=== PATIENT | female | born 1955 | race Caucasian/White ===

== ENCOUNTER 2017-06-13 11:06 | Outpatient (RCR) | payer OTHER, MEDICAID, SELFPAY ==
--- NOTE | 2017-06-12 15:16 | PT.OTN ---
On June 12, 2017 our therapy services consisting of Speech, Occupational, and Physical therapy transitioned from [employer] electronic documentation system to a new [employer] electronic system. All documentation prior to June 12 can be found under [employer] saved data. From June 12 forward, all medical record documentation will be in [employer] 6.1.
--- NOTE | 2017-06-13 16:03 | PT.OTN ---
Current Diagnoses Chronic tension-type headache, not intractable (06/13/17) Other cervical disc degeneration, unspecified cervical region (06/13/17) Fibromyalgia (06/13/17) Physical Therapy Treatment Note PT-OP-A Visit Information Start: 06/13/17 14:13 Freq: Status: Active Protocol: Activity Type Activity Date Activity User E-Sign Co-Sign Detail Recorded Client Recorded Date Recorded By Document 06/13/17 14:16 AMB [email or web address] 06/13/17 14:17 AMB 06/13/17 14:16 Out-Patient Physical Therapy Visit Information [Visit Information] -Visit Type Treatment Note -Visit Start Time 11:25 -Visit Stop Time 12:05 -Total Visit Minutes 40 -Visit Number 16 [Evaluation Information] -Evaluation Date 03/29/17 PT-OP-C Subjective Start: 06/13/17 14:13 Freq: Status: Active Protocol: Activity Type Activity Date Activity User E-Sign Co-Sign Detail Recorded Client Recorded Date Recorded By Document 06/13/17 14:20 AMB [email or web address] 06/13/17 14:25 AMB 06/13/17 14:20 OP-PT Subjective [Patient Comments] -Patient Comments The patient states her headaches are better, but her neck pain continues. She has a new caregiver and had to explain a lot to her yesterday which increased her pain. OP-PT Pain Assessment [Location] 1 -Pain Location Details C5-T2 -Intensity 5 -Scale Used Numeric (1 - 10 ) -Description- Other Pain at worst: 6, at best 1-2 PT-OP-F Manual Assessment Start: 06/13/17 14:13 Freq: Status: Active Protocol: Activity Type Activity Date Activity User E-Sign Co-Sign Detail Recorded Client Recorded Date Recorded By Document 06/13/17 15:58 AMB [email or web address] 06/13/17 16:03 AMB 06/13/17 15:58 Manual Assessments [Soft Tissue Assessment] -Soft Tissue Mobility Assessment Tenderness and tightness throughout posterior cervical and scapular muscles. PT-OP-J Posture/Palpation/Skin Start: 06/13/17 14:13 Freq: Status: Active Protocol: Activity Type Activity Date Activity User E-Sign Co-Sign Detail Recorded Client Recorded Date Recorded By Document 06/13/17 15:58 AMB [email or web address] 06/13/17 16:03 AMB 06/13/17 15:58 Posture Evaluation [Position] Sitting -Head/C-Spine Posture Forward Head PT-OP-K Range of Motion Start: 06/13/17 14:13 Freq: Status: Active Protocol: Activity Type Activity Date Activity User E-Sign Co-Sign Detail Recorded Client Recorded Date Recorded By Document 06/13/17 15:31 AMB [email or web address] 06/13/17 15:34 AMB 06/13/17 15:31 Cervical Spine Range of Motion [Cervical Spine] Active Degrees -Testing Position Sitting -Flexion 40 -Extension 30 -Rotation Left 55 -Rotation Right 55 -ROM Limitations Soft Tissue Tightness PT-OP-Q Treatments Start: 06/13/17 14:13 Freq: Status: Active Protocol: Activity Type Activity Date Activity User E-Sign Co-Sign Detail Recorded Client Recorded Date Recorded By Document 06/13/17 15:40 AMB [email or web address] 06/13/17 15:58 AMB 06/13/17 15:40 Therapeutic Exercises [Sitting Exercises] 2 -Sitting Exercise Name levator scapula stretch -Reps/Minutes 30seconds x 2 1 -Sitting Exercise Name cervical isometrics -Side bilateral -Resistance 25% -Reps/Minutes 10 minutes -Comments flexion, extension, sidebending, rotation Manual Therapy Treatment [Soft Tissue Mobilization] 1 -Body Location Cervical spine -Mobilization Type Myofascial Release -Intensity/Depth Moderate -Body Position Sitting [Joint Mobilizations] 1 -Joint C5-T2 -Direction PA -Grade III -Body Position Sitting PT-OP-T Assessment and Plan Start: 06/13/17 14:13 Freq: Status: Active Protocol: Activity Type Activity Date Activity User E-Sign Co-Sign Detail Recorded Client Recorded Date Recorded By Document 06/13/17 14:25 AMB [email or web address] 06/13/17 14:32 AMB 06/13/17 14:25 Physical Therapy Assessment [Goals] 4 -Impairment HEP -Short Term Goal (STG) Partially met 3 -Impairment Posture -Short Term Goal (STG) Met 2 -Impairment Headaches -Short Term Goal (STG) Met 1 -Impairment ROM -Short Term Goal (STG) Not met [Assessment Summary] -Assessment The patient has improved slightly, but lately has plateaued. She finds it difficult to perform some exercises. She is hoping to improve her function with massage therapy . Physical Therapy Plan [Discharge Physical Therapy] -Discharge Comments End of insurance authorization
== END 2017-07-18 16:23 ==
LOC: PHYS 11:06
PROVIDERS: Family Provider Internal Medicine; PCP Internal Medicine; Visit Provider Internal Medicine
DX: M50.30 Other cervical disc degeneration, unspecified cervical region (principal); G44.229 Chronic tension-type headache, not intractable; M79.7 Fibromyalgia
CPT/HCPCS: 97110; 97140

== ENCOUNTER → 2017-08-02 12:00 | Oncology outpatient (ONC) | payer OTHER, SELFPAY ==
[2017-07-30 11:28] VITALS: BP 131/79; PULSE 76; RESP 18; TEMP 36.6
[2017-07-30] MEDS: METOCLOPRAMIDE 10 MG in SODIUM CHLORIDE 0.9% 50 ML 208 ML IV (11:51)
[2017-07-30] MEDS: DIHYDROERGOTAMINE 1 MG/ML AMPUL IV (12:41)
[2017-07-30] MEDS: VALPROIC ACID 1,000 MG in SODIUM CHLORIDE 0.9% 50 ML 60 ML IV (13:06)
[2017-07-30] MEDS: PRAMIPEXOLE 0.25 MG TABLET 0.75 MG PO (14:15)
[2017-07-30] MEDS: MAGNESIUM SULFATE 1 GM in SODIUM CHLORIDE 0.9% 100 ML 102 ML IV (14:43)
[2017-07-31 13:18] VITALS: BP 140/76; PULSE 83; RESP 16; TEMP 36.8; O2SAT 97
[2017-07-31] MEDS: METOCLOPRAMIDE 10 MG in SODIUM CHLORIDE 0.9% 50 ML 208 ML IV (13:23)
[2017-07-31] MEDS: DIHYDROERGOTAMINE 1 MG/ML AMPUL IV (14:09)
[2017-07-31] MEDS: VALPROIC ACID 1,000 MG in SODIUM CHLORIDE 0.9% 50 ML 60 ML IV (14:16)
[2017-07-31] MEDS: PRAMIPEXOLE 0.25 MG TABLET 0.75 MG PO (14:46)
[2017-08-02 12:17] VITALS: BP 139/89; PULSE 85; RESP 16; TEMP 37.3
[2017-08-02] MEDS: METOCLOPRAMIDE 10 MG in SODIUM CHLORIDE 0.9% 50 ML 208 ML IV (12:36)
[2017-08-02] MEDS: DIHYDROERGOTAMINE 1 MG/ML AMPUL IV (13:19)
[2017-08-02] MEDS: VALPROIC ACID 1,000 MG in SODIUM CHLORIDE 0.9% 50 ML 60 ML IV (13:29)
== END ==
PROVIDERS: Family Provider Internal Medicine; PCP Internal Medicine; Visit Provider Specialist
DX: G43.711 Chronic migraine without aura, intractable, with status migrainosus (principal); E86.9 Volume depletion, unspecified; R11.2 Nausea with vomiting, unspecified
CPT/HCPCS: 96365; 96367; 96374; 96375; J1110; J2765; J3475

== ENCOUNTER 2017-08-10 21:19 | Emergency (ER) | payer OTHER, MEDICAID, SELFPAY ==
[2017-08-10 21:32] VITALS: BP 131/70; PULSE 83; RESP 15; TEMP 36.8; O2SAT 98; BMI 26.9
--- NOTE | 2017-08-10 22:06 | ED.HA ---
HPI - Headache General Chief Complaint: Headache Stated Complaint: migraine Time Seen by Provider: 08/10/17 22:06 Source: patient and family Mode of arrival: ambulatory Limitations: no limitations History of Present Illness HPI Narrative: 61-year-old female with extensive history of chronic headaches, under the management of local headache specialists presents with a typical migraine for which is global in nature and gradual in onset in the absence of other neurologic symptoms such as blurred vision, numbness, tingling or weakness. Patient receives IV infusions an outpatient basis and has recently had dihydroergotamine as well as magnesium. She has recently run out of her sumatriptan and. Complaint: headache and migraine Onset (ago): day(s) Onset description: gradual Severity: severe Quality: aching and throbbing Relieving factors: nothing Exacerbating factors: none Treatments prior to arrival: migraine medication Related Data Home Medications Medication Instructions Recorded Confirmed estradiol 0.25 mg PO Q DAY #0 06/22/10 08/06/17 omeprazole 40 mg PO BID #0 11/11/10 08/06/17 pramipexole [Mirapex] 0.75 mg PO HS #0 08/30/16 08/06/17 ibuprofen 800 mg tablet 800 mg PO TID 06/18/17 08/06/17 vitamin B complex tablet 1 tab PO DAILY 08/06/17 08/06/17 Previous Rx's Medication Instructions Recorded diazepam 5 mg OR BIDP PRN #60 tab 04/19/17 trazodone 100 - 150 mg PO HS #45 tab 05/31/17 lamotrigine 100 mg tablet 100 mg PO Q DAY #30 tab 07/17/17 gabapentin 600 mg tablet 600 mg PO QIDP PRN #120 tab 07/24/17 sumatriptan 25 mg tablet 25 mg PO .COMPLEX #12 tab 07/24/17 sertraline 100 mg tablet See Label Instructions PO DAILY 07/27/17 #30 tab sumatriptan succinate 25 mg PO Q2-4H PRN #20 tab 08/10/17 Allergies Allergy/AdvReac Type Severity Reaction Status Date / Time Penicillins [PENICILLINS] Allergy Severe RASH Verified 08/10/17 21:32 Sulfa (Sulfonamide Allergy Severe RASH Verified 08/10/17 21:32 Antibiotics) [SULFA (SULFONAMIDE ANTIBIOTICS)] sulfamethoxazole Allergy Intermediate RASH Verified 08/10/17 21:32 [From SEPTRA] trimethoprim [From SEPTRA] Allergy Intermediate RASH Verified 08/10/17 21:32 azithromycin Allergy Unknown Verified 08/10/17 21:32 [From ZITHROMAX Z-MARILYN] morphine [MORPHINE] Allergy Unknown FAINTED Verified 08/10/17 21:32 ciprofloxacin [From Cipro] Allergy Verified 08/10/17 21:32 Review of Systems Review of Systems All systems reviewed & are unremarkable except as noted in HPI and below Constitutional Denies chills, Denies fever(s), Reports headache(s), Denies lethargy and Denies weakness Eyes Denies change in vision, Denies eye discharge, Denies irritation and Denies loss of vision ENT Ears, Nose, Mouth, and Throat: Denies change in voice, Reports headache(s), Denies neck pain and Denies sore throat Cardiovascular Denies chest pain, Denies irregular heart rhythm, Denies lightheadedness, Denies palpitations, Denies dyspnea, Denies dyspnea on exertion and Denies orthopnea Respiratory Denies cough, Denies dyspnea, Denies dyspnea on exertion and Denies wheezing Gastrointestinal Gastrointestinal: Denies abdominal pain, Denies change in bowel habits, Denies diarrhea, Denies nausea and Denies vomiting Genitourinary Denies hematuria, Denies flank pain, Denies urinary incontinence and Denies urinary urgency Musculoskeletal Denies neck pain Integumentary/Breasts Denies pruritus, Denies erythema, Denies rash and Denies wounds Neurologic Denies confusion, Reports headache(s), Denies loss of vision and Denies weakness Psychiatric Denies anxiety, Denies confusion, Denies depression, Denies homicidal ideation and Denies suicidal ideation Endocrine Denies palpitations Hematologic/Lymphatic Denies easy bruising Allergic/Immunologic Denies wheezing [facility] Social History Smoking Status: Never smoker Exam Initial Vital Signs Initial Vital Signs: Vital Signs Temperature 98.2 F 08/10/17 21:32 Pulse Rate 83 08/10/17 21:32 Respiratory Rate 15 08/10/17 21:32 Blood Pressure 131/70 H 08/10/17 21:32 Pulse Oximetry 98 08/10/17 21:32 Const General: cooperative and well developed Nutritional Appearance: well nourished Orientation: alert, awake, oriented x3 and not confused HENOR Head: normocephalic and atraumatic Ears: external ears normal and TM's normal bilaterally Nose: external nose normal and No nasal discharge Face and sinus: sinuses nontender, face symmetric, no sinus tenderness and No dry mucous membranes Mouth: oral mucosae normal and moist mucous membranes Teeth and gingiva: dentition normal Throat: tonsils normal and uvula midline Eyes General: appearance normal, both eyes and all related structures Eyelids: eyelids normal Conjunctivae: conjunctivae normal Sclera: sclerae normal Pupils: PERRL EOM: EOM intact bilaterally Neck Neck: normal visual inspection, trachea midline, No lymphadenopathy, No midline deformity and No JVD Lymphatic: No lymphedema Chest Chest: normal inspection of the chest Resp Effort & Inspection: normal respiratory effort, able to speak in complete sentences, no respiratory distress and no use of accessory muscles Auscultation: clear to auscultation bilaterally, no rales, no rhonchi and no wheezes Cardio Rate: regular rate Rhythm: regular rhythm Heart Sounds: no click, no gallops, no murmurs and no rubs Pulses: normal peripheral pulses GI Inspection: non-distended Palpation: soft, no hepatosplenomegaly, No guarding, No pulsatile mass and No tender Auscultation: normal bowel sounds Back/Spine/Pelvis Back: No CVA tenderness Cervical Spine: cervical ROM normal and No pain with cervical ROM Thoracic/Lumbar Spine: thoracic and lumbar spine normal to inspection Skin General: no rashes or lesions noted, No jaundice and No petechiae Neuro General: alert, oriented x3, gait normal and no focal motor deficits Speech: speech normal Extrem General: full ROM, no clubbing, cyanosis or edema, no pedal edema and no calf tenderness Psych Appearance: well kempt Mental Status: mental status grossly normal Attitude: cooperative Thought Content: normal and suicidality Judgment: judgment good Course Orders Ordered: Discontinued Medications Dexamethasone (Decadron) 10 mg IV NOW ONE Stop: 08/10/17 22:17 Last Admin: 08/10/17 23:09 Dose: 10 mg Sodium Chloride (Normal Saline 0.9%) 1,000 mls @ 1,000 mls/hr IV BOLUS ONE Stop: 08/10/17 23:15 Last Infusion: 08/11/17 00:28 Dose: 0 mls/hr Admin: 08/10/17 23:09 Dose: 1,000 mls/hr Ketorolac Tromethamine (Toradol) 15 mg IV NOW ONE Stop: 08/10/17 22:17 Last Admin: 08/10/17 23:08 Dose: 15 mg Prochlorperazine (Compazine) 10 mg IV NOW ONE Stop: 08/10/17 22:19 Last Admin: 08/10/17 23:09 Dose: 10 mg Sumatriptan Succinate (Imitrex) 6 mg SUBCUT NOW ONE Stop: 08/10/17 22:50 Last Admin: 08/10/17 23:09 Dose: 6 mg Reevaluation(s) Reevaluation #1: Near complete resolution of symptoms after above-stated therapies Vital Signs - 8 hr 08/10/17 21:32 08/10/17 22:58 08/11/17 00:36 Temperature 98.2 F 98.0 F Pulse Rate 83 80 82 Respiratory Rate 15 16 18 Blood Pressure 131/70 H 130/60 H Blood Pressure [Left Arm] 124/55 H Pulse Oximetry 98 97 97 Discharge Plan Departure Patient Disposition: Home, Self-Care Clinical Impression: Migraine Discharge Date/Time: 08/11/17 00:38 Interventions: ED Discharge Assessment Last Done: 08/11/17 00:36 Instructions: DI for Migraine Activity Restrictions/Additional Instructions: There is no evidence of an emergent or life threatening illness at this time, but follow up with your doctor in 1-2 days is recommended nonetheless to continue to rule out serious underlying causes of your symptoms. Please call the office for an appointment. Please return to the Emergency Department for any worsening or persistent symptoms. Please take medications as directed. prescription for sumatriptan has been electronically transmitted to [facility] Prescriptions: New sumatriptan succinate 25 mg tablet 25 mg PO Q2-4H PRN (Reason: migraine headache) Qty: 20 RF: 0 No Action vitamin B complex [B Complex-Vitamin B12] tablet 1 tab PO DAILY RF: 0 estradiol 0.5 MG tablet 0.25 mg PO Q DAY Qty: 0 RF: 0 omeprazole 40 MG capsule,delayed release(DR/EC) 40 mg PO BID Qty: 0 RF: 0 pramipexole [Mirapex] 0.75 MG tablet 0.75 mg PO HS Qty: 0 RF: 0 diazepam 5 MG tablet 5 mg OR BIDP PRNQty: 60 RF: 1 trazodone 100 MG tablet 100 - 150 mg PO HS Qty: 45 RF: 2 lamotrigine [Lamictal] 100 mg tablet 100 mg PO Q DAY Qty: 30 RF: 1 gabapentin [Neurontin] 600 mg tablet 600 mg PO QIDP PRN (Reason: anxiety/sleep) Qty: 120 RF: 1 sertraline 100 mg tablet See Label Instructions PO DAILY Qty: 30 RF: 0 sumatriptan succinate 25 mg tablet 25 mg PO .COMPLEX Qty: 12 RF: 11 ibuprofen 800 mg tablet 800 mg PO TID RF: 0
[2017-08-10 22:58] VITALS: BP 124/55; PULSE 80; RESP 16; TEMP 36.7; O2SAT 97
[2017-08-10] MEDS: KETOROLAC 60 MG/2 ML VIAL 15 MG IV (23:08)
[2017-08-10] MEDS: DEXAMETHASONE 10 MG/ML VIAL IV (23:09)
[2017-08-10] MEDS: SODIUM CHLORIDE 0.9% 1,000 ML 1000 ML IV (23:09)
[2017-08-10] MEDS: SUMAtriptan 6 MG/0.5 ML VIAL SUBCUT (23:09)
[2017-08-10] MEDS: PROCHLORPERAZINE 10 MG/2 ML VIAL IV (23:09)
[2017-08-11 00:36] VITALS: BP 130/60; PULSE 82; RESP 18; O2SAT 97
== END 2017-08-11 00:38 | disposition home or self-care (01) ==
PROVIDERS: Emergency Provider Emergency Medicine; Family Provider Internal Medicine; PCP Internal Medicine
DX: G43.909 Migraine, unspecified, not intractable, without status migrainosus (principal)
CPT/HCPCS: 96361; 96374; 96375; 99283; 99284; J0780; J1100; J1885; J3030

== ENCOUNTER 2017-09-15 07:19 | Emergency (ER) | payer OTHER, MEDICAID, SELFPAY ==
[2017-09-15 07:43] VITALS: BP 146/97; PULSE 102; RESP 16; TEMP 36.4; O2SAT 100; BMI 26.2
[2017-09-15 07:55] VITALS: BP 146/97; PULSE 102; RESP 16; TEMP 36.4; O2SAT 100; BMI 26.2
[2017-09-15] MEDS: ACETAMINOPHEN 325 MG TABLET 975 MG PO (08:26)
[2017-09-15] MEDS: KETOROLAC 60 MG/2 ML VIAL 15 MG IV (08:27)
[2017-09-15] MEDS: HALOPERIDOL 5 MG/ML VIAL 2 MG IV (08:27)
[2017-09-15] MEDS: SODIUM CHLORIDE 0.9% 1,000 ML 1000 ML IV (08:42)
[2017-09-15] MEDS: MAGNESIUM SULFATE 2 GM in SODIUM CHLORIDE 0.9% 100 ML 52 ML IV (08:42)
[2017-09-15] MEDS: diphenhydrAMINE 50 MG/ML VIAL 25 MG IV (08:43)
[2017-09-15 09:00] VITALS: BP 133/73; PULSE 79; RESP 16; O2SAT 98
--- NOTE | 2017-09-15 09:41 | ED.HA ---
HPI - Headache General Chief Complaint: Headache Stated Complaint: ongoing migraine, cervical spine killing her Time Seen by Provider: 09/15/17 07:21 History of Present Illness HPI Narrative: HPI 61-year-old female with a history of chronic headaches presents with unchanged persistent headache despite home medications. Patient reports of this headache is been present for several months, has had ongoing evaluation by her PCP, with a negative prior MRI, and a pending referral to neurology. Patient states that she has a pending MRI of her cervical spine as she endorses long-standing cervical spine stiffness that is unchanged. Patient notes that she is hoping as part for presentation today she could expedite her MRI. * Denies changes in vision or hearing, fevers, neck stiffness, rashes, neck pain, temporal pain, jaw pain with chewing, dental pain, minor neck trauma, chiropractic manipulation, or head trauma. * Denies anticoagulation or hypercoaguable history. * No family members with similar symptoms. Unable to identify any higher risk exposures to possible carbon monoxide. M/S/F/SocHx notable for: please see HPI; remainder reviewed with patient and in chart. ROS: Negative constitutional, eye, cardiovascular, pulmonary, GI, , MSK, skin, neurologic, psychiatric, endocrine unless noted in the HPI. Exam Gen: Pleasant, non-toxic appearing, resting comfortably, accompanied by a small dog a service dog vest. HEENT: NC, AT. Dentition visually intact. No frontal or maxillary sinus TTP. Temples without TTP bilaterally. No paraspinal posterior neck pain. Neck supple without meningismus Resp: CTAB Card: RRR GI: NT/ND : Deferred MSK: No visible deformities, strength and tone WNL. Skin: Normal color with no visible lesions. Neuro: Gen AO x 3, no facial asymmetry, no gaze preference, no slurring of speech. CN II-III: pupils equal and reactive; III, IV, : EOMI, V1-V3: sensation to touch bilaterally intact; VII: no facial asymmetry (frown / smile); VIII: no nystagmus; X: phonation intact; XI: SCM 5/5 bilaterally, XII: tongue midline. Psych: Mood and affect appropriate. MDM Previous chart, nursing note, and vitals reviewed. A: 61-year-old female with a history of chronic headaches presents with unchanged persistent headache despite home medications. DDx: migraine / tension headache, cluster headache, sentinel bleed/SAH, infection (AUTOMOTIVE GLAZIER vs VILLAREAL secondary to non-AUTOMOTIVE GLAZIER focal infection), tumor/mass effect, hypertensive encephalopathy, glaucoma or iritis, idiopathic intracranial hypertension, cavernous sinus thrombosis, temporal arteritis. Evaluation: * Migraine / tension headache - suspect a migraine given the consistency of symptoms with prior headaches and the relative exclusion of the remainder of the differential. * Cluster - doubt cluster headache given the absence of unilateral symptoms, eye watering, swelling, or nasal congestion. * [place] bleed/SAH - Doubt given gradual onset. Given similarity of this headache with prior headaches will manage conservatively without imaging. * Infection - Given lack of rash, meningismus, or fever; doubt meningitis. Similarly the history and exam are without evidence of acute otitis media, sinusitis, dental abscesses or clinically significant dental caries. * Mass - Consider a tumor or mass to be unlikely given the lack of a gradual onset, positional component, or neurological deficits. * Hypertensive encephalopathy - BP within the brain's autoregulatory zone. * Glaucoma or iritis - As the patient is without reported vision changes, eye pain, and an occular exam without increases in pain on pupillary constriction further evaluation was not pursued. * Idiopathic Intracranial Hypertension - unlikely given the lack of visual symptoms, short duration of symptoms, lack of worsening with valsalva, or more prominent morning symptoms. * Thrombosis - given the lack of identifiable risk factors (preceding facial infection, fever, and hypercoagulability) as well as an absence of deficits on exam doubt both cavernous and venous sinus thrombosis. * Temporal Arteritis - given lack of temporally localized headache, temporal tenderness, absent history of jaw claudication or vision changes; doubt. ED Course: 1L NS, 15 mg Toradol, 25 mg diphenhydramine, 2 mg haloperidol, 2 g magnesium given for symptomatic treatment Disposition: discharge with PCP and/or neurology follow-up. Impression: headache. (please reference below for remainder of encounter information) Related Data Home Medications Medication Instructions Recorded Confirmed estradiol 0.25 mg PO Q DAY #0 06/22/10 08/16/17 omeprazole 40 mg PO BID #0 11/11/10 08/16/17 pramipexole [Mirapex] 0.75 mg PO HS #0 08/30/16 08/16/17 ibuprofen 800 mg tablet 800 mg PO TID 06/18/17 08/16/17 vitamin B complex tablet 1 tab PO DAILY 08/06/17 08/16/17 Previous Rx's Medication Instructions Recorded diazepam 5 mg OR BIDP PRN #60 tab 04/19/17 trazodone 100 - 150 mg PO HS #45 tab 05/31/17 lamotrigine 100 mg tablet 100 mg PO Q DAY #30 tab 07/17/17 gabapentin 600 mg tablet 600 mg PO QIDP PRN #120 tab 07/24/17 sertraline 100 mg tablet See Label Instructions PO DAILY 07/27/17 #30 tab baclofen 20 mg tablet 20 mg PO .COMPLEX #30 tab 08/16/17 erenumab-aooe 70 mg/mL 70 mg SUBCUT QMONTH #1 ml 08/16/17 subcutaneous auto-injector sumatriptan 6 mg/0.5 mL 6 mg SUBCUT .COMPLEX #6 unit 08/16/17 subcutaneous cartridge (refill) erenumab-aooe 70 mg/mL 70 mg SUBCUT QMONTH #1 ml 09/03/17 subcutaneous auto-injector ondansetron 8 mg disintegrating 8 mg PO .COMPLEX PRN #20 tab 09/03/17 tablet trazodone 150 mg tablet 75 mg PO DAILY #15 tab 09/03/17 divalproex 250 mg tablet,delayed 250 mg PO .See Instructions #60 tab 09/05/17 release prednisone 20 mg tablet 20 mg PO .COMPLEX #21 tab 09/06/17 topiramate 50 mg tablet 50 mg PO .COMPLEX #60 tab 09/06/17 mirtazapine 15 mg tablet 7.5 mg PO BEDTIME 30 Days #15 tab 09/13/17 Allergies Allergy/AdvReac Type Severity Reaction Status Date / Time Penicillins [PENICILLINS] Allergy Severe RASH Verified 09/15/17 08:54 Sulfa (Sulfonamide Allergy Severe RASH Verified 09/15/17 08:54 Antibiotics) [SULFA (SULFONAMIDE ANTIBIOTICS)] sulfamethoxazole Allergy Intermediate RASH Verified 09/15/17 08:54 [From SEPTRA] trimethoprim [From SEPTRA] Allergy Intermediate RASH Verified 09/15/17 08:54 azithromycin Allergy Unknown Verified 09/15/17 08:54 [From ZITHROMAX Z-MARILYN] morphine [MORPHINE] Allergy Unknown FAINTED Verified 09/15/17 08:54 ciprofloxacin [From Cipro] Allergy Verified 09/15/17 08:54 verapamil AdvReac Mild Hives Verified 09/15/17 08:54 zonisamide AdvReac Mild Fatigued Verified 09/15/17 08:54 PFS Social History Smoking Status: Never smoker Exam Initial Vital Signs Initial Vital Signs: Vital Signs Temperature 97.5 F L 09/15/17 07:43 Pulse Rate 102 H 09/15/17 07:43 Respiratory Rate 16 09/15/17 07:43 Blood Pressure 146/97 H 09/15/17 07:43 Pulse Oximetry 100 09/15/17 07:43 Course Orders Ordered: Magnesium Sulfate 2 gm/ Sodium (Chloride) 104 mls @ 52 mls/hr IV NOW ONE Stop: 09/15/17 10:29 Last Admin: 09/15/17 08:42 Dose: 52 mls/hr Discontinued Medications Acetaminophen (Tylenol) 975 mg PO NOW ONE Stop: 09/15/17 08:00 Last Admin: 09/15/17 08:26 Dose: 975 mg Diphenhydramine HCl (Benadryl) 25 mg IV NOW ONE Stop: 09/15/17 08:34 Last Admin: 09/15/17 08:43 Dose: 25 mg Haloperidol (Haldol) 2 mg IV NOW ONE Stop: 09/15/17 08:00 Last Admin: 09/15/17 08:27 Dose: 2 mg Magnesium Sulfate (Magnesium Sulfate) 2 gm in 50 mls @ 25 mls/hr IV NOW ONE Stop: 09/15/17 09:58 Sodium Chloride (Normal Saline 0.9%) 1,000 mls @ 1,000 mls/hr IV BOLUS ONE Stop: 09/15/17 08:58 Last Admin: 09/15/17 08:42 Dose: 1,000 mls/hr Ketorolac Tromethamine (Toradol) 15 mg IV NOW ONE Stop: 09/15/17 08:00 Last Admin: 09/15/17 08:27 Dose: 15 mg Vital Signs - 8 hr 09/15/17 07:43 09/15/17 07:55 09/15/17 09:00 Temperature 97.5 F L 97.5 F L Pulse Rate 102 H 102 H 79 Respiratory Rate 16 16 16 Blood Pressure 146/97 H 146/97 H Blood Pressure [Right Arm] 133/73 H Pulse Oximetry 100 100 98 Discharge Plan Departure Prescriptions: No Action vitamin B complex [B Complex-Vitamin B12] tablet 1 tab PO DAILY RF: 0 estradiol 0.5 MG tablet 0.25 mg PO Q DAY Qty: 0 RF: 0 omeprazole 40 MG capsule,delayed release(DR/EC) 40 mg PO BID Qty: 0 RF: 0 pramipexole [Mirapex] 0.75 MG tablet 0.75 mg PO HS Qty: 0 RF: 0 diazepam 5 MG tablet 5 mg OR BIDP PRNQty: 60 RF: 1 trazodone 100 MG tablet 100 - 150 mg PO HS Qty: 45 RF: 2 lamotrigine [Lamictal] 100 mg tablet 100 mg PO Q DAY Qty: 30 RF: 1 gabapentin [Neurontin] 600 mg tablet 600 mg PO QIDP PRN (Reason: anxiety/sleep) Qty: 120 RF: 1 sertraline 100 mg tablet See Label Instructions PO DAILY Qty: 30 RF: 0 divalproex [Depakote] 250 mg tablet,delayed release (DR/EC) 250 mg PO .See Instructions Qty: 60 RF: 5 mirtazapine [Remeron] 15 mg tablet 7.5 mg PO BEDTIME 30 Days Qty: 15 RF: 2 ibuprofen 800 mg tablet 800 mg PO TID RF: 0 sumatriptan succinate 6 mg/0.5 mL cartridge 6 mg SUBCUT .COMPLEX Qty: 6 RF: 11 baclofen 20 mg tablet 20 mg PO .COMPLEX Qty: 30 RF: 5 erenumab-aooe [Aimovig Autoinjector] 70 mg/mL auto-injector 70 mg SUBCUT QMONTH Qty: 1 RF: 12 erenumab-aooe [Aimovig Autoinjector] 70 mg/mL auto-injector 70 mg SUBCUT QMONTH Qty: 1 RF: 0 ondansetron [Zofran ODT] 8 mg tablet,disintegrating 8 mg PO .COMPLEX PRN (Reason: nausea) Qty: 20 RF: 11 trazodone 150 mg tablet 75 mg PO DAILY Qty: 15 RF: 1 prednisone 20 mg tablet 20 mg PO .COMPLEX Qty: 21 RF: 0 topiramate 50 mg tablet 50 mg PO .COMPLEX Qty: 60 RF: 5
[2017-09-15 09:59] VITALS: BP 133/73; PULSE 89; RESP 16; O2SAT 99
== END 2017-09-15 10:03 | disposition home or self-care (01) ==
PROVIDERS: Emergency Provider Emergency Medicine; PCP Internal Medicine
DX: R51 Headache (principal)
CPT/HCPCS: 96365; 96366; 96375; 99283; 99284; J1200; J1630; J1885; J3475

== ENCOUNTER → 2017-12-26 10:38 | Outpatient (CLI) | payer OTHER, MEDICAID, SELFPAY ==
--- NOTE | 2017-12-26 | DI.RAD.S_ITS ---
PROCEDURE: XR CHEST 2V INDICATIONS: PNEUMONIA DUE TO INFECTIOUS ORGANISM TECHNIQUE: 2 views of the chest were acquired. COMPARISON: [facility], , CHEST 1 VIEW, 11/30/2016, 19:23. FINDINGS: Surgical changes and devices: Plate and screw fixation of proximal left humerus Lungs and pleura: No pleural effusions or pneumothorax. Lungs are clear. Mediastinum: Mediastinal contours are normal. Heart size is normal. Bones and chest wall: No suspicious bony abnormalities. Soft tissues appear unremarkable. IMPRESSION: No acute disease. Dictated by: Jace Delarosa M.D. on 12/26/2017 at 12:30 Approved by: Jace Delarosa M.D. on 12/26/2017 at 12:31
== END ==
PROVIDERS: PCP Internal Medicine; Visit Provider Internal Medicine
DX: J18.9 Pneumonia, unspecified organism (principal); R06.2 Wheezing
CPT/HCPCS: 71046

== ENCOUNTER 2018-02-27 10:11 | Outpatient (CLI) | payer OTHER, MEDICAID, SELFPAY ==
[2018-02-27] VITALS (8 sets, daily range): BP systolic 123–142; BP diastolic 70–79; PULSE 69–82; RESP 16–20; TEMP 36.8; O2SAT 94–96
--- NOTE | 2018-02-27 10:11 | DI.RAD.S_ITS ---
PROCEDURE: PAIN C/T INTERLAMINAR INJECT INDICATIONS: SPINAL STENOSIS FINDINGS: Fluoroscopic spot filming was performed to verify placement of spinal needles at the C6-7 level(s), as labeled on the films. Appropriate location(s) of the needle tip(s) was confirmed by injection of iodinated contrast. Dictated by: Jace Delarosa M.D. on 02/27/2018 at 12:52 Approved by: Jace Delarosa M.D. on 02/27/2018 at 12:53
[2018-02-27] MEDS: fentaNYL 100 MCG/2 ML INJ IV (11:02)
[2018-02-27] MEDS: MIDAZOLAM 5 MG/5 ML VIAL IV (11:02)
[2018-02-27] MEDS: IOPAMIDOL 15 ML VIAL 3 ML INJ (11:06)
[2018-02-27] MEDS: DEXAMETHASONE 10 MG/ML VIAL 30 MG INJ (11:06)
[2018-02-27] MEDS: LIDOCAINE 1% 20 ML INJ 5 ML INJ (11:06)
--- NOTE | 2018-02-27 11:09 | PC.NURSE ---
assisting pt off table and transporting to post proc area. pt in stable condition
--- NOTE | 2018-02-27 11:13 | PM.PROC.1 ---
Procedures Date/Time Date of procedure: 02/27/18 Time of procedure: 11:13 General Procedure description: PREOP DIAGNOSIS 1. CERVICAL STENOSIS, 2. CERVICAL HNP WITH UPPER EXTREMITY RADICULAR FEATURES, POST OP DIAGNOSIS 1. CERVICAL STENOSIS, 2. CERVICAL HNP WITH UPPER EXTREMITY RADICULAR FEATURES, PROCEDURES 1. FLUORSCOPICALLY GUIDED CONTRAST CONTROLLED INTERLAMINAR EPIDURAL STEROID INJECTION - C6/7 TL OLIVA PHYSICIAN: Taye Medina, INDICATIONS Sheryl is referred by Dr. Brown for treatment of Cervical HNP with Upper Extremity Paresthesias. FINDINGS Cervical Stenosis due to disc deterioration and nerve root irritation and nerve root irritation DESCRIPTION OF PROCEDURE Fluoroscopically guided, contrast-controlled C6/7 translaminar epidural steroid injection with conscious sedation. Following denial of allergy and review of potential side effects and complications, including, but not necessarily limited to, infection, allergic reaction, local tissue breakdown, temporary as well as permanent nerve injury, stroke, paralysis, and possible , the patient indicated that patient understood and agreed to proceed. An informed consent document was signed by the patient, witnessed by a nurse, and placed in the patient's chart. Additionally, other treatment options including modalities, medications, and physical therapy were reviewed with the patient. After review of previous anaesthesic history and IV conscious sedation the patient was deemed safe to proceed with todays procedure with IV conscious sedation as ASA class II designation. Safety time-out was performed to confirm patient ID, procedure to be performed and site of procedure. IV sedation was accomplished with a combination of 5mg of Versed and 50mcg of Fentanyl administered by the RN after DO order, titrated to patient comfort during the course of the procedure while the patient remained responsive to all verbal commands. In the prone position, following sterile prep and drape of the cervical region, the C6/7 translaminar space was identified fluoroscopically. The skin was anesthetized via a 25-gauge 1.5-inch needle with 1% lidocaine solution. At this point, a 25-gauge, 2.5-inch short bevel spinal needle was atraumatically introduced and advanced under fluoroscopic guidance into epidural space at the C6/7 translaminar space. Depth was confirmed on lateral view. Radiological data, including multiple fluoroscopic views of the cervical spine, reveal a spinal needle at the C6/7 translaminar space. Lateral views then show placement of the needle in the epidural space. Subsequent views show contrast material flowing superiorly and inferiorly in the epidural space. DSA fluoroscopy with live contrast injection, once again, confirmed no vascular or intrathecal uptake. At this point, using loss of resistance technique with saline and air, the epidural space was entered. Following negative aspiration, injection of approximately 1.5 cc of Isovue-200 with live fluoroscopy in the AP view confirmed epidural flow in the epidural space without vascular or intrathecal uptake observed. Subsequently, a test dose of 1 cc of 1% lidocaine solution was injected and patient was observed for two minutes without signs or symptoms of complications, including abdominal pain, shortness of breath, bilateral upper or lower extremity weakness, nausea and vomiting, prior to steroid injection. At this point, 3 cc or 30 mg of dexamethasone was then injected without incident. The patient tolerated the procedure well without signs or symptoms of complications prior to being transferred to the recovery area for further monitoring, The patient was then transferred to the recovery area where they were observed for an appropriate period of time after the injection. The patient reported a VAS score of 6 prior to the procedure and a post-procedure VAS of 0. Total Fluoroscopy Time: 37.0 seconds Total Conscious Time: 24min POST OP INSTRUCTIONS The patient was provided a Pain Log to continue to record their response to the target-specific procedure prior to follow-up visit with the referring provider. Additionally, specific post-injection care instructions and a contact number to our office were provided if concerns arise regarding possible complications associated with the procedure are suspected. Taye Medina DO Complications: none
--- NOTE | 2018-02-27 11:38 | PC.NURSE ---
Pt returned from post procedure awake and able to move from W/C to chair without difficulty. Resumed monitoring from Tonya MORILLO.
--- NOTE | 2018-03-06 14:33 | PC.NURSE ---
pt seen by dr. matson today as a follow up related no clinic options. She is reporting a headache, Vital signs were obtained at T:98.5, Pulse 74, 95% 02 Room Air and 148/70 Blood pressure in her left arm. Pt alert and complaining of a headache. Neuro checks wnl.
== END 2018-02-27 11:48 ==
LOC: RAD 10:11
PROVIDERS: PCP Internal Medicine; Visit Provider Physical Medicine & Rehabilitation
DX: M50.123 Cervical disc disorder at C6-C7 level with radiculopathy (principal); M48.02 Spinal stenosis, cervical region; R20.2 Paresthesia of skin
CPT/HCPCS: 62321; 99152; J1100; J2250; J3010

== ENCOUNTER → 2018-03-29 11:13 | Outpatient (CLI) | payer OTHER, MEDICAID, SELFPAY ==
[2018-03-29 11:46] LABS: BUN Creatinine Ratio 14.3 (6-22); Blood Urea Nitrogen 10 mg/dL (7-17); Calcium 9.3 mg/dL (8.4-10.2); Carbon Dioxide 28 mmol/L (22-32); Chloride 100 mmol/L (98-107); Estimated Glomerular Filt Rate > 60.0 mL/min (>60); Glucose 79 mg/dL (80-110); HEMOLYSIS < 15 (0-50); Potassium 4.3 mmol/L (3.4-5.1); Sodium 136 mmol/L (137-145)
== END ==
PROVIDERS: PCP Internal Medicine; Visit Provider Internal Medicine
DX: R51 Headache (principal)
CPT/HCPCS: 36415; 80048

== ENCOUNTER 2018-04-22 22:53 | Emergency (ER) | payer OTHER, MEDICAID, SELFPAY ==
[2018-04-22 23:01] VITALS: BP 161/95; PULSE 84; RESP 16; TEMP 36.4; O2SAT 98
[2018-04-22 23:05] VITALS: PULSE 84; RESP 16; TEMP 36.4; O2SAT 98
[2018-04-22] MEDS: FAMOTIDINE 20 MG/50 ML PIGGYBACK 200 MG IV (23:22)
[2018-04-22] MEDS: EPINEPHrine 1 MG/ML AMPUL 0.5 MG IM (23:22)
[2018-04-22] MEDS: diphenhydrAMINE 50 MG/ML VIAL 25 MG IV (23:23)
[2018-04-22] MEDS: methylPREDNISolone 125 MG/2 ML VIAL IV (23:23)
[2018-04-22 23:47] VITALS: BP 134/77; PULSE 71; RESP 18; O2SAT 97
--- NOTE | 2018-04-23 00:26 | ED.ALLEREA ---
HPI - Allergic Reaction General Chief complaint: Allergic Reaction Stated complaint: ALLERGIC REACTION Time Seen by Provider: 04/22/18 23:00 Source: patient and family Mode of arrival: ambulatory Limitations: no limitations History of Present Illness HPI narrative: 62-year-old female nonsmoker with symptoms that remind her of prior allergic reactions including a fullness in her throat and wheezing. She denies any itchy rash abdominal pain diarrhea or vomiting. patient denies any new food, lotions, soaps but was recently exposed to an antibiotic which she thinks she is probably allergic to. She recently had a nasal septal surgery and had been placed on Keflex but was on prednisone as well until yesterday. Today she started developing the above-stated symptoms MD complaint: allergic reaction Onset (ago): hour(s) Exposure: medication Symptoms: difficulty swallowing and difficulty breathing Severity: mild Treatment prior to arrival: josesitoadryl Previous Allergic Reaction History: prior ED visit(s) Related Data Home Medications Medication Instructions Recorded Confirmed estradiol 0.25 mg PO Q DAY #0 06/22/10 04/05/18 pramipexole [Mirapex] 0.75 mg PO HS #0 08/30/16 04/05/18 ibuprofen 800 mg tablet 800 mg PO TID 06/18/17 04/05/18 vitamin B complex tablet 1 tab PO DAILY 08/06/17 04/05/18 cholecalciferol (vitamin D3) 4,000 8,000 unit PO DAILY cap 10/04/17 04/05/18 unit capsule levalbuterol HFA 45 mcg/actuation 2 inhalation INHALATION Q6H 12/31/17 04/05/18 aerosol inhaler omeprazole 20 mg capsule,delayed 20 mg PO DAILY 12/31/17 04/05/18 release Previous Rx's Medication Instructions Recorded ondansetron 8 mg disintegrating 8 mg PO .COMPLEX PRN #20 tab 09/03/17 tablet Disabled Parking Permit See Rx Instructions .ROUTE 09/26/17 .COMPLEX #1 each triamcinolone acetonide 0.025 % 1 applictn TOP BID #15 gram 10/16/17 topical cream ranitidine 150 mg tablet 150 mg PO DAILY #60 tab 11/14/17 diazepam 5 mg tablet 5 mg PO BIDP PRN #60 tab 11/20/17 lidocaine 5 % topical cream 1 applictn TOP QID PRN #45 gram 11/21/17 baclofen 20 mg tablet 20 mg PO .COMPLEX #30 tab 01/14/18 sertraline 50 mg tablet 50 mg PO DAILY #30 tab 01/29/18 sumatriptan 100 mg tablet 100 mg PO Q2-4H PRN #18 tab 01/31/18 sumatriptan 6 mg/0.5 mL 6 mg SUBCUT .COMPLEX #4 ml 01/31/18 subcutaneous pen injector lamotrigine 100 mg tablet 100 mg PO DAILY #30 tab 02/20/18 diclofenac potassium 50 mg oral 50 mg PO .COMPLEX #18 each 02/21/18 powder packet erenumab-aooe 70 mg/mL 140 mg SUBCUT QMONTH #2 ml 02/21/18 subcutaneous auto-injector trazodone 150 mg tablet 75 mg PO DAILY #15 tab 03/01/18 gabapentin 600 mg tablet 600 mg PO QIDP PRN #120 tab 03/05/18 tramadol 50 mg tablet 50 mg PO TID PRN #60 tab 03/22/18 methylprednisolone 4 mg tablets in See Rx Instructions PO PER PKG DIR 04/05/18 a dose pack #21 each methocarbamol 500 mg tablet 500 mg PO QID #30 tab 04/10/18 cyclobenzaprine 10 mg tablet 10 mg PO TID PRN #60 tab 04/11/18 methylprednisolone [Medrol (Juliocesar)] See Rx Instructions .ROUTE 04/23/18 .COMPLEX #21 each Allergies Allergy/AdvReac Type Severity Reaction Status Date / Time Penicillins [PENICILLINS] Allergy Severe Anaphylaxis Verified 04/05/18 10:48 Sulfa (Sulfonamide Allergy Severe RASH Verified 04/05/18 10:48 Antibiotics) [SULFA (SULFONAMIDE ANTIBIOTICS)] sulfamethoxazole Allergy Intermediate RASH Verified 04/05/18 10:48 [From SEPTRA] trimethoprim [From SEPTRA] Allergy Intermediate RASH Verified 04/05/18 10:48 azithromycin Allergy Unknown Verified 04/05/18 10:48 [From ZITHROMAX Z-JULIOCESAR] morphine [MORPHINE] Allergy Unknown Anaphylaxis Verified 04/05/18 10:48 ciprofloxacin [From Cipro] Allergy Verified 04/05/18 10:48 zonisamide AdvReac Intermediate rash Verified 04/05/18 10:48 verapamil AdvReac Mild Hives Verified 04/05/18 10:48 Review of Systems Constitutional Denies chills, Denies fever(s), Denies lethargy and Denies weakness Eyes Denies change in vision, Denies eye discharge, Denies irritation and Denies loss of vision ENT Ears, Nose, Mouth, and Throat: Denies change in voice, Denies neck pain, Denies sore throat and Reports throat swelling Cardiovascular Denies chest pain, Denies irregular heart rhythm, Denies lightheadedness, Denies palpitations, Denies dyspnea, Denies dyspnea on exertion and Denies orthopnea Respiratory Denies cough, Denies dyspnea, Denies dyspnea on exertion and Reports wheezing Gastrointestinal Gastrointestinal: Denies abdominal pain, Denies change in bowel habits, Denies diarrhea, Denies nausea and Denies vomiting Genitourinary Denies hematuria, Denies flank pain, Denies urinary incontinence and Denies urinary urgency Musculoskeletal Denies neck pain Integumentary/Breasts Denies pruritus, Denies erythema, Denies rash and Denies wounds Neurologic Denies confusion, Denies loss of vision and Denies weakness Psychiatric Denies anxiety, Denies confusion, Denies depression, Denies homicidal ideation and Denies suicidal ideation Endocrine Denies palpitations Hematologic/Lymphatic Denies easy bruising Allergic/Immunologic Reports throat swelling and Reports wheezing PFSH Medical History Anemia (Chronic) Anxiety (Chronic) Asthma (Chronic) Chronic back pain (Chronic) Chronic cough (Chronic) Depression (Chronic) Fibromyalgia (Chronic) Fractures (Chronic) GERD (gastroesophageal reflux disease) (Chronic) Recurrent sinusitis (Chronic) Femur fracture, left (Resolved) Surgical History Anesthesia (Resolved) History of eye surgery (Resolved ~1973) History of foot surgery (Resolved) History of hysterectomy (Resolved ~1979) History of shoulder surgery (Resolved ~2011) History of tonsillectomy (Resolved ~1975) Family History Mother Heart disease Social History marital status: number of children: 1 household members: none lives independently: Yes caregiver/support person: Yes (3 afternoons per week) pets and animals: Yes occupational status: disabled Smoking Status: Never smoker alcohol intake: never substance use type: does not use Family History Mother Heart disease Social History marital status: number of children: 1 household members: none lives independently: Yes caregiver/support person: Yes (3 afternoons per week) pets and animals: Yes occupational status: disabled Smoking Status: Never smoker alcohol intake: never substance use type: does not use Exam Narrative Exam Narrative: GENERAL: 62-year-old female appears younger than stated age, in mild distress with occasional bronchospastic cough HEAD: Atraumatic. Normocephalic. No temporal or scalp tenderness. EYES: Pupils equal round and reactive. Extraocular motions intact. No scleral icterus. No injection or drainage. ENT: Nose without bleeding, purulent drainage or septal hematoma. Throat without erythema, tonsillar hypertrophy or exudate. Uvula midline. Airway patent. NECK: Trachea midline. No JVD or lymphadenopathy. Supple, nontender, no meningeal signs. CARDIOVASCULAR: Regular rate and rhythm without murmurs, gallops, or rubs. RESPIRATORY: Clear to auscultation. Breath sounds equal bilaterally. No wheezes, rales, or rhonchi. GASTROINTESTINAL: Abdomen soft, non-tender, nondistended. No hepato-splenomegaly, or palpable masses. No guarding. EXTREMITIES: No clubbing, cyanosis, or edema. No joint tenderness, effusion, or edema noted. BACK: Nontender without deformity or crepitance. No flank tenderness. NEURO: AOx3. SKIN: No rash or erythema. Initial Vital Signs Initial Vital Signs: Vital Signs Temperature 97.6 F 04/22/18 23:01 Pulse Rate 84 04/22/18 23:01 Respiratory Rate 16 04/22/18 23:01 Blood Pressure 161/95 H 04/22/18 23:01 Pulse Oximetry 98 04/22/18 23:01 Course Orders Ordered: ED Orders 04/23/18 00:40 FLU A and B [Influenza A and B by PCR Rapid] Stat Discontinued Medications Diphenhydramine HCl (Benadryl) 25 mg IV NOW ONE Stop: 04/22/18 23:11 Last Admin: 04/22/18 23:23 Dose: 25 mg Epinephrine HCl (Adrenalin) 0.5 mg IM NOW ONE Stop: 04/22/18 23:11 Last Admin: 04/22/18 23:22 Dose: 0.5 mg Famotidine (Pepcid) 20 mg in 50 mls @ 200 mls/hr IV NOW ONE Stop: 04/22/18 23:24 Last Infusion: 04/22/18 23:53 Dose: 0 mls/hr Admin: 04/22/18 23:22 Dose: 200 mls/hr Methylprednisolone (Solu-Medrol 125 Mg Vial) 125 mg IV NOW ONE Stop: 04/22/18 23:11 Last Admin: 04/22/18 23:23 Dose: 125 mg Reevaluation(s) Reevaluation #1: patient feeling well. Vital Signs - 8 hr 04/22/18 23:01 04/22/18 23:05 04/22/18 23:47 Temperature 97.6 F 97.6 F Pulse Rate 84 84 71 Respiratory Rate 16 16 18 Blood Pressure Blood Pressure [Right Arm] 161/95 H 134/77 Pulse Oximetry 98 98 97 04/23/18 01:07 04/23/18 01:26 Temperature Pulse Rate 82 83 Respiratory Rate 18 20 Blood Pressure 137/84 Blood Pressure [Right Arm] 137/88 Pulse Oximetry 96 95 MDM - Allergic Reaction Lab Data Lab Results 04/23/18 Range/Units 00:40 Influenza A & B (PCR) Negative (Negative) Discharge Plan Departure Patient Disposition: Home Clinical Impression: Allergic reaction Qualifiers: Encounter type: initial encounter Qualified Code(s): T78.40XA - Allergy, unspecified, initial encounter Discharge Date/Time: 04/23/18 01:27 Interventions: ED Discharge Assessment Last Done: 04/23/18 01:26 Instructions: DI for Adverse Drug Reaction -- Allergic Activity Restrictions/Additional Instructions: *You have been diagnosed with [ allergic reaction ] *What to do: *Take medications as directed, including [id number] medications such as Benadryl and Pepcid as well as the prescription provided. Your prescription for a Medrol Dose Pack (steroid) has been electronically transmitted to [facility] at your request. *Follow up with your primary care provider in 2-3 days, call for an appointment. Let them know you were seen in the Emergency Department and that we ask that you be seen in follow up *Return to ER if you should have any new, worsening or concerning symptoms Prescriptions: New methylprednisolone [Medrol (Juliocesar)] 4 mg tablets,dose pack See Rx Instructions .ROUTE .COMPLEX Qty: 21 RF: 0 No Action cholecalciferol (vitamin D3) 4,000 unit capsule 8,000 unit PO DAILY RF: 0 vitamin B complex [B Complex-Vitamin B12] tablet 1 tab PO DAILY RF: 0 diazepam 5 mg tablet 5 mg PO BIDP PRN (Reason: anxiety/sleep) Qty: 60 RF: 2 estradiol 0.5 MG tablet 0.25 mg PO Q DAY Qty: 0 RF: 0 pramipexole [Mirapex] 0.75 MG tablet 0.75 mg PO HS Qty: 0 RF: 0 Disabled Parking Permit See Rx Instructions .Route .COMPLEX Qty: 1 RF: 0 lidocaine 5 % cream 1 applictn TOP QID PRN (Reason: pain) Qty: 45 RF: 5 baclofen 20 mg tablet 20 mg PO .COMPLEX Qty: 30 RF: 5 sertraline 50 mg tablet 50 mg PO DAILY Qty: 30 RF: 0 sumatriptan succinate 100 mg tablet 100 mg PO Q2-4H PRN (Reason: migraine headache) Qty: 18 RF: 11 sumatriptan succinate 6 mg/0.5 mL pen injector 6 mg SUBCUT .COMPLEX Qty: 4 RF: 11 lamotrigine 100 mg tablet 100 mg PO DAILY Qty: 30 RF: 2 diclofenac potassium [Cambia] 50 mg powder in packet 50 mg PO .COMPLEX Qty: 18 RF: 12 trazodone 150 mg tablet 75 mg PO DAILY Qty: 15 RF: 2 gabapentin [Neurontin] 600 mg tablet 600 mg PO QIDP PRN (Reason: anxiety/sleep) Qty: 120 RF: 1 tramadol 50 mg tablet 50 mg PO TID PRN (Reason: pain) Qty: 60 RF: 1 methocarbamol [Robaxin] 500 mg tablet 500 mg PO QID Qty: 30 RF: 0 cyclobenzaprine 10 mg tablet 10 mg PO TID PRN (Reason: muscle spasm) Qty: 60 RF: 1 triamcinolone acetonide 0.025 % cream 1 applictn TOP BID Qty: 15 RF: 0 ranitidine HCl [Acid Control (ranitidine)] 150 mg tablet 150 mg PO DAILY Qty: 60 RF: 1 ketorolac 15 mg/mL solution 15 mg IM ONCE Qty: 60 RF: 0 dihydroergotamine 1 mg/mL solution 1 mg IM ONCE Qty: 1 RF: 0 erenumab-aooe [Aimovig Autoinjector (2 Pack)] 70 mg/mL auto-injector 140 mg SUBCUT QMONTH Qty: 2 RF: 11 ibuprofen 800 mg tablet 800 mg PO TID RF: 0 ondansetron [Zofran ODT] 8 mg tablet,disintegrating 8 mg PO .COMPLEX PRN (Reason: nausea) Qty: 20 RF: 11 levalbuterol tartrate [Xopenex HFA] 45 mcg/actuation HFA aerosol inhaler 2 inhalation INHALATION Q6H RF: 0 omeprazole 20 mg capsule,delayed release(DR/EC) 20 mg PO DAILY RF: 0 methylprednisolone [Medrol (Juliocesar)] 4 mg tablets,dose pack See Rx Instructions PO PER PKG DIR Qty: 21 RF: 0 ketorolac 15 mg/mL solution 60 mg IM ONCE Qty: 4 RF: 0 dihydroergotamine 1 mg/mL solution 1 mg IM ONCE Qty: 1 RF: 0 Referrals: Donavon Brown MD [Primary Care Provider] -
[2018-04-23 01:07] VITALS: BP 137/88; PULSE 82; RESP 18; O2SAT 96
[2018-04-23 01:14] LABS: Influenza A and B by PCR Rapid Negative (Negative)
[2018-04-23 01:26] VITALS: BP 137/84; PULSE 83; RESP 20; O2SAT 95
== END 2018-04-23 01:27 | disposition home or self-care (01) ==
PROVIDERS: Emergency Provider Emergency Medicine; PCP Internal Medicine
DX: T78.40XA Allergy, unspecified, initial encounter (principal)
CPT/HCPCS: 36591; 87400; 96365; 96372; 96374; 96375; 99283; 99284; J0171; J1200; J2930

== ENCOUNTER → 2018-05-20 11:10 | Outpatient (CLI) | payer OTHER, MEDICAID, SELFPAY ==
[2018-05-20 12:11] LABS: Add Manual Diff / Slide Review NO; Basophils Absolute Auto 100 /uL (0-100); Basophils Percent Auto 1.2 % (0-2); Eosinophils Absolute Auto 100 /uL (0-450); Eosinophils Percent Auto 1.5 % (2-4); Hematocrit 38.2 % (36-46); Hemoglobin 12.9 g/dL (12.0-16.0); Lymphocytes Absolute Auto 1900 /uL (1100-4500); Lymphocytes Percent Auto 34.9 % (25-40); Mean Corpuscular HGB Conc 33.7 % (30-36); Mean Corpuscular Hemoglobin 30.9 PG (26-34); Mean Corpuscular Volume 91.6 fL (80-100); Monocytes Absolute Auto 400 /uL (0-900); Monocytes Percent Auto 7.6 % (3-14); Neutrophils Absolute Auto 3000 /uL (1500-7000); Neutrophils Percent Auto 54.8 % (50-75); Platelet Count 266 X10^3/uL (150-400); Red Blood Cell Count 4.17 X10^6/uL (4.0-5.2); Red Cell Distribution Width 13.4 % (11.6-14.8); White Blood Cell Count 5.4 X10^3/uL (4.5-11.0)
== END ==
PROVIDERS: PCP Internal Medicine; Visit Provider Internal Medicine
DX: D64.9 Anemia, unspecified (principal); J32.4 Chronic pansinusitis
CPT/HCPCS: 36415; 85025

== ENCOUNTER → 2018-05-30 11:40 | Outpatient (CLI) | payer OTHER, MEDICAID, SELFPAY | PROVIDERS: PCP Internal Medicine; Visit Provider Physical Medicine & Rehabilitation | DX: M48.02 Spinal stenosis, cervical region (principal); M47.812 Spondylosis without myelopathy or radiculopathy, cervical region | CPT/HCPCS: 95885; 95886; 95912 ==

== ENCOUNTER 2018-06-08 12:05 | Emergency (ER) | payer OTHER, MEDICAID, SELFPAY ==
[2018-06-08 12:11] VITALS: BP 155/84; PULSE 79; RESP 18; TEMP 36.6; O2SAT 98; BMI 29.9
--- NOTE | 2018-06-08 12:46 | ED_ITS ---
HPI - Headache General Chief Complaint: Headache Stated Complaint: HEADACHE X SEVERAL MONTHS Time Seen by Provider: 06/08/18 12:11 Source: patient Mode of arrival: ambulatory Limitations: no limitations History of Present Illness HPI Narrative: Patient is a 62-year-old female presenting with headache. She has a history of migraine headache she has a headache every single day for the past few months. She seen by the headache clinic and many other specialist. She was put on sumatriptan daily which he said started not working this week. She got DHE this week apparently as well. She is wanting a dip location other than sumatriptan to help with her headaches. She says she has chronic hand tingling, which she says is from her neck. Bilateral. No lower extremity weakness.She was actually seen on 06/04/2018 her she got a Toradol injection. She said it did not help. She is sensitive to light MD Complaint: headache and migraine Related Data Home Medications Medication Instructions Recorded Confirmed estradiol 0.25 mg PO Q DAY #0 06/22/10 05/29/18 pramipexole [Mirapex] 0.75 mg PO HS #0 08/30/16 05/29/18 ibuprofen 800 mg tablet 800 mg PO TID 06/18/17 05/29/18 vitamin B complex tablet 1 tab PO DAILY 08/06/17 05/29/18 cholecalciferol (vitamin D3) 4,000 8,000 unit PO DAILY cap 10/04/17 05/29/18 unit capsule levalbuterol HFA 45 mcg/actuation 2 inhalation INHALATION Q6H 12/31/17 05/29/18 aerosol inhaler omeprazole 20 mg capsule,delayed 20 mg PO DAILY 12/31/17 05/29/18 release methocarbamol 500 mg tablet 500 mg PO TID PRN 05/28/18 05/28/18 oxycodone 5 mg capsule 5 mg PO Q4-6H PRN 05/29/18 05/29/18 Previous Rx's Medication Instructions Recorded ondansetron 8 mg disintegrating 8 mg PO .COMPLEX PRN #20 tab 09/03/17 tablet Disabled Parking Permit See Rx Instructions .ROUTE 09/26/17 .COMPLEX #1 each triamcinolone acetonide 0.025 % 1 applictn TOP BID #15 gram 10/16/17 topical cream ranitidine 150 mg tablet 150 mg PO DAILY #60 tab 11/14/17 diazepam 5 mg tablet 5 mg PO BIDP PRN #60 tab 11/20/17 lidocaine 5 % topical cream 1 applictn TOP QID PRN #45 gram 11/21/17 baclofen 20 mg tablet 20 mg PO .COMPLEX #30 tab 01/14/18 sumatriptan 6 mg/0.5 mL 6 mg SUBCUT .COMPLEX #4 ml 01/31/18 subcutaneous pen injector diclofenac potassium 50 mg oral 50 mg PO .COMPLEX #18 each 02/21/18 powder packet erenumab-aooe 70 mg/mL 140 mg SUBCUT QMONTH #2 ml 02/21/18 subcutaneous auto-injector tramadol 50 mg tablet 50 mg PO TID PRN #60 tab 03/22/18 cyclobenzaprine 10 mg tablet 10 mg PO TID PRN #60 tab 04/11/18 methylprednisolone [Medrol (Juliocesar)] See Rx Instructions .ROUTE 04/23/18 .COMPLEX #21 each mirtazapine 15 mg tablet 15 mg PO DAILY #30 tab 05/27/18 rizatriptan 10 mg tablet 10 mg PO .COMPLEX PRN #12 tab 06/05/18 gabapentin 600 mg tablet 600 mg PO QID PRN #120 tab 06/06/18 Allergies Allergy/AdvReac Type Severity Reaction Status Date / Time Penicillins [PENICILLINS] Allergy Severe Anaphylaxis Verified 06/08/18 12:29 Sulfa (Sulfonamide Allergy Severe RASH Verified 06/08/18 12:29 Antibiotics) [SULFA (SULFONAMIDE ANTIBIOTICS)] sulfamethoxazole Allergy Intermediate RASH Verified 06/08/18 12:29 [From SEPTRA] trimethoprim [From SEPTRA] Allergy Intermediate RASH Verified 06/08/18 12:29 azithromycin Allergy Unknown Verified 06/08/18 12:29 [From ZITHROMAX Z-JULIOCESAR] morphine [MORPHINE] Allergy Unknown Anaphylaxis Verified 06/08/18 12:29 ciprofloxacin [From Cipro] Allergy Verified 06/08/18 12:29 zonisamide AdvReac Intermediate rash Verified 06/08/18 12:29 verapamil AdvReac Mild Hives Verified 06/08/18 12:29 Review of Systems Review of Systems ROS Unobtainable: All systems reviewed & are unremarkable except as noted in HPI and below Constitutional Denies chills, Denies fever(s), Reports headache(s), Denies lethargy and Denies weakness ENT Ears, Nose, Mouth, and Throat: Denies change in voice, Reports headache(s), Reports neck pain (chronic seen by neuro surgery in [place], referred back to Dr. Medina) and Denies sore throat Cardiovascular Denies chest pain, Denies irregular heart rhythm, Denies lightheadedness, Denies palpitations, Denies dyspnea, Denies dyspnea on exertion and Denies orthopnea Respiratory Denies cough, Denies dyspnea, Denies dyspnea on exertion and Denies wheezing Gastrointestinal Gastrointestinal: Denies abdominal pain, Denies change in bowel habits, Denies diarrhea, Denies nausea and Denies vomiting Genitourinary Denies hematuria, Denies flank pain, Denies urinary incontinence and Denies urinary urgency Musculoskeletal Reports neck pain (chronic seen by neuro surgery in [place], referred back to Dr. Medina) and Reports tingling Integumentary/Breasts Denies pruritus, Denies erythema, Denies rash and Denies wounds Neurologic Reports headache(s), Reports tingling, Reports paresthesias and Denies weakness Endocrine Denies palpitations Allergic/Immunologic Denies wheezing [facility] Medical History Anemia (Chronic) Anxiety (Chronic) Asthma (Chronic) Chronic back pain (Chronic) Chronic cough (Chronic) Depression (Chronic) Fibromyalgia (Chronic) Fractures (Chronic) GERD (gastroesophageal reflux disease) (Chronic) Recurrent sinusitis (Chronic) Femur fracture, left (Resolved) Surgical History Anesthesia (Resolved) History of eye surgery (Resolved ~1973) History of foot surgery (Resolved) History of hysterectomy (Resolved ~1979) History of shoulder surgery (Resolved ~2011) History of tonsillectomy (Resolved ~1975) Family History Mother Heart disease Social History marital status: number of children: 1 household members: none lives independently: Yes caregiver/support person: Yes (3 afternoons per week) pets and animals: Yes occupational status: disabled Smoking Status: Never smoker alcohol intake: never substance use type: does not use Family History Mother Heart disease Social History marital status: number of children: 1 household members: none lives independently: Yes caregiver/support person: Yes (3 afternoons per week) pets and animals: Yes occupational status: disabled Smoking Status: Never smoker alcohol intake: never substance use type: does not use Exam Initial Vital Signs Initial Vital Signs: Vital Signs Temperature 97.9 F 06/08/18 12:11 Pulse Rate 79 06/08/18 12:11 Respiratory Rate 18 06/08/18 12:11 Blood Pressure 155/84 H 06/08/18 12:11 Pulse Oximetry 98 06/08/18 12:11 GENERAL: Alert elderly female sitting in a darkened room with her service dog and in no acute distress. HEENT: Head atraumatic,EOMI, pupils reactive, face symmetric CARDIOVASCULAR: Regular rate and rhythm without murmurs, rubs or gallops. RESPIRATORY: Breath sounds equal bilaterally, no wheezes rales or rhonchi. ABDOMEN: Soft, nontender. Normoactive bowel sounds all 4 quadrants. No guarding or rebound. EXTREMITIES: Normal range of motion, no clubbing or edema. Neurovascularly intact NEUROLOGICAL: Alert and oriented x4.Normal gait and speech. Cranial nerves II through XII grossly intact. upper extremities are noted to be equally weak, able to lift lower extremities without difficulty. SKIN: Warm, dry, no laceration, no petechiae, no rashes or lesions. Course Orders Ordered: ED Orders 06/08/18 12:49 CT head/brain wo con Stat Discontinued Medications Diphenhydramine HCl (Benadryl) 25 mg IV NOW ONE Stop: 06/08/18 12:50 Ketorolac Tromethamine (Toradol) 30 mg IV NOW ONE Stop: 06/08/18 12:50 Prochlorperazine (Compazine) 10 mg IV NOW ONE Stop: 06/08/18 12:50 Vital Signs - 8 hr 06/08/18 12:11 Temperature 97.9 F Pulse Rate 79 Respiratory Rate 18 Blood Pressure 155/84 H Pulse Oximetry 98 MDM - Headache Imaging Data CT scan - head: Radiologist's impression: PROCEDURE: CT HEAD/BRAIN WO CON INDICATIONS: worsening chronic headaches TECHNIQUE: Noncontrast 4.5 mm thick angled axial sections acquired from the foramen magnum to the vertex, with coronal and sagittal reformats. For radiation dose reduction, the following was used: automated exposure control, adjustment of mA and/or kV according to patient size. COMPARISON: [facility], MR, BRAIN WITH CONTRAST, 04/25/2017, 15:30. FINDINGS: Image quality: Excellent. CSF spaces: Basal cisterns are patent. No extra-axial fluid collections. Ventricles are normal in size and shape. Brain: No intracranial hemorrhage, mass, or mass effect. Ivey-white matter interface is preserved. Skull and face: Calvarium and visualized facial bones are intact, without suspicious lesions. Sinuses: Visualized sinuses and mastoids are clear. IMPRESSION: 1. No acute intracranial abnormality. Dictated by: Abimael Lyon M.D. on 06/08/2018 at 14:25 Approved by: Abimael Lyon M.D. on 06/08/2018 at 14:26 MDM Narrative Medical decision making narrative: Patient was unsure if she was going to get a ride. She was to get Benadryl Compazine Toradol in the migraine cocktail. A head CT was ordered for worsening chronic migraines. 1:07 p.m. I was in another room and informed after the fact by nurse that there was a problem with patient. She needed someone to watch her dog while she went to CT. Apparently nursing metal fabricating supervisor was called down he was unable to watch it while she went to head CT. At which point she got up and left. Patient returns found someone to watch her dog. Agreeable for head CT. Wanting something to drink asked if sumatriptan 2nd dose was reasonable. I recommended that he get IV and do migraine cocktail 1st. 2:15 p.m. nursing informed me again at that patient left after her head CT read not yet back. This time patient had no concerning symptoms. chronic ongoing headache. CT actually back 10 minutes after she left which is negative. Patient never returned. Head CT is negative. Patient has not returned. Discharge Plan Departure Patient Disposition: Left Against Medical Advice Clinical Impression: Patient left before treatment completed Headache Qualifiers: Headache type: other headache syndrome Qualified Code(s): G44.89 - Other headache syndrome Discharge Date/Time: 06/08/18 14:26 Interventions: ED Discharge Assessment Last Done: 06/08/18 14:25 Prescriptions: No Action cholecalciferol (vitamin D3) 4,000 unit capsule 8,000 unit PO DAILY RF: 0 vitamin B complex [B Complex-Vitamin B12] tablet 1 tab PO DAILY RF: 0 diazepam 5 mg tablet 5 mg PO BIDP PRN (Reason: anxiety/sleep) Qty: 60 RF: 2 methocarbamol [Robaxin] 500 mg tablet 500 mg PO TID PRNRF: 0 estradiol 0.5 MG tablet 0.25 mg PO Q DAY Qty: 0 RF: 0 pramipexole [Mirapex] 0.75 MG tablet 0.75 mg PO HS Qty: 0 RF: 0 Disabled Parking Permit See Rx Instructions .Route .COMPLEX Qty: 1 RF: 0 lidocaine 5 % cream 1 applictn TOP QID PRN (Reason: pain) Qty: 45 RF: 5 baclofen 20 mg tablet 20 mg PO .COMPLEX Qty: 30 RF: 5 sumatriptan succinate 6 mg/0.5 mL pen injector 6 mg SUBCUT .COMPLEX Qty: 4 RF: 11 diclofenac potassium [Cambia] 50 mg powder in packet 50 mg PO .COMPLEX Qty: 18 RF: 12 tramadol 50 mg tablet 50 mg PO TID PRN (Reason: pain) Qty: 60 RF: 1 cyclobenzaprine 10 mg tablet 10 mg PO TID PRN (Reason: muscle spasm) Qty: 60 RF: 1 mirtazapine [Remeron] 15 mg tablet 15 mg PO DAILY Qty: 30 RF: 11 rizatriptan 10 mg tablet 10 mg PO .COMPLEX PRN (Reason: migraine headache) Qty: 12 RF: 11 gabapentin [Neurontin] 600 mg tablet 600 mg PO QID PRN (Reason: anxiety/sleep) Qty: 120 RF: 0 triamcinolone acetonide 0.025 % cream 1 applictn TOP BID Qty: 15 RF: 0 ranitidine HCl [Acid Control (ranitidine)] 150 mg tablet 150 mg PO DAILY Qty: 60 RF: 1 methylprednisolone [Medrol (Juliocesar)] 4 mg tablets,dose pack See Rx Instructions .ROUTE .COMPLEX Qty: 21 RF: 0 ketorolac 15 mg/mL solution 15 mg IM ONCE Qty: 60 RF: 0 dihydroergotamine 1 mg/mL solution 1 mg IM ONCE Qty: 1 RF: 0 erenumab-aooe [Aimovig Autoinjector (2 Pack)] 70 mg/mL auto-injector 140 mg SUBCUT QMONTH Qty: 2 RF: 11 oxycodone 5 mg capsule 5 mg PO Q4-6H PRNRF: 0 ibuprofen 800 mg tablet 800 mg PO TID RF: 0 ondansetron [Zofran ODT] 8 mg tablet,disintegrating 8 mg PO .COMPLEX PRN (Reason: nausea) Qty: 20 RF: 11 levalbuterol tartrate [Xopenex HFA] 45 mcg/actuation HFA aerosol inhaler 2 inhalation INHALATION Q6H RF: 0 omeprazole 20 mg capsule,delayed release(DR/EC) 20 mg PO DAILY RF: 0 ketorolac 15 mg/mL solution 60 mg IM ONCE Qty: 4 RF: 0 dihydroergotamine 1 mg/mL solution 1 mg IM ONCE Qty: 1 RF: 0 ketorolac 15 mg/mL solution 30 mg IM ONCE Qty: 2 RF: 0 dihydroergotamine 1 mg/mL solution 1 mg IM ONCE Qty: 1 RF: 0 Stand Alone Forms: Against Medical Advice
--- NOTE | 2018-06-08 12:49 | DI.CT.S_ITS ---
PROCEDURE: CT HEAD/BRAIN WO CON INDICATIONS: worsening chronic headaches TECHNIQUE: Noncontrast 4.5 mm thick angled axial sections acquired from the foramen magnum to the vertex, with coronal and sagittal reformats. For radiation dose reduction, the following was used: automated exposure control, adjustment of mA and/or kV according to patient size. COMPARISON: [facility], MR, BRAIN WITH CONTRAST, 04/25/2017, 15:30. FINDINGS: Image quality: Excellent. CSF spaces: Basal cisterns are patent. No extra-axial fluid collections. Ventricles are normal in size and shape. Brain: No intracranial hemorrhage, mass, or mass effect. Ivey-white matter interface is preserved. Skull and face: Calvarium and visualized facial bones are intact, without suspicious lesions. Sinuses: Visualized sinuses and mastoids are clear. IMPRESSION: 1. No acute intracranial abnormality. Dictated by: Abimael Lyon M.D. on 06/08/2018 at 14:25 Approved by: Abimael Lyon M.D. on 06/08/2018 at 14:26
--- NOTE | 2018-06-08 13:05 | PC.NURSE ---
Pt leaving for CT. It is explained that no one was available to hold her service dog at this time and the scan would have to wait until someone was available. (Kobi [facility] circus train supervisor states he can return to do this after tending to floor business.) Pt jumps off stretcher and storms out of emergency department. Not saying anything to staff members. is aware.
--- NOTE | 2018-06-08 13:59 | PC.NURSE ---
Pt not in room, left department with dog. Pt is fully dressed. This is my 2nd attempt to start line. Pt is leaving room frequently with dog.
--- NOTE | 2018-06-08 14:08 | PC.NURSE ---
Pt has not returned to the room.
--- NOTE | 2018-06-08 14:12 | PC.NURSE ---
Pt Is not in department, unable to locate patient in parking lot.
== END 2018-06-08 14:26 | disposition left against medical advice (07) ==
PROVIDERS: Emergency Provider Emergency Medicine; PCP Internal Medicine
DX: G44.89 Other headache syndrome (principal); Z53.20 Procedure and treatment not carried out because of patient's decision for unspecified reasons
CPT/HCPCS: 70450; 99283; 99284

== ENCOUNTER → 2018-06-27 11:41 | Outpatient (CLI) | payer OTHER, MEDICAID, SELFPAY ==
[2018-06-27 13:18] LABS: Alanine Aminotransferase 32 IU/L (9-52); Albumin 4.1 g/dL (3.5-5.0); Albumin Globulin Ratio 1.5 (1.0-2.8); Alkaline Phosphatase 87 U/L (38-126); Aspartate Aminotransferase 32 IU/L (14-36); Bilirubin Total 0.3 mg/dL (0.2-1.3); Bilirubin Unconjugated 0.1 mg/dL (0.0-1.1); Globulin 2.7 g/dL (1.7-4.1); HEMOLYSIS < 15 (0-50); Total Protein 6.8 g/dL (6.3-8.2)
== END ==
PROVIDERS: PCP Internal Medicine; Visit Provider Internal Medicine
DX: G89.4 Chronic pain syndrome (principal)
CPT/HCPCS: 36415; 80076

== ENCOUNTER → 2018-06-27 12:00 | Outpatient (CLI) | payer OTHER, MEDICAID, SELFPAY ==
--- NOTE | 2018-06-27 | DI.RAD.S_ITS ---
PROCEDURE: XR CERVICAL SPINE 2V OR 3V INDICATIONS: HEADACHE TECHNIQUE: 3 view(s) of the cervical spine were acquired. COMPARISON: None. FINDINGS: Bones: No fractures or dislocations to the C7-T1 level. Degenerative endplate changes and decreased intervertebral disc space at C3-4 through C6-7 levels are seen more prominent at C5-6 level. The lateral masses of C1 appear intact on the odontoid view. No suspicious bony lesions. Soft tissues: No prevertebral soft tissue swelling. IMPRESSION: Degenerative disc disease throughout cervical spine as above. No acute compression fracture or spondylolisthesis. Dictated by: Rafat Hall M.D. on 06/27/2018 at 13:20 Approved by: Rafat Hall M.D. on 06/27/2018 at 13:21
== END ==
PROVIDERS: PCP Internal Medicine; Visit Provider Internal Medicine
DX: R51 Headache (principal); M50.31 Other cervical disc degeneration, high cervical region; G89.4 Chronic pain syndrome
CPT/HCPCS: 36415; 72040; 80076

== ENCOUNTER → 2018-08-09 11:19 | Outpatient (CLI) | payer OTHER, MEDICAID, SELFPAY ==
--- NOTE | 2018-08-09 11:25 | DI.RAD.S_ITS ---
PROCEDURE: XR CHEST 2V INDICATIONS: COUGH TECHNIQUE: 2 views of the chest were acquired. COMPARISON: [facility], , XR CHEST 2V, 12/26/2017, 10:50. [facility], , CHEST 1 VIEW, 11/30/2016, 19:23. FINDINGS: Surgical changes and devices: None. Lungs and pleura: Lungs are clear. No pleural effusions or pneumothorax. Mediastinum: Mediastinal contours are normal. Heart size is normal. Bones and chest wall: No suspicious bony abnormalities. Soft tissues appear unremarkable. IMPRESSION: Normal for age, source of current cough symptoms is not seen. Dictated by: Gonzalez Dsouza M.D. on 08/09/2018 at 12:47 Approved by: Gonzalez Dsouza M.D. on 08/09/2018 at 12:48
== END ==
PROVIDERS: PCP Internal Medicine; Visit Provider Family Medicine
DX: R05 Cough (principal); G43.701 Chronic migraine without aura, not intractable, with status migrainosus
CPT/HCPCS: 71046

== ENCOUNTER → 2018-08-22 10:51 | Outpatient (CLI) | payer OTHER, MEDICAID, SELFPAY ==
--- NOTE | 2018-08-22 11:41 | DI.CT.S_ITS ---
PROCEDURE: CT ABDOMEN PELVIS WO CON INDICATIONS: retroperitoneal fibrosis TECHNIQUE: Noncontrast 5 mm thick sections acquired from the diaphragms to the symphysis. 5 mm coronal and sagittal reformats were then performed. For radiation dose reduction, the following was used: automated exposure control, adjustment of mA and/or kV according to patient size. COMPARISON: None. FINDINGS: Image quality: Excellent. Note: Evaluation of the solid parenchymal organs is limited without the use of IV contrast. ABDOMEN: Lung bases: Large hiatal hernia. Small ovoid shaped pulmonary nodules along the right major fissure (2/2). No pleural effusion. Solid organs: Liver is normal in size. No obvious focal lesion. Gallbladder nondistended. No calcified gallstones. Pancreas is normal in contours. Spleen is normal in size. No adrenal nodules. Kidneys are normal in size, without hydronephrosis or nephrolithiasis. Peritoneum and bowel: Unenhanced bowel loops demonstrate normal wall thickness and caliber. No dilated loops of bowel. No free fluid or air. Nodes and vessels: Small nonspecific cardiophrenic versus perihepatic node measuring 0.8 CM short axis diameter, (2/). No retroperitoneal or mesenteric adenopathy. No retroperitoneal fibrosis. Aorta and inferior vena cava are normal in caliber. Miscellaneous: No ventral hernias. Small amount of subcutaneous gas in the left ventral abdomen the likely due to subcutaneous injection, (2/). No ascites. PELVIS: Genitourinary: Bladder wall thickness is normal. Miscellaneous: Small fat-containing right inguinal hernia. Bones: No suspicious bony lesions. Left hip screw fixation and intramedullary cindy. No vertebral body compression fractures. Moderate DDD most pronounced at the L5-S1 level. T10 intraosseous hemangioma. IMPRESSION: 1. No retroperitoneal fibrosis or retroperitoneal adenopathy. 2. No acute inflammatory process. Dictated by: Gio Castellanos M.D. on 08/22/2018 at 12:49 Approved by: Gio Castellanos M.D. on 08/22/2018 at 13:03
== END ==
PROVIDERS: PCP Internal Medicine; Visit Provider Family Medicine
DX: N94.89 Other specified conditions associated with female genital organs and menstrual cycle (principal); G43.701 Chronic migraine without aura, not intractable, with status migrainosus; K44.9 Diaphragmatic hernia without obstruction or gangrene; M51.37 Other intervertebral disc degeneration, lumbosacral region; K40.90 Unilateral inguinal hernia, without obstruction or gangrene, not specified as recurrent; D18.09 Hemangioma of other sites
CPT/HCPCS: 74176

== ENCOUNTER 2018-09-20 13:44 | Emergency (ER) | payer OTHER, MEDICAID, SELFPAY ==
[2018-09-20 13:45] VITALS: BP 146/74; PULSE 82; RESP 18; TEMP 36.7; O2SAT 92
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
[2018-09-20] MEDS: KETOROLAC 60 MG/2 ML VIAL IM (15:02)
--- NOTE | 2018-09-20 15:08 | PC.NURSE ---
Patient does not want to wait 15 minutes after medication for DC. has had toradol multiple times with no allergic reaction.
[2018-09-20 15:09] VITALS: BP 144/75; PULSE 78; RESP 16; O2SAT 95
== END 2018-09-20 15:10 | disposition home or self-care (01) ==
PROVIDERS: Emergency Provider Emergency Medicine; PCP Internal Medicine
DX: M62.830 Muscle spasm of back (principal); V49.40XA Driver injured in collision with unspecified motor vehicles in traffic accident, initial encounter
CPT/HCPCS: 72070; 96372; 99282; 99283; J1885

== ENCOUNTER 2018-12-18 11:20 | Emergency (ER) | payer OTHER, MEDICAID, SELFPAY ==
[2018-12-18 11:24] VITALS: BP 137/80; PULSE 81; RESP 16; TEMP 36.6; O2SAT 99; BMI 30.8
[2018-12-18 12:06] VITALS: BP 136/65; PULSE 71; RESP 17; O2SAT 99
--- NOTE | 2018-12-18 12:33 | PC.NURSE ---
throat, imitrex, it doesnt work provider made aware.
--- NOTE | 2018-12-18 12:44 | PC.NURSE ---
and imitrex, if necessary will add muscle relaxant.
[2018-12-18 12:48] VITALS: BP 123/67; PULSE 72
[2018-12-18] MEDS: PROCHLORPERAZINE 10 MG/2 ML VIAL IV (12:48)
[2018-12-18] MEDS: SODIUM CHLORIDE 0.9% 1,000 ML 1000 ML IV (12:48)
[2018-12-18] MEDS: KETOROLAC 60 MG/2 ML VIAL 30 MG IV (12:49)
[2018-12-18] MEDS: SUMAtriptan 6 MG/0.5 ML VIAL SUBCUT (12:50)
[2018-12-18] MEDS: diphenhydrAMINE 50 MG/ML VIAL IV (12:50)
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
== END 2018-12-18 13:54 | disposition home or self-care (01) ==
PROVIDERS: Emergency Provider Nurse Practitioner Family; PCP Internal Medicine
DX: G43.709 Chronic migraine without aura, not intractable, without status migrainosus (principal)
CPT/HCPCS: 96361; 96372; 96374; 96375; 99283; 99284; J0780; J1200; J1885; J3030

== ENCOUNTER → 2019-01-08 08:53 | Outpatient (CLI) | payer OTHER, MEDICAID, SELFPAY ==
--- NOTE | 2019-01-08 | DI.CT.S_ITS ---
PROCEDURE: CT SINUS SCREEN WO CON INDICATIONS: Acute maxillary sinusitis, unspecified TECHNIQUE: Noncontrast 3.0 mm axial images acquired from the frontal sinuses to the mid-sella, with coronal and sagittal reformats. For radiation dose reduction, the following was used: automated exposure control, adjustment of mA and/or kV according to patient size. COMPARISON: [facility], CT, CT HEAD/BRAIN WO CON, 06/08/2018, 12:56[facility], CT, SINUS SCREEN, 05/25/2010, 12:42. FINDINGS: Image quality: Excellent. Maxillary Sinuses: No bony remodeling or destruction. Sinuses are clear. Ethmoid Air Cells: No bony remodeling or destruction. Sinuses are clear. Sphenoid Sinuses: No bony remodeling or destruction. Sinuses are clear. Frontal Sinuses: No bony remodeling or destruction. Sinuses are clear. Ostiomeatal Complexes: Ostiomeatal complexes are patent, yet they are constitutionally narrowed. There are bilateral Nancy cells, which are incomplete on the right side. Miscellaneous: Visualized intra-orbital contents are normal. No aurelio bullosa or paradoxical turbinate curvature. No significant nasal septal deviation. IMPRESSION: No significant active paranasal sinus disease is seen. Constitutionally narrowed ostiomeatal complexes. Dictated by: Iván Caceres M.D. on 01/08/2019 at 8:46 Approved by: Iván Caceres M.D. on 01/08/2019 at 8:49
== END ==
PROVIDERS: PCP Internal Medicine; Visit Provider Physician Assistant
DX: J01.00 Acute maxillary sinusitis, unspecified (principal)
CPT/HCPCS: 70486

== ENCOUNTER 2019-02-20 10:30 | Outpatient (RCR) | payer OTHER, MEDICAID, SELFPAY ==
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
--- NOTE | 2018-12-12 08:48 | PT-OP ANOTE ---
Called pt via phone. Pt no show for last 4 visits due to transportation issues. Pt stated her transportation carrier did not come on time. She will try her best to coordinate her ride earlier next time.
--- NOTE | 2018-12-18 17:57 | PT-IP ANOTE ---
Product Development Consultant Melissa called pt via phone today who forgot to cancel PT appt since she was admitted to ER today due to worsening migraine.
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
--- NOTE | 2019-02-18 18:46 | PT.OPPOC ---
Physical, Occupational & Speech Therapy At [facility] Current Diagnoses Cervicalgia (02/18/19) Visit Care Team Role Provider Type Donavon Brown MD Attending Provider Physician Primary Care Provider Specialty: Internal Medicine Address: [address] [place] [address], [id number] Email: [email or web address] Of Care PT-OP-T Assessment and Plan Start: 11/14/18 09:00 Freq: Status: Active Protocol: Document 02/18/19 16:01 HH (Rec: 02/18/19 18:45 HH [id number]) Physical Therapy Assessment Goals activity tolerance Impairment Pt has very low activity tolerance Jail Goal (LTG) 02/18 goal met: Pt is able to cont 3-3.5 miles walk with her dog everyday without significant increase with her pain. ROM Impairment significant limited cervical ROM Short Term Goal (STG) Pt will have improved cervical AROM for 5 degrees in all directions. STG Duration 6 weeks Canteen Attendant Goal (LTG) Pt will have improved cervical AROM for 10 degrees in all directions so pt can turn her head during driving. LTG Duration 12 weeks neck pain Impairment Pt has neck pain 8/10 at all times Short Term Goal (STG) Pt will has neck pain and LBP no more than <6 at all times, especially bend over position during food preparation STG Duration 6 weeks Canteen Attendant Goal (LTG) Pt will has neck pain and LBP no more than <5 at all times, during food preparation LTG Duration 12 weeks Quickdash Impairment pt scores 68.12 for quick dash Short Term Goal (STG) Pt will score <50 for QuickDash to improve her quality of life STG Duration 6 weeks Canteen Attendant Goal (LTG) Pt will score <40 for QuickDash to improve her quality of life LTG Duration 12 weeks Assessment Summary Assessment Pt has improved active ROM and improved activity tolerance since IE. However, pt has poor attendance to therapy d/t family, pet's medical and transportation issues, which are also part of stressors as she stated. These continously become part of contributors to her centralized pain as well. Spend most time to educate on pt's pain mangement and stress management. Pt agreed to temporarily discontinue PT after next visit to manage her family medical issues. Physical Therapy Plan Frequency and Duration Frequency of Treatment 2 times only Duration of Treatment 1 week Plan of Care Start Date 02/18/19 Plan of Care End Date 02/25/19 Next Visit Focus/Plan Next Note Type Treatment Note Next Visit Plan Cont pain education and stress management cont manual therapy as valentin active participation on ex and conditioning Plan of Care Dates Plan of Care Start Date 02/18/19 Plan of Care End Date 02/25/19 Electronically Signed by: Doyle Aguilar PT 02/18/19 [id number] Please Sign and Return: I have reviewed this Plan of Care and certify that the skilled therapy services above are required to meet the patient?s needs. Physician Signature Date Printed Name and Credentials Clinical Instructor Signature Printed Name and Credentials
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
== END 2019-03-25 13:26 ==
LOC: PHYS 10:30
PROVIDERS: PCP Internal Medicine; Visit Provider Internal Medicine
DX: M54.2 Cervicalgia (principal)
CPT/HCPCS: 97110; 97140; 97163; 97164; 97535

== ENCOUNTER → 2019-06-05 15:01 | Outpatient (CLI) | payer OTHER, MEDICAID, SELFPAY ==
[2019-06-05 16:59] LABS: Add Manual Diff / Slide Review NO; Basophils Absolute Auto 100 /uL (0-100); Basophils Percent Auto 1.2 % (0-2); Eosinophils Absolute Auto 100 /uL (0-450); Eosinophils Percent Auto 2.1 % (2-4); Hematocrit 37.8 % (36-46); Hemoglobin 12.9 g/dL (12.0-16.0); Lymphocytes Absolute Auto 2000 /uL (1100-4500); Lymphocytes Percent Auto 31.6 % (25-40); Mean Corpuscular HGB Conc 34.2 % (30-36); Mean Corpuscular Hemoglobin 30.7 PG (26-34); Mean Corpuscular Volume 89.8 fL (80-100); Monocytes Absolute Auto 500 /uL (0-900); Monocytes Percent Auto 8.1 % (3-14); Neutrophils Absolute Auto 3600 /uL (1500-7000); Platelet Count 252 X10^3/uL (150-400); Red Blood Cell Count 4.21 X10^6/uL (4.0-5.2); Red Cell Distribution Width 13.7 % (11.6-14.8); White Blood Cell Count 6.4 X10^3/uL (4.5-11.0)
[2019-06-07 14:36] LABS: Immunoglobulin E 83 IU/mL (6-495)
== END ==
PROVIDERS: Internal Medicine; PCP Internal Medicine; Referring Provider Internal Medicine; Visit Provider Internal Medicine
DX: J45.30 Mild persistent asthma, uncomplicated (principal); J45.20 Mild intermittent asthma, uncomplicated
CPT/HCPCS: 36415; 82785; 85025

== ENCOUNTER → 2019-07-30 15:28 | Outpatient (CLI) | payer OTHER, MEDICAID, SELFPAY ==
--- NOTE | 2019-07-30 | DI.MRI.S_ITS ---
PROCEDURE: MR CERVICAL SPINE WO CON INDICATIONS: Spinal stenosis, cervical region TECHNIQUE: Noncontrast sagittal T1 spin echo and T2 fast spin echo, sagittal STIR, foraminal oblique sagittal T2 fast spin echo, and axial gradient echo or T2 fast spin echo through the cervical spine. COMPARISON: [facility], CR, CERVICAL SPINE 2 OR 3 VIEWS, 03/20/2017, 10:23. [facility], CR, XR CERVICAL SPINE 2V OR 3V, 06/27/2018, 12:12. FINDINGS: Image quality: Excellent. Alignment and Curvature: There is normal bony alignment. Bone Marrow: Marrow demonstrates normal overall signal. Spinal Cord: Visualized spinal cord has normal size and signal. No cerebellar tonsillar herniation. Paraspinous Soft Tissues: No paravertebral masses. Prevertebral soft tissues are normal in thickness. C2-C3: Normal appearance. C3-C4: The disc height is well-preserved. Loss of disc signal is seen at this level. A mild degree of generalized disc osteophyte complex is seen. Moderate facet joint hypertrophy is seen. Moderate bilateral neural foraminal narrowing is seen. Mild to moderate central canal narrowing is seen. C4-C5: Moderate loss of disc height is seen. Loss of disc signal is seen. Moderate disc osteophyte complex is seen, with a central moderate disc osteophyte protrusion. Mild to moderate facet hypertrophy is seen. There is moderate to severe left-sided and at least moderate right-sided neural foraminal narrowing seen. Moderate to severe central canal narrowing is seen. There is associated mass effect upon the ventral spinal cord. C5-C6: At least moderate loss of disc height and disc signal can be seen. Moderate generalized disc osteophyte complex is seen. There is a central disc osteophyte protrusion seen. [id number] facet hypertrophy is seen. There is moderate to severe bilateral neural foraminal narrowing seen, left worse than right. There is at least moderate central canal narrowing seen. There is associated mass effect upon the ventral spinal cord. C6-C7: Mild loss of disc height is seen. Loss of disc signal is seen. A mild degree of generalized disc osteophyte complex is seen. Mild facet joint hypertrophy is seen. No significant neural foraminal or central canal narrowing can be seen. C7-T1: Normal appearance. IMPRESSION: Cervical spine degenerative changes are seen, which are most prominent at C4-C5 and C5-C6. Dictated by: Iván Caceres M.D. on 07/30/2019 at 16:01 Approved by: Iván Caceres M.D. on 07/30/2019 at 16:07
== END ==
PROVIDERS: PCP Internal Medicine; Referring Provider Anesthesiology; Visit Provider Anesthesiology
DX: M48.02 Spinal stenosis, cervical region (principal); M47.22 Other spondylosis with radiculopathy, cervical region; M50.30 Other cervical disc degeneration, unspecified cervical region
CPT/HCPCS: 72141

== ENCOUNTER 2019-08-24 13:58 | Emergency (ER) | payer OTHER, MEDICAID, SELFPAY ==
[2019-08-24] VITALS (9 sets, daily range): BP systolic 129–149; BP diastolic 61–87; PULSE 92–108; RESP 16–40; TEMP 36.6–36.7; O2SAT 94–99; BMI 31.8
--- NOTE | 2019-08-24 14:17 | DI.RAD.S_ITS ---
PROCEDURE: XR CHEST 1V INDICATIONS: shortness of breath TECHNIQUE: One view of the chest was acquired. COMPARISON: [facility], , XR CHEST 2V, 08/09/2018, 11:30. FINDINGS: Surgical changes and devices: Postoperative changes of the left shoulder are again noted. Lungs and pleura: Lungs are clear. No pleural effusions or pneumothorax. Mediastinum: Mediastinal contours appear normal. Heart size is normal. Bones and chest wall: No suspicious bony lesions. Overlying soft tissues appear unremarkable. IMPRESSION: Stable chest. No acute cardiopulmonary process is evident. Dictated by: Dennys Gonzalez M.D. on 08/24/2019 at 14:55 Approved by: Dennys Gonzalez M.D. on 08/24/2019 at 14:55
[2019-08-24] MEDS: ALBUTEROL/IPRATROPIUM 3 ML AMPUL INH ×2 (14:18)
--- NOTE | 2019-08-24 14:25 | ED_ITS ---
HPI - Asthma General Chief Complaint: Asthma Stated Complaint: Eloisa grewal-1 Time Seen by Provider: 08/24/19 14:21 Source: patient Mode of arrival: Ambulatory Limitations: no limitations History of Present Illness HPI Narrative: Patient is a 63-year-old female with history of asthma presenting with increasing shortness of breath which started suddenly. She says that typically in the springtime her asthma flares up she uses her inhaler quite often. Last night she needed to use her inhaler twice and again she used it twice today without much relief. She denies fever chills or productive cough. She denies any chest pain. She actually has already received DuoNeb treatment prior to my evaluation. She says she is feeling a little bit better MD complaint: asthma attack Onset (ago): hour(s) Severity: moderate Related Data Current Asthma Therapy: inhaled bronchodilator Home Medications Medication Instructions Recorded Confirmed estradiol 0.25 mg PO DAILY #0 06/22/10 07/09/19 pramipexole [Mirapex] 0.75 mg PO BEDTIME #0 08/30/16 07/09/19 methocarbamol 500 mg tablet 500 mg PO QID PRN 05/28/18 07/09/19 gabapentin 600 mg tablet 600 mg PO TID tab 06/19/18 07/09/19 omeprazole 20 mg capsule,delayed 20 mg PO BID cap 06/19/18 07/09/19 release sumatriptan succinate 100 mg tablet 100 mg PO Q2-4H PRN 06/19/18 07/09/19 acetaminophen 500 - 1,000 mg PO Q6H PRN 09/20/18 07/09/19 diclofenac potassium [Cambia] 50 mg PO DIRECTED 09/20/18 07/09/19 garlic oil 1 dose PO DIRECTED 09/20/18 07/09/19 ketorolac 60 mg IM .ONCE PRN 09/20/18 07/09/19 oxycodone 5 mg PO QID PRN 09/20/18 07/09/19 sennosides [senna] 17.2 mg PO BEDTIME PRN 09/20/18 07/09/19 furosemide 20 mg tablet 20 mg PO DAILY PRN 10/29/18 07/09/19 potassium chloride 20 mEq 20 meq PO DAILY 10/29/18 07/09/19 tablet,extended release epinephrine 0.3 mg IM PRN PRN 12/18/18 07/09/19 budesonide 32 mcg/actuation nasal 1 spray INTRANASAL BID ml 12/25/18 07/09/19 spray ibuprofen 800 mg tablet 800 mg PO TID PRN 12/25/18 07/09/19 levalbuterol tartrate 45 2 inhalation INHALATION Q4H PRN 12/25/18 07/09/19 mcg/actuation aerosol inhaler lidocaine 5 % topical ointment 1 applic TOPICAL TID PRN 12/25/18 07/09/19 Previous Rx's Medication Instructions Recorded Disabled Parking Permit See Rx Instructions .ROUTE 09/26/17 .COMPLEX #1 each diazepam 5 mg tablet 5 mg PO BIDP PRN #60 tab 11/20/17 ondansetron HCl 8 mg tablet 8 mg PO Q12H PRN #20 tab 01/07/19 promethazine 25 mg tablet 25 mg PO Q8H PRN #12 tab 02/11/19 sumatriptan succinate 100 mg tablet 100 mg PO ONCE PRN #14 tab 02/18/19 rizatriptan 10 mg tablet 10 mg PO .COMPLEX PRN #12 tab 03/11/19 sumatriptan succinate 6 mg/0.5 mL 6 mg SUBCUT .COMPLEX #4 ml 03/12/19 subcutaneous pen injector quetiapine 25 mg tablet See Rx Instructions PO DAILY #30 03/20/19 tab pilocarpine HCl 4 % eye drops See Rx Instructions .ROUTE 04/30/19 .COMPLEX #15 ml trazodone 100 mg tablet See Rx Instructions PO BEDTIME PRN 05/13/19 #45 tab prednisone 50 mg PO DAILY #5 tab 08/24/19 Allergies Allergy/AdvReac Type Severity Reaction Status Date / Time Penicillins [PENICILLINS] Allergy Severe Anaphylaxis Verified 08/24/19 14:12 Sulfa (Sulfonamide Allergy Severe RASH Verified 08/24/19 14:12 Antibiotics) [SULFA (SULFONAMIDE ANTIBIOTICS)] sulfamethoxazole Allergy Intermediate RASH Verified 08/24/19 14:12 [From SEPTRA] trimethoprim [From SEPTRA] Allergy Intermediate RASH Verified 08/24/19 14:12 azithromycin Allergy Unknown Verified 08/24/19 14:12 [From ZITHROMAX Z-MARILYN] morphine [MORPHINE] Allergy Unknown Anaphylaxis Verified 08/24/19 14:12 cefuroxime [From Ceftin] Allergy Verified 08/24/19 14:12 cephalexin [From Keflex] Allergy Verified 08/24/19 14:12 ciprofloxacin [From Cipro] Allergy Verified 08/24/19 14:12 zonisamide AdvReac Intermediate rash Verified 08/24/19 14:12 verapamil AdvReac Mild Hives Verified 08/24/19 14:12 steroids AdvReac Swelling Uncoded 07/09/19 10:38 of Lip/Tongue/Throat Review of Systems Review of Systems Narrative: GENERAL: Denies chills, fatigue, malaise, fever, sweats, travel HEENT: Denies sinus pain, ear pain, sore throat, difficulty swallowing, neck pain RESPIRATORY: See HPI CARDIOVASCULAR: Denies chest pain, palpitations, orthopnea, edema GASTROINTESTINAL: Denies nausea, vomiting, abdominal pain, diarrhea, constipation, melena. : Denies dysuria, frequency, incontinence, hematuria, urinary retention, flank pain. MUSCULOSKELETAL: Denies weakness, joint pain, or bony pain SKIN: No rash, no erythema, no pruritus NEUROLOGIC: Denies weakness, dizziness, headache, numbness, change in speech, co nfusion PSYCHIATRIC: No concerning psychosocial issues. 12 point review of systems is negative except for those stated above and HPI Patient History Medical History Anemia (Chronic) Anxiety (Chronic) Asthma (Chronic) Chronic back pain (Chronic) Chronic cough (Chronic) Depression (Chronic) Femur fracture, left (Resolved) Fibromyalgia (Chronic) Fractures (Chronic) GERD (gastroesophageal reflux disease) (Chronic) Recurrent sinusitis (Chronic) Surgical History Anesthesia (Resolved) History of eye surgery (Resolved ~1973) History of foot surgery (Resolved) History of hysterectomy (Resolved ~1979) History of shoulder surgery (Resolved ~2011) History of tonsillectomy (Resolved ~1975) Family History Mother Heart disease Social History marital status: number of children: 1 household members: none lives independently: Yes caregiver/support person: Yes (3 afternoons per week) pets and animals: Yes occupational status: disabled Smoking Status: Never smoker alcohol intake: never substance use type: does not use Smoking Status: Never smoker alcohol intake frequency: 0-2 drinks per day Substance Use Type: does not use Exam Initial Vital Signs Initial Vital Signs: Vital Signs Temperature 98 F 08/24/19 14:12 Pulse Rate 100 H 08/24/19 14:12 Respiratory Rate 22 08/24/19 14:12 Blood Pressure 137/87 08/24/19 14:12 Pulse Oximetry 97 08/24/19 14:12 GENERAL: Alert anxious well-appearing female HEENT: Head atraumatic,EOMI, pupils reactive, face symmetric, moist mucous membranes CARDIOVASCULAR: Regular rate and rhythm without murmurs, rubs or gallops. RESPIRATORY: Decreased breath sounds bilaterally but speaking in full sentences no wheezes rales or rhonchi ABDOMEN: Soft, nontender. Normoactive bowel sounds all 4 quadrants. No guarding or rebound. EXTREMITIES: Normal range of motion, no clubbing or edema. Neurovascularly intact NEUROLOGICAL: Alert and oriented x4.Normal gait and speech. Course Orders Ordered: Discontinued Medications Albuterol (Ventolin Hfa) 2 puff INH NOW ONE Stop: 08/24/19 14:34 Last Admin: 08/24/19 14:41 Dose: 2 puff Documented by: BRAYAN Albuterol (Ventolin) 2.5 mg INH NOW ONE Stop: 08/24/19 15:50 Last Admin: 08/24/19 16:04 Dose: 2.5 mg Documented by: DALI Albuterol/Ipratropium (Duoneb) 3 ml INH NOW ONE Stop: 08/24/19 14:07 Last Admin: 08/24/19 14:18 Dose: 3 ml Documented by: BRAYAN Albuterol/Ipratropium (Duoneb) 3 ml INH NOW ONE Stop: 08/24/19 14:18 Last Admin: 08/24/19 14:18 Dose: 3 ml Documented by: BRAYAN Methylprednisolone (Solu-Medrol 125 Mg Vial) 125 mg IV NOW ONE Stop: 08/24/19 14:33 Last Admin: 08/24/19 14:43 Dose: 125 mg Documented by: FLORINDA Prednisone (Deltasone) 60 mg PO NOW ONE Stop: 08/24/19 14:18 Last Admin: 08/24/19 14:44 Dose: Not Given Documented by: FLORINDA Vital Signs Vital signs: Vital Signs - 8 hr 08/24/19 14:12 08/24/19 14:46 08/24/19 16:00 Temperature 98 F Pulse Rate 100 H 92 H 101 H Respiratory Rate 22 40 H 22 Blood Pressure 137/87 Pulse Oximetry 97 99 98 08/24/19 16:16 08/24/19 16:24 08/24/19 16:30 Temperature Pulse Rate 98 H 105 H 108 H Respiratory Rate 20 23 22 Blood Pressure 149/64 H 133/67 Pulse Oximetry 98 95 96 08/24/19 17:00 08/24/19 17:17 08/24/19 17:36 Temperature 98.1 F Pulse Rate 105 H 102 H 108 H Respiratory Rate 19 16 18 Blood Pressure 129/61 129/61 Pulse Oximetry 94 95 95 MDM - Asthma Lab Data Attestation: I reviewed the patient's lab results. Result diagrams: 08/24/19 14:52 08/24/19 14:52 Labs: Lab Results 08/24/19 08/24/19 08/24/19 Range/Units 14:30 14:52 14:52 WBC 6.0 (4.5-11.0) X10^3/uL RBC 4.16 (4.0-5.2) X10^6/uL Hgb 12.3 (12.0-16.0) g/dL Hct 37.2 (36-46) % MCV 89.3 (80-100) fL MCH 29.6 (26-34) PG MCHC 33.2 (30-36) % RDW 14.0 (11.6-14.8) % Plt Count 285 (150-400) X10^3/uL Neut % (Auto) 48.7 L (50-75) % Lymph % (Auto) 40.7 H (25-40) % [place] % (Auto) 8.1 (3-14) % Eos % (Auto) 1.8 L (2-4) % Baso % (Auto) 0.7 (0-2) % Neut # (Auto) 2900 (1797-3845) /uL Lymph # (Auto) 2400 (3553-5177) /uL [place] # (Auto) 500 (0-900) /uL Eos # (Auto) 100 (0-450) /uL Baso # (Auto) 0 (0-100) /uL Sodium 134 L (137-145) mmol/L Potassium 3.8 (3.4-5.1) mmol/L Chloride 102 (98-107) mmol/L Carbon Dioxide 26 (22-32) mmol/L BUN 14 (7-17) mg/dL Creatinine 0.64 (0.52-1.04) mg/dL Estimated GFR > 60.0 (>60) mL/min BUN/Creatinine Ratio 21.9 (6-22) Glucose 100 (80-110) mg/dL Lactate (0.7-2.1) mmol/L Calcium 9.9 (8.4-10.2) mg/dL Total Bilirubin 0.3 (0.2-1.3) mg/dL AST 46 H (14-36) IU/L ALT 32 (<35) IU/L Alkaline Phosphatase 100 (38-126) U/L Total Creatine Kinase (30-135) U/L CK-MB (CK-2) (<2.37) ng/mL CK-MB (CK-2) Rel Index (1.5-5.0) % Troponin I (0.01-0.034) ng/mL NT-Pro-B Natriuret Pep (<125) pg/mL Total Protein 7.3 (6.3-8.2) g/dL Albumin 4.5 (3.5-5.0) g/dL Globulin 2.8 (1.7-4.1) g/dL Albumin/Globulin Ratio 1.6 (1.0-2.8) COVID-19 PCR Negative (Negative) 08/24/19 08/24/19 Range/Units 14:52 14:52 WBC (4.5-11.0) X10^3/uL RBC (4.0-5.2) X10^6/uL Hgb (12.0-16.0) g/dL Hct (36-46) % MCV (80-100) fL MCH (26-34) PG MCHC (30-36) % RDW (11.6-14.8) % Plt Count (150-400) X10^3/uL Neut % (Auto) (50-75) % Lymph % (Auto) (25-40) % [place] % (Auto) (3-14) % Eos % (Auto) (2-4) % Baso % (Auto) (0-2) % Neut # (Auto) (3901-3236) /uL Lymph # (Auto) (7130-8607) /uL [place] # (Auto) (0-900) /uL Eos # (Auto) (0-450) /uL Baso # (Auto) (0-100) /uL Sodium (137-145) mmol/L Potassium (3.4-5.1) mmol/L Chloride (98-107) mmol/L Carbon Dioxide (22-32) mmol/L BUN (7-17) mg/dL Creatinine (0.52-1.04) mg/dL Estimated GFR (>60) mL/min BUN/Creatinine Ratio (6-22) Glucose (80-110) mg/dL Lactate 1.2 (0.7-2.1) mmol/L Calcium (8.4-10.2) mg/dL Total Bilirubin (0.2-1.3) mg/dL AST (14-36) IU/L ALT (<35) IU/L Alkaline Phosphatase (38-126) U/L Total Creatine Kinase 364 H (30-135) U/L CK-MB (CK-2) 5.09 H (<2.37) ng/mL CK-MB (CK-2) Rel Index 1.4 L (1.5-5.0) % Troponin I < 0.012 (0.01-0.034) ng/mL NT-Pro-B Natriuret Pep 51 (<125) pg/mL Total Protein (6.3-8.2) g/dL Albumin (3.5-5.0) g/dL Globulin (1.7-4.1) g/dL Albumin/Globulin Ratio (1.0-2.8) COVID-19 PCR (Negative) Imaging Data Chest x-ray: Radiologist's Impression: PROCEDURE: XR CHEST 1V INDICATIONS: shortness of breath TECHNIQUE: One view of the chest was acquired. COMPARISON: [facility], CR, XR CHEST 2V, 08/09/2018, 11:30. FINDINGS: Surgical changes and devices: Postoperative changes of the left shoulder are again noted. Lungs and pleura: Lungs are clear. No pleural effusions or pneumothorax. Mediastinum: Mediastinal contours appear normal. Heart size is normal. Bones and chest wall: No suspicious bony lesions. Overlying soft tissues appear unremarkable. IMPRESSION: Stable chest. No acute cardiopulmonary process is evident. Dictated by: Dennys Gonzalez M.D. on 08/24/2019 at 14:55 CT scan - chest: Radiologist's Impression: PROCEDURE: CT ANGIO CHEST PE PROTOCOL INDICATIONS: sob persistant TECHNIQUE: After the administration of intravenous contrast, 2 mm thick sections acquired from the pulmonary apices to the posterior costophrenic angles. 3-dimensional maximum intensity projection (MIP) coronal and sagittal reformats were then acquired through the thorax. For radiation dose reduction, the following was used: automated exposure control, adjustment of mA and/or kV according to patient size. COMPARISON: None. FINDINGS: Image quality: Diagnostic Pulmonary arteries: Pulmonary arteries are normal in size, and demonstrate no intraluminal filling defects to suggest central pulmonary embolism. Lungs and pleura: Interstitial thickening and mild ground-glass attenuation is identified involving the bilateral posterior lungs. There is no lobar consolidation or large area of pulmonary consolidation. No effusion or pneumothorax is evident. Pulmonary nodules are seen along the major pulmonary fissure on the right (image 74, series 4), measuring in conglomeration 1.9 x 0.5 centimeters. No lung mass is evident. Mediastinum: Heart size is normal, without pericardial effusion. Coronary artery atherosclerosis No mediastinal or hilar adenopathy. Thoracic aorta is normal in caliber and enhancement. Is noted. Fluid is seen within the lower esophagus. There is a moderate-sized hiatal hernia. Bones and chest wall: No suspicious bony lesions. Ribs and thoracic spine appear intact throughout. Postsurgical changes of the left humerus are present Thyroid gland is not enlarged or adequately characterized. No axillary or supraclavicular adenopathy. Abdomen: Visualized upper abdominal solid organs appear normal in the early arterial phase of enhancement. IMPRESSION: 1. No evidence of pulmonary emboli. 2. Interstitial prominence within the lung bases with ground-glass attenuation probably represents atelectasis and/or scarring. However, a developing superimposed pneumonia cannot be excluded. 3. Pulmonary nodules along the major pulmonary fissure on the right. A follow-up CT of the chest in 6 months is recommended. 4. Coronary artery atherosclerosis. 5. Moderate-sized hiatal hernia. Dictated by: Dennys Gonzalez M.D. on 08/24/2019 at 16:05 Approved by: Dennys Gonzalez M.D. on 08/24/2019 at 16:09 ECG Data Attestation: I personally reviewed and interpreted this ECG as follows: Prior ECG tracings: available for review Interpretation: Normal sinus rhythm rate 98 p.r. interval 150 QRS [address] depression elevation or T-wave inversion similar to prior MDM Narrative Medical decision making narrative: The patient initially got DuoNebs before COVID testing was back. She had good air movement and speaking easily however she did remain tachycardic and shaking. She is not hypoxic. COVID-19 test is negative she is given albuterol because she is complaining of s till not feeling right. Discussion for CT for PE because she still does not feel quite right and is tachycardic, initially hesitant but finally agreed. CT is negative she actually is feeling much better after albuterol nebulizer. She would like to go home and let her dog out. Discharge Plan Departure Patient Disposition: Home Clinical Impression: Asthma with acute exacerbation Qualifiers: Asthma severity: moderate Asthma persistence: persistent Qualified Code(s): J45.41 - Moderate persistent asthma with (acute) exacerbation Discharge Date/Time: 08/24/19 17:25 Instructions: DI for Asthma -- Adult Activity Restrictions/Additional Instructions: *You have been diagnosed with asthma exacerbation *What to do: COVID-19 is negative. *Continue to take medications as directed Albuterol 1-2 puffs every 4 hours if needed for chest tightness or shortness of breath Prednisone 50 mg once a day start tomorrow __> sent to [facility] *Follow up with your primary care provider in 2-3 days *Return to ER if you should have increasing chest pain shortness of breath, or any new, worsening or concerning symptoms Prescriptions: New prednisone 50 mg tablet 50 mg PO DAILY Qty: 5 RF: 0 No Action diazepam 5 mg tablet 5 mg PO BIDP PRN (Reason: anxiety/sleep) Qty: 60 RF: 2 methocarbamol [Robaxin] 500 mg tablet 500 mg PO QID PRN (Reason: Spasms) RF: 0 furosemide [Lasix] 20 mg tablet 20 mg PO DAILY PRN (Reason: edema) RF: 0 potassium chloride 20 mEq tablet extended release 20 meq PO DAILY RF: 0 quetiapine 25 mg tablet See Rx Instructions PO DAILY Qty: 30 RF: 0 estradiol 0.5 MG tablet 0.25 mg PO DAILY Qty: 0 RF: 0 pramipexole [Mirapex] 0.75 MG tablet 0.75 mg PO BEDTIME Qty: 0 RF: 0 Disabled Parking Permit See Rx Instructions .Route .COMPLEX Qty: 1 RF: 0 promethazine 25 mg tablet 25 mg PO Q8H PRN (Reason: nausea and vomiting) Qty: 12 RF: 1 sumatriptan succinate 100 mg tablet 100 mg PO ONCE PRN (Reason: migraine headache) Qty: 14 RF: 3 rizatriptan 10 mg tablet 10 mg PO .COMPLEX PRN (Reason: migraine headache) Qty: 12 RF: 3 sumatriptan succinate 6 mg/0.5 mL pen injector 6 mg SUBCUT .COMPLEX Qty: 4 RF: 6 pilocarpine HCl 4 % drops See Rx Instructions .ROUTE .COMPLEX Qty: 15 RF: 0 trazodone 100 mg tablet See Rx Instructions PO BEDTIME PRN (Reason: insomnia) Qty: 45 RF: 2 oxycodone 5 mg tablet 5 mg PO QID PRN (Reason: pain) RF: 0 sennosides [senna] 8.6 mg Tablet 17.2 mg PO BEDTIME PRN (Reason: Constipation) RF: 0 acetaminophen 500 mg tablet 500 - 1,000 mg PO Q6H PRN (Reason: pain) RF: 0 ketorolac 60 mg/2 mL Syringe 60 mg IM .ONCE PRN (Reason: Migraine Headache) RF: 0 Cambia 50 mg powder in packet 50 mg PO DIRECTED RF: 0 garlic oil 1 dose PO DIRECTED RF: 0 budesonide 32 mcg/actuation spray,non-aerosol 1 spray intranasal BID RF: 0 lidocaine 5 % ointment 1 applic TOPICAL TID PRNRF: 0 epinephrine 0.3 mg/0.3 mL auto-injector 0.3 mg IM PRN PRN (Reason: Allergic Reaction) RF: 0 gabapentin [Neurontin] 600 mg tablet 600 mg PO TID RF: 0 sumatriptan succinate 100 mg tablet 100 mg PO Q2-4H PRN (Reason: Migraine Headache) RF: 0 ondansetron HCl [Zofran] 8 mg tablet 8 mg PO Q12H PRN (Reason: nausea and vomiting) Qty: 20 RF: 3 ibuprofen 800 mg tablet 800 mg PO TID PRNRF: 0 omeprazole 20 mg capsule,delayed release(DR/EC) 20 mg PO BID RF: 0 levalbuterol tartrate [Xopenex HFA] 45 mcg/actuation HFA aerosol inhaler 2 inhalation INHALATION Q4H PRN (Reason: shortness of breath) RF: 0 Referrals: Donavon Brown MD [Primary Care Provider] -
[2019-08-24] MEDS: predniSONE 20 MG TABLET 60 MG PO (14:26)
[2019-08-24] MEDS: ALBUTEROL HFA 60 PUFF/8 GM INH INH (14:41)
[2019-08-24] MEDS: methylPREDNISolone 125 MG/2 ML VIAL IV (14:43)
[2019-08-24 15:02] LABS: Add Manual Diff / Slide Review NO; Basophils Absolute Auto 0 /uL (0-100); Basophils Percent Auto 0.7 % (0-2); Eosinophils Absolute Auto 100 /uL (0-450); Eosinophils Percent Auto 1.8 % (2-4); Hematocrit 37.2 % (36-46); Hemoglobin 12.3 g/dL (12.0-16.0); Lymphocytes Absolute Auto 2400 /uL (1100-4500); Lymphocytes Percent Auto 40.7 % (25-40); Mean Corpuscular HGB Conc 33.2 % (30-36); Mean Corpuscular Hemoglobin 29.6 PG (26-34); Mean Corpuscular Volume 89.3 fL (80-100); Monocytes Absolute Auto 500 /uL (0-900); Monocytes Percent Auto 8.1 % (3-14); Neutrophils Absolute Auto 2900 /uL (1500-7000); Neutrophils Percent Auto 48.7 % (50-75); Platelet Count 285 X10^3/uL (150-400); Red Blood Cell Count 4.16 X10^6/uL (4.0-5.2)
[2019-08-24 15:18] LABS: Alanine Aminotransferase 32 IU/L (<35); Albumin 4.5 g/dL (3.5-5.0); Albumin Globulin Ratio 1.6 (1.0-2.8); Alkaline Phosphatase 100 U/L (38-126); Aspartate Aminotransferase 46 IU/L (14-36); BUN Creatinine Ratio 21.9 (6-22); Bilirubin Total 0.3 mg/dL (0.2-1.3); Blood Urea Nitrogen 14 mg/dL (7-17); Calcium 9.9 mg/dL (8.4-10.2); Carbon Dioxide 26 mmol/L (22-32); Chloride 102 mmol/L (98-107); Creatine Kinase 364 U/L (30-135); Estimated Glomerular Filt Rate > 60.0 mL/min (>60); Globulin 2.8 g/dL (1.7-4.1); Glucose 100 mg/dL (80-110); HEMOLYSIS < 15 (0-50); Lactate (Lactic Acid) 1.2 mmol/L (0.7-2.1); Potassium 3.8 mmol/L (3.4-5.1); Sodium 134 mmol/L (137-145); Total Protein 7.3 g/dL (6.3-8.2)
[2019-08-24 15:30] LABS: NT-proBNP (BNP-Adult 18+) 51 pg/mL (<125); Troponin I < 0.012 ng/mL (0.01-0.034)
[2019-08-24 15:33] LABS: CKMB % Relative Index 1.4 % (1.5-5.0); Creatine Kinase MB 5.09 ng/mL (<2.37)
[2019-08-24 15:49] LABS: COVID19 -Nasal RAPID Negative (Negative)
[2019-08-24] MEDS: ALBUTEROL 2.5 MG/3 ML NEB (ADULT) INH (16:04)
--- NOTE | 2019-08-24 16:19 | DI.CT.S_ITS ---
PROCEDURE: CT ANGIO CHEST PE PROTOCOL INDICATIONS: sob persistant TECHNIQUE: After the administration of intravenous contrast, 2 mm thick sections acquired from the pulmonary apices to the posterior costophrenic angles. 3-dimensional maximum intensity projection (MIP) coronal and sagittal reformats were then acquired through the thorax. For radiation dose reduction, the following was used: automated exposure control, adjustment of mA and/or kV according to patient size. COMPARISON: None. FINDINGS: Image quality: Diagnostic Pulmonary arteries: Pulmonary arteries are normal in size, and demonstrate no intraluminal filling defects to suggest central pulmonary embolism. Lungs and pleura: Interstitial thickening and mild ground-glass attenuation is identified involving the bilateral posterior lungs. There is no lobar consolidation or large area of pulmonary consolidation. No effusion or pneumothorax is evident. Pulmonary nodules are seen along the major pulmonary fissure on the right (image 74, series 4), measuring in conglomeration 1.9 x 0.5 centimeters. No lung mass is evident. Mediastinum: Heart size is normal, without pericardial effusion. Coronary artery atherosclerosis No mediastinal or hilar adenopathy. Thoracic aorta is normal in caliber and enhancement. Is noted. Fluid is seen within the lower esophagus. There is a moderate-sized hiatal hernia. Bones and chest wall: No suspicious bony lesions. Ribs and thoracic spine appear intact throughout. Postsurgical changes of the left humerus are present Thyroid gland is not enlarged or adequately characterized. No axillary or supraclavicular adenopathy. Abdomen: Visualized upper abdominal solid organs appear normal in the early arterial phase of enhancement. IMPRESSION: 1. No evidence of pulmonary emboli. 2. Interstitial prominence within the lung bases with ground-glass attenuation probably represents atelectasis and/or scarring. However, a developing superimposed pneumonia cannot be excluded. 3. Pulmonary nodules along the major pulmonary fissure on the right. A follow-up CT of the chest in 6 months is recommended. 4. Coronary artery atherosclerosis. 5. Moderate-sized hiatal hernia. Dictated by: Dennys Gonzalez M.D. on 08/24/2019 at 16:05 Approved by: Dennys Gonzalez M.D. on 08/24/2019 at 16:09
== END 2019-08-24 17:25 | disposition home or self-care (01) ==
PROVIDERS: Emergency Provider Emergency Medicine; PCP Internal Medicine
DX: J45.41 Moderate persistent asthma with (acute) exacerbation (principal); R00.0 Tachycardia, unspecified
CPT/HCPCS: 36415; 71045; 71275; 80053; 82550; 82553; 83605; 83880; 84484; 85025; 87635; 93005; 93010; 94150; 94640; 96374; 99285; J2930; J7613; Q9967

== ENCOUNTER → 2019-09-07 10:27 | Outpatient (CLI) | payer OTHER, MEDICAID, SELFPAY ==
[2019-09-08 21:18] LABS: COVID19 Sendout Not Detected (Not Detect)
== END ==
PROVIDERS: PCP Student in an Organized Health Care Education/Training Program; Visit Provider Physician Assistant
DX: Z01.818 Encounter for other preprocedural examination (principal)
CPT/HCPCS: 87635

== ENCOUNTER → 2019-09-10 14:38 | Outpatient (CLI) | payer OTHER, MEDICAID, SELFPAY ==
--- NOTE | 2019-09-10 14:39 | DI.RAD.S_ITS ---
PROCEDURE: XR KNEE RT 3V INDICATIONS: Knee pain TECHNIQUE: 3 views of the knee were acquired. COMPARISON: [facility], , KNEE 3V LEFT, 01/17/2013, 16:04. [facility], , KNEE 3V LEFT, 06/03/2010, 16:23. FINDINGS: Bones: No fractures or dislocations. No suspicious bony lesions. Soft tissues: No joint effusion. No suspicious soft tissue calcifications. IMPRESSION: Moderate tricompartmental right knee joint osteoarthritis without effusion or loose body. No acute trauma found. Dictated by: Gonzalez Dsouza M.D. on 09/10/2019 at 15:55 Approved by: Gonzalez Dsouza M.D. on 09/10/2019 at 15:55
== END ==
PROVIDERS: PCP Student in an Organized Health Care Education/Training Program; Referring Provider Student in an Organized Health Care Education/Training Program; Visit Provider Student in an Organized Health Care Education/Training Program
DX: M25.561 Pain in right knee (principal); M17.11 Unilateral primary osteoarthritis, right knee
CPT/HCPCS: 73562

== ENCOUNTER 2019-09-16 10:06 | Emergency (ER) | payer OTHER, MEDICAID, SELFPAY ==
[2019-09-16] VITALS (19 sets, daily range): BP systolic 90–189; BP diastolic 51–103; PULSE 55–77; RESP 16–32; TEMP 36.2–36.9; O2SAT 93–98
[2019-09-16 11:16] LABS: Add Manual Diff / Slide Review NO; Basophils Absolute Auto 100 /uL (0-100); Basophils Percent Auto 0.8 % (0-2); Eosinophils Absolute Auto 100 /uL (0-450); Eosinophils Percent Auto 1.8 % (2-4); Hematocrit 37.4 % (36-46); Hemoglobin 12.8 g/dL (12.0-16.0); Lymphocytes Absolute Auto 2000 /uL (1100-4500); Lymphocytes Percent Auto 26.4 % (25-40); Mean Corpuscular HGB Conc 34.1 % (30-36); Mean Corpuscular Hemoglobin 30.3 PG (26-34); Mean Corpuscular Volume 88.9 fL (80-100); Monocytes Absolute Auto 600 /uL (0-900); Monocytes Percent Auto 7.6 % (3-14); Neutrophils Absolute Auto 4800 /uL (1500-7000); Neutrophils Percent Auto 63.4 % (50-75); Platelet Count 320 X10^3/uL (150-400); Red Blood Cell Count 4.21 X10^6/uL (4.0-5.2); Red Cell Distribution Width 13.8 % (11.6-14.8); White Blood Cell Count 7.6 X10^3/uL (4.5-11.0)
[2019-09-16] MEDS: diphenhydrAMINE 50 MG/ML VIAL 25 MG IV (11:17)
[2019-09-16] MEDS: HALOPERIDOL 5 MG/ML VIAL 2 MG IV (11:17)
[2019-09-16 11:28] LABS: Alanine Aminotransferase 33 IU/L (<35); Albumin 4.4 g/dL (3.5-5.0); Albumin Globulin Ratio 1.4 (1.0-2.8); Alkaline Phosphatase 100 U/L (38-126); Aspartate Aminotransferase 46 IU/L (14-36); Bilirubin Total 0.5 mg/dL (0.2-1.3); Blood Urea Nitrogen 18 mg/dL (7-17); Calcium 9.8 mg/dL (8.4-10.2); Carbon Dioxide 27 mmol/L (22-32); Chloride 95 mmol/L (98-107); Estimated Glomerular Filt Rate > 60.0 mL/min (>60); Ethanol (ETOH) < 10 mg/dL; Globulin 3.1 g/dL (1.7-4.1); Glucose 110 mg/dL (80-110); HEMOLYSIS 41 (0-50); Potassium 4.3 mmol/L (3.4-5.1); Sodium 129 mmol/L (137-145); Total Protein 7.5 g/dL (6.3-8.2)
--- NOTE | 2019-09-16 11:31 | PC.NURSE ---
Pt very tearful/groans on expiration. Hard to understand speech due to this. Reports symptoms started yesterday and got worse today after a phone call. Pt crying too much to say what the phone call was about. States this has never happened before, I'm scared. Friend Yadira is now at bedside.
[2019-09-16 11:58] LABS: Thyroid Stimulating Hormone 1.63 uIU/mL (0.47-4.68)
[2019-09-16] MEDS: PRAMIPEXOLE 1 MG TABLET 0.75 MG PO (13:15)
[2019-09-16 14:30] LABS: Ur Creatinine Normal (Normal); Ur Specific Gravity Normal (Normal); Urine Tetrahydrocannabinol Negative (Negative); Urine pH Normal (Normal)
[2019-09-16 14:31] LABS: UR Morphine/Opiate cutoff 300 Negative (Negative); Urine Amphetamines Negative (Negative); Urine Barbiturates Negative (Negative); Urine Benzodiazepines Negative (Negative); Urine Cocaine Negative (Negative); Urine MDMA Negative (Negative); Urine Methadone Negative (Negative); Urine Methamphetamines Negative (Negative); Urine Oxycodone Negative (Negative); Urine Phencyclidine Negative (Negative); Urine Tricyclic Antidepressant Negative (Negative)
--- NOTE | 2019-09-16 15:44 | CM.SWNOTE ---
LOAD TESTER note LOAD TESTER attempted to meet with patient at 1540. LOAD TESTER unable to wake patient through knocking and stating name. LOAD TESTER will attempt to meet with patient later in shift. RAMAKRISHNA Batista
[2019-09-16] MEDS: ALBUTEROL 2.5 MG/3 ML NEB (ADULT) INH (17:13)
--- NOTE | 2019-09-16 17:42 | PC.NURSE ---
Mack DURBIN with patient
--- NOTE | 2019-09-16 18:25 | CM.SWNOTE ---
CORE MAN assessment CORE MAN - Conductor Freight Assessment CORE MAN - Conductor Freight Assessment Start: 09/16/19 18:15 Freq: Status: Active Protocol: Document 09/16/19 18:15 HALEY (Rec: 09/16/19 18:25 HALEY [id number]) CORE MAN/Conductor Freight Assessment Time Spent with Patient Start date 09/16/19 Visit Start Time 17:20 End date 09/16/19 Visit End Time 18:05 Total time Care Management spent on 45 patient visit-in minutes Mental Health Screening Include Onset, Duration, Intensity Presenting Problem Patient presents to ED today experiencing anxiety and panic . Precipitating Event(s) Patient reports receiving a text from her sister and the family which criticized her about how she interacts with her adult daughter who has cancer. Current Behavioral Health Provider(s) Patient sees a counselor in [facility], Provider, [facility] [employer], and reports that she has a phone visit with this counselor later in week. Patient sees Dr. Megha Nielsen for psychiatry, and states she will call tomorrow to arrange follow up. Psych. 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 Family Hx of Behavioral Abuse none reported Psychiatric Hospitalizations (date(s)/ none reported location) Support System(s) patient has a friend Yadira, who she states will be giving her a ride home from the hospital . Patient has a dog who she says is a big support to her . School/Work none Legal Concerns Legal Matters - Outstanding Issues none reported Mental Status Orientation (Person/Place/Time) Oriented x3 Affect Dysphoric, flat, stable Thought Content - Specify/Describe No obsessions, delusions, or Obsessions, Delusions, Hallucinations hallucinations observed or reported during assessment. Thought Processes (Vhdcwhl-Niruxwss-Zqcx Coherent Udsvbgyd-Vfrclfni-Fntmmoocld- Cyxnyrvnsvrszi-Nnamzks-Wlgkukwjntfc- Thought Blocking) Speech (Quikqx-Kltr-Gowvyal-Rapid-Soft- Slow Loud-Pressured) Motor (Vidlud-Qpwsssfay-Mqtq-Other) Slow Insight (Present-Partially Present- Present Impaired) Judgement (Intact-Impaired) Intact Impulse Control (Adequate-Impaired) Adequate Memory (Bhufclpmo-Lslgrw-Nofhty, Intact x3 Impaired-Intact) Concentration (Intact-Impaired) Intact Attention (Intact-Impaired) Intact Behavior (Appropriate-Inappropriate) Appropriate Risk Assessment Suicidal Ideation (Plan) No Homicidal Ideation (Plan) No Comment Patient denies SI/HI multiple times during assessment. Intervention Intervention CORE MAN consult requested for patient. Patient is a 63 y/o female who presents to ED via EMS for anxiety and feelings of panic. Patient reports she had received a text from her sister that ignited the feeling of panic, and informs CORE MAN that this episode of panic made her realize that she has been carrying too much with regards to her daughter's cancer dx. Patient states this text was also upsetting as patient has been attempting to set boundaries with her sister and friends around not communication sensitive information via text messaging . Patient and CORE MAN discuss supports. Patient is enrolled in counseling and psychiatry and indicates plans to follow up with both during this week. Patient does express a desire to get home and is worried about her dog. Patient denies SI/HI multiple times during assessment, and informs CORE MAN that she will call for help if she feels these feelings again. Plan RA Plan Patient to be d/c'ed to home when medically clear. RAMAKRISHNA Batista
--- NOTE | 2019-09-16 18:34 | ED.ANXIETY ---
HPI - Anxiety General Chief Complaint: Anxiety Stated Complaint: Anxiety Attack Time Seen by Provider: 09/16/19 10:46 Source: patient and EMS Mode of arrival: EMS History of Present Illness HPI narrative: CC: An acute emotional panic attack HPI: The patient is a 63-year-old female with a history of depression and acute anxiety. She is on Valium 5 mg twice a day and multiple antidepressants. The patient came in crying a.m. and very emotionally upset. She stated that it started yesterday evening after a phone call. However she could not tell me exactly what the trigger what the conversation was that triggered it. She later stated that it was information that involved her family. She states that she has had increased depression since January when her daughter found out that she had cancer. The patient states that she slept last night but this morning woke up and was very emotional and panicked. She took 5 mg of Valium which did not help. She denies a history of diabetes mellitus and but admits to history of asthma. She states that she has migraine headaches. She states that she has had surgery on her cervical spine. She admits to being depressed but is not homicidal or suicidal. The patient states that she just does not want to be alone. She denies any fever chills sweats or headache. She has had a dry cough secondary to her eye asthma and is periodically short of breath. She denies any chest pain palpitations or dizziness. She has had no abdominal pain but has been nauseous. She has had no diarrhea change in bowel habits. She denies any urinary symptoms. Related Data Home Medications Medication Instructions Recorded Confirmed pramipexole [Mirapex] 0.75 mg PO BEDTIME #0 08/30/16 09/12/19 methocarbamol 500 mg tablet 500 mg PO QID PRN 05/28/18 09/12/19 gabapentin 600 mg tablet 600 mg PO TID tab 06/19/18 09/12/19 acetaminophen 500 - 1,000 mg PO Q6H PRN 09/20/18 09/12/19 garlic oil 1 dose PO DIRECTED 09/20/18 09/12/19 ketorolac 60 mg IM .ONCE PRN 09/20/18 09/12/19 oxycodone 5 mg PO QID PRN 09/20/18 09/12/19 sennosides [senna] 17.2 mg PO BEDTIME PRN 09/20/18 09/12/19 furosemide 20 mg tablet 20 mg PO DAILY PRN 10/29/18 09/12/19 potassium chloride 20 mEq 20 meq PO DAILY 10/29/18 09/12/19 tablet,extended release epinephrine 0.3 mg IM PRN PRN 12/18/18 09/12/19 budesonide 32 mcg/actuation nasal 1 spray INTRANASAL BID ml 12/25/18 09/12/19 spray ibuprofen 800 mg tablet 800 mg PO TID PRN 12/25/18 09/12/19 lidocaine 5 % topical ointment 1 applic TOPICAL TID PRN 12/25/18 09/12/19 levalbuterol tartrate 45 2 inhalation INHALATION BID gram 08/26/19 09/12/19 mcg/actuation aerosol inhaler mirtazapine 7.5 mg tablet 7.5 mg PO DAILY 08/26/19 09/12/19 montelukast PO 08/26/19 09/12/19 omeprazole 20 mg capsule,delayed 40 mg PO BID cap 08/26/19 09/12/19 release budesonide-formoterol HFA 80 2 puff INHALATION BID 09/10/19 09/12/19 mcg-4.5 mcg/actuation aerosol inhaler rimegepant 75 mg disintegrating 75 mg PO ONCE PRN 09/10/19 09/12/19 tablet rimegepant 75 mg disintegrating 75 mg PO ONCE PRN 09/12/19 09/12/19 tablet vortioxetine 10 mg tablet 10 mg PO DAILY 09/12/19 09/12/19 Previous Rx's Medication Instructions Recorded Disabled Parking Permit See Rx Instructions .ROUTE 09/26/17 .COMPLEX #1 each diazepam 5 mg tablet 5 mg PO BIDP PRN #60 tab 11/20/17 ondansetron HCl 8 mg tablet 8 mg PO Q12H PRN #20 tab 01/07/19 promethazine 25 mg tablet 25 mg PO Q8H PRN #12 tab 02/11/19 sumatriptan succinate 100 mg tablet 100 mg PO ONCE PRN #14 tab 02/18/19 rizatriptan 10 mg tablet 10 mg PO .COMPLEX PRN #12 tab 03/11/19 sumatriptan succinate 6 mg/0.5 mL 6 mg SUBCUT .COMPLEX #4 ml 03/12/19 subcutaneous pen injector levalbuterol HCl 0.63 mg/3 mL 0.63 mg INHALATION Q8H PRN #90 ml 09/11/19 solution for nebulization Allergies Allergy/AdvReac Type Severity Reaction Status Date / Time Penicillins [PENICILLINS] Allergy Severe Anaphylaxis Verified 09/16/19 10:23 Sulfa (Sulfonamide Allergy Severe RASH Verified 09/16/19 10:23 Antibiotics) [SULFA (SULFONAMIDE ANTIBIOTICS)] sulfamethoxazole Allergy Intermediate RASH Verified 09/16/19 10:23 [From SEPTRA] trimethoprim [From SEPTRA] Allergy Intermediate RASH Verified 09/16/19 10:23 azithromycin Allergy Unknown Verified 09/16/19 10:23 [From ZITHROMAX Z-MARILYN] morphine [MORPHINE] Allergy Unknown Anaphylaxis Verified 09/16/19 10:23 cefuroxime [From Ceftin] Allergy Verified 09/16/19 10:23 cephalexin [From Keflex] Allergy Verified 09/16/19 10:23 ciprofloxacin [From Cipro] Allergy Verified 09/16/19 10:23 latex Allergy Verified 09/16/19 16:30 prednisone AdvReac Severe nausea and Verified 09/16/19 10:23 feels very weak, and axious zonisamide AdvReac Intermediate rash Verified 09/16/19 10:23 verapamil AdvReac Mild Hives Verified 09/16/19 10:23 steroids AdvReac Swelling Uncoded 09/10/19 10:54 of Lip/Tongue/Throat Review of Systems Review of Systems Narrative: The patient's review of systems were difficult to obtain because of her emotional state. However her review of systems were all negative except for those mentioned in the history of present illness. Patient History Medical History Anemia (Chronic) Anxiety (Chronic) Asthma (Chronic) Chronic back pain (Chronic) Chronic cough (Chronic) Depression (Chronic) Femur fracture, left (Resolved) Fibromyalgia (Chronic) Fractures (Chronic) GERD (gastroesophageal reflux disease) (Chronic) Recurrent sinusitis (Chronic) Surgical History Anesthesia (Resolved) History of eye surgery (Resolved ~1973) History of foot surgery (Resolved) History of hysterectomy (Resolved ~1979) History of shoulder surgery (Resolved ~2011) History of tonsillectomy (Resolved ~1975) Family History Mother Heart disease Social History marital status: number of children: 1 household members: none lives independently: Yes caregiver/support person: Yes (3 afternoons per week) pets and animals: Yes occupational status: disabled Smoking Status: Never smoker alcohol intake: never substance use type: does not use Smoking Status: Never smoker alcohol intake frequency: 0-2 drinks per day Substance Use Type: does not use Exam Narrative Exam Narrative: PHYSICAL EXAM: CONSTITUTIONAL: Awake, Alert, she is very upset emotionally. She is crying constantly. HEAD: AT/NC EENT: PERRL, FROM of eyes, . NOSE:No epistaxis or nasal drainage MOUTH:Oral mucosa is moist and pink,. NECK: Supple, no obvious JVD, Trachea is midline without stridor, no palpable LN. SPINE: Palpation of the cervical, Thoracic, Lumbar or Sacral spine reveals no gross deformity or reproducible tenderness. No CVA tenderness. THORAX: No deformity, retractions, chest wall tenderness. LUNGS: Clear, symmetrical breath sounds without respiratory distress. HEART: Normal heart tones, regular rhythm and rate without murmur. ABDOMEN: Soft, non-tender, no guarding, rebound, rigidity or palpable mass. EXTREMITIES: No edema, deformity, or calf tenderness. SKIN: No rash, bruising, petechiae or purpura. NEURO: Awake, alert, cranial nerves II-XII are symmetrical , moves all 4 extremities and is ambulatory. MENTAL HEALTH: Acutely anxious. Initial Vital Signs Initial Vital Signs: Vital Signs Temperature 97.1 F L 09/16/19 10:15 Pulse Rate 76 09/16/19 10:15 Respiratory Rate 32 H 09/16/19 10:15 Blood Pressure 160/96 H 09/16/19 10:15 Pulse Oximetry 97 09/16/19 10:15 Course Course Course Narrative: 1833: Patient was seen by Mack the biomedical equipment tech the patient has been very depressed over situations that have been going on and her family and her daughter finding out that she has cancer in January. The patient is taking Valium for her anxiety. She is afraid that the Valium did not help with her acute anxiety attack and panic attack she experienced today. She thinks that she needs to have a medication on hand as a rescue medication in case she has a known other panic attack. The patient will be placed on Haldol which is what we used here in the emergency department for her acute panic attack in conjunction with Benadryl. The patient was advised to call her counselor and the nurse practitioner Emeterio to make follow-up appointments for her depression Orders Ordered: ED Orders 09/16/19 11:10 Complete Blood Count AUTO DIFF Stat Comprehensive Metabolic Panel Stat Ethanol (ETOH) Stat Thyroid Stimulating Hormone Stat 09/16/19 12:11 Consult to [facility] - Lead Former Stat 09/16/19 14:03 Urine Drug Screen, Rapid Stat Discontinued Medications Albuterol (Ventolin) 2.5 mg INH NOW ONE Stop: 09/16/19 16:58 Last Admin: 09/16/19 17:13 Dose: 2.5 mg Documented by: OTONIEL Diphenhydramine HCl (Benadryl) 25 mg IV NOW ONE Stop: 09/16/19 10:59 Last Admin: 09/16/19 11:17 Dose: 25 mg Documented by: LIBRA Haloperidol (Haldol) 2 mg IV NOW ONE Stop: 09/16/19 10:59 Last Admin: 09/16/19 11:17 Dose: 2 mg Documented by: LIBRA Pramipexole Dihydrochloride (Mirapex) 0.75 mg PO DAILY ONE Stop: 09/16/19 13:11 Last Admin: 09/16/19 13:15 Dose: 0.75 mg Documented by: LIBRA Vital Signs Vital signs: Vital Signs - 8 hr 09/16/19 11:37 09/16/19 11:39 09/16/19 12:00 Pulse Rate 72 73 63 Respiratory Rate 16 Blood Pressure 121/59 L 107/59 L Pulse Oximetry 95 93 95 09/16/19 12:30 09/16/19 12:31 09/16/19 14:17 Pulse Rate 75 65 61 Respiratory Rate Blood Pressure 132/59 L Pulse Oximetry 93 93 94 09/16/19 14:20 09/16/19 14:30 09/16/19 15:00 Pulse Rate 60 69 59 L Respiratory Rate Blood Pressure 97/51 L 98/55 L 90/53 L Pulse Oximetry 97 94 95 09/16/19 15:30 09/16/19 16:00 09/16/19 16:30 Pulse Rate 59 L 56 L 55 L Respiratory Rate Blood Pressure 97/55 L 96/54 L 104/52 L Pulse Oximetry 96 96 97 09/16/19 17:02 09/16/19 17:13 09/16/19 18:40 Pulse Rate 65 72 Respiratory Rate 18 18 Blood Pressure 116/64 Pulse Oximetry 96 96 MDM - Anxiety Lab Data Result diagrams: 09/16/19 11:10 09/16/19 11:10 Labs: Lab Results 09/16/19 09/16/19 09/16/19 Range/Units 11:10 11:10 11:10 WBC 7.6 (4.5-11.0) X10^3/uL RBC 4.21 (4.0-5.2) X10^6/uL Hgb 12.8 (12.0-16.0) g/dL Hct 37.4 (36-46) % MCV 88.9 (80-100) fL MCH 30.3 (26-34) PG MCHC 34.1 (30-36) % RDW 13.8 (11.6-14.8) % Plt Count 320 (150-400) X10^3/uL Neut % (Auto) 63.4 (50-75) % Lymph % (Auto) 26.4 (25-40) % Fleming % (Auto) 7.6 (3-14) % Eos % (Auto) 1.8 L (2-4) % Baso % (Auto) 0.8 (0-2) % Neut # (Auto) 4800 (5148-6495) /uL Lymph # (Auto) 2000 (9814-4689) /uL Fleming # (Auto) 600 (0-900) /uL Eos # (Auto) 100 (0-450) /uL Baso # (Auto) 100 (0-100) /uL Sodium 129 L (137-145) mmol/L Potassium 4.3 (3.4-5.1) mmol/L Chloride 95 L (98-107) mmol/L Carbon Dioxide 27 (22-32) mmol/L BUN 18 H (7-17) mg/dL Creatinine 0.62 (0.52-1.04) mg/dL Estimated GFR > 60.0 (>60) mL/min BUN/Creatinine Ratio 29.0 H (6-22) Glucose 110 (80-110) mg/dL Calcium 9.8 (8.4-10.2) mg/dL Total Bilirubin 0.5 (0.2-1.3) mg/dL AST 46 H (14-36) IU/L ALT 33 (<35) IU/L Alkaline Phosphatase 100 (38-126) U/L Total Protein 7.5 (6.3-8.2) g/dL Albumin 4.4 (3.5-5.0) g/dL Globulin 3.1 (1.7-4.1) g/dL Albumin/Globulin Ratio 1.4 (1.0-2.8) TSH 1.63 (0.47-4.68) uIU/mL U Opiates 300ng/mL cut (Negative) Ur Oxycodone Screen (Negative) Urine Methadone Screen (Negative) Ur Barbiturates Screen (Negative) U Tricyclic Antidepress (Negative) Ur Phencyclidine Scrn (Negative) Ur Amphetamines Screen (Negative) U Methamphetamines Scrn (Negative) Ur MDMA Scrn (Ecstasy) (Negative) U Benzodiazepines Scrn (Negative) Urine Cocaine Screen (Negative) U Marijuana (THC) Screen (Negative) Ethyl Alcohol < 10 ( - 10) mg/dL 09/16/19 Range/Units 14:03 WBC (4.5-11.0) X10^3/uL RBC (4.0-5.2) X10^6/uL Hgb (12.0-16.0) g/dL Hct (36-46) % MCV (80-100) fL MCH (26-34) PG MCHC (30-36) % RDW (11.6-14.8) % Plt Count (150-400) X10^3/uL Neut % (Auto) (50-75) % Lymph % (Auto) (25-40) % Fleming % (Auto) (3-14) % Eos % (Auto) (2-4) % Baso % (Auto) (0-2) % Neut # (Auto) (6639-6086) /uL Lymph # (Auto) (2930-2215) /uL Fleming # (Auto) (0-900) /uL Eos # (Auto) (0-450) /uL Baso # (Auto) (0-100) /uL Sodium (137-145) mmol/L Potassium (3.4-5.1) mmol/L Chloride (98-107) mmol/L Carbon Dioxide (22-32) mmol/L BUN (7-17) mg/dL Creatinine (0.52-1.04) mg/dL Estimated GFR (>60) mL/min BUN/Creatinine Ratio (6-22) Glucose (80-110) mg/dL Calcium (8.4-10.2) mg/dL Total Bilirubin (0.2-1.3) mg/dL AST (14-36) IU/L ALT (<35) IU/L Alkaline Phosphatase (38-126) U/L Total Protein (6.3-8.2) g/dL Albumin (3.5-5.0) g/dL Globulin (1.7-4.1) g/dL Albumin/Globulin Ratio (1.0-2.8) TSH (0.47-4.68) uIU/mL U Opiates 300ng/mL cut Negative (Negative) Ur Oxycodone Screen Negative (Negative) Urine Methadone Screen Negative (Negative) Ur Barbiturates Screen Negative (Negative) U Tricyclic Antidepress Negative (Negative) Ur Phencyclidine Scrn Negative (Negative) Ur Amphetamines Screen Negative (Negative) U Methamphetamines Scrn Negative (Negative) Ur MDMA Scrn (Ecstasy) Negative (Negative) U Benzodiazepines Scrn Negative (Negative) Urine Cocaine Screen Negative (Negative) U Marijuana (THC) Screen Negative (Negative) Ethyl Alcohol ( - 10) mg/dL Discharge Plan Departure Patient Disposition: Home Clinical Impression: Panic state as acute reaction to stress, Anxiety Discharge Date/Time: 09/16/19 18:58 Instructions: DI for Depression -- Adult, DI for Anxiety -- Adult, DI for Panic Disorder Activity Restrictions/Additional Instructions: 1. Call and make follow-up appointment with your counselor. Call and try and make an appointment to be seen and evaluated by your nurse practitioner Morales sooner than October. 2. If you develop another acute panic attack take the Haldol and Benadryl as prescribed. If this does not control your panic attack you need to return to the emergency department. 3. take 2 mg haldol orally as needed for acute anxiety attack along with 50 mg of benadryl 4. Continue taking the rest of your medications as prescribed by your various physicians. Prescriptions: No Action diazepam 5 mg tablet 5 mg PO BIDP PRN (Reason: anxiety/sleep) Qty: 60 RF: 2 methocarbamol [Robaxin] 500 mg tablet 500 mg PO QID PRN (Reason: Spasms) RF: 0 furosemide [Lasix] 20 mg tablet 20 mg PO DAILY PRN (Reason: edema) RF: 0 potassium chloride 20 mEq tablet extended release 20 meq PO DAILY RF: 0 Trintellix 10 mg tablet 10 mg PO DAILY RF: 0 Nurtec ODT 75 mg tablet,disintegrating 75 mg PO ONCE PRNRF: 0 pramipexole [Mirapex] 0.75 MG tablet 0.75 mg PO BEDTIME Qty: 0 RF: 0 Disabled Parking Permit See Rx Instructions .Route .COMPLEX Qty: 1 RF: 0 promethazine 25 mg tablet 25 mg PO Q8H PRN (Reason: nausea and vomiting) Qty: 12 RF: 1 sumatriptan succinate 100 mg tablet 100 mg PO ONCE PRN (Reason: migraine headache) Qty: 14 RF: 3 rizatriptan 10 mg tablet 10 mg PO .COMPLEX PRN (Reason: migraine headache) Qty: 12 RF: 3 sumatriptan succinate 6 mg/0.5 mL pen injector 6 mg SUBCUT .COMPLEX Qty: 4 RF: 6 levalbuterol HCl 0.63 mg/3 mL solution for nebulization 0.63 mg INHALATION Q8H PRN (Reason: shortness of breath or wheezing) Qty: 90 RF: 11 budesonide-formoterol [Symbicort] 80-4.5 mcg/actuation HFA aerosol inhaler 2 puff INHALATION BID RF: 0 Nurtec ODT 75 mg tablet,disintegrating 75 mg PO ONCE PRNRF: 0 montelukast PO RF: 0 mirtazapine 7.5 mg tablet 7.5 mg PO DAILY RF: 0 levalbuterol tartrate [Xopenex HFA] 45 mcg/actuation HFA aerosol inhaler 2 inhalation INHALATION BID RF: 0 oxycodone 5 mg tablet 5 mg PO QID PRN (Reason: pain) RF: 0 sennosides [senna] 8.6 mg Tablet 17.2 mg PO BEDTIME PRN (Reason: Constipation) RF: 0 acetaminophen 500 mg tablet 500 - 1,000 mg PO Q6H PRN (Reason: pain) RF: 0 ketorolac 60 mg/2 mL Syringe 60 mg IM .ONCE PRN (Reason: Migraine Headache) RF: 0 garlic oil 1 dose PO DIRECTED RF: 0 budesonide 32 mcg/actuation spray,non-aerosol 1 spray intranasal BID RF: 0 lidocaine 5 % ointment 1 applic TOPICAL TID PRNRF: 0 epinephrine 0.3 mg/0.3 mL auto-injector 0.3 mg IM PRN PRN (Reason: Allergic Reaction) RF: 0 gabapentin [Neurontin] 600 mg tablet 600 mg PO TID RF: 0 ondansetron HCl [Zofran] 8 mg tablet 8 mg PO Q12H PRN (Reason: nausea and vomiting) Qty: 20 RF: 3 ibuprofen 800 mg tablet 800 mg PO TID PRNRF: 0 omeprazole 20 mg capsule,delayed release(DR/EC) 40 mg PO BID RF: 0 Referrals: Rashad Stafford MD [Primary Care Provider] -
== END 2019-09-16 18:58 | disposition home or self-care (01) ==
PROVIDERS: Emergency Provider Emergency Medicine; PCP Student in an Organized Health Care Education/Training Program
DX: F43.0 Acute stress reaction (principal); F41.9 Anxiety disorder, unspecified; F32.9 Major depressive disorder, single episode, unspecified
CPT/HCPCS: 36415; 51798; 80053; 80305; 80320; 84443; 85025; 94640; 96374; 96375; 99284; J1200; J1630; J7613

== ENCOUNTER → 2019-09-27 14:47 | Outpatient (CLI) | payer OTHER, MEDICAID, SELFPAY ==
[2019-09-28 20:52] LABS: COVID19 Sendout Not Detected (Not Detect)
== END ==
PROVIDERS: PCP Student in an Organized Health Care Education/Training Program; Visit Provider Physician Assistant
DX: Z11.59 Encounter for screening for other viral diseases (principal)
CPT/HCPCS: 87635

== ENCOUNTER → 2019-09-29 15:27 | Outpatient (CLI) | payer OTHER, MEDICAID, SELFPAY ==
--- NOTE | 2019-09-29 15:29 | DI.RAD.S_ITS ---
PROCEDURE: XR KNEE RT 3V INDICATIONS: Knee injury TECHNIQUE: 3 views of the knee were acquired. COMPARISON: [facility], , XR KNEE RT 3V, 09/10/2019, 14:29. [facility], , KNEE 3V LEFT, 01/17/2013, 16:04. FINDINGS: Bones: No fractures or dislocations. No suspicious bony lesions. There is moderate knee joint osteoarthritis, with osteophytic spurring at the patellofemoral joint and to a lesser degree at the medial and lateral compartments but no effusion or loose body is found and no fracture is identified. Soft tissues: No joint effusion. No suspicious soft tissue calcifications. IMPRESSION: Moderate osteoarthritis without trauma. No effusion or loose body seen. Dictated by: Gonzalez Dsouza M.D. on 09/29/2019 at 16:43 Approved by: Gonzalez Dsouza M.D. on 09/29/2019 at 16:43
== END ==
PROVIDERS: PCP Student in an Organized Health Care Education/Training Program; Referring Provider Student in an Organized Health Care Education/Training Program; Visit Provider Student in an Organized Health Care Education/Training Program
DX: M25.561 Pain in right knee (principal); M17.11 Unilateral primary osteoarthritis, right knee
CPT/HCPCS: 73562

== ENCOUNTER 2019-09-30 12:38 | Observation (INO) | payer OTHER, MEDICAID, SELFPAY ==
[2019-09-23 13:44] VITALS: BMI 32.5
[2019-09-30] VITALS (16 sets, daily range): BP systolic 117–147; BP diastolic 50–96; PULSE 65–89; RESP 11–21; TEMP 36.1–36.8; O2SAT 92–98; BMI 32.5
--- NOTE | 2019-09-30 | DI.RAD.S_ITS ---
PROCEDURE: XR CERVICAL SPINE 2V OR 3V INDICATIONS: C45 56 CERVICAL DISCECTOMY AND FUSION TECHNIQUE: 2 intraoperative view(s) of the cervical spine were acquired. COMPARISON: [facility], MR, MR CERVICAL SPINE WO CON, 07/30/2019, 15:41. [facility], CR, XR CERVICAL SPINE 2V OR 3V, 06/27/2018, 12:12. FINDINGS: Identification of the C4-C5 and C5-C6 levels. Endotracheal tube. IMPRESSION: Intraoperative guidance provided for cervical spine procedure. Dictated by: Gio Castellanos M.D. on 09/30/2019 at 15:44 Approved by: Gio Castellanos M.D. on 09/30/2019 at 15:45
--- NOTE | 2019-09-30 13:03 | PM.PREOP ---
Pre-operative Note COVID-19 COVID-19 status: Negative Result date/Date tested (Pos, Neg/Pending): 09/27/19 Interval Note History & Physical reviewed/Exam performed by Physician: Yes Changes to H&P: No
[2019-09-30] MEDS: LACTATED RINGERS 1,000 ML 42 ML IV (13:28)
[2019-09-30] MEDS: ALBUTEROL 2.5 MG/3 ML NEB (ADULT) INH (13:43)
--- NOTE | 2019-09-30 13:46 | P.OP_ITS ---
Operative Date/Time/Diagnoses Date of procedure: 09/30/19 Time of procedure: 15:28 Pre-op diagnosis: cervical stenosis with myelopathy Post-op diagnosis: same Procedure & Clinicians Procedure: C4-5 and C5-6 ACDF with cages Iliac crest bone graft aspirate Use of microscope Same procedure as scheduled: Yes Indications: [age] year old female with progressive myelopathy from stenosis. They had failed conservative management and requested operative intervention. Risks and benefits of surgery were discussed and appropriate consents were obtained. Surgeon: Hank Silva Beauty Sales Consultant: Kristy Brandon Anesthesia Type: General Operative Notes Findings: none Closure Type: primary Specimen(s): none sent Prosthetic devices, grafts, tissues, transplants, or devices: Joana JOSE ALBERTO-C Estimated Blood Loss (mL): 5 Blood products transfused: none Procedure in detail: Patient was brought to the operating room and intubated on the table. A time-out was performed. Preoperative antibiotics were given. The neck was prepped and draped in the standard sterile fashion. Using a skin fold, we made a 3 cm oblique incision on the left side. We used Bovie to go through the platysma and then did a standard anterolateral blunt dissection down to the precervical fascia. Fascia was nicked and elevated up. A marker was placed and x-ray was taken for localization. We then subperiosteally elevated up the longus colli muscles. Self-retaining retractors were placed. Washington pins were placed. We then brought in the microscope. A scalpel used to perform an annulotomy. We then used a combination of pituitaries and curettes and Kerrison to perform a complete anterior diskectomy at C4-5. We used the bur to take down the posterior osteophytes. We took down the PLL and used Kerrison to remove any posterior disc material and osteophytes. At the end we could from the nerve hook cephalad caudally and out the foramen and everything was opened. A small stab incision was made over the left anterior iliac crest. A Jamshidi needle was advanced into the pelvis and 2 mL of bone marrow was aspirated. We then used the trials. We then packed a 12 x 14 x 5 mm JOSE ALBERTO-C cage with Primagen bone graft and the iliac crest harvest. The cage was placed under fluoroscopic guidance. We then placed our two locking plates. The self- retaining retractors and Washington pins were moved down to the C5-6 level. We again performed a complete diskectomy and prep of the endplates. We took down the PLL and removed the posterior osteophytes and disc material. In the end we could sweep the nerve hook throughout and everything was open. We placed another 12 x 14 x 5 mm cage with bone graft and placed it in the C5-6 disc space under fluoroscopic guidance. We placed our 2 locking plates. The retractors were removed and final x-rays taken. The wound was irrigated. There was no bleeding. The carotid was beating nicely. The platysma was closed. The superficial was closed. The skin was closed. A sterile dressing was placed. They were then extubated and brought to recovery room with no complications. Complications: none Post-operative Condition: stable Disposition: PACU Plan for aftercare: Inpatient. Up with PT.
--- NOTE | 2019-09-30 13:52 | SUR.PREOP ---
Breathing treatment given as ordered.
[2019-09-30] MEDS: CLINDAMYCIN 900 MG/50 ML PIGGYBACK 50 MG IV (14:10)
--- NOTE | 2019-09-30 14:52 | SUR.OPER ---
Supine on padded OR bed, head on gel donut, towel between shoulder blades, arms padded and tucked at side, legs uncrossed, safety belt at thigh, tape over blanket over lower legs .
[2019-09-30] MEDS: BUPIVACAINE 0.25% W/ EPI 30 ML VIAL 60 ML INJ (15:00)
[2019-09-30] MEDS: THROMBIN (RECOMBINANT) 5,000 UNIT VIAL 5000 UNIT TOP (15:00)
[2019-09-30] MEDS: SODIUM CHLORIDE 0.9% 1,000 ML, GENTAMICIN 80 MG IRR (15:02)
[2019-09-30] MEDS: HYDROMORPHONE 2 MG INJ IV ×2 (15:50→15:59)
[2019-09-30] MEDS: hydrOXYzine 50 MG/ML INJ 25 MG IM (15:54)
[2019-09-30] MEDS: LORazepam 2 MG/ML INJ 0.5 MG IV ×2 (16:03→16:27)
[2019-09-30] MEDS: ONDANSETRON 4 MG/2 ML INJ IV (16:06)
[2019-09-30] MEDS: fentaNYL 100 MCG/2 ML INJ IV ×2 (16:07→16:10)
[2019-09-30] MEDS: OXYCODONE IR 5 MG TABLET PO (16:41)
[2019-09-30] MEDS: ACETAMINOPHEN 325 MG TABLET 975 MG PO (16:42)
--- NOTE | 2019-09-30 16:51 | SUR.PHASEI ---
Lungs CTA on assessment. Patient appears to be resting more comfortably.
[2019-09-30] MEDS: diazePAM 5 MG TABLET PO ×2 (17:52→21:28)
[2019-09-30] MEDS: LACTATED RINGERS 1,000 ML 125 ML IV (17:58)
[2019-09-30] MEDS: diphenhydrAMINE 25 MG TABLET PO (19:30)
[2019-09-30] MEDS: OXYCODONE/ACETAMINOPHEN 5/325 TABLET 2 TAB PO (19:30)
[2019-09-30] MEDS: LEVALBUTEROL HFA 200 PUFF INH INH (20:19)
[2019-09-30] MEDS: Budesonide-Formoterol [Symbicort] 2 EACH INH (20:19)
[2019-09-30] MEDS: HYDROMORPHONE 0.5 MG INJ 0.2 MG IV (21:27)
[2019-09-30] MEDS: DOCUSATE 100 MG CAPSULE PO (21:28)
[2019-09-30] MEDS: GABAPENTIN 600 MG TABLET PO (21:28)
[2019-09-30] MEDS: CLINDAMYCIN 600 MG/50 ML PIGGYBACK 50 MG IV (21:29)
[2019-09-30] MEDS: PRAMIPEXOLE 0.25 MG TABLET 0.75 MG PO (21:29)
[2019-09-30] MEDS: PANTOPRAZOLE 40 MG TABLET PO (21:30)
[2019-09-30] MEDS: SENNOSIDES 8.6 MG TABLET 17.2 MG PO (21:30)
[2019-10-01] MEDS: OXYCODONE/ACETAMINOPHEN 5/325 TABLET 2 TAB PO ×2 (00:40→06:01)
[2019-10-01] MEDS: methocarbamoL 500 MG TABLET 750 MG PO ×2 (00:40→07:29)
[2019-10-01 01:05] VITALS: BP 117/79; PULSE 81; RESP 16; TEMP 36.8; O2SAT 94
[2019-10-01] MEDS: LACTATED RINGERS 1,000 ML 125 ML IV (02:27)
[2019-10-01] MEDS: HYDROMORPHONE 0.5 MG INJ IV (02:41)
[2019-10-01] MEDS: CLINDAMYCIN 600 MG/50 ML PIGGYBACK 50 MG IV (06:03)
[2019-10-01] MEDS: PANTOPRAZOLE 40 MG TABLET PO ×2 (07:29→20:15)
[2019-10-01] MEDS: ACETAMINOPHEN 325 MG TABLET 650 MG PO ×2 (07:30→20:08)
[2019-10-01] MEDS: DOCUSATE 100 MG CAPSULE PO ×2 (07:30→20:09)
[2019-10-01] MEDS: GABAPENTIN 600 MG TABLET PO ×3 (07:30→20:09)
[2019-10-01] MEDS: diazePAM 5 MG TABLET PO ×2 (07:30→20:09)
--- NOTE | 2019-10-01 07:51 | PM.PNPO.1 ---
Subjective Subjective Date Patient Seen: 10/01/19 Time Patient Seen: 07:51 Interval history: She is still having significant pain in the neck and required IV pain medication overnight. Feeling still little unsteady on her feet. However, I am very pleased with her surgery as all of her arm symptoms have resolved. She had not realized how bad they were. Exam Vital Signs (past 8 hours): - 10/01/19 01:05 Temperature 98.2 F Pulse Rate 81 Respiratory Rate 16 Blood Pressure 117/79 Pulse Oximetry 94 Oxygen Delivery Method Room Air Oxygen Flow Rate 0 Const Orientation: alert and oriented x3 Back/Spine/Pelvis Other: CDI. 5/5 motor both upper extremities. Assessment & Plan Post-op Postoperative Procedures: Procedures Operation Date: 09/30/19 14:15 Actual Procedures Side Surgeon p C45 & C56 anterior cervical discectomy & fusion w. cage & bone graft Hank Silva MD she is having issues with pain control but overall normal postoperative course. Mobilize today with physical therapy. If she is steady on her feet and has good pain control and possibly could go home today but more likely tomorrow. She lives upstairs and has a dog that she has to take up and down stairs repeatedly throughout the day. She will need to be very steady with stairs before going. She is doing much better on the delighted that the oxycodone and request to be switched over to the p.o. Dilaudid as well.
[2019-10-01 08:00] VITALS: BP 129/71; PULSE 71; RESP 19; TEMP 36.6; O2SAT 96
--- NOTE | 2019-10-01 08:43 | OT.IP.EVAL ---
Current Diagnoses Other spondylosis with myelopathy, cervical region (09/30/19) Spinal stenosis, cervical region (09/30/19) Other cervical disc degeneration, unspecified cervical region (09/30/19) Surgery Performed Operation Date: 09/30/19 14:15 Actual Procedures p C45 & C56 anterior cervical discectomy & fusion w. cage & bone graft - Hank Silva MD Past Medical History (Last Updated 09/23/19 @ 14:34 by Radha Mckeon RN) Anemia (Chronic) Anxiety (Chronic) Asthma (Chronic) Chronic back pain (Chronic) Chronic cough (Chronic) Depression (Chronic) Femur fracture, left (Resolved) Fibromyalgia (Chronic) Fractures (Chronic) GERD (gastroesophageal reflux disease) (Chronic) Hiatal hernia (Acute) Recurrent sinusitis (Chronic) Surgical History (Last Updated 09/23/19 @ 14:30 by Radha Mckeon RN) Anesthesia (Resolved) History of eye surgery (Resolved ~1973) History of foot surgery (Resolved) History of hysterectomy (Resolved ~1979) History of shoulder surgery (Resolved ~2011) History of tonsillectomy (Resolved ~1975) Hx of bilateral cataract extraction (Acute) Occupational Therapy Inpatient Evaluation/Re-Eval M2 OT-IP Current Condition Start: 10/01/19 13:22 Freq: Status: Active Protocol: Document 10/01/19 08:43 [facility] (Rec: 10/01/19 13:37 [facility] [id number]) Occupational Therapy Current Condition Current Condition Evaluation Date 10/01/19 Treatment Diagnosis Cervical stenosis, s/p C4-5, c5-6 anterior cervical discectomy and fusion Diagnosis Onset Date 09/30/19 Post Operative Precautions Cervical Spine Precautions Soft Collar at all Times,No Heavy Lifting,Log Roll M3 OT- IP Subjective and Pain Start: 10/01/19 13:22 Freq: Status: Active Protocol: Document 10/01/19 08:43 [facility] (Rec: 10/01/19 13:37 [facility] [id number]) OT- Subjective Occupational Therapy Visit Type Type Initial Evaluation Visit Start Time 08:43 Visit Stop Time 09:28 Total Visit Minutes 45 Occupational Therapy Visit Comments Patient Comments Pt agreed to do OT eval. Patient/Caregiver Goals TO go home tomorrow. OT Pain Assessment Pain When Pain Assessed During Mobility Pain Present Pain Present Pain Reported Location neck Intensity 5 Scale Used Numeric (0 - 10) M4 OT- IP ADL's Start: 10/01/19 13:22 Freq: Status: Active Protocol: Document 10/01/19 08:43 [facility] (Rec: 10/01/19 13:37 [facility] [id number]) OT FLM-[id number] General Evaluation Self-Feeding Ability Independent Comments OT Self-Feeding Comments Able to go over information regarding swallowing and eating needs after cervical surgery. Pt able to state good understanding. OT ADL-Grooming Comments OT Grooming Comments Educated to spit into a cup to best follow her cervical precautions. OT ADL-Oral Care General Eval Oral Care Ability Independent OT ADL-Dressing General Eval Lower Body Dressing Ability Standby Assistance Comments OT Dressing Comments Pt able to comfortable cross her legs over to put on her slip on shoes. Pt needing initial education to alex the soft collar as initally pt had it on too loose. OT ADL-Toileting General Evaluation Toileting Ability Standby Assistance Comments OT Toileting Comments Pt able to do her hygiene needs, just needing assist for set-up. OT ADL-Bathing Comments OT Bathing Comments Pt wanting to shower tomorrow. M5 OT- IP IADL's Start: 10/01/19 13:22 Freq: Status: Active Protocol: Document 10/01/19 08:43 [facility] (Rec: 10/01/19 13:37 [facility] [id number]) OT-Instrumental Activities of Daily Living Home Safety Awareness Ability to Problem Solve Emergency Able to Problem Solve Situations Medication Management Medication Management No Deficits Identified Money Management Money Management No Deficits Identified Meal Preparation Meal Preparation Comments Pt states has frozen meals and already prepared meals ahead of time. Pt to have groceried delivered to her. M6 OT- IP Functional Cognition Start: 10/01/19 13:22 Freq: Status: Active Protocol: Document 10/01/19 08:43 [facility] (Rec: 10/01/19 13:37 [facility] [id number]) Cognitive Factors Limiting Selfcare Function Cognitive Ability Level of Alertness Alert Patient Orientation Name,Age,Birthday,Month,Date, Year,Day of Week,Place, Situation Attention Span Ability Capable of Focused Attention, Capable of Sustained Attention Ability to Follow Commands Able to Follow Multi-Step Commands Memory Description No Deficits Noted Safety Awareness No Deficits Noted Problem Solving Ability No deficits Noted Cognitive Comments Cognitive Assessment Comments No cognitive deficits noted on OT eval at this time. OT- Vision and Hearing OT- Hearing Assessment OT- Hearing Assessment WFL OT- Vision Assessment Visual Acuity WFL M7 OT- IP Mobility and Balance Start: 10/01/19 13:22 Freq: Status: Active Protocol: Document 10/01/19 08:43 [facility] (Rec: 10/01/19 13:37 [facility] [id number]) OT- Bed Mobility Assessment Rolling Type of Rolling Roll to Left Level of Assistance Standby Assistance Supine to Sit Supine to Sit Assist Standby Assistance OT-Transfer Assessment Sit to and From Stand Sit to and from Stand Standby Assistance Transfers Transfer Ability Standby Assistance Technique Transfer Destination Bed,Chair,Toilet Transfer Technique Stand Step Pivot Devices Transfer Assistive Devices None,Gait Belt Comments Mobility Comments SBA without a device. Able to educated pt on log rolling to prevent from pt using momentum of her trunk/head while trying to get up. Able to educated pt to place pillow/folded blankets under her elbows while seated to help support the weight of her arms to help provide relief for her neck muscles. OT- Balance Assessment Sitting Balance and Reactions Static Sitting Balance Ability Normal Dynamic Sitting Balance Ability Normal Standing Balance and Reactions Static Standing Balance Ability Good Dynamic Standing Balance Ability Good M8 OT- IP Objective Assessments Start: 10/01/19 13:22 Freq: Status: Active Protocol: Document 10/01/19 08:43 [facility] (Rec: 10/01/19 13:37 [facility] [id number]) OT Sensation Assessment Comments Summary Comments Pt notes tingling sensation in hands, but able to use hands better now. M9 OT- IP Assessment and Plan Start: 10/01/19 13:22 Freq: Status: Active Protocol: Document 10/01/19 08:43 [facility] (Rec: 10/01/19 13:37 [facility] [id number]) OT Summary Assessment and Plan Potential Rehabilitation Potential Good Analytic Complexity at Evaluation Low Summary OT Impairments Functional Mobility,Grooming, Dressing,Toileting,Bathing, Toilet Transfers,Shower Transfers,Activity Tolerance Progress Towards Goals Progressing Toward Goals Assessment Summary Pt low complexity and main barrier is multiple steps and having to take her dog out 4 times a day. Pt states will probably keep her dog at the day care for a few more days as she recovers. Pt states does not have anyone to assist with her needs. Pt wanting to shower tomorrow prior to going home. Goals Grooming Goal Independent Dressing Goal Independent Toileting Goal Independent Bathing Goal Independent Toilet Transfer Goal Independent Shower Transfer Goal Independent Patient/Caregiver Education Goal Demonstrate Post-Op Precautions Days to Meet Goals 2 Frequency of Treatment Frequency Of Treatment Once a Day Treatment Plan OT Treatment Plan ADL Training,Functional Mobility,Patient/Family Education,Discharge Planning Other Treatment Recommendations and Next shower Treatment Focus Discharge Recommendations OT Discharge Recommendations Home with Assistance Other Discharge Recommendations Pt if not able to keep her dog at day care would benefit from someone to assist to take the dog out and for heavy IADl needs. Transportation Needs at Discharge Private Vehicle
[2019-10-01] MEDS: HYDROMORPHONE 2 MG TABLET PO ×2 (08:46→10:12)
[2019-10-01] MEDS: SUMAtriptan 25 MG TABLET 100 MG PO (09:17)
--- NOTE | 2019-10-01 10:00 | PT.IIE ---
Current Diagnoses Other spondylosis with myelopathy, cervical region (09/30/19) Spinal stenosis, cervical region (09/30/19) Other cervical disc degeneration, unspecified cervical region (09/30/19) Surgery Performed Operation Date: 09/30/19 14:15 Actual Procedures p C45 & C56 anterior cervical discectomy & fusion w. cage & bone graft - Hank Silva MD Surgical History (Last Updated 09/23/19 @ 14:30 by Radha Mckeon RN) Anesthesia (Resolved) History of eye surgery (Resolved ~1973) History of foot surgery (Resolved) History of hysterectomy (Resolved ~1979) History of shoulder surgery (Resolved ~2011) History of tonsillectomy (Resolved ~1975) Hx of bilateral cataract extraction (Acute) Medical History (Last Updated 09/23/19 @ 14:34 by Radha Mckeon RN) Anemia (Chronic) Anxiety (Chronic) Asthma (Chronic) Chronic back pain (Chronic) Chronic cough (Chronic) Depression (Chronic) Femur fracture, left (Resolved) Fibromyalgia (Chronic) Fractures (Chronic) GERD (gastroesophageal reflux disease) (Chronic) Hiatal hernia (Acute) Recurrent sinusitis (Chronic) Physical Therapy Inpatient Evaluation/Re-Eval M1 PT/OT-IP Prior Functional Status Start: 10/01/19 12:28 Freq: NEEDED Status: Active Protocol: Document 10/01/19 10:00 [facility] (Rec: 10/01/19 12:42 [facility] [id number]) Medical Review Prior Functional Status Medical History Reviewed Yes Communication able to make needs known Mobility and Gait pt stated that she is independent with all mobilities and ambulation without AD Social History Household Members none Living Arrangements Apartment/Condo Number of Floors (Floors) One Floor Number of Stairs To Enter/Railing? 4 steps L rail +landing+4steps R rail + landing + 12 steps R rail + 2 steps without rail to get to her apartment pt lives in a 2nd floor apartment Home Environment Standard Height Toilet,Walk in Shower Home Equipment Straight Cane,Shower Seat without Backrest,Hand Held Shower,Grab Bars In Shower Additional Social History Comment pt sleeps on her couch M2 PT-IP Current Condition Start: 10/01/19 12:28 Freq: NEEDED Status: Active Protocol: Document 10/01/19 10:00 [facility] (Rec: 10/01/19 12:42 AB [id number]) Physical Therapy Current Condition Current Condition Evaluation Date 10/01/19 Treatment Diagnosis s/p C4-5, C5-6 ACDF; difficulty in walking Onset Date 09/30/19 Precautions Cervical Spine Precautions Soft Collar for Comfort,No Heavy Lifting,Log Roll M3 PT-IP Subjective Start: 10/01/19 12:28 Freq: NEEDED Status: Active Protocol: Document 10/01/19 10:00 [facility] (Rec: 10/01/19 12:42 AB [id number]) Subjective Physical Therapy Visit Type Type Initial Evaluation Visit Start Time 10:00 Visit Stop Time 10:39 Total Visit Minutes 39 Number of DISTRICT COMMERCIAL SUPERINTENDENT Visits 0 Physical Therapy Visit Comments Patient Comments pt is agreeable to do PT Therapy Pain Assessment Pain When Pain Assessed At Rest Pain Present Pain Present Pain Reported Location neck Intensity 8 Scale Used Numeric (0 - 10) Pain Management Techniques Apply Cold,Re-positioning, Timing of Activity with Medications M4 PT-IP Mobility and Gait Start: 10/01/19 12:28 Freq: NEEDED Status: Active Protocol: Document 10/01/19 10:00 [facility] (Rec: 10/01/19 12:42 AB [id number]) PT-Bed Mobility Assessment Rolling Type of Rolling Log Rolling Level of Assist Standby Assistance Supine to Sit Supine to Sit Standby Assistance Sit to Supine Sit to Supine Standby Assistance Scooting Scooting to Edge of Bed Standby Assistance PT-Transfer Assessment Sit to and From Stand Sit to and from Stand Standby Assistance Equipment Transfer Assistive Device None,Gait Belt Orthotic/Prosthetic Devices or Brace: Yes Transfers Transfer Destination Bed,Toilet Transfer Technique Stand Step Pivot Transfer Ability Level of Assist Standby Assistance Comments Mobility Comments pt completed sit to stand from chair SBA. ambulated in room SBA without AD. requested to use the toilet and ambulated without AD SBA. pt ambulated from the toilet to the sink SBA and was able to maintian standing SBA while completing handwashing. agreed to ambulate in hallway and completed ~ 350 ft towards the stairs without AD SBA. completed stair climbing. ambulated back to her room and requested to go back to bed. completed log roll supine <> sit SBA. positioned pt in bed . call light and table placed within reach. Gait Assessment Gait Gait Assistance Required: Standby Assistance Distance (Feet) 350 Able to Maintain Weight Bearing Status Yes During Gait Assistive Devices Assistive Device None,Gait Belt Gait Deviations General Gait Pattern Antalgic,Lateral Trunk Lean Factors Limiting Gait Function Factors Limiting Gait Function Decreased Strength,Limited Range of Motion,Pain Comments Gait Comments ambulated in hallway ~ 350 ft x 2 SBA without AD. presents with antalgic gait but without LOB. Stair Climbing Assessment Evaluation Level of Assist On Stairs Standby Assistance Devices Stair Climbing Assistive Devices None,Left Railing,Right Railing Technique/Endurance Stair Climbing Direction Ascend and Descend Stair Climbing Technique Step Over Step Number of Steps Climbed 3 Query Text: Stair Climbing Set # Repetitions (reps) 7 Comments Stair Climbing Comments completed up/down steps using L rail only and then just R rails and also completed without use of any rails. PT-Balance Assessment Sitting Balance and Reactions Static Sitting Balance Ability Normal Dynamic Sitting Balance Ability Normal Standing Balance and Reactions Static Standing Balance Ability Good Dynamic Standing Balance Ability Good Device Used without AD M5 PT-IP Objective Assessments Start: 10/01/19 12:28 Freq: NEEDED Status: Active Protocol: Document 10/01/19 10:00 [facility] (Rec: 10/01/19 12:42 AB [id number]) Orientation Orientation/Cognition Level of Alertness Alert Orientation Name,Age,Birthday,Month,Date, Year,Day of Week,Place, Situation Language Function Ability No Deficits Noted Safety Awareness Understands Safety Issues Memory Description No Deficits Noted Gross Range of Motion Lower Extremity ROM Assessment Within Functional Limits Strength Lower Extremity Strength Hip 4-/5 Knee 4-/5 Coordination Assessment Gross Coordination Gross Coordination WNL Sensation Assessment Sensation Gross Sensation WNL Muscle Tone Muscle Tone WNL Yes M6 PT-IP Treatment Start: 10/01/19 12:28 Freq: NEEDED Status: Active Protocol: Document 10/01/19 10:00 AB (Rec: 10/01/19 12:42 AB [id number]) Physical Therapy Treatment Education Education Provided Precautions,Post-Op Packet, Safety M7 PT-IP Assessment and Plan Start: 10/01/19 12:28 Freq: NEEDED Status: Active Protocol: Document 10/01/19 10:00 AB (Rec: 10/01/19 12:42 AB [id number]) PT Summary Assessment and Plan Potential Rehabilitation Potential Good Status of Condition at Evaluation Stable Summary Impairments Pain,ROM,Strength,Balance, Coordination,Bed Mobility, Transfers,Gait,Activity Tolerance Assessment Summary pt requiring SBA with all mobilities and ambulation without AD. completed stair climbing SBA without rails. pt may go home when medically stable. Goals Bed Mobility Goal Independent Transfer Goal Independent Gait Goal Independent Gait Distance 350 Other Goals up/down 22 steps 1 rail +2 steps without rails SBA Days to Meet Goals 5 Frequency of Treatment Frequency Of Treatment Twice a Day Treatment Plan Physical Therapy Treatment Plan Bed Mobility Training,Transfer Training,Gait Training, Therapeutic Exercise,Balance Retraining,Post Op Education, Discharge Planning,Hot or Cold Pack,Neuromuscular Re-ed, Coordination Retraining,Manual Therapy Other Recommendations and Next Treatment ambulation, stair climbing Focus Recommendations To Nursing Amount of Assist Needed Standby Assistance Discharge Recommendations PT Discharge Recommendations Home Transportation Needs at Discharge Private Vehicle
[2019-10-01] MEDS: hydrOXYzine pamoate 25 MG CAPSULE PO (10:12)
[2019-10-01] MEDS: MAGNESIUM HYDROXIDE 30 ML UDC PO (10:20)
[2019-10-01 10:43] VITALS: PULSE 73; RESP 16; O2SAT 95
[2019-10-01 12:00] VITALS: BP 137/75; PULSE 70; RESP 16; TEMP 36.8; O2SAT 94
[2019-10-01] MEDS: HYDROMORPHONE 4 MG TABLET PO ×4 (13:11→23:52)
[2019-10-01] MEDS: diphenhydrAMINE 25 MG TABLET PO (13:11)
[2019-10-01] MEDS: POTASSIUM CHLORIDE 20 MEQ TAB PO (13:28)
[2019-10-01] MEDS: FUROSEMIDE 20 MG TABLET PO (13:28)
--- NOTE | 2019-10-01 13:56 | PT.IPTN ---
Current Diagnoses Other spondylosis with myelopathy, cervical region (09/30/19) Spinal stenosis, cervical region (09/30/19) Other cervical disc degeneration, unspecified cervical region (09/30/19) Surgery Performed Operation Date: 09/30/19 14:15 Actual Procedures p C45 & C56 anterior cervical discectomy & fusion w. cage & bone graft - Hank Silva MD Physical Therapy Treatment Note M2 PT-IP Current Condition Start: 10/01/19 12:28 Freq: NEEDED Status: Active Protocol: Document 10/01/19 10:00 AB (Rec: 10/01/19 12:42 AB [id number]) Physical Therapy Current Condition Current Condition Evaluation Date 10/01/19 Treatment Diagnosis s/p C4-5, C5-6 ACDF; difficulty in walking Onset Date 09/30/19 Precautions Cervical Spine Precautions Soft Collar for Comfort,No Heavy Lifting,Log Roll M3 PT-IP Subjective Start: 10/01/19 12:28 Freq: NEEDED Status: Active Protocol: Document 10/01/19 13:56 AB (Rec: 10/01/19 16:03 AB [email or web address]) Subjective Physical Therapy Visit Type Type Treatment Note Visit Start Time 13:56 Visit Stop Time 14:18 Total Visit Minutes 22 Number of NEONATAL CRITICAL CARE NURSE Visits 0 Physical Therapy Visit Comments Patient Comments pt is agreeable to do PT Therapy Pain Assessment Pain When Pain Assessed At Rest Pain Present Pain Present Pain Reported Location neck Intensity 7 Scale Used Numeric (0 - 10) Pain Management Techniques Re-positioning,Timing of Activity with Medications M4 PT-IP Mobility and Gait Start: 10/01/19 12:28 Freq: NEEDED Status: Active Protocol: Document 10/01/19 13:56 AB (Rec: 10/01/19 16:03 AB [id number]) PT-Bed Mobility Assessment Rolling Type of Rolling Log Rolling Level of Assist Standby Assistance Supine to Sit Supine to Sit Standby Assistance Scooting Scooting to Edge of Bed Standby Assistance PT-Transfer Assessment Sit to and From Stand Sit to and from Stand Standby Assistance Equipment Transfer Assistive Device Gait Belt Transfers Transfer Destination Chair Transfer Technique ambulated without AD Transfer Ability Level of Assist Standby Assistance Comments Mobility Comments completed log roll bed mobility supine to sit SBA. ambulated without AD > 350 ft SBA. requested to use the toilet and ambulated towards the toilet SBA. was able to complete toileting without assist. requested to sit up on chair. positioned on chair . call light and table placed within reach. Gait Assessment Gait Gait Assistance Required: Standby Assistance Distance (Feet) 350 Able to Maintain Weight Bearing Status Yes During Gait Assistive Devices Assistive Device Gait Belt Gait Deviations General Gait Pattern Antalgic Factors Limiting Gait Function Factors Limiting Gait Function Decreased Strength,Limited Range of Motion,Pain M5 PT-IP Objective Assessments Start: 10/01/19 12:28 Freq: NEEDED Status: Active Protocol: Document 10/01/19 10:00 AB (Rec: 10/01/19 12:42 AB [id number]) Orientation Orientation/Cognition Level of Alertness Alert Orientation Name,Age,Birthday,Month,Date, Year,Day of Week,Place, Situation Language Function Ability No Deficits Noted Safety Awareness Understands Safety Issues Memory Description No Deficits Noted Gross Range of Motion Lower Extremity ROM Assessment Within Functional Limits Strength Lower Extremity Strength Hip 4-/5 Knee 4-/5 Coordination Assessment Gross Coordination Gross Coordination WNL Sensation Assessment Sensation Gross Sensation WNL Muscle Tone Muscle Tone WNL Yes M6 PT-IP Treatment Start: 10/01/19 12:28 Freq: NEEDED Status: Active Protocol: Document 10/01/19 13:56 AB (Rec: 10/01/19 16:03 AB [email or web address]) Physical Therapy Treatment Education Education Provided Precautions,Safety M7 PT-IP Assessment and Plan Start: 10/01/19 12:28 Freq: NEEDED Status: Active Protocol: Document 10/01/19 13:56 AB (Rec: 10/01/19 16:03 AB [email or web address]) PT Summary Assessment and Plan Potential Rehabilitation Potential Good Summary Impairments Pain,ROM,Strength,Balance,Bed Mobility,Transfers,Gait, Activity Tolerance Progress Towards Goals Progressing Toward Goals Assessment Summary pt progressing well with mobility and requires SBA with ambulation without AD. pt may go home when medically stable. Pt did well with stair climbing this morning and did not want to do it again this afternoon and stated that she feels confident with doing stairs. pt is aware of her precautions . Tx frequency changed to just once a day due to pt's good progress in mobility and does not require BID tx sessions. Goals Bed Mobility Goal Independent Transfer Goal Independent Gait Goal Independent Gait Distance 350 Other Goals up/down 22 steps 1 rail +2 steps without rails SBA Days to Meet Goals 5 Frequency of Treatment Frequency Of Treatment Once a Day Treatment Plan Physical Therapy Treatment Plan Bed Mobility Training,Transfer Training,Gait Training, Therapeutic Exercise,Balance Retraining,Post Op Education, Discharge Planning,Hot or Cold Pack,Neuromuscular Re-ed, Coordination Retraining,Manual Therapy Other Recommendations and Next Treatment ambulation, stair climbing Focus Recommendations To Nursing Amount of Assist Needed Standby Assistance Discharge Recommendations PT Discharge Recommendations Home Transportation Needs at Discharge Private Vehicle
[2019-10-01] MEDS: METOCLOPRAMIDE HCL 5 MG TABLET PO (14:35)
--- NOTE | 2019-10-01 14:48 | CM.IDA ---
Initial DCP Assessment Note Pt is a 63 yo female, resident of [place], now POD#1 from C45 & C56 anterior cervical discectomy & fusion w. cage & bone graft by Dr Silva PCP: Rashad Stafford Payer: [facility] [employer]/[facility] Reviewed chart, pt discussed in multidisciplinary rounds this morning. Met w/patient this afternoon as theraoy was finishing eval- Therapy has cleared pt for return home and pt has planned for home, DC expected or Sunday. No needs expected from DC planning team although will remain available in case this changes . RAMAKRISHNA Fischer
[2019-10-01 17:00] VITALS: BP 121/65; PULSE 73; RESP 17; TEMP 36.8; O2SAT 95
--- NOTE | 2019-10-01 18:57 | PC.NURSE ---
Pt up to bathroom with one assist. States urgency with lasix. Soft collar off and this machine sign writer encouraged machine sign writer to wear for comfort as c/o pain 09/21. Allevyn gentle border dressing visible left anterior neck. Collar replaced. Noted pt has erythema to left lower abdominal quadrant in outline of what may be previous dressing. Pt reports this area is weeping. This is not noted by this machine sign writer. Pt requests a dressing to cover this entire area. Large allevyn gentle border dressing placed to cover erythema with no intact blisters. Encouraged I.S. use and this was made available to pt. Ice packs also available and encouraged. Pt was instructed not to attempt out of bed without assistance now that is receiving dilaudid to manage pain.
[2019-10-01 19:00] VITALS: BP 115/52; PULSE 78; RESP 16; TEMP 36.4; O2SAT 93
[2019-10-01] MEDS: SENNOSIDES 8.6 MG TABLET 17.2 MG PO (20:09)
[2019-10-01] MEDS: Budesonide-Formoterol [Symbicort] 2 EACH INH (20:10)
[2019-10-01] MEDS: SODIUM CHLORIDE 0.9% FLUSH 10 ML IV (20:15)
[2019-10-01] MEDS: PRAMIPEXOLE 0.25 MG TABLET 0.75 MG PO (20:59)
[2019-10-02 00:04] VITALS: BP 132/80; PULSE 77; RESP 20; TEMP 36.5; O2SAT 95
[2019-10-02] MEDS: HYDROMORPHONE 4 MG TABLET PO ×2 (02:59→07:31)
[2019-10-02] MEDS: ACETAMINOPHEN 325 MG TABLET 650 MG PO ×2 (02:59→08:41)
[2019-10-02 05:27] VITALS: BP 123/69; RESP 16; TEMP 35.9
[2019-10-02] MEDS: PANTOPRAZOLE 40 MG TABLET PO (06:19)
--- NOTE | 2019-10-02 06:47 | PM.PNPO.1 ---
Subjective Subjective Date Patient Seen: 10/02/19 Time Patient Seen: 06:47 Interval history: She is doing much better. Pain is about 5/10 and well controlled with Dilaudid. Up and walking around well Exam Vital Signs (past 8 hours): - 10/02/19 00:04 10/02/19 05:27 Temperature 97.7 F 96.7 F L Pulse Rate 77 Respiratory Rate 20 16 Blood Pressure 132/80 123/69 Pulse Oximetry 95 Oxygen Delivery Method Room Air Oxygen Flow Rate 0 Const Orientation: alert and oriented x3 Back/Spine/Pelvis Other: CDI. 5/5 motor both upper extremities. Assessment & Plan Post-op Postoperative Procedures: Procedures Operation Date: 09/30/19 14:15 Actual Procedures Side Surgeon p C45 & C56 anterior cervical discectomy & fusion w. cage & bone graft Hank Silva MD she is doing well. Plan to discharge home this morning.
[2019-10-02 08:15] VITALS: BP 136/68; PULSE 136; RESP 18; TEMP 36.4; O2SAT 95
[2019-10-02] MEDS: GABAPENTIN 600 MG TABLET PO (08:41)
[2019-10-02] MEDS: diazePAM 5 MG TABLET PO (08:41)
[2019-10-02] MEDS: DOCUSATE 100 MG CAPSULE PO (08:41)
[2019-10-02 08:59] VITALS: PULSE 78; RESP 17; O2SAT 96
[2019-10-02] MEDS: LEVALBUTEROL 0.63 MG/3 ML NEB INH (08:59)
--- NOTE | 2019-10-02 09:20 | OT.IP.TRT ---
Current Diagnoses Other spondylosis with myelopathy, cervical region (09/30/19) Spinal stenosis, cervical region (09/30/19) Other cervical disc degeneration, unspecified cervical region (09/30/19) Surgery Performed Operation Date: 09/30/19 14:15 Actual Procedures p C45 & C56 anterior cervical discectomy & fusion w. cage & bone graft - Hank Silva MD Occupational Therapy Treatment Note M2 OT-IP Current Condition Start: 10/01/19 13:22 Freq: Status: Active Protocol: Document 10/01/19 08:43 [facility] (Rec: 10/01/19 13:37 [facility] [id number]) Occupational Therapy Current Condition Current Condition Evaluation Date 10/01/19 Treatment Diagnosis Cervical stenosis, s/p C4-5, c5-6 anterior cervical discectomy and fusion Diagnosis Onset Date 09/30/19 Post Operative Precautions Cervical Spine Precautions Soft Collar at all Times,No Heavy Lifting,Log Roll M3 OT- IP Subjective and Pain Start: 10/01/19 13:22 Freq: Status: Active Protocol: Document 10/02/19 09:53 [facility] (Rec: 10/02/19 10:01 [facility] [id number]) OT- Subjective Occupational Therapy Visit Type Type Treatment Note Visit Start Time 09:20 Visit Stop Time 09:50 Total Visit Minutes 30 Occupational Therapy Visit Comments Patient Comments Pt wanting to shower. Patient/Caregiver Goals TO go home. OT Pain Assessment Pain When Pain Assessed At Rest Pain Present Pain Present Denied Pain M4 OT- IP ADL's Start: 10/01/19 13:22 Freq: Status: Active Protocol: Document 10/02/19 09:53 [facility] (Rec: 10/02/19 10:01 [facility] [id number]) OT [id number] Comments OT Self-Feeding Comments Pt states realizes has to chew her food more thoroughly and eat softer foods initially. OT ADL-Grooming General Evaluation Grooming Ability Independent OT ADL-Dressing General Eval Upper Body Dressing Ability Independent Lower Body Dressing Ability Independent Comments OT Dressing Comments Pt chosing not to wear the soft collar. OT ADL-Toileting General Evaluation Toileting Ability Independent OT ADL-Bathing General Evaluation Bathing Ability Independent M5 OT- IP IADL's Start: 10/01/19 13:22 Freq: Status: Active Protocol: Document 10/01/19 08:43 [facility] (Rec: 10/01/19 13:37 [facility] [id number]) OT-Instrumental Activities of Daily Living Home Safety Awareness Ability to Problem Solve Emergency Able to Problem Solve Situations Medication Management Medication Management No Deficits Identified Money Management Money Management No Deficits Identified Meal Preparation Meal Preparation Comments Pt states has frozen meals and already prepared meals ahead of time. Pt to have groceries delivered to her. M6 OT- IP Functional Cognition Start: 10/01/19 13:22 Freq: Status: Active Protocol: Document 10/02/19 09:53 [facility] (Rec: 10/02/19 10:01 [facility] [id number]) Cognitive Factors Limiting Selfcare Function Cognitive Comments Cognitive Assessment Comments Pt just needing occasional safety awareness to sit to wash her legs and to do LB dressing needs. Pt able to do LB dressing while standing but safer to do LB dressing while seated for now. M7 OT- IP Mobility and Balance Start: 10/01/19 13:22 Freq: Status: Active Protocol: Document 10/02/19 09:53 [facility] (Rec: 10/02/19 10:01 [facility] [id number]) OT-Transfer Assessment Sit to and From Stand Sit to and from Stand Independent Transfers Transfer Ability Independent Technique Transfer Destination Chair,Shower Stall,Toilet Transfer Technique Stand Step Pivot Devices Transfer Assistive Devices None Comments Mobility Comments Independent with no devices in the room. OT- Balance Assessment Sitting Balance and Reactions Static Sitting Balance Ability Normal Dynamic Sitting Balance Ability Normal Standing Balance and Reactions Static Standing Balance Ability Normal Dynamic Standing Balance Ability Good M8 OT- IP Objective Assessments Start: 10/01/19 13:22 Freq: Status: Active Protocol: Document 10/01/19 08:43 [facility] (Rec: 10/01/19 13:37 [facility] [id number]) OT Sensation Assessment Comments Summary Comments Pt notes tingling sensation in hands, but able to use hands better now. M9 OT- IP Assessment and Plan Start: 10/01/19 13:22 Freq: Status: Active Protocol: Document 10/02/19 09:53 [facility] (Rec: 10/02/19 10:01 [facility] [id number]) OT Summary Assessment and Plan Potential Rehabilitation Potential Good Analytic Complexity at Evaluation Low Summary Progress Towards Goals Safe For Discharge Assessment Summary Pt looking to go home today. Pt realizes at this time would be best to have her dog longer in day care so that she can recover longer and have more energy to be able to do the multiple steps 4 times a day to take her dog out. Pt doing well and needing occasional vc to sit fro dressing needs. Frequency of Treatment Frequency Of Treatment Discharge Discharge Recommendations OT Discharge Recommendations Home Transportation Needs at Discharge Private Vehicle
[2019-10-02] MEDS: hydrOXYzine pamoate 25 MG CAPSULE PO (09:32)
--- NOTE | 2019-10-02 09:57 | PT-IP ANOTE ---
Pt refused further therapy services today, stating she is capable to perform ADLs on her own. Reviewed precautions and encouraged pt to mobilize frequently.
--- NOTE | 2019-10-02 10:47 | PC.NURSE ---
Pt discharge instructions/precautions reviewed with pt and pt was given hard copy Rx's, reviewed stroke education per protocol, pt reminded to drink plenty of fluids to prevent constipation and no driving while on narcotics, pt belongings and home meds with pt, pt in wheel chair and aid walked pt to door with friend.
== END 2019-10-02 10:57 | disposition home or self-care (01) ==
LOC: OR 12:40 → AC 12:41
PROVIDERS: Admitting Provider Orthopaedic Surgery; PCP Student in an Organized Health Care Education/Training Program; Referring Provider Student in an Organized Health Care Education/Training Program; Visit Provider Orthopaedic Surgery
PROC: (CPT 22853; principal; 2019-09-30 14:15)
DX: M47.12 Other spondylosis with myelopathy, cervical region (principal); M48.02 Spinal stenosis, cervical region; M50.021 Cervical disc disorder at C4-C5 level with myelopathy; F41.9 Anxiety disorder, unspecified; F32.9 Major depressive disorder, single episode, unspecified; K21.9 Gastro-esophageal reflux disease without esophagitis; K44.9 Diaphragmatic hernia without obstruction or gangrene; M79.7 Fibromyalgia
CPT/HCPCS: 22853 ×2; 22551; 22552; 20939; 72040; 76000; 94640; 97116; 97161; 97165; 97530; 97535; C1776; G0378; J0330; J1170; J2060; J2250; J2405; J2704; J3010; J3410; J7613; J7614

== ENCOUNTER → 2019-10-13 16:43 | Outpatient (CLI) | payer OTHER, MEDICAID, SELFPAY ==
[2019-09-30 17:30] VITALS: BMI 32.5
--- NOTE | 2019-10-13 | DI.RAD.S_ITS ---
PROCEDURE: XR CHEST 2V INDICATIONS: WEAKNESS TECHNIQUE: 2 views of the chest were acquired. COMPARISON: [facility], CR, XR CHEST 1V, 08/24/2019, 15:42. [facility], CR, XR CHEST 2V, 08/09/2018, 11:30. FINDINGS: Surgical changes and devices: None. Lungs and pleura: Lungs are clear. No pleural effusions or pneumothorax. Mediastinum: Mediastinal contours are normal. Heart size is within normal limits. Bones and chest wall: No suspicious bony abnormalities. Left humerus ORIF. Soft tissues appear unremarkable. IMPRESSION: No acute cardiopulmonary abnormality. Dictated by: Gio Castellanos M.D. on 10/13/2019 at 17:03 Approved by: Gio Castellanos M.D. on 10/13/2019 at 17:04
[2019-10-13 17:28] LABS: Add Manual Diff / Slide Review NO; Basophils Absolute Auto 100 /uL (0-100); Basophils Percent Auto 0.9 % (0-2); Eosinophils Absolute Auto 100 /uL (0-450); Eosinophils Percent Auto 1.7 % (2-4); Hematocrit 37.3 % (36-46); Hemoglobin 12.3 g/dL (12.0-16.0); Lymphocytes Absolute Auto 2800 /uL (1100-4500); Lymphocytes Percent Auto 32.1 % (25-40); Mean Corpuscular Hemoglobin 29.3 PG (26-34); Mean Corpuscular Volume 88.7 fL (80-100); Monocytes Absolute Auto 600 /uL (0-900); Monocytes Percent Auto 6.4 % (3-14); Neutrophils Absolute Auto 5100 /uL (1500-7000); Neutrophils Percent Auto 58.9 % (50-75); Platelet Count 390 X10^3/uL (150-400); Red Cell Distribution Width 14.1 % (11.6-14.8); White Blood Cell Count 8.6 X10^3/uL (4.5-11.0)
[2019-10-13 17:48] LABS: Alanine Aminotransferase 31 IU/L (<35); Albumin 4.3 g/dL (3.5-5.0); Albumin Globulin Ratio 1.3 (1.0-2.8); Alkaline Phosphatase 108 U/L (38-126); Aspartate Aminotransferase 36 IU/L (14-36); BUN Creatinine Ratio 16.7 (6-22); Bilirubin Total 0.5 mg/dL (0.2-1.3); Blood Urea Nitrogen 12 mg/dL (7-17); Calcium 9.8 mg/dL (8.4-10.2); Carbon Dioxide 28 mmol/L (22-32); Chloride 101 mmol/L (98-107); Estimated Glomerular Filt Rate > 60.0 mL/min (>60); Globulin 3.3 g/dL (1.7-4.1); Glucose 102 mg/dL (80-110); HEMOLYSIS < 15 (0-50); Potassium 4.2 mmol/L (3.4-5.1); Sodium 135 mmol/L (137-145); Total Protein 7.6 g/dL (6.3-8.2)
[2019-10-13 19:06] LABS: TSH w/ Reflex to FT4 1.61 uIU/mL (0.47-4.68)
== END ==
PROVIDERS: PCP Internal Medicine; Referring Provider Physician Assistant; Visit Provider Physician Assistant
DX: R53.1 Weakness (principal); Z98.890 Other specified postprocedural states; Z98.1 Arthrodesis status
CPT/HCPCS: 36415; 71046; 80053; 84443; 85025

== ENCOUNTER 2019-10-26 08:32 | Observation (INO) | payer MEDICARE, MEDICAID, SELFPAY ==
[2019-09-30 17:30] VITALS: BMI 32.5
[2019-10-26] VITALS (21 sets, daily range): BP systolic 125–162; BP diastolic 74–103; PULSE 16–106; RESP 11–28; TEMP 36.6–37.1; O2SAT 94–99; BMI 32.8
--- NOTE | 2019-10-26 08:39 | DI.RAD.S_ITS ---
PROCEDURE: XR CHEST 1V INDICATIONS: severe SOB TECHNIQUE: One view of the chest was acquired. COMPARISON: [facility], CR, XR CHEST 2V, 10/13/2019, 16:21. FINDINGS: Surgical changes and devices: Proximal left humeral surgical hardware. Lungs and pleura: Question mild interstitial pulmonary edema. No pleural effusions or pneumothorax. Mediastinum: Mediastinal contours appear normal. Top normal heart size. Mild to moderate hiatal hernia. Bones and chest wall: No suspicious bony lesions. Overlying soft tissues appear unremarkable. IMPRESSION: 1. Question mild interstitial pulmonary edema. 2. Hiatal hernia. Dictated by: Michael Serrato M.D. on 10/26/2019 at 8:56 Approved by: Michael Serrato M.D. on 10/26/2019 at 8:57
[2019-10-26] MEDS: IPRATROPIUM/ALBUTEROL PREPACK 1 BOX MISC (08:45)
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
[2019-10-26 09:23] LABS: Add Manual Diff / Slide Review NO; Basophils Absolute Auto 100 /uL (0-100); Basophils Percent Auto 0.8 % (0-2); Eosinophils Absolute Auto 100 /uL (0-450); Eosinophils Percent Auto 0.9 % (2-4); Hematocrit 31.4 % (36-46); Hemoglobin 10.7 g/dL (12.0-16.0); Lymphocytes Absolute Auto 1800 /uL (1100-4500); Lymphocytes Percent Auto 21.2 % (25-40); Mean Corpuscular HGB Conc 33.9 % (30-36); Mean Corpuscular Hemoglobin 29.8 PG (26-34); Mean Corpuscular Volume 87.8 fL (80-100); Monocytes Absolute Auto 800 /uL (0-900); Monocytes Percent Auto 9.5 % (3-14); Neutrophils Absolute Auto 5700 /uL (1500-7000); Neutrophils Percent Auto 67.6 % (50-75); Platelet Count 257 X10^3/uL (150-400); Red Blood Cell Count 3.57 X10^6/uL (4.0-5.2); Red Cell Distribution Width 14.2 % (11.6-14.8); White Blood Cell Count 8.4 X10^3/uL (4.5-11.0)
[2019-10-26 09:34] LABS: D Dimer 292 ng/mL (<230)
[2019-10-26 09:38] LABS: Creatine Kinase 249 U/L (30-135)
[2019-10-26 09:42] LABS: C-Reactive Protein Quant < 0.5 mg/dL (<1.0)
[2019-10-26 09:47] LABS: COVID19 -Nasal RAPID Negative (Negative)
[2019-10-26 09:47] LABS: NT-proBNP (BNP-Adult 18+) 84 pg/mL (<125); Troponin I < 0.012 ng/mL (0.01-0.034)
[2019-10-26 09:50] LABS: CKMB % Relative Index 1.8 % (1.5-5.0); Creatine Kinase MB 4.36 ng/mL (<2.37)
[2019-10-26 09:52] LABS: Procalcitonin < 0.05 ng/mL (<0.5)
[2019-10-26] MEDS: ALBUTEROL/IPRATROPIUM 3 ML AMPUL 6 ML INH (10:04)
[2019-10-26] MEDS: ALBUTEROL/IPRATROPIUM 3 ML AMPUL INH (10:22)
[2019-10-26] MEDS: methylPREDNISolone 125 MG/2 ML VIAL IV (10:41)
[2019-10-26] MEDS: MAGNESIUM SULFATE 2 GM/50 ML PIGGYBACK IV (10:41)
--- NOTE | 2019-10-26 11:14 | PC.NURSE ---
mag ran at 200ml/hr per curj for respiratory treatment.
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
[2019-10-26] MEDS: GABAPENTIN 600 MG TABLET PO ×2 (14:17→22:18)
[2019-10-26] MEDS: IBUPROFEN 600 MG TABLET PO (14:18)
[2019-10-26] MEDS: ENOXAPARIN 40 MG/0.4 ML SYRINGE SUBCUT (14:18)
[2019-10-26] MEDS: methocarbamoL 500 MG TABLET 750 MG PO (14:18)
[2019-10-26] MEDS: ALBUTEROL 2.5 MG/3 ML NEB (ADULT) INH ×3 (15:21→22:12)
[2019-10-26 16:04] LABS: NT-proBNP (BNP-Adult 18+) 121 pg/mL (<125)
[2019-10-26] MEDS: BUDESONIDE 0.5 MG/2 ML NEB INH (19:00)
[2019-10-26] MEDS: OXYCODONE/ACETAMINOPHEN 5/325 TABLET 1 TAB PO (19:44)
[2019-10-26] MEDS: diazePAM 5 MG TABLET PO (22:19)
[2019-10-26] MEDS: PRAMIPEXOLE 0.25 MG TABLET 0.5 MG PO (22:20)
--- NOTE | 2019-10-26 22:48 | PC.NURSE ---
home meds 2245 Per verbal order from ILAN Chen. Pt took home meds Casc[place] 350mg x2 and Trintellix 10mg x1. Remaining pills/bottles labeled and placed in night pharmacy.
[2019-10-27] VITALS (12 sets, daily range): BP systolic 117–160; BP diastolic 59–97; PULSE 72–101; RESP 16–20; TEMP 36.2–36.8; O2SAT 94–100
[2019-10-27] MEDS: MIRTAZAPINE 7.5 MG TABLET PO (00:16)
[2019-10-27] MEDS: ALBUTEROL 2.5 MG/3 ML NEB (ADULT) INH ×6 (04:37→22:24)
[2019-10-27] MEDS: OXYCODONE/ACETAMINOPHEN 5/325 TABLET 1 TAB PO ×4 (04:41→20:38)
[2019-10-27] MEDS: PANTOPRAZOLE 40 MG TABLET PO ×2 (05:42→17:25)
[2019-10-27] MEDS: ENOXAPARIN 40 MG/0.4 ML SYRINGE SUBCUT (08:00)
[2019-10-27] MEDS: GABAPENTIN 600 MG TABLET PO ×3 (08:00→20:29)
[2019-10-27] MEDS: diazePAM 5 MG TABLET PO ×3 (08:13→20:29)
--- NOTE | 2019-10-27 08:21 | PM.PN.1 ---
Subjective Subjective Date Patient Seen: 10/27/19 Interval history: The patient is a 63-year-old female who was admitted to the hospital yesterday for an acute asthma exacerbation. Patient reports she had difficulty sleeping last night. She did not get her scheduled nebulizer while sleeping. She feels more short of breath today. In addition the patient complains of some neck pain. She has had recent cervical surgery. Patient is peak flow in the emergency department was 80 and then increase to 130. Her peak flow today is 275. Patient is adamant that she does not feel safe or ready to return home. Exam Vital Signs (past 8 hours): - 10/27/19 04:41 10/27/19 04:51 10/27/19 07:48 Temperature 97.4 F L Pulse Rate 101 H 72 81 Respiratory Rate 18 18 16 Blood Pressure 146/97 H Pulse Oximetry 94 99 95 10/27/19 07:53 Temperature Pulse Rate Respiratory Rate Blood Pressure Pulse Oximetry 100 Oxygen Delivery Method Room Air Oxygen Flow Rate 0 Narrative Exam Narrative: 63-year-old female lying in bed in no acute respiratory distress Lungs: Decreased breath sounds but clear to auscultation Cardiac exam: Regular rate and rhythm normal S1-S2 with a 2/6 systolic ejection murmur Abdomen: Soft nontender nondistended Extremities: No edema Objective Labs Result Diagrams: 10/26/19 09:11 Labs: Laboratory Results - last 24 hr 10/26/19 10/26/19 10/26/19 09:11 09:11 09:11 WBC 8.4 RBC 3.57 L Hgb 10.7 L Hct 31.4 L MCV 87.8 MCH 29.8 MCHC 33.9 RDW 14.2 Plt Count 257 Neut % (Auto) 67.6 Lymph % (Auto) 21.2 L [place] % (Auto) 9.5 Eos % (Auto) 0.9 L Baso % (Auto) 0.8 Neut # (Auto) 5700 Lymph # (Auto) 1800 [place] # (Auto) 800 Eos # (Auto) 100 Baso # (Auto) 100 D-Dimer 292 H Total Creatine Kinase CK-MB (CK-2) CK-MB (CK-2) Rel Index Troponin I C-Reactive Protein NT-Pro-B Natriuret Pep Procalcitonin < 0.05 COVID-19 PCR 09/13/20 09/13/20 09/13/20 09:11 09:25 15:31 WBC RBC Hgb Hct MCV MCH MCHC RDW Plt Count Neut % (Auto) Lymph % (Auto) [place] % (Auto) Eos % (Auto) Baso % (Auto) Neut # (Auto) Lymph # (Auto) [place] # (Auto) Eos # (Auto) Baso # (Auto) D-Dimer Total Creatine Kinase 249 H CK-MB (CK-2) 4.36 H CK-MB (CK-2) Rel Index 1.8 Troponin I < 0.012 C-Reactive Protein < 0.5 NT-Pro-B Natriuret Pep 84 121 Procalcitonin COVID-19 PCR Negative Assessment & Plan Assessment & Plan narrative: 1. Acute asthma exacerbation -will continue IV Solu-Medrol, albuterol nebulizers around the clock, and peak flow measurements daily -hopefully with 24 hours her treatment the patient will be ready for discharge home tomorrow -no evidence of pneumonia, will not start antibiotic therapy at this time -patient reports allergy to prednisone, will need to anticipate discharging on oral Solu-Medrol high is steroids continue to be needed 2. Migraine headache -continue Imitrex as needed 3. Neck pain -STATUS POST CERVICAL SPINE SURGERY -will continue intermittent pain medication 4. Fibromyalgia -continue ibuprofen as needed 5. Hypokalemia -will check electrolytes to determine whether potassium continues to be needed. Patient is admitted under observation. Anticipate discharge home within the next 24 hours. Quality VTE Deep Vein Thrombosis/Pulmonary Embolism Present on Admission: No
[2019-10-27] MEDS: IBUPROFEN 600 MG TABLET PO (08:26)
[2019-10-27] MEDS: SODIUM CHLORIDE 0.9% FLUSH 10 ML IV ×2 (09:16→20:31)
--- NOTE | 2019-10-27 11:20 | CM.DANOTE ---
DCP/Assessment: Reviewed chart. Patient is a 63yr old female admitted to I.. with SOB. PCP is Dr. Brown. Primary payor is 1)Medicare 2)Self pay. Met with patient explained CM/SW role. Patient up I in room at time of visit. Patient reports that she has very bad asthma which has made it very hard for her to breathe with the smoke in the outside air. Patient uses inhalers at home and does not need home 02. Patient reports that she resides with her dog whom is currently at [facility]. Patient concerned about discharging from I.. too early? QUALITY CONTROL ENGINEER and Dr. Johnson met together with patient to let her know that d/c is anticipated for tomorrow. Patient appeared anxious. Notified patient that if she felt like she needed to stay some place and get care QUALITY CONTROL ENGINEER could provide her with respite and/or SNF list and rates. Patient reports no that's okay. During visit patient reports weakness but has been ambulating in room I. Dr. Johnson ordered PT evaluation. Encouraged patient to work on breathing techniques and eliminating time outside while there is smoke in the air. Patient agreeable but still unsure if she will be ready to d/c tomorrow? Patient notified by Dr. Johnson unless anything changes medically patient will be stable enough to go home. Patient reports that she will attempt to reach her friend/family for transport. QUALITY CONTROL ENGINEER spoke with PT/Nabor about the above. He will see her later today. P: Home tomorrow 10-28-19 unless there is a change in patient's medical status. Patient aware of plan. RAMAKRISHNA Villalba Discharge Planning/Care Management CM Discharge Assessment Start: 10/27/19 11:00 Freq: Status: Active Protocol: Document 10/27/19 11:00 KJS (Rec: 10/27/19 11:20 [facility] [id number]) Discharge Planning Assessment Assigned Enrollment Management Coordinator RAMAKRISHNA Vlilalba Contact Information Lisa Zazueta (daughter) [phone] Advance Directives? No History Provided By Patient,Medical Record Prior Living Arrangements House Household Members none Type of transporation used prior to Drives own vehicle admit Independent with ADL's Yes Is patient alert and oriented? Yes Caregiver for Another No Comment Bone stimulator that she uses daily for approximately 4hrs after spinal surgery. Barriers to Discharge No Discharge Plan Home Transportation Arrangement Family/friend to provide transport. Referrals Initiated None needed Whiteboard Updated in Patient Room with Yes name and ext. # of Enrollment Management Coordinator Review Status In Process Next Review Type Continued Stay Review
--- NOTE | 2019-10-27 11:28 | DI.ECHO.S_ITS ---
Echocardiogram Report + + :Name: YADIRA HAN Study Date: 10/27/2019 Height: 63 in : :[facility] Weight: 185 lb : : Gender: Female BSA: 1.9 m2 : :: 1955 Age: 63 yrs BP: 152/83 mmHg: :Reason For Study: SHORTNESS OF BREATH : :Ordering Physician: : :[facility] Performed By: Honey Topete : :Referring: LINWOOD LOVETT : + + Interpretation Summary The ejection fraction is estimated to be 65-70%. The ascending aorta is mildly enlarged. There is no pericardial effusion. There is no significant valvular heart disease. Procedure: A two-dimensional transthoracic echocardiogram with color flow and Doppler was performed. The study quality was technically adequate. There is no prior echocardiogram noted for this patient. The heart rate ranged between 84-98 bpm during the study. Left Ventricle: The left ventricle is normal in size and wall thickness. The ejection fraction is estimated to be 65-70%. Left ventricular wall motion is normal. Diastolic function could not be accurately assessed due to contradictory data. Right Ventricle: The right ventricle is normal in size and function. Atria: The left atrium is mildly dilated. The right atrium is mildly dilated. There is no Doppler evidence for an interatrial shunt. Mitral Valve: The mitral valve is normal in structure and function. There is trace mitral regurgitation. Aortic Valve: The aortic valve is trileaflet. The aortic valve opens well. There is no aortic valve stenosis. No aortic regurgitation is present. Tricuspid Valve: The tricuspid valve is normal in structure and function. There is mild tricuspid regurgitation. Pulmonic Valve: The pulmonic valve leaflets are thin and pliable; valve motion is normal. There is no pulmonic valvular regurgitation. Great Vessels: The aortic root is normal size. The ascending aorta is mildly enlarged. The IVC is of normal diameter and collapses greater than 50% with a sniff. This suggests a low right atrial pressure of 3 mm Hg. Pericardium/ Pleura There is no pericardial effusion. There is no pleural effusion. MMode/2D Measurements & Calculations LVIDd: 5.0 cm LVOT diam: 2.0 cm LVIDs: 3.0 cm Ao root diam: 3.1 cm FS: 40.3 % asc Aorta Diam: 3.6 cm EPSS: 0.62 cm Ao Arch Diam (Prox Trans): 3.2 cm IVSd: 1.1 cm LVPWd: 0.79 cm LV daniels. diameter/BSA (cm/m^2): 2.7 LV sys. diameter/BSA (cm/m^2): 1.6 LA A2 area: 18.0 cm2 RA long axis: 5.8 cm LA A4 area: 26.7 cm2 RA area: 21.5 cm2 LA length (vol): 6.1 cm RA vol: 68.4 ml LA vol: 67.1 ml RA : 36.6 ml/m2 LA vol index: 35.9 ml/m2 IVC diam: 1.8 cm RVD1 (basal): 3.9 cm TAPSE: 2.9 cm Doppler Measurements & Calculations Ao V2 max: 176.4 cm/sec LVOT Max Vic: 149.0 cm/sec Ao V2 mean: 107.3 cm/sec LV V1 max P.9 mmHg Ao max P.4 mmHg LV V1 VTI: 30.3 cm Ao mean P.8 mmHg JEREMIE(I,D): 3.1 cm2 Ao V2 VTI: 29.7 cm JEREMIE(V,D): 2.5 cm2 sev ratio: 1.0 JEREMIE indexed to BSA (cm^2/m^2): 1.6 MV E max vic: 83.1 cm/sec TR max vic: 280.6 cm/sec MV A max vic: 110.4 cm/sec TR max P.5 mmHg MV E/A: 0.75 PA pr(Accel): 7.1 mmHg Med Peak E' Vic: 9.1 cm/sec E/E' med: 9.1 Lat Peak E' Vic: 11.3 cm/sec E/E' lat: 7.4 E/e' average: 8.2 MV dec time: 0.19 sec SV(LVOT): 91.1 ml Reading Physician:02:21 PM
--- NOTE | 2019-10-27 12:40 | PT.IIE ---
Surgical History (Last Reviewed 10/26/19 @ 14:17 by Edda Johnson MD) Anesthesia (Resolved) History of eye surgery (Resolved ~1973) History of foot surgery (Resolved) History of hysterectomy (Resolved ~1979) History of shoulder surgery (Resolved ~2011) History of tonsillectomy (Resolved ~1975) Hx of bilateral cataract extraction (Acute) Medical History (Last Reviewed 10/26/19 @ 14:17 by Edda Johnson MD) Anemia (Chronic) Anxiety (Chronic) Asthma (Chronic) Chronic back pain (Chronic) Chronic cough (Chronic) Depression (Chronic) Femur fracture, left (Resolved) Fibromyalgia (Chronic) Fractures (Chronic) GERD (gastroesophageal reflux disease) (Chronic) Hiatal hernia (Acute) Recurrent sinusitis (Chronic) Physical Therapy Inpatient Evaluation/Re-Eval M1 PT/OT-IP Prior Functional Status Start: 10/27/19 11:37 Freq: NEEDED Status: Active Protocol: Document 10/27/19 12:24 HH (Rec: 10/27/19 12:40 [id number]) Medical Review Prior Functional Status Medical History Reviewed Yes Diet/Fluid Consistency Regular Communication no deficits noted. able to make needs known Mobility and Gait independent for all mobility without AD. Able to climb stairs daily with step over pattern without rail most of the time. Activities of Daily Living and IADL's independent for all ADLs. Pt did have a CG assisted her grocery shopping and errands during COVID Social History Household Members none Living Arrangements House Number of Floors (Floors) One Floor Number of Stairs To Enter/Railing? a total of 10-12 steps to entrance with R rail (landings in between) Home Environment Standard Height Toilet Home Equipment Grab Bars In Shower Employment Status Unemployed Additional Social History Comment Patient reports that she resides with her dog whom is currently at [facility]. Pt had a recent cervical surgery about [address] Silva. Pt uses a cervical support for 4 hrs a day. M2 PT-IP Current Condition Start: 10/27/19 11:37 Freq: NEEDED Status: Active Protocol: Document 10/27/19 12:24 HH (Rec: 10/27/19 12:40 [id number]) Physical Therapy Current Condition Current Condition Evaluation Date 10/27/19 Treatment Diagnosis Acute asthma exacerbation, weakness Onset Date 10/26/19 Precautions Cervical Spine Precautions Soft Collar for Comfort,Rigid Collar,No Heavy Lifting,Log Roll Weight Bearing Status Weight Bearing Status Full Weight Bearing M3 PT-IP Subjective Start: 10/27/19 11:37 Freq: NEEDED Status: Active Protocol: Document 10/27/19 12:24 HH (Rec: 10/27/19 12:40 [id number]) Subjective Physical Therapy Visit Type Type Initial Evaluation Visit Start Time 11:50 Visit Stop Time 12:14 Total Visit Minutes 24 Number of GAS PLANT REPAIRER Visits 0 Physical Therapy Visit Comments Patient Comments pt denies discomfort. Agreed to mobilize with PT Patient Goals to return home witohut SOB. Therapy Pain Assessment Pain When Pain Assessed After Treatment Pain Present Pain Present Pain Reported Location Neck Intensity 5 Scale Used Numeric (0 - 10) Description Aching Pain Management Techniques Apply Cold,Timing of Activity with Medications M4 PT-IP Mobility and Gait Start: 10/27/19 11:37 Freq: NEEDED Status: Active Protocol: Document 10/27/19 12:24 HH (Rec: 10/27/19 12:40 [id number]) PT-Bed Mobility Assessment Rolling Type of Rolling Roll to Left Level of Assist Independent Supine to Sit Supine to Sit Independent PT-Transfer Assessment Sit to and From Stand Sit to and from Stand Independent Equipment Transfer Assistive Device None Orthotic/Prosthetic Devices or Brace: No Transfers Transfer Destination Bed,Chair Transfer Technique Stand Step Pivot Transfer Ability Level of Assist Independent Comments Mobility Comments Pt was in bed upon PT arrival. Pt recognized this PT who was her primary PT last year for her cervical treatment. Pt is AxO x 4 and agreed to mobilize with PT. Pt completed log roll to L and sat up at EOB indpeendently. She then stood up without UE push off and stand unsupportedly. She amb with this PT half of the AC unit indpeendently and completed stairs climbing 12 steps x 2 set with / without rail and step over pattern safely. She then returned to room and sat in chair safely without LOB. Pt did report of slight SOB after amb but able to recover within 10 seconds. Call light placed within reach and hand off to RN for pain medication of her C/S., Gait Assessment Gait Gait Assistance Required: Independent Distance (Feet) 320 Able to Maintain Weight Bearing Status Yes During Gait Assistive Devices Assistive Device None Orthotic/Prosthetic Devices or Brace: No Gait Deviations General Gait Pattern Within Normal Limits Factors Limiting Gait Function Factors Limiting Gait Function Respiratory Distress Comments Gait Comments see mobility comments Stair Climbing Assessment Evaluation Level of Assist On Stairs Independent Devices Stair Climbing Assistive Devices Right Railing Technique/Endurance Stair Climbing Direction Ascend and Descend Stair Climbing Technique Step to Step Number of Steps Climbed 12 Query Text: Stair Climbing Set # Repetitions (reps) 2 Comments Stair Climbing Comments see mobility comments PT-Balance Assessment Sitting Balance and Reactions Static Sitting Balance Ability Normal Dynamic Sitting Balance Ability Normal Standing Balance and Reactions Static Standing Balance Ability Normal Dynamic Standing Balance Ability Normal Device Used none M5 PT-IP Objective Assessments Start: 10/27/19 11:37 Freq: NEEDED Status: Active Protocol: Document 10/27/19 12:24 (Rec: 10/27/19 12:40 [id number]) Orientation Orientation/Cognition Level of Alertness Alert Orientation Name,Age,Birthday,Month,Date, Year,Day of Week,Place, Situation Language Function Ability No Deficits Noted Safety Awareness Understands Safety Issues Memory Description No Deficits Noted Gross Range of Motion Upper Extremity ROM Assessment Within Functional Limits Lower Extremity ROM Assessment Within Functional Limits Strength Upper Extremity Strength Assessment Within Functional Limits Lower Extremity Strength Assessment Within Functional Limits Coordination Assessment Gross Coordination Gross Coordination WNL M6 PT-IP Treatment Start: 10/27/19 11:37 Freq: NEEDED Status: Active Protocol: Document 10/27/19 12:24 (Rec: 10/27/19 12:40 [id number]) Physical Therapy Treatment Education Education Provided Safety M7 PT-IP Assessment and Plan Start: 10/27/19 11:37 Freq: NEEDED Status: Active Protocol: Document 10/27/19 12:24 (Rec: 10/27/19 12:40 [id number]) PT Summary Assessment and Plan Potential Rehabilitation Potential Excellent Status of Condition at Evaluation Stable Summary Impairments Activity Tolerance Progress Towards Goals Safe For Discharge Assessment Summary This is a low complexity evaluation only for this 63 yo female admitted to for acute asthma exacerbation. Pt does get anxious regarding her health very easily who did immediately c/o increased SOB when I told pt that her mobility is unremarkable. This PT indeed treated her at outpatient clinic last year and pt appears to be at baseline at this point and there's no concern as a mobility standpoint. Expect pt to be d/c home independently. D/C from PT Frequency of Treatment Frequency Of Treatment Discharge Recommendations To Nursing Amount of Assist Needed Independent Discharge Recommendations PT Discharge Recommendations Home Transportation Needs at Discharge Private Vehicle
[2019-10-27] MEDS: guaiFENesin ER 600 MG TAB PO (13:26)
[2019-10-27 13:38] LABS: BUN Creatinine Ratio 21.4 (6-22); Blood Urea Nitrogen 22 mg/dL (7-17); Calcium 9.1 mg/dL (8.4-10.2); Carbon Dioxide 24 mmol/L (22-32); Chloride 102 mmol/L (98-107); Estimated Glomerular Filt Rate 53.9 mL/min (>60); Glucose 135 mg/dL (80-110); HEMOLYSIS < 15 (0-50); Potassium 3.6 mmol/L (3.4-5.1); Sodium 133 mmol/L (137-145)
--- NOTE | 2019-10-27 14:17 | PC.NURSE ---
Day shift: Pt was told by care managemnt that she is an observation Pt this afternoon. Pt is now very emotional and tearful. Dr Johnson informed. Call light in reach.
[2019-10-27] MEDS: BUDESONIDE 0.5 MG/2 ML NEB INH (19:05)
[2019-10-27] MEDS: PRAMIPEXOLE 0.25 MG TABLET 0.5 MG PO (20:30)
[2019-10-27] MEDS: methocarbamoL 500 MG TABLET 750 MG PO (20:38)
[2019-10-27] MEDS: Vortioxetine [Trintellix] 10 MG 10 EACH PO (21:47)
[2019-10-28 00:10] VITALS: BP 117/56; PULSE 86; RESP 18; TEMP 36.4; O2SAT 93
[2019-10-28 02:30] VITALS: PULSE 83; O2SAT 95
[2019-10-28] MEDS: ALBUTEROL 2.5 MG/3 ML NEB (ADULT) INH ×2 (02:30→04:30)
[2019-10-28] MEDS: guaiFENesin ER 600 MG TAB PO (02:55)
[2019-10-28] MEDS: ACETAMINOPHEN 325 MG TABLET 650 MG PO (02:57)
[2019-10-28 03:29] VITALS: BP 141/83; PULSE 82; RESP 18; TEMP 36.7; O2SAT 96
[2019-10-28] MEDS: SUMAtriptan 25 MG TABLET 100 MG PO ×2 (04:19→06:48)
[2019-10-28 04:30] VITALS: PULSE 84; RESP 16; O2SAT 95
[2019-10-28] MEDS: OXYCODONE/ACETAMINOPHEN 5/325 TABLET 1 TAB PO ×2 (04:48→09:26)
[2019-10-28 07:30] VITALS: BP 150/91; PULSE 72; RESP 19; TEMP 36.3; O2SAT 96
--- NOTE | 2019-10-28 07:40 | PC.NURSE ---
Patient resting, c/o headache, prescribed PRN medication administered. IV right side, site . IV placed in left AC, patient tolerated well.
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
[2019-10-28] MEDS: diazePAM 5 MG TABLET PO (09:25)
[2019-10-28] MEDS: ENOXAPARIN 40 MG/0.4 ML SYRINGE SUBCUT (09:25)
[2019-10-28] MEDS: GABAPENTIN 600 MG TABLET PO (09:28)
[2019-10-28] MEDS: MONTELUKAST 10 MG TABLET PO (09:29)
[2019-10-28] MEDS: SODIUM CHLORIDE 0.9% FLUSH 10 ML IV (09:30)
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
--- NOTE | 2019-10-28 12:31 | PC.NURSE ---
Day shift: Paperwork signed and all questions answered. Pt did not have the intermittent cough she had yesterday. On RA with SpO2 of 97%. Lungs clear. scripts sent electronic to [employer] for Pt to pick up operator. Pt very unhappy about not qualifying for home O2 use today. Dr Johnson aware. Pt has all personal belongings. Pt was pleasant w/ this advertising copywriter when going over discharge paperwork. Pt getting a ride home from a friend. Friend here and taken to car in by LISSA Jimenez.
== END 2019-10-28 12:36 | disposition home or self-care (01) ==
LOC: ED 08:42 → AC 10:38
PROVIDERS: Admitting Provider Internal Medicine; Emergency Provider Emergency Medicine; PCP Internal Medicine; Referring Provider Emergency Medicine; Visit Provider Internal Medicine
DX: J45.51 Severe persistent asthma with (acute) exacerbation (principal); M79.7 Fibromyalgia; G43.909 Migraine, unspecified, not intractable, without status migrainosus; K21.9 Gastro-esophageal reflux disease without esophagitis; F41.9 Anxiety disorder, unspecified; F32.9 Major depressive disorder, single episode, unspecified; Z11.59 Encounter for screening for other viral diseases
CPT/HCPCS: 36415; 71045; 80048; 82550; 82553; 83880; 84145; 84484; 85025; 85379; 86140; 87635; 93005; 93010; 93306; 94150; 94640; 94760; 94762; 96361; 96372; 96374; 96376; 97161; 99284; G0378; J1650; J2920; J2930; J7613

== ENCOUNTER 2019-10-29 11:28 | Emergency (ER) | payer MEDICARE, MEDICAID, SELFPAY ==
[2019-10-26 12:26] VITALS: BMI 32.8
[2019-10-29 11:35] VITALS: BP 164/87; PULSE 71; RESP 16; O2SAT 99
--- NOTE | 2019-10-29 11:42 | PC.NURSE ---
pt spoke with her ins company because she wasn't feeling better, pt states ins person said she needs oxygen and needs an order.
== END 2019-10-29 13:34 | disposition left against medical advice (07) ==
PROVIDERS: Emergency Provider Emergency Medicine; PCP Internal Medicine
CPT/HCPCS: 99281

== ENCOUNTER 2019-11-10 14:18 | Emergency (ER) | payer MEDICARE, OTHER, MEDICAID, SELFPAY ==
[2019-10-26 12:26] VITALS: BMI 32.8
[2019-11-10 14:28] VITALS: BP 183/96; PULSE 90; RESP 18; TEMP 36.8; O2SAT 99; BMI 31.8
--- NOTE | 2019-11-10 14:38 | ED.URI ---
HPI - URI/Sore Throat General Chief Complaint: Weakness Stated Complaint: 'UPPER RESPIRATORY STUFF' Time Seen by Provider: 11/10/19 14:38 Source: patient Mode of arrival: Ambulatory Limitations: no limitations History of Present Illness HPI Narrative: Patient is a 64-year-old female presenting with upper respiratory symptoms. 3rd visit to the emergency department at this month she was actually admitted with asthma exacerbation on October 25 and discharged on October 27. She was then seen at the walk-in clinic 4 days later on October 31 is were she was prescribed for antibiotics doxycycline for 7 days. She states that those antibiotics were not long enough and that she needed a 14 day course. She says she continues to be short of breath and have cough. She denies any chest pain or tightness. She says that she has had a temperature but does not sound like her temperature has gone up above 99. She denies any sweats or rigors. She denies any worsening productive cough. She says she still just is having difficulty breathing despite her inhalers. She does not have a spacer at home. She does have some shortness of breath with exertion. Related Data Home Medications Medication Instructions Recorded Confirmed gabapentin 600 mg tablet 600 mg PO QID tab 06/19/18 11/04/19 garlic oil 2 dose PO DIRECTED 09/20/18 11/04/19 sennosides [senna] 17.2 mg PO BEDTIME PRN 09/20/18 11/04/19 furosemide 20 mg tablet 20 mg PO DAILY 10/29/18 11/04/19 potassium chloride 20 mEq 20 meq PO DAILY PRN 10/29/18 11/04/19 tablet,extended release epinephrine 0.3 mg IM PRN PRN 12/18/18 11/04/19 budesonide 32 mcg/actuation nasal 1 spray INTRANASAL DAILY ml 12/25/18 11/04/19 spray lidocaine 5 % topical ointment 1 applic TOPICAL TID PRN 12/25/18 11/04/19 levalbuterol tartrate 45 2 inhalation INHALATION BID gram 08/26/19 11/04/19 mcg/actuation aerosol inhaler mirtazapine 7.5 mg tablet 7.5 mg PO BEDTIME PRN 08/26/19 11/04/19 rimegepant 75 mg disintegrating 75 mg PO ONCE PRN 09/12/19 11/04/19 tablet vortioxetine 10 mg tablet 10 mg PO DAILY 09/12/19 11/04/19 metoclopramide HCl 5 mg PO DAILY PRN 09/23/19 11/04/19 diphenhydramine HCl [Benadryl] 75 mg PO DAILY PRN 10/26/19 11/04/19 ibuprofen 800 mg PO DAILY PRN 10/26/19 11/04/19 ketorolac [Sprix] 15.75 mg INTRANASAL Q6-8H PRN 10/26/19 11/04/19 ketotifen fumarate [Zaditor] 1 drp OPHTHALMIC (EYE) BID 10/26/19 11/04/19 montelukast 10 mg PO BEDTIME PRN 10/26/19 11/04/19 oxycodone 5 mg PO Q4H PRN 10/26/19 11/04/19 sumatriptan succinate 6 mg SUBCUT .COMPLEX PRN 10/26/19 11/04/19 Previous Rx's Medication Instructions Recorded ondansetron HCl 8 mg tablet 8 mg PO Q12H PRN #20 tab 01/07/19 promethazine 25 mg tablet 25 mg PO Q8H PRN #12 tab 02/11/19 sumatriptan succinate 100 mg tablet 100 mg PO ONCE PRN #14 tab 02/18/19 rizatriptan 10 mg tablet 10 mg PO .COMPLEX PRN #12 tab 03/11/19 levalbuterol HCl 0.63 mg/3 mL 0.63 mg INHALATION Q8H PRN #90 ml 09/11/19 solution for nebulization methocarbamol 750 mg tablet 750 mg PO TID PRN #90 tab 09/29/19 pramipexole 0.75 mg tablet 0.75 mg PO BEDTIME #90 tab 09/29/19 budesonide-formoterol HFA 80 2 puff INHALATION BID #10.2 gram 09/30/19 mcg-4.5 mcg/actuation aerosol inhaler omeprazole 20 mg capsule,delayed 40 mg PO BID #360 cap 09/30/19 release diazepam 5 mg tablet 5 mg PO BIDP PRN #60 tab 10/08/19 guaifenesin [Mucus Relief ER] 600 mg PO Q12HR PRN #7 tab 10/28/19 ipratropium bromide [Atrovent HFA] 1 puff INHALATION QID #12.9 gram 10/28/19 methylprednisolone 32 mg PO DAILY #5 tab 10/28/19 methylprednisolone See Rx Instructions .ROUTE 11/10/19 .COMPLEX #21 each Allergies Allergy/AdvReac Type Severity Reaction Status Date / Time latex Allergy Severe Rash Verified 11/04/19 17:04 morphine [MORPHINE] Allergy Severe Anaphylaxis Verified 11/04/19 17:04 Penicillins [PENICILLINS] Allergy Severe Anaphylaxis Verified 11/04/19 17:04 Sulfa (Sulfonamide Allergy Severe RASH Verified 11/04/19 17:04 Antibiotics) [SULFA (SULFONAMIDE ANTIBIOTICS)] azithromycin Allergy Intermediate Rash Verified 11/04/19 17:04 [From ZITHROMAX Z-MARILYN] cefuroxime [From Ceftin] Allergy Intermediate Rash Verified 11/04/19 17:04 sulfamethoxazole Allergy Intermediate RASH Verified 11/04/19 17:04 [From SEPTRA] trimethoprim [From SEPTRA] Allergy Intermediate RASH Verified 11/04/19 17:04 ciprofloxacin [From Cipro] Allergy Pt does Verified 11/04/19 17:04 not remember reaction cephalexin [From Keflex] AdvReac Severe Fever, Verified 11/04/19 17:04 Asthma, Tachycardia prednisone AdvReac Severe nausea and Verified 11/04/19 17:04 feels very weak, and axious verapamil AdvReac Intermediate Asthma Verified 11/04/19 17:04 symptoms zonisamide AdvReac Intermediate Asthma Verified 11/04/19 17:04 symptoms steroids AdvReac Swelling Uncoded 11/04/19 17:04 of Lip/Tongue/Throat Review of Systems Review of Systems Narrative: GENERAL: Denies chills, fatigue, malaise, fever, sweats, travel HEENT: Denies sinus pain, ear pain, sore throat, difficulty swallowing, neck pain RESPIRATORY: D see HPI CARDIOVASCULAR: Denies chest pain, palpitations, orthopnea, edema GASTROINTESTINAL: Denies nausea, vomiting, abdominal pain, diarrhea, constipation, melena. : Denies dysuria, frequency, incontinence, hematuria, urinary retention, flank pain. MUSCULOSKELETAL: Denies weakness, joint pain, or bony pain SKIN: No rash, no erythema, no pruritus NEUROLOGIC: Denies weakness, dizziness, headache, numbness, change in speech, confusion PSYCHIATRIC: No concerning psychosocial issues. 12 point review of systems is negative except for those stated above and HPI Patient History Medical History (Updated 11/10/19 @ 16:59 by Allyssa Limon DO) Anemia (Chronic) Anxiety (Chronic) Asthma (Chronic) Chronic back pain (Chronic) Chronic cough (Chronic) Cough (Acute) Depression (Chronic) Femur fracture, left (Resolved) Fibromyalgia (Chronic) Fractures (Chronic) GERD (gastroesophageal reflux disease) (Chronic) Hiatal hernia (Acute) Recurrent sinusitis (Chronic) Surgical History Anesthesia (Resolved) History of eye surgery (Resolved ~1973) History of foot surgery (Resolved) History of hysterectomy (Resolved ~1979) History of shoulder surgery (Resolved ~2011) History of tonsillectomy (Resolved ~1975) Hx of bilateral cataract extraction (Acute) Family History Mother Heart disease Social History marital status: number of children: 1 household members: none lives independently: Yes caregiver/support person: Yes (3 afternoons per week) pets and animals: Yes occupational status: disabled Smoking Status: Never smoker alcohol intake: never substance use type: does not use Smoking Status: Never smoker alcohol intake frequency: 0-2 drinks per day Substance Use Type: does not use and unknown Exam Initial Vital Signs Initial Vital Signs: Vital Signs Temperature 98.3 F 11/10/19 14:28 Pulse Rate 90 11/10/19 14:28 Respiratory Rate 18 11/10/19 14:28 Blood Pressure 183/96 H 11/10/19 14:28 Pulse Oximetry 99 11/10/19 14:28 GENERAL: Well-appearing, well-nourished and in no acute distress. HEENT: Head atraumatic,EOMI, pupils reactive, face symmetric, moist mucous membranes CARDIOVASCULAR: Regular rate and rhythm without murmurs, rubs or gallops. RESPIRATORY: Breath sounds equal bilaterally, no wheezes rales or rhonchi. Speaks in full sentences without difficulty ABDOMEN: Soft, nontender. Normoactive bowel sounds all 4 quadrants. No guarding or rebound. EXTREMITIES: Normal range of motion, no clubbing or edema. Neurovascularly intact NEUROLOGICAL: Alert and oriented x4.Normal gait and speech. SKIN: Warm, dry, no laceration, no petechiae, no rashes or lesions. Course Orders Ordered: ED Orders 11/10/19 14:55 XR chest 2V Stat 11/10/19 15:44 EKG-12 Lead Stat 11/10/19 16:05 Complete Blood Count AUTO DIFF Stat Comprehensive Metabolic Panel Stat D Dimer Stat NT-proBNP (BNP-Adult 18+) Stat Procalcitonin Stat Troponin & CK Cardiac Panel Stat Vital Signs Vital signs: Vital Signs - 8 hr 11/10/19 14:28 11/10/19 17:07 Temperature 98.3 F Pulse Rate 90 70 Respiratory Rate 18 17 Blood Pressure 183/96 H 167/78 H Pulse Oximetry 99 98 MDM - URI/Sore Throat Lab Data Attestation: I reviewed the patient's lab results. Result diagrams: 11/10/19 16:05 11/10/19 16:05 Labs: Lab Results 11/10/19 11/10/19 11/10/19 Range/Units 16:05 16:05 16:05 WBC 8.4 (4.5-11.0) X10^3/uL RBC 3.61 L (4.0-5.2) X10^6/uL Hgb 10.7 L (12.0-16.0) g/dL Hct 31.5 L (36-46) % MCV 87.3 (80-100) fL MCH 29.7 (26-34) PG MCHC 34.1 (30-36) % RDW 14.4 (11.6-14.8) % Plt Count 274 (150-400) X10^3/uL Neut % (Auto) 67.1 (50-75) % Lymph % (Auto) 21.8 L (25-40) % [place] % (Auto) 7.5 (3-14) % Eos % (Auto) 2.6 (2-4) % Baso % (Auto) 1.0 (0-2) % Neut # (Auto) 5600 (2152-3598) /uL Lymph # (Auto) 1800 (1429-4495) /uL [place] # (Auto) 600 (0-900) /uL Eos # (Auto) 200 (0-450) /uL Baso # (Auto) 100 (0-100) /uL D-Dimer 263 H (<230) ng/mL Sodium (137-145) mmol/L Potassium (3.4-5.1) mmol/L Chloride (98-107) mmol/L Carbon Dioxide (22-32) mmol/L BUN (7-17) mg/dL Creatinine (0.52-1.04) mg/dL Estimated GFR (>60) mL/min BUN/Creatinine Ratio (6-22) Glucose (80-110) mg/dL Calcium (8.4-10.2) mg/dL Total Bilirubin (0.2-1.3) mg/dL AST (14-36) IU/L ALT (<35) IU/L Alkaline Phosphatase (38-126) U/L Total Creatine Kinase 262 H (30-135) U/L CK-MB (CK-2) 4.69 H (<2.37) ng/mL CK-MB (CK-2) Rel Index 1.8 (1.5-5.0) % Troponin I < 0.012 (0.01-0.034) ng/mL NT-Pro-B Natriuret Pep 77 (<125) pg/mL Total Protein (6.3-8.2) g/dL Albumin (3.5-5.0) g/dL Globulin (1.7-4.1) g/dL Albumin/Globulin Ratio (1.0-2.8) Procalcitonin (<0.5) ng/mL 11/10/19 11/10/19 Range/Units 16:05 16:05 WBC (4.5-11.0) X10^3/uL RBC (4.0-5.2) X10^6/uL Hgb (12.0-16.0) g/dL Hct (36-46) % MCV (80-100) fL MCH (26-34) PG MCHC (30-36) % RDW (11.6-14.8) % Plt Count (150-400) X10^3/uL Neut % (Auto) (50-75) % Lymph % (Auto) (25-40) % [place] % (Auto) (3-14) % Eos % (Auto) (2-4) % Baso % (Auto) (0-2) % Neut # (Auto) (1279-6548) /uL Lymph # (Auto) (9666-3641) /uL [place] # (Auto) (0-900) /uL Eos # (Auto) (0-450) /uL Baso # (Auto) (0-100) /uL D-Dimer (<230) ng/mL Sodium 136 L (137-145) mmol/L Potassium 4.0 (3.4-5.1) mmol/L Chloride 103 (98-107) mmol/L Carbon Dioxide 31 (22-32) mmol/L BUN 18 H (7-17) mg/dL Creatinine 0.75 (0.52-1.04) mg/dL Estimated GFR > 60.0 (>60) mL/min BUN/Creatinine Ratio 24.0 H (6-22) Glucose 114 H (80-110) mg/dL Calcium 9.0 (8.4-10.2) mg/dL Total Bilirubin 0.3 (0.2-1.3) mg/dL AST 54 H (14-36) IU/L ALT 34 (<35) IU/L Alkaline Phosphatase 81 (38-126) U/L Total Creatine Kinase (30-135) U/L CK-MB (CK-2) (<2.37) ng/mL CK-MB (CK-2) Rel Index (1.5-5.0) % Troponin I (0.01-0.034) ng/mL NT-Pro-B Natriuret Pep (<125) pg/mL Total Protein 6.4 (6.3-8.2) g/dL Albumin 3.6 (3.5-5.0) g/dL Globulin 2.8 (1.7-4.1) g/dL Albumin/Globulin Ratio 1.3 (1.0-2.8) Procalcitonin < 0.05 (<0.5) ng/mL Imaging Data Chest x-ray: Radiologist's Impression: PROCEDURE: XR CHEST 2V INDICATIONS: cough TECHNIQUE: 2 views of the chest were acquired. COMPARISON: [facility], , XR CHEST 1V, 10/26/2019, 9:10. FINDINGS: Surgical changes and devices: ORIF of the left humerus. Lungs and pleura: Mild patchy bilateral perihilar opacity. No pleural effusions or pneumothorax. Mediastinum: Mediastinal contours are normal. Heart size is normal. Bones and chest wall: No suspicious bony abnormalities. Soft tissues appear unremarkable. IMPRESSION: Mild atypical pneumonia. Dictated by: Monica Alvarenga M.D. on 11/10/2019 at 15:14 ECG Data Attestation: I personally reviewed and interpreted this ECG as follows: Prior ECG tracings: available for review Interpretation: Normal sinus rhythm rate 80 p.r. interval [address] changes similar to previous EKG MDM Narrative Medical decision making narrative: The patient has really no wheezing no obvious shortness of breath she is not hypoxic or tachycardic. She is ambulatory in the ED without symptoms. Her D-dimer is actually lower than what it was previously I do not suspect a PE. Her procalcitonin is negative she has no leukocytosis or fever at this time I do not believe a longer course of antibiotics is indicated. X-ray does show mild atypical pneumonia however I believe this is a delayed response, she clinically does not have persistent pneumonia. I have discussed all of this with patient she is adamant that she needs a longer course of antibiotics. I recommend she follow-up with her PCP. Discharge Plan Departure Patient Disposition: Home Clinical Impression: Asthma exacerbation Qualifiers: Asthma severity: mild Asthma persistence: persistent Qualified Code(s): J45.31 - Mild persistent asthma with (acute) exacerbation Discharge Date/Time: 11/10/19 17:12 Instructions: Asthma -- Adult Activity Restrictions/Additional Instructions: *You have been diagnosed with asthma exacerbation *What to do: At this time is not indicated that you have any further antibiotics. You will need a repeat x-ray to be sure that her pneumonia has cleared in about 1 month. *Continue to take medications as directed Methylprednisolone take as directed Use albuterol with spacer *Follow up with your primary care provider in 2-3 days *Return to ER if you should have increasing shortness of breath chest pain fever more than 100.4, or any new, worsening or concerning symptoms Prescriptions: New methylprednisolone 4 mg tablets,dose pack See Rx Instructions .ROUTE .COMPLEX Qty: 21 RF: 0 No Action furosemide [Lasix] 20 mg tablet 20 mg PO DAILY RF: 0 potassium chloride 20 mEq tablet extended release 20 meq PO DAILY PRN (Reason: Take w/lasix) RF: 0 Trintellix 10 mg tablet 10 mg PO DAILY RF: 0 Nurtec ODT 75 mg tablet,disintegrating 75 mg PO ONCE PRN (Reason: Migraine Headache) RF: 0 promethazine 25 mg tablet 25 mg PO Q8H PRN (Reason: nausea and vomiting) Qty: 12 RF: 1 sumatriptan succinate 100 mg tablet 100 mg PO ONCE PRN (Reason: migraine headache) Qty: 14 RF: 3 rizatriptan 10 mg tablet 10 mg PO .COMPLEX PRN (Reason: migraine headache) Qty: 12 RF: 3 levalbuterol HCl 0.63 mg/3 mL solution for nebulization 0.63 mg INHALATION Q8H PRN (Reason: shortness of breath or wheezing) Qty: 90 RF: 11 methocarbamol 750 mg tablet 750 mg PO TID PRN (Reason: Spasms) Qty: 90 RF: 3 pramipexole [Mirapex] 0.75 mg tablet 0.75 mg PO BEDTIME Qty: 90 RF: 3 budesonide-formoterol [Symbicort] 80-4.5 mcg/actuation HFA aerosol inhaler 2 puff INHALATION BID Qty: 10.2 RF: 11 omeprazole 20 mg capsule,delayed release(DR/EC) 40 mg PO BID Qty: 360 RF: 1 diazepam 5 mg tablet 5 mg PO BIDP PRN (Reason: anxiety/sleep) Qty: 60 RF: 0 mirtazapine 7.5 mg tablet 7.5 mg PO BEDTIME PRN (Reason: Anxiety, sleep) RF: 0 levalbuterol tartrate [Xopenex HFA] 45 mcg/actuation HFA aerosol inhaler 2 inhalation INHALATION BID RF: 0 metoclopramide HCl 5 mg Tablet 5 mg PO DAILY PRN (Reason: Migraine onset) RF: 0 sennosides [senna] 8.6 mg Tablet 17.2 mg PO BEDTIME PRN (Reason: Constipation) RF: 0 garlic oil 2 dose PO DIRECTED RF: 0 budesonide 32 mcg/actuation spray,non-aerosol 1 spray intranasal DAILY RF: 0 lidocaine 5 % ointment 1 applic TOPICAL TID PRN (Reason: Pain) RF: 0 epinephrine 0.3 mg/0.3 mL auto-injector 0.3 mg IM PRN PRN (Reason: Allergic Reaction) RF: 0 montelukast 10 mg tablet 10 mg PO BEDTIME PRN (Reason: Allergy Symptoms) RF: 0 sumatriptan succinate 6 mg/0.5 mL pen injector 6 mg SUBCUT .COMPLEX PRN (Reason: Migraine Headache) RF: 0 ibuprofen 800 mg Tablet 800 mg PO DAILY PRN (Reason: pain) RF: 0 ketotifen fumarate [Zaditor] 0.025 % (0.035 %) Drops 1 drp OPHTHALMIC (EYE) BID RF: 0 diphenhydramine HCl [Benadryl] 25 mg Capsule 75 mg PO DAILY PRN (Reason: Allergy Symptoms) RF: 0 oxycodone 5 mg Capsule 5 mg PO Q4H PRN (Reason: Pain (Scale Score 7-10)) RF: 0 ketorolac [Sprix] 15.75 mg/spray [place],Non-Aerosol 15.75 mg INTRANASAL Q6-8H PRN (Reason: Migraine Headache) RF: 0 guaifenesin [Mucus Relief ER] 600 mg Tablet Extended Release 12hr 600 mg PO Q12HR PRN (Reason: Cough) Qty: 7 RF: 0 methylprednisolone 32 mg tablet 32 mg PO DAILY Qty: 5 RF: 0 Atrovent HFA 17 mcg/actuation HFA aerosol inhaler 1 puff INHALATION QID Qty: 12.9 RF: 0 gabapentin [Neurontin] 600 mg tablet 600 mg PO QID RF: 0 ondansetron HCl [Zofran] 8 mg tablet 8 mg PO Q12H PRN (Reason: nausea and vomiting) Qty: 20 RF: 3 Referrals: Donavon Brown MD [Primary Care Provider] -
--- NOTE | 2019-11-10 14:55 | DI.RAD.S_ITS ---
PROCEDURE: XR CHEST 2V INDICATIONS: cough TECHNIQUE: 2 views of the chest were acquired. COMPARISON: [facility], CR, XR CHEST 1V, 10/26/2019, 9:10. FINDINGS: Surgical changes and devices: ORIF of the left humerus. Lungs and pleura: Mild patchy bilateral perihilar opacity. No pleural effusions or pneumothorax. Mediastinum: Mediastinal contours are normal. Heart size is normal. Bones and chest wall: No suspicious bony abnormalities. Soft tissues appear unremarkable. IMPRESSION: Mild atypical pneumonia. Dictated by: Monica Alvarenga M.D. on 11/10/2019 at 15:14 Approved by: Monica Alvarenga M.D. on 11/10/2019 at 15:15
[2019-11-10 16:12] LABS: Add Manual Diff / Slide Review NO; Basophils Absolute Auto 100 /uL (0-100); Eosinophils Absolute Auto 200 /uL (0-450); Eosinophils Percent Auto 2.6 % (2-4); Hematocrit 31.5 % (36-46); Hemoglobin 10.7 g/dL (12.0-16.0); Lymphocytes Absolute Auto 1800 /uL (1100-4500); Lymphocytes Percent Auto 21.8 % (25-40); Mean Corpuscular HGB Conc 34.1 % (30-36); Mean Corpuscular Hemoglobin 29.7 PG (26-34); Mean Corpuscular Volume 87.3 fL (80-100); Monocytes Absolute Auto 600 /uL (0-900); Monocytes Percent Auto 7.5 % (3-14); Neutrophils Absolute Auto 5600 /uL (1500-7000); Neutrophils Percent Auto 67.1 % (50-75); Platelet Count 274 X10^3/uL (150-400); Red Blood Cell Count 3.61 X10^6/uL (4.0-5.2); Red Cell Distribution Width 14.4 % (11.6-14.8); White Blood Cell Count 8.4 X10^3/uL (4.5-11.0)
[2019-11-10 16:24] LABS: D Dimer 263 ng/mL (<230)
[2019-11-10 16:31] LABS: Alanine Aminotransferase 34 IU/L (<35); Albumin 3.6 g/dL (3.5-5.0); Albumin Globulin Ratio 1.3 (1.0-2.8); Alkaline Phosphatase 81 U/L (38-126); Aspartate Aminotransferase 54 IU/L (14-36); Bilirubin Total 0.3 mg/dL (0.2-1.3); Blood Urea Nitrogen 18 mg/dL (7-17); Carbon Dioxide 31 mmol/L (22-32); Chloride 103 mmol/L (98-107); Creatine Kinase 262 U/L (30-135); Estimated Glomerular Filt Rate > 60.0 mL/min (>60); Globulin 2.8 g/dL (1.7-4.1); Glucose 114 mg/dL (80-110); HEMOLYSIS < 15 (0-50); Sodium 136 mmol/L (137-145); Total Protein 6.4 g/dL (6.3-8.2)
[2019-11-10 16:43] LABS: NT-proBNP (BNP-Adult 18+) 77 pg/mL (<125); Troponin I < 0.012 ng/mL (0.01-0.034)
[2019-11-10 16:45] LABS: Procalcitonin < 0.05 ng/mL (<0.5)
[2019-11-10 16:47] LABS: CKMB % Relative Index 1.8 % (1.5-5.0); Creatine Kinase MB 4.69 ng/mL (<2.37)
[2019-11-10 17:07] VITALS: BP 167/78; PULSE 70; RESP 17; O2SAT 98
--- NOTE | 2019-11-10 17:07 | PC.NURSE ---
Pt prescribed methylprednisolone. Noted adverce reaction in file. Pt states she has taken and tolerates well.
== END 2019-11-10 17:12 | disposition home or self-care (01) ==
PROVIDERS: Emergency Provider Emergency Medicine; PCP Internal Medicine
DX: J45.31 Mild persistent asthma with (acute) exacerbation (principal)
CPT/HCPCS: 36415; 71046; 80053; 82550; 82553; 83880; 84145; 84484; 85025; 85379; 93005; 99284

== ENCOUNTER 2019-11-16 12:33 | Emergency (ER) | payer MEDICARE, MEDICAID, SELFPAY ==
[2019-10-26 12:26] VITALS: BMI 32.8
[2019-11-16 12:45] VITALS: BP 158/87; PULSE 87; RESP 24; TEMP 36.7; O2SAT 98; BMI 31.8
--- NOTE | 2019-11-16 12:50 | PC.NURSE ---
pt states she was told she had PNA but cant remember when is having increased SOB since being seen over telehealth with Dr Brown a few days ago, has been COVID tested 4 times with negative result. Has completed a course of Doxycycline. Lungs are clear throughout bilaterally. speaking in full sentences, 99% RA. ambulatory.
--- NOTE | 2019-11-16 12:52 | DI.RAD.S_ITS ---
PROCEDURE: XR CHEST 2V INDICATIONS: SOB TECHNIQUE: 2 views of the chest were acquired. COMPARISON: [facility], EC, EC ECHO DOPPLER COMPLETE, 10/27/2019, 11:28. [facility], CT, CT ANGIO CHEST PE PROTOCOL, 08/24/2019, 16:26. [facility], CR, XR CHEST 2V, 11/10/2019, 14:47. FINDINGS: Surgical changes and devices: None. Lungs and pleura: Lungs are clear. No pleural effusions or pneumothorax. Suggestion of pulmonary vascular congestion. Mediastinum: Mediastinal contours are normal. Heart size is normal. Small hiatal hernia. Bones and chest wall: No suspicious bony abnormalities. Postsurgical changes of the left humerus. Soft tissues appear unremarkable. IMPRESSION: Suggestion of pulmonary vascular congestion. Small hiatal hernia. Dictated by: Kieran Bryant M.D. on 11/16/2019 at 12:32 Approved by: Kieran Bryant M.D. on 11/16/2019 at 12:39
[2019-11-16 14:16] VITALS: BP 158/87; PULSE 76; RESP 22; O2SAT 97
--- NOTE | 2019-11-16 14:44 | ED_ITS ---
HPI - SOB/Dyspnea <Romana GuzmanILAN - Last Filed: 11/16/19 20:24> General Chief Complaint: Shortness of Breath/Dyspnea Stated Complaint: resp problems Time Seen by Provider: 11/16/19 12:57 Source: patient Mode of arrival: Ambulatory Limitations: no limitations History of Present Illness HPI Narrative: 64yo female with a history of asthma, recent pneumonia on 10/25, presents emergency department for continuing shortness breath. Patient the hospital on 10/28/2019 on antibiotics, she was seen at the respiratory clinic on 11/01/2019 and doxycycline was extended. Patient was then again evaluated on 11/10/2019, workup was negative for concerns for PE given improving D-dimer, pneumonia was resolving, no signs of worsening infection, but patient complained of continued shortness of breath. She states at some point she was put on methylprednisone which she has 2 days left. She reports continued shortness of breath. She has not used her albuterol inhaler lately. Patient is concerned that the shortness of breath has not been resolving. She denies any fevers, cough, rhinorrhea, dizziness, chest pain, swelling in her legs, nausea, vomiting, diarrhea, or any other concerns. She states she takes Symbicort for asthma as well as Combivent and lev-albuterol. Patient denies any wheezing. She states she has not followed up with her primary care provider. Related Data Home Medications Medication Instructions Recorded Confirmed gabapentin 600 mg tablet 600 mg PO QID tab 06/19/18 11/04/19 garlic oil 2 dose PO DIRECTED 09/20/18 11/04/19 sennosides [senna] 17.2 mg PO BEDTIME PRN 09/20/18 11/04/19 furosemide 20 mg tablet 20 mg PO DAILY 10/29/18 11/04/19 potassium chloride 20 mEq 20 meq PO DAILY PRN 10/29/18 11/04/19 tablet,extended release epinephrine 0.3 mg IM PRN PRN 12/18/18 11/04/19 budesonide 32 mcg/actuation nasal 1 spray INTRANASAL DAILY ml 12/25/18 11/04/19 spray lidocaine 5 % topical ointment 1 applic TOPICAL TID PRN 12/25/18 11/04/19 levalbuterol tartrate 45 2 inhalation INHALATION BID gram 08/26/19 11/04/19 mcg/actuation aerosol inhaler mirtazapine 7.5 mg tablet 7.5 mg PO BEDTIME PRN 08/26/19 11/04/19 rimegepant 75 mg disintegrating 75 mg PO ONCE PRN 09/12/19 11/04/19 tablet vortioxetine 10 mg tablet 10 mg PO DAILY 09/12/19 11/04/19 metoclopramide HCl 5 mg PO DAILY PRN 09/23/19 11/04/19 diphenhydramine HCl [Benadryl] 75 mg PO DAILY PRN 10/26/19 11/04/19 ibuprofen 800 mg PO DAILY PRN 10/26/19 11/04/19 ketorolac [Sprix] 15.75 mg INTRANASAL Q6-8H PRN 10/26/19 11/04/19 ketotifen fumarate [Zaditor] 1 drp OPHTHALMIC (EYE) BID 10/26/19 11/04/19 montelukast 10 mg PO BEDTIME PRN 10/26/19 11/04/19 oxycodone 5 mg PO Q4H PRN 10/26/19 11/04/19 sumatriptan succinate 6 mg SUBCUT .COMPLEX PRN 10/26/19 11/04/19 Previous Rx's Medication Instructions Recorded ondansetron HCl 8 mg tablet 8 mg PO Q12H PRN #20 tab 01/07/19 promethazine 25 mg tablet 25 mg PO Q8H PRN #12 tab 02/11/19 sumatriptan succinate 100 mg tablet 100 mg PO ONCE PRN #14 tab 02/18/19 rizatriptan 10 mg tablet 10 mg PO .COMPLEX PRN #12 tab 03/11/19 levalbuterol HCl 0.63 mg/3 mL 0.63 mg INHALATION Q8H PRN #90 ml 09/11/19 solution for nebulization methocarbamol 750 mg tablet 750 mg PO TID PRN #90 tab 09/29/19 pramipexole 0.75 mg tablet 0.75 mg PO BEDTIME #90 tab 09/29/19 budesonide-formoterol HFA 80 2 puff INHALATION BID #10.2 gram 09/30/19 mcg-4.5 mcg/actuation aerosol inhaler omeprazole 20 mg capsule,delayed 40 mg PO BID #360 cap 09/30/19 release diazepam 5 mg tablet 5 mg PO BIDP PRN #60 tab 10/08/19 guaifenesin [Mucus Relief ER] 600 mg PO Q12HR PRN #7 tab 10/28/19 ipratropium bromide [Atrovent HFA] 1 puff INHALATION QID #12.9 gram 10/28/19 methylprednisolone 32 mg PO DAILY #5 tab 10/28/19 methylprednisolone See Rx Instructions .ROUTE 11/10/19 .COMPLEX #21 each budesonide-formoterol [Symbicort] 2 puff INHALATION BID 30 Days 11/16/19 #10.2 gram Allergies Allergy/AdvReac Type Severity Reaction Status Date / Time latex Allergy Severe Rash Verified 11/04/19 17:04 morphine [MORPHINE] Allergy Severe Anaphylaxis Verified 11/04/19 17:04 Penicillins [PENICILLINS] Allergy Severe Anaphylaxis Verified 11/04/19 17:04 Sulfa (Sulfonamide Allergy Severe RASH Verified 11/04/19 17:04 Antibiotics) [SULFA (SULFONAMIDE ANTIBIOTICS)] azithromycin Allergy Intermediate Rash Verified 11/04/19 17:04 [From ZITHROMAX Z-MARILYN] cefuroxime [From Ceftin] Allergy Intermediate Rash Verified 11/04/19 17:04 sulfamethoxazole Allergy Intermediate RASH Verified 11/04/19 17:04 [From SEPTRA] trimethoprim [From SEPTRA] Allergy Intermediate RASH Verified 11/04/19 17:04 ciprofloxacin [From Cipro] Allergy Pt does Verified 11/04/19 17:04 not remember reaction cephalexin [From Keflex] AdvReac Severe Fever, Verified 11/04/19 17:04 Asthma, Tachycardia prednisone AdvReac Severe nausea and Verified 11/04/19 17:04 feels very weak, and axious verapamil AdvReac Intermediate Asthma Verified 11/04/19 17:04 symptoms zonisamide AdvReac Intermediate Asthma Verified 11/04/19 17:04 symptoms steroids AdvReac Swelling Uncoded 11/04/19 17:04 of Lip/Tongue/Throat Review of Systems <ILAN Dent - Last Filed: 11/16/19 20:24> Review of Systems Narrative: REVIEW OF SYSTEMS: GENERAL: Denies fevers. HENT: No head trauma or hearing loss. CARDIOVASCULAR: No chest pain. RESPIRATORY: Reports shortness of breath, no cough, see HPI. GASTROINTESTINAL: No nausea, vomiting, diarrhea, or constipation. MUSCULOSKELETAL: No weakness or injury. INTEGUMENTARY: No rash. NEURO: No memory loss, or confusion. Patient History <ILAN Dent - Last Filed: 11/16/19 20:24> Medical History Anemia (Chronic) Anxiety (Chronic) Asthma (Chronic) Chronic back pain (Chronic) Chronic cough (Chronic) Cough (Acute) Depression (Chronic) Femur fracture, left (Resolved) Fibromyalgia (Chronic) Fractures (Chronic) GERD (gastroesophageal reflux disease) (Chronic) Hiatal hernia (Acute) Recurrent sinusitis (Chronic) Surgical History Anesthesia (Resolved) History of eye surgery (Resolved ~1973) History of foot surgery (Resolved) History of hysterectomy (Resolved ~1979) History of shoulder surgery (Resolved ~2011) History of tonsillectomy (Resolved ~1975) Hx of bilateral cataract extraction (Acute) Family History Mother Heart disease Social History marital status: number of children: 1 household members: none lives independently: Yes caregiver/support person: Yes (3 afternoons per week) pets and animals: Yes occupational status: disabled Smoking Status: Never smoker alcohol intake: never substance use type: does not use Smoking Status: Never smoker alcohol intake frequency: 0-2 drinks per day Substance Use Type: does not use and unknown Exam <ILAN Dent - Last Filed: 11/16/19 20:24> Initial Vital Signs Initial Vital Signs: Vital Signs Temperature 98.1 F 11/16/19 12:45 Pulse Rate 87 11/16/19 12:45 Respiratory Rate 24 11/16/19 12:45 Blood Pressure 158/87 H 11/16/19 12:45 Pulse Oximetry 98 11/16/19 12:45 PHYSICAL EXAMINATION: GENERAL: Well groomed, alert, and cooperative. Answers questions promptly and appropriately. Vital signs noted. HENT: Normocephalic, atraumatic. Ear canals patent. EYES: Conjunctiva pink, sclera white, no periorbital swelling. No discharge. CHEST: Normal to inspection and without deformities. CARDIOVASCULAR: S1 and S2 sounds normal. Regular rate and rhythm, no murmurs, clicks, or bruits. RESPIRATORY: Normal respiratory rate, trachea midline, airway patent. No stridor, nasal flaring or accessory muscle use. Able to speak in full sentences. Lungs are clear in all aqu[place] without wheeze, rhonchi, or crackles. Able to ambulate without distress. MUSCULOSKELETAL: Normal gait and coordination. Equal tone and mass bilaterally. EXTREMITIES: Moves all extremities. SKIN: Warm, dry, soft, appropriate color for ethnicity. No lesions, rashes, or wounds to visualized areas. NEURO: Alert and Oriented X 3. Good coordination. No ataxia or cognitive issues. PSYCH: Appropriate affect and mood. <Allyssa Limon DO - Last Filed: 11/17/19 08:27> Initial Vital Signs Initial Vital Signs: Vital Signs Temperature 98.1 F 11/16/19 12:45 Pulse Rate 87 11/16/19 12:45 Respiratory Rate 24 11/16/19 12:45 Blood Pressure 158/87 H 11/16/19 12:45 Pulse Oximetry 98 11/16/19 12:45 Course <ILAN Dent - Last Filed: 11/16/19 20:24> Course Course Narrative: Discussed extensively patient prior workups, discussed possible increase in inhaler, patient agreed to try this. Discussed importance of follow-up. Orders Ordered: ED Orders 11/16/19 12:52 Chest [XR chest 2V] Stat Consultations Consultation #1: Discuss history, test, test results, plan of care with Dr. Kang gonsalez. Vital Signs Vital signs: Vital Signs - 8 hr 11/16/19 12:45 11/16/19 14:16 Temperature 98.1 F Pulse Rate 87 76 Respiratory Rate 24 22 Blood Pressure 158/87 H 158/87 H Pulse Oximetry 98 97 <Allyssa Limon DO - Last Filed: 11/17/19 08:27> Orders Ordered: ED Orders 11/16/19 12:52 Chest [XR chest 2V] Stat Vital Signs Vital signs: Vital Signs - 8 hr 11/16/19 12:45 11/16/19 14:16 Temperature 98.1 F Pulse Rate 87 76 Respiratory Rate 24 22 Blood Pressure 158/87 H 158/87 H Pulse Oximetry 98 97 MDM - SOB/Dyspnea <LYNDA DentP - Last Filed: 11/16/19 20:24> Medical Records Attestation: I reviewed the patient's medical records. Lab Data Attestation: I reviewed the patient's lab results. Imaging Data Chest x-ray: Radiologist's Impression: [address] [address] XRay Report Signed Patient: Sheryl Lennon#: [id number] : 5Acct:[id number] Age/Sex: 64 / FDate of Service: 11/16/19 Loc: ED Accession Number: [id number] Procedure: XR chest 2V Ordering Provider: Allyssa Limon D.O. PROCEDURE: XR CHEST 2V INDICATIONS: SOB TECHNIQUE: 2 views of the chest were acquired. COMPARISON: [facility], EC, EC ECHO DOPPLER COMPLETE, 10/27/2019, 11:28. [facility], CT, CT ANGIO CHEST PE PROTOCOL, 08/24/2019, 16:26. [facility], CR, XR CHEST 2V, 11/10/2019, 14:47. FINDINGS: Surgical changes and devices: None. Lungs and pleura: Lungs are clear. No pleural effusions or pneumothorax. Suggestion of pulmonary vascular congestion. Mediastinum: Mediastinal contours are normal. Heart size is normal. Small hiatal hernia. Bones and chest wall: No suspicious bony abnormalities. Postsurgical changes of the left humerus. Soft tissues appear unremarkable. IMPRESSION: Suggestion of pulmonary vascular congestion. Small hiatal hernia. Dictated by: Kieran Bryant M.D. on 11/16/2019 at 12:32 Approved by: Kieran Bryant M.D. on 11/16/2019 at 12:39 MDM Narrative Medical decision making narrative: 64yo female with a history of asthma, presents emergency department for continued shortness of breath post diagnosis of pneumonia a few weeks ago. Extensive evaluations was completed approximately 4 days ago. Patient has been on multiple course of antibiotics, chest x-ray does show some pulmonary congestion which is most likely due to resolving pneumonia that has been improving as noted on the past 3 x-rays. No concerns for acute infection given lack of fever, tachycardia in clear lung sounds. We discussed that shortness of breath can last sometime after resolving pneumonia, patient's maintenance inhaler which is Symbicort with increased in dosage to help with symptoms. He has 2 days left of methylprednisone, I did not extend this given extensive steroid use in the past few weeks. Less likely PE given recent workup a few days ago for PE, not tachycardic, not hypoxic. Patient has fairly recent COVID negative swab. Patient and recent extensive cardiac workup including an echocardiogram decreases concerns for cardiac involvement, additionally, patient denies any cardiac symptoms such as chest pain. Return precautions given for new or worsening symptoms. Patient agrees to plan of care verbalized understanding. Discharge Plan Departure Patient Disposition: Home Clinical Impression: Asthma exacerbation Qualifiers: Asthma severity: moderate Asthma persistence: persistent Qualified Code(s): J45.41 - Moderate persistent asthma with (acute) exacerbation Discharge Date/Time: 11/16/19 14:17 Instructions: DI for Asthma -- Adult Activity Restrictions/Additional Instructions: Thank you for entrusting me with your care today. As discussed, your chest x-ray does not show pneumonia today, it appears that her past pneumonia is resolving, the shortness of breath related to her past pneumonia can take a few weeks to resolve. Your extensive cardiac and pulmonary workup the past few weeks has been reassuring. There is no signs of infection today. I have prescribed you a higher dose of Symbicort, use this inhaler for the next week until you follow-up with your primary care provider. It is very important that you make an appointment in the next week to follow up with your primary care provider to further discuss management of your asthma. Return emergency department for any new or worsening symptoms such as fevers, chest pain, syncope, or any other concerns. Prescriptions: New budesonide-formoterol [Symbicort] 160-4.5 mcg/actuation HFA aerosol inhaler 2 puff INHALATION BID 30 Days Qty: 10.2 RF: 0 No Action furosemide [Lasix] 20 mg tablet 20 mg PO DAILY RF: 0 potassium chloride 20 mEq tablet extended release 20 meq PO DAILY PRN (Reason: Take w/lasix) RF: 0 Trintellix 10 mg tablet 10 mg PO DAILY RF: 0 Nurtec ODT 75 mg tablet,disintegrating 75 mg PO ONCE PRN (Reason: Migraine Headache) RF: 0 promethazine 25 mg tablet 25 mg PO Q8H PRN (Reason: nausea and vomiting) Qty: 12 RF: 1 sumatriptan succinate 100 mg tablet 100 mg PO ONCE PRN (Reason: migraine headache) Qty: 14 RF: 3 rizatriptan 10 mg tablet 10 mg PO .COMPLEX PRN (Reason: migraine headache) Qty: 12 RF: 3 levalbuterol HCl 0.63 mg/3 mL solution for nebulization 0.63 mg INHALATION Q8H PRN (Reason: shortness of breath or wheezing) Qty: 90 RF: 11 methocarbamol 750 mg tablet 750 mg PO TID PRN (Reason: Spasms) Qty: 90 RF: 3 pramipexole [Mirapex] 0.75 mg tablet 0.75 mg PO BEDTIME Qty: 90 RF: 3 budesonide-formoterol [Symbicort] 80-4.5 mcg/actuation HFA aerosol inhaler 2 puff INHALATION BID Qty: 10.2 RF: 11 omeprazole 20 mg capsule,delayed release(DR/EC) 40 mg PO BID Qty: 360 RF: 1 diazepam 5 mg tablet 5 mg PO BIDP PRN (Reason: anxiety/sleep) Qty: 60 RF: 0 mirtazapine 7.5 mg tablet 7.5 mg PO BEDTIME PRN (Reason: Anxiety, sleep) RF: 0 levalbuterol tartrate [Xopenex HFA] 45 mcg/actuation HFA aerosol inhaler 2 inhalation INHALATION BID RF: 0 metoclopramide HCl 5 mg Tablet 5 mg PO DAILY PRN (Reason: Migraine onset) RF: 0 sennosides [senna] 8.6 mg Tablet 17.2 mg PO BEDTIME PRN (Reason: Constipation) RF: 0 garlic oil 2 dose PO DIRECTED RF: 0 budesonide 32 mcg/actuation spray,non-aerosol 1 spray intranasal DAILY RF: 0 lidocaine 5 % ointment 1 applic TOPICAL TID PRN (Reason: Pain) RF: 0 epinephrine 0.3 mg/0.3 mL auto-injector 0.3 mg IM PRN PRN (Reason: Allergic Reaction) RF: 0 montelukast 10 mg tablet 10 mg PO BEDTIME PRN (Reason: Allergy Symptoms) RF: 0 sumatriptan succinate 6 mg/0.5 mL pen injector 6 mg SUBCUT .COMPLEX PRN (Reason: Migraine Headache) RF: 0 ibuprofen 800 mg Tablet 800 mg PO DAILY PRN (Reason: pain) RF: 0 ketotifen fumarate [Zaditor] 0.025 % (0.035 %) Drops 1 drp OPHTHALMIC (EYE) BID RF: 0 diphenhydramine HCl [Benadryl] 25 mg Capsule 75 mg PO DAILY PRN (Reason: Allergy Symptoms) RF: 0 oxycodone 5 mg Capsule 5 mg PO Q4H PRN (Reason: Pain (Scale Score 7-10)) RF: 0 ketorolac [Sprix] 15.75 mg/spray [place],Non-Aerosol 15.75 mg INTRANASAL Q6-8H PRN (Reason: Migraine Headache) RF: 0 guaifenesin [Mucus Relief ER] 600 mg Tablet Extended Release 12hr 600 mg PO Q12HR PRN (Reason: Cough) Qty: 7 RF: 0 methylprednisolone 32 mg tablet 32 mg PO DAILY Qty: 5 RF: 0 Atrovent HFA 17 mcg/actuation HFA aerosol inhaler 1 puff INHALATION QID Qty: 12.9 RF: 0 methylprednisolone 4 mg tablets,dose pack See Rx Instructions .ROUTE .COMPLEX Qty: 21 RF: 0 gabapentin [Neurontin] 600 mg tablet 600 mg PO QID RF: 0 ondansetron HCl [Zofran] 8 mg tablet 8 mg PO Q12H PRN (Reason: nausea and vomiting) Qty: 20 RF: 3 Referrals: Donavon Brown MD [Primary Care Provider] - <Allyssa Limon DO - Last Filed: 11/17/19 08:27> Cosign ED Attending Juarez Attestation: I was immediately available in the department for consultation. Documentation has been reviewed. I agree with assessment and plan.
== END 2019-11-16 14:17 | disposition home or self-care (01) ==
PROVIDERS: Emergency Provider Nurse Practitioner; PCP Internal Medicine
DX: J45.41 Moderate persistent asthma with (acute) exacerbation (principal)
CPT/HCPCS: 71046; 99281; 99283

== ENCOUNTER → 2019-11-21 11:41 | Outpatient (CLI) | payer MEDICARE, MEDICAID, SELFPAY ==
[2019-10-26 12:26] VITALS: BMI 32.8
--- NOTE | 2019-11-21 | DI.CT.S_ITS ---
PROCEDURE: CT CHEST HIGH RESOLUTION INDICATIONS: interstitial pulmonary disease unspecified TECHNIQUE: Noncontrast 1.0 and 5.0 mm thick contiguous axial sections from the pulmonary apex to the posterior costophrenic angles, with 7 mm thick coronal and sagittal MIP reformats. 1 mm thick dynamic expiratory images acquired through the upper, mid, and lower lungs. 1.0 mm thick axial sections acquired from the mon[place] to the posterior costophrenic angles in the prone end-inspiration position. For radiation dose reduction, the following was used: automated exposure control, adjustment of mA and/or kV according to patient size. COMPARISON: [facility], CT, CT ANGIO CHEST PE PROTOCOL, 08/24/2019, 16:26. [facility], CR, XR CHEST 1V, 10/26/2019, 9:10. [facility], CR, XR CHEST 2V, 11/16/2019, 13:03. FINDINGS: Image quality: Excellent. Lungs: No sign of pulmonary fibrosis or active alveolitis. There is minimal alveolar prominence at the posterior left lower lobe, and a small degree of linear scarring at the right lung base. Currently no pulmonary nodules are found. Pleura: No pleural effusions or pneumothorax. Mediastinum: Heart size is normal. No pericardial effusion. Thoracic aorta and central pulmonary arteries are normal in size. Esophagus is normal in caliber but there is a hiatal hernia behind the heart that is moderate in size. This was previously present. Bones and chest wall: No suspicious bony lesions. No vertebral body compression fractures. Abdomen: Visualized upper abdominal solid organs and bowel loops appear normal. IMPRESSION: By this examination there is no suspicion for active airspace disease. A small degree of linear scarring can be seen at the right lung base, and a slight degree of alveolar prominence is seen at the posterolateral left lower lobe. The interstitial prominence pattern noted 08/24/19 has almost completely resolved. No pulmonary fibrosis or active alveolitis is found. Through the lung parenchyma no pulmonary nodule is seen that would suggest presence of early manifestation of lung carcinoma. No effusion is found, no adenopathy is present. Moderate-sized hiatal hernia is noted behind the heart, previously present. Dictated by: Gonzalez Dsouza M.D. on 11/21/2019 at 14:06 Approved by: Gonzalez Dsouza M.D. on 11/21/2019 at 14:28
== END ==
PROVIDERS: PCP Internal Medicine; Referring Provider Internal Medicine; Visit Provider Internal Medicine
DX: J84.9 Interstitial pulmonary disease, unspecified (principal); K44.9 Diaphragmatic hernia without obstruction or gangrene
CPT/HCPCS: 71250

== ENCOUNTER → 2019-11-21 18:50 | Outpatient (ROUT) | payer MEDICARE, OTHER, MEDICAID, SELFPAY ==
[2019-10-26 12:26] VITALS: BMI 32.8
[2019-11-21 19:17] LABS: Add Manual Diff / Slide Review NO; Basophils Absolute Auto 0 /uL (0-100); Basophils Percent Auto 0.5 % (0-2); Eosinophils Absolute Auto 0 /uL (0-450); Eosinophils Percent Auto 0.2 % (2-4); Hematocrit 34.3 % (36-46); Hemoglobin 11.7 g/dL (12.0-16.0); Lymphocytes Absolute Auto 1300 /uL (1100-4500); Lymphocytes Percent Auto 14.1 % (25-40); Mean Corpuscular HGB Conc 34.2 % (30-36); Mean Corpuscular Hemoglobin 29.6 PG (26-34); Mean Corpuscular Volume 86.7 fL (80-100); Monocytes Absolute Auto 400 /uL (0-900); Monocytes Percent Auto 4.1 % (3-14); Neutrophils Absolute Auto 7300 /uL (1500-7000); Neutrophils Percent Auto 81.1 % (50-75); Platelet Count 378 X10^3/uL (150-400); Red Blood Cell Count 3.96 X10^6/uL (4.0-5.2); Red Cell Distribution Width 14.6 % (11.6-14.8)
[2019-11-21 19:34] LABS: Alanine Aminotransferase 40 IU/L (<35); Albumin 4.1 g/dL (3.5-5.0); Albumin Globulin Ratio 1.4 (1.0-2.8); Alkaline Phosphatase 107 U/L (38-126); Aspartate Aminotransferase 43 IU/L (14-36); BUN Creatinine Ratio 22.6 (6-22); Bilirubin Total 0.3 mg/dL (0.2-1.3); Blood Urea Nitrogen 19 mg/dL (7-17); Carbon Dioxide 27 mmol/L (22-32); Chloride 101 mmol/L (98-107); Cholesterol 250 mg/dL (140-199); Estimated Glomerular Filt Rate > 60.0 mL/min (>60); Globulin 2.9 g/dL (1.7-4.1); Glucose 103 mg/dL (80-110); HEMOLYSIS < 15 (0-50); Potassium 5.1 mmol/L (3.4-5.1); Sodium 134 mmol/L (137-145); Triglycerides 80 mg/dL (35-150)
[2019-11-21 20:02] LABS: HDL Cholesterol 124 mg/dL (40-60); LDL Cholesterol Calculated 110 mg/dL (<100)
[2019-11-21 20:03] LABS: TSH w/ Reflex to FT4 1.07 uIU/mL (0.47-4.68)
== END ==
PROVIDERS: PCP Internal Medicine; Visit Provider Internal Medicine
DX: R60.9 Edema, unspecified (principal); E78.2 Mixed hyperlipidemia
CPT/HCPCS: 80053; 80061; 84443; 85025

== ENCOUNTER → 2019-11-25 13:25 | Outpatient (CLI) | payer MEDICARE, OTHER, MEDICAID, SELFPAY ==
[2019-10-26 12:26] VITALS: BMI 32.8
[2019-11-26 06:41] LABS: COVID19 Sendout Not Detected (Not Detect)
== END ==
PROVIDERS: PCP Internal Medicine; Visit Provider Physician Assistant
DX: Z01.812 Encounter for preprocedural laboratory examination (principal)
CPT/HCPCS: 87635

== ENCOUNTER → 2019-11-28 11:43 | Outpatient (CLI) | payer MEDICARE, OTHER, MEDICAID, SELFPAY ==
[2019-10-26 12:26] VITALS: BMI 32.8
--- NOTE | 2019-12-03 08:40 | PM.PFT.1 ---
Pulmonary Function Test Referral & Results Date Patient Seen: 11/28/19 Requesting provider: Jorge Healy Results: The spirometry demonstrates an FVC of 2.27 L which is 74% of predicted. The FEV1 was measured at 1.62 L which is 69% of predicted. The FEV1/FVC ratio was 72 which is 92% of predicted. No bronchodilator was administered no lung volumes were performed The diffusing capacity was measured at 22.35 which is 97% of predicted. Interpretation: This study does show decline in FEV1 and shape a flow volume loop does suggest possible obstructive lung disease. However without lung volumes difficult to know whether the decline in FEV1 is balance by decline in SVC or lung volumes. FEV1/FVC ratio remains normal. Clinical correlation suggested
== END ==
PROVIDERS: PCP Internal Medicine; Referring Provider Internal Medicine; Visit Provider Internal Medicine
DX: J84.9 Interstitial pulmonary disease, unspecified (principal); R06.02 Shortness of breath
CPT/HCPCS: 94010; 94729

== ENCOUNTER → 2019-12-24 10:17 | Outpatient (CLI) | payer MEDICARE, OTHER, MEDICAID, SELFPAY ==
[2019-10-26 12:26] VITALS: BMI 32.8
== END ==
PROVIDERS: PCP Internal Medicine
DX: J40 Bronchitis, not specified as acute or chronic (principal)
CPT/HCPCS: 87116; 87206

== ENCOUNTER → 2019-12-24 13:03 | Outpatient (CLI) | payer MEDICARE, MEDICAID, SELFPAY ==
[2019-10-26 12:26] VITALS: BMI 32.8
--- NOTE | 2019-12-24 13:05 | DI.RAD.S_ITS ---
PROCEDURE: XR CHEST 2V INDICATIONS: cough, sob, r/o pneumonia TECHNIQUE: 2 views of the chest were acquired. COMPARISON: [facility], CR, XR CHEST 2V, 11/16/2019, 13:03. [facility], CR, XR CHEST 2V, 11/10/2019, 14:47. FINDINGS: Surgical changes and devices: None. Lungs and pleura: Lungs are clear. No pleural effusions or pneumothorax. Mediastinum: Mediastinal contours are normal except for a possible hiatal hernia causing overlapping radiodensity behind the heart. Heart size is normal. Bones and chest wall: No suspicious bony abnormalities. Soft tissues appear unremarkable. IMPRESSION: No pneumonia found. Possible hiatal hernia behind the heart. Dictated by: Gonzalez Dsouza M.D. on 12/24/2019 at 15:28 Approved by: Gonzalez Dsouza M.D. on 12/24/2019 at 15:28
== END ==
PROVIDERS: PCP Internal Medicine; Referring Provider Physician Assistant; Visit Provider Physician Assistant
DX: R05 Cough (principal); R06.02 Shortness of breath; J40 Bronchitis, not specified as acute or chronic
CPT/HCPCS: 71046; 87116; 87206

== ENCOUNTER 2020-01-15 10:11 | Emergency (ER) | payer MEDICARE, MEDICAID, SELFPAY ==
[2019-10-26 12:26] VITALS: BMI 32.8
[2020-01-15] VITALS (11 sets, daily range): BP systolic 117–128; BP diastolic 55–64; PULSE 82–131; RESP 18–22; TEMP 37.2; O2SAT 91–97
--- NOTE | 2020-01-15 10:57 | ED.SOB ---
HPI - SOB/Dyspnea General Chief Complaint: Shortness of Breath/Dyspnea Stated Complaint: breathing issues since Oct./was told to be admit Time Seen by Provider: 01/15/20 10:56 Source: patient Mode of arrival: Wheelchair Limitations: no limitations History of Present Illness HPI Narrative: The patient has asthma, she is here due to dyspnea. The patient developed pneumonia about 3 months ago was treated. She says since then she has had recurring issues with dyspnea. She feels she has increase in symptoms in the last 4 days. She did use a inhaler dose this morning is feeling better. She has fever, she has no productive cough. She has no chest pain, orthopnea or peripheral edema. She complains of left anterior chest wall discomfort when coughing she has no pain there now. She has no associated abdominal pain. 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 Her medical center director referred her to the [facility] ER last night, she was evaluated in discharge. She contacted the office of her PCM, Dr. Stafford. She was again referred to the ER. She was anticipated admission last night. She readily admits she is not doing too bad right now. She has anxiety. She tells me to drive from [place] last night she had to talk to the Crisis Line most of the way home. She has had 5 or 6-COVID-19 test over the past 3 months. She apparently had a negative COVID test last night in [facility] also. Related Data Home Medications Medication Instructions Recorded Confirmed garlic oil 2 dose PO DIRECTED 09/20/18 12/30/19 sennosides [senna] 17.2 mg PO BEDTIME PRN 09/20/18 12/30/19 furosemide 20 mg tablet 20 mg PO DAILY 10/29/18 12/30/19 potassium chloride 20 mEq 20 meq PO DAILY PRN 10/29/18 12/30/19 tablet,extended release budesonide 32 mcg/actuation nasal 1 spray INTRANASAL DAILY ml 12/25/18 12/30/19 spray lidocaine 5 % topical ointment 1 applic TOPICAL TID PRN 12/25/18 12/30/19 levalbuterol tartrate 45 2 inhalation INHALATION BID gram 08/26/19 12/30/19 mcg/actuation aerosol inhaler metoclopramide HCl 5 mg PO DAILY PRN 09/23/19 12/30/19 diphenhydramine HCl [Benadryl] 75 mg PO DAILY PRN 10/26/19 12/30/19 ibuprofen 800 mg PO DAILY PRN 10/26/19 12/30/19 ketorolac [Sprix] 15.75 mg INTRANASAL Q6-8H PRN 10/26/19 12/30/19 ketotifen fumarate [Zaditor] 1 drp OPHTHALMIC (EYE) BID 10/26/19 12/30/19 montelukast 10 mg PO BEDTIME PRN 10/26/19 12/30/19 sumatriptan succinate 6 mg SUBCUT .COMPLEX PRN 10/26/19 12/30/19 diazepam 5 mg tablet 5 mg PO TID PRN tab 12/12/19 12/30/19 gabapentin 600 mg tablet 600 mg PO TID tab 12/12/19 12/30/19 omeprazole 20 mg capsule,delayed 20 mg PO BID cap 12/30/19 12/30/19 release Previous Rx's Medication Instructions Recorded ondansetron HCl 8 mg tablet 8 mg PO Q12H PRN #20 tab 01/07/19 promethazine 25 mg tablet 25 mg PO Q8H PRN #12 tab 02/11/19 sumatriptan succinate 100 mg tablet 100 mg PO ONCE PRN #14 tab 02/18/19 rizatriptan 10 mg tablet 10 mg PO .COMPLEX PRN #12 tab 03/11/19 levalbuterol HCl 0.63 mg/3 mL 0.63 mg INHALATION Q8H PRN #90 ml 09/11/19 solution for nebulization methocarbamol 750 mg tablet 750 mg PO TID PRN #90 tab 09/29/19 pramipexole 0.75 mg tablet 0.75 mg PO BEDTIME #90 tab 09/29/19 budesonide-formoterol HFA 80 2 puff INHALATION BID #10.2 gram 09/30/19 mcg-4.5 mcg/actuation aerosol inhaler mirtazapine 7.5 mg tablet 7.5 mg PO BEDTIME PRN #90 tab 12/05/19 lamotrigine 25 mg tablet See Rx Instructions PO ONCE #78 tab 12/09/19 vortioxetine 10 mg tablet 10 mg PO DAILY #90 tab 12/15/19 oxycodone 5 mg tablet 5 mg PO DAILY PRN #20 tab 12/30/19 epinephrine 0.3 mg/0.3 mL 0.3 mg IM ONCE PRN #1 ea 01/01/20 injection, auto-injector lithium carbonate 300 mg capsule 300 mg PO BEDTIME #30 cap 01/07/20 Allergies Allergy/AdvReac Type Severity Reaction Status Date / Time latex Allergy Severe Rash Verified 12/30/19 11:05 morphine [MORPHINE] Allergy Severe Anaphylaxis Verified 12/30/19 11:05 Penicillins [PENICILLINS] Allergy Severe Anaphylaxis Verified 12/30/19 11:05 Sulfa (Sulfonamide Allergy Severe RASH Verified 12/30/19 11:05 Antibiotics) [SULFA (SULFONAMIDE ANTIBIOTICS)] azithromycin Allergy Intermediate Rash Verified 12/30/19 11:05 [From ZITHROMAX Z-MARILYN] cefuroxime [From Ceftin] Allergy Intermediate Rash Verified 12/30/19 11:05 sulfamethoxazole Allergy Intermediate RASH Verified 12/30/19 11:05 [From SEPTRA] trimethoprim [From SEPTRA] Allergy Intermediate RASH Verified 12/30/19 11:05 ciprofloxacin [From Cipro] Allergy Pt does Verified 12/30/19 11:05 not remember reaction cephalexin [From Keflex] AdvReac Severe Fever, Verified 12/30/19 11:05 Asthma, Tachycardia prednisone AdvReac Severe nausea and Verified 12/30/19 11:05 feels very weak, and axious verapamil AdvReac Intermediate Asthma Verified 12/30/19 11:05 symptoms zonisamide AdvReac Intermediate Asthma Verified 12/30/19 11:05 symptoms steroids AdvReac Swelling Uncoded 12/30/19 11:05 of Lip/Tongue/Throat Review of Systems Constitutional Constitutional: Reports system reviewed and no additional complaints, except as documented, Denies chills, Denies fatigue, Denies fever(s), Denies headache(s), Denies malaise and Denies weakness Eyes Eyes: Denies blurry vision and Denies change in vision ENT Ears, Nose, Mouth, and Throat: Denies headache(s) Cardiovascular Cardiovascular: Denies chest pain, Denies irregular heart rhythm, Denies lightheadedness and Reports dyspnea Respiratory Respiratory: Reports as per HPI, Denies cough and Reports dyspnea Gastrointestinal Gastrointestinal: Denies abdominal pain, Denies diarrhea, Denies nausea and Denies vomiting Musculoskeletal Musculoskeletal: Denies back pain and Denies arthralgias Comments: No lower extremity edema. Integumentary/Breasts Skin/Breast: Denies erythema, Denies rash and Denies wounds Neurologic Neurologic: Denies headache(s) and Denies weakness Psychiatric Psychiatric: Reports anxiety Endocrine Endocrine: Denies fatigue and Denies flushing Hematologic/Lymphatic Hematologic/Lymphatic: Denies easy bruising Patient History Medical History Anemia Anxiety Asthma Chronic back pain Chronic cough Depression Femur fracture, left Fibromyalgia Fractures GERD (gastroesophageal reflux disease) Hiatal hernia Recurrent sinusitis Surgical History Anesthesia History of eye surgery (~1973) History of foot surgery History of hysterectomy (~1979) History of shoulder surgery (~2011) History of tonsillectomy (~1975) Hx of bilateral cataract extraction Family History Mother Heart disease Social History marital status: number of children: 1 household members: none lives independently: Yes caregiver/support person: Yes (3 afternoons per week) pets and animals: Yes occupational status: disabled Smoking Status: Never smoker alcohol intake: never substance use type: does not use Smoking Status: Never smoker alcohol intake frequency: 0-2 drinks per day Substance Use Type: does not use and unknown Exam Initial Vital Signs Initial Vital Signs: Vital Signs Respiratory Rate 18 01/15/20 10:32 Blood Pressure 128/64 01/15/20 10:32 Const General: cooperative, well developed and anxious Nutritional Appearance: well nourished [facility] Head: normocephalic and atraumatic Mouth: oral mucosae normal Eyes General: appearance normal, both eyes and all related structures Eyelids: eyelids normal Conjunctivae: conjunctivae normal Sclera: sclerae normal Pupils: PERRL EOM: EOM intact bilaterally Neck Neck: No JVD Chest Chest: normal palpation of entire chest wall Resp Auscultation: clear to auscultation bilaterally Cardio Rate: regular rate Rhythm: regular rhythm Heart Sounds: S1 normal, S2 normal, no click, no gallops, no murmurs and no rubs Pulses: normal peripheral pulses GI Inspection: non-distended Palpation: soft, no hepatosplenomegaly, No guarding and No tender Auscultation: normal bowel sounds Back/Spine/Pelvis Back: No CVA tenderness Skin General: no rashes or lesions noted Neuro General: patient alert, patient oriented x3, gait normal and no focal motor deficits Speech: speech normal Extrem General: full ROM, no pedal edema and no calf tenderness Psych Other: Pleasant, clear historian. Anxious. Course Orders Ordered: ED Orders 01/15/20 10:58 Consult to Respiratory Therapy Evaluate & Treat EKG-12 Lead Stat 01/15/20 11:40 Basic Metabolic Panel Stat Complete Blood Count AUTO DIFF Stat D Dimer Stat Lactate (Lactic Acid) Stat Magnesium Stat NT-proBNP (BNP-Adult 18+) Stat Procalcitonin Stat Troponin & CK Cardiac Panel Stat 01/15/20 12:56 XR chest 1V Stat 01/15/20 13:37 [place] Stat 01/15/20 14:09 Blood Culture Stat Discontinued Medications Methylprednisolone (Methylprednisolone 125 Mg/2 Ml Vial) 125 mg IV NOW ONE Stop: 01/15/20 10:59 Last Admin: 01/15/20 12:11 Dose: 125 mg Documented by: HOLLY Vital Signs Vital signs: Vital Signs - 8 hr 01/15/20 10:32 01/15/20 10:33 01/15/20 10:35 Temperature 99.0 F Pulse Rate 98 H 100 H Respiratory Rate 18 22 Blood Pressure 128/64 128/64 Pulse Oximetry 96 97 01/15/20 11:00 01/15/20 11:30 01/15/20 12:00 Temperature Pulse Rate 131 H 84 83 Respiratory Rate Blood Pressure Pulse Oximetry 93 94 95 01/15/20 12:30 01/15/20 13:00 01/15/20 13:30 Temperature Pulse Rate 88 92 H 82 Respiratory Rate 18 Blood Pressure 117/55 L Pulse Oximetry 95 95 94 MDM - SOB/Dyspnea Lab Data Result diagrams: 01/15/20 11:40 01/15/20 11:40 Labs: Lab Results 01/15/20 01/15/20 01/15/20 Range/Units 11:40 11:40 11:40 WBC 9.4 (4.5-11.0) X10^3/uL RBC 3.68 L (4.0-5.2) X10^6/uL Hgb 9.9 L (12.0-16.0) g/dL Hct 30.1 L (36-46) % MCV 81.6 (80-100) fL MCH 26.9 (26-34) PG MCHC 33.0 (30-36) % RDW 15.9 H (11.6-14.8) % Plt Count 301 (150-400) X10^3/uL Neut % (Auto) 86.5 H (50-75) % Lymph % (Auto) 9.6 L (25-40) % [place] % (Auto) 2.9 L (3-14) % Eos % (Auto) 0.4 L (2-4) % Baso % (Auto) 0.6 (0-2) % Neut # (Auto) 8200 H (8381-4262) /uL Lymph # (Auto) 900 L (9622-1887) /uL [place] # (Auto) 300 (0-900) /uL Eos # (Auto) 0 (0-450) /uL Baso # (Auto) 100 (0-100) /uL D-Dimer 737 H (<230) ng/mL Sodium 137 (137-145) mmol/L Potassium 4.3 (3.4-5.1) mmol/L Chloride 105 (98-107) mmol/L Carbon Dioxide 29 (22-32) mmol/L BUN 23 H (7-17) mg/dL Creatinine 0.73 (0.52-1.04) mg/dL Estimated GFR > 60.0 (>60) mL/min BUN/Creatinine Ratio 31.5 H (6-22) Glucose 134 H (80-110) mg/dL Lactate (0.7-2.1) mmol/L Calcium 9.4 (8.4-10.2) mg/dL Magnesium 1.8 (1.6-2.3) mg/dL Total Creatine Kinase 238 H (30-135) U/L CK-MB (CK-2) 4.19 H (<2.37) ng/mL CK-MB (CK-2) Rel Index 1.8 (1.5-5.0) % Troponin I < 0.012 (0.01-0.034) ng/mL NT-Pro-B Natriuret Pep 36 (<125) pg/mL Procalcitonin (<0.5) ng/mL [place] (0.6-1.2) mmol/L 01/15/20 01/15/20 01/15/20 Range/Units 11:40 11:40 13:37 WBC (4.5-11.0) X10^3/uL RBC (4.0-5.2) X10^6/uL Hgb (12.0-16.0) g/dL Hct (36-46) % MCV (80-100) fL MCH (26-34) PG MCHC (30-36) % RDW (11.6-14.8) % Plt Count (150-400) X10^3/uL Neut % (Auto) (50-75) % Lymph % (Auto) (25-40) % [place] % (Auto) (3-14) % Eos % (Auto) (2-4) % Baso % (Auto) (0-2) % Neut # (Auto) (5973-9414) /uL Lymph # (Auto) (0322-9377) /uL [place] # (Auto) (0-900) /uL Eos # (Auto) (0-450) /uL Baso # (Auto) (0-100) /uL D-Dimer (<230) ng/mL Sodium (137-145) mmol/L Potassium (3.4-5.1) mmol/L Chloride (98-107) mmol/L Carbon Dioxide (22-32) mmol/L BUN (7-17) mg/dL Creatinine (0.52-1.04) mg/dL Estimated GFR (>60) mL/min BUN/Creatinine Ratio (6-22) Glucose (80-110) mg/dL Lactate 1.6 (0.7-2.1) mmol/L Calcium (8.4-10.2) mg/dL Magnesium (1.6-2.3) mg/dL Total Creatine Kinase (30-135) U/L CK-MB (CK-2) (<2.37) ng/mL CK-MB (CK-2) Rel Index (1.5-5.0) % Troponin I (0.01-0.034) ng/mL NT-Pro-B Natriuret Pep (<125) pg/mL Procalcitonin < 0.05 (<0.5) ng/mL [place] < 0.2 L (0.6-1.2) mmol/L ECG Data Attestation: I personally reviewed and interpreted this ECG as follows: (Normal sinus rhythm rate 77 beats per minute. Normal intervals. No ectopy. No acute ST T wave changes.) Discharge Plan Departure Patient Disposition: Home Clinical Impression: Anxiety, Hernia, hiatal Asthma exacerbation Qualifiers: Asthma severity: mild Asthma persistence: intermittent Qualified Code(s): J45.21 - Mild intermittent asthma with (acute) exacerbation Instructions: Hiatal Hernia, Asthma -- Adult Activity Restrictions/Additional Instructions: Continue your current treated measuring for asthma. Your currently breathing quite well. You have a diagnosis of GERD. On the x-ray you have a hiatal hernia, a hiatal hernia generally has similar symptoms. However, a severe hiatal hernia may agitate asthma symptoms. I contacted Dr. Stafford' s office, I talked to his partner, Dr. Fleming. Dr. Piper is not available. They will call you about a follow-up appointment tomorrow, to continue your asthma care. Treatment for hiatal hernia and acid reflux are usually the same. Your current needs can be further discussed in the clinic needed tomorrow. Return to the ER as needed. Prescriptions: No Action furosemide [Lasix] 20 mg tablet 20 mg PO DAILY RF: 0 potassium chloride 20 mEq tablet extended release 20 meq PO DAILY PRN (Reason: Take w/lasix) RF: 0 mirtazapine 7.5 mg tablet 7.5 mg PO BEDTIME PRN (Reason: Anxiety, sleep) Qty: 90 RF: 0 lamotrigine 25 mg tablet See Rx Instructions PO ONCE Qty: 78 RF: 0 diazepam 5 mg tablet 5 mg PO TID PRN (Reason: anxiety/sleep) RF: 0 promethazine 25 mg tablet 25 mg PO Q8H PRN (Reason: nausea and vomiting) Qty: 12 RF: 1 sumatriptan succinate 100 mg tablet 100 mg PO ONCE PRN (Reason: migraine headache) Qty: 14 RF: 3 rizatriptan 10 mg tablet 10 mg PO .COMPLEX PRN (Reason: migraine headache) Qty: 12 RF: 3 levalbuterol HCl 0.63 mg/3 mL solution for nebulization 0.63 mg INHALATION Q8H PRN (Reason: shortness of breath or wheezing) Qty: 90 RF: 11 methocarbamol 750 mg tablet 750 mg PO TID PRN (Reason: Spasms) Qty: 90 RF: 3 pramipexole [Mirapex] 0.75 mg tablet 0.75 mg PO BEDTIME Qty: 90 RF: 3 budesonide-formoterol [Symbicort] 80-4.5 mcg/actuation HFA aerosol inhaler 2 puff INHALATION BID Qty: 10.2 RF: 11 Trintellix 10 mg tablet 10 mg PO DAILY Qty: 90 RF: 0 epinephrine 0.3 mg/0.3 mL auto-injector 0.3 mg IM ONCE PRN (Reason: Allergic Reaction) Qty: 1 RF: 11 lithium carbonate 300 mg capsule 300 mg PO BEDTIME Qty: 30 RF: 0 levalbuterol tartrate [Xopenex HFA] 45 mcg/actuation HFA aerosol inhaler 2 inhalation INHALATION BID RF: 0 omeprazole 20 mg capsule,delayed release(DR/EC) 20 mg PO BID RF: 0 oxycodone 5 mg tablet 5 mg PO DAILY PRN (Reason: pain) Qty: 20 RF: 0 metoclopramide HCl 5 mg Tablet 5 mg PO DAILY PRN (Reason: Migraine onset) RF: 0 sennosides [senna] 8.6 mg Tablet 17.2 mg PO BEDTIME PRN (Reason: Constipation) RF: 0 garlic oil 2 dose PO DIRECTED RF: 0 budesonide 32 mcg/actuation spray,non-aerosol 1 spray intranasal DAILY RF: 0 lidocaine 5 % ointment 1 applic TOPICAL TID PRN (Reason: Pain) RF: 0 montelukast 10 mg tablet 10 mg PO BEDTIME PRN (Reason: Allergy Symptoms) RF: 0 sumatriptan succinate 6 mg/0.5 mL pen injector 6 mg SUBCUT .COMPLEX PRN (Reason: Migraine Headache) RF: 0 ibuprofen 800 mg Tablet 800 mg PO DAILY PRN (Reason: pain) RF: 0 ketotifen fumarate [Zaditor] 0.025 % (0.035 %) Drops 1 drp OPHTHALMIC (EYE) BID RF: 0 diphenhydramine HCl [Benadryl] 25 mg Capsule 75 mg PO DAILY PRN (Reason: Allergy Symptoms) RF: 0 ketorolac [Sprix] 15.75 mg/spray [place],Non-Aerosol 15.75 mg INTRANASAL Q6-8H PRN (Reason: Migraine Headache) RF: 0 gabapentin [Neurontin] 600 mg tablet 600 mg PO TID RF: 0 ondansetron HCl [Zofran] 8 mg tablet 8 mg PO Q12H PRN (Reason: nausea and vomiting) Qty: 20 RF: 3 Referrals: Rashad Stafford MD [Primary Care Provider] -
[2020-01-15 11:54] LABS: Add Manual Diff / Slide Review NO; Basophils Absolute Auto 100 /uL (0-100); Basophils Percent Auto 0.6 % (0-2); Eosinophils Absolute Auto 0 /uL (0-450); Eosinophils Percent Auto 0.4 % (2-4); Hematocrit 30.1 % (36-46); Hemoglobin 9.9 g/dL (12.0-16.0); Lymphocytes Absolute Auto 900 /uL (1100-4500); Lymphocytes Percent Auto 9.6 % (25-40); Mean Corpuscular Hemoglobin 26.9 PG (26-34); Mean Corpuscular Volume 81.6 fL (80-100); Monocytes Absolute Auto 300 /uL (0-900); Monocytes Percent Auto 2.9 % (3-14); Neutrophils Absolute Auto 8200 /uL (1500-7000); Neutrophils Percent Auto 86.5 % (50-75); Platelet Count 301 X10^3/uL (150-400); Red Blood Cell Count 3.68 X10^6/uL (4.0-5.2); Red Cell Distribution Width 15.9 % (11.6-14.8); White Blood Cell Count 9.4 X10^3/uL (4.5-11.0)
[2020-01-15 11:59] LABS: D Dimer 737 ng/mL (<230)
[2020-01-15 12:02] LABS: Lactate (Lactic Acid) 1.6 mmol/L (0.7-2.1)
[2020-01-15 12:03] LABS: BUN Creatinine Ratio 31.5 (6-22); Blood Urea Nitrogen 23 mg/dL (7-17); Calcium 9.4 mg/dL (8.4-10.2); Carbon Dioxide 29 mmol/L (22-32); Chloride 105 mmol/L (98-107); Creatine Kinase 238 U/L (30-135); Estimated Glomerular Filt Rate > 60.0 mL/min (>60); Glucose 134 mg/dL (80-110); HEMOLYSIS < 15 (0-50); Magnesium 1.8 mg/dL (1.6-2.3); Potassium 4.3 mmol/L (3.4-5.1); Sodium 137 mmol/L (137-145)
[2020-01-15] MEDS: methylPREDNISolone 125 MG/2 ML VIAL IV (12:11)
[2020-01-15 12:13] LABS: NT-proBNP (BNP-Adult 18+) 36 pg/mL (<125); Troponin I < 0.012 ng/mL (0.01-0.034)
[2020-01-15 12:19] LABS: CKMB % Relative Index 1.8 % (1.5-5.0); Creatine Kinase MB 4.19 ng/mL (<2.37)
[2020-01-15 12:21] LABS: Procalcitonin < 0.05 ng/mL (<0.5)
--- NOTE | 2020-01-15 12:56 | DI.RAD.S_ITS ---
PROCEDURE: XR CHEST 1V INDICATIONS: Dyspnea. Asthma. TECHNIQUE: One view of the chest was acquired. COMPARISON: [facility], CR, XR CHEST 2V, 12/24/2019, 13:14. [facility], CR, XR CHEST 2V, 11/16/2019, 13:03. FINDINGS: Surgical changes and devices: None. Lungs and pleura: Lungs are clear. No pleural effusions or pneumothorax. Mediastinum: Mediastinal contours appear normal except for a moderate-sized hiatal hernia behind the heart. Heart size is normal. Bones and chest wall: No suspicious bony lesions. Overlying soft tissues appear unremarkable. Prior proximal humeral fracture fixation. IMPRESSION: Hiatal hernia behind the heart, no pneumothorax or pneumonia found. Dictated by: Gonzalez Dsouza M.D. on 01/15/2020 at 13:23 Approved by: Gonzalez Dsouza M.D. on 01/15/2020 at 13:24
[2020-01-15 13:42] LABS: Lithium < 0.2 mmol/L (0.6-1.2)
== END 2020-01-15 14:42 | disposition home or self-care (01) ==
PROVIDERS: Emergency Provider Emergency Medicine; PCP Student in an Organized Health Care Education/Training Program
DX: J45.21 Mild intermittent asthma with (acute) exacerbation (principal); R50.9 Fever, unspecified; R07.89 Other chest pain; F41.9 Anxiety disorder, unspecified; K44.9 Diaphragmatic hernia without obstruction or gangrene
CPT/HCPCS: 36415; 71045; 80048; 80178; 82550; 82553; 83605; 83735; 83880; 84145; 84484; 85025; 85379; 87040; 93005; 96374; 99284; J2930

== ENCOUNTER 2020-01-21 10:24 | Emergency (ER) | payer MEDICARE, MEDICAID, SELFPAY ==
[2019-10-26 12:26] VITALS: BMI 32.8
[2020-01-21] VITALS (7 sets, daily range): BP systolic 113–130; BP diastolic 56–74; PULSE 92–100; RESP 20–41; TEMP 36.7; O2SAT 95–100
--- NOTE | 2020-01-21 10:27 | DI.RAD.S_ITS ---
PROCEDURE: XR CHEST 1V INDICATIONS: shortness of breath TECHNIQUE: One view of the chest was acquired. COMPARISON: [facility], CT, CT CHEST HIGH RESOLUTION, 11/21/2019, 12:25. [facility], CR, XR CHEST 1V, 01/15/2020, 12:58. FINDINGS: Surgical changes and devices: Remote proximal left humeral orthopedic fixation.. Lungs and pleura: Lungs are clear. No pleural effusions or pneumothorax. Mediastinum: Mediastinal contours appear normal. Heart size is normal. Moderate hiatal hernia. Bones and chest wall: No suspicious bony lesions. Overlying soft tissues appear unremarkable. IMPRESSION: Moderate hiatal hernia. No evidence acute pulmonary process. Dictated by: Michael Serrato M.D. on 01/21/2020 at 11:01 Approved by: Michael Serrato M.D. on 01/21/2020 at 11:02
[2020-01-21 11:23] LABS: Add Manual Diff / Slide Review NO; Basophils Absolute Auto 100 /uL (0-100); Basophils Percent Auto 0.4 % (0-2); Eosinophils Absolute Auto 100 /uL (0-450); Eosinophils Percent Auto 0.8 % (2-4); Hematocrit 31.4 % (36-46); Lymphocytes Absolute Auto 1300 /uL (1100-4500); Lymphocytes Percent Auto 10.2 % (25-40); Mean Corpuscular HGB Conc 31.9 % (30-36); Mean Corpuscular Hemoglobin 26.2 PG (26-34); Monocytes Absolute Auto 600 /uL (0-900); Monocytes Percent Auto 4.6 % (3-14); Neutrophils Absolute Auto 10500 /uL (1500-7000); Platelet Count 313 X10^3/uL (150-400); Red Blood Cell Count 3.83 X10^6/uL (4.0-5.2); Red Cell Distribution Width 15.9 % (11.6-14.8); White Blood Cell Count 12.5 X10^3/uL (4.5-11.0)
[2020-01-21 11:32] LABS: Alanine Aminotransferase 27 IU/L (<35); Albumin 4.2 g/dL (3.5-5.0); Albumin Globulin Ratio 1.4 (1.0-2.8); Alkaline Phosphatase 72 U/L (38-126); Aspartate Aminotransferase 30 IU/L (14-36); Bilirubin Total 0.3 mg/dL (0.2-1.3); Blood Urea Nitrogen 25 mg/dL (7-17); Calcium 9.4 mg/dL (8.4-10.2); Carbon Dioxide 29 mmol/L (22-32); Chloride 103 mmol/L (98-107); Creatine Kinase 143 U/L (30-135); Estimated Glomerular Filt Rate 55.6 mL/min (>60); Glucose 121 mg/dL (80-110); HEMOLYSIS < 15 (0-50); PTT Partial Thromboplastin Tim 31 SECONDS (26.4-36.2); Potassium 4.4 mmol/L (3.4-5.1); Sodium 136 mmol/L (137-145); Total Protein 7.2 g/dL (6.3-8.2)
--- NOTE | 2020-01-21 11:36 | PC.NURSE ---
Pt states h/o hiatal hernia which she believes is worsening. has a consult with surgeon. states she is increasingly more SOB. Clear throughout on auscultation. Pt took extra Lasix at home which she states has minimally helped. Edema in LE 1+ and reports that is not normal for her. RR even and unlabored. Ambulated to and from BR with steady gait. SPO2 98%
[2020-01-21 11:44] LABS: NT-proBNP (BNP-Adult 18+) 42 pg/mL (<125); Troponin I < 0.012 ng/mL (0.01-0.034)
[2020-01-21 11:47] LABS: CKMB % Relative Index 2.1 % (1.5-5.0); Creatine Kinase MB 3.01 ng/mL (<2.37)
[2020-01-21 12:14] LABS: COVID19 -Nasal RAPID Negative (Negative)
[2020-01-21 12:45] LABS: Procalcitonin < 0.05 ng/mL (<0.5)
--- NOTE | 2020-01-21 12:48 | ED_ITS ---
HPI - General Adult General Chief complaint: Shortness of Breath/Dyspnea Stated complaint: dyspnea x1 day Time Seen by Provider: 01/21/20 10:26 Source: patient Mode of arrival: Ambulatory Limitations: no limitations History of Present Illness HPI narrative: 64-year-old female with known chronic lung issues. She is seen by pulmonology at [place]. She is also being followed by Allergy and immunology. She has multiple inhalers at home. She is currently on steroids. She is currently on antibiotics. She also has a known hernia. She is scheduled to see General surgery on Sunday of next week to discuss treatment of the hiatal hernia. She is here because she states that she feels like she cannot wait until Sunday. Related Data Home Medications Medication Instructions Recorded Confirmed garlic oil 2 dose PO DIRECTED 09/20/18 12/30/19 sennosides [senna] 17.2 mg PO BEDTIME PRN 09/20/18 12/30/19 furosemide 20 mg tablet 20 mg PO DAILY 10/29/18 12/30/19 potassium chloride 20 mEq 20 meq PO DAILY PRN 10/29/18 12/30/19 tablet,extended release budesonide 32 mcg/actuation nasal 1 spray INTRANASAL DAILY ml 12/25/18 12/30/19 spray lidocaine 5 % topical ointment 1 applic TOPICAL TID PRN 12/25/18 12/30/19 levalbuterol tartrate 45 2 inhalation INHALATION BID gram 08/26/19 12/30/19 mcg/actuation aerosol inhaler metoclopramide HCl 5 mg PO DAILY PRN 09/23/19 12/30/19 diphenhydramine HCl [Benadryl] 75 mg PO DAILY PRN 10/26/19 12/30/19 ibuprofen 800 mg PO DAILY PRN 10/26/19 12/30/19 ketorolac [Sprix] 15.75 mg INTRANASAL Q6-8H PRN 10/26/19 12/30/19 ketotifen fumarate [Zaditor] 1 drp OPHTHALMIC (EYE) BID 10/26/19 12/30/19 montelukast 10 mg PO BEDTIME PRN 10/26/19 12/30/19 sumatriptan succinate 6 mg SUBCUT .COMPLEX PRN 10/26/19 12/30/19 diazepam 5 mg tablet 5 mg PO TID PRN tab 12/12/19 12/30/19 gabapentin 600 mg tablet 600 mg PO TID tab 12/12/19 12/30/19 Previous Rx's Medication Instructions Recorded ondansetron HCl 8 mg tablet 8 mg PO Q12H PRN #20 tab 01/07/19 promethazine 25 mg tablet 25 mg PO Q8H PRN #12 tab 02/11/19 sumatriptan succinate 100 mg tablet 100 mg PO ONCE PRN #14 tab 02/18/19 rizatriptan 10 mg tablet 10 mg PO .COMPLEX PRN #12 tab 03/11/19 levalbuterol HCl 0.63 mg/3 mL 0.63 mg INHALATION Q8H PRN #90 ml 09/11/19 solution for nebulization methocarbamol 750 mg tablet 750 mg PO TID PRN #90 tab 09/29/19 pramipexole 0.75 mg tablet 0.75 mg PO BEDTIME #90 tab 09/29/19 budesonide-formoterol HFA 80 2 puff INHALATION BID #10.2 gram 09/30/19 mcg-4.5 mcg/actuation aerosol inhaler mirtazapine 7.5 mg tablet 7.5 mg PO BEDTIME PRN #90 tab 12/05/19 lamotrigine 25 mg tablet See Rx Instructions PO ONCE #78 tab 12/09/19 vortioxetine 10 mg tablet 10 mg PO DAILY #90 tab 12/15/19 oxycodone 5 mg tablet 5 mg PO DAILY PRN #20 tab 12/30/19 epinephrine 0.3 mg/0.3 mL 0.3 mg IM ONCE PRN #1 ea 01/01/20 injection, auto-injector lithium carbonate 300 mg capsule 300 mg PO BEDTIME #30 cap 01/07/20 pantoprazole 40 mg tablet,delayed 40 mg PO BID #180 tab 01/16/20 release levofloxacin 750 mg tablet 750 mg PO DAILY #7 tab 01/17/20 Allergies Allergy/AdvReac Type Severity Reaction Status Date / Time latex Allergy Severe Rash Verified 01/16/20 09:50 morphine [MORPHINE] Allergy Severe Anaphylaxis Verified 01/16/20 09:50 Penicillins [PENICILLINS] Allergy Severe Anaphylaxis Verified 01/16/20 09:50 Sulfa (Sulfonamide Allergy Severe RASH Verified 01/16/20 09:50 Antibiotics) [SULFA (SULFONAMIDE ANTIBIOTICS)] azithromycin Allergy Intermediate Rash Verified 01/16/20 09:50 [From ZITHROMAX Z-MARILYN] cefuroxime [From Ceftin] Allergy Intermediate Rash Verified 01/16/20 09:50 sulfamethoxazole Allergy Intermediate RASH Verified 01/16/20 09:50 [From SEPTRA] trimethoprim [From SEPTRA] Allergy Intermediate RASH Verified 01/16/20 09:50 ciprofloxacin [From Cipro] Allergy Pt does Verified 01/16/20 09:50 not remember reaction cephalexin [From Keflex] AdvReac Severe Fever, Verified 01/16/20 09:50 Asthma, Tachycardia prednisone AdvReac Severe nausea and Verified 01/16/20 09:50 feels very weak, and axious verapamil AdvReac Intermediate Asthma Verified 01/16/20 09:50 symptoms zonisamide AdvReac Intermediate Asthma Verified 01/16/20 09:50 symptoms steroids AdvReac Swelling Uncoded 01/16/20 09:50 of Lip/Tongue/Throat Review of Systems Constitutional Constitutional: Denies fever(s) and Denies headache(s) ENT Ears, Nose, Mouth, and Throat: Denies vertigo, Denies dizziness and Denies headache(s) Cardiovascular Cardiovascular: Denies chest pain and Reports dyspnea Respiratory Respiratory: Reports cough and Reports dyspnea Gastrointestinal Gastrointestinal: Denies abdominal pain, Denies nausea and Denies vomiting Integumentary/Breasts Skin/Breast: Denies lesions and Denies rash Neurologic Neurologic: Denies vertigo, Denies dizziness and Denies headache(s) Hematologic/Lymphatic Hematologic/Lymphatic: Denies easy bleeding and Denies easy bruising Allergic/Immunologic Allergic/Immunologic: Denies urticaria Patient History Medical History Anemia Anxiety Asthma Chronic back pain Chronic cough Depression Femur fracture, left Fibromyalgia Fractures GERD (gastroesophageal reflux disease) Hiatal hernia Recurrent sinusitis Surgical History Anesthesia History of eye surgery (~1973) History of foot surgery History of hysterectomy (~1979) History of shoulder surgery (~2011) History of tonsillectomy (~1975) Hx of bilateral cataract extraction Family History Mother Heart disease Social History marital status: number of children: 1 household members: none lives independently: Yes caregiver/support person: Yes (3 afternoons per week) pets and animals: Yes occupational status: disabled Smoking Status: Never smoker alcohol intake: never substance use type: does not use Smoking Status: Never smoker alcohol intake frequency: 0-2 drinks per day Substance Use Type: does not use and unknown Exam Initial Vital Signs Initial Vital Signs: Vital Signs Temperature 98.1 F 01/21/20 10:37 Pulse Rate 100 H 01/21/20 10:37 Respiratory Rate 24 01/21/20 10:37 Blood Pressure 113/56 L 01/21/20 10:37 Pulse Oximetry 100 01/21/20 10:37 Const General: cooperative, comfortable, well developed and well groomed Limitations: mental status not altered HENMT Head: normal to inspection and normocephalic Resp Effort & Inspection: not labored and tachypneic Auscultation: clear to auscultation bilaterally Cardio Rate: regular rate Rhythm: regular rhythm Skin Lesions: no lesions Rashes: no rashes Extrem General: capillary refill normal Psych Appearance: grossly normal and well kempt Scores GCS [place] coma scale eye opening: Spontaneous [place] coma scale verbal response: Orientated [place] coma scale motor response: Obey commands [place] coma scale total score: 15 Course Orders Ordered: ED Orders 01/21/20 10:27 XR chest 1V Stat 01/21/20 11:16 Complete Blood Count AUTO DIFF Stat Comprehensive Metabolic Panel Stat NT-proBNP (BNP-Adult 18+) Stat Partial Thromboplastin Time Stat Procalcitonin Stat Prothrombin Time INR Stat Troponin & CK Cardiac Panel Stat 01/21/20 11:30 COVID19 Stat Vital Signs Vital signs: Vital Signs - 8 hr 01/21/20 11:28 01/21/20 11:30 01/21/20 12:00 Pulse Rate 97 H 94 H 92 H Respiratory Rate 41 H 33 H 26 H Blood Pressure 129/74 Pulse Oximetry 96 95 95 01/21/20 12:01 01/21/20 12:30 01/21/20 12:53 Pulse Rate 95 H 98 H 97 H Respiratory Rate 26 H 31 H 20 Blood Pressure 121/70 130/74 Pulse Oximetry 95 95 97 Medical Decision Making Lab Data Lab results reviewed: Yes I reviewed the patient's lab results. Result diagrams: 01/21/20 11:16 01/21/20 11:16 Labs: Lab Results 01/21/20 01/21/20 01/21/20 Range/Units 11:16 11:16 11:16 WBC 12.5 H (4.5-11.0) X10^3/uL RBC 3.83 L (4.0-5.2) X10^6/uL Hgb 10.0 L (12.0-16.0) g/dL Hct 31.4 L (36-46) % MCV 82.0 (80-100) fL MCH 26.2 (26-34) PG MCHC 31.9 (30-36) % RDW 15.9 H (11.6-14.8) % Plt Count 313 (150-400) X10^3/uL Neut % (Auto) 84.0 H (50-75) % Lymph % (Auto) 10.2 L (25-40) % [place] % (Auto) 4.6 (3-14) % Eos % (Auto) 0.8 L (2-4) % Baso % (Auto) 0.4 (0-2) % Neut # (Auto) 35119 H (8596-7539) /uL Lymph # (Auto) 1300 (6092-1912) /uL [place] # (Auto) 600 (0-900) /uL Eos # (Auto) 100 (0-450) /uL Baso # (Auto) 100 (0-100) /uL PT 11.0 (10.1-12.7) SECONDS INR 1.0 (0.9-1.3) APTT 31 (26.4-36.2) SECONDS Sodium 136 L (137-145) mmol/L Potassium 4.4 (3.4-5.1) mmol/L Chloride 103 (98-107) mmol/L Carbon Dioxide 29 (22-32) mmol/L BUN 25 H (7-17) mg/dL Creatinine 1.00 (0.52-1.04) mg/dL Estimated GFR 55.6 L (>60) mL/min BUN/Creatinine Ratio 25.0 H (6-22) Glucose 121 H (80-110) mg/dL Calcium 9.4 (8.4-10.2) mg/dL Total Bilirubin 0.3 (0.2-1.3) mg/dL AST 30 (14-36) IU/L ALT 27 (<35) IU/L Alkaline Phosphatase 72 (38-126) U/L Total Creatine Kinase 143 H (30-135) U/L CK-MB (CK-2) 3.01 H (<2.37) ng/mL CK-MB (CK-2) Rel Index 2.1 (1.5-5.0) % Troponin I < 0.012 (0.01-0.034) ng/mL NT-Pro-B Natriuret Pep 42 (<125) pg/mL Total Protein 7.2 (6.3-8.2) g/dL Albumin 4.2 (3.5-5.0) g/dL Globulin 3.0 (1.7-4.1) g/dL Albumin/Globulin Ratio 1.4 (1.0-2.8) Procalcitonin (<0.5) ng/mL COVID-19 PCR (Negative) 01/21/20 01/21/20 Range/Units 11:16 11:30 WBC (4.5-11.0) X10^3/uL RBC (4.0-5.2) X10^6/uL Hgb (12.0-16.0) g/dL Hct (36-46) % MCV (80-100) fL MCH (26-34) PG MCHC (30-36) % RDW (11.6-14.8) % Plt Count (150-400) X10^3/uL Neut % (Auto) (50-75) % Lymph % (Auto) (25-40) % [place] % (Auto) (3-14) % Eos % (Auto) (2-4) % Baso % (Auto) (0-2) % Neut # (Auto) (8364-0524) /uL Lymph # (Auto) (0093-2917) /uL [place] # (Auto) (0-900) /uL Eos # (Auto) (0-450) /uL Baso # (Auto) (0-100) /uL PT (10.1-12.7) SECONDS INR (0.9-1.3) APTT (26.4-36.2) SECONDS Sodium (137-145) mmol/L Potassium (3.4-5.1) mmol/L Chloride (98-107) mmol/L Carbon Dioxide (22-32) mmol/L BUN (7-17) mg/dL Creatinine (0.52-1.04) mg/dL Estimated GFR (>60) mL/min BUN/Creatinine Ratio (6-22) Glucose (80-110) mg/dL Calcium (8.4-10.2) mg/dL Total Bilirubin (0.2-1.3) mg/dL AST (14-36) IU/L ALT (<35) IU/L Alkaline Phosphatase (38-126) U/L Total Creatine Kinase (30-135) U/L CK-MB (CK-2) (<2.37) ng/mL CK-MB (CK-2) Rel Index (1.5-5.0) % Troponin I (0.01-0.034) ng/mL NT-Pro-B Natriuret Pep (<125) pg/mL Total Protein (6.3-8.2) g/dL Albumin (3.5-5.0) g/dL Globulin (1.7-4.1) g/dL Albumin/Globulin Ratio (1.0-2.8) Procalcitonin < 0.05 (<0.5) ng/mL COVID-19 PCR Negative (Negative) Imaging Data Chest x-ray: Radiologist's Impression: [address] [id number] ReportSigned Patient: Sheryl Lennon#: [id number]: 5Acct:[id number]/Sex: 64 / FDate of Service: 01/21/20Loc: EDAccession Number: [id number] Procedure: XR chest 1V Ordering Provider: Kin Carrion D.O. PROCEDURE: XR CHEST 1V INDICATIONS: shortness of breath TECHNIQUE: One view of the chest was acquired. COMPARISON: [facility], CT, CT CHEST HIGH RESOLUTION, 11/21/2019, 12:25. [facility], CR, XR CHEST 1V, 01/15/2020, 12:58. FINDINGS: Surgical changes and devices: Remote proximal left humeral orthopedic fixation.. Lungs and pleura: Lungs are clear. No pleural effusions or pneumothorax. Mediastinum: Mediastinal contours appear normal. Heart size is normal. Moderate hiatal hernia. Bones and chest wall: No suspicious bony lesions. Overlying soft tissues appear unremarkable. IMPRESSION: Moderate hiatal hernia. No evidence acute pulmonary process. Dictated by: Michael Serrato M.D. on 01/21/2020 at 11:01 Approved by: Michael Serrato M.D. on 01/21/2020 at 11:02 [facility] Narrative Medical decision making narrative: Patient is on steroids. She is also on antibiotics. She is not hypoxic. Informed patient that unfortunately we would not be able to move up any appointment for General surgery in the emergency department. I do not feel that referral to see General surgery is an emergent issue. Patient became very upset about this. She stated that if someone over the past 7 years would have just stepped up to help her she would be in the situation that she is having now. I tried to reassure the patient that she needs to continue the antibiotic and the steroids as directed and she needed to contact the surgery clinic to see if they can move her appointment up. Patient was upset upon discharge. Discharge Plan Departure Patient Disposition: Home Clinical Impression: Esophageal hiatal hernia, Shortness of breath Instructions: How to Manage Shortness of Breath Activity Restrictions/Additional Instructions: I recommend that you continue all of your medications as directed. I also recommend that you contact the general surgery office to see if they can move up your appointment. Unfortunately we were unable to do that out of the emergency department. Return to the emergency department for any new or worsening symptoms Prescriptions: No Action furosemide [Lasix] 20 mg tablet 20 mg PO DAILY RF: 0 potassium chloride 20 mEq tablet extended release 20 meq PO DAILY PRN (Reason: Take w/lasix) RF: 0 mirtazapine 7.5 mg tablet 7.5 mg PO BEDTIME PRN (Reason: Anxiety, sleep) Qty: 90 RF: 0 lamotrigine 25 mg tablet See Rx Instructions PO ONCE Qty: 78 RF: 0 diazepam 5 mg tablet 5 mg PO TID PRN (Reason: anxiety/sleep) RF: 0 promethazine 25 mg tablet 25 mg PO Q8H PRN (Reason: nausea and vomiting) Qty: 12 RF: 1 sumatriptan succinate 100 mg tablet 100 mg PO ONCE PRN (Reason: migraine headache) Qty: 14 RF: 3 rizatriptan 10 mg tablet 10 mg PO .COMPLEX PRN (Reason: migraine headache) Qty: 12 RF: 3 levalbuterol HCl 0.63 mg/3 mL solution for nebulization 0.63 mg INHALATION Q8H PRN (Reason: shortness of breath or wheezing) Qty: 90 RF: 11 methocarbamol 750 mg tablet 750 mg PO TID PRN (Reason: Spasms) Qty: 90 RF: 3 pramipexole [Mirapex] 0.75 mg tablet 0.75 mg PO BEDTIME Qty: 90 RF: 3 budesonide-formoterol [Symbicort] 80-4.5 mcg/actuation HFA aerosol inhaler 2 puff INHALATION BID Qty: 10.2 RF: 11 Trintellix 10 mg tablet 10 mg PO DAILY Qty: 90 RF: 0 epinephrine 0.3 mg/0.3 mL auto-injector 0.3 mg IM ONCE PRN (Reason: Allergic Reaction) Qty: 1 RF: 11 lithium carbonate 300 mg capsule 300 mg PO BEDTIME Qty: 30 RF: 0 levofloxacin 750 mg tablet 750 mg PO DAILY Qty: 7 RF: 0 pantoprazole 40 mg tablet,delayed release (DR/EC) 40 mg PO BID Qty: 180 RF: 0 levalbuterol tartrate [Xopenex HFA] 45 mcg/actuation HFA aerosol inhaler 2 inhalation INHALATION BID RF: 0 oxycodone 5 mg tablet 5 mg PO DAILY PRN (Reason: pain) Qty: 20 RF: 0 metoclopramide HCl 5 mg Tablet 5 mg PO DAILY PRN (Reason: Migraine onset) RF: 0 sennosides [senna] 8.6 mg Tablet 17.2 mg PO BEDTIME PRN (Reason: Constipation) RF: 0 garlic oil 2 dose PO DIRECTED RF: 0 budesonide 32 mcg/actuation spray,non-aerosol 1 spray intranasal DAILY RF: 0 lidocaine 5 % ointment 1 applic TOPICAL TID PRN (Reason: Pain) RF: 0 montelukast 10 mg tablet 10 mg PO BEDTIME PRN (Reason: Allergy Symptoms) RF: 0 sumatriptan succinate 6 mg/0.5 mL pen injector 6 mg SUBCUT .COMPLEX PRN (Reason: Migraine Headache) RF: 0 ibuprofen 800 mg Tablet 800 mg PO DAILY PRN (Reason: pain) RF: 0 ketotifen fumarate [Zaditor] 0.025 % (0.035 %) Drops 1 drp OPHTHALMIC (EYE) BID RF: 0 diphenhydramine HCl [Benadryl] 25 mg Capsule 75 mg PO DAILY PRN (Reason: Allergy Symptoms) RF: 0 ketorolac [Sprix] 15.75 mg/spray [place],Non-Aerosol 15.75 mg INTRANASAL Q6-8H PRN (Reason: Migraine Headache) RF: 0 gabapentin [Neurontin] 600 mg tablet 600 mg PO TID RF: 0 ondansetron HCl [Zofran] 8 mg tablet 8 mg PO Q12H PRN (Reason: nausea and vomiting) Qty: 20 RF: 3 Referrals: Rashad Stafford MD [Primary Care Provider] -
== END 2020-01-21 12:58 | disposition home or self-care (01) ==
PROVIDERS: Emergency Provider Emergency Medicine; PCP Student in an Organized Health Care Education/Training Program
DX: K44.9 Diaphragmatic hernia without obstruction or gangrene (principal); R06.02 Shortness of breath; R05 Cough
CPT/HCPCS: 36415; 71045; 80053; 82550; 82553; 83880; 84145; 84484; 85025; 85610; 85730; 87635; 99283; 99284

== ENCOUNTER 2020-01-23 15:59 | Emergency (ER) | payer MEDICARE, MEDICAID, SELFPAY ==
[2019-10-26 12:26] VITALS: BMI 32.8
[2020-01-23 16:11] VITALS: BP 116/60; PULSE 85; RESP 18; TEMP 35.8; O2SAT 97; BMI 38.9
--- NOTE | 2020-01-23 16:19 | ED_ITS ---
HPI - General Adult General Chief complaint: Shortness of Breath/Dyspnea Stated complaint: I HAVE PNEUMONIA Time Seen by Provider: 01/23/20 16:01 Source: patient Mode of arrival: Family Vehicle Limitations: no limitations History of Present Illness HPI narrative: Patient is a 64-year-old female who I evaluated in emergency department a couple days ago for respiratory issues. At that point she left the department very angry if is she was here to get her appointment with General surgery moved up. Unfortunately informed her that I was unable to change any appointment with General surgery and that she needed to keep her appointment later next week. She left upset. I received a call today from the walk-in i prisca stating that the patient arrived to the walk-in clinic for concerns of pneumonia. The walk-in clinic APC informed me that she talked with the patient's pulmonology clinic stating that they recommended repeat chest x-ray and labs and a sputum culture. The APC stated that she told the patient that this is what they recommended and that they could do that in the walk-in clinic however the patient refused and left the clinic to come to the emergency department. Here in the emergency department patient states she was here for an antibiotic because of pneumonia. Patient was very coarse with answering questions I informed her that I was told by the walk-in clinic that her supervisor garage had a recommended course of treatment and that we would repeat the labs in the chest x-ray. Related Data Home Medications Medication Instructions Recorded Confirmed garlic oil 2 dose PO DIRECTED 09/20/18 01/23/20 sennosides [senna] 17.2 mg PO BEDTIME PRN 09/20/18 01/23/20 furosemide 20 mg tablet 20 mg PO DAILY 10/29/18 01/23/20 potassium chloride 20 mEq 20 meq PO DAILY PRN 10/29/18 01/23/20 tablet,extended release budesonide 32 mcg/actuation nasal 1 spray INTRANASAL DAILY ml 12/25/18 01/23/20 spray lidocaine 5 % topical ointment 1 applic TOPICAL TID PRN 12/25/18 01/23/20 levalbuterol tartrate 45 2 inhalation INHALATION BID gram 08/26/19 01/23/20 mcg/actuation aerosol inhaler metoclopramide HCl 5 mg PO DAILY PRN 09/23/19 01/23/20 diphenhydramine HCl [Benadryl] 75 mg PO DAILY PRN 10/26/19 01/23/20 ibuprofen 800 mg PO DAILY PRN 10/26/19 01/23/20 ketorolac [Sprix] 15.75 mg INTRANASAL Q6-8H PRN 10/26/19 01/23/20 ketotifen fumarate [Zaditor] 1 drp OPHTHALMIC (EYE) BID 10/26/19 01/23/20 montelukast 10 mg PO BEDTIME PRN 10/26/19 01/23/20 sumatriptan succinate 6 mg SUBCUT .COMPLEX PRN 10/26/19 01/23/20 diazepam 5 mg tablet 5 mg PO TID PRN tab 12/12/19 01/23/20 gabapentin 600 mg tablet 600 mg PO TID tab 12/12/19 01/23/20 Previous Rx's Medication Instructions Recorded ondansetron HCl 8 mg tablet 8 mg PO Q12H PRN #20 tab 01/07/19 promethazine 25 mg tablet 25 mg PO Q8H PRN #12 tab 02/11/19 sumatriptan succinate 100 mg tablet 100 mg PO ONCE PRN #14 tab 02/18/19 rizatriptan 10 mg tablet 10 mg PO .COMPLEX PRN #12 tab 03/11/19 levalbuterol HCl 0.63 mg/3 mL 0.63 mg INHALATION Q8H PRN #90 ml 09/11/19 solution for nebulization methocarbamol 750 mg tablet 750 mg PO TID PRN #90 tab 09/29/19 pramipexole 0.75 mg tablet 0.75 mg PO BEDTIME #90 tab 09/29/19 budesonide-formoterol HFA 80 2 puff INHALATION BID #10.2 gram 09/30/19 mcg-4.5 mcg/actuation aerosol inhaler mirtazapine 7.5 mg tablet 7.5 mg PO BEDTIME PRN #90 tab 12/05/19 lamotrigine 25 mg tablet See Rx Instructions PO ONCE #78 tab 12/09/19 vortioxetine 10 mg tablet 10 mg PO DAILY #90 tab 12/15/19 oxycodone 5 mg tablet 5 mg PO DAILY PRN #20 tab 12/30/19 epinephrine 0.3 mg/0.3 mL 0.3 mg IM ONCE PRN #1 ea 01/01/20 injection, auto-injector lithium carbonate 300 mg capsule 300 mg PO BEDTIME #30 cap 01/07/20 pantoprazole 40 mg tablet,delayed 40 mg PO BID #180 tab 01/16/20 release levofloxacin 750 mg tablet 750 mg PO DAILY #7 tab 01/17/20 Allergies Allergy/AdvReac Type Severity Reaction Status Date / Time latex Allergy Severe Rash Verified 01/23/20 16:21 morphine [MORPHINE] Allergy Severe Anaphylaxis Verified 01/23/20 16:21 Penicillins [PENICILLINS] Allergy Severe Anaphylaxis Verified 01/23/20 16:21 Sulfa (Sulfonamide Allergy Severe RASH Verified 01/23/20 16:21 Antibiotics) [SULFA (SULFONAMIDE ANTIBIOTICS)] azithromycin Allergy Intermediate Rash Verified 01/23/20 16:21 [From ZITHROMAX Z-MARILYN] cefuroxime [From Ceftin] Allergy Intermediate Rash Verified 01/23/20 16:21 sulfamethoxazole Allergy Intermediate RASH Verified 01/23/20 16:21 [From SEPTRA] trimethoprim [From SEPTRA] Allergy Intermediate RASH Verified 01/23/20 16:21 ciprofloxacin [From Cipro] Allergy Pt does Verified 01/23/20 16:21 not remember reaction cephalexin [From Keflex] AdvReac Severe Fever, Verified 01/23/20 16:21 Asthma, Tachycardia prednisone AdvReac Severe nausea and Verified 01/23/20 16:21 feels very weak, and axious verapamil AdvReac Intermediate Asthma Verified 01/23/20 16:21 symptoms zonisamide AdvReac Intermediate Asthma Verified 01/23/20 16:21 symptoms steroids AdvReac Swelling Uncoded 01/23/20 16:21 of Lip/Tongue/Throat Review of Systems Review of Systems Narrative: Patient angry during the HPI and not willing to answer many questions Cardiovascular Cardiovascular: Reports chest pain and Reports dyspnea Respiratory Respiratory: Reports cough and Reports dyspnea Comments: She reports that she has a productive cough in the morning and right now only has spit Hematologic/Lymphatic Comments: Not on anticoagulation Patient History Medical History Anemia Anxiety Asthma Chronic back pain Chronic cough Depression Femur fracture, left Fibromyalgia Fractures GERD (gastroesophageal reflux disease) Hiatal hernia Recurrent sinusitis Surgical History Anesthesia History of eye surgery (~1973) History of foot surgery History of hysterectomy (~1979) History of shoulder surgery (~2011) History of tonsillectomy (~1975) Hx of bilateral cataract extraction Family History Mother Heart disease Social History marital status: number of children: 1 household members: none lives independently: Yes caregiver/support person: Yes (3 afternoons per week) pets and animals: Yes occupational status: disabled Smoking Status: Never smoker alcohol intake: never substance use type: does not use Smoking Status: Never smoker alcohol intake frequency: 0-2 drinks per day Substance Use Type: does not use and unknown Exam Initial Vital Signs Initial Vital Signs: Vital Signs Temperature 96.4 F L 01/23/20 16:11 Pulse Rate 85 01/23/20 16:11 Respiratory Rate 18 01/23/20 16:11 Blood Pressure 116/60 01/23/20 16:11 Pulse Oximetry 97 01/23/20 16:11 Const Limitations: mental status not altered HENMT Head: normal to inspection and normocephalic Resp Effort & Inspection: normal respiratory effort Auscultation: clear to auscultation bilaterally Cardio Rate: tachycardic Rhythm: regular rhythm Skin Lesions: no lesions Rashes: no rashes Neuro General: patient alert and patient awake Speech: speech normal Gait: normal gait Extrem General: normal to inspection Psych Mood: angry Course Orders Ordered: ED Orders 01/23/20 16:20 XR chest 1V Stat EKG-12 Lead Stat 01/23/20 16:30 Basic Metabolic Panel Stat Complete Blood Count AUTO DIFF Stat NT-proBNP (BNP-Adult 18+) Stat Procalcitonin Stat Troponin & CK Cardiac Panel Stat Vital Signs Vital signs: Vital Signs - 8 hr 01/23/20 16:11 01/23/20 16:33 01/23/20 16:34 Temperature 96.4 F L Pulse Rate 85 85 85 Respiratory Rate 18 Blood Pressure 116/60 120/77 Pulse Oximetry 97 98 98 01/23/20 17:00 01/23/20 17:30 Temperature Pulse Rate 88 106 H Respiratory Rate 20 Blood Pressure 127/67 Pulse Oximetry 98 95 Medical Decision Making Medical Records Medical records reviewed: Yes I reviewed the patient's medical records. Lab Data Lab results reviewed: Yes I reviewed the patient's lab results. Result diagrams: 01/23/20 16:30 01/23/20 16:30 Labs: Lab Results 01/23/20 01/23/20 01/23/20 Range/Units 16:30 16:30 16:30 WBC 11.7 H (4.5-11.0) X10^3/uL RBC 3.71 L (4.0-5.2) X10^6/uL Hgb 9.7 L (12.0-16.0) g/dL Hct 30.1 L (36-46) % MCV 81.2 (80-100) fL MCH 26.2 (26-34) PG MCHC 32.2 (30-36) % RDW 16.4 H (11.6-14.8) % Plt Count 319 (150-400) X10^3/uL Neut % (Auto) 81.3 H (50-75) % Lymph % (Auto) 11.0 L (25-40) % [place] % (Auto) 6.8 (3-14) % Eos % (Auto) 0.2 L (2-4) % Baso % (Auto) 0.7 (0-2) % Neut # (Auto) 9500 H (7203-0801) /uL Lymph # (Auto) 1300 (0800-5917) /uL [place] # (Auto) 800 (0-900) /uL Eos # (Auto) 0 (0-450) /uL Baso # (Auto) 100 (0-100) /uL Sodium 137 (137-145) mmol/L Potassium 4.4 (3.4-5.1) mmol/L Chloride 106 (98-107) mmol/L Carbon Dioxide 29 (22-32) mmol/L BUN 21 H (7-17) mg/dL Creatinine 0.86 (0.52-1.04) mg/dL Estimated GFR > 60.0 (>60) mL/min BUN/Creatinine Ratio 24.4 H (6-22) Glucose 95 (80-110) mg/dL Calcium 9.3 (8.4-10.2) mg/dL Total Creatine Kinase 149 H (30-135) U/L CK-MB (CK-2) 4.33 H (<2.37) ng/mL CK-MB (CK-2) Rel Index 2.9 (1.5-5.0) % Troponin I < 0.012 (0.01-0.034) ng/mL NT-Pro-B Natriuret Pep (<125) pg/mL Procalcitonin < 0.05 (<0.5) ng/mL 01/23/20 Range/Units 16:30 WBC (4.5-11.0) X10^3/uL RBC (4.0-5.2) X10^6/uL Hgb (12.0-16.0) g/dL Hct (36-46) % MCV (80-100) fL MCH (26-34) PG MCHC (30-36) % RDW (11.6-14.8) % Plt Count (150-400) X10^3/uL Neut % (Auto) (50-75) % Lymph % (Auto) (25-40) % [place] % (Auto) (3-14) % Eos % (Auto) (2-4) % Baso % (Auto) (0-2) % Neut # (Auto) (5451-2963) /uL Lymph # (Auto) (5625-5816) /uL [place] # (Auto) (0-900) /uL Eos # (Auto) (0-450) /uL Baso # (Auto) (0-100) /uL Sodium (137-145) mmol/L Potassium (3.4-5.1) mmol/L Chloride (98-107) mmol/L Carbon Dioxide (22-32) mmol/L BUN (7-17) mg/dL Creatinine (0.52-1.04) mg/dL Estimated GFR (>60) mL/min BUN/Creatinine Ratio (6-22) Glucose (80-110) mg/dL Calcium (8.4-10.2) mg/dL Total Creatine Kinase (30-135) U/L CK-MB (CK-2) (<2.37) ng/mL CK-MB (CK-2) Rel Index (1.5-5.0) % Troponin I (0.01-0.034) ng/mL NT-Pro-B Natriuret Pep 43 (<125) pg/mL Procalcitonin (<0.5) ng/mL Imaging Data Chest x-ray: Radiologist's Impression: [facility] [place] [id number] ReportSigned Patient: Sheryl LennonMR#: [id number]: 5Acct:[id number]/Sex: 64 / FDate of Service: 01/23/20Loc: EDAccession Number: [id number] Procedure: XR chest 1V Ordering Provider: Kin Carrion D.O. PROCEDURE: XR CHEST 1V INDICATIONS: Shortness of breath TECHNIQUE: One view of the chest was acquired. COMPARISON: [facility], CT, CT CHEST HIGH RESOLUTION, 11/21/2019, 12:25. [facility], CR, XR CHEST 1V, 01/15/2020, 12:58. [facility], CR, XR CHEST 1V, 01/21/2020, 10:47. FINDINGS: Surgical changes and devices: None. Lungs and pleura: Mild bilateral lower lobe subpleural septal thickening. No focal consolidation or pleural effusion. No pleural effusions or pneumothorax. Mediastinum: Mediastinal contours appear normal. Heart size is mildly increa sed. There is a moderate size hiatal hernia. Bones and chest wall: No suspicious bony lesions. Overlying soft tissues appear unremarkable. Old proximal left humeral fracture with internal fixation. IMPRESSION: Mild cardiomegaly and bilateral subpleural septal thickening suspicious for mild pulmonary edema secondary to congestive heart failure. Dictated by: Rosanne Alex M.D. on 01/23/2020 at 16:39 Approved by: Rosanne Alex M.D. on 01/23/2020 at 16:43 ECG Data Attestation: I personally reviewed and interpreted this ECG as follows: Prior ECG tracings: not available for review Interpretation: Sinus rhythm Normal axis Normal QRS Normal QTC No ST T wave changes MDM Narrative Medical decision making narrative: My interaction with the patient today started off with her saying ?You were the one who thought there was nothing wrong with me? when I introduced myself as the provider who saw her a couple days ago. Patient has a leukocytosis of 11.7 today however this is lower than what it was couple days ago when I saw her. She has also been on steroids. Her procalcitonin is negative her BNP is negative Her EKG is reassuring her troponin is negative. Her chest x-ray does have reports of potential edema secondary to heart failure however she has a clear lung exam is not in overt heart failure and also has a negative BNP. While waiting for the labs to result, patient called out and told the [facility] that she was going to leave by 6:00 if she does not get any help. When I went into the room to discuss her lab results, the patient was on the phone. I stood in the room for a period of time and the patient did not hang up the phone so I walk out to see another patient and then came back. Upon returning to the room I informed the patient of her lab results today. Informed her that her labs does not support the diagnosis of a pneumonia. Informed her that her chest x-ray does not show any defined pneumonia. I informed her that since she just completed a course of antibiotics, obtaining a sputum culture prior to starting any further antibiotics is warranted so that we are sure that we are treating her appropriately. Patient stated ?I can spit in the cup? when asked if she can produce a sputum. The conversation between myself and the patient then became escalated. I asked the patient why she was upset with us in the emergency department. She stated that she was upset because her supervisor garage sent her to the walk-in clinic and then the walk-in clinic sent her to the emergency department. This is in the setting where a phone call that I received from the walk-in clinic Stated that the patient refused any treatment there and came to the emergency department on her own. I tried to explain to her the reasoning of not just prescribing her antibiotics given her chronic lung issues is that we need to have a sputum culture to properly treat her. She then started taking off her blood pressure cuff. I told her that it was inappropriate that she was being rude to the emergency department staff. I told her that it was rude that she called out and told the [facility] that she was going to leave that she did receive help. I informed her that we were helping her. We are evaluating her. I was doing what was right with regard to obtaining labs and a chest x-ray. She then became more upset. I did inform her that I I did not appreciate the hostile attitude towards myself and the emergency department. I informed her that we were doing her jobs properly and that we were here to help her. I informed the patient that she Will be discharged from the emergency department and that she needed to follow-up With her supervisor garage and also her primary doctor and that they can order a sputum culture and properly treat her with antibiotics. She left the department without signing any paperwork. Discharge Plan Departure Patient Disposition: Home Clinical Impression: Cough Instructions: Cough Activity Restrictions/Additional Instructions: You need to collect a sputum culture at home and then contact either your primary doctor or your supervisor garage to ordered this for you. Keep all of your scheduled medical appointments. Contact your primary doctor for follow-up Prescriptions: No Action furosemide [Lasix] 20 mg tablet 20 mg PO DAILY RF: 0 potassium chloride 20 mEq tablet extended release 20 meq PO DAILY PRN (Reason: Take w/lasix) RF: 0 mirtazapine 7.5 mg tablet 7.5 mg PO BEDTIME PRN (Reason: Anxiety, sleep) Qty: 90 RF: 0 lamotrigine 25 mg tablet See Rx Instructions PO ONCE Qty: 78 RF: 0 diazepam 5 mg tablet 5 mg PO TID PRN (Reason: anxiety/sleep) RF: 0 promethazine 25 mg tablet 25 mg PO Q8H PRN (Reason: nausea and vomiting) Qty: 12 RF: 1 sumatriptan succinate 100 mg tablet 100 mg PO ONCE PRN (Reason: migraine headache) Qty: 14 RF: 3 rizatriptan 10 mg tablet 10 mg PO .COMPLEX PRN (Reason: migraine headache) Qty: 12 RF: 3 levalbuterol HCl 0.63 mg/3 mL solution for nebulization 0.63 mg INHALATION Q8H PRN (Reason: shortness of breath or wheezing) Qty: 90 RF: 11 methocarbamol 750 mg tablet 750 mg PO TID PRN (Reason: Spasms) Qty: 90 RF: 3 pramipexole [Mirapex] 0.75 mg tablet 0.75 mg PO BEDTIME Qty: 90 RF: 3 budesonide-formoterol [Symbicort] 80-4.5 mcg/actuation HFA aerosol inhaler 2 puff INHALATION BID Qty: 10.2 RF: 11 Trintellix 10 mg tablet 10 mg PO DAILY Qty: 90 RF: 0 epinephrine 0.3 mg/0.3 mL auto-injector 0.3 mg IM ONCE PRN (Reason: Allergic Reaction) Qty: 1 RF: 11 lithium carbonate 300 mg capsule 300 mg PO BEDTIME Qty: 30 RF: 0 levofloxacin 750 mg tablet 750 mg PO DAILY Qty: 7 RF: 0 pantoprazole 40 mg tablet,delayed release (DR/EC) 40 mg PO BID Qty: 180 RF: 0 levalbuterol tartrate [Xopenex HFA] 45 mcg/actuation HFA aerosol inhaler 2 inhalation INHALATION BID RF: 0 oxycodone 5 mg tablet 5 mg PO DAILY PRN (Reason: pain) Qty: 20 RF: 0 metoclopramide HCl 5 mg Tablet 5 mg PO DAILY PRN (Reason: Migraine onset) RF: 0 sennosides [senna] 8.6 mg Tablet 17.2 mg PO BEDTIME PRN (Reason: Constipation) RF: 0 garlic oil 2 dose PO DIRECTED RF: 0 budesonide 32 mcg/actuation spray,non-aerosol 1 spray intranasal DAILY RF: 0 lidocaine 5 % ointment 1 applic TOPICAL TID PRN (Reason: Pain) RF: 0 montelukast 10 mg tablet 10 mg PO BEDTIME PRN (Reason: Allergy Symptoms) RF: 0 sumatriptan succinate 6 mg/0.5 mL pen injector 6 mg SUBCUT .COMPLEX PRN (Reason: Migraine Headache) RF: 0 ibuprofen 800 mg Tablet 800 mg PO DAILY PRN (Reason: pain) RF: 0 ketotifen fumarate [Zaditor] 0.025 % (0.035 %) Drops 1 drp OPHTHALMIC (EYE) BID RF: 0 diphenhydramine HCl [Benadryl] 25 mg Capsule 75 mg PO DAILY PRN (Reason: Allergy Symptoms) RF: 0 ketorolac [Sprix] 15.75 mg/spray [place],Non-Aerosol 15.75 mg INTRANASAL Q6-8H PRN (Reason: Migraine Headache) RF: 0 gabapentin [Neurontin] 600 mg tablet 600 mg PO TID RF: 0 ondansetron HCl [Zofran] 8 mg tablet 8 mg PO Q12H PRN (Reason: nausea and vomiting) Qty: 20 RF: 3 Referrals: Rashad Stafford MD [Primary Care Provider] -
[2020-01-23 16:33] VITALS: PULSE 85; O2SAT 98
[2020-01-23 16:34] VITALS: BP 120/77; PULSE 85; O2SAT 98
[2020-01-23 16:44] LABS: Add Manual Diff / Slide Review NO; Basophils Absolute Auto 100 /uL (0-100); Basophils Percent Auto 0.7 % (0-2); Eosinophils Absolute Auto 0 /uL (0-450); Eosinophils Percent Auto 0.2 % (2-4); Hematocrit 30.1 % (36-46); Hemoglobin 9.7 g/dL (12.0-16.0); Lymphocytes Absolute Auto 1300 /uL (1100-4500); Mean Corpuscular HGB Conc 32.2 % (30-36); Mean Corpuscular Hemoglobin 26.2 PG (26-34); Mean Corpuscular Volume 81.2 fL (80-100); Monocytes Absolute Auto 800 /uL (0-900); Monocytes Percent Auto 6.8 % (3-14); Neutrophils Absolute Auto 9500 /uL (1500-7000); Neutrophils Percent Auto 81.3 % (50-75); Platelet Count 319 X10^3/uL (150-400); Red Blood Cell Count 3.71 X10^6/uL (4.0-5.2); Red Cell Distribution Width 16.4 % (11.6-14.8); White Blood Cell Count 11.7 X10^3/uL (4.5-11.0)
[2020-01-23 16:54] LABS: BUN Creatinine Ratio 24.4 (6-22); Blood Urea Nitrogen 21 mg/dL (7-17); Calcium 9.3 mg/dL (8.4-10.2); Carbon Dioxide 29 mmol/L (22-32); Chloride 106 mmol/L (98-107); Creatine Kinase 149 U/L (30-135); Estimated Glomerular Filt Rate > 60.0 mL/min (>60); Glucose 95 mg/dL (80-110); HEMOLYSIS < 15 (0-50); Potassium 4.4 mmol/L (3.4-5.1); Sodium 137 mmol/L (137-145)
[2020-01-23 17:00] VITALS: BP 127/67; PULSE 88; O2SAT 98
[2020-01-23 17:06] LABS: Troponin I < 0.012 ng/mL (0.01-0.034)
[2020-01-23 17:08] LABS: Procalcitonin < 0.05 ng/mL (<0.5)
[2020-01-23 17:09] LABS: CKMB % Relative Index 2.9 % (1.5-5.0); Creatine Kinase MB 4.33 ng/mL (<2.37)
[2020-01-23 17:18] LABS: NT-proBNP (BNP-Adult 18+) 43 pg/mL (<125)
[2020-01-23 17:30] VITALS: PULSE 106; RESP 20; O2SAT 95
== END 2020-01-23 18:00 | disposition home or self-care (01) ==
PROVIDERS: Emergency Provider Emergency Medicine; PCP Student in an Organized Health Care Education/Training Program
DX: R05 Cough (principal); R07.9 Chest pain, unspecified; R06.00 Dyspnea, unspecified; R06.02 Shortness of breath
CPT/HCPCS: 71045; 80048; 82550; 82553; 83880; 84145; 84484; 85025; 93005; 93010; 99283; 99284

== ENCOUNTER → 2020-01-28 10:38 | Outpatient (CLI) | payer MEDICARE, MEDICAID, SELFPAY ==
[2019-10-26 12:26] VITALS: BMI 32.8
[2020-01-28 11:57] LABS: COVID19 -Nasal RAPID Negative (Negative)
== END ==
PROVIDERS: PCP Student in an Organized Health Care Education/Training Program; Visit Provider Specialist
DX: Z20.828 Contact with and (suspected) exposure to other viral communicable diseases (principal); Z01.812 Encounter for preprocedural laboratory examination
CPT/HCPCS: 87635; C9803

== ENCOUNTER 2020-01-29 07:28 | Day surgery (SDC) | payer MEDICARE, MEDICAID, SELFPAY ==
[2019-10-26 12:26] VITALS: BMI 32.8
[2020-01-29 07:59] VITALS: BP 147/80; PULSE 90; RESP 17; TEMP 36.2; O2SAT 96
[2020-01-29] MEDS: LACTATED RINGERS 1,000 ML 200 ML IV (08:13)
--- NOTE | 2020-01-29 08:28 | PM.PREOP ---
Pre-operative Note COVID-19 COVID-19 status: Negative Result date/Date tested (Pos, Neg/Pending): 01/28/20 Interval Note History & Physical reviewed/Exam performed by Physician: Yes Changes to H&P: No ASA Class (for procedural sedation): III
[2020-01-29] MEDS: LIDOCAINE 4% SOLN 50 ML 20 ML TOP (08:32)
[2020-01-29] MEDS: MIDAZOLAM 5 MG/5 ML VIAL IV ×2 (08:36→08:48)
[2020-01-29] MEDS: fentaNYL 250 MCG/5 ML INJ IV (08:37)
--- NOTE | 2020-01-29 08:47 | PM.OP.ENDO ---
Operative Date/Time/Diagnoses Date of procedure: 01/29/20 Time of procedure: 08:47 Pre-op diagnosis: Large hiatal hernia symptomatic. Dysphasia. Post-op diagnosis: same Procedure & Clinicians Study performed: EGD Same procedure as scheduled: Yes Indications: Evaluate for possible need for operation Surgeon: Rojelio Clifford Procedure Notes SCOAP/Timeout: Time-out performed Procedure in detail: The patient had topical anesthetic applied to oropharynx. She was placed in left lateral decubitus position and underwent IV sedation directed by the surgeon consisting of fentanyl and Versed. A bite block was inserted and the scope was advanced through it into the esophagus. The esophagus was unremarkable. GE junction was noted at 30 cm from the incisors. A large hiatal hernia was noted. The stomach insufflated well. There were no lesions seen in the body, antrum or at the incisura. The pyloric channel was widely patent. The duodenum was unremarkable to the 3rd part. The scope was brought back into the stomach and retroflexed. The proximal stomach was remarkable for of large hiatal hernia seen from below this well.. The scope was straightened and brought out through the esophagus again. The distance between the constriction of the diaphragm in the GE junction was approximately 6 cm. No lesions were seen. The scope was removed and the patient tolerated the procedure well. Scope withdrawal time: Not applicable Sedation minutes: 12 Findings: hiatal hernia Specimen(s): none sent Complications: none Post-procedure Plan for aftercare: Await manometry and barium swallow with speech pathology. Follow up: as needed (After the above-mentioned tests completed) Disposition: PACU
[2020-01-29 08:52] VITALS: BP 125/61; PULSE 83; RESP 18; TEMP 36.4; O2SAT 94
[2020-01-29 09:00] VITALS: BP 116/56; PULSE 83; RESP 15; O2SAT 94
[2020-01-29 09:03] VITALS: BP 117/63; PULSE 83; RESP 14; O2SAT 93
[2020-01-29 09:07] VITALS: BP 120/64; PULSE 82; RESP 22; O2SAT 93
[2020-01-29 09:12] VITALS: BP 118/64; PULSE 83; RESP 20; TEMP 36.6; O2SAT 94
== END 2020-01-29 09:32 | disposition home or self-care (01) ==
PROVIDERS: PCP Student in an Organized Health Care Education/Training Program; Referring Provider Student in an Organized Health Care Education/Training Program; Visit Provider Specialist
PROC: 0DJ08ZZ Inspection of Upper Intestinal Tract, Via Natural or Artificial Opening Endoscopic (ICD-10-PCS; CPT 43235; principal; 2020-01-29 08:30)
DX: K44.9 Diaphragmatic hernia without obstruction or gangrene (principal); R47.02 Dysphasia; J45.909 Unspecified asthma, uncomplicated; M79.7 Fibromyalgia; K21.9 Gastro-esophageal reflux disease without esophagitis; F32.9 Major depressive disorder, single episode, unspecified; F41.9 Anxiety disorder, unspecified; D64.9 Anemia, unspecified
CPT/HCPCS: 43235; 99152; J2250; J3010

== ENCOUNTER → 2020-02-09 10:24 | Outpatient (CLI) | payer MEDICARE, MEDICAID, SELFPAY ==
[2020-01-29 14:30] VITALS: BMI 32.8
[2020-02-09 12:15] LABS: COVID19 -Nasal RAPID Negative (Negative)
== END ==
PROVIDERS: PCP Student in an Organized Health Care Education/Training Program; Visit Provider Specialist
DX: Z20.828 Contact with and (suspected) exposure to other viral communicable diseases (principal)
CPT/HCPCS: 87635; C9803

== ENCOUNTER 2020-02-10 12:46 | Emergency (ER) | payer MEDICARE, MEDICAID, SELFPAY ==
[2020-01-29 14:30] VITALS: BMI 32.8
[2020-02-10] VITALS (11 sets, daily range): BP systolic 139–179; BP diastolic 68–94; PULSE 74–124; RESP 20–32; TEMP 36.9; O2SAT 94–99; BMI 35.4
[2020-02-10 15:57] LABS: COVID19 -Nasal RAPID Negative (Negative)
--- NOTE | 2020-02-10 16:22 | ED.SOB ---
HPI - SOB/Dyspnea General Chief Complaint: Shortness of Breath/Dyspnea Stated Complaint: Having A Hard Time Breathing Time Seen by Provider: 02/10/20 16:16 Source: patient Mode of arrival: Ambulatory Limitations: no limitations History of Present Illness HPI Narrative: Patient is a 64-year-old female who is here for increasing shortness of breath and chest pain. She has been seen in the emergency department multiple times for this. She has had multiple COVID test all which have been negative including today. She says the last 2 days she is having increasing chest tightness she has used her albuterol nebulizer at home which does seem to help she feels like she is using it too frequently. She denies any fever or cough. She feels chest heaviness. Related Data Home Medications Medication Instructions Recorded Confirmed garlic oil 2 dose PO DIRECTED 09/20/18 02/10/20 sennosides [senna] 17.2 mg PO BEDTIME PRN 09/20/18 02/10/20 furosemide 20 mg tablet 20 mg PO DAILY PRN 10/29/18 02/10/20 potassium chloride 20 mEq 10 meq PO DAILY PRN 10/29/18 02/10/20 tablet,extended release budesonide 32 mcg/actuation nasal 1 spray INTRANASAL DAILY ml 12/25/18 02/10/20 spray levalbuterol tartrate 45 2 inhalation INHALATION BID gram 08/26/19 02/10/20 mcg/actuation aerosol inhaler metoclopramide HCl 5 mg PO DAILY PRN 09/23/19 02/10/20 diphenhydramine HCl [Benadryl] 75 mg PO DAILY PRN 10/26/19 02/10/20 ibuprofen 800 mg PO DAILY PRN 10/26/19 02/10/20 ketorolac [Sprix] 15.75 mg INTRANASAL Q6-8H PRN 10/26/19 02/10/20 ketotifen fumarate [Zaditor] 1 drp OPHTHALMIC (EYE) BID 10/26/19 02/10/20 montelukast 10 mg PO BEDTIME PRN 10/26/19 02/10/20 sumatriptan succinate 6 mg SUBCUT .COMPLEX PRN 10/26/19 02/10/20 diazepam 5 mg tablet 5 mg PO BID PRN tab 12/12/19 02/10/20 gabapentin 600 mg tablet 600 mg PO TID tab 12/12/19 02/10/20 acetaminophen 500 mg PO Q6H PRN 02/10/20 02/10/20 mirtazapine 7.5 mg PO BEDTIME PRN 02/10/20 02/10/20 omeprazole 40 mg PO BID 02/10/20 02/10/20 oxycodone 5 mg PO QID PRN 02/10/20 02/10/20 Previous Rx's Medication Instructions Recorded ondansetron HCl 8 mg tablet 8 mg PO Q12H PRN #20 tab 01/07/19 promethazine 25 mg tablet 25 mg PO Q8H PRN #12 tab 02/11/19 sumatriptan succinate 100 mg tablet 100 mg PO ONCE PRN #14 tab 02/18/19 rizatriptan 10 mg tablet 10 mg PO .COMPLEX PRN #12 tab 03/11/19 levalbuterol HCl 0.63 mg/3 mL 0.63 mg INHALATION Q8H PRN #90 ml 09/11/19 solution for nebulization methocarbamol 750 mg tablet 750 mg PO TID PRN #90 tab 09/29/19 pramipexole 0.75 mg tablet 0.75 mg PO BEDTIME #90 tab 09/29/19 vortioxetine 10 mg tablet 10 mg PO DAILY #90 tab 12/15/19 epinephrine 0.3 mg/0.3 mL 0.3 mg IM ONCE PRN #1 ea 01/01/20 injection, auto-injector lithium carbonate 300 mg capsule 300 mg PO BEDTIME #30 cap 01/07/20 budesonide-formoterol HFA 80 2 puff INHALATION BID #10.2 gram 01/28/20 mcg-4.5 mcg/actuation aerosol inhaler Allergies Allergy/AdvReac Type Severity Reaction Status Date / Time latex Allergy Severe Rash Verified 02/10/20 12:54 morphine [MORPHINE] Allergy Severe Anaphylaxis Verified 02/10/20 12:54 Penicillins [PENICILLINS] Allergy Severe Anaphylaxis Verified 02/10/20 12:54 Sulfa (Sulfonamide Allergy Severe RASH Verified 02/10/20 12:54 Antibiotics) [SULFA (SULFONAMIDE ANTIBIOTICS)] azithromycin Allergy Intermediate Rash Verified 02/10/20 12:54 [From ZITHROMAX Z-MARILYN] cefuroxime [From Ceftin] Allergy Intermediate Rash Verified 02/10/20 12:54 sulfamethoxazole Allergy Intermediate RASH Verified 02/10/20 12:54 [From SEPTRA] trimethoprim [From SEPTRA] Allergy Intermediate RASH Verified 02/10/20 12:54 ciprofloxacin [From Cipro] Allergy Pt does Verified 02/10/20 12:54 not remember reaction cephalexin [From Keflex] AdvReac Severe Fever, Verified 02/10/20 12:54 Asthma, Tachycardia prednisone AdvReac Severe nausea and Verified 02/10/20 12:54 feels very weak, and axious verapamil AdvReac Intermediate Asthma Verified 02/10/20 12:54 symptoms zonisamide AdvReac Intermediate Asthma Verified 02/10/20 12:54 symptoms steroids AdvReac Swelling Uncoded 01/27/20 14:35 of Lip/Tongue/Throat Review of Systems Review of Systems Narrative: GENERAL: Denies chills, fatigue, malaise, fever, sweats, travel HEENT: Denies sinus pain, ear pain, sore throat, difficulty swallowing, neck pain RESPIRATORY: See HPI CARDIOVASCULAR: See HPI GASTROINTESTINAL: Denies nausea, vomiting, abdominal pain, diarrhea, constipation, melena. : Denies dysuria, frequency, incontinence, hematuria, urinary retention, flank pain. MUSCULOSKELETAL: Denies weakness, joint pain, or bony pain SKIN: No rash, no erythema, no pruritus NEUROLOGIC: Denies weakness, dizziness, headache, numbness, change in speech, confusion PSYCHIATRIC: No concerning psychosocial issues. 12 point review of systems is negative except for those stated above and HPI Patient History Medical History Anemia Anxiety Asthma Chronic back pain Chronic cough Depression Femur fracture, left Fibromyalgia Fractures GERD (gastroesophageal reflux disease) Hiatal hernia Recurrent sinusitis Surgical History Anesthesia History of eye surgery (~1973) History of foot surgery History of hysterectomy (~1979) History of shoulder surgery (~2011) History of tonsillectomy (~1975) Hx of bilateral cataract extraction Family History Mother Heart disease Social History marital status: number of children: 1 household members: none lives independently: Yes caregiver/support person: Yes (3 afternoons per week) pets and animals: Yes occupational status: disabled Smoking Status: Never smoker alcohol intake: never substance use type: does not use Smoking Status: Never smoker alcohol intake frequency: holidays/special occasions only Substance Use Type: does not use Exam Initial Vital Signs Initial Vital Signs: Vital Signs Temperature 98.5 F 02/10/20 12:53 Pulse Rate 106 H 02/10/20 12:53 Respiratory Rate 20 02/10/20 12:53 Blood Pressure 145/68 H 02/10/20 12:53 Pulse Oximetry 97 02/10/20 12:53 GENERAL: Well-appearing, well-nourished and in no acute distress. HEENT: Head atraumatic,EOMI, pupils reactive, face symmetric, moist mucous membranes CARDIOVASCULAR: Regular rate and rhythm without murmurs, rubs or gallops. RESPIRATORY: Breath sounds equal bilaterally, no wheezes rales or rhonchi. Speaks in full sentences without difficulty ABDOMEN: Soft, nontender. Normoactive bowel sounds all 4 quadrants. No guarding or rebound. EXTREMITIES: Normal range of motion, no clubbing or edema. Neurovascularly intact NEUROLOGICAL: Alert and oriented x4.Normal gait and speech. Cranial nerves II through XII grossly intact. SKIN: Warm, dry, no laceration, no petechiae, no rashes or lesions. 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[employer]er Stat 02/10/20 16:26 XR chest 2V Stat 02/10/20 16:28 CT angio chest PE protocol Stat 02/10/20 16:29 Consult to Respiratory Therapy Evaluate & Treat Discontinued Medications Albuterol/Ipratropium (Albuterol/Ipratropium 3 Ml Ampul) 3 ml INH NOW ONE Stop: 02/10/20 16:27 Last Admin: 02/10/20 16:34 Dose: 3 ml Documented by: DALI Methylprednisolone (Methylprednisolone 125 Mg/2 Ml Vial) 125 mg IV NOW ONE Stop: 02/10/20 16:33 Last Admin: 02/10/20 16:37 Dose: 125 mg Documented by: LIBRA Vital Signs Vital signs: Vital Signs - 8 hr 02/10/20 12:53 02/10/20 14:39 02/10/20 15:32 Temperature 98.5 F Pulse Rate 106 H 80 124 H Respiratory Rate 20 27 H Blood Pressure 145/68 H Pulse Oximetry 97 99 02/10/20 15:36 02/10/20 16:00 02/10/20 16:30 Temperature Pulse Rate 74 78 80 Respiratory Rate 27 H 32 H 24 Blood Pressure 179/75 H 150/77 H 148/94 H Pulse Oximetry 99 97 96 02/10/20 16:44 02/10/20 17:00 02/10/20 17:30 Temperature Pulse Rate 77 94 H 82 Respiratory Rate 24 24 Blood Pressure Pulse Oximetry 98 98 98 02/10/20 18:00 02/10/20 18:07 Temperature Pulse Rate 85 82 Respiratory Rate 24 Blood Pressure 139/81 Pulse Oximetry 96 94 MDM - SOB/Dyspnea Lab Data Attestation: I reviewed the patient's lab results. Result diagrams: 02/10/20 15:50 02/10/20 15:50 Labs: Lab Results 02/10/20 02/10/20 02/10/20 Range/Units 15:33 15:50 15:50 WBC 11.7 H (4.5-11.0) X10^3/uL RBC 3.57 L (4.0-5.2) X10^6/uL Hgb 9.2 L (12.0-16.0) g/dL Hct 28.6 L (36-46) % MCV 80.2 (80-100) fL MCH 25.7 L (26-34) PG MCHC 32.0 (30-36) % RDW 16.5 H (11.6-14.8) % Plt Count 310 (150-400) X10^3/uL Neut % (Auto) 68.2 (50-75) % Lymph % (Auto) 22.8 L (25-40) % [place] % (Auto) 7.9 (3-14) % Eos % (Auto) 0.7 L (2-4) % Baso % (Auto) 0.4 (0-2) % Neut # (Auto) 8000 H (9362-9165) /uL Lymph # (Auto) 2700 (5851-4623) /uL [place] # (Auto) 900 (0-900) /uL Eos # (Auto) 100 (0-450) /uL Baso # (Auto) 0 (0-100) /uL Sodium (137-145) mmol/L Potassium (3.4-5.1) mmol/L Chloride (98-107) mmol/L Carbon Dioxide (22-32) mmol/L BUN (7-17) mg/dL Creatinine (0.52-1.04) mg/dL Estimated GFR (>60) mL/min BUN/Creatinine Ratio (6-22) Glucose (80-110) mg/dL Calcium (8.4-10.2) mg/dL Total Bilirubin (0.2-1.3) mg/dL AST (14-36) IU/L ALT (<35) IU/L Alkaline Phosphatase (38-126) U/L Total Creatine Kinase (30-135) U/L CK-MB (CK-2) (<2.37) ng/mL CK-MB (CK-2) Rel Index (1.5-5.0) % Troponin I (0.01-0.034) ng/mL NT-Pro-B Natriuret Pep 121 (<125) pg/mL Total Protein (6.3-8.2) g/dL Albumin (3.5-5.0) g/dL Globulin (1.7-4.1) g/dL Albumin/Globulin Ratio (1.0-2.8) Procalcitonin (<0.5) ng/mL COVID-19 PCR Negative (Negative) 02/10/20 02/10/20 Range/Units 15:50 15:50 WBC (4.5-11.0) X10^3/uL RBC (4.0-5.2) X10^6/uL Hgb (12.0-16.0) g/dL Hct (36-46) % MCV (80-100) fL MCH (26-34) PG MCHC (30-36) % RDW (11.6-14.8) % Plt Count (150-400) X10^3/uL Neut % (Auto) (50-75) % Lymph % (Auto) (25-40) % [place] % (Auto) (3-14) % Eos % (Auto) (2-4) % Baso % (Auto) (0-2) % Neut # (Auto) (7681-4095) /uL Lymph # (Auto) (3655-4180) /uL [place] # (Auto) (0-900) /uL Eos # (Auto) (0-450) /uL Baso # (Auto) (0-100) /uL Sodium 137 (137-145) mmol/L Potassium 3.7 (3.4-5.1) mmol/L Chloride 106 (98-107) mmol/L Carbon Dioxide 31 (22-32) mmol/L BUN 14 (7-17) mg/dL Creatinine 0.72 (0.52-1.04) mg/dL Estimated GFR > 60.0 (>60) mL/min BUN/Creatinine Ratio 19.4 (6-22) Glucose 104 (80-110) mg/dL Calcium 9.3 (8.4-10.2) mg/dL Total Bilirubin 0.2 (0.2-1.3) mg/dL AST 41 H (14-36) IU/L ALT 37 H (<35) IU/L Alkaline Phosphatase 76 (38-126) U/L Total Creatine Kinase 291 H (30-135) U/L CK-MB (CK-2) 6.25 H (<2.37) ng/mL CK-MB (CK-2) Rel Index 2.1 (1.5-5.0) % Troponin I < 0.012 (0.01-0.034) ng/mL NT-Pro-B Natriuret Pep (<125) pg/mL Total Protein 6.7 (6.3-8.2) g/dL Albumin 3.8 (3.5-5.0) g/dL Globulin 2.9 (1.7-4.1) g/dL Albumin/Globulin Ratio 1.3 (1.0-2.8) Procalcitonin < 0.05 (<0.5) ng/mL COVID-19 PCR (Negative) Imaging Data CT scan - chest: Radiologist's Impression: PROCEDURE: CT ANGIO CHEST PE PROTOCOL INDICATIONS: sob TECHNIQUE: After the administration of intravenous contrast, 2 mm thick sections acquired from the pulmonary apices to the posterior costophrenic angles. 3-dimensional maximum intensity projection (MIP) coronal and sagittal reformats were then acquired through the thorax. For radiation dose reduction, the following was used: automated exposure control, adjustment of mA and/or kV according to patient size. COMPARISON: [facility], CT, CT ANGIO CHEST PE PROTOCOL, 08/24/2019, 16:26. FINDINGS: Image quality: Excellent. Pulmonary arteries: Pulmonary arteries are normal in size, and demonstrate no intraluminal filling defects to suggest central pulmonary embolism. Scattered subsegmental atelectasis and/or scarring. No focal consolidation. No pleural effusions or pneumothorax. Central and peripheral airways are patent. Mediastinum: Heart size is enlarged, without pericardial effusion. No mediastinal or hilar adenopathy. Thoracic aorta is normal in caliber and enhancement. Coronary artery calcifications are present. No suspicious bony lesions. Large hiatal hernia. Ribs and thoracic spine appear intact throughout. Thyroid is grossly unremarkable No axillary or supraclavicular adenopathy. Abdomen: Visualized upper abdominal solid organs appear normal in the early arterial phase of enhancement. IMPRESSION: No evidence of pulmonary embolism. No aortic dissection identified. Large hiatal hernia Scattered subsegmental atelectasis and/or scarring. No focal consolidation. Dictated by: Jace Delarosa M.D. on 02/10/2020 at 17:17 Approved by: Jace Delarosa M.D. on 02/10/2020 at 17:22 ECG Data Attestation: I personally reviewed and interpreted this ECG as follows: Prior ECG tracings: available for review Interpretation: Normal sinus rhythm rate 1 p.r. interval 155 QRS [address] changes T-wave inversion noted in AVR, similar to previous EKGs low voltage noted in lead 3 also similar to previous EKGs MDM Narrative Medical decision making narrative: The patient has had frequent ED visits for similar complaints. She has not had a pulmonary embolism study she is not hypoxic but this is the only test that has not yet been done. She actually was feeling better after Solu-Medrol and albuterol. Social work has been in to see her she is get been given resources. There is definitely a component of anxiety related to this. I have discussed with her that she needs to follow up with her primary care provider in regards to her anxiety medication. Discharge Plan Departure Patient Disposition: Home Clinical Impression: Asthma Instructions: DI for Asthma -- Adult Activity Restrictions/Additional Instructions: *You have been diagnosed with asthma *What to do: At this time no antibiotics are indicated, you have had a significant amount of testing done today and throughout the month. Please follow-up with her primary care provider in regards to your on going shortness of breath and chest discomfort Please use the phone numbers below to help avoid an emergency department visit. Warm line open 5:00 p.m. 10 9:00 p.m. Sunday through Sunday Non crisis support line [phone] Emergency department social Work [phone] *Continue to take medications as directed *Follow up with your primary care provider in 2-3 days *Return to ER if you should have chest pain shortness of breath or any new, worsening or concerning symptoms Prescriptions: No Action furosemide [Lasix] 20 mg tablet 20 mg PO DAILY PRN (Reason: Edema) RF: 0 potassium chloride 20 mEq tablet extended release 10 meq PO DAILY PRN (Reason: Take w/lasix) RF: 0 diazepam 5 mg tablet 5 mg PO BID PRN (Reason: Anxiety) RF: 0 promethazine 25 mg tablet 25 mg PO Q8H PRN (Reason: nausea and vomiting) Qty: 12 RF: 1 sumatriptan succinate 100 mg tablet 100 mg PO ONCE PRN (Reason: migraine headache) Qty: 14 RF: 3 rizatriptan 10 mg tablet 10 mg PO .COMPLEX PRN (Reason: migraine headache) Qty: 12 RF: 3 levalbuterol HCl 0.63 mg/3 mL solution for nebulization 0.63 mg INHALATION Q8H PRN (Reason: shortness of breath or wheezing) Qty: 90 RF: 11 methocarbamol 750 mg tablet 750 mg PO TID PRN (Reason: Spasms) Qty: 90 RF: 3 pramipexole [Mirapex] 0.75 mg tablet 0.75 mg PO BEDTIME Qty: 90 RF: 3 Trintellix 10 mg tablet 10 mg PO DAILY Qty: 90 RF: 0 epinephrine 0.3 mg/0.3 mL auto-injector 0.3 mg IM ONCE PRN (Reason: Allergic Reaction) Qty: 1 RF: 11 lithium carbonate 300 mg capsule 300 mg PO BEDTIME Qty: 30 RF: 0 budesonide-formoterol [Symbicort] 80-4.5 mcg/actuation HFA aerosol inhaler 2 puff INHALATION BID Qty: 10.2 RF: 0 levalbuterol tartrate [Xopenex HFA] 45 mcg/actuation HFA aerosol inhaler 2 inhalation INHALATION BID RF: 0 metoclopramide HCl 5 mg Tablet 5 mg PO DAILY PRN (Reason: Migraine onset) RF: 0 sennosides [senna] 8.6 mg Tablet 17.2 mg PO BEDTIME PRN (Reason: Constipation) RF: 0 garlic oil 2 dose PO DIRECTED RF: 0 budesonide 32 mcg/actuation spray,non-aerosol 1 spray intranasal DAILY RF: 0 montelukast 10 mg tablet 10 mg PO BEDTIME PRN (Reason: Allergy Symptoms) RF: 0 sumatriptan succinate 6 mg/0.5 mL pen injector 6 mg SUBCUT .COMPLEX PRN (Reason: Migraine Headache) RF: 0 ibuprofen 800 mg Tablet 800 mg PO DAILY PRN (Reason: pain) RF: 0 ketotifen fumarate [Zaditor] 0.025 % (0.035 %) Drops 1 drp OPHTHALMIC (EYE) BID RF: 0 diphenhydramine HCl [Benadryl] 25 mg Capsule 75 mg PO DAILY PRN (Reason: Allergy Symptoms) RF: 0 ketorolac [Sprix] 15.75 mg/spray [place],Non-Aerosol 15.75 mg INTRANASAL Q6-8H PRN (Reason: Migraine Headache) RF: 0 omeprazole 40 mg Capsule,Delayed Release(Dr/Ec) 40 mg PO BID RF: 0 acetaminophen 500 mg Tablet 500 mg PO Q6H PRN (Reason: Pain (Scale Score 1-3)) RF: 0 mirtazapine 7.5 mg Tablet 7.5 mg PO BEDTIME PRN (Reason: Sleep) RF: 0 oxycodone 5 mg tablet 5 mg PO QID PRN (Reason: Pain (Scale Score 4-6)) RF: 0 gabapentin [Neurontin] 600 mg tablet 600 mg PO TID RF: 0 ondansetron HCl [Zofran] 8 mg tablet 8 mg PO Q12H PRN (Reason: nausea and vomiting) Qty: 20 RF: 3 Referrals: Rashad Stafford MD [Primary Care Provider] -
--- NOTE | 2020-02-10 16:28 | DI.CT.S_ITS ---
PROCEDURE: CT ANGIO CHEST PE PROTOCOL INDICATIONS: sob TECHNIQUE: After the administration of intravenous contrast, 2 mm thick sections acquired from the pulmonary apices to the posterior costophrenic angles. 3-dimensional maximum intensity projection (MIP) coronal and sagittal reformats were then acquired through the thorax. For radiation dose reduction, the following was used: automated exposure control, adjustment of mA and/or kV according to patient size. COMPARISON: [facility], CT, CT ANGIO CHEST PE PROTOCOL, 08/24/2019, 16:26. FINDINGS: Image quality: Excellent. Pulmonary arteries: Pulmonary arteries are normal in size, and demonstrate no intraluminal filling defects to suggest central pulmonary embolism. Scattered subsegmental atelectasis and/or scarring. No focal consolidation. No pleural effusions or pneumothorax. Central and peripheral airways are patent. Mediastinum: Heart size is enlarged, without pericardial effusion. No mediastinal or hilar adenopathy. Thoracic aorta is normal in caliber and enhancement. Coronary artery calcifications are present. No suspicious bony lesions. Large hiatal hernia. Ribs and thoracic spine appear intact throughout. Thyroid is grossly unremarkable No axillary or supraclavicular adenopathy. Abdomen: Visualized upper abdominal solid organs appear normal in the early arterial phase of enhancement. IMPRESSION: No evidence of pulmonary embolism. No aortic dissection identified. Large hiatal hernia Scattered subsegmental atelectasis and/or scarring. No focal consolidation. Dictated by: Jace Delaorsa M.D. on 02/10/2020 at 17:17 Approved by: Jace Delarosa M.D. on 02/10/2020 at 17:22
--- NOTE | 2020-02-10 16:30 | PC.NURSE ---
Pt requests solu-medrol. States it has helped me before and I have been on it for a couple weeks. notified.
[2020-02-10] MEDS: ALBUTEROL/IPRATROPIUM 3 ML AMPUL INH (16:34)
[2020-02-10 16:37] LABS: Add Manual Diff / Slide Review NO; Basophils Absolute Auto 0 /uL (0-100); Basophils Percent Auto 0.4 % (0-2); Eosinophils Absolute Auto 100 /uL (0-450); Eosinophils Percent Auto 0.7 % (2-4); Hematocrit 28.6 % (36-46); Hemoglobin 9.2 g/dL (12.0-16.0); Lymphocytes Absolute Auto 2700 /uL (1100-4500); Lymphocytes Percent Auto 22.8 % (25-40); Mean Corpuscular Hemoglobin 25.7 PG (26-34); Mean Corpuscular Volume 80.2 fL (80-100); Monocytes Absolute Auto 900 /uL (0-900); Monocytes Percent Auto 7.9 % (3-14); Neutrophils Absolute Auto 8000 /uL (1500-7000); Neutrophils Percent Auto 68.2 % (50-75); Platelet Count 310 X10^3/uL (150-400); Red Blood Cell Count 3.57 X10^6/uL (4.0-5.2); Red Cell Distribution Width 16.5 % (11.6-14.8); White Blood Cell Count 11.7 X10^3/uL (4.5-11.0)
[2020-02-10] MEDS: methylPREDNISolone 125 MG/2 ML VIAL IV (16:37)
[2020-02-10 16:46] LABS: Alanine Aminotransferase 37 IU/L (<35); Albumin 3.8 g/dL (3.5-5.0); Albumin Globulin Ratio 1.3 (1.0-2.8); Alkaline Phosphatase 76 U/L (38-126); Aspartate Aminotransferase 41 IU/L (14-36); BUN Creatinine Ratio 19.4 (6-22); Bilirubin Total 0.2 mg/dL (0.2-1.3); Blood Urea Nitrogen 14 mg/dL (7-17); Calcium 9.3 mg/dL (8.4-10.2); Carbon Dioxide 31 mmol/L (22-32); Chloride 106 mmol/L (98-107); Creatine Kinase 291 U/L (30-135); Estimated Glomerular Filt Rate > 60.0 mL/min (>60); Globulin 2.9 g/dL (1.7-4.1); Glucose 104 mg/dL (80-110); HEMOLYSIS < 15 (0-50); Potassium 3.7 mmol/L (3.4-5.1); Sodium 137 mmol/L (137-145); Total Protein 6.7 g/dL (6.3-8.2)
[2020-02-10 16:56] LABS: Troponin I < 0.012 ng/mL (0.01-0.034)
[2020-02-10 17:01] LABS: CKMB % Relative Index 2.1 % (1.5-5.0); Creatine Kinase MB 6.25 ng/mL (<2.37)
[2020-02-10 17:07] LABS: NT-proBNP (BNP-Adult 18+) 121 pg/mL (<125)
[2020-02-10 17:42] LABS: Procalcitonin < 0.05 ng/mL (<0.5)
--- NOTE | 2020-02-10 18:19 | CM.SWNOTE ---
CARBON PASTE MIXER OPERATOR Assessment CARBON PASTE MIXER OPERATOR - Hoisting Machine Operator Assessment CARBON PASTE MIXER OPERATOR - Hoisting Machine Operator Assessment Start: 02/10/20 17:59 Freq: Status: Active Protocol: Document 02/10/20 17:59 HALEY (Rec: 02/10/20 18:18 HALEY [id number]) CARBON PASTE MIXER OPERATOR/Hoisting Machine Operator Assessment Time Spent with Patient Start date 02/10/20 Visit Start Time 17:00 End date 02/10/20 Visit End Time 17:55 Total time Care Management spent on 55 patient visit-in minutes Mental Health Screening Include Onset, Duration, Intensity Presenting Problem Patient presents to ED for difficulty breathing and increasing asthma over prior 3 days. Precipitating Event(s) Patient reports volatility in relationship with her daughter , with whom she was very close prior to previous 3 weeks. Patient reports last attempt to speak with her daughter resulted in her daughter calling the police on patient. Patient reports daughter has had cancer for roughly one year and it just caught up with me. Patient reports feeling isolated Patient reports several medication changes in previous weeks. Patient reports she started Sharon at the end of December, discontinued this medication after 3 days, and has not discussed this with her psychiatrist. Patient also reports she started a new medication for asthma previous day. Patient Strengths Patient is knowledgeable about the resources she has and the resources available to her to help her during times of mental health crisis. Current Behavioral Health Provider(s) Mary, counselor, meets Include Facility, Provider, Ph. # with weekly Megha Nielsen psychiatrist Dr. Saldaña, PCP, first appt later this week. Psych. Hx Mental Health and Chemical Patient reports hx of Dependency depression, anxiety, and SI. Patient denies any current substance or ETOH use or abuse. Family Hx of Behavioral Abuse None reported. Psychiatric Hospitalizations (date(s)/ None reported. location) Psychosocial information & Support Patient is a 64 y/o female who Systems lives alone with her dog, who she states is a strong pillar of support for her. Patient was previously very close with her daughter and reports that she spoke with her daughter every night until 3 weeks ago . Patient reports that her daughter is no longer speaking to her, but that some of her grandchildren do communicate with her and that she does have several friends that she feels comfortable talking to. School/Work None reported. Legal Concerns Legal Matters - Outstanding Issues None. Mental Status Orientation (Person/Place/Time) Oriented x3 Stated Mood ok Affect (Congruent with Mood?) slightly dysphoric, stable, congruent with mood. Thought Content - Specify/Describe No obsessions, delusions, or Obsessions, Delusions, Hallucinations hallucinations observed or reported. Thought Processes (Urgcyiv-Evmkfmns-Nppn Circumstantial Pittteqe-Kmglfmdk-Snzfzcygla- Axxeckvkpstasw-Pbvmfgi-Vjtndpravhzo- Thought Blocking) Speech (Uevaij-Ufhi-Rgjzdhf-Rapid-Soft- Normal Loud-Pressured) Motor (Fucmbi-Kkpybmifn-Dzex-Other) Normal Insight (Lqai-Soec-Mujl/Limited) Good Judgement (Undp-Qnza-Wrzi/Limited) Poor Impulse Control (Adequate-Impaired) Adequate during assessment Memory (Ghpzqgohv-Hwqnex-Wxinak, Intact for interview, not Impaired-Intact) formally assessed Concentration (Intact-Impaired) Intact Attention (Intact-Impaired) Intact Behavior (Appropriate-Inappropriate) Appropriate Risk Assessment Suicidal Ideation (Plan) No Homicidal Ideation (Plan) No Comment Patient denies SI/HI. Patient states she does have periods where she does experience SI, but states I couldn't see myself doing that and discussed her coping mechanisms during that time. Intervention Intervention CARBON PASTE MIXER OPERATOR enters room and speaks with patient. Patient discusses volatility in relationship with her daughter and explains that she believes that the stress she experiences from this has contributed to her multiple ED visits during the past month. Patient and CARBON PASTE MIXER OPERATOR discuss this and patient informs CARBON PASTE MIXER OPERATOR she plans to continue discussion with her counselor, with whom she meets weekly. Patient states she came to ED today after speaking on the phone with her health insurance provider and informs CARBON PASTE MIXER OPERATOR that they sent EMS to her home to further investigate her current symptoms. Patient reports that EMS encouraged her to come to ED. Patient explains she is feeling better , is meeting with a new PCP later in week, and states she believes that the new medication she is taking for asthma will be helpful for her . Patient explains that she is familiar with crisis line when she experiences anxiety, and has used this resource previously. Patient reports having several tools that she uses to help her de-escalate during times of acute anxiety. Patient and CARBON PASTE MIXER OPERATOR discuss additional resource needs and patient states she wishes there was a resource that could call and check in on her. CARBON PASTE MIXER OPERATOR explains warm line to patient and offers one-time follow up call for later in week. Patient accepts offer and asks for phone number for warm line to be placed in D/C notes. CARBON PASTE MIXER OPERATOR exits room and informs Dr. Limon of the above and gives Dr. Limon phone number for [facility] and ED CARBON PASTE MIXER OPERATOR in d/ c notes. Plan RA Plan Patient to continue course of care in ED and CARBON PASTE MIXER OPERATOR will complete post d/c f/u call later in week.
== END 2020-02-10 18:41 | disposition home or self-care (01) ==
PROVIDERS: Emergency Provider Emergency Medicine; PCP Student in an Organized Health Care Education/Training Program
DX: J45.909 Unspecified asthma, uncomplicated (principal); R06.02 Shortness of breath; R07.9 Chest pain, unspecified; Z20.828 Contact with and (suspected) exposure to other viral communicable diseases
CPT/HCPCS: 36415; 71275; 80053; 82550; 82553; 83880; 84145; 84484; 85025; 87635; 93005; 94640; 96374; 99284; J2930; Q9967

== ENCOUNTER → 2020-02-23 15:37 | Outpatient (CLI) | payer OTHER, MEDICAID, SELFPAY ==
[2020-01-29 14:30] VITALS: BMI 32.8
--- NOTE | 2020-02-23 15:42 | DI.RAD.S_ITS ---
PROCEDURE: XR CHEST 2V INDICATIONS: lower extremity edema TECHNIQUE: 2 views of the chest were acquired. COMPARISON: [facility], CR, XR CHEST 1V, 01/23/2020, 16:30. FINDINGS: Surgical changes and devices: Left humeral fixation plate is noted. Lungs and pleura: Scattered linear opacities likely atelectasis. No pleural effusions or pneumothorax. Mediastinum: Mediastinal contours are normal. Heart size is normal. Bones and chest wall: No suspicious bony abnormalities. Soft tissues appear unremarkable. IMPRESSION: Scattered atelectasis. Dictated by: Gretchen Painter M.D. on 02/23/2020 at 16:53 Approved by: Gretchen Painter M.D. on 02/23/2020 at 16:53
[2020-02-23 16:33] LABS: Alanine Aminotransferase 33 IU/L (<35); Albumin 3.7 g/dL (3.5-5.0); Albumin Globulin Ratio 1.6 (1.0-2.8); Alkaline Phosphatase 81 U/L (38-126); Aspartate Aminotransferase 38 IU/L (14-36); Blood Urea Nitrogen 18 mg/dL (7-17); Calcium 8.9 mg/dL (8.4-10.2); Carbon Dioxide 31 mmol/L (22-32); Chloride 102 mmol/L (98-107); Estimated Glomerular Filt Rate > 60.0 mL/min (>60); Globulin 2.3 g/dL (1.7-4.1); Glucose 99 mg/dL (80-110); HEMOLYSIS < 15 (0-50); Sodium 134 mmol/L (137-145)
[2020-02-23 16:42] LABS: NT-proBNP (BNP-Adult 18+) 55 pg/mL (<125)
[2020-02-23 16:43] LABS: Bilirubin Total < 0.1 mg/dL (0.2-1.3)
== END ==
PROVIDERS: PCP Family Medicine; Referring Provider Family Medicine; Visit Provider Family Medicine
DX: R60.9 Edema, unspecified (principal); J45.909 Unspecified asthma, uncomplicated
CPT/HCPCS: 36415; 71046; 80053; 83880

== ENCOUNTER 2020-02-24 07:47 | Observation (INO) | payer OTHER, MEDICAID, SELFPAY ==
[2020-02-23 15:55] VITALS: BMI 32.8
[2020-02-24] VITALS (15 sets, daily range): BP systolic 100–142; BP diastolic 53–79; PULSE 82–120; RESP 18–26; TEMP 36.3–36.8; O2SAT 92–97; BMI 39.3
--- NOTE | 2020-02-24 07:57 | DI.RAD.S_ITS ---
PROCEDURE: XR CHEST 1V INDICATIONS: short of breath TECHNIQUE: One view of the chest was acquired. COMPARISON: [facility], CR, XR CHEST 2V, 02/23/2020, 16:55. FINDINGS: Surgical changes and devices: Fusion hardware in lower cervical spine is seen.. Fixation hardware in left proximal humeral shaft is also seen. Lungs and pleura: Lungs are clear. No pleural effusions or pneumothorax. Mediastinum: Mediastinal contours appear normal. Heart size is enlarged. Bones and chest wall: No suspicious bony lesions. Overlying soft tissues appear unremarkable. IMPRESSION: No acute cardiopulmonary pathology Dictated by: Rafat Hall M.D. on 02/24/2020 at 8:16 Approved by: Rafat Hall M.D. on 02/24/2020 at 8:21
--- NOTE | 2020-02-24 08:02 | ED_ITS ---
HPI - SOB/Dyspnea General Chief Complaint: Shortness of Breath/Dyspnea Stated Complaint: difficulty breathing Time Seen by Provider: 02/24/20 07:48 Source: patient and old records reviewed Mode of arrival: Ambulatory Limitations: no limitations History of Present Illness HPI Narrative: Patient is a 64-year-old female with history of asthma and frequent emergency department visits for shortness breath., she was followed up by her primary care provider yesterday presents today with increasing shortness of breath. I have seen her multiple times in the past but she does clearly appear to be in respiratory distress. She has significant lower extremity edema she complains of orthopnea. Her primary care provider instructed her to increase her Lasix of 40 mg to 3 times a day yesterday. She says that she took 2. She complains of her skin being tight and increased weight gain of possibly up to 40 lb over the last 1 month. She used her nebulizer prior to arrival without any relief. She has previously been on methylprednisolone but she says she stopped that a few days ago She denies any fever or cough no chest pain. She has been tested for COVID multiple times and has always been negative. She complains of pain all over her body from the swelling. MD Complaint: shortness of breath Onset (ago): day(s) Relieving factors: rest Exacerbating factors: lying flat, exertion, movement and talking Related Data Home oxygen amount: none Home Medications Medication Instructions Recorded Confirmed garlic oil 2 dose PO DIRECTED 09/20/18 02/24/20 sennosides [senna] 17.2 mg PO BEDTIME PRN 09/20/18 02/24/20 potassium chloride 20 mEq 10 meq PO DAILY PRN 10/29/18 02/24/20 tablet,extended release levalbuterol tartrate 45 2 inhalation INHALATION BID gram 08/26/19 02/24/20 mcg/actuation aerosol inhaler metoclopramide HCl 5 mg PO DAILY PRN 09/23/19 02/24/20 diphenhydramine HCl [Benadryl] 75 mg PO DAILY PRN 10/26/19 02/24/20 ketorolac [Sprix] 15.75 mg INTRANASAL Q6-8H PRN 10/26/19 02/24/20 ketotifen fumarate [Zaditor] 1 drp OPHTHALMIC (EYE) BID 10/26/19 02/24/20 diazepam 5 mg tablet 5 mg PO BID PRN tab 12/12/19 02/24/20 gabapentin 600 mg tablet 600 mg PO TID tab 12/12/19 02/24/20 acetaminophen 500 mg PO Q6H PRN 02/10/20 02/24/20 mirtazapine 7.5 mg PO BEDTIME PRN 02/10/20 02/24/20 omeprazole 40 mg PO BID 02/10/20 02/24/20 oxycodone 5 mg PO QID PRN 02/10/20 02/24/20 furosemide [Lasix] 20 mg PO DAILY PRN 02/24/20 02/24/20 lidocaine 1 applic TOPICAL TID PRN 02/24/20 02/24/20 vortioxetine [Trintellix] 10 mg PO BEDTIME 02/24/20 02/24/20 Previous Rx's Medication Instructions Recorded ondansetron HCl 8 mg tablet 8 mg PO Q12H PRN #20 tab 01/07/19 promethazine 25 mg tablet 25 mg PO Q8H PRN #12 tab 02/11/19 levalbuterol HCl 0.63 mg/3 mL 0.63 mg INHALATION Q8H PRN #90 ml 09/11/19 solution for nebulization methocarbamol 750 mg tablet 750 mg PO TID PRN #90 tab 09/29/19 pramipexole 0.75 mg tablet 0.75 mg PO BEDTIME #90 tab 09/29/19 epinephrine 0.3 mg/0.3 mL 0.3 mg IM ONCE PRN #1 ea 01/01/20 injection, auto-injector budesonide-formoterol HFA 80 2 puff INHALATION BID #10.2 gram 01/28/20 mcg-4.5 mcg/actuation aerosol inhaler budesonide 32 mcg/actuation nasal 1 spray INTRANASAL DAILY #8.43 ml 02/23/20 spray ibuprofen 600 mg tablet 600 mg PO Q8H PRN #90 tab 02/23/20 montelukast 10 mg tablet 10 mg PO BEDTIME PRN #90 tab 02/23/20 rizatriptan 10 mg tablet 10 mg PO .COMPLEX PRN #12 tab 02/23/20 sumatriptan succinate 100 mg tablet 100 mg PO ONCE PRN #14 tab 02/23/20 Allergies Allergy/AdvReac Type Severity Reaction Status Date / Time latex Allergy Severe Rash Verified 02/23/20 14:46 morphine [MORPHINE] Allergy Severe Anaphylaxis Verified 02/23/20 14:46 Penicillins [PENICILLINS] Allergy Severe Anaphylaxis Verified 02/23/20 14:46 Sulfa (Sulfonamide Allergy Severe RASH Verified 02/23/20 14:46 Antibiotics) [SULFA (SULFONAMIDE ANTIBIOTICS)] azithromycin Allergy Intermediate Rash Verified 02/23/20 14:46 [From ZITHROMAX Z-MARILYN] cefuroxime [From Ceftin] Allergy Intermediate Rash Verified 02/23/20 14:46 sulfamethoxazole Allergy Intermediate RASH Verified 02/23/20 14:46 [From SEPTRA] trimethoprim [From SEPTRA] Allergy Intermediate RASH Verified 02/23/20 14:46 ciprofloxacin [From Cipro] Allergy Pt does Verified 02/23/20 14:46 not remember reaction Corticosteroids Allergy Swelling Verified 02/24/20 08:05 (Glucocorticoids) of Lip/Tongue/Throat cephalexin [From Keflex] AdvReac Severe Fever, Verified 02/23/20 14:46 Asthma, Tachycardia prednisone AdvReac Severe nausea and Verified 02/23/20 14:46 feels very weak, and axious verapamil AdvReac Intermediate Asthma Verified 02/23/20 14:46 symptoms zonisamide AdvReac Intermediate Asthma Verified 02/23/20 14:46 symptoms Review of Systems Review of Systems ROS Unobtainable: All systems reviewed & are unremarkable except as noted in HPI and below Constitutional Constitutional: Denies chills, Denies fever(s), Reports lethargy, Denies weakness and Reports weight gain ENT Ears, Nose, Mouth, and Throat: Denies change in voice, Denies neck pain and Denies sore throat Cardiovascular Cardiovascular: Denies chest pain, Denies irregular heart rhythm, Denies lightheadedness, Denies palpitations, Reports dyspnea, Reports dyspnea on exertion and Reports orthopnea Respiratory Respiratory: Denies excessive phlegm production, Denies pain on inspiration, Reports dyspnea, Reports dyspnea on exertion and Denies stridor Gastrointestinal Gastrointestinal: Denies abdominal pain, Denies change in bowel habits, Denies diarrhea, Denies nausea and Denies vomiting Musculoskeletal Musculoskeletal: Denies muscle cramps, Denies muscle weakness and Denies neck pain Integumentary/Breasts Skin/Breast: Denies pruritus, Denies erythema, Denies rash and Denies wounds Neurologic Neurologic: Denies weakness Endocrine Endocrine: Denies palpitations Patient History Medical History Anemia Anxiety Asthma Chronic back pain Chronic cough Depression Femur fracture, left Fibromyalgia Fractures GERD (gastroesophageal reflux disease) Hiatal hernia Recurrent sinusitis Surgical History Anesthesia History of eye surgery (~1973) History of foot surgery History of hysterectomy (~1979) History of shoulder surgery (~2011) History of tonsillectomy (~1975) Hx of bilateral cataract extraction Family History Mother Heart disease Social History marital status: number of children: 1 household members: none lives independently: Yes caregiver/support person: Yes (3 afternoons per week) pets and animals: Yes occupational status: disabled Smoking Status: Never smoker alcohol intake: never substance use type: does not use Smoking Status: Never smoker alcohol intake frequency: holidays/special occasions only Substance Use Type: does not use Exam Initial Vital Signs Initial Vital Signs: Vital Signs Temperature 97.9 F 02/24/20 07:50 Pulse Rate 120 H 02/24/20 07:50 Respiratory Rate 26 H 02/24/20 07:50 Blood Pressure 142/79 H 02/24/20 07:50 Pulse Oximetry 96 02/24/20 07:50 GENERAL: Patient appears in moderate respiratory distress and in [no acute] distress. HEENT: Head atraumatic,EOMI, pupils reactive, face symmetric, [moist] mucous membranes CARDIOVASCULAR: Regular rate and rhythm without murmurs, rubs or gallops. RESPIRATORY: Speaks in 3-5 word sentences obvious conversational dyspnea no wheezes no crackles your bilaterally ABDOMEN: Soft, nontender. Normoactive bowel sounds all 4 quadrants. No guarding or rebound. EXTREMITIES: Normal range of motion, no clubbing. +2 pitting edema bilaterally Neurovascularly intact NEUROLOGICAL: Alert and oriented x4.Normal gait and speech. SKIN: Warm, dry, no laceration, no petechiae, no rashes or lesions. Course Orders Ordered: ED Orders 02/24/20 07:55 EKG-12 Lead Stat 02/24/20 07:56 Consult to Respiratory Therapy Evaluate & Treat 02/24/20 07:57 XR chest 1V Stat 02/24/20 08:05 Complete Blood Count AUTO DIFF Stat Comprehensive Metabolic Panel Stat Lactate (Lactic Acid) Stat NT-proBNP (BNP-Adult 18+) Stat Partial Thromboplastin Time Stat Procalcitonin Stat Prothrombin Time INR Stat Troponin & CK Cardiac Panel Stat 02/24/20 08:10 COVID19 Stat 02/24/20 09:15 Blood Culture Stat Acetaminophen (Acetaminophen 325 Mg Tablet) 650 mg PO Q6HR PRN PRN Reason: Fever/Mild Pain (1-3) Magnesium Hydroxide (Magnesium Hydroxide 30 Ml Udc) 30 ml PO DAILY PRN PRN Reason: Constipation Stored In Pharmacy 0 each PO . ZHANG Ondansetron HCl (Ondansetron 4 Mg/2 Ml Inj) 4 mg IV Q8HR PRN PRN Reason: Nausea And Vomiting Sumatriptan Succinate (Sumatriptan 25 Mg Tablet) 100 mg PO NOW PRN PRN Reason: MIGRAINE HEADACHE Discontinued Medications Furosemide (Furosemide 40 Mg/4 Ml Vial) 40 mg IV NOW ONE Stop: 02/24/20 07:57 Last Admin: 02/24/20 08:08 Dose: 40 mg Documented by: KIARRA Vital Signs Vital signs: Vital Signs - 8 hr 02/24/20 07:50 02/24/20 08:00 02/24/20 08:01 Temperature 97.9 F Pulse Rate 120 H 105 H 101 H Respiratory Rate 26 H Blood Pressure 142/79 H 131/58 L Pulse Oximetry 96 97 97 MDM - SOB/Dyspnea Lab Data Attestation: I reviewed the patient's lab results. Result diagrams: 02/24/20 08:05 02/24/20 08:05 Labs: Lab Results 02/24/20 02/24/20 02/24/20 Range/Units 08:05 08:05 08:05 WBC 9.2 (4.5-11.0) X10^3/uL RBC 3.23 L (4.0-5.2) X10^6/uL Hgb 8.1 L (12.0-16.0) g/dL Hct 25.1 L (36-46) % MCV 77.7 L (80-100) fL MCH 25.0 L (26-34) PG MCHC 32.2 (30-36) % RDW 16.6 H (11.6-14.8) % Plt Count 347 (150-400) X10^3/uL Neut % (Auto) 62.2 (50-75) % Lymph % (Auto) 25.7 (25-40) % [place] % (Auto) 8.2 (3-14) % Eos % (Auto) 2.7 (2-4) % Baso % (Auto) 1.2 (0-2) % Neut # (Auto) 5700 (3245-6445) /uL Lymph # (Auto) 2400 (9546-0238) /uL [place] # (Auto) 800 (0-900) /uL Eos # (Auto) 200 (0-450) /uL Baso # (Auto) 100 (0-100) /uL PT 10.9 (10.1-12.7) SECONDS INR 1.0 (0.9-1.3) APTT 28 (26.4-36.2) SECONDS Sodium 134 L (137-145) mmol/L Potassium 3.5 (3.4-5.1) mmol/L Chloride 103 (98-107) mmol/L Carbon Dioxide 27 (22-32) mmol/L BUN 21 H (7-17) mg/dL Creatinine 0.83 (0.52-1.04) mg/dL Estimated GFR > 60.0 (>60) mL/min BUN/Creatinine Ratio 25.3 H (6-22) Glucose 168 H (80-110) mg/dL Lactate (0.7-2.1) mmol/L Calcium 8.8 (8.4-10.2) mg/dL Total Bilirubin 0.1 L (0.2-1.3) mg/dL AST 36 (14-36) IU/L ALT 29 (<35) IU/L Alkaline Phosphatase 78 (38-126) U/L Total Creatine Kinase 237 H (30-135) U/L CK-MB (CK-2) 2.85 H (<2.37) ng/mL CK-MB (CK-2) Rel Index 1.2 L (1.5-5.0) % Troponin I < 0.012 (0.01-0.034) ng/mL NT-Pro-B Natriuret Pep 74 (<125) pg/mL Total Protein 6.0 L (6.3-8.2) g/dL Albumin 3.5 (3.5-5.0) g/dL Globulin 2.5 (1.7-4.1) g/dL Albumin/Globulin Ratio 1.4 (1.0-2.8) Procalcitonin (<0.5) ng/mL SARS-CoV-2 (PCR) (Negative) 02/24/20 02/24/20 02/24/20 Range/Units 08:05 08:05 08:10 WBC (4.5-11.0) X10^3/uL RBC (4.0-5.2) X10^6/uL Hgb (12.0-16.0) g/dL Hct (36-46) % MCV (80-100) fL MCH (26-34) PG MCHC (30-36) % RDW (11.6-14.8) % Plt Count (150-400) X10^3/uL Neut % (Auto) (50-75) % Lymph % (Auto) (25-40) % [place] % (Auto) (3-14) % Eos % (Auto) (2-4) % Baso % (Auto) (0-2) % Neut # (Auto) (9570-0980) /uL Lymph # (Auto) (6283-1767) /uL [place] # (Auto) (0-900) /uL Eos # (Auto) (0-450) /uL Baso # (Auto) (0-100) /uL PT (10.1-12.7) SECONDS INR (0.9-1.3) APTT (26.4-36.2) SECONDS Sodium (137-145) mmol/L Potassium (3.4-5.1) mmol/L Chloride (98-107) mmol/L Carbon Dioxide (22-32) mmol/L BUN (7-17) mg/dL Creatinine (0.52-1.04) mg/dL Estimated GFR (>60) mL/min BUN/Creatinine Ratio (6-22) Glucose (80-110) mg/dL Lactate 2.2 H (0.7-2.1) mmol/L Calcium (8.4-10.2) mg/dL Total Bilirubin (0.2-1.3) mg/dL AST (14-36) IU/L ALT (<35) IU/L Alkaline Phosphatase (38-126) U/L Total Creatine Kinase (30-135) U/L CK-MB (CK-2) (<2.37) ng/mL CK-MB (CK-2) Rel Index (1.5-5.0) % Troponin I (0.01-0.034) ng/mL NT-Pro-B Natriuret Pep (<125) pg/mL Total Protein (6.3-8.2) g/dL Albumin (3.5-5.0) g/dL Globulin (1.7-4.1) g/dL Albumin/Globulin Ratio (1.0-2.8) Procalcitonin < 0.05 (<0.5) ng/mL SARS-CoV-2 (PCR) Negative (Negative) Urine Dip Bedside Urine Glucose Negative Bedside Urine Bilirubin - Negative Bedside Urine Ketone - Negative Urine Specific [place] 1.015 Bedside Urine Occult Blood - Negative Bedside Urine pH 6.0 Bedside Urine Protein - Negative Bedside Urine Urobilinogen - Negative Bedside Urine Nitrite - Negative Bedside Urine Leukocytes - Negative Esterase Imaging Data Chest x-ray: Radiologist's Impression: PROCEDURE: XR CHEST 1V INDICATIONS: short of breath TECHNIQUE: One view of the chest was acquired. COMPARISON: [facility], , XR CHEST 2V, 02/23/2020, 16:55. FINDINGS: Surgical changes and devices: Fusion hardware in lower cervical spine is seen.. Fixation hardware in left proximal humeral shaft is also seen. Lungs and pleura: Lungs are clear. No pleural effusions or pneumothorax. Mediastinum: Mediastinal contours appear normal. Heart size is enlarged. Bones and chest wall: No suspicious bony lesions. Overlying soft tissues appear unremarkable. IMPRESSION: No acute cardiopulmonary pathology Dictated by: Rafat Hall M.D. on 02/24/2020 at 8:16 ECG Data Attestation: I personally reviewed and interpreted this ECG as follows: Prior ECG tracings: available for review Interpretation: Normal sinus rhythm rate 101 p.r. interval 142 QRS 1 wound [address] changes similar to previous EKG MDM Narrative Medical decision making narrative: Patient is better and has urinated after 40 of Lasix. However she has had frequent ER visits for shortness of breath. BNP is not elevated, her x-ray is clear and she is not requiring oxygen but she has obvious fluid overload with pitting edema. At this time she likely needs to come in for diuresis and echocardiogram I spoke with , who accepts for observation Discharge Plan Departure Patient Disposition: Admitted as Observation Clinical Impression: Congestive heart failure Admit Date/Time: 02/24/20 10:02 Admit Provider: Jadiel Encarnacion
[2020-02-24] MEDS: FUROSEMIDE 40 MG/4 ML VIAL IV ×2 (08:08→22:52)
[2020-02-24 08:32] LABS: Add Manual Diff / Slide Review NO; Basophils Absolute Auto 100 /uL (0-100); Basophils Percent Auto 1.2 % (0-2); Eosinophils Absolute Auto 200 /uL (0-450); Eosinophils Percent Auto 2.7 % (2-4); Hematocrit 25.1 % (36-46); Hemoglobin 8.1 g/dL (12.0-16.0); Lymphocytes Absolute Auto 2400 /uL (1100-4500); Lymphocytes Percent Auto 25.7 % (25-40); Mean Corpuscular HGB Conc 32.2 % (30-36); Mean Corpuscular Volume 77.7 fL (80-100); Monocytes Absolute Auto 800 /uL (0-900); Monocytes Percent Auto 8.2 % (3-14); Neutrophils Absolute Auto 5700 /uL (1500-7000); Neutrophils Percent Auto 62.2 % (50-75); Platelet Count 347 X10^3/uL (150-400); Red Blood Cell Count 3.23 X10^6/uL (4.0-5.2); Red Cell Distribution Width 16.6 % (11.6-14.8); White Blood Cell Count 9.2 X10^3/uL (4.5-11.0)
[2020-02-24 08:34] LABS: Prothrombin Time 10.9 SECONDS (10.1-12.7)
[2020-02-24 08:36] LABS: PTT Partial Thromboplastin Tim 28 SECONDS (26.4-36.2)
[2020-02-24 08:40] LABS: Alanine Aminotransferase 29 IU/L (<35); Albumin 3.5 g/dL (3.5-5.0); Albumin Globulin Ratio 1.4 (1.0-2.8); Alkaline Phosphatase 78 U/L (38-126); Aspartate Aminotransferase 36 IU/L (14-36); BUN Creatinine Ratio 25.3 (6-22); Bilirubin Total 0.1 mg/dL (0.2-1.3); Blood Urea Nitrogen 21 mg/dL (7-17); Calcium 8.8 mg/dL (8.4-10.2); Carbon Dioxide 27 mmol/L (22-32); Chloride 103 mmol/L (98-107); Creatine Kinase 237 U/L (30-135); Estimated Glomerular Filt Rate > 60.0 mL/min (>60); Globulin 2.5 g/dL (1.7-4.1); Glucose 168 mg/dL (80-110); HEMOLYSIS < 15 (0-50); Lactate (Lactic Acid) 2.2 mmol/L (0.7-2.1); Potassium 3.5 mmol/L (3.4-5.1); Sodium 134 mmol/L (137-145)
[2020-02-24 08:47] LABS: COVID19 -Nasal RAPID Negative (Negative)
--- NOTE | 2020-02-24 08:49 | PC.NURSE ---
pt states she has been short of breath since sunday, last night she had pizza and woke up feeling more short of breath.
[2020-02-24 08:51] LABS: NT-proBNP (BNP-Adult 18+) 74 pg/mL (<125); Troponin I < 0.012 ng/mL (0.01-0.034)
[2020-02-24 08:53] LABS: Procalcitonin < 0.05 ng/mL (<0.5)
[2020-02-24 08:55] LABS: CKMB % Relative Index 1.2 % (1.5-5.0); Creatine Kinase MB 2.85 ng/mL (<2.37)
[2020-02-24 10:24] LABS: Reflexed Lactate in 2 Hours Y
--- NOTE | 2020-02-24 10:59 | DI.ECHO.S_ITS ---
[place] +---------+ [facility] +---------+ : : [address] : : : : [id number] : : : : Phone: [phone]+ Echocardiogram Report + + :Name: YADIRA HAN Study Date: 02/24/2020 Height: 63 in : :[facility] Weight: 222 lb : : Gender: Female BSA: 2.0 m2 : :: 1955 Age: 64 yrs BP: 103/54 mmHg: :Reason For Study: EDEMA : :Ordering Physician: TARYN, : :ILSA Performed By: Honey Topete : :Referring: ILSA CENTENO : + + Interpretation Summary The left ventricle is normal in size. The ejection fraction is estimated to be 65-70%. The right ventricle is normal in size and function. There is mild to moderate tricuspid regurgitation. Compared to the prior echo exam, there has been an increase in TR severity. The right ventricular systolic pressure is estimated to be at least 49 mmHg based on an estimated right atrial pressure of 3 mm Hg. Compared to the prior echo exam, there has been an increase in the severity of pulmonary hypertension. Procedure: A two-dimensional transthoracic echocardiogram with color flow and Doppler was performed. The study quality was technically adequate. Comparison is made with the echocardiogram of . The heart rate ranged between 81-97 bpm during the study. The patient was in normal sinus rhythm during the exam. Left Ventricle: The left ventricle is normal in size. Proximal septal thickening is noted. There is no echo evidence for significant left ventricular outflow tract obstruction. There is no thrombus. A false chord is noted (normal variant). The ejection fraction is estimated to be 65-70%. There are no focal wall motion abnormalities. MV E/A: 0.89 Med Peak E' Vic: 6.9 cm/sec E/E' med: 14.7. Right Ventricle: The right ventricle is normal in size and function. Atria: The left atrium is mildly dilated. There has been no significant change since the previous study. The right atrium is mildly dilated. There is no Doppler evidence for an interatrial shunt. Mitral Valve: The mitral valve is normal in structure and function. There is mild mitral regurgitation. Aortic Valve: The aortic valve is trileaflet. The aortic valve opens well. There is no aortic valve stenosis. No aortic regurgitation is present. Tricuspid Valve: The tricuspid valve is normal. There is mild to moderate tricuspid regurgitation. The right ventricular systolic pressure is estimated to be at least 49 mmHg based on an estimated right atrial pressure of 3 mm Hg. Compared to the prior echo exam, there has been an increase in TR severity. Compared to the prior echo exam, there has been an increase in the severity of pulmonary hypertension. Pulmonic Valve: The pulmonic valve leaflets are thin and pliable; valve motion is normal. There is trace pulmonic regurgitation. Great Vessels: The aortic root is normal size. The dimensions of the ascending aorta are normal. The IVC is of normal diameter and collapses greater than 50% with a sniff. This suggests a low right atrial pressure of 3 mm Hg. Pericardium/ Pleura There is no pericardial effusion. There is an anterior echo-free space consistent with a fat pad. There is no pleural effusion. MMode/2D Measurements & Calculations LVIDd: 4.8 cm LVOT diam: 2.0 cm LVIDs: 3.1 cm Ao root diam: 3.1 cm FS: 34.8 % asc Aorta Diam: 3.3 cm EPSS: 0.54 cm Ao Arch Diam (Prox Trans): 3.1 cm IVSd: 1.3 cm LVPWd: 0.93 cm LV daniels. diameter/BSA (cm/m^2): 2.4 LV sys. diameter/BSA (cm/m^2): 1.5 LA A2 area: 18.9 cm2 RA long axis: 5.7 cm LA A4 area: 27.1 cm2 RA area: 22.8 cm2 LA length (vol): 5.8 cm RA vol: 77.3 ml LA vol: 75.5 ml RA : 38.2 ml/m2 LA vol index: 37.4 ml/m2 IVC diam: 1.5 cm RVD1 (basal): 4.0 cm TAPSE: 2.2 cm Doppler Measurements & Calculations Ao V2 max: 178.3 cm/sec LVOT Max Vic: 126.2 cm/sec Ao V2 mean: 114.9 cm/sec LV V1 max P.4 mmHg Ao max P.7 mmHg LV V1 VTI: 24.1 cm Ao mean P.3 mmHg JEREMIE(I,D): 2.3 cm2 Ao V2 VTI: 31.2 cm JEREMIE(V,D): 2.1 cm2 sev ratio: 0.77 JEREMIE indexed to BSA (cm^2/m^2): 1.2 MV E max vic: 100.6 cm/sec TR max vic: 337.8 cm/sec MV A max vic: 113.3 cm/sec TR max P.6 mmHg MV E/A: 0.89 PA V2 max: 85.9 cm/sec Med Peak E' Vic: 6.9 cm/sec PA V2 mean: 54.0 cm/sec E/E' med: 14.7 PA mean P.4 mmHg Lat Peak E' Vic: 9.7 cm/sec PA pr(Accel): 34.5 mmHg E/E' lat: 10.3 E/e' average: 12.5 MV dec time: 0.17 sec SV(LVOT): 72.9 ml Reading Physician:01:23 PM
[2020-02-24 11:13] LABS: Lactate 2HR (Lactic Acid Rflx) 0.7 mmol/L (0.7-2.1)
[2020-02-24] MEDS: SUMAtriptan 25 MG TABLET 100 MG PO (12:41)
[2020-02-24] MEDS: OXYCODONE IR 5 MG TABLET PO ×3 (13:56→23:44)
[2020-02-24] MEDS: ALBUTEROL/IPRATROPIUM 3 ML AMPUL INH ×3 (14:40→21:34)
[2020-02-24] MEDS: diazePAM 5 MG TABLET PO ×2 (14:45→20:17)
[2020-02-24] MEDS: GABAPENTIN 600 MG TABLET PO ×2 (14:45→20:05)
[2020-02-24] MEDS: POTASSIUM CHLORIDE 20 MEQ TAB PO ×2 (16:28→18:24)
[2020-02-24] MEDS: FUROSEMIDE 20 MG/2 ML VIAL IV (16:37)
[2020-02-24] MEDS: ACETAMINOPHEN 325 MG TABLET 650 MG PO (16:45)
--- NOTE | 2020-02-24 17:10 | P.HP_ITS ---
History of Present Illness History of Present Illness Date Patient Seen: 02/24/20 Time Patient Seen: 16:00 Chief complaint: difficulty breathing Narrative: Patient is a 64-year-old female with history of chronic asthma, migraine disorder, fibromyalgia, anxiety and depression presented to emergency department with complaints worsening shortness of breath and edema. This appears to be her 5th ER visit since beginning of January. She feels her asthma is not adequately controlled. She sees Dr. Healy at [facility] for pulmonology. She has been compliant with her inhalers and nebulizer treatments but feels she is not getting enough relief. She has chronic cough and wheezing. She states she was on methylprednisolone for a month and stopped it about 10 d ays ago without tapering. She has recently noticed severe edema in her extremities which is not been a problem before. She states she was treated recently for pneumonia as an outpatient. Her chest x-ray from today's ER visit does not show pneumonia or other lung abnormalities. She also had a chest CTA on February 09 which did not show evidence of pulmonary embolism. She states she has not been able to walk her dog recently because she gets out of breath. She is also out of breath at rest. No chest pains. She had an echo in October last year which was unremarkable. Cardiac enzymes have been normal. ER physician recommended admission to observation due to patient's ongoing symptoms requiring frequent ER visits. On ER evaluation, her vitals were normal with pulse ox ranging from 93-96% on room air. Labs show normal CBC, procalcitonin, troponin. Labs are notable for significant anemia with hemoglobin of 8.1. On further review she has evidence of anemia developing since last fall. On October 13, 2019 her hemoglobin was normal at 12.3, in October it was 10.7, and it has subsequently gradually drifted down. Patient has not noted melena or rectal bleed. She does take ib uprofen. She had EGD done by Dr. Clifford on 01/29/2020 for evaluation large hiatal hernia. There were no other findings. Patient does feel the hiatal hernia pushes up into her chest and Effexor breathing. Patient History Medical History Anemia Anxiety Asthma Chronic back pain Chronic cough Depression Femur fracture, left Fibromyalgia Fractures GERD (gastroesophageal reflux disease) Hiatal hernia Recurrent sinusitis Surgical History Anesthesia History of eye surgery (~1973) History of foot surgery History of hysterectomy (~1979) History of shoulder surgery (~2011) History of tonsillectomy (~1975) Hx of bilateral cataract extraction Family & Social History Family History Mother Heart disease Social History: household members none Prior Living Arrangements Apartment/Condo lives independently Yes caregiver/support person Yes: 3 afternoons per week Safety & Behavioral: Feels Safe in Current Yes Environment Been Physically Hurt or No Threatened By a Person Suicidal Ideation Description None Suicide Plan Description No Plan Tobacco & Substance use: Smoking Status Never smoker alcohol intake never alcohol intake frequency holiday/special occasion Substance Use Type does not use,other Meds Home Medications and Allergies Home Medications Medication Instructions Recorded Confirmed Type garlic oil 2 dose PO DIRECTED 09/20/18 02/24/20 History sennosides [senna] 17.2 mg PO BEDTIME PRN 09/20/18 02/24/20 History potassium chloride 20 mEq 10 meq PO DAILY PRN 10/29/18 02/24/20 History tablet,extended release ondansetron HCl 8 mg tablet 8 mg PO Q12H PRN #20 tab 01/07/19 02/24/20 Rx promethazine 25 mg tablet 25 mg PO Q8H PRN #12 tab 02/11/19 02/24/20 Rx levalbuterol tartrate 45 2 inhalation INHALATION BID gram 08/26/19 02/24/20 History mcg/actuation aerosol inhaler levalbuterol HCl 0.63 mg/3 mL 0.63 mg INHALATION Q8H PRN #90 ml 09/11/19 02/24/20 Rx solution for nebulization metoclopramide HCl 5 mg PO DAILY PRN 09/23/19 02/24/20 History methocarbamol 750 mg tablet 750 mg PO TID PRN #90 tab 09/29/19 02/24/20 Rx pramipexole 0.75 mg tablet 0.75 mg PO BEDTIME #90 tab 09/29/19 02/24/20 Rx diphenhydramine HCl [Benadryl] 75 mg PO DAILY PRN 10/26/19 02/24/20 History ketorolac [Sprix] 15.75 mg INTRANASAL Q6-8H PRN 10/26/19 02/24/20 History ketotifen fumarate [Zaditor] 1 drp OPHTHALMIC (EYE) BID 10/26/19 02/24/20 History diazepam 5 mg tablet 5 mg PO BID PRN tab 12/12/19 02/24/20 History gabapentin 600 mg tablet 600 mg PO TID tab 12/12/19 02/24/20 History epinephrine 0.3 mg/0.3 mL 0.3 mg IM ONCE PRN #1 ea 01/01/20 02/24/20 Rx injection, auto-injector budesonide-formoterol HFA 80 2 puff INHALATION BID #10.2 gram 01/28/20 02/24/20 Rx mcg-4.5 mcg/actuation aerosol inhaler acetaminophen 500 mg PO Q6H PRN 02/10/20 02/24/20 History mirtazapine 7.5 mg PO BEDTIME PRN 02/10/20 02/24/20 History omeprazole 40 mg PO BID 02/10/20 02/24/20 History oxycodone 5 mg PO QID PRN 02/10/20 02/24/20 History budesonide 32 mcg/actuation nasal 1 spray INTRANASAL DAILY #8.43 ml 02/23/20 02/24/20 Rx spray ibuprofen 600 mg tablet 600 mg PO Q8H PRN #90 tab 02/23/20 02/24/20 Rx montelukast 10 mg tablet 10 mg PO BEDTIME PRN #90 tab 02/23/20 02/24/20 Rx rizatriptan 10 mg tablet 10 mg PO .COMPLEX PRN #12 tab 02/23/20 02/24/20 Rx sumatriptan succinate 100 mg tablet 100 mg PO ONCE PRN #14 tab 02/23/20 02/24/20 Rx furosemide [Lasix] 20 mg PO DAILY PRN 02/24/20 02/24/20 History lidocaine 1 applic TOPICAL TID PRN 02/24/20 02/24/20 History vortioxetine [Trintellix] 10 mg PO BEDTIME 02/24/20 02/24/20 History Allergies Allergy/AdvReac Type Severity Reaction Status Date / Time latex Allergy Severe Rash Verified 02/23/20 14:46 morphine [MORPHINE] Allergy Severe Anaphylaxis Verified 02/23/20 14:46 Penicillins [PENICILLINS] Allergy Severe Anaphylaxis Verified 02/23/20 14:46 Sulfa (Sulfonamide Allergy Severe RASH Verified 02/23/20 14:46 Antibiotics) [SULFA (SULFONAMIDE ANTIBIOTICS)] azithromycin Allergy Intermediate Rash Verified 02/23/20 14:46 [From ZITHROMAX Z-MARILYN] cefuroxime [From Ceftin] Allergy Intermediate Rash Verified 02/23/20 14:46 sulfamethoxazole Allergy Intermediate RASH Verified 02/23/20 14:46 [From SEPTRA] trimethoprim [From SEPTRA] Allergy Intermediate RASH Verified 02/23/20 14:46 ciprofloxacin [From Cipro] Allergy Pt does Verified 02/23/20 14:46 not remember reaction Corticosteroids Allergy Swelling Verified 02/24/20 08:05 (Glucocorticoids) of Lip/Tongue/Throat cephalexin [From Keflex] AdvReac Severe Fever, Verified 02/23/20 14:46 Asthma, Tachycardia prednisone AdvReac Severe nausea and Verified 02/23/20 14:46 feels very weak, and axious verapamil AdvReac Intermediate Asthma Verified 02/23/20 14:46 symptoms zonisamide AdvReac Intermediate Asthma Verified 02/23/20 14:46 symptoms Review of Systems Review of Systems Narrative: headaches, joint pains ROS: Yes All systems reviewed with the patient and are negative except as otherwise documented Exam Vital Signs (past 8 hours): - 02/24/20 10:05 02/24/20 10:44 02/24/20 11:04 Temperature 98 F Pulse Rate 86 86 Respiratory Rate 24 19 Blood Pressure 103/54 L 112/75 Pulse Oximetry 95 93 94 02/24/20 11:05 02/24/20 14:35 02/24/20 15:30 Temperature 98 F Pulse Rate 86 95 H Respiratory Rate 19 24 Blood Pressure 112/75 Pulse Oximetry 94 96 92 02/24/20 15:35 Temperature 98.3 F Pulse Rate 90 Respiratory Rate 18 Blood Pressure 125/72 Pulse Oximetry 93 Oxygen Delivery Method Room Air Oxygen Flow Rate 0 Narrative Exam Narrative: General: She is an alert female who is fully cooperative HEENT: Pupils equal, anicteric, oropharynx unremarkable Neck: Supple without lymphadenopathy Lungs: Breathing nonlabored, able to talk full sentences without stopping, equal bilateral lung excursion, clear to auscultation without crackles or wheeze Heart: Normal S1 and S2, regular rate and rhythm, no murmur Abdomen: Soft, nontender, no HSM Extremities: Mainly puffy ankles and moderate edema are noted in the lower legs Skin: Warm and dry, no acute rash Objective Labs Result Diagrams: 02/24/20 08:05 02/24/20 08:05 Labs: Laboratory Results - last 24 hr 02/24/20 02/24/20 02/24/20 08:05 08:05 08:05 WBC 9.2 RBC 3.23 L Hgb 8.1 L Hct 25.1 L MCV 77.7 L MCH 25.0 L MCHC 32.2 RDW 16.6 H Plt Count 347 Neut % (Auto) 62.2 Lymph % (Auto) 25.7 [place] % (Auto) 8.2 Eos % (Auto) 2.7 Baso % (Auto) 1.2 Neut # (Auto) 5700 Lymph # (Auto) 2400 [place] # (Auto) 800 Eos # (Auto) 200 Baso # (Auto) 100 PT 10.9 INR 1.0 APTT 28 Sodium 134 L Potassium 3.5 Chloride 103 Carbon Dioxide 27 BUN 21 H Creatinine 0.83 Estimated GFR > 60.0 BUN/Creatinine Ratio 25.3 H Glucose 168 H Lactate Calcium 8.8 Total Bilirubin 0.1 L AST 36 ALT 29 Alkaline Phosphatase 78 Total Creatine Kinase 237 H CK-MB (CK-2) 2.85 H CK-MB (CK-2) Rel Index 1.2 L Troponin I < 0.012 NT-Pro-B Natriuret Pep 74 Total Protein 6.0 L Albumin 3.5 Globulin 2.5 Albumin/Globulin Ratio 1.4 Procalcitonin SARS-CoV-2 (PCR) 02/24/20 02/24/20 02/24/20 08:05 08:05 08:10 WBC RBC Hgb Hct MCV MCH MCHC RDW Plt Count Neut % (Auto) Lymph % (Auto) [place] % (Auto) Eos % (Auto) Baso % (Auto) Neut # (Auto) Lymph # (Auto) [place] # (Auto) Eos # (Auto) Baso # (Auto) PT INR APTT Sodium Potassium Chloride Carbon Dioxide BUN Creatinine Estimated GFR BUN/Creatinine Ratio Glucose Lactate 2.2 H Calcium Total Bilirubin AST ALT Alkaline Phosphatase Total Creatine Kinase CK-MB (CK-2) CK-MB (CK-2) Rel Index Troponin I NT-Pro-B Natriuret Pep Total Protein Albumin Globulin Albumin/Globulin Ratio Procalcitonin < 0.05 SARS-CoV-2 (PCR) Negative 02/24/20 10:55 WBC RBC Hgb Hct MCV MCH MCHC RDW Plt Count Neut % (Auto) Lymph % (Auto) [place] % (Auto) Eos % (Auto) Baso % (Auto) Neut # (Auto) Lymph # (Auto) [place] # (Auto) Eos # (Auto) Baso # (Auto) PT INR APTT Sodium Potassium Chloride Carbon Dioxide BUN Creatinine Estimated GFR BUN/Creatinine Ratio Glucose Lactate 0.7 Calcium Total Bilirubin AST ALT Alkaline Phosphatase Total Creatine Kinase CK-MB (CK-2) CK-MB (CK-2) Rel Index Troponin I NT-Pro-B Natriuret Pep Total Protein Albumin Globulin Albumin/Globulin Ratio Procalcitonin SARS-CoV-2 (PCR) Assessment & Plan Assessment & Plan narrative: This is a 64-year-old female with chronic asthma, recent steroid use, migraines, fibromyalgia, anxiety and depression presents because of continued shortness of breath and recent swelling of extremities. 1. Dyspnea, subacute -etiology somewhat hard to sort out but may be combination of factors. I do not hear wheezing on exam but certainly she can have it problems intermittently with her asthma. She has large hiatal hernia which may be contributing to breathing difficulties. She has recent fluid retention from taking oral steroids for a month. She had recent CTA ruling out pulmonary embolism. -repeat echo shows normal LVEF, low right atrial pressures, mild or moderate TR, mild to moderate pulmonary hypertension -admit for diuresis, RT consult and continue patient's inhaler and nebulizer treatments -I do not think putting her back on steroids is at this time indicated based on side effects of edema and not clear her asthma was steroid responsive 2. Edema, acute -she has generalized edema most noticeable in lower extremities from recent oral steroids, patient has Rx for as needed Lasix at home and has not taken it regularly -Lasix 40 mg IV x3 doses between today and tomorrow, provide oral potassium replacement, recheck lytes in a.m. 3. Chronic blood-loss anemia -patient has developed significant microcytic anemia since September of last year, she had EGD on January [address] Clifford which showed a large hiatal hernia but did not show any obvious cause of bleed, she is unsure of her last colonoscopy but believes she had it within the past 5 years, it is conceivable she has chronic bleeding from constriction due to hiatal hernia -check iron profile and ferritin -outpatient follow-up with Dr. Clifford to consider colonoscopy and discuss m anagement of the hiatal hernia 4. Migraines -continue routine meds per home dosing 5. Insomnia -ordered zolpidem 5 mg HS as needed and lorazepam 1 mg HS as needed per patient request DVT prophylaxis: SCDs Patient admitted to a hospital observation for diuresis and evaluation of asthma anticipating she will be able to return home tomorrow with outpatient follow-up. Quality VTE Deep Vein Thrombosis/Pulmonary Embolism Present on Admission: No
[2020-02-24 18:21] LABS: HEMOLYSIS < 15 (0-50); Iron 13 ug/dL (37-170)
[2020-02-24] MEDS: ONDANSETRON 4 MG/2 ML INJ IV (18:30)
[2020-02-24 18:33] LABS: Percent Iron Saturation 4 % (15-50); Total Iron Binding Capacity 337 ug/dL (265-497); Transferrin 272 mg/dL (206-381)
[2020-02-24 19:03] LABS: Ferritin 13 ng/mL (11-264)
[2020-02-24] MEDS: LEVALBUTEROL HFA 200 PUFF INH INH (19:37)
[2020-02-24] MEDS: PANTOPRAZOLE 40 MG TABLET PO (20:06)
[2020-02-24] MEDS: METOCLOPRAMIDE HCL 10 MG TABLET 5 MG PO (20:06)
[2020-02-24] MEDS: PRAMIPEXOLE 0.25 MG TABLET 0.75 MG PO (20:06)
[2020-02-24] MEDS: LORazepam 1 MG TABLET PO (22:14)
--- NOTE | 2020-02-24 23:44 | PC.NURSE ---
220, pt called me and asked for lasix. notified provider. pt has also been drinking plenty of water. per provider, she is now on 1200cc/24 fluid restriction. pt is independent in the room. pt was medicated earlier for some generalize pain and head ache.
[2020-02-25] VITALS (7 sets, daily range): BP systolic 108–125; BP diastolic 64–80; PULSE 76–94; RESP 17–18; TEMP 36.3–36.6; O2SAT 94–98
--- NOTE | 2020-02-25 00:52 | PC.NURSE ---
Addendum entered by Lilo Mcdonough R.N. 02/25/20 06:06: Medicated earlier with Robaxin as headache not resolved with Imitrex and was able to sleep past 1 1/2 hours. Now, again, states headache is 6/10 so medicated with Oxycodone. Addendum entered by Lilo Mcdonough R.N. 02/25/20 03:47: Patient calling repeatedly and requesting additional water even though she has already taken in her entire allotment of 200cc fluid this shift. States if she doesn't get more water she is going to get dehydrated since she is taking Lasix. ILAN Delarosa, notified and came to speak to patient. Verbal order received that patient may have an additional 200cc fluid on this shift tonight. Addendum entered by Lilo Mcdonough R.N. 02/25/20 03:26: Complains of migraine headache so medicated with Imitrex and ice pack applied. Original Note: 2354 patient seen and assessed. Is alert and oriented. Breath sounds CTA; on oxygen at 0.5L/min with sat of 93%. Denies SOB. HRR but tachy w/telemetry reading of ST rate of 103. Denies nausea. BT present but denies flatus. Having urinary urgency/frequency related to having received IV Lasix at shift change; urine is pale yellow. Is able to move self in bed. Up to BSC with SBA but appears steady on feet and patient denies dizziness or lightheadedneess. Bilateral LE edema noted; feet elevated on multiple pillows. Complained of 5/10 head/back pain with hx of fibromyalgia; medicated with Oxycodone and is currently asleep. Fall risk score is moderate; patient reminded to call for assistance and patient verbalizes agreement to do so. Is on fluid restriction.
[2020-02-25] MEDS: SUMAtriptan 25 MG TABLET 100 MG PO (03:11)
[2020-02-25] MEDS: LEVALBUTEROL HFA 200 PUFF INH INH (03:24)
[2020-02-25] MEDS: methocarbamoL 500 MG TABLET 750 MG PO (04:07)
[2020-02-25] MEDS: OXYCODONE IR 5 MG TABLET PO ×2 (06:04→08:35)
[2020-02-25 06:34] LABS: Blood Urea Nitrogen 22 mg/dL (7-17); Calcium 8.9 mg/dL (8.4-10.2); Carbon Dioxide 35 mmol/L (22-32); Chloride 99 mmol/L (98-107); Estimated Glomerular Filt Rate > 60.0 mL/min (>60); Glucose 130 mg/dL (80-110); HEMOLYSIS < 15 (0-50); Potassium 3.5 mmol/L (3.4-5.1); Sodium 136 mmol/L (137-145)
[2020-02-25] MEDS: PANTOPRAZOLE 40 MG TABLET PO (06:40)
[2020-02-25] MEDS: ALBUTEROL/IPRATROPIUM 3 ML AMPUL INH ×2 (07:53→10:50)
--- NOTE | 2020-02-25 08:00 | RT ---
The patients home symbicort has not been brought in for home.
[2020-02-25] MEDS: FUROSEMIDE 20 MG/2 ML VIAL IV (08:35)
[2020-02-25] MEDS: POTASSIUM CHLORIDE 20 MEQ TAB PO (08:35)
[2020-02-25] MEDS: GABAPENTIN 600 MG TABLET PO (08:35)
[2020-02-25] MEDS: SODIUM CHLORIDE 0.9% FLUSH 10 ML IV (08:37)
--- NOTE | 2020-02-25 11:48 | PM.DS.1 ---
History of Present Illness History of Present Illness Chief complaint: difficulty breathing Narrative: Patient is a 64-year-old female with history of chronic asthma, migraine disorder, fibromyalgia, anxiety and depression presented to emergency department with complaints worsening shortness of breath and edema. This appears to be her 5th ER visit since beginning of January. She feels her asthma is not adequately controlled. She sees Dr. Healy at [facility] for pulmonology. She has been compliant with her inhalers and nebulizer treatments but feels she is not getting enough relief. She has chronic cough and wheezing. She states she was on methylprednisolone for a month and stopped it about 10 days ago without tapering. She has recently noticed severe edema in her extremities which is not been a problem before. She states she was treated recently for pneumonia as an outpatient. Her chest x-ray from today's ER visit does not show pneumonia or other lung abnormalities. She also had a chest CTA on February 09 which did not show evidence of pulmonary embolism. She states she has not been able to walk her dog recently because she gets out of breath. She is also out of breath at rest. No chest pains. She had an echo in October last year which was unremarkable. Cardiac enzymes have been normal. ER physician recommended admission to observation due to patient's ongoing symptoms requiring frequent ER visits. On ER evaluation, her vitals were normal with pulse ox ranging from 93-96% on room air. Labs show normal CBC, procalcitonin, troponin. Labs are notable for significant anemia with hemoglobin of 8.1. On further review she has evidence of anemia developing since last fall. On October 13, 2019 her hemoglobin was normal at 12.3, in October it was 10.7, and it has subsequently gradually drifted down. Patient has not noted melena or rectal bleed. She does take ibuprofen. She had EGD done by Dr. Clifford on 01/29/2020 for evaluation large hiatal hernia. There were no other findings. Patient does feel the hiatal hernia pushes up into her chest and Effexor breathing. Discharge Providers Provider Date of admission: 02/24/20 10:02 Discharge Date: 02/25/20 Primary care physician: Oliver Saldaña MD Consults: 02/24/20 07:56 Consult to Respiratory Therapy Evaluate & Treat Comment: Physician Instructions: Evaluate and treat 02/24/20 13:40 Consult to Respiratory Therapy Evaluate & Treat Comment: Physician Instructions: Evaluate and treat Discharge provider: Jadiel Encarnacion MD Summary Hospital Course Discharge Diagnosis: 1. Anasarca 2. Fluid retention secondary to prolonged oral steroid use 3. Dyspnea 4. Chronic blood loss anemia 5. Chronic asthma 6. Migraines Patient was admitted due to complaints of progressive dyspnea and fluid retention. Dyspnea did not seem asthma related as she had no wheezing on exam. Chest x-ray was normal. She had been on methylprednisolone for about a month and stopped it 1-1/2 weeks prior to admission and this causes 3rd to get significant fluid retention in her extremities. She received several doses of IV Lasix with quite a lot of diuresis. She feels better with removal of this extra fluid. She has Rx for furosemide at home which she can take as needed. Her echo did show normal LVEF, low right atrial pressures, mild to moderate TR, and mild to moderate pulmonary hypertension She is also noted to have chronic blood-loss anemia. She has developed significant microcytic anemia since September of last year, she had EGD on January 29, [address] Clifford which showed a large hiatal hernia but did not show any obvious cause of bleed, she is unsure of her last colonoscopy but believes she had it within the past 5 years. Iron profile and ferritin are supportive of chronic blood loss anemia. She is advised to get follow up with PCP to discuss repeat colonoscopy in other workup for finding cause of the anemia. Status at Discharge Cognitive/behavioral status at discharge: oriented Functional status at discharge: independent ambulation Overall status at discharge: patient is progressing back to baseline Exam Vital Signs (past 8 hours): - 02/25/20 07:00 02/25/20 07:58 02/25/20 08:00 Temperature 97.8 F Pulse Rate 86 76 Respiratory Rate 18 17 Blood Pressure 112/80 Pulse Oximetry 98 96 98 Oxygen Delivery Method Room Air Oxygen Flow Rate 0 Objective Labs Result Diagrams: 02/24/20 08:05 02/25/20 05:57 Labs: Laboratory Results - last 24 hr 02/24/20 02/24/20 02/25/20 08:05 08:05 05:57 Sodium 136 L Potassium 3.5 Chloride 99 Carbon Dioxide 35 H BUN 22 H Creatinine 0.88 Estimated GFR > 60.0 BUN/Creatinine Ratio 25.0 H Glucose 130 H Calcium 8.9 Iron 13 L TIBC 337 % Saturation 4 L Transferrin 272 Ferritin 13 PFSH Medical History Anemia Anxiety Asthma Chronic back pain Chronic cough Depression Femur fracture, left Fibromyalgia Fractures GERD (gastroesophageal reflux disease) Hiatal hernia Recurrent sinusitis Surgical History Anesthesia History of eye surgery (~1973) History of foot surgery History of hysterectomy (~1979) History of shoulder surgery (~2011) History of tonsillectomy (~1975) Hx of bilateral cataract extraction Family History Mother Heart disease Social History marital status: number of children: 1 household members: none lives independently: Yes caregiver/support person: Yes (3 afternoons per week) pets and animals: Yes occupational status: disabled Smoking Status: Never smoker alcohol intake: never substance use type: does not use Discharge Plan Discharge Plan Patient Disposition: Home Provider Discharge Comment: Take furosemide tablet and potassium daily until your legs are back to normal. Also you have a significant iron deficiency anemia which is likely due to chronic intestinal blood loss. Please follow up with your PCP on this. You should probably have another colonoscopy. It is also possible you could be losing blood from your hiatal hernia or elsewhere in the GI tract. Discharge orders & Medications Prescriptions: Continued potassium chloride 20 mEq tablet extended release 10 meq PO DAILY PRN (Reason: Take w/lasix) RF: 0 diazepam 5 mg tablet 5 mg PO BID PRN (Reason: Anxiety) RF: 0 promethazine 25 mg tablet 25 mg PO Q8H PRN (Reason: nausea and vomiting) Qty: 12 RF: 1 levalbuterol HCl 0.63 mg/3 mL solution for nebulization 0.63 mg INHALATION Q8H PRN (Reason: shortness of breath or wheezing) Qty: 90 RF: 11 methocarbamol 750 mg tablet 750 mg PO TID PRN (Reason: Spasms) Qty: 90 RF: 3 pramipexole [Mirapex] 0.75 mg tablet 0.75 mg PO BEDTIME Qty: 90 RF: 3 epinephrine 0.3 mg/0.3 mL auto-injector 0.3 mg IM ONCE PRN (Reason: Allergic Reaction) Qty: 1 RF: 11 budesonide-formoterol [Symbicort] 80-4.5 mcg/actuation HFA aerosol inhaler 2 puff INHALATION BID Qty: 10.2 RF: 0 sumatriptan succinate 100 mg tablet 100 mg PO ONCE PRN (Reason: migraine headache) Qty: 14 RF: 3 montelukast 10 mg tablet 10 mg PO BEDTIME PRN (Reason: Allergy Symptoms) Qty: 90 RF: 3 ibuprofen 600 mg tablet 600 mg PO Q8H PRN (Reason: fever or pain) Qty: 90 RF: 0 rizatriptan 10 mg tablet 10 mg PO .COMPLEX PRN (Reason: migraine headache) Qty: 12 RF: 3 budesonide 32 mcg/actuation spray,non-aerosol 1 spray intranasal DAILY Qty: 8.43 RF: 0 levalbuterol tartrate [Xopenex HFA] 45 mcg/actuation HFA aerosol inhaler 2 inhalation INHALATION BID RF: 0 metoclopramide HCl 5 mg Tablet 5 mg PO DAILY PRN (Reason: Migraine onset) RF: 0 furosemide [Lasix] 20 mg tablet 20 mg PO DAILY PRN (Reason: Edema) RF: 0 Trintellix 10 mg Tablet 10 mg PO BEDTIME RF: 0 lidocaine 5 % Ointment 1 applic TOPICAL TID PRN (Reason: pain) RF: 0 sennosides [senna] 8.6 mg Tablet 17.2 mg PO BEDTIME PRN (Reason: Constipation) RF: 0 garlic oil 2 dose PO DIRECTED RF: 0 ketotifen fumarate [Zaditor] 0.025 % (0.035 %) Drops 1 drp OPHTHALMIC (EYE) BID RF: 0 diphenhydramine HCl [Benadryl] 25 mg Capsule 75 mg PO DAILY PRN (Reason: Allergy Symptoms) RF: 0 ketorolac [Sprix] 15.75 mg/spray [place],Non-Aerosol 15.75 mg INTRANASAL Q6-8H PRN (Reason: Migraine Headache) RF: 0 omeprazole 40 mg Capsule,Delayed Release(Dr/Ec) 40 mg PO BID RF: 0 acetaminophen 500 mg Tablet 500 mg PO Q6H PRN (Reason: Pain (Scale Score 1-3)) RF: 0 mirtazapine 7.5 mg Tablet 7.5 mg PO BEDTIME PRN (Reason: Sleep) RF: 0 oxycodone 5 mg tablet 5 mg PO QID PRN (Reason: Pain (Scale Score 4-6)) RF: 0 gabapentin [Neurontin] 600 mg tablet 600 mg PO TID RF: 0 ondansetron HCl [Zofran] 8 mg tablet 8 mg PO Q12H PRN (Reason: nausea and vomiting) Qty: 20 RF: 3 Follow up/Referrals: Oliver Saldaña MD [Primary Care Provider] - Diet/Activity/Treatments Diet: Diet as Tolerated Visit Report/Discharge Packet Instructions: Diuretics, DI for Prescription Opioid Use Discharge Data Primary Care Provider: Oliver Saldaña Attending Provider: Jadiel Encarnacion VTE Deep Vein Thrombosis/Pulmonary Embolism Present on Admission: No
--- NOTE | 2020-02-25 13:20 | PC.NURSE ---
Patient given 5 mg of oxycodone for pain 07/22 at 8:35. Patient stated she wanted to drive herself home and that she only lived a few blocks. This adjusto writer operator encouraged the patient to find someone to drive her home and als gave the option of her staying until 12:30, 4 hours after the oxycodone administration if she wished to drive herself home. The patient was able to find a ride and was escorted via wheelchair to her ride's car at 12:15. Discharge instructions given, questioned answered.
--- NOTE | 2020-02-25 14:07 | CM.DANOTE ---
Patient is a 64 year old female who was admitted on 02/24/20 for SOB. Pt has [employer] and [facility] for insurance and her PCP is Dr. Oliver Saldaña. EMR was reviewed. Per MD, pt with acute dyspnea and anemia and adema and pt does not seem to be very med compliant but medically stable now to d/c home later today. SW met bedside with pt and explained role and pt confirms information from MANAGER OFFICE Consult on pt in the ED on 02/10/20 that she lives at home alone in [place] and has had at least 5 ED visits in the past month or so for similar medical needs and confirms that her stress/concern with her declining relationship with her adult Dtr who has cancer has increased her anxiety and breathing issues. Pt confirms she is still not speaking to her Dtr but states that she has established with a counselor for weekly support and feels that this has been beneficial. Pt also states she had previously had [facility] CG 3x a week leading up to COVID but it had been postponed due to pt's weak immune system but pt states she has recently been in contact with her [facility] CM and her CG assist will be resuming again soon. Preference is to d/c home later today and states she has her vehicle in the parking lot and is comfortable driving herself. Plan: Patient to d/c home later today via her own vehicle and pt established with outpt support system of counseling and [facility]. RAMAKRISHNA Borges Discharge Planning/Care Management CM Discharge Assessment Start: 02/25/20 14:06 Freq: Status: Active Protocol: Document 02/25/20 14:06 (Rec: 02/25/20 14:07 [id number]) Discharge Planning Assessment Assigned [employer] Operator RAMAKRISHNA Benavidez DPOA/Assigned Designee Name none Advance Directives? No Advance Directives on File No History Provided By Patient,Medical Record Has Patient been admitted in last 30 No days? Comment Multiple ED visits in the past month Prior Living Arrangements Apartment/Condo Household Members none Type of transporation used prior to Relies on Others admit Independent with ADL's Yes Is patient alert and oriented? Yes Needs Assistance With Managing Medications,Home Chores / Shopping Caregiver for Another No Comment Bone stimulator that she uses daily for approximately 4hrs after spinal surgery. Barriers to Discharge No Discharge Plan Home Transportation Arrangement Patient's vehicle is in the parking lot Referrals Initiated None needed Whiteboard Updated in Patient Room with Yes name and ext. # of [employer] Operator Review Status In Process Please Provide Date Initial DC 02/25/20 Assessment Was Performed Next Review Type Continued Stay Review
== END 2020-02-25 12:15 | disposition home or self-care (01) ==
LOC: ED 09:11 → AC 10:02
PROVIDERS: Admitting Provider Internal Medicine; Emergency Provider Emergency Medicine; PCP Family Medicine; Referring Provider Emergency Medicine; Visit Provider Internal Medicine
DX: R60.1 Generalized edema (principal); R06.02 Shortness of breath; J45.909 Unspecified asthma, uncomplicated; D50.0 Iron deficiency anemia secondary to blood loss (chronic); K44.9 Diaphragmatic hernia without obstruction or gangrene; G43.909 Migraine, unspecified, not intractable, without status migrainosus; G47.00 Insomnia, unspecified; M79.7 Fibromyalgia; F41.9 Anxiety disorder, unspecified; F32.9 Major depressive disorder, single episode, unspecified; Z20.822 Contact with and (suspected) exposure to COVID-19
CPT/HCPCS: 36415; 71045; 80048; 80053; 81003; 82550; 82553; 82728; 83540; 83550; 83605; 83880; 84145; 84484; 85025; 85610; 85730; 87040; 87635; 93005; 93010; 93306; 94640; 94762; 96374; 96375; 96376; 99284; C9803; G0378; J1940; J2405

== ENCOUNTER → 2020-02-29 09:20 | Outpatient (CLI) | payer OTHER, MEDICAID, SELFPAY ==
[2020-02-27 16:34] VITALS: BMI 39.3
[2020-02-29 10:11] LABS: COVID19 -Nasal RAPID Negative (Negative)
== END ==
PROVIDERS: PCP Family Medicine; Visit Provider Physician Assistant
DX: Z20.822 Contact with and (suspected) exposure to COVID-19 (principal)
CPT/HCPCS: 87635

== ENCOUNTER 2020-03-01 01:51 | Emergency (ER) | payer OTHER, MEDICAID, SELFPAY ==
[2020-02-27 16:34] VITALS: BMI 39.3
[2020-03-01] VITALS (16 sets, daily range): BP systolic 105–147; BP diastolic 59–76; PULSE 77–92; RESP 20–26; TEMP 36.7; O2SAT 89–98; BMI 35.4
--- NOTE | 2020-03-01 01:58 | ED_ITS ---
HPI - Extremity Problem General Chief complaint: Extremity Injury, Lower Stated complaint: edema lower extremities Time Seen by Provider: 03/01/20 01:52 Source: patient Mode of arrival: Ambulatory Limitations: no limitations History of Present Illness HPI Narrative: Patient is a 64-year-old female with history of chronic asthma, migraine disorder, fibromyalgia, anxiety and depression who presents with a chief complaint of ongoing lower extremity swelling and pain. She was recently admitted into the hospital and upon discharge was encouraged to take Lasix as directed and follow-up. She states she has been taking her medications but has been on her feet more than normal as well as in a chair with her feet hanging down. She denies any runny nose or sore throat. She denies any cough and is chronically short of breath. She denies any dizziness or lightheadedness. MD Complaint: extremity pain and extremity swelling Onset (ago): day(s) Pain Consistency: constant Location: left and right Quality: burning Radiation: none Relieving factors: nothing Exacerbating factors: weight bearing and walking Associated symptoms: shortness of breath Related Data Home Medications Medication Instructions Recorded Confirmed garlic oil 2 dose PO DIRECTED 09/20/18 02/24/20 sennosides [senna] 17.2 mg PO BEDTIME PRN 09/20/18 02/24/20 potassium chloride 20 mEq 10 meq PO DAILY PRN 10/29/18 02/24/20 tablet,extended release levalbuterol tartrate 45 2 inhalation INHALATION BID gram 08/26/19 02/24/20 mcg/actuation aerosol inhaler metoclopramide HCl 5 mg PO DAILY PRN 09/23/19 02/24/20 diphenhydramine HCl [Benadryl] 75 mg PO DAILY PRN 10/26/19 02/24/20 ketorolac [Sprix] 15.75 mg INTRANASAL Q6-8H PRN 10/26/19 02/24/20 ketotifen fumarate [Zaditor] 1 drp OPHTHALMIC (EYE) BID 10/26/19 02/24/20 diazepam 5 mg tablet 5 mg PO BID PRN tab 12/12/19 02/24/20 gabapentin 600 mg tablet 600 mg PO TID tab 12/12/19 02/24/20 acetaminophen 500 mg PO Q6H PRN 02/10/20 02/24/20 mirtazapine 7.5 mg PO BEDTIME PRN 02/10/20 02/24/20 omeprazole 40 mg PO BID 02/10/20 02/24/20 oxycodone 5 mg PO QID PRN 02/10/20 02/24/20 Trintellix 10 mg PO BEDTIME 02/24/20 02/24/20 furosemide [Lasix] 20 mg PO DAILY PRN 02/24/20 02/24/20 lidocaine 1 applic TOPICAL TID PRN 02/24/20 02/24/20 Previous Rx's Medication Instructions Recorded ondansetron HCl 8 mg tablet 8 mg PO Q12H PRN #20 tab 01/07/19 promethazine 25 mg tablet 25 mg PO Q8H PRN #12 tab 02/11/19 levalbuterol HCl 0.63 mg/3 mL 0.63 mg INHALATION Q8H PRN #90 ml 09/11/19 solution for nebulization methocarbamol 750 mg tablet 750 mg PO TID PRN #90 tab 09/29/19 pramipexole 0.75 mg tablet 0.75 mg PO BEDTIME #90 tab 09/29/19 epinephrine 0.3 mg/0.3 mL 0.3 mg IM ONCE PRN #1 ea 01/01/20 injection, auto-injector budesonide-formoterol HFA 80 2 puff INHALATION BID #10.2 gram 01/28/20 mcg-4.5 mcg/actuation aerosol inhaler budesonide 32 mcg/actuation nasal 1 spray INTRANASAL DAILY #8.43 ml 02/23/20 spray ibuprofen 600 mg tablet 600 mg PO Q8H PRN #90 tab 02/23/20 montelukast 10 mg tablet 10 mg PO BEDTIME PRN #90 tab 02/23/20 rizatriptan 10 mg tablet 10 mg PO .COMPLEX PRN #12 tab 02/23/20 sumatriptan succinate 100 mg tablet 100 mg PO ONCE PRN #14 tab 02/23/20 Allergies Allergy/AdvReac Type Severity Reaction Status Date / Time latex Allergy Severe Rash Verified 03/01/20 02:15 morphine [MORPHINE] Allergy Severe Anaphylaxis Verified 03/01/20 02:15 Penicillins [PENICILLINS] Allergy Severe Anaphylaxis Verified 03/01/20 02:15 Sulfa (Sulfonamide Allergy Severe RASH Verified 03/01/20 02:15 Antibiotics) [SULFA (SULFONAMIDE ANTIBIOTICS)] azithromycin Allergy Intermediate Rash Verified 03/01/20 02:15 [From ZITHROMAX Z-MARLIYN] cefuroxime [From Ceftin] Allergy Intermediate Rash Verified 03/01/20 02:15 sulfamethoxazole Allergy Intermediate RASH Verified 03/01/20 02:15 [From SEPTRA] trimethoprim [From SEPTRA] Allergy Intermediate RASH Verified 03/01/20 02:15 ciprofloxacin [From Cipro] Allergy Pt does Verified 03/01/20 02:15 not remember reaction Corticosteroids Allergy Swelling Verified 03/01/20 02:15 (Glucocorticoids) of Lip/Tongue/Throat cephalexin [From Keflex] AdvReac Severe Fever, Verified 03/01/20 02:15 Asthma, Tachycardia prednisone AdvReac Severe nausea and Verified 03/01/20 02:15 feels very weak, and axious verapamil AdvReac Intermediate Asthma Verified 03/01/20 02:15 symptoms zonisamide AdvReac Intermediate Asthma Verified 03/01/20 02:15 symptoms Review of Systems Constitutional Constitutional: Denies chills, Denies fatigue, Denies fever(s), Denies frequent falls, Denies lethargy and Denies weakness Eyes Eyes: Denies change in vision, Denies eye discharge, Denies irritation and Denies loss of vision ENT Ears, Nose, Mouth, and Throat: Denies change in voice, Denies dizziness, Denies neck pain, Denies sore throat and Denies throat swelling Cardiovascular Cardiovascular: Denies chest pain, Denies irregular heart rhythm, Reports leg edema, Denies lightheadedness, Denies palpitations, Reports dyspnea, Denies dyspnea on exertion and Denies orthopnea Respiratory Respiratory: Denies cough, Reports dyspnea, Denies dyspnea on exertion and Denies wheezing Gastrointestinal Gastrointestinal: Denies abdominal pain, Denies change in bowel habits, Denies diarrhea, Denies nausea and Denies vomiting Musculoskeletal Musculoskeletal: Denies neck pain and Denies numbness Integumentary/Breasts Skin/Breast: Denies pruritus, Denies erythema, Denies rash and Denies wounds Neurologic Neurologic: Denies behavioral changes, Denies confusion, Denies dizziness, Denies frequent falls, Denies loss of vision, Denies numbness and Denies weakness Psychiatric Psychiatric: Denies anxiety, Denies behavioral changes, Denies confusion, Denies depression, Denies homicidal ideation and Denies suicidal ideation Endocrine Endocrine: Denies fatigue, Denies flushing and Denies palpitations Hematologic/Lymphatic Hematologic/Lymphatic: Denies easy bruising Allergic/Immunologic Allergic/Immunologic: Denies urticaria, Denies throat swelling and Denies wheezing Patient History Medical History Anemia Anxiety Asthma Chronic back pain Chronic cough Depression Femur fracture, left Fibromyalgia Fractures GERD (gastroesophageal reflux disease) Hiatal hernia Recurrent sinusitis Surgical History Anesthesia History of eye surgery (~1973) History of foot surgery History of hysterectomy (~1979) History of shoulder surgery (~2011) History of tonsillectomy (~1975) Hx of bilateral cataract extraction Family History Mother Heart disease Social History marital status: number of children: 1 household members: none lives independently: Yes caregiver/support person: Yes (3 afternoons per week) pets and animals: Yes occupational status: disabled Smoking Status: Never smoker alcohol intake: never substance use type: does not use Smoking Status: Never smoker alcohol intake frequency: holidays/special occasions only Substance Use Type: does not use and other Exam Narrative Exam Narrative: GENERAL: [64] year old patient appears stated age. Well- nourished, well-developed patient, in mild distress. Anxious, no obvious sign of respiratory distress HEAD: Atraumatic. Normocephalic. EYES: Pupils equal round and reactive. Extraocular motions intact. No scleral icterus. No injection or drainage. ENT: Nose without bleeding, purulent drainage. Throat without erythema, tonsillar hypertrophy or exudate. Airway patent. NECK: Trachea midline. Non tender CARDIOVASCULAR: Regular rate and rhythm without murmurs, gallops, or rubs. RESPIRATORY: Lungs are clear throughout with no evidence of wheezing, rales or rhonchi. No use of accessory muscles. Speaking complete sentences GASTROINTESTINAL: Abdomen soft, non-tender, nondistended. EXTREMITIES: Notable bilateral lower extremity edema BACK: Nontender without deformity or crepitance. No flank tenderness. NEURO: AOx3. SKIN: No rash or erythema of visible areas Initial Vital Signs Initial Vital Signs: Vital Signs Temperature 98.1 F 03/01/20 01:55 Pulse Rate 88 03/01/20 01:55 Respiratory Rate 20 03/01/20 01:55 Blood Pressure 131/61 03/01/20 01:55 Pulse Oximetry 96 03/01/20 01:55 Course Orders Ordered: ED Orders 03/01/20 01:58 XR hand RT min 3V Stat 03/01/20 01:59 XR chest 2V Stat 03/01/20 02:07 Complete Blood Count AUTO DIFF Stat Comprehensive Metabolic Panel Stat D Dimer Stat Magnesium Stat NT-proBNP (BNP-Adult 18+) Stat Partial Thromboplastin Time Stat Procalcitonin Stat Prothrombin Time INR Stat Troponin & CK Cardiac Panel Stat 03/01/20 02:13 COVID19 Stat 03/01/20 02:54 CT angio chest PE protocol Stat EKG-12 Lead Stat 03/01/20 04:35 US periph venous low extrem bi Stat 03/01/20 04:57 RT Consult Eval and Treat NOW Discontinued Medications Hydromorphone HCl (Hydromorphone 0.5 Mg Inj) 0.5 mg IV NOW ONE Stop: 03/01/20 05:57 Last Admin: 03/01/20 06:14 Dose: 0.5 mg Documented by: GURWINDER Vital Signs Vital signs: Vital Signs - 8 hr 03/01/20 01:55 03/01/20 02:02 03/01/20 02:53 Temperature 98.1 F Pulse Rate 88 84 92 H Respiratory Rate 20 23 Blood Pressure 131/61 Pulse Oximetry 96 96 98 03/01/20 02:54 03/01/20 03:00 03/01/20 03:30 Temperature Pulse Rate 84 81 90 Respiratory Rate 20 26 H Blood Pressure 147/61 H 146/63 H Pulse Oximetry 98 95 95 03/01/20 04:00 03/01/20 04:02 03/01/20 04:29 Temperature Pulse Rate 79 78 Respiratory Rate Blood Pressure 130/65 Pulse Oximetry 96 96 89 L 03/01/20 04:30 03/01/20 05:00 03/01/20 05:30 Temperature Pulse Rate 77 84 88 Respiratory Rate 25 H 24 Blood Pressure 132/62 121/59 L Pulse Oximetry 95 97 03/01/20 05:31 03/01/20 06:00 03/01/20 06:01 Temperature Pulse Rate 85 88 89 Respiratory Rate Blood Pressure 105/76 Pulse Oximetry 98 98 98 03/01/20 06:22 Temperature Pulse Rate Respiratory Rate 24 Blood Pressure Pulse Oximetry 95 MDM - Extremity (Nontraumatic) Lab Data Result diagrams: 03/01/20 02:07 03/01/20 02:07 Labs: Lab Results 03/01/20 03/01/20 03/01/20 Range/Units 02:07 02:07 02:07 WBC 8.8 (4.5-11.0) X10^3/uL RBC 3.25 L (4.0-5.2) X10^6/uL Hgb 7.9 L (12.0-16.0) g/dL Hct 24.9 L (36-46) % MCV 76.5 L (80-100) fL MCH 24.4 L (26-34) PG MCHC 31.9 (30-36) % RDW 17.1 H (11.6-14.8) % Plt Count 378 (150-400) X10^3/uL Neut % (Auto) 56.1 (50-75) % Lymph % (Auto) 31.5 (25-40) % [place] % (Auto) 8.5 (3-14) % Eos % (Auto) 3.0 (2-4) % Baso % (Auto) 0.9 (0-2) % Neut # (Auto) 4900 (7846-9332) /uL Lymph # (Auto) 2800 (4072-0473) /uL [place] # (Auto) 800 (0-900) /uL Eos # (Auto) 300 (0-450) /uL Baso # (Auto) 100 (0-100) /uL PT 11.5 (10.1-12.7) SECONDS INR 1.0 (0.9-1.3) APTT 29 (26.4-36.2) SECONDS D-Dimer 1985 H (<230) ng/mL Sodium 132 L (137-145) mmol/L Potassium 3.3 L (3.4-5.1) mmol/L Chloride 103 (98-107) mmol/L Carbon Dioxide 29 (22-32) mmol/L BUN 22 H (7-17) mg/dL Creatinine 0.99 (0.52-1.04) mg/dL Estimated GFR 56.3 L (>60) mL/min BUN/Creatinine Ratio 22.2 H (6-22) Glucose 97 (80-110) mg/dL Calcium 8.7 (8.4-10.2) mg/dL Magnesium 1.9 (1.6-2.3) mg/dL Total Bilirubin 0.2 (0.2-1.3) mg/dL AST 44 H (14-36) IU/L ALT 30 (<35) IU/L Alkaline Phosphatase 91 (38-126) U/L Total Creatine Kinase 253 H (30-135) U/L CK-MB (CK-2) 4.41 H (<2.37) ng/mL CK-MB (CK-2) Rel Index 1.7 (1.5-5.0) % Troponin I < 0.012 (0.01-0.034) ng/mL NT-Pro-B Natriuret Pep 203 H (<125) pg/mL Total Protein 6.1 L (6.3-8.2) g/dL Albumin 3.6 (3.5-5.0) g/dL Globulin 2.5 (1.7-4.1) g/dL Albumin/Globulin Ratio 1.4 (1.0-2.8) Procalcitonin (<0.5) ng/mL SARS-CoV-2 (PCR) (Negative) 03/01/20 03/01/20 Range/Units 02:07 02:13 WBC (4.5-11.0) X10^3/uL RBC (4.0-5.2) X10^6/uL Hgb (12.0-16.0) g/dL Hct (36-46) % MCV (80-100) fL MCH (26-34) PG MCHC (30-36) % RDW (11.6-14.8) % Plt Count (150-400) X10^3/uL Neut % (Auto) (50-75) % Lymph % (Auto) (25-40) % [place] % (Auto) (3-14) % Eos % (Auto) (2-4) % Baso % (Auto) (0-2) % Neut # (Auto) (0210-3841) /uL Lymph # (Auto) (7990-1095) /uL [place]ney # (Auto) (0-900) /uL Eos # (Auto) (0-450) /uL Baso # (Auto) (0-100) /uL PT (10.1-12.7) SECONDS INR (0.9-1.3) APTT (26.4-36.2) SECONDS D-Dimer (<230) ng/mL Sodium (137-145) mmol/L Potassium (3.4-5.1) mmol/L Chloride (98-107) mmol/L Carbon Dioxide (22-32) mmol/L BUN (7-17) mg/dL Creatinine (0.52-1.04) mg/dL Estimated GFR (>60) mL/min BUN/Creatinine Ratio (6-22) Glucose (80-110) mg/dL Calcium (8.4-10.2) mg/dL Magnesium (1.6-2.3) mg/dL Total Bilirubin (0.2-1.3) mg/dL AST (14-36) IU/L ALT (<35) IU/L Alkaline Phosphatase (38-126) U/L Total Creatine Kinase (30-135) U/L CK-MB (CK-2) (<2.37) ng/mL CK-MB (CK-2) Rel Index (1.5-5.0) % Troponin I (0.01-0.034) ng/mL NT-Pro-B Natriuret Pep (<125) pg/mL Total Protein (6.3-8.2) g/dL Albumin (3.5-5.0) g/dL Globulin (1.7-4.1) g/dL Albumin/Globulin Ratio (1.0-2.8) Procalcitonin < 0.05 (<0.5) ng/mL SARS-CoV-2 (PCR) Negative (Negative) Urine Dip Bedside Urine Glucose Negative Bedside Urine Bilirubin - Negative Bedside Urine Ketone - Negative Urine Specific [place] 1.015 Bedside Urine Occult Blood - Negative Bedside Urine pH 6.0 Bedside Urine Protein - Negative Bedside Urine Urobilinogen - Negative Bedside Urine Nitrite - Negative Bedside Urine Leukocytes - Negative Esterase Imaging Data CT scan - chest: Radiologist's Impression: No PE US - DVT: Radiologist's Impression: No DVT Discharge Plan Departure Patient Disposition: Home Clinical Impression: Bilateral edema of lower extremity Instructions: DI for Peripheral Edema -- Bilateral Activity Restrictions/Additional Instructions: *You have been diagnosed with [bilateral lower extremity edema] *What to do: * continue to take medications as directed *Follow up with your primary care provider in 2-3 days, call for an appointment. Let them know you were seen in the Emergency Department and that we ask that you be seen in follow up *Return to ER if you should have any new, worsening or concerning symptoms, Prescriptions: No Action potassium chloride 20 mEq tablet extended release 10 meq PO DAILY PRN (Reason: Take w/lasix) RF: 0 diazepam 5 mg tablet 5 mg PO BID PRN (Reason: Anxiety) RF: 0 promethazine 25 mg tablet 25 mg PO Q8H PRN (Reason: nausea and vomiting) Qty: 12 RF: 1 levalbuterol HCl 0.63 mg/3 mL solution for nebulization 0.63 mg INHALATION Q8H PRN (Reason: shortness of breath or wheezing) Qty: 90 RF: 11 methocarbamol 750 mg tablet 750 mg PO TID PRN (Reason: Spasms) Qty: 90 RF: 3 pramipexole [Mirapex] 0.75 mg tablet 0.75 mg PO BEDTIME Qty: 90 RF: 3 epinephrine 0.3 mg/0.3 mL auto-injector 0.3 mg IM ONCE PRN (Reason: Allergic Reaction) Qty: 1 RF: 11 budesonide-formoterol [Symbicort] 80-4.5 mcg/actuation HFA aerosol inhaler 2 puff INHALATION BID Qty: 10.2 RF: 0 sumatriptan succinate 100 mg tablet 100 mg PO ONCE PRN (Reason: migraine headache) Qty: 14 RF: 3 montelukast 10 mg tablet 10 mg PO BEDTIME PRN (Reason: Allergy Symptoms) Qty: 90 RF: 3 ibuprofen 600 mg tablet 600 mg PO Q8H PRN (Reason: fever or pain) Qty: 90 RF: 0 rizatriptan 10 mg tablet 10 mg PO .COMPLEX PRN (Reason: migraine headache) Qty: 12 RF: 3 budesonide 32 mcg/actuation spray,non-aerosol 1 spray intranasal DAILY Qty: 8.43 RF: 0 levalbuterol tartrate [Xopenex HFA] 45 mcg/actuation HFA aerosol inhaler 2 inhalation INHALATION BID RF: 0 metoclopramide HCl 5 mg Tablet 5 mg PO DAILY PRN (Reason: Migraine onset) RF: 0 furosemide [Lasix] 20 mg tablet 20 mg PO DAILY PRN (Reason: Edema) RF: 0 Trintellix 10 mg Tablet 10 mg PO BEDTIME RF: 0 lidocaine 5 % Ointment 1 applic TOPICAL TID PRN (Reason: pain) RF: 0 sennosides [senna] 8.6 mg Tablet 17.2 mg PO BEDTIME PRN (Reason: Constipation) RF: 0 garlic oil 2 dose PO DIRECTED RF: 0 ketotifen fumarate [Zaditor] 0.025 % (0.035 %) Drops 1 drp OPHTHALMIC (EYE) BID RF: 0 diphenhydramine HCl [Benadryl] 25 mg Capsule 75 mg PO DAILY PRN (Reason: Allergy Symptoms) RF: 0 ketorolac [Sprix] 15.75 mg/spray [place],Non-Aerosol 15.75 mg INTRANASAL Q6-8H PRN (Reason: Migraine Headache) RF: 0 omeprazole 40 mg Capsule,Delayed Release(Dr/Ec) 40 mg PO BID RF: 0 acetaminophen 500 mg Tablet 500 mg PO Q6H PRN (Reason: Pain (Scale Score 1-3)) RF: 0 mirtazapine 7.5 mg Tablet 7.5 mg PO BEDTIME PRN (Reason: Sleep) RF: 0 oxycodone 5 mg tablet 5 mg PO QID PRN (Reason: Pain (Scale Score 4-6)) RF: 0 gabapentin [Neurontin] 600 mg tablet 600 mg PO TID RF: 0 ondansetron HCl [Zofran] 8 mg tablet 8 mg PO Q12H PRN (Reason: nausea and vomiting) Qty: 20 RF: 3 Referrals: Oliver Saldaña MD [Primary Care Provider] -
--- NOTE | 2020-03-01 01:58 | DI.RAD.S_ITS ---
PROCEDURE: XR HAND RT MIN 3V INDICATIONS: hand pain, feels like hardware moved TECHNIQUE: 3 views of the hand(s) acquired. COMPARISON: [facility], , HAND 3V RIGHT, 12/25/2007, 17:05. FINDINGS: Bones: No fractures or dislocations. Carpal bones are normally aligned. No suspicious bony lesions. Remote ORIF of the 5th metacarpal shaft. Soft tissues: No suspicious soft tissue calcifications. IMPRESSION: No evidence acute bony abnormality of the right hand Comment: Final report is concordant with preliminary interpretation provided by [facility]. Dictated by: Michael Serrato M.D. on 03/01/2020 at 8:59 Approved by: Michael Serrato M.D. on 03/01/2020 at 9:03
--- NOTE | 2020-03-01 01:59 | DI.RAD.S_ITS ---
PROCEDURE: XR CHEST 2V INDICATIONS: SOB TECHNIQUE: 2 views of the chest were acquired. COMPARISON: [facility], , XR CHEST 1V, 02/24/2020, 8:00. FINDINGS: Surgical changes and devices: None. Lungs and pleura: Mild diffuse interstitial prominence. No pleural effusions or pneumothorax. Mediastinum: Mediastinal contours are normal. Mild cardiomegaly. Moderately large hiatal hernia. Bones and chest wall: No suspicious bony abnormalities. Soft tissues appear unremarkable. IMPRESSION: 1. Mild cardiomegaly. 2. Moderately large hiatal hernia. Comment: Final report is concordant with preliminary interpretation provided by [facility]. Dictated by: Michael Serrato M.D. on 03/01/2020 at 8:54 Approved by: Michael Serrato M.D. on 03/01/2020 at 8:57
[2020-03-01 02:21] LABS: Add Manual Diff / Slide Review NO; Basophils Absolute Auto 100 /uL (0-100); Basophils Percent Auto 0.9 % (0-2); Eosinophils Absolute Auto 300 /uL (0-450); Hematocrit 24.9 % (36-46); Hemoglobin 7.9 g/dL (12.0-16.0); Lymphocytes Absolute Auto 2800 /uL (1100-4500); Lymphocytes Percent Auto 31.5 % (25-40); Mean Corpuscular HGB Conc 31.9 % (30-36); Mean Corpuscular Hemoglobin 24.4 PG (26-34); Mean Corpuscular Volume 76.5 fL (80-100); Monocytes Absolute Auto 800 /uL (0-900); Monocytes Percent Auto 8.5 % (3-14); Neutrophils Absolute Auto 4900 /uL (1500-7000); Neutrophils Percent Auto 56.1 % (50-75); Platelet Count 378 X10^3/uL (150-400); Red Blood Cell Count 3.25 X10^6/uL (4.0-5.2); Red Cell Distribution Width 17.1 % (11.6-14.8); White Blood Cell Count 8.8 X10^3/uL (4.5-11.0)
[2020-03-01 02:23] LABS: Prothrombin Time 11.5 SECONDS (10.1-12.7)
[2020-03-01 02:26] LABS: PTT Partial Thromboplastin Tim 29 SECONDS (26.4-36.2)
[2020-03-01 02:29] LABS: Alanine Aminotransferase 30 IU/L (<35); Albumin 3.6 g/dL (3.5-5.0); Albumin Globulin Ratio 1.4 (1.0-2.8); Alkaline Phosphatase 91 U/L (38-126); Aspartate Aminotransferase 44 IU/L (14-36); BUN Creatinine Ratio 22.2 (6-22); Bilirubin Total 0.2 mg/dL (0.2-1.3); Blood Urea Nitrogen 22 mg/dL (7-17); Calcium 8.7 mg/dL (8.4-10.2); Carbon Dioxide 29 mmol/L (22-32); Chloride 103 mmol/L (98-107); Creatine Kinase 253 U/L (30-135); Estimated Glomerular Filt Rate 56.3 mL/min (>60); Globulin 2.5 g/dL (1.7-4.1); Glucose 97 mg/dL (80-110); HEMOLYSIS < 15 (0-50); Magnesium 1.9 mg/dL (1.6-2.3); Potassium 3.3 mmol/L (3.4-5.1); Sodium 132 mmol/L (137-145); Total Protein 6.1 g/dL (6.3-8.2)
[2020-03-01 02:33] LABS: D Dimer 1985 ng/mL (<230)
[2020-03-01 02:41] LABS: NT-proBNP (BNP-Adult 18+) 203 pg/mL (<125); Troponin I < 0.012 ng/mL (0.01-0.034)
[2020-03-01 02:44] LABS: CKMB % Relative Index 1.7 % (1.5-5.0); Creatine Kinase MB 4.41 ng/mL (<2.37)
[2020-03-01 02:47] LABS: Procalcitonin < 0.05 ng/mL (<0.5)
--- NOTE | 2020-03-01 02:54 | DI.CT.S_ITS ---
PROCEDURE: CT ANGIO CHEST PE PROTOCOL INDICATIONS: short of breath, critical dimer, recent hospitalization TECHNIQUE: After the administration of intravenous contrast, 2 mm thick sections acquired from the pulmonary apices to the posterior costophrenic angles. 3-dimensional maximum intensity projection (MIP) coronal and sagittal reformats were then acquired through the thorax. For radiation dose reduction, the following was used: automated exposure control, adjustment of mA and/or kV according to patient size. COMPARISON: [facility], CT, CT ANGIO CHEST PE PROTOCOL, 02/10/2020, 17:00. FINDINGS: Image quality: Excellent. Pulmonary arteries: Pulmonary arteries are normal in size, and demonstrate no intraluminal filling defects to suggest central pulmonary embolism. Lungs and pleura: Minimal left pleural effusion and patchy right basilar atelectasis. Very subtle patchy bilateral ground-glass opacities. No pleural effusions or pneumothorax. Central and peripheral airways are patent. Mediastinum: Mild cardiomegaly with right ventricular and left ventricular enlargement. Mild coronary artery calcifications. No pericardial effusion. No mediastinal or hilar adenopathy. Thoracic aorta is normal in caliber and enhancement. Esophagus is normal in caliber. Moderately large hiatal hernia. There is a small air containing cystic structure posterior to the distal trachea and to the right of the esophagus, possibly representing a esophageal diverticulum or a esophageal duplication cyst. This is an incidental finding. Bones and chest wall: No suspicious bony lesions. Ribs and thoracic spine appear intact throughout. Thyroid gland is unremarkable. No axillary or supraclavicular adenopathy. Abdomen: Visualized upper abdominal solid organs appear normal in the early arterial phase of enhancement. IMPRESSION: 1. No evidence acute pulmonary emboli. 2. Moderately large hiatal hernia. 3. Subtle patchy bilateral ground-glass opacities are of uncertain significance. It may potentially represent mild inflammation or submaximal inspiration. 4. Cardiomegaly with biventricular enlargement. 5. Mild coronary artery calcifications. 6. Minimal left pleural effusion and patchy right basilar atelectasis. Comment: Final report is concordant with preliminary interpretation provided by [facility]. Dictated by: Michael Serrato M.D. on 03/01/2020 at 8:31 Approved by: Michael Serrato M.D. on 03/01/2020 at 8:38
[2020-03-01 03:06] LABS: COVID19 -Nasal RAPID Negative (Negative)
--- NOTE | 2020-03-01 04:35 | DI.US.S_ITS ---
PROCEDURE: US PERIPH VENOUS LOW EXTREM BI INDICATIONS: PAIN, EDEMA; CRITICAL D-DIMER TECHNIQUE: Real-time imaging, as well as color and pulse Doppler interrogation, were performed of the deep veins of both legs from the inguinal ligament to the popliteal fossa. COMPARISON: None. FINDINGS: Right: The common femoral, femoral and popliteal veins are normally compressible, and free of intraluminal thrombus. Color and pulse Doppler demonstrate normal phasic intravascular flow. There is normal augmentation response to distal compression maneuver. Left: The common femoral, femoral and popliteal veins are normally compressible, and free of intraluminal thrombus. Color and pulse Doppler demonstrate normal phasic intravascular flow. There is normal augmentation response to distal compression maneuver. IMPRESSION: No DVT in the lower extremities bilaterally. Dictated by: Phillip Wilhelm M.D. on 03/01/2020 at 8:10 Approved by: Phillip Wilhelm M.D. on 03/01/2020 at 8:11
[2020-03-01] MEDS: HYDROMORPHONE 0.5 MG INJ IV (06:14)
== END 2020-03-01 07:43 | disposition home or self-care (01) ==
PROVIDERS: Emergency Provider Emergency Medicine; PCP Family Medicine
DX: R60.0 Localized edema (principal); R06.02 Shortness of breath; Z20.822 Contact with and (suspected) exposure to COVID-19
CPT/HCPCS: 36415; 71046; 71275; 73130; 80053; 81003; 82550; 82553; 83735; 83880; 84145; 84484; 85025; 85379; 85610; 85730; 87635; 93005; 93010; 93970; 96374; 99284; C9803; J1170; Q9967

== ENCOUNTER 2020-03-02 04:10 | Observation (INO) | payer OTHER, MEDICAID, SELFPAY ==
[2020-02-27 16:34] VITALS: BMI 39.3
[2020-03-02] VITALS (16 sets, daily range): BP systolic 104–148; BP diastolic 52–84; PULSE 80–95; RESP 16–42; TEMP 36.2–37.1; O2SAT 93–98; BMI 35.4; BMI 40.0
--- NOTE | 2020-03-02 04:52 | ED.SOB ---
HPI - SOB/Dyspnea General Chief Complaint: Shortness of Breath/Dyspnea Stated Complaint: Edema/ SOB Time Seen by Provider: 03/02/20 04:42 Source: patient and EMS Mode of arrival: EMS Limitations: no limitations History of Present Illness HPI Narrative: The patient arrives by EMS complaining of dyspnea, with orthopnea. She has a history of asthma, fibromyalgia, and a history of anxiety. She has multiple years recent ER visits. She was admitted last week, treated for CHF. She is significant, chronic peripheral edema. She underwent echocardiogram, ventricles are normal. EF is 65-70%. She was seen again last night in this ER. D-dimer was 1985. CTA chest showed no evidence of PE. Bilateral lower extremity Doppler studies were negative for DVT. She takes omeprazole for hiatal hernia. She has no abdominal pain. She has no history of PUD. She has diarrhea for about the last 1.5 weeks. She denies a history of GI bleed. She has not experienced melena with the diarrhea. The diarrhea is dark in color. She denies not taking NSAIDs, she is not anticoagulated. She has undergone frequent COVID-19 testing, including last night. She has been COVID-19 negative thus far. She has chronic anemia. Her H/H last night was 7.9/24.9. Multiple lab evaluations are available in recent months. Her baseline in early January 2020 was approximately H/H 10/30. The H/H has been drifting down since early January. She came in [facility] with a complaint of dyspnea. She has no a proxy, O2 sats were 97% upon arrival. She has orthopnea and edema. She has no cough and no wheezing. Related Data Home Medications Medication Instructions Recorded Confirmed garlic oil 2 dose PO DIRECTED 09/20/18 02/24/20 sennosides [senna] 17.2 mg PO BEDTIME PRN 09/20/18 02/24/20 potassium chloride 20 mEq 10 meq PO DAILY PRN 10/29/18 02/24/20 tablet,extended release levalbuterol tartrate 45 2 inhalation INHALATION BID gram 08/26/19 02/24/20 mcg/actuation aerosol inhaler metoclopramide HCl 5 mg PO DAILY PRN 09/23/19 02/24/20 diphenhydramine HCl [Benadryl] 75 mg PO DAILY PRN 10/26/19 02/24/20 ketorolac [Sprix] 15.75 mg INTRANASAL Q6-8H PRN 10/26/19 02/24/20 ketotifen fumarate [Zaditor] 1 drp OPHTHALMIC (EYE) BID 10/26/19 02/24/20 diazepam 5 mg tablet 5 mg PO BID PRN tab 12/12/19 02/24/20 gabapentin 600 mg tablet 600 mg PO TID tab 12/12/19 02/24/20 acetaminophen 500 mg PO Q6H PRN 02/10/20 02/24/20 mirtazapine 7.5 mg PO BEDTIME PRN 02/10/20 02/24/20 omeprazole 40 mg PO BID 02/10/20 02/24/20 oxycodone 5 mg PO QID PRN 02/10/20 02/24/20 Trintellix 10 mg PO BEDTIME 02/24/20 02/24/20 furosemide [Lasix] 20 mg PO DAILY PRN 02/24/20 02/24/20 lidocaine 1 applic TOPICAL TID PRN 02/24/20 02/24/20 Previous Rx's Medication Instructions Recorded ondansetron HCl 8 mg tablet 8 mg PO Q12H PRN #20 tab 01/07/19 promethazine 25 mg tablet 25 mg PO Q8H PRN #12 tab 02/11/19 levalbuterol HCl 0.63 mg/3 mL 0.63 mg INHALATION Q8H PRN #90 ml 09/11/19 solution for nebulization methocarbamol 750 mg tablet 750 mg PO TID PRN #90 tab 09/29/19 pramipexole 0.75 mg tablet 0.75 mg PO BEDTIME #90 tab 09/29/19 epinephrine 0.3 mg/0.3 mL 0.3 mg IM ONCE PRN #1 ea 01/01/20 injection, auto-injector budesonide-formoterol HFA 80 2 puff INHALATION BID #10.2 gram 01/28/20 mcg-4.5 mcg/actuation aerosol inhaler budesonide 32 mcg/actuation nasal 1 spray INTRANASAL DAILY #8.43 ml 02/23/20 spray ibuprofen 600 mg tablet 600 mg PO Q8H PRN #90 tab 02/23/20 montelukast 10 mg tablet 10 mg PO BEDTIME PRN #90 tab 02/23/20 rizatriptan 10 mg tablet 10 mg PO .COMPLEX PRN #12 tab 02/23/20 sumatriptan succinate 100 mg tablet 100 mg PO ONCE PRN #14 tab 02/23/20 Allergies Allergy/AdvReac Type Severity Reaction Status Date / Time latex Allergy Severe Rash Verified 03/01/20 02:15 morphine [MORPHINE] Allergy Severe Anaphylaxis Verified 03/01/20 02:15 Penicillins [PENICILLINS] Allergy Severe Anaphylaxis Verified 03/01/20 02:15 Sulfa (Sulfonamide Allergy Severe RASH Verified 03/01/20 02:15 Antibiotics) [SULFA (SULFONAMIDE ANTIBIOTICS)] azithromycin Allergy Intermediate Rash Verified 03/01/20 02:15 [From ZITHROMAX Z-MARILYN] cefuroxime [From Ceftin] Allergy Intermediate Rash Verified 03/01/20 02:15 sulfamethoxazole Allergy Intermediate RASH Verified 03/01/20 02:15 [From SEPTRA] trimethoprim [From SEPTRA] Allergy Intermediate RASH Verified 03/01/20 02:15 ciprofloxacin [From Cipro] Allergy Pt does Verified 03/01/20 02:15 not remember reaction Corticosteroids Allergy Swelling Verified 03/01/20 02:15 (Glucocorticoids) of Lip/Tongue/Throat cephalexin [From Keflex] AdvReac Severe Fever, Verified 03/01/20 02:15 Asthma, Tachycardia prednisone AdvReac Severe nausea and Verified 03/01/20 02:15 feels very weak, and axious verapamil AdvReac Intermediate Asthma Verified 03/01/20 02:15 symptoms zonisamide AdvReac Intermediate Asthma Verified 03/01/20 02:15 symptoms Review of Systems Constitutional Constitutional: Denies chills, Denies fatigue, Denies fever(s), Denies lethargy and Denies weakness Eyes Eyes: Denies change in vision ENT Ears, Nose, Mouth, and Throat: Denies change in voice, Denies neck pain and Denies sore throat Cardiovascular Cardiovascular: Denies chest pain, Denies irregular heart rhythm, Denies lightheadedness and Denies dyspnea Respiratory Respiratory: Denies cough, Denies dyspnea and Denies wheezing Gastrointestinal Gastrointestinal: Reports as per HPI, Denies abdominal pain, Denies change in bowel habits, Reports diarrhea, Denies nausea and Denies vomiting Genitourinary Genitourinary: Denies dysuria and Denies urinary urgency Genitourinary: Denies dysuria and Denies urinary urgency Musculoskeletal Musculoskeletal: Denies back pain, Denies neck pain and Denies numbness Integumentary/Breasts Skin/Breast: Denies erythema, Denies rash and Denies wounds Neurologic Neurologic: Denies confusion, Denies numbness and Denies weakness Psychiatric Psychiatric: Reports anxiety and Denies confusion Endocrine Endocrine: Denies fatigue and Denies flushing Hematologic/Lymphatic Hematologic/Lymphatic: Denies easy bleeding and Denies easy bruising Allergic/Immunologic Allergic/Immunologic: Denies wheezing Patient History Medical History Anemia Anxiety Asthma Chronic back pain Chronic cough Depression Femur fracture, left Fibromyalgia Fractures GERD (gastroesophageal reflux disease) Hiatal hernia Recurrent sinusitis Surgical History Anesthesia History of eye surgery (~1973) History of foot surgery History of hysterectomy (~1979) History of shoulder surgery (~2011) History of tonsillectomy (~1975) Hx of bilateral cataract extraction Family History Mother Heart disease Social History marital status: number of children: 1 household members: none lives independently: Yes caregiver/support person: Yes (3 afternoons per week) pets and animals: Yes occupational status: disabled Smoking Status: Never smoker alcohol intake: never substance use type: does not use Smoking Status: Never smoker alcohol intake frequency: holidays/special occasions only Substance Use Type: does not use and other Exam Initial Vital Signs Initial Vital Signs: Vital Signs Respiratory Rate 18 03/02/20 04:15 Pulse Oximetry 98 03/02/20 04:15 Const General: cooperative, well developed and anxious Nutritional Appearance: well nourished HENIA Head: normocephalic and atraumatic Mouth: oral mucosae normal Eyes Conjunctivae: other (Pale conjunctiva) Neck Neck: No JVD Resp Effort & Inspection: normal respiratory effort and able to speak in complete sentences Auscultation: clear to auscultation bilaterally, no rales, no rhonchi and no wheezes Cardio Rate: regular rate Rhythm: regular rhythm Heart Sounds: S1 normal, S2 normal, no click, no gallops, no murmurs and no rubs Pulses: normal peripheral pulses GI Palpation: soft, No mass and No tender Auscultation: normal bowel sounds Rectal Exam: visual inspection normal, normal sphincter tone, heme positive stool and mass (Small palpable nodules in the rectum.) Back/Spine/Pelvis Back: No CVA tenderness Skin General: No erythema and pallor Lesions: no lesions Neuro General: patient alert, patient oriented x3, gait normal and no focal motor deficits Speech: speech normal Extrem General: no pedal edema (3+ bilateral extremity edema.) and no calf tenderness Psych Appearance: grossly normal Speech and Movement: speech clear Mood: anxious mood Course Course Course Narrative: The patient is anxious, she complains of dyspnea. She has no hypoxia. GI bleeding has been identified. There is also a potential rectal mass. Her H/H has decreased again sensory your visit yesterday. She is normotensive, she is tachycardic with exertion. Protonix has been given. She is receiving normal saline. Type and screen has been done, transfusion is not been initiated. The GI bleed and the anemia is the etiology for her dyspnea, likely contributing to her peripheral edema. The case has been discussed with the hospitalist, ILAN Roth. He has accepted the patient admission. General surgery, Dr. Castro, has been consulted. He will evaluate the patient. Orders Ordered: ED Orders 03/02/20 05:04 EKG-12 Lead Stat 03/02/20 05:18 Complete Blood Count AUTO DIFF Stat Comprehensive Metabolic Panel Stat D Dimer Stat Lactate (Lactic Acid) Stat Magnesium Stat Partial Thromboplastin Time Stat Procalcitonin Stat Prothrombin Time INR Stat Troponin & CK Cardiac Panel Stat Type and Screen Stat Sodium Chloride (Normal Saline 0.9%) 1,000 mls @ 150 mls/hr IV CONT ZHANG Last Admin: 03/02/20 06:46 Dose: 150 mls/hr Documented by: Discontinued Medications Acetaminophen (Acetaminophen 325 Mg Tablet) 975 mg PO NOW ONE Stop: 03/02/20 06:39 Last Admin: 03/02/20 06:45 Dose: 975 mg Documented by: Lorazepam (Lorazepam 2 Mg/Ml Inj) 1 mg IV NOW ONE Stop: 03/02/20 06:17 Last Admin: 01/19/21 06:31 Dose: 1 mg Documented by: Pantoprazole Sodium (Pantoprazole 40 Mg Vial) 40 mg IV NOW ONE Stop: 03/02/20 05:15 Last Admin: 03/02/20 05:28 Dose: 40 mg Documented by: Vital Signs Vital signs: Vital Signs - 8 hr 03/02/20 04:15 03/02/20 04:17 03/02/20 04:30 Temperature 97.1 F L Pulse Rate 95 H 94 H Respiratory Rate 18 28 H 28 H Blood Pressure 122/60 106/52 L Pulse Oximetry 98 98 96 03/02/20 05:00 03/02/20 05:30 03/02/20 05:31 Temperature Pulse Rate 90 89 87 Respiratory Rate 35 H 42 H 27 H Blood Pressure 104/55 L 105/84 Pulse Oximetry 98 95 95 MDM - SOB/Dyspnea Lab Data Result diagrams: 03/02/20 05:18 03/02/20 05:18 Labs: Lab Results 03/02/20 03/02/20 03/02/20 Range/Units 05:18 05:18 05:18 WBC 8.0 (4.5-11.0) X10^3/uL RBC 3.05 L (4.0-5.2) X10^6/uL Hgb 7.6 L (12.0-16.0) g/dL Hct 23.6 L (36-46) % MCV 77.2 L (80-100) fL MCH 25.0 L (26-34) PG MCHC 32.4 (30-36) % RDW 17.0 H (11.6-14.8) % Plt Count 356 (150-400) X10^3/uL Neut % (Auto) 64.3 (50-75) % Lymph % (Auto) 23.6 L (25-40) % [place] % (Auto) 8.3 (3-14) % Eos % (Auto) 2.8 (2-4) % Baso % (Auto) 1.0 (0-2) % Neut # (Auto) 5100 (2820-3790) /uL Lymph # (Auto) 1900 (5437-9902) /uL [place] # (Auto) 700 (0-900) /uL Eos # (Auto) 200 (0-450) /uL Baso # (Auto) 100 (0-100) /uL PT 10.5 (10.1-12.7) SECONDS INR 0.9 (0.9-1.3) APTT 26 L (26.4-36.2) SECONDS D-Dimer 1540 H (<230) ng/mL Sodium (137-145) mmol/L Potassium (3.4-5.1) mmol/L Chloride (98-107) mmol/L Carbon Dioxide (22-32) mmol/L BUN (7-17) mg/dL Creatinine (0.52-1.04) mg/dL Estimated GFR (>60) mL/min BUN/Creatinine Ratio (6-22) Glucose (80-110) mg/dL Lactate (0.7-2.1) mmol/L Calcium (8.4-10.2) mg/dL Magnesium 2.1 (1.6-2.3) mg/dL Total Bilirubin (0.2-1.3) mg/dL AST (14-36) IU/L ALT (<35) IU/L Alkaline Phosphatase (38-126) U/L Total Creatine Kinase 321 H (30-135) U/L CK-MB (CK-2) 4.36 H (<2.37) ng/mL CK-MB (CK-2) Rel Index 1.4 L (1.5-5.0) % Troponin I < 0.012 (0.01-0.034) ng/mL Total Protein (6.3-8.2) g/dL Albumin (3.5-5.0) g/dL Globulin (1.7-4.1) g/dL Albumin/Globulin Ratio (1.0-2.8) Procalcitonin (<0.5) ng/mL Blood Type Antibody Screen 03/02/20 03/02/20 03/02/20 Range/Units 05:18 05:18 05:18 WBC (4.5-11.0) X10^3/uL RBC (4.0-5.2) X10^6/uL Hgb (12.0-16.0) g/dL Hct (36-46) % MCV (80-100) fL MCH (26-34) PG MCHC (30-36) % RDW (11.6-14.8) % Plt Count (150-400) X10^3/uL Neut % (Auto) (50-75) % Lymph % (Auto) (25-40) % [place] % (Auto) (3-14) % Eos % (Auto) (2-4) % Baso % (Auto) (0-2) % Neut # (Auto) (3419-0998) /uL Lymph # (Auto) (5173-9601) /uL [place] # (Auto) (0-900) /uL Eos # (Auto) (0-450) /uL Baso # (Auto) (0-100) /uL PT (10.1-12.7) SECONDS INR (0.9-1.3) APTT (26.4-36.2) SECONDS D-Dimer (<230) ng/mL Sodium 136 L (137-145) mmol/L Potassium 3.8 (3.4-5.1) mmol/L Chloride 107 (98-107) mmol/L Carbon Dioxide 25 (22-32) mmol/L BUN 19 H (7-17) mg/dL Creatinine 0.78 (0.52-1.04) mg/dL Estimated GFR > 60.0 (>60) mL/min BUN/Creatinine Ratio 24.4 H (6-22) Glucose 135 H (80-110) mg/dL Lactate 1.1 (0.7-2.1) mmol/L Calcium 8.9 (8.4-10.2) mg/dL Magnesium (1.6-2.3) mg/dL Total Bilirubin 0.1 L (0.2-1.3) mg/dL AST 44 H (14-36) IU/L ALT 29 (<35) IU/L Alkaline Phosphatase 88 (38-126) U/L Total Creatine Kinase (30-135) U/L CK-MB (CK-2) (<2.37) ng/mL CK-MB (CK-2) Rel Index (1.5-5.0) % Troponin I (0.01-0.034) ng/mL Total Protein 5.9 L (6.3-8.2) g/dL Albumin 3.4 L (3.5-5.0) g/dL Globulin 2.5 (1.7-4.1) g/dL Albumin/Globulin Ratio 1.4 (1.0-2.8) Procalcitonin < 0.05 (<0.5) ng/mL Blood Type Antibody Screen 03/02/20 Range/Units 05:18 WBC (4.5-11.0) X10^3/uL RBC (4.0-5.2) X10^6/uL Hgb (12.0-16.0) g/dL Hct (36-46) % MCV (80-100) fL MCH (26-34) PG MCHC (30-36) % RDW (11.6-14.8) % Plt Count (150-400) X10^3/uL Neut % (Auto) (50-75) % Lymph % (Auto) (25-40) % [place] % (Auto) (3-14) % Eos % (Auto) (2-4) % Baso % (Auto) (0-2) % Neut # (Auto) (8116-4797) /uL Lymph # (Auto) (9005-6443) /uL [place] # (Auto) (0-900) /uL Eos # (Auto) (0-450) /uL Baso # (Auto) (0-100) /uL PT (10.1-12.7) SECONDS INR (0.9-1.3) APTT (26.4-36.2) SECONDS D-Dimer (<230) ng/mL Sodium (137-145) mmol/L Potassium (3.4-5.1) mmol/L Chloride (98-107) mmol/L Carbon Dioxide (22-32) mmol/L BUN (7-17) mg/dL Creatinine (0.52-1.04) mg/dL Estimated GFR (>60) mL/min BUN/Creatinine Ratio (6-22) Glucose (80-110) mg/dL Lactate (0.7-2.1) mmol/L Calcium (8.4-10.2) mg/dL Magnesium (1.6-2.3) mg/dL Total Bilirubin (0.2-1.3) mg/dL AST (14-36) IU/L ALT (<35) IU/L Alkaline Phosphatase (38-126) U/L Total Creatine Kinase (30-135) U/L CK-MB (CK-2) (<2.37) ng/mL CK-MB (CK-2) Rel Index (1.5-5.0) % Troponin I (0.01-0.034) ng/mL Total Protein (6.3-8.2) g/dL Albumin (3.5-5.0) g/dL Globulin (1.7-4.1) g/dL Albumin/Globulin Ratio (1.0-2.8) Procalcitonin (<0.5) ng/mL Blood Type A Positive Antibody Screen Negative ECG Data Attestation: I personally reviewed and interpreted this ECG as follows: (Normal sinus rhythm rate 84 beats per minute. Normal intervals. No ectopy. Normal ST-T segments.) Critical Care Time Critical Care Time Critical Care Time: Yes Total Critical Care Time: 40 Attestation: Critical care time includes initial patient assessment, review of multiple medical records, review of EKG and lab data. Time included multiple clinical decisions. Time included informing the patient of the clinical findings, as well as consultation with the admitting hospitalist and the consulting surgeon. Discharge Plan Departure Patient Disposition: Admitted as Observation Clinical Impression: Acute GI bleeding, Rectal mass Admit Date/Time: 03/02/20 06:13 Admit Provider: Rom Roth
[2020-03-02] MEDS: PANTOPRAZOLE 40 MG VIAL IV (05:28)
[2020-03-02 05:37] LABS: Add Manual Diff / Slide Review NO; Basophils Absolute Auto 100 /uL (0-100); Eosinophils Absolute Auto 200 /uL (0-450); Eosinophils Percent Auto 2.8 % (2-4); Hematocrit 23.6 % (36-46); Hemoglobin 7.6 g/dL (12.0-16.0); Lymphocytes Absolute Auto 1900 /uL (1100-4500); Lymphocytes Percent Auto 23.6 % (25-40); Mean Corpuscular HGB Conc 32.4 % (30-36); Mean Corpuscular Volume 77.2 fL (80-100); Monocytes Absolute Auto 700 /uL (0-900); Monocytes Percent Auto 8.3 % (3-14); Neutrophils Absolute Auto 5100 /uL (1500-7000); Neutrophils Percent Auto 64.3 % (50-75); Platelet Count 356 X10^3/uL (150-400); Red Blood Cell Count 3.05 X10^6/uL (4.0-5.2)
[2020-03-02 05:49] LABS: INR 0.9 (0.9-1.3); Prothrombin Time 10.5 SECONDS (10.1-12.7)
[2020-03-02 05:52] LABS: Lactate (Lactic Acid) 1.1 mmol/L (0.7-2.1); PTT Partial Thromboplastin Tim 26 SECONDS (26.4-36.2)
[2020-03-02 05:55] LABS: Creatine Kinase 321 U/L (30-135); Magnesium 2.1 mg/dL (1.6-2.3)
[2020-03-02 05:56] LABS: Alanine Aminotransferase 29 IU/L (<35); Albumin 3.4 g/dL (3.5-5.0); Albumin Globulin Ratio 1.4 (1.0-2.8); Alkaline Phosphatase 88 U/L (38-126); Aspartate Aminotransferase 44 IU/L (14-36); BUN Creatinine Ratio 24.4 (6-22); Bilirubin Total 0.1 mg/dL (0.2-1.3); Blood Urea Nitrogen 19 mg/dL (7-17); Calcium 8.9 mg/dL (8.4-10.2); Carbon Dioxide 25 mmol/L (22-32); Chloride 107 mmol/L (98-107); Estimated Glomerular Filt Rate > 60.0 mL/min (>60); Globulin 2.5 g/dL (1.7-4.1); Glucose 135 mg/dL (80-110); HEMOLYSIS < 15 (0-50); Potassium 3.8 mmol/L (3.4-5.1); Sodium 136 mmol/L (137-145); Total Protein 5.9 g/dL (6.3-8.2)
[2020-03-02 05:59] LABS: D Dimer 1540 ng/mL (<230)
[2020-03-02 06:07] LABS: Troponin I < 0.012 ng/mL (0.01-0.034)
[2020-03-02 06:10] LABS: CKMB % Relative Index 1.4 % (1.5-5.0); Creatine Kinase MB 4.36 ng/mL (<2.37)
[2020-03-02] MEDS: LORazepam 2 MG/ML INJ 1 MG IV (06:31)
[2020-03-02 06:41] LABS: Procalcitonin < 0.05 ng/mL (<0.5)
[2020-03-02] MEDS: ACETAMINOPHEN 325 MG TABLET 975 MG PO (06:45)
[2020-03-02] MEDS: SODIUM CHLORIDE 0.9% 1,000 ML 150 ML IV (06:46)
[2020-03-02] MEDS: diazePAM 5 MG TABLET PO ×2 (09:29→20:25)
[2020-03-02] MEDS: OXYCODONE IR 5 MG TABLET PO ×3 (09:29→20:24)
[2020-03-02] MEDS: GABAPENTIN 600 MG TABLET PO ×3 (09:29→20:25)
[2020-03-02] MEDS: PANTOPRAZOLE 40 MG TABLET PO ×2 (09:30→20:25)
[2020-03-02] MEDS: LEVALBUTEROL HFA 200 PUFF INH INH (09:53)
--- NOTE | 2020-03-02 11:17 | PM.HP.1 ---
History of Present Illness History of Present Illness Date Patient Seen: 03/02/20 Time Patient Seen: 11:00 Chief complaint: Edema/ SOB Narrative: Patient is a 64-year-old female with history of chronic asthma, migraine, fibromyalgia, anxiety and depression who came into the emergency department this time with complaints increased swelling in her legs and shortness of breath. Patient has had numerous ER visits over the last couple months related to respiratory complaints. She was admitted to hospital observation from February 23 to February 24 for dyspnea and recent onset edema in legs. Her echocardiogram indicated normal LVEF with low right atrial pressure, mild to moderate TR, and mild to moderate pulmonary hypertension. Her asthma seems stable. We determine she had fluid retention secondary to recent 1 month course of oral methylprednisolone. She was diuresed overnight with improvement in dyspnea and peripheral edema and able to discharge home. Patient has furosemide ordered as needed and states she has been taking it but feels that her leg swelling has gotten worse. Current ER workup was also notable for worsening anemia with hemoglobin of 7.6 and hematocrit of 23.6 and guaiac-positive stool. At time of last admission we had noted she has a chronic iron deficiency anemia which had developed since September of 2019 when her hematocrit was 37.3. The anemia has been gradually worsening. She had EGD on 01/29/[address] Clifford which showed a large hiatal hernia but no source of obvious bleed. She has apparently discussed hiatal hernia repair with Dr. Clifford. Her last colonoscopy was 5 years ago with reportedly benign polyp. She has not had any coffee-ground emesis, melena or bright red blood per rectum. Patient History Medical History Anemia Anxiety Asthma Chronic back pain Chronic cough Depression Femur fracture, left Fibromyalgia Fractures GERD (gastroesophageal reflux disease) Hiatal hernia Recurrent sinusitis Surgical History Anesthesia History of eye surgery (~1973) History of foot surgery History of hysterectomy (~1979) History of shoulder surgery (~2011) History of tonsillectomy (~1975) Hx of bilateral cataract extraction Family & Social History Family History Mother Heart disease Social History: household members none lives independently Yes caregiver/support person Yes: 3 afternoons per week Safety & Behavioral: Feels Safe in Current Yes Environment Tobacco & Substance use: Smoking Status Never smoker alcohol intake never alcohol intake frequency holiday/special occasion Substance Use Type does not use Meds Home Medications and Allergies Home Medications Medication Instructions Recorded Confirmed Type garlic oil 2 dose PO DIRECTED 09/20/18 03/02/20 History sennosides [senna] 17.2 mg PO BEDTIME PRN 09/20/18 03/02/20 History potassium chloride 20 mEq 10 meq PO DAILY PRN 10/29/18 03/02/20 History tablet,extended release ondansetron HCl 8 mg tablet 8 mg PO Q12H PRN #20 tab 01/07/19 03/02/20 Rx promethazine 25 mg tablet 25 mg PO Q8H PRN #12 tab 02/11/19 03/02/20 Rx levalbuterol tartrate 45 2 inhalation INHALATION BID gram 08/26/19 03/02/20 History mcg/actuation aerosol inhaler levalbuterol HCl 0.63 mg/3 mL 0.63 mg INHALATION Q8H PRN #90 ml 09/11/19 03/02/20 Rx solution for nebulization metoclopramide HCl 10 mg PO QID PRN 09/23/19 03/02/20 History methocarbamol 750 mg tablet 750 mg PO TID PRN #90 tab 09/29/19 03/02/20 Rx pramipexole 0.75 mg tablet 0.75 mg PO BEDTIME #90 tab 09/29/19 03/02/20 Rx diphenhydramine HCl [Benadryl] 75 mg PO DAILY PRN 10/26/19 03/02/20 History ketorolac [Sprix] 15.75 mg INTRANASAL Q6-8H PRN 10/26/19 03/02/20 History diazepam 5 mg tablet 5 mg PO BID PRN tab 12/12/19 03/02/20 History gabapentin 600 mg tablet 600 mg PO QID tab 12/12/19 03/02/20 History epinephrine 0.3 mg/0.3 mL 0.3 mg IM ONCE PRN #1 ea 01/01/20 03/02/20 Rx injection, auto-injector budesonide-formoterol HFA 80 2 puff INHALATION BID #10.2 gram 01/28/20 03/02/20 Rx mcg-4.5 mcg/actuation aerosol inhaler acetaminophen 1,000 mg PO Q6H PRN 02/10/20 03/02/20 History mirtazapine 7.5 mg PO BEDTIME 02/10/20 03/02/20 History omeprazole 40 mg PO BID 02/10/20 03/02/20 History oxycodone 5 mg PO QID PRN 02/10/20 03/02/20 History budesonide 32 mcg/actuation nasal 1 spray INTRANASAL DAILY #8.43 ml 02/23/20 03/02/20 Rx spray montelukast 10 mg tablet 10 mg PO BEDTIME PRN #90 tab 02/23/20 03/02/20 Rx rizatriptan 10 mg tablet 10 mg PO .COMPLEX PRN #12 tab 02/23/20 03/02/20 Rx sumatriptan succinate 100 mg tablet 100 mg PO ONCE PRN #14 tab 02/23/20 03/02/20 Rx Trintellix 10 mg PO BEDTIME 02/24/20 03/02/20 History furosemide [Lasix] 20 mg PO DAILY PRN 02/24/20 03/02/20 History lidocaine 1 applic TOPICAL TID PRN 02/24/20 03/02/20 History ibuprofen 800 mg PO Q8H PRN 03/02/20 03/02/20 History ketotifen fumarate [Zaditor] 1 drp OPHTHALMIC (EYE) BID 03/02/20 03/02/20 History sumatriptan succinate 6 mg SUBCUT PRN PRN 03/02/20 03/02/20 History Allergies Allergy/AdvReac Type Severity Reaction Status Date / Time latex Allergy Severe Rash Verified 03/01/20 02:15 morphine [MORPHINE] Allergy Severe Anaphylaxis Verified 03/01/20 02:15 Penicillins [PENICILLINS] Allergy Severe Anaphylaxis Verified 03/01/20 02:15 Sulfa (Sulfonamide Allergy Severe RASH Verified 03/01/20 02:15 Antibiotics) [SULFA (SULFONAMIDE ANTIBIOTICS)] azithromycin Allergy Intermediate Rash Verified 03/01/20 02:15 [From ZITHROMAX Z-MARILYN] cefuroxime [From Ceftin] Allergy Intermediate Rash Verified 03/01/20 02:15 sulfamethoxazole Allergy Intermediate RASH Verified 03/01/20 02:15 [From SEPTRA] trimethoprim [From SEPTRA] Allergy Intermediate RASH Verified 03/01/20 02:15 ciprofloxacin [From Cipro] Allergy Pt does Verified 03/01/20 02:15 not remember reaction Corticosteroids Allergy Swelling Verified 03/01/20 02:15 (Glucocorticoids) of Lip/Tongue/Throat cephalexin [From Keflex] AdvReac Severe Fever, Verified 03/01/20 02:15 Asthma, Tachycardia prednisone AdvReac Severe nausea and Verified 03/01/20 02:15 feels very weak, and axious verapamil AdvReac Intermediate Asthma Verified 03/01/20 02:15 symptoms zonisamide AdvReac Intermediate Asthma Verified 03/01/20 02:15 symptoms Review of Systems Review of Systems ROS: Yes All systems reviewed with the patient and are negative except as otherwise documented Exam Vital Signs (past 8 hours): - 03/02/20 04:15 03/02/20 04:17 03/02/20 04:30 Temperature 97.1 F L Pulse Rate 95 H 94 H Respiratory Rate 18 28 H 28 H Blood Pressure 122/60 106/52 L Pulse Oximetry 98 98 96 03/02/20 05:00 03/02/20 05:30 03/02/20 05:31 Temperature Pulse Rate 90 89 87 Respiratory Rate 35 H 42 H 27 H Blood Pressure 104/55 L 105/84 Pulse Oximetry 98 95 95 03/02/20 06:00 03/02/20 08:03 03/02/20 09:58 Temperature 98.0 F Pulse Rate 87 86 92 H Respiratory Rate 26 H 22 16 Blood Pressure 106/56 L 148/70 H Pulse Oximetry 95 98 98 Oxygen Delivery Method Room Air Oxygen Flow Rate 0 Narrative Exam Narrative: General: Alert well-developed and well-nourished female in no acute distress HEENT: Anicteric, pupils equal, oropharynx unremarkable Neck: Supple without lymphadenopathy Lungs: Breathing nonlabored, clear to auscultation Heart: Regular rhythm without murmur Abdomen: Soft, nontender, no HSM Extremities: Bilateral 3+ pitting edema with chronic venous stasis changes in lower extremities Neurological: Alert, well oriented, speech normal, affect normal, nonfocal Objective Labs Result Diagrams: 03/02/20 05:18 03/02/20 05:18 Labs: Laboratory Results - last 24 hr 03/02/20 03/02/20 03/02/20 05:18 05:18 05:18 WBC 8.0 RBC 3.05 L Hgb 7.6 L Hct 23.6 L MCV 77.2 L MCH 25.0 L MCHC 32.4 RDW 17.0 H Plt Count 356 Neut % (Auto) 64.3 Lymph % (Auto) 23.6 L [place] % (Auto) 8.3 Eos % (Auto) 2.8 Baso % (Auto) 1.0 Neut # (Auto) 5100 Lymph # (Auto) 1900 [place] # (Auto) 700 Eos # (Auto) 200 Baso # (Auto) 100 PT 10.5 INR 0.9 APTT 26 L D-Dimer 1540 H Sodium Potassium Chloride Carbon Dioxide BUN Creatinine Estimated GFR BUN/Creatinine Ratio Glucose Lactate Calcium Magnesium 2.1 Total Bilirubin AST ALT Alkaline Phosphatase Total Creatine Kinase 321 H CK-MB (CK-2) 4.36 H CK-MB (CK-2) Rel Index 1.4 L Troponin I < 0.012 Total Protein Albumin Globulin Albumin/Globulin Ratio Procalcitonin Nasal Screen MRSA (PCR) Blood Type Antibody Screen 03/02/20 03/02/20 03/02/20 05:18 05:18 05:18 WBC RBC Hgb Hct MCV MCH MCHC RDW Plt Count Neut % (Auto) Lymph % (Auto) [place] % (Auto) Eos % (Auto) Baso % (Auto) Neut # (Auto) Lymph # (Auto) [place] # (Auto) Eos # (Auto) Baso # (Auto) PT INR APTT D-Dimer Sodium 136 L Potassium 3.8 Chloride 107 Carbon Dioxide 25 BUN 19 H Creatinine 0.78 Estimated GFR > 60.0 BUN/Creatinine Ratio 24.4 H Glucose 135 H Lactate 1.1 Calcium 8.9 Magnesium Total Bilirubin 0.1 L AST 44 H ALT 29 Alkaline Phosphatase 88 Total Creatine Kinase CK-MB (CK-2) CK-MB (CK-2) Rel Index Troponin I Total Protein 5.9 L Albumin 3.4 L Globulin 2.5 Albumin/Globulin Ratio 1.4 Procalcitonin < 0.05 Nasal Screen MRSA (PCR) Blood Type Antibody Screen 03/02/20 03/02/20 05:18 08:00 WBC RBC Hgb Hct MCV MCH MCHC RDW Plt Count Neut % (Auto) Lymph % (Auto) [place] % (Auto) Eos % (Auto) Baso % (Auto) Neut # (Auto) Lymph # (Auto) [place] # (Auto) Eos # (Auto) Baso # (Auto) PT INR APTT D-Dimer Sodium Potassium Chloride Carbon Dioxide BUN Creatinine Estimated GFR BUN/Creatinine Ratio Glucose Lactate Calcium Magnesium Total Bilirubin AST ALT Alkaline Phosphatase Total Creatine Kinase CK-MB (CK-2) CK-MB (CK-2) Rel Index Troponin I Total Protein Albumin Globulin Albumin/Globulin Ratio Procalcitonin Nasal Screen MRSA (PCR) Negative for mrsa Blood Type A Positive Antibody Screen Negative Assessment & Plan Assessment & Plan narrative: Patient is a 64-year-old female with history of chronic asthma, migraine, fibromyalgia, anxiety and depression who came into the emergency department this time with complaints increased swelling in her legs and shortness of breath and found to have worsening anemia. 1. Chronic blood loss anemia -patient with gradually worsening anemia since September 2019, takes ibuprofen, already on omeprazole -consult Dr. Castro for endoscopy 2. Venous stasis edema, chronic -patient with significant pitting edema in legs likely venous stasis, CHF ruled out with recent echo, no kidney or liver issues -Lasix 40 mg IV q.day -monitor BUN, creatinine, lytes -order compression stockings once edema sufficiently improved with diuresis 3. Chronic asthma, stable -use inhalers per home routine 4. Chronic migraines -meds per home routine DVT prophylaxis: SCDs
[2020-03-02] MEDS: IRON SUCROSE 200 MG in SODIUM CHLORIDE 0.9% 100 ML 220 ML IV (12:12)
[2020-03-02] MEDS: ACETAMINOPHEN 325 MG TABLET 650 MG PO (12:12)
[2020-03-02] MEDS: methocarbamoL 500 MG TABLET 750 MG PO ×2 (12:13→20:25)
[2020-03-02] MEDS: POTASSIUM CHLORIDE 20 MEQ TAB 40 MEQ PO (12:13)
[2020-03-02] MEDS: FUROSEMIDE 40 MG/4 ML VIAL IV (12:13)
[2020-03-02] MEDS: LEVALBUTEROL 0.63 MG/3 ML NEB INH ×2 (12:59→20:54)
--- NOTE | 2020-03-02 13:24 | PC.ADMIT ---
[email or web address] Admission Note: The patient,Sheryl Lennon,64 y/o, was given written information regarding hospital policies, unit procedures and contact persons. Patient's smoking status: Never smoker. Vital Signs - 8 hr 03/02/20 05:30 03/02/20 05:31 03/02/20 06:00 Temperature Pulse Rate 89 87 87 Respiratory Rate 42 H 27 H 26 H Blood Pressure 105/84 106/56 L Pulse Oximetry 95 95 95 03/02/20 08:03 03/02/20 09:58 03/02/20 12:03 Temperature 98.0 F 98.8 F Pulse Rate 86 92 H 95 H Respiratory Rate 22 16 24 Blood Pressure 148/70 H 132/63 Pulse Oximetry 98 98 96 03/02/20 13:13 Temperature Pulse Rate 87 Respiratory Rate 16 Blood Pressure Pulse Oximetry 97 Pt admitted to 229 floor care/obs. AO x4 and making needs known with clear speech. Reports shortness of breath on exertion. SPO2 96% and greater on RA. Lungs CTAB. SR on tele. Chronic LE edema noted. Pt is very concerned about this. Reports LBM this AM and describes it as normal, soft/brown. Tolerating clear liquid diet, no n/v. No further stooling thus far. Up independently in room. Using call light appropriately. Oriented to room/routine, environment, fall risk, use of call light. She verbalizes understanding.
--- NOTE | 2020-03-02 13:34 | PC.NURSE ---
Spoke with Dr. Encarnacion. Clarified if pt was supposed to be on telemetry (initially ordered and then stopped). Dr. Encarnacion states telemetry not necessary. Will remove.
--- NOTE | 2020-03-02 14:21 | P.CONS_ITS ---
History of Present Illness Consult details Date Patient Seen: 03/02/20 Time Patient Seen: 14:22 Chief complaint: Edema/ SOB Narrative: 64F admitted to the hospital for lower extremity edema and dyspnea. Consulted for GI bleed. At admission found to have heme positive stool, Hct 24 from baseline 36. hemodynamically stable. Last colonoscopy 5 yrs ago reportedly benign polyp last exam. Had an EGD 1 month ago demonstrated hiatal hernia no ulcers. No personal or family history of malignancy. Meds Home Medications and Allergies Home Medications Medication Instructions Recorded Confirmed Type garlic oil 2 dose PO DIRECTED 09/20/18 03/02/20 History sennosides [senna] 17.2 mg PO BEDTIME PRN 09/20/18 03/02/20 History potassium chloride 20 mEq 10 meq PO DAILY PRN 10/29/18 03/02/20 History tablet,extended release ondansetron HCl 8 mg tablet 8 mg PO Q12H PRN #20 tab 01/07/19 03/02/20 Rx promethazine 25 mg tablet 25 mg PO Q8H PRN #12 tab 02/11/19 03/02/20 Rx levalbuterol tartrate 45 2 inhalation INHALATION BID gram 08/26/19 03/02/20 History mcg/actuation aerosol inhaler levalbuterol HCl 0.63 mg/3 mL 0.63 mg INHALATION Q8H PRN #90 ml 09/11/19 03/02/20 Rx solution for nebulization metoclopramide HCl 10 mg PO QID PRN 09/23/19 03/02/20 History methocarbamol 750 mg tablet 750 mg PO TID PRN #90 tab 09/29/19 03/02/20 Rx pramipexole 0.75 mg tablet 0.75 mg PO BEDTIME #90 tab 09/29/19 03/02/20 Rx diphenhydramine HCl [Benadryl] 75 mg PO DAILY PRN 10/26/19 03/02/20 History ketorolac [Sprix] 15.75 mg INTRANASAL Q6-8H PRN 10/26/19 03/02/20 History diazepam 5 mg tablet 5 mg PO BID PRN tab 12/12/19 03/02/20 History gabapentin 600 mg tablet 600 mg PO QID tab 12/12/19 03/02/20 History epinephrine 0.3 mg/0.3 mL 0.3 mg IM ONCE PRN #1 ea 01/01/20 03/02/20 Rx injection, auto-injector budesonide-formoterol HFA 80 2 puff INHALATION BID #10.2 gram 01/28/20 03/02/20 Rx mcg-4.5 mcg/actuation aerosol inhaler acetaminophen 1,000 mg PO Q6H PRN 02/10/20 03/02/20 History mirtazapine 7.5 mg PO BEDTIME 02/10/20 03/02/20 History omeprazole 40 mg PO BID 02/10/20 03/02/20 History oxycodone 5 mg PO QID PRN 02/10/20 03/02/20 History budesonide 32 mcg/actuation nasal 1 spray INTRANASAL DAILY #8.43 ml 02/23/20 03/02/20 Rx spray montelukast 10 mg tablet 10 mg PO BEDTIME PRN #90 tab 02/23/20 03/02/20 Rx rizatriptan 10 mg tablet 10 mg PO .COMPLEX PRN #12 tab 02/23/20 03/02/20 Rx sumatriptan succinate 100 mg tablet 100 mg PO ONCE PRN #14 tab 02/23/20 03/02/20 Rx Trintellix 10 mg PO BEDTIME 02/24/20 03/02/20 History furosemide [Lasix] 20 mg PO DAILY PRN 02/24/20 03/02/20 History lidocaine 1 applic TOPICAL TID PRN 02/24/20 03/02/20 History ibuprofen 800 mg PO Q8H PRN 03/02/20 03/02/20 History ketotifen fumarate [Zaditor] 1 drp OPHTHALMIC (EYE) BID 03/02/20 03/02/20 History sumatriptan succinate 6 mg SUBCUT PRN PRN 03/02/20 03/02/20 History Allergies Allergy/AdvReac Type Severity Reaction Status Date / Time latex Allergy Severe Rash Verified 03/01/20 02:15 morphine [MORPHINE] Allergy Severe Anaphylaxis Verified 03/01/20 02:15 Penicillins [PENICILLINS] Allergy Severe Anaphylaxis Verified 03/01/20 02:15 Sulfa (Sulfonamide Allergy Severe RASH Verified 03/01/20 02:15 Antibiotics) [SULFA (SULFONAMIDE ANTIBIOTICS)] azithromycin Allergy Intermediate Rash Verified 03/01/20 02:15 [From ZITHROMAX Z-MARILYN] cefuroxime [From Ceftin] Allergy Intermediate Rash Verified 03/01/20 02:15 sulfamethoxazole Allergy Intermediate RASH Verified 03/01/20 02:15 [From SEPTRA] trimethoprim [From SEPTRA] Allergy Intermediate RASH Verified 03/01/20 02:15 ciprofloxacin [From Cipro] Allergy Pt does Verified 03/01/20 02:15 not remember reaction Corticosteroids Allergy Swelling Verified 03/01/20 02:15 (Glucocorticoids) of Lip/Tongue/Throat cephalexin [From Keflex] AdvReac Severe Fever, Verified 03/01/20 02:15 Asthma, Tachycardia prednisone AdvReac Severe nausea and Verified 03/01/20 02:15 feels very weak, and axious verapamil AdvReac Intermediate Asthma Verified 03/01/20 02:15 symptoms zonisamide AdvReac Intermediate Asthma Verified 03/01/20 02:15 symptoms Review of Systems Review of Systems ROS: Yes All systems reviewed with the patient and are negative except as otherwise documented Exam Vital Signs (past 8 hours): - 03/02/20 08:03 03/02/20 09:58 03/02/20 12:03 Temperature 98.0 F 98.8 F Pulse Rate 86 92 H 95 H Respiratory Rate 22 16 24 Blood Pressure 148/70 H 132/63 Pulse Oximetry 98 98 96 03/02/20 13:13 Temperature Pulse Rate 87 Respiratory Rate 16 Blood Pressure Pulse Oximetry 97 Oxygen Delivery Method Room Air Oxygen Flow Rate 0 Narrative Exam Narrative: General-no acute distress, obese female HEENT-moist mucous membranes, no scleral icterus Neck-supple, no lymphadenopathy Chest- non labored respirations Cardiac-regular rate bilateral lower extremity edema Abdomen-soft, nontender, non distended Extremities-warm, well perfused Neurological-alert and oriented, no focal deficits Objective Labs Result Diagrams: 03/02/20 05:18 03/02/20 05:18 Labs: Laboratory Results - last 24 hr 03/02/20 03/02/20 03/02/20 05:18 05:18 05:18 WBC 8.0 RBC 3.05 L Hgb 7.6 L Hct 23.6 L MCV 77.2 L MCH 25.0 L MCHC 32.4 RDW 17.0 H Plt Count 356 Neut % (Auto) 64.3 Lymph % (Auto) 23.6 L [place] % (Auto) 8.3 Eos % (Auto) 2.8 Baso % (Auto) 1.0 Neut # (Auto) 5100 Lymph # (Auto) 1900 [place] # (Auto) 700 Eos # (Auto) 200 Baso # (Auto) 100 PT 10.5 INR 0.9 APTT 26 L D-Dimer 1540 H Sodium Potassium Chloride Carbon Dioxide BUN Creatinine Estimated GFR BUN/Creatinine Ratio Glucose Lactate Calcium Magnesium 2.1 Total Bilirubin AST ALT Alkaline Phosphatase Total Creatine Kinase 321 H CK-MB (CK-2) 4.36 H CK-MB (CK-2) Rel Index 1.4 L Troponin I < 0.012 Total Protein Albumin Globulin Albumin/Globulin Ratio Procalcitonin Nasal Screen MRSA (PCR) Blood Type Antibody Screen 03/02/20 03/02/20 03/02/20 05:18 05:18 05:18 WBC RBC Hgb Hct MCV MCH MCHC RDW Plt Count Neut % (Auto) Lymph % (Auto) [place] % (Auto) Eos % (Auto) Baso % (Auto) Neut # (Auto) Lymph # (Auto) [place] # (Auto) Eos # (Auto) Baso # (Auto) PT INR APTT D-Dimer Sodium 136 L Potassium 3.8 Chloride 107 Carbon Dioxide 25 BUN 19 H Creatinine 0.78 Estimated GFR > 60.0 BUN/Creatinine Ratio 24.4 H Glucose 135 H Lactate 1.1 Calcium 8.9 Magnesium Total Bilirubin 0.1 L AST 44 H ALT 29 Alkaline Phosphatase 88 Total Creatine Kinase CK-MB (CK-2) CK-MB (CK-2) Rel Index Troponin I Total Protein 5.9 L Albumin 3.4 L Globulin 2.5 Albumin/Globulin Ratio 1.4 Procalcitonin < 0.05 Nasal Screen MRSA (PCR) Blood Type Antibody Screen 03/02/20 03/02/20 05:18 08:00 WBC RBC Hgb Hct MCV MCH MCHC RDW Plt Count Neut % (Auto) Lymph % (Auto) [place] % (Auto) Eos % (Auto) Baso % (Auto) Neut # (Auto) Lymph # (Auto) [place] # (Auto) Eos # (Auto) Baso # (Auto) PT INR APTT D-Dimer Sodium Potassium Chloride Carbon Dioxide BUN Creatinine Estimated GFR BUN/Creatinine Ratio Glucose Lactate Calcium Magnesium Total Bilirubin AST ALT Alkaline Phosphatase Total Creatine Kinase CK-MB (CK-2) CK-MB (CK-2) Rel Index Troponin I Total Protein Albumin Globulin Albumin/Globulin Ratio Procalcitonin Nasal Screen MRSA (PCR) Negative for mrsa Blood Type A Positive Antibody Screen Negative Assessment & Plan Assessment & Plan narrative: 64F admitted for dyspnea and edema has chronic anemia and guiac positive stool. Colonoscopy is indicated EGD was normal 1 month ago. Technical details were discussed. Procedural risks including bleeding, infection, missed diagnosis intestinal perforation were discussed. Will schedule for 03/04 -Clear liquid diet today and tomorrow -Bowel prep tomorrow
[2020-03-02] MEDS: PRAMIPEXOLE 0.25 MG TABLET 0.75 MG PO (20:25)
[2020-03-02] MEDS: MIRTAZAPINE 7.5 MG TABLET PO (20:25)
[2020-03-02] MEDS: SODIUM CHLORIDE 0.9% FLUSH 10 ML IV (20:26)
[2020-03-02] MEDS: LIDOCAINE 5% OINT 35 GM 1 APPLIC TOP (20:32)
[2020-03-03] VITALS (7 sets, daily range): BP systolic 119–152; BP diastolic 58–74; PULSE 74–95; RESP 16–20; TEMP 36.2–37.1; O2SAT 94–97
[2020-03-03 04:54] LABS: Add Manual Diff / Slide Review NO; Basophils Absolute Auto 100 /uL (0-100); Basophils Percent Auto 1.4 % (0-2); Eosinophils Absolute Auto 300 /uL (0-450); Eosinophils Percent Auto 3.7 % (2-4); Hematocrit 23.4 % (36-46); Hemoglobin 7.6 g/dL (12.0-16.0); Lymphocytes Absolute Auto 2200 /uL (1100-4500); Lymphocytes Percent Auto 29.4 % (25-40); Mean Corpuscular HGB Conc 32.3 % (30-36); Mean Corpuscular Hemoglobin 24.6 PG (26-34); Monocytes Absolute Auto 600 /uL (0-900); Monocytes Percent Auto 8.3 % (3-14); Neutrophils Absolute Auto 4200 /uL (1500-7000); Neutrophils Percent Auto 57.2 % (50-75); Platelet Count 350 X10^3/uL (150-400); Red Blood Cell Count 3.08 X10^6/uL (4.0-5.2); Red Cell Distribution Width 17.2 % (11.6-14.8); White Blood Cell Count 7.3 X10^3/uL (4.5-11.0)
[2020-03-03] MEDS: LEVALBUTEROL 0.63 MG/3 ML NEB INH (05:00)
[2020-03-03] MEDS: SUMAtriptan 25 MG TABLET 100 MG PO (05:07)
[2020-03-03] MEDS: OXYCODONE IR 5 MG TABLET PO ×3 (05:07→20:56)
--- NOTE | 2020-03-03 06:45 | PC.NURSE ---
Mechanic Chief Note-Patient slept throughout the night, woke for am lab draw, H/H 7.6/23.4, no s/s bleeding, no stools. oxycodone given for pain all over Imitrex given for c/o migraine, ice pack placed to LAC for hardness and itching IV site replaced, neb tx given per request, SpO2 96% on RA, LS CTA, does have occasional soft audible wheezes during activity.
[2020-03-03] MEDS: LEVALBUTEROL HFA 200 PUFF INH INH ×2 (09:17→20:05)
[2020-03-03] MEDS: ACETAMINOPHEN 325 MG TABLET 650 MG PO (09:54)
[2020-03-03] MEDS: GABAPENTIN 600 MG TABLET PO ×3 (09:54→20:56)
[2020-03-03] MEDS: diazePAM 5 MG TABLET PO ×2 (09:54→20:56)
[2020-03-03] MEDS: PANTOPRAZOLE 40 MG TABLET PO ×2 (09:54→20:56)
[2020-03-03] MEDS: methocarbamoL 500 MG TABLET 750 MG PO (09:54)
[2020-03-03] MEDS: FUROSEMIDE 40 MG/4 ML VIAL IV (10:53)
[2020-03-03] MEDS: POTASSIUM CHLORIDE 20 MEQ TAB 40 MEQ PO (10:53)
[2020-03-03] MEDS: PEG3350/SOD SULF,BICARB,CL/KCL 4,000 ML SOLUTION 4000 ML PO (10:53)
[2020-03-03] MEDS: SODIUM CHLORIDE 0.9% FLUSH 10 ML IV ×2 (10:54→20:57)
--- NOTE | 2020-03-03 11:47 | P.PN_ITS ---
Subjective Subjective Date Patient Seen: 03/03/20 Interval history: Patient is a 64-year-old female with history of chronic asthma, migraine, fibromyalgia, anxiety and depression who came into the emergency department this time with complaints increased swelling in her legs and shortness of breath and found to have worsening anemia. 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 She requests a sedative for the anxiety. Her hemoglobin is stable. She drank over 4 L of fluid yesterday which has become apparent as the main contributor to her peripheral edema. When I asked her about her fluid intake she denied drinking more than few glasses a day but it was confirmed with recorded intake as well as nurse taking care of her. Exam Vital Signs (past 8 hours): - 03/03/20 04:47 03/03/20 05:30 03/03/20 08:00 Temperature 97.4 F L 97.1 F L Pulse Rate 84 77 Respiratory Rate 20 18 Blood Pressure 119/63 125/58 L Pulse Oximetry 96 96 97 03/03/20 09:17 Temperature Pulse Rate 74 Respiratory Rate 16 Blood Pressure Pulse Oximetry 94 Oxygen Delivery Method Room Air Oxygen Flow Rate 0 Narrative Exam Narrative: General: Alert, anxious but otherwise NAD Lungs: Clear to auscultation Extremities: 3 to 4+ pitting lower extremities Objective Labs Result Diagrams: 03/03/20 04:40 03/02/20 05:18 Labs: Laboratory Results - last 24 hr 03/03/20 04:40 WBC 7.3 RBC 3.08 L Hgb 7.6 L Hct 23.4 L MCV 76.0 L MCH 24.6 L MCHC 32.3 RDW 17.2 H Plt Count 350 Neut % (Auto) 57.2 Lymph % (Auto) 29.4 [place] % (Auto) 8.3 Eos % (Auto) 3.7 Baso % (Auto) 1.4 Neut # (Auto) 4200 Lymph # (Auto) 2200 [place] # (Auto) 600 Eos # (Auto) 300 Baso # (Auto) 100 PFSH Medical History Anemia Anxiety Asthma Chronic back pain Chronic cough Depression Femur fracture, left Fibromyalgia Fractures GERD (gastroesophageal reflux disease) Hiatal hernia Recurrent sinusitis Surgical History Anesthesia History of eye surgery (~1973) History of foot surgery History of hysterectomy (~1979) History of shoulder surgery (~2011) History of tonsillectomy (~1975) Hx of bilateral cataract extraction Family History Mother Heart disease Social History marital status: number of children: 1 household members: none lives independently: Yes caregiver/support person: Yes (3 afternoons per week) pets and animals: Yes occupational status: disabled Smoking Status: Never smoker alcohol intake: never substance use type: does not use Assessment & Plan Assessment & Plan narrative: Patient is a 64-year-old female with history of chronic asthma, migraine, fibromyalgia, anxiety and depression who came into the emergency department this time with complaints increased swelling in her legs a nd shortness of breath and found to have worsening anemia. 1. Chronic blood loss anemia -patient with gradually worsening anemia since September 2019, takes ibuprofen, already on omeprazole -had EGD in January 2020 -colonoscopy with Dr. aCstro scheduled for 2. Venous stasis edema, chronic -patient with significant pitting edema in legs due to venous stasis and excessive fluid intake; CHF ruled out with recent echo, negative venous duplex ultrasound, no kidney or liver issues -Lasix 40 mg IV q.day -patient encouraged to cut down on daily fluid intake -monitor BUN, creatinine, lytes -order compression stockings once edema sufficiently improved with diuresis 3. Chronic asthma, stable -use inhalers per home routine 4. Chronic migraines -meds per home routine 5. Acute on chronic anxiety -patient has outpatient therapy -lorazepam 1 mg p.o. x1 to facilitate care, Vistaril 25 mg p.o. q.6 hours as needed 6. Acute dermatitis secondary to peripheral IV -she has mild rash on the left antecubital -ordered topical hydrocortisone 1% t.i.d. as needed DVT prophylaxis: SCDs Patient remains under hospital observation and likely will be able to discharge home after her colonoscopy tomorrow.
--- NOTE | 2020-03-03 11:47 | CM.DANOTE ---
DCP: Case received, EMR reviewed and met with patient. Introduced self and role. Was able to obtain information from patient regarding her baseline activity status as well as current living situation prior to hospitalization. DCP assessment completed with information currently available. Patient is a 64 year old female who admitted yesterday to the care of the hospitalist team. PCP: Dr. Saldaña. Payer: confirmed: [employer]. Patient came to the hospital via private vehicle secondary to weakness and dyspnea. Patient has history of asthma, as well as Fibromyalgia and anxiety. She holds current diagnosis of GI bleed/potential rectal mass. Patient had surgery consult today, and is expected to have colonoscopy here tomorrow. She is on a clear liquid diet with bowel prep. Met with patient in her room. She was sitting up in bed, anxious. She is concerned about finding someone to watch her dog. She was going to contact her grand children to see if they can assist. Confirmed that patient resides here in [place], alone. Stated that she has a daughter that has cancer, and grand children that work. Patient stated that she is independent at baseline, uses no DME supplies, and drives. Stated, even though I have fibramyalgia, I try not it stop me from being active. P: DCP to continue to follow for any needs. Plan is for patient to have her colonoscopy here tomorrow at the hospital before discharge. Lily Cárdenas RN/Mobile Manager
[2020-03-03 12:07] LABS: Blood Urea Nitrogen 14 mg/dL (7-17); Calcium 8.8 mg/dL (8.4-10.2); Carbon Dioxide 28 mmol/L (22-32); Chloride 102 mmol/L (98-107); Estimated Glomerular Filt Rate > 60.0 mL/min (>60); Glucose 92 mg/dL (80-110); HEMOLYSIS < 15 (0-50); Potassium 4.4 mmol/L (3.4-5.1); Sodium 131 mmol/L (137-145)
[2020-03-03] MEDS: LORazepam 1 MG TABLET PO (12:08)
[2020-03-03] MEDS: hydrOXYzine pamoate 25 MG CAPSULE PO ×2 (12:08→20:56)
[2020-03-03] MEDS: HYDROCORTISONE 1% CREAM 28 GM 1 APPLIC TOP ×2 (12:11→20:57)
--- NOTE | 2020-03-03 13:27 | PC.NURSE ---
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 Attempted to help pt explore options (ie, calling family member/neighbor for assistance). Pt declined stating she did not want to involve her family. She requested to wait on starting bowel prep and taking IV lasix until she figured out what she would do with her dog, since she may need to leave the hospital. She c/o significant anxiety. I'm falling apart. Adminstered PRN valium and reassessment revealed no change in anxiety level. Spoke with Dr. Encarnacion who then rounded on pt. Orders received and implemented with good affect. After rounds, pt was agreeable to beginning bowel prep and taking lasix. Provided education to pt regarding limiting her mealtime/free water PO fluid intake due to her BLE edema. She verbalizes understanding.
--- NOTE | 2020-03-03 13:41 | PM.CHAP ---
Staff referral. Delightful conversation. Pt very relieved that a friend is watching her dog. Pt. shared that care for her dog and living alone complicate her medical care but that her dog is a very important part of her support. Suggested that Pt arrange for a friend to drive her home after her procedure on . Shared encouragement and prayer. Kuldip Diamond [phone]
[2020-03-03] MEDS: PRAMIPEXOLE 0.25 MG TABLET 0.75 MG PO (20:55)
[2020-03-03] MEDS: MIRTAZAPINE 7.5 MG TABLET PO (20:56)
--- NOTE | 2020-03-03 21:21 | PC.NURSE ---
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 This nurse explained to her that the main focus of our care at this time is to locate the reason for the blood in her stool and the low hemoglobin/hematocrit lab results. Pt states that she understands but is unclear why no one has talked to her about her edema, when her PCP indicated to her that this would be addressed by the hospital. This nurse explained what the plan for her care was several times and pt stated that she understood, then would call this nurse back into her room stating she is just so upset and angry that we are not addressing her problems. This nurse explained to her what the plan was for her care, and she stated that she understood, but she was not happy that we are not addressing what she see's as the problem. I explained that the edema problem could be addressed as an outpatient in her PCP office. Pt stated that she understands that, but she feels that the edema is the problem, this nurse stated the more Acute problem is the fact that she has a bleed somewhere that needs to be addressed first. Pt stated that she understood, after exiting the room patient called this nurse back to her room stating that she wants to talk to the person in charge of the hospital, this nurse called the charge nurse Muna White RN to come and talk to the patient. Bed low and locked, pt able to use call light appropriately will continue monitor.
[2020-03-04] VITALS (12 sets, daily range): BP systolic 107–142; BP diastolic 61–84; PULSE 82–100; RESP 14–24; TEMP 35.9–37.2; O2SAT 93–97; BMI 39.9
[2020-03-04] MEDS: SUMAtriptan 25 MG TABLET 100 MG PO ×3 (00:49→13:05)
[2020-03-04] MEDS: methocarbamoL 500 MG TABLET 750 MG PO ×2 (00:49→09:16)
[2020-03-04] MEDS: OXYCODONE IR 5 MG TABLET PO ×2 (01:21→09:15)
[2020-03-04] MEDS: HYDROCORTISONE 1% CREAM 28 GM 1 APPLIC TOP (01:25)
[2020-03-04] MEDS: LEVALBUTEROL 0.63 MG/3 ML NEB INH ×3 (01:44→13:31)
--- NOTE | 2020-03-04 02:10 | PC.NURSE ---
Addendum entered by Diana Hawkins R.N. 03/04/20 04:35: At 0310 patient put her call light on, she was fully dressed, angry, and states I am leaving Michel TALAVERA and myself attempt to have her stay. She was agitated and becoming tearful, continued to c/o of throat swelling I know I need some Benadryl. No edema, strider, or respiratory distress noted. PO Vistaril offered per prn order, then she was agreeable to stay. Spent time in the room, allowing her to talk and express her worries and concerns. She commented frequently about family just doesn't care about me She says she does video chat occasionally with a therapist. She was in bed with 1/2 cup ice on night stand, turned out lights at 0430. Addendum entered by Diana Hawkins R.N. 03/04/20 02:47: Patient used call light to report swelling in throat and dry mouth requesting ice chips and Benadryl No swelling noted by this RN, no strider or respiratory distress, voice is clear. Discussed rational for nothing by mouth after midnight status as ordered, swabs have been given. She states I demand to speak with someone about getting some Benadryl I informed Michel TALAVERA of her request, he went in room to see her, he allowed to to have 1/2 cup of ice to sooth her throat. I went in room to give her the ice, she was reclined in the bed as previous, all three ice bags that were given had been thrown against the far wall where the TV is mounted, this RN told her what I had for her, she did not answer back. Original Note: Night Notes-Patient had been sleeping until 0100 when she woke to use BR, voided clear yellow urine, no stool, gait steady. C/O ''migraine rubbing her head, Imitrex and Robaxin given per request. Oxycodone given for fibromyalgia pain per prn orders. Rt neb tx given per her request for c/o shortness of breath SpO2 96% on RA, RR 16, lung sounds CTA throughout. C/o IV site throbbing and swollen, SL in Lt hand inspected, patent, no erythema or edema noted, redressed and ice packs applied. Hydrocortizone cream applied to mild erythema to LAC and LFA for c/o itching. Ice packs applied to posterior neck for discomfort, BLEs elevated on pillows, patient able to reposition on own, VSS.
--- NOTE | 2020-03-04 03:28 | PM.DS.1 ---
History of Present Illness History of Present Illness Date Patient Seen: 03/04/20 Time Patient Seen: 02:50 Chief complaint: Edema/ SOB Narrative: Admission H&P by Dr. Ricky Encarnacion: Patient is a 64-year-old female with history of chronic asthma, migraine disorder, fibromyalgia, anxiety and depression presented to emergency department with complaints worsening shortness of breath and edema. This appears to be her 5th ER visit since beginning of January. She feels her asthma is not adequately controlled. She sees Dr. Healy at [facility] for pulmonology. She has been compliant with her inhalers and nebulizer treatments but feels she is not getting enough relief. She has chronic cough and wheezing. She states she was on methylprednisolone for a month and stopped it about 10 days ago without tapering. She has recently noticed severe edema in her extremities which is not been a problem before. She states she was treated recently for pneumonia as an outpatient. Her chest x-ray from today's ER visit does not show pneumonia or other lung abnormalities. She also had a chest CTA on February 09 which did not show evidence of pulmonary embolism. She states she has not been able to walk her dog recently because she gets out of breath. She is also out of breath at rest. No chest pains. She had an echo in October last year which was unremarkable. Cardiac enzymes have been normal. ER physician recommended admission to observation due to patient's ongoing symptoms requiring frequent ER visits. On ER evaluation, her vitals were normal with pulse ox ranging from 93-96% on room air. Labs show normal CBC, procalcitonin, troponin. Labs are notable for significant anemia with hemoglobin of 8.1. On further review she has evidence of anemia developing since last fall. On October 13, 2019 her hemoglobin was normal at 12.3, in October it was 10.7, and it has subsequently gradually drifted down. Patient has not noted melena or rectal bleed. She does take ibuprofen. She had EGD done by Dr. Clifford on 01/29/2020 for evaluation large hiatal hernia. There were no other findings. Patient does feel the hiatal hernia pushes up into her chest and Effexor breathing. Discharge Providers Provider Date of admission: 03/02/20 06:13 Discharge Date: 03/04/20 Primary care physician: Oliver Saldaña MD Consults: 03/02/20 08:05 Consult to Physician Routine Comment: Consulting Provider: Wilson Castro Reason for consultation: GI BLEED Has provider been notified: Yes 03/03/20 23:21 Consult to BISTRO ATTENDANT - Security Systems Specialist Routine Comment: Anxiety, medical noncompliance BISTRO ATTENDANT Consult: Behavioral Health Assess Discharge provider: ILAN Mason Summary Hospital Course Discharge Diagnosis: 1. Chronic blood loss anemia. 2. Venous stasis edema, chronic. 3. Chronic asthma, stable. 4. Chronic migraines, stable 5. Chronic anxiety, stable. 6. Acute dermatitis secondary to peripheral IV. Hospital Course: Interval history: Patient is a 64-year-old female with history of chronic asthma, migraine, fibromyalgia, anxiety and depression who came into the emergency department this time with complaints increased swelling in her legs and shortness of breath and found to have worsening anemia since September of 2019. The patient has focal complaints on admission related to feeling that her asthma is and adequately managed and continues to have difficulty breathing. She feels her respiratory compromise impairs her ability to perform activities including walker dog which is integral to her life. Since admission the patient's hemoglobin has been stable at 7.6 g. The patient has been evaluated by surgery with expectation to go for a repeat endoscopy for which patient is now NPO further complicating the patient's frustration in not be able to take oral fluids. The patient states frustration that her leg edema is no better however on review intake and output for the previous day she consumed large volume of oral fluids producing an net intake and output balance of positive 4215 mL. There has been extensive patient education regarding the correlation with oral fluid consumption and peripheral edema that has not improved despite treatment with Lasix. At this time the patient is intolerant of NPO status. In regard to the patient's respiratory status she reports now that she has 3 blood bites on her left wrist and is now feels that her throat is tightening. The patient presents no stridor, no conversational dyspnea and is speaking freely in full sentences using no accessory muscles and does not present dyspnea with activity. The patient has been evaluated by respiratory therapy receiving respiratory treatments as needed. More recently patient complains skin eruptions at a website and reports of blood bites left wrist treated with hydrocortisone cream. The patient tonight states she believes she is having allergic reaction that her throat is closing without supporting clinical evidence. The patient has been extremely anxious at times expresses frustration at times, she has repeatedly requesting addition of multiple as needed medications. The patient states that she feels that she has been inadequately treated for the aforementioned problems. The patient has been assessed and reassessed multiple times with and treated as indicated no acute findings or indications that warrant addition of further treatments. The patient Has stated her desire to go home prior to endoscopy, plan per Dr. Castro was to be discharged home post endoscopy. Reviewed the plan of care with the patient with the rationale and the benefits of remaining for treatment and potential risks discharge however the patient is reticent on leaving. Patient will be discharged at her wish against medical advice. The patient is directed to use her routine medications as per her home routine and to follow-up with Dr. Saldaña her primary care provider within 7 days or she may return to the ER as needed for Any concerning problems or be evaluation. Exam Vital Signs (past 8 hours): - 03/03/20 21:30 03/04/20 00:49 03/04/20 01:00 Temperature 97.8 F 96.6 F L Pulse Rate 95 H 100 H Respiratory Rate 18 18 Blood Pressure 152/65 H 133/64 Pulse Oximetry 95 94 96 03/04/20 01:45 Temperature Pulse Rate 100 H Respiratory Rate 18 Blood Pressure Pulse Oximetry 94 Oxygen Delivery Method Room Air Oxygen Flow Rate 0 Narrative Exam Narrative: GENERAL APPEARANCE: well developed, well nourished, in no acute distress. HEENT: Normocephalic, PERRLA, conjunctiva clear, EOMs intact with case tracking bilaterally, no sinus tenderness to percussion, no rhinorrhea, mucous membranes are moist and pink without lesions or exudate, no tongue swelling, uvula midline, no posterior pharynx erythema. NECK/THYROID: neck supple and nontender to palpation, no swelling, no stridor no JVD, trachea midline. LYMPH NODES: no cervical or supraclavicular lymphadenopathy. SKIN: [place], warm and dry HEART: regular rate and rhythm, S1-S2, no murmur, no rubs or gallops, brisk capillary refill, 3+ pedal edema. LUNGS: clear to auscultation bilaterally, no coarseness crackles or wheezing, dry nonproductive cough present. CHEST: Symmetrical movement, no accessory muscle use, no retractions, good tidal volume no conversational dyspnea. ABDOMEN: Soft, protuberant EXTREMITIES: moves all extremities, strength is 5/5 and symmetrical, no peripheral cyanosis or clubbing NEUROLOGIC: AAO x 3, cranial nerves II-XII grossly intact. PSYCH: Agitated, irritable, confrontational. Objective Labs Result Diagrams: 03/03/20 04:40 03/03/20 04:40 Labs: Laboratory Results - last 24 hr 03/03/20 03/03/20 04:40 04:40 WBC 7.3 RBC 3.08 L Hgb 7.6 L Hct 23.4 L MCV 76.0 L MCH 24.6 L MCHC 32.3 RDW 17.2 H Plt Count 350 Neut % (Auto) 57.2 Lymph % (Auto) 29.4 [place] % (Auto) 8.3 Eos % (Auto) 3.7 Baso % (Auto) 1.4 Neut # (Auto) 4200 Lymph # (Auto) 2200 [place] # (Auto) 600 Eos # (Auto) 300 Baso # (Auto) 100 Sodium 131 L Potassium 4.4 Chloride 102 Carbon Dioxide 28 BUN 14 Creatinine 0.70 Estimated GFR > 60.0 BUN/Creatinine Ratio 20.0 Glucose 92 Calcium 8.8 [facility] Medical History Anemia Anxiety Asthma Chronic back pain Chronic cough Depression Femur fracture, left Fibromyalgia Fractures GERD (gastroesophageal reflux disease) Hiatal hernia Recurrent sinusitis Surgical History Anesthesia History of eye surgery (~1973) History of foot surgery History of hysterectomy (~1979) History of shoulder surgery (~2011) History of tonsillectomy (~1975) Hx of bilateral cataract extraction Family History Mother Heart disease Social History marital status: number of children: 1 household members: none lives independently: Yes caregiver/support person: Yes (3 afternoons per week) pets and animals: Yes occupational status: disabled Smoking Status: Never smoker alcohol intake: never substance use type: does not use Discharge Assessment & Plan Assessment and Plan Assessment: 1. Chronic worsening anemia 2. Bilateral lower extremity edema, not improving related to copious oral fluid intake. 3. Chronic asthma, stable 4. Chronic anxiety, labile behavior, non adnerence with medical plan of care. Plan of Treatment: The patient has chosen to leave prior to endoscopy to further evaluate source of persistent and progressive anemia. Review the risks of leaving this time including the risk of worsening anemia, worsening shortness of breath progressive weakness, heart attack, fall, injury or . The patient response acknowledges that information and is insistent on leaving. -follow-up up with your primary care provider for further monitoring and evaluation of her anemia and referral for outpatient endoscopy. -continue routine medications for asthma management. -follow-up with your associate software developer as needed. -continue Lasix 40 mg daily and limit oral fluids to reduce leg swelling, prescription sent to [facility]. -return for any concerning symptoms pain or problems. Discharge Plan Discharge Plan Patient Disposition: Home Provider Discharge Comment: The patient is discharged at her request prior to endoscopy planned for later today. Discharge orders & Medications Prescriptions: New furosemide [Lasix] 40 mg tablet 40 mg PO DAILY MDD 40 mg Qty: 30 RF: 0 Continued potassium chloride 20 mEq tablet extended release 10 meq PO DAILY PRN (Reason: Take w/lasix) RF: 0 diazepam 5 mg tablet 5 mg PO BID PRN (Reason: Anxiety) RF: 0 promethazine 25 mg tablet 25 mg PO Q8H PRN (Reason: nausea and vomiting) Qty: 12 RF: 1 levalbuterol HCl 0.63 mg/3 mL solution for nebulization 0.63 mg INHALATION Q8H PRN (Reason: shortness of breath or wheezing) Qty: 90 RF: 11 methocarbamol 750 mg tablet 750 mg PO TID PRN (Reason: Spasms) Qty: 90 RF: 3 pramipexole [Mirapex] 0.75 mg tablet 0.75 mg PO BEDTIME Qty: 90 RF: 3 epinephrine 0.3 mg/0.3 mL auto-injector 0.3 mg IM ONCE PRN (Reason: Allergic Reaction) Qty: 1 RF: 11 budesonide-formoterol [Symbicort] 80-4.5 mcg/actuation HFA aerosol inhaler 2 puff INHALATION BID Qty: 10.2 RF: 0 sumatriptan succinate 100 mg tablet 100 mg PO ONCE PRN (Reason: migraine headache) Qty: 14 RF: 3 montelukast 10 mg tablet 10 mg PO BEDTIME PRN (Reason: Allergy Symptoms) Qty: 90 RF: 3 rizatriptan 10 mg tablet 10 mg PO .COMPLEX PRN (Reason: migraine headache) Qty: 12 RF: 3 budesonide 32 mcg/actuation spray,non-aerosol 1 spray intranasal DAILY Qty: 8.43 RF: 0 levalbuterol tartrate [Xopenex HFA] 45 mcg/actuation HFA aerosol inhaler 2 inhalation INHALATION BID RF: 0 metoclopramide HCl 5 mg Tablet 10 mg PO QID PRN (Reason: nausea) RF: 0 furosemide [Lasix] 20 mg tablet 20 mg PO DAILY PRN (Reason: Edema) RF: 0 Trintellix 10 mg Tablet 10 mg PO BEDTIME RF: 0 lidocaine 5 % Ointment 1 applic TOPICAL TID PRN (Reason: pain) RF: 0 ibuprofen 800 mg Tablet 800 mg PO Q8H PRN (Reason: Pain (Scale Score 4-6)) RF: 0 ketotifen fumarate [Zaditor] 0.025 % (0.035 %) Drops 1 drp OPHTHALMIC (EYE) BID RF: 0 sumatriptan succinate 6 mg/0.5 mL Needle-Free Injector 6 mg SUBCUT PRN PRN (Reason: Migraine Headache) RF: 0 sennosides [senna] 8.6 mg Tablet 17.2 mg PO BEDTIME PRN (Reason: Constipation) RF: 0 garlic oil 2 dose PO DIRECTED RF: 0 diphenhydramine HCl [Benadryl] 25 mg Capsule 75 mg PO DAILY PRN (Reason: Allergy Symptoms) RF: 0 ketorolac [Sprix] 15.75 mg/spray [place],Non-Aerosol 15.75 mg INTRANASAL Q6-8H PRN (Reason: Migraine Headache) RF: 0 omeprazole 40 mg Capsule,Delayed Release(Dr/Ec) 40 mg PO BID RF: 0 acetaminophen 500 mg Tablet 1,000 mg PO Q6H PRN (Reason: Pain (Scale Score 1-3)) RF: 0 mirtazapine 7.5 mg Tablet 7.5 mg PO BEDTIME RF: 0 oxycodone 5 mg tablet 5 mg PO QID PRN (Reason: Pain (Scale Score 4-6)) RF: 0 gabapentin [Neurontin] 600 mg tablet 600 mg PO QID RF: 0 Discontinued ondansetron HCl [Zofran] 8 mg tablet 8 mg PO Q12H PRN (Reason: nausea and vomiting) Qty: 20 RF: 3 Follow up/Referrals: Oliver Saldaña MD [Primary Care Provider] - Diet/Activity/Treatments Diet: Diet as Tolerated Diet comment: Limit fluids to 2 L per day Activity: As tolerated Discharge Data Primary Care Provider: Oliver Saldaña Attending Provider: Rom Roth
[2020-03-04] MEDS: hydrOXYzine pamoate 25 MG CAPSULE PO (03:40)
[2020-03-04] MEDS: FUROSEMIDE 40 MG/4 ML VIAL IV (09:14)
[2020-03-04] MEDS: POTASSIUM CHLORIDE 20 MEQ TAB 40 MEQ PO (09:14)
[2020-03-04] MEDS: SODIUM CHLORIDE 0.9% FLUSH 10 ML IV (09:15)
[2020-03-04] MEDS: PANTOPRAZOLE 40 MG TABLET PO (09:15)
[2020-03-04] MEDS: GABAPENTIN 600 MG TABLET PO (09:15)
[2020-03-04] MEDS: diazePAM 5 MG TABLET PO (09:16)
[2020-03-04] MEDS: BENZOCAINE/MENTHOL 1 LOZ PKT 1 EACH PO (09:17)
--- NOTE | 2020-03-04 12:46 | CM.DPC ---
Addendum entered by Lily Cárdenas R.N. 03/04/20 14:50: Patient will come back up to the floor to be monitored after procedure. When discharge occurs, can provide yellow cab if needed, as they are covered by Medicaid, so patient will not drive home. Original Note: DCP Cont: Patient had attempted to leave this morning, for she stated, she didn't want to stay in the hospital, she wanted to go home. Patient did stay, decided to have her procedure. She is supposed to be having her colonoscopy today at 1530. Asked Dr. Encarnacion if patient can be discharged from PACU after procedure, for she is medically stable up here on the floor. He mentioned that it should be fine, but would need to contact surgery. Left surgical department a message to call this top case assembler back on her extension. P: Plan is for home after procedure. Will update surgical department. Lily Cárdenas RN/Ergonomics Consultant
--- NOTE | 2020-03-04 14:31 | SUR.HOLD ---
Pt brought to opd, c/o migraine, lights lowered pt medicated upstairs in acute care.
--- NOTE | 2020-03-04 14:33 | SUR.HOLD ---
Dr. Castro aware pt w/o some one when at home today. Daughter to call pt periodically when discharged home to check on pt.
--- NOTE | 2020-03-04 14:38 | PM.PREOP ---
Pre-operative Note COVID-19 COVID-19 status: Negative Interval Note History & Physical reviewed/Exam performed by Physician: Yes Changes to H&P: No
[2020-03-04] MEDS: LACTATED RINGERS 1,000 ML 84 ML IV (14:39)
--- NOTE | 2020-03-04 15:28 | PM.OP.ENDO ---
Operative Date/Time/Diagnoses Date of procedure: 03/04/20 Time of procedure: 15:28 Pre-op diagnosis: anemia Post-op diagnosis: same Procedure & Clinicians Study performed: colonoscopy Same procedure as scheduled: Yes Indications: 64F with anemia here for colonoscopy Surgeon: Wilson Castro Procedure Notes Procedure in detail: Medications: Conscious sedation using 8mg IV midazolam and 200mcg IV of fentanyl The history and physical was performed/updated and the patient is ASA class is 2. The procedure was discussed in detail with the patient. Potential risks complications including infection, bleeding, missed diagnosis, perforation, need for surgery, and were explained. Their questions were answered and informed consent was obtained. Patient was brought to the procedure room and placed standard monitoring equipment. The patient's vital signs were monitored continuously throughout the entire procedure. Prior to starting time-out was performed. The patient was placed in the left lateral recumbent position. Procedural sedation was administered. Examination began with a thorough inspection of the perianal area there was no evidence of fissures, fistulae, external hemorrhoids or cutaneous malignancy. The colonoscopy scope was then placed into the anal canal and was advanced to the cecum, which was identified by the ileocecal valve, the appendiceal orifice and the confluence of the taenia. The scope was then slowly withdrawn examining colon thoroughly in all directions, irrigating it of any residual stool. No masses or polyps Grade 1 internal hemorrhoids The patient tolerated the procedure well. They will be discharged once criteria are met. The prep was poor quality. The withdrawl time was 6 minutes. The sedation time was 34 minutes. Findings: internal hemorrhoids Specimen(s): none sent Complications: none Impression: normal colonoscopy Post-procedure Recommendations: Colonscopy in 10 years Disposition: Acute Care
[2020-03-04] MEDS: MIDAZOLAM 5 MG/5 ML VIAL IV (15:33)
[2020-03-04] MEDS: fentaNYL 250 MCG/5 ML INJ IV (15:34)
--- NOTE | 2020-03-04 16:14 | PC.NURSE ---
Evening shift note: Pt to be discharged from PACU post colonoscopy.. Pt belongings gathered from room 229 by Constance Carl RN and Carol Garcia RN. Belongings of note in belongings bag; cellphone, hot car charger, mask, purse, green outfit, slippers, jacket, and pillow. All paperwork in blue patient folder. All belongings went with Charge nurse ILIA Medina to PACU for patient's discharge. No further patient contact at this time.
--- NOTE | 2020-03-04 16:49 | PM.DS.1 ---
History of Present Illness History of Present Illness Chief complaint: Edema/ SOB Narrative: Patient is a 64-year-old female with history of chronic asthma, migraine, fibromyalgia, anxiety and depression who came into the emergency department this time with complaints increased swelling in her legs and shortness of breath. Patient has had numerous ER visits over the last couple months related to respiratory complaints. She was admitted to hospital observation from February 23 to February 24 for dyspnea and recent onset edema in legs. Her echocardiogram indicated normal LVEF with low right atrial pressure, mild to moderate TR, and mild to moderate pulmonary hypertension. Her asthma seems stable. We determine she had fluid retention secondary to recent 1 month course of oral methylprednisolone. She was diuresed overnight with improvement in dyspnea and peripheral edema and able to discharge home. Patient has furosemide ordered as needed and states she has been taking it but feels that her leg swelling has gotten worse. Current ER workup was also notable for worsening anemia with hemoglobin of 7.6 and hematocrit of 23.6 and guaiac-positive stool. At time of last admission we had noted she has a chronic iron deficiency anemia which had developed since September of 2019 when her hematocrit was 37.3. The anemia has been gradually worsening. She had EGD on 01/29/[address] Clifford which showed a large hiatal hernia but no source of obvious bleed. She has apparently discussed hiatal hernia repair with Dr. Clifford. Her last colonoscopy was 5 years ago with reportedly benign polyp. She has not had any coffee-ground emesis, melena or bright red blood per rectum. Discharge Providers Provider Date of admission: 03/02/20 06:13 Discharge Date: 03/04/20 Primary care physician: Oliver Saldaña MD Consults: 03/02/20 08:05 Consult to Physician Routine Comment: Consulting Provider: Wilson Castro Reason for consultation: GI BLEED Has provider been notified: Yes 03/03/20 23:21 Consult to AGRONOMY MANAGER - Manager Heart Failure Routine Comment: Anxiety, medical noncompliance AGRONOMY MANAGER Consult: Behavioral Health Assess Discharge provider: Jadiel Encarnacion MD Summary Hospital Course Discharge Diagnosis: 1. Chronic blood loss anemia 2. Edema secondary to venous insufficiency 3. Chronic asthma 4. Chronic migraines 5. Anxiety and depression Patient was admitted to the hospital due to findings of iron deficiency anemia anemia which is very chronic but gradually worsening. Dr. Castro performed colonoscopy which was normal and he recommends repeat colonoscopy in 10 years. She had EGD in January for hiatal hernia but there was no finding of source of bleeding. She may need additional evaluation to investigate the small bowel as potential source of chronic blood loss. She is supposed to follow-up with Dr. Clifford for the hiatal hernia. She did get infusion of iron sucrose. I do not think she is symptomatic from the anemia. Patient has had multiple ER visits over the past 2 months related to respiratory complaints and more recently lower extremity edema. She had echo earlier this month and she does not have CHF. Venous duplex negative for DVT. Edema is due to venous insufficiency with swelling compound the by quite excessive fluid intake. Patient advised to cut back on fluid intake and wear thigh-high medium compression stockings. She did get a couple doses of IV Lasix and being discharged on oral Lasix to take as needed. I believe patient has been over utilizing ER services and would best be managed in outpatient clinic setting. She has significant anxiety issues and established with Miguel Ángel Garcia for psychiatry. Status at Discharge Cognitive/behavioral status at discharge: oriented Functional status at discharge: independent ambulation Overall status at discharge: patient is back to baseline Exam Vital Signs (past 8 hours): - 03/04/20 09:31 03/04/20 13:37 03/04/20 14:21 Temperature 98.3 F 98.9 F Pulse Rate 85 85 92 H Respiratory Rate 20 20 18 Blood Pressure 130/61 130/75 Pulse Oximetry 97 97 95 03/04/20 15:34 03/04/20 15:39 03/04/20 15:44 Temperature 98.2 F Pulse Rate 87 82 86 Respiratory Rate 18 14 16 Blood Pressure 142/84 H 126/80 107/78 Pulse Oximetry 96 96 97 03/04/20 15:49 Temperature 97.6 F Pulse Rate 84 Respiratory Rate 18 Blood Pressure 125/67 Pulse Oximetry 97 Oxygen Delivery Method Room Air Oxygen Flow Rate 0 Objective Labs Result Diagrams: 03/03/20 04:40 03/03/20 04:40 [facility] Medical History (Updated 03/04/20 @ 13:09 by Jadiel Encarnacion MD) Anemia Anxiety Asthma Chronic back pain Chronic cough Depression Femur fracture, left Fibromyalgia Fractures GERD (gastroesophageal reflux disease) Hiatal hernia Recurrent sinusitis Venous insufficiency (chronic) (peripheral) Surgical History Anesthesia History of eye surgery (~1973) History of foot surgery History of hysterectomy (~1979) History of shoulder surgery (~2011) History of tonsillectomy (~1975) Hx of bilateral cataract extraction Family History Mother Heart disease Social History marital status: number of children: 1 household members: none lives independently: Yes caregiver/support person: Yes (3 afternoons per week) pets and animals: Yes occupational status: disabled Smoking Status: Never smoker alcohol intake: never substance use type: does not use Discharge Assessment & Plan Assessment and Plan Assessment: 1. Chronic worsening anemia 2. Bilateral lower extremity edema, not improving related to copious oral fluid intake. 3. Chronic asthma, stable 4. Chronic anxiety, labile behavior, non adnerence with medical plan of care. Plan of Treatment: The patient has chosen to leave prior to endoscopy to further evaluate source of persistent and progressive anemia. Review the risks of leaving this time including the risk of worsening anemia, worsening shortness of breath progressive weakness, heart attack, fall, injury or . The patient response acknowledges that information and is insistent on leaving. -follow-up up with your primary care provider for further monitoring and evaluation of her anemia and referral for outpatient endoscopy. -continue routine medications for asthma management. -follow-up with your senior ui ux developer as needed. -continue Lasix 40 mg daily and limit oral fluids to reduce leg swelling, prescription sent to [facility]. -return for any concerning symptoms pain or problems. Discharge Plan Discharge Plan Patient Disposition: Home Provider Discharge Comment: You have edema in the legs due to venous insufficiency. The preferred treatment for this is use of thigh high medium compression stockings. Put stocking on in AM and take off at night when go to bed. The pharmacist can help you pick one that fits your size. You may take furosemide as needed if the swelling is worse. Please follow up with PCP for this condition. Nursing Discharge Comment: Patient may be discharged from post-op recovery after her colonoscopy. Pt belongings gathered from room 229 by Constance Carl RN and Carol Garcia RN. Belongings of note in belongings bag; cellphone, outside sales account executive, mask, purse, green outfit, slippers, jacket, and pillow. All belongings went with Charge nurse ILIA Medina to PACU for patient's discharge. Discharge orders & Medications Prescriptions: New furosemide 40 mg tablet 40 mg PO DAILY PRN (Reason: edema) Qty: 30 RF: 0 Continued potassium chloride 20 mEq tablet extended release 10 meq PO DAILY PRN (Reason: Take w/lasix) RF: 0 diazepam 5 mg tablet 5 mg PO BID PRN (Reason: Anxiety) RF: 0 promethazine 25 mg tablet 25 mg PO Q8H PRN (Reason: nausea and vomiting) Qty: 12 RF: 1 levalbuterol HCl 0.63 mg/3 mL solution for nebulization 0.63 mg INHALATION Q8H PRN (Reason: shortness of breath or wheezing) Qty: 90 RF: 11 methocarbamol 750 mg tablet 750 mg PO TID PRN (Reason: Spasms) Qty: 90 RF: 3 pramipexole [Mirapex] 0.75 mg tablet 0.75 mg PO BEDTIME Qty: 90 RF: 3 epinephrine 0.3 mg/0.3 mL auto-injector 0.3 mg IM ONCE PRN (Reason: Allergic Reaction) Qty: 1 RF: 11 budesonide-formoterol [Symbicort] 80-4.5 mcg/actuation HFA aerosol inhaler 2 puff INHALATION BID Qty: 10.2 RF: 0 sumatriptan succinate 100 mg tablet 100 mg PO ONCE PRN (Reason: migraine headache) Qty: 14 RF: 3 montelukast 10 mg tablet 10 mg PO BEDTIME PRN (Reason: Allergy Symptoms) Qty: 90 RF: 3 rizatriptan 10 mg tablet 10 mg PO .COMPLEX PRN (Reason: migraine headache) Qty: 12 RF: 3 budesonide 32 mcg/actuation spray,non-aerosol 1 spray intranasal DAILY Qty: 8.43 RF: 0 levalbuterol tartrate [Xopenex HFA] 45 mcg/actuation HFA aerosol inhaler 2 inhalation INHALATION BID RF: 0 metoclopramide HCl 5 mg Tablet 10 mg PO QID PRN (Reason: nausea) RF: 0 Trintellix 10 mg Tablet 10 mg PO BEDTIME RF: 0 lidocaine 5 % Ointment 1 applic TOPICAL TID PRN (Reason: pain) RF: 0 ibuprofen 800 mg Tablet 800 mg PO Q8H PRN (Reason: Pain (Scale Score 4-6)) RF: 0 ketotifen fumarate [Zaditor] 0.025 % (0.035 %) Drops 1 drp OPHTHALMIC (EYE) BID RF: 0 sumatriptan succinate 6 mg/0.5 mL Needle-Free Injector 6 mg SUBCUT PRN PRN (Reason: Migraine Headache) RF: 0 sennosides [senna] 8.6 mg Tablet 17.2 mg PO BEDTIME PRN (Reason: Constipation) RF: 0 garlic oil 2 dose PO DIRECTED RF: 0 diphenhydramine HCl [Benadryl] 25 mg Capsule 75 mg PO DAILY PRN (Reason: Allergy Symptoms) RF: 0 ketorolac [Sprix] 15.75 mg/spray [place],Non-Aerosol 15.75 mg INTRANASAL Q6-8H PRN (Reason: Migraine Headache) RF: 0 omeprazole 40 mg Capsule,Delayed Release(Dr/Ec) 40 mg PO BID RF: 0 acetaminophen 500 mg Tablet 1,000 mg PO Q6H PRN (Reason: Pain (Scale Score 1-3)) RF: 0 mirtazapine 7.5 mg Tablet 7.5 mg PO BEDTIME RF: 0 oxycodone 5 mg tablet 5 mg PO QID PRN (Reason: Pain (Scale Score 4-6)) RF: 0 gabapentin [Neurontin] 600 mg tablet 600 mg PO QID RF: 0 Discontinued furosemide [Lasix] 20 mg tablet 20 mg PO DAILY PRN (Reason: Edema) RF: 0 ondansetron HCl [Zofran] 8 mg tablet 8 mg PO Q12H PRN (Reason: nausea and vomiting) Qty: 20 RF: 3 Follow up/Referrals: Oliver Saldaña MD [Primary Care Provider] - Diet/Activity/Treatments Diet: Diet as Tolerated Diet comment: Limit fluids to 2 L per day Activity: As tolerated Visit Report/Discharge Packet Stand Alone Forms: Colonoscopy Result: [facility] Surg Discharge Data Primary Care Provider: Oliver Saldaña Attending Provider: Rom Roth
== END 2020-03-04 16:38 | disposition home or self-care (01) ==
LOC: ED 05:50 → AC 06:14 → ICU 07:47
PROVIDERS: Internal Medicine; Surgery; Admitting Provider Nurse Practitioner Adult Health; Emergency Provider Emergency Medicine; PCP Family Medicine; Visit Provider Nurse Practitioner Adult Health
PROC: 0DJD8ZZ Inspection of Lower Intestinal Tract, Via Natural or Artificial Opening Endoscopic (ICD-10-PCS; CPT 45378; principal; 2020-03-04 15:15)
DX: D50.0 Iron deficiency anemia secondary to blood loss (chronic) (principal); R06.02 Shortness of breath; R60.9 Edema, unspecified; R19.7 Diarrhea, unspecified; M79.7 Fibromyalgia; F41.9 Anxiety disorder, unspecified; I87.8 Other specified disorders of veins; J44.9 Chronic obstructive pulmonary disease, unspecified; G43.909 Migraine, unspecified, not intractable, without status migrainosus; K64.0 First degree hemorrhoids
CPT/HCPCS: 45378; 36415; 80048; 80053; 82550; 82553; 83605; 83735; 84145; 84484; 85025; 85379; 85610; 85730; 86850; 86900; 86901; 87797; 93005; 93010; 94640; 94760; 96361; 96374; 96375; 96376; 99152; 99153; 99218; 99283; 99291; G0378; C9113; J1756; J1940; J2060; J2250; J3010; J7614

== ENCOUNTER → 2020-03-31 10:04 | Outpatient (CLI) | payer OTHER, MEDICAID, SELFPAY ==
[2020-03-02 08:00] VITALS: BMI 40.0
--- NOTE | 2020-03-31 10:05 | DI.RAD.S_ITS ---
PROCEDURE: FL BARIUM SWALLOW W SPEECH INDICATIONS: dysphagia. s/p tongue surgery. swollowing issues related? COMPARISON: None. TECHNIQUE: Examination was conducted in conjunction with speech pathology per standard protocol. In the lateral projection, filming was performed of the patient swallowing. AP projection filming may also be performed with patient swallowing. COMPARISON: FINDINGS: Function: The oral preparatory phase appears normal, with proper containment. The subsequent oral propulsive phase, pharyngeal phase, and esophageal phase of swallowing also appear normal with all proffered substances. No laryngotracheal penetration or aspiration. No pathologic vallecular pooling. Morphology: No cricopharyngeal bar is identified. No cervical esophageal webs. No Zenker's diverticulum. No strictures. IMPRESSION: Normal examination. Dictated by: Amaya Fletcher MD, PhD on 03/31/2020 at 11:55 Approved by: Amaya Fletcher MD, PhD on 03/31/2020 at 11:55
--- NOTE | 2020-03-31 16:05 | ST.SWALLOW ---
Visit Care Team Role Provider Type Oliver Saldaña MD Primary Care Provider Physician Specialty: Family Practice Address: [address] [place] [address], [id number] Email: [email or web address] Rojelio Clifford MD Attending Provider Physician Referring Provider Specialty: General Surgery Address: [address] [place] [address], [address], [place], [address] Email: [email or web address] Modified Barium Swallow Study RETREAD SUPERVISOR Modified Barium Swallow Study Start: 03/31/20 14:56 Freq: Status: Active Protocol: Document 03/31/20 14:56 LL (Rec: 03/31/20 15:06 LL [id number]) Modified Barium Swallow Study Total Time Visit Start Time 10:30 Visit Stop Time 11:15 Total Visit Minutes 45 Referral Referring Physician Rojelio Clifford MD Reason for Referral Dysphagia, unspecified Setting Setting Outpatient Care Patient Information Identification Type Name,Date of ,ID Card Patient History Sheryl Lennon is a 64- year-old female who was seen for an outpatient Modified Barium Swallow Study (MBSS) today per Dr. Clifford?s order due to concern for dysphagia. Per chart review and H&P, patient with PMHx of chronic asthma, migraine, fibromyalgia , recurrent sinusitis, chronic cough, anemia, GERD, hiatal hernia, cervical spondylosis with myelopathy, degeneration of cervical intervertebral disc, and C45 & C56 anterior cervical discectomy and fusion (09/2019). Per chart review, patient received an EGD on with Dr. Clifford which showed a large hiatal hernia with no source of bleeding. Patient unable to recall onset of swallowing difficulty but reported worsening symptoms following ACDF procedure in 2019. Patient reported increased coughing with cold liquids, expectoration of mucous (e.g., patient described mucous as white in color almost like a ? marshmallow consistency?) following oral intake, and overall increased coughing with and without oral intake. Subjective Observations Patient arrived on time, unaccompanied for today's study. Patient alert, oriented x 4, and agreeable to participate in study. Patient Positioning Position View Lat-A/P Imaging Lateral View Textures Administered Trials Presented Thin Liquid via Cup,Thin Liquid via Straw,[place] Liquid via Cup,Honey Liquid via Cup, Pudding Thick Liquid via Spoon ,Dysphagia Mechanical Textures ,Regular Textures Oral Phase Source: MBSIMP (TM) (C) Bolus Specific Scoring Grid Lip Closure WFL Tongue Control During Bolus Hold WFL Bolus Prep/Mastication WFL Bolus Transport/Lingual Motion WFL A/P Lingual Propulsion Delay No Oral Residue WFL Residue Clearing WFL Nasal Regurgitation No Additional Oral Phase Observations Unable to view MBSS footage in [id number] analysis due to radiology technical error. Adequate labial seal with no anterior loss or difficulty with labial acceptance with all consistencies. Adequate oral bolus containment/control and AP transfer with all consistencies. Adequate mastication of solid consistencies. Pharyngeal Phase Source: MBSIMP (TM) (C) Bolus Specific Scoring Grid Delayed Initiation of Pharyngeal Swallow No Soft Palate Elevation WFL Tongue Base Strength/Range of Motion WFL Clearance of Residue Along Tongue Base WFL Laryngeal Elevation WFL Anterior Hyoid Movement WFL Epiglottic Range of Motion WFL Clearance of Vallecular Residue WFL Laryngeal Vestibular Closure WFL Pharyngeal Stripping Wave WFL Pharyngeal Contraction WFL Clearance of Posterior Pharyngeal Wall WFL Residue Upper Esophageal Sphincter Opening WFL Clearance of Residue in the Pyriform WFL Sinuses Esophageal Clearance Upright Position WFL Pharyngoesophageal Backflow Observed No Additional Pharyngeal Phase Observations Unable to view MBSS footage in [id number] analysis due to radiology technical error. Pharyngeal trigger occurred at the level of the valleculae across all consistencies. Adequate laryngeal elevation and excursion resulting in complete epiglottic inversion with trace-minimal pharyngeal residue post-swallow, which patient independently cleared with use of second swallow. No penetration or aspiration visualized during study or reported by radiologist. A/P View Textures Administered Trials Presented Thin Liquid via Cup,Barium Tablet A/P View Observations Esophageal Function Slowed Clearing Additional Observations Unable to view MBSS footage in [id number] analysis due to radiology technical error. Please see radiologist's report for more detailed information. Patient required multiple sips of thin water to clear barium tablet into stomach. Clinical Impressions Dysphagia Type Functional oropharyngeal swallow (WFL) Findings The patient currently presents with a functional oropharyngeal swallow (WFL). However, the patient is a mild aspiration risk due to history of dysphagia and preexisting medical / health conditions (e.g., asthma, ACDF surgery, chronic cough, hiatal hernia, GERD) negatively impacting coordination of respiration and swallowing, pharyngeal swallow anatomy and physiology , and esophageal function. Risk mitigated given adherence to diet and PO precautions. Rehabilitation Potential Good Patient Appropriate for Therapy No Recommendations Diet Liquids Order Thin Diet Order Regular Medication Recommendation As Tolerated,Whole,One at a Time Aspiration Precautions Recommended Precautions Upright at 90 Degrees,Small Bites/Sips Treatment Plan Recommended Referrals Primary Care Physician,GI Consult,ENT Consult Additional Recommended Referrals Follow up with Dr. Clifford. Compensatory Strategies Recommendations Sitting Upright (90 deg),Small Bites and Sips Additional Compensatory Strategies Slow intake rate. Remain Recommended upright at least 30 minutes after meals. Additional Recommendations/Comments RETREAD SUPERVISOR extensively reviewed MBSS results, diet recommendations, PO precautions, and recommended referrals with patient after swallow study to ensure adequate understanding of information and carryover of information / strategies. RETREAD SUPERVISOR provided patient with written handout listing diet recommendations and PO precautions as well. Patient verbalized understanding and agreement with recommendations .
== END ==
PROVIDERS: PCP Family Medicine; Referring Provider Specialist; Visit Provider Specialist
DX: R13.10 Dysphagia, unspecified (principal)
CPT/HCPCS: 74230; 92526; 92611

== ENCOUNTER → 2020-04-13 19:48 | Outpatient (ROUT) | payer OTHER, MEDICAID, SELFPAY ==
[2020-04-02 11:41] VITALS: BMI 40.0
[2020-04-13 20:00] LABS: Add Manual Diff / Slide Review NO; Basophils Absolute Auto 100 /uL (0-100); Basophils Percent Auto 1.8 % (0-2); Eosinophils Absolute Auto 300 /uL (0-450); Eosinophils Percent Auto 3.7 % (2-4); Hematocrit 32.3 % (36-46); Hemoglobin 10.1 g/dL (12.0-16.0); Lymphocytes Absolute Auto 3000 /uL (1100-4500); Lymphocytes Percent Auto 35.8 % (25-40); Mean Corpuscular HGB Conc 31.3 % (30-36); Mean Corpuscular Hemoglobin 24.2 PG (26-34); Mean Corpuscular Volume 77.2 fL (80-100); Monocytes Absolute Auto 700 /uL (0-900); Monocytes Percent Auto 8.5 % (3-14); Neutrophils Absolute Auto 4200 /uL (1500-7000); Neutrophils Percent Auto 50.2 % (50-75); Platelet Count 358 X10^3/uL (150-400); Red Blood Cell Count 4.19 X10^6/uL (4.0-5.2); Red Cell Distribution Width 19.4 % (11.6-14.8); White Blood Cell Count 8.5 X10^3/uL (4.5-11.0)
[2020-04-13 20:04] LABS: HEMOLYSIS < 15 (0-50); Iron 26 ug/dL (37-170)
[2020-04-13 20:08] LABS: Alanine Aminotransferase 22 IU/L (<35); Albumin 4.3 g/dL (3.5-5.0); Albumin Globulin Ratio 1.7 (1.0-2.8); Alkaline Phosphatase 104 U/L (38-126); Aspartate Aminotransferase 34 IU/L (14-36); Bilirubin Total 0.1 mg/dL (0.2-1.3); Blood Urea Nitrogen 18 mg/dL (7-17); Calcium 9.9 mg/dL (8.4-10.2); Carbon Dioxide 26 mmol/L (22-32); Chloride 100 mmol/L (98-107); Estimated Glomerular Filt Rate > 60.0 mL/min (>60); Globulin 2.5 g/dL (1.7-4.1); Glucose 103 mg/dL (80-110); HEMOLYSIS < 15 (0-50); Potassium 4.7 mmol/L (3.4-5.1); Sodium 132 mmol/L (137-145); Total Protein 6.8 g/dL (6.3-8.2)
[2020-04-13 20:10] LABS: Rheumatoid Factor < 8.6 IU/mL (<12.0)
[2020-04-13 20:15] LABS: Percent Iron Saturation 7 % (15-50); Total Iron Binding Capacity 361 ug/dL (265-497); Transferrin 280 mg/dL (206-381)
[2020-04-13 20:23] LABS: Erythrocyte Sedimentation Rate 19 MM/HR (0-20)
[2020-04-13 20:41] LABS: Ferritin 25 ng/mL (11-264)
[2020-04-16 14:39] LABS: ANA Screen, IFA Negative (.)
== END ==
PROVIDERS: PCP Family Medicine; Visit Provider Physician Assistant
DX: G89.4 Chronic pain syndrome (principal); F11.90 Opioid use, unspecified, uncomplicated; M79.7 Fibromyalgia
CPT/HCPCS: 80053; 82728; 83540; 83550; 85025; 85651; 86038; 86140; 86430

== ENCOUNTER → 2020-04-28 06:27 | Outpatient (CLI) | payer OTHER, MEDICAID, SELFPAY ==
[2020-04-02 11:41] VITALS: BMI 40.0
--- NOTE | 2020-04-28 | DI.MRI.S_ITS ---
PROCEDURE: MR KNEE RT WO CON INDICATIONS: Unilateral primary osteoarthritis, right knee TECHNIQUE: Noncontrast sagittal PD fast spin echo and T2 fast spin echo with fat saturation, sagittal 3-D FLASH with fat saturation; coronal T1 spin echo and PD fast spin echo with fat saturation, and axial PD fast spin echo with fat saturation through the knee. COMPARISON: [facility], CR, XR KNEE 4+ VIEWS RIGHT, 03/24/2020, 9:50. [facility], MR, KNEE WITHOUT CONTRAST, 03/17/2013, 13:06. FINDINGS: Image quality: Excellent. Menisci: There is peripheral displacement of medial meniscus bowing medial collateral ligament. Subtle oblique tear involving posterior horn of medial meniscus extending to inferior articulating surface is seen. There is complex oblique tear involving anterior horn of lateral meniscus extending to superior and inferior articulating surfaces. The meniscal root ligaments appear intact. Cruciate ligaments: Attenuated appearance of anterior cruciate ligament with intrasubstance T2 hyperintense signal is seen consistent with sprain/low to moderate grade intrasubstance partial-thickness tear. No full-thickness ACL rupture. PCL is intact. Medial structures: The medial collateral ligament appears intact. The posterior oblique ligament, semimembranosus tendon insertions, oblique popliteal ligament, and meniscocapsular junction appear intact. Visualized portions of the pes anserinus tendons appear normal. No abnormal bursal fluid. Lateral structures: The lateral collateral ligament, long and short heads of the biceps femoris tendon appear intact. The popliteus tendon appears normal; the popliteofibular ligament appears intact. The posterosuperior and anteroinferior popliteomeniscal fascicles appear intact. The arcuate and fabellofibular ligaments appear intact, on either side of the lateral inferior geniculate artery. Iliotibial band appears normal. Anterior structures: The quadriceps and patellar tendons appear intact. Patellar alignment is normal. No femoral trochlear dysplasia or ventral trochlear prominence. No edema in the infrapatellar fat pad. Bones and cartilage: Moderate to severe tricompartmental osteoarthritis and chondromalacia is seen most prominent in medial femoral tibial compartment. No fracture or dislocation. Joint space: There is moderate amount of joint fluid, no gross intra-articular loose body. A small popliteal cyst is seen. Normal appearing synovial plicae are incidentally noted. IMPRESSION: 1. Moderate to severe tricompartmental osteoarthritis most prominent in medial femoral tibial compartment. Moderate amount of joint fluid and small popliteal cyst. No gross loose body. 2. Oblique tear involving posterior horn of medial meniscus extending to inferior articulating surface. Complex tear involving anterior horn of lateral meniscus extending to both superior and inferior articulating surfaces. 3. Sprain/low to moderate grade partial-thickness tear involving anterior cruciate ligament. No full-thickness ACL rupture. PCL is intact. Dictated by: Raaft Hall M.D. on 04/28/2020 at 9:46 Approved by: Rafat Hall M.D. on 04/28/2020 at 10:03
== END ==
PROVIDERS: PCP Physician Assistant; Referring Provider Orthopaedic Surgery; Visit Provider Orthopaedic Surgery
DX: S83.511A Sprain of anterior cruciate ligament of right knee, initial encounter (principal); M17.11 Unilateral primary osteoarthritis, right knee
CPT/HCPCS: 73721

== ENCOUNTER → 2020-04-29 11:12 | Outpatient (CLI) | payer MEDICARE, MEDICAID, SELFPAY ==
[2020-04-02 11:41] VITALS: BMI 40.0
[2020-04-29] MEDS: COVID-19 VACC #1, MRNA(MOD) 100 MCG/0.5 ML VIAL IM (11:22)
== END ==
PROVIDERS: PCP Physician Assistant; Visit Provider Internal Medicine
DX: Z23 Encounter for immunization (principal)
CPT/HCPCS: 0011A; 91301

== ENCOUNTER → 2020-05-01 12:44 | Outpatient (CLI) | payer OTHER, MEDICAID, SELFPAY ==
[2020-04-02 11:41] VITALS: BMI 40.0
[2020-05-01 12:59] LABS: Bacteria Urine None Seen; RBC Urine None Seen (0-5/HPF); WBC Urine None Seen (0-5/HPF)
[2020-05-01 13:14] LABS: Appearance Urine UA CLEAR; Bilirubin Urine UA NEGATIVE (NEGATIVE); Color Urine UA OTHER; Glucose Urine UA NEGATIVE (Negative); Ketones Urine UA NEGATIVE (NEGATIVE); Leukocyte Esterase Urine UA NEGATIVE (NEGATIVE); Nitrite Urine UA NEGATIVE (Negative); Occult Blood Urine UA NEGATIVE (Negative); Protein Urine UA NEGATIVE (Negative); Specific Gravity Urine UA <=1.005 (1.000-1.035); Urobilinogen Urine UA 0.2 E.U./dL (0.2)
[2020-05-01 13:15] LABS: Add Manual Diff / Slide Review NO; Basophils Absolute Auto 100 /uL (0-100); Eosinophils Absolute Auto 100 /uL (0-450); Eosinophils Percent Auto 1.7 % (2-4); Hematocrit 30.4 % (36-46); Hemoglobin 9.8 g/dL (12.0-16.0); Lymphocytes Absolute Auto 1300 /uL (1100-4500); Lymphocytes Percent Auto 24.5 % (25-40); Mean Corpuscular HGB Conc 32.2 % (30-36); Mean Corpuscular Hemoglobin 24.8 PG (26-34); Monocytes Absolute Auto 500 /uL (0-900); Monocytes Percent Auto 9.1 % (3-14); Neutrophils Absolute Auto 3300 /uL (1500-7000); Neutrophils Percent Auto 63.7 % (50-75); Platelet Count 307 X10^3/uL (150-400); Red Blood Cell Count 3.95 X10^6/uL (4.0-5.2); Red Cell Distribution Width 20.1 % (11.6-14.8); White Blood Cell Count 5.2 X10^3/uL (4.5-11.0)
[2020-05-01 13:19] LABS: Hemoglobin A1C% w Est Avg Glu 5.4 % (4.0-6.0)
[2020-05-01 13:22] LABS: Culture Indicated Urine Cult Not Indicated
[2020-05-01 13:31] LABS: BUN Creatinine Ratio 23.6 (6-22); Blood Urea Nitrogen 17 mg/dL (7-17); Calcium 9.2 mg/dL (8.4-10.2); Carbon Dioxide 26 mmol/L (22-32); Chloride 107 mmol/L (98-107); Estimated Glomerular Filt Rate > 60.0 mL/min (>60); Glucose 119 mg/dL (80-110); HEMOLYSIS < 15 (0-50); Sodium 138 mmol/L (137-145)
[2020-05-01 15:29] LABS: Anisocytosis 3+; Hypochromasia 2+; Microcytosis 2+; Poikilocytosis 1+
== END ==
PROVIDERS: PCP Physician Assistant; Referring Provider Orthopaedic Surgery; Visit Provider Orthopaedic Surgery
DX: Z01.818 Encounter for other preprocedural examination (principal); Z01.812 Encounter for preprocedural laboratory examination; R73.9 Hyperglycemia, unspecified; N39.0 Urinary tract infection, site not specified
CPT/HCPCS: 36415; 80048; 81001; 83036; 85025; 93005; 93010

== ENCOUNTER → 2020-05-05 12:24 | Outpatient (CLI) | payer OTHER, MEDICAID, SELFPAY ==
[2020-05-04 08:02] VITALS: BMI 40.0
[2020-05-05 12:55] LABS: COVID19 -Nasal RAPID Negative (Negative)
== END ==
PROVIDERS: PCP Physician Assistant; Visit Provider Student in an Organized Health Care Education/Training Program
DX: Z20.822 Contact with and (suspected) exposure to COVID-19 (principal)
CPT/HCPCS: 87635; C9803

== ENCOUNTER 2020-05-07 13:17 | Observation (INO) | payer OTHER, MEDICAID, SELFPAY ==
[2020-05-04 08:02] VITALS: BMI 40.0
[2020-05-06] VITALS (21 sets, daily range): BP systolic 90–141; BP diastolic 42–93; PULSE 70–104; RESP 16–26; TEMP 35.9–36.9; O2SAT 95–100; BMI 35.4
--- NOTE | 2020-05-06 | DI.RAD.S_ITS ---
PROCEDURE: XR KNEE RT 1TO2V INDICATIONS: POST OP RIGHT KNEE TECHNIQUE: 2 view(s) of the knee acquired. COMPARISON: [facility], CR, XR KNEE RT 3V, 09/29/2019, 15:29. FINDINGS: Bones: Patient is status post knee joint arthroplasty. Hardware components are in expected positions. Visualized bony structures are intact. Soft tissues: Overlying postoperative changes are noted. IMPRESSION: Expected postoperative alignment Dictated by: Jace Delarosa M.D. on 05/06/2020 at 12:33 Approved by: Jace Delarosa M.D. on 05/06/2020 at 12:34
[2020-05-06] MEDS: VANCOMYCIN 1,000 MG/200 ML PIGGYBACK 200 MG IV ×2 (07:12→19:12)
[2020-05-06] MEDS: LACTATED RINGERS 1,000 ML 42 ML IV ×2 (07:12→09:42)
--- NOTE | 2020-05-06 07:40 | P.OP_ITS ---
Operative Date/Time/Diagnoses Date of procedure: 05/06/20 Time of procedure: 07:57 Pre-op diagnosis: Right knee OA Post-op diagnosis: same Procedure & Clinicians Procedure: Right total knee arthroplasty Same procedure as scheduled: Yes Indications: The patient has had progressively worsening right knee pain with radiographic changes consistent with arthritis. Non-operative management has failed and the patient has requested total knee replacement. The risks, benefits and alternatives to surgery were discussed with the patient prior to proceeding. Risks discussed included, but were not limited to, failure to relieve pain, stiffness, infection, nerve damage, deep venous thrombosis, pulmonary embolism, stroke, coma, heart attack, permanent paralysis and , as well as the potential need for eventual revision of the prosthetic. Surgeon: Hanna Beck Meeting Specialist: Gonzalez Aguilar Anesthesia Type: General and Spinal Operative Notes Findings: severe right knee osteoarthritis, good stability adequate bone Closure Type: primary Specimen(s): none sent Prosthetic devices, grafts, tissues, transplants, or devices: Journey BCS 2 size 35 by 7-1/2 patella, size 4 right femur, size 3 tibia, +9 poly Applied: drain(s) Estimated Blood Loss (mL): 250 Blood products transfused: none Tourniquet time (min): 86 Procedure in detail: The patient was seen in the pre-operative area, where the patient identified the right knee as the operative site and this was marked with my initials. The patient received pre-operative antibiotics, and was taken to [facility] operating room and placed on the operative table in the supine position. After satisfactory anesthesia, a [employer] school hvac r instructor out was performed. The right leg was encircled with a tourniquet about the proximal thigh, and the leg was prepared from the toes to the tourniquet with ChloroPrep in the usual fashion and draped through sterile drapes. The leg was elevated and exsanguinated with Eschmark bandage and the tourniquet inflated to [250] mmHg pressure. The knee was approached through an approximately 18 cm incision centered over the patella and carried into the knee through a medial parapatellar arthrotomy. A portion of the medial and lateral meniscus was resected. Soft tissue was carefully mobilized around the patella the patella was measured with a caliper. Bone was resected from the patella and the patellar height was reconstituted with up an appropriate sized patellar component. A cover was then placed on the patella. A small amount of additional medial and lateral meniscus was resected. the distal femur was cut at 5? with the +2 slot. It looked like an adequate distal femoral resection. Additional medial and lateral meniscus were resected and retractors were placed around the tibia. 10 mm was resected off of the less worn lateral side with careful attention directed at alignment of the tibia and slope. I checked the extension gap it looked like an adequate extension black gap for a +9 poly. Gap coding and reimbursement specialist was placed. Was well balanced. Residual medial and lateral meniscus were resected and hemostasis was achieved with the Bovie cautery. Exparel and Marcaine were injected carefully. The rotation of the femoral component was checked both with the gap coding and reimbursement specialist and with the measured resection at about 3? of external rotation. Size 4 block was placed and finishing cuts were made. The rotation was assessed and the appropriate size femoral guide was placed on the distal femur and finishing cuts were made. There was no evidence of notching. The anterior, posterior and chamfer cuts were then made. The posterior osteophytes and soft tissues were then removed. The posterior capsule was injected with part of a mixture of 60 ml 0.25% Marcaine mixed with 20 ml Exparel for post operative pain control. The remainder of this mixture was injected into the capsule and subcutaneous tissues during cement curing. The femoral component was trial was placed and the notch was finished. Trial tibial and femoral components were then placed and the knee placed through a range of motion. Range of motion was [0-130], with good stability throughout the range. The trials were then removed, and the tibia was finished. The bone was prepared with pulsatile lavage, and dried with a sponge. Cement was applied and the final prosthetics placed. Excess cement was removed during and after cement curing. A brief Betadine soak was performed. After confirming there was no extruded cement posteriorly, the final tibial insert was placed. The knee was copiously irrigated and the tourniquet deflated. Hemostasis was obtained with the Bovie. A drain was placed and brought out superolaterally. The capsule was closed with interrupted Vicryl suture. The subcutaneous layer was closed with barbed sutures, and the skin with a running 3-0 V-Lock suture and Surgical glue. An Aquacel Ag dressing was applied and the patient was taken to recovery having tolerated the procedure well. Complications: none Post-operative Condition: stable Disposition: Acute Care Plan for aftercare: The patient will be maintained on a standard total knee replacement protocol with weight bearing as tolerated. The patient will receive aspirin and sequential compression devices for DVT prophylaxis. The patient will be discharged home when safe for the home environment.
--- NOTE | 2020-05-06 07:40 | PM.PREOP ---
Pre-operative Note COVID-19 COVID-19 status: Negative Interval Note History & Physical reviewed/Exam performed by Physician: Yes Changes to H&P: No
[2020-05-06] MEDS: CLINDAMYCIN 900 MG/50 ML PIGGYBACK 50 MG IV (08:01)
[2020-05-06] MEDS: TRANEXAMIC ACID 1,000 MG VIAL 2000 MG INJ ×2 (08:15→10:01)
--- NOTE | 2020-05-06 08:38 | SUR.OPER ---
Supine on padded OR bed. Pillow under head, arms secured on padded armboards <90 degree abduction. Safety belt across torso. Non-operative leg secured with tape over blanket over lower leg. Operative leg secured in [place]/Leon positioner. Foam padded brace at thigh of operative leg.
[2020-05-06] MEDS: BUPIVACAINE LIPOSOME 266 MG/20 ML VIAL INJ (08:47)
[2020-05-06] MEDS: SODIUM CHLORIDE IRRIG SOLUTION 250 ML, POVIDONE-IODINE SPONGE STICKS 1 APPLIC IRR (08:48)
[2020-05-06] MEDS: BUPIVACAINE 0.25% W/ EPI (PF) 10 ML VIAL 20 ML INJ (08:49)
--- NOTE | 2020-05-06 10:22 | SUR.OPER ---
clamp on drain at 1020.
[2020-05-06] MEDS: ACETAMINOPHEN IV 1,000 MG/100 ML VIAL 400 MG IV (11:25)
[2020-05-06] MEDS: KETOROLAC 30 MG/ML VIAL 15 MG IV (11:25)
[2020-05-06] MEDS: LORazepam 2 MG/ML INJ (11:25)
--- NOTE | 2020-05-06 11:33 | SUR.PHASEI ---
1100 pt. demanded her own inhaler, which is levalbuterol. it was found in her purse and she took several puffs which seemed to aleviate her symptoms of anxiety. sat are at 100%
--- NOTE | 2020-05-06 12:14 | SUR.PHASEI ---
1115 pt. c/o right sided neck/lower skull px. 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 UE, spinal effective to bilat. LE at this time. ongoing monitoring.
--- NOTE | 2020-05-06 13:58 | PC.NURSE ---
Assess- Patient to floor around 1215. She had a total r.knee done, hemovac unclamped at 1235. She is on LR at 100cc/hr. Tolerating a regular diet. Dressing is aquacel with acewrap. Patient has not had any urge to void as of yet. She is getting oxycodone for pain, but is requesting to have change it to Dilaudid. She has some personal belongings locked up in the safe. CMS wnl and ppx2. Patient had an epidural and the site is to lower back and open to air.
[2020-05-06] MEDS: GABAPENTIN 600 MG TABLET PO ×3 (14:10→20:51)
[2020-05-06] MEDS: IBUPROFEN 400 MG TABLET PO ×3 (14:10→20:50)
[2020-05-06] MEDS: ACETAMINOPHEN 325 MG TABLET 650 MG PO ×2 (14:11→20:51)
[2020-05-06] MEDS: OXYCODONE IR 10 MG TABLET PO ×3 (14:11→20:50)
[2020-05-06] MEDS: LACTATED RINGERS 1,000 ML 100 ML IV ×2 (14:12→22:26)
--- NOTE | 2020-05-06 14:49 | PT.IIE ---
Current Diagnoses Unilateral primary osteoarthritis, right knee (05/06/20) Surgery Performed Operation Date: 05/06/20 07:45 Actual Procedures p Total Knee Arthroplasty(Right) - Hanna Beck MD Surgical History (Last Reviewed 04/16/20 @ 15:18 by Rojelio Clifford MD) Anesthesia History of eye surgery (~1973) History of foot surgery History of hysterectomy (~1979) History of shoulder surgery (~2011) History of tonsillectomy (~1975) Hx of bilateral cataract extraction Medical History (Last Reviewed 04/16/20 @ 15:18 by Rojelio Clifford MD) Anemia Anxiety Asthma Chronic back pain Chronic cough Depression Femur fracture, left Fibromyalgia Fractures GERD (gastroesophageal reflux disease) Hiatal hernia Recurrent sinusitis Venous insufficiency (chronic) (peripheral) Physical Therapy Inpatient Evaluation/Re-Eval M1 PT/OT-IP Prior Functional Status Start: 05/06/20 16:05 Freq: NEEDED Status: Active Protocol: Document 05/06/20 14:49 AB (Rec: 05/06/20 16:38 AB [id number]) Medical Review Prior Functional Status Medical History Reviewed Yes Communication able to make needs known Mobility and Gait pt stated that she was independent with all mobilities and ambulation without AD Social History Household Members none Living Arrangements Apartment/Condo Number of Floors (Floors) One Floor Number of Stairs To Enter/Railing? 4 steps L rail +landing+4 steps R rail+landing +12 steps R rail + 2 steps without rails to get into her 2nd floor apartment Home Environment Standard Height Toilet,Walk in Shower Home Equipment Raised Toilet Seat w/Armrests, Shower Seat without Backrest, Hand Held Shower,Grab Bars In Shower Additional Social History Comment does not have and AD to use at home; stated that she used crutches before but [facility]; has not set up outpt PT and stated that she was supposed to call but has not yet called M2 PT-IP Current Condition Start: 05/06/20 16:05 Freq: NEEDED Status: Active Protocol: Document 05/06/20 14:49 AB (Rec: 05/06/20 16:38 AB [id number]) Physical Therapy Current Condition Current Condition Evaluation Date 05/06/20 Treatment Diagnosis s/p R TKA; difficulty in walking Onset Date 05/06/20 Weight Bearing Status Weight Bearing Status Weight Bear as Tolerated Allowed Weight Bearing Amount (enter % WBAT RLE or #) (%) M3 PT-IP Subjective Start: 05/06/20 16:05 Freq: NEEDED Status: Active Protocol: Document 05/06/20 14:49 AB (Rec: 05/06/20 16:38 AB [id number]) Subjective Physical Therapy Visit Type Type Initial Evaluation Visit Start Time 14:49 Visit Stop Time 15:18 Total Visit Minutes 29 Number of CAR RIDER Visits 0 Physical Therapy Visit Comments Patient Comments pt has a lot of concers: stated that somebody has to talk to Dr. Beck about giving her dilaudid and that if she does not get that, then she will just go home; PT trying to obtain PLOF and home set up but pt gets irritated and stated that everything was the same as when she was her last time Therapy Pain Assessment Pain When Pain Assessed At Rest Pain Present Pain Present Pain Reported Location overall Scale Used pain scale not stated Pain Behaviors Guarding Pain Management Techniques Apply Cold,Distraction, Elevation,Modification of Treatment,Re-positioning, Timing of Activity with Medications M4 PT-IP Mobility and Gait Start: 05/06/20 16:05 Freq: NEEDED Status: Active Protocol: Document 05/06/20 14:49 AB (Rec: 05/06/20 16:38 AB [id number]) PT-Bed Mobility Assessment Supine to Sit Supine to Sit Standby Assistance,Head of Bed Elevated,Bedrails Sit to Supine Sit to Supine Maximum Assistance PT-Transfer Assessment Sit to and From Stand Sit to and from Stand Contact Guard Assistance,1 Person Assistance,Use of Upper Extremities Equipment Transfer Assistive Device Gait Belt,Front Wheeled Walker Orthotic/Prosthetic Devices or Brace: No Transfers Transfer Destination Bed,Bedside Commode Transfer Ability Level of Assist Contact Guard Assistance,1 Person Assistance,Use of Upper Extremities Comments Mobility Comments Talked to nurse Benitez and stated that pt might need assistance with toileting and NAC is in room with pt assisting with use of bed lan. Checked on pt if pt might want to just get up and use bedside commode but when PT checked, knocked and peek through pt's room, before PT can say anything, pt is irritated and stated that she is using a bed lan and wants to do that first. NAC came out of the room after a few minutes and informed PT that pt was not able to use the bedpan. checked back on pt and asked if she wants to use the toilet/bedside commode . pt agreed but directs her own care. c/o not getting dilaudid and that she is not getting the care she needs. pt is impulsive and completed supine to sit with HOB elevated and use of bedrail SBA but while PT was setting up bedside commode. pt kept R knee straight and refused to bend knee and c/o pain. completed sit to stand CGA and was able to take steps using FWW to bedside commode. continues to refuse bending R knee and wants support under her knee. pt gets agitated/ irritated easily and if corrected will aggravate situation. pt was able to do hygiene without assistance. continues not to bend knee and wants to just go back to bed. completed sit to stand CGA . completed sit to supine max A with BLE to elevate up into the bed. 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 Pt is very particular about setting things up and not very amenable to corrections or suggestions. Left pt with NAC . call light and table within reach. pt stated that she does not have any AD at home. she prefers to use crutches if needed due to her not having any assistance at home and she cannot move FWW up stairs by herself. Gait Assessment Comments Gait Comments able to take steps during transfers; did not do ambulation PT-Balance Assessment Sitting Balance and Reactions Static Sitting Balance Ability Good Dynamic Sitting Balance Ability Good Standing Balance and Reactions Static Standing Balance Ability Fair Dynamic Standing Balance Ability Fair Device Used FWW M5 PT-IP Objective Assessments Start: 05/06/20 16:05 Freq: NEEDED Status: Active Protocol: Document 05/06/20 14:49 AB (Rec: 05/06/20 16:38 AB [id number]) Orientation Orientation/Cognition Level of Alertness Alert Orientation Name,Age,Birthday,Month,Date, Year,Day of Week,Place, Situation Language Function Ability No Deficits Noted Safety Awareness Decreased Safety Awareness Gross Range of Motion Lower Extremity ROM Impairments unable to check R knee range due to pt's refusal to bend R knee Strength Comments Strength Comments MMT not tested due to pt's refusal to bend R knee Sensation Assessment Sensation Gross Sensation WNL M6 PT-IP Treatment Start: 05/06/20 16:05 Freq: NEEDED Status: Active Protocol: Document 05/06/20 14:49 AB (Rec: 05/06/20 16:38 AB [id number]) Physical Therapy Treatment Education Education Provided Precautions,Weight Bearing Status,Post-Op Packet,Safety M7 PT-IP Assessment and Plan Start: 05/06/20 16:05 Freq: NEEDED Status: Active Protocol: Document 05/06/20 14:49 AB (Rec: 05/06/20 16:38 AB [id number]) PT Summary Assessment and Plan Potential Rehabilitation Potential Fair Status of Condition at Evaluation Evolving Summary Impairments Pain,ROM,Strength,Balance, Coordination,Sensation,Tone, Cognition,Bed Mobility, Transfers,Gait,Activity Tolerance Assessment Summary pt requiring CGA with transfers but refused ambulation. c/o increase pain and is not agreeable to corrections/suggestions. pt directs her own care. pt does not have any assistance at home and does not have any AD that she can use. pt has ~ 2 flight of steps to get into her 2nd floor apartment and prefers to use crutches. will assess appropriateness for crutches next tx session or determined safest AD needed. will continue to assess progress. Goals Bed Mobility Goal Independent Transfer Goal Independent,Crutches Gait Goal Independent,Crutches Gait Distance 100 Other Goals improve ambulation using SPC 150 ft mod I up/down 12 steps R rail; 4 steps L rail, 2 steps without rails using crutches/AD mod I Days to Meet Goals 5 Frequency of Treatment Frequency Of Treatment Twice a Day Treatment Plan Physical Therapy Treatment Plan Bed Mobility Training,Transfer Training,Gait Training, Therapeutic Exercise,Balance Retraining,Post Op Education, Discharge Planning,Hot or Cold Pack,Neuromuscular Re-ed, Coordination Retraining,Manual Therapy Other Recommendations and Next Treatment assess ambulation using Focus crutches/SPC to determine safest least restrictive AD , stair climbing Recommendations To Nursing Amount of Assist Needed 1 Person Assist Discharge Recommendations PT Discharge Recommendations Home with Assistance,Home Health Equipment Needed for Home Before crutches/FWW/SPC depending on Discharge safety Transportation Needs at Discharge Private Vehicle
[2020-05-06] MEDS: diphenhydrAMINE 25 MG TABLET 75 MG PO (15:37)
[2020-05-06] MEDS: hydrOXYzine pamoate 25 MG CAPSULE PO (15:37)
[2020-05-06] MEDS: methocarbamoL 500 MG TABLET 750 MG PO (15:38)
[2020-05-06] MEDS: LEVALBUTEROL 1.25 MG/0.5 ML NEB INH (19:48)
[2020-05-06] MEDS: IPRATROPIUM 0.5 MG/2.5 ML NEB INH (19:48)
[2020-05-06] MEDS: BUDESONIDE FORMOTEROL 2 EACH INH (19:49)
[2020-05-06] MEDS: MIRTAZAPINE 7.5 MG TABLET PO (20:51)
[2020-05-06] MEDS: ASPIRIN EC 81 MG TABLET PO (20:51)
[2020-05-06] MEDS: DOCUSATE 100 MG CAPSULE PO (20:55)
[2020-05-06] MEDS: FLUTICASONE 120 SPRAY/16 GM SPRAY.SUSP NASAL (20:56)
[2020-05-06] MEDS: PANTOPRAZOLE 40 MG TABLET PO (21:00)
[2020-05-06] MEDS: polyethylene glycoL 3350 17 GM POWD.PACK PO (21:00)
[2020-05-06] MEDS: KETOTIFEN FUMARATE 1 EACH EYE-BOTH (22:28)
[2020-05-07] VITALS (7 sets, daily range): BP systolic 98–121; BP diastolic 56–84; PULSE 64–93; RESP 15–20; TEMP 36.2–37.3; O2SAT 92–97
[2020-05-07] MEDS: IBUPROFEN 400 MG TABLET PO ×6 (00:57→20:28)
[2020-05-07] MEDS: OXYCODONE IR 10 MG TABLET PO (00:59)
[2020-05-07] MEDS: hydrOXYzine pamoate 25 MG CAPSULE PO (01:03)
--- NOTE | 2020-05-07 01:38 | PC.NURSE ---
0130 Patient found out of bed independently. Pt reports pressing call light more than twice, though nursing did not receive the call. TATTOOER checked call light to confirm its functioning appropriately. Patient able to void 850mL pale urine. Assisted patient back to bed, reminded of use of call light, bed alarm on. Patient expresses dissatisfaction with pain management.
[2020-05-07] MEDS: diazePAM 5 MG TABLET PO ×3 (02:15→23:11)
[2020-05-07] MEDS: HYDROMORPHONE 0.5 MG INJ IV ×5 (03:22→11:27)
[2020-05-07 05:42] LABS: Hematocrit 27.1 % (36-46); Hemoglobin 8.8 g/dL (12.0-16.0)
[2020-05-07] MEDS: PANTOPRAZOLE 40 MG TABLET PO (07:07)
--- NOTE | 2020-05-07 07:32 | PC.NURSE ---
Called provider for unmanaged pain at 0323. received pain med order. Patient received meds and was very pleased with pain management for the rest of my shift.
--- NOTE | 2020-05-07 09:27 | P.PN_ITS ---
Subjective Subjective Date Patient Seen: 05/07/20 Time Patient Seen: 09:28 Interval history: Patient states that she is doing well after her right TKA. Pain is controlled with Dilaudid 0.5mg IV that was last administered at 0800 this morning. She states that she has mild discomfort in the posterior right leg but has good sensation throughout the extremity. Currently, she notes that her pain is a 5/10 in intensity. She notes that she is voiding well. She is able to ambulate with the assistance of a walker, but she notes that she has yet to work with PT today. She is tolerating her medications well and denies nausea. She also denies shortness of breath or chest tightness. Exam Vital Signs (past 8 hours): - 05/07/20 03:42 05/07/20 07:38 Temperature 98.0 F 97.2 F L Pulse Rate 77 64 Respiratory Rate 15 16 Blood Pressure 109/59 L 119/62 Pulse Oximetry 92 97 Oxygen Delivery Method Room Air Oxygen Flow Rate 0 Narrative Exam Narrative: Pt is sitting upright in her exam room having breakfast. Incision site is clean without signs of erythema or strike through of bandages. Sensation is intact throughout the bilateral lower extremities. Negative Homans sign on the right LE. Plantar flexion, dorsiflexion, ankle inversion, and ankle eversion performed bilaterally without discomfort or difficulty. Hip flexion is performed bilaterally without difficulty. Const General: cooperative and comfortable Orientation: alert, awake and oriented x3 HENMT Head: normal to inspection Resp Effort & Inspection: normal respiratory effort and able to speak in complete sentences Extrem Right lower extremity: normal to inspection and normal capillary refill Objective Labs Result Diagrams: 05/07/20 05:11 Labs: Laboratory Results - last 24 hr 05/07/20 05:11 Hgb 8.8 L Hct 27.1 L PFSH Medical History Anemia Anxiety Asthma Chronic back pain Chronic cough Depression Femur fracture, left Fibromyalgia Fractures GERD (gastroesophageal reflux disease) Hiatal hernia Recurrent sinusitis Venous insufficiency (chronic) (peripheral) Surgical History Anesthesia History of eye surgery (~1973) History of foot surgery History of hysterectomy (~1979) History of shoulder surgery (~2011) History of tonsillectomy (~1975) Hx of bilateral cataract extraction Family History Mother Heart disease Social History marital status: number of children: 1 household members: none lives independently: Yes caregiver/support person: Yes (3 afternoons per week) pets and animals: Yes occupational status: disabled Smoking Status: Never smoker alcohol intake: never substance use type: does not use Assessment & Plan Post-op Postoperative Procedures: Procedures Operation Date: 05/06/20 07:45 Actual Procedures Side Surgeon p Total Knee Arthroplasty Right Hanna Beck MD Postoperative day: 1 Postoperative status: doing well Postoperative plan: ambulate Postoperative plan narrative: Patient is stable but has yet to meet with PT. She notes that she has stairs at home. Prior to discharge the patient will need to ambulate with PT and work on ascending stairs. Patient is to continue weight bearing as tolerated with assistance of a walker. Patient will continue BID Aspirin 81mg at home, and pain management with Tylenol, Ibuprofen, and PO Dilaudid as needed. Patient will participate in PT after discharge at [facility] and will have her first post-op visit at [facility] in two weeks. Patient needs to work with PT before discharge. Quality VTE Deep Vein Thrombosis/Pulmonary Embolism Present on Admission: No
[2020-05-07] MEDS: BUDESONIDE FORMOTEROL 2 EACH INH ×2 (09:33→20:30)
[2020-05-07] MEDS: DOCUSATE 100 MG CAPSULE PO ×2 (09:36→20:28)
[2020-05-07] MEDS: GABAPENTIN 600 MG TABLET PO ×4 (09:37→20:28)
[2020-05-07] MEDS: ACETAMINOPHEN 325 MG TABLET 650 MG PO ×3 (09:37→20:27)
[2020-05-07] MEDS: FLUTICASONE 120 SPRAY/16 GM SPRAY.SUSP NASAL ×2 (09:37→20:33)
[2020-05-07] MEDS: ASPIRIN EC 81 MG TABLET PO ×2 (09:37→20:28)
[2020-05-07] MEDS: IPRATROPIUM 0.5 MG/2.5 ML NEB INH ×2 (09:39→21:02)
[2020-05-07] MEDS: LEVALBUTEROL 1.25 MG/0.5 ML NEB INH ×2 (09:39→21:04)
[2020-05-07] MEDS: KETOTIFEN FUMARATE 1 EACH EYE-BOTH ×2 (09:44→20:36)
--- NOTE | 2020-05-07 11:13 | PT.IPTN ---
Current Diagnoses Unilateral primary osteoarthritis, right knee (05/06/20) Surgery Performed Operation Date: 05/06/20 07:45 Actual Procedures p Total Knee Arthroplasty(Right) - Hanna Beck MD Physical Therapy Treatment Note M2 PT-IP Current Condition Start: 05/06/20 16:05 Freq: NEEDED Status: Active Protocol: Document 05/06/20 14:49 AB (Rec: 05/06/20 16:38 AB [id number]) Physical Therapy Current Condition Current Condition Evaluation Date 05/06/20 Treatment Diagnosis s/p R TKA; difficulty in walking Onset Date 05/06/20 Weight Bearing Status Weight Bearing Status Weight Bear as Tolerated Allowed Weight Bearing Amount (enter % WBAT RLE or #) (%) M3 PT-IP Subjective Start: 05/06/20 16:05 Freq: NEEDED Status: Active Protocol: Document 05/07/20 10:22 CLB (Rec: 05/07/20 12:06 CLB [id number]) Subjective Physical Therapy Visit Type Type Treatment Note Visit Start Time 10:22 Visit Stop Time 11:13 Total Visit Minutes 51 Number of AUTOMOBILE LEASING SUPERVISOR Visits 1 Physical Therapy Visit Comments Patient Comments Pt willing to work with therapy. Therapy Pain Assessment Pain When Pain Assessed At Rest Pain Present Pain Present Pain Reported M4 PT-IP Mobility and Gait Start: 05/06/20 16:05 Freq: NEEDED Status: Active Protocol: Document 05/07/20 10:22 CLB (Rec: 05/07/20 12:06 CLB [id number]) PT-Bed Mobility Assessment Supine to Sit Supine to Sit Standby Assistance,Head of Bed Elevated Sit to Supine Sit to Supine Standby Assistance,Head of Bed Elevated Scooting Scooting Up and Down in Bed Standby Assistance PT-Transfer Assessment Sit to and From Stand Sit to and from Stand Contact Guard Assistance,1 Person Assistance,Use of Upper Extremities Equipment Transfer Assistive Device Gait Belt,Front Wheeled Walker ,Axillary Crutches Orthotic/Prosthetic Devices or Brace: No Transfers Transfer Destination Bed Transfer Ability Level of Assist Contact Guard Assistance,1 Person Assistance,Use of Upper Extremities Comments Mobility Comments Pt agreeable to get OOB and try to use crutches. Pt able to get to EOB SBA and required CGA to stand. Pt unable to use crutches safely with increase in pain of right knee . Pt sat on bed CGA and FWW placed in position. Pt stood requring CGA . Pt ambulated in room ~10ft w/FWW/CGA. Pt requires increased time and standing rest breaks due to right shoulder pain. Pt sat on EOB CGA and used cane to get RLE onto bed. Pt then scooted up in bed SBA. Pt performed ther ex in bed requiring AAROM for all ther ex. Bed alarm, ice and all needs within reach and SCD's on. Gait Assessment Gait Gait Assistance Required: Contact Guard Assist,1 Person Assist Distance (Feet) 10 Able to Maintain Weight Bearing Status Yes During Gait Assistive Devices Assistive Device Front Wheeled Walker Orthotic/Prosthetic Devices or Brace: No Gait Deviations General Gait Pattern Ataxic,Flexed Trunk,Step-to Gait Factors Limiting Gait Function Factors Limiting Gait Function Decreased Activity Tolerance, Decreased Strength,Difficulty Following Directions,Pain,Poor Balance,Poor Safety Awareness Comments Gait Comments Pt requires increased time with gait. Pt uses step to gait pattern and standing rest breaks. Stair Climbing Assessment Comments Stair Climbing Comments will require stair training before d/c. M5 PT-IP Objective Assessments Start: 05/06/20 16:05 Freq: NEEDED Status: Active Protocol: Document 05/06/20 14:49 AB (Rec: 05/06/20 16:38 AB [id number]) Orientation Orientation/Cognition Level of Alertness Alert Orientation Name,Age,Birthday,Month,Date, Year,Day of Week,Place, Situation Language Function Ability No Deficits Noted Safety Awareness Decreased Safety Awareness Gross Range of Motion Lower Extremity ROM Impairments unable to check R knee range due to pt's refusal to bend R knee Strength Comments Strength Comments MMT not tested due to pt's refusal to bend R knee Sensation Assessment Sensation Gross Sensation WNL M6 PT-IP Treatment Start: 05/06/20 16:05 Freq: NEEDED Status: Active Protocol: Document 05/07/20 10:22 CLB (Rec: 05/07/20 12:06 CLB [id number]) Physical Therapy Treatment Exercises Exercises Heel Slides,Straight Leg Raises,Short Arc Quads Education Education Provided Precautions,Weight Bearing Status,Safety M7 PT-IP Assessment and Plan Start: 05/06/20 16:05 Freq: NEEDED Status: Active Protocol: Document 05/07/20 10:22 CLB (Rec: 05/07/20 12:06 CLB [id number]) PT Summary Assessment and Plan Potential Rehabilitation Potential Fair Status of Condition at Evaluation Evolving Summary Impairments Pain,ROM,Strength,Balance, Coordination,Sensation,Tone, Cognition,Bed Mobility, Transfers,Gait,Activity Tolerance Assessment Summary Pt continues to direct her own care but was willing to ambulate and perform ther ex. Pt requires increased time to perform all mobility due to need for rest breaks due to pain. Pt will need FWW at d/c, pt states she will have someone to help her get into her home but will need to climb two flights of stairs. Pt agreeable to HH. Goals Bed Mobility Goal Independent Transfer Goal Independent,Crutches Gait Goal Independent,Crutches Gait Distance 100 Other Goals improve ambulation using SPC 150 ft mod I up/down 12 steps R rail; 4 steps L rail, 2 steps without rails using crutches/AD mod I Days to Meet Goals 5 Frequency of Treatment Frequency Of Treatment Twice a Day Treatment Plan Physical Therapy Treatment Plan Bed Mobility Training,Transfer Training,Gait Training, Therapeutic Exercise,Balance Retraining,Post Op Education, Discharge Planning,Hot or Cold Pack,Neuromuscular Re-ed, Coordination Retraining,Manual Therapy Other Recommendations and Next Treatment stair climbing, gait, ther ex. Focus Recommendations To Nursing Amount of Assist Needed 1 Person Assist Discharge Recommendations PT Discharge Recommendations Home with Assistance,Home Health Equipment Needed for Home Before FWW Discharge Transportation Needs at Discharge Private Vehicle
[2020-05-07] MEDS: ONDANSETRON 4 MG ODT PO (11:27)
--- NOTE | 2020-05-07 13:42 | PM.PNPO.1 ---
Subjective Subjective Date Patient Seen: 05/07/20 Time Patient Seen: 13:44 Interval history: Patient states that she has met with PT and felt great discomfort in her right lower extremity during therapy. Despite attempts to manage pain the patient notes that she does not feel that she is ready to be discharged. Exam Vital Signs (past 8 hours): - 05/07/20 07:38 05/07/20 09:39 05/07/20 11:49 Temperature 97.2 F L 97.2 F L Pulse Rate 64 72 86 Respiratory Rate 16 20 16 Blood Pressure 119/62 107/56 L Pulse Oximetry 97 95 93 Oxygen Delivery Method Room Air Oxygen Flow Rate 0 Narrative Exam Narrative: Patient guarding RLE and apprehensive to move the right leg. Patient able to lift the RLE off of the bed and sensation is intact throughout the limb. Capillary refill < 2 seconds, NVI. Patient is agitated. Objective Labs Result Diagrams: 05/07/20 05:11 Labs: Laboratory Results - last 24 hr 05/07/20 05:11 Hgb 8.8 L Hct 27.1 L PFSH Medical History Anemia Anxiety Asthma Chronic back pain Chronic cough Depression Femur fracture, left Fibromyalgia Fractures GERD (gastroesophageal reflux disease) Hiatal hernia Recurrent sinusitis Venous insufficiency (chronic) (peripheral) Surgical History Anesthesia History of eye surgery (~1973) History of foot surgery History of hysterectomy (~1979) History of shoulder surgery (~2011) History of tonsillectomy (~1975) Hx of bilateral cataract extraction Family History Mother Heart disease Social History marital status: number of children: 1 household members: none lives independently: Yes caregiver/support person: Yes (3 afternoons per week) pets and animals: Yes occupational status: disabled Smoking Status: Never smoker alcohol intake: never substance use type: does not use Assessment & Plan Post-op Postoperative Procedures: Procedures Operation Date: 05/06/20 07:45 Actual Procedures Side Surgeon p Total Knee Arthroplasty Right Hanna Beck MD Postoperative day: 1 Postoperative status narrative: Patient is in no acute distress. Postoperative plan: ambulate Postoperative plan narrative: Patient needs to work with PT again today ambulating and ascending stairs. Patient not comfortable being discharged until further work with PT is completed. Quality VTE Deep Vein Thrombosis/Pulmonary Embolism Present on Admission: No
[2020-05-07] MEDS: HYDROMORPHONE 4 MG TABLET PO ×3 (13:52→22:47)
--- NOTE | 2020-05-07 14:08 | CM.IDA ---
Initial DCP Assessment Note Pt is a 64 yo female, resident of [place], now POD#1 from Rt knee surgery w/ Dr Beck PCP: Becky Rod Payer: Annabel Nino According to Lynsey, PT, patient has been cleared to return home, HH recommended. Patient does have two flights of stairs to get into her apt, patient states she will use crutches to get up these...patient has not arranged assistance, has not obtained DME and has not arranged for outpatient PT. Met w/patient to introduce role. Patient in good spirits, states she has had multiple surgeries in the past. Discussed HH and patient agreeable to HH PT only. Patient explains she has talked a lot with [facility] re: available resources. Patient states she use to have a cg but that did not work out. This VALVE SEATER OPERATOR asks if this was a cg through [facility] (?) and patient was not sure. Patient has no HH agency preference. ROXY Santiago now seeing patient for afternoon session and attempting stair training (w/crustches or?) Will plan to follow closely, will ask DERICK Gutiérrez for assist w/the HH referral. RAMAKRISHNA Fischer
--- NOTE | 2020-05-07 14:23 | PC.NURSE ---
Assess- Per report from Noc shift patient was given order for iv dilaudid every two hours and has been asking for it. This RN gave patient iv dilaudid x1, and float nurse also administered 0.5mg. Patient is manipulative with staff, stated yesterday. I am 64 years old and I have earned it, I am happy as long as I get what I want. Nothing seems to please patient, she is bossy to staff, has gotten out of bed once by herself on this shift, physical therapy in room now assisting patient. She asks for ice packs about every hour, and is very precise with what she wants. She is appropriate with care, but complains frequently about everything, nothing seems to make her happy. MILDRED Maddox ordered patient to have po dilaudid 4mg as needed q 3 hours for discomfort, this seems to have been helpful to her. IV dilaudid has been d/cd. Patient may go home tomorrow.
--- NOTE | 2020-05-07 14:50 | CM.DPNOTE ---
Faxed order and face to face per Yudelka Tran . Received fax confirmation. Marla Pizarro CM Asst.
--- NOTE | 2020-05-07 15:27 | PT.IPTN ---
Current Diagnoses Unilateral primary osteoarthritis, right knee (05/07/20) Surgery Performed Operation Date: 05/06/20 07:45 Actual Procedures p Total Knee Arthroplasty(Right) - Hanna Beck MD Physical Therapy Treatment Note M2 PT-IP Current Condition Start: 05/06/20 16:05 Freq: NEEDED Status: Active Protocol: Document 05/06/20 14:49 AB (Rec: 05/06/20 16:38 AB [id number]) Physical Therapy Current Condition Current Condition Evaluation Date 05/06/20 Treatment Diagnosis s/p R TKA; difficulty in walking Onset Date 05/06/20 Weight Bearing Status Weight Bearing Status Weight Bear as Tolerated Allowed Weight Bearing Amount (enter % WBAT RLE or #) (%) M3 PT-IP Subjective Start: 05/06/20 16:05 Freq: NEEDED Status: Active Protocol: Document 05/07/20 14:27 SP (Rec: 05/07/20 16:00 SP [id number]) Subjective Physical Therapy Visit Type Type Treatment Note Visit Start Time 14:27 Visit Stop Time 15:27 Total Visit Minutes 60 Number of WAREHOUSE DIRECTOR Visits 2 Physical Therapy Visit Comments Patient Comments Pt was walking around room near door using FWW when arrived for therapy, stated I need to sit and brief rest with a cold pack before we go do the stairs, while you get the w/c. Therapy Pain Assessment Pain When Pain Assessed At Rest Pain Present Pain Present Pain Reported Location overall Intensity 8 Scale Used 8/10 at rest, 9/10 w/ mobility Pain Behaviors Facial Grimacing,Moaning, Restlessness Pain Management Techniques Apply Cold,Re-positioning, Timing of Activity with Medications M4 PT-IP Mobility and Gait Start: 05/06/20 16:05 Freq: NEEDED Status: Active Protocol: Document 05/07/20 14:27 SP (Rec: 05/07/20 16:00 SP [id number]) PT-Bed Mobility Assessment Supine to Sit Supine to Sit Standby Assistance Sit to Supine Sit to Supine Standby Assistance Scooting Scooting to Edge of Bed Independent Scooting Up and Down in Bed Independent PT-Transfer Assessment Sit to and From Stand Sit to and from Stand Standby Assistance,Use of Upper Extremities Equipment Transfer Assistive Device Gait Belt,Front Wheeled Walker Orthotic/Prosthetic Devices or Brace: No Transfers Transfer Destination Bed,Toilet,Wheelchair Transfer Technique pt ambulated using fWW Transfer Ability Level of Assist Standby Assistance,Use of Upper Extremities Comments Mobility Comments Pt agreeable to working with therapy with 09/21 pain walking around room using FWW when arrived SBA. Stand<>sit<> supine SBA w/self UE support with RLE in/out bed, and scoot up in bed. Rested in bed w/ CP on R knee approx 5 min while WAREHOUSE DIRECTOR got w/c and SPC for assist as needed for stair mgt . Pt ambulated to w/c in hallway SBA using FWW, transferred into w/c proper hand placement, wheeled to stairs. Ascend/descend 3 stairs 2 sets then seated rest then 2 sets total of 12 stairs R HR and SPC in LUE ascending before R shld couldn 't perform anymore. Pt wheeled back to room and ambulated to bathroom approx 30ft using fWW SBA, stand>sit SBA with cue for using grab bar for sturdy self support. Pt completed self hygiene sit> stand S from toilet using grab bar, ambulated to bed using FWW sBA- S, good pivot>sit> supine using BUe for self support. Pt had call light and all needs in reach. EXTENSION FORESTER was in room when left providing further needs of ice and discussed wanted p ossiblle meds for breakthrough due to pain increased 09/21>10/22 end of tx. Gait Assessment Gait Gait Assistance Required: Standby Assistance Distance (Feet) 30 Able to Maintain Weight Bearing Status Yes During Gait Assistive Devices Assistive Device Front Wheeled Walker Orthotic/Prosthetic Devices or Brace: No Gait Deviations General Gait Pattern Antalgic,Decreased Stride Length,Decreased Feet Clearance,Flexed Trunk,Step-to Gait Factors Limiting Gait Function Factors Limiting Gait Function Decreased Activity Tolerance, Decreased Strength,Difficulty Following Directions,Limited Range of Motion,Pain Comments Gait Comments WAREHOUSE DIRECTOR adjusted FWW down 2 notches with improved R shld pain during UE WB on FWW during gait. Cued R knee flexion and heel toe phasing. Pt limited in distance due to pain. Stair Climbing Assessment Evaluation Level of Assist On Stairs Contact Guard Assistance Devices Stair Climbing Assistive Devices Straight Cane,Right Railing Technique/Endurance Stair Climbing Direction Ascend and Descend Stair Climbing Technique Step to Step Number of Steps Climbed 3 Stair Climbing Set # Repetitions (reps) 4 Comments Stair Climbing Comments Pt complete 2 sets 3 stairs with seated rest between for rest recovery. Used SPC in LUE , when done stated the cane was helpful but uses B UE on one HR. Will assess this strategy tomorow am. PT-Balance Assessment Sitting Balance and Reactions Static Sitting Balance Ability Normal Dynamic Sitting Balance Ability Normal Standing Balance and Reactions Static Standing Balance Ability Good Dynamic Standing Balance Ability Fair Device Used FWW M5 PT-IP Objective Assessments Start: 05/06/20 16:05 Freq: NEEDED Status: Active Protocol: Document 05/06/20 14:49 AB (Rec: 05/06/20 16:38 AB [id number]) Orientation Orientation/Cognition Level of Alertness Alert Orientation Name,Age,Birthday,Month,Date, Year,Day of Week,Place, Situation Language Function Ability No Deficits Noted Safety Awareness Decreased Safety Awareness Gross Range of Motion Lower Extremity ROM Impairments unable to check R knee range due to pt's refusal to bend R knee Strength Comments Strength Comments MMT not tested due to pt's refusal to bend R knee Sensation Assessment Sensation Gross Sensation WNL M6 PT-IP Treatment Start: 05/06/20 16:05 Freq: NEEDED Status: Active Protocol: Document 05/07/20 14:27 SP (Rec: 05/07/20 16:00 SP [id number]) Physical Therapy Treatment Education Education Provided Precautions,Weight Bearing Status,Safety M7 PT-IP Assessment and Plan Start: 05/06/20 16:05 Freq: NEEDED Status: Active Protocol: Document 05/07/20 14:27 SP (Rec: 05/07/20 16:00 SP [id number]) PT Summary Assessment and Plan Potential Rehabilitation Potential Fair Status of Condition at Evaluation Evolving Summary Impairments Pain,ROM,Strength,Balance, Coordination,Sensation,Tone, Cognition,Bed Mobility, Transfers,Gait,Activity Tolerance Progress Towards Goals Progressing Toward Goals,Slow Progress due to Pain,Slow Progress due to Activity Tolerance Assessment Summary Pt was self motivating during tx even though in 8/10 pain. Pt requires increased time to perform all mobility due to need for rest breaks due to pain. Pt will need FWW at d/c, pt states she will have someone to help her get into her home but will need to climb two flights of stairs. Pt agreeable to PT. Goals Bed Mobility Goal Independent Transfer Goal Independent,Crutches Gait Goal Independent,Crutches Gait Distance 100 Other Goals improve ambulation using SPC 150 ft mod I up/down 12 steps R rail; 4 steps L rail, 2 steps without rails using crutches/AD mod I Days to Meet Goals 5 Frequency of Treatment Frequency Of Treatment Twice a Day Treatment Plan Physical Therapy Treatment Plan Bed Mobility Training,Transfer Training,Gait Training, Therapeutic Exercise,Balance Retraining,Post Op Education, Discharge Planning,Hot or Cold Pack,Neuromuscular Re-ed, Coordination Retraining,Manual Therapy Other Recommendations and Next Treatment stair climbing BUE on 1 HR, Focus gait using FWW, ther ex. Recommendations To Nursing Amount of Assist Needed Standby Assistance Discharge Recommendations PT Discharge Recommendations Home with Assistance,Home Health Equipment Needed for Home Before FWW (pt does not have crutches Discharge , [facility] [place] [facility] Transportation Needs at Discharge Private Vehicle
[2020-05-07] MEDS: OXYCODONE IR 5 MG TABLET PO (16:20)
[2020-05-07] MEDS: PRAMIPEXOLE 0.25 MG TABLET 0.75 MG PO (20:31)
--- NOTE | 2020-05-07 21:04 | PC.NURSE ---
Addendum entered by Jordan Beauchamp R.N. 05/07/20 23:36: Daughter asks to speak with nurse. Daughter is very upset about medication issues. Daughter goes on to say, You knew she was coming in and you need to take responsibility for messing up. Informed daughter that multiple times this nurse asked her mother if there was a friend or family member that was able to bring in medication. This was asked earlier in the evening at 1999 when issue had arise. Patient refused to call any friends or family stating It is no my responsibility to call someone, this is a small hospital and small community someone will need to go to my pharmacy and retrieve it themselves. Several occasions this was discussed and patient was explained that because the hospital does not stock said medication it is unknown if they will be able to stock it tomorrow and in a timely manner. Asked multiple times if again she knew someone that could bring in home stock. Patient refused to call anyone an states its not my responsibility to take care of this. Addendum entered by Jordan Beauchamp R.N. 05/07/20 22:59: Patient cont. to be upset given the medication situation. Patient is yelling at this nurse stating someone is going to pay for this. Patient yelled you this nurse needs to take responsibility for this mess up. Addendum entered by Jordan Beauchamp R.N. 05/07/20 22:57: Patient is impulsive this evening getting up to the bathroom, refused to use her call light. States I am a 64 year old woman and if I need to use the bathroom I am not going to wait for you to help me. Patient was impulsive getting out of the bed to close the door. Bed alarm active, call light w/in reach. Addendum entered by Jordan Beauchamp R.N. 05/07/20 21:07: Home med: Trintellix. Patient states she received medication last night but nothing was scanned and this nurse spoke with pharmacy and pharmacy states they DO NOT have this medication. Patient was informed by this and was very unhappy to hear that she didn't received medication. Patient states it is not my reasonability to get my home medication brought to the hospital. Patient states she verified all meds with someone before surgery and this should have been handled and the hospital is responsible for getting all her meds she needs for her stay. Informed patient that there is a possibility that said medication may not be available for hospital to retrieve. Asked if there was anyone that would be able to bring said medication to hospital from her home. Patient became very angry and yelling at this nurse. Patient is refusing care at times and didn't want this nurse to administer neb treatment in the absence of RT states are you a respiratory therapist? This nurse stated, No, I am your nurse and I too am qualified to give you those medications if needed. Patient continued to yell and scream to this nurse. Patient had a friend on speaker phone the whole time during the conversation. Friend yelled Oh my god while nurse was still in the room and patient was yelling. Original Note: Patient extreamily upset regarding situation about home medication. Pharm does not have home medication. Pt is upset that pharmacy does not carry medication in ou
--- NOTE | 2020-05-07 21:33 | RT ---
Called by ILIA Ortega to give patient a treatment. Told ILIA Ortega that I was in ED doing an EKG for another patient with chest pain AND would be there [place]. Went immediately to room when able to find RN and patient having a confrontation. Attempted to diffuse situation by clarifying respiratory meds with patient which she stated were entered all wrong. Patient agitated and giving me conflicting doses and times. Attempted to clarify several times. Listened to patient's frustrations and shared my personal experience with my own asthma diagnosis to build trust. Patient finally agreeable to conversation about what respiratory meds she takes at home and was able to have a calm discussion with this RT. Will be changing meds to home regimen. Patient stated she has not had her anti-depressant in a few nights and she feels that this is why she is crabby. This RT asked for the name of her anti-depressant and checked with ILIA Ortega about its availability. ILIA Ortega informed me of the situation regarding this and that pharmacy does not have it on formulary. Patient was supposed to bring this medication in with her but says she was not told to do this. Says she was abruptly told on Sunday that she was having surgery today and that the whole thing has been a mess. Did active listening. Will return to see patient at 0300 for the nebulizer treatment she is requesting with the meds she is requesting: xopenex and atrovent. Gabrielle Rodríguez, KNUCKLER
[2020-05-07] MEDS: MIRTAZAPINE 7.5 MG TABLET PO (22:48)
[2020-05-08] VITALS (13 sets, daily range): BP systolic 104–129; BP diastolic 54–80; PULSE 74–94; RESP 14–20; TEMP 36.5–37.2; O2SAT 93–97
[2020-05-08] MEDS: VORTIOXETINE 20 MG 20 EACH PO ×2 (00:20→20:17)
[2020-05-08] MEDS: OXYCODONE IR 5 MG TABLET PO (01:23)
[2020-05-08] MEDS: IBUPROFEN 400 MG TABLET PO ×6 (01:23→20:16)
--- NOTE | 2020-05-08 01:58 | PC.NURSE ---
At approx 0015, pt's daughter arrived with pt's missing medication- Trintillex, omeprazole, and diazepam. Pt reports to this RN that the medication Trintillex had not been taken x3 days and is usually taken at night. Trintillex 20 mg administered from pt's own supply at 0020. Coordinator Rubina placed all three medications in night pharmacy.
[2020-05-08] MEDS: LEVALBUTEROL 1.25 MG/0.5 ML NEB INH ×6 (03:00→23:27)
[2020-05-08] MEDS: IPRATROPIUM 0.5 MG/2.5 ML NEB INH ×5 (03:03→23:27)
[2020-05-08] MEDS: HYDROMORPHONE 4 MG TABLET PO ×4 (05:13→20:16)
[2020-05-08] MEDS: polyethylene glycoL 3350 17 GM POWD.PACK PO ×2 (05:32→13:08)
[2020-05-08] MEDS: PANTOPRAZOLE 40 MG TABLET PO ×2 (06:33→20:21)
[2020-05-08] MEDS: BUDESONIDE FORMOTEROL 2 EACH INH (08:07)
[2020-05-08] MEDS: DOCUSATE 100 MG CAPSULE PO ×2 (09:04→20:16)
[2020-05-08] MEDS: ACETAMINOPHEN 325 MG TABLET 650 MG PO ×3 (09:04→20:16)
[2020-05-08] MEDS: GABAPENTIN 600 MG TABLET PO ×4 (09:04→20:16)
[2020-05-08] MEDS: ASPIRIN EC 81 MG TABLET PO ×2 (09:04→20:15)
[2020-05-08] MEDS: POTASSIUM CHLORIDE 20 MEQ TAB 10 MEQ PO (09:05)
[2020-05-08] MEDS: FUROSEMIDE 40 MG TABLET PO (09:05)
[2020-05-08] MEDS: hydrOXYzine pamoate 25 MG CAPSULE PO (09:06)
[2020-05-08] MEDS: FLUTICASONE 120 SPRAY/16 GM SPRAY.SUSP NASAL ×2 (09:07→20:16)
--- NOTE | 2020-05-08 10:28 | PM.PNPO.1 ---
Subjective Subjective Date Patient Seen: 05/08/20 Time Patient Seen: 10:28 Interval history: Patient still having significant pain. Patient states she has had difficulty working physical therapy 2nd to her fibromyalgia and right knee pain. Patient states she lives alone. Exam Vital Signs (past 8 hours): - 05/08/20 03:15 05/08/20 03:40 05/08/20 08:07 Temperature 98.9 F Pulse Rate 74 77 77 Respiratory Rate 14 18 16 Blood Pressure 129/80 Pulse Oximetry 97 95 95 Oxygen Delivery Method Room Air Oxygen Flow Rate 0 Narrative Exam Narrative: 64-year-old female resting comfortably in bed in no apparent distress. Right knee dressing is Clean, dry, intact.. Motor functions intact bilateral lower extremities. Sensation grossly intact to light touch bilateral lower extremities. Both legs are warm and dry. Objective Labs Result Diagrams: 05/07/20 05:11 [facility] Medical History Anemia Anxiety Asthma Chronic back pain Chronic cough Depression Femur fracture, left Fibromyalgia Fractures GERD (gastroesophageal reflux disease) Hiatal hernia Recurrent sinusitis Venous insufficiency (chronic) (peripheral) Surgical History Anesthesia History of eye surgery (~1973) History of foot surgery History of hysterectomy (~1979) History of shoulder surgery (~2011) History of tonsillectomy (~1975) Hx of bilateral cataract extraction Family History Mother Heart disease Social History marital status: number of children: 1 household members: none lives independently: Yes caregiver/support person: Yes (3 afternoons per week) pets and animals: Yes occupational status: disabled Smoking Status: Never smoker alcohol intake: never substance use type: does not use Assessment & Plan Post-op Postoperative Procedures: Procedures Operation Date: 05/06/20 07:45 Actual Procedures Side Surgeon p Total Knee Arthroplasty Right Hanna Beck MD Postop day 2 status post right total knee arthroplasty. Patient progressing slower than expected due to pain and fibromyalgia. Strongly encouraged her to work with physical therapy. Discharge home with home health and or prison facility tomorrow. Quality VTE Deep Vein Thrombosis/Pulmonary Embolism Present on Admission: No
--- NOTE | 2020-05-08 11:23 | PT.IPTN ---
Current Diagnoses Unilateral primary osteoarthritis, right knee (05/07/20) Surgery Performed Operation Date: 05/06/20 07:45 Actual Procedures p Total Knee Arthroplasty(Right) - Hanna Beck MD Physical Therapy Treatment Note M2 PT-IP Current Condition Start: 05/06/20 16:05 Freq: NEEDED Status: Active Protocol: Document 05/06/20 14:49 AB (Rec: 05/06/20 16:38 AB [id number]) Physical Therapy Current Condition Current Condition Evaluation Date 05/06/20 Treatment Diagnosis s/p R TKA; difficulty in walking Onset Date 05/06/20 Weight Bearing Status Weight Bearing Status Weight Bear as Tolerated Allowed Weight Bearing Amount (enter % WBAT RLE or #) (%) M3 PT-IP Subjective Start: 05/06/20 16:05 Freq: NEEDED Status: Active Protocol: Document 05/08/20 10:30 CLB (Rec: 05/08/20 11:59 CLB [id number]) Subjective Physical Therapy Visit Type Type Treatment Note Visit Start Time 10:30 Visit Stop Time 11:23 Total Visit Minutes 53 Number of SECURITY CONTROL ASSESSOR Visits 3 Physical Therapy Visit Comments Patient Comments Pt states she is running a fever and needs her temp checked. Pt states that even though her temp seems to be in normal range it is high for her as she has normal low temp . Therapy Pain Assessment Pain When Pain Assessed At Rest Pain Present Pain Present Pain Reported M4 PT-IP Mobility and Gait Start: 05/06/20 16:05 Freq: NEEDED Status: Active Protocol: Document 05/08/20 10:30 CLB (Rec: 05/08/20 11:59 CLB [id number]) PT-Bed Mobility Assessment Supine to Sit Supine to Sit Standby Assistance Sit to Supine Sit to Supine Standby Assistance Scooting Scooting to Edge of Bed Independent Scooting Up and Down in Bed Independent PT-Transfer Assessment Sit to and From Stand Sit to and from Stand Standby Assistance,Use of Upper Extremities Equipment Transfer Assistive Device Gait Belt,Front Wheeled Walker Orthotic/Prosthetic Devices or Brace: No Transfers Transfer Destination Bed,Wheelchair Transfer Ability Level of Assist Standby Assistance,Use of Upper Extremities Comments Mobility Comments Pt states she doesn't feel well but will do therapy anyway. Pt is IND-SBA for all bed mobility. Pt ambulated ~ 20ft to WC w/FWW/SBA, pt SBA with good safety awareness with sitting in WC. Pt then transport to therapy stairs in WC. Pt stood SBA and was able to climb three steps using both hands on right rail. Pt able to climb three steps x3. Pt then ambulated back to room ~100ft w/FWW/SBA. Pt using step thru gait pattern with slow pacing. Pt has good safety awareness during all mobility. Once back in room pt is SBA to sit on EOB and then able to get RLE onto bed and able to position herself in bed for comfort. SECURITY CONTROL ASSESSOR went over exercises with pt using exercise sheet from total knee replacement packet. Pt able to perform all ther ex with AAROM for HS and SLR, pt refused sitting in chair so knee flexion while sitting was demonstrated. SECURITY CONTROL ASSESSOR left room to get ice packs, upon return to room pt was up and out of bed independently and had walked around bed with use of bed rails and foot board to berry picker pillow that had fallen off bed. Pt ambulated back around bed holding onto bed and was able to sit and get herself back into bed independently. RN entered room to remove drain. SECURITY CONTROL ASSESSOR explained to pt that she was doing well with her mobility and would be safe to d/c home with friend assisting her into home and HH. Requested CM for FWW order. Pt left in room with RN present. Gait Assessment Gait Gait Assistance Required: Standby Assistance Distance (Feet) 100 Assistive Devices Assistive Device Gait Belt,Front Wheeled Walker Gait Deviations General Gait Pattern Antalgic,Decreased Stride Length,Decreased Feet Clearance Factors Limiting Gait Function Factors Limiting Gait Function Decreased Activity Tolerance, Decreased Strength,Difficulty Following Directions,Limited Range of Motion,Pain Comments Gait Comments Pt able to ambulated ~100ft w/ FWW/SBA and climb stairs SBA. Stair Climbing Assessment Evaluation Level of Assist On Stairs Standby Assistance Devices Stair Climbing Assistive Devices Right Railing Technique/Endurance Stair Climbing Direction Ascend and Descend Stair Climbing Technique Step to Step Number of Steps Climbed 3 Stair Climbing Set # Repetitions (reps) 3 Comments Stair Climbing Comments Pt completed three sets of three stairs using right rail SBA. M5 PT-IP Objective Assessments Start: 05/06/20 16:05 Freq: NEEDED Status: Active Protocol: Document 05/06/20 14:49 AB (Rec: 05/06/20 16:38 AB [id number]) Orientation Orientation/Cognition Level of Alertness Alert Orientation Name,Age,Birthday,Month,Date, Year,Day of Week,Place, Situation Language Function Ability No Deficits Noted Safety Awareness Decreased Safety Awareness Gross Range of Motion Lower Extremity ROM Impairments unable to check R knee range due to pt's refusal to bend R knee Strength Comments Strength Comments MMT not tested due to pt's refusal to bend R knee Sensation Assessment Sensation Gross Sensation WNL M6 PT-IP Treatment Start: 05/06/20 16:05 Freq: NEEDED Status: Active Protocol: Document 05/08/20 10:30 CLB (Rec: 05/08/20 11:59 CLB [id number]) Physical Therapy Treatment Exercises Exercises Ankle Pumps,Quad Sets,Heel Slides,Straight Leg Raises Education Education Provided Precautions,Weight Bearing Status,Safety M7 PT-IP Assessment and Plan Start: 05/06/20 16:05 Freq: NEEDED Status: Active Protocol: Document 05/08/20 10:30 CLB (Rec: 05/08/20 11:59 CLB [id number]) PT Summary Assessment and Plan Potential Rehabilitation Potential Fair Status of Condition at Evaluation Evolving Summary Impairments Pain,ROM,Strength,Balance, Coordination,Sensation,Tone, Cognition,Bed Mobility, Transfers,Gait,Activity Tolerance Progress Towards Goals Progressing Toward Goals Assessment Summary Pt able to increase gait distance to ~100ft. Pt able to climb three stairs x3 SBA. Pt is SBA for all bed mobility. Pt seems able to d/c home when medically stable with friend to assist her up stairs and HH . Goals Bed Mobility Goal Independent Transfer Goal Independent,Crutches Gait Goal Independent,Crutches Gait Distance 100 Other Goals improve ambulation using SPC 150 ft mod I up/down 12 steps R rail; 4 steps L rail, 2 steps without rails using crutches/AD mod I Days to Meet Goals 5 Frequency of Treatment Frequency Of Treatment Twice a Day Treatment Plan Physical Therapy Treatment Plan Bed Mobility Training,Transfer Training,Gait Training, Therapeutic Exercise,Balance Retraining,Post Op Education, Discharge Planning,Hot or Cold Pack,Neuromuscular Re-ed, Coordination Retraining,Manual Therapy Other Recommendations and Next Treatment gait, ther ex. Focus Recommendations To Nursing Amount of Assist Needed Standby Assistance Discharge Recommendations PT Discharge Recommendations Home with Assistance,Home Health Equipment Needed for Home Before FWW Discharge Transportation Needs at Discharge Private Vehicle
[2020-05-08] MEDS: OXYCODONE IR 10 MG TABLET PO (13:06)
--- NOTE | 2020-05-08 13:26 | PT.IPTN ---
Current Diagnoses Unilateral primary osteoarthritis, right knee (05/07/20) Surgery Performed Operation Date: 05/06/20 07:45 Actual Procedures p Total Knee Arthroplasty(Right) - Hanna Beck MD Physical Therapy Treatment Note M2 PT-IP Current Condition Start: 05/06/20 16:05 Freq: NEEDED Status: Active Protocol: Document 05/06/20 14:49 AB (Rec: 05/06/20 16:38 AB [id number]) Physical Therapy Current Condition Current Condition Evaluation Date 05/06/20 Treatment Diagnosis s/p R TKA; difficulty in walking Onset Date 05/06/20 Weight Bearing Status Weight Bearing Status Weight Bear as Tolerated Allowed Weight Bearing Amount (enter % WBAT RLE or #) (%) M3 PT-IP Subjective Start: 05/06/20 16:05 Freq: NEEDED Status: Active Protocol: Document 05/08/20 13:00 CLB (Rec: 05/08/20 13:51 CLB [id number]) Subjective Physical Therapy Visit Type Type Treatment Note Visit Start Time 13:00 Visit Stop Time 13:26 Total Visit Minutes 26 Number of FEATHER DRYING MACHINE OPERATOR Visits 4 Physical Therapy Visit Comments Patient Comments Pt up in room independently stating she is looking for shampoo so she can take a shower. Therapy Pain Assessment Pain When Pain Assessed During Mobility Pain Present Pain Present Pain Reported Location Right Knee Intensity 6 Scale Used Numeric (0 - 10) Description Tightness Pain Management Techniques Modification of Treatment, Timing of Activity with Medications M4 PT-IP Mobility and Gait Start: 05/06/20 16:05 Freq: NEEDED Status: Active Protocol: Document 05/08/20 13:00 CLB (Rec: 05/08/20 13:51 CLB [id number]) PT-Transfer Assessment Comments Mobility Comments Pt up ambulating in room w/o AD independently. Pt agreed to ambulate in [place]. Pt ambulated with antalgic gait but with improved feet clearance, step length and increased yovani. Pt ambulated around [facility] ~250ft w/FWW/SBA. Pt returned to room with BEAD PREPARER present for shower set up. Pt states her shoulders won't tolerate using crutches and she does not like the cane she has, pt would like FWW at d/c . Gait Assessment Gait Gait Assistance Required: Standby Assistance Distance (Feet) 250 Assistive Devices Assistive Device Gait Belt,Front Wheeled Walker Gait Deviations General Gait Pattern Antalgic Factors Limiting Gait Function Factors Limiting Gait Function Decreased Activity Tolerance, Decreased Strength,Difficulty Following Directions,Limited Range of Motion,Pain Comments Gait Comments see mobility comments M5 PT-IP Objective Assessments Start: 05/06/20 16:05 Freq: NEEDED Status: Active Protocol: Document 05/06/20 14:49 AB (Rec: 05/06/20 16:38 AB [id number]) Orientation Orientation/Cognition Level of Alertness Alert Orientation Name,Age,Birthday,Month,Date, Year,Day of Week,Place, Situation Language Function Ability No Deficits Noted Safety Awareness Decreased Safety Awareness Gross Range of Motion Lower Extremity ROM Impairments unable to check R knee range due to pt's refusal to bend R knee Strength Comments Strength Comments MMT not tested due to pt's refusal to bend R knee Sensation Assessment Sensation Gross Sensation WNL M6 PT-IP Treatment Start: 05/06/20 16:05 Freq: NEEDED Status: Active Protocol: Document 05/08/20 10:30 CLB (Rec: 05/08/20 11:59 CLB [id number]) Physical Therapy Treatment Exercises Exercises Ankle Pumps,Quad Sets,Heel Slides,Straight Leg Raises Education Education Provided Precautions,Weight Bearing Status,Safety M7 PT-IP Assessment and Plan Start: 05/06/20 16:05 Freq: NEEDED Status: Active Protocol: Document 05/08/20 13:00 CLB (Rec: 05/08/20 13:51 CLB [id number]) PT Summary Assessment and Plan Potential Rehabilitation Potential Fair Status of Condition at Evaluation Evolving Summary Impairments Pain,ROM,Strength,Balance, Coordination,Sensation,Tone, Cognition,Bed Mobility, Transfers,Gait,Activity Tolerance Assessment Summary Pt found up in room independently ambulating w/o AD. Pt increased ambulation distance to ~250ft with improved feet clearance, step length and increased yovani. Pt wanting to have shower after ambulation refusing ther ex. Pt seems able to d/c home when medically stable with friend to assist her up stairs and HH. Goals Bed Mobility Goal Independent Transfer Goal Independent,Crutches Gait Goal Independent,Crutches Gait Distance 100 Other Goals improve ambulation using SPC 150 ft mod I up/down 12 steps R rail; 4 steps L rail, 2 steps without rails using crutches/AD mod I Days to Meet Goals 5 Frequency of Treatment Frequency Of Treatment Twice a Day Treatment Plan Physical Therapy Treatment Plan Bed Mobility Training,Transfer Training,Gait Training, Therapeutic Exercise,Balance Retraining,Post Op Education, Discharge Planning,Hot or Cold Pack,Neuromuscular Re-ed, Coordination Retraining,Manual Therapy Other Recommendations and Next Treatment trial gait with cane/crutches Focus to determine LRAD. Recommendations To Nursing Amount of Assist Needed Standby Assistance Discharge Recommendations PT Discharge Recommendations Home with Assistance,Home Health Equipment Needed for Home Before FWW, cane or crutches Discharge depending on cane crutch trial next tx. Transportation Needs at Discharge Private Vehicle
--- NOTE | 2020-05-08 15:12 | CM.DPNOTE ---
JESSICA Lei Spoke w/ Ortho MILDRED García this morning; encouraged Ricky to discharge patient today. Patient cleared by physical therapy, FWW prescribed, patient ambulating room and completing her shower w/o AD indp. Patient's complaints of pain seem to fluctuate and are erratic. Ricky plans to keep patient this evening to get additional physical therapy, states patient is at high risk for readmission. Updated RN Coordinator Lynnette and PT team. [facility] Plan: TAYLOR expected Sunday, home via friend's [place] and [facility] PT JW
[2020-05-08] MEDS: MIRTAZAPINE 7.5 MG TABLET PO (20:16)
[2020-05-08] MEDS: PRAMIPEXOLE 0.25 MG TABLET 0.75 MG PO (20:17)
[2020-05-08] MEDS: KETOTIFEN FUMARATE 1 EACH EYE-BOTH (20:19)
[2020-05-08] MEDS: SODIUM CHLORIDE 0.9% FLUSH 10 ML IV (20:20)
[2020-05-09] MEDS: IBUPROFEN 400 MG TABLET PO ×3 (01:42→08:49)
[2020-05-09] MEDS: HYDROMORPHONE 4 MG TABLET PO ×3 (01:43→08:49)
[2020-05-09 05:15] VITALS: BP 119/67; PULSE 83; RESP 18; TEMP 37; O2SAT 93
[2020-05-09] MEDS: IPRATROPIUM 0.5 MG/2.5 ML NEB INH ×2 (05:41→08:36)
[2020-05-09] MEDS: LEVALBUTEROL 1.25 MG/0.5 ML NEB INH ×2 (05:42→08:36)
[2020-05-09 05:46] VITALS: PULSE 82; RESP 16; O2SAT 97
[2020-05-09 08:00] VITALS: BP 127/64; PULSE 93; RESP 18; TEMP 36.6; O2SAT 93
[2020-05-09 08:40] VITALS: PULSE 82; RESP 20; O2SAT 97
[2020-05-09] MEDS: DOCUSATE 100 MG CAPSULE PO (08:47)
[2020-05-09] MEDS: POTASSIUM CHLORIDE 20 MEQ TAB 10 MEQ PO (08:48)
[2020-05-09] MEDS: GABAPENTIN 600 MG TABLET PO (08:48)
[2020-05-09] MEDS: FUROSEMIDE 40 MG TABLET PO (08:48)
[2020-05-09] MEDS: ASPIRIN EC 81 MG TABLET PO (08:48)
[2020-05-09] MEDS: ACETAMINOPHEN 325 MG TABLET 650 MG PO (08:48)
[2020-05-09] MEDS: polyethylene glycoL 3350 17 GM POWD.PACK PO (08:50)
[2020-05-09] MEDS: FLUTICASONE 120 SPRAY/16 GM SPRAY.SUSP NASAL (08:53)
--- NOTE | 2020-05-09 09:39 | P.DS_ITS ---
History of Present Illness History of Present Illness Chief complaint: RIGHT TKA *OPB* Discharge Providers Provider Date of admission: 05/07/20 13:17 Discharge Date: 05/09/20 Primary care physician: Becky Rod PA-C Consults: 05/06/20 07:41 Consult to Anesthesiology Routine Comment: Consulting Provider: Anesthesiologist Reason for consultation: Regional block for post operative pain control 05/06/20 12:09 Consult to Discharge Planning Routine Comment: Consult to Physical Therapy Evaluate & Treat Comment: Physician Instructions: postop TKA protocol Consult to Respiratory Therapy Evaluate & Treat Comment: Physician Instructions: Evaluate and treat 05/07/20 14:37 Consult to Home Health Routine Comment: Reason For Exam: Home Health Upon DC 05/08/20 11:59 Consult to Physical Therapy Evaluate & Treat Comment: Physician Instructions: FWW for home use Discharge provider: Nathan Eisenberg MD Summary Hospital Course Discharge Diagnosis: right knee OA Hospital Course: Patient is status post right total knee arthroplasty. She was slow to mobilize with physical therapy due to pain. She is now cleared physical therapy safe for discharge to home. Status at Discharge Cognitive/behavioral status at discharge: oriented Overall status at discharge: patient is progressing back to baseline Time Spent with Patient Time spent: Greater than 30 minutes Exam Vital Signs (past 8 hours): - 05/09/20 05:15 05/09/20 05:46 05/09/20 08:00 Temperature 98.6 F 98 F Pulse Rate 83 82 93 H Respiratory Rate 18 16 18 Blood Pressure 119/67 127/64 Pulse Oximetry 93 97 93 05/09/20 08:40 Temperature Pulse Rate 82 Respiratory Rate 20 Blood Pressure Pulse Oximetry 97 Oxygen Delivery Method Room Air Oxygen Flow Rate 0 Narrative Exam Narrative: Neurovascular intact right lower extremity. Dressings clean dry and intact. Patient believes that she is having allergic reaction to the dressing. She is adamant that this dressing is changed out. I did warn her that the dressing this will be replaced with would not be a waterproof dressing and she states that she will keep the dressing dry. No signs of skin irritation or rashes Objective Labs Result Diagrams: 05/07/20 05:11 [facility] Medical History Anemia Anxiety Asthma Chronic back pain Chronic cough Depression Femur fracture, left Fibromyalgia Fractures GERD (gastroesophageal reflux disease) Hiatal hernia Recurrent sinusitis Venous insufficiency (chronic) (peripheral) Surgical History Anesthesia History of eye surgery (~1973) History of foot surgery History of hysterectomy (~1979) History of shoulder surgery (~2011) History of tonsillectomy (~1975) Hx of bilateral cataract extraction Family History Mother Heart disease Social History marital status: number of children: 1 household members: none lives independently: Yes caregiver/support person: Yes (3 afternoons per week) pets and animals: Yes occupational status: disabled Smoking Status: Never smoker alcohol intake: never substance use type: does not use Discharge Assessment & Plan Assessment and Plan Assessment: Patient is a 64-year-old female who is now status post right total knee arthroplasty. Her postoperative course was slowed by pain. Pain is under better control at this time point. Plan for discharge to home. Discharge Plan Discharge Plan Patient Disposition: Home Discharge orders & Medications Prescriptions: New aspirin 81 mg Tablet,Delayed Release (Dr/Ec) 81 mg PO BID 42 Days Qty: 84 RF: 0 ibuprofen 400 mg Tablet 400 mg PO Q4HR 28 Days RF: 0 docusate sodium [DOK] 100 mg Capsule 100 mg PO BID 14 Days Qty: 28 RF: 0 hydromorphone 4 mg Tablet 4 mg PO Q4-6H PRN (Reason: Pain, Severe (7-10)) Qty: 60 RF: 0 Continued potassium chloride 20 mEq tablet extended release 10 meq PO DAILY PRN (Reason: Take w/lasix) RF: 0 diazepam 5 mg tablet 5 mg PO BID PRN (Reason: Anxiety) RF: 0 fluticasone propionate 50 mcg/actuation spray,suspension 1 spray intranasal BID RF: 0 gabapentin [Neurontin] 600 mg tablet 600 mg PO QID RF: 0 mirtazapine 7.5 mg tablet 7.5 mg PO BEDTIME Qty: 30 RF: 2 Hold Instructions: not currently taking Trintellix 20 mg tablet 20 mg PO DAILY Qty: 30 RF: 2 hydroxyzine HCl 25 mg tablet 25 mg PO BID PRN (Reason: Pain (Scale Score 1-3)) RF: 0 promethazine 25 mg tablet 25 mg PO Q8H PRN (Reason: nausea and vomiting) Qty: 12 RF: 1 levalbuterol HCl 0.63 mg/3 mL solution for nebulization 0.63 mg INHALATION Q8H PRN (Reason: shortness of breath or wheezing) Qty: 90 RF: 11 methocarbamol 750 mg tablet 750 mg PO TID PRN (Reason: Spasms) Qty: 90 RF: 3 pramipexole [Mirapex] 0.75 mg tablet 0.75 mg PO BEDTIME Qty: 90 RF: 3 epinephrine 0.3 mg/0.3 mL auto-injector 0.3 mg IM ONCE PRN (Reason: Allergic Reaction) Qty: 1 RF: 11 budesonide-formoterol [Symbicort] 80-4.5 mcg/actuation HFA aerosol inhaler 2 puff INHALATION BID Qty: 10.2 RF: 0 sumatriptan succinate 100 mg tablet 100 mg PO ONCE PRN (Reason: migraine headache) Qty: 14 RF: 3 montelukast 10 mg tablet 10 mg PO BEDTIME PRN (Reason: Allergy Symptoms) Qty: 90 RF: 3 rizatriptan 10 mg tablet 10 mg PO .COMPLEX PRN (Reason: migraine headache) Qty: 12 RF: 3 levalbuterol tartrate [Xopenex HFA] 45 mcg/actuation HFA aerosol inhaler 2 inhalation INHALATION BID RF: 0 lidocaine 5 % Ointment 1 applic TOPICAL TID PRN (Reason: pain) RF: 0 ketotifen fumarate [Zaditor] 0.025 % (0.035 %) Drops 1 drp OPHTHALMIC (EYE) BID RF: 0 furosemide 40 mg tablet 40 mg PO DAILY PRN (Reason: edema) Qty: 30 RF: 0 sennosides [senna] 8.6 mg Tablet 17.2 mg PO BEDTIME PRN (Reason: Constipation) RF: 0 diphenhydramine HCl [Benadryl] 25 mg Capsule 75 mg PO DAILY PRN (Reason: Allergy Symptoms) RF: 0 omeprazole 40 mg Capsule,Delayed Release(Dr/Ec) 40 mg PO BID RF: 0 Discontinued ibuprofen 800 mg Tablet 800 mg PO Q8H PRN (Reason: Pain (Scale Score 4-6)) RF: 0 acetaminophen 500 mg Tablet 1,000 mg PO Q6H PRN (Reason: Pain (Scale Score 1-3)) RF: 0 oxycodone 5 mg tablet 5 mg PO QID PRN (Reason: Pain (Scale Score 4-6)) RF: 0 Follow up/Referrals: Becky Rod PA-C [Primary Care Provider] - Hanna Beck MD [Physician] - 2 Weeks Diet/Activity/Treatments Diet: Regular Activity: ambulate as tolerated, work on gentle ROM Cold/Heat Therapy: Elevate and ice as needed for pain control Skin/Wound/Dressing Care Dressing: Leave dressing in place, do not get dressing wet. Visit Report/Discharge Packet Instructions: DI for Knee Replacement, DI for Prescription Opioid Use Discharge Data Primary Care Provider: Becky Rod Attending Provider: Hanna Beck Quality VTE Deep Vein Thrombosis/Pulmonary Embolism Present on Admission: No
--- NOTE | 2020-05-09 10:12 | PT.IPTN ---
Current Diagnoses Unilateral primary osteoarthritis, right knee (05/07/20) Surgery Performed Operation Date: 05/06/20 07:45 Actual Procedures p Total Knee Arthroplasty(Right) - Hanna Beck MD Physical Therapy Treatment Note M2 PT-IP Current Condition Start: 05/06/20 16:05 Freq: NEEDED Status: Active Protocol: Document 05/06/20 14:49 AB (Rec: 05/06/20 16:38 AB [id number]) Physical Therapy Current Condition Current Condition Evaluation Date 05/06/20 Treatment Diagnosis s/p R TKA; difficulty in walking Onset Date 05/06/20 Weight Bearing Status Weight Bearing Status Weight Bear as Tolerated Allowed Weight Bearing Amount (enter % WBAT RLE or #) (%) M3 PT-IP Subjective Start: 05/06/20 16:05 Freq: NEEDED Status: Active Protocol: Document 05/09/20 09:35 ASMITA (Rec: 05/09/20 10:12 LJ [id number]) Subjective Physical Therapy Visit Type Type Treatment Note Visit Start Time 09:35 Visit Stop Time 10:02 Total Visit Minutes 27 Number of ACQUISITIONS LOGISTICS ANALYST Visits 5 Physical Therapy Visit Comments Patient Comments Pt up in room independently packing to go home. Willing to trial stairs Therapy Pain Assessment Pain When Pain Assessed During Mobility Pain Present Pain Present Pain Reported M4 PT-IP Mobility and Gait Start: 05/06/20 16:05 Freq: NEEDED Status: Active Protocol: Document 05/09/20 09:35 ASMITA (Rec: 05/09/20 10:12 LJ [id number]) PT-Transfer Assessment Comments Mobility Comments Pt up in room standing next to bed packing bags for DC this am. Pt ambulated to foot of bed to don gait belt and retrieve FWW. Pt ambulated in hallway to stairs nd back then independently sat on edge of bed using UEs. Gait Assessment Gait Gait Assistance Required: Standby Assistance Distance (Feet) 250 Assistive Devices Assistive Device Gait Belt,Straight Cane,Front Wheeled Walker Gait Deviations General Gait Pattern Antalgic Factors Limiting Gait Function Factors Limiting Gait Function Decreased Activity Tolerance, Decreased Strength,Difficulty Following Directions,Limited Range of Motion,Pain Comments Gait Comments Pt ambuulate to stairs from room using FWW. Performed x2 trials of stairs then used SPC to return to room. Due to previous shoulder injury pt switched sides using cane with either side being adequate for stabilization. Pt slow but able to increase ROM and lessen antalgic gait when cued . Stair Climbing Assessment Evaluation Level of Assist On Stairs Standby Assistance Devices Stair Climbing Assistive Devices Right Railing Technique/Endurance Stair Climbing Direction Ascend and Descend Stair Climbing Technique Step to Step Number of Steps Climbed 3 Stair Climbing Set # Repetitions (reps) 2 Comments Stair Climbing Comments Pt able to use stairs slowly and safely using right rail SBA M5 PT-IP Objective Assessments Start: 05/06/20 16:05 Freq: NEEDED Status: Active Protocol: Document 05/06/20 14:49 AB (Rec: 05/06/20 16:38 AB [id number]) Orientation Orientation/Cognition Level of Alertness Alert Orientation Name,Age,Birthday,Month,Date, Year,Day of Week,Place, Situation Language Function Ability No Deficits Noted Safety Awareness Decreased Safety Awareness Gross Range of Motion Lower Extremity ROM Impairments unable to check R knee range due to pt's refusal to bend R knee Strength Comments Strength Comments MMT not tested due to pt's refusal to bend R knee Sensation Assessment Sensation Gross Sensation WNL M6 PT-IP Treatment Start: 05/06/20 16:05 Freq: NEEDED Status: Active Protocol: Document 05/09/20 09:35 LJ (Rec: 05/09/20 10:12 LJ [id number]) Physical Therapy Treatment Education Education Provided Safety M7 PT-IP Assessment and Plan Start: 05/06/20 16:05 Freq: NEEDED Status: Active Protocol: Document 05/09/20 09:35 LJ (Rec: 05/09/20 10:12 LJ [id number]) PT Summary Assessment and Plan Potential Rehabilitation Potential Fair Status of Condition at Evaluation Evolving Summary Impairments Pain,ROM,Strength,Balance, Coordination,Sensation,Tone, Cognition,Bed Mobility, Transfers,Gait,Activity Tolerance Assessment Summary Pt standing by bed packing bags to DC home. She has shown improvement in flexion of involved knee during ambulation and is able to ambulate safely using SPC in either hand which she states is necessary due to shoulder pain. She has met all goals and is safe to DC home Goals Bed Mobility Goal Independent Transfer Goal Independent,Crutches Gait Goal Independent,Crutches Gait Distance 100 Other Goals improve ambulation using SPC 150 ft mod I up/down 12 steps R rail; 4 steps L rail, 2 steps without rails using crutches/AD mod I Days to Meet Goals 5 Frequency of Treatment Frequency Of Treatment Twice a Day Treatment Plan Physical Therapy Treatment Plan Bed Mobility Training,Transfer Training,Gait Training, Therapeutic Exercise,Balance Retraining,Post Op Education, Discharge Planning,Hot or Cold Pack,Neuromuscular Re-ed, Coordination Retraining,Manual Therapy Other Recommendations and Next Treatment trial gait with cane/crutches Focus to determine LRAD. Recommendations To Nursing Amount of Assist Needed Standby Assistance Discharge Recommendations PT Discharge Recommendations Home with Assistance,Home Health Equipment Needed for Home Before SPC Discharge
--- NOTE | 2020-05-09 11:04 | CM.DPC ---
Addendum entered by Margie Beck 05/09/20 14:08: Received call from RN/Rashel, she reports patient called her after d/c and reported that her insurance will not cover the cost of prescription for dilaudid Instructed RN to have patient call orthopedic [employer] commerce consultant number for instruction. RAMAKRISHNA Villalba Original Note: DCP/continued: Received notification from RN that provider has d/c'd patient today. Faxed d/c summary to [facility]. In addition, placed call to [place] and spoke with Taqueria beltran confirms referral. Provided brochure to RN to provide to patient with d/c instructions. Per RN, no additional needs identified. All d/c planning previously done by CM team. P: Home today with [facility]. RAMAKRISHNA Villalba
--- NOTE | 2020-05-09 12:00 | PC.NURSE ---
Patient left with aquacel dressing clean dry and intact, without redness or drainage. Ambulating with cane per PT. Denies complaints at this time. Discharge instructions, home care handouts, and medications reviewed with patient, and she states understanding and has no further questions or concerns. Her friend is picking her up, and going to help her discharge to home. Patient escorted out via wheelchair by ELECTRIC MOTOR REPAIRMAN with all her belongings. Instructed to call Dr. Beck's office tomorrow to confirm/schedule follow up appointment within 2 weeks.
--- NOTE | 2020-05-10 14:16 | CM.DPNOTE ---
Late entry: Received a call from Jose A at [facility] approx. [phone] on 05/10/20 stating they are not contracted with [facility] and will have to decline services for this pt. Margie and Gisselle asked that I call Jose A back and have someone from [facility] the [facility] contact another [facility] facility for services. I did call [facility] and spoke to Jose A about 1415 who said that they would call and take care of this request. Marla Pizarro CM Asst.
--- NOTE | 2020-05-11 10:36 | CM.DPNOTE ---
Late entry: Faxed DC summary to [facility] per Mitchell's request on 05/11/20. Fax confirmation received. Marla Pizarro CM Asst.
== END 2020-05-09 11:45 | disposition home or self-care (01) ==
LOC: OR 15:14 → AC 15:14
PROVIDERS: Admitting Provider Orthopaedic Surgery; PCP Physician Assistant; Referring Provider Physician Assistant; Visit Provider Orthopaedic Surgery
PROC: 0SRC0JZ Replacement of Right Knee Joint with Synthetic Substitute, Open Approach (ICD-10-PCS; CPT 27447; principal; 2020-05-06 07:45)
DX: M17.11 Unilateral primary osteoarthritis, right knee (principal); E66.9 Obesity, unspecified; J45.909 Unspecified asthma, uncomplicated; K21.9 Gastro-esophageal reflux disease without esophagitis; M79.7 Fibromyalgia; F41.9 Anxiety disorder, unspecified
CPT/HCPCS: 27447; 36415; 73560; 85014; 85018; 94150; 94640; 94760; 97110; 97116; 97162; 97530; C1776; G0378; C9290; J0131; J1170; J1885; J2060; J2250; J2704; J3010; J7614

== ENCOUNTER 2020-05-13 17:20 | Emergency (ER) | payer OTHER, MEDICAID, SELFPAY ==
[2020-05-06 13:07] VITALS: BMI 35.4
[2020-05-13 17:25] VITALS: BP 167/80; PULSE 82; RESP 30; TEMP 37.2; O2SAT 96; BMI 33.6
--- NOTE | 2020-05-13 17:37 | DI.US.S_ITS ---
PROCEDURE: US PERIPH VENOUS LOW EXTREM RT INDICATIONS: eval for DVT TECHNIQUE: Real-time imaging, as well as color and pulse Doppler interrogation, were performed of the lower extremity deep veins from the inguinal ligament to the popliteal fossa. COMPARISON: None. FINDINGS: The common femoral, femoral and popliteal veins are normally compressible, and free of intraluminal thrombus. Color and pulse Doppler demonstrate normal phasic intraluminal flow. There is normal augmentation response to distal compression maneuver. IMPRESSION: No evidence of deep vein thrombosis involving the right lower extremity. Dictated by: Amaya Fletcher MD, PhD on 05/13/2020 at 18:46 Approved by: Amaya Fletcher MD, PhD on 05/13/2020 at 18:46
--- NOTE | 2020-05-13 18:18 | ED.EXTPRO ---
HPI - Extremity Problem General Chief complaint: Extremity Problem,Nontraumatic Stated complaint: right knee swelling s/p surgery Time Seen by Provider: 05/13/20 18:13 Source: patient Mode of arrival: Wheelchair Limitations: no limitations History of Present Illness HPI Narrative: This is a 64-year-old female who comes to the emergency department with complaint of right knee pain, swelling and low-grade temperatures. Patient had a knee replacement [address] Hanna Beck. Patient denies any temperatures greater than 100.4 F, she states she has had swelling. She saw Dr. Beck yesterday and had her bandage removed. There was obvious reaction to the bandage adhesive and decision was made to leave there area open. There is some mild redness along the incision in certain portions which she states some is better some is worse. There is no diffuse erythema surrounding that patient appreciates. Patient states she has been taking ibuprofen for pain at home. She denies any chest pain or pressure. She has had some shortness of breath which she attributes to her asthma and states that that was occurring prior to her surgery. She did use her inhaler yesterday with improvement. Patient denies any new numbness, tingling or weakness. She has had some nausea. She has not any vomiting. She denies any other new GI or urinary symptoms. Patient states she did drive herself today. Related Data Home Medications Medication Instructions Recorded Confirmed sennosides [senna] 17.2 mg PO BEDTIME PRN 09/20/18 05/06/20 potassium chloride 20 mEq 10 meq PO DAILY PRN 10/29/18 05/08/20 tablet,extended release levalbuterol tartrate 45 2 inhalation INHALATION BID gram 08/26/19 05/06/20 mcg/actuation aerosol inhaler diphenhydramine HCl [Benadryl] 75 mg PO DAILY PRN 10/26/19 05/06/20 diazepam 5 mg tablet 5 mg PO BID PRN tab 12/12/19 05/06/20 omeprazole 40 mg PO BID 02/10/20 05/06/20 lidocaine 1 applic TOPICAL TID PRN 02/24/20 05/06/20 ketotifen fumarate [Zaditor] 1 drp OPHTHALMIC (EYE) BID 03/02/20 05/08/20 fluticasone propionate 50 1 spray INTRANASAL BID 04/02/20 05/06/20 mcg/actuation nasal spray,suspension gabapentin 600 mg tablet 600 mg PO QID tab 04/02/20 05/06/20 hydroxyzine HCl 25 mg tablet 25 mg PO BID PRN 05/05/20 05/06/20 Previous Rx's Medication Instructions Recorded promethazine 25 mg tablet 25 mg PO Q8H PRN #12 tab 02/11/19 levalbuterol HCl 0.63 mg/3 mL 0.63 mg INHALATION Q8H PRN #90 ml 09/11/19 solution for nebulization methocarbamol 750 mg tablet 750 mg PO TID PRN #90 tab 09/29/19 pramipexole 0.75 mg tablet 0.75 mg PO BEDTIME #90 tab 09/29/19 epinephrine 0.3 mg/0.3 mL 0.3 mg IM ONCE PRN #1 ea 01/01/20 injection, auto-injector budesonide-formoterol HFA 80 2 puff INHALATION BID #10.2 gram 01/28/20 mcg-4.5 mcg/actuation aerosol inhaler montelukast 10 mg tablet 10 mg PO BEDTIME PRN #90 tab 02/23/20 rizatriptan 10 mg tablet 10 mg PO .COMPLEX PRN #12 tab 02/23/20 sumatriptan succinate 100 mg tablet 100 mg PO ONCE PRN #14 tab 02/23/20 furosemide 40 mg PO DAILY PRN #30 tab 03/04/20 Trintellix 20 mg tablet 20 mg PO DAILY #30 tab NS 04/02/20 mirtazapine 7.5 mg tablet 7.5 mg PO BEDTIME #30 tab 04/02/20 aspirin 81 mg PO BID 42 Days #84 tab 05/09/20 docusate sodium [DOK] 100 mg PO BID 14 Days #28 cap 05/09/20 hydromorphone 4 mg PO Q4-6H PRN #60 tab 05/09/20 ibuprofen 400 mg PO Q4HR 28 Days tab 05/09/20 promethazine 25 mg PO TID PRN #10 tab 05/13/20 Allergies Allergy/AdvReac Type Severity Reaction Status Date / Time latex Allergy Severe Rash Verified 05/13/20 17:30 morphine [MORPHINE] Allergy Severe Anaphylaxis Verified 05/13/20 17:30 Penicillins [PENICILLINS] Allergy Severe Anaphylaxis Verified 05/13/20 17:30 Sulfa (Sulfonamide Allergy Severe RASH Verified 05/13/20 17:30 Antibiotics) [SULFA (SULFONAMIDE ANTIBIOTICS)] azithromycin Allergy Intermediate Rash Verified 05/13/20 17:30 [From ZITHROMAX Z-MARILYN] cefuroxime [From Ceftin] Allergy Intermediate Rash Verified 05/13/20 17:30 sulfamethoxazole Allergy Intermediate RASH Verified 05/13/20 17:30 [From SEPTRA] trimethoprim [From SEPTRA] Allergy Intermediate RASH Verified 05/13/20 17:30 ciprofloxacin [From Cipro] Allergy Pt does Verified 05/13/20 17:30 not remember reaction Corticosteroids Allergy Swelling Verified 05/13/20 17:30 (Glucocorticoids) of Lip/Tongue/Throat cephalexin [From Keflex] AdvReac Severe Fever, Verified 05/13/20 17:30 Asthma, Tachycardia prednisone AdvReac Severe nausea and Verified 05/13/20 17:30 feels very weak, and axious verapamil AdvReac Intermediate Asthma Verified 05/13/20 17:30 symptoms zonisamide AdvReac Intermediate Asthma Verified 05/13/20 17:30 symptoms Review of Systems Review of Systems ROS Unobtainable: All systems reviewed & are unremarkable except as noted in HPI and below Patient History Medical History Anemia Anxiety Asthma Chronic back pain Chronic cough Depression Femur fracture, left Fibromyalgia Fractures GERD (gastroesophageal reflux disease) Hiatal hernia Recurrent sinusitis Venous insufficiency (chronic) (peripheral) Surgical History Anesthesia History of eye surgery (~1973) History of foot surgery History of hysterectomy (~1979) History of shoulder surgery (~2011) History of tonsillectomy (~1975) Hx of bilateral cataract extraction Family History Mother Heart disease Social History marital status: number of children: 1 household members: none lives independently: Yes caregiver/support person: Yes (3 afternoons per week) pets and animals: Yes occupational status: disabled Smoking Status: Never smoker alcohol intake: never substance use type: does not use Smoking Status: Never smoker alcohol intake frequency: holidays/special occasions only Substance Use Type: does not use and marijuana Exam Narrative Exam Narrative: GENERAL: Alert and oriented x three, female in mild distress. HEENT: Head normocephalic, atraumatic, EOMI, pupils reactive, face symmetric, moist mucous membranes NECK: Supple, full range of motion CARDIOVASCULAR: Regular rate and rhythm without murmurs, rubs or gallops. RESPIRATORY: Breath sounds equal bilaterally, no wheezes rales or rhonchi. ABDOMEN: Soft, nontender. Normoactive bowel sounds all 4 quadrants. No guarding or rebound, rigidity, no mass : No CVA tenderness EXTREMITIES: Decreased range of motion of the right knee. Patient is able to stand and weight bare for several steps to transfer to a wheelchair to go to the bathroom. Her incision is clean, dry and intact except for some very small gaps. There is some erythema at intermittent portions along the incision but not consistently along the entire length There is no erythema extending beyond the incision itself. Patient does have an erythematous small rash with raised bumps in a pattern consistent with allergic reaction the adhesive of patient's post-op bandage which was removed at the orthopedic office and patient was told to not replace. There is no purulent drainage or foul odor. There is no warmth to the knee. Patient does have edema throughout the knee and lower extremity. No clubbing noted. Neurovascularly intact in her right foot. NEUROLOGICAL: Cranial nerves II through XII grossly intact. Moving all extremities SKIN: Warm, dry, no petechiae, no rashes or lesions otherwise noted than above. Initial Vital Signs Initial Vital Signs: Vital Signs Temperature 98.9 F 05/13/20 17:25 Pulse Rate 82 05/13/20 17:25 Respiratory Rate 30 H 05/13/20 17:25 Blood Pressure 167/80 H 05/13/20 17:25 Pulse Oximetry 96 05/13/20 17:25 Course Orders Ordered: ED Orders 05/13/20 17:37 US periph venous low extrem rt Stat 05/13/20 17:58 Basic Metabolic Panel Stat C-Reactive Protein Quant Stat Complete Blood Count AUTO DIFF Stat Erythrocyte Sedimentation Rate Stat Discontinued Medications Ketorolac Tromethamine (Ketorolac 60 Mg/2 Ml Vial) 15 mg IV NOW ONE Stop: 05/13/20 18:28 Last Admin: 05/13/20 18:34 Dose: 15 mg Documented by: IFEANYI Ondansetron HCl (Ondansetron 4 Mg/2 Ml Inj) 4 mg IV NOW ONE Stop: 05/13/20 18:28 Last Admin: 05/13/20 18:34 Dose: 4 mg Documented by: IFEANYI Consultations Consultation #1: Dr. Eisenberg, plan for follow up with office for recheck. He will also update patient's surgeon Dr. Beck. Reviewed patients labs-CRP and ESR are both elevated which he states is expected postoperatively, imaging including DVT study which is negative, for physical evaluation and HPI. Time: 19:23 Consultation #2: Spoke with Dr. Eisenberg. Patient had contacted him directly after our conversation. We did discuss she is quite concerned about infection and uncomfortable with not being discharged home on antibiotics. We did discuss that she had been offered an office visit 05/14/20 in [facility] but patient felt uncomfortable traveling this far driving herself. Time: 20:05 Vital Signs Vital signs: Vital Signs - 8 hr 05/13/20 17:25 Temperature 98.9 F Pulse Rate 82 Respiratory Rate 30 H Blood Pressure 167/80 H Pulse Oximetry 96 MDM - Extremity (Nontraumatic) Lab Data Attestation: I reviewed the patient's lab results. Result diagrams: 05/13/20 17:58 05/13/20 17:58 Labs: Lab Results 05/13/20 05/13/20 Range/Units 17:58 17:58 WBC 7.5 (4.5-11.0) X10^3/uL RBC 3.29 L (4.0-5.2) X10^6/uL Hgb 7.9 L (12.0-16.0) g/dL Hct 24.8 L (36-46) % MCV 75.4 L (80-100) fL MCH 24.0 L (26-34) PG MCHC 31.9 (30-36) % RDW 20.1 H (11.6-14.8) % Plt Count 365 (150-400) X10^3/uL Neut % (Auto) 67.9 (50-75) % Lymph % (Auto) 20.2 L (25-40) % [place] % (Auto) 8.3 (3-14) % Eos % (Auto) 2.8 (2-4) % Baso % (Auto) 0.8 (0-2) % Neut # (Auto) 5100 (4405-3122) /uL Lymph # (Auto) 1500 (2989-7919) /uL [place] # (Auto) 600 (0-900) /uL Eos # (Auto) 200 (0-450) /uL Baso # (Auto) 100 (0-100) /uL RBC Morphology See below Poikilocytosis 2+ H Anisocytosis 1+ H Microcytosis 1+ H Ovalocytes 2+ H ESR 76 H (0-20) MM/HR Sodium 136 L (137-145) mmol/L Potassium 3.9 (3.4-5.1) mmol/L Chloride 105 (98-107) mmol/L Carbon Dioxide 27 (22-32) mmol/L BUN 14 (7-17) mg/dL Creatinine 0.83 (0.52-1.04) mg/dL Estimated GFR > 60.0 (>60) mL/min BUN/Creatinine Ratio 16.9 (6-22) Glucose 109 (80-110) mg/dL Calcium 9.4 (8.4-10.2) mg/dL C-Reactive Protein 6.6 H (<1.0) mg/dL Urine Dip Bedside Urine Glucose Negative Bedside Urine Bilirubin - Negative Bedside Urine Ketone - Negative Urine Specific [place] 1.015 Bedside Urine Occult Blood - Negative Bedside Urine pH 7.0 Bedside Urine Protein - Negative Bedside Urine Urobilinogen - Negative Bedside Urine Nitrite - Negative Bedside Urine Leukocytes - Negative Esterase Imaging Data US - DVT: Radiologist's Impression: [address] [id number] ReportSigned Patient: Sheryl LennonMR#: [id number]: 5Acct:[id number]/Sex: 64 / FDate of Service: 05/13/20Loc: EDAccession Number: [id number] Procedure: US periph venous low extrem rt Ordering Provider: Kin Carrion D.O. PROCEDURE: US PERIPH VENOUS LOW EXTREM RT INDICATIONS: eval for DVT TECHNIQUE: Real-time imaging, as well as color and pulse Doppler interrogation, were performed of the lower extremity deep veins from the inguinal ligament to the popliteal fossa. COMPARISON: None. FINDINGS: The common femoral, femoral and popliteal veins are normally compressible, and free of intraluminal thrombus. Color and pulse Doppler demonstrate normal phasic intraluminal flow. There is normal augmentation response to distal compression maneuver. IMPRESSION: No evidence of deep vein thrombosis involving the right lower extremity. Dictated by: Amaya Fletcher MD, PhD on 05/13/2020 at 18:46 Approved by: Amaya Fletcher MD, PhD on 05/13/2020 at 18:46 [facility] Narrative Medical decision making narrative: This is a 64 year old female who arrives 9 days postoperative knee replacement by Dr. Beck. Patient was seen yesterday. She is concerned today about possible infection, she states she has had increasing swelling. She states that there is some increase in redness in the incision but not in all portions. She states that pain has not been increasing but has not been improving significantly. She has not felt well, she has felt nauseated. Patient postoperative wound does not appear acutely infected on evaluation. Labs were obtained, she does have an elevated CRP and ESR but no leukocytosis and no leftward shift of her neutrophils. She is anemic she does appear to be fairly consistent with her prior from 05/07/20. BMP does not show acute changes. These were all relayed directly to the patient. With her recent knee surgery DVT ultrasound was ordered and is negative for clot. Patient's case was reviewed with on-call Orthopedic surgery. They would like for patient to follow-up. Per patient she had been offered a follow-up appointment in [facility] the next day (05/14) but was concerned about traveling this far. Patient was encouraged to follow up. She has been in contact with [facility] about obtaining some home health assistance which she had stopped using during the initial stages of the covid pandemic. Patient has continued to feel nauseated, she was given a prescription for promethazine and she states she has a few tablets of promethazine and Zofran at home. Patient is frustrated that she is not currently being prescribed antibiotics. We did discuss that there is potential for infection but at this time they are deferred for watchful waiting and it was recommended to contact ortho office, they may move her appointment here to [place]. Patient was encouraged to return if she is feeling worse or having new concerning signs. Patient did ambulate independently from department while we are awaiting her urine dip results. Discharge instructions were relayed to her by nursing when patient and family called back. Dr. Eisenberg is aware of her frustration. Discharge Plan Departure Patient Disposition: Home Clinical Impression: Post-op pain Activity Restrictions/Additional Instructions: Follow up with your orthopedic surgeon, call tomorrow. I do recommend following up at the appointment offered in [place]. I know you are concerned about infection and if you notice new changes you should be re-evaluated shortly. Continue your pain medications as prescribed. You may take anti-nausea medicine as prescribed. [facility] [place]. Please return for fevers greater than 100.4F, worsening redness, swelling, purulent discharge, new numbness, weakness, loss of sensation, chest pain, shortness of breath, lightheadedness or passing out or other new or concerning symptoms. Prescriptions: New promethazine 25 mg tablet 25 mg PO TID PRN (Reason: nausea and vomiting) Qty: 10 RF: 0 No Action potassium chloride 20 mEq tablet extended release 10 meq PO DAILY PRN (Reason: Take w/lasix) RF: 0 diazepam 5 mg tablet 5 mg PO BID PRN (Reason: Anxiety) RF: 0 fluticasone propionate 50 mcg/actuation spray,suspension 1 spray intranasal BID RF: 0 gabapentin [Neurontin] 600 mg tablet 600 mg PO QID RF: 0 mirtazapine 7.5 mg tablet 7.5 mg PO BEDTIME Qty: 30 RF: 2 Hold Instructions: not currently taking Trintellix 20 mg tablet 20 mg PO DAILY Qty: 30 RF: 2 hydroxyzine HCl 25 mg tablet 25 mg PO BID PRN (Reason: Pain (Scale Score 1-3)) RF: 0 promethazine 25 mg tablet 25 mg PO Q8H PRN (Reason: nausea and vomiting) Qty: 12 RF: 1 levalbuterol HCl 0.63 mg/3 mL solution for nebulization 0.63 mg INHALATION Q8H PRN (Reason: shortness of breath or wheezing) Qty: 90 RF: 11 methocarbamol 750 mg tablet 750 mg PO TID PRN (Reason: Spasms) Qty: 90 RF: 3 pramipexole [Mirapex] 0.75 mg tablet 0.75 mg PO BEDTIME Qty: 90 RF: 3 epinephrine 0.3 mg/0.3 mL auto-injector 0.3 mg IM ONCE PRN (Reason: Allergic Reaction) Qty: 1 RF: 11 budesonide-formoterol [Symbicort] 80-4.5 mcg/actuation HFA aerosol inhaler 2 puff INHALATION BID Qty: 10.2 RF: 0 sumatriptan succinate 100 mg tablet 100 mg PO ONCE PRN (Reason: migraine headache) Qty: 14 RF: 3 montelukast 10 mg tablet 10 mg PO BEDTIME PRN (Reason: Allergy Symptoms) Qty: 90 RF: 3 rizatriptan 10 mg tablet 10 mg PO .COMPLEX PRN (Reason: migraine headache) Qty: 12 RF: 3 levalbuterol tartrate [Xopenex HFA] 45 mcg/actuation HFA aerosol inhaler 2 inhalation INHALATION BID RF: 0 lidocaine 5 % Ointment 1 applic TOPICAL TID PRN (Reason: pain) RF: 0 ketotifen fumarate [Zaditor] 0.025 % (0.035 %) Drops 1 drp OPHTHALMIC (EYE) BID RF: 0 furosemide 40 mg tablet 40 mg PO DAILY PRN (Reason: edema) Qty: 30 RF: 0 sennosides [senna] 8.6 mg Tablet 17.2 mg PO BEDTIME PRN (Reason: Constipation) RF: 0 diphenhydramine HCl [Benadryl] 25 mg Capsule 75 mg PO DAILY PRN (Reason: Allergy Symptoms) RF: 0 omeprazole 40 mg Capsule,Delayed Release(Dr/Ec) 40 mg PO BID RF: 0 aspirin 81 mg Tablet,Delayed Release (Dr/Ec) 81 mg PO BID 42 Days Qty: 84 RF: 0 ibuprofen 400 mg Tablet 400 mg PO Q4HR 28 Days RF: 0 docusate sodium [DOK] 100 mg Capsule 100 mg PO BID 14 Days Qty: 28 RF: 0 hydromorphone 4 mg Tablet 4 mg PO Q4-6H PRN (Reason: Pain, Severe (7-10)) Qty: 60 RF: 0 Referrals: Becky Rod PA-C [Primary Care Provider] - Hanna Beck MD [Physician] -
[2020-05-13 18:19] LABS: Add Manual Diff / Slide Review NO; Basophils Absolute Auto 100 /uL (0-100); Basophils Percent Auto 0.8 % (0-2); Eosinophils Absolute Auto 200 /uL (0-450); Eosinophils Percent Auto 2.8 % (2-4); Hematocrit 24.8 % (36-46); Hemoglobin 7.9 g/dL (12.0-16.0); Lymphocytes Absolute Auto 1500 /uL (1100-4500); Lymphocytes Percent Auto 20.2 % (25-40); Mean Corpuscular HGB Conc 31.9 % (30-36); Mean Corpuscular Volume 75.4 fL (80-100); Monocytes Absolute Auto 600 /uL (0-900); Monocytes Percent Auto 8.3 % (3-14); Neutrophils Absolute Auto 5100 /uL (1500-7000); Neutrophils Percent Auto 67.9 % (50-75); Platelet Count 365 X10^3/uL (150-400); Red Blood Cell Count 3.29 X10^6/uL (4.0-5.2); Red Cell Distribution Width 20.1 % (11.6-14.8); White Blood Cell Count 7.5 X10^3/uL (4.5-11.0)
[2020-05-13 18:24] LABS: Anisocytosis 1+; Microcytosis 1+; Ovalocytes 2+; Poikilocytosis 2+
[2020-05-13 18:27] LABS: BUN Creatinine Ratio 16.9 (6-22); Blood Urea Nitrogen 14 mg/dL (7-17); C-Reactive Protein Quant 6.6 mg/dL (<1.0); Calcium 9.4 mg/dL (8.4-10.2); Carbon Dioxide 27 mmol/L (22-32); Chloride 105 mmol/L (98-107); Erythrocyte Sedimentation Rate 76 MM/HR (0-20); Estimated Glomerular Filt Rate > 60.0 mL/min (>60); Glucose 109 mg/dL (80-110); HEMOLYSIS < 15 (0-50); Potassium 3.9 mmol/L (3.4-5.1); Sodium 136 mmol/L (137-145)
[2020-05-13] MEDS: ONDANSETRON 4 MG/2 ML INJ IV (18:34)
[2020-05-13] MEDS: KETOROLAC 60 MG/2 ML VIAL 15 MG IV (18:34)
--- NOTE | 2020-05-13 18:42 | PC.NURSE ---
The nurse went in to start an IV and the patient stated that she did not want an IV in her left AC since the last time it infiltrated and left a bruise. The product development technician was in the room and working on her right leg. I said that I could put an IV in her right arm but it would need to wait. She said it was ok to put in her left arm but to make sure I didn't put it in her left AC. She stated that her hands have good veins. She also stated that she was left handed and was not going to be able to use her left hand. She stuck out her left arm and was prepped for an IV. I rachel blood from her and put in an IV. She then said that her arm was cold because she had to take out her arm from her sweatshirt for her IV. I offered her blankets. I went in to medicate her for pain and she stated that she told me not to put the IV in her hand because she's left handed and now the needle was sticking up and hurting her. I reminded her that she did not object when I was placing the IV, getting blood, and putting tape on her hand. She stated that she told me not to do it and I didn't listen I aksed her what she would like for me to do. I could take it out and put in another one or she could receive pain medication through it. She asked me not to speak to her that way and i restated That I was asking her what she wanted me to do. She stated that If I was going to speak to her that way she wanted somebody else. I told her that I would get the charge nurse to speak to her and I left the room with her call light in reach and bed down low. She was not in acute distress at the time that I left her room.
--- NOTE | 2020-05-13 19:12 | PC.NURSE ---
pt states it is pulling up on the back of her hand. i asked patient if she was ok to receive the meds first, she said yes. the line was patent and without discomfort during flush. I removed the iv access. reported to dr. maddox.
--- NOTE | 2020-05-13 20:15 | PC.NURSE ---
Received phone call from someone stating to be pt's granddaughter asking why we the patient with a recent knee surgery was given medication then discharged and was told to drive home after being medicated. Transferred the call to a nurse who had participated in the care of the patient.
--- NOTE | 2020-05-13 20:19 | PC.NURSE ---
Keeley to called regarding the patient. She said that her grandmother called her and told her that the ER gave her pain medications and told her to go emergency vehicle driver herself home. The caller asked why we discharged her. I informed her that she was not discharged from the ED,she left against medical advice/prior to being discharged. I told the caller that she was not discharged and that the patient is not telling her the truth. I attempted to look for the patient but was unable to find her. The patient ambulated from the ED with a slow but steady gait.
--- NOTE | 2020-05-13 20:37 | PC.NURSE ---
Pt called back to the ED and requested that we tell her grandaughter what we found. Sheryl Staples then stated If I have to come back down there it won't be good. I informed her that we are not asking her to return to the ED and not to threaten me.
--- NOTE | 2020-05-13 20:57 | PC.NURSE ---
patient needed help out of her wheelchair when she arrived to the ED and not able to ambulate on her own. She also requested a pillow for her knee and when asked to lift her leg in bed she could not lift it and stated that her knee hurt too bad to lift. She left against medical advice and ambulated without help out of the department.
== END 2020-05-13 19:53 | disposition home or self-care (01) ==
PROVIDERS: Emergency Medicine; Emergency Provider Emergency Medicine; PCP Physician Assistant
DX: G89.18 Other acute postprocedural pain (principal); M25.561 Pain in right knee
CPT/HCPCS: 36415; 80048; 81003; 85025; 85651; 86140; 93971; 96374; 96375; 99284; J1885; J2405

== ENCOUNTER → 2020-05-27 15:31 | Outpatient (ROUT) | payer OTHER, SELFPAY ==
[2020-05-27 16:13] LABS: Add Manual Diff / Slide Review NO; Basophils Absolute Auto 100 /uL (0-100); Eosinophils Absolute Auto 200 /uL (0-450); Eosinophils Percent Auto 3.3 % (2-4); Hematocrit 29.7 % (36-46); Hemoglobin 9.7 g/dL (12.0-16.0); Lymphocytes Absolute Auto 1800 /uL (1100-4500); Lymphocytes Percent Auto 24.1 % (25-40); Mean Corpuscular HGB Conc 32.5 % (30-36); Mean Corpuscular Hemoglobin 24.4 PG (26-34); Mean Corpuscular Volume 75.1 fL (80-100); Monocytes Absolute Auto 700 /uL (0-900); Monocytes Percent Auto 9.3 % (3-14); Neutrophils Absolute Auto 4600 /uL (1500-7000); Neutrophils Percent Auto 62.3 % (50-75); Platelet Count 542 X10^3/uL (150-400); Red Blood Cell Count 3.96 X10^6/uL (4.0-5.2); Red Cell Distribution Width 19.7 % (11.6-14.8); White Blood Cell Count 7.4 X10^3/uL (4.5-11.0)
[2020-05-27 16:15] LABS: HEMOLYSIS < 15 (0-50); Iron 19 ug/dL (37-170)
[2020-05-27 16:27] LABS: Alanine Aminotransferase 17 IU/L (<35); Albumin 3.9 g/dL (3.5-5.0); Albumin Globulin Ratio 1.3 (1.0-2.8); Alkaline Phosphatase 124 U/L (38-126); Aspartate Aminotransferase 27 IU/L (14-36); BUN Creatinine Ratio 30.1 (6-22); Bilirubin Total 0.1 mg/dL (0.2-1.3); Blood Urea Nitrogen 25 mg/dL (7-17); Calcium 10.1 mg/dL (8.4-10.2); Carbon Dioxide 25 mmol/L (22-32); Chloride 99 mmol/L (98-107); Estimated Glomerular Filt Rate > 60.0 mL/min (>60); Globulin 2.9 g/dL (1.7-4.1); Glucose 108 mg/dL (80-110); HEMOLYSIS < 15 (0-50); Potassium 4.5 mmol/L (3.4-5.1); Sodium 134 mmol/L (137-145); Total Protein 6.8 g/dL (6.3-8.2)
[2020-05-27 16:30] LABS: Percent Iron Saturation 6 % (15-50); Total Iron Binding Capacity 342 ug/dL (265-497); Transferrin 283 mg/dL (206-381)
[2020-05-27 16:52] LABS: Ferritin 39 ng/mL (11-264)
== END ==
PROVIDERS: Visit Provider Physician Assistant
DX: D50.9 Iron deficiency anemia, unspecified (principal); R53.1 Weakness; G89.4 Chronic pain syndrome; Z96.651 Presence of right artificial knee joint
CPT/HCPCS: 80053; 82728; 83540; 83550; 85025

== ENCOUNTER → 2020-07-01 12:43 | Outpatient (CLI) | payer OTHER, MEDICAID, SELFPAY ==
[2020-05-06 13:07] VITALS: BMI 35.4
[2020-07-05 11:12] LABS: Fecal Immunochemical Test Negative (Negative)
== END ==
PROVIDERS: PCP Physician Assistant; Referring Provider Internal Medicine; Visit Provider Internal Medicine
DX: D64.9 Anemia, unspecified (principal)
CPT/HCPCS: 82274

== ENCOUNTER → 2020-07-06 11:18 | Outpatient (CLI) | payer OTHER, MEDICAID, SELFPAY ==
[2020-05-06 13:07] VITALS: BMI 35.4
== END ==
PROVIDERS: PCP Physician Assistant; Referring Provider Internal Medicine; Visit Provider Internal Medicine
DX: D64.9 Anemia, unspecified (principal); Z53.20 Procedure and treatment not carried out because of patient's decision for unspecified reasons
CPT/HCPCS: 74177; Q9967

== ENCOUNTER 2020-07-06 12:32 | Emergency (ER) | payer OTHER, MEDICAID, SELFPAY ==
[2020-05-06 13:07] VITALS: BMI 35.4
[2020-07-06 12:32] VITALS: BP 194/92; PULSE 87; RESP 24; O2SAT 95; BMI 33.6
[2020-07-06] MEDS: ALBUTEROL/IPRATROPIUM 3 ML AMPUL INH (12:41)
--- NOTE | 2020-07-06 12:42 | ED_ITS ---
HPI - General Adult General Chief complaint: Shortness of Breath/Dyspnea Stated complaint: SOB Time Seen by Provider: 07/06/20 12:35 Source: patient Mode of arrival: Wheelchair Limitations: no limitations History of Present Illness HPI narrative: Patient is a 64-year-old female who is brought over to the emergency department from the diagnostic Imaging Department after she started to have problems breathing. She was in the Diagnostic Imaging Department obtaining a CT scan of her abdomen and pelvis for was initially thought to be a GI bleed. This was ordered by an outpatient provider. She was receiving oral contrast. At some point after starting the oral contrast the patient started to have fairly significant shortness of breath. She was brought to the emergency department for evaluation. Initially somewhat difficult to obtain HPI/review of systems because the patient was in a fair amount of respiratory distress and also receiving a nebulizer treatment. Related Data Home Medications Medication Instructions Recorded Confirmed sennosides [senna] 17.2 mg PO BEDTIME PRN 09/20/18 06/18/20 potassium chloride 20 mEq 10 meq PO DAILY PRN 10/29/18 06/18/20 tablet,extended release levalbuterol tartrate 45 2 inhalation INHALATION BID gram 08/26/19 06/18/20 mcg/actuation aerosol inhaler diphenhydramine HCl [Benadryl] 75 mg PO DAILY PRN 10/26/19 06/18/20 diazepam 5 mg tablet 5 mg PO BID PRN tab 12/12/19 06/18/20 omeprazole 40 mg PO BID 02/10/20 06/18/20 lidocaine 1 applic TOPICAL TID PRN 02/24/20 06/18/20 ketotifen fumarate [Zaditor] 1 drp OPHTHALMIC (EYE) BID 03/02/20 06/18/20 fluticasone propionate 50 1 spray INTRANASAL BID 04/02/20 06/18/20 mcg/actuation nasal spray,suspension gabapentin 600 mg tablet 600 mg PO QID tab 04/02/20 06/18/20 garlic 1,200 mg PO DAILY 06/29/20 06/29/20 ondansetron 8 mg PO Q8H PRN 06/29/20 06/29/20 oxycodone 5 mg PO QID PRN 06/29/20 06/29/20 Previous Rx's Medication Instructions Recorded levalbuterol HCl 0.63 mg/3 mL 0.63 mg INHALATION Q8H PRN #90 ml 09/11/19 solution for nebulization methocarbamol 750 mg tablet 750 mg PO TID PRN #90 tab 09/29/19 pramipexole 0.75 mg tablet 0.75 mg PO BEDTIME #90 tab 09/29/19 epinephrine 0.3 mg/0.3 mL 0.3 mg IM ONCE PRN #1 ea 01/01/20 injection, auto-injector budesonide-formoterol HFA 80 2 puff INHALATION BID #10.2 gram 01/28/20 mcg-4.5 mcg/actuation aerosol inhaler montelukast 10 mg tablet 10 mg PO BEDTIME PRN #90 tab 02/23/20 rizatriptan 10 mg tablet 10 mg PO .COMPLEX PRN #12 tab 02/23/20 sumatriptan succinate 100 mg tablet 100 mg PO ONCE PRN #14 tab 02/23/20 furosemide 40 mg PO DAILY PRN #30 tab 03/04/20 mirtazapine 7.5 mg tablet 7.5 mg PO BEDTIME #30 tab 04/02/20 promethazine 25 mg PO TID PRN #10 tab 05/13/20 Trintellix 20 mg tablet 20 mg PO DAILY #30 tab NS 06/18/20 Allergies Allergy/AdvReac Type Severity Reaction Status Date / Time latex Allergy Severe Rash Verified 07/06/20 13:04 morphine [MORPHINE] Allergy Severe Anaphylaxis Verified 07/06/20 13:04 Penicillins [PENICILLINS] Allergy Severe Anaphylaxis Verified 07/06/20 13:04 Sulfa (Sulfonamide Allergy Severe RASH Verified 07/06/20 13:04 Antibiotics) [SULFA (SULFONAMIDE ANTIBIOTICS)] azithromycin Allergy Intermediate Rash Verified 07/06/20 13:04 [From ZITHROMAX Z-MARILYN] cefuroxime [From Ceftin] Allergy Intermediate Rash Verified 07/06/20 13:04 sulfamethoxazole Allergy Intermediate RASH Verified 07/06/20 13:04 [From SEPTRA] trimethoprim [From SEPTRA] Allergy Intermediate RASH Verified 07/06/20 13:04 ciprofloxacin [From Cipro] Allergy Pt does Verified 07/06/20 13:04 not remember reaction Corticosteroids Allergy Swelling Verified 07/06/20 13:04 (Glucocorticoids) of Lip/Tongue/Throat cephalexin [From Keflex] AdvReac Severe Fever, Verified 07/06/20 13:04 Asthma, Tachycardia prednisone AdvReac Severe nausea and Verified 07/06/20 13:04 feels very weak, and axious verapamil AdvReac Intermediate Asthma Verified 07/06/20 13:04 symptoms zonisamide AdvReac Intermediate Asthma Verified 07/06/20 13:04 symptoms Review of Systems Review of Systems Narrative: Unable to obtain a full review of systems secondary to patient's respiratory distress and the fact that she was receiving a nebulizer treatment. The results listed below are through reports given by the diagnostic imaging department. ENT Ears, Nose, Mouth, and Throat: Reports throat swelling Cardiovascular Cardiovascular: Reports dyspnea Respiratory Respiratory: Reports dyspnea and Reports wheezing Integumentary/Breasts Skin/Breast: Denies rash Hematologic/Lymphatic On Anticoagulants: No Allergic/Immunologic Allergic/Immunologic: Denies urticaria, Reports throat swelling and Reports wheezing Patient History Medical History Anemia Anxiety Asthma Chronic back pain Chronic cough Depression Femur fracture, left Fibromyalgia Fractures GERD (gastroesophageal reflux disease) Hiatal hernia Recurrent sinusitis Venous insufficiency (chronic) (peripheral) Surgical History Anesthesia History of eye surgery (~1973) History of foot surgery History of hysterectomy (~1979) History of shoulder surgery (~2011) History of tonsillectomy (~1975) Hx of bilateral cataract extraction Family History (System 07/06/20 @ 13:04 by Veronika Caldwell) Mother Heart disease Social History marital status: number of children: 1 household members: none lives independently: Yes caregiver/support person: Yes (3 afternoons per week) pets and animals: Yes occupational status: disabled Smoking Status: Never smoker alcohol intake: never substance use type: does not use Exam Initial Vital Signs Initial Vital Signs: Vital Signs Pulse Rate 87 07/06/20 12:32 Respiratory Rate 24 07/06/20 12:32 Blood Pressure 194/92 H 07/06/20 12:32 Pulse Oximetry 95 07/06/20 12:32 Const General: in distress Limitations: mental status not altered HENRI Head: normal to inspection and normocephalic Eyes General: appearance normal, both eyes and all related structures Resp Effort & Inspection: tachypneic Auscultation: diminished lung sounds and wheezes Cardio Rate: tachycardic Rhythm: regular rhythm GI Inspection: normal to inspection Back/Spine/Pelvis Back: normal to inspection Skin Lesions: no lesions Rashes: no rashes Neuro General: patient alert and patient awake Extrem General: capillary refill normal Psych Appearance: grossly normal and well kempt Course Orders Ordered: Discontinued Medications Albuterol/Ipratropium (Albuterol/Ipratropium 3 Ml Ampul) 3 ml INH NOW ONE Stop: 07/06/20 12:35 Last Admin: 07/06/20 12:41 Dose: 3 ml Documented by: BRAYAN Diphenhydramine HCl (Diphenhydramine 50 Mg/Ml Vial) 25 mg IV NOW ONE Stop: 07/06/20 12:48 Last Admin: 07/06/20 12:49 Dose: 25 mg Documented by: JUANA Epinephrine HCl (Epinephrine 1 Mg/Ml) 0.5 mg IM NOW ONE Stop: 07/06/20 12:48 Last Admin: 07/06/20 12:50 Dose: 0.5 mg Documented by: JUANA Methylprednisolone (Methylprednisolone 125 Mg/2 Ml Vial) 125 mg IV NOW ONE Stop: 07/06/20 12:44 Last Admin: 07/06/20 12:49 Dose: 125 mg Documented by: JUANA Vital Signs Vital signs: Vital Signs - 8 hr 07/06/20 12:32 07/06/20 13:04 07/06/20 13:30 Pulse Rate 87 97 H 96 H Respiratory Rate 24 28 H 24 Blood Pressure 194/92 H 152/70 H Pulse Oximetry 95 95 94 07/06/20 14:00 07/06/20 14:30 Pulse Rate 97 H 108 H Respiratory Rate 21 24 Blood Pressure 147/70 H 147/93 H Pulse Oximetry 93 94 Medical Decision Making MDM Narrative Medical decision making narrative: Upon arrival the patient was in a fair amount of respiratory distress. She does have a history of asthma. She did have diminished breath sounds and wheezing bilaterally. She received a nebulizer treatment. There was also a concern for an anaphylactic reaction. She was given Solu-Medrol and Benadryl. Shortly after the 1st nebulizer treatment she did become somewhat worse. Epinephrine was then ordered. After this she did seem to improve. She was being observed here in the emergency department when she became agitated. She pulled out her own IV and took off all of her cardiac monitoring and stormed out of the emergency department. Unsure exactly why this happened. She was not in respiratory distress at the time. The patient did elope and left without discharge instructions or return precautions or a chance for me to discuss risks and benefits of her leaving. Critical Care Time Critical Care Time Critical Care Time: Yes Total Critical Care Time: 35 Attestation: The high probability of a clinically significant, sudden or life threatening deterioration of the respiratory system(s) required my full and direct atte ntion, intervention and personal management. The aggregate critical care time was 35 minutes. This time is in addition to time spent performing reported procedures but includes the following: [X] Data Review and interpretation [X] Patient assessment and monitoring of vital signs [X] Documentation [X] Medication orders and management Discharge Plan Departure Patient Disposition: Left Against Medical Advice Clinical Impression: Shortness of breath Prescriptions: No Action potassium chloride 20 mEq tablet extended release 10 meq PO DAILY PRN (Reason: Take w/lasix) RF: 0 diazepam 5 mg tablet 5 mg PO BID PRN (Reason: Anxiety) RF: 0 fluticasone propionate 50 mcg/actuation spray,suspension 1 spray intranasal BID RF: 0 gabapentin [Neurontin] 600 mg tablet 600 mg PO QID RF: 0 mirtazapine 7.5 mg tablet 7.5 mg PO BEDTIME Qty: 30 RF: 2 Hold Instructions: not currently taking Trintellix 20 mg tablet 20 mg PO DAILY Qty: 30 RF: 3 levalbuterol HCl 0.63 mg/3 mL solution for nebulization 0.63 mg INHALATION Q8H PRN (Reason: shortness of breath or wheezing) Qty: 90 RF: 11 methocarbamol 750 mg tablet 750 mg PO TID PRN (Reason: Spasms) Qty: 90 RF: 3 pramipexole [Mirapex] 0.75 mg tablet 0.75 mg PO BEDTIME Qty: 90 RF: 3 epinephrine 0.3 mg/0.3 mL auto-injector 0.3 mg IM ONCE PRN (Reason: Allergic Reaction) Qty: 1 RF: 11 budesonide-formoterol [Symbicort] 80-4.5 mcg/actuation HFA aerosol inhaler 2 puff INHALATION BID Qty: 10.2 RF: 0 sumatriptan succinate 100 mg tablet 100 mg PO ONCE PRN (Reason: migraine headache) Qty: 14 RF: 3 montelukast 10 mg tablet 10 mg PO BEDTIME PRN (Reason: Allergy Symptoms) Qty: 90 RF: 3 rizatriptan 10 mg tablet 10 mg PO .COMPLEX PRN (Reason: migraine headache) Qty: 12 RF: 3 levalbuterol tartrate [Xopenex HFA] 45 mcg/actuation HFA aerosol inhaler 2 inhalation INHALATION BID RF: 0 lidocaine 5 % Ointment 1 applic TOPICAL TID PRN (Reason: pain) RF: 0 ketotifen fumarate [Zaditor] 0.025 % (0.035 %) Drops 1 drp OPHTHALMIC (EYE) BID RF: 0 furosemide 40 mg tablet 40 mg PO DAILY PRN (Reason: edema) Qty: 30 RF: 0 sennosides [senna] 8.6 mg Tablet 17.2 mg PO BEDTIME PRN (Reason: Constipation) RF: 0 diphenhydramine HCl [Benadryl] 25 mg Capsule 75 mg PO DAILY PRN (Reason: Allergy Symptoms) RF: 0 omeprazole 40 mg Capsule,Delayed Release(Dr/Ec) 40 mg PO BID RF: 0 ondansetron 8 mg Tablet,Disintegrating 8 mg PO Q8H PRN (Reason: Nausea) RF: 0 garlic 600 mg Capsule 1,200 mg PO DAILY RF: 0 oxycodone 5 mg Tablet 5 mg PO QID PRN (Reason: Pain (Scale Score 1-3)) RF: 0 promethazine 25 mg tablet 25 mg PO TID PRN (Reason: nausea and vomiting) Qty: 10 RF: 0 Stand Alone Forms: Against Medical Advice
[2020-07-06] MEDS: diphenhydrAMINE 50 MG/ML VIAL 25 MG IV (12:49)
[2020-07-06] MEDS: methylPREDNISolone 125 MG/2 ML VIAL IV (12:49)
[2020-07-06] MEDS: EPINEPHrine 1 MG/ML 0.5 MG IM (12:50)
[2020-07-06 13:04] VITALS: PULSE 97; RESP 28; O2SAT 95
[2020-07-06 13:30] VITALS: BP 152/70; PULSE 96; RESP 24; O2SAT 94
[2020-07-06 14:00] VITALS: BP 147/70; PULSE 97; RESP 21; O2SAT 93
[2020-07-06 14:30] VITALS: BP 147/93; PULSE 108; RESP 24; O2SAT 94
--- NOTE | 2020-07-08 14:13 | PC.NURSE ---
patient called to check on her lab work from saturdays ED visit. lab vials were drawn but not ordered or used. patient states that will not happen again but that's my body i went to speak and she hung up on me.
== END 2020-07-06 14:37 | disposition left against medical advice (07) ==
PROVIDERS: Emergency Provider Emergency Medicine
DX: R06.02 Shortness of breath (principal)
CPT/HCPCS: 36415; 96372; 96374; 96375; 99284; 99291; J0171; J1200; J2930

== ENCOUNTER → 2020-07-14 10:11 | Outpatient (CLI) | payer OTHER, MEDICAID, SELFPAY ==
[2020-05-06 13:07] VITALS: BMI 35.4
--- NOTE | 2020-07-14 10:12 | DI.CT.S_ITS ---
PROCEDURE: CT ABDOMEN PELVIS WO CON INDICATIONS: iron deficiency, looking for source of GI blood loss TECHNIQUE: Noncontrast 5 mm thick sections acquired from the diaphragms to the symphysis. 5 mm coronal and sagittal reformats were then performed. For radiation dose reduction, the following was used: automated exposure control, adjustment of mA and/or kV according to patient size. COMPARISON: [facility], CT, CT ANGIO CHEST PE PROTOCOL, 03/01/2020, 2:58. [facility], CT, CT ABDOMEN PELVIS WO CON, 08/22/2018, 10:53. FINDINGS: Image quality: Excellent. ABDOMEN: Lung bases: Lung bases are clear. Trace thickening along the right major fissure, unchanged since 2019. Heart size is normal. Large hiatal hernia. Trace free fluid in the hernia sac, (04/02), unchanged. Solid organs: Liver is normal in size. Gallbladder is unremarkable . Pancreas is normal in contours. Spleen is normal in size. No adrenal nodules. Kidneys are normal in size, without hydronephrosis or nephrolithiasis. Peritoneum and bowel: High-density material layering in the stomach. There appears to be pill fragments. No small bowel obstruction. No significant diverticulosis. No diverticulitis. Appendix is within normal limits. No free fluid or air. Nodes and vessels: Small right anterior peritoneal nodule measuring 0.8 cm, (2), unchanged since at least 2018. There is trace calcification. No retroperitoneal or mesenteric adenopathy by size criteria. Aorta and inferior vena cava are normal in caliber. Miscellaneous: Tiny fat containing periumbilical hernia. PELVIS: Genitourinary: Bladder wall thickness is normal. Uterus is absent. Miscellaneous: Small fat containing right inguinal hernia. Possible left inguinal hernia. No adenopathy. Bones: No suspicious bony lesions. L5-S1 DDD. No vertebral body compression fractures. Left femur intramedullary cindy and screw fixation. IMPRESSION: 1. High-density material layering in the stomach. Also suspect pill fragments. Food residue is possible. It is difficult to exclude a gastric bleeding. Recommend clinical correlation. Endoscopy could be considered. 2. Similar large hiatal hernia. 3. No small bowel obstruction. No significant diverticulosis. No diverticulitis. Dictated by: Gio Castellanos M.D. on 07/14/2020 at 13:05 Approved by: Gio Castellanos M.D. on 07/14/2020 at 13:22
== END ==
PROVIDERS: PCP Physician Assistant; Referring Provider Internal Medicine; Visit Provider Internal Medicine
DX: D64.9 Anemia, unspecified (principal)
CPT/HCPCS: 74176

== ENCOUNTER → 2020-08-30 10:14 | Outpatient (CLI) | payer OTHER, MEDICAID, SELFPAY ==
[2020-08-27 13:41] VITALS: BMI 35.4
[2020-08-30 11:34] LABS: COVID19 -Nasal RAPID Negative (Negative)
== END ==
PROVIDERS: PCP Physician Assistant; Visit Provider Specialist
DX: Z20.822 Contact with and (suspected) exposure to COVID-19 (principal)
CPT/HCPCS: 87635; C9803

== ENCOUNTER 2020-09-03 05:52 | Emergency (ER) | payer OTHER, MEDICAID, SELFPAY ==
[2020-08-27 13:41] VITALS: BMI 35.4
[2020-09-03 06:00] VITALS: BP 146/72; PULSE 90; RESP 24; TEMP 36.6; O2SAT 97; BMI 33.6
--- NOTE | 2020-09-03 06:05 | DI.RAD.S_ITS ---
PROCEDURE: XR CHEST 1V INDICATIONS: Shortness of breath TECHNIQUE: One view of the chest was acquired. COMPARISON: [facility], CT, CT ABDOMEN PELVIS WO CON, 07/14/2020, 10:51. [facility], CR, XR CHEST 2V, 03/01/2020, 2:02. [facility], CR, XR CHEST 1V, 02/24/2020, 8:00. FINDINGS: Surgical changes and devices: Circular device overlies the mid heart, possible Milana external to the patient. Lungs and pleura: Lungs are abnormal with a mild interstitial prominence pattern previously present. No pleural effusions or pneumothorax. Mediastinum: Mediastinal contours appear normal. Heart size is just above the upper limits of normal in size.. Bones and chest wall: No suspicious bony lesions. Overlying soft tissues appear unremarkable. IMPRESSION: Chronic mild cardiomegaly without definite acute CHF. Chronic mild interstitial prominence but this may simply represent prior smoking history. Faintly visualized circular device overlying the middle portion of the heart, Dictated by: Gonzalez Dsouza M.D. on 09/03/2020 at 8:12 Approved by: Gonzalez Dsouza M.D. on 09/03/2020 at 8:14
[2020-09-03 06:43] LABS: Add Manual Diff / Slide Review NO; Basophils Absolute Auto 100 /uL (0-100); Eosinophils Absolute Auto 300 /uL (0-450); Eosinophils Percent Auto 4.3 % (2-4); Hematocrit 34.8 % (36-46); Hemoglobin 11.4 g/dL (12.0-16.0); Lymphocytes Absolute Auto 1400 /uL (1100-4500); Lymphocytes Percent Auto 20.9 % (25-40); Mean Corpuscular HGB Conc 32.8 % (30-36); Mean Corpuscular Hemoglobin 26.3 PG (26-34); Mean Corpuscular Volume 80.1 fL (80-100); Monocytes Absolute Auto 400 /uL (0-900); Monocytes Percent Auto 6.7 % (3-14); Neutrophils Absolute Auto 4500 /uL (1500-7000); Neutrophils Percent Auto 67.1 % (50-75); Platelet Count 283 X10^3/uL (150-400); Red Blood Cell Count 4.34 X10^6/uL (4.0-5.2); Red Cell Distribution Width 21.8 % (11.6-14.8); White Blood Cell Count 6.7 X10^3/uL (4.5-11.0)
--- NOTE | 2020-09-03 06:44 | ED_ITS ---
HPI - General Adult <Kin Carrion DO - Last Filed: 09/03/20 17:57> General Chief complaint: Shortness of Breath/Dyspnea Stated complaint: hard to breathe has hiatal hernia Time Seen by Provider: 09/03/20 06:03 Source: patient Mode of arrival: Ambulatory History of Present Illness HPI narrative: Patient is a 64-year-old female with a known history of a hiatal hernia. She states that for the past several months she has had difficulty with breathing which she attributes to the hiatal hernia. She has been seen by a General surgery. Earlier this week she had a procedure done at an outside facility to further evaluate the hernia but she does not know the results of this. Over the past couple months her symptoms have worsened which she states that is worsened over the past couple weeks and then has worsened over the past couple days. No chest pain. She feels like that she cannot catch her breath. No chest pain. Related Data Home Medications Medication Instructions Recorded Confirmed sennosides 8.6 mg tablet (senna) 17.2 mg PO BEDTIME PRN 09/20/18 06/18/20 potassium chloride 20 mEq 10 meq PO DAILY PRN 10/29/18 06/18/20 tablet,extended release levalbuterol tartrate 45 2 inhalation INHALATION BID gram 08/26/19 06/18/20 mcg/actuation aerosol inhaler (Xopenex HFA) diphenhydramine HCl 25 mg capsule 75 mg PO DAILY PRN 10/26/19 06/18/20 (Benadryl) diazepam 5 mg tablet 5 mg PO BID PRN tab 12/12/19 06/18/20 omeprazole 40 mg capsule,delayed 40 mg PO BID 02/10/20 06/18/20 release lidocaine 5 % topical ointment 1 applic TOPICAL TID PRN 02/24/20 06/18/20 ketotifen fumarate 0.025 % (0.035 1 drp OPHTHALMIC (EYE) BID 03/02/20 06/18/20 %) eye drops (Zaditor) fluticasone propionate 50 1 spray INTRANASAL BID 04/02/20 06/18/20 mcg/actuation nasal spray,suspension gabapentin 600 mg tablet 600 mg PO QID tab 04/02/20 06/18/20 (Neurontin) garlic 600 mg capsule 1,200 mg PO DAILY 06/29/20 06/29/20 ondansetron 8 mg disintegrating 8 mg PO Q8H PRN 06/29/20 06/29/20 tablet oxycodone 5 mg tablet 5 mg PO QID PRN 06/29/20 06/29/20 Previous Rx's Medication Instructions Recorded levalbuterol HCl 0.63 mg/3 mL 0.63 mg INHALATION Q8H PRN #90 ml 09/11/19 solution for nebulization methocarbamol 750 mg tablet 750 mg PO TID PRN #90 tab 09/29/19 pramipexole 0.75 mg tablet 0.75 mg PO BEDTIME #90 tab 09/29/19 (Mirapex) epinephrine 0.3 mg/0.3 mL 0.3 mg IM ONCE PRN #1 ea 01/01/20 injection, auto-injector budesonide-formoterol HFA 80 2 puff INHALATION BID #10.2 gram 01/28/20 mcg-4.5 mcg/actuation aerosol inhaler (Symbicort) montelukast 10 mg tablet 10 mg PO BEDTIME PRN #90 tab 02/23/20 rizatriptan 10 mg tablet 10 mg PO .COMPLEX PRN #12 tab 02/23/20 sumatriptan succinate 100 mg tablet 100 mg PO ONCE PRN #14 tab 02/23/20 furosemide 40 mg tablet 40 mg PO DAILY PRN #30 tab 03/04/20 mirtazapine 7.5 mg tablet 7.5 mg PO BEDTIME #30 tab 04/02/20 promethazine 25 mg tablet 25 mg PO TID PRN #10 tab 05/13/20 Trintellix 20 mg tablet 20 mg PO DAILY #30 tab NS 06/18/20 (vortioxetine) Allergies Allergy/AdvReac Type Severity Reaction Status Date / Time Iodinated Contrast Media Allergy Severe Difficulty Verified 07/23/20 12:51 Breathing latex Allergy Severe Rash Verified 07/06/20 13:04 morphine [MORPHINE] Allergy Severe Anaphylaxis Verified 07/06/20 13:04 Penicillins [PENICILLINS] Allergy Severe Anaphylaxis Verified 07/06/20 13:04 Sulfa (Sulfonamide Allergy Severe RASH Verified 07/06/20 13:04 Antibiotics) [SULFA (SULFONAMIDE ANTIBIOTICS)] azithromycin Allergy Intermediate Rash Verified 07/06/20 13:04 [From ZITHROMAX Z-MARILYN] cefuroxime [From Ceftin] Allergy Intermediate Rash Verified 07/06/20 13:04 sulfamethoxazole Allergy Intermediate RASH Verified 07/06/20 13:04 [From SEPTRA] trimethoprim [From SEPTRA] Allergy Intermediate RASH Verified 07/06/20 13:04 ciprofloxacin [From Cipro] Allergy Pt does Verified 07/06/20 13:04 not remember reaction Corticosteroids Allergy Swelling Verified 07/06/20 13:04 (Glucocorticoids) of Lip/Tongue/Throat cephalexin [From Keflex] AdvReac Severe Fever, Verified 07/06/20 13:04 Asthma, Tachycardia prednisone AdvReac Severe nausea and Verified 07/06/20 13:04 feels very weak, and axious verapamil AdvReac Intermediate Asthma Verified 07/06/20 13:04 symptoms zonisamide AdvReac Intermediate Asthma Verified 07/06/20 13:04 symptoms Review of Systems <Kin Carrion DO - Last Filed: 09/03/20 17:57> Constitutional Constitutional: Denies fever(s) Eyes Eyes: Reports system reviewed and no additional complaints, except as documented ENT Ears, Nose, Mouth, and Throat: Reports system reviewed and no additional complaints, except as documented Cardiovascular Cardiovascular: Denies chest pain, Reports dyspnea and Reports dyspnea on exertion Respiratory Respiratory: Reports dyspnea and Reports dyspnea on exertion Gastrointestinal Gastrointestinal: Reports system reviewed and no additional complaints, except as documented Musculoskeletal Comments: No lower extremity edema Integumentary/Breasts Skin/Breast: Reports system reviewed and no additional complaints, except as documented Neurologic Neurologic: Reports system reviewed and no additional complaints, except as documented Psychiatric Psychiatric: Reports system reviewed and no additional complaints, except as documented Hematologic/Lymphatic On Anticoagulants: No Allergic/Immunologic Allergic/Immunologic: Reports system reviewed and no additional complaints, except as documented Patient History <Kin Carrion DO - Last Filed: 09/03/20 17:57> Medical History Anemia Anxiety Asthma Chronic back pain Chronic cough Depression Femur fracture, left Fibromyalgia Fractures GERD (gastroesophageal reflux disease) Hiatal hernia Recurrent sinusitis Venous insufficiency (chronic) (peripheral) Surgical History Anesthesia History of eye surgery (~1973) History of foot surgery History of hysterectomy (~1979) History of shoulder surgery (~2011) History of tonsillectomy (~1975) Hx of bilateral cataract extraction Family History (System 07/06/20 @ 13:04 by Veronika Caldwell) Mother Heart disease Social History marital status: number of children: 1 household members: none lives independently: Yes caregiver/support person: Yes (3 afternoons per week) pets and animals: Yes occupational status: disabled Smoking Status: Never smoker alcohol intake: never substance use type: does not use Smoking Status: Never smoker alcohol intake frequency: holidays/special occasions only Substance Use Type: does not use and marijuana Exam <DO Shakeel June Last Filed: 09/03/20 17:57> Initial Vital Signs Initial Vital Signs: Vital Signs Temperature 97.8 F 09/03/20 06:00 Pulse Rate 90 09/03/20 06:00 Respiratory Rate 24 09/03/20 06:00 Blood Pressure 146/72 H 09/03/20 06:00 Pulse Oximetry 97 09/03/20 06:00 Const General: cooperative and comfortable HENMT Head: normal to inspection and normocephalic Eyes General: appearance normal, both eyes and all related structures Chest Chest: normal inspection of the chest Resp Effort & Inspection: labored and tachypneic Auscultation: clear to auscultation bilaterally Cardio Rate: regular rate Rhythm: regular rhythm GI Inspection: normal to inspection Skin General: no rashes or lesions noted Neuro General: patient alert, patient awake, patient oriented x3 and moves all extremities Extrem General: normal to inspection, capillary refill normal and edema (Left greater than right lower extremity) Psych Appearance: grossly normal and well kempt <Allyssa Limon DO - Last Filed: 09/03/20 18:34> Initial Vital Signs Initial Vital Signs: Vital Signs Temperature 97.8 F 09/03/20 06:00 Pulse Rate 90 09/03/20 06:00 Respiratory Rate 24 09/03/20 06:00 Blood Pressure 146/72 H 09/03/20 06:00 Pulse Oximetry 97 09/03/20 06:00 Course <DO Shakeel June Last Filed: 09/03/20 17:57> Orders Ordered: Discontinued Medications Diphenhydramine HCl (Diphenhydramine 50 Mg/Ml Vial) 25 mg IV NOW ONE Stop: 09/03/20 08:34 Last Admin: 09/03/20 09:20 Dose: Not Given Documented by: JULIAN Methylprednisolone (Methylprednisolone 125 Mg/2 Ml Vial) 125 mg IV NOW ONE Stop: 09/03/20 08:34 Last Admin: 09/03/20 09:20 Dose: Not Given Documented by: JULIAN Vital Signs Vital signs: Vital Signs - 8 hr 09/03/20 07:35 09/03/20 08:00 09/03/20 08:48 Pulse Rate 96 H 90 Respiratory Rate 18 22 Blood Pressure 155/77 H Pulse Oximetry 96 97 85 L 09/03/20 09:21 Pulse Rate 74 Respiratory Rate 18 Blood Pressure 175/60 H Pulse Oximetry 96 <DO Shakeel Sen Last Filed: 09/03/20 18:34> Orders Ordered: Discontinued Medications Diphenhydramine HCl (Diphenhydramine 50 Mg/Ml Vial) 25 mg IV NOW ONE Stop: 09/03/20 08:34 Last Admin: 09/03/20 09:20 Dose: Not Given Documented by: JULIAN Methylprednisolone (Methylprednisolone 125 Mg/2 Ml Vial) 125 mg IV NOW ONE Stop: 09/03/20 08:34 Last Admin: 09/03/20 09:20 Dose: Not Given Documented by: JULIAN Vital Signs Vital signs: Vital Signs - 8 hr 09/03/20 07:35 09/03/20 08:00 09/03/20 08:48 Pulse Rate 96 H 90 Respiratory Rate 18 22 Blood Pressure 155/77 H Pulse Oximetry 96 97 85 L 09/03/20 09:21 Pulse Rate 74 Respiratory Rate 18 Blood Pressure 175/60 H Pulse Oximetry 96 Medical Decision Making <Kin Carrion DO - Last Filed: 09/03/20 17:57> Lab Data Result diagrams: 09/03/20 06:30 09/03/20 06:30 Labs: Lab Results 09/03/20 09/03/20 09/03/20 Range/Units 06:30 06:30 06:45 WBC 6.7 (4.5-11.0) X10^3/uL RBC 4.34 (4.0-5.2) X10^6/uL Hgb 11.4 L (12.0-16.0) g/dL Hct 34.8 L (36-46) % MCV 80.1 (80-100) fL MCH 26.3 (26-34) PG MCHC 32.8 (30-36) % RDW 21.8 H (11.6-14.8) % Plt Count 283 (150-400) X10^3/uL Neut % (Auto) 67.1 (50-75) % Lymph % (Auto) 20.9 L (25-40) % Coryell % (Auto) 6.7 (3-14) % Eos % (Auto) 4.3 H (2-4) % Baso % (Auto) 1.0 (0-2) % Neut # (Auto) 4500 (3491-6041) /uL Lymph # (Auto) 1400 (0326-1021) /uL Coryell # (Auto) 400 (0-900) /uL Eos # (Auto) 300 (0-450) /uL Baso # (Auto) 100 (0-100) /uL RBC Morphology See below Anisocytosis 1+ H D-Dimer (<230) ng/mL Sodium 136 L (137-145) mmol/L Potassium 3.8 (3.4-5.1) mmol/L Chloride 105 (98-107) mmol/L Carbon Dioxide 24 (22-32) mmol/L BUN 19 H (7-17) mg/dL Creatinine 0.65 (0.52-1.04) mg/dL Estimated GFR > 60.0 (>60) mL/min BUN/Creatinine Ratio 29.2 H (6-22) Glucose 119 H (80-110) mg/dL Calcium 9.8 (8.4-10.2) mg/dL Magnesium 2.0 (1.6-2.3) mg/dL Total Bilirubin 0.2 (0.2-1.3) mg/dL AST 36 (14-36) IU/L ALT 23 (<35) IU/L Alkaline Phosphatase 97 (38-126) U/L Total Creatine Kinase 196 H (30-135) U/L CK-MB (CK-2) 2.82 H (<2.37) ng/mL CK-MB (CK-2) Rel Index 1.4 L (1.5-5.0) % Troponin I < 0.012 (0.01-0.034) ng/mL NT-Pro-B Natriuret Pep 61 (<125) pg/mL Total Protein 7.3 (6.3-8.2) g/dL Albumin 4.2 (3.5-5.0) g/dL Globulin 3.1 (1.7-4.1) g/dL Albumin/Globulin Ratio 1.4 (1.0-2.8) Lipase 102 (23-300) U/L SARS-CoV-2 (PCR) Negative (Negative) 09/03/20 Range/Units 07:44 WBC (4.5-11.0) X10^3/uL RBC (4.0-5.2) X10^6/uL Hgb (12.0-16.0) g/dL Hct (36-46) % MCV (80-100) fL MCH (26-34) PG MCHC (30-36) % RDW (11.6-14.8) % Plt Count (150-400) X10^3/uL Neut % (Auto) (50-75) % Lymph % (Auto) (25-40) % Coryell % (Auto) (3-14) % Eos % (Auto) (2-4) % Baso % (Auto) (0-2) % Neut # (Auto) (1254-4513) /uL Lymph # (Auto) (7140-1925) /uL Coryell # (Auto) (0-900) /uL Eos # (Auto) (0-450) /uL Baso # (Auto) (0-100) /uL RBC Morphology Anisocytosis D-Dimer 738 H (<230) ng/mL Sodium (137-145) mmol/L Potassium (3.4-5.1) mmol/L Chloride (98-107) mmol/L Carbon Dioxide (22-32) mmol/L BUN (7-17) mg/dL Creatinine (0.52-1.04) mg/dL Estimated GFR (>60) mL/min BUN/Creatinine Ratio (6-22) Glucose (80-110) mg/dL Calcium (8.4-10.2) mg/dL Magnesium (1.6-2.3) mg/dL Total Bilirubin (0.2-1.3) mg/dL AST (14-36) IU/L ALT (<35) IU/L Alkaline Phosphatase (38-126) U/L Total Creatine Kinase (30-135) U/L CK-MB (CK-2) (<2.37) ng/mL CK-MB (CK-2) Rel Index (1.5-5.0) % Troponin I (0.01-0.034) ng/mL NT-Pro-B Natriuret Pep (<125) pg/mL Total Protein (6.3-8.2) g/dL Albumin (3.5-5.0) g/dL Globulin (1.7-4.1) g/dL Albumin/Globulin Ratio (1.0-2.8) Lipase (23-300) U/L SARS-CoV-2 (PCR) (Negative) ECG Data Attestation: I personally reviewed and interpreted this ECG as follows: Interpretation: Sinus rhythm Ventricular rate 85 Normal axis Normal QRS Normal QTC No ST T wave changes MDM Narrative Medical decision making narrative: Patient is tachypneic but does have a clear lung exam. We were able to contact the outside facility and earlier this week she had what appeared to be a manometry study of her esophagus. There is no definitive report available yet for evaluation. Given her presentation I do feels important to make sure we are not missing other issues such as blood clot/ACS/pneumonia. Labs and x-rays ordered. Care turned over to day provider to follow up and disposition. <Allyssa Limon DO - Last Filed: 09/03/20 18:34> Lab Data Labs: Lab Results 09/03/20 09/03/20 09/03/20 Range/Units 06:30 06:30 06:45 WBC 6.7 (4.5-11.0) X10^3/uL RBC 4.34 (4.0-5.2) X10^6/uL Hgb 11.4 L (12.0-16.0) g/dL Hct 34.8 L (36-46) % MCV 80.1 (80-100) fL MCH 26.3 (26-34) PG MCHC 32.8 (30-36) % RDW 21.8 H (11.6-14.8) % Plt Count 283 (150-400) X10^3/uL Neut % (Auto) 67.1 (50-75) % Lymph % (Auto) 20.9 L (25-40) % Coryell % (Auto) 6.7 (3-14) % Eos % (Auto) 4.3 H (2-4) % Baso % (Auto) 1.0 (0-2) % Neut # (Auto) 4500 (1067-9437) /uL Lymph # (Auto) 1400 (8164-0228) /uL Coryell # (Auto) 400 (0-900) /uL Eos # (Auto) 300 (0-450) /uL Baso # (Auto) 100 (0-100) /uL RBC Morphology See below Anisocytosis 1+ H D-Dimer (<230) ng/mL Sodium 136 L (137-145) mmol/L Potassium 3.8 (3.4-5.1) mmol/L Chloride 105 (98-107) mmol/L Carbon Dioxide 24 (22-32) mmol/L BUN 19 H (7-17) mg/dL Creatinine 0.65 (0.52-1.04) mg/dL Estimated GFR > 60.0 (>60) mL/min BUN/Creatinine Ratio 29.2 H (6-22) Glucose 119 H (80-110) mg/dL Calcium 9.8 (8.4-10.2) mg/dL Magnesium 2.0 (1.6-2.3) mg/dL Total Bilirubin 0.2 (0.2-1.3) mg/dL AST 36 (14-36) IU/L ALT 23 (<35) IU/L Alkaline Phosphatase 97 (38-126) U/L Total Creatine Kinase 196 H (30-135) U/L CK-MB (CK-2) 2.82 H (<2.37) ng/mL CK-MB (CK-2) Rel Index 1.4 L (1.5-5.0) % Troponin I < 0.012 (0.01-0.034) ng/mL NT-Pro-B Natriuret Pep 61 (<125) pg/mL Total Protein 7.3 (6.3-8.2) g/dL Albumin 4.2 (3.5-5.0) g/dL Globulin 3.1 (1.7-4.1) g/dL Albumin/Globulin Ratio 1.4 (1.0-2.8) Lipase 102 (23-300) U/L SARS-CoV-2 (PCR) Negative (Negative) 09/03/20 Range/Units 07:44 WBC (4.5-11.0) X10^3/uL RBC (4.0-5.2) X10^6/uL Hgb (12.0-16.0) g/dL Hct (36-46) % MCV (80-100) fL MCH (26-34) PG MCHC (30-36) % RDW (11.6-14.8) % Plt Count (150-400) X10^3/uL Neut % (Auto) (50-75) % Lymph % (Auto) (25-40) % Cory[place] % (Auto) (3-14) % Eos % (Auto) (2-4) % Baso % (Auto) (0-2) % Neut # (Auto) (8787-7273) /uL Lymph # (Auto) (0973-9276) /uL Coryell # (Auto) (0-900) /uL Eos # (Auto) (0-450) /uL Baso # (Auto) (0-100) /uL RBC Morphology Anisocytosis D-Dimer 738 H (<230) ng/mL Sodium (137-145) mmol/L Potassium (3.4-5.1) mmol/L Chloride (98-107) mmol/L Carbon Dioxide (22-32) mmol/L BUN (7-17) mg/dL Creatinine (0.52-1.04) mg/dL Estimated GFR (>60) mL/min BUN/Creatinine Ratio (6-22) Glucose (80-110) mg/dL Calcium (8.4-10.2) mg/dL Magnesium (1.6-2.3) mg/dL Total Bilirubin (0.2-1.3) mg/dL AST (14-36) IU/L ALT (<35) IU/L Alkaline Phosphatase (38-126) U/L Total Creatine Kinase (30-135) U/L CK-MB (CK-2) (<2.37) ng/mL CK-MB (CK-2) Rel Index (1.5-5.0) % Troponin I (0.01-0.034) ng/mL NT-Pro-B Natriuret Pep (<125) pg/mL Total Protein (6.3-8.2) g/dL Albumin (3.5-5.0) g/dL Globulin (1.7-4.1) g/dL Albumin/Globulin Ratio (1.0-2.8) Lipase (23-300) U/L SARS-CoV-2 (PCR) (Negative) MDM Narrative Medical decision making narrative: Patient is tachypneic but does have a clear lung exam. We were able to contact the outside facility and earlier this week she had what appeared to be a manometry study of her esophagus. There is no definitive report available yet for evaluation. Given her presentation I do feels important to make sure we are not missing other issues such as blood clot/ACS/pneumonia. Labs and x-rays ordered. Care turned over to day provider to follow up and disposition. Mansooram-CHELO I have seen and evaluated patient. She is comfortably sitting in her bed. She has no difficulty breathing O2 is 96% is. She is quite convinced that is time that she of her hiatal hernia repair. He says that getting up and down her stai rs is quite difficult. She says she has a difficult time doing her daily living activities including cooking going to the bathroom. She supposedly had a test done at [facility] stating that she was at 50% capacity I am not sure exactly what this means. I have discussed case with Dr. Clifford, at this time there is no need to have immediate hiatal hernia repair. She is having no significant chest pain. Patient ambulates and O2 does drop to 85 86% and comes up and under minute at [facility]. D-dimer is elevated although lower than what it was. CT angio has been ordered. Patient proceeds to get into an argument about allergic reaction. 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 She has previously received pre treatment with Solu-Medrol Benadryl and done okay. Last CTA was done in February of this year no reported problems. In March she had a barium swallow which she apparently had a reaction to I do not have documentation of that. However I have confirmed with internet sales director stating that she did have a reaction to an oral. They stated that she should not have any IV with out pre treatment. Patient is not willing to be pretreated for her CT angio to rule out pulmonary embolism for her low O2. I am not willing to give her iodine contrast without being pre treated. I have since offered her admission to the hospital to help with her hypoxia got. She certainly is having exertional dyspnea that is unexplained at this time. I do not think it is related to her hiatal hernia. Tried to explain this to her multiple times. I tried to receive records from [facility] in regard to her manometry (the test she actually had) that was done earlier this week however records are not available. Patient got extremely frustrated she she opted to go home all aware that she may have a pulmonary embolism and may lead to . She did not have anyone to watch her dogs. I think patient has some reactive airway disease she has previously been on steroids which have helped. However she has an allergy to some of them as well. She left prior to her paperwork. The patient is clinically sober, free from distracting injury, appears to have intact insight, judgment and reason. Does not meet criteria for involuntary hospitalization. Patient has the capacity to make decisions. Discharge Plan Departure Patient Disposition: Home Clinical Impression: Esophageal hiatal hernia Instructions: Hiatal Hernia Activity Restrictions/Additional Instructions: You are diagnosed with a hiatal hernia At this time there is no emergency to have your hiatal hernia repaired. You had a test called manometry at [facility]. This measures the esophagus and does not measure anything with respiratory. Unfortunately these complete results are not ready for me to review, I have called over to [facility] to get them. I discussed case with Dr. Clifford your surgeon who does not think he needed emergent surgery. You may follow-up with him in the clinic. Your offered a CT of the chest to evaluate your hiatal hernia and check for blood clot but You opted not to. Your oxygen level was checked in the emergency department and it decreased to below 90% which is concerning Please call your primary care provider to schedule an appointment in the next 2- 3 days Return to the emergency department if you are having increased chest pain palpitations dizziness lightheadedness or any new or worsening symptoms Prescriptions: No Action potassium chloride 20 mEq tablet extended release 10 meq PO DAILY PRN (Reason: Take w/lasix) RF: 0 diazepam 5 mg tablet 5 mg PO BID PRN (Reason: Anxiety) RF: 0 fluticasone propionate 50 mcg/actuation spray,suspension 1 spray intranasal BID RF: 0 gabapentin [Neurontin] 600 mg tablet 600 mg PO QID RF: 0 mirtazapine 7.5 mg tablet 7.5 mg PO BEDTIME Qty: 30 RF: 2 Hold Instructions: not currently taking Trintellix 20 mg tablet 20 mg PO DAILY Qty: 30 RF: 3 levalbuterol HCl 0.63 mg/3 mL solution for nebulization 0.63 mg INHALATION Q8H PRN (Reason: shortness of breath or wheezing) Qty: 90 RF: 11 methocarbamol 750 mg tablet 750 mg PO TID PRN (Reason: Spasms) Qty: 90 RF: 3 pramipexole [Mirapex] 0.75 mg tablet 0.75 mg PO BEDTIME Qty: 90 RF: 3 epinephrine 0.3 mg/0.3 mL auto-injector 0.3 mg IM ONCE PRN (Reason: Allergic Reaction) Qty: 1 RF: 11 budesonide-formoterol [Symbicort] 80-4.5 mcg/actuation HFA aerosol inhaler 2 puff INHALATION BID Qty: 10.2 RF: 0 sumatriptan succinate 100 mg tablet 100 mg PO ONCE PRN (Reason: migraine headache) Qty: 14 RF: 3 montelukast 10 mg tablet 10 mg PO BEDTIME PRN (Reason: Allergy Symptoms) Qty: 90 RF: 3 rizatriptan 10 mg tablet 10 mg PO .COMPLEX PRN (Reason: migraine headache) Qty: 12 RF: 3 levalbuterol tartrate [Xopenex HFA] 45 mcg/actuation HFA aerosol inhaler 2 inhalation INHALATION BID RF: 0 lidocaine 5 % Ointment 1 applic TOPICAL TID PRN (Reason: pain) RF: 0 ketotifen fumarate [Zaditor] 0.025 % (0.035 %) Drops 1 drp OPHTHALMIC (EYE) BID RF: 0 furosemide 40 mg tablet 40 mg PO DAILY PRN (Reason: edema) Qty: 30 RF: 0 sennosides [senna] 8.6 mg Tablet 17.2 mg PO BEDTIME PRN (Reason: Constipation) RF: 0 diphenhydramine HCl [Benadryl] 25 mg Capsule 75 mg PO DAILY PRN (Reason: Allergy Symptoms) RF: 0 omeprazole 40 mg Capsule,Delayed Release(Dr/Ec) 40 mg PO BID RF: 0 ondansetron 8 mg Tablet,Disintegrating 8 mg PO Q8H PRN (Reason: Nausea) RF: 0 garlic 600 mg Capsule 1,200 mg PO DAILY RF: 0 oxycodone 5 mg Tablet 5 mg PO QID PRN (Reason: Pain (Scale Score 1-3)) RF: 0 promethazine 25 mg tablet 25 mg PO TID PRN (Reason: nausea and vomiting) Qty: 10 RF: 0 Referrals: Becky Rod PA-C [Primary Care Provider] -
[2020-09-03 06:54] LABS: Alanine Aminotransferase 23 IU/L (<35); Albumin 4.2 g/dL (3.5-5.0); Albumin Globulin Ratio 1.4 (1.0-2.8); Alkaline Phosphatase 97 U/L (38-126); Aspartate Aminotransferase 36 IU/L (14-36); BUN Creatinine Ratio 29.2 (6-22); Bilirubin Total 0.2 mg/dL (0.2-1.3); Blood Urea Nitrogen 19 mg/dL (7-17); Calcium 9.8 mg/dL (8.4-10.2); Carbon Dioxide 24 mmol/L (22-32); Chloride 105 mmol/L (98-107); Creatine Kinase 196 U/L (30-135); Estimated Glomerular Filt Rate > 60.0 mL/min (>60); Globulin 3.1 g/dL (1.7-4.1); Glucose 119 mg/dL (80-110); HEMOLYSIS < 15 (0-50); Lipase 102 U/L (23-300); Potassium 3.8 mmol/L (3.4-5.1); Sodium 136 mmol/L (137-145); Total Protein 7.3 g/dL (6.3-8.2)
[2020-09-03 07:01] LABS: Anisocytosis 1+
[2020-09-03 07:05] LABS: NT-proBNP (BNP-Adult 18+) 61 pg/mL (<125); Troponin I < 0.012 ng/mL (0.01-0.034)
[2020-09-03 07:09] LABS: CKMB % Relative Index 1.4 % (1.5-5.0); Creatine Kinase MB 2.82 ng/mL (<2.37)
[2020-09-03 07:28] LABS: COVID19 -Nasal RAPID Negative (Negative)
[2020-09-03 07:35] VITALS: BP 155/77; PULSE 96; RESP 18; O2SAT 96
[2020-09-03 08:00] VITALS: PULSE 90; O2SAT 97
[2020-09-03 08:05] LABS: D Dimer 738 ng/mL (<230)
[2020-09-03 08:48] VITALS: RESP 22; O2SAT 85
[2020-09-03 09:21] VITALS: BP 175/60; PULSE 74; RESP 18; O2SAT 96
== END 2020-09-03 09:22 | disposition home or self-care (01) ==
PROVIDERS: Emergency Medicine; Emergency Provider Emergency Medicine; PCP Physician Assistant
DX: K44.9 Diaphragmatic hernia without obstruction or gangrene (principal); Z20.822 Contact with and (suspected) exposure to COVID-19
CPT/HCPCS: 36415; 71045; 80053; 82550; 82553; 83690; 83735; 83880; 84484; 85025; 85379; 87635; 93005; 93010; 99284; C9803

== ENCOUNTER 2020-09-07 11:32 | Emergency (ER) | payer OTHER, MEDICAID, SELFPAY ==
[2020-08-27 13:41] VITALS: BMI 35.4
[2020-09-07] VITALS (10 sets, daily range): BP systolic 126–146; BP diastolic 58–80; PULSE 63–75; RESP 17–24; TEMP 36.8; O2SAT 94–99; BMI 37.5
--- NOTE | 2020-09-07 12:01 | ED.SOB ---
HPI - SOB/Dyspnea General Chief Complaint: Shortness of Breath/Dyspnea Stated Complaint: hard time breathing Time Seen by Provider: 09/07/20 11:39 Source: patient Mode of arrival: Wheelchair Limitations: no limitations History of Present Illness HPI Narrative: Patient is a 64-year-old female with history of chronic asthma, migraine disorder, fibromyalgia, anxiety and depression presents with many weeks if not months of difficulty breathing, she has shortness of breath with exertion, she has shortness of breath when lying flat. She has had multiple evaluations and much attention is being paid to a large esophageal hernia which has recently been evaluated by manometry at [facility], records are still not available. She denies any waking, she has had no significant cough and denies any fever or chills. She had been seen and evaluated in our department few days ago and was actually hypoxic at the time and had been scheduled for a CT angiogram to rule out PE given an elevated D-dimer. Patient had a procedure earlier this calendar year and had a significant allergic reaction to an oral contrast. She has previously had CT angiogram of the chest for PE with pretreatment and did just fine. Pretreatment medications were ordered at the visit a few days ago but patient refused and left Against Medical Advice. She was apparently seen by her primary care provider today and was sent here with request for PE study Related Data Home Medications Medication Instructions Recorded Confirmed sennosides 8.6 mg tablet (senna) 17.2 mg PO BEDTIME PRN 09/20/18 06/18/20 potassium chloride 20 mEq 10 meq PO DAILY PRN 10/29/18 06/18/20 tablet,extended release levalbuterol tartrate 45 2 inhalation INHALATION BID gram 08/26/19 06/18/20 mcg/actuation aerosol inhaler (Xopenex HFA) diphenhydramine HCl 25 mg capsule 75 mg PO DAILY PRN 10/26/19 06/18/20 (Benadryl) diazepam 5 mg tablet 5 mg PO BID PRN tab 12/12/19 06/18/20 omeprazole 40 mg capsule,delayed 40 mg PO BID 02/10/20 06/18/20 release lidocaine 5 % topical ointment 1 applic TOPICAL TID PRN 02/24/20 06/18/20 ketotifen fumarate 0.025 % (0.035 1 drp OPHTHALMIC (EYE) BID 03/02/20 06/18/20 %) eye drops (Zaditor) fluticasone propionate 50 1 spray INTRANASAL BID 04/02/20 06/18/20 mcg/actuation nasal spray,suspension gabapentin 600 mg tablet 600 mg PO QID tab 04/02/20 06/18/20 (Neurontin) garlic 600 mg capsule 1,200 mg PO DAILY 06/29/20 06/29/20 ondansetron 8 mg disintegrating 8 mg PO Q8H PRN 06/29/20 06/29/20 tablet oxycodone 5 mg tablet 5 mg PO QID PRN 06/29/20 06/29/20 Previous Rx's Medication Instructions Recorded levalbuterol HCl 0.63 mg/3 mL 0.63 mg INHALATION Q8H PRN #90 ml 09/11/19 solution for nebulization methocarbamol 750 mg tablet 750 mg PO TID PRN #90 tab 09/29/19 pramipexole 0.75 mg tablet 0.75 mg PO BEDTIME #90 tab 09/29/19 (Mirapex) epinephrine 0.3 mg/0.3 mL 0.3 mg IM ONCE PRN #1 ea 01/01/20 injection, auto-injector budesonide-formoterol HFA 80 2 puff INHALATION BID #10.2 gram 01/28/20 mcg-4.5 mcg/actuation aerosol inhaler (Symbicort) montelukast 10 mg tablet 10 mg PO BEDTIME PRN #90 tab 02/23/20 rizatriptan 10 mg tablet 10 mg PO .COMPLEX PRN #12 tab 02/23/20 sumatriptan succinate 100 mg tablet 100 mg PO ONCE PRN #14 tab 02/23/20 furosemide 40 mg tablet 40 mg PO DAILY PRN #30 tab 03/04/20 mirtazapine 7.5 mg tablet 7.5 mg PO BEDTIME #30 tab 04/02/20 promethazine 25 mg tablet 25 mg PO TID PRN #10 tab 05/13/20 Trintellix 20 mg tablet 20 mg PO DAILY #30 tab NS 06/18/20 (vortioxetine) Allergies Allergy/AdvReac Type Severity Reaction Status Date / Time Iodinated Contrast Media Allergy Severe Difficulty Verified 07/23/20 12:51 Breathing latex Allergy Severe Rash Verified 07/06/20 13:04 morphine [MORPHINE] Allergy Severe Anaphylaxis Verified 07/06/20 13:04 Penicillins [PENICILLINS] Allergy Severe Anaphylaxis Verified 07/06/20 13:04 Sulfa (Sulfonamide Allergy Severe RASH Verified 07/06/20 13:04 Antibiotics) [SULFA (SULFONAMIDE ANTIBIOTICS)] azithromycin Allergy Intermediate Rash Verified 07/06/20 13:04 [From ZITHROMAX Z-MARILYN] cefuroxime [From Ceftin] Allergy Intermediate Rash Verified 07/06/20 13:04 sulfamethoxazole Allergy Intermediate RASH Verified 07/06/20 13:04 [From SEPTRA] trimethoprim [From SEPTRA] Allergy Intermediate RASH Verified 07/06/20 13:04 ciprofloxacin [From Cipro] Allergy Pt does Verified 07/06/20 13:04 not remember reaction Corticosteroids Allergy Swelling Verified 07/06/20 13:04 (Glucocorticoids) of Lip/Tongue/Throat cephalexin [From Keflex] AdvReac Severe Fever, Verified 07/06/20 13:04 Asthma, Tachycardia prednisone AdvReac Severe nausea and Verified 07/06/20 13:04 feels very weak, and axious verapamil AdvReac Intermediate Asthma Verified 07/06/20 13:04 symptoms zonisamide AdvReac Intermediate Asthma Verified 07/06/20 13:04 symptoms Review of Systems Review of Systems Narrative: GENERAL: Denies chills, fatigue, malaise, fever, sweats. HEENT: Denies sinus pain, ear pain, sore throat, difficulty swallowing, dizziness. RESPIRATORY: See HPI CARDIOVASCULAR: Denies chest pain, palpitations, orthopnea, edema, GASTROINTESTINAL: Denies nausea, vomiting, abdominal pain, diarrhea, constipation, melena. : Denies dysuria, frequency, incontinence, hematuria, urinary retention. MUSCULOSKELETAL: denies weakness, joint pain, or bony pain SKIN: Denies rash, skin lesions, or other NEUROLOGIC: Denies weakness, headache, numbness, change in speech, confusion, seizures, incoordination. PSYCHIATRIC: No concerning psychosocial issues. 12 point review of systems is negative except for those stated above Patient History Medical History Anemia Anxiety Asthma Chronic back pain Chronic cough Depression Femur fracture, left Fibromyalgia Fractures GERD (gastroesophageal reflux disease) Hiatal hernia Recurrent sinusitis Venous insufficiency (chronic) (peripheral) Surgical History Anesthesia History of eye surgery (~1973) History of foot surgery History of hysterectomy (~1979) History of shoulder surgery (~2011) History of tonsillectomy (~1975) Hx of bilateral cataract extraction Family History (System 07/06/20 @ 13:04 by Veronika Caldwell) Mother Heart disease Social History marital status: number of children: 1 household members: none lives independently: Yes caregiver/support person: Yes (3 afternoons per week) pets and animals: Yes occupational status: disabled Smoking Status: Never smoker alcohol intake: never substance use type: does not use Smoking Status: Never smoker alcohol intake frequency: holidays/special occasions only Substance Use Type: does not use Exam Narrative Exam Narrative: GENERAL: 64 year old patient appears stated age. Well-developed patient, in mild distress. Anxious HEAD: Atraumatic. Normocephalic. EYES: Pupils equal round and reactive. Extraocular motions intact. No scleral icterus. No injection or drainage. ENT: Nose without bleeding, purulent drainage. Throat without erythema, tonsillar hypertrophy or exudate. Airway patent. NECK: Trachea midline. Non tender CARDIOVASCULAR: Regular rate and rhythm without murmurs, gallops, or rubs. RESPIRATORY: Clear to auscultation. Breath sounds equal bilaterally. No wheezes, rales, or rhonchi. No signs of respiratory distress GASTROINTESTINAL: Abdomen soft, non-tender, nondistended. EXTREMITIES: No edema or joint tenderness. BACK: Nontender without deformity or crepitance. No flank tenderness. NEURO: AOx3. SKIN: No rash or erythema of visible areas Initial Vital Signs Initial Vital Signs: Vital Signs Pulse Rate 65 09/07/20 11:44 Respiratory Rate 17 09/07/20 11:44 Pulse Oximetry 98 09/07/20 11:44 Course Orders Ordered: Discontinued Medications Diphenhydramine HCl (Diphenhydramine 50 Mg/Ml Vial) 25 mg IV NOW ONE Stop: 09/07/20 11:45 Last Admin: 09/07/20 12:14 Dose: 25 mg Documented by: GURWINDER Famotidine (Famotidine 20 Mg/2 Ml Vial) 20 mg IV NOW ZHANG Last Admin: 09/07/20 12:14 Dose: 20 mg Documented by: GURWINDER Lorazepam (Lorazepam 2 Mg/Ml Inj) 1 mg IV NOW ONE Stop: 09/07/20 12:17 Last Admin: 09/07/20 12:32 Dose: 1 mg Documented by: GURWINDER Methylprednisolone (Methylprednisolone 125 Mg/2 Ml Vial) 125 mg IV NOW ONE Stop: 09/07/20 11:45 Last Admin: 09/07/20 12:14 Dose: 125 mg Documented by: GURWINDER Reevaluation(s) Reevaluation #1: Patient largely asymptomatic for the duration of her visit. She does have some mild shortness of breath but states this is what she has been dealing with for many months. At no point did she become hypoxic Vital Signs Vital signs: Vital Signs - 8 hr 09/07/20 11:44 09/07/20 11:55 09/07/20 12:00 Temperature 98.3 F Pulse Rate 65 69 72 Respiratory Rate 17 20 22 Blood Pressure 146/80 H Pulse Oximetry 98 99 94 09/07/20 12:01 09/07/20 12:30 09/07/20 13:11 Temperature Pulse Rate 73 68 72 Respiratory Rate 24 19 Blood Pressure 134/69 126/58 L Pulse Oximetry 96 97 09/07/20 13:30 09/07/20 14:00 09/07/20 14:19 Temperature Pulse Rate 63 66 75 Respiratory Rate 18 Blood Pressure 145/68 H Pulse Oximetry 96 95 MDM - SOB/Dyspnea Lab Data Result diagrams: 09/07/20 12:05 09/07/20 12:05 Labs: Lab Results 09/07/20 09/07/20 09/07/20 Range/Units 12:05 12:05 12:05 WBC 4.7 (4.5-11.0) X10^3/uL RBC 4.67 (4.0-5.2) X10^6/uL Hgb 12.1 (12.0-16.0) g/dL Hct 37.5 (36-46) % MCV 80.3 (80-100) fL MCH 25.9 L (26-34) PG MCHC 32.3 (30-36) % RDW 21.3 H (11.6-14.8) % Plt Count 332 (150-400) X10^3/uL Neut % (Auto) 64.0 (50-75) % Lymph % (Auto) 25.9 (25-40) % [place] % (Auto) 7.6 (3-14) % Eos % (Auto) 1.8 L (2-4) % Baso % (Auto) 0.7 (0-2) % Neut # (Auto) 3000 (8075-8699) /uL Lymph # (Auto) 1200 (1418-8983) /uL [place] # (Auto) 400 (0-900) /uL Eos # (Auto) 100 (0-450) /uL Baso # (Auto) 0 (0-100) /uL RBC Morphology See below Anisocytosis 2+ H Sodium 140 (137-145) mmol/L Potassium 3.9 (3.4-5.1) mmol/L Chloride 105 (98-107) mmol/L Carbon Dioxide 29 (22-32) mmol/L BUN 15 (7-17) mg/dL Creatinine 0.68 (0.52-1.04) mg/dL Estimated GFR > 60.0 (>60) mL/min BUN/Creatinine Ratio 22.1 H (6-22) Glucose 114 H (80-110) mg/dL Calcium 9.9 (8.4-10.2) mg/dL Magnesium 2.0 (1.6-2.3) mg/dL Total Bilirubin 0.2 (0.2-1.3) mg/dL AST 43 H (14-36) IU/L ALT 29 (<35) IU/L Alkaline Phosphatase 112 (38-126) U/L Total Creatine Kinase 219 H (30-135) U/L CK-MB (CK-2) 3.53 H (<2.37) ng/mL CK-MB (CK-2) Rel Index 1.6 (1.5-5.0) % Troponin I < 0.012 (0.01-0.034) ng/mL NT-Pro-B Natriuret Pep 66 (<125) pg/mL Total Protein 7.7 (6.3-8.2) g/dL Albumin 4.4 (3.5-5.0) g/dL Globulin 3.3 (1.7-4.1) g/dL Albumin/Globulin Ratio 1.3 (1.0-2.8) Urine Dip Bedside Urine Glucose Negative Bedside Urine Bilirubin - Negative Bedside Urine Ketone - Negative Urine Specific [place] 1.010 Bedside Urine Occult Blood - Negative Bedside Urine pH 6 Bedside Urine Protein - Negative Bedside Urine Urobilinogen - Negative Bedside Urine Nitrite - Negative Bedside Urine Leukocytes - Negative Esterase Imaging Data CT scan - chest: Radiologist's Impression: [facility] [place] [id number] Scan ReportSigned Patient: Sheryl LennonMR#: [id number]: 5Acct:[id number]/Sex: 64 / FDate of Service: 09/07/20Loc: EDAccession Number: [id number] Procedure: CT angio chest PE protocol Ordering Provider: Gerson De Jesus D.O. PROCEDURE: CT ANGIO CHEST PE PROTOCOL INDICATIONS: concern for PE, hypoxemia, SOB, high risk, elevated dimer TECHNIQUE: After the administration of intravenous contrast, 2 mm thick sections acquired from the pulmonary apices to the posterior costophrenic angles. 3-dimensional maximum intensity projection (MIP) coronal and sagittal reformats were then acquired through the thorax. For radiation dose reduction, the following was used: automated exposure control, adjustment of mA and/or kV according to patient size. COMPARISON: [facility], CT, CT ABDOMEN PELVIS WO CON, 07/14/2020, 10:51. [facility], CR, XR CHEST 1V, 09/03/2020, 6:31. [facility], CT, CT ANGIO CHEST PE PROTOCOL, 03/01/2020, 2:58. FINDINGS: Image quality: Excellent. Pulmonary arteries: Pulmonary arteries are normal in size, and demonstrate no intraluminal filling defects to suggest central pulmonary embolism. Lungs and pleura: There is a 3 mm nodule in the right upper lobe (series 5, image 105), not seen on the last exam. A 0.8 cm nodule is seen in the right middle lobe adjacent to the right cardiac border (series 5, image 137), stable since the last exam on 03/01/2020. There are scars and atelectasis in lingula and right lower lobe. No pleural effusions or pneumothorax. Central and peripheral airways are patent. Mediastinum: Heart size is moderately increased, without pericardial effusion. Mild coronary artery calcification. No mediastinal or hilar adenopathy. Thoracic aorta is normal in caliber and enhancement. Esophagus is normal in caliber. There is a large hiatal hernia. Bones and chest wall: No suspicious bony lesions. Ribs and thoracic spine appear intact throughout. Thyroid gland is normal. No axillary or supraclavicular adenopathy. Abdomen: Visualized upper abdominal solid organs appear normal in the early arterial phase of enhancement. IMPRESSION: 1. No evidence for pulmonary embolism. 2. A couple of right lung nodules are present. The 3 mm nodule was not definitively seen on the last exam. The 0.8 cm nodule was present on the last exam and appears unchanged. Please see enclosed follow-up recommendation. 3. Moderate cardiomegaly. Mild coronary artery calcification. 4. Lingula and right lower lobe scars and atelectasis. 5. Large hiatal hernia. Fleischner Society criteria for SOLID lung nodule followup. Nodule size (mm)Low-risk patientHigh-risk patient?4No follow-up neededFollow-up at 12 mo; if no change, no further follow-up>[id number] CT at 12 mo; if no change, no further follow-up needed.Initial follow-up CT at 6-12 mo, then 18-24 mo if no change. >6-8Initial follow-up CT at 6-12 mo, then 18-24 mo if no change. Initial follow-up CT at 3-6 mo, then 9-12 mo and 24 mo if no change. >8Follow-up CT at 3, 9, 24 mo. Or PET and/or biopsy.Same as for low-risk pts. Dictated by: Rosanne Alex M.D. on 09/07/2020 at 12:40 Approved by: Rosanne Alex M.D. on 09/07/2020 at 13:11 [facility] Narrative Medical decision making narrative: Multiple etiologies for patient's symptoms considered including: [Pulmonary embolism versus could just to heart failure versus pneumonia versus pneumothorax versus electrolyte abnormality versus anemia versus other] Patient's symptoms remain stable over the duration of the visit. No indication of any allergic reaction to IV contrast Findings and discharge diagnosis discussed with patient/family followed by verbalization of understanding Return precautions discussed with patient/family whom verbalize understanding. Discharge Plan Departure Patient Disposition: Home Clinical Impression: Acute dyspnea, Hernia, hiatal Instructions: Hiatal Hernia Activity Restrictions/Additional Instructions: *You have been diagnosed with [ dyspnea and hiatal hernia] *What to do: *Please continue to take your regular medications as directed. [ ] New medication prescriptions sent to your pharmacy: [ ] [ ] New medication written as a paper prescription [x ] No new medications given *Please follow up with your primary care provider in 2-3 days, call for an appointment. Let them know you were seen in the Emergency Department and that we ask that you be seen in follow up. We will electronically transmit a record of today's note if your PCP is in our system *If you do not have a primary care provider please contact the [facility] Resource line at [phone]. They will ask some questions about your medical history and help get you set up with a doctor in the community. *Return to Emergency Department if you should have any new, worsening or concerning symptoms, such as [fever greater than 101 F, shaking chills, worsening pain, persistent vomiting or other bothersome symptoms] Prescriptions: No Action potassium chloride 20 mEq tablet extended release 10 meq PO DAILY PRN (Reason: Take w/lasix) RF: 0 diazepam 5 mg tablet 5 mg PO BID PRN (Reason: Anxiety) RF: 0 fluticasone propionate 50 mcg/actuation spray,suspension 1 spray intranasal BID RF: 0 gabapentin [Neurontin] 600 mg tablet 600 mg PO QID RF: 0 mirtazapine 7.5 mg tablet 7.5 mg PO BEDTIME Qty: 30 RF: 2 Hold Instructions: not currently taking Trintellix 20 mg tablet 20 mg PO DAILY Qty: 30 RF: 3 levalbuterol HCl 0.63 mg/3 mL solution for nebulization 0.63 mg INHALATION Q8H PRN (Reason: shortness of breath or wheezing) Qty: 90 RF: 11 methocarbamol 750 mg tablet 750 mg PO TID PRN (Reason: Spasms) Qty: 90 RF: 3 pramipexole [Mirapex] 0.75 mg tablet 0.75 mg PO BEDTIME Qty: 90 RF: 3 epinephrine 0.3 mg/0.3 mL auto-injector 0.3 mg IM ONCE PRN (Reason: Allergic Reaction) Qty: 1 RF: 11 budesonide-formoterol [Symbicort] 80-4.5 mcg/actuation HFA aerosol inhaler 2 puff INHALATION BID Qty: 10.2 RF: 0 sumatriptan succinate 100 mg tablet 100 mg PO ONCE PRN (Reason: migraine headache) Qty: 14 RF: 3 montelukast 10 mg tablet 10 mg PO BEDTIME PRN (Reason: Allergy Symptoms) Qty: 90 RF: 3 rizatriptan 10 mg tablet 10 mg PO .COMPLEX PRN (Reason: migraine headache) Qty: 12 RF: 3 levalbuterol tartrate [Xopenex HFA] 45 mcg/actuation HFA aerosol inhaler 2 inhalation INHALATION BID RF: 0 lidocaine 5 % Ointment 1 applic TOPICAL TID PRN (Reason: pain) RF: 0 ketotifen fumarate [Zaditor] 0.025 % (0.035 %) Drops 1 drp OPHTHALMIC (EYE) BID RF: 0 furosemide 40 mg tablet 40 mg PO DAILY PRN (Reason: edema) Qty: 30 RF: 0 sennosides [senna] 8.6 mg Tablet 17.2 mg PO BEDTIME PRN (Reason: Constipation) RF: 0 diphenhydramine HCl [Benadryl] 25 mg Capsule 75 mg PO DAILY PRN (Reason: Allergy Symptoms) RF: 0 omeprazole 40 mg Capsule,Delayed Release(Dr/Ec) 40 mg PO BID RF: 0 ondansetron 8 mg Tablet,Disintegrating 8 mg PO Q8H PRN (Reason: Nausea) RF: 0 garlic 600 mg Capsule 1,200 mg PO DAILY RF: 0 oxycodone 5 mg Tablet 5 mg PO QID PRN (Reason: Pain (Scale Score 1-3)) RF: 0 promethazine 25 mg tablet 25 mg PO TID PRN (Reason: nausea and vomiting) Qty: 10 RF: 0 Referrals: Becky Rod PA-C [Primary Care Provider] -
[2020-09-07] MEDS: diphenhydrAMINE 50 MG/ML VIAL 25 MG IV (12:14)
[2020-09-07] MEDS: FAMOTIDINE 20 MG/2 ML VIAL IV (12:14)
[2020-09-07] MEDS: methylPREDNISolone 125 MG/2 ML VIAL IV (12:14)
--- NOTE | 2020-09-07 12:16 | DI.CT.S_ITS ---
PROCEDURE: CT ANGIO CHEST PE PROTOCOL INDICATIONS: concern for PE, hypoxemia, SOB, high risk, elevated dimer TECHNIQUE: After the administration of intravenous contrast, 2 mm thick sections acquired from the pulmonary apices to the posterior costophrenic angles. 3-dimensional maximum intensity projection (MIP) coronal and sagittal reformats were then acquired through the thorax. For radiation dose reduction, the following was used: automated exposure control, adjustment of mA and/or kV according to patient size. COMPARISON: [facility], CT, CT ABDOMEN PELVIS WO CON, 07/14/2020, 10:51. [facility], CR, XR CHEST 1V, 09/03/2020, 6:31. [facility], CT, CT ANGIO CHEST PE PROTOCOL, 03/01/2020, 2:58. FINDINGS: Image quality: Excellent. Pulmonary arteries: Pulmonary arteries are normal in size, and demonstrate no intraluminal filling defects to suggest central pulmonary embolism. Lungs and pleura: There is a 3 mm nodule in the right upper lobe (series 5, image 105), not seen on the last exam. A 0.8 cm nodule is seen in the right middle lobe adjacent to the right cardiac border (series 5, image 137), stable since the last exam on 03/01/2020. There are scars and atelectasis in lingula and right lower lobe. No pleural effusions or pneumothorax. Central and peripheral airways are patent. Mediastinum: Heart size is moderately increased, without pericardial effusion. Mild coronary artery calcification. No mediastinal or hilar adenopathy. Thoracic aorta is normal in caliber and enhancement. Esophagus is normal in caliber. There is a large hiatal hernia. Bones and chest wall: No suspicious bony lesions. Ribs and thoracic spine appear intact throughout. Thyroid gland is normal. No axillary or supraclavicular adenopathy. Abdomen: Visualized upper abdominal solid organs appear normal in the early arterial phase of enhancement. IMPRESSION: 1. No evidence for pulmonary embolism. 2. A couple of right lung nodules are present. The 3 mm nodule was not definitively seen on the last exam. The 0.8 cm nodule was present on the last exam and appears unchanged. Please see enclosed follow-up recommendation. 3. Moderate cardiomegaly. Mild coronary artery calcification. 4. Lingula and right lower lobe scars and atelectasis. 5. Large hiatal hernia. Fleischner Society criteria for SOLID lung nodule followup. Nodule size (mm)Low-risk patientHigh-risk patient?4No follow-up neededFollow-up at 12 mo; if no change, no further follow-up>[id number] CT at 12 mo; if no change, no further follow-up needed.Initial follow-up CT at 6-12 mo, then 18-24 mo if no change. >6-8Initial follow-up CT at 6-12 mo, then 18-24 mo if no change. Initial follow-up CT at 3-6 mo, then 9-12 mo and 24 mo if no change. >8Follow-up CT at 3, 9, 24 mo. Or PET and/or biopsy.Same as for low-risk pts. Dictated by: Rosanne Alex M.D. on 09/07/2020 at 12:40 Approved by: Rosanne Alex M.D. on 09/07/2020 at 13:11
[2020-09-07 12:19] LABS: Add Manual Diff / Slide Review NO; Basophils Absolute Auto 0 /uL (0-100); Basophils Percent Auto 0.7 % (0-2); Eosinophils Absolute Auto 100 /uL (0-450); Eosinophils Percent Auto 1.8 % (2-4); Hematocrit 37.5 % (36-46); Hemoglobin 12.1 g/dL (12.0-16.0); Lymphocytes Absolute Auto 1200 /uL (1100-4500); Lymphocytes Percent Auto 25.9 % (25-40); Mean Corpuscular HGB Conc 32.3 % (30-36); Mean Corpuscular Hemoglobin 25.9 PG (26-34); Mean Corpuscular Volume 80.3 fL (80-100); Monocytes Absolute Auto 400 /uL (0-900); Monocytes Percent Auto 7.6 % (3-14); Neutrophils Absolute Auto 3000 /uL (1500-7000); Platelet Count 332 X10^3/uL (150-400); Red Blood Cell Count 4.67 X10^6/uL (4.0-5.2); Red Cell Distribution Width 21.3 % (11.6-14.8); White Blood Cell Count 4.7 X10^3/uL (4.5-11.0)
[2020-09-07 12:30] LABS: Alanine Aminotransferase 29 IU/L (<35); Albumin 4.4 g/dL (3.5-5.0); Albumin Globulin Ratio 1.3 (1.0-2.8); Alkaline Phosphatase 112 U/L (38-126); Aspartate Aminotransferase 43 IU/L (14-36); BUN Creatinine Ratio 22.1 (6-22); Bilirubin Total 0.2 mg/dL (0.2-1.3); Blood Urea Nitrogen 15 mg/dL (7-17); Calcium 9.9 mg/dL (8.4-10.2); Carbon Dioxide 29 mmol/L (22-32); Chloride 105 mmol/L (98-107); Estimated Glomerular Filt Rate > 60.0 mL/min (>60); Globulin 3.3 g/dL (1.7-4.1); Glucose 114 mg/dL (80-110); HEMOLYSIS < 15 (0-50); Potassium 3.9 mmol/L (3.4-5.1); Sodium 140 mmol/L (137-145); Total Protein 7.7 g/dL (6.3-8.2)
[2020-09-07 12:31] LABS: Creatine Kinase 219 U/L (30-135)
[2020-09-07] MEDS: LORazepam 2 MG/ML INJ 1 MG IV (12:32)
[2020-09-07 12:42] LABS: NT-proBNP (BNP-Adult 18+) 66 pg/mL (<125); Troponin I < 0.012 ng/mL (0.01-0.034)
[2020-09-07 12:45] LABS: CKMB % Relative Index 1.6 % (1.5-5.0); Creatine Kinase MB 3.53 ng/mL (<2.37)
[2020-09-07 13:00] LABS: Anisocytosis 2+
== END 2020-09-07 15:08 | disposition home or self-care (01) ==
PROVIDERS: Emergency Provider Emergency Medicine; PCP Physician Assistant
DX: R06.00 Dyspnea, unspecified (principal); K44.9 Diaphragmatic hernia without obstruction or gangrene
CPT/HCPCS: 36415; 71275; 80053; 81003; 82550; 82553; 83735; 83880; 84484; 85025; 93005; 96374; 96375; 99284; J1200; J2060; J2930

== ENCOUNTER 2020-09-09 13:04 | Emergency (ER) | payer OTHER, MEDICAID, SELFPAY ==
[2020-08-27 13:41] VITALS: BMI 35.4
[2020-09-09 13:14] VITALS: BP 128/60; PULSE 82; RESP 15; TEMP 35.9; O2SAT 97; BMI 34.5
== END 2020-09-09 14:00 | disposition left against medical advice (07) ==
PROVIDERS: Emergency Provider Emergency Medicine; PCP Physician Assistant
CPT/HCPCS: 99281

== ENCOUNTER 2020-09-12 19:25 | Emergency (ER) | payer OTHER, MEDICAID, SELFPAY ==
[2020-08-27 13:41] VITALS: BMI 35.4
[2020-09-12] VITALS (8 sets, daily range): BP systolic 109–146; BP diastolic 64–86; PULSE 79–114; RESP 15–35; TEMP 36.4; O2SAT 93–97
--- NOTE | 2020-09-12 19:46 | DI.RAD.S_ITS ---
PROCEDURE: XR CHEST 2V INDICATIONS: shortness of breath TECHNIQUE: 2 views of the chest were acquired. COMPARISON: [facility], CT, CT ANGIO CHEST PE PROTOCOL, 09/07/2020, 13:02. [facility], CR, XR CHEST 1V, 09/03/2020, 6:31. FINDINGS: Surgical changes and devices: Orthopedic artery is partially visualized in the left proximal humerus. Lungs and pleura: Diffuse interstitial prominence is again seen. No acute consolidation. No pleural effusion or pneumothorax. Retrocardiac density is compatible with a known moderate hiatal hernia. Mediastinum: Mediastinal contours are normal. Heart size is normal. Bones and chest wall: No suspicious bony abnormalities. Soft tissues appear unremarkable. IMPRESSION: Diffuse interstitial prominence is suspicious for mild pulmonary edema or atypical pneumonia. Dictated by: Cole Wells M.D. on 09/12/2020 at 20:31 Approved by: Cole Wells M.D. on 09/12/2020 at 20:34
[2020-09-12 20:20] LABS: Lactate (Lactic Acid) 2.1 mmol/L (0.7-2.1)
[2020-09-12 20:21] LABS: Add Manual Diff / Slide Review NO; Alanine Aminotransferase 22 IU/L (<35); Albumin Globulin Ratio 1.3 (1.0-2.8); Alkaline Phosphatase 96 U/L (38-126); Aspartate Aminotransferase 31 IU/L (14-36); BUN Creatinine Ratio 19.2 (6-22); Basophils Absolute Auto 100 /uL (0-100); Basophils Percent Auto 1.3 % (0-2); Bilirubin Total 0.2 mg/dL (0.2-1.3); Blood Urea Nitrogen 20 mg/dL (7-17); Calcium 9.6 mg/dL (8.4-10.2); Carbon Dioxide 24 mmol/L (22-32); Chloride 107 mmol/L (98-107); Eosinophils Absolute Auto 0 /uL (0-450); Eosinophils Percent Auto 0.5 % (2-4); Estimated Glomerular Filt Rate 53.2 mL/min (>60); Glucose 142 mg/dL (80-110); HEMOLYSIS < 15 (0-50); Hematocrit 36.4 % (36-46); Hemoglobin 11.8 g/dL (12.0-16.0); Lymphocytes Absolute Auto 2300 /uL (1100-4500); Lymphocytes Percent Auto 24.8 % (25-40); Mean Corpuscular HGB Conc 32.4 % (30-36); Mean Corpuscular Hemoglobin 26.1 PG (26-34); Mean Corpuscular Volume 80.4 fL (80-100); Monocytes Absolute Auto 500 /uL (0-900); Neutrophils Absolute Auto 6500 /uL (1500-7000); Neutrophils Percent Auto 68.4 % (50-75); Platelet Count 367 X10^3/uL (150-400); Potassium 4.1 mmol/L (3.4-5.1); Red Blood Cell Count 4.52 X10^6/uL (4.0-5.2); Red Cell Distribution Width 21.1 % (11.6-14.8); Sodium 138 mmol/L (137-145); White Blood Cell Count 9.4 X10^3/uL (4.5-11.0)
[2020-09-12 20:29] LABS: NT-proBNP (BNP-Adult 18+) 23 pg/mL (<125)
--- NOTE | 2020-09-12 20:42 | PC.NURSE ---
pt ambulated to restroom with steady gait
[2020-09-12 20:44] LABS: Anisocytosis 1+
--- NOTE | 2020-09-12 21:38 | PC.NURSE ---
Pt is requesting something for anxiety and her RLS medication she left at home. Dr. De Jesus has given a verbal order for both
--- NOTE | 2020-09-12 21:39 | ED_ITS ---
HPI - SOB/Dyspnea General Chief Complaint: Shortness of Breath/Dyspnea Stated Complaint: sob similar to previous visits for hiatal hernia Time Seen by Provider: 09/12/20 19:26 Source: patient and EMS Mode of arrival: EMS History of Present Illness HPI Narrative: Patient is a 64-year-old female with a known history of a hiatal hernia presents with chief complaint of shortness of breath. She denies any pain is not dizzy nor weak or lightheaded. She denies any fever or chills. She has had no nausea, vomiting or diarrhea. She has been seen under multiple occasions and has a known, large hiatal hernia which likely will require surgica l repair. She has been seen recently including CAT scan of her chest for pulmonary embolism which was unremarkable. She states she has been taking all of her medications as directed Related Data Home Medications Medication Instructions Recorded Confirmed sennosides 8.6 mg tablet (senna) 17.2 mg PO BEDTIME PRN 09/20/18 06/18/20 potassium chloride 20 mEq 10 meq PO DAILY PRN 10/29/18 06/18/20 tablet,extended release levalbuterol tartrate 45 2 inhalation INHALATION BID gram 08/26/19 06/18/20 mcg/actuation aerosol inhaler (Xopenex HFA) diphenhydramine HCl 25 mg capsule 75 mg PO DAILY PRN 10/26/19 06/18/20 (Benadryl) omeprazole 40 mg capsule,delayed 40 mg PO BID 02/10/20 06/18/20 release lidocaine 5 % topical ointment 1 applic TOPICAL TID PRN 02/24/20 06/18/20 ketotifen fumarate 0.025 % (0.035 1 drp OPHTHALMIC (EYE) BID 03/02/20 06/18/20 %) eye drops (Zaditor) fluticasone propionate 50 1 spray INTRANASAL BID 04/02/20 06/18/20 mcg/actuation nasal spray,suspension gabapentin 600 mg tablet 600 mg PO QID tab 04/02/20 06/18/20 (Neurontin) garlic 600 mg capsule 1,200 mg PO DAILY 06/29/20 06/29/20 ondansetron 8 mg disintegrating 8 mg PO Q8H PRN 06/29/20 06/29/20 tablet oxycodone 5 mg tablet 5 mg PO QID PRN 06/29/20 06/29/20 Previous Rx's Medication Instructions Recorded levalbuterol HCl 0.63 mg/3 mL 0.63 mg INHALATION Q8H PRN #90 ml 09/11/19 solution for nebulization methocarbamol 750 mg tablet 750 mg PO TID PRN #90 tab 09/29/19 pramipexole 0.75 mg tablet 0.75 mg PO BEDTIME #90 tab 09/29/19 (Mirapex) epinephrine 0.3 mg/0.3 mL 0.3 mg IM ONCE PRN #1 ea 01/01/20 injection, auto-injector budesonide-formoterol HFA 80 2 puff INHALATION BID #10.2 gram 01/28/20 mcg-4.5 mcg/actuation aerosol inhaler (Symbicort) montelukast 10 mg tablet 10 mg PO BEDTIME PRN #90 tab 02/23/20 rizatriptan 10 mg tablet 10 mg PO .COMPLEX PRN #12 tab 02/23/20 sumatriptan succinate 100 mg tablet 100 mg PO ONCE PRN #14 tab 02/23/20 furosemide 40 mg tablet 40 mg PO DAILY PRN #30 tab 03/04/20 mirtazapine 7.5 mg tablet 7.5 mg PO BEDTIME #30 tab 04/02/20 promethazine 25 mg tablet 25 mg PO TID PRN #10 tab 05/13/20 Trintellix 20 mg tablet 20 mg PO DAILY #30 tab NS 06/18/20 (vortioxetine) diazepam 5 mg tablet 5 mg PO TID PRN #90 tab 09/10/20 Allergies Allergy/AdvReac Type Severity Reaction Status Date / Time Iodinated Contrast Media Allergy Severe Difficulty Verified 09/09/20 13:14 Breathing latex Allergy Severe Rash Verified 09/09/20 13:14 morphine [MORPHINE] Allergy Severe Anaphylaxis Verified 09/09/20 13:14 Penicillins [PENICILLINS] Allergy Severe Anaphylaxis Verified 09/09/20 13:14 Sulfa (Sulfonamide Allergy Severe RASH Verified 09/09/20 13:14 Antibiotics) [SULFA (SULFONAMIDE ANTIBIOTICS)] azithromycin Allergy Intermediate Rash Verified 09/09/20 13:14 [From ZITHROMAX Z-MARILYN] cefuroxime [From Ceftin] Allergy Intermediate Rash Verified 09/09/20 13:14 sulfamethoxazole Allergy Intermediate RASH Verified 09/09/20 13:14 [From SEPTRA] trimethoprim [From SEPTRA] Allergy Intermediate RASH Verified 09/09/20 13:14 ciprofloxacin [From Cipro] Allergy Pt does Verified 09/09/20 13:14 not remember reaction Corticosteroids Allergy Swelling Verified 09/09/20 13:14 (Glucocorticoids) of Lip/Tongue/Throat cephalexin [From Keflex] AdvReac Severe Fever, Verified 09/09/20 13:14 Asthma, Tachycardia prednisone AdvReac Severe nausea and Verified 09/09/20 13:14 feels very weak, and axious verapamil AdvReac Intermediate Asthma Verified 09/09/20 13:14 symptoms zonisamide AdvReac Intermediate Asthma Verified 09/09/20 13:14 symptoms Review of Systems Review of Systems Narrative: GENERAL: Denies chills, fatigue, malaise, fever, sweats. HEENT: Denies sinus pain, ear pain, sore throat, difficulty swallowing, dizziness. RESPIRATORY: See HPI CARDIOVASCULAR: Denies chest pain, palpitations, orthopnea, edema, GASTROINTESTINAL: Denies nausea, vomiting, abdominal pain, diarrhea, constipation, melena. : Denies dysuria, frequency, incontinence, hematuria, urinary retention. MUSCULOSKELETAL: denies weakness, joint pain, or bony pain SKIN: Denies rash, skin lesions, or other NEUROLOGIC: Denies weakness, headache, numbness, change in speech, confusion, seizures, incoordination. PSYCHIATRIC: No concerning psychosocial issues. 12 point review of systems is negative except for those stated above Patient History Medical History Anemia Anxiety Asthma Chronic back pain Chronic cough Depression Femur fracture, left Fibromyalgia Fractures GERD (gastroesophageal reflux disease) Hiatal hernia Recurrent sinusitis Venous insufficiency (chronic) (peripheral) Surgical History Anesthesia History of eye surgery (~1973) History of foot surgery History of hysterectomy (~1979) History of shoulder surgery (~2011) History of tonsillectomy (~1975) Hx of bilateral cataract extraction Family History Mother Heart disease Social History marital status: number of children: 1 household members: none lives independently: Yes caregiver/support person: Yes (3 afternoons per week) pets and animals: Yes occupational status: disabled Smoking Status: Never smoker alcohol intake: never substance use type: does not use Smoking Status: Never smoker alcohol intake frequency: holidays/special occasions only Substance Use Type: does not use Exam Narrative Exam Narrative: GENERAL: [64] year old patient appears stated age. Well- developed patient, in mild distress. Anxious HEAD: Atraumatic. Normocephalic. EYES: Pupils equal round and reactive. Extraocular motions intact. No scleral icterus. No injection or drainage. ENT: Nose without bleeding, purulent drainage. Throat without erythema, tonsi llar hypertrophy or exudate. Airway patent. NECK: Trachea midline. Non tender CARDIOVASCULAR: Regular rate and rhythm without murmurs, gallops, or rubs. RESPIRATORY: Clear to auscultation. Breath sounds equal bilaterally. No wheezes, rales, or rhonchi. GASTROINTESTINAL: Abdomen soft, non-tender, nondistended. EXTREMITIES: No edema or joint tenderness. BACK: Nontender without deformity or crepitance. No flank tenderness. NEURO: AOx3. SKIN: No rash or erythema of visible areas Initial Vital Signs Initial Vital Signs: Vital Signs Temperature 97.6 F 09/12/20 19:25 Pulse Rate 114 H 09/12/20 19:25 Respiratory Rate 33 H 09/12/20 19:25 Blood Pressure 118/86 09/12/20 19:25 Pulse Oximetry 97 09/12/20 19:25 Course Orders Ordered: Discontinued Medications Lorazepam (Lorazepam 2 Mg/Ml Inj) 0.5 mg IV NOW ONE Stop: 09/12/20 21:41 Last Admin: 09/12/20 21:59 Dose: 0.5 mg Documented by: GURWINDER Lorazepam (Lorazepam 2 Mg/Ml Inj) 0.5 mg IV NOW ONE Stop: 09/12/20 21:47 Last Admin: 09/12/20 21:59 Dose: Not Given Documented by: GURWINDER Pramipexole Dihydrochloride (Pramipexole 0.25 Mg Tablet) 0.75 mg PO NOW ONE Stop: 09/12/20 21:42 Last Admin: 09/12/20 21:59 Dose: 0.75 mg Documented by: GURWINDER Vital Signs Vital signs: Vital Signs - 8 hr 09/12/20 21:36 Pulse Rate 90 Respiratory Rate 20 Blood Pressure 146/65 H Pulse Oximetry 96 MDM - SOB/Dyspnea Lab Data Result diagrams: 09/12/20 19:30 09/12/20 19:30 Labs: Lab Results 09/12/20 09/12/20 09/12/20 Range/Units 19:30 19:30 19:30 WBC 9.4 (4.5-11.0) X10^3/uL RBC 4.52 (4.0-5.2) X10^6/uL Hgb 11.8 L (12.0-16.0) g/dL Hct 36.4 (36-46) % MCV 80.4 (80-100) fL MCH 26.1 (26-34) PG MCHC 32.4 (30-36) % RDW 21.1 H (11.6-14.8) % Plt Count 367 (150-400) X10^3/uL Neut % (Auto) 68.4 (50-75) % Lymph % (Auto) 24.8 L (25-40) % [place] % (Auto) 5.0 (3-14) % Eos % (Auto) 0.5 L (2-4) % Baso % (Auto) 1.3 (0-2) % Neut # (Auto) 6500 (4166-0076) /uL Lymph # (Auto) 2300 (5697-7168) /uL [place] # (Auto) 500 (0-900) /uL Eos # (Auto) 0 (0-450) /uL Baso # (Auto) 100 (0-100) /uL RBC Morphology See below Anisocytosis 1+ H Sodium 138 (137-145) mmol/L Potassium 4.1 (3.4-5.1) mmol/L Chloride 107 (98-107) mmol/L Carbon Dioxide 24 (22-32) mmol/L BUN 20 H (7-17) mg/dL Creatinine 1.04 (0.52-1.04) mg/dL Estimated GFR 53.2 L (>60) mL/min BUN/Creatinine Ratio 19.2 (6-22) Glucose 142 H (80-110) mg/dL Lactate 2.1 (0.7-2.1) mmol/L Calcium 9.6 (8.4-10.2) mg/dL Total Bilirubin 0.2 (0.2-1.3) mg/dL AST 31 (14-36) IU/L ALT 22 (<35) IU/L Alkaline Phosphatase 96 (38-126) U/L NT-Pro-B Natriuret Pep 23 (<125) pg/mL Total Protein 7.0 (6.3-8.2) g/dL Albumin 4.0 (3.5-5.0) g/dL Globulin 3.0 (1.7-4.1) g/dL Albumin/Globulin Ratio 1.3 (1.0-2.8) Imaging Data Chest x-ray: Radiologist's Impression: [address] [id number] ReportSigned Patient: Sheryl Lennon EMR#: [id number]: 5Acct:[id number]/Sex: 64 / FDate of Service: 09/12/20Loc: EDAccession Number: [id number] Procedure: XR chest 2V Ordering Provider: Gerson De Jesus D.O. PROCEDURE: XR CHEST 2V INDICATIONS: shortness of breath TECHNIQUE: 2 views of the chest were acquired. COMPARISON: [facility], CT, CT ANGIO CHEST PE PROTOCOL, 09/07/2020, 13:02. [facility], CR, XR CHEST 1V, 09/03/2020, 6:31. FINDINGS: Surgical changes and devices: Orthopedic artery is partially visualized in the left proximal humerus. Lungs and pleura: Diffuse interstitial prominence is again seen. No acute consolidation. No pleural effusion or pneumothorax. Retrocardiac density is compatible with a known moderate hiatal hernia. Mediastinum: Mediastinal contours are normal. Heart size is normal. Bones and chest wall: No suspicious bony abnormalities. Soft tissues appear unremarkable. IMPRESSION: Diffuse interstitial prominence is suspicious for mild pulmonary edema or atypical pneumonia. Dictated by: Cole Wells M.D. on 09/12/2020 at 20:31 Approved by: Cole Wells M.D. on 09/12/2020 at 20:34 [facility] Narrative Medical decision making narrative: Patient has recurrent visit for shortness of breath. She has a very reassuring history and physical exam. Vitals have been stable with no evidence of respiratory distress. Lungs are clear patient has had no fever. She is given reassurance, return precautions given and questions answered to her apparent satisfaction Discharge Plan Departure Patient Disposition: Home Clinical Impression: Chronic dyspnea, Esophageal hiatal hernia Instructions: Hiatal Hernia, DI for Shortness of Breath Activity Restrictions/Additional Instructions: *You have been diagnosed with [shortness of breath likely related to your hernia ] *What to do: *Please continue to take your regular medications as directed. [ ] New medication prescriptions sent to your pharmacy: [ ] [ ] New medication written as a paper prescription [x ] No new medications given *Please follow up with your primary care provider in 2-3 days, call for an appointment. Let them know you were seen in the Emergency Department and that we ask that you be seen in follow up. We will electronically transmit a record of today's note if your PCP is in our system *If you do not have a primary care provider please contact the [facility] Resource line at [phone]. They will ask some questions about your medical history and help get you set up with a doctor in the community. *Return to Emergency Department if you should have any new, worsening or concerning symptoms, such as [fever greater than 101 F, shaking chills, worsening pain, persistent vomiting or other bothersome symptoms] Prescriptions: No Action potassium chloride 20 mEq tablet extended release 10 meq PO DAILY PRN (Reason: Take w/lasix) RF: 0 fluticasone propionate 50 mcg/actuation spray,suspension 1 spray intranasal BID RF: 0 gabapentin [Neurontin] 600 mg tablet 600 mg PO QID RF: 0 mirtazapine 7.5 mg tablet 7.5 mg PO BEDTIME Qty: 30 RF: 2 Hold Instructions: not currently taking Trintellix 20 mg tablet 20 mg PO DAILY Qty: 30 RF: 3 diazepam 5 mg tablet 5 mg PO TID PRN (Reason: Anxiety) Qty: 90 RF: 0 levalbuterol HCl 0.63 mg/3 mL solution for nebulization 0.63 mg INHALATION Q8H PRN (Reason: shortness of breath or wheezing) Qty: 90 RF: 11 methocarbamol 750 mg tablet 750 mg PO TID PRN (Reason: Spasms) Qty: 90 RF: 3 pramipexole [Mirapex] 0.75 mg tablet 0.75 mg PO BEDTIME Qty: 90 RF: 3 epinephrine 0.3 mg/0.3 mL auto-injector 0.3 mg IM ONCE PRN (Reason: Allergic Reaction) Qty: 1 RF: 11 budesonide-formoterol [Symbicort] 80-4.5 mcg/actuation HFA aerosol inhaler 2 puff INHALATION BID Qty: 10.2 RF: 0 sumatriptan succinate 100 mg tablet 100 mg PO ONCE PRN (Reason: migraine headache) Qty: 14 RF: 3 montelukast 10 mg tablet 10 mg PO BEDTIME PRN (Reason: Allergy Symptoms) Qty: 90 RF: 3 rizatriptan 10 mg tablet 10 mg PO .COMPLEX PRN (Reason: migraine headache) Qty: 12 RF: 3 levalbuterol tartrate [Xopenex HFA] 45 mcg/actuation HFA aerosol inhaler 2 inhalation INHALATION BID RF: 0 lidocaine 5 % Ointment 1 applic TOPICAL TID PRN (Reason: pain) RF: 0 ketotifen fumarate [Zaditor] 0.025 % (0.035 %) Drops 1 drp OPHTHALMIC (EYE) BID RF: 0 furosemide 40 mg tablet 40 mg PO DAILY PRN (Reason: edema) Qty: 30 RF: 0 sennosides [senna] 8.6 mg Tablet 17.2 mg PO BEDTIME PRN (Reason: Constipation) RF: 0 diphenhydramine HCl [Benadryl] 25 mg Capsule 75 mg PO DAILY PRN (Reason: Allergy Symptoms) RF: 0 omeprazole 40 mg Capsule,Delayed Release(Dr/Ec) 40 mg PO BID RF: 0 ondansetron 8 mg Tablet,Disintegrating 8 mg PO Q8H PRN (Reason: Nausea) RF: 0 garlic 600 mg Capsule 1,200 mg PO DAILY RF: 0 oxycodone 5 mg Tablet 5 mg PO QID PRN (Reason: Pain (Scale Score 1-3)) RF: 0 promethazine 25 mg tablet 25 mg PO TID PRN (Reason: nausea and vomiting) Qty: 10 RF: 0 Referrals: Becky Rod PA-C [Primary Care Provider] -
[2020-09-12] MEDS: PRAMIPEXOLE 0.25 MG TABLET 0.75 MG PO (21:59)
[2020-09-12] MEDS: LORazepam 2 MG/ML INJ 0.5 MG IV (21:59)
[2020-09-12 22:10] LABS: Reflexed Lactate in 2 Hours Y
--- NOTE | 2020-09-13 13:49 | CM.SWNOTE ---
SENIOR SEARCH MARKETING ANALYST Follow up Note SENIOR SEARCH MARKETING ANALYST receives consult and calls patient after presentation to the ED on 09/12/20. SENIOR SEARCH MARKETING ANALYST contacts patient, she reports she is in pain. SENIOR SEARCH MARKETING ANALYST discusses assisting patient in setting up referral appt for hernia surgery. Patient endorses she has a consult appt with surgeon Dr. Louis at [facility] [place] at 2 pm (Ph. # [phone]). Patient endorses it will be difficult for her to get the appt because her daughter has cancer and her granddaughter is focusing on spending time with her. Patient endorses she would need to get herself to appt by herself. SENIOR SEARCH MARKETING ANALYST confirms that patient has Medicaid insurance. SENIOR SEARCH MARKETING ANALYST suggests calling [employer] transportation to get patient to appt. Patient indicates agreement and understanding and endorses that she is in pain and tired. SENIOR SEARCH MARKETING ANALYST offers to call to set up transportation for patient. SENIOR SEARCH MARKETING ANALYST calls [employer] to set up ride for patient. It is reported they will contact medical office of Dr. Louis and follow up with patient to set up ride. Plan:SENIOR SEARCH MARKETING ANALYST to follow up with patient later today to confirm that patient has been set up with transportation. RAMAKRISHNA Napier
== END 2020-09-12 22:19 | disposition home or self-care (01) ==
PROVIDERS: Emergency Provider Emergency Medicine; PCP Physician Assistant
DX: R06.00 Dyspnea, unspecified (principal); K44.9 Diaphragmatic hernia without obstruction or gangrene
CPT/HCPCS: 36415; 71046; 80053; 83605; 83880; 85025; 93005; 96374; 99284; J2060

== ENCOUNTER → 2020-10-06 08:19 | Outpatient (CLI) | payer OTHER, MEDICAID, SELFPAY ==
[2020-08-27 13:41] VITALS: BMI 35.4
--- NOTE | 2020-10-06 | DI.RAD.S_ITS ---
PROCEDURE: XR CHEST 2V INDICATIONS: COUGH TECHNIQUE: 2 views of the chest were acquired. COMPARISON: [facility], CR, XR CHEST 2V, 09/12/2020, 20:11. [facility], CR, XR CHEST 1V, 09/03/2020, 6:31. FINDINGS: Surgical changes and devices: None. Lungs and pleura: Lungs are clear except for a mild interstitial prominence bilaterally and what appears to be mild or early pneumonia at the medial right lower lobe. No pleural effusions or pneumothorax. Mediastinum: Mediastinal contours are normal. Heart size is normal. Bones and chest wall: No suspicious bony abnormalities. Soft tissues appear unremarkable. IMPRESSION: Medial right lower lobe pneumonia pattern, superimposed on a mild chronic interstitial prominence elsewhere. Dictated by: Gonzalez Dsouza M.D. on 10/06/2020 at 10:17 Approved by: Gonzalez Dsouza M.D. on 10/06/2020 at 10:18
== END ==
PROVIDERS: PCP Physician Assistant; Referring Provider Physician Assistant; Visit Provider Physician Assistant
DX: R05 Cough (principal)
CPT/HCPCS: 71046

== ENCOUNTER 2020-10-10 08:37 | Emergency (ER) | payer OTHER, MEDICAID, SELFPAY ==
[2020-08-27 13:41] VITALS: BMI 35.4
[2020-10-10 08:57] VITALS: BP 171/81; PULSE 92; RESP 24; TEMP 36.4; O2SAT 95; BMI 35.6
--- NOTE | 2020-10-10 08:57 | ED_ITS ---
HPI - SOB/Dyspnea General Chief Complaint: Shortness of Breath/Dyspnea Stated Complaint: Pneumonia Time Seen by Provider: 10/10/20 08:57 History of Present Illness HPI Narrative: Patient is a 64-year-old female is with history of hiatal hernia asthma frequent complaints and visits to the emergency department for shortness of breath presenting today for the same. She was started on Levaquin by her primary care provider 3 days ago after positive chest x-ray which showed right sided pneumonia. She Is having increasing shortness of breath and cough. She finished methylprednisolone about a week and half ago she said that she was feeling better on it. Related Data Home Medications Medication Instructions Recorded Confirmed sennosides 8.6 mg tablet (senna) 17.2 mg PO BEDTIME PRN 09/20/18 10/06/20 potassium chloride 20 mEq 10 meq PO DAILY PRN 10/29/18 10/06/20 tablet,extended release levalbuterol tartrate 45 2 inhalation INHALATION BID gram 08/26/19 10/06/20 mcg/actuation aerosol inhaler (Xopenex HFA) diphenhydramine HCl 25 mg capsule 75 mg PO DAILY PRN 10/26/19 10/06/20 (Benadryl) omeprazole 40 mg capsule,delayed 40 mg PO BID 02/10/20 10/06/20 release lidocaine 5 % topical ointment 1 applic TOPICAL TID PRN 02/24/20 10/06/20 ketotifen fumarate 0.025 % (0.035 1 drp OPHTHALMIC (EYE) BID 03/02/20 10/06/20 %) eye drops (Zaditor) fluticasone propionate 50 1 spray INTRANASAL BID 04/02/20 10/06/20 mcg/actuation nasal spray,suspension gabapentin 600 mg tablet 600 mg PO QID tab 04/02/20 10/06/20 (Neurontin) ondansetron 8 mg disintegrating 8 mg PO Q8H PRN 06/29/20 10/06/20 tablet oxycodone 5 mg tablet 5 mg PO QID PRN 06/29/20 10/06/20 Previous Rx's Medication Instructions Recorded levalbuterol HCl 0.63 mg/3 mL 0.63 mg INHALATION Q8H PRN #90 ml 09/11/19 solution for nebulization methocarbamol 750 mg tablet 750 mg PO TID PRN #90 tab 09/29/19 pramipexole 0.75 mg tablet 0.75 mg PO BEDTIME #90 tab 09/29/19 (Mirapex) epinephrine 0.3 mg/0.3 mL 0.3 mg IM ONCE PRN #1 ea 01/01/20 injection, auto-injector budesonide-formoterol HFA 80 2 puff INHALATION BID #10.2 gram 01/28/20 mcg-4.5 mcg/actuation aerosol inhaler (Symbicort) montelukast 10 mg tablet 10 mg PO BEDTIME PRN #90 tab 02/23/20 sumatriptan succinate 100 mg tablet 100 mg PO ONCE PRN #14 tab 02/23/20 furosemide 40 mg tablet 40 mg PO DAILY PRN #30 tab 03/04/20 diazepam 5 mg tablet 5 mg PO TID PRN #90 tab 09/10/20 mirtazapine 7.5 mg tablet 7.5 mg PO BEDTIME PRN #30 tab 09/20/20 Trintellix 20 mg tablet 20 mg PO DAILY #30 tab NS 09/28/20 (vortioxetine) quetiapine 25 mg tablet See Rx Instructions PO BID #30 tab 09/28/20 methylprednisolone 4 mg tablets in See Rx Instructions .ROUTE 10/10/20 a dose pack .COMPLEX #21 ea Allergies Allergy/AdvReac Type Severity Reaction Status Date / Time Iodinated Contrast Media Allergy Severe Difficulty Verified 09/28/20 14:05 Breathing latex Allergy Severe Rash Verified 09/28/20 14:05 morphine [MORPHINE] Allergy Severe Anaphylaxis Verified 09/28/20 14:05 Penicillins [PENICILLINS] Allergy Severe Anaphylaxis Verified 09/28/20 14:05 Sulfa (Sulfonamide Allergy Severe RASH Verified 09/28/20 14:05 Antibiotics) [SULFA (SULFONAMIDE ANTIBIOTICS)] azithromycin Allergy Intermediate Rash Verified 09/28/20 14:05 [From ZITHROMAX Z-MARILYN] cefuroxime [From Ceftin] Allergy Intermediate Rash Verified 09/28/20 14:05 sulfamethoxazole Allergy Intermediate RASH Verified 09/28/20 14:05 [From SEPTRA] trimethoprim [From SEPTRA] Allergy Intermediate RASH Verified 09/28/20 14:05 ciprofloxacin [From Cipro] Allergy Pt does Verified 09/28/20 14:05 not remember reaction Corticosteroids Allergy Swelling Verified 09/28/20 14:05 (Glucocorticoids) of Lip/Tongue/Throat cephalexin [From Keflex] AdvReac Severe Fever, Verified 09/28/20 14:05 Asthma, Tachycardia prednisone AdvReac Severe nausea and Verified 09/28/20 14:05 feels very weak, and axious verapamil AdvReac Intermediate Asthma Verified 09/28/20 14:05 symptoms zonisamide AdvReac Intermediate Asthma Verified 09/28/20 14:05 symptoms Review of Systems Review of Systems Narrative: GENERAL: Denies chills, fatigue, malaise, fever, sweats, travel HEENT: Denies sinus pain, ear pain, sore throat, difficulty swallowing, neck pain RESPIRATORY: See HPI CARDIOVASCULAR: Denies chest pain, palpitations, orthopnea, edema GASTROINTESTINAL: Denies nausea, vomiting, abdominal pain, diarrhea, constipation, melena. : Denies dysuria, frequency, incontinence, hematuria, urinary retention, flank pain. MUSCULOSKELETAL: Denies weakness, joint pain, or bony pain SKIN: No rash, no erythema, no pruritus NEUROLOGIC: Denies weakness, dizziness, headache, numbness, change in speech, confusion PSYCHIATRIC: No concerning psychosocial issues. 12 point review of systems is negative except for those stated above and HPI Patient History Medical History Anemia Anxiety Asthma Chronic back pain Chronic cough Depression Femur fracture, left Fibromyalgia Fractures GERD (gastroesophageal reflux disease) Hiatal hernia Recurrent sinusitis Venous insufficiency (chronic) (peripheral) Surgical History Anesthesia History of eye surgery (~1973) History of foot surgery History of hysterectomy (~1979) History of shoulder surgery (~2011) History of tonsillectomy (~1975) Hx of bilateral cataract extraction Family History Mother Heart disease Social History marital status: number of children: 1 household members: none lives independently: Yes caregiver/support person: Yes (3 afternoons per week) pets and animals: Yes occupational status: disabled Smoking Status: Never smoker alcohol intake: never substance use type: does not use Smoking Status: Never smoker alcohol intake frequency: holidays/special occasions only Substance Use Type: does not use Exam Initial Vital Signs Initial Vital Signs: Vital Signs Temperature 97.5 F L 10/10/20 08:57 Pulse Rate 92 H 10/10/20 08:57 Respiratory Rate 24 10/10/20 08:57 Blood Pressure 171/81 H 10/10/20 08:57 Pulse Oximetry 95 10/10/20 08:57 GENERAL: Alert 64-year-old female moving easily around the room and in no acute distress. HEENT: Head atraumatic,EOMI, pupils reactive, face symmetric, moist mucous membranes CARDIOVASCULAR: Regular rate and rhythm without murmurs, rubs or gallops. RESPIRATORY: Decreased breath sounds bilaterally slight wheezing ABDOMEN: Soft, nontender. Normoactive bowel sounds all 4 quadrants. No guardin g or rebound. EXTREMITIES: Normal range of motion, no clubbing or edema. Neurovascularly intact NEUROLOGICAL: Alert and oriented x4.Normal gait and speech. SKIN: Warm, dry, no laceration, no petechiae, no rashes or lesions. Course Orders Ordered: ED Orders 10/10/20 09:10 Complete Blood Count AUTO DIFF Stat Comprehensive Metabolic Panel Stat Lactate (Lactic Acid) Stat NT-proBNP (BNP-Adult 18+) Stat Troponin & CK Cardiac Panel Stat 10/10/20 09:18 XR chest 2V Stat Measure peak expiratory flow ONCE RT Consult Eval and Treat Now 10/10/20 09:35 EKG-12 Lead Stat 10/10/20 09:40 Blood Culture Stat 10/10/20 10:00 COVID19 -Nasal swab/Pre-Proc Stat Discontinued Medications Albuterol (Albuterol 2.5 Mg/3 Ml Neb (Adult)) 2.5 mg INH NOW ONE Stop: 10/10/20 09:48 Last Admin: 10/10/20 10:48 Dose: 2.5 mg Documented by: DALI Methylprednisolone (Methylprednisolone 125 Mg/2 Ml Vial) 125 mg IV NOW ONE Stop: 10/10/20 09:48 Last Admin: 10/10/20 09:51 Dose: 125 mg Documented by: ARCELIA Vital Signs Vital signs: Vital Signs - 8 hr 10/10/20 08:57 10/10/20 10:31 10/10/20 10:50 Temperature 97.5 F L Pulse Rate 92 H 78 72 Respiratory Rate 24 20 20 Blood Pressure 171/81 H 141/65 H Pulse Oximetry 95 98 95 MDM - SOB/Dyspnea Lab Data Result diagrams: 10/10/20 09:10 10/10/20 09:10 Labs: Lab Results 10/10/20 10/10/20 10/10/20 Range/Units 09:10 09:10 09:10 WBC 5.1 (4.5-11.0) X10^3/uL RBC 4.45 (4.0-5.2) X10^6/uL Hgb 11.9 L (12.0-16.0) g/dL Hct 37.0 (36-46) % MCV 83.0 (80-100) fL MCH 26.7 (26-34) PG MCHC 32.2 (30-36) % RDW 18.4 H (11.6-14.8) % Plt Count 274 (150-400) X10^3/uL Neut % (Auto) 54.6 (50-75) % Lymph % (Auto) 30.5 (25-40) % [place] % (Auto) 11.0 (3-14) % Eos % (Auto) 3.0 (2-4) % Baso % (Auto) 0.9 (0-2) % Neut # (Auto) 2800 (1405-9072) /uL Lymph # (Auto) 1600 (1737-1331) /uL [place] # (Auto) 600 (0-900) /uL Eos # (Auto) 200 (0-450) /uL Baso # (Auto) 0 (0-100) /uL Sodium 134 L (137-145) mmol/L Potassium 4.1 (3.4-5.1) mmol/L Chloride 102 (98-107) mmol/L Carbon Dioxide 28 (22-32) mmol/L BUN 14 (7-17) mg/dL Creatinine 0.76 (0.52-1.04) mg/dL Estimated GFR > 60.0 (>60) mL/min BUN/Creatinine Ratio 18.4 (6-22) Glucose 94 (80-110) mg/dL Lactate 1.1 (0.7-2.1) mmol/L Calcium 9.7 (8.4-10.2) mg/dL Total Bilirubin 0.3 (0.2-1.3) mg/dL AST 34 (14-36) IU/L ALT 22 (<35) IU/L Alkaline Phosphatase 90 (38-126) U/L Total Creatine Kinase (30-135) U/L CK-MB (CK-2) (<2.37) ng/mL CK-MB (CK-2) Rel Index (1.5-5.0) % Troponin I (0.01-0.034) ng/mL NT-Pro-B Natriuret Pep 67 (<125) pg/mL Total Protein 7.2 (6.3-8.2) g/dL Albumin 4.4 (3.5-5.0) g/dL Globulin 2.8 (1.7-4.1) g/dL Albumin/Globulin Ratio 1.6 (1.0-2.8) SARS-CoV-2 (PCR) (Negative) 10/10/20 10/10/20 Range/Units 09:10 10:00 WBC (4.5-11.0) X10^3/uL RBC (4.0-5.2) X10^6/uL Hgb (12.0-16.0) g/dL Hct (36-46) % MCV (80-100) fL MCH (26-34) PG MCHC (30-36) % RDW (11.6-14.8) % Plt Count (150-400) X10^3/uL Neut % (Auto) (50-75) % Lymph % (Auto) (25-40) % [place] % (Auto) (3-14) % Eos % (Auto) (2-4) % Baso % (Auto) (0-2) % Neut # (Auto) (5511-5669) /uL Lymph # (Auto) (8722-8980) /uL [place] # (Auto) (0-900) /uL Eos # (Auto) (0-450) /uL Baso # (Auto) (0-100) /uL Sodium (137-145) mmol/L Potassium (3.4-5.1) mmol/L Chloride (98-107) mmol/L Carbon Dioxide (22-32) mmol/L BUN (7-17) mg/dL Creatinine (0.52-1.04) mg/dL Estimated GFR (>60) mL/min BUN/Creatinine Ratio (6-22) Glucose (80-110) mg/dL Lactate (0.7-2.1) mmol/L Calcium (8.4-10.2) mg/dL Total Bilirubin (0.2-1.3) mg/dL AST (14-36) IU/L ALT (<35) IU/L Alkaline Phosphatase (38-126) U/L Total Creatine Kinase 211 H (30-135) U/L CK-MB (CK-2) 3.26 H (<2.37) ng/mL CK-MB (CK-2) Rel Index 1.5 (1.5-5.0) % Troponin I < 0.012 (0.01-0.034) ng/mL NT-Pro-B Natriuret Pep (<125) pg/mL Total Protein (6.3-8.2) g/dL Albumin (3.5-5.0) g/dL Globulin (1.7-4.1) g/dL Albumin/Globulin Ratio (1.0-2.8) SARS-CoV-2 (PCR) Negative (Negative) Imaging Data Chest x-ray: Radiologist's Impression: PROCEDURE: XR CHEST 2V INDICATIONS: shortness of breath TECHNIQUE: 2 views of the chest were acquired. COMPARISON: [facility], , XR CHEST 2V, 10/06/2020, 8:23. FINDINGS: Surgical changes and devices: None. Lungs and pleura: No focal consolidation. Pulmonary vascular congestion. No pleural effusion or pneumothorax. Mediastinum: Mild cardiomegaly. Bones and chest wall: No acute bony abnormality. Internal fixation hardware of the proximal left humerus is partially visualized. IMPRESSION: Pulmonary vascular congestion and mild cardiomegaly. Dictated by: Kieran Bryant M.D. on 10/10/2020 at 9:21 Approved by: Kieran Bryant M.D. on 10/10/2020 at 9:23 ECG Data Interpretation: Normal sinus rhythm rate 63 MS interval 152 QRS [address] changes MDM Narrative Medical decision making narrative: Patient has history of asthma frequent episodes of shortness of breath. She has been on 3 days of Levaquin started by her primary care provider. Blood work is overall reassuring no leukocytosis or signs of sepsis. X-ray does showed mild vascular congestion but BNP is within normal limits no prior history of congestive heart failure. Her symptoms improved significantly with albuterol. Most consistent with an asthma exacerbation. At this time recommend that she finish her Levaquin and start methylprednisolone again. Patient is not wanting to start methylprednisolone again she has an allergy to prednisone. So at this time I recommend she finish her antibiotics as previously prescribed. The is no signs or symptoms of severe sepsis. Along with close outpatient follow-up. She previously had a CT angio 09/07/2020 which did not show pulmonary embolism. I do not suspect PE at this time she improved actually before she got her albuterol her breathing improved. No sign of congestive heart failure BNP is within normal limits. She had echocardiograms in February of 2020 which showed an EF of 65-70%. Discharge Plan Departure Patient Disposition: Home Clinical Impression: Asthma exacerbation Qualifiers: Asthma severity: moderate Asthma persistence: unspecified Qualified Code(s): J45.901 - Unspecified asthma with (acute) exacerbation Instructions: DI for Asthma -- Adult Activity Restrictions/Additional Instructions: *You have been diagnosed with asthma exacerbation, pneumonia *What to do: At this time I recommend he finish her antibiotics as previously prescribed. Her x-ray from few days ago did show pneumonia but today are x-ray looks better. Blood work is overall reassuring. *Continue to take medications as directed Methylprednisolone Dosepak--> SENT TO [facility] *Follow up with your primary care provider in 2-3 days *Return to ER if you should have increasing shortness of breath, fever, chest pain or any new, worsening or concerning symptoms Prescriptions: New methylprednisolone 4 mg tablets,dose pack See Rx Instructions .ROUTE .COMPLEX Qty: 21 RF: 0 No Action Trintellix 20 mg tablet 20 mg PO DAILY Qty: 30 RF: 5 potassium chloride 20 mEq tablet extended release 10 meq PO DAILY PRN (Reason: Take w/lasix) RF: 0 fluticasone propionate 50 mcg/actuation spray,suspension 1 spray intranasal BID RF: 0 gabapentin [Neurontin] 600 mg tablet 600 mg PO QID RF: 0 diazepam 5 mg tablet 5 mg PO TID PRN (Reason: Anxiety) Qty: 90 RF: 0 levalbuterol HCl 0.63 mg/3 mL solution for nebulization 0.63 mg INHALATION Q8H PRN (Reason: shortness of breath or wheezing) Qty: 90 RF: 11 methocarbamol 750 mg tablet 750 mg PO TID PRN (Reason: Spasms) Qty: 90 RF: 3 pramipexole [Mirapex] 0.75 mg tablet 0.75 mg PO BEDTIME Qty: 90 RF: 3 epinephrine 0.3 mg/0.3 mL auto-injector 0.3 mg IM ONCE PRN (Reason: Allergic Reaction) Qty: 1 RF: 11 budesonide-formoterol [Symbicort] 80-4.5 mcg/actuation HFA aerosol inhaler 2 puff INHALATION BID Qty: 10.2 RF: 0 mirtazapine 7.5 mg tablet 7.5 mg PO BEDTIME PRN (Reason: sleep) Qty: 30 RF: 2 Hold Instructions: not currently taking quetiapine 25 mg tablet See Rx Instructions PO BID Qty: 30 RF: 0 sumatriptan succinate 100 mg tablet 100 mg PO ONCE PRN (Reason: migraine headache) Qty: 14 RF: 3 montelukast 10 mg tablet 10 mg PO BEDTIME PRN (Reason: Allergy Symptoms) Qty: 90 RF: 3 levalbuterol tartrate [Xopenex HFA] 45 mcg/actuation HFA aerosol inhaler 2 inhalation INHALATION BID RF: 0 lidocaine 5 % Ointment 1 applic TOPICAL TID PRN (Reason: pain) RF: 0 ketotifen fumarate [Zaditor] 0.025 % (0.035 %) Drops 1 drp OPHTHALMIC (EYE) BID RF: 0 furosemide 40 mg tablet 40 mg PO DAILY PRN (Reason: edema) Qty: 30 RF: 0 sennosides [senna] 8.6 mg Tablet 17.2 mg PO BEDTIME PRN (Reason: Constipation) RF: 0 diphenhydramine HCl [Benadryl] 25 mg Capsule 75 mg PO DAILY PRN (Reason: Allergy Symptoms) RF: 0 omeprazole 40 mg Capsule,Delayed Release(Dr/Ec) 40 mg PO BID RF: 0 ondansetron 8 mg Tablet,Disintegrating 8 mg PO Q8H PRN (Reason: Nausea) RF: 0 oxycodone 5 mg Tablet 5 mg PO QID PRN (Reason: Pain (Scale Score 1-3)) RF: 0 Referrals: Becky Rod PA-C [Primary Care Provider] -
--- NOTE | 2020-10-10 09:18 | DI.RAD.S_ITS ---
PROCEDURE: XR CHEST 2V INDICATIONS: shortness of breath TECHNIQUE: 2 views of the chest were acquired. COMPARISON: [facility], CR, XR CHEST 2V, 10/06/2020, 8:23. FINDINGS: Surgical changes and devices: None. Lungs and pleura: No focal consolidation. Pulmonary vascular congestion. No pleural effusion or pneumothorax. Mediastinum: Mild cardiomegaly. Bones and chest wall: No acute bony abnormality. Internal fixation hardware of the proximal left humerus is partially visualized. IMPRESSION: Pulmonary vascular congestion and mild cardiomegaly. Dictated by: Kieran Bryant M.D. on 10/10/2020 at 9:21 Approved by: Kieran Bryant M.D. on 10/10/2020 at 9:23
[2020-10-10 09:38] LABS: Add Manual Diff / Slide Review NO; Basophils Absolute Auto 0 /uL (0-100); Basophils Percent Auto 0.9 % (0-2); Eosinophils Absolute Auto 200 /uL (0-450); Hemoglobin 11.9 g/dL (12.0-16.0); Lymphocytes Absolute Auto 1600 /uL (1100-4500); Lymphocytes Percent Auto 30.5 % (25-40); Mean Corpuscular HGB Conc 32.2 % (30-36); Mean Corpuscular Hemoglobin 26.7 PG (26-34); Monocytes Absolute Auto 600 /uL (0-900); Neutrophils Absolute Auto 2800 /uL (1500-7000); Neutrophils Percent Auto 54.6 % (50-75); Platelet Count 274 X10^3/uL (150-400); Red Blood Cell Count 4.45 X10^6/uL (4.0-5.2); Red Cell Distribution Width 18.4 % (11.6-14.8); White Blood Cell Count 5.1 X10^3/uL (4.5-11.0)
[2020-10-10] MEDS: methylPREDNISolone 125 MG/2 ML VIAL IV (09:51)
[2020-10-10 09:53] LABS: Creatine Kinase 211 U/L (30-135)
[2020-10-10 09:54] LABS: Lactate (Lactic Acid) 1.1 mmol/L (0.7-2.1)
[2020-10-10 09:55] LABS: Alanine Aminotransferase 22 IU/L (<35); Albumin 4.4 g/dL (3.5-5.0); Albumin Globulin Ratio 1.6 (1.0-2.8); Alkaline Phosphatase 90 U/L (38-126); Aspartate Aminotransferase 34 IU/L (14-36); BUN Creatinine Ratio 18.4 (6-22); Bilirubin Total 0.3 mg/dL (0.2-1.3); Blood Urea Nitrogen 14 mg/dL (7-17); Calcium 9.7 mg/dL (8.4-10.2); Carbon Dioxide 28 mmol/L (22-32); Chloride 102 mmol/L (98-107); Estimated Glomerular Filt Rate > 60.0 mL/min (>60); Globulin 2.8 g/dL (1.7-4.1); Glucose 94 mg/dL (80-110); HEMOLYSIS < 15 (0-50); Potassium 4.1 mmol/L (3.4-5.1); Sodium 134 mmol/L (137-145); Total Protein 7.2 g/dL (6.3-8.2)
[2020-10-10 10:03] LABS: NT-proBNP (BNP-Adult 18+) 67 pg/mL (<125)
[2020-10-10 10:05] LABS: Troponin I < 0.012 ng/mL (0.01-0.034)
[2020-10-10 10:08] LABS: CKMB % Relative Index 1.5 % (1.5-5.0); Creatine Kinase MB 3.26 ng/mL (<2.37)
[2020-10-10 10:19] LABS: COVID19 -Nasal RAPID Negative (Negative)
[2020-10-10 10:31] VITALS: BP 141/65; PULSE 78; RESP 20; O2SAT 98
[2020-10-10] MEDS: ALBUTEROL 2.5 MG/3 ML NEB (ADULT) INH (10:48)
[2020-10-10 10:50] VITALS: PULSE 72; RESP 20; O2SAT 95
--- NOTE | 2020-10-10 11:00 | PC.NURSE ---
Pt independent and ambulatory, appearing with improved work of breathing and more energy compared to on arrival.
--- NOTE | 2020-10-19 16:03 | CM.SWNOTE ---
LICENSED HOME INSPECTOR F/U Note LICENSED HOME INSPECTOR receives phone call from previous patient ED LICENSED HOME INSPECTOR consult. Patient is 64 y/o female who presented to the ED on 10/10/20 with concern for pneumonia. Patient endorses that she followed up with PCP Becky Rod PA-C with the [facility] in [place], [place] on Sunday10/15/20. Patient endorses that she is having a difficult time scheduling her carpel tunnel surgery with [facility] and has been calling her PCP and the surgeon to schedule surgery. Patient endorses she was informed that her PCP needs to approve the surgery. LICENSED HOME INSPECTOR recommends that patient contact both the surgeon's office and PCP office again tomorrow if she does not hear back by the end of today's business day. Patient endorses she may seek out new PCP as well. Patient endorses she has upcoming hernia surgery. Patient endorses she recieves medicaid and SSDI and lives alone with a service dog. RAMAKRISNHA Napier
== END 2020-10-10 11:21 | disposition home or self-care (01) ==
PROVIDERS: Emergency Provider Emergency Medicine; PCP Physician Assistant
DX: J45.901 Unspecified asthma with (acute) exacerbation (principal); Z20.822 Contact with and (suspected) exposure to COVID-19
CPT/HCPCS: 36415; 71046; 80053; 82550; 82553; 83605; 83880; 84484; 85025; 87040; 87635; 93005; 94150; 94640; 96374; 99284; C9803; J2930; J7613

== ENCOUNTER → 2020-11-22 08:18 | Outpatient (CLI) | payer OTHER, MEDICAID, SELFPAY ==
[2020-08-27 13:41] VITALS: BMI 35.4
[2020-11-22 10:05] LABS: COVID19 -Nasal RAPID Negative (Negative)
== END ==
PROVIDERS: PCP Physician Assistant; Visit Provider Nurse Practitioner Family
DX: Z01.812 Encounter for preprocedural laboratory examination (principal); Z20.822 Contact with and (suspected) exposure to COVID-19
CPT/HCPCS: 87635

== ENCOUNTER 2020-11-22 14:53 | Day surgery (SDC) | payer OTHER, MEDICAID, SELFPAY ==
[2020-08-27 13:41] VITALS: BMI 35.4
[2020-11-16 08:37] VITALS: BMI 37.0
[2020-11-22] VITALS (7 sets, daily range): BP systolic 102–127; BP diastolic 59–88; PULSE 73–82; RESP 13–17; TEMP 36.1–36.8; O2SAT 96–99; BMI 37.0
--- NOTE | 2020-11-22 15:24 | PM.PREOP ---
Pre-operative Note COVID-19 COVID-19 status: Negative Result date/Date tested (Pos, Neg/Pending): 11/22/20 Interval Note History & Physical reviewed/Exam performed by Physician: Yes Changes to H&P: No
--- NOTE | 2020-11-22 15:25 | PM.OP.1 ---
Operative Date/Time/Diagnoses Date of procedure: 11/22/20 Pre-op diagnosis: Left carpal tunnel syndrome Post-op diagnosis: same Procedure & Clinicians Procedure: Left carpal tunnel release Same procedure as scheduled: Yes Indications: The patient has had progressively worsening left hand numbness and dysfunction. She has requested carpal tunnel release after discussion of the risks benefits and alternatives. Risks discussed included but were not limited to: Failure to improve pain or function, nerve damage, infection, wound dehiscence, stiffness, deep venous thrombosis, pulmonary embolism, stroke, myocardial infarction, aspiration pneumonia and . Surgeon: Saad Corbin Click Yes if Unassisted: Yes Operative Notes Findings: Compressed but not iatrogenically damaged median nerve. Closure Type: primary Specimen(s): none sent Estimated Blood Loss (mL): 0 Blood products transfused: none Tourniquet time (min): 20 Procedure in detail: The patient was seen in the preoperative area where she identified arm as the operative site and this was marked with my initials.. She was taken to the operating room and placed on the operating room table in supine position where she underwent the induction of an IV regional anesthetic after the administration of intravenous antibiotics. The left arm was prepared from the fingertips to the tourniquet and draped through sterile drapes. The area of the proposed incision was pinched with a forceps to confirm that she was not aware of the discomfort. An approximately 1 inch incision was then created between Queen's line and the wrist crease in line with the ring finger metacarpal. Subcutaneous tissues were carefully scissor dissected to the palmar fascia. This was split at the distal end of the carpal tunnel. The distal in the carpal tunnel was identified and a closed Rodriguez scissors was slid into the carpal tunnel and used as a nerve protector as a 15 scalpel blade was used to divide the palmar fascia and the transverse carpal ligament. The defect in the transverse carpal ligament was then carried into the distal forearm using a Metzenbaum scissors as a fascia tome with care being taken to direct the tips of the scissors to the ulnar side of the palmaris longus during this maneuver. The median nerve was inspected by placing a retractor in the proximal and the wound. There was no evidence of iatrogenic damage to the nerve. The wound was then closed with horizontal mattress sutures of 4-0 nylon. The wound was injected with plain Marcaine for postoperative pain control. A dressing of Xeroform, sterile 4x4s, sterile cast padding and an Francis wrap was applied and the patient was transferred to the recovery room in good condition having tolerated the procedure well. The tourniquet was deflated during dressing placement. Complications: none Post-operative Condition: stable Disposition: PACU Plan for aftercare: The patient will be discharged today. She will return to my office in 2 weeks for suture removal. She will be allowed to remove her dressing in 3 days and shower normally.
[2020-11-22] MEDS: LACTATED RINGERS 1,000 ML 42 ML IV (15:28)
[2020-11-22] MEDS: CLINDAMYCIN 600 MG/50 ML PIGGYBACK 50 MG IV (15:44)
--- NOTE | 2020-11-22 15:54 | SUR.OPER ---
Supine on padded OR bed, head on pillow, right arm secured on padded arm board at <90 degrees abduction, left arm on arm table under control of surgeon, legs uncrossed, safety belt at thigh, tape over blanket over lower legs.
[2020-11-22] MEDS: BUPIVACAINE 0.5% (PF) VIAL 30 ML INJ (15:59)
[2020-11-22] MEDS: HYDROMORPHONE 2 MG TABLET PO (16:23)
[2020-11-22] MEDS: diphenhydrAMINE 25 MG TABLET 50 MG PO (16:27)
== END 2020-11-22 17:05 | disposition home or self-care (01) ==
PROVIDERS: PCP Internal Medicine; Referring Provider Orthopaedic Surgery; Visit Provider Orthopaedic Surgery
PROC: (CPT 64721; principal; 2020-11-22 16:00)
DX: G56.02 Carpal tunnel syndrome, left upper limb (principal); E66.9 Obesity, unspecified; J45.909 Unspecified asthma, uncomplicated; M79.7 Fibromyalgia; Z68.37 Body mass index [BMI] 37.0-37.9, adult; Z20.822 Contact with and (suspected) exposure to COVID-19; Z01.812 Encounter for preprocedural laboratory examination
CPT/HCPCS: 64721; 87635; C9803; J2250; J2704; J3010

== ENCOUNTER → 2020-12-06 11:37 | Outpatient (CLI) | payer OTHER, MEDICAID, SELFPAY ==
[2020-08-27 13:41] VITALS: BMI 35.4
--- NOTE | 2020-12-06 | DI.RAD.S_ITS ---
PROCEDURE: XR CHEST 2V INDICATIONS: CAP TECHNIQUE: 2 views of the chest were acquired. COMPARISON: [facility], , XR CHEST 2V, 10/10/2020, 9:17. FINDINGS: Surgical changes and devices: Redemonstrated fixation hardware of the left humerus. Lungs and pleura: Lungs are clear. No pleural effusions or pneumothorax. Mediastinum: Mediastinal contours are normal. Heart size is normal. Bones and chest wall: No suspicious bony abnormalities. Soft tissues appear unremarkable. IMPRESSION: No acute cardiopulmonary abnormality. Dictated by: Chepe Chahal M.D. on 12/06/2020 at 12:19 Approved by: Chepe Chahal M.D. on 12/06/2020 at 12:20
== END ==
PROVIDERS: PCP Internal Medicine; Referring Provider Internal Medicine; Visit Provider Internal Medicine
DX: J18.9 Pneumonia, unspecified organism (principal)
CPT/HCPCS: 71046

== ENCOUNTER 2020-12-09 16:48 | Emergency (ER) | payer OTHER, MEDICAID, SELFPAY ==
[2020-08-27 13:41] VITALS: BMI 35.4
[2020-12-09] VITALS (12 sets, daily range): BP systolic 140–167; BP diastolic 64–109; PULSE 62–106; RESP 15–50; TEMP 36.1; O2SAT 86–98; BMI 37.2
--- NOTE | 2020-12-09 17:05 | DI.RAD.S_ITS ---
PROCEDURE: XR CHEST 2V INDICATIONS: shortness of breath TECHNIQUE: 2 views of the chest were acquired. COMPARISON: [facility], , XR CHEST 2V, 12/06/2020, 11:56. FINDINGS: Surgical changes and devices: Lower cervical spine low-profile instrumentation noted. Lungs and pleura: Lungs are clear. No pleural effusions or pneumothorax. Mediastinum: Mediastinal contours are normal. Heart size is enlarged. Mild vascular congestion noted.. Moderate hiatal hernia Bones and chest wall: No suspicious bony abnormalities. Soft tissues appear unremarkable. IMPRESSION: Cardiomegaly and mild vascular congestion Moderate hiatal hernia Approved by: Carlton Ashley M.D. on 12/09/2020 at 16:47
--- NOTE | 2020-12-09 19:06 | PC.NURSE ---
Patient did not want to answer most of assessment questions and told this RN to look it up. Notified provider.
[2020-12-09 19:12] LABS: Add Manual Diff / Slide Review NO; Basophils Absolute Auto 100 /uL (0-100); Basophils Percent Auto 1.1 % (0-2); Eosinophils Absolute Auto 100 /uL (0-450); Eosinophils Percent Auto 0.8 % (2-4); Hematocrit 35.3 % (36-46); Hemoglobin 11.7 g/dL (12.0-16.0); Lymphocytes Absolute Auto 1700 /uL (1100-4500); Lymphocytes Percent Auto 25.5 % (25-40); Mean Corpuscular HGB Conc 33.1 % (30-36); Mean Corpuscular Hemoglobin 28.4 PG (26-34); Mean Corpuscular Volume 85.9 fL (80-100); Monocytes Absolute Auto 600 /uL (0-900); Monocytes Percent Auto 8.3 % (3-14); Neutrophils Absolute Auto 4400 /uL (1500-7000); Neutrophils Percent Auto 64.3 % (50-75); Platelet Count 290 X10^3/uL (150-400); Red Blood Cell Count 4.12 X10^6/uL (4.0-5.2); Red Cell Distribution Width 16.2 % (11.6-14.8); White Blood Cell Count 6.8 X10^3/uL (4.5-11.0)
--- NOTE | 2020-12-09 19:23 | ED.SOB ---
HPI - SOB/Dyspnea <Darwin Guaman PA-C - Last Filed: 12/09/20 20:18> General Chief Complaint: Shortness of Breath/Dyspnea Stated Complaint: pneumonia,[facility] sent, Time Seen by Provider: 12/09/20 19:03 Source: patient Mode of arrival: Family Vehicle Limitations: no limitations History of Present Illness HPI Narrative: Patient is a 65-year-old female presenting to the emergency department today for evaluation of shortness of breath. Patient states that she was diagnosed with pneumonia approximately 1 month ago and was provided a prescription for a 5 day course of Levaquin but she states that the antibiotics did not work. She is currently taking doxycycline and she notes that she is currently on her 4th or 5th day of treatment. Patient states that her shortness of breath has worsened over the last 2 days with associated weakness, headache, and diarrhea. Patient denies abdominal pain, nausea, vomiting, dysuria, chest pain, sore throat, nasal congestion. No other complaints reported at this time. Related Data Home Medications Medication Instructions Recorded Confirmed sennosides 8.6 mg tablet (senna) 17.2 mg PO BEDTIME PRN 09/20/18 11/24/20 potassium chloride 20 mEq 10 meq PO DAILY PRN 10/29/18 11/16/20 tablet,extended release levalbuterol tartrate 45 2 inhalation INHALATION BID gram 08/26/19 11/24/20 mcg/actuation aerosol inhaler (Xopenex HFA) diphenhydramine HCl 25 mg capsule 75 mg PO DAILY PRN 10/26/19 11/24/20 (Benadryl) omeprazole 40 mg capsule,delayed 40 mg PO BID 02/10/20 11/24/20 release lidocaine 5 % topical ointment 1 applic TOPICAL TID PRN 02/24/20 11/24/20 ketotifen fumarate 0.025 % (0.035 1 drp OPHTHALMIC (EYE) BID 03/02/20 11/24/20 %) eye drops (Zaditor) fluticasone propionate 50 1 spray INTRANASAL BID 04/02/20 11/24/20 mcg/actuation nasal spray,suspension gabapentin 600 mg tablet 600 mg PO QID tab 04/02/20 11/24/20 (Neurontin) ondansetron 8 mg disintegrating 8 mg PO Q8H PRN 06/29/20 11/24/20 tablet oxycodone 5 mg tablet 5 mg PO QID PRN 06/29/20 11/16/20 Previous Rx's Medication Instructions Recorded levalbuterol HCl 0.63 mg/3 mL 0.63 mg INHALATION Q8H PRN #90 ml 09/11/19 solution for nebulization methocarbamol 750 mg tablet 750 mg PO TID PRN #90 tab 09/29/19 epinephrine 0.3 mg/0.3 mL 0.3 mg IM ONCE PRN #1 ea 01/01/20 injection, auto-injector budesonide-formoterol HFA 80 2 puff INHALATION BID #10.2 gram 01/28/20 mcg-4.5 mcg/actuation aerosol inhaler (Symbicort) montelukast 10 mg tablet 10 mg PO BEDTIME PRN #90 tab 02/23/20 sumatriptan succinate 100 mg tablet 100 mg PO ONCE PRN #14 tab 02/23/20 furosemide 40 mg tablet 40 mg PO DAILY PRN #30 tab 03/04/20 diazepam 5 mg tablet 5 mg PO TID PRN #90 tab 09/10/20 Trintellix 20 mg tablet 20 mg PO DAILY #30 tab NS 09/28/20 (vortioxetine) methylprednisolone 4 mg tablets in See Rx Instructions .ROUTE 10/10/20 a dose pack .COMPLEX #21 ea quetiapine 25 mg tablet See Rx Instructions PO BID #30 tab 10/27/20 hydromorphone 2 mg tablet 2 mg PO Q4HR PRN #10 tab 11/22/20 mirtazapine 7.5 mg tablet 7.5 mg PO BEDTIME PRN #30 tab 11/24/20 Allergies Allergy/AdvReac Type Severity Reaction Status Date / Time Iodinated Contrast Media Allergy Severe Difficulty Verified 09/28/20 14:05 Breathing latex Allergy Severe Rash Verified 09/28/20 14:05 morphine [MORPHINE] Allergy Severe Anaphylaxis Verified 09/28/20 14:05 Penicillins [PENICILLINS] Allergy Severe Anaphylaxis Verified 09/28/20 14:05 Sulfa (Sulfonamide Allergy Severe RASH Verified 09/28/20 14:05 Antibiotics) [SULFA (SULFONAMIDE ANTIBIOTICS)] azithromycin Allergy Intermediate Rash Verified 09/28/20 14:05 [From ZITHROMAX Z-MARILYN] cefuroxime [From Ceftin] Allergy Intermediate Rash Verified 09/28/20 14:05 sulfamethoxazole Allergy Intermediate RASH Verified 09/28/20 14:05 [From SEPTRA] trimethoprim [From SEPTRA] Allergy Intermediate RASH Verified 09/28/20 14:05 ciprofloxacin [From Cipro] Allergy Pt does Verified 09/28/20 14:05 not remember reaction Corticosteroids Allergy Swelling Verified 09/28/20 14:05 (Glucocorticoids) of Lip/Tongue/Throat cephalexin [From Keflex] AdvReac Severe Fever, Verified 09/28/20 14:05 Asthma, Tachycardia prednisone AdvReac Severe nausea and Verified 09/28/20 14:05 feels very weak, and axious verapamil AdvReac Intermediate Asthma Verified 09/28/20 14:05 symptoms zonisamide AdvReac Intermediate Asthma Verified 09/28/20 14:05 symptoms Review of Systems <Darwin Guaman PA-C - Last Filed: 12/09/20 20:18> Constitutional Constitutional: Denies chills, Reports fever(s) (Low-grade), Denies lethargy and Reports weakness ENT Ears, Nose, Mouth, and Throat: Denies change in voice, Denies neck pain, Denies sore throat and Denies throat swelling Cardiovascular Cardiovascular: Denies chest pain, Denies irregular heart rhythm, Denies lightheadedness, Denies palpitations and Reports dyspnea Respiratory Respiratory: Denies cough, Reports dyspnea and Denies wheezing Gastrointestinal Gastrointestinal: Denies abdominal pain, Denies change in bowel habits, Reports diarrhea, Denies nausea and Denies vomiting Musculoskeletal Musculoskeletal: Denies neck pain Neurologic Neurologic: Reports weakness Endocrine Endocrine: Denies palpitations Allergic/Immunologic Allergic/Immunologic: Denies urticaria, Denies throat swelling and Denies wheezing Patient History <Darwin Guaman PA-C - Last Filed: 12/09/20 20:18> Medical History Anemia Anxiety Asthma Chronic back pain Chronic cough Depression Femur fracture, left Fibromyalgia Fractures GERD (gastroesophageal reflux disease) Hiatal hernia Recurrent sinusitis Venous insufficiency (chronic) (peripheral) Surgical History Anesthesia History of eye surgery (~1973) History of foot surgery History of hysterectomy (~1979) History of shoulder surgery (~2011) History of tonsillectomy (~1975) Hx of bilateral cataract extraction Family History Mother Heart disease Social History marital status: number of children: 1 household members: none lives independently: Yes caregiver/support person: Yes (3 afternoons per week) pets and animals: Yes occupational status: disabled Smoking Status: Never smoker alcohol intake: never substance use type: does not use Smoking Status: Never smoker alcohol intake frequency: holidays/special occasions only Substance Use Type: does not use Exam <Darwin Guaman PA-C - Last Filed: 12/09/20 20:18> Narrative Exam Narrative: GENERAL: 65 year old patient appears stated age. Well-developed patient, in mild distress. HEAD: Atraumatic. Normocephalic. EYES: Pupils equal round and reactive. Extraocular motions intact. No scleral icterus. No injection or drainage. ENT: Nose without bleeding, purulent drainage. Throat without erythema, tonsillar hypertrophy or exudate. Airway patent. NECK: Trachea midline. Non tender CARDIOVASCULAR: Regular rate and rhythm without murmurs, gallops, or rubs. RESPIRATORY: Wheezing and scattered crackles auscultated. Breath sounds equal bilaterally. GASTROINTESTINAL: Abdomen soft, non-tender, nondistended. EXTREMITIES: No edema or joint tenderness. BACK: Nontender without deformity or crepitance. No flank tenderness. NEURO: AOx3. SKIN: No rash or erythema of visible areas Initial Vital Signs Initial Vital Signs: Vital Signs Temperature 97.0 F L 12/09/20 17:05 Pulse Rate 92 H 12/09/20 17:05 Respiratory Rate 36 H 12/09/20 17:05 Blood Pressure 148/73 H 12/09/20 17:05 Pulse Oximetry 96 12/09/20 17:05 <Allyssa Limon DO - Last Filed: 12/18/20 07:27> Initial Vital Signs Initial Vital Signs: Vital Signs Temperature 97.0 F L 12/09/20 17:05 Pulse Rate 92 H 12/09/20 17:05 Respiratory Rate 36 H 12/09/20 17:05 Blood Pressure 148/73 H 12/09/20 17:05 Pulse Oximetry 96 12/09/20 17:05 Course <Darwin Guaman PA-C - Last Filed: 12/09/20 20:18> Course Course Narrative: Patient is a 65-year-old female presenting to the emergency department today for evaluation of shortness of breath. Chest x-ray ordered. Orders Ordered: Discontinued Medications Albuterol/Ipratropium (Albuterol/Ipratropium 3 Ml Ampul) 3 ml INH Q1H PRN PRN Reason: Shortness Of Breath Last Admin: 12/09/20 20:15 Dose: 3 ml Documented by: BFOX Vital Signs Vital signs: Vital Signs - 8 hr 12/09/20 17:05 Temperature 97.0 F L Pulse Rate 92 H Respiratory Rate 36 H Blood Pressure 148/73 H Pulse Oximetry 96 <Allyssa Limon DO - Last Filed: 12/18/20 07:27> Orders Ordered: Discontinued Medications Albuterol/Ipratropium (Albuterol/Ipratropium 3 Ml Ampul) 3 ml INH Q1H PRN PRN Reason: Shortness Of Breath Last Admin: 12/09/20 20:15 Dose: 3 ml Documented by: BFOX Vital Signs Vital signs: Vital Signs - 8 hr 12/09/20 17:05 Temperature 97.0 F L Pulse Rate 92 H Respiratory Rate 36 H Blood Pressure 148/73 H Pulse Oximetry 96 MDM - SOB/Dyspnea <Darwin Guaman PA-C - Last Filed: 12/09/20 20:18> Lab Data Result diagrams: 12/09/20 18:58 12/09/20 18:58 Labs: Lab Results 12/09/20 12/09/20 12/09/20 Range/Units 18:58 18:58 18:58 WBC 6.8 (4.5-11.0) X10^3/uL RBC 4.12 (4.0-5.2) X10^6/uL Hgb 11.7 L (12.0-16.0) g/dL Hct 35.3 L (36-46) % MCV 85.9 (80-100) fL MCH 28.4 (26-34) PG MCHC 33.1 (30-36) % RDW 16.2 H (11.6-14.8) % Plt Count 290 (150-400) X10^3/uL Neut % (Auto) 64.3 (50-75) % Lymph % (Auto) 25.5 (25-40) % Giles % (Auto) 8.3 (3-14) % Eos % (Auto) 0.8 L (2-4) % Baso % (Auto) 1.1 (0-2) % Neut # (Auto) 4400 (7121-4689) /uL Lymph # (Auto) 1700 (5664-6159) /uL Giles # (Auto) 600 (0-900) /uL Eos # (Auto) 100 (0-450) /uL Baso # (Auto) 100 (0-100) /uL Sodium 139 (137-145) mmol/L Potassium 3.8 (3.4-5.1) mmol/L Chloride 102 (98-107) mmol/L Carbon Dioxide 33 H (22-32) mmol/L BUN 23 H (7-17) mg/dL Creatinine 0.98 (0.52-1.04) mg/dL Estimated GFR 56.8 L (>60) mL/min BUN/Creatinine Ratio 23.5 H (6-22) Glucose 90 (80-110) mg/dL Lactate 0.8 (0.7-2.1) mmol/L Calcium 10.1 (8.4-10.2) mg/dL Total Bilirubin 0.3 (0.2-1.3) mg/dL AST 30 (14-36) IU/L ALT 24 (<35) IU/L Alkaline Phosphatase 86 (38-126) U/L Total Creatine Kinase (30-135) U/L CK-MB (CK-2) (<2.37) ng/mL CK-MB (CK-2) Rel Index (1.5-5.0) % Troponin I (0.01-0.034) ng/mL NT-Pro-B Natriuret Pep (<125) pg/mL Total Protein 7.1 (6.3-8.2) g/dL Albumin 4.3 (3.5-5.0) g/dL Globulin 2.8 (1.7-4.1) g/dL Albumin/Globulin Ratio 1.5 (1.0-2.8) SARS-CoV-2 (PCR) (Negative) 12/09/20 12/09/20 Range/Units 18:58 18:58 WBC (4.5-11.0) X10^3/uL RBC (4.0-5.2) X10^6/uL Hgb (12.0-16.0) g/dL Hct (36-46) % MCV (80-100) fL MCH (26-34) PG MCHC (30-36) % RDW (11.6-14.8) % Plt Count (150-400) X10^3/uL Neut % (Auto) (50-75) % Lymph % (Auto) (25-40) % Giles % (Auto) (3-14) % Eos % (Auto) (2-4) % Baso % (Auto) (0-2) % Neut # (Auto) (0323-0720) /uL Lymph # (Auto) (2568-4024) /uL Giles # (Auto) (0-900) /uL Eos # (Auto) (0-450) /uL Baso # (Auto) (0-100) /uL Sodium (137-145) mmol/L Potassium (3.4-5.1) mmol/L Chloride (98-107) mmol/L Carbon Dioxide (22-32) mmol/L BUN (7-17) mg/dL Creatinine (0.52-1.04) mg/dL Estimated GFR (>60) mL/min BUN/Creatinine Ratio (6-22) Glucose (80-110) mg/dL Lactate (0.7-2.1) mmol/L Calcium (8.4-10.2) mg/dL Total Bilirubin (0.2-1.3) mg/dL AST (14-36) IU/L ALT (<35) IU/L Alkaline Phosphatase (38-126) U/L Total Creatine Kinase 167 H (30-135) U/L CK-MB (CK-2) 3.46 H (<2.37) ng/mL CK-MB (CK-2) Rel Index 2.1 (1.5-5.0) % Troponin I < 0.012 (0.01-0.034) ng/mL NT-Pro-B Natriuret Pep 66 (<125) pg/mL Total Protein (6.3-8.2) g/dL Albumin (3.5-5.0) g/dL Globulin (1.7-4.1) g/dL Albumin/Globulin Ratio (1.0-2.8) SARS-CoV-2 (PCR) Negative (Negative) Imaging Data Chest x-ray: Radiologist's Impression: PROCEDURE:? XR CHEST 2V ? INDICATIONS:? shortness of breath ? TECHNIQUE:? 2 views of the chest were acquired.? ? COMPARISON:? [facility], CR, XR CHEST 2V, 12/06/2020, 11:56. ? FINDINGS:? ? Surgical changes and devices:? Lower cervical spine low-profile instrumentation noted. ? Lungs and pleura:? Lungs are clear.? No pleural effusions or pneumothorax.? ? Mediastinum:? Mediastinal contours are normal.? Heart size is enlarged.? Mild vascular congestion noted..? Moderate hiatal hernia ? Bones and chest wall:? No suspicious bony abnormalities.? Soft tissues appear unremarkable.? ? IMPRESSION:? ? Cardiomegaly and mild vascular congestion Moderate hiatal hernia ? ? ? Approved by: Carlton Ashley M.D. on 12/09/2020 at 16:47? [facility] Narrative Medical decision making narrative: Patient is a 65-year-old female presenting to the emergency department today for evaluation of shortness of breath. To consider pneumonia versus congestive heart failure versus versus COVID-19 versus upper respiratory infection. Chest x-ray ordered showed cardiomegaly and mild vascular congestion, no infiltrates reported in the lung aquino. COVID test resulted negative, patient administered nebulizer treatment. Physical examination overall reassuring. Discussed strict return precautions with the patient prior to discharge. Patient has been instructed to follow-up with her primary care doctor within the next 24-48 hours. <Allyssa Limon, DO - Last Filed: 12/18/20 07:27> Lab Data Labs: Lab Results 12/09/20 12/09/20 12/09/20 Range/Units 18:58 18:58 18:58 WBC 6.8 (4.5-11.0) X10^3/uL RBC 4.12 (4.0-5.2) X10^6/uL Hgb 11.7 L (12.0-16.0) g/dL Hct 35.3 L (36-46) % MCV 85.9 (80-100) fL MCH 28.4 (26-34) PG MCHC 33.1 (30-36) % RDW 16.2 H (11.6-14.8) % Plt Count 290 (150-400) X10^3/uL Neut % (Auto) 64.3 (50-75) % Lymph % (Auto) 25.5 (25-40) % Giles % (Auto) 8.3 (3-14) % Eos % (Auto) 0.8 L (2-4) % Baso % (Auto) 1.1 (0-2) % Neut # (Auto) 4400 (7910-5021) /uL Lymph # (Auto) 1700 (2837-0714) /uL Giles # (Auto) 600 (0-900) /uL Eos # (Auto) 100 (0-450) /uL Baso # (Auto) 100 (0-100) /uL Sodium 139 (137-145) mmol/L Potassium 3.8 (3.4-5.1) mmol/L Chloride 102 (98-107) mmol/L Carbon Dioxide 33 H (22-32) mmol/L BUN 23 H (7-17) mg/dL Creatinine 0.98 (0.52-1.04) mg/dL Estimated GFR 56.8 L (>60) mL/min BUN/Creatinine Ratio 23.5 H (6-22) Glucose 90 (80-110) mg/dL Lactate 0.8 (0.7-2.1) mmol/L Calcium 10.1 (8.4-10.2) mg/dL Total Bilirubin 0.3 (0.2-1.3) mg/dL AST 30 (14-36) IU/L ALT 24 (<35) IU/L Alkaline Phosphatase 86 (38-126) U/L Total Creatine Kinase (30-135) U/L CK-MB (CK-2) (<2.37) ng/mL CK-MB (CK-2) Rel Index (1.5-5.0) % Troponin I (0.01-0.034) ng/mL NT-Pro-B Natriuret Pep (<125) pg/mL Total Protein 7.1 (6.3-8.2) g/dL Albumin 4.3 (3.5-5.0) g/dL Globulin 2.8 (1.7-4.1) g/dL Albumin/Globulin Ratio 1.5 (1.0-2.8) SARS-CoV-2 (PCR) (Negative) 12/09/20 12/09/20 Range/Units 18:58 18:58 WBC (4.5-11.0) X10^3/uL RBC (4.0-5.2) X10^6/uL Hgb (12.0-16.0) g/dL Hct (36-46) % MCV (80-100) fL MCH (26-34) PG MCHC (30-36) % RDW (11.6-14.8) % Plt Count (150-400) X10^3/uL Neut % (Auto) (50-75) % Lymph % (Auto) (25-40) % Giles % (Auto) (3-14) % Eos % (Auto) (2-4) % Baso % (Auto) (0-2) % Neut # (Auto) (0339-2177) /uL Lymph # (Auto) (0680-1340) /uL Giles # (Auto) (0-900) /uL Eos # (Auto) (0-450) /uL Baso # (Auto) (0-100) /uL Sodium (137-145) mmol/L Potassium (3.4-5.1) mmol/L Chloride (98-107) mmol/L Carbon Dioxide (22-32) mmol/L BUN (7-17) mg/dL Creatinine (0.52-1.04) mg/dL Estimated GFR (>60) mL/min BUN/Creatinine Ratio (6-22) Glucose (80-110) mg/dL Lactate (0.7-2.1) mmol/L Calcium (8.4-10.2) mg/dL Total Bilirubin (0.2-1.3) mg/dL AST (14-36) IU/L ALT (<35) IU/L Alkaline Phosphatase (38-126) U/L Total Creatine Kinase 167 H (30-135) U/L CK-MB (CK-2) 3.46 H (<2.37) ng/mL CK-MB (CK-2) Rel Index 2.1 (1.5-5.0) % Troponin I < 0.012 (0.01-0.034) ng/mL NT-Pro-B Natriuret Pep 66 (<125) pg/mL Total Protein (6.3-8.2) g/dL Albumin (3.5-5.0) g/dL Globulin (1.7-4.1) g/dL Albumin/Globulin Ratio (1.0-2.8) SARS-CoV-2 (PCR) Negative (Negative) ECG Data Interpretation: CHELO sinus rhythm rate 60 p.r. interval 170 QRS 84 QTC 433 mild artifact noted no ST changes similar to previous EKG Discharge Plan Departure Patient Disposition: Home Clinical Impression: Acute dyspnea Instructions: DI for Cough -- Adult Activity Restrictions/Additional Instructions: *You have been diagnosed with acute dyspnea *What to do: *Please continue to take your regular medications as directed. [ ] New medication prescriptions sent to your pharmacy: [ ] [ ] New medication written as a paper prescription [X] No new medications given *Please follow up with your primary care provider in 2-3 days, call for an appointment. Let them know you were seen in the Emergency Department and that we ask that you be seen in follow up. We will electronically transmit a record of today's note if your PCP is in our system *If you do not have a primary care provider please contact the [facility] Resource line at [phone]. They will ask some questions about your medical history and help get you set up with a doctor in the community. *Return to Emergency Department if you should have any new, worsening or concerning symptoms, such as fever greater than 101 F, shaking chills, worsening cough, worsening shortness of breath, persistent vomiting or other bothersome symptoms. Prescriptions: No Action Trintellix 20 mg tablet 20 mg PO DAILY Qty: 30 RF: 5 mirtazapine 7.5 mg tablet 7.5 mg PO BEDTIME PRN (Reason: sleep) Qty: 30 RF: 2 Hold Instructions: not currently taking potassium chloride 20 mEq tablet extended release 10 meq PO DAILY PRN (Reason: Take w/lasix) RF: 0 fluticasone propionate 50 mcg/actuation spray,suspension 1 spray intranasal BID RF: 0 gabapentin [Neurontin] 600 mg tablet 600 mg PO QID RF: 0 diazepam 5 mg tablet 5 mg PO TID PRN (Reason: Anxiety) Qty: 90 RF: 0 levalbuterol HCl 0.63 mg/3 mL solution for nebulization 0.63 mg INHALATION Q8H PRN (Reason: shortness of breath or wheezing) Qty: 90 RF: 11 methocarbamol 750 mg tablet 750 mg PO TID PRN (Reason: Spasms) Qty: 90 RF: 3 epinephrine 0.3 mg/0.3 mL auto-injector 0.3 mg IM ONCE PRN (Reason: Allergic Reaction) Qty: 1 RF: 11 budesonide-formoterol [Symbicort] 80-4.5 mcg/actuation HFA aerosol inhaler 2 puff INHALATION BID Qty: 10.2 RF: 0 quetiapine 25 mg tablet See Rx Instructions PO BID Qty: 30 RF: 0 sumatriptan succinate 100 mg tablet 100 mg PO ONCE PRN (Reason: migraine headache) Qty: 14 RF: 3 montelukast 10 mg tablet 10 mg PO BEDTIME PRN (Reason: Allergy Symptoms) Qty: 90 RF: 3 levalbuterol tartrate [Xopenex HFA] 45 mcg/actuation HFA aerosol inhaler 2 inhalation INHALATION BID RF: 0 lidocaine 5 % Ointment 1 applic TOPICAL TID PRN (Reason: pain) RF: 0 ketotifen fumarate [Zaditor] 0.025 % (0.035 %) Drops 1 drp OPHTHALMIC (EYE) BID RF: 0 furosemide 40 mg tablet 40 mg PO DAILY PRN (Reason: edema) Qty: 30 RF: 0 sennosides [senna] 8.6 mg Tablet 17.2 mg PO BEDTIME PRN (Reason: Constipation) RF: 0 diphenhydramine HCl [Benadryl] 25 mg Capsule 75 mg PO DAILY PRN (Reason: Allergy Symptoms) RF: 0 omeprazole 40 mg Capsule,Delayed Release(Dr/Ec) 40 mg PO BID RF: 0 ondansetron 8 mg Tablet,Disintegrating 8 mg PO Q8H PRN (Reason: Nausea) RF: 0 oxycodone 5 mg Tablet 5 mg PO QID PRN (Reason: Pain (Scale Score 1-3)) RF: 0 methylprednisolone 4 mg tablets,dose pack See Rx Instructions .ROUTE .COMPLEX Qty: 21 RF: 0 hydromorphone 2 mg Tablet 2 mg PO Q4HR PRN (Reason: Pain, Severe (7-10)) Qty: 10 RF: 0 Referrals: Taye Mckeon MD [Primary Care Provider] - <Allyssa Limon DO - Last Filed: 12/18/20 07:27> Cosign ED Attending Yudelkaature Attestation: I was immediately available in the department for consultation. Documentation has been reviewed. I agree with assessment and plan.
[2020-12-09 19:25] LABS: Alanine Aminotransferase 24 IU/L (<35); Albumin 4.3 g/dL (3.5-5.0); Albumin Globulin Ratio 1.5 (1.0-2.8); Alkaline Phosphatase 86 U/L (38-126); Aspartate Aminotransferase 30 IU/L (14-36); BUN Creatinine Ratio 23.5 (6-22); Bilirubin Total 0.3 mg/dL (0.2-1.3); Blood Urea Nitrogen 23 mg/dL (7-17); Calcium 10.1 mg/dL (8.4-10.2); Carbon Dioxide 33 mmol/L (22-32); Chloride 102 mmol/L (98-107); Creatine Kinase 167 U/L (30-135); Estimated Glomerular Filt Rate 56.8 mL/min (>60); Globulin 2.8 g/dL (1.7-4.1); Glucose 90 mg/dL (80-110); HEMOLYSIS < 15 (0-50); Lactate (Lactic Acid) 0.8 mmol/L (0.7-2.1); Potassium 3.8 mmol/L (3.4-5.1); Sodium 139 mmol/L (137-145); Total Protein 7.1 g/dL (6.3-8.2)
[2020-12-09 19:37] LABS: NT-proBNP (BNP-Adult 18+) 66 pg/mL (<125); Troponin I < 0.012 ng/mL (0.01-0.034)
[2020-12-09 19:40] LABS: CKMB % Relative Index 2.1 % (1.5-5.0); Creatine Kinase MB 3.46 ng/mL (<2.37)
[2020-12-09 20:09] LABS: COVID19 - ADMIT (NP swab/PCR) Negative (Negative)
[2020-12-09] MEDS: ALBUTEROL/IPRATROPIUM 3 ML AMPUL INH (20:15)
== END 2020-12-09 21:24 | disposition home or self-care (01) ==
PROVIDERS: Emergency Medicine; Emergency Provider Physician Assistant; PCP Internal Medicine
DX: R06.00 Dyspnea, unspecified (principal); R50.9 Fever, unspecified; Z20.822 Contact with and (suspected) exposure to COVID-19
CPT/HCPCS: 36415; 71046; 80053; 82550; 82553; 83605; 83880; 84484; 85025; 87635; 93005; 94640; 99284; C9803

== ENCOUNTER 2020-12-21 16:40 | Emergency (ER) | payer OTHER, MEDICAID, SELFPAY ==
[2020-08-27 13:41] VITALS: BMI 35.4
[2020-12-21] VITALS (14 sets, daily range): BP systolic 130–159; BP diastolic 60–88; PULSE 91–111; RESP 20–43; TEMP 36.9; O2SAT 88–98
--- NOTE | 2020-12-21 17:01 | DI.RAD.S_ITS ---
PROCEDURE: XR CHEST 2V INDICATIONS: shortness of breath TECHNIQUE: 2 views of the chest were acquired. COMPARISON: [facility], CR, XR CHEST 2V, 12/09/2020, 16:59. FINDINGS: Surgical changes and devices: Postsurgical changes are partially visualized in the left humeral head. Lungs and pleura: There is pulmonary vascular prominence consistent with pulmonary edema. No pleural effusions or pneumothorax. Mediastinum: A large hiatal hernia is redemonstrated. Heart size is enlarged. Bones and chest wall: No suspicious bony abnormalities. Soft tissues appear unremarkable. IMPRESSION: 1. Pulmonary edema with cardiomegaly suggestive of congestive heart failure. 2. Large hiatal hernia redemonstrated. Dictated by: Abimael Lyon M.D. on 12/21/2020 at 17:41 Approved by: Abimael Lyon M.D. on 12/21/2020 at 17:42
[2020-12-21 17:16] LABS: Add Manual Diff / Slide Review NO; Basophils Absolute Auto 100 /uL (0-100); Basophils Percent Auto 0.7 % (0-2); Eosinophils Absolute Auto 0 /uL (0-450); Eosinophils Percent Auto 0.3 % (2-4); Hematocrit 36.3 % (36-46); Hemoglobin 12.1 g/dL (12.0-16.0); Lymphocytes Absolute Auto 1400 /uL (1100-4500); Lymphocytes Percent Auto 15.8 % (25-40); Mean Corpuscular HGB Conc 33.4 % (30-36); Mean Corpuscular Hemoglobin 28.6 PG (26-34); Mean Corpuscular Volume 85.9 fL (80-100); Monocytes Absolute Auto 500 /uL (0-900); Monocytes Percent Auto 5.4 % (3-14); Neutrophils Absolute Auto 7100 /uL (1500-7000); Neutrophils Percent Auto 77.8 % (50-75); Platelet Count 326 X10^3/uL (150-400); Red Blood Cell Count 4.23 X10^6/uL (4.0-5.2); Red Cell Distribution Width 16.2 % (11.6-14.8); White Blood Cell Count 9.1 X10^3/uL (4.5-11.0)
[2020-12-21 17:18] LABS: Alanine Aminotransferase 24 IU/L (<35); Albumin 4.5 g/dL (3.5-5.0); Albumin Globulin Ratio 1.5 (1.0-2.8); Alkaline Phosphatase 91 U/L (38-126); Aspartate Aminotransferase 31 IU/L (14-36); BUN Creatinine Ratio 25.8 (6-22); Bilirubin Total 0.3 mg/dL (0.2-1.3); Blood Urea Nitrogen 25 mg/dL (7-17); Calcium 9.6 mg/dL (8.4-10.2); Carbon Dioxide 30 mmol/L (22-32); Chloride 99 mmol/L (98-107); Estimated Glomerular Filt Rate 57.5 mL/min (>60); Globulin 3.1 g/dL (1.7-4.1); Glucose 113 mg/dL (80-110); HEMOLYSIS < 15 (0-50); Lactate (Lactic Acid) 1.2 mmol/L (0.7-2.1); Potassium 3.6 mmol/L (3.4-5.1); Sodium 137 mmol/L (137-145); Total Protein 7.6 g/dL (6.3-8.2)
[2020-12-21 17:22] LABS: COVID19 -Nasal RAPID Negative (Negative)
[2020-12-21 17:26] LABS: NT-proBNP (BNP-Adult 18+) 33 pg/mL (<125)
[2020-12-21] MEDS: ALBUTEROL/IPRATROPIUM 3 ML AMPUL INH (17:51)
--- NOTE | 2020-12-21 18:12 | ED_ITS ---
HPI - SOB/Dyspnea <Savannah Clemons PA-C - Last Filed: 12/21/20 20:36> General Chief Complaint: Shortness of Breath/Dyspnea Stated Complaint: difficulty breathing Time Seen by Provider: 12/21/20 17:21 Source: patient Mode of arrival: Ambulatory History of Present Illness HPI Narrative: 65-year-old female with past medical history asthma, anxiety, migraines, fibromyalgia, hypertrophic cardiomyopathy presents to the ED with 1 day of acute dyspnea. Patient endorses shortness of breath, tried a nebulizer treatment at home without much relief. Patient also endorses a headache. Patient endorses anxiety. Patient denies fever, chills, chest pain, cough, nausea, vomiting, abdominal pain, lightheadedness, dizziness, syncope. Related Data Home Medications Medication Instructions Recorded Confirmed sennosides 8.6 mg tablet (senna) 17.2 mg PO BEDTIME PRN 09/20/18 11/24/20 potassium chloride 20 mEq 10 meq PO DAILY PRN 10/29/18 11/16/20 tablet,extended release levalbuterol tartrate 45 2 inhalation INHALATION BID gram 08/26/19 11/24/20 mcg/actuation aerosol inhaler (Xopenex HFA) diphenhydramine HCl 25 mg capsule 75 mg PO DAILY PRN 10/26/19 11/24/20 (Benadryl) omeprazole 40 mg capsule,delayed 40 mg PO BID 02/10/20 11/24/20 release lidocaine 5 % topical ointment 1 applic TOPICAL TID PRN 02/24/20 11/24/20 ketotifen fumarate 0.025 % (0.035 1 drp OPHTHALMIC (EYE) BID 03/02/20 11/24/20 %) eye drops (Zaditor) fluticasone propionate 50 1 spray INTRANASAL BID 04/02/20 11/24/20 mcg/actuation nasal spray,suspension gabapentin 600 mg tablet 600 mg PO QID tab 04/02/20 11/24/20 (Neurontin) ondansetron 8 mg disintegrating 8 mg PO Q8H PRN 06/29/20 11/24/20 tablet oxycodone 5 mg tablet 5 mg PO QID PRN 06/29/20 11/16/20 Previous Rx's Medication Instructions Recorded levalbuterol HCl 0.63 mg/3 mL 0.63 mg INHALATION Q8H PRN #90 ml 09/11/19 solution for nebulization methocarbamol 750 mg tablet 750 mg PO TID PRN #90 tab 09/29/19 epinephrine 0.3 mg/0.3 mL 0.3 mg IM ONCE PRN #1 ea 01/01/20 injection, auto-injector budesonide-formoterol HFA 80 2 puff INHALATION BID #10.2 gram 01/28/20 mcg-4.5 mcg/actuation aerosol inhaler (Symbicort) montelukast 10 mg tablet 10 mg PO BEDTIME PRN #90 tab 02/23/20 sumatriptan succinate 100 mg tablet 100 mg PO ONCE PRN #14 tab 02/23/20 furosemide 40 mg tablet 40 mg PO DAILY PRN #30 tab 03/04/20 diazepam 5 mg tablet 5 mg PO TID PRN #90 tab 09/10/20 Trintellix 20 mg tablet 20 mg PO DAILY #30 tab NS 09/28/20 (vortioxetine) methylprednisolone 4 mg tablets in See Rx Instructions .ROUTE 10/10/20 a dose pack .COMPLEX #21 ea quetiapine 25 mg tablet See Rx Instructions PO BID #30 tab 10/27/20 hydromorphone 2 mg tablet 2 mg PO Q4HR PRN #10 tab 11/22/20 mirtazapine 7.5 mg tablet 7.5 mg PO BEDTIME PRN #30 tab 11/24/20 Allergies Allergy/AdvReac Type Severity Reaction Status Date / Time Iodinated Contrast Media Allergy Severe Difficulty Verified 12/21/20 17:03 Breathing latex Allergy Severe Rash Verified 12/21/20 17:03 morphine [MORPHINE] Allergy Severe Anaphylaxis Verified 12/21/20 17:03 Penicillins [PENICILLINS] Allergy Severe Anaphylaxis Verified 12/21/20 17:03 Sulfa (Sulfonamide Allergy Severe RASH Verified 12/21/20 17:03 Antibiotics) [SULFA (SULFONAMIDE ANTIBIOTICS)] azithromycin Allergy Intermediate Rash Verified 12/21/20 17:03 [From ZITHROMAX Z-MARILYN] cefuroxime [From Ceftin] Allergy Intermediate Rash Verified 12/21/20 17:03 sulfamethoxazole Allergy Intermediate RASH Verified 12/21/20 17:03 [From SEPTRA] trimethoprim [From SEPTRA] Allergy Intermediate RASH Verified 12/21/20 17:03 ciprofloxacin [From Cipro] Allergy Pt does Verified 12/21/20 17:03 not remember reaction Corticosteroids Allergy Swelling Verified 12/21/20 17:03 (Glucocorticoids) of Lip/Tongue/Throat cephalexin [From Keflex] AdvReac Severe Fever, Verified 12/21/20 17:03 Asthma, Tachycardia prednisone AdvReac Severe nausea and Verified 12/21/20 17:03 feels very weak, and axious verapamil AdvReac Intermediate Asthma Verified 12/21/20 17:03 symptoms zonisamide AdvReac Intermediate Asthma Verified 12/21/20 17:03 symptoms Review of Systems <Savannah Clemons PA-C - Last Filed: 12/21/20 20:36> Constitutional Constitutional: Denies chills, Denies fatigue, Denies fever(s), Denies frequent falls, Reports headache(s), Denies lethargy and Denies weakness Eyes Eyes: Denies change in vision, Denies eye discharge, Denies irritation and Denies loss of vision ENT Ears, Nose, Mouth, and Throat: Denies change in voice, Denies dizziness, Reports headache(s), Denies neck pain, Denies sore throat and Denies throat swelling Cardiovascular Cardiovascular: Denies chest pain, Denies irregular heart rhythm, Denies lightheadedness, Denies palpitations, Reports dyspnea, Denies dyspnea on e xertion and Denies orthopnea Respiratory Respiratory: Denies cough, Reports dyspnea, Denies dyspnea on exertion and Reports wheezing Gastrointestinal Gastrointestinal: Denies abdominal pain, Denies change in bowel habits, Denies diarrhea, Denies nausea and Denies vomiting Musculoskeletal Musculoskeletal: Denies neck pain and Denies numbness Integumentary/Breasts Skin/Breast: Denies pruritus, Denies erythema, Denies rash and Denies wounds Neurologic Neurologic: Denies behavioral changes, Denies confusion, Denies dizziness, Denies frequent falls, Reports headache(s), Denies loss of vision, Denies numbness and Denies weakness Psychiatric Psychiatric: Denies anxiety, Denies behavioral changes, Denies confusion, Denies depression, Denies homicidal ideation and Denies suicidal ideation Endocrine Endocrine: Denies fatigue, Denies flushing and Denies palpitations Hematologic/Lymphatic Hematologic/Lymphatic: Denies easy bruising Allergic/Immunologic Allergic/Immunologic: Denies urticaria, Denies throat swelling and Reports wheezing Patient History <Savannah Clemons PA-C - Last Filed: 12/21/20 20:36> Medical History Anemia Anxiety Asthma Chronic back pain Chronic cough Depression Femur fracture, left Fibromyalgia Fractures GERD (gastroesophageal reflux disease) Hiatal hernia Recurrent sinusitis Venous insufficiency (chronic) (peripheral) Surgical History Anesthesia History of eye surgery (~1973) History of foot surgery History of hysterectomy (~1979) History of shoulder surgery (~2011) History of tonsillectomy (~1975) Hx of bilateral cataract extraction Family History Mother Heart disease Social History marital status: number of children: 1 household members: none lives independently: Yes caregiver/support person: Yes (3 afternoons per week) pets and animals: Yes occupational status: disabled Smoking Status: Never smoker alcohol intake: never substance use type: does not use Smoking Status: Never smoker alcohol intake frequency: holidays/special occasions only Substance Use Type: does not use Exam <Savannah Clemons PA-C - Last Filed: 12/21/20 20:36> Initial Vital Signs Initial Vital Signs: Vital Signs Temperature 98.4 F 12/21/20 16:43 Pulse Rate 111 H 12/21/20 16:43 Respiratory Rate 24 12/21/20 16:43 Blood Pressure 140/71 12/21/20 16:43 Pulse Oximetry 94 12/21/20 16:43 Const General: cooperative and anxious [facility] Head: normocephalic and atraumatic Ears: external ears normal and TM's normal bilaterally Nose: external nose normal and No nasal discharge Face and sinus: sinuses nontender, face symmetric, no sinus tenderness and No dry mucous membranes Mouth: oral mucosae normal and moist mucous membranes Teeth and gingiva: dentition normal Throat: tonsils normal and uvula midline Eyes General: appearance normal, both eyes and all related structures Eyelids: eyelids normal Conjunctivae: conjunctivae normal Sclera: sclerae normal Pupils: PERRL EOM: EOM intact bilaterally Neck Neck: normal visual inspection, trachea midline, No lymphadenopathy, No midline deformity and No JVD Lymphatic: No lymphedema Chest Chest: normal inspection of the chest Resp Effort & Inspection: normal respiratory effort, able to speak in complete sentences, no respiratory distress and no use of accessory muscles Auscultation: no rales, no rhonchi and wheezes Other: Diffuse wheezes bilaterally. Cardio Rate: regular rate Rhythm: regular rhythm Heart Sounds: no click, no gallops, no murmurs and no rubs Pulses: normal peripheral pulses GI Inspection: non-distended Palpation: soft, no hepatosplenomegaly, No guarding, No pulsatile mass and No tender Auscultation: normal bowel sounds Back/Spine/Pelvis Back: No CVA tenderness Cervical Spine: cervical ROM normal and No pain with cervical ROM Thoracic/Lumbar Spine: thoracic and lumbar spine normal to inspection Skin General: no rashes or lesions noted, No jaundice and No petechiae Neuro General: patient alert, patient oriented x3, gait normal and no focal motor deficits Speech: speech normal Extrem General: full ROM, no clubbing, cyanosis or edema, no pedal edema and no calf tenderness Psych Appearance: well kempt Mental Status: mental status grossly normal Attitude: cooperative Thought Content: normal and suicidality Judgment: judgment good <Taye Watts MD - Last Filed: 12/24/20 07:00> Initial Vital Signs Initial Vital Signs: Vital Signs Temperature 98.4 F 12/21/20 16:43 Pulse Rate 111 H 12/21/20 16:43 Respiratory Rate 24 12/21/20 16:43 Blood Pressure 140/71 12/21/20 16:43 Pulse Oximetry 94 12/21/20 16:43 Course <Savannah Clemons PA-C - Last Filed: 12/21/20 20:36> Course Course Narrative: D-dimer elevated over the age adjusted cut off. Ordered CT PE. Patient was premedicated with methylprednisolone and Benadryl prior to the CT PE. BNP within normal limits, CHF exacerbation unlikely. COVID-19 test negative. Patient's wheezing and dyspnea improved with a DuoNeb treatment. CT PE negative for pulmonary embolism. Patient's symptoms greatly improved with the DuoNeb treatment. Patient's symptoms likely due to an acute asthma exacerbation. Will discharge home with ED return precautions and PCP follow-up. Orders Ordered: Discontinued Medications Acetaminophen (Acetaminophen 325 Mg Tablet) 975 mg PO NOW ONE Stop: 12/21/20 18:16 Last Admin: 12/21/20 18:40 Dose: 975 mg Documented by: JUANA Albuterol/Ipratropium (Albuterol/Ipratropium 3 Ml Ampul) 3 ml INH NOW ONE Stop: 12/21/20 17:31 Last Admin: 12/21/20 17:51 Dose: 3 ml Documented by: BRAYAN Diphenhydramine HCl (Diphenhydramine 50 Mg/Ml Vial) 50 mg IV NOW ONE Stop: 12/21/20 18:53 Last Admin: 12/21/20 19:03 Dose: 50 mg Documented by: RONALDO Sodium Chloride (Normal Saline 0.9%) 1,000 mls @ 1,000 mls/hr IV BOLUS ONE Stop: 12/21/20 18:27 Last Admin: 12/21/20 17:33 Dose: Not Given Documented by: RONALDO Methylprednisolone (Methylprednisolone 125 Mg/2 Ml Vial) 125 mg IV NOW ONE Stop: 12/21/20 18:57 Last Admin: 12/21/20 19:03 Dose: 125 mg Documented by: RONALDO Vital Signs Vital signs: Vital Signs - 8 hr 12/21/20 16:43 12/21/20 17:05 12/21/20 17:07 Temperature 98.4 F Pulse Rate 111 H 103 H 100 H Respiratory Rate 24 32 H 34 H Blood Pressure 140/71 140/65 Pulse Oximetry 94 91 91 12/21/20 17:21 12/21/20 17:30 12/21/20 18:00 Temperature Pulse Rate 105 H 100 H 103 H Respiratory Rate 43 H 32 H 30 H Blood Pressure 159/88 H Pulse Oximetry 88 L 97 97 12/21/20 18:18 12/21/20 18:30 12/21/20 18:42 Temperature Pulse Rate 95 H 102 H 106 H Respiratory Rate 20 30 H 35 H Blood Pressure 130/73 Pulse Oximetry 98 96 96 12/21/20 19:00 12/21/20 19:01 12/21/20 19:31 Temperature Pulse Rate 101 H 101 H 98 H Respiratory Rate 24 24 Blood Pressure 143/65 H Pulse Oximetry 94 95 94 <Taye Watts MD - Last Filed: 12/24/20 07:00> Orders Ordered: Discontinued Medications Acetaminophen (Acetaminophen 325 Mg Tablet) 975 mg PO NOW ONE Stop: 12/21/20 18:16 Last Admin: 12/21/20 18:40 Dose: 975 mg Documented by: JUANA Albuterol/Ipratropium (Albuterol/Ipratropium 3 Ml Ampul) 3 ml INH NOW ONE Stop: 12/21/20 17:31 Last Admin: 12/21/20 17:51 Dose: 3 ml Documented by: BRAYAN Diphenhydramine HCl (Diphenhydramine 50 Mg/Ml Vial) 50 mg IV NOW ONE Stop: 12/21/20 18:53 Last Admin: 12/21/20 19:03 Dose: 50 mg Documented by: RONALDO Sodium Chloride (Normal Saline 0.9%) 1,000 mls @ 1,000 mls/hr IV BOLUS ONE Stop: 12/21/20 18:27 Last Admin: 12/21/20 17:33 Dose: Not Given Documented by: RONALDO Methylprednisolone (Methylprednisolone 125 Mg/2 Ml Vial) 125 mg IV NOW ONE Stop: 12/21/20 18:57 Last Admin: 12/21/20 19:03 Dose: 125 mg Documented by: RONALDO Vital Signs Vital signs: Vital Signs - 8 hr 12/21/20 16:43 12/21/20 17:05 12/21/20 17:07 Temperature 98.4 F Pulse Rate 111 H 103 H 100 H Respiratory Rate 24 32 H 34 H Blood Pressure 140/71 140/65 Pulse Oximetry 94 91 91 12/21/20 17:21 12/21/20 17:30 12/21/20 18:00 Temperature Pulse Rate 105 H 100 H 103 H Respiratory Rate 43 H 32 H 30 H Blood Pressure 159/88 H Pulse Oximetry 88 L 97 97 12/21/20 18:18 12/21/20 18:30 12/21/20 18:42 Temperature Pulse Rate 95 H 102 H 106 H Respiratory Rate 20 30 H 35 H Blood Pressure 130/73 Pulse Oximetry 98 96 96 12/21/20 19:00 12/21/20 19:01 12/21/20 19:31 Temperature Pulse Rate 101 H 101 H 98 H Respiratory Rate 24 24 Blood Pressure 143/65 H Pulse Oximetry 94 95 94 MDM - SOB/Dyspnea <Savannah Clemons PA-C - Last Filed: 12/21/20 20:36> Medical Records Attestation: I reviewed the patient's medical records. Lab Data Attestation: I reviewed the patient's lab results. Lab results narrative: D-dimer elevated Result diagrams: 12/21/20 16:59 12/21/20 16:59 Labs: Lab Results 12/21/20 12/21/20 12/21/20 Range/Units 16:59 16:59 16:59 WBC 9.1 (4.5-11.0) X10^3/uL RBC 4.23 (4.0-5.2) X10^6/uL Hgb 12.1 (12.0-16.0) g/dL Hct 36.3 (36-46) % MCV 85.9 (80-100) fL MCH 28.6 (26-34) PG MCHC 33.4 (30-36) % RDW 16.2 H (11.6-14.8) % Plt Count 326 (150-400) X10^3/uL Neut % (Auto) 77.8 H (50-75) % Lymph % (Auto) 15.8 L (25-40) % [place] % (Auto) 5.4 (3-14) % Eos % (Auto) 0.3 L (2-4) % Baso % (Auto) 0.7 (0-2) % Neut # (Auto) 7100 H (3075-7574) /uL Lymph # (Auto) 1400 (6823-3269) /uL [place] # (Auto) 500 (0-900) /uL Eos # (Auto) 0 (0-450) /uL Baso # (Auto) 100 (0-100) /uL PT (10.1-12.7) SECONDS INR (0.9-1.3) D-Dimer (<230) ng/mL Sodium 137 (137-145) mmol/L Potassium 3.6 (3.4-5.1) mmol/L Chloride 99 (98-107) mmol/L Carbon Dioxide 30 (22-32) mmol/L BUN 25 H (7-17) mg/dL Creatinine 0.97 (0.52-1.04) mg/dL Estimated GFR 57.5 L (>60) mL/min BUN/Creatinine Ratio 25.8 H (6-22) Glucose 113 H (80-110) mg/dL Lactate 1.2 (0.7-2.1) mmol/L Calcium 9.6 (8.4-10.2) mg/dL Total Bilirubin 0.3 (0.2-1.3) mg/dL AST 31 (14-36) IU/L ALT 24 (<35) IU/L Alkaline Phosphatase 91 (38-126) U/L Total Creatine Kinase (30-135) U/L CK-MB (CK-2) (<2.37) ng/mL CK-MB (CK-2) Rel Index (1.5-5.0) % Troponin I (0.01-0.034) ng/mL NT-Pro-B Natriuret Pep 33 (<125) pg/mL Total Protein 7.6 (6.3-8.2) g/dL Albumin 4.5 (3.5-5.0) g/dL Globulin 3.1 (1.7-4.1) g/dL Albumin/Globulin Ratio 1.5 (1.0-2.8) SARS-CoV-2 (PCR) (Negative) 12/21/20 12/21/20 12/21/20 Range/Units 16:59 16:59 16:59 WBC (4.5-11.0) X10^3/uL RBC (4.0-5.2) X10^6/uL Hgb (12.0-16.0) g/dL Hct (36-46) % MCV (80-100) fL MCH (26-34) PG MCHC (30-36) % RDW (11.6-14.8) % Plt Count (150-400) X10^3/uL Neut % (Auto) (50-75) % Lymph % (Auto) (25-40) % [place] % (Auto) (3-14) % Eos % (Auto) (2-4) % Baso % (Auto) (0-2) % Neut # (Auto) (2535-9718) /uL Lymph # (Auto) (4999-2709) /uL [place] # (Auto) (0-900) /uL Eos # (Auto) (0-450) /uL Baso # (Auto) (0-100) /uL PT 11.0 (10.1-12.7) SECONDS INR 1.0 (0.9-1.3) D-Dimer (<230) ng/mL Sodium (137-145) mmol/L Potassium (3.4-5.1) mmol/L Chloride (98-107) mmol/L Carbon Dioxide (22-32) mmol/L BUN (7-17) mg/dL Creatinine (0.52-1.04) mg/dL Estimated GFR (>60) mL/min BUN/Creatinine Ratio (6-22) Glucose (80-110) mg/dL Lactate (0.7-2.1) mmol/L Calcium (8.4-10.2) mg/dL Total Bilirubin (0.2-1.3) mg/dL AST (14-36) IU/L ALT (<35) IU/L Alkaline Phosphatase (38-126) U/L Total Creatine Kinase 124 (30-135) U/L CK-MB (CK-2) 1.94 (<2.37) ng/mL CK-MB (CK-2) Rel Index 1.6 (1.5-5.0) % Troponin I < 0.012 (0.01-0.034) ng/mL NT-Pro-B Natriuret Pep (<125) pg/mL Total Protein (6.3-8.2) g/dL Albumin (3.5-5.0) g/dL Globulin (1.7-4.1) g/dL Albumin/Globulin Ratio (1.0-2.8) SARS-CoV-2 (PCR) Negative (Negative) 12/21/20 Range/Units 16:59 WBC (4.5-11.0) X10^3/uL RBC (4.0-5.2) X10^6/uL Hgb (12.0-16.0) g/dL Hct (36-46) % MCV (80-100) fL MCH (26-34) PG MCHC (30-36) % RDW (11.6-14.8) % Plt Count (150-400) X10^3/uL Neut % (Auto) (50-75) % Lymph % (Auto) (25-40) % [place] % (Auto) (3-14) % Eos % (Auto) (2-4) % Baso % (Auto) (0-2) % Neut # (Auto) (1552-4993) /uL Lymph # (Auto) (6275-9214) /uL [place] # (Auto) (0-900) /uL Eos # (Auto) (0-450) /uL Baso # (Auto) (0-100) /uL PT (10.1-12.7) SECONDS INR (0.9-1.3) D-Dimer 473 H (<230) ng/mL Sodium (137-145) mmol/L Potassium (3.4-5.1) mmol/L Chloride (98-107) mmol/L Carbon Dioxide (22-32) mmol/L BUN (7-17) mg/dL Creatinine (0.52-1.04) mg/dL Estimated GFR (>60) mL/min BUN/Creatinine Ratio (6-22) Glucose (80-110) mg/dL Lactate (0.7-2.1) mmol/L Calcium (8.4-10.2) mg/dL Total Bilirubin (0.2-1.3) mg/dL AST (14-36) IU/L ALT (<35) IU/L Alkaline Phosphatase (38-126) U/L Total Creatine Kinase (30-135) U/L CK-MB (CK-2) (<2.37) ng/mL CK-MB (CK-2) Rel Index (1.5-5.0) % Troponin I (0.01-0.034) ng/mL NT-Pro-B Natriuret Pep (<125) pg/mL Total Protein (6.3-8.2) g/dL Albumin (3.5-5.0) g/dL Globulin (1.7-4.1) g/dL Albumin/Globulin Ratio (1.0-2.8) SARS-CoV-2 (PCR) (Negative) Imaging Data Chest x-ray: Radiologist's Impression: PROCEDURE:? XR CHEST 2V ? INDICATIONS:? shortness of breath ? TECHNIQUE:? 2 views of the chest were acquired.? ? COMPARISON:? [facility], CR, XR CHEST 2V, 12/09/2020, 16:59. ? FINDINGS:? ? Surgical changes and devices:? Postsurgical changes are partially visualized in the left humeral head.? ? Lungs and pleura:? There is pulmonary vascular prominence consistent with pulmonary edema.? No pleural effusions or pneumothorax.? ? Mediastinum:? A large hiatal hernia is redemonstrated.? Heart size is enlarged.? ? Bones and chest wall:? No suspicious bony abnormalities.? Soft tissues appear unremarkable.? ? IMPRESSION:? ? 1. Pulmonary edema with cardiomegaly suggestive of congestive heart failure. ? 2. Large hiatal hernia redemonstrated.? ? ? Dictated by: Abimael Lyon M.D. on 12/21/2020 at 17:41 ? ? Approved by: Abimael Lyon M.D. on 12/21/2020 at 17:42 ? CT scan - chest: Radiologist's Impression: PROCEDURE:? CT ANGIO CHEST PE PROTOCOL ? INDICATIONS:? Acute dyspnea ? TECHNIQUE:? After the administration of intravenous contrast, 2 mm thick sections acquired from the pulmonary apices to the posterior costophrenic angles.? 3-dimensional maximum intensity projection (MIP) coronal and sagittal reformats were then acquired through the thorax.? For radiation dose reduction, the following was used:? automated exposure control, adjustment of mA and/or kV according to patient size.? ? COMPARISON:? [facility], CT, CT ANGIO CHEST PE PROTOCOL, 09/07/2020, 13:02. ? FINDINGS:? Image quality:? Excellent.? ? Pulmonary arteries:? Pulmonary arteries are normal in size, and demonstrate no intraluminal filling defects to suggest central pulmonary embolism.? ? Lungs and pleura:? There is atelectasis bilaterally along the hiatal hernia in the medial lung bases.? Dependent atelectasis is also demonstrated.? No acute consolidation.? No pleural effusions or pneumothorax.? Central and peripheral airways are patent.? ? Mediastinum:? Heart size is enlarged, without pericardial effusion.? No mediastinal or hilar adenopathy.? Thoracic aorta is normal in caliber and enhancement.? Esophagus is normal in caliber, with a large hiatal hernia. ? Bones and chest wall:? No suspicious bony lesions.? No definite acute fractures.? There are old healed fractures of the left posterior 6th and 7th ribs.? Thyroid gland demonstrates no discrete nodules.? No axillary or supraclavicular adenopathy.? ? Abdomen:? Visualized upper abdominal solid organs appear normal in the early arterial phase of enhancement.? ? IMPRESSION:? ? 1. No evidence of pulmonary embolism. ? 2. Large hiatal hernia with associated bibasilar atelectasis.? ? ? Dictated by: Abimael Lyon M.D. on 12/21/2020 at 20:20 ? ? Approved by: Abimael Lyon M.D. on 12/21/2020 at 20:24 ? ECG Data Interpretation: Sinus tachycardia, no acute ST-T changes, no axis deviation. MDM Narrative Medical decision making narrative: 65-year-old female with past medical history asthma, anxiety, migraines, fibromyalgia, hypertrophic cardiomyopathy presents to the ED with 1 day of acute dyspnea. Concern for COVID-19 infection versus pneumonia versus asthma exacerbation versus CHF exacerbation versus PE versus ACS. Will order labs, troponin, D-dimer, chest x-ray, EKG, COVID test. Will give DuoNeb. Will reassess. <Taye Watts MD - Last Filed: 12/24/20 07:00> Lab Data Labs: Lab Results 12/21/20 12/21/20 12/21/20 Range/Units 16:59 16:59 16:59 WBC 9.1 (4.5-11.0) X10^3/uL RBC 4.23 (4.0-5.2) X10^6/uL Hgb 12.1 (12.0-16.0) g/dL Hct 36.3 (36-46) % MCV 85.9 (80-100) fL MCH 28.6 (26-34) PG MCHC 33.4 (30-36) % RDW 16.2 H (11.6-14.8) % Plt Count 326 (150-400) X10^3/uL Neut % (Auto) 77.8 H (50-75) % Lymph % (Auto) 15.8 L (25-40) % [place] % (Auto) 5.4 (3-14) % Eos % (Auto) 0.3 L (2-4) % Baso % (Auto) 0.7 (0-2) % Neut # (Auto) 7100 H (0618-5179) /uL Lymph # (Auto) 1400 (4439-1146) /uL [place] # (Auto) 500 (0-900) /uL Eos # (Auto) 0 (0-450) /uL Baso # (Auto) 100 (0-100) /uL PT (10.1-12.7) SECONDS INR (0.9-1.3) D-Dimer (<230) ng/mL Sodium 137 (137-145) mmol/L Potassium 3.6 (3.4-5.1) mmol/L Chloride 99 (98-107) mmol/L Carbon Dioxide 30 (22-32) mmol/L BUN 25 H (7-17) mg/dL Creatinine 0.97 (0.52-1.04) mg/dL Estimated GFR 57.5 L (>60) mL/min BUN/Creatinine Ratio 25.8 H (6-22) Glucose 113 H (80-110) mg/dL Lactate 1.2 (0.7-2.1) mmol/L Calcium 9.6 (8.4-10.2) mg/dL Total Bilirubin 0.3 (0.2-1.3) mg/dL AST 31 (14-36) IU/L ALT 24 (<35) IU/L Alkaline Phosphatase 91 (38-126) U/L Total Creatine Kinase (30-135) U/L CK-MB (CK-2) (<2.37) ng/mL CK-MB (CK-2) Rel Index (1.5-5.0) % Troponin I (0.01-0.034) ng/mL NT-Pro-B Natriuret Pep 33 (<125) pg/mL Total Protein 7.6 (6.3-8.2) g/dL Albumin 4.5 (3.5-5.0) g/dL Globulin 3.1 (1.7-4.1) g/dL Albumin/Globulin Ratio 1.5 (1.0-2.8) SARS-CoV-2 (PCR) (Negative) 12/21/20 12/21/20 12/21/20 Range/Units 16:59 16:59 16:59 WBC (4.5-11.0) X10^3/uL RBC (4.0-5.2) X10^6/uL Hgb (12.0-16.0) g/dL Hct (36-46) % MCV (80-100) fL MCH (26-34) PG MCHC (30-36) % RDW (11.6-14.8) % Plt Count (150-400) X10^3/uL Neut % (Auto) (50-75) % Lymph % (Auto) (25-40) % [place] % (Auto) (3-14) % Eos % (Auto) (2-4) % Baso % (Auto) (0-2) % Neut # (Auto) (6754-7890) /uL Lymph # (Auto) (5682-5591) /uL [place] # (Auto) (0-900) /uL Eos # (Auto) (0-450) /uL Baso # (Auto) (0-100) /uL PT 11.0 (10.1-12.7) SECONDS INR 1.0 (0.9-1.3) D-Dimer (<230) ng/mL Sodium (137-145) mmol/L Potassium (3.4-5.1) mmol/L Chloride (98-107) mmol/L Carbon Dioxide (22-32) mmol/L BUN (7-17) mg/dL Creatinine (0.52-1.04) mg/dL Estimated GFR (>60) mL/min BUN/Creatinine Ratio (6-22) Glucose (80-110) mg/dL Lactate (0.7-2.1) mmol/L Calcium (8.4-10.2) mg/dL Total Bilirubin (0.2-1.3) mg/dL AST (14-36) IU/L ALT (<35) IU/L Alkaline Phosphatase (38-126) U/L Total Creatine Kinase 124 (30-135) U/L CK-MB (CK-2) 1.94 (<2.37) ng/mL CK-MB (CK-2) Rel Index 1.6 (1.5-5.0) % Troponin I < 0.012 (0.01-0.034) ng/mL NT-Pro-B Natriuret Pep (<125) pg/mL Total Protein (6.3-8.2) g/dL Albumin (3.5-5.0) g/dL Globulin (1.7-4.1) g/dL Albumin/Globulin Ratio (1.0-2.8) SARS-CoV-2 (PCR) Negative (Negative) 11/09/21 Range/Units 16:59 WBC (4.5-11.0) X10^3/uL RBC (4.0-5.2) X10^6/uL Hgb (12.0-16.0) g/dL Hct (36-46) % MCV (80-100) fL MCH (26-34) PG MCHC (30-36) % RDW (11.6-14.8) % Plt Count (150-400) X10^3/uL Neut % (Auto) (50-75) % Lymph % (Auto) (25-40) % [place] % (Auto) (3-14) % Eos % (Auto) (2-4) % Baso % (Auto) (0-2) % Neut # (Auto) (9669-8932) /uL Lymph # (Auto) (5557-7184) /uL [place] # (Auto) (0-900) /uL Eos # (Auto) (0-450) /uL Baso # (Auto) (0-100) /uL PT (10.1-12.7) SECONDS INR (0.9-1.3) D-Dimer 473 H (<230) ng/mL Sodium (137-145) mmol/L Potassium (3.4-5.1) mmol/L Chloride (98-107) mmol/L Carbon Dioxide (22-32) mmol/L BUN (7-17) mg/dL Creatinine (0.52-1.04) mg/dL Estimated GFR (>60) mL/min BUN/Creatinine Ratio (6-22) Glucose (80-110) mg/dL Lactate (0.7-2.1) mmol/L Calcium (8.4-10.2) mg/dL Total Bilirubin (0.2-1.3) mg/dL AST (14-36) IU/L ALT (<35) IU/L Alkaline Phosphatase (38-126) U/L Total Creatine Kinase (30-135) U/L CK-MB (CK-2) (<2.37) ng/mL CK-MB (CK-2) Rel Index (1.5-5.0) % Troponin I (0.01-0.034) ng/mL NT-Pro-B Natriuret Pep (<125) pg/mL Total Protein (6.3-8.2) g/dL Albumin (3.5-5.0) g/dL Globulin (1.7-4.1) g/dL Albumin/Globulin Ratio (1.0-2.8) SARS-CoV-2 (PCR) (Negative) Discharge Plan Departure Patient Disposition: Home Clinical Impression: Shortness of breath Instructions: DI for Asthma -- Adult Activity Restrictions/Additional Instructions: You were evaluated in the ED for shortness of breath today. Your labs were normal. Your CT did not show a pulmonary embolism. Your symptoms improved with the nebulizer treatment. Your shortness of breath is likely due to an acute asthma exacerbation. You may continue to use your nebulizer every 4-6 hours as needed. Return to the ED if you shortness of breath worsens, you experience chest pain, fever, chills. Please follow-up with your primary care provider. Prescriptions: No Action Trintellix 20 mg tablet 20 mg PO DAILY Qty: 30 RF: 5 mirtazapine 7.5 mg tablet 7.5 mg PO BEDTIME PRN (Reason: sleep) Qty: 30 RF: 2 Hold Instructions: not currently taking potassium chloride 20 mEq tablet extended release 10 meq PO DAILY PRN (Reason: Take w/lasix) RF: 0 fluticasone propionate 50 mcg/actuation spray,suspension 1 spray intranasal BID RF: 0 gabapentin [Neurontin] 600 mg tablet 600 mg PO QID RF: 0 diazepam 5 mg tablet 5 mg PO TID PRN (Reason: Anxiety) Qty: 90 RF: 0 levalbuterol HCl 0.63 mg/3 mL solution for nebulization 0.63 mg INHALATION Q8H PRN (Reason: shortness of breath or wheezing) Qty: 90 RF: 11 methocarbamol 750 mg tablet 750 mg PO TID PRN (Reason: Spasms) Qty: 90 RF: 3 epinephrine 0.3 mg/0.3 mL auto-injector 0.3 mg IM ONCE PRN (Reason: Allergic Reaction) Qty: 1 RF: 11 budesonide-formoterol [Symbicort] 80-4.5 mcg/actuation HFA aerosol inhaler 2 puff INHALATION BID Qty: 10.2 RF: 0 quetiapine 25 mg tablet See Rx Instructions PO BID Qty: 30 RF: 0 sumatriptan succinate 100 mg tablet 100 mg PO ONCE PRN (Reason: migraine headache) Qty: 14 RF: 3 montelukast 10 mg tablet 10 mg PO BEDTIME PRN (Reason: Allergy Symptoms) Qty: 90 RF: 3 levalbuterol tartrate [Xopenex HFA] 45 mcg/actuation HFA aerosol inhaler 2 inhalation INHALATION BID RF: 0 lidocaine 5 % Ointment 1 applic TOPICAL TID PRN (Reason: pain) RF: 0 ketotifen fumarate [Zaditor] 0.025 % (0.035 %) Drops 1 drp OPHTHALMIC (EYE) BID RF: 0 furosemide 40 mg tablet 40 mg PO DAILY PRN (Reason: edema) Qty: 30 RF: 0 sennosides [senna] 8.6 mg Tablet 17.2 mg PO BEDTIME PRN (Reason: Constipation) RF: 0 diphenhydramine HCl [Benadryl] 25 mg Capsule 75 mg PO DAILY PRN (Reason: Allergy Symptoms) RF: 0 omeprazole 40 mg Capsule,Delayed Release(Dr/Ec) 40 mg PO BID RF: 0 ondansetron 8 mg Tablet,Disintegrating 8 mg PO Q8H PRN (Reason: Nausea) RF: 0 oxycodone 5 mg Tablet 5 mg PO QID PRN (Reason: Pain (Scale Score 1-3)) RF: 0 methylprednisolone 4 mg tablets,dose pack See Rx Instructions .ROUTE .COMPLEX Qty: 21 RF: 0 hydromorphone 2 mg Tablet 2 mg PO Q4HR PRN (Reason: Pain, Severe (7-10)) Qty: 10 RF: 0 Referrals: Taye Mckeon MD [Primary Care Provider] -
[2020-12-21] MEDS: ACETAMINOPHEN 325 MG TABLET 975 MG PO (18:40)
[2020-12-21 18:43] LABS: D Dimer 473 ng/mL (<230)
[2020-12-21 18:46] LABS: Creatine Kinase 124 U/L (30-135)
--- NOTE | 2020-12-21 18:49 | DI.CT.S_ITS ---
PROCEDURE: CT ANGIO CHEST PE PROTOCOL INDICATIONS: Acute dyspnea TECHNIQUE: After the administration of intravenous contrast, 2 mm thick sections acquired from the pulmonary apices to the posterior costophrenic angles. 3-dimensional maximum intensity projection (MIP) coronal and sagittal reformats were then acquired through the thorax. For radiation dose reduction, the following was used: automated exposure control, adjustment of mA and/or kV according to patient size. COMPARISON: [facility], CT, CT ANGIO CHEST PE PROTOCOL, 09/07/2020, 13:02. FINDINGS: Image quality: Excellent. Pulmonary arteries: Pulmonary arteries are normal in size, and demonstrate no intraluminal filling defects to suggest central pulmonary embolism. Lungs and pleura: There is atelectasis bilaterally along the hiatal hernia in the medial lung bases. Dependent atelectasis is also demonstrated. No acute consolidation. No pleural effusions or pneumothorax. Central and peripheral airways are patent. Mediastinum: Heart size is enlarged, without pericardial effusion. No mediastinal or hilar adenopathy. Thoracic aorta is normal in caliber and enhancement. Esophagus is normal in caliber, with a large hiatal hernia. Bones and chest wall: No suspicious bony lesions. No definite acute fractures. There are old healed fractures of the left posterior 6th and 7th ribs. Thyroid gland demonstrates no discrete nodules. No axillary or supraclavicular adenopathy. Abdomen: Visualized upper abdominal solid organs appear normal in the early arterial phase of enhancement. IMPRESSION: 1. No evidence of pulmonary embolism. 2. Large hiatal hernia with associated bibasilar atelectasis. Dictated by: Abimael Lyon M.D. on 12/21/2020 at 20:20 Approved by: Abimael Lyon M.D. on 12/21/2020 at 20:24
[2020-12-21 18:56] LABS: Troponin I < 0.012 ng/mL (0.01-0.034)
[2020-12-21 19:02] LABS: CKMB % Relative Index 1.6 % (1.5-5.0); Creatine Kinase MB 1.94 ng/mL (<2.37)
[2020-12-21] MEDS: diphenhydrAMINE 50 MG/ML VIAL IV (19:03)
[2020-12-21] MEDS: methylPREDNISolone 125 MG/2 ML VIAL IV (19:03)
== END 2020-12-21 20:47 | disposition home or self-care (01) ==
PROVIDERS: Emergency Medicine; Emergency Provider Student in an Organized Health Care Education/Training Program; PCP Internal Medicine
DX: R06.02 Shortness of breath (principal); R00.0 Tachycardia, unspecified; R51.9 Headache, unspecified; Z20.822 Contact with and (suspected) exposure to COVID-19
CPT/HCPCS: 36415; 71046; 71275; 80053; 82550; 82553; 83605; 83880; 84484; 85025; 85379; 85610; 87635; 93005; 93010; 94640; 96374; 96375; 99284; 99285; C9803; J1200; J2930; Q9967

== ENCOUNTER → 2020-12-23 13:41 | Outpatient (CLI) | payer OTHER, MEDICAID, SELFPAY ==
[2020-08-27 13:41] VITALS: BMI 35.4
--- NOTE | 2020-12-23 | DI.RAD.S_ITS ---
PROCEDURE: XR CHEST 2V INDICATIONS: Pneumonia, unspecified organism TECHNIQUE: 2 views of the chest were acquired. COMPARISON: [facility], CR, XR CHEST 2V, 12/21/2020, 17:01. FINDINGS: Surgical changes and devices: Partially imaged left humeral fixation hardware. Lungs and pleura: Improved aeration with persistent bibasilar streaky densities, which may reflect atelectasis or resolving pneumonic infiltrates. No pleural effusions or pneumothorax. Mediastinum: Retrocardiac density, compatible with hiatal her. Heart size is normal. Bones and chest wall: No suspicious bony abnormalities. Soft tissues appear unremarkable. IMPRESSION: Improved aeration with persistent bibasilar streaky densities, which may reflect atelectasis or resolving pneumonic infiltrates. Dictated by: Cheep Chahal M.D. on 12/23/2020 at 16:04 Approved by: Chepe Chahal M.D. on 12/23/2020 at 16:06
[2020-12-23 16:28] LABS: BUN Creatinine Ratio 27.5 (6-22); Blood Urea Nitrogen 25 mg/dL (7-17); Calcium 9.9 mg/dL (8.4-10.2); Carbon Dioxide 34 mmol/L (22-32); Chloride 96 mmol/L (98-107); Estimated Glomerular Filt Rate > 60.0 mL/min (>60); Glucose 101 mg/dL (80-110); HEMOLYSIS < 15 (0-50); Potassium 3.9 mmol/L (3.4-5.1); Sodium 138 mmol/L (137-145)
== END ==
PROVIDERS: PCP Internal Medicine; Referring Provider Internal Medicine; Visit Provider Internal Medicine
DX: J18.9 Pneumonia, unspecified organism (principal); I51.89 Other ill-defined heart diseases
CPT/HCPCS: 36415; 71046; 80048

== ENCOUNTER 2020-12-29 12:29 | Emergency (ER) | payer OTHER, MEDICAID, SELFPAY ==
[2020-08-27 13:41] VITALS: BMI 35.4
[2020-12-29] VITALS (7 sets, daily range): BP systolic 113–152; BP diastolic 57–85; PULSE 72–95; RESP 21–24; TEMP 37.2; O2SAT 93–98; BMI 34.5
--- NOTE | 2020-12-29 12:57 | DI.RAD.S_ITS ---
PROCEDURE: XR CHEST 2V INDICATIONS: Shortness of breath TECHNIQUE: 2 views of the chest were acquired. COMPARISON: [facility], CR, XR CHEST 2V, 12/23/2020, 13:52. FINDINGS: Surgical changes and devices: None. Lungs and pleura: Mild interstitial pulmonary edema. No pleural effusions or pneumothorax. Mediastinum: Mediastinal contours are normal. Borderline cardiomegaly. Bones and chest wall: No suspicious bony abnormalities. Soft tissues appear unremarkable. IMPRESSION: Mild congestive heart failure. Dictated by: Michael Serrato M.D. on 12/29/2020 at 13:51 Approved by: Michael Serrato M.D. on 12/29/2020 at 13:52
[2020-12-29 13:06] LABS: Add Manual Diff / Slide Review NO; Basophils Absolute Auto 0 /uL (0-100); Basophils Percent Auto 0.5 % (0-2); Eosinophils Absolute Auto 100 /uL (0-450); Hematocrit 35.6 % (36-46); Hemoglobin 11.8 g/dL (12.0-16.0); Lymphocytes Absolute Auto 1200 /uL (1100-4500); Lymphocytes Percent Auto 12.4 % (25-40); Mean Corpuscular HGB Conc 33.2 % (30-36); Mean Corpuscular Hemoglobin 28.3 PG (26-34); Mean Corpuscular Volume 85.1 fL (80-100); Monocytes Absolute Auto 600 /uL (0-900); Monocytes Percent Auto 6.1 % (3-14); Neutrophils Absolute Auto 7500 /uL (1500-7000); Platelet Count 295 X10^3/uL (150-400); Red Blood Cell Count 4.18 X10^6/uL (4.0-5.2); Red Cell Distribution Width 15.2 % (11.6-14.8); White Blood Cell Count 9.3 X10^3/uL (4.5-11.0)
[2020-12-29 13:17] LABS: BUN Creatinine Ratio 26.6 (6-22); Blood Urea Nitrogen 25 mg/dL (7-17); Calcium 9.8 mg/dL (8.4-10.2); Carbon Dioxide 30 mmol/L (22-32); Chloride 94 mmol/L (98-107); Creatine Kinase 132 U/L (30-135); Estimated Glomerular Filt Rate 59.6 mL/min (>60); Glucose 116 mg/dL (80-110); HEMOLYSIS < 15 (0-50); Potassium 3.7 mmol/L (3.4-5.1); Sodium 133 mmol/L (137-145)
--- NOTE | 2020-12-29 13:18 | ED_ITS ---
HPI - General Adult General Chief complaint: Shortness of Breath/Dyspnea Stated complaint: SOB/Right arm pain x2 days Time Seen by Provider: 12/29/20 12:54 Source: patient Mode of arrival: Ambulatory Limitations: no limitations History of Present Illness HPI narrative: Patient is a 65-year-old female. She is here for evaluation of shortness of breath and right arm discomfort. It is been going on for the past couple days but seemed to worsen last evening. She has no chest pain. No cough. No fevers. No abdominal pain. Has had episodes of pneumonia in the past. Related Data Home Medications Medication Instructions Recorded Confirmed sennosides 8.6 mg tablet (senna) 17.2 mg PO BEDTIME PRN 09/20/18 11/24/20 potassium chloride 20 mEq 10 meq PO DAILY PRN 10/29/18 11/16/20 tablet,extended release levalbuterol tartrate 45 2 inhalation INHALATION BID gram 08/26/19 11/24/20 mcg/actuation aerosol inhaler (Xopenex HFA) diphenhydramine HCl 25 mg capsule 75 mg PO DAILY PRN 10/26/19 11/24/20 (Benadryl) omeprazole 40 mg capsule,delayed 40 mg PO BID 02/10/20 11/24/20 release lidocaine 5 % topical ointment 1 applic TOPICAL TID PRN 02/24/20 11/24/20 ketotifen fumarate 0.025 % (0.035 1 drp OPHTHALMIC (EYE) BID 03/02/20 11/24/20 %) eye drops (Zaditor) fluticasone propionate 50 1 spray INTRANASAL BID 04/02/20 11/24/20 mcg/actuation nasal spray,suspension gabapentin 600 mg tablet 600 mg PO QID tab 04/02/20 11/24/20 (Neurontin) ondansetron 8 mg disintegrating 8 mg PO Q8H PRN 06/29/20 11/24/20 tablet oxycodone 5 mg tablet 5 mg PO QID PRN 06/29/20 11/16/20 Previous Rx's Medication Instructions Recorded levalbuterol HCl 0.63 mg/3 mL 0.63 mg (3 mL) INHALATION Q8H PRN 09/11/19 solution for nebulization #90 ml methocarbamol 750 mg tablet 750 mg PO TID PRN #90 tab 09/29/19 epinephrine 0.3 mg/0.3 mL 0.3 mg (0.3 mL) IM ONCE PRN #1 ea 01/01/20 injection, auto-injector budesonide-formoterol HFA 80 2 puff INHALATION BID #10.2 gram 01/28/20 mcg-4.5 mcg/actuation aerosol inhaler (Symbicort) montelukast 10 mg tablet 10 mg PO BEDTIME PRN #90 tab 02/23/20 sumatriptan succinate 100 mg tablet 100 mg PO ONCE PRN #14 tab 02/23/20 furosemide 40 mg tablet 40 mg PO DAILY PRN #30 tab 03/04/20 diazepam 5 mg tablet 5 mg PO TID PRN #90 tab 09/10/20 Trintellix 20 mg tablet 20 mg PO DAILY #30 tab NS 09/28/20 (vortioxetine) methylprednisolone 4 mg tablets in See Rx Instructions .ROUTE 10/10/20 a dose pack .COMPLEX #21 ea quetiapine 25 mg tablet See Rx Instructions PO BID #30 tab 10/27/20 hydromorphone 2 mg tablet 2 mg PO Q4HR PRN #10 tab 11/22/20 mirtazapine 7.5 mg tablet 7.5 mg PO BEDTIME PRN #30 tab 11/24/20 Allergies Allergy/AdvReac Type Severity Reaction Status Date / Time Iodinated Contrast Media Allergy Severe Difficulty Verified 12/29/20 12:51 Breathing latex Allergy Severe Rash Verified 12/29/20 12:51 morphine [MORPHINE] Allergy Severe Anaphylaxis Verified 12/29/20 12:51 Penicillins [PENICILLINS] Allergy Severe Anaphylaxis Verified 12/29/20 12:51 Sulfa (Sulfonamide Allergy Severe RASH Verified 12/29/20 12:51 Antibiotics) [SULFA (SULFONAMIDE ANTIBIOTICS)] azithromycin Allergy Intermediate Rash Verified 12/29/20 12:51 [From ZITHROMAX Z-MARILYN] cefuroxime [From Ceftin] Allergy Intermediate Rash Verified 12/29/20 12:51 sulfamethoxazole Allergy Intermediate RASH Verified 12/29/20 12:51 [From SEPTRA] trimethoprim [From SEPTRA] Allergy Intermediate RASH Verified 12/29/20 12:51 ciprofloxacin [From Cipro] Allergy Pt does Verified 12/29/20 12:51 not remember reaction Corticosteroids Allergy Swelling Verified 12/29/20 12:51 (Glucocorticoids) of Lip/Tongue/Throat cephalexin [From Keflex] AdvReac Severe Fever, Verified 12/29/20 12:51 Asthma, Tachycardia prednisone AdvReac Severe nausea and Verified 12/29/20 12:51 feels very weak, and axious verapamil AdvReac Intermediate Asthma Verified 12/29/20 12:51 symptoms zonisamide AdvReac Intermediate Asthma Verified 12/29/20 12:51 symptoms Review of Systems Constitutional Constitutional: Reports system reviewed and no additional complaints, except as documented Cardiovascular Cardiovascular: Reports as per HPI and Reports system reviewed and no additional complaints, except as documented Respiratory Respiratory: Reports as per HPI and Reports system reviewed and no additional complaints, except as documented Gastrointestinal Gastrointestinal: Reports system reviewed and no additional complaints, except as documented Hematologic/Lymphatic On Anticoagulants: No Patient History Medical History Anemia Anxiety Asthma Chronic back pain Chronic cough Depression Femur fracture, left Fibromyalgia Fractures GERD (gastroesophageal reflux disease) Hiatal hernia Recurrent sinusitis Venous insufficiency (chronic) (peripheral) Surgical History Anesthesia History of eye surgery (~1973) History of foot surgery History of hysterectomy (~1979) History of shoulder surgery (~2011) History of tonsillectomy (~1975) Hx of bilateral cataract extraction Family History Mother Heart disease Social History marital status: number of children: 1 household members: none lives independently: Yes caregiver/support person: Yes (3 afternoons per week) pets and animals: Yes occupational status: disabled Smoking Status: Never smoker alcohol intake: never substance use type: does not use Smoking Status: Never smoker alcohol intake frequency: holidays/special occasions only Substance Use Type: does not use Exam Initial Vital Signs Initial Vital Signs: Vital Signs Temperature 98.9 F 12/29/20 12:41 Pulse Rate 84 12/29/20 12:41 Respiratory Rate 21 12/29/20 12:41 Blood Pressure 132/85 12/29/20 12:41 Pulse Oximetry 93 12/29/20 12:41 Const General: cooperative, anxious and No ill appearing HENMT Head: normal to inspection and normocephalic Resp Effort & Inspection: normal respiratory effort Auscultation: clear to auscultation bilaterally, no rales, no rhonchi and no wheezes Cardio Rate: regular rate Rhythm: regular rhythm Skin General: no rashes or lesions noted Neuro General: patient alert, patient awake and moves all extremities Extrem General: capillary refill normal Psych Other: Anxious appearing Course Orders Ordered: ED Orders 12/29/20 12:50 Basic Metabolic Panel Stat COVID19 -Nasal swab/Pre-Proc Stat Complete Blood Count AUTO DIFF Stat NT-proBNP (BNP-Adult 18+) Stat Procalcitonin Stat Troponin & CK Cardiac Panel Stat 12/29/20 12:57 XR chest 2V Stat EKG-12 Lead Stat 12/29/20 13:39 Respiratory Panel (Film Array) Stat 12/29/20 14:43 Consult to [employer] - 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 Stat Discontinued Medications Lorazepam (Lorazepam 2 Mg/Ml Inj) 1 mg IV NOW ONE Stop: 12/29/20 13:20 Last Admin: 12/29/20 13:38 Dose: 1 mg Documented by: LIBRA Vital Signs Vital signs: Vital Signs - 8 hr 12/29/20 12:41 12/29/20 12:49 12/29/20 13:00 Temperature 98.9 F Pulse Rate 84 85 93 H Respiratory Rate 21 22 Blood Pressure 132/85 152/67 H Pulse Oximetry 93 93 98 12/29/20 13:37 12/29/20 14:00 12/29/20 14:30 Temperature Pulse Rate 95 H 87 86 Respiratory Rate 24 22 Blood Pressure 135/78 Pulse Oximetry 96 95 96 Medical Decision Making Medical Records Medical records reviewed: Yes I reviewed the patient's medical records. Lab Data Lab results reviewed: Yes I reviewed the patient's lab results. Result diagrams: 12/29/20 12:50 12/29/20 12:50 Labs: Lab Results 12/29/20 12/29/20 12/29/20 Range/Units 12:50 12:50 12:50 WBC 9.3 (4.5-11.0) X10^3/uL RBC 4.18 (4.0-5.2) X10^6/uL Hgb 11.8 L (12.0-16.0) g/dL Hct 35.6 L (36-46) % MCV 85.1 (80-100) fL MCH 28.3 (26-34) PG MCHC 33.2 (30-36) % RDW 15.2 H (11.6-14.8) % Plt Count 295 (150-400) X10^3/uL Neut % (Auto) 80.0 H (50-75) % Lymph % (Auto) 12.4 L (25-40) % [place] % (Auto) 6.1 (3-14) % Eos % (Auto) 1.0 L (2-4) % Baso % (Auto) 0.5 (0-2) % Neut # (Auto) 7500 H (0422-4841) /uL Lymph # (Auto) 1200 (0120-4228) /uL [place] # (Auto) 600 (0-900) /uL Eos # (Auto) 100 (0-450) /uL Baso # (Auto) 0 (0-100) /uL Sodium 133 L (137-145) mmol/L Potassium 3.7 (3.4-5.1) mmol/L Chloride 94 L (98-107) mmol/L Carbon Dioxide 30 (22-32) mmol/L BUN 25 H (7-17) mg/dL Creatinine 0.94 (0.52-1.04) mg/dL Estimated GFR 59.6 L (>60) mL/min BUN/Creatinine Ratio 26.6 H (6-22) Glucose 116 H (80-110) mg/dL Calcium 9.8 (8.4-10.2) mg/dL Total Creatine Kinase 132 (30-135) U/L CK-MB (CK-2) 2.97 H (<2.37) ng/mL CK-MB (CK-2) Rel Index 2.3 (1.5-5.0) % Troponin I < 0.012 (0.01-0.034) ng/mL NT-Pro-B Natriuret Pep (<125) pg/mL Procalcitonin 0.05 (<0.5) ng/mL Chlamy pneumoniae PCR (Not Detect) Adenovirus (PCR) (Not Detect) B. pertussis DNA (PCR) (Not Detecte) B.parapertussis DNA PCR (Not Detecte) Coronavirus OC43 (PCR) (Not Detect) Coronavirus HKU1 (PCR) (Not Detect) Coronavirus 229E (PCR) (Not Detect) SARS-CoV-2 (PCR) Negative (Negative) Coronavirus NL63 (PCR) (Not Detect) Human Metapneumovir PCR (Not Detect) Influenza Type A (PCR) (Not Detect) Influenza Type B (PCR) (Not Detect) M. pneumoniae (PCR) (Not Detect) Parainfluenza 1 (PCR) (Not Detect) Parainfluenza 2 (PCR) (Not Detect) Parainfluenza 3 (PCR) (Not Detect) Parainfluenza 4 (PCR) (Not Detect) RSV (PCR) (Not Detect) Entero/Rhino (PCR) (Not Detect) 12/29/20 12/29/20 Range/Units 12:50 13:39 WBC (4.5-11.0) X10^3/uL RBC (4.0-5.2) X10^6/uL Hgb (12.0-16.0) g/dL Hct (36-46) % MCV (80-100) fL MCH (26-34) PG MCHC (30-36) % RDW (11.6-14.8) % Plt Count (150-400) X10^3/uL Neut % (Auto) (50-75) % Lymph % (Auto) (25-40) % [place] % (Auto) (3-14) % Eos % (Auto) (2-4) % Baso % (Auto) (0-2) % Neut # (Auto) (4464-9222) /uL Lymph # (Auto) (2347-0543) /uL [place] # (Auto) (0-900) /uL Eos # (Auto) (0-450) /uL Baso # (Auto) (0-100) /uL Sodium (137-145) mmol/L Potassium (3.4-5.1) mmol/L Chloride (98-107) mmol/L Carbon Dioxide (22-32) mmol/L BUN (7-17) mg/dL Creatinine (0.52-1.04) mg/dL Estimated GFR (>60) mL/min BUN/Creatinine Ratio (6-22) Glucose (80-110) mg/dL Calcium (8.4-10.2) mg/dL Total Creatine Kinase (30-135) U/L CK-MB (CK-2) (<2.37) ng/mL CK-MB (CK-2) Rel Index (1.5-5.0) % Troponin I (0.01-0.034) ng/mL NT-Pro-B Natriuret Pep 33 (<125) pg/mL Procalcitonin (<0.5) ng/mL Chlamy pneumoniae PCR Not detected (Not Detect) Adenovirus (PCR) Not detected (Not Detect) B. pertussis DNA (PCR) Not detected (Not Detecte) B.parapertussis DNA PCR Not detected (Not Detecte) Coronavirus OC43 (PCR) Not detected (Not Detect) Coronavirus HKU1 (PCR) Not detected (Not Detect) Coronavirus 229E (PCR) Not detected (Not Detect) SARS-CoV-2 (PCR) Not detected (Negative) Coronavirus NL63 (PCR) Not detected (Not Detect) Human Metapneumovir PCR Not detected (Not Detect) Influenza Type A (PCR) Not detected (Not Detect) Influenza Type B (PCR) Not detected (Not Detect) M. pneumoniae (PCR) Not detected (Not Detect) Parainfluenza 1 (PCR) Not detected (Not Detect) Parainfluenza 2 (PCR) Not detected (Not Detect) Parainfluenza 3 (PCR) Not detected (Not Detect) Parainfluenza 4 (PCR) Not detected (Not Detect) RSV (PCR) Not detected (Not Detect) Entero/Rhino (PCR) Not detected (Not Detect) Urine Dip Bedside Urine Glucose Negative Bedside Urine Bilirubin - Negative Bedside Urine Ketone - Negative Urine Specific [place] 1.010 Bedside Urine Occult Blood - Negative Bedside Urine pH 6.5 Bedside Urine Protein - Negative Bedside Urine Urobilinogen - Negative Bedside Urine Nitrite - Negative Bedside Urine Leukocytes - Negative Esterase Point of care testing: Urine Dip Bedside Urine Glucose Negative Bedside Urine Bilirubin - Negative Bedside Urine Ketone - Negative Urine Specific [place] 1.010 Bedside Urine Occult Blood - Negative Bedside Urine pH 6.5 Bedside Urine Protein - Negative Bedside Urine Urobilinogen - Negative Bedside Urine Nitrite - Negative Bedside Urine Leukocytes - Negative Esterase Imaging Data Chest x-ray: Radiologist's Impression: [address] [address] XRay Report Signed Patient: Sheryl Lennon MR#: [id number] : 1955 Acct:[id number] Age/Sex: 65 / F Date of Service: 12/29/20 Loc: ED Accession Number: [id number] ?? Procedure: XR chest 2V Ordering Provider: Kin Carrion D.O. PROCEDURE:? XR CHEST 2V ? INDICATIONS:? Shortness of breath ? TECHNIQUE:? 2 views of the chest were acquired.? ? COMPARISON:? [facility], , XR CHEST 2V, 12/23/2020, 13:52. ? FINDINGS:? ? Surgical changes and devices:? None.? ? Lungs and pleura:? Mild interstitial pulmonary edema.? No pleural effusions or pneumothorax.? ? Mediastinum:? Mediastinal contours are normal.? Borderline cardiomegaly. ? Bones and chest wall:? No suspicious bony abnormalities.? Soft tissues appear unremarkable.? ? IMPRESSION:? Mild congestive heart failure. ? ? Dictated by: Michael Serrato M.D. on 12/29/2020 at 13:51 ? ? Approved by: Michael Serrato M.D. on 12/29/2020 at 13:52? ECG Data Attestation: I personally reviewed and interpreted this ECG as follows: Interpretation: Sinus rhythm Ventricular rate 91 Normal axis Normal QRS Sinus arrhythmia No ST T wave changes MDM Narrative Medical decision making narrative: Patient is not hypoxic. Clear lung exam. BNP is unremarkable. Chest x-ray does show some fluid overload. She is on diuretics currently. She does have some lower extremity edema. No indication for admission to the hospital. No indication for antibiotics. Patient would like to start a beta-estefani and also have home oxygen. Inform her that she needed to talk with either her primary doctor or her educational advisor for this. We will increase her diuretic to 2 tablets in the morning and 1 tablet in the early afternoon. She was given return precautions. She expressed understanding and agreement plan. Discharge Plan Departure Patient Disposition: Home Clinical Impression: Shortness of breath Instructions: How to Manage Shortness of Breath Activity Restrictions/Additional Instructions: I recommend that you increase your diuretic from 1 tablet in the morning and 1 tablet in the afternoon to 2 tablets in the morning and 1 tablet in the afternoon. Continue the rest of your medications as directed. Contact your primary doctor and also your educational advisor for follow-up. Return to the emergency department for any new or worsening symptoms. Prescriptions: No Action Trintellix 20 mg tablet 20 mg PO DAILY Qty: 30 5RF mirtazapine 7.5 mg tablet 7.5 mg PO BEDTIME PRN (Reason: sleep) Qty: 30 2RF Hold Instructions: not currently taking potassium chloride 20 mEq tablet extended release 10 meq PO DAILY PRN (Reason: Take w/lasix) 0RF Rx Instructions: Take w/lasix prn fluticasone propionate 50 mcg/actuation spray,suspension 1 spray intranasal BID 0RF Rx Instructions: administer into each nostril gabapentin [Neurontin] 600 mg tablet 600 mg PO QID 0RF Label Comments: taking TID diazepam 5 mg tablet 5 mg PO TID PRN (Reason: Anxiety) Qty: 90 0RF levalbuterol HCl 0.63 mg/3 mL solution for nebulization 0.63 mg INHALATION Q8H PRN (Reason: shortness of breath or wheezing) Qty: 90 11RF methocarbamol 750 mg tablet 750 mg PO TID PRN (Reason: Spasms) Qty: 90 3RF Rx Instructions: PRN epinephrine 0.3 mg/0.3 mL auto-injector 0.3 mg IM ONCE PRN (Reason: Allergic Reaction) Qty: 1 11RF budesonide-formoterol [Symbicort] 80-4.5 mcg/actuation HFA aerosol inhaler 2 puff INHALATION BID Qty: 10.2 0RF quetiapine 25 mg tablet See Rx Instructions PO BID Qty: 30 0RF Rx Instructions: 1/2 tab p.o. b.i.d. as needed anxiety sumatriptan succinate 100 mg tablet 100 mg PO ONCE PRN (Reason: migraine headache) Qty: 14 3RF Rx Instructions: take at onset, may repeat in 2 hours if no relief, max daily dose 2 tabs montelukast 10 mg tablet 10 mg PO BEDTIME PRN (Reason: Allergy Symptoms) Qty: 90 3RF levalbuterol tartrate [Xopenex HFA] 45 mcg/actuation HFA aerosol inhaler 2 inhalation INHALATION BID 0RF Rx Instructions: may take every 6hrs prn at home lidocaine 5 % Ointment 1 applic TOPICAL TID PRN (Reason: pain) 0RF ketotifen fumarate [Zaditor] 0.025 % (0.035 %) Drops 1 drp OPHTHALMIC (EYE) BID 0RF furosemide 40 mg tablet 40 mg PO DAILY PRN (Reason: edema) Qty: 30 0RF Rx Instructions: Take 1 tablet daily as needed for edema sennosides [senna] 8.6 mg Tablet 17.2 mg PO BEDTIME PRN (Reason: Constipation) 0RF diphenhydramine HCl [Benadryl] 25 mg Capsule 75 mg PO DAILY PRN (Reason: Allergy Symptoms) 0RF omeprazole 40 mg Capsule,Delayed Release(Dr/Ec) 40 mg PO BID 0RF ondansetron 8 mg Tablet,Disintegrating 8 mg PO Q8H PRN (Reason: Nausea) 0RF oxycodone 5 mg Tablet 5 mg PO QID PRN (Reason: Pain (Scale Score 1-3)) 0RF methylprednisolone 4 mg tablets,dose pack See Rx Instructions .ROUTE .COMPLEX Qty: 21 0RF Rx Instructions: orally per package directions hydromorphone 2 mg Tablet 2 mg PO Q4HR PRN (Reason: Pain, Severe (7-10)) Qty: 10 0RF Referrals: Taye Mckeon MD [Primary Care Provider] -
[2020-12-29 13:22] LABS: COVID19 -Nasal RAPID Negative (Negative)
[2020-12-29 13:26] LABS: NT-proBNP (BNP-Adult 18+) 33 pg/mL (<125)
[2020-12-29 13:28] LABS: Troponin I < 0.012 ng/mL (0.01-0.034)
[2020-12-29 13:32] LABS: CKMB % Relative Index 2.3 % (1.5-5.0); Creatine Kinase MB 2.97 ng/mL (<2.37)
[2020-12-29 13:33] LABS: Procalcitonin 0.05 ng/mL (<0.5)
[2020-12-29] MEDS: LORazepam 2 MG/ML INJ 1 MG IV (13:38)
[2020-12-29 14:39] LABS: Adenovirus Not Detected (Not Detect); B. parapertussis Not Detected (Not Detecte); Bordetella pertussis Not Detected (Not Detecte); Chlamydophila pneumoniae Not Detected (Not Detect); Coronavirus 229E Not Detected (Not Detect); Coronavirus HKU1 Not Detected (Not Detect); Coronavirus NL 63 Not Detected (Not Detect); Coronavirus OC43 Not Detected (Not Detect); Human Metapneumovirus Not Detected (Not Detect); Human Rhinovirus/Enterovirus Not Detected (Not Detect); Influenza A Not Detected (Not Detect); Influenza B Not Detected (Not Detect); Mycoplasma pneumoniae Not Detected (Not Detect); Parainfluenza Virus 1 Not Detected (Not Detect); Parainfluenza Virus 2 Not Detected (Not Detect); Parainfluenza Virus 3 Not Detected (Not Detect); Parainfluenza Virus 4 Not Detected (Not Detect); Respiratory Syncytial Virus Not Detected (Not Detect); SARS- CoV-2 Not Detected (Not Detecte)
== END 2020-12-29 15:28 | disposition home or self-care (01) ==
PROVIDERS: Emergency Provider Emergency Medicine; PCP Internal Medicine
DX: R06.02 Shortness of breath (principal); R60.0 Localized edema; M79.601 Pain in right arm; I49.8 Other specified cardiac arrhythmias; Z20.822 Contact with and (suspected) exposure to COVID-19
CPT/HCPCS: 36415; 71046; 80048; 81003; 82550; 82553; 83880; 84145; 84484; 85025; 87633; 87635; 93005; 96374; 99281; 99284; C9803; J2060

== ENCOUNTER 2020-12-29 19:01 | Emergency (ER) | payer OTHER, MEDICAID, SELFPAY ==
[2020-08-27 13:41] VITALS: BMI 35.4
[2020-12-29 19:01] VITALS: BP 134/75; PULSE 87; RESP 22; TEMP 36.6; O2SAT 95; BMI 34.5
--- NOTE | 2020-12-29 19:09 | PC.NURSE ---
No rooms available at this time in the ER. Pt informed that she would have to wait and she was applaud that she would have to sit in the lobby. I reassured her that we pull pts back d/t acuity and she would be getting a bed as soon as we could and if anything changes in her symptoms to let a staff member know. She states that she needs to be at the [facility] ER and demanded that we call an ambulance to send her there. I informed her that the MD would evaluate her and order the necessary tests then we would take the next steps accordingly. She was still not accepting of this answer. I again apologized and she got up on her own accord and walked without assistance to the .
--- NOTE | 2020-12-29 19:38 | ED.SOB ---
HPI - SOB/Dyspnea General Chief Complaint: Shortness of Breath/Dyspnea Stated Complaint: chest tightness/sob Time Seen by Provider: 12/29/20 19:38 Source: patient and EMS Mode of arrival: EMS Limitations: no limitations History of Present Illness HPI Narrative: 65-year-old female nonsmoker with history of asthma, shortness of breath, large hiatal hernia returns for the 2nd time today. She was here earlier and had a significant evaluation of her report of a few days of worsening shortness of breath including labs, imaging and EKG. Patient was found to have some slight fluid overload and had recommendation to increase her diuretic. Patient reports that when she was discharged she had been in contact with her manufacturing test engineer, whom is at [facility] and was encouraged to come back to see us. The patient denies any change in her symptoms since the time of discharge. She has no fever or chills and denies any pain. I was present during her triage and performed a brief physical exam and entered a large order set. She was taken back to the waiting room and signed out Against Medical Advice soon thereafter. Related Data Home Medications Medication Instructions Recorded Confirmed sennosides 8.6 mg tablet (senna) 17.2 mg PO BEDTIME PRN 09/20/18 11/24/20 potassium chloride 20 mEq 10 meq PO DAILY PRN 10/29/18 11/16/20 tablet,extended release levalbuterol tartrate 45 2 inhalation INHALATION BID gram 08/26/19 11/24/20 mcg/actuation aerosol inhaler (Xopenex HFA) diphenhydramine HCl 25 mg capsule 75 mg PO DAILY PRN 10/26/19 11/24/20 (Benadryl) omeprazole 40 mg capsule,delayed 40 mg PO BID 02/10/20 11/24/20 release lidocaine 5 % topical ointment 1 applic TOPICAL TID PRN 02/24/20 11/24/20 ketotifen fumarate 0.025 % (0.035 1 drp OPHTHALMIC (EYE) BID 03/02/20 11/24/20 %) eye drops (Zaditor) fluticasone propionate 50 1 spray INTRANASAL BID 04/02/20 11/24/20 mcg/actuation nasal spray,suspension gabapentin 600 mg tablet 600 mg PO QID tab 04/02/20 11/24/20 (Neurontin) ondansetron 8 mg disintegrating 8 mg PO Q8H PRN 06/29/20 11/24/20 tablet oxycodone 5 mg tablet 5 mg PO QID PRN 06/29/20 11/16/20 Previous Rx's Medication Instructions Recorded levalbuterol HCl 0.63 mg/3 mL 0.63 mg (3 mL) INHALATION Q8H PRN 09/11/19 solution for nebulization #90 ml methocarbamol 750 mg tablet 750 mg PO TID PRN #90 tab 09/29/19 epinephrine 0.3 mg/0.3 mL 0.3 mg (0.3 mL) IM ONCE PRN #1 ea 01/01/20 injection, auto-injector budesonide-formoterol HFA 80 2 puff INHALATION BID #10.2 gram 01/28/20 mcg-4.5 mcg/actuation aerosol inhaler (Symbicort) montelukast 10 mg tablet 10 mg PO BEDTIME PRN #90 tab 02/23/20 sumatriptan succinate 100 mg tablet 100 mg PO ONCE PRN #14 tab 02/23/20 furosemide 40 mg tablet 40 mg PO DAILY PRN #30 tab 03/04/20 diazepam 5 mg tablet 5 mg PO TID PRN #90 tab 09/10/20 Trintellix 20 mg tablet 20 mg PO DAILY #30 tab NS 09/28/20 (vortioxetine) methylprednisolone 4 mg tablets in See Rx Instructions .ROUTE 10/10/20 a dose pack .COMPLEX #21 ea quetiapine 25 mg tablet See Rx Instructions PO BID #30 tab 10/27/20 hydromorphone 2 mg tablet 2 mg PO Q4HR PRN #10 tab 11/22/20 mirtazapine 7.5 mg tablet 7.5 mg PO BEDTIME PRN #30 tab 11/24/20 Allergies Allergy/AdvReac Type Severity Reaction Status Date / Time Iodinated Contrast Media Allergy Severe Difficulty Verified 12/29/20 12:51 Breathing latex Allergy Severe Rash Verified 12/29/20 12:51 morphine [MORPHINE] Allergy Severe Anaphylaxis Verified 12/29/20 12:51 Penicillins [PENICILLINS] Allergy Severe Anaphylaxis Verified 12/29/20 12:51 Sulfa (Sulfonamide Allergy Severe RASH Verified 12/29/20 12:51 Antibiotics) [SULFA (SULFONAMIDE ANTIBIOTICS)] azithromycin Allergy Intermediate Rash Verified 12/29/20 12:51 [From ZITHROMAX Z-MARILYN] cefuroxime [From Ceftin] Allergy Intermediate Rash Verified 12/29/20 12:51 sulfamethoxazole Allergy Intermediate RASH Verified 12/29/20 12:51 [From SEPTRA] trimethoprim [From SEPTRA] Allergy Intermediate RASH Verified 12/29/20 12:51 ciprofloxacin [From Cipro] Allergy Pt does Verified 12/29/20 12:51 not remember reaction Corticosteroids Allergy Swelling Verified 12/29/20 12:51 (Glucocorticoids) of Lip/Tongue/Throat cephalexin [From Keflex] AdvReac Severe Fever, Verified 12/29/20 12:51 Asthma, Tachycardia prednisone AdvReac Severe nausea and Verified 12/29/20 12:51 feels very weak, and axious verapamil AdvReac Intermediate Asthma Verified 12/29/20 12:51 symptoms zonisamide AdvReac Intermediate Asthma Verified 12/29/20 12:51 symptoms Review of Systems Review of Systems Narrative: GENERAL: Denies chills, fatigue, malaise, fever, sweats. HEENT: Denies sinus pain, ear pain, sore throat, difficulty swallowing, dizziness. RESPIRATORY: See HPI CARDIOVASCULAR: Denies chest pain, palpitations, orthopnea, edema, GASTROINTESTINAL: Denies nausea, vomiting, abdominal pain, diarrhea, constipation, melena. : Denies dysuria, frequency, incontinence, hematuria, urinary retention. MUSCULOSKELETAL: denies weakness, joint pain, or bony pain SKIN: Denies rash, skin lesions, or other NEUROLOGIC: Denies weakness, headache, numbness, change in speech, confusion, seizures, incoordination. PSYCHIATRIC: No concerning psychosocial issues. 12 point review of systems is negative except for those stated above Patient History Medical History Anemia Anxiety Asthma Chronic back pain Chronic cough Depression Femur fracture, left Fibromyalgia Fractures GERD (gastroesophageal reflux disease) Hiatal hernia Recurrent sinusitis Venous insufficiency (chronic) (peripheral) Surgical History Anesthesia History of eye surgery (~1973) History of foot surgery History of hysterectomy (~1979) History of shoulder surgery (~2011) History of tonsillectomy (~1975) Hx of bilateral cataract extraction Family History Mother Heart disease Social History marital status: number of children: 1 household members: none lives independently: Yes caregiver/support person: Yes (3 afternoons per week) pets and animals: Yes occupational status: disabled Smoking Status: Never smoker alcohol intake: never substance use type: does not use Smoking Status: Never smoker alcohol intake frequency: holidays/special occasions only Substance Use Type: does not use Exam Narrative Exam Narrative: GEN: AOx3 and in in no obvious respiratory distress, hypoxia, tachypnea, use of accessory muscles EYES: Pupils are equal, round, and reactive to light and accommodation. Extraoccular muscles are intact bilaterally. There is no subconjunctival hemorrhage or exudate. CHEST: Lungs are clear to auscultation bilaterally and free of wheezes, rales, or rhonchi. Heart rate is regular rhythm, there are no murmurs, clicks, rubs, or gallops. There is no chest wall tenderness. ABD: Abdomen is soft and nontender. There is no guarding or rebound. Bowel sounds are normal in all 4 quadrants. There is no mass or organomegaly. EXT: Full painless ROM of all extremities with no loss of sensation or strength. SKIN: Warm, pink, and dry. No erythema or rash Initial Vital Signs Initial Vital Signs: Vital Signs Temperature 97.9 F 12/29/20 19:01 Pulse Rate 87 12/29/20 19:01 Respiratory Rate 22 12/29/20 19:01 Blood Pressure 134/75 12/29/20 19:01 Pulse Oximetry 95 12/29/20 19:01 Course Vital Signs Vital signs: Vital Signs - 8 hr 12/29/20 19:01 Temperature 97.9 F Pulse Rate 87 Respiratory Rate 22 Blood Pressure 134/75 Pulse Oximetry 95 Discharge Plan Departure Patient Disposition: Left Against Medical Advice Clinical Impression: Left against medical advice Prescriptions: No Action Trintellix 20 mg tablet 20 mg PO DAILY Qty: 30 5RF mirtazapine 7.5 mg tablet 7.5 mg PO BEDTIME PRN (Reason: sleep) Qty: 30 2RF Hold Instructions: not currently taking potassium chloride 20 mEq tablet extended release 10 meq PO DAILY PRN (Reason: Take w/lasix) 0RF Rx Instructions: Take w/lasix prn fluticasone propionate 50 mcg/actuation spray,suspension 1 spray intranasal BID 0RF Rx Instructions: administer into each nostril gabapentin [Neurontin] 600 mg tablet 600 mg PO QID 0RF Label Comments: taking TID diazepam 5 mg tablet 5 mg PO TID PRN (Reason: Anxiety) Qty: 90 0RF levalbuterol HCl 0.63 mg/3 mL solution for nebulization 0.63 mg INHALATION Q8H PRN (Reason: shortness of breath or wheezing) Qty: 90 11RF methocarbamol 750 mg tablet 750 mg PO TID PRN (Reason: Spasms) Qty: 90 3RF Rx Instructions: PRN epinephrine 0.3 mg/0.3 mL auto-injector 0.3 mg IM ONCE PRN (Reason: Allergic Reaction) Qty: 1 11RF budesonide-formoterol [Symbicort] 80-4.5 mcg/actuation HFA aerosol inhaler 2 puff INHALATION BID Qty: 10.2 0RF quetiapine 25 mg tablet See Rx Instructions PO BID Qty: 30 0RF Rx Instructions: 1/2 tab p.o. b.i.d. as needed anxiety sumatriptan succinate 100 mg tablet 100 mg PO ONCE PRN (Reason: migraine headache) Qty: 14 3RF Rx Instructions: take at onset, may repeat in 2 hours if no relief, max daily dose 2 tabs montelukast 10 mg tablet 10 mg PO BEDTIME PRN (Reason: Allergy Symptoms) Qty: 90 3RF levalbuterol tartrate [Xopenex HFA] 45 mcg/actuation HFA aerosol inhaler 2 inhalation INHALATION BID 0RF Rx Instructions: may take every 6hrs prn at home lidocaine 5 % Ointment 1 applic TOPICAL TID PRN (Reason: pain) 0RF ketotifen fumarate [Zaditor] 0.025 % (0.035 %) Drops 1 drp OPHTHALMIC (EYE) BID 0RF furosemide 40 mg tablet 40 mg PO DAILY PRN (Reason: edema) Qty: 30 0RF Rx Instructions: Take 1 tablet daily as needed for edema sennosides [senna] 8.6 mg Tablet 17.2 mg PO BEDTIME PRN (Reason: Constipation) 0RF diphenhydramine HCl [Benadryl] 25 mg Capsule 75 mg PO DAILY PRN (Reason: Allergy Symptoms) 0RF omeprazole 40 mg Capsule,Delayed Release(Dr/Ec) 40 mg PO BID 0RF ondansetron 8 mg Tablet,Disintegrating 8 mg PO Q8H PRN (Reason: Nausea) 0RF oxycodone 5 mg Tablet 5 mg PO QID PRN (Reason: Pain (Scale Score 1-3)) 0RF methylprednisolone 4 mg tablets,dose pack See Rx Instructions .ROUTE .COMPLEX Qty: 21 0RF Rx Instructions: orally per package directions hydromorphone 2 mg Tablet 2 mg PO Q4HR PRN (Reason: Pain, Severe (7-10)) Qty: 10 0RF Referrals: Taye Mckeon MD [Primary Care Provider] - Stand Alone Forms: Against Medical Advice
== END 2020-12-29 19:45 | disposition left against medical advice (07) ==
PROVIDERS: Emergency Provider Emergency Medicine; PCP Internal Medicine
DX: R06.02 Shortness of breath (principal); R07.9 Chest pain, unspecified

== ENCOUNTER 2021-01-12 11:15 | Emergency (ER) | payer OTHER, MEDICAID, SELFPAY ==
[2020-08-27 13:41] VITALS: BMI 35.4
[2021-01-12 11:43] VITALS: BP 118/53; PULSE 80; RESP 18; TEMP 36.5; O2SAT 96; BMI 35.4
--- NOTE | 2021-01-12 14:49 | ED_ITS ---
HPI - Allergic Reaction General Chief complaint: Allergic Reaction Stated complaint: Reaction to contrast from Sunday Time Seen by Provider: 01/12/21 14:49 Source: patient Mode of arrival: Ambulatory Limitations: no limitations History of Present Illness HPI narrative: This is a 65-year-old female who comes emergency department with concern for reaction to IV contrast. Patient had a cardiac catheterization she was catheterized to her right groin as well as her right upper arm. Patient states she developed redness, swelling and itching in her right groin, her right arm, her left arm and her left groin and has been spreading towards the trunk. She states it is quite pruritic. She has not had any fevers. She just has not felt quite right. This procedure was on Sunday. Today is Sunday. Patient did feel tight and wheezy in her chest and her throat but states that has mildly improved. She has had some nausea but no vomiting. She denies diarrhea. She does states she has had some headache. She just feels itchy in general. Patient states she has had a reaction to oral contrast but has tolerated IV contrast in the past. Patient was in contact with her cardiology team asked her to come for evaluation but she came here locally secondary to transportation issues. Dr. 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 Patient has been taking Benadryl 75 mg. She took a total of 9 tablets over 17 hours. She does typically take methylprednisolone 6 mg daily longstanding. Related Data Home Medications Medication Instructions Recorded Confirmed sennosides 8.6 mg tablet (senna) 17.2 mg PO BEDTIME PRN 09/20/18 01/04/21 potassium chloride 20 mEq 10 meq PO DAILY PRN 10/29/18 01/04/21 tablet,extended release levalbuterol tartrate 45 2 inhalation INHALATION BID gram 08/26/19 01/04/21 mcg/actuation aerosol inhaler (Xopenex HFA) diphenhydramine HCl 25 mg capsule 75 mg PO DAILY PRN 10/26/19 01/04/21 (Benadryl) omeprazole 40 mg capsule,delayed 40 mg PO BID 02/10/20 01/04/21 release lidocaine 5 % topical ointment 1 applic TOPICAL TID PRN 02/24/20 01/04/21 ketotifen fumarate 0.025 % (0.035 1 drp OPHTHALMIC (EYE) BID 03/02/20 01/04/21 %) eye drops (Zaditor) fluticasone propionate 50 1 spray INTRANASAL BID 04/02/20 01/04/21 mcg/actuation nasal spray,suspension ondansetron 8 mg disintegrating 8 mg PO Q8H PRN 06/29/20 01/04/21 tablet oxycodone 5 mg tablet 5 mg PO QID PRN 06/29/20 01/04/21 Previous Rx's Medication Instructions Recorded levalbuterol HCl 0.63 mg/3 mL 0.63 mg (3 mL) INHALATION Q8H PRN 09/11/19 solution for nebulization #90 ml methocarbamol 750 mg tablet 750 mg PO TID PRN #90 tab 09/29/19 epinephrine 0.3 mg/0.3 mL 0.3 mg (0.3 mL) IM ONCE PRN #1 ea 01/01/20 injection, auto-injector budesonide-formoterol HFA 80 2 puff INHALATION BID #10.2 gram 01/28/20 mcg-4.5 mcg/actuation aerosol inhaler (Symbicort) montelukast 10 mg tablet 10 mg PO BEDTIME PRN #90 tab 02/23/20 sumatriptan succinate 100 mg tablet 100 mg PO ONCE PRN #14 tab 02/23/20 furosemide 40 mg tablet 40 mg PO DAILY PRN #30 tab 03/04/20 diazepam 5 mg tablet 5 mg PO TID PRN #90 tab 09/10/20 Trintellix 20 mg tablet 20 mg PO DAILY #30 tab NS 09/28/20 (vortioxetine) quetiapine 25 mg tablet See Rx Instructions PO BID #30 tab 10/27/20 hydromorphone 2 mg tablet 2 mg PO Q4HR PRN #10 tab 11/22/20 mirtazapine 7.5 mg tablet 7.5 mg PO BEDTIME PRN #30 tab 11/24/20 famotidine 20 mg tablet (Pepcid) 20 mg PO BID #10 tab 01/12/21 methylprednisolone 4 mg tablet 4 mg PO DAILY #5 tab 01/12/21 Allergies Allergy/AdvReac Type Severity Reaction Status Date / Time Iodinated Contrast Media Allergy Severe Difficulty Verified 01/12/21 11:43 Breathing latex Allergy Severe Rash Verified 01/12/21 11:43 morphine [MORPHINE] Allergy Severe Anaphylaxis Verified 01/12/21 11:43 Penicillins [PENICILLINS] Allergy Severe Anaphylaxis Verified 01/12/21 11:43 Sulfa (Sulfonamide Allergy Severe RASH Verified 01/12/21 11:43 Antibiotics) [SULFA (SULFONAMIDE ANTIBIOTICS)] azithromycin Allergy Intermediate Rash Verified 01/12/21 11:43 [From ZITHROMAX Z-MARILYN] cefuroxime [From Ceftin] Allergy Intermediate Rash Verified 01/12/21 11:43 sulfamethoxazole Allergy Intermediate RASH Verified 01/12/21 11:43 [From SEPTRA] trimethoprim [From SEPTRA] Allergy Intermediate RASH Verified 01/12/21 11:43 ciprofloxacin [From Cipro] Allergy Pt does Verified 01/12/21 11:43 not remember reaction Corticosteroids Allergy Swelling Verified 01/12/21 11:43 (Glucocorticoids) of Lip/Tongue/Throat cephalexin [From Keflex] AdvReac Severe Fever, Verified 01/12/21 11:43 Asthma, Tachycardia prednisone AdvReac Severe nausea and Verified 01/12/21 11:43 feels very weak, and axious verapamil AdvReac Intermediate Asthma Verified 01/12/21 11:43 symptoms zonisamide AdvReac Intermediate Asthma Verified 01/12/21 11:43 symptoms Review of Systems Review of Systems ROS Unobtainable: All systems reviewed & are unremarkable except as noted in HPI and below Patient History Medical History Anemia Anxiety Asthma Chronic back pain Chronic cough Depression Femur fracture, left Fibromyalgia Fractures GERD (gastroesophageal reflux disease) Hiatal hernia Recurrent sinusitis Venous insufficiency (chronic) (peripheral) Surgical History Anesthesia History of eye surgery (~1973) History of foot surgery History of hysterectomy (~1979) History of shoulder surgery (~2011) History of tonsillectomy (~1975) Hx of bilateral cataract extraction Family History Mother Heart disease Social History marital status: number of children: 1 household members: none lives independently: Yes caregiver/support person: Yes (3 afternoons per week) pets and animals: Yes occupational status: disabled Smoking Status: Never smoker alcohol intake: never substance use type: does not use Smoking Status: Never smoker alcohol intake frequency: holidays/special occasions only Substance Use Type: does not use Exam Narrative Exam Narrative: GEN: well nourished, well appearing female, alert and oriented x 3, patient appears to be in mild distress. HEENT: Atraumatic, pupils are equal round reactive to light, extraocular movements are intact, nares are clear, throat is clear without any exudates, erythema, tonsillar enlargement or uvular deviation. Normal speech. No difficulty swallowing secretions. HEART: Regular rate and rhythm without murmur, clicks, rubs. LUNGS:Lungs clear to auscultation, no wheezes, rales, crackles, chest moves symmetrically. No tachypnea or accessory muscle use. ABD:bowel sounds normal, soft, non-tender, no guarding, rebound, rigidity, no masses noted, no hepatosplenomegaly :No CVA tenderness MSCL: Non-tender, no muscle atrophy, muscles strength 5/5 upper and lower extre mities, full range of motion NEURO:CN 2-12 intact, sensation normal, normal gait. SKIN: Patient has erythematous raised wheals on her right groin surrounding her access site and tracking towards the lower abdomen. She also has similar changes on her left upper thigh and tracking towards the groin. Also noted are about 3 cm of erythematous raised wheals at the left inner elbow and and about 4-5 cm of similar changes in her left upper inner arm. Initial Vital Signs Initial Vital Signs: Vital Signs Temperature 97.7 F 01/12/21 11:43 Pulse Rate 80 01/12/21 11:43 Respiratory Rate 18 01/12/21 11:43 Blood Pressure 118/53 L 01/12/21 11:43 Pulse Oximetry 96 01/12/21 11:43 Course Orders Ordered: Discontinued Medications Diphenhydramine HCl (Diphenhydramine 50 Mg/Ml Vial) 50 mg IV NOW ONE Stop: 01/12/21 15:09 Last Admin: 01/12/21 15:52 Dose: 50 mg Documented by: ERIK Famotidine (Famotidine 20 Mg/2 Ml Vial) 20 mg IV NOW ONE Stop: 01/12/21 15:09 Last Admin: 01/12/21 15:52 Dose: 20 mg Documented by: ERIK Methylprednisolone (Methylprednisolone 125 Mg/2 Ml Vial) 125 mg IV NOW ONE Stop: 01/12/21 15:09 Last Admin: 01/12/21 15:52 Dose: 125 mg Documented by: ERIK Vital Signs Vital signs: Vital Signs - 8 hr 01/12/21 11:43 01/12/21 15:15 01/12/21 16:15 Temperature 97.7 F Pulse Rate 80 63 60 Respiratory Rate 18 18 Blood Pressure 118/53 L 106/58 L 109/56 L Pulse Oximetry 96 95 96 MDM - Allergic Reaction MDM Narrative Medical decision making narrative: This is a 65-year-old female with known oral contrast allergy who had IV contrast on Sunday and the following day began having a rash like changes initially in her left groin close to her access site but also on all 4 extremities and now on her lower abdomen. They do appear to be more similar to wheals the pattern is somewhat atypical for an allergic reaction but does appear to be an allergic type rash. She does not appear to be having anaphylaxis but more of a delayed reaction. She has tried Benadryl which has somewhat helpful for symptoms but is not resolving them. She is on methylprednisolone daily so her dose was increased for the short term. Prednisone and Pepcid were included. Discharge Plan Departure Patient Disposition: Home Clinical Impression: Allergic reaction Instructions: DI for Hives Activity Restrictions/Additional Instructions: Follow-up with your physician for recheck. Discussed with them you should likely be premedicated for any future IV contrast. This typically include Solu-Medrol and Benadryl. Take steroids daily until gone. Take in the methylprednisolone in addition to your normal methylprednisolone dose. You may take 2 tablets of Benadryl every 6 hours as needed for symptoms. Take Pepcid twice daily until gone. Prescription sent to [facility] in [place]. Piece return for new or worsening swelling of her throat, tongue, airway, chest or wheezing, passing out, persistent vomiting, rapidly worsening rash other new or concerning symptoms. Prescriptions: New methylprednisolone 4 mg tablet 4 mg PO DAILY Qty: 5 0RF famotidine [Pepcid] 20 mg tablet 20 mg PO BID Qty: 10 0RF No Action Trintellix 20 mg tablet 20 mg PO DAILY Qty: 30 5RF mirtazapine 7.5 mg tablet 7.5 mg PO BEDTIME PRN (Reason: sleep) Qty: 30 2RF Hold Instructions: not currently taking potassium chloride 20 mEq tablet extended release 10 meq PO DAILY PRN (Reason: Take w/lasix) 0RF Rx Instructions: Take w/lasix prn fluticasone propionate 50 mcg/actuation spray,suspension 1 spray intranasal BID 0RF Rx Instructions: administer into each nostril diazepam 5 mg tablet 5 mg PO TID PRN (Reason: Anxiety) Qty: 90 0RF levalbuterol HCl 0.63 mg/3 mL solution for nebulization 0.63 mg INHALATION Q8H PRN (Reason: shortness of breath or wheezing) Qty: 90 11RF methocarbamol 750 mg tablet 750 mg PO TID PRN (Reason: Spasms) Qty: 90 3RF Rx Instructions: PRN epinephrine 0.3 mg/0.3 mL auto-injector 0.3 mg IM ONCE PRN (Reason: Allergic Reaction) Qty: 1 11RF budesonide-formoterol [Symbicort] 80-4.5 mcg/actuation HFA aerosol inhaler 2 puff INHALATION BID Qty: 10.2 0RF quetiapine 25 mg tablet See Rx Instructions PO BID Qty: 30 0RF Rx Instructions: 1/2 tab p.o. b.i.d. as needed anxiety sumatriptan succinate 100 mg tablet 100 mg PO ONCE PRN (Reason: migraine headache) Qty: 14 3RF Rx Instructions: take at onset, may repeat in 2 hours if no relief, max daily dose 2 tabs montelukast 10 mg tablet 10 mg PO BEDTIME PRN (Reason: Allergy Symptoms) Qty: 90 3RF levalbuterol tartrate [Xopenex HFA] 45 mcg/actuation HFA aerosol inhaler 2 inhalation INHALATION BID 0RF Rx Instructions: may take every 6hrs prn at home lidocaine 5 % Ointment 1 applic TOPICAL TID PRN (Reason: pain) 0RF ketotifen fumarate [Zaditor] 0.025 % (0.035 %) Drops 1 drp OPHTHALMIC (EYE) BID 0RF furosemide 40 mg tablet 40 mg PO DAILY PRN (Reason: edema) Qty: 30 0RF Rx Instructions: Take 1 tablet daily as needed for edema sennosides [senna] 8.6 mg Tablet 17.2 mg PO BEDTIME PRN (Reason: Constipation) 0RF diphenhydramine HCl [Benadryl] 25 mg Capsule 75 mg PO DAILY PRN (Reason: Allergy Symptoms) 0RF omeprazole 40 mg Capsule,Delayed Release(Dr/Ec) 40 mg PO BID 0RF ondansetron 8 mg Tablet,Disintegrating 8 mg PO Q8H PRN (Reason: Nausea) 0RF oxycodone 5 mg Tablet 5 mg PO QID PRN (Reason: Pain (Scale Score 1-3)) 0RF hydromorphone 2 mg Tablet 2 mg PO Q4HR PRN (Reason: Pain, Severe (7-10)) Qty: 10 0RF Referrals: Taye Mckeon MD [Primary Care Provider] -
[2021-01-12 15:15] VITALS: BP 106/58; PULSE 63; O2SAT 95
[2021-01-12] MEDS: diphenhydrAMINE 50 MG/ML VIAL IV (15:52)
[2021-01-12] MEDS: FAMOTIDINE 20 MG/2 ML VIAL IV (15:52)
[2021-01-12] MEDS: methylPREDNISolone 125 MG/2 ML VIAL IV (15:52)
[2021-01-12 16:15] VITALS: BP 109/56; PULSE 60; RESP 18; O2SAT 96
== END 2021-01-12 16:16 | disposition home or self-care (01) ==
PROVIDERS: Emergency Provider Emergency Medicine; PCP Internal Medicine
DX: L27.0 Generalized skin eruption due to drugs and medicaments taken internally (principal); T50.8X5A Adverse effect of diagnostic agents, initial encounter
CPT/HCPCS: 96374; 96375; 99283; 99284; J1200; J2930

== ENCOUNTER 2021-01-13 11:55 | Emergency (ER) | payer OTHER, MEDICAID, SELFPAY ==
[2020-08-27 13:41] VITALS: BMI 35.4
[2021-01-13] VITALS (7 sets, daily range): BP systolic 109–129; BP diastolic 60–66; PULSE 71–84; RESP 18–22; TEMP 36.8; O2SAT 93–98; BMI 35.4
--- NOTE | 2021-01-13 12:35 | DI.RAD.S_ITS ---
PROCEDURE: XR CHEST 1V INDICATIONS: sob TECHNIQUE: One view of the chest was acquired. COMPARISON: [facility], CT, CT ANGIO CHEST PE PROTOCOL, 12/21/2020, 19:09. [facility], CR, XR CHEST 2V, 12/23/2020, 13:52. [facility], CR, XR CHEST 2V, 12/29/2020, 12:54. FINDINGS: Surgical changes and devices: None. Lungs and pleura: Mild kyphotic positioning is noted. Retrocardiac opacity is consistent with a known hiatal hernia. Lungs are clear. No pleural effusions or pneumothorax. Mediastinum: Mediastinal contours appear normal. Heart size is stable. Bones and chest wall: No suspicious bony lesions. Overlying soft tissues appear unremarkable. IMPRESSION: No acute cardiopulmonary abnormality. Dictated by: Cole Wells M.D. on 01/13/2021 at 13:24 Approved by: Cole Wells M.D. on 01/13/2021 at 13:27
--- NOTE | 2021-01-13 12:54 | CM.SWNOTE ---
EXECUTIVE MARKETING ASSISTANT Assessment Note EXECUTIVE MARKETING ASSISTANT receives consult and enters room to meet with patient. Patient is 65 y/o female who presents to the ED today with concern for SOB. Patient presented to the ED yesterday with similar concerns. Patient is a familiar face to this ED and has at least 20 ED encounters in the last 12 months. Patient presents as A/Ox4, anxious, full range congruent with mood. Patient endorses that she took her service dog for a walk today and states she had to stop several times due to her SOB and she came to the ED. Patient states that her PCP is Dr. Mckeon at the [facility], patient endorses that she had an appt scheduled but she cancelled it. Patient endorses that she is hoping to get oxygen. While EXECUTIVE MARKETING ASSISTANT in room with patient, patient's oxygen was 94-96%. EXECUTIVE MARKETING ASSISTANT re-assured patient of this and offered to contact PCP to get appt scheduled. Patient endorses that she has [facility] case management. Patient endorses that her business case analyst is Gina Navarrete (Ph. # [phone]) Patient endorses that she fired her caregiver about a year ago due to concern for COVID and [facility] is currently searching for new caregiver for patient. Patient endorses independence with all ADLs but reports struggling with cleaning upkeep in her home. Patient endorses that she drives as well. Patient endorses that she lives alone but lives upstairs and at times struggles with the stairs due to her SOB and Asthma. Patient endorses that she has a daughter and grandchildren that live near by but they are busy with their lives, health, work and or school. Patient endorses severe anxiety and states that she was going to [facility] but they no longer accept her [employer]vantage and Medicaid insurance. Patient states that she was also seeing [facility] but reports that [facility] may be ending services soon. EXECUTIVE MARKETING ASSISTANT states that with patient's consent, EXECUTIVE MARKETING ASSISTANT can reach out to PCP office, [facility], find [employer] providers and find out about oxygen tanks. Patient provides consent. EXECUTIVE MARKETING ASSISTANT calls [facility] Rehab Department Manager Gina who reports that there are no current caregivers due to a caregiver shortage. It is reported taht patient has VERA and has hours for caregivers and her business case analyst is seeking for a caregiver for patient when there are openings. Gina reports that patient will have a new business case analyst Diana Gill. Gina endorses that EXECUTIVE MARKETING ASSISTANT can provide this information to patient. EXECUTIVE MARKETING ASSISTANT calls [facility] after [facility] providers list for [facility] and seeing them listed. It was reported that the facility is not contracted with Medicaid and cannot accept patients with Medicaid as primary or secondary insurances. It is recommended that patient try [facility], [facility], [facility], [facility] or [facility]. EXECUTIVE MARKETING ASSISTANT calls [facility] in [place] and schedules ED f/u appt for patient for 01/18/21 at [address] office of patient's presentations to ED and that she is seeking oxygen and a change in her anxiety medication. EXECUTIVE MARKETING ASSISTANT provides patient with PCP f/u appt information, providers that accept her insurance, and [facility] business case analyststable manager information. Plan: Patient to d/c to home when medically clear with PCP f/u next week. RAMAKRISHNA Napier
[2021-01-13 13:10] LABS: Add Manual Diff / Slide Review NO; Basophils Absolute Auto 0 /uL (0-100); Eosinophils Absolute Auto 0 /uL (0-450); Eosinophils Percent Auto 0.1 % (2-4); Hematocrit 31.5 % (36-46); Hemoglobin 10.6 g/dL (12.0-16.0); Lymphocytes Absolute Auto 1000 /uL (1100-4500); Lymphocytes Percent Auto 8.2 % (25-40); Mean Corpuscular HGB Conc 33.7 % (30-36); Monocytes Absolute Auto 500 /uL (0-900); Monocytes Percent Auto 3.7 % (3-14); Neutrophils Absolute Auto 11100 /uL (1500-7000); Platelet Count 279 X10^3/uL (150-400); Red Blood Cell Count 3.66 X10^6/uL (4.0-5.2); Red Cell Distribution Width 15.3 % (11.6-14.8); White Blood Cell Count 12.6 X10^3/uL (4.5-11.0)
[2021-01-13 13:18] LABS: Prothrombin Time 11.1 SECONDS (10.1-12.7)
[2021-01-13 13:21] LABS: PTT Partial Thromboplastin Tim 24 SECONDS (26.4-36.2)
[2021-01-13 13:23] LABS: BUN Creatinine Ratio 39.8 (6-22); Blood Urea Nitrogen 35 mg/dL (7-17); Calcium 9.1 mg/dL (8.4-10.2); Carbon Dioxide 29 mmol/L (22-32); Chloride 100 mmol/L (98-107); Creatine Kinase 110 U/L (30-135); Estimated Glomerular Filt Rate > 60.0 mL/min (>60); Glucose 117 mg/dL (80-110); HEMOLYSIS 39 (0-50); Magnesium 2.2 mg/dL (1.6-2.3); Potassium 3.4 mmol/L (3.4-5.1); Sodium 139 mmol/L (137-145)
[2021-01-13 13:34] LABS: NT-proBNP (BNP-Adult 18+) 146 pg/mL (<125); Troponin I < 0.012 ng/mL (0.01-0.034)
[2021-01-13 13:38] LABS: CKMB % Relative Index 2.3 % (1.5-5.0); Creatine Kinase MB 2.56 ng/mL (<2.37)
--- NOTE | 2021-01-13 13:43 | ED_ITS ---
HPI - SOB/Dyspnea General Chief Complaint: Shortness of Breath/Dyspnea Stated Complaint: Breathing issues Time Seen by Provider: 01/13/21 12:35 Source: patient Mode of arrival: Ambulatory Limitations: no limitations History of Present Illness HPI Narrative: This is a 65-year-old female comes emergency department complaint of a breathing issues. Patient states she has had breathing issues for the past 5 days she was seen by myself yesterday for rash that developed starting Sunday after having a cardiac catheterization receiving contrast. She states her rash is still present but not worsening. She states she has had a low-grade fever, she has felt short of breath particularly with ambulation and thinks that she needs oxygen. She has noted she has some bilateral lower extremity swelling and edema. She denies any cough. No cold cough or congestion. No orthopnea. She had some nausea this morning but nothing persistent. No vomiting. No diarrhea constipation. No urinary systems no chest pain or pressure. She has not had any syncope. She has not started the oral steroids she was discharged home with. She has also stopped her steroid inhaler as well as her regular inhalers about 3 days ago. Patient also notes she has a hiatal hernia and thinks this is pushing on her lungs and worsening her symptoms as well. Related Data Home Medications Medication Instructions Recorded Confirmed sennosides 8.6 mg tablet (senna) 17.2 mg PO BEDTIME PRN 09/20/18 01/04/21 potassium chloride 20 mEq 10 meq PO DAILY PRN 10/29/18 01/04/21 tablet,extended release levalbuterol tartrate 45 2 inhalation INHALATION BID gram 08/26/19 01/04/21 mcg/actuation aerosol inhaler (Xopenex HFA) diphenhydramine HCl 25 mg capsule 75 mg PO DAILY PRN 10/26/19 01/04/21 (Benadryl) omeprazole 40 mg capsule,delayed 40 mg PO BID 02/10/20 01/04/21 release lidocaine 5 % topical ointment 1 applic TOPICAL TID PRN 02/24/20 01/04/21 ketotifen fumarate 0.025 % (0.035 1 drp OPHTHALMIC (EYE) BID 03/02/20 01/04/21 %) eye drops (Zaditor) fluticasone propionate 50 1 spray INTRANASAL BID 04/02/20 01/04/21 mcg/actuation nasal spray,suspension ondansetron 8 mg disintegrating 8 mg PO Q8H PRN 06/29/20 01/04/21 tablet oxycodone 5 mg tablet 5 mg PO QID PRN 06/29/20 01/04/21 Previous Rx's Medication Instructions Recorded levalbuterol HCl 0.63 mg/3 mL 0.63 mg (3 mL) INHALATION Q8H PRN 09/11/19 solution for nebulization #90 ml methocarbamol 750 mg tablet 750 mg PO TID PRN #90 tab 09/29/19 epinephrine 0.3 mg/0.3 mL 0.3 mg (0.3 mL) IM ONCE PRN #1 ea 01/01/20 injection, auto-injector budesonide-formoterol HFA 80 2 puff INHALATION BID #10.2 gram 01/28/20 mcg-4.5 mcg/actuation aerosol inhaler (Symbicort) montelukast 10 mg tablet 10 mg PO BEDTIME PRN #90 tab 02/23/20 sumatriptan succinate 100 mg tablet 100 mg PO ONCE PRN #14 tab 02/23/20 furosemide 40 mg tablet 40 mg PO DAILY PRN #30 tab 03/04/20 diazepam 5 mg tablet 5 mg PO TID PRN #90 tab 09/10/20 Trintellix 20 mg tablet 20 mg PO DAILY #30 tab NS 09/28/20 (vortioxetine) quetiapine 25 mg tablet See Rx Instructions PO BID #30 tab 10/27/20 hydromorphone 2 mg tablet 2 mg PO Q4HR PRN #10 tab 11/22/20 mirtazapine 7.5 mg tablet 7.5 mg PO BEDTIME PRN #30 tab 11/24/20 famotidine 20 mg tablet (Pepcid) 20 mg PO BID #10 tab 01/12/21 methylprednisolone 4 mg tablet 4 mg PO DAILY #5 tab 01/12/21 furosemide 20 mg tablet (Lasix) 20 mg PO DAILY #3 tab 01/13/21 Allergies Allergy/AdvReac Type Severity Reaction Status Date / Time Iodinated Contrast Media Allergy Severe Difficulty Verified 01/13/21 15:35 Breathing latex Allergy Severe Rash Verified 01/13/21 15:35 morphine [MORPHINE] Allergy Severe Anaphylaxis Verified 01/13/21 15:35 Penicillins [PENICILLINS] Allergy Severe Anaphylaxis Verified 01/13/21 15:35 Sulfa (Sulfonamide Allergy Severe RASH Verified 01/13/21 15:35 Antibiotics) [SULFA (SULFONAMIDE ANTIBIOTICS)] azithromycin Allergy Intermediate Rash Verified 01/13/21 15:35 [From ZITHROMAX Z-MARILYN] cefuroxime [From Ceftin] Allergy Intermediate Rash Verified 01/13/21 15:35 sulfamethoxazole Allergy Intermediate RASH Verified 01/13/21 15:35 [From SEPTRA] trimethoprim [From SEPTRA] Allergy Intermediate RASH Verified 01/13/21 15:35 ciprofloxacin [From Cipro] Allergy Pt does Verified 01/13/21 15:35 not remember reaction Corticosteroids Allergy Swelling Verified 01/13/21 15:35 (Glucocorticoids) of Lip/Tongue/Throat cephalexin [From Keflex] AdvReac Severe Fever, Verified 01/13/21 15:35 Asthma, Tachycardia prednisone AdvReac Severe nausea and Verified 01/13/21 15:35 feels very weak, and axious verapamil AdvReac Intermediate Asthma Verified 01/13/21 15:35 symptoms zonisamide AdvReac Intermediate Asthma Verified 01/13/21 15:35 symptoms Review of Systems Review of Systems ROS Unobtainable: All systems reviewed & are unremarkable except as noted in HPI and below Patient History Medical History Anemia Anxiety Asthma Chronic back pain Chronic cough Depression Femur fracture, left Fibromyalgia Fractures GERD (gastroesophageal reflux disease) Hiatal hernia Recurrent sinusitis Venous insufficiency (chronic) (peripheral) Surgical History Anesthesia History of eye surgery (~1973) History of foot surgery History of hysterectomy (~1979) History of shoulder surgery (~2011) History of tonsillectomy (~1975) Hx of bilateral cataract extraction Family History Mother Heart disease Social History marital status: number of children: 1 household members: none lives independently: Yes caregiver/support person: Yes (3 afternoons per week) pets and animals: Yes occupational status: disabled Smoking Status: Never smoker alcohol intake: never substance use type: does not use Smoking Status: Never smoker alcohol intake frequency: holidays/special occasions only Substance Use Type: does not use Exam Narrative Exam Narrative: GENERAL: Alert and oriented x three, female in mild distress. HEENT: Head normocephalic, atraumatic, EOMI, pupils reactive, face symmetric, moist mucous membranes NECK: Supple, full range of motion CARDIOVASCULAR: Regular rate and rhythm without murmurs, rubs or gallops. RESPIRATORY: Breath sounds equal bilaterally, no wheezes rales or rhonchi. ABDOMEN: Soft, nontender. Normoactive bowel sounds all 4 quadrants. No guarding or rebound, rigidity, no mass : No CVA tenderness EXTREMITIES: Normal range of motion, bilateral lower extremity edema. Neurov ascularly intact NEUROLOGICAL: Cranial nerves II through XII grossly intact. Moving all extremities SKIN: Warm, dry, no petechiae, no rashes or lesions. Initial Vital Signs Initial Vital Signs: Vital Signs Temperature 98.2 F 01/13/21 12:09 Pulse Rate 84 01/13/21 12:09 Respiratory Rate 22 01/13/21 12:09 Blood Pressure 128/65 01/13/21 12:09 Pulse Oximetry 94 01/13/21 12:09 Course Orders Ordered: ED Orders 01/13/21 12:02 Consult to HEALTHCARE MARKET CONSULTANT - Telephone Lines Repairer Stat 01/13/21 12:35 Consult to Respiratory Therapy Evaluate & Treat XR chest 1V Stat 01/13/21 12:55 Basic Metabolic Panel Stat Complete Blood Count AUTO DIFF Stat Magnesium Stat NT-proBNP (BNP-Adult 18+) Stat Partial Thromboplastin Time Stat Prothrombin Time INR Stat Troponin & CK Cardiac Panel Stat 01/13/21 13:05 EKG-12 Lead Stat 01/13/21 15:00 Troponin I Stat 01/13/21 15:02 EKG-12 Lead Routine Discontinued Medications Lorazepam (Lorazepam 0.5 Mg Tablet) 1 mg PO NOW ONE Stop: 01/13/21 14:30 Last Admin: 01/13/21 14:44 Dose: 1 mg Documented by: YOHANNES Vital Signs Vital signs: Vital Signs - 8 hr 01/13/21 12:09 01/13/21 13:05 01/13/21 13:30 Temperature 98.2 F Pulse Rate 84 81 77 Respiratory Rate 22 Blood Pressure 128/65 Pulse Oximetry 94 93 93 01/13/21 14:00 01/13/21 14:30 01/13/21 14:46 Temperature Pulse Rate 78 71 71 Respiratory Rate 18 Blood Pressure 109/66 Pulse Oximetry 93 97 96 01/13/21 16:33 Temperature Pulse Rate 71 Respiratory Rate 18 Blood Pressure 129/60 Pulse Oximetry 98 MDM - SOB/Dyspnea Lab Data Result diagrams: 01/13/21 12:55 01/13/21 12:55 Labs: Lab Results 01/13/21 01/13/21 01/13/21 Range/Units 12:55 12:55 12:55 WBC 12.6 H (4.5-11.0) X10^3/uL RBC 3.66 L (4.0-5.2) X10^6/uL Hgb 10.6 L (12.0-16.0) g/dL Hct 31.5 L (36-46) % MCV 86.0 (80-100) fL MCH 29.0 (26-34) PG MCHC 33.7 (30-36) % RDW 15.3 H (11.6-14.8) % Plt Count 279 (150-400) X10^3/uL Neut % (Auto) 88.0 H (50-75) % Lymph % (Auto) 8.2 L (25-40) % [place] % (Auto) 3.7 (3-14) % Eos % (Auto) 0.1 L (2-4) % Baso % (Auto) 0.0 (0-2) % Neut # (Auto) 73226 H (2377-1530) /uL Lymph # (Auto) 1000 L (4256-7071) /uL [place] # (Auto) 500 (0-900) /uL Eos # (Auto) 0 (0-450) /uL Baso # (Auto) 0 (0-100) /uL PT 11.1 (10.1-12.7) SECONDS INR 1.0 (0.9-1.3) APTT 24 L (26.4-36.2) SECONDS Sodium 139 (137-145) mmol/L Potassium 3.4 (3.4-5.1) mmol/L Chloride 100 (98-107) mmol/L Carbon Dioxide 29 (22-32) mmol/L BUN 35 H (7-17) mg/dL Creatinine 0.88 (0.52-1.04) mg/dL Estimated GFR > 60.0 (>60) mL/min BUN/Creatinine Ratio 39.8 H (6-22) Glucose 117 H (80-110) mg/dL Calcium 9.1 (8.4-10.2) mg/dL Magnesium 2.2 (1.6-2.3) mg/dL Total Creatine Kinase 110 (30-135) U/L CK-MB (CK-2) 2.56 H (<2.37) ng/mL CK-MB (CK-2) Rel Index 2.3 (1.5-5.0) % Troponin I < 0.012 (0.01-0.034) ng/mL NT-Pro-B Natriuret Pep 146 H (<125) pg/mL 01/13/21 Range/Units 15:00 WBC (4.5-11.0) X10^3/uL RBC (4.0-5.2) X10^6/uL Hgb (12.0-16.0) g/dL Hct (36-46) % MCV (80-100) fL MCH (26-34) PG MCHC (30-36) % RDW (11.6-14.8) % Plt Count (150-400) X10^3/uL Neut % (Auto) (50-75) % Lymph % (Auto) (25-40) % [place] % (Auto) (3-14) % Eos % (Auto) (2-4) % Baso % (Auto) (0-2) % Neut # (Auto) (1849-0463) /uL Lymph # (Auto) (1414-4865) /uL [place] # (Auto) (0-900) /uL Eos # (Auto) (0-450) /uL Baso # (Auto) (0-100) /uL PT (10.1-12.7) SECONDS INR (0.9-1.3) APTT (26.4-36.2) SECONDS Sodium (137-145) mmol/L Potassium (3.4-5.1) mmol/L Chloride (98-107) mmol/L Carbon Dioxide (22-32) mmol/L BUN (7-17) mg/dL Creatinine (0.52-1.04) mg/dL Estimated GFR (>60) mL/min BUN/Creatinine Ratio (6-22) Glucose (80-110) mg/dL Calcium (8.4-10.2) mg/dL Magnesium (1.6-2.3) mg/dL Total Creatine Kinase (30-135) U/L CK-MB (CK-2) (<2.37) ng/mL CK-MB (CK-2) Rel Index (1.5-5.0) % Troponin I < 0.012 (0.01-0.034) ng/mL NT-Pro-B Natriuret Pep (<125) pg/mL Imaging Data Chest x-ray: Radiologist's Impression: Launch?Image [address] [address] XRay Report Signed Patient: Sheryl Lennon MR#: [id number] : 1955 Acct:[id number] Age/Sex: 65 / F Date of Service: 01/13/21 Loc: ED Accession Number: [id number] ?? Procedure: XR chest 1V Ordering Provider: Tara Galvez D.O. PROCEDURE:? XR CHEST 1V ? INDICATIONS:? sob ? TECHNIQUE:? One view of the chest was acquired.? ? COMPARISON:? [facility], CT, CT ANGIO CHEST PE PROTOCOL, 12/21/2020, 19:09.? [facility], CR, XR CHEST 2V, 12/23/2020, 13:52.? [facility], CR, XR CHEST 2V, 12/29/2020, 12:54. ? FINDINGS:? ? Surgical changes and devices:? None.? ? Lungs and pleura:? Mild kyphotic positioning is noted.? Retrocardiac opacity is consistent with a known hiatal hernia.? Lungs are clear.? No pleural effusions or pneumothorax.? ? Mediastinum:? Mediastinal contours appear normal.? Heart size is stable.? ? Bones and chest wall:? No suspicious bony lesions.? Overlying soft tissues appear unremarkable.? ? IMPRESSION:? No acute cardiopulmonary abnormality. ? ? Dictated by: Cole Wells M.D. on 01/13/2021 at 13:24 ? ? Approved by: Cole Wells M.D. on 01/13/2021 at 13:27?? ECG Data Attestation: I personally reviewed and interpreted this ECG as follows: Prior ECG tracings: available for review Interpretation: Sinus rhythm rate of 68 [place] 160 QRS of 100 and QTC of 418. No acute ST changes noted. EKG 2 sinus rhythm rate of 64 [place] 162, QRS of 96 and QTC 445. No acute ST changes comparison to prior. Nonspecific change. Appears similar to prior. MDM Narrative Medical decision making narrative: Patient does not wish to have covid testing today. It was offered and that it would be appropriate. Patient was seen yesterday for rash has not worsened. She has not started any of the steroids orally she has also stopped her steroid as well as regular inhaler. We discussed that no clear cardiac cause, or other pulmonary causes found today she has some increased swelling in her lower extremities and her BNP is only very mildly elevated but can try a small course of Lasix to see if this is helpful. Patient's labs, EKG and findings today are otherwise reassuring and she was asked to return. She was requesting oxygen initially upon arrival but we did discuss that her O2 saturation has been appropriate throughout her entire stay. Discharge Plan Departure Patient Disposition: Home Clinical Impression: Dyspnea Activity Restrictions/Additional Instructions: Follow-up with your physician. Start the methylprednisolone that you have been prescribed in addition to your regular steroid. Please restart your Symbicort inhaler twice daily. I would recommend continuing with your albuterol as needed. Take Lasix daily. Prescription sent to [facility] in [place] for 3 days lasix which may be helpful for the swelling in your legs. Please return for worsening symptoms, passing, new chest pain, worsening breathing issues, new swelling in your extremities or other new or concerning symptoms. Prescriptions: New furosemide [Lasix] 20 mg tablet 20 mg PO DAILY Qty: 3 0RF No Action Trintellix 20 mg tablet 20 mg PO DAILY Qty: 30 5RF mirtazapine 7.5 mg tablet 7.5 mg PO BEDTIME PRN (Reason: sleep) Qty: 30 2RF Hold Instructions: not currently taking potassium chloride 20 mEq tablet extended release 10 meq PO DAILY PRN (Reason: Take w/lasix) 0RF Rx Instructions: Take w/lasix prn fluticasone propionate 50 mcg/actuation spray,suspension 1 spray intranasal BID 0RF Rx Instructions: administer into each nostril diazepam 5 mg tablet 5 mg PO TID PRN (Reason: Anxiety) Qty: 90 0RF levalbuterol HCl 0.63 mg/3 mL solution for nebulization 0.63 mg INHALATION Q8H PRN (Reason: shortness of breath or wheezing) Qty: 90 11RF methocarbamol 750 mg tablet 750 mg PO TID PRN (Reason: Spasms) Qty: 90 3RF Rx Instructions: PRN epinephrine 0.3 mg/0.3 mL auto-injector 0.3 mg IM ONCE PRN (Reason: Allergic Reaction) Qty: 1 11RF budesonide-formoterol [Symbicort] 80-4.5 mcg/actuation HFA aerosol inhaler 2 puff INHALATION BID Qty: 10.2 0RF quetiapine 25 mg tablet See Rx Instructions PO BID Qty: 30 0RF Rx Instructions: 1/2 tab p.o. b.i.d. as needed anxiety sumatriptan succinate 100 mg tablet 100 mg PO ONCE PRN (Reason: migraine headache) Qty: 14 3RF Rx Instructions: take at onset, may repeat in 2 hours if no relief, max daily dose 2 tabs montelukast 10 mg tablet 10 mg PO BEDTIME PRN (Reason: Allergy Symptoms) Qty: 90 3RF levalbuterol tartrate [Xopenex HFA] 45 mcg/actuation HFA aerosol inhaler 2 inhalation INHALATION BID 0RF Rx Instructions: may take every 6hrs prn at home lidocaine 5 % Ointment 1 applic TOPICAL TID PRN (Reason: pain) 0RF ketotifen fumarate [Zaditor] 0.025 % (0.035 %) Drops 1 drp OPHTHALMIC (EYE) BID 0RF furosemide 40 mg tablet 40 mg PO DAILY PRN (Reason: edema) Qty: 30 0RF Rx Instructions: Take 1 tablet daily as needed for edema methylprednisolone 4 mg tablet 4 mg PO DAILY Qty: 5 0RF famotidine [Pepcid] 20 mg tablet 20 mg PO BID Qty: 10 0RF sennosides [senna] 8.6 mg Tablet 17.2 mg PO BEDTIME PRN (Reason: Constipation) 0RF diphenhydramine HCl [Benadryl] 25 mg Capsule 75 mg PO DAILY PRN (Reason: Allergy Symptoms) 0RF omeprazole 40 mg Capsule,Delayed Release(Dr/Ec) 40 mg PO BID 0RF ondansetron 8 mg Tablet,Disintegrating 8 mg PO Q8H PRN (Reason: Nausea) 0RF oxycodone 5 mg Tablet 5 mg PO QID PRN (Reason: Pain (Scale Score 1-3)) 0RF hydromorphone 2 mg Tablet 2 mg PO Q4HR PRN (Reason: Pain, Severe (7-10)) Qty: 10 0RF Referrals: Taye Mckeon MD [Primary Care Provider] -
--- NOTE | 2021-01-13 14:40 | PC.NURSE ---
Pt reports anxiety and life stress. Informed pt of wait, pt requests david travis on ice, okayed by Dr. Galvez.
[2021-01-13] MEDS: LORazepam 0.5 MG TABLET 1 MG PO (14:44)
[2021-01-13 15:46] LABS: Troponin I < 0.012 ng/mL (0.01-0.034)
== END 2021-01-13 16:33 | disposition home or self-care (01) ==
PROVIDERS: Emergency Provider Emergency Medicine; PCP Internal Medicine
DX: R06.00 Dyspnea, unspecified (principal); M79.89 Other specified soft tissue disorders
CPT/HCPCS: 36415; 71045; 80048; 82550; 82553; 83735; 83880; 84484; 85025; 85610; 85730; 93005; 99284

== ENCOUNTER 2021-01-20 12:13 | Emergency (ER) | payer OTHER, MEDICAID, SELFPAY ==
[2020-08-27 13:41] VITALS: BMI 35.4
[2021-01-20] VITALS (15 sets, daily range): BP systolic 110–123; BP diastolic 56–83; PULSE 58–72; RESP 15–26; TEMP 36.7; O2SAT 88–97; BMI 37.2
--- NOTE | 2021-01-20 12:18 | DI.RAD.S_ITS ---
PROCEDURE: XR CHEST 1V INDICATIONS: shortness of breath TECHNIQUE: One view of the chest was acquired. COMPARISON: [facility], CR, XR CHEST 2V, 12/29/2020, 12:54. [facility], CR, XR CHEST 1V, 01/13/2021, 12:39. FINDINGS: Surgical changes and devices: None. Lungs and pleura: Lungs are clear. No pleural effusions or pneumothorax. Mediastinum: Mediastinal contours appear normal. Heart size is mildly increased. Moderate size hiatal hernia. Bones and chest wall: No suspicious bony lesions. Overlying soft tissues appear unremarkable. Left humeral fracture with internal fixation. IMPRESSION: 1. Mild cardiomegaly. No confluent pulmonary edema. 2. Moderate sized hiatal hernia. Dictated by: Rosanne Alex M.D. on 01/20/2021 at 12:44 Approved by: Rosanne Alex M.D. on 01/20/2021 at 12:45
[2021-01-20 12:54] LABS: Add Manual Diff / Slide Review NO; Basophils Absolute Auto 100 /uL (0-100); Basophils Percent Auto 0.5 % (0-2); Eosinophils Absolute Auto 0 /uL (0-450); Eosinophils Percent Auto 0.3 % (2-4); Hematocrit 33.7 % (36-46); Hemoglobin 11.3 g/dL (12.0-16.0); Lymphocytes Absolute Auto 1200 /uL (1100-4500); Lymphocytes Percent Auto 11.7 % (25-40); Mean Corpuscular HGB Conc 33.4 % (30-36); Mean Corpuscular Hemoglobin 28.7 PG (26-34); Mean Corpuscular Volume 85.9 fL (80-100); Monocytes Absolute Auto 400 /uL (0-900); Monocytes Percent Auto 3.7 % (3-14); Neutrophils Absolute Auto 8400 /uL (1500-7000); Neutrophils Percent Auto 83.8 % (50-75); Platelet Count 335 X10^3/uL (150-400); Red Blood Cell Count 3.92 X10^6/uL (4.0-5.2); Red Cell Distribution Width 15.3 % (11.6-14.8); White Blood Cell Count 10.1 X10^3/uL (4.5-11.0)
[2021-01-20 13:08] LABS: Creatine Kinase 170 U/L (30-135)
[2021-01-20 13:11] LABS: Alanine Aminotransferase 23 IU/L (<35); Albumin 4.2 g/dL (3.5-5.0); Albumin Globulin Ratio 1.6 (1.0-2.8); Alkaline Phosphatase 98 U/L (38-126); Aspartate Aminotransferase 31 IU/L (14-36); BUN Creatinine Ratio 19.6 (6-22); Bilirubin Total 0.3 mg/dL (0.2-1.3); Blood Urea Nitrogen 28 mg/dL (7-17); Calcium 9.4 mg/dL (8.4-10.2); Carbon Dioxide 28 mmol/L (22-32); Chloride 97 mmol/L (98-107); Estimated Glomerular Filt Rate 36.7 mL/min (>60); Globulin 2.7 g/dL (1.7-4.1); Glucose 124 mg/dL (80-110); HEMOLYSIS < 15 (0-50); Potassium 3.6 mmol/L (3.4-5.1); Sodium 133 mmol/L (137-145); Total Protein 6.9 g/dL (6.3-8.2)
[2021-01-20 13:22] LABS: NT-proBNP (BNP-Adult 18+) 97 pg/mL (<125); Troponin I < 0.012 ng/mL (0.01-0.034)
[2021-01-20 13:24] LABS: CKMB % Relative Index 1.6 % (1.5-5.0); Creatine Kinase MB 2.68 ng/mL (<2.37)
[2021-01-20 13:37] LABS: Adenovirus Not Detected (Not Detect); B. parapertussis Not Detected (Not Detecte); Bordetella pertussis Not Detected (Not Detecte); Chlamydophila pneumoniae Not Detected (Not Detect); Coronavirus 229E Not Detected (Not Detect); Coronavirus HKU1 Not Detected (Not Detect); Coronavirus NL 63 Not Detected (Not Detect); Coronavirus OC43 Not Detected (Not Detect); Human Metapneumovirus Not Detected (Not Detect); Human Rhinovirus/Enterovirus Not Detected (Not Detect); Influenza A Not Detected (Not Detect); Influenza B Not Detected (Not Detect); Mycoplasma pneumoniae Not Detected (Not Detect); Parainfluenza Virus 1 Not Detected (Not Detect); Parainfluenza Virus 2 Not Detected (Not Detect); Parainfluenza Virus 3 Not Detected (Not Detect); Parainfluenza Virus 4 Not Detected (Not Detect); Respiratory Syncytial Virus Not Detected (Not Detect); SARS- CoV-2 Not Detected (Not Detecte)
--- NOTE | 2021-01-20 15:27 | ED.SOB ---
HPI - SOB/Dyspnea General Chief Complaint: Shortness of Breath/Dyspnea Stated Complaint: SOB, Weakness Time Seen by Provider: 01/20/21 13:44 Source: patient Mode of arrival: Family Vehicle Limitations: no limitations History of Present Illness HPI Narrative: This is a 65-year-old female comes in with complaint of dizziness which she states has been going on for a long time but felt different today. Sort of felt like the room was spinning it happened when she 1st woke up and is continued on today. She was able to walk to the kitchen and continue her normal activities. She denies new vision changes. No new numbness, tingling or weakness. She has shortness of breath which she has had for some time. She denies any chest pain or pressure. No diaphoresis. No nausea or vomiting. No abdominal pain. No back or flank pain. Other GI or urinary symptoms with no dysuria, urgency or. states that she has been diagnosed with hypertrophic cardiomyopathy she states her renewals specialist has told her there is nothing to be done but she has researched it and seen at there are surgeries as well as medications that can be she would like to follow up with a different renewals specialist. She she does note she has had 3 new medications started including metoprolol, valsartan and torsemide by her renewals specialist in the last few weeks. We did clarify that she has been started on torsemide and not furosemide. This was started after cardiac catheterization she was told that her coronary arteries did not have any atherosclerosis or require any intervention but they did tell her about her hypertrophic cardiomyopathy. Patient states she has been taking her steroid at 8mg daily. She has not had any new cough, cold or congestion. She has not had any fevers or chills. Related Data Home Medications Medication Instructions Recorded Confirmed sennosides 8.6 mg tablet (senna) 17.2 mg PO BEDTIME PRN 09/20/18 01/04/21 potassium chloride 20 mEq 10 meq PO DAILY PRN 10/29/18 01/04/21 tablet,extended release levalbuterol tartrate 45 2 inhalation INHALATION BID gram 08/26/19 01/04/21 mcg/actuation aerosol inhaler (Xopenex HFA) diphenhydramine HCl 25 mg capsule 75 mg PO DAILY PRN 10/26/19 01/04/21 (Benadryl) omeprazole 40 mg capsule,delayed 40 mg PO BID 02/10/20 01/04/21 release lidocaine 5 % topical ointment 1 applic TOPICAL TID PRN 02/24/20 01/04/21 ketotifen fumarate 0.025 % (0.035 1 drp OPHTHALMIC (EYE) BID 03/02/20 01/04/21 %) eye drops (Zaditor) fluticasone propionate 50 1 spray INTRANASAL BID 04/02/20 01/04/21 mcg/actuation nasal spray,suspension ondansetron 8 mg disintegrating 8 mg PO Q8H PRN 06/29/20 01/04/21 tablet oxycodone 5 mg tablet 5 mg PO QID PRN 06/29/20 01/04/21 Previous Rx's Medication Instructions Recorded levalbuterol HCl 0.63 mg/3 mL 0.63 mg (3 mL) INHALATION Q8H PRN 09/11/19 solution for nebulization #90 ml methocarbamol 750 mg tablet 750 mg PO TID PRN #90 tab 09/29/19 epinephrine 0.3 mg/0.3 mL 0.3 mg (0.3 mL) IM ONCE PRN #1 ea 01/01/20 injection, auto-injector budesonide-formoterol HFA 80 2 puff INHALATION BID #10.2 gram 01/28/20 mcg-4.5 mcg/actuation aerosol inhaler (Symbicort) montelukast 10 mg tablet 10 mg PO BEDTIME PRN #90 tab 02/23/20 sumatriptan succinate 100 mg tablet 100 mg PO ONCE PRN #14 tab 02/23/20 furosemide 40 mg tablet 40 mg PO DAILY PRN #30 tab 03/04/20 diazepam 5 mg tablet 5 mg PO TID PRN #90 tab 09/10/20 Trintellix 20 mg tablet 20 mg PO DAILY #30 tab NS 09/28/20 (vortioxetine) hydromorphone 2 mg tablet 2 mg PO Q4HR PRN #10 tab 11/22/20 mirtazapine 7.5 mg tablet 7.5 mg PO BEDTIME PRN #30 tab 11/24/20 famotidine 20 mg tablet (Pepcid) 20 mg PO BID #10 tab 01/12/21 methylprednisolone 4 mg tablet 4 mg PO DAILY #5 tab 01/12/21 furosemide 20 mg tablet (Lasix) 20 mg PO DAILY #3 tab 01/13/21 quetiapine 25 mg tablet See Rx Instructions PO BID #30 tab 01/18/21 Allergies Allergy/AdvReac Type Severity Reaction Status Date / Time Iodinated Contrast Media Allergy Severe Difficulty Verified 01/20/21 12:59 Breathing latex Allergy Severe Rash Verified 01/20/21 12:59 morphine [MORPHINE] Allergy Severe Anaphylaxis Verified 01/20/21 12:59 Penicillins [PENICILLINS] Allergy Severe Anaphylaxis Verified 01/20/21 12:59 Sulfa (Sulfonamide Allergy Severe RASH Verified 01/20/21 12:59 Antibiotics) [SULFA (SULFONAMIDE ANTIBIOTICS)] azithromycin Allergy Intermediate Rash Verified 01/20/21 12:59 [From ZITHROMAX Z-MARILYN] cefuroxime [From Ceftin] Allergy Intermediate Rash Verified 01/20/21 12:59 sulfamethoxazole Allergy Intermediate RASH Verified 01/20/21 12:59 [From SEPTRA] trimethoprim [From SEPTRA] Allergy Intermediate RASH Verified 01/20/21 12:59 ciprofloxacin [From Cipro] Allergy Pt does Verified 01/20/21 12:59 not remember reaction Corticosteroids Allergy Swelling Verified 01/20/21 12:59 (Glucocorticoids) of Lip/Tongue/Throat cephalexin [From Keflex] AdvReac Severe Fever, Verified 01/20/21 12:59 Asthma, Tachycardia prednisone AdvReac Severe nausea and Verified 01/20/21 12:59 feels very weak, and axious verapamil AdvReac Intermediate Asthma Verified 01/20/21 12:59 symptoms zonisamide AdvReac Intermediate Asthma Verified 01/20/21 12:59 symptoms Review of Systems Review of Systems ROS Unobtainable: All systems reviewed & are unremarkable except as noted in HPI and below Patient History Medical History Anemia Anxiety Asthma Chronic back pain Chronic cough Depression Femur fracture, left Fibromyalgia Fractures GERD (gastroesophageal reflux disease) Hiatal hernia Recurrent sinusitis Venous insufficiency (chronic) (peripheral) Surgical History Anesthesia History of eye surgery (~1973) History of foot surgery History of hysterectomy (~1979) History of shoulder surgery (~2011) History of tonsillectomy (~1975) Hx of bilateral cataract extraction Family History Mother Heart disease Social History marital status: number of children: 1 household members: none lives independently: Yes caregiver/support person: Yes (3 afternoons per week) pets and animals: Yes occupational status: disabled Smoking Status: Never smoker alcohol intake: never substance use type: does not use Smoking Status: Never smoker alcohol intake frequency: holidays/special occasions only Substance Use Type: does not use Exam Narrative Exam Narrative: GEN: well nourished, well appearing female, alert and oriented, patient appears to be in mild distress. HEENT: Atraumatic, pupils are equal round reactive to light, extraocular movements are intact, nares are clear. No facial droop. HEART: Regular rate and rhythm without murmur, clicks, rubs. LUNGS:Lungs clear to auscultation, no wheezes, rales, crackles, chest moves symmetrically, no tachypnea or accessory muscle use. ABD:bowel sounds normal, soft, non-tender, no guarding, rebound, rigidity, no masses noted, no hepatosplenomegaly :No CVA tenderness MSCL: Non-tender, no muscle atrophy, muscles strength 5/5 upper and lower extremities, full range of motion, normal gait. NEURO:CN 2-12 intact, sensation normal SKIN: No rash, erythema or other skin changes. Initial Vital Signs Initial Vital Signs: Vital Signs Pulse Rate 70 01/20/21 12:22 Respiratory Rate 16 01/20/21 12:22 Blood Pressure 111/60 01/20/21 12:22 Pulse Oximetry 97 01/20/21 12:22 Course Orders Ordered: ED Orders 01/20/21 12:18 XR chest 1V Stat EKG-12 Lead Stat Measure peak expiratory flow ONCE RT Consult Eval and Treat Now 01/20/21 12:29 Respiratory Panel (Film Array) Stat 01/20/21 12:41 BNP [NT-proBNP (BNP-Adult 18+)] Stat Complete Blood Count AUTO DIFF Stat Comprehensive Metabolic Panel Stat Lactate (Lactic Acid) Stat Troponin & CK Cardiac Panel Stat 01/20/21 15:46 US renal complete Stat 01/20/21 16:20 UA Complete [Urinalysis and Microscopic] Stat Discontinued Medications Lorazepam (Lorazepam 0.5 Mg Tablet) 0.5 mg PO NOW ONE Stop: 01/20/21 16:31 Last Admin: 01/20/21 16:43 Dose: 0.5 mg Documented by: DEIDREONER Vital Signs Vital signs: Vital Signs - 8 hr 01/20/21 12:22 01/20/21 12:28 01/20/21 12:30 Temperature 98.1 F Pulse Rate 70 65 69 Respiratory Rate 16 24 20 Blood Pressure 111/60 111/60 Pulse Oximetry 97 97 95 01/20/21 12:33 01/20/21 13:00 01/20/21 13:30 Temperature Pulse Rate 69 58 L 68 Respiratory Rate 22 20 19 Blood Pressure 118/56 L 121/63 Pulse Oximetry 96 95 97 01/20/21 14:00 01/20/21 14:30 01/20/21 15:00 Temperature Pulse Rate 58 L 58 L 64 Respiratory Rate 19 19 21 Blood Pressure Pulse Oximetry 96 95 96 01/20/21 15:20 01/20/21 15:30 01/20/21 16:00 Temperature Pulse Rate 67 64 Respiratory Rate 20 15 Blood Pressure 118/83 110/65 Pulse Oximetry 97 95 88 L 01/20/21 16:30 01/20/21 17:00 01/20/21 17:24 Temperature Pulse Rate 69 64 72 Respiratory Rate 26 H 21 Blood Pressure 123/58 L Pulse Oximetry 95 97 94 MDM - SOB/Dyspnea Lab Data Result diagrams: 01/20/21 12:41 01/20/21 12:41 Labs: Lab Results 01/20/21 01/20/21 01/20/21 Range/Units 12:29 12:41 12:41 WBC 10.1 (4.5-11.0) X10^3/uL RBC 3.92 L (4.0-5.2) X10^6/uL Hgb 11.3 L (12.0-16.0) g/dL Hct 33.7 L (36-46) % MCV 85.9 (80-100) fL MCH 28.7 (26-34) PG MCHC 33.4 (30-36) % RDW 15.3 H (11.6-14.8) % Plt Count 335 (150-400) X10^3/uL Neut % (Auto) 83.8 H (50-75) % Lymph % (Auto) 11.7 L (25-40) % Lawrence % (Auto) 3.7 (3-14) % Eos % (Auto) 0.3 L (2-4) % Baso % (Auto) 0.5 (0-2) % Neut # (Auto) 8400 H (6255-0058) /uL Lymph # (Auto) 1200 (4605-9084) /uL Lawrence # (Auto) 400 (0-900) /uL Eos # (Auto) 0 (0-450) /uL Baso # (Auto) 100 (0-100) /uL Sodium 133 L (137-145) mmol/L Potassium 3.6 (3.4-5.1) mmol/L Chloride 97 L (98-107) mmol/L Carbon Dioxide 28 (22-32) mmol/L BUN 28 H (7-17) mg/dL Creatinine 1.43 H (0.52-1.04) mg/dL Estimated GFR 36.7 L (>60) mL/min BUN/Creatinine Ratio 19.6 (6-22) Glucose 124 H (80-110) mg/dL Lactate (0.7-2.1) mmol/L Calcium 9.4 (8.4-10.2) mg/dL Total Bilirubin 0.3 (0.2-1.3) mg/dL AST 31 (14-36) IU/L ALT 23 (<35) IU/L Alkaline Phosphatase 98 (38-126) U/L Total Creatine Kinase (30-135) U/L CK-MB (CK-2) (<2.37) ng/mL CK-MB (CK-2) Rel Index (1.5-5.0) % Troponin I (0.01-0.034) ng/mL NT-Pro-B Natriuret Pep (<125) pg/mL Total Protein 6.9 (6.3-8.2) g/dL Albumin 4.2 (3.5-5.0) g/dL Globulin 2.7 (1.7-4.1) g/dL Albumin/Globulin Ratio 1.6 (1.0-2.8) Urine Color Urine Appearance Urine pH (4.5-8.0) Ur Specific [place] (1.000-1.035) Urine Protein (Negative) Urine Glucose (UA) (Negative) g/dL Urine Ketones (NEGATIVE) Urine Occult Blood (Negative) Urine Nitrate (Negative) Urine Bilirubin (NEGATIVE) Urine Urobilinogen (0.2) E.U./dL Ur Leukocyte Esterase (NEGATIVE) Urine RBC (0-5/HPF) Urine WBC (0-5/HPF) Urine Bacteria (None) Ur Culture Indicated? Chlamy pneumoniae PCR Not detected (Not Detect) Adenovirus (PCR) Not detected (Not Detect) B. pertussis DNA (PCR) Not detected (Not Detecte) B.parapertussis DNA PCR Not detected (Not Detecte) Coronavirus OC43 (PCR) Not detected (Not Detect) Coronavirus HKU1 (PCR) Not detected (Not Detect) Coronavirus 229E (PCR) Not detected (Not Detect) SARS-CoV-2 (PCR) Not detected (Not Detecte) Coronavirus NL63 (PCR) Not detected (Not Detect) Human Metapneumovir PCR Not detected (Not Detect) Influenza Type A (PCR) Not detected (Not Detect) Influenza Type B (PCR) Not detected (Not Detect) M. pneumoniae (PCR) Not detected (Not Detect) Parainfluenza 1 (PCR) Not detected (Not Detect) Parainfluenza 2 (PCR) Not detected (Not Detect) Parainfluenza 3 (PCR) Not detected (Not Detect) Parainfluenza 4 (PCR) Not detected (Not Detect) RSV (PCR) Not detected (Not Detect) Entero/Rhino (PCR) Not detected (Not Detect) 01/20/21 01/20/21 01/20/21 Range/Units 12:41 12:41 16:02 WBC (4.5-11.0) X10^3/uL RBC (4.0-5.2) X10^6/uL Hgb (12.0-16.0) g/dL Hct (36-46) % MCV (80-100) fL MCH (26-34) PG MCHC (30-36) % RDW (11.6-14.8) % Plt Count (150-400) X10^3/uL Neut % (Auto) (50-75) % Lymph % (Auto) (25-40) % Lawrence % (Auto) (3-14) % Eos % (Auto) (2-4) % Baso % (Auto) (0-2) % Neut # (Auto) (0239-4993) /uL Lymph # (Auto) (1477-8599) /uL Lawrence # (Auto) (0-900) /uL Eos # (Auto) (0-450) /uL Baso # (Auto) (0-100) /uL Sodium (137-145) mmol/L Potassium (3.4-5.1) mmol/L Chloride (98-107) mmol/L Carbon Dioxide (22-32) mmol/L BUN (7-17) mg/dL Creatinine (0.52-1.04) mg/dL Estimated GFR (>60) mL/min BUN/Creatinine Ratio (6-22) Glucose (80-110) mg/dL Lactate 2.0 (0.7-2.1) mmol/L Calcium (8.4-10.2) mg/dL Total Bilirubin (0.2-1.3) mg/dL AST (14-36) IU/L ALT (<35) IU/L Alkaline Phosphatase (38-126) U/L Total Creatine Kinase 170 H (30-135) U/L CK-MB (CK-2) 2.68 H (<2.37) ng/mL CK-MB (CK-2) Rel Index 1.6 (1.5-5.0) % Troponin I < 0.012 (0.01-0.034) ng/mL NT-Pro-B Natriuret Pep 97 (<125) pg/mL Total Protein (6.3-8.2) g/dL Albumin (3.5-5.0) g/dL Globulin (1.7-4.1) g/dL Albumin/Globulin Ratio (1.0-2.8) Urine Color Yellow Urine Appearance Clear Urine pH 6.0 (4.5-8.0) Ur Specific [place] <=1.005 (1.000-1.035) Urine Protein Negative (Negative) Urine Glucose (UA) Negative (Negative) g/dL Urine Ketones Negative (NEGATIVE) Urine Occult Blood Negative (Negative) Urine Nitrate Negative (Negative) Urine Bilirubin Negative (NEGATIVE) Urine Urobilinogen 0.2 (0.2) E.U./dL Ur Leukocyte Esterase Negative (NEGATIVE) Urine RBC None seen (0-5/HPF) Urine WBC None seen (0-5/HPF) Urine Bacteria None seen (None) Ur Culture Indicated? Cult not indicated Chlamy pneumoniae PCR (Not Detect) Adenovirus (PCR) (Not Detect) B. pertussis DNA (PCR) (Not Detecte) B.parapertussis DNA PCR (Not Detecte) Coronavirus OC43 (PCR) (Not Detect) Coronavirus HKU1 (PCR) (Not Detect) Coronavirus 229E (PCR) (Not Detect) SARS-CoV-2 (PCR) (Not Detecte) Coronavirus NL63 (PCR) (Not Detect) Human Metapneumovir PCR (Not Detect) Influenza Type A (PCR) (Not Detect) Influenza Type B (PCR) (Not Detect) M. pneumoniae (PCR) (Not Detect) Parainfluenza 1 (PCR) (Not Detect) Parainfluenza 2 (PCR) (Not Detect) Parainfluenza 3 (PCR) (Not Detect) Parainfluenza 4 (PCR) (Not Detect) RSV (PCR) (Not Detect) Entero/Rhino (PCR) (Not Detect) Imaging Data Chest x-ray: Radiologist's Impression: [address] [id number] ReportSigned Patient: Sheryl LennonMR#: [id number]: 5Acct:[id number]/Sex: 65 / FDate of Service: 01/20/21Loc: EDAccession Number: [id number]? ? Procedure: XR chest 1V Ordering Provider: Tara Galvez D.O. PROCEDURE:? XR CHEST 1V ? INDICATIONS:? shortness of breath ? TECHNIQUE:? One view of the chest was acquired.? ? COMPARISON:? [facility], CR, XR CHEST 2V, 12/29/2020, 12:54.? [facility], CR, XR CHEST 1V, 01/13/2021, 12:39. ? FINDINGS:? ? Surgical changes and devices:? None.? ? Lungs and pleura:? Lungs are clear.? No pleural effusions or pneumothorax.? ? Mediastinum:? Mediastinal contours appear normal.? Heart size is mildly increased.? Moderate size hiatal hernia. ? Bones and chest wall:? No suspicious bony lesions.? Overlying soft tissues appear unremarkable.? Left humeral fracture with internal fixation. ? IMPRESSION:? ? 1. Mild cardiomegaly.? No confluent pulmonary edema. 2. Moderate sized hiatal hernia.? Dictated by: Rosanne Alex M.D. on 01/20/2021 at 12:44? ?? Approved by: Rosanne Alex M.D. on 01/20/2021 at 12:45?? renal US: Radiologist's Impression: [place] [address] Ultrasound Report Signed Patient: Sheryl Lennon MR#: [id number] : 1955 Acct:[id number] Age/Sex: 65 / F Date of Service: 01/20/21 Loc: ED Accession Number: [id number] ?? Procedure: US renal complete Ordering Provider: Tara Galvez D.O. PROCEDURE:? US RENAL COMPLETE ? INDICATIONS:? ACUTE KIDNEY INJURY ? TECHNIQUE:? Real-time scanning was performed of the kidneys and bladder, with image documentation.? ? COMPARISON:? None. ? FINDINGS:? ? Kidneys:? Kidneys are normal in size.? Right kidney measures 7.7 cm long; left kidney measures 9.1 cm long.? Right renal cortical thickness is 1.2 cm; left renal cortical thickness is 1.9 cm.? Renal cortical echotexture is normal.? No hydronephrosis or nephrolithiasis.? No suspicious solid mass lesions.? ? Bladder:? Pre-void bladder volume is 32 mL.? Post-void residual was not determine due to inability of patient to void.? Patient voided immediately prior to image acquisition..? Pre-void images demonstrate no intraluminal masses or stones.? On pre-void images, neither the right nor the left ureteral jets are noted with color Doppler interrogation.? (Of note, ureteral jets may not be detectable in up to 25% of cases due to insufficient differences in specific gravity between ureteral and bladder urine).? ? Miscellaneous:? No free pelvic fluid.? ? ? IMPRESSION:? ? 1. Mild right renal atrophy.? ? 2. No hydronephrosis.? Dictated by: Amaya Fletcher MD, PhD on 01/20/2021 at 16:41 ? ? Approved by: Amaya Fletcher MD, PhD on 01/20/2021 at 16:43?? ECG Data Attestation: I personally reviewed and interpreted this ECG as follows: Interpretation: Sinus rhythm rate of 65 AK 148 QRS 88 QTC 432[address] No acute ST elevation depression appreciated. No acute changes noted. MDM Narrative Medical decision making narrative: This is a 65-year-old female comes in with complaint of dizziness, shortness of breath. Patient's dizziness has been longstanding but felt worse earlier today. She has also been complaining of shortness of breath for some time. She has requested oxygen multiple times but has not been hypoxic. Patient's EKG and labs, chest x-ray do not show any clear causes for hypoxia. She has not been tachycardic but her renal function was noted to be decreased in comparison to priors. Renal ultrasound was ordered and she has atrophic right kidney. Patient has recently started on valsartan and torsemide by her renewals specialist and this combination has likely caused a change in her renal function. We discussed she needs to stop these for the short term, recontact her renewals specialist, have her renal function rechecked and they can readjust her medications as needed. Urine did not show any signs of infection, hematuria or other concerns. She has not had any flank or abdominal pain that would make me suspicious for kidney stones or other obstructions. Patient has been able to ambulate back and forth to the bathroom without any distress or difficulty. Patient expressed her understanding plan for discharge home. She did express she would like to have a 2nd opinion with a different renewals specialist so referral was included. Discharge Plan Departure Patient Disposition: Home Clinical Impression: Acute kidney injury, Right renal atrophy Instructions: Acute Kidney Injury Activity Restrictions/Additional Instructions: Your labs today show that your kidney function has decreased. You need to have your kidney function rechecked in the next 48 hours. Your imaging shows your right kidney is mildy atrophic or small. This in combination with the valsartan and your diuretics has likely cause some kidney injury. I would recommend stopping your valsartan and torsemide for the short term. Call to discuss alternative options with your renewals specialist. They may be able to restart your medication if your renal function improves. If you would like to a 2nd opinion with a different renewals specialist referral is included below. Please return for worsening shortness of breath, passing out, chest pain, swelling of your extremities, decrease in urine output or no urine output or other new or concerning symptoms. Prescriptions: No Action Trintellix 20 mg tablet 20 mg PO DAILY Qty: 30 5RF mirtazapine 7.5 mg tablet 7.5 mg PO BEDTIME PRN (Reason: sleep) Qty: 30 2RF Hold Instructions: not currently taking potassium chloride 20 mEq tablet extended release 10 meq PO DAILY PRN (Reason: Take w/lasix) 0RF Rx Instructions: Take w/lasix prn fluticasone propionate 50 mcg/actuation spray,suspension 1 spray intranasal BID 0RF Rx Instructions: administer into each nostril diazepam 5 mg tablet 5 mg PO TID PRN (Reason: Anxiety) Qty: 90 0RF levalbuterol HCl 0.63 mg/3 mL solution for nebulization 0.63 mg INHALATION Q8H PRN (Reason: shortness of breath or wheezing) Qty: 90 11RF methocarbamol 750 mg tablet 750 mg PO TID PRN (Reason: Spasms) Qty: 90 3RF Rx Instructions: PRN epinephrine 0.3 mg/0.3 mL auto-injector 0.3 mg IM ONCE PRN (Reason: Allergic Reaction) Qty: 1 11RF budesonide-formoterol [Symbicort] 80-4.5 mcg/actuation HFA aerosol inhaler 2 puff INHALATION BID Qty: 10.2 0RF quetiapine 25 mg tablet See Rx Instructions PO BID Qty: 30 1RF Rx Instructions: 1/2 tab p.o. b.i.d. as needed anxiety sumatriptan succinate 100 mg tablet 100 mg PO ONCE PRN (Reason: migraine headache) Qty: 14 3RF Rx Instructions: take at onset, may repeat in 2 hours if no relief, max daily dose 2 tabs montelukast 10 mg tablet 10 mg PO BEDTIME PRN (Reason: Allergy Symptoms) Qty: 90 3RF levalbuterol tartrate [Xopenex HFA] 45 mcg/actuation HFA aerosol inhaler 2 inhalation INHALATION BID 0RF Rx Instructions: may take every 6hrs prn at home lidocaine 5 % Ointment 1 applic TOPICAL TID PRN (Reason: pain) 0RF ketotifen fumarate [Zaditor] 0.025 % (0.035 %) Drops 1 drp OPHTHALMIC (EYE) BID 0RF furosemide 40 mg tablet 40 mg PO DAILY PRN (Reason: edema) Qty: 30 0RF Rx Instructions: Take 1 tablet daily as needed for edema methylprednisolone 4 mg tablet 4 mg PO DAILY Qty: 5 0RF famotidine [Pepcid] 20 mg tablet 20 mg PO BID Qty: 10 0RF sennosides [senna] 8.6 mg Tablet 17.2 mg PO BEDTIME PRN (Reason: Constipation) 0RF diphenhydramine HCl [Benadryl] 25 mg Capsule 75 mg PO DAILY PRN (Reason: Allergy Symptoms) 0RF omeprazole 40 mg Capsule,Delayed Release(Dr/Ec) 40 mg PO BID 0RF ondansetron 8 mg Tablet,Disintegrating 8 mg PO Q8H PRN (Reason: Nausea) 0RF oxycodone 5 mg Tablet 5 mg PO QID PRN (Reason: Pain (Scale Score 1-3)) 0RF hydromorphone 2 mg Tablet 2 mg PO Q4HR PRN (Reason: Pain, Severe (7-10)) Qty: 10 0RF furosemide [Lasix] 20 mg tablet 20 mg PO DAILY Qty: 3 0RF Referrals: Taye Mckeon MD [Primary Care Provider] - Tera Mena MD [Physician] -
--- NOTE | 2021-01-20 15:46 | DI.US.S_ITS ---
PROCEDURE: US RENAL COMPLETE INDICATIONS: ACUTE KIDNEY INJURY TECHNIQUE: Real-time scanning was performed of the kidneys and bladder, with image documentation. COMPARISON: None. FINDINGS: Kidneys: Kidneys are normal in size. Right kidney measures 7.7 cm long; left kidney measures 9.1 cm long. Right renal cortical thickness is 1.2 cm; left renal cortical thickness is 1.9 cm. Renal cortical echotexture is normal. No hydronephrosis or nephrolithiasis. No suspicious solid mass lesions. Bladder: Pre-void bladder volume is 32 mL. Post-void residual was not determine due to inability of patient to void. Patient voided immediately prior to image acquisition.. Pre-void images demonstrate no intraluminal masses or stones. On pre-void images, neither the right nor the left ureteral jets are noted with color Doppler interrogation. (Of note, ureteral jets may not be detectable in up to 25% of cases due to insufficient differences in specific gravity between ureteral and bladder urine). Miscellaneous: No free pelvic fluid. IMPRESSION: 1. Mild right renal atrophy. 2. No hydronephrosis. Dictated by: Amaya Fletcher MD, PhD on 01/20/2021 at 16:41 Approved by: Amaya Fletcher MD, PhD on 01/20/2021 at 16:43
[2021-01-20 16:04] LABS: Appearance Urine UA CLEAR; Bilirubin Urine UA NEGATIVE (NEGATIVE); Color Urine UA YELLOW; Glucose Urine UA NEGATIVE (Negative); Ketones Urine UA NEGATIVE (NEGATIVE); Leukocyte Esterase Urine UA NEGATIVE (NEGATIVE); Nitrite Urine UA NEGATIVE (Negative); Occult Blood Urine UA NEGATIVE (Negative); Protein Urine UA NEGATIVE (Negative); Specific Gravity Urine UA <=1.005 (1.000-1.035); Urobilinogen Urine UA 0.2 E.U./dL (0.2)
[2021-01-20 16:12] LABS: Bacteria Urine None Seen; Culture Indicated Urine Cult Not Indicated; RBC Urine None Seen (0-5/HPF); WBC Urine None Seen (0-5/HPF)
[2021-01-20] MEDS: LORazepam 0.5 MG TABLET PO (16:43)
== END 2021-01-20 17:45 | disposition home or self-care (01) ==
PROVIDERS: Emergency Provider Emergency Medicine; PCP Internal Medicine
DX: N17.9 Acute kidney failure, unspecified (principal); N26.1 Atrophy of kidney (terminal); R42 Dizziness and giddiness
CPT/HCPCS: 36415; 71045; 76770; 80053; 81001; 82550; 82553; 83605; 83880; 84484; 85025; 87633; 93005; 93010; 99284

== ENCOUNTER 2021-02-22 14:24 | Emergency (ER) | payer MEDICARE, MEDICAID, SELFPAY ==
[2020-08-27 13:41] VITALS: BMI 35.4
[2021-02-22 14:30] VITALS: BP 126/57; PULSE 79; RESP 17; TEMP 36.9; O2SAT 97
--- NOTE | 2021-02-22 14:37 | DI.RAD.S_ITS ---
PROCEDURE: XR KNEE RT 1TO2V INDICATIONS: pain sp fall, hx replacement TECHNIQUE: 2 view(s) of the knee acquired. COMPARISON: [facility], CR, XR KNEE RT 1TO2V, 05/06/2020, 11:05. FINDINGS: Bones: Patient is status post knee joint arthroplasty. Hardware components are in expected positions. No gross hardware loosening or failure. Visualized bony structures are intact. Soft tissues: No significant joint effusion or abnormal soft tissue calcifications. IMPRESSION: Stable right knee alignment. No fracture or dislocation. No gross hardware complication. Dictated by: Rafat Hall M.D. on 02/22/2021 at 15:26 Approved by: Rafat Hall M.D. on 02/22/2021 at 15:27
--- NOTE | 2021-02-22 14:37 | DI.RAD.S_ITS ---
PROCEDURE: XR SHOULDER RT MIN 2V INDICATIONS: shoulder pain sp fall TECHNIQUE: 2 views of the shoulder were acquired. COMPARISON: None. FINDINGS: Bones: No fractures or dislocations. No suspicious bony lesions. Moderate acromioclavicular joint osteoarthritic changes are seen. [id number] glenohumeral joint osteoarthritis is also noted. Visualized ribs appear intact. Soft tissues: No suspicious soft tissue calcifications. IMPRESSION: No acute right shoulder fracture or dislocation. 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 Dictated by: Rafat Hall M.D. on 02/22/2021 at 15:27 Approved by: Rafat Hall M.D. on 02/22/2021 at 15:27
--- NOTE | 2021-02-22 14:37 | DI.CT.S_ITS ---
PROCEDURE: CT HEAD/BRAIN WO CON INDICATIONS: 4' fall, ? loc TECHNIQUE: Noncontrast 4.5 mm thick angled axial sections acquired from the foramen magnum to the vertex, with coronal and sagittal reformats. For radiation dose reduction, the following was used: automated exposure control, adjustment of mA and/or kV according to patient size. COMPARISON: [facility], CT, CT FACIAL BONES WO CON, 02/22/2021, 15:04. FINDINGS: Image quality: Excellent. CSF spaces: Basal cisterns are patent. No extra-axial fluid collections. Ventricles are normal in size and shape. Brain: No midline shift. No intracranial masses or hemorrhage. Ivey-white matter interface is normal. Skull and face: There appear to be probable minimally displaced bilateral nasal bone fractures. Calvarium and visualized facial bones are intact, without suspicious lesions. Sinuses: Visualized sinuses and mastoids are clear. IMPRESSION: No acute intracranial abnormality. Probable minimally displaced bilateral nasal bone fractures. Dictated by: Memo Olivo M.D. on 02/22/2021 at 14:10 Approved by: Memo Olivo M.D. on 02/22/2021 at 14:11
--- NOTE | 2021-02-22 14:37 | DI.CT.S_ITS ---
PROCEDURE: CT CERVICAL SPINE WO CON INDICATIONS: 4' fall, neck pain TECHNIQUE: Noncontrast 3 mm thick sections acquired from the skull base to the T4 level. Sagittal and coronal reformats were then constructed. For radiation dose reduction, the following was used: automated exposure control, adjustment of mA and/or kV according to patient size. COMPARISON: None. FINDINGS: Image quality: Excellent. Bones: No fracture, subluxation, or dislocation. Intervertebral disc spaces are congruent. Facet joints are congruent without asymmetric widening. Interspinous distances are normal. Soft tissues: Prevertebral soft tissues are normal in thickness. No paravertebral hematomas. No apical pneumothoraces. IMPRESSION: No CT evidence of acute traumatic cervical spine injury. Dictated by: Memo Olivo M.D. on 02/22/2021 at 14:14 Approved by: Memo Olivo M.D. on 02/22/2021 at 14:16
--- NOTE | 2021-02-22 14:37 | DI.CT.S_ITS ---
PROCEDURE: CT FACIAL BONES WO CON INDICATIONS: 4' fall, hit face TECHNIQUE: Noncontrast 2.5 mm thick axial images acquired from the mandible through the frontal sinuses, with coronal and sagittal reformatting. For radiation dose reduction, the following was used: automated exposure control, adjustment of mA and/or kV according to patient size. COMPARISON: None. FINDINGS: Image quality: Excellent. Bones and teeth: Possible minimally plate displaced bilateral nasal bone fractures. Orbital granda are intact. Sinus granda show no fracture or deformity. Nasal bones and septum are intact. Visualized portions of the mandible demonstrate no fractures or subluxation. Zygomatic arches are intact. Pterygoid plates are intact. Visualized portions of the skull base and auditory canals are intact. Sinuses: Paranasal sinuses are aerated, without fluid levels, mucosal thickening, or mucoceles. Mastoid air cells are aerated. Soft tissues: No edema, masses, or fluid collections. No enlarged lymph nodes. No soft tissue lacerations or debris. Vascular: Visualized vascular structures appear normal in the absence of contrast. Bony vascular foramina and canals are intact. IMPRESSION: Possible minimally displaced bilateral nasal bone fractures, age indeterminate. Otherwise no acute finding. Dictated by: Memo Olivo M.D. on 02/22/2021 at 14:12 Approved by: Memo Olivo M.D. on 02/22/2021 at 14:13
--- NOTE | 2021-02-22 14:53 | DI.RAD.S_ITS ---
PROCEDURE: XR ELBOW RT 2V INDICATIONS: pain sp fall TECHNIQUE: 2 views of the elbow were acquired. COMPARISON: None. FINDINGS: Bones: No fractures or dislocations. No suspicious bony lesions. Soft tissues: No elbow joint effusion. No suspicious soft tissue calcifications. IMPRESSION: No acute elbow fracture or dislocation. No joint effusion. Dictated by: Rafat Hall M.D. on 02/22/2021 at 15:21 Approved by: Rafat Hall M.D. on 02/22/2021 at 15:26
--- NOTE | 2021-02-22 15:09 | DI.RAD.S_ITS ---
PROCEDURE: XR PELVIS 1-2V INDICATIONS: fall TECHNIQUE: 1 view(s) of the pelvis acquired. COMPARISON: [facility], CR, PELVIS W UNILATERAL HIP LEFT, 06/03/2010, 16:23. FINDINGS: Bones: There is prior fixation of left proximal femoral shaft with intramedullary cindy and [address] Left hip alignment is anatomic. No gross hardware loosening or failure. No acute pelvic fracture or dislocation is seen. Bilateral hip joint osteoarthritic changes are noted. No evidence of avascular necrosis of femoral head. No suspicious bony lesions. Soft tissues: Visualized bowel gas pattern is normal. No suspicious soft tissue calcifications. IMPRESSION: No acute pelvic or hip fracture. Bilateral hip joint osteoarthritis. No evidence of avascular necrosis. Dictated by: Rafat Hall M.D. on 02/22/2021 at 15:37 Approved by: Rafat Hall M.D. on 02/22/2021 at 15:38
[2021-02-22] MEDS: TET,DIPH,PERTUSS(ACELL),VAC/PF 0.5 ML SYRINGE IM (15:30)
[2021-02-22] MEDS: LORazepam 2 MG/ML INJ 0.5 MG IV (15:31)
[2021-02-22 15:34] LABS: Add Manual Diff / Slide Review NO; Basophils Absolute Auto 100 /uL (0-100); Basophils Percent Auto 0.8 % (0-2); Eosinophils Absolute Auto 200 /uL (0-450); Eosinophils Percent Auto 3.3 % (2-4); Hematocrit 31.6 % (36-46); Hemoglobin 10.6 g/dL (12.0-16.0); Lymphocytes Absolute Auto 1900 /uL (1100-4500); Lymphocytes Percent Auto 27.5 % (25-40); Mean Corpuscular HGB Conc 33.6 % (30-36); Mean Corpuscular Hemoglobin 28.9 PG (26-34); Mean Corpuscular Volume 85.9 fL (80-100); Monocytes Absolute Auto 600 /uL (0-900); Monocytes Percent Auto 8.1 % (3-14); Neutrophils Absolute Auto 4200 /uL (1500-7000); Neutrophils Percent Auto 60.3 % (50-75); Platelet Count 253 X10^3/uL (150-400); Red Blood Cell Count 3.68 X10^6/uL (4.0-5.2); Red Cell Distribution Width 15.2 % (11.6-14.8); White Blood Cell Count 6.9 X10^3/uL (4.5-11.0)
[2021-02-22 15:51] LABS: Alanine Aminotransferase 21 IU/L (<35); Albumin 3.8 g/dL (3.5-5.0); Albumin Globulin Ratio 1.4 (1.0-2.8); Alkaline Phosphatase 86 U/L (38-126); Aspartate Aminotransferase 38 IU/L (14-36); BUN Creatinine Ratio 27.6 (6-22); Bilirubin Total 0.3 mg/dL (0.2-1.3); Blood Urea Nitrogen 32 mg/dL (7-17); Calcium 9.3 mg/dL (8.4-10.2); Carbon Dioxide 28 mmol/L (22-32); Chloride 105 mmol/L (98-107); Estimated Glomerular Filt Rate 46.7 mL/min (>60); Globulin 2.8 g/dL (1.7-4.1); Glucose 104 mg/dL (80-110); HEMOLYSIS 25 (0-50); Potassium 3.7 mmol/L (3.4-5.1); Sodium 137 mmol/L (137-145); Total Protein 6.6 g/dL (6.3-8.2)
[2021-02-22 16:02] VITALS: PULSE 58; RESP 18; O2SAT 96
[2021-02-22] MEDS: KETOROLAC 30 MG/ML VIAL 15 MG IV (16:27)
[2021-02-22 16:30] VITALS: PULSE 62; RESP 19; O2SAT 100
[2021-02-22] MEDS: OXYCODONE/ACETAMINOPHEN 5/325 TABLET 1 TAB PO (16:37)
[2021-02-22 17:00] VITALS: PULSE 61; RESP 20; O2SAT 97
--- NOTE | 2021-02-22 17:20 | CM.SWNOTE ---
SISAL PICKER Note SISAL PICKER receives consult and enters room to meet with patient. Patient is familiar face to ED with at least 18 ED encounters within the last 12 months. Patient presents to ED today via EMS after GLF. Patient is 65 y/o female who resides alone in apartment. Patient endorses frustration and loneliness that no family members are able to tend to her needs and pick her up from ED. SISAL PICKER calls [facility] after hours Yellow cab dispatch and provides patient's provider one number to arrange transportation to patient's home upon d/c. Patient does not qualify for BLS and denies that anyone can pick her up. Patient reports concern for her pain and that she is not provided rx upon d/c to home. Plan: Patient to d/c to home via yellow cab medicaid coverage, SISAL PICKER to contact PCP to schedule f/u appt and SISAL PICKER to f/u with patient via phone tomorrow. RAMAKRISHNA Napier
[2021-02-22 17:31] VITALS: BP 137/71; PULSE 63; RESP 18; O2SAT 97
--- NOTE | 2021-02-22 17:41 | PC.NURSE ---
Pt states that she has a black spot in her left eye. Provider aware.
--- NOTE | 2021-02-22 18:44 | ED.FALL ---
HPI - Fall <Tara Cuba PR[employer] SUPERVISOR-BC - Last Filed: 02/22/21 18:56> General Chief Complaint: Fall Stated Complaint: Fall Time Seen by Provider: 02/22/21 14:36 Source: patient Mode of arrival: EMS History of Present Illness HPI Narrative: The patient is a 65-year-old female nonsmoker with history of a complicated medical history including major depressive disorder, arthritis, anxiety, difficulty breathing and asthma exacerbation who presents with a chief complaint of a fall. She fell down a 4 ft high grassy no chasing after her dog him landing on her front. She is not sure whether not she lost consciousness, but states she ?saw stars.' she complains primarily of neck pain right shoulder pain nose pain, hip and right knee pain. She has history of a right knee replacement. Afterwards she was able to walk up 2 flights of stairs to her apartment to bring her daughter back, and then walked down 2 flights of stairs to the ambulance. She does not take any blood thinners. She denies any difficulty breathing she states her abdomen feels ?slightly sore and notes that she has an old bruise the upper left side of her abdomen. She states her pain is severe. Related Data Home Medications Medication Instructions Recorded Confirmed sennosides 8.6 mg tablet (senna) 17.2 mg PO BEDTIME PRN 09/20/18 01/27/21 potassium chloride 20 mEq 10 meq PO DAILY PRN 10/29/18 01/27/21 tablet,extended release levalbuterol tartrate 45 2 inhalation INHALATION BID gram 08/26/19 01/27/21 mcg/actuation aerosol inhaler (Xopenex HFA) diphenhydramine HCl 25 mg capsule 75 mg PO DAILY PRN 10/26/19 01/27/21 (Benadryl) omeprazole 40 mg capsule,delayed 40 mg PO BID 02/10/20 01/27/21 release lidocaine 5 % topical ointment 1 applic TOPICAL TID PRN 02/24/20 01/27/21 ketotifen fumarate 0.025 % (0.035 1 drp OPHTHALMIC (EYE) BID 03/02/20 01/27/21 %) eye drops (Zaditor) fluticasone propionate 50 1 spray INTRANASAL BID 04/02/20 01/27/21 mcg/actuation nasal spray,suspension ondansetron 8 mg disintegrating 8 mg PO Q8H PRN 06/29/20 01/27/21 tablet metoprolol succinate 25 mg 25 mg PO BID 01/27/21 01/27/21 tablet,extended release 24 hr valsartan 40 mg tablet 20 mg PO BID 01/27/21 01/27/21 Previous Rx's Medication Instructions Recorded levalbuterol HCl 0.63 mg/3 mL 0.63 mg (3 mL) INHALATION Q8H PRN 09/11/19 solution for nebulization #90 ml methocarbamol 750 mg tablet 750 mg PO TID PRN #90 tab 09/29/19 epinephrine 0.3 mg/0.3 mL 0.3 mg (0.3 mL) IM ONCE PRN #1 ea 01/01/20 injection, auto-injector budesonide-formoterol HFA 80 2 puff INHALATION BID #10.2 gram 01/28/20 mcg-4.5 mcg/actuation aerosol inhaler (Symbicort) montelukast 10 mg tablet 10 mg PO BEDTIME PRN #90 tab 02/23/20 sumatriptan succinate 100 mg tablet 100 mg PO ONCE PRN #14 tab 02/23/20 furosemide 40 mg tablet 40 mg PO DAILY PRN #30 tab 03/04/20 diazepam 5 mg tablet 5 mg PO TID PRN #90 tab 09/10/20 Trintellix 20 mg tablet 20 mg PO DAILY #30 tab NS 09/28/20 (vortioxetine) hydromorphone 2 mg tablet 2 mg PO Q4HR PRN #10 tab 11/22/20 mirtazapine 7.5 mg tablet 7.5 mg PO BEDTIME PRN #30 tab 11/24/20 famotidine 20 mg tablet (Pepcid) 20 mg PO BID #10 tab 01/12/21 methylprednisolone 4 mg tablet 4 mg PO DAILY #5 tab 01/12/21 furosemide 20 mg tablet (Lasix) 20 mg PO DAILY #3 tab 01/13/21 quetiapine 25 mg tablet See Rx Instructions PO BID #30 tab 01/18/21 Allergies Allergy/AdvReac Type Severity Reaction Status Date / Time Iodinated Contrast Media Allergy Severe Difficulty Verified 02/26/21 13:24 Breathing iodine Allergy Severe Difficulty Verified 02/26/21 13:24 Breathing latex Allergy Severe Rash Verified 02/26/21 13:24 morphine [MORPHINE] Allergy Severe Anaphylaxis Verified 02/26/21 13:24 Penicillins [PENICILLINS] Allergy Severe Anaphylaxis Verified 02/26/21 13:24 Sulfa (Sulfonamide Allergy Severe RASH Verified 02/26/21 13:24 Antibiotics) [SULFA (SULFONAMIDE ANTIBIOTICS)] azithromycin Allergy Intermediate Rash Verified 02/26/21 13:24 [From ZITHROMAX Z-MARILYN] cefuroxime [From Ceftin] Allergy Intermediate Rash Verified 02/26/21 13:24 sulfamethoxazole Allergy Intermediate RASH Verified 02/26/21 13:24 [From SEPTRA] trimethoprim [From SEPTRA] Allergy Intermediate RASH Verified 02/26/21 13:24 ciprofloxacin [From Cipro] Allergy Pt does Verified 02/26/21 13:24 not remember reaction Corticosteroids Allergy Swelling Verified 02/26/21 13:24 (Glucocorticoids) of Lip/Tongue/Throat cephalexin [From Keflex] AdvReac Severe Fever, Verified 02/26/21 13:24 Asthma, Tachycardia prednisone AdvReac Severe nausea and Verified 02/26/21 13:24 feels very weak, and axious verapamil AdvReac Intermediate Asthma Verified 02/26/21 13:24 symptoms zonisamide AdvReac Intermediate Asthma Verified 02/26/21 13:24 symptoms Review of Systems <BURAK Pardo - Last Filed: 02/22/21 18:56> Review of Systems Narrative: GENERAL: Denies chills, fatigue, malaise, fever, sweats. HEENT: See HPI RESPIRATORY: Denies dyspnea, cough, wheezing, hemoptysis, sputum. CARDIOVASCULAR: Denies chest pain, palpitations, orthopnea, edema, GASTROINTESTINAL: Denies nausea, vomiting, abdominal pain, diarrhea, constipation, melena. : Denies dysuria, frequency, incontinence, hematuria, urinary retention. MUSCULOSKELETAL: See HPI SKIN: Denies rash, skin lesions, or other NEUROLOGIC: See HPI PSYCHIATRIC: No concerning psychosocial issues. 12 point review of systems is negative except for those stated above Patient History <BURAK Pardo - Last Filed: 02/22/21 18:56> Medical History Anemia Anxiety Asthma Chronic back pain Chronic cough Depression Femur fracture, left Fibromyalgia Fractures GERD (gastroesophageal reflux disease) Hiatal hernia Recurrent sinusitis Venous insufficiency (chronic) (peripheral) Surgical History Anesthesia History of eye surgery (~1973) History of foot surgery History of hysterectomy (~1979) History of shoulder surgery (~2011) History of tonsillectomy (~1975) Hx of bilateral cataract extraction Family History Mother Heart disease Social History marital status: number of children: 1 household members: none lives independently: Yes caregiver/support person: Yes (3 afternoons per week) pets and animals: Yes occupational status: disabled Smoking Status: Never smoker alcohol intake: never substance use type: does not use Smoking Status: Never smoker alcohol intake frequency: holidays/special occasions only Substance Use Type: does not use Exam <RONNIE Pardo-BC - Last Filed: 02/22/21 18:56> Narrative Exam Narrative: GENERAL: This is a well-nourished, well-developed patient, appears anxious HEAD: Atraumatic. Normocephalic. No temporal or scalp tenderness. EYES: Pupils equal round and reactive. Extraocular motions intact. No scleral icterus. No injection or drainage. ENT: Nose without purulent drainage or septal hematoma. Superficial 1 cm linear laceration noted to bridge of nose by glasses line Throat without erythema, tonsillar hypertrophy or exudate. Uvula midline. Airway patent. NECK: Trachea midline. No JVD or lymphadenopathy. Supple, nontender, no meningeal signs. CARDIOVASCULAR: Regular rate and rhythm RESPIRATORY: Clear to auscultation. Breath sounds equal bilaterally. No wheezes, rales, or rhonchi. No cough. No increased respiratory effort. No accessory muscle use. No pain to anterior posterior chest wall palpation or lateral chest wall palpation. GASTROINTESTINAL: Abdomen soft, non-tender, nondistended. No hepato-splenomegaly, or palpable masses. No guarding. Active bowel sounds all quadrants. EXTREMITIES: Significant pain to palpation noted right shoulder, decreased range of motion all aquino. Able to flex and extend right elbow with pain. Positive pulse motor sensory all extremities bilaterally. Bruising and reduced range of motion noted bilateral knees. BACK: T and L-spine are nontender without deformity or crepitance. No flank tenderness. Pain to C-spine palpation. NEURO: AOx3. SKIN: See ENT exam. 1 cm abrasion noted on left lower leg. Ecchymosis scattered throughout bilateral knees. 2 cm burrows that is yellow and old noted on left upper abdomen. Initial Vital Signs Initial Vital Signs: Vital Signs Temperature 98.4 F 02/22/21 14:30 Pulse Rate 79 02/22/21 14:30 Respiratory Rate 17 02/22/21 14:30 Blood Pressure 126/57 L 02/22/21 14:30 Pulse Oximetry 97 02/22/21 14:30 <Hank Delgado MD - Last Filed: 02/28/21 12:19> Initial Vital Signs Initial Vital Signs: Vital Signs Temperature 98.4 F 02/22/21 14:30 Pulse Rate 79 02/22/21 14:30 Respiratory Rate 17 02/22/21 14:30 Blood Pressure 126/57 L 02/22/21 14:30 Pulse Oximetry 97 02/22/21 14:30 Scores <KIMBERLY Pardo - Last Filed: 02/22/21 18:56> [facility] CT Head Rule Age <16 years old: No Patient on blood thinners: No Seizure after injury: No Exclusion: Patient NOT Excluded, Proceed to next steps GCS < 15 at 2 hr post trauma: No Suspected open or depressed skull fracture: No Any sign of basilar skull fracture (hemotympanum, raccoon eyes, Negrete's sign, CSF montez-/rhinorrhea): No Two or more episodes of vomiting: No Age greater or equal to 65 years: Yes Retrograde amnesia to the event greater or equal to 30 min: No Dangerous Mechanism (pedestrian vs. mv, occupant ejected from mv, fall from >3 ft or > 5 stairs): No Recommendation: Consider CT. The [facility] Head CT Rule cannot rule out need for Imaging. GCS Darin coma scale eye opening: Spontaneous [place] coma scale verbal response: Orientated [place] coma scale motor response: Obey commands [place] coma scale total score: 15 Nexus Score for C-Spine Focal Neurologic deficit present: No Midline spinal tenderness present: Yes Altered level of conciousness present: No Intoxication present: No Distracting Injury Present: No Nexus Criteria for C-spine: 1 <Hank Delgado MD - Last Filed: 02/28/21 12:19> [facility] CT Head Rule Exclusion: Patient NOT Excluded, Proceed to next steps Recommendation: Consider CT. The [facility] Head CT Rule cannot rule out need for Imaging. GCS Darin coma scale total score: 15 Nexus Score for C-Spine Nexus Criteria for C-spine: 1 Course <KIMBERLY Pardo - Last Filed: 02/22/21 18:56> Orders Ordered: Discontinued Medications Diphtheria/Tetanus/Acell Pertussis (Tet,Diph,Pertuss(Acell),Vac/Pf 0.5 Ml Syringe) 0.5 ml IM .ONCE ONE Stop: 02/22/21 14:43 Last Admin: 02/22/21 15:30 Dose: 0.5 ml Documented by: JUANA Ketorolac Tromethamine (Ketorolac 30 Mg/Ml Vial) 15 mg IV NOW ONE Stop: 02/22/21 16:19 Last Admin: 02/22/21 16:27 Dose: 15 mg Documented by: ERIK Lorazepam (Lorazepam 2 Mg/Ml Inj) 0.5 mg IV NOW ONE Stop: 02/22/21 14:58 Last Admin: 02/22/21 15:31 Dose: 0.5 mg Documented by: JUANA Oxycodone/Acetaminophen (Oxycodone/Acetaminophen 5/325 Tablet) 1 tab PO NOW ONE Stop: 02/22/21 16:30 Last Admin: 02/22/21 16:37 Dose: 1 tab Documented by: ERIK Vital Signs Vital signs: Vital Signs - 8 hr 02/22/21 14:30 02/22/21 16:02 02/22/21 16:30 Temperature 98.4 F Pulse Rate 79 58 L 62 Respiratory Rate 17 18 19 Blood Pressure 126/57 L Pulse Oximetry 97 96 100 02/22/21 17:00 02/22/21 17:31 Temperature Pulse Rate 61 63 Respiratory Rate 20 18 Blood Pressure 137/71 Pulse Oximetry 97 97 <Hank Delgado MD - Last Filed: 02/28/21 12:19> Orders Ordered: Discontinued Medications Diphtheria/Tetanus/Acell Pertussis (Tet,Diph,Pertuss(Acell),Vac/Pf 0.5 Ml Syringe) 0.5 ml IM .ONCE ONE Stop: 02/22/21 14:43 Last Admin: 02/22/21 15:30 Dose: 0.5 ml Documented by: JUANA Ketorolac Tromethamine (Ketorolac 30 Mg/Ml Vial) 15 mg IV NOW ONE Stop: 02/22/21 16:19 Last Admin: 02/22/21 16:27 Dose: 15 mg Documented by: ERIK Lorazepam (Lorazepam 2 Mg/Ml Inj) 0.5 mg IV NOW ONE Stop: 02/22/21 14:58 Last Admin: 02/22/21 15:31 Dose: 0.5 mg Documented by: JUANA Oxycodone/Acetaminophen (Oxycodone/Acetaminophen 5/325 Tablet) 1 tab PO NOW ONE Stop: 02/22/21 16:30 Last Admin: 02/22/21 16:37 Dose: 1 tab Documented by: ERIK Vital Signs Vital signs: Vital Signs - 8 hr 02/22/21 14:30 02/22/21 16:02 02/22/21 16:30 Temperature 98.4 F Pulse Rate 79 58 L 62 Respiratory Rate 17 18 19 Blood Pressure 126/57 L Pulse Oximetry 97 96 100 02/22/21 17:00 02/22/21 17:31 Temperature Pulse Rate 61 63 Respiratory Rate 20 18 Blood Pressure 137/71 Pulse Oximetry 97 97 MDM - Fall <KIMBERLY Pardo - Last Filed: 02/22/21 18:56> Lab Data Attestation: I reviewed the patient's lab results. Result diagrams: 02/22/21 15:25 02/22/21 15:25 Labs: Lab Results 02/22/21 02/22/21 Range/Units 15:25 15:25 WBC 6.9 (4.5-11.0) X10^3/uL RBC 3.68 L (4.0-5.2) X10^6/uL Hgb 10.6 L (12.0-16.0) g/dL Hct 31.6 L (36-46) % MCV 85.9 (80-100) fL MCH 28.9 (26-34) PG MCHC 33.6 (30-36) % RDW 15.2 H (11.6-14.8) % Plt Count 253 (150-400) X10^3/uL Neut % (Auto) 60.3 (50-75) % Lymph % (Auto) 27.5 (25-40) % [place] % (Auto) 8.1 (3-14) % Eos % (Auto) 3.3 (2-4) % Baso % (Auto) 0.8 (0-2) % Neut # (Auto) 4200 (8847-1727) /uL Lymph # (Auto) 1900 (1220-5658) /uL [place] # (Auto) 600 (0-900) /uL Eos # (Auto) 200 (0-450) /uL Baso # (Auto) 100 (0-100) /uL Sodium 137 (137-145) mmol/L Potassium 3.7 (3.4-5.1) mmol/L Chloride 105 (98-107) mmol/L Carbon Dioxide 28 (22-32) mmol/L BUN 32 H (7-17) mg/dL Creatinine 1.16 H (0.52-1.04) mg/dL Estimated GFR 46.7 L (>60) mL/min BUN/Creatinine Ratio 27.6 H (6-22) Glucose 104 (80-110) mg/dL Calcium 9.3 (8.4-10.2) mg/dL Total Bilirubin 0.3 (0.2-1.3) mg/dL AST 38 H (14-36) IU/L ALT 21 (<35) IU/L Alkaline Phosphatase 86 (38-126) U/L Total Protein 6.6 (6.3-8.2) g/dL Albumin 3.8 (3.5-5.0) g/dL Globulin 2.8 (1.7-4.1) g/dL Albumin/Globulin Ratio 1.4 (1.0-2.8) Urine Dip Bedside Urine Glucose Negative Bedside Urine Bilirubin - Negative Bedside Urine Ketone - Negative Urine Specific [place] 1.010 Bedside Urine Occult Blood - Negative Bedside Urine pH 6.0 Bedside Urine Protein - Negative Bedside Urine Urobilinogen +/- 1mg Bedside Urine Nitrite - Negative Bedside Urine Leukocytes - Negative Esterase Imaging Data Pelvis x-ray: Radiologist's Impression: [address] [address] XRay Report Signed Patient: Sheryl Lennon MR#: [id number] : 1955 Acct:[id number] Age/Sex: 65 / F Date of Service: 02/22/21 Loc: ED Accession Number: [id number] ?? Procedure: XR pelvis 1-2V Ordering Provider: Tara Cuba PROCEDURE:? XR PELVIS 1-2V ? INDICATIONS:? fall ? TECHNIQUE:? 1 view(s) of the pelvis acquired.? ? COMPARISON:? [facility], CR, PELVIS W UNILATERAL HIP LEFT, 06/03/2010, 16:23. ? FINDINGS:? ? Bones:? There is prior fixation of left proximal femoral shaft with intramedullary cindy and [address].? Left hip alignment is anatomic.? No gross hardware loosening or failure.? No acute pelvic fracture or dislocation is seen.? Bilateral hip joint osteoarthritic changes are noted.? No evidence of avascular necrosis of femoral head.? No suspicious bony lesions.? ? Soft tissues:? Visualized bowel gas pattern is normal.? No suspicious soft tissue calcifications.? ? IMPRESSION:? No acute pelvic or hip fracture.? Bilateral hip joint osteoarthritis.? No evidence of avascular necrosis. ? ? Dictated by: Rafat Hall M.D. on 02/22/2021 at 15:37 ? ? Approved by: Rafat Hall M.D. on 02/22/2021 at 15:38?? Extremity x-ray #1: Radiologist's Impression: Sheryl Lennon?([place]maris)??65??F??1955 ? Allergy/Adv: Iodinated Contrast Media, iodine, latex, morphine, Penicillins, Sulfa (Sulfonamide Antibiotics), azithromycin, cefuroxime, sulfamethoxazole, trimethoprim, ciprofloxacin, Corticosteroids (Glucocorticoids), cephalexin, prednisone, verapamil, zonisamide (More??) Close Pelvis X-Ray (Signed) Rafat Hall - 02/22/21 Elbow X-Ray (Signed) Rafat Hall - 02/22/21 Shoulder X-Ray (Signed) Rafat Hall - 02/22/21 Knee X-Ray (Signed) Rafat Hall - 02/22/21 Knee X-Ray (Cancelled) 02/22/[address] (Signed) Memo Olivo - 02/22/[address] (Signed) Memo Olivo - 02/22/[address] (Signed) OlivoMemo - 02/22/21 Renal Ultrasound (Signed) Amaya Fletcher - 01/20/21 Chest X-Ray (Signed) Nisha Alex - 01/20/21 Chest X-Ray (Signed) Cole Wells - 01/13/21 Chest X-Ray (Signed) Michael Serrato - 12/29/20 Chest X-Ray (Signed) Chepe Chahal - 12/23/20 Chest CTA (Signed) Abimael Lyon - 12/21/20 Chest X-Ray (Signed) Abimael Lyon - 12/21/20 Chest X-Ray (Signed) Carlton Ashley - 12/09/20 Chest X-Ray (Signed) Chepe Chahal - 12/06/20 Chest X-Ray (Signed) Kieran Bryant - 10/10/20 Chest X-Ray (Signed) Gonzalez Dsouza - 10/06/20 Chest X-Ray (Signed) Cole Wells - 09/12/20 Chest CTA (Signed) Nisha Alex - 09/07/20 Chest X-Ray (Signed) Gonzalez Dsouza - 09/03/20 Outside DI 08/31/20 Abdomen/Pelvis CT (Signed) Gio Castellanos - 07/14/20 Vascular Ultrasound (Signed) Amaya Fletcher - 05/13/20 Knee X-Ray (Signed) Jace Delarosa - 05/06/20 Knee MRI (Signed) Rafat Hall - 04/28/20 Modified Barium Swallow (Signed) Amaya Fletcher - 03/31/20 Telemetry Strips 03/02/20 Telemetry Strips 03/02/20 Launch?[address] [address] XRay Report Signed Patient: Sheryl Lennon MR#: [id number] : 1955 Acct:[id number] Age/Sex: 65 / F Date of Service: 02/22/21 Loc: ED Accession Number: [id number] ?? Procedure: XR elbow RT 2V Ordering Provider: Tara Cuba- PROCEDURE:? XR ELBOW RT 2V ? INDICATIONS:? pain sp fall ? TECHNIQUE:? 2 views of the elbow were acquired.? ? COMPARISON:? None. ? FINDINGS:? ? Bones:? No fractures or dislocations.? No suspicious bony lesions.? ? Soft tissues:? No elbow joint effusion.? No suspicious soft tissue calcifications.? ? ? IMPRESSION:? No acute elbow fracture or dislocation.? No joint effusion. ? ? Dictated by: Rafat Hall M.D. on 02/22/2021 at 15:21 ? ? Extremity x-ray #2: Radiologist's Impression: [address] [place] [address] XRay Report Signed Patient: Sheryl Lennon MR#: [id number] : 1955 Acct:[id number] Age/Sex: 65 / F Date of Service: 02/22/21 Loc: ED Accession Number: [id number] ?? Procedure: XR shoulder RT min 2V Ordering Provider: Tara Cuba PROCEDURE:? XR SHOULDER RT MIN 2V ? INDICATIONS:? shoulder pain sp fall ? TECHNIQUE:? 2 views of the shoulder were acquired.? ? COMPARISON:? None. ? FINDINGS:? ? Bones:? No fractures or dislocations.? No suspicious bony lesions.? Moderate acromioclavicular joint osteoarthritic changes are seen.? [id number] glenohumeral joint osteoarthritis is also noted.? Visualized ribs appear intact.? ? Soft tissues:? No suspicious soft tissue calcifications.? ? IMPRESSION:? No acute right shoulder fracture or dislocation.? 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 ? ? Dictated by: Rafat Hall M.D. on 02/22/2021 at 15:27 ? ? Approved by: Rafat Hall M.D. on 02/22/2021 at 15:27 ? Extremity x-ray #3: Radiologist's Impression: [address] [place] [address] XRay Report Signed Patient: Sheryl Lennon MR#: [id number] : 1955 Acct:[id number] Age/Sex: 65 / F Date of Service: 02/22/21 Loc: ED Accession Number: [id number] ?? Procedure: XR knee RT 1to2V Ordering Provider: Tara Cuba PROCEDURE:? XR KNEE RT 1TO2V ? INDICATIONS:? pain sp fall, hx replacement ? TECHNIQUE:? 2 view(s) of the knee acquired.? ? COMPARISON:? [facility], CR, XR KNEE RT 1TO2V, 05/06/2020, 11:05. ? FINDINGS:? ? Bones:? Patient is status post knee joint arthroplasty.? Hardware components are in expected positions.? No gross hardware loosening or failure.? Visualized bony structures are intact.? ? Soft tissues:? No significant joint effusion or abnormal soft tissue calcifications. ? IMPRESSION:? Stable right knee alignment.? No fracture or dislocation.? No gross hardware complication. ? ? Dictated by: Rafat Hall M.D. on 02/22/2021 at 15:26 ? ? Approved by: Rafat Hall M.D. on 02/22/2021 at 15:27 ? CT scan - head: Radiologist's Impression: [address] [place] [address] CT Scan Report Signed Patient: Sheryl Lennon MR#: [id number] : 1955 Acct:[id number] Age/Sex: 65 / F Date of Service: 02/22/21 Loc: ED Accession Number: [id number] ?? Procedure: CT head/brain wo con Ordering Provider: Tara Cuba PROCEDURE:? CT HEAD/BRAIN WO CON ? INDICATIONS:? 4' fall, ? loc ? TECHNIQUE:? Noncontrast 4.5 mm thick angled axial sections acquired from the foramen magnum to the vertex, with coronal and sagittal reformats.? For radiation dose reduction, the following was used:? automated exposure control, adjustment of mA and/or kV according to patient size.? ? COMPARISON:? [facility], CT, CT FACIAL BONES WO CON, 02/22/2021, 15:04. ? FINDINGS:? Image quality:? Excellent.? ? CSF spaces:? Basal cisterns are patent.? No extra-axial fluid collections.? Ventricles are normal in size and shape.? ? Brain:? No midline shift.? No intracranial masses or hemorrhage.? Ivey-white matter interface is normal.? ? Skull and face:? There appear to be probable minimally displaced bilateral nasal bone fractures.? Calvarium and visualized facial bones are intact, without suspicious lesions. ? ? Sinuses:? Visualized sinuses and mastoids are clear.? ? IMPRESSION:? ? No acute intracranial abnormality. ? Probable minimally displaced bilateral nasal bone fractures.? ? Dictated by: Memo Olivo M.D. on 02/22/2021 at 14:10 ? ? Approved by: Memo Olivo M.D. on 02/22/2021 at 14:11 ? Face CT: Radiologist's Impression: [address] [place] [id number] [address] Scan Report Signed Patient: Sheryl Lennon MR#: [id number] : 1955 Acct:[id number] Age/Sex: 65 / F Date of Service: 02/22/21 Loc: ED Accession Number: [id number] ?? Procedure: CT facial bones wo con Ordering Provider: Tara Cuba PROCEDURE:? CT FACIAL BONES WO CON ? INDICATIONS:? 4' fall, hit face ? TECHNIQUE:? Noncontrast 2.5 mm thick axial images acquired from the mandible through the frontal sinuses, with coronal and sagittal reformatting.? For radiation dose reduction, the following was used:? automated exposure control, adjustment of mA and/or kV according to patient size.? ? COMPARISON:? None. ? FINDINGS:? Image quality:? Excellent.? ? Bones and teeth:? Possible minimally plate displaced bilateral nasal bone fractures.? Orbital granda are intact.? Sinus granda show no fracture or deformity.? Nasal bones and septum are intact.? Visualized portions of the mandible demonstrate no fractures or subluxation.? Zygomatic arches are intact.? Pterygoid plates are intact.? Visualized portions of the skull base and auditory canals are intact.? ? Sinuses:? Paranasal sinuses are aerated, without fluid levels, mucosal thickening, or mucoceles.? Mastoid air cells are aerated.? ? Soft tissues:? No edema, masses, or fluid collections.? No enlarged lymph nodes.? No soft tissue lacerations or debris.? ? Vascular:? Visualized vascular structures appear normal in the absence of contrast.? Bony vascular foramina and canals are intact.? ? IMPRESSION:? Possible minimally displaced bilateral nasal bone fractures, age indeterminate.? Otherwise no acute finding. ? ? Dictated by: Memo Olivo M.D. on 02/22/2021 at 14:12 ? ? Approved by: Memo Olivo M.D. on 02/22/2021 at 14:13 ? CT - cervical spine: Radiologist's Impression: [address] [place] [address] [address] [address] Scan Report Signed Patient: Sheryl Lennon MR#: [id number] : 1955 Acct:[id number] Age/Sex: 65 / F Date of Service: 02/22/21 Loc: ED Accession Number: [id number] ?? Procedure: CT cervical spine wo con Ordering Provider: Tara Cuba- PROCEDURE:? CT CERVICAL SPINE WO CON ? INDICATIONS:? 4' fall, neck pain ? TECHNIQUE:? Noncontrast 3 mm thick sections acquired from the skull base to the T4 level.? Sagittal and coronal reformats were then constructed.? For radiation dose reduction, the following was used:? automated exposure control, adjustment of mA and/or kV according to patient size.? ? COMPARISON:? None. ? FINDINGS:? Image quality:? Excellent.? ? Bones:? No fracture, subluxation, or dislocation.? Intervertebral disc spaces are congruent.? Facet joints are congruent without asymmetric widening.? Interspinous distances are normal. ? Soft tissues:? Prevertebral soft tissues are normal in thickness.? No paravertebral hematomas.? No apical pneumothoraces.? ? ? IMPRESSION:? No CT evidence of acute traumatic cervical spine injury. ? Dictated by: Memo Olivo M.D. on 02/22/2021 at 14:14 ? ? Approved by: Memo Olivo M.D. on 02/22/2021 at 14:16 ? [facility] Narrative Medical decision making narrative: The patient is a 65-year-old female who presents after a fall earlier today. Given that she hit her head, age over 65, and mechanism head CT was obtained this resulted negative. Given her facial trauma facial CT was obtained which shows probable nasal bone fractures. Fortunately her CT of her neck results no acute findings. Given the laceration over the bridge of her nose I will treat her for an open fracture. However she just started Levaquin yesterday from her public transportation inspector. Thus I spoke with Dr Delgado, and elected to rely on that antibiotic for coverage for her fracture. Fortunately all of her extremity x-rays show no acute findings. We did treat her for pain as documented in she felt improved. She states she does have pain medicine at home swallow rely on her use of that for pain control. I discussed at length follow up with primary care provider. She was seen by our social media content manager in the emergency department who will call her PCP tomorrow. I discussed that she should follow up with primary care provider in the next few days, the x-ray does not rule out soft tissue injury etcetera. We did update her tetanus today. Discussed coming back to the ER for any acute concerns. The patient does note that she had a ?black spot in her left eye vision that appeared during her stay in the emergency department. However she declines further workup regarding this, stating that she would rather follow-up. I did offer her further evaluation, but she declines states she wants to leave. This conversation occurred in front of [place]. <Hank Delgado MD - Last Filed: 02/28/21 12:19> Lab Data Labs: Lab Results 02/22/21 02/22/21 Range/Units 15:25 15:25 WBC 6.9 (4.5-11.0) X10^3/uL RBC 3.68 L (4.0-5.2) X10^6/uL Hgb 10.6 L (12.0-16.0) g/dL Hct 31.6 L (36-46) % MCV 85.9 (80-100) fL MCH 28.9 (26-34) PG MCHC 33.6 (30-36) % RDW 15.2 H (11.6-14.8) % Plt Count 253 (150-400) X10^3/uL Neut % (Auto) 60.3 (50-75) % Lymph % (Auto) 27.5 (25-40) % [place] % (Auto) 8.1 (3-14) % Eos % (Auto) 3.3 (2-4) % Baso % (Auto) 0.8 (0-2) % Neut # (Auto) 4200 (9967-6057) /uL Lymph # (Auto) 1900 (1809-0723) /uL [place] # (Auto) 600 (0-900) /uL Eos # (Auto) 200 (0-450) /uL Baso # (Auto) 100 (0-100) /uL Sodium 137 (137-145) mmol/L Potassium 3.7 (3.4-5.1) mmol/L Chloride 105 (98-107) mmol/L Carbon Dioxide 28 (22-32) mmol/L BUN 32 H (7-17) mg/dL Creatinine 1.16 H (0.52-1.04) mg/dL Estimated GFR 46.7 L (>60) mL/min BUN/Creatinine Ratio 27.6 H (6-22) Glucose 104 (80-110) mg/dL Calcium 9.3 (8.4-10.2) mg/dL Total Bilirubin 0.3 (0.2-1.3) mg/dL AST 38 H (14-36) IU/L ALT 21 (<35) IU/L Alkaline Phosphatase 86 (38-126) U/L Total Protein 6.6 (6.3-8.2) g/dL Albumin 3.8 (3.5-5.0) g/dL Globulin 2.8 (1.7-4.1) g/dL Albumin/Globulin Ratio 1.4 (1.0-2.8) Urine Dip Bedside Urine Glucose Negative Bedside Urine Bilirubin - Negative Bedside Urine Ketone - Negative Urine Specific [place] 1.010 Bedside Urine Occult Blood - Negative Bedside Urine pH 6.0 Bedside Urine Protein - Negative Bedside Urine Urobilinogen +/- 1mg Bedside Urine Nitrite - Negative Bedside Urine Leukocytes - Negative Esterase Discharge Plan Departure Patient Disposition: Home Clinical Impression: Fall, Laceration, Abrasion, Fracture of nasal bone, Acute shoulder pain Instructions: DI for Nose Fracture, How to Prevent Falls, DI for Shoulder Pain, DI for Minor Laceration, DI for Open Fracture Activity Restrictions/Additional Instructions: Thank you for trusting us with your care today. As I discussed, your shoulder, hip, elbow x-ray shows no acute fracture. This does not rule out a soft tissue injury such as a ligament or tendon injury. It is important that you follow up with primary care provider, especially if worsening or no improvement. There can be fractures that did not show up on initial x-ray. Unfortunately there is evidence of a broken nose. This combined with the fact that there is a cut over your broken nose is concerning for the possibility of infection. However the antibiotic that your public transportation inspector test point you on should help prevent this. Fortunately the pictures of your brain and neck also looked good. Please follow-up with primary care provider in the next few days. Please come back to the emergency department for any acute concerns. Prescriptions: No Action Trintellix 20 mg tablet 20 mg PO DAILY Qty: 30 5RF mirtazapine 7.5 mg tablet 7.5 mg PO BEDTIME PRN (Reason: sleep) Qty: 30 2RF Hold Instructions: not currently taking valsartan 40 mg tablet 20 mg PO BID 0RF metoprolol succinate 25 mg tablet extended release 24 hr 25 mg PO BID 0RF potassium chloride 20 mEq tablet extended release 10 meq PO DAILY PRN (Reason: Take w/lasix) 0RF Rx Instructions: Take w/lasix prn fluticasone propionate 50 mcg/actuation spray,suspension 1 spray intranasal BID 0RF Rx Instructions: administer into each nostril diazepam 5 mg tablet 5 mg PO TID PRN (Reason: Anxiety) Qty: 90 0RF levalbuterol HCl 0.63 mg/3 mL solution for nebulization 0.63 mg INHALATION Q8H PRN (Reason: shortness of breath or wheezing) Qty: 90 11RF methocarbamol 750 mg tablet 750 mg PO TID PRN (Reason: Spasms) Qty: 90 3RF Rx Instructions: PRN epinephrine 0.3 mg/0.3 mL auto-injector 0.3 mg IM ONCE PRN (Reason: Allergic Reaction) Qty: 1 11RF budesonide-formoterol [Symbicort] 80-4.5 mcg/actuation HFA aerosol inhaler 2 puff INHALATION BID Qty: 10.2 0RF quetiapine 25 mg tablet See Rx Instructions PO BID Qty: 30 1RF Rx Instructions: 1/2 tab p.o. b.i.d. as needed anxiety sumatriptan succinate 100 mg tablet 100 mg PO ONCE PRN (Reason: migraine headache) Qty: 14 3RF Rx Instructions: take at onset, may repeat in 2 hours if no relief, max daily dose 2 tabs montelukast 10 mg tablet 10 mg PO BEDTIME PRN (Reason: Allergy Symptoms) Qty: 90 3RF levalbuterol tartrate [Xopenex HFA] 45 mcg/actuation HFA aerosol inhaler 2 inhalation INHALATION BID 0RF Rx Instructions: may take every 6hrs prn at home lidocaine 5 % Ointment 1 applic TOPICAL TID PRN (Reason: pain) 0RF ketotifen fumarate [Zaditor] 0.025 % (0.035 %) Drops 1 drp OPHTHALMIC (EYE) BID 0RF furosemide 40 mg tablet 40 mg PO DAILY PRN (Reason: edema) Qty: 30 0RF Rx Instructions: Take 1 tablet daily as needed for edema methylprednisolone 4 mg tablet 4 mg PO DAILY Qty: 5 0RF famotidine [Pepcid] 20 mg tablet 20 mg PO BID Qty: 10 0RF sennosides [senna] 8.6 mg Tablet 17.2 mg PO BEDTIME PRN (Reason: Constipation) 0RF diphenhydramine HCl [Benadryl] 25 mg Capsule 75 mg PO DAILY PRN (Reason: Allergy Symptoms) 0RF omeprazole 40 mg Capsule,Delayed Release(Dr/Ec) 40 mg PO BID 0RF ondansetron 8 mg Tablet,Disintegrating 8 mg PO Q8H PRN (Reason: Nausea) 0RF hydromorphone 2 mg Tablet 2 mg PO Q4HR PRN (Reason: Pain, Severe (7-10)) Qty: 10 0RF furosemide [Lasix] 20 mg tablet 20 mg PO DAILY Qty: 3 0RF Referrals: Taye Mckeon MD [Primary Care Provider] - Becky Rod PA-C [Non-Staff] - <Hank Delgado MD - Last Filed: 02/28/21 12:19> [facility]: I was immediately available in the department for consultation. This documentation has been reviewed and I agree with assessment and plan. Supervised by Hank Delgado MD
--- NOTE | 2021-02-23 15:35 | CM.SWNOTE ---
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 It is reported that patient has already called and PCP office is scheduling appt for patient. It is reported by PCP office that patient's granddaughter is good support to patient. RAMAKRISHNA Napier
== END 2021-02-22 17:52 | disposition home or self-care (01) ==
PROVIDERS: Emergency Provider Nurse Practitioner Family; PCP Internal Medicine
DX: S02.2XXB Fracture of nasal bones, initial encounter for open fracture (principal); M54.2 Cervicalgia; S80.02XA Contusion of left knee, initial encounter; S80.01XA Contusion of right knee, initial encounter; M25.511 Pain in right shoulder; M25.521 Pain in right elbow; M25.559 Pain in unspecified hip; H53.8 Other visual disturbances; W18.30XA Fall on same level, unspecified, initial encounter; Y92.828 Other wilderness area as the place of occurrence of the external cause; Z23 Encounter for immunization
CPT/HCPCS: 36415; 70450; 70486; 72125; 72170; 73030; 73070; 73560; 80053; 81003; 85025; 90471; 96374; 96375; 99284; 90715; J1885; J2060

== ENCOUNTER 2021-02-25 12:40 | Emergency (ER) | payer MEDICARE, MEDICAID, SELFPAY ==
[2020-08-27 13:41] VITALS: BMI 35.4
[2021-02-25 12:43] VITALS: BP 122/68; PULSE 68; RESP 16; TEMP 36.2; O2SAT 96; BMI 33.6
--- NOTE | 2021-02-25 13:13 | ED_ITS ---
HPI - Extremity Injury (Upper) <Penny Christie, [facility] - Last Filed: 02/25/21 14:18> General Chief Complaint: Extremity Injury, Upper Stated Complaint: Fall 02/22, Rt Shoulder Pain Time Seen by Provider: 02/25/21 12:42 Source: patient Mode of arrival: Ambulatory History of Present Illness HPI narrative: 65-year-old female presents to the emergency department by POV complaining of worsening right shoulder pain since her fall injury on 02/22/2021. Patient reports that she occasionally has numbness and tingling from her shoulder to her elbow and into her fingertips but not currently. She denies any sensation of cold, she states that she lives alone and has been using her shoulder without a sling to complete her normal activities. She states that she went to her primary care office this morning to see her provider for her worsening pain but states her provider would not see her and she left for another appointment.Patient also endorses that she went to the see orthopedics who would not give her pain medication, she was instructed to follow-up with her primary care provider if that is what she wanted. Patient states she waited at her primary care office today for an hour and then left. Patient endorses that the pain is on the and anterior aspect of her shoulder, it is sharp, it is always hurting. She pushes herself up in bed and is using her arm to get her cellphone and make phone calls while we talk about this. Patient appears anxious and tearful and is trying to get pain control and nobody will help me she states. Patient's tetanus was updated at her last visit. She denies any ch est pain, shortness of breath, nausea vomiting, inability to use her right arm, or persistent sensation changes. Related Data Home Medications Medication Instructions Recorded Confirmed sennosides 8.6 mg tablet (senna) 17.2 mg PO BEDTIME PRN 09/20/18 01/27/21 potassium chloride 20 mEq 10 meq PO DAILY PRN 10/29/18 01/27/21 tablet,extended release levalbuterol tartrate 45 2 inhalation INHALATION BID gram 08/26/19 01/27/21 mcg/actuation aerosol inhaler (Xopenex HFA) diphenhydramine HCl 25 mg capsule 75 mg PO DAILY PRN 10/26/19 01/27/21 (Benadryl) omeprazole 40 mg capsule,delayed 40 mg PO BID 02/10/20 01/27/21 release lidocaine 5 % topical ointment 1 applic TOPICAL TID PRN 02/24/20 01/27/21 ketotifen fumarate 0.025 % (0.035 1 drp OPHTHALMIC (EYE) BID 03/02/20 01/27/21 %) eye drops (Zaditor) fluticasone propionate 50 1 spray INTRANASAL BID 04/02/20 01/27/21 mcg/actuation nasal spray,suspension ondansetron 8 mg disintegrating 8 mg PO Q8H PRN 06/29/20 01/27/21 tablet metoprolol succinate 25 mg 25 mg PO BID 01/27/21 01/27/21 tablet,extended release 24 hr valsartan 40 mg tablet 20 mg PO BID 01/27/21 01/27/21 Previous Rx's Medication Instructions Recorded levalbuterol HCl 0.63 mg/3 mL 0.63 mg (3 mL) INHALATION Q8H PRN 09/11/19 solution for nebulization #90 ml methocarbamol 750 mg tablet 750 mg PO TID PRN #90 tab 09/29/19 epinephrine 0.3 mg/0.3 mL 0.3 mg (0.3 mL) IM ONCE PRN #1 ea 01/01/20 injection, auto-injector budesonide-formoterol HFA 80 2 puff INHALATION BID #10.2 gram 01/28/20 mcg-4.5 mcg/actuation aerosol inhaler (Symbicort) montelukast 10 mg tablet 10 mg PO BEDTIME PRN #90 tab 02/23/20 sumatriptan succinate 100 mg tablet 100 mg PO ONCE PRN #14 tab 02/23/20 furosemide 40 mg tablet 40 mg PO DAILY PRN #30 tab 03/04/20 diazepam 5 mg tablet 5 mg PO TID PRN #90 tab 09/10/20 Trintellix 20 mg tablet 20 mg PO DAILY #30 tab NS 09/28/20 (vortioxetine) hydromorphone 2 mg tablet 2 mg PO Q4HR PRN #10 tab 11/22/20 mirtazapine 7.5 mg tablet 7.5 mg PO BEDTIME PRN #30 tab 11/24/20 famotidine 20 mg tablet (Pepcid) 20 mg PO BID #10 tab 01/12/21 methylprednisolone 4 mg tablet 4 mg PO DAILY #5 tab 01/12/21 furosemide 20 mg tablet (Lasix) 20 mg PO DAILY #3 tab 01/13/21 quetiapine 25 mg tablet See Rx Instructions PO BID #30 tab 01/18/21 Allergies Allergy/AdvReac Type Severity Reaction Status Date / Time Iodinated Contrast Media Allergy Severe Difficulty Verified 02/25/21 12:47 Breathing iodine Allergy Severe Difficulty Verified 02/25/21 12:47 Breathing latex Allergy Severe Rash Verified 02/25/21 12:47 morphine [MORPHINE] Allergy Severe Anaphylaxis Verified 02/25/21 12:47 Penicillins [PENICILLINS] Allergy Severe Anaphylaxis Verified 02/25/21 12:47 Sulfa (Sulfonamide Allergy Severe RASH Verified 02/25/21 12:47 Antibiotics) [SULFA (SULFONAMIDE ANTIBIOTICS)] azithromycin Allergy Intermediate Rash Verified 02/25/21 12:47 [From ZITHROMAX Z-MARILYN] cefuroxime [From Ceftin] Allergy Intermediate Rash Verified 02/25/21 12:47 sulfamethoxazole Allergy Intermediate RASH Verified 02/25/21 12:47 [From SEPTRA] trimethoprim [From SEPTRA] Allergy Intermediate RASH Verified 02/25/21 12:47 ciprofloxacin [From Cipro] Allergy Pt does Verified 02/25/21 12:47 not remember reaction Corticosteroids Allergy Swelling Verified 02/25/21 12:47 (Glucocorticoids) of Lip/Tongue/Throat cephalexin [From Keflex] AdvReac Severe Fever, Verified 02/25/21 12:47 Asthma, Tachycardia prednisone AdvReac Severe nausea and Verified 02/25/21 12:47 feels very weak, and axious verapamil AdvReac Intermediate Asthma Verified 02/25/21 12:47 symptoms zonisamide AdvReac Intermediate Asthma Verified 02/25/21 12:47 symptoms Review of Systems <Penny Christie [facility] - Last Filed: 02/25/21 14:18> Review of Systems Narrative: General: denies fever, chills, malaise, sweats, fatigue Head/Neck: denies headache, neck pain, dizziness Eyes: denies visual changes, eye pain Cardio: denies chest pain, palpitations, edema Respiratory: denies dyspnea, cough, orthopnea GI: denies abdominal pain, nausea, vomiting, or diarrhea : denies dysuria, hematuria, urinary retention, frequency or incontinence MSK: Endorses right shoulder pain, facial pain from her nose fracture, denies any muscle weakness Skin: denies rash, itching, skin lesions or other Neuro: Endorses occasional numbness and tingling in her right arm but not currently. No sensation of cold Patient History <ILAN Castañeda - Last Filed: 02/25/21 14:18> Medical History Anemia Anxiety Asthma Chronic back pain Chronic cough Depression Femur fracture, left Fibromyalgia Fractures GERD (gastroesophageal reflux disease) Hiatal hernia Recurrent sinusitis Venous insufficiency (chronic) (peripheral) Surgical History Anesthesia History of eye surgery (~1973) History of foot surgery History of hysterectomy (~1979) History of shoulder surgery (~2011) History of tonsillectomy (~1975) Hx of bilateral cataract extraction Family History Mother Heart disease Social History marital status: number of children: 1 household members: none lives independently: Yes caregiver/support person: Yes (3 afternoons per week) pets and animals: Yes occupational status: disabled Smoking Status: Never smoker alcohol intake: never substance use type: does not use Smoking Status: Never smoker alcohol intake frequency: holidays/special occasions only Substance Use Type: does not use Exam <ILAN Castañeda - Last Filed: 02/25/21 14:18> Narrative Exam Narrative: Independently reviewed vitals signs and nursing notes. General: Awake, alert, anxious well-nourished and developed, nontoxic, no cardiorespiratory distress Head/Neck: Face with bruising around her nose and above her eyebrows neck full range of motion, trachea midline, no JVD or lymphadenopathy. Supple, nontender, no meningeal signs. Eyes: Pupils equal round and reactive, EOMI, conjunctiva normal, no scleral icterus or injections Nose: nares patent, no rhinorrhea, without purulent drainage or septal hematoma. Mouth/Throat: uvula midline, moist mucus membranes, posterior pharynx normal, no oral lesions, airway patent Cardio: Regular rate and rhythm, no peripheral edema, warm extremities Respiratory: respirations unlabored without wheezing, stridor, or rales. No retractions. GI: Abdomen soft, nontender, nondistended, no hepato-spenomegaly MSK: Moves all extremities, neurovascularly intact, no flank tenderness Skin: Normal capillary refill, no rash Neuro: Normal speech and cognition, normal gait, A&O x3 Initial Vital Signs Initial Vital Signs: Vital Signs Temperature 97.2 F L 02/25/21 12:43 Pulse Rate 68 02/25/21 12:43 Respiratory Rate 16 02/25/21 12:43 Blood Pressure 122/68 02/25/21 12:43 Pulse Oximetry 96 02/25/21 12:43 <Traa Galvez DO - Last Filed: 02/25/21 18:53> Initial Vital Signs Initial Vital Signs: Vital Signs Temperature 97.2 F L 02/25/21 12:43 Pulse Rate 68 02/25/21 12:43 Respiratory Rate 16 02/25/21 12:43 Blood Pressure 122/68 02/25/21 12:43 Pulse Oximetry 96 02/25/21 12:43 Course <ILAN Castañeda - Last Filed: 02/25/21 14:18> Vital Signs Vital signs: Vital Signs - 8 hr 02/25/21 12:43 Temperature 97.2 F L Pulse Rate 68 Respiratory Rate 16 Blood Pressure 122/68 Pulse Oximetry 96 <Tara Galvez DO - Last Filed: 02/25/21 18:53> Vital Signs Vital signs: Vital Signs - 8 hr 02/25/21 12:43 Temperature 97.2 F L Pulse Rate 68 Respiratory Rate 16 Blood Pressure 122/68 Pulse Oximetry 96 MDM - Extremity Injury (Upper) <ILAN Castañeda - Last Filed: 02/25/21 14:18> MDM Narrative Medical decision making narrative: 65-year-old female presents to the emergency department complaining of right shoulder pain which is worsening since her injury on 02/22/2021. Patient endorses that she was going to see her primary care provider this morning for pain medicines since the orthopedic physicians she saw yesterday denied ordering her pain medication for this injury. She was at the office for an hour, she states that her provider could not see her so she decided to leave and go to another appointment and came to the emergency department requesting pain medication. When x-ray came by to take her for imaging, she refused and said that she needed pain medication 1st. Her and I discussed since she drove her own vehicle that she would need a ride to have any sedating like medications. She also told me that she took a 1000 mg of Tylenol, 800 of ibuprofen before she came here and is looking for something stronger for pain. Patient became angry, refused x-ray, she was using her right arm without any deficit, she even pushed her body off the bed with her arm and did not complain of pain. Patient stormed out of the emergency department against medical advice saying that she needs pain medication and we are for refusing to treat her. Patient later called to discuss her frustration and is requesting an MRI order. Patient was instructed that she does need to follow-up with her primary care provider to have this scheduled as an outpatient. Patient was very angry, she was not given any medication, she did not wait to be discharge. Discharge Plan Departure Patient Disposition: Left Against Medical Advice Clinical Impression: Left against medical advice Prescriptions: No Action Trintellix 20 mg tablet 20 mg PO DAILY Qty: 30 5RF mirtazapine 7.5 mg tablet 7.5 mg PO BEDTIME PRN (Reason: sleep) Qty: 30 2RF Hold Instructions: not currently taking valsartan 40 mg tablet 20 mg PO BID 0RF metoprolol succinate 25 mg tablet extended release 24 hr 25 mg PO BID 0RF potassium chloride 20 mEq tablet extended release 10 meq PO DAILY PRN (Reason: Take w/lasix) 0RF Rx Instructions: Take w/lasix prn fluticasone propionate 50 mcg/actuation spray,suspension 1 spray intranasal BID 0RF Rx Instructions: administer into each nostril diazepam 5 mg tablet 5 mg PO TID PRN (Reason: Anxiety) Qty: 90 0RF levalbuterol HCl 0.63 mg/3 mL solution for nebulization 0.63 mg INHALATION Q8H PRN (Reason: shortness of breath or wheezing) Qty: 90 11RF methocarbamol 750 mg tablet 750 mg PO TID PRN (Reason: Spasms) Qty: 90 3RF Rx Instructions: PRN epinephrine 0.3 mg/0.3 mL auto-injector 0.3 mg IM ONCE PRN (Reason: Allergic Reaction) Qty: 1 11RF budesonide-formoterol [Symbicort] 80-4.5 mcg/actuation HFA aerosol inhaler 2 puff INHALATION BID Qty: 10.2 0RF quetiapine 25 mg tablet See Rx Instructions PO BID Qty: 30 1RF Rx Instructions: 1/2 tab p.o. b.i.d. as needed anxiety sumatriptan succinate 100 mg tablet 100 mg PO ONCE PRN (Reason: migraine headache) Qty: 14 3RF Rx Instructions: take at onset, may repeat in 2 hours if no relief, max daily dose 2 tabs montelukast 10 mg tablet 10 mg PO BEDTIME PRN (Reason: Allergy Symptoms) Qty: 90 3RF levalbuterol tartrate [Xopenex HFA] 45 mcg/actuation HFA aerosol inhaler 2 inhalation INHALATION BID 0RF Rx Instructions: may take every 6hrs prn at home lidocaine 5 % Ointment 1 applic TOPICAL TID PRN (Reason: pain) 0RF ketotifen fumarate [Zaditor] 0.025 % (0.035 %) Drops 1 drp OPHTHALMIC (EYE) BID 0RF furosemide 40 mg tablet 40 mg PO DAILY PRN (Reason: edema) Qty: 30 0RF Rx Instructions: Take 1 tablet daily as needed for edema methylprednisolone 4 mg tablet 4 mg PO DAILY Qty: 5 0RF famotidine [Pepcid] 20 mg tablet 20 mg PO BID Qty: 10 0RF sennosides [senna] 8.6 mg Tablet 17.2 mg PO BEDTIME PRN (Reason: Constipation) 0RF diphenhydramine HCl [Benadryl] 25 mg Capsule 75 mg PO DAILY PRN (Reason: Allergy Symptoms) 0RF omeprazole 40 mg Capsule,Delayed Release(Dr/Ec) 40 mg PO BID 0RF ondansetron 8 mg Tablet,Disintegrating 8 mg PO Q8H PRN (Reason: Nausea) 0RF hydromorphone 2 mg Tablet 2 mg PO Q4HR PRN (Reason: Pain, Severe (7-10)) Qty: 10 0RF furosemide [Lasix] 20 mg tablet 20 mg PO DAILY Qty: 3 0RF Referrals: Becky Rod PA-C [Primary Care Provider] - Stand Alone Forms: Against Medical Advice <Tara Galvez DO - Last Filed: 02/25/21 18:53> Cosign ED Attending [place] Attestation: I was immediately available in the department for consultation. Documentation has been reviewed. Patient was visualized in the department by myself. She was able to ambulate without issue.
--- NOTE | 2021-02-25 13:29 | PC.NURSE ---
Pt declined x ray, refused tylenol / ibuprofen, verbally abusive to staff and walked out w/o difficulty. Carried her purse in right arm, opened door w/o difficulty.
--- NOTE | 2021-02-25 14:05 | PC.NURSE ---
Pt called ED x 2. 1st call with myself: She was upset she was not prescribed pain medication. I discussed with patient that she was offered tylenol / ibuprofen and refused, then left department. Informed pt that I could not tell her what provider would order and it was up to providers discretion what was prescribed. She hung up on me. 2nd call first taken by COLLEEN Rosario, then myself. Pt again verbalized dissatisfaction with care, I stated that she was welcome to return at any time but it was up to the provider what was ordered. She stated she wanted an MRI. I informed her that MRIs out of the ED was rare for extremity issues and it would be (again) up to the provider. Pt continued to verbalize dissatisfaction. I asked if she would like a phone number to call to file a complaint. She hung up on me.
== END 2021-02-25 13:31 | disposition left against medical advice (07) ==
PROVIDERS: Emergency Provider Nurse Practitioner Critical Care Medicine; PCP Physician Assistant
DX: M25.511 Pain in right shoulder (principal); Z88.5 Allergy status to narcotic agent; Z53.29 Procedure and treatment not carried out because of patient's decision for other reasons
CPT/HCPCS: 99281

== ENCOUNTER 2021-02-26 13:07 | Emergency (ER) | payer MEDICARE, MEDICAID, SELFPAY ==
[2020-08-27 13:41] VITALS: BMI 35.4
[2021-02-26 13:24] VITALS: BP 132/61; PULSE 79; RESP 20; TEMP 36.6; O2SAT 96; BMI 34.5
--- NOTE | 2021-02-26 13:28 | DI.RAD.S_ITS ---
PROCEDURE: XR CHEST 2V INDICATIONS: SP fall, pain with inspiration. TECHNIQUE: 2 views of the chest were acquired. COMPARISON: [facility], CR, XR CHEST 1V, 01/20/2021, 12:23. FINDINGS: Surgical changes and devices: Partially visualized cervical fixation hardware as well as left humeral fixation. Lungs and pleura: Increased interstitial pulmonary opacities are present. Mediastinum: Lucency is present the retrocardiac region suggestive of hiatal hernia. It is unchanged Heart size is enlarged. Bones and chest wall: No suspicious bony abnormalities. Soft tissues appear unremarkable. IMPRESSION: Increased pulmonary opacities suggestive of edema. However superimposed areas of airspace disease such as pneumonia cannot be definitively excluded. Dictated by: Gretchen Painter M.D. on 02/26/2021 at 14:28 Approved by: Gretchen Painter M.D. on 02/26/2021 at 14:29
--- NOTE | 2021-02-26 15:56 | ED.FALL ---
HPI - Fall General Chief Complaint: Fall Stated Complaint: hard time breathing, pain in ribs, fall Time Seen by Provider: 02/26/21 13:11 Source: patient Mode of arrival: Ambulatory History of Present Illness HPI Narrative: Patient is a 65-year-old female who was seen here in the emergency department yesterday for shoulder pain after a fall. Eventually left against medical advice secondary to issues over her pain management. Patient returns to the emergency department today stating that she is having hard times breathing. She does have rib discomfort. Bruising on her face. She also has lower extremity swelling that has been worsening recently as well. She has a wound on her left lakhani from the fall yesterday. States that is weeping. She has been placing bandage over the area and having to change her frequently because it is becoming saturated. She is on diuretics by her manager marketing sales. She does have a history of a cardiomyopathy. No recent change in his diuretics and she has been taking them as directed. Related Data Home Medications Medication Instructions Recorded Confirmed sennosides 8.6 mg tablet (senna) 17.2 mg PO BEDTIME PRN 09/20/18 01/27/21 potassium chloride 20 mEq 10 meq PO DAILY PRN 10/29/18 01/27/21 tablet,extended release levalbuterol tartrate 45 2 inhalation INHALATION BID gram 08/26/19 01/27/21 mcg/actuation aerosol inhaler (Xopenex HFA) diphenhydramine HCl 25 mg capsule 75 mg PO DAILY PRN 10/26/19 01/27/21 (Benadryl) omeprazole 40 mg capsule,delayed 40 mg PO BID 02/10/20 01/27/21 release lidocaine 5 % topical ointment 1 applic TOPICAL TID PRN 02/24/20 01/27/21 ketotifen fumarate 0.025 % (0.035 1 drp OPHTHALMIC (EYE) BID 03/02/20 01/27/21 %) eye drops (Zaditor) fluticasone propionate 50 1 spray INTRANASAL BID 04/02/20 01/27/21 mcg/actuation nasal spray,suspension ondansetron 8 mg disintegrating 8 mg PO Q8H PRN 06/29/20 01/27/21 tablet metoprolol succinate 25 mg 25 mg PO BID 01/27/21 01/27/21 tablet,extended release 24 hr valsartan 40 mg tablet 20 mg PO BID 01/27/21 01/27/21 Previous Rx's Medication Instructions Recorded levalbuterol HCl 0.63 mg/3 mL 0.63 mg (3 mL) INHALATION Q8H PRN 09/11/19 solution for nebulization #90 ml methocarbamol 750 mg tablet 750 mg PO TID PRN #90 tab 09/29/19 epinephrine 0.3 mg/0.3 mL 0.3 mg (0.3 mL) IM ONCE PRN #1 ea 01/01/20 injection, auto-injector budesonide-formoterol HFA 80 2 puff INHALATION BID #10.2 gram 01/28/20 mcg-4.5 mcg/actuation aerosol inhaler (Symbicort) montelukast 10 mg tablet 10 mg PO BEDTIME PRN #90 tab 02/23/20 sumatriptan succinate 100 mg tablet 100 mg PO ONCE PRN #14 tab 02/23/20 furosemide 40 mg tablet 40 mg PO DAILY PRN #30 tab 03/04/20 diazepam 5 mg tablet 5 mg PO TID PRN #90 tab 09/10/20 Trintellix 20 mg tablet 20 mg PO DAILY #30 tab NS 09/28/20 (vortioxetine) hydromorphone 2 mg tablet 2 mg PO Q4HR PRN #10 tab 11/22/20 mirtazapine 7.5 mg tablet 7.5 mg PO BEDTIME PRN #30 tab 11/24/20 famotidine 20 mg tablet (Pepcid) 20 mg PO BID #10 tab 01/12/21 methylprednisolone 4 mg tablet 4 mg PO DAILY #5 tab 01/12/21 furosemide 20 mg tablet (Lasix) 20 mg PO DAILY #3 tab 01/13/21 quetiapine 25 mg tablet See Rx Instructions PO BID #30 tab 01/18/21 Allergies Allergy/AdvReac Type Severity Reaction Status Date / Time Iodinated Contrast Media Allergy Severe Difficulty Verified 02/26/21 13:24 Breathing iodine Allergy Severe Difficulty Verified 02/26/21 13:24 Breathing latex Allergy Severe Rash Verified 02/26/21 13:24 morphine [MORPHINE] Allergy Severe Anaphylaxis Verified 02/26/21 13:24 Penicillins [PENICILLINS] Allergy Severe Anaphylaxis Verified 02/26/21 13:24 Sulfa (Sulfonamide Allergy Severe RASH Verified 02/26/21 13:24 Antibiotics) [SULFA (SULFONAMIDE ANTIBIOTICS)] azithromycin Allergy Intermediate Rash Verified 02/26/21 13:24 [From ZITHROMAX Z-MARILYN] cefuroxime [From Ceftin] Allergy Intermediate Rash Verified 02/26/21 13:24 sulfamethoxazole Allergy Intermediate RASH Verified 02/26/21 13:24 [From SEPTRA] trimethoprim [From SEPTRA] Allergy Intermediate RASH Verified 02/26/21 13:24 ciprofloxacin [From Cipro] Allergy Pt does Verified 02/26/21 13:24 not remember reaction Corticosteroids Allergy Swelling Verified 02/26/21 13:24 (Glucocorticoids) of Lip/Tongue/Throat cephalexin [From Keflex] AdvReac Severe Fever, Verified 02/26/21 13:24 Asthma, Tachycardia prednisone AdvReac Severe nausea and Verified 02/26/21 13:24 feels very weak, and axious verapamil AdvReac Intermediate Asthma Verified 02/26/21 13:24 symptoms zonisamide AdvReac Intermediate Asthma Verified 02/26/21 13:24 symptoms Review of Systems Constitutional Constitutional: Denies fever(s) and Denies headache(s) ENT Ears, Nose, Mouth, and Throat: Denies headache(s) Cardiovascular Cardiovascular: Reports dyspnea and Reports dyspnea on exertion Respiratory Respiratory: Reports dyspnea and Reports dyspnea on exertion Gastrointestinal Gastrointestinal: Reports system reviewed and no additional complaints, except as documented Musculoskeletal Comments: Lower extremity edema Integumentary/Breasts Skin/Breast: Reports system reviewed and no additional complaints, except as documented and Reports as per HPI Neurologic Neurologic: Denies headache(s) Hematologic/Lymphatic On Anticoagulants: No Allergic/Immunologic Allergic/Immunologic: Reports system reviewed and no additional complaints, except as documented Patient History Medical History Anemia Anxiety Asthma Chronic back pain Chronic cough Depression Femur fracture, left Fibromyalgia Fractures GERD (gastroesophageal reflux disease) Hiatal hernia Recurrent sinusitis Venous insufficiency (chronic) (peripheral) Surgical History Anesthesia History of eye surgery (~1973) History of foot surgery History of hysterectomy (~1979) History of shoulder surgery (~2011) History of tonsillectomy (~1975) Hx of bilateral cataract extraction Family History Mother Heart disease Social History marital status: number of children: 1 household members: none lives independently: Yes caregiver/support person: Yes (3 afternoons per week) pets and animals: Yes occupational status: disabled Smoking Status: Never smoker alcohol intake: never substance use type: does not use Smoking Status: Never smoker alcohol intake frequency: holidays/special occasions only Substance Use Type: does not use Exam Initial Vital Signs Initial Vital Signs: Vital Signs Temperature 97.8 F 02/26/21 13:24 Pulse Rate 79 02/26/21 13:24 Respiratory Rate 20 02/26/21 13:24 Blood Pressure 132/61 02/26/21 13:24 Pulse Oximetry 96 02/26/21 13:24 HENMT Head: normal to inspection and normocephalic Resp Effort & Inspection: normal respiratory effort Auscultation: crackles Cardio Rate: regular rate GI Inspection: normal to inspection Skin Other: Patient with a superficial wound left anterior lakhani. Is draining serosanguineous fluid but no signs of erythema. Neuro General: patient alert, patient awake, patient oriented x3 and moves all extremities Extrem General: edema Psych Appearance: grossly normal Course Orders Ordered: ED Orders 02/26/21 13:28 XR chest 2V Stat 02/26/21 15:57 EKG-12 Lead Stat 02/26/21 16:08 Basic Metabolic Panel Stat Complete Blood Count AUTO DIFF Stat NT-proBNP (BNP-Adult 18+) Stat Troponin & CK Cardiac Panel Stat Discontinued Medications Hydrocodone Bitart/Acetaminophen (Hydrocodone/Acet 5/325 Tablet) 1 tab PO NOW ONE Stop: 02/26/21 15:57 Last Admin: 02/26/21 16:12 Dose: 1 tab Documented by: VENKATA Hydrocodone Bitart/Acetaminophen (Hydrocodone/Acet 5/325 Prepack) 1 bottle MISC SEEINSTR ONE Stop: 02/26/21 17:54 Last Admin: 02/26/21 17:58 Dose: 1 bottle Documented by: VENKATA Furosemide (Furosemide 40 Mg/4 Ml Vial) 40 mg IV NOW ONE Stop: 02/26/21 15:57 Last Admin: 02/26/21 16:12 Dose: 40 mg Documented by: RLAZANI Vital Signs Vital signs: Vital Signs - 8 hr 02/26/21 13:24 02/26/21 17:42 Temperature 97.8 F Pulse Rate 79 67 Respiratory Rate 20 18 Blood Pressure 132/61 125/72 Pulse Oximetry 96 98 MDM - Fall Lab Data Attestation: I reviewed the patient's lab results. Result diagrams: 02/26/21 16:08 02/26/21 16:08 Labs: Lab Results 02/26/21 02/26/21 Range/Units 16:08 16:08 WBC 7.1 (4.5-11.0) X10^3/uL RBC 3.37 L (4.0-5.2) X10^6/uL Hgb 9.6 L (12.0-16.0) g/dL Hct 29.1 L (36-46) % MCV 86.3 (80-100) fL MCH 28.6 (26-34) PG MCHC 33.1 (30-36) % RDW 14.9 H (11.6-14.8) % Plt Count 259 (150-400) X10^3/uL Neut % (Auto) 69.9 (50-75) % Lymph % (Auto) 21.3 L (25-40) % Irwin % (Auto) 5.6 (3-14) % Eos % (Auto) 2.1 (2-4) % Baso % (Auto) 1.1 (0-2) % Neut # (Auto) 5000 (8316-5700) /uL Lymph # (Auto) 1500 (8544-7715) /uL Irwin # (Auto) 400 (0-900) /uL Eos # (Auto) 100 (0-450) /uL Baso # (Auto) 100 (0-100) /uL Sodium 142 (137-145) mmol/L Potassium 3.9 (3.4-5.1) mmol/L Chloride 110 H (98-107) mmol/L Carbon Dioxide 28 (22-32) mmol/L BUN 22 H (7-17) mg/dL Creatinine 0.81 (0.52-1.04) mg/dL Estimated GFR > 60.0 (>60) mL/min BUN/Creatinine Ratio 27.2 H (6-22) Glucose 105 (80-110) mg/dL Calcium 9.5 (8.4-10.2) mg/dL Total Creatine Kinase 394 H (30-135) U/L CK-MB (CK-2) 4.26 H (<2.37) ng/mL CK-MB (CK-2) Rel Index 1.1 L (1.5-5.0) % Troponin I < 0.012 (0.01-0.034) ng/mL NT-Pro-B Natriuret Pep 771 H (<125) pg/mL Imaging Data Chest x-ray: Radiologist's Impression: [address] [address] XRay Report Signed Patient: Sheryl Lennon MR#: [id number] : 1955 Acct:[id number] Age/Sex: 65 / F Date of Service: 02/26/21 Loc: ED Accession Number: [id number] ?? Procedure: XR chest 2V Ordering Provider: Kin Carrion D.O. PROCEDURE:? XR CHEST 2V ? INDICATIONS:? SP fall, pain with inspiration. ? TECHNIQUE:? 2 views of the chest were acquired.? ? COMPARISON:? [facility], CR, XR CHEST 1V, 01/20/2021, 12:23. ? FINDINGS:? ? Surgical changes and devices:? Partially visualized cervical fixation hardware as well as left humeral fixation. ? Lungs and pleura:? Increased interstitial pulmonary opacities are present. ? Mediastinum:? Lucency is present the retrocardiac region suggestive of hiatal hernia.? It is unchanged? Heart size is enlarged. ? Bones and chest wall:? No suspicious bony abnormalities.? Soft tissues appear unremarkable.? ? IMPRESSION:? Increased pulmonary opacities suggestive of edema.? However superimposed areas of airspace disease such as pneumonia cannot be definitively excluded. ? ? Dictated by: Gretchen Painter M.D. on 02/26/2021 at 14:28 ? ? Approved by: Gretchen Painter M.D. on 02/26/2021 at 14:29?? ECG Data Attestation: I personally reviewed and interpreted this ECG as follows: Interpretation: Sinus rhythm Ventricular rate is 69 Normal QRS Normal QTC No ST T wave changes MDM Narrative Medical decision making narrative: Patient was given Lasix and diuresed. She stated that she felt somewhat better after this. Chest x-ray shows pulmonary edema. She is not clinically in heart failure. The abrasion on her left she needs no intervention. Of suspicion for ACS. We did discuss increasing her diuretics at home to try to help improve her edema. She will contact her manager marketing sales for follow-up. She was given return precautions. She expressed understanding and agreement. Discharge Plan Departure Patient Disposition: Home Clinical Impression: Left shoulder pain, Edema Instructions: Edema (Alternative Therapy), Edema Activity Restrictions/Additional Instructions: I recommend that you continue to take all of your medications as directed. You can either increase your diuretic your currently taking like we discussed or at the Lasix like we discussed. Use the pain medicine as needed. Contact her primary doctor and also your manager marketing sales for follow-up. Return to the emergency department for any new or worsening symptoms. Prescriptions: No Action Trintellix 20 mg tablet 20 mg PO DAILY Qty: 30 5RF mirtazapine 7.5 mg tablet 7.5 mg PO BEDTIME PRN (Reason: sleep) Qty: 30 2RF Hold Instructions: not currently taking valsartan 40 mg tablet 20 mg PO BID 0RF metoprolol succinate 25 mg tablet extended release 24 hr 25 mg PO BID 0RF potassium chloride 20 mEq tablet extended release 10 meq PO DAILY PRN (Reason: Take w/lasix) 0RF Rx Instructions: Take w/lasix prn fluticasone propionate 50 mcg/actuation spray,suspension 1 spray intranasal BID 0RF Rx Instructions: administer into each nostril diazepam 5 mg tablet 5 mg PO TID PRN (Reason: Anxiety) Qty: 90 0RF levalbuterol HCl 0.63 mg/3 mL solution for nebulization 0.63 mg INHALATION Q8H PRN (Reason: shortness of breath or wheezing) Qty: 90 11RF methocarbamol 750 mg tablet 750 mg PO TID PRN (Reason: Spasms) Qty: 90 3RF Rx Instructions: PRN epinephrine 0.3 mg/0.3 mL auto-injector 0.3 mg IM ONCE PRN (Reason: Allergic Reaction) Qty: 1 11RF budesonide-formoterol [Symbicort] 80-4.5 mcg/actuation HFA aerosol inhaler 2 puff INHALATION BID Qty: 10.2 0RF quetiapine 25 mg tablet See Rx Instructions PO BID Qty: 30 1RF Rx Instructions: 1/2 tab p.o. b.i.d. as needed anxiety sumatriptan succinate 100 mg tablet 100 mg PO ONCE PRN (Reason: migraine headache) Qty: 14 3RF Rx Instructions: take at onset, may repeat in 2 hours if no relief, max daily dose 2 tabs montelukast 10 mg tablet 10 mg PO BEDTIME PRN (Reason: Allergy Symptoms) Qty: 90 3RF levalbuterol tartrate [Xopenex HFA] 45 mcg/actuation HFA aerosol inhaler 2 inhalation INHALATION BID 0RF Rx Instructions: may take every 6hrs prn at home lidocaine 5 % Ointment 1 applic TOPICAL TID PRN (Reason: pain) 0RF ketotifen fumarate [Zaditor] 0.025 % (0.035 %) Drops 1 drp OPHTHALMIC (EYE) BID 0RF furosemide 40 mg tablet 40 mg PO DAILY PRN (Reason: edema) Qty: 30 0RF Rx Instructions: Take 1 tablet daily as needed for edema methylprednisolone 4 mg tablet 4 mg PO DAILY Qty: 5 0RF famotidine [Pepcid] 20 mg tablet 20 mg PO BID Qty: 10 0RF sennosides [senna] 8.6 mg Tablet 17.2 mg PO BEDTIME PRN (Reason: Constipation) 0RF diphenhydramine HCl [Benadryl] 25 mg Capsule 75 mg PO DAILY PRN (Reason: Allergy Symptoms) 0RF omeprazole 40 mg Capsule,Delayed Release(Dr/Ec) 40 mg PO BID 0RF ondansetron 8 mg Tablet,Disintegrating 8 mg PO Q8H PRN (Reason: Nausea) 0RF hydromorphone 2 mg Tablet 2 mg PO Q4HR PRN (Reason: Pain, Severe (7-10)) Qty: 10 0RF furosemide [Lasix] 20 mg tablet 20 mg PO DAILY Qty: 3 0RF Referrals: Becky Rod PA-C [Primary Care Provider] -
[2021-02-26] MEDS: HYDROCODONE/ACET 5/325 TABLET 1 TAB PO (16:12)
[2021-02-26] MEDS: FUROSEMIDE 40 MG/4 ML VIAL IV (16:12)
[2021-02-26 16:20] LABS: Add Manual Diff / Slide Review NO; Basophils Absolute Auto 100 /uL (0-100); Basophils Percent Auto 1.1 % (0-2); Eosinophils Absolute Auto 100 /uL (0-450); Eosinophils Percent Auto 2.1 % (2-4); Hematocrit 29.1 % (36-46); Hemoglobin 9.6 g/dL (12.0-16.0); Lymphocytes Absolute Auto 1500 /uL (1100-4500); Lymphocytes Percent Auto 21.3 % (25-40); Mean Corpuscular HGB Conc 33.1 % (30-36); Mean Corpuscular Hemoglobin 28.6 PG (26-34); Mean Corpuscular Volume 86.3 fL (80-100); Monocytes Absolute Auto 400 /uL (0-900); Monocytes Percent Auto 5.6 % (3-14); Neutrophils Absolute Auto 5000 /uL (1500-7000); Neutrophils Percent Auto 69.9 % (50-75); Platelet Count 259 X10^3/uL (150-400); Red Blood Cell Count 3.37 X10^6/uL (4.0-5.2); Red Cell Distribution Width 14.9 % (11.6-14.8); White Blood Cell Count 7.1 X10^3/uL (4.5-11.0)
[2021-02-26 16:27] LABS: BUN Creatinine Ratio 27.2 (6-22); Blood Urea Nitrogen 22 mg/dL (7-17); Calcium 9.5 mg/dL (8.4-10.2); Carbon Dioxide 28 mmol/L (22-32); Chloride 110 mmol/L (98-107); Creatine Kinase 394 U/L (30-135); Estimated Glomerular Filt Rate > 60.0 mL/min (>60); Glucose 105 mg/dL (80-110); HEMOLYSIS < 15 (0-50); Potassium 3.9 mmol/L (3.4-5.1); Sodium 142 mmol/L (137-145)
[2021-02-26 16:39] LABS: NT-proBNP (BNP-Adult 18+) 771 pg/mL (<125); Troponin I < 0.012 ng/mL (0.01-0.034)
[2021-02-26 16:42] LABS: CKMB % Relative Index 1.1 % (1.5-5.0); Creatine Kinase MB 4.26 ng/mL (<2.37)
[2021-02-26 17:42] VITALS: BP 125/72; PULSE 67; RESP 18; O2SAT 98
[2021-02-26] MEDS: HYDROCODONE/ACET 5/325 PREPACK 1 BOTTLE MISC (17:58)
--- NOTE | 2021-02-28 18:44 | PC.NURSE ---
Received phone call from ED at [facility]. Pt is in their ED and they have been unable to reach medical records. Faxed recent visit reports from February to their ED @ [phone].
== END 2021-02-26 18:15 | disposition home or self-care (01) ==
PROVIDERS: Emergency Provider Emergency Medicine; PCP Physician Assistant
DX: M25.512 Pain in left shoulder (principal); R60.9 Edema, unspecified; R06.00 Dyspnea, unspecified; R07.9 Chest pain, unspecified
CPT/HCPCS: 36415; 71046; 80048; 82550; 82553; 83880; 84484; 85025; 93005; 93010; 96374; 99284; J1940

== ENCOUNTER 2021-03-01 02:01 | Emergency (ER) | payer MEDICARE, MEDICAID, SELFPAY ==
[2020-08-27 13:41] VITALS: BMI 35.4
[2021-03-01 02:25] VITALS: BP 144/81; PULSE 70; RESP 22; TEMP 36.6; O2SAT 97; BMI 34.5
--- NOTE | 2021-03-01 02:34 | DI.RAD.S_ITS ---
PROCEDURE: XR CHEST 1V INDICATIONS: chest pain TECHNIQUE: One view of the chest was acquired. COMPARISON: [facility], CR, XR CHEST 2V, 02/26/2021, 13:27. FINDINGS: Surgical changes and devices: None. Lungs and pleura: Lungs are clear. No pleural effusions or pneumothorax. Mediastinum: Mediastinal contours appear normal. Unchanged cardiomegaly. Moderately large hiatal hernia. Bones and chest wall: No suspicious bony lesions. Overlying soft tissues appear unremarkable. IMPRESSION: Stable findings. Cardiomegaly, hiatal hernia. Comment: Final report is concordant with preliminary interpretation provided by [facility]. Dictated by: Michael Serrato M.D. on 03/01/2021 at 8:04 Approved by: Michael Serrato M.D. on 03/01/2021 at 8:05
--- NOTE | 2021-03-01 02:39 | ED.EXTPRO ---
HPI - Extremity Problem General Chief complaint: Extremity Problem,Nontraumatic Stated complaint: adema both legs Time Seen by Provider: 03/01/21 02:26 Source: patient Mode of arrival: Ambulatory History of Present Illness HPI Narrative: 65-year-old female with well known to this facility and myself with history of asthma is and cardiomyopathy presenting today with lower extremity edema. This is actually her 4th visit to the emergency department this week. She fell off all [place] wall on the . She had 0 full workup multiple images were done. She returned a few times for increasing pain any and then her last visit she was having a hard time breathing. She was put on Lasix 20 mg BNP at that time was 700 and chest x-ray did show some cardiomegaly. She was trying to establish care with a new provider today Dr.PArdeep Mtz. Provider was worried due to shortness of breath and increased swelling in her legs. She was sent to emergency department. She says she waited at [place] for 5 hours and was not seen. She then came here to be evaluated. She states that her legs are swollen she isn't having significant shortness of breath. She is noted to have some mild periorbital contusions bilaterally. She is having some left posterior rib pain she was evaluated for this few days ago. She denies any other chest pain palpitations or shortness of breath Related Data Home Medications Medication Instructions Recorded Confirmed sennosides 8.6 mg tablet (senna) 17.2 mg PO BEDTIME PRN 09/20/18 01/27/21 potassium chloride 20 mEq 10 meq PO DAILY PRN 10/29/18 01/27/21 tablet,extended release levalbuterol tartrate 45 2 inhalation INHALATION BID gram 08/26/19 01/27/21 mcg/actuation aerosol inhaler (Xopenex HFA) diphenhydramine HCl 25 mg capsule 75 mg PO DAILY PRN 10/26/19 01/27/21 (Benadryl) omeprazole 40 mg capsule,delayed 40 mg PO BID 02/10/20 01/27/21 release lidocaine 5 % topical ointment 1 applic TOPICAL TID PRN 02/24/20 01/27/21 ketotifen fumarate 0.025 % (0.035 1 drp OPHTHALMIC (EYE) BID 03/02/20 01/27/21 %) eye drops (Zaditor) fluticasone propionate 50 1 spray INTRANASAL BID 04/02/20 01/27/21 mcg/actuation nasal spray,suspension ondansetron 8 mg disintegrating 8 mg PO Q8H PRN 06/29/20 01/27/21 tablet metoprolol succinate 25 mg 25 mg PO BID 01/27/21 01/27/21 tablet,extended release 24 hr valsartan 40 mg tablet 20 mg PO BID 01/27/21 01/27/21 Previous Rx's Medication Instructions Recorded levalbuterol HCl 0.63 mg/3 mL 0.63 mg (3 mL) INHALATION Q8H PRN 09/11/19 solution for nebulization #90 ml methocarbamol 750 mg tablet 750 mg PO TID PRN #90 tab 09/29/19 epinephrine 0.3 mg/0.3 mL 0.3 mg (0.3 mL) IM ONCE PRN #1 ea 01/01/20 injection, auto-injector budesonide-formoterol HFA 80 2 puff INHALATION BID #10.2 gram 01/28/20 mcg-4.5 mcg/actuation aerosol inhaler (Symbicort) montelukast 10 mg tablet 10 mg PO BEDTIME PRN #90 tab 02/23/20 sumatriptan succinate 100 mg tablet 100 mg PO ONCE PRN #14 tab 02/23/20 furosemide 40 mg tablet 40 mg PO DAILY PRN #30 tab 03/04/20 diazepam 5 mg tablet 5 mg PO TID PRN #90 tab 09/10/20 Trintellix 20 mg tablet 20 mg PO DAILY #30 tab NS 09/28/20 (vortioxetine) hydromorphone 2 mg tablet 2 mg PO Q4HR PRN #10 tab 11/22/20 mirtazapine 7.5 mg tablet 7.5 mg PO BEDTIME PRN #30 tab 11/24/20 famotidine 20 mg tablet (Pepcid) 20 mg PO BID #10 tab 01/12/21 methylprednisolone 4 mg tablet 4 mg PO DAILY #5 tab 01/12/21 furosemide 20 mg tablet (Lasix) 20 mg PO DAILY #3 tab 01/13/21 quetiapine 25 mg tablet See Rx Instructions PO BID #30 tab 01/18/21 Allergies Allergy/AdvReac Type Severity Reaction Status Date / Time Iodinated Contrast Media Allergy Severe Difficulty Verified 02/26/21 13:24 Breathing iodine Allergy Severe Difficulty Verified 02/26/21 13:24 Breathing latex Allergy Severe Rash Verified 02/26/21 13:24 morphine [MORPHINE] Allergy Severe Anaphylaxis Verified 02/26/21 13:24 Penicillins [PENICILLINS] Allergy Severe Anaphylaxis Verified 02/26/21 13:24 Sulfa (Sulfonamide Allergy Severe RASH Verified 02/26/21 13:24 Antibiotics) [SULFA (SULFONAMIDE ANTIBIOTICS)] azithromycin Allergy Intermediate Rash Verified 02/26/21 13:24 [From ZITHROMAX Z-MARILYN] cefuroxime [From Ceftin] Allergy Intermediate Rash Verified 02/26/21 13:24 sulfamethoxazole Allergy Intermediate RASH Verified 02/26/21 13:24 [From SEPTRA] trimethoprim [From SEPTRA] Allergy Intermediate RASH Verified 02/26/21 13:24 ciprofloxacin [From Cipro] Allergy Pt does Verified 02/26/21 13:24 not remember reaction Corticosteroids Allergy Swelling Verified 02/26/21 13:24 (Glucocorticoids) of Lip/Tongue/Throat cephalexin [From Keflex] AdvReac Severe Fever, Verified 02/26/21 13:24 Asthma, Tachycardia prednisone AdvReac Severe nausea and Verified 02/26/21 13:24 feels very weak, and axious verapamil AdvReac Intermediate Asthma Verified 02/26/21 13:24 symptoms zonisamide AdvReac Intermediate Asthma Verified 02/26/21 13:24 symptoms Review of Systems Review of Systems Narrative: GENERAL: Denies chills, fatigue, malaise, fever, sweats, travel HEENT: Denies sinus pain, ear pain, sore throat, difficulty swallowing, neck pain RESPIRATORY: Denies dyspnea, cough, wheezing, hemoptysis, sputum. CARDIOVASCULAR: Denies chest pain, palpitations, orthopnea, edema GASTROINTESTINAL: Denies nausea, vomiting, abdominal pain, diarrhea, constipation, melena. : Denies dysuria, frequency, incontinence, hematuria, urinary retention, flank pain. MUSCULOSKELETAL: Lower extremity edema SKIN: No rash, no erythema, no pruritus NEUROLOGIC: Denies weakness, dizziness, headache, numbness, change in speech, confusion PSYCHIATRIC: No concerning psychosocial issues. 12 point review of systems is negative except for those stated above and HPI Patient History Medical History Anemia Anxiety Asthma Chronic back pain Chronic cough Depression Femur fracture, left Fibromyalgia Fractures GERD (gastroesophageal reflux disease) Hiatal hernia Recurrent sinusitis Venous insufficiency (chronic) (peripheral) Surgical History Anesthesia History of eye surgery (~1973) History of foot surgery History of hysterectomy (~1979) History of shoulder surgery (~2011) History of tonsillectomy (~1975) Hx of bilateral cataract extraction Family History Mother Heart disease Social History marital status: number of children: 1 household members: none lives independently: Yes caregiver/support person: Yes (3 afternoons per week) pets and animals: Yes occupational status: disabled Smoking Status: Never smoker alcohol intake: never substance use type: does not use Smoking Status: Never smoker alcohol intake frequency: holidays/special occasions only Substance Use Type: does not use Exam Initial Vital Signs Initial Vital Signs: Vital Signs Temperature 97.8 F 03/01/21 02:25 Pulse Rate 70 03/01/21 02:25 Respiratory Rate 22 03/01/21 02:25 Blood Pressure 144/81 H 03/01/21 02:25 Pulse Oximetry 97 03/01/21 02:25 GENERAL: 65-year-old female appears quite comfortableand in no acute distress. HEENT: Head atraumatic,EOMI, pupils reactive, face symmetric, moist mucous membranes CARDIOVASCULAR: Regular rate and rhythm without murmurs, rubs or gallops. RESPIRATORY: Breath sounds equal bilaterally, no wheezes rales or rhonchi. No respiratory distress speaks in full sentences ABDOMEN: Soft, nontender. Normoactive bowel sounds all 4 quadrants. No guarding or rebound. EXTREMITIES: Normal range of motion, no clubbing. Neurovascularly intact +2 lower extremity edema NEUROLOGICAL: Alert and oriented x4.Normal gait and speech. SKIN: Warm, dry, no laceration, no petechiae, no rashes or lesions. Course Orders Ordered: ED Orders 03/01/21 02:34 XR chest 1V Stat EKG-12 Lead Stat 03/01/21 03:00 BNP [NT-proBNP (BNP-Adult 18+)] Stat Complete Blood Count AUTO DIFF Stat Comprehensive Metabolic Panel Stat Lipase Stat Magnesium Stat Troponin & CK Cardiac Panel Stat Discontinued Medications Acetaminophen (Acetaminophen 325 Mg Tablet) 975 mg PO NOW ONE Stop: 03/01/21 04:17 Last Admin: 03/01/21 04:37 Dose: Not Given Documented by: HÉCTOR Furosemide (Furosemide 40 Mg/4 Ml Vial) 40 mg IV NOW ONE Stop: 03/01/21 04:07 Last Admin: 03/01/21 04:30 Dose: 40 mg Documented by: HÉCTOR Vital Signs Vital signs: Vital Signs - 8 hr 03/01/21 02:25 03/01/21 03:53 03/01/21 04:00 Temperature 97.8 F Pulse Rate 70 63 68 Respiratory Rate 22 18 23 Blood Pressure 144/81 H Pulse Oximetry 97 94 95 03/01/21 04:30 03/01/21 04:36 Temperature Pulse Rate 68 65 Respiratory Rate 19 24 Blood Pressure 131/61 Pulse Oximetry 93 94 MDM - Extremity (Nontraumatic) Lab Data Result diagrams: 03/01/21 03:00 03/01/21 03:00 Labs: Lab Results 03/01/21 03/01/21 Range/Units 03:00 03:00 WBC 8.3 (4.5-11.0) X10^3/uL RBC 3.37 L (4.0-5.2) X10^6/uL Hgb 9.8 L (12.0-16.0) g/dL Hct 28.7 L (36-46) % MCV 85.1 (80-100) fL MCH 29.1 (26-34) PG MCHC 34.1 (30-36) % RDW 14.9 H (11.6-14.8) % Plt Count 265 (150-400) X10^3/uL Neut % (Auto) 58.9 (50-75) % Lymph % (Auto) 27.1 (25-40) % [place] % (Auto) 7.8 (3-14) % Eos % (Auto) 5.2 H (2-4) % Baso % (Auto) 1.0 (0-2) % Neut # (Auto) 4900 (5184-7428) /uL Lymph # (Auto) 2300 (0100-2196) /uL [place] # (Auto) 700 (0-900) /uL Eos # (Auto) 400 (0-450) /uL Baso # (Auto) 100 (0-100) /uL Sodium 139 (137-145) mmol/L Potassium 3.5 (3.4-5.1) mmol/L Chloride 107 (98-107) mmol/L Carbon Dioxide 29 (22-32) mmol/L BUN 27 H (7-17) mg/dL Creatinine 0.99 (0.52-1.04) mg/dL Estimated GFR 56.1 L (>60) mL/min BUN/Creatinine Ratio 27.3 H (6-22) Glucose 93 (80-110) mg/dL Calcium 9.6 (8.4-10.2) mg/dL Magnesium 2.0 (1.6-2.3) mg/dL Total Bilirubin 0.2 (0.2-1.3) mg/dL AST 36 (14-36) IU/L ALT 24 (<35) IU/L Alkaline Phosphatase 77 (38-126) U/L Total Creatine Kinase 249 H (30-135) U/L CK-MB (CK-2) 4.06 H (<2.37) ng/mL CK-MB (CK-2) Rel Index 1.6 (1.5-5.0) % Troponin I < 0.012 (0.01-0.034) ng/mL NT-Pro-B Natriuret Pep 527 H (<125) pg/mL Total Protein 6.3 (6.3-8.2) g/dL Albumin 3.7 (3.5-5.0) g/dL Globulin 2.6 (1.7-4.1) g/dL Albumin/Globulin Ratio 1.4 (1.0-2.8) Lipase 79 (23-300) U/L Imaging Data Chest x-ray: Radiologist's Impression: The preliminary report cardiomegaly with hiatal hernia ECG Data Interpretation: Normal sinus rhythm rate 61 and VA interval is 178 QRS [address] changes no T-wave inversion MDM Narrative Medical decision making narrative: Patient overall appears comfortable better than I have seen her previously. She does have lower extremity edema with known congestive heart failure currently on Lasix. BNP today is 527 previously 771 however BNP is typically under 100. blood Work is actually overall reassuring and appears improved from previous a few days prior. At this time no indication for admission. Recommend continued outpatient management and close follow-up. Discharge Plan Departure Patient Disposition: Home Clinical Impression: Edema Instructions: Heart Failure Activity Restrictions/Additional Instructions: *You have been diagnosed with lower extremity edema *What to do: At this time you do still have some fluid buildup. However a you do not need to stay in the hospital. *Continue to take medications as directed Lasix 40 mg once a day for 4 days Continue to take torsemide as previously prescribed *Follow up with your primary care provider in 2-3 days, please call your fast brim pouncer tomorrow for further instruction or call [phone] *Return to ER if you should have increasing shortness of breath, increasing swelling of legs, chest pain or any new, worsening or concerning symptoms Prescriptions: No Action Trintellix 20 mg tablet 20 mg PO DAILY Qty: 30 5RF mirtazapine 7.5 mg tablet 7.5 mg PO BEDTIME PRN (Reason: sleep) Qty: 30 2RF Hold Instructions: not currently taking valsartan 40 mg tablet 20 mg PO BID 0RF metoprolol succinate 25 mg tablet extended release 24 hr 25 mg PO BID 0RF potassium chloride 20 mEq tablet extended release 10 meq PO DAILY PRN (Reason: Take w/lasix) 0RF Rx Instructions: Take w/lasix prn fluticasone propionate 50 mcg/actuation spray,suspension 1 spray intranasal BID 0RF Rx Instructions: administer into each nostril diazepam 5 mg tablet 5 mg PO TID PRN (Reason: Anxiety) Qty: 90 0RF levalbuterol HCl 0.63 mg/3 mL solution for nebulization 0.63 mg INHALATION Q8H PRN (Reason: shortness of breath or wheezing) Qty: 90 11RF methocarbamol 750 mg tablet 750 mg PO TID PRN (Reason: Spasms) Qty: 90 3RF Rx Instructions: PRN epinephrine 0.3 mg/0.3 mL auto-injector 0.3 mg IM ONCE PRN (Reason: Allergic Reaction) Qty: 1 11RF budesonide-formoterol [Symbicort] 80-4.5 mcg/actuation HFA aerosol inhaler 2 puff INHALATION BID Qty: 10.2 0RF quetiapine 25 mg tablet See Rx Instructions PO BID Qty: 30 1RF Rx Instructions: 1/2 tab p.o. b.i.d. as needed anxiety sumatriptan succinate 100 mg tablet 100 mg PO ONCE PRN (Reason: migraine headache) Qty: 14 3RF Rx Instructions: take at onset, may repeat in 2 hours if no relief, max daily dose 2 tabs montelukast 10 mg tablet 10 mg PO BEDTIME PRN (Reason: Allergy Symptoms) Qty: 90 3RF levalbuterol tartrate [Xopenex HFA] 45 mcg/actuation HFA aerosol inhaler 2 inhalation INHALATION BID 0RF Rx Instructions: may take every 6hrs prn at home lidocaine 5 % Ointment 1 applic TOPICAL TID PRN (Reason: pain) 0RF ketotifen fumarate [Zaditor] 0.025 % (0.035 %) Drops 1 drp OPHTHALMIC (EYE) BID 0RF furosemide 40 mg tablet 40 mg PO DAILY PRN (Reason: edema) Qty: 30 0RF Rx Instructions: Take 1 tablet daily as needed for edema methylprednisolone 4 mg tablet 4 mg PO DAILY Qty: 5 0RF famotidine [Pepcid] 20 mg tablet 20 mg PO BID Qty: 10 0RF sennosides [senna] 8.6 mg Tablet 17.2 mg PO BEDTIME PRN (Reason: Constipation) 0RF diphenhydramine HCl [Benadryl] 25 mg Capsule 75 mg PO DAILY PRN (Reason: Allergy Symptoms) 0RF omeprazole 40 mg Capsule,Delayed Release(Dr/Ec) 40 mg PO BID 0RF ondansetron 8 mg Tablet,Disintegrating 8 mg PO Q8H PRN (Reason: Nausea) 0RF hydromorphone 2 mg Tablet 2 mg PO Q4HR PRN (Reason: Pain, Severe (7-10)) Qty: 10 0RF furosemide [Lasix] 20 mg tablet 20 mg PO DAILY Qty: 3 0RF Referrals: Becky Rod PA-C [Primary Care Provider] -
[2021-03-01 03:16] LABS: Add Manual Diff / Slide Review NO; Basophils Absolute Auto 100 /uL (0-100); Eosinophils Absolute Auto 400 /uL (0-450); Eosinophils Percent Auto 5.2 % (2-4); Hematocrit 28.7 % (36-46); Hemoglobin 9.8 g/dL (12.0-16.0); Lymphocytes Absolute Auto 2300 /uL (1100-4500); Lymphocytes Percent Auto 27.1 % (25-40); Mean Corpuscular HGB Conc 34.1 % (30-36); Mean Corpuscular Hemoglobin 29.1 PG (26-34); Mean Corpuscular Volume 85.1 fL (80-100); Monocytes Absolute Auto 700 /uL (0-900); Monocytes Percent Auto 7.8 % (3-14); Neutrophils Absolute Auto 4900 /uL (1500-7000); Neutrophils Percent Auto 58.9 % (50-75); Platelet Count 265 X10^3/uL (150-400); Red Blood Cell Count 3.37 X10^6/uL (4.0-5.2); Red Cell Distribution Width 14.9 % (11.6-14.8); White Blood Cell Count 8.3 X10^3/uL (4.5-11.0)
[2021-03-01 03:27] LABS: Alanine Aminotransferase 24 IU/L (<35); Albumin 3.7 g/dL (3.5-5.0); Albumin Globulin Ratio 1.4 (1.0-2.8); Alkaline Phosphatase 77 U/L (38-126); Aspartate Aminotransferase 36 IU/L (14-36); BUN Creatinine Ratio 27.3 (6-22); Bilirubin Total 0.2 mg/dL (0.2-1.3); Blood Urea Nitrogen 27 mg/dL (7-17); Calcium 9.6 mg/dL (8.4-10.2); Carbon Dioxide 29 mmol/L (22-32); Chloride 107 mmol/L (98-107); Creatine Kinase 249 U/L (30-135); Estimated Glomerular Filt Rate 56.1 mL/min (>60); Globulin 2.6 g/dL (1.7-4.1); Glucose 93 mg/dL (80-110); HEMOLYSIS < 15 (0-50); Lipase 79 U/L (23-300); Potassium 3.5 mmol/L (3.4-5.1); Sodium 139 mmol/L (137-145); Total Protein 6.3 g/dL (6.3-8.2)
[2021-03-01 03:39] LABS: NT-proBNP (BNP-Adult 18+) 527 pg/mL (<125); Troponin I < 0.012 ng/mL (0.01-0.034)
[2021-03-01 03:42] LABS: CKMB % Relative Index 1.6 % (1.5-5.0); Creatine Kinase MB 4.06 ng/mL (<2.37)
[2021-03-01 03:53] VITALS: PULSE 63; RESP 18; O2SAT 94
[2021-03-01 04:00] VITALS: PULSE 68; RESP 23; O2SAT 95
[2021-03-01 04:30] VITALS: PULSE 68; RESP 19; O2SAT 93
[2021-03-01] MEDS: FUROSEMIDE 40 MG/4 ML VIAL IV (04:30)
[2021-03-01 04:36] VITALS: BP 131/61; PULSE 65; RESP 24; O2SAT 94
--- NOTE | 2021-03-01 04:45 | PC.NURSE ---
I assisted the student nurse with all aspects of care. I agree with her assessments.
== END 2021-03-01 04:49 | disposition home or self-care (01) ==
PROVIDERS: Emergency Provider Emergency Medicine; PCP Physician Assistant
DX: R60.0 Localized edema (principal); Z88.8 Allergy status to other drugs, medicaments and biological substances
CPT/HCPCS: 36415; 71045; 80053; 82550; 82553; 83690; 83735; 83880; 84484; 85025; 93005; 93010; 96374; 99284; J1940

== ENCOUNTER 2021-03-02 12:44 | Emergency (ER) | payer MEDICARE, MEDICAID, SELFPAY ==
[2020-08-27 13:41] VITALS: BMI 35.4
[2021-03-02 13:10] VITALS: BP 118/58; PULSE 70; RESP 18; TEMP 36.6; O2SAT 95; BMI 34.5
--- NOTE | 2021-03-02 13:39 | DI.CT.S_ITS ---
PROCEDURE: CT ANGIO CHEST PE PROTOCOL INDICATIONS: CP, SOB, hypoxia TECHNIQUE: After the administration of intravenous contrast, 2 mm thick sections acquired from the pulmonary apices to the posterior costophrenic angles. 3-dimensional maximum intensity projection (MIP) coronal and sagittal reformats were then acquired through the thorax. For radiation dose reduction, the following was used: automated exposure control, adjustment of mA and/or kV according to patient size. COMPARISON: [facility], CT, CT ANGIO CHEST PE PROTOCOL, 12/21/2020, 19:09. FINDINGS: Image quality: Excellent. Pulmonary arteries: Pulmonary arteries are normal in size, and demonstrate no intraluminal filling defects to suggest central pulmonary embolism. Lungs and pleura: No acute airspace disease. Redemonstration of dependent atelectasis involving the bilateral upper lower lobes and adjacent to the medial margin of the right lower lobe secondary to large hiatal hernia. No pleural effusions or pneumothorax. Central and peripheral airways are patent. Mediastinum: Heart size is normal, without pericardial effusion. Coronary atherosclerosis as before. No mediastinal or hilar adenopathy. Thoracic aorta is normal in caliber and enhancement. Esophagus is normal in caliber, stable appearance of large hiatal hernia. Bones and chest wall: No suspicious bony lesions. Ribs and thoracic spine appear intact throughout. Thyroid gland is unremarkable. No axillary or supraclavicular adenopathy. Abdomen: Visualized upper abdominal solid organs appear normal in the early arterial phase of enhancement. IMPRESSION: 1. No acute pulmonary emboli or evidence for acute right-sided heart strain. 2. No acute cardiopulmonary abnormalities or focal airspace disease. Stable appearance of dependent atelectasis. 3. Large hiatal hernia redemonstrated. 4. Atherosclerotic vascular disease. Dictated by: Amol Higgins M.D. on 03/02/2021 at 14:58 Approved by: Amol Higgins M.D. on 03/02/2021 at 15:04
--- NOTE | 2021-03-02 13:41 | ED_ITS ---
HPI - Allergic Reaction General Chief complaint: Allergic Reaction Stated complaint: possible embolysium Time Seen by Provider: 03/02/21 13:34 Mode of arrival: Ambulatory History of Present Illness HPI narrative: ?Patient is a 65-year-old female with a known history of a hiatal hernia presents with chief complaint of shortness of breath, she's been feeling poorly for the past few days and has various complaints including shortness of breath, fatigue and mild dizziness. She went to an outside facility yesterday and labs are drawn including a critically elevated D-dimer. There was an extended wait and she left prior to any evaluation. She presents today hoping for some help. She states that her symptoms a rather persistent and not severe just that her breathing is not improving with her normal breathing treatments. She denies any fever or chills. She denies any history of blood clot, recent travel or trauma Related Data Home Medications Medication Instructions Recorded Confirmed sennosides 8.6 mg tablet (senna) 17.2 mg PO BEDTIME PRN 09/20/18 01/27/21 potassium chloride 20 mEq 10 meq PO DAILY PRN 10/29/18 01/27/21 tablet,extended release levalbuterol tartrate 45 2 inhalation INHALATION BID gram 08/26/19 01/27/21 mcg/actuation aerosol inhaler (Xopenex HFA) diphenhydramine HCl 25 mg capsule 75 mg PO DAILY PRN 10/26/19 01/27/21 (Benadryl) omeprazole 40 mg capsule,delayed 40 mg PO BID 02/10/20 01/27/21 release lidocaine 5 % topical ointment 1 applic TOPICAL TID PRN 02/24/20 01/27/21 ketotifen fumarate 0.025 % (0.035 1 drp OPHTHALMIC (EYE) BID 03/02/20 01/27/21 %) eye drops (Zaditor) fluticasone propionate 50 1 spray INTRANASAL BID 04/02/20 01/27/21 mcg/actuation nasal spray,suspension ondansetron 8 mg disintegrating 8 mg PO Q8H PRN 06/29/20 01/27/21 tablet metoprolol succinate 25 mg 25 mg PO BID 01/27/21 01/27/21 tablet,extended release 24 hr valsartan 40 mg tablet 20 mg PO BID 01/27/21 01/27/21 Previous Rx's Medication Instructions Recorded levalbuterol HCl 0.63 mg/3 mL 0.63 mg (3 mL) INHALATION Q8H PRN 09/11/19 solution for nebulization #90 ml methocarbamol 750 mg tablet 750 mg PO TID PRN #90 tab 09/29/19 epinephrine 0.3 mg/0.3 mL 0.3 mg (0.3 mL) IM ONCE PRN #1 ea 01/01/20 injection, auto-injector budesonide-formoterol HFA 80 2 puff INHALATION BID #10.2 gram 01/28/20 mcg-4.5 mcg/actuation aerosol inhaler (Symbicort) montelukast 10 mg tablet 10 mg PO BEDTIME PRN #90 tab 02/23/20 sumatriptan succinate 100 mg tablet 100 mg PO ONCE PRN #14 tab 02/23/20 furosemide 40 mg tablet 40 mg PO DAILY PRN #30 tab 03/04/20 diazepam 5 mg tablet 5 mg PO TID PRN #90 tab 09/10/20 Trintellix 20 mg tablet 20 mg PO DAILY #30 tab NS 09/28/20 (vortioxetine) hydromorphone 2 mg tablet 2 mg PO Q4HR PRN #10 tab 11/22/20 mirtazapine 7.5 mg tablet 7.5 mg PO BEDTIME PRN #30 tab 11/24/20 famotidine 20 mg tablet (Pepcid) 20 mg PO BID #10 tab 01/12/21 methylprednisolone 4 mg tablet 4 mg PO DAILY #5 tab 01/12/21 furosemide 20 mg tablet (Lasix) 20 mg PO DAILY #3 tab 01/13/21 quetiapine 25 mg tablet See Rx Instructions PO BID #30 tab 01/18/21 Allergies Allergy/AdvReac Type Severity Reaction Status Date / Time Iodinated Contrast Media Allergy Severe Difficulty Verified 02/26/21 13:24 Breathing iodine Allergy Severe Difficulty Verified 02/26/21 13:24 Breathing latex Allergy Severe Rash Verified 02/26/21 13:24 morphine [MORPHINE] Allergy Severe Anaphylaxis Verified 02/26/21 13:24 Penicillins [PENICILLINS] Allergy Severe Anaphylaxis Verified 02/26/21 13:24 Sulfa (Sulfonamide Allergy Severe RASH Verified 02/26/21 13:24 Antibiotics) [SULFA (SULFONAMIDE ANTIBIOTICS)] azithromycin Allergy Intermediate Rash Verified 02/26/21 13:24 [From ZITHROMAX Z-MARILYN] cefuroxime [From Ceftin] Allergy Intermediate Rash Verified 02/26/21 13:24 sulfamethoxazole Allergy Intermediate RASH Verified 02/26/21 13:24 [From SEPTRA] trimethoprim [From SEPTRA] Allergy Intermediate RASH Verified 02/26/21 13:24 ciprofloxacin [From Cipro] Allergy Pt does Verified 02/26/21 13:24 not remember reaction Corticosteroids Allergy Swelling Verified 02/26/21 13:24 (Glucocorticoids) of Lip/Tongue/Throat cephalexin [From Keflex] AdvReac Severe Fever, Verified 02/26/21 13:24 Asthma, Tachycardia prednisone AdvReac Severe nausea and Verified 02/26/21 13:24 feels very weak, and axious verapamil AdvReac Intermediate Asthma Verified 02/26/21 13:24 symptoms zonisamide AdvReac Intermediate Asthma Verified 02/26/21 13:24 symptoms Review of Systems Review of Systems Narrative: GENERAL: See HPI HEENT: Denies sinus pain, ear pain, sore throat, difficulty swallowing, dizziness. RESPIRATORY: See HPI CARDIOVASCULAR: See HPI GASTROINTESTINAL: Denies nausea, vomiting, abdominal pain, diarrhea, c onstipation, melena. : Denies dysuria, frequency, incontinence, hematuria, urinary retention. MUSCULOSKELETAL: denies weakness, joint pain, or bony pain SKIN: Denies rash, skin lesions, or other NEUROLOGIC: Denies weakness, headache, numbness, change in speech, confusion, seizures, incoordination. PSYCHIATRIC: No concerning psychosocial issues. 12 point review of systems is negative except for those stated above Patient History Medical History Anemia Anxiety Asthma Chronic back pain Chronic cough Depression Femur fracture, left Fibromyalgia Fractures GERD (gastroesophageal reflux disease) Hiatal hernia Recurrent sinusitis Venous insufficiency (chronic) (peripheral) Surgical History Anesthesia History of eye surgery (~1973) History of foot surgery History of hysterectomy (~1979) History of shoulder surgery (~2011) History of tonsillectomy (~1975) Hx of bilateral cataract extraction Family History Mother Heart disease Social History marital status: number of children: 1 household members: none lives independently: Yes caregiver/support person: Yes (3 afternoons per week) pets and animals: Yes occupational status: disabled Smoking Status: Never smoker alcohol intake: never substance use type: does not use Smoking Status: Never smoker alcohol intake frequency: holidays/special occasions only Substance Use Type: does not use Exam Narrative Exam Narrative: GENERAL: [65 year old patient appears stated age. Well-developed patient, in mild distress. HEAD: Atraumatic. Normocephalic. EYES: Pupils equal round and reactive. Extraocular motions intact. No scleral icterus. No injection or drainage. ENT: Nose without bleeding, purulent drainage. Throat without erythema, tonsillar hypertrophy or exudate. Airway patent. NECK: Trachea midline. Non tender CARDIOVASCULAR: Regular rate and rhythm without murmurs, gallops, or rubs. RESPIRATORY: Clear to auscultation. Breath sounds equal bilaterally. No wheezes, rales, or rhonchi. GASTROINTESTINAL: Abdomen soft, non-tender, nondistended. EXTREMITIES: No edema or joint tenderness. BACK: Nontender without deformity or crepitance. No flank tenderness. NEURO: AOx3. SKIN: No rash or erythema of visible areas Initial Vital Signs Initial Vital Signs: Vital Signs Temperature 97.9 F 03/02/21 13:10 Pulse Rate 70 03/02/21 13:10 Respiratory Rate 18 03/02/21 13:10 Blood Pressure 118/58 L 03/02/21 13:10 Pulse Oximetry 95 03/02/21 13:10 Course Orders Ordered: ED Orders 03/02/21 13:30 Complete Blood Count AUTO DIFF Stat Comprehensive Metabolic Panel Stat Magnesium Stat NT-proBNP (BNP-Adult 18+) Stat Troponin & CK Cardiac Panel Stat 03/02/21 13:39 CT angio chest PE protocol Stat Discontinued Medications Diphenhydramine HCl (Diphenhydramine 50 Mg/Ml Vial) 25 mg IV NOW ONE Stop: 03/02/21 13:39 Last Admin: 03/02/21 13:50 Dose: 25 mg Documented by: [email or web address] Sodium Chloride (Normal Saline 0.9%) 1,000 mls @ 125 mls/hr IV CONT ZHANG Last Infusion: 03/02/21 15:20 Dose: 0 mls/hr Documented by: Admin: 03/02/21 13:50 Dose: 125 mls/hr Documented by: JESSICA Methylprednisolone (Methylprednisolone 125 Mg/2 Ml Vial) 125 mg IV NOW ONE Stop: 03/02/21 13:39 Last Admin: 03/02/21 13:49 Dose: 125 mg Documented by: JESSICA Vital Signs Vital signs: Vital Signs - 8 hr 03/02/21 13:10 03/02/21 13:50 03/02/21 13:51 Temperature 97.9 F Pulse Rate 70 64 63 Respiratory Rate 18 21 20 Blood Pressure 118/58 L 121/67 Pulse Oximetry 95 96 03/02/21 14:00 03/02/21 14:05 03/02/21 15:23 Temperature Pulse Rate 59 L 62 61 Respiratory Rate 24 24 18 Blood Pressure 125/68 127/69 Pulse Oximetry 96 94 98 MDM - Allergic Reaction Lab Data Result diagrams: 03/02/21 13:30 03/02/21 13:30 Labs: Lab Results 03/02/21 03/02/21 Range/Units 13:30 13:30 WBC 8.3 (4.5-11.0) X10^3/uL RBC 3.90 L (4.0-5.2) X10^6/uL Hgb 10.9 L (12.0-16.0) g/dL Hct 33.1 L (36-46) % MCV 84.7 (80-100) fL MCH 27.8 (26-34) PG MCHC 32.8 (30-36) % RDW 14.8 (11.6-14.8) % Plt Count 325 (150-400) X10^3/uL Neut % (Auto) 79.9 H D (50-75) % Lymph % (Auto) 14.7 L (25-40) % I[place]quois % (Auto) 4.0 (3-14) % Eos % (Auto) 0.7 L (2-4) % Baso % (Auto) 0.7 (0-2) % Neut # (Auto) 6700 (8879-9049) /uL Lymph # (Auto) 1200 (0453-3575) /uL [place]ois # (Auto) 300 (0-900) /uL Eos # (Auto) 100 (0-450) /uL Baso # (Auto) 100 (0-100) /uL Sodium 139 (137-145) mmol/L Potassium 3.1 L (3.4-5.1) mmol/L Chloride 102 (98-107) mmol/L Carbon Dioxide 28 (22-32) mmol/L BUN 31 H (7-17) mg/dL Creatinine 1.10 H (0.52-1.04) mg/dL Estimated GFR 49.7 L (>60) mL/min BUN/Creatinine Ratio 28.2 H (6-22) Glucose 115 H (80-110) mg/dL Calcium 9.5 (8.4-10.2) mg/dL Magnesium 1.9 (1.6-2.3) mg/dL Total Bilirubin 0.5 (0.2-1.3) mg/dL AST 48 H (14-36) IU/L ALT 26 (<35) IU/L Alkaline Phosphatase 104 (38-126) U/L Total Creatine Kinase 196 H (30-135) U/L CK-MB (CK-2) 2.93 H (<2.37) ng/mL CK-MB (CK-2) Rel Index 1.5 (1.5-5.0) % Troponin I < 0.012 (0.01-0.034) ng/mL NT-Pro-B Natriuret Pep 119 (<125) pg/mL Total Protein 7.6 (6.3-8.2) g/dL Albumin 4.5 (3.5-5.0) g/dL Globulin 3.1 (1.7-4.1) g/dL Albumin/Globulin Ratio 1.5 (1.0-2.8) Imaging Data CT scan - chest: Radiologist's Impression: [address] [address] [address] Scan Report Signed Patient: Sheryl Lennon MR#: [id number] : 1955 Acct:[id number] Age/Sex: 65 / F Date of Service: 03/02/21 Loc: ED Accession Number: [id number] ?? Procedure: CT angio chest PE protocol Ordering Provider: Gerson De Jesus D.O. PROCEDURE:? CT ANGIO CHEST PE PROTOCOL ? INDICATIONS:? CP, SOB, hypoxia ? TECHNIQUE:? After the administration of intravenous contrast, 2 mm thick sections acquired from the pulmonary apices to the posterior costophrenic angles.? 3-dimensional maximum intensity projection (MIP) coronal and sagittal reformats were then acquired through the thorax.? For radiation dose reduction, the following was used:? automated exposure control, adjustment of mA and/or kV according to patient size.? ? COMPARISON:? [facility], CT, CT ANGIO CHEST PE PROTOCOL, 12/21/2020, 19:09. ? FINDINGS:? Image quality:? Excellent.? ? Pulmonary arteries:? Pulmonary arteries are normal in size, and demonstrate no intraluminal filling defects to suggest central pulmonary embolism.? ? Lungs and pleura:? No acute airspace disease.? Redemonstration of dependent atelectasis involving the bilateral upper lower lobes and adjacent to the medial margin of the right lower lobe secondary to large hiatal hernia.? No pleural effusions or pneumothorax.? Central and peripheral airways are patent.? ? Mediastinum:? Heart size is normal, without pericardial effusion.? Coronary atherosclerosis as before.? No mediastinal or hilar adenopathy.? Thoracic aorta is normal in caliber and enhancement.? Esophagus is normal in caliber, stable appearance of large hiatal hernia.? ? Bones and chest wall:? No suspicious bony lesions.? Ribs and thoracic spine appear intact throughout.? Thyroid gland is unremarkable.? No axillary or supraclavicular adenopathy.? ? Abdomen:? Visualized upper abdominal solid organs appear normal in the early arterial phase of enhancement.? ? IMPRESSION:? 1. No acute pulmonary emboli or evidence for acute right-sided heart strain. ? 2. No acute cardiopulmonary abnormalities or focal airspace disease.? Stable appearance of dependent atelectasis. ? 3. Large hiatal hernia redemonstrated. ? 4. Atherosclerotic vascular disease.? ? ? Dictated by: Amol Higgins M.D. on 03/02/2021 at 14:58 ? ? Approved by: Amol Higgins M.D. on 03/02/2021 at 15:04 ? MDM Narrative Medical decision making narrative: Patient has reassuring history and physical exam. Vitals demonstrate no tachypnea or hypoxemia. She is in no evidence of respiratory distress and resting comfortably in at her relative baseline. Given her recent critically el evated D-dimer she was sent for evaluation of pulmonary embolism. She was pretreated for her iodine allergy and sent for CT scan which was unremarkable and demonstrates no pulmonary embolism, pericardial effusion or other. She is otherwise at her baseline comfortable managing her symptoms. Return precautions given and questions have been answered to her apparent satisfaction Discharge Plan Departure Patient Disposition: Home Clinical Impression: Chronic dyspnea Instructions: DI for Shortness of Breath Activity Restrictions/Additional Instructions: *You have been diagnosed with [acute on chronic shortness of breath. Thankfully your CT scan is very reassuring and there is no evidence of a blood clot, pneumonia, fluid on your lungs or other significant findings. *What to do: *Please continue to take your regular medications as directed. [ ] New medication prescriptions sent to your pharmacy: [ ] [ ] New medication written as a paper prescription [x ] No new medications given *Please follow up with your primary care provider in 2-3 days, call for an appointment. Let them know you were seen in the Emergency Department and that we ask that you be seen in follow up. We will electronically transmit a record of today's note if your PCP is in our system *If you do not have a primary care provider please contact the [facility] Resource line at [phone]. They will ask some questions about your medical history and help get you set up with a doctor in the community. *Return to Emergency Department if you should have any new, worsening or concerning symptoms, such as [fever greater than 101 F, shaking chills, worsening pain, persistent vomiting or other bothersome symptoms] Prescriptions: No Action Trintellix 20 mg tablet 20 mg PO DAILY Qty: 30 5RF mirtazapine 7.5 mg tablet 7.5 mg PO BEDTIME PRN (Reason: sleep) Qty: 30 2RF Hold Instructions: not currently taking valsartan 40 mg tablet 20 mg PO BID 0RF metoprolol succinate 25 mg tablet extended release 24 hr 25 mg PO BID 0RF potassium chloride 20 mEq tablet extended release 10 meq PO DAILY PRN (Reason: Take w/lasix) 0RF Rx Instructions: Take w/lasix prn fluticasone propionate 50 mcg/actuation spray,suspension 1 spray intranasal BID 0RF Rx Instructions: administer into each nostril diazepam 5 mg tablet 5 mg PO TID PRN (Reason: Anxiety) Qty: 90 0RF levalbuterol HCl 0.63 mg/3 mL solution for nebulization 0.63 mg INHALATION Q8H PRN (Reason: shortness of breath or wheezing) Qty: 90 11RF methocarbamol 750 mg tablet 750 mg PO TID PRN (Reason: Spasms) Qty: 90 3RF Rx Instructions: PRN epinephrine 0.3 mg/0.3 mL auto-injector 0.3 mg IM ONCE PRN (Reason: Allergic Reaction) Qty: 1 11RF budesonide-formoterol [Symbicort] 80-4.5 mcg/actuation HFA aerosol inhaler 2 puff INHALATION BID Qty: 10.2 0RF quetiapine 25 mg tablet See Rx Instructions PO BID Qty: 30 1RF Rx Instructions: 1/2 tab p.o. b.i.d. as needed anxiety sumatriptan succinate 100 mg tablet 100 mg PO ONCE PRN (Reason: migraine headache) Qty: 14 3RF Rx Instructions: take at onset, may repeat in 2 hours if no relief, max daily dose 2 tabs montelukast 10 mg tablet 10 mg PO BEDTIME PRN (Reason: Allergy Symptoms) Qty: 90 3RF levalbuterol tartrate [Xopenex HFA] 45 mcg/actuation HFA aerosol inhaler 2 inhalation INHALATION BID 0RF Rx Instructions: may take every 6hrs prn at home lidocaine 5 % Ointment 1 applic TOPICAL TID PRN (Reason: pain) 0RF ketotifen fumarate [Zaditor] 0.025 % (0.035 %) Drops 1 drp OPHTHALMIC (EYE) BID 0RF furosemide 40 mg tablet 40 mg PO DAILY PRN (Reason: edema) Qty: 30 0RF Rx Instructions: Take 1 tablet daily as needed for edema methylprednisolone 4 mg tablet 4 mg PO DAILY Qty: 5 0RF famotidine [Pepcid] 20 mg tablet 20 mg PO BID Qty: 10 0RF sennosides [senna] 8.6 mg Tablet 17.2 mg PO BEDTIME PRN (Reason: Constipation) 0RF diphenhydramine HCl [Benadryl] 25 mg Capsule 75 mg PO DAILY PRN (Reason: Allergy Symptoms) 0RF omeprazole 40 mg Capsule,Delayed Release(Dr/Ec) 40 mg PO BID 0RF ondansetron 8 mg Tablet,Disintegrating 8 mg PO Q8H PRN (Reason: Nausea) 0RF hydromorphone 2 mg Tablet 2 mg PO Q4HR PRN (Reason: Pain, Severe (7-10)) Qty: 10 0RF furosemide [Lasix] 20 mg tablet 20 mg PO DAILY Qty: 3 0RF Referrals: Becky Rod PA-C [Primary Care Provider] -
[2021-03-02] MEDS: methylPREDNISolone 125 MG/2 ML VIAL IV (13:49)
[2021-03-02 13:50] VITALS: PULSE 64; RESP 21
[2021-03-02] MEDS: SODIUM CHLORIDE 0.9% 1,000 ML 125 ML IV (13:50)
[2021-03-02] MEDS: diphenhydrAMINE 50 MG/ML VIAL 25 MG IV (13:50)
[2021-03-02 13:51] VITALS: BP 121/67; PULSE 63; RESP 20; O2SAT 96
[2021-03-02 13:54] LABS: Add Manual Diff / Slide Review NO; Basophils Absolute Auto 100 /uL (0-100); Basophils Percent Auto 0.7 % (0-2); Eosinophils Absolute Auto 100 /uL (0-450); Eosinophils Percent Auto 0.7 % (2-4); Hematocrit 33.1 % (36-46); Hemoglobin 10.9 g/dL (12.0-16.0); Lymphocytes Absolute Auto 1200 /uL (1100-4500); Lymphocytes Percent Auto 14.7 % (25-40); Mean Corpuscular HGB Conc 32.8 % (30-36); Mean Corpuscular Hemoglobin 27.8 PG (26-34); Mean Corpuscular Volume 84.7 fL (80-100); Monocytes Absolute Auto 300 /uL (0-900); Neutrophils Absolute Auto 6700 /uL (1500-7000); Neutrophils Percent Auto 79.9 % (50-75); Platelet Count 325 X10^3/uL (150-400); Red Cell Distribution Width 14.8 % (11.6-14.8); White Blood Cell Count 8.3 X10^3/uL (4.5-11.0)
[2021-03-02 14:00] VITALS: PULSE 59; RESP 24; O2SAT 96
[2021-03-02 14:01] LABS: Alanine Aminotransferase 26 IU/L (<35); Albumin 4.5 g/dL (3.5-5.0); Albumin Globulin Ratio 1.5 (1.0-2.8); Alkaline Phosphatase 104 U/L (38-126); Aspartate Aminotransferase 48 IU/L (14-36); BUN Creatinine Ratio 28.2 (6-22); Bilirubin Total 0.5 mg/dL (0.2-1.3); Blood Urea Nitrogen 31 mg/dL (7-17); Calcium 9.5 mg/dL (8.4-10.2); Carbon Dioxide 28 mmol/L (22-32); Chloride 102 mmol/L (98-107); Creatine Kinase 196 U/L (30-135); Estimated Glomerular Filt Rate 49.7 mL/min (>60); Globulin 3.1 g/dL (1.7-4.1); Glucose 115 mg/dL (80-110); HEMOLYSIS 23 (0-50); Magnesium 1.9 mg/dL (1.6-2.3); Potassium 3.1 mmol/L (3.4-5.1); Sodium 139 mmol/L (137-145); Total Protein 7.6 g/dL (6.3-8.2)
[2021-03-02 14:05] VITALS: BP 125/68; PULSE 62; RESP 24; O2SAT 94
[2021-03-02 14:13] LABS: NT-proBNP (BNP-Adult 18+) 119 pg/mL (<125); Troponin I < 0.012 ng/mL (0.01-0.034)
[2021-03-02 14:19] LABS: CKMB % Relative Index 1.5 % (1.5-5.0); Creatine Kinase MB 2.93 ng/mL (<2.37)
[2021-03-02 15:23] VITALS: BP 127/69; PULSE 61; RESP 18; O2SAT 98
== END 2021-03-02 15:23 | disposition home or self-care (01) ==
PROVIDERS: Emergency Provider Emergency Medicine; PCP Physician Assistant
DX: R06.00 Dyspnea, unspecified (principal)
CPT/HCPCS: 36415; 71275; 80053; 82550; 82553; 83735; 83880; 84484; 85025; 96361; 96374; 96375; 99284; J1200; J2930; Q9967

== ENCOUNTER 2021-03-07 18:29 | Emergency (ER) | payer MEDICARE, MEDICAID, SELFPAY ==
[2020-08-27 13:41] VITALS: BMI 35.4
[2021-03-07 18:42] VITALS: BP 124/55; PULSE 89; RESP 22; TEMP 37.2; O2SAT 99
--- NOTE | 2021-03-07 21:05 | DI.RAD.S_ITS ---
PROCEDURE: XR CHEST 1V INDICATIONS: Dyspnea TECHNIQUE: One view of the chest was acquired. COMPARISON: [facility], CR, XR CHEST 1V, 03/01/2021, 2:36. FINDINGS: Surgical changes and devices: None. Lungs and pleura: Increased interstitial markings with cephalization of pulmonary vessels. No pleural effusions or pneumothorax. Mediastinum: Mediastinal contours appear normal. Heart size is enlarged. Bones and chest wall: No suspicious bony lesions. Overlying soft tissues appear unremarkable. IMPRESSION: Cardiomegaly with mild pulmonary edema. Dictated by: Memo Olivo M.D. on 03/07/2021 at 21:31 Approved by: Memo Olivo M.D. on 03/07/2021 at 21:31
--- NOTE | 2021-03-07 21:06 | ED_ITS ---
HPI - URI/Sore Throat General Chief Complaint: Upper Respiratory Symptoms Stated Complaint: CONGESTION RESPIRATORY SYMPTOMS Time Seen by Provider: 03/07/21 20:42 Source: patient Mode of arrival: Ambulatory History of Present Illness HPI Narrative: Patient seen here 5 days ago for shortness of breath. CT angio PE protocol was negative for PE. Please see report below. Patient has been taking antibiotics for the past 5 days and feeling better but could not get more antibiotics because it was a leftover patch. Her family doctor would not prescribe her any more. Told her to go to emergency department. Patient has had Solu-Medrol wi thout any problems in the past patient has been admitted for respiratory infections in the past. Patient was taken doxycycline for [address] [address] [address] Scan Report Signed Patient: Sheryl Lennon MR#: [id number] : 1955 Acct:[id number] Age/Sex: 65 / F Date of Service: 03/02/21 Loc: ED Accession Number: [id number] ?? Procedure: CT angio chest PE protocol Ordering Provider: Gerson De Jesus D.O. PROCEDURE:? CT ANGIO CHEST PE PROTOCOL ? INDICATIONS:? CP, SOB, hypoxia ? TECHNIQUE:? After the administration of intravenous contrast, 2 mm thick sections acquired from the pulmonary apices to the posterior costophrenic angles.? 3-dimensional maximum intensity projection (MIP) coronal and sagittal reformats were then acquired through the thorax.? For radiation dose reduction, the following was used:? automated exposure control, adjustment of mA and/or kV according to patient size.? ? COMPARISON:? [facility], CT, CT ANGIO CHEST PE PROTOCOL, 12/21/2020, 19:09. ? FINDINGS:? Image quality:? Excellent.? ? Pulmonary arteries:? Pulmonary arteries are normal in size, and demonstrate no intraluminal filling defects to suggest central pulmonary embolism.? ? Lungs and pleura:? No acute airspace disease.? Redemonstration of dependent atelectasis involving the bilateral upper lower lobes and adjacent to the medial margin of the right lower lobe secondary to large hiatal hernia.? No pleural effusions or pneumothorax.? Central and peripheral airways are patent.? ? Mediastinum:? Heart size is normal, without pericardial effusion.? Coronary atherosclerosis as before.? No mediastinal or hilar adenopathy.? Thoracic aorta is normal in caliber and enhancement.? Esophagus is normal in caliber, stable appearance of large hiatal hernia.? ? Bones and chest wall:? No suspicious bony lesions.? Ribs and thoracic spine appear intact throughout.? Thyroid gland is unremarkable.? No axillary or supraclavicular adenopathy.? ? Abdomen:? Visualized upper abdominal solid organs appear normal in the early arterial phase of enhancement.? ? IMPRESSION:? 1. No acute pulmonary emboli or evidence for acute right-sided heart strain. ? 2. No acute cardiopulmonary abnormalities or focal airspace disease.? Stable appearance of dependent atelectasis. ? 3. Large hiatal hernia redemonstrated. ? 4. Atherosclerotic vascular disease.? ? ? Dictated by: Amol Higgins M.D. on 03/02/2021 at 14:58 ? ? Approved by: Amol Higgins M.D. on 03/02/2021 at 15:04 ? Related Data Home Medications Medication Instructions Recorded Confirmed sennosides 8.6 mg tablet (senna) 17.2 mg PO BEDTIME PRN 09/20/18 01/27/21 potassium chloride 20 mEq 10 meq PO DAILY PRN 10/29/18 01/27/21 tablet,extended release levalbuterol tartrate 45 2 inhalation INHALATION BID gram 08/26/19 01/27/21 mcg/actuation aerosol inhaler (Xopenex HFA) diphenhydramine HCl 25 mg capsule 75 mg PO DAILY PRN 10/26/19 01/27/21 (Benadryl) omeprazole 40 mg capsule,delayed 40 mg PO BID 02/10/20 01/27/21 release lidocaine 5 % topical ointment 1 applic TOPICAL TID PRN 02/24/20 01/27/21 ketotifen fumarate 0.025 % (0.035 1 drp OPHTHALMIC (EYE) BID 03/02/20 01/27/21 %) eye drops (Zaditor) fluticasone propionate 50 1 spray INTRANASAL BID 04/02/20 01/27/21 mcg/actuation nasal spray,suspension ondansetron 8 mg disintegrating 8 mg PO Q8H PRN 06/29/20 01/27/21 tablet metoprolol succinate 25 mg 25 mg PO BID 01/27/21 01/27/21 tablet,extended release 24 hr valsartan 40 mg tablet 20 mg PO BID 01/27/21 01/27/21 Previous Rx's Medication Instructions Recorded levalbuterol HCl 0.63 mg/3 mL 0.63 mg (3 mL) INHALATION Q8H PRN 09/11/19 solution for nebulization #90 ml methocarbamol 750 mg tablet 750 mg PO TID PRN #90 tab 09/29/19 epinephrine 0.3 mg/0.3 mL 0.3 mg (0.3 mL) IM ONCE PRN #1 ea 01/01/20 injection, auto-injector budesonide-formoterol HFA 80 2 puff INHALATION BID #10.2 gram 01/28/20 mcg-4.5 mcg/actuation aerosol inhaler (Symbicort) montelukast 10 mg tablet 10 mg PO BEDTIME PRN #90 tab 02/23/20 sumatriptan succinate 100 mg tablet 100 mg PO ONCE PRN #14 tab 02/23/20 furosemide 40 mg tablet 40 mg PO DAILY PRN #30 tab 03/04/20 diazepam 5 mg tablet 5 mg PO TID PRN #90 tab 09/10/20 Trintellix 20 mg tablet 20 mg PO DAILY #30 tab NS 09/28/20 (vortioxetine) hydromorphone 2 mg tablet 2 mg PO Q4HR PRN #10 tab 11/22/20 mirtazapine 7.5 mg tablet 7.5 mg PO BEDTIME PRN #30 tab 11/24/20 famotidine 20 mg tablet (Pepcid) 20 mg PO BID #10 tab 01/12/21 methylprednisolone 4 mg tablet 4 mg PO DAILY #5 tab 01/12/21 furosemide 20 mg tablet (Lasix) 20 mg PO DAILY #3 tab 01/13/21 quetiapine 25 mg tablet See Rx Instructions PO BID #30 tab 01/18/21 doxycycline hyclate 100 mg capsule 100 mg PO BID #4 cap 03/07/21 Allergies Allergy/AdvReac Type Severity Reaction Status Date / Time Iodinated Contrast Media Allergy Severe Difficulty Verified 02/26/21 13:24 Breathing iodine Allergy Severe Difficulty Verified 02/26/21 13:24 Breathing latex Allergy Severe Rash Verified 02/26/21 13:24 morphine [MORPHINE] Allergy Severe Anaphylaxis Verified 02/26/21 13:24 Penicillins [PENICILLINS] Allergy Severe Anaphylaxis Verified 02/26/21 13:24 Sulfa (Sulfonamide Allergy Severe RASH Verified 02/26/21 13:24 Antibiotics) [SULFA (SULFONAMIDE ANTIBIOTICS)] azithromycin Allergy Intermediate Rash Verified 02/26/21 13:24 [From ZITHROMAX Z-MARILYN] cefuroxime [From Ceftin] Allergy Intermediate Rash Verified 02/26/21 13:24 sulfamethoxazole Allergy Intermediate RASH Verified 02/26/21 13:24 [From SEPTRA] trimethoprim [From SEPTRA] Allergy Intermediate RASH Verified 02/26/21 13:24 ciprofloxacin [From Cipro] Allergy Pt does Verified 02/26/21 13:24 not remember reaction Corticosteroids Allergy Swelling Verified 02/26/21 13:24 (Glucocorticoids) of Lip/Tongue/Throat cephalexin [From Keflex] AdvReac Severe Fever, Verified 02/26/21 13:24 Asthma, Tachycardia prednisone AdvReac Severe nausea and Verified 02/26/21 13:24 feels very weak, and axious verapamil AdvReac Intermediate Asthma Verified 02/26/21 13:24 symptoms zonisamide AdvReac Intermediate Asthma Verified 02/26/21 13:24 symptoms Review of Systems Review of Systems Narrative: GENERAL: Denies chills, fatigue, malaise, fever, sweats. HEENT: Denies sinus pain, ear pain, sore throat RESPIRATORY: Positive dyspnea, cough CARDIOVASCULAR: Denies chest pain, palpitations GASTROINTESTINAL: Denies nausea, vomiting, abdominal pain : Denies dysuria, frequency, hematuria MUSCULOSKELETAL: denies muscle or bony pain SKIN: Denies rash, skin lesions NEUROLOGIC: Denies weakness, numbness ROS Unobtainable: All systems reviewed & are unremarkable except as noted in HPI and below Patient History Medical History Anemia Anxiety Asthma Chronic back pain Chronic cough Depression Femur fracture, left Fibromyalgia Fractures GERD (gastroesophageal reflux disease) Hiatal hernia Recurrent sinusitis Venous insufficiency (chronic) (peripheral) Surgical History Anesthesia History of eye surgery (~1973) History of foot surgery History of hysterectomy (~1979) History of shoulder surgery (~2011) History of tonsillectomy (~1975) Hx of bilateral cataract extraction Family History Mother Heart disease Social History marital status: number of children: 1 household members: none lives independently: Yes caregiver/support person: Yes (3 afternoons per week) pets and animals: Yes occupational status: disabled Smoking Status: Never smoker alcohol intake: never substance use type: does not use Smoking Status: Never smoker alcohol intake frequency: holidays/special occasions only Substance Use Type: does not use Exam Narrative Exam Narrative: GENERAL: in no distress, not toxic not dyspneic HEAD: Normocephalic. EYES: Pupils equal round No scleral icterus. NECK: Trachea midline. CARDIOVASCULAR: Regular rate and rhythm without murmurs RESPIRATORY: Full and equal lung sounds. Speaking full sentences. Small diffuse amount mild wheezing bilaterally. No rales or rhonchi. No respiratory distress. Has a dry cough. GASTROINTESTINAL: Abdomen soft, non-tender EXTREMITIES: No calf tenderness NEURO: AOx4. SKIN: Warm and dry PSYCH: Not anxious, is cooperative Initial Vital Signs Initial Vital Signs: Vital Signs Temperature 98.9 F 03/07/21 18:42 Pulse Rate 89 03/07/21 18:42 Respiratory Rate 22 03/07/21 18:42 Blood Pressure 124/55 L 03/07/21 18:42 Pulse Oximetry 99 03/07/21 18:42 Course Course Course Narrative: No new issues during course of stay. Orders Ordered: ED Orders 03/07/21 21:05 XR chest 1V Stat 03/07/21 21:20 Complete Blood Count AUTO DIFF Stat Comprehensive Metabolic Panel Stat 03/07/21 21:21 Respiratory Panel (Film Array) Stat Discontinued Medications Methylprednisolone (Methylprednisolone 125 Mg/2 Ml Vial) 125 mg IV NOW ONE Stop: 03/07/21 21:06 Last Admin: 03/07/21 21:32 Dose: 125 mg Documented by: CARO Reevaluation(s) Reevaluation #1: Reviewed results with patient. At this time exam and laboratory studies reassuring other than COVID results. Patient not hypoxic. Not requiring supplemental oxygen. Reviewed patient no further antibiotics indicated. For COVID infections they are not indicated this time. No signs of secondary/bacterial infection. However, she did take 5 days of antibiotics/doxycycline. There could have an underlying bacterial infection given CT scan report from 5 days ago. She is here for antibiotics she states. Her family doctor within prescribed until evaluated by emergency department Time: 23:31 Vital Signs Vital signs: Vital Signs - 8 hr 03/07/21 23:36 Temperature 98.8 F Pulse Rate 80 Respiratory Rate 18 Pulse Oximetry 98 MDM - URI/Sore Throat Differential Diagnosis Differential diagnosis: Likely upper respiratory infection, viral infection, bronchitis and other (Community-acquired pneumonia) Lab Data Result diagrams: 03/07/21 21:20 03/07/21 21:20 Labs: Lab Results 03/07/21 03/07/21 03/07/21 Range/Units 21:20 21:20 21:21 WBC 4.6 (4.5-11.0) X10^3/uL RBC 3.76 L (4.0-5.2) X10^6/uL Hgb 10.6 L (12.0-16.0) g/dL Hct 31.8 L (36-46) % MCV 84.7 (80-100) fL MCH 28.2 (26-34) PG MCHC 33.3 (30-36) % RDW 14.8 (11.6-14.8) % Plt Count 289 (150-400) X10^3/uL Neut % (Auto) 50.3 (50-75) % Lymph % (Auto) 34.9 (25-40) % [place] % (Auto) 12.0 (3-14) % Eos % (Auto) 1.6 L (2-4) % Baso % (Auto) 1.2 (0-2) % Neut # (Auto) 2300 (2051-1436) /uL Lymph # (Auto) 1600 (6189-0218) /uL [place] # (Auto) 600 (0-900) /uL Eos # (Auto) 100 (0-450) /uL Baso # (Auto) 100 (0-100) /uL Sodium 138 (137-145) mmol/L Potassium 3.0 L (3.4-5.1) mmol/L Chloride 105 (98-107) mmol/L Carbon Dioxide 31 (22-32) mmol/L BUN 27 H (7-17) mg/dL Creatinine 0.95 (0.52-1.04) mg/dL Estimated GFR 58.9 L (>60) mL/min BUN/Creatinine Ratio 28.4 H (6-22) Glucose 97 (80-110) mg/dL Calcium 9.0 (8.4-10.2) mg/dL Total Bilirubin 0.2 (0.2-1.3) mg/dL AST 35 (14-36) IU/L ALT 23 (<35) IU/L Alkaline Phosphatase 92 (38-126) U/L Total Protein 6.8 (6.3-8.2) g/dL Albumin 3.8 (3.5-5.0) g/dL Globulin 3.0 (1.7-4.1) g/dL Albumin/Globulin Ratio 1.3 (1.0-2.8) Chlamy pneumoniae PCR Not detected (Not Detect) Adenovirus (PCR) Not detected (Not Detect) B. pertussis DNA (PCR) Not detected (Not Detecte) B.parapertussis DNA PCR Not detected (Not Detecte) Coronavirus OC43 (PCR) Not detected (Not Detect) Coronavirus HKU1 (PCR) Not detected (Not Detect) Coronavirus 229E (PCR) Not detected (Not Detect) SARS-CoV-2 (PCR) Detected H (Not Detecte) Coronavirus NL63 (PCR) Not detected (Not Detect) Human Metapneumovir PCR Not detected (Not Detect) Influenza Type A (PCR) Not detected (Not Detect) Influenza Type B (PCR) Not detected (Not Detect) M. pneumoniae (PCR) Not detected (Not Detect) Parainfluenza 1 (PCR) Not detected (Not Detect) Parainfluenza 2 (PCR) Not detected (Not Detect) Parainfluenza 3 (PCR) Not detected (Not Detect) Parainfluenza 4 (PCR) Not detected (Not Detect) RSV (PCR) Not detected (Not Detect) Entero/Rhino (PCR) Not detected (Not Detect) Imaging Data Chest x-ray: Radiologist's Impression: [address] [address] XRay Report Signed Patient: Sheryl Lennon MR#: [id number] : 1955 Acct:[id number] Age/Sex: 65 / F Date of Service: 03/07/21 Loc: ED Accession Number: [id number] ?? Procedure: XR chest 1V Ordering Provider: Hank Delgado MD PROCEDURE:? XR CHEST 1V ? INDICATIONS:? Dyspnea ? TECHNIQUE:? One view of the chest was acquired.? ? COMPARISON:? [facility], CR, XR CHEST 1V, 03/01/2021, 2:36. ? FINDINGS:? ? Surgical changes and devices:? None.? ? Lungs and pleura:? Increased interstitial markings with cephalization of pulmonary vessels.? No pleural effusions or pneumothorax.? ? Mediastinum:? Mediastinal contours appear normal.? Heart size is enlarged.? ? Bones and chest wall:? No suspicious bony lesions.? Overlying soft tissues appear unremarkable.? ? IMPRESSION:? Cardiomegaly with mild pulmonary edema.? ? ? Dictated by: Memo Olivo M.D. on 03/07/2021 at 21:31 ? ? Approved by: Memo Olivo M.D. on 03/07/2021 at 21:31 ? MDM Narrative Medical decision making narrative: Appropriate for discharge home. Blood work and imaging reassuring. Not hypoxic not tachypneic. Not requiring supplemental oxygen. No further antibiotics indicated. Reviewed with patient treatment for COVID infections does not indicate for antibiotics. Return precautions reviewed with her. Not toxic. Not dyspneic. However, she could have had underlying bacterial infection given CT scan report from previous. She did improve while taking doxycycline for the past 5 days. Prescription for for capsules provided for her. Sent to her pharmacy Discharge Plan Departure Patient Disposition: Home Clinical Impression: COVID-19 Instructions: DI for COVID-19 (Suspected or Confirmed ) Activity Restrictions/Additional Instructions: See family doctor in a week for recheck. Please continue quarantine 10 days from 1st day of symptoms. Continue [id number] cough medication and your home breathing treatments. Return if worse if any questions or concerns or trouble breathing Prescriptions: New doxycycline hyclate 100 mg capsule 100 mg PO BID Qty: 4 0RF No Action Trintellix 20 mg tablet 20 mg PO DAILY Qty: 30 5RF mirtazapine 7.5 mg tablet 7.5 mg PO BEDTIME PRN (Reason: sleep) Qty: 30 2RF Hold Instructions: not currently taking valsartan 40 mg tablet 20 mg PO BID 0RF metoprolol succinate 25 mg tablet extended release 24 hr 25 mg PO BID 0RF potassium chloride 20 mEq tablet extended release 10 meq PO DAILY PRN (Reason: Take w/lasix) 0RF Rx Instructions: Take w/lasix prn fluticasone propionate 50 mcg/actuation spray,suspension 1 spray intranasal BID 0RF Rx Instructions: administer into each nostril diazepam 5 mg tablet 5 mg PO TID PRN (Reason: Anxiety) Qty: 90 0RF levalbuterol HCl 0.63 mg/3 mL solution for nebulization 0.63 mg INHALATION Q8H PRN (Reason: shortness of breath or wheezing) Qty: 90 11RF methocarbamol 750 mg tablet 750 mg PO TID PRN (Reason: Spasms) Qty: 90 3RF Rx Instructions: PRN epinephrine 0.3 mg/0.3 mL auto-injector 0.3 mg IM ONCE PRN (Reason: Allergic Reaction) Qty: 1 11RF budesonide-formoterol [Symbicort] 80-4.5 mcg/actuation HFA aerosol inhaler 2 puff INHALATION BID Qty: 10.2 0RF quetiapine 25 mg tablet See Rx Instructions PO BID Qty: 30 1RF Rx Instructions: 1/2 tab p.o. b.i.d. as needed anxiety sumatriptan succinate 100 mg tablet 100 mg PO ONCE PRN (Reason: migraine headache) Qty: 14 3RF Rx Instructions: take at onset, may repeat in 2 hours if no relief, max daily dose 2 tabs montelukast 10 mg tablet 10 mg PO BEDTIME PRN (Reason: Allergy Symptoms) Qty: 90 3RF levalbuterol tartrate [Xopenex HFA] 45 mcg/actuation HFA aerosol inhaler 2 inhalation INHALATION BID 0RF Rx Instructions: may take every 6hrs prn at home lidocaine 5 % Ointment 1 applic TOPICAL TID PRN (Reason: pain) 0RF ketotifen fumarate [Zaditor] 0.025 % (0.035 %) Drops 1 drp OPHTHALMIC (EYE) BID 0RF furosemide 40 mg tablet 40 mg PO DAILY PRN (Reason: edema) Qty: 30 0RF Rx Instructions: Take 1 tablet daily as needed for edema methylprednisolone 4 mg tablet 4 mg PO DAILY Qty: 5 0RF famotidine [Pepcid] 20 mg tablet 20 mg PO BID Qty: 10 0RF sennosides [senna] 8.6 mg Tablet 17.2 mg PO BEDTIME PRN (Reason: Constipation) 0RF diphenhydramine HCl [Benadryl] 25 mg Capsule 75 mg PO DAILY PRN (Reason: Allergy Symptoms) 0RF omeprazole 40 mg Capsule,Delayed Release(Dr/Ec) 40 mg PO BID 0RF ondansetron 8 mg Tablet,Disintegrating 8 mg PO Q8H PRN (Reason: Nausea) 0RF hydromorphone 2 mg Tablet 2 mg PO Q4HR PRN (Reason: Pain, Severe (7-10)) Qty: 10 0RF furosemide [Lasix] 20 mg tablet 20 mg PO DAILY Qty: 3 0RF Referrals: Becky Rod PA-C [Primary Care Provider] -
[2021-03-07] MEDS: methylPREDNISolone 125 MG/2 ML VIAL IV (21:32)
[2021-03-07 21:37] LABS: Add Manual Diff / Slide Review NO; Basophils Absolute Auto 100 /uL (0-100); Basophils Percent Auto 1.2 % (0-2); Eosinophils Absolute Auto 100 /uL (0-450); Eosinophils Percent Auto 1.6 % (2-4); Hematocrit 31.8 % (36-46); Hemoglobin 10.6 g/dL (12.0-16.0); Lymphocytes Absolute Auto 1600 /uL (1100-4500); Lymphocytes Percent Auto 34.9 % (25-40); Mean Corpuscular HGB Conc 33.3 % (30-36); Mean Corpuscular Hemoglobin 28.2 PG (26-34); Mean Corpuscular Volume 84.7 fL (80-100); Monocytes Absolute Auto 600 /uL (0-900); Neutrophils Absolute Auto 2300 /uL (1500-7000); Neutrophils Percent Auto 50.3 % (50-75); Platelet Count 289 X10^3/uL (150-400); Red Blood Cell Count 3.76 X10^6/uL (4.0-5.2); Red Cell Distribution Width 14.8 % (11.6-14.8); White Blood Cell Count 4.6 X10^3/uL (4.5-11.0)
[2021-03-07 21:41] LABS: Alanine Aminotransferase 23 IU/L (<35); Albumin 3.8 g/dL (3.5-5.0); Albumin Globulin Ratio 1.3 (1.0-2.8); Alkaline Phosphatase 92 U/L (38-126); Aspartate Aminotransferase 35 IU/L (14-36); BUN Creatinine Ratio 28.4 (6-22); Bilirubin Total 0.2 mg/dL (0.2-1.3); Blood Urea Nitrogen 27 mg/dL (7-17); Carbon Dioxide 31 mmol/L (22-32); Chloride 105 mmol/L (98-107); Estimated Glomerular Filt Rate 58.9 mL/min (>60); Glucose 97 mg/dL (80-110); HEMOLYSIS < 15 (0-50); Sodium 138 mmol/L (137-145); Total Protein 6.8 g/dL (6.3-8.2)
[2021-03-07 23:04] LABS: Adenovirus Not Detected (Not Detect); Coronavirus 229E Not Detected (Not Detect); Coronavirus HKU1 Not Detected (Not Detect); Coronavirus NL 63 Not Detected (Not Detect); Coronavirus OC43 Not Detected (Not Detect); Human Metapneumovirus Not Detected (Not Detect); Human Rhinovirus/Enterovirus Not Detected (Not Detect)
[2021-03-07 23:05] LABS: B. parapertussis Not Detected (Not Detecte); Bordetella pertussis Not Detected (Not Detecte); Chlamydophila pneumoniae Not Detected (Not Detect); Influenza A Not Detected (Not Detect); Influenza B Not Detected (Not Detect); Mycoplasma pneumoniae Not Detected (Not Detect); Parainfluenza Virus 1 Not Detected (Not Detect); Parainfluenza Virus 2 Not Detected (Not Detect); Parainfluenza Virus 3 Not Detected (Not Detect); Parainfluenza Virus 4 Not Detected (Not Detect); Respiratory Syncytial Virus Not Detected (Not Detect); SARS- CoV-2 Detected (Not Detecte)
[2021-03-07 23:36] VITALS: PULSE 80; RESP 18; TEMP 37.1; O2SAT 98
== END 2021-03-07 23:40 | disposition home or self-care (01) ==
PROVIDERS: Emergency Provider Emergency Medicine; PCP Physician Assistant
DX: U07.1 COVID-19 (principal)
CPT/HCPCS: 36415; 71045; 80053; 85025; 87633; 96374; 99284; J2930

== ENCOUNTER → 2021-05-30 14:07 | Outpatient (CLI) | payer OTHER, SELFPAY ==
[2020-08-27 13:41] VITALS: BMI 35.4
[2021-05-30 15:19] LABS: BUN Creatinine Ratio 33.7 (6-22); Blood Urea Nitrogen 33 mg/dL (7-17); Calcium 9.4 mg/dL (8.4-10.2); Carbon Dioxide 33 mmol/L (22-32); Chloride 101 mmol/L (98-107); Estimated Glomerular Filt Rate > 60 mL/min (>60); Glucose 137 mg/dL (80-110); HEMOLYSIS < 15 (0-50); Potassium 3.6 mmol/L (3.4-5.1); Sodium 140 mmol/L (137-145)
== END ==
PROVIDERS: PCP Family Medicine; Referring Provider Nurse Practitioner; Visit Provider Nurse Practitioner
DX: Z01.818 Encounter for other preprocedural examination (principal); I50.32 Chronic diastolic (congestive) heart failure
CPT/HCPCS: 36415; 80048

== ENCOUNTER 2021-06-04 11:55 | Observation (INO) | payer OTHER, MEDICAID, SELFPAY ==
[2020-08-27 13:41] VITALS: BMI 35.4
[2021-06-04] VITALS (23 sets, daily range): BP systolic 104–153; BP diastolic 58–93; PULSE 72–98; RESP 12–38; TEMP 36.2–36.7; O2SAT 88–96; BMI 39.6
--- NOTE | 2021-06-04 12:05 | DI.RAD.S_ITS ---
PROCEDURE: XR CHEST 1V INDICATIONS: Flu like symptoms TECHNIQUE: One view of the chest was acquired. COMPARISON: Located Within [facility], CR, XR CHEST 1V, 03/07/2021, 21:19. FINDINGS: Surgical changes and devices: None. Lungs and pleura: Lungs are clear. No pleural effusions or pneumothorax. Mediastinum: Heart size is enlarged. Mild vascular congestion noted. Left basilar atelectasis and infiltrate. Low lung volumes accentuate pulmonary interstitium and heart size. Bones and chest wall: No suspicious bony lesions. Overlying soft tissues appear unremarkable. IMPRESSION: Cardiomegaly, mild vascular congestion and left basilar atelectasis and infiltrate Dictated by: Carlton Ashley M.D. on 06/04/2021 at 11:46 Approved by: Carlton Ashley M.D. on 06/04/2021 at 11:47
--- NOTE | 2021-06-04 12:24 | ED_ITS ---
HPI - General Adult General Chief complaint: Shortness of Breath/Dyspnea Stated complaint: Trouble breathing Time Seen by Provider: 06/04/21 12:05 Source: patient Mode of arrival: Wheelchair History of Present Illness HPI narrative: 65-year-old woman with a history of asthma, chronic cough, anxiety and depression, hypertension presents with 3-4 days of increasing cough and dyspnea. She completed a recent course of steroids approximately 3 weeks ago for similar complaints. This morning she notes that after using her budesonide, Pulmicort and albuterol she still was having difficulty breathing. Comes in for further evaluation. She states that she has no fever, minimally to non productive cough, no abdominal pain, palpitations, headache, vomiting or diarrhea. She has not noticed increased lower extremity edema. She states that she does have some chest pressure and is able to speak in 4-5 word sentences. Moderately tachypne ic and oxygen saturations were 87-88% on room air on arrival. She was not using accessory muscles of but also with overall poor air movement. Related Data Home Medications Medication Instructions Recorded Confirmed sennosides 8.6 mg tablet (senna) 17.2 mg PO BEDTIME PRN 09/20/18 04/11/21 potassium chloride 20 mEq 10 meq PO DAILY PRN 10/29/18 04/11/21 tablet,extended release diphenhydramine HCl 25 mg capsule 75 mg PO DAILY PRN 10/26/19 04/11/21 (Benadryl) omeprazole 40 mg capsule,delayed 40 mg PO BID 02/10/20 04/11/21 release lidocaine 5 % topical ointment 1 applic TOPICAL TID PRN 02/24/20 04/11/21 ketotifen fumarate 0.025 % (0.035 1 drp OPHTHALMIC (EYE) BID 03/02/20 04/11/21 %) eye drops (Zaditor) fluticasone propionate 50 1 spray INTRANASAL BID 04/02/20 04/11/21 mcg/actuation nasal spray,suspension ondansetron 8 mg disintegrating 8 mg PO Q8H PRN 06/29/20 04/11/21 tablet metoprolol succinate 25 mg 25 mg PO BID 01/27/21 04/11/21 tablet,extended release 24 hr valsartan 40 mg tablet 20 mg PO BID 01/27/21 04/11/21 acetaminophen 500 mg capsule 500 mg PO Q6H PRN 04/11/21 04/11/21 gabapentin 600 mg tablet 600 mg PO TID 04/11/21 04/11/21 ibuprofen 200 mg tablet 200 mg PO Q6H PRN 04/11/21 04/11/21 pramipexole 0.75 mg tablet 0.75 mg PO DAILY 04/11/21 04/11/21 tiotropium bromide 18 mcg capsule 1 cap INHALATION DAILY 04/11/21 04/11/21 with inhalation device (Spiriva with HandiHaler) Previous Rx's Medication Instructions Recorded methocarbamol 750 mg tablet 750 mg PO TID PRN #90 tab 09/29/19 epinephrine 0.3 mg/0.3 mL 0.3 mg (0.3 mL) IM ONCE PRN #1 ea 01/01/20 injection, auto-injector sumatriptan succinate 100 mg tablet 100 mg PO ONCE PRN #14 tab 02/23/20 furosemide 40 mg tablet 40 mg PO DAILY PRN #30 tab 03/04/20 famotidine 20 mg tablet (Pepcid) 20 mg PO BID #10 tab 01/12/21 methylprednisolone 4 mg tablet 4 mg PO DAILY #5 tab 01/12/21 furosemide 20 mg tablet (Lasix) 20 mg PO DAILY #3 tab 01/13/21 doxycycline hyclate 100 mg capsule 100 mg PO BID #4 cap 03/07/21 Trintellix 20 mg tablet 20 mg PO DAILY #30 tab NS 04/11/21 (vortioxetine) mirtazapine 7.5 mg tablet 7.5 mg PO BEDTIME PRN #30 tab 04/11/21 montelukast 10 mg tablet See Rx Instructions .ROUTE 04/22/21 .COMPLEX #90 tab diazepam 5 mg tablet 5 mg PO BID #60 tab 05/18/21 quetiapine 25 mg tablet See Rx Instructions PO BID #75 tab 05/18/21 Allergies Allergy/AdvReac Type Severity Reaction Status Date / Time Iodinated Contrast Media Allergy Severe Difficulty Verified 06/04/21 12:15 Breathing iodine Allergy Severe Difficulty Verified 06/04/21 12:15 Breathing latex Allergy Severe Rash Verified 06/04/21 12:15 morphine [MORPHINE] Allergy Severe Anaphylaxis Verified 06/04/21 12:15 Penicillins [PENICILLINS] Allergy Severe Anaphylaxis Verified 06/04/21 12:15 Sulfa (Sulfonamide Allergy Severe RASH Verified 06/04/21 12:15 Antibiotics) [SULFA (SULFONAMIDE ANTIBIOTICS)] azithromycin Allergy Intermediate Rash Verified 06/04/21 12:15 [From ZITHROMAX Z-MARILYN] cefuroxime [From Ceftin] Allergy Intermediate Rash Verified 06/04/21 12:15 sulfamethoxazole Allergy Intermediate RASH Verified 06/04/21 12:15 [From SEPTRA] trimethoprim [From SEPTRA] Allergy Intermediate RASH Verified 06/04/21 12:15 ciprofloxacin [From Cipro] Allergy Pt does Verified 06/04/21 12:15 not remember reaction Corticosteroids Allergy Swelling Verified 06/04/21 12:15 (Glucocorticoids) of Lip/Tongue/Throat cephalexin [From Keflex] AdvReac Severe Fever, Verified 06/04/21 12:15 Asthma, Tachycardia prednisone AdvReac Severe nausea and Verified 06/04/21 12:15 feels very weak, and axious verapamil AdvReac Intermediate Asthma Verified 06/04/21 12:15 symptoms zonisamide AdvReac Intermediate Asthma Verified 06/04/21 12:15 symptoms Review of Systems Review of Systems Narrative: Remainder of complete review of systems is otherwise unremarkable except for that included in the HPI. Patient History Medical History Anemia Anxiety Asthma Chronic back pain Chronic cough Depression Femur fracture, left Fibromyalgia Fractures GERD (gastroesophageal reflux disease) Hiatal hernia Recurrent sinusitis Venous insufficiency (chronic) (peripheral) Surgical History Anesthesia History of eye surgery (~1973) History of foot surgery History of hysterectomy (~1979) History of shoulder surgery (~2011) History of tonsillectomy (~1975) Hx of bilateral cataract extraction Family History Mother Heart disease Social History marital status: number of children: 1 household members: none lives independently: Yes caregiver/support person: Yes (3 afternoons per week) pets and animals: Yes occupational status: disabled Smoking Status: Never smoker alcohol intake: never substance use type: does not use Smoking Status: Never smoker alcohol intake frequency: holidays/special occasions only Substance Use Type: does not use Exam Initial Vital Signs Initial Vital Signs: Vital Signs Temperature 98.1 F 06/04/21 11:55 Pulse Rate 89 06/04/21 11:55 Respiratory Rate 38 H 06/04/21 11:55 Blood Pressure 130/71 06/04/21 11:55 Pulse Oximetry 94 06/04/21 11:55 General: Chronically ill-appearing in moderate respiratory distress. 4-5 word sentences. HEENT: Moist mucous membranes, normal sclera with reactive pupils, Neck: No JVD, supple Respiratory: Lungs with poor air movement overall. High-pitched squeaks from her upper airways, significant bowel noises appreciated through her entire left hemithorax. No rhonchi and no crackles appreciated Cardiac: Regular rate and rhythm no murmurs no bruits Abdomen: Soft, nontender, good bowel tones, no flank pain Skin: Pale but otherwise Warm and dry, no rashes Neurologic: Globally weak but otherwise Grossly neurologically intact with no obvious asymmetries or abnormalities Extremities: No trauma, well perfused, 1+ bilateral lower extremity edema without chronic venous stasis changes. Good overall perfusion Psych: Cooperative, mildly anxious but otherwise appropriate insight and affect Course Orders Ordered: ED Orders 06/04/21 12:05 XR chest 1V Stat RT Consult Eval and Treat Now 06/04/21 12:17 EKG-12 Lead Stat 06/04/21 12:30 Complete Blood Count AUTO DIFF Stat Comprehensive Metabolic Panel Stat Lactate (Lactic Acid) Stat NT-proBNP (BNP-Adult 18+) Stat Troponin & CK Cardiac Panel Stat 06/04/21 12:35 COVID19 -Nasal RAPID/Pre-Proc Stat Respiratory Panel (Film Array) Stat Discontinued Medications Albuterol/Ipratropium (Albuterol/Ipratropium 3 Ml Ampul) 3 ml INH NOW ONE Stop: 06/04/21 12:36 Last Admin: 06/04/21 12:59 Dose: 3 ml Documented by: ANA Sodium Chloride (Normal Saline 0.9%) 1,000 mls @ 1,000 mls/hr IV BOLUS ONE Stop: 06/04/21 13:35 Last Admin: 06/04/21 13:01 Dose: 1,000 mls/hr Documented by: ANA Magnesium Sulfate (Magnesium Sulfate) 2 gm in 50 mls @ 150 mls/hr IV NOW ONE Stop: 06/04/21 12:55 Last Infusion: 06/04/21 13:42 Dose: 0 mls/hr Documented by: VENKATA Cosigned by: RONALDO Admin: 06/04/21 13:03 Dose: 150 mls/hr Documented by: ANA Cosigned by: ATAYLCHAZ Lorazepam (Lorazepam 2 Mg/Ml Inj) 0.5 mg IV NOW ONE Stop: 06/04/21 13:44 Last Admin: 06/04/21 14:08 Dose: 0.5 mg Documented by: Methylprednisolone (Methylprednisolone 125 Mg/2 Ml Vial) 125 mg IV NOW ONE Stop: 06/04/21 12:37 Last Admin: 06/04/21 13:00 Dose: 125 mg Documented by: ANA Potassium Chloride (Potassium Chloride 20 Meq Tab) 40 meq PO NOW ONE Stop: 06/04/21 13:44 Last Admin: 06/04/21 14:08 Dose: 40 meq Documented by: Vital Signs Vital signs: Vital Signs - 8 hr 06/04/21 11:55 06/04/21 12:04 06/04/21 12:30 Temperature 98.1 F Pulse Rate 89 84 81 Respiratory Rate 38 H 18 31 H Blood Pressure 130/71 128/93 H Pulse Oximetry 94 92 95 06/04/21 12:58 06/04/21 13:00 06/04/21 13:01 Temperature Pulse Rate 79 77 72 Respiratory Rate 35 H 38 H 28 H Blood Pressure 153/69 H 117/58 L Pulse Oximetry 95 94 96 06/04/21 13:02 06/04/21 13:25 06/04/21 13:27 Temperature Pulse Rate Respiratory Rate Blood Pressure Pulse Oximetry 95 88 L 93 Medical Decision Making Lab Data Result diagrams: 06/04/21 12:30 06/04/21 12:30 Labs: Lab Results 06/04/21 06/04/21 06/04/21 Range/Units 12:30 12:30 12:30 WBC 7.8 (4.5-11.0) X10^3/uL RBC 4.20 (4.0-5.2) X10^6/uL Hgb 11.8 L (12.0-16.0) g/dL Hct 34.4 L (36-46) % MCV 81.9 (80-100) fL MCH 28.0 (26-34) PG MCHC 34.2 (30-36) % RDW 16.2 H (11.6-14.8) % Plt Count 287 (150-400) X10^3/uL Neut % (Auto) 65.2 (50-75) % Lymph % (Auto) 21.6 L (25-40) % [place] % (Auto) 9.4 (3-14) % Eos % (Auto) 2.7 (2-4) % Baso % (Auto) 1.1 (0-2) % Neut # (Auto) 5100 (0879-2328) /uL Lymph # (Auto) 1700 (3521-4381) /uL [place] # (Auto) 700 (0-900) /uL Eos # (Auto) 200 (0-450) /uL Baso # (Auto) 100 (0-100) /uL Sodium 139 (137-145) mmol/L Potassium 2.9 L (3.4-5.1) mmol/L Chloride 98 (98-107) mmol/L Carbon Dioxide 34 H (22-32) mmol/L BUN 29 H (7-17) mg/dL Creatinine 0.94 (0.52-1.04) mg/dL Estimated GFR > 60 (>60) mL/min BUN/Creatinine Ratio 30.9 H (6-22) Glucose 139 H (80-110) mg/dL Lactate 1.6 (0.7-2.1) mmol/L Calcium 9.1 (8.4-10.2) mg/dL Total Bilirubin 0.3 (0.2-1.3) mg/dL AST 33 (14-36) IU/L ALT 24 (<35) IU/L Alkaline Phosphatase 108 (38-126) U/L Total Creatine Kinase (30-135) U/L CK-MB (CK-2) (<2.37) ng/mL CK-MB (CK-2) Rel Index (1.5-5.0) % Troponin I (0.01-0.034) ng/mL NT-Pro-B Natriuret Pep 27 (<125) pg/mL Total Protein 7.5 (6.3-8.2) g/dL Albumin 4.4 (3.5-5.0) g/dL Globulin 3.1 (1.7-4.1) g/dL Albumin/Globulin Ratio 1.4 (1.0-2.8) Chlamy pneumoniae PCR (Not Detect) Adenovirus (PCR) (Not Detect) B. pertussis DNA (PCR) (Not Detecte) B.parapertussis DNA PCR (Not Detecte) Coronavirus OC43 (PCR) (Not Detect) Coronavirus HKU1 (PCR) (Not Detect) Coronavirus 229E (PCR) (Not Detect) SARS-CoV-2 (PCR) (Not Detecte) Coronavirus NL63 (PCR) (Not Detect) Human Metapneumovir PCR (Not Detect) Influenza Type A (PCR) (Not Detect) Influenza Type B (PCR) (Not Detect) M. pneumoniae (PCR) (Not Detect) Parainfluenza 1 (PCR) (Not Detect) Parainfluenza 2 (PCR) (Not Detect) Parainfluenza 3 (PCR) (Not Detect) Parainfluenza 4 (PCR) (Not Detect) RSV (PCR) (Not Detect) Entero/Rhino (PCR) (Not Detect) 06/04/21 06/04/21 06/04/21 Range/Units 12:30 12:35 12:35 WBC (4.5-11.0) X10^3/uL RBC (4.0-5.2) X10^6/uL Hgb (12.0-16.0) g/dL Hct (36-46) % MCV (80-100) fL MCH (26-34) PG MCHC (30-36) % RDW (11.6-14.8) % Plt Count (150-400) X10^3/uL Neut % (Auto) (50-75) % Lymph % (Auto) (25-40) % [place] % (Auto) (3-14) % Eos % (Auto) (2-4) % Baso % (Auto) (0-2) % Neut # (Auto) (1880-2753) /uL Lymph # (Auto) (7382-1614) /uL [place] # (Auto) (0-900) /uL Eos # (Auto) (0-450) /uL Baso # (Auto) (0-100) /uL Sodium (137-145) mmol/L Potassium (3.4-5.1) mmol/L Chloride (98-107) mmol/L Carbon Dioxide (22-32) mmol/L BUN (7-17) mg/dL Creatinine (0.52-1.04) mg/dL Estimated GFR (>60) mL/min BUN/Creatinine Ratio (6-22) Glucose (80-110) mg/dL Lactate (0.7-2.1) mmol/L Calcium (8.4-10.2) mg/dL Total Bilirubin (0.2-1.3) mg/dL AST (14-36) IU/L ALT (<35) IU/L Alkaline Phosphatase (38-126) U/L Total Creatine Kinase 104 (30-135) U/L CK-MB (CK-2) 1.43 (<2.37) ng/mL CK-MB (CK-2) Rel Index 1.4 L (1.5-5.0) % Troponin I < 0.012 (0.01-0.034) ng/mL NT-Pro-B Natriuret Pep (<125) pg/mL Total Protein (6.3-8.2) g/dL Albumin (3.5-5.0) g/dL Globulin (1.7-4.1) g/dL Albumin/Globulin Ratio (1.0-2.8) Chlamy pneumoniae PCR Not detected (Not Detect) Adenovirus (PCR) Not detected (Not Detect) B. pertussis DNA (PCR) Not detected (Not Detecte) B.parapertussis DNA PCR Not detected (Not Detecte) Coronavirus OC43 (PCR) Not detected (Not Detect) Coronavirus HKU1 (PCR) Not detected (Not Detect) Coronavirus 229E (PCR) Not detected (Not Detect) SARS-CoV-2 (PCR) Not detected Negative (Not Detecte) Coronavirus NL63 (PCR) Not detected (Not Detect) Human Metapneumovir PCR Not detected (Not Detect) Influenza Type A (PCR) Not detected (Not Detect) Influenza Type B (PCR) Not detected (Not Detect) M. pneumoniae (PCR) Not detected (Not Detect) Parainfluenza 1 (PCR) Not detected (Not Detect) Parainfluenza 2 (PCR) Not detected (Not Detect) Parainfluenza 3 (PCR) Not detected (Not Detect) Parainfluenza 4 (PCR) Not detected (Not Detect) RSV (PCR) Not detected (Not Detect) Entero/Rhino (PCR) Not detected (Not Detect) Imaging Data Chest x-ray: Radiologist's Impression: FINDINGS:? ? Surgical changes and devices:? None.? ? Lungs and pleura:? Lungs are clear.? No pleural effusions or pneumothorax.? ? Mediastinum:? Heart size is enlarged.? Mild vascular congestion noted.? Left basilar atelectasis and infiltrate.? Low lung volumes accentuate pulmonary interstitium and heart size. ? Bones and chest wall:? No suspicious bony lesions.? Overlying soft tissues appear unremarkable.? ? IMPRESSION:? ? Cardiomegaly, mild vascular congestion and left basilar atelectasis and infiltrate ? ? Dictated by: Carlton Ashley M.D. on 06/04/2021 at 11:46 ? ? ECG Data Interpretation: Sinus rhythm at a rate of 113 Normal intervals, leftward axis No acute ischemia MDM Narrative Medical decision making narrative: 65-year-old woman with a history of asthma has been worsening over the last 4 days with moderate to significant respiratory distress on arrival in the emergency department. No evidence of bacterial pneumonia, sepsis, STEMI or acute coronary syndrome, congestive heart failure. She does have mildly decreased potassium. She was diagnosed with COVID in February of this year. COVID is negative at this time and remainder of respiratory panel is pending. She states she is taking torsemide and believes that is 10 mEq of potassium daily likely the explanation for her mild hypokalemia. She is not currently having any nausea but is relatively anxious and has requested some Ativan. Will also replace her potassium orally. Care is reviewed with the patient who is comfortable with brief admission. Care is reviewed with Dr. Contrears, hospitalist who accepts care. She is safe for transfer to the floor Discharge Plan Departure Patient Disposition: Admitted as Observation Clinical Impression: CHF (congestive heart failure), Acute hypokalemia, Hypoxia, Acute asthma exacerbation Prescriptions: No Action Spiriva with HandiHaler 18 mcg capsule, w/inhalation device 1 cap inhalation DAILY 0RF Rx Instructions: puncture 1 cap using device; one dose = 2 inhalations pramipexole 0.75 mg tablet 0.75 mg PO DAILY 0RF ibuprofen 200 mg tablet 200 mg PO Q6H PRN0RF gabapentin 600 mg tablet 600 mg PO TID 0RF acetaminophen 500 mg capsule 500 mg PO Q6H PRN0RF Trintellix 20 mg tablet 20 mg PO DAILY Qty: 30 5RF mirtazapine 7.5 mg tablet 7.5 mg PO BEDTIME PRN (Reason: sleep) Qty: 30 2RF Hold Instructions: not currently taking valsartan 40 mg tablet 20 mg PO BID 0RF metoprolol succinate 25 mg tablet extended release 24 hr 25 mg PO BID 0RF quetiapine 25 mg tablet See Rx Instructions PO BID Qty: 75 0RF Rx Instructions: (12.5mg) 1/2 pill each morning; increase bedtime dose to (50mg) 2 pills at night diazepam 5 mg tablet 5 mg PO BID Qty: 60 1RF potassium chloride 20 mEq tablet extended release 10 meq PO DAILY PRN (Reason: Take w/lasix) 0RF Rx Instructions: Take w/lasix prn fluticasone propionate 50 mcg/actuation spray,suspension 1 spray intranasal BID 0RF Rx Instructions: administer into each nostril methocarbamol 750 mg tablet 750 mg PO TID PRN (Reason: Spasms) Qty: 90 3RF Rx Instructions: PRN epinephrine 0.3 mg/0.3 mL auto-injector 0.3 mg IM ONCE PRN (Reason: Allergic Reaction) Qty: 1 11RF montelukast 10 mg tablet See Rx Instructions .ROUTE .COMPLEX Qty: 90 0RF Dose Instruction: TAKE 1 TABLET BY MOUTH AT BEDTIME NEEDED FOR ALLERGY SYMPTOMS Rx Instructions: TAKE 1 TABLET BY MOUTH AT BEDTIME NEEDED FOR ALLERGY SYMPTOMS sumatriptan succinate 100 mg tablet 100 mg PO ONCE PRN (Reason: migraine headache) Qty: 14 3RF Rx Instructions: take at onset, may repeat in 2 hours if no relief, max daily dose 2 tabs lidocaine 5 % Ointment 1 applic TOPICAL TID PRN (Reason: pain) 0RF ketotifen fumarate [Zaditor] 0.025 % (0.035 %) Drops 1 drp OPHTHALMIC (EYE) BID 0RF furosemide 40 mg tablet 40 mg PO DAILY PRN (Reason: edema) Qty: 30 0RF Rx Instructions: Take 1 tablet daily as needed for edema methylprednisolone 4 mg tablet 4 mg PO DAILY Qty: 5 0RF famotidine [Pepcid] 20 mg tablet 20 mg PO BID Qty: 10 0RF doxycycline hyclate 100 mg capsule 100 mg PO BID Qty: 4 0RF sennosides [senna] 8.6 mg Tablet 17.2 mg PO BEDTIME PRN (Reason: Constipation) 0RF diphenhydramine HCl [Benadryl] 25 mg Capsule 75 mg PO DAILY PRN (Reason: Allergy Symptoms) 0RF omeprazole 40 mg Capsule,Delayed Release(Dr/Ec) 40 mg PO BID 0RF ondansetron 8 mg Tablet,Disintegrating 8 mg PO Q8H PRN (Reason: Nausea) 0RF furosemide [Lasix] 20 mg tablet 20 mg PO DAILY Qty: 3 0RF Referrals: Maxim Parks MD [Primary Care Provider] -
[2021-06-04 12:37] LABS: Add Manual Diff / Slide Review NO; Basophils Absolute Auto 100 /uL (0-100); Basophils Percent Auto 1.1 % (0-2); Eosinophils Absolute Auto 200 /uL (0-450); Eosinophils Percent Auto 2.7 % (2-4); Hematocrit 34.4 % (36-46); Hemoglobin 11.8 g/dL (12.0-16.0); Lymphocytes Absolute Auto 1700 /uL (1100-4500); Lymphocytes Percent Auto 21.6 % (25-40); Mean Corpuscular HGB Conc 34.2 % (30-36); Mean Corpuscular Volume 81.9 fL (80-100); Monocytes Absolute Auto 700 /uL (0-900); Monocytes Percent Auto 9.4 % (3-14); Neutrophils Absolute Auto 5100 /uL (1500-7000); Neutrophils Percent Auto 65.2 % (50-75); Platelet Count 287 X10^3/uL (150-400); Red Cell Distribution Width 16.2 % (11.6-14.8); White Blood Cell Count 7.8 X10^3/uL (4.5-11.0)
[2021-06-04 12:52] LABS: Creatine Kinase 104 U/L (30-135)
[2021-06-04 12:54] LABS: Alanine Aminotransferase 24 IU/L (<35); Albumin 4.4 g/dL (3.5-5.0); Albumin Globulin Ratio 1.4 (1.0-2.8); Alkaline Phosphatase 108 U/L (38-126); Aspartate Aminotransferase 33 IU/L (14-36); BUN Creatinine Ratio 30.9 (6-22); Bilirubin Total 0.3 mg/dL (0.2-1.3); Blood Urea Nitrogen 29 mg/dL (7-17); Calcium 9.1 mg/dL (8.4-10.2); Carbon Dioxide 34 mmol/L (22-32); Chloride 98 mmol/L (98-107); Estimated Glomerular Filt Rate > 60 mL/min (>60); Globulin 3.1 g/dL (1.7-4.1); Glucose 139 mg/dL (80-110); HEMOLYSIS < 15 (0-50); Lactate (Lactic Acid) 1.6 mmol/L (0.7-2.1); Potassium 2.9 mmol/L (3.4-5.1); Sodium 139 mmol/L (137-145); Total Protein 7.5 g/dL (6.3-8.2)
[2021-06-04] MEDS: ALBUTEROL/IPRATROPIUM 3 ML AMPUL INH (12:59)
[2021-06-04] MEDS: methylPREDNISolone 125 MG/2 ML VIAL IV (13:00)
[2021-06-04 13:01] LABS: NT-proBNP (BNP-Adult 18+) 27 pg/mL (<125)
[2021-06-04] MEDS: SODIUM CHLORIDE 0.9% 1,000 ML 1000 ML IV (13:01)
[2021-06-04] MEDS: MAGNESIUM SULFATE 2 GM/50 ML PIGGYBACK IV (13:03)
[2021-06-04 13:04] LABS: Troponin I < 0.012 ng/mL (0.01-0.034)
[2021-06-04 13:08] LABS: CKMB % Relative Index 1.4 % (1.5-5.0); Creatine Kinase MB 1.43 ng/mL (<2.37)
[2021-06-04 13:09] LABS: COVID19 -Nasal RAPID Negative (Negative)
[2021-06-04 13:41] LABS: Adenovirus Not Detected (Not Detect); B. parapertussis Not Detected (Not Detecte); Bordetella pertussis Not Detected (Not Detecte); Chlamydophila pneumoniae Not Detected (Not Detect); Coronavirus 229E Not Detected (Not Detect); Coronavirus HKU1 Not Detected (Not Detect); Coronavirus NL 63 Not Detected (Not Detect); Coronavirus OC43 Not Detected (Not Detect); Human Metapneumovirus Not Detected (Not Detect); Human Rhinovirus/Enterovirus Not Detected (Not Detect); Influenza A Not Detected (Not Detect); Influenza B Not Detected (Not Detect); Mycoplasma pneumoniae Not Detected (Not Detect); Parainfluenza Virus 1 Not Detected (Not Detect); Parainfluenza Virus 2 Not Detected (Not Detect); Parainfluenza Virus 3 Not Detected (Not Detect); Parainfluenza Virus 4 Not Detected (Not Detect); Respiratory Syncytial Virus Not Detected (Not Detect); SARS- CoV-2 Not Detected (Not Detecte)
[2021-06-04] MEDS: POTASSIUM CHLORIDE 20 MEQ TAB 40 MEQ PO (14:08)
[2021-06-04] MEDS: LORazepam 2 MG/ML INJ 0.5 MG IV (14:08)
[2021-06-04] MEDS: LORazepam 0.5 MG TABLET PO (16:43)
--- NOTE | 2021-06-04 17:05 | P.HP_ITS ---
History of Present Illness History of Present Illness Date Patient Seen: 06/04/21 Time Patient Seen: 17:05 Chief complaint: Trouble breathing Narrative: Patient is a 64-year-old female with history of chronic asthma, migraine, fibromyalgia, anxiety and depression who presents with shortness of breath for the past day. She also reports increase in sputum production and a color change from white to yellow. She denies any nasal congestion, runny nose, fever, sick contacts. She reports using multiple inhalers at home without significant improvement in her shortness of breath and she decided to come to the emergency room. She denied any chest pain or palpitations, nausea, vomiting, lower extremity edema, abdominal pain, dysuria, urinary frequency. In the emergency room, the patient was mildly hypoxic in the upper 80s on room air and improved with minimal supplemental oxygen. She was also quite tachypneic but the remainder of her vital signs were unremarkable. She was given multiple nebulizer therapies, methylprednisolone with improvement in her breathing. She was admitted for further management of asthma exacerbation. Patient History Medical History Anemia Anxiety Asthma Chronic back pain Chronic cough Depression Femur fracture, left Fibromyalgia Fractures GERD (gastroesophageal reflux disease) Hiatal hernia Recurrent sinusitis Venous insufficiency (chronic) (peripheral) Surgical History Anesthesia History of eye surgery (~1973) History of foot surgery History of hysterectomy (~1979) History of shoulder surgery (~2011) History of tonsillectomy (~1975) Hx of bilateral cataract extraction Family & Social History Family History Mother Heart disease Sister Heart disease Social History: household members none lives independently Yes caregiver/support person Yes: 3 afternoons per week Safety & Behavioral: Feels Safe in Current Yes Environment Been Physically Hurt or No Threatened By a Person Suicidal Ideation Description None Suicide Plan Description No Plan Tobacco & Substance use: Smoking Status Never smoker alcohol intake never alcohol intake frequency holiday/special occasion Substance Use Type does not use Meds Home Medications and Allergies Home Medications Medication Instructions Recorded Confirmed Type sennosides 8.6 mg tablet (senna) 17.2 mg PO BEDTIME PRN 09/20/18 06/04/21 History potassium chloride 20 mEq 10 meq PO DAILY PRN 10/29/18 06/04/21 History tablet,extended release methocarbamol 750 mg tablet 750 mg PO TID PRN #90 tab 09/29/19 06/04/21 Rx diphenhydramine HCl 25 mg capsule 75 mg PO DAILY PRN 10/26/19 06/04/21 History (Benadryl) epinephrine 0.3 mg/0.3 mL 0.3 mg (0.3 mL) IM ONCE PRN #1 ea 01/01/20 06/04/21 Rx injection, auto-injector omeprazole 40 mg capsule,delayed 40 mg PO BID 02/10/20 06/04/21 History release sumatriptan succinate 100 mg tablet 100 mg PO ONCE PRN #14 tab 02/23/20 06/04/21 Rx lidocaine 5 % topical ointment 1 applic TOPICAL TID PRN 02/24/20 06/04/21 Hist ory ketotifen fumarate 0.025 % (0.035 1 drp OPHTHALMIC (EYE) BID 03/02/20 06/04/21 History %) eye drops (Zaditor) fluticasone propionate 50 1 spray INTRANASAL BID 04/02/20 06/04/21 History mcg/actuation nasal spray,suspension ondansetron 8 mg disintegrating 8 mg PO Q8H PRN 06/29/20 06/04/21 History tablet methylprednisolone 4 mg tablet 4 mg PO DAILY #5 tab 01/12/21 06/04/21 Rx metoprolol succinate 25 mg 25 mg PO BID 01/27/21 06/04/21 History tablet,extended release 24 hr valsartan 40 mg tablet 20 mg PO BID 01/27/21 06/04/21 History Trintellix 20 mg tablet 20 mg PO DAILY #30 tab NS 04/11/21 06/04/21 Rx (vortioxetine) acetaminophen 500 mg capsule 500 mg PO Q6H PRN 04/11/21 06/04/21 History gabapentin 600 mg tablet 600 mg PO TID 04/11/21 06/04/21 History ibuprofen 200 mg tablet 200 mg PO Q6H PRN 04/11/21 06/04/21 History mirtazapine 7.5 mg tablet 7.5 mg PO BEDTIME PRN #30 tab 04/11/21 06/04/21 Rx pramipexole 0.75 mg tablet 0.75 mg PO DAILY 04/11/21 06/04/21 History tiotropium bromide 18 mcg capsule 1 cap INHALATION DAILY 04/11/21 06/04/21 History with inhalation device (Spiriva with HandiHaler) montelukast 10 mg tablet See Rx Instructions .ROUTE 04/22/21 06/04/21 Rx .COMPLEX #90 tab diazepam 5 mg tablet 5 mg PO BID #60 tab 05/18/21 06/04/21 Rx quetiapine 25 mg tablet See Rx Instructions PO BID #75 tab 05/18/21 06/04/21 Rx Allergies Allergy/AdvReac Type Severity Reaction Status Date / Time Iodinated Contrast Media Allergy Severe Difficulty Verified 06/04/21 12:15 Breathing iodine Allergy Severe Difficulty Verified 06/04/21 12:15 Breathing latex Allergy Severe Rash Verified 06/04/21 12:15 morphine [MORPHINE] Allergy Severe Anaphylaxis Verified 06/04/21 12:15 Penicillins [PENICILLINS] Allergy Severe Anaphylaxis Verified 06/04/21 12:15 Sulfa (Sulfonamide Allergy Severe RASH Verified 06/04/21 12:15 Antibiotics) [SULFA (SULFONAMIDE ANTIBIOTICS)] azithromycin Allergy Intermediate Rash Verified 06/04/21 12:15 [From ZITHROMAX Z-MARILYN] cefuroxime [From Ceftin] Allergy Intermediate Rash Verified 06/04/21 12:15 sulfamethoxazole Allergy Intermediate RASH Verified 06/04/21 12:15 [From SEPTRA] trimethoprim [From SEPTRA] Allergy Intermediate RASH Verified 06/04/21 12:15 ciprofloxacin [From Cipro] Allergy Pt does Verified 06/04/21 12:15 not remember reaction Corticosteroids Allergy Swelling Verified 06/04/21 12:15 (Glucocorticoids) of Lip/Tongue/Throat cephalexin [From Keflex] AdvReac Severe Fever, Verified 06/04/21 12:15 Asthma, Tachycardia prednisone AdvReac Severe nausea and Verified 06/04/21 12:15 feels very weak, and axious verapamil AdvReac Intermediate Asthma Verified 06/04/21 12:15 symptoms zonisamide AdvReac Intermediate Asthma Verified 06/04/21 12:15 symptoms Review of Systems Review of Systems Narrative: All other systems reviewed with the patient and are negative unless otherwise stated. Exam Vital Signs (past 8 hours): - 06/04/21 11:55 06/04/21 12:04 06/04/21 12:30 Temperature 98.1 F Pulse Rate 89 84 81 Respiratory Rate 38 H 18 31 H Blood Pressure 130/71 128/93 H Pulse Oximetry 94 92 95 06/04/21 12:58 06/04/21 13:00 06/04/21 13:01 Temperature Pulse Rate 79 77 72 Respiratory Rate 35 H 38 H 28 H Blood Pressure 153/69 H 117/58 L Pulse Oximetry 95 94 96 06/04/21 13:02 06/04/21 13:25 06/04/21 13:27 Temperature Pulse Rate Respiratory Rate Blood Pressure Pulse Oximetry 95 88 L 93 06/04/21 13:30 06/04/21 14:00 06/04/21 14:01 Temperature Pulse Rate 74 91 H 83 Respiratory Rate 12 22 Blood Pressure 125/63 125/84 Pulse Oximetry 93 93 93 06/04/21 14:30 06/04/21 15:00 06/04/21 15:30 Temperature Pulse Rate 81 82 92 H Respiratory Rate 26 H 30 H 21 Blood Pressure 127/72 132/60 145/82 H Pulse Oximetry 96 94 Oxygen Delivery Method Nasal Cannula Oxygen Flow Rate 1 Narrative Exam Narrative: General:? Patient is well developed and well nourished, in no distress at this time. HEENT:? Normocephalic, atraumatic, extraocular muscles intact, oral pharynx is clear and mucous membranes are moist. Neck: supple and symmetric, trachea is midline, no cervical adenopathy. Negative for JVD Chest:? Normal AP diameter and contour without kyphoscoliosis, no tachypnea, equal chest rise bilaterally. Lungs:? CTA b/l no wheezing rhonchi or rales. Cardio:?RRR no m/r/g. Abdomen: S NT ND. No CVA tenderness. Musculoskeletal:? Muscle strength and tone are equal within normal limits, no deformity. Extremities: No edema or joint effusions. No cyanosis or clubbing. Skin:? Pale,? Warm to touch,dry and intact without rashes, ulcerations or petechiae.? Neuro:? Alert and orientated x3,? sensation to touch intact in all extremities, no gross deficits noted of cranial nerves. Psych:? Patient has a well-kept appearance, appropriate affect, mental status attitude thought context and judgment are appropriate for age. Objective ECG Impression: Normal sinus rhythm as interpreted by me Labs Result Diagrams: 06/04/21 12:30 06/04/21 12:30 Labs: Laboratory Results - last 24 hr 06/04/21 06/04/21 06/04/21 12:30 12:30 12:30 WBC 7.8 RBC 4.20 Hgb 11.8 L Hct 34.4 L MCV 81.9 MCH 28.0 MCHC 34.2 RDW 16.2 H Plt Count 287 Neut % (Auto) 65.2 Lymph % (Auto) 21.6 L [place] % (Auto) 9.4 Eos % (Auto) 2.7 Baso % (Auto) 1.1 Neut # (Auto) 5100 Lymph # (Auto) 1700 [place] # (Auto) 700 Eos # (Auto) 200 Baso # (Auto) 100 Sodium 139 Potassium 2.9 L Chloride 98 Carbon Dioxide 34 H BUN 29 H Creatinine 0.94 Estimated GFR > 60 BUN/Creatinine Ratio 30.9 H Glucose 139 H Lactate 1.6 Calcium 9.1 Total Bilirubin 0.3 AST 33 ALT 24 Alkaline Phosphatase 108 Total Creatine Kinase CK-MB (CK-2) CK-MB (CK-2) Rel Index Troponin I NT-Pro-B Natriuret Pep 27 Total Protein 7.5 Albumin 4.4 Globulin 3.1 Albumin/Globulin Ratio 1.4 Chlamy pneumoniae PCR Adenovirus (PCR) B. pertussis DNA (PCR) B.parapertussis DNA PCR Coronavirus OC43 (PCR) Coronavirus HKU1 (PCR) Coronavirus 229E (PCR) SARS-CoV-2 (PCR) Coronavirus NL63 (PCR) Human Metapneumovir PCR Influenza Type A (PCR) Influenza Type B (PCR) M. pneumoniae (PCR) Parainfluenza 1 (PCR) Parainfluenza 2 (PCR) Parainfluenza 3 (PCR) Parainfluenza 4 (PCR) RSV (PCR) Entero/Rhino (PCR) 06/04/21 06/04/21 06/04/21 12:30 12:35 12:35 WBC RBC Hgb Hct MCV MCH MCHC RDW Plt Count Neut % (Auto) Lymph % (Auto) [place] % (Auto) Eos % (Auto) Baso % (Auto) Neut # (Auto) Lymph # (Auto) [place] # (Auto) Eos # (Auto) Baso # (Auto) Sodium Potassium Chloride Carbon Dioxide BUN Creatinine Estimated GFR BUN/Creatinine Ratio Glucose Lactate Calcium Total Bilirubin AST ALT Alkaline Phosphatase Total Creatine Kinase 104 CK-MB (CK-2) 1.43 CK-MB (CK-2) Rel Index 1.4 L Troponin I < 0.012 NT-Pro-B Natriuret Pep Total Protein Albumin Globulin Albumin/Globulin Ratio Chlamy pneumoniae PCR Not detected Adenovirus (PCR) Not detected B. pertussis DNA (PCR) Not detected B.parapertussis DNA PCR Not detected Coronavirus OC43 (PCR) Not detected Coronavirus HKU1 (PCR) Not detected Coronavirus 229E (PCR) Not detected SARS-CoV-2 (PCR) Not detected Negative Coronavirus NL63 (PCR) Not detected Human Metapneumovir PCR Not detected Influenza Type A (PCR) Not detected Influenza Type B (PCR) Not detected M. pneumoniae (PCR) Not detected Parainfluenza 1 (PCR) Not detected Parainfluenza 2 (PCR) Not detected Parainfluenza 3 (PCR) Not detected Parainfluenza 4 (PCR) Not detected RSV (PCR) Not detected Entero/Rhino (PCR) Not detected Assessment & Plan Assessment & Plan narrative: 1. Acute asthma exacerbation with acute respiratory failure with hypoxia -patient reports allergy to prednisone so will continue dexamethasone, her most recent exacerbation appears to be 3 weeks ago. -will replace home medications with formulary alternatives -RT evaluation and treatment -continue to wean from oxygen, goal oxygenation is greater than 90% and no greater than 96% while on supplemental therapy. -do not suspect pneumonia at this time, will monitor off abx. 2. migraine, chronic - imitrex prn 3. fibromyalgia,chronic - continue home medications 4. anxiety and depression, chronic - continue home medications 5. Obesity, BMI 39.7, present on admission. Code: Full as discussed with the patient, surrogate decision maker is her daughter. DVT: Lovenox daily Dispo: Admitted under observation status as her stay is not expected to exceed 2 midnights I have utilized all available immediate resources to obtain, update, or review the patient's current medications. Time Spent With Patient Critical Care time: I spent a total of [] minutes of critical care time on this patient's care today; this time is exclusive of procedural time. Quality MIPS - Admit I confirm the patient?s Advance Care Plan is present, Code status is documented, Surrogate decision maker is in patient?s record [If Yes, STOP here]: Yes
[2021-06-04] MEDS: ALBUTEROL 2.5 MG/3 ML NEB (ADULT) INH ×2 (17:32→22:18)
[2021-06-04] MEDS: BUDESONIDE 0.5 MG/2 ML NEB INH (17:37)
[2021-06-04] MEDS: GABAPENTIN 600 MG TABLET PO ×2 (17:49→22:47)
[2021-06-04] MEDS: SUMAtriptan 25 MG TABLET 100 MG PO ×2 (17:49→23:32)
[2021-06-04] MEDS: VALSARTAN 80 MG TABLET 20 MG PO (21:22)
[2021-06-04] MEDS: methocarbamoL 500 MG TABLET 750 MG PO (21:23)
[2021-06-04] MEDS: PRAMIPEXOLE 0.25 MG TABLET 0.75 MG PO (22:47)
[2021-06-04] MEDS: VORTIOXETINE 20 MG 20 EACH PO (22:47)
[2021-06-04] MEDS: QUETIAPINE 25 MG TABLET 50 MG PO (22:48)
[2021-06-04] MEDS: diazePAM 5 MG TABLET PO (22:53)
[2021-06-04] MEDS: FLUTICASONE 120 SPRAY/16 GM SPRAY.SUSP NASAL (22:54)
[2021-06-04] MEDS: IBUPROFEN 400 MG TABLET 800 MG PO (22:54)
[2021-06-04] MEDS: ACETAMINOPHEN 325 MG TABLET 975 MG PO (22:54)
[2021-06-04] MEDS: METOPROLOL ER 25 MG TABLET PO (22:54)
[2021-06-04] MEDS: guaiFENesin ER 600 MG TAB PO (23:18)
[2021-06-05] VITALS (20 sets, daily range): BP systolic 122–145; BP diastolic 54–79; PULSE 68–86; RESP 16–20; TEMP 36.2–36.8; O2SAT 93–98
[2021-06-05] MEDS: MIRTAZAPINE 15 MG TABLET 7.5 MG PO ×2 (01:22→22:38)
[2021-06-05] MEDS: ALBUTEROL/IPRATROPIUM 3 ML AMPUL INH ×7 (04:15→23:02)
[2021-06-05 06:14] LABS: Add Manual Diff / Slide Review NO; Basophils Absolute Auto 100 /uL (0-100); Basophils Percent Auto 0.5 % (0-2); Eosinophils Absolute Auto 0 /uL (0-450); Hematocrit 33.3 % (36-46); Hemoglobin 11.2 g/dL (12.0-16.0); Lymphocytes Absolute Auto 1100 /uL (1100-4500); Lymphocytes Percent Auto 10.7 % (25-40); Mean Corpuscular HGB Conc 33.5 % (30-36); Mean Corpuscular Hemoglobin 27.8 PG (26-34); Monocytes Absolute Auto 500 /uL (0-900); Monocytes Percent Auto 4.8 % (3-14); Neutrophils Absolute Auto 9000 /uL (1500-7000); Platelet Count 279 X10^3/uL (150-400); Red Blood Cell Count 4.01 X10^6/uL (4.0-5.2); Red Cell Distribution Width 16.5 % (11.6-14.8); White Blood Cell Count 10.7 X10^3/uL (4.5-11.0)
[2021-06-05 06:22] LABS: BUN Creatinine Ratio 32.9 (6-22); Blood Urea Nitrogen 25 mg/dL (7-17); Calcium 9.3 mg/dL (8.4-10.2); Carbon Dioxide 26 mmol/L (22-32); Chloride 100 mmol/L (98-107); Estimated Glomerular Filt Rate > 60 mL/min (>60); Glucose 134 mg/dL (80-110); HEMOLYSIS < 15 (0-50); Potassium 3.8 mmol/L (3.4-5.1); Sodium 135 mmol/L (137-145)
--- NOTE | 2021-06-05 07:50 | DI.ECHO.S_ITS ---
[facility]---------+ [facility] +---------+ : : [address] [place] : : : : [id number] : : : : Phone: [phone]+ Echocardiogram Report + + :Name: YADIRA HAN Study Date: 06/05/2021 Height: 63 in : :[facility] ReadingLocation: Weight: 224 lb : : Gender: Female BSA: 2.0 m2 : :: 1955 Age: 65 yrs BP: 132/77 mmHg: :Reason For Study: HX CARDIOMYOPATHY, SHORTNESS OF BREATH : :Ordering Physician: CITLALI, : :KELL RODRIGUES Performed By: Honey Topete : :Referring: KELL GODWIN : + + Interpretation Summary 1) Normal left ventricular thickness, size, wall motion, and systolic function (EF 65-70%). 2) Mildly enlarged right ventricle with normal function. 3) No significant valvular abnormalities. 4) The right ventricular systolic pressure is estimated to be at least 47 mmHg based on an estimated right atrial pressure of 3 mm Hg. 5) Compared to the Echo done 02/24/2020, no significant change. Procedure: A two-dimensional transthoracic echocardiogram with color flow and Doppler was performed. The study quality was technically adequate. Comparison is made with the echocardiogram of 02/24/2020. The patient was in sinus rhythm with heart rates between 86-101 bpm during the exam. Left Ventricle: Proximal septal thickening is noted. The left ventricle is normal in size. There is normal left ventricular wall thickness. The ejection fraction is estimated to be 65-70%. Left ventricular systolic function appears normal without focal wall motion abnormalities. Right Ventricle: The right ventricle is mildly dilated. The right ventricular systolic function is normal. Atria: The left atrium is moderately dilated. The right atrium is moderately dilated. There is no Doppler evidence for an interatrial shunt. Mitral Valve: The mitral valve is normal in structure and function. There is trace mitral regurgitation. Aortic Valve: The aortic valve is trileaflet. The aortic valve opens well. There is no aortic valve stenosis. There is trace aortic regurgitation. Tricuspid Valve: The tricuspid valve is normal in structure and function. There is mild tricuspid regurgitation. The right ventricular systolic pressure is estimated to be at least 47 mmHg based on an estimated right atrial pressure of 3 mm Hg. Pulmonic Valve: The pulmonic valve leaflets are thin and pliable; valve motion is normal. There is no pulmonic valvular regurgitation. Great Vessels: The aortic root is normal size. The dimensions of the ascending aorta are normal. The IVC is of normal diameter and collapses greater than 50% with a sniff. This suggests a low right atrial pressure of 3 mm Hg. Pericardium/ Pleura There is no pericardial effusion. There is no pleural effusion. MMode/2D Measurements & Calculations LVIDd: 4.7 cm LVOT diam: 2.0 cm LVIDs: 2.7 cm Ao root diam: 3.3 cm FS: 41.9 % asc Aorta Diam: 3.5 cm IVSd: 1.2 cm Ao Arch Diam (Prox Trans): 2.9 cm LVPWd: 0.82 cm LV daniels. diameter/BSA (cm/m^2): 2.3 LV sys. diameter/BSA (cm/m^2): 1.3 LA A2 area: 21.4 cm2 RA long axis: 6.0 cm LA A4 area: 32.0 cm2 RA area: 25.2 cm2 LA length (vol): 6.7 cm RA vol: 89.3 ml LA vol: 87.2 ml RA : 44.0 ml/m2 LA vol index: 43.0 ml/m2 IVC diam: 1.5 cm RVD1 (basal): 4.4 cm RVD2 (mid): 3.9 cm TAPSE: 2.1 cm Doppler Measurements & Calculations Ao V2 max: 219.6 cm/sec LVOT Max Vic: 167.1 cm/sec Ao V2 mean: 152.9 cm/sec LV V1 max P.2 mmHg Ao max P.3 mmHg LV V1 VTI: 31.3 cm Ao mean P.6 mmHg JEREMIE(I,D): 2.5 cm2 Ao V2 VTI: 38.8 cm JEREMIE(V,D): 2.4 cm2 sev ratio: 0.81 JEREMIE indexed to BSA (cm^2/m^2): 1.2 MV E max vic: 105.5 cm/sec TR max vic: 331.8 cm/sec MV A max vic: 115.0 cm/sec TR max P.0 mmHg MV E/A: 0.92 PA V2 max: 151.2 cm/sec Med Peak E' Vic: 7.2 cm/sec PA V2 mean: 94.9 cm/sec E/E' med: 14.6 PA mean P.2 mmHg Lat Peak E' Vic: 9.3 cm/sec PA pr(Accel): 45.6 mmHg E/E' lat: 11.4 E/e' average: 13.0 MV dec time: 0.24 sec SV(OT): 97.9 ml Reading Physician:01:20 PM
[2021-06-05] MEDS: BUDESONIDE 0.5 MG/2 ML NEB INH ×2 (08:35→19:57)
[2021-06-05] MEDS: diazePAM 5 MG TABLET PO ×2 (09:00→20:12)
[2021-06-05] MEDS: ENOXAPARIN 40 MG/0.4 ML SYRINGE SUBCUT (09:00)
[2021-06-05] MEDS: guaiFENesin ER 600 MG TAB PO ×2 (09:00→20:12)
[2021-06-05] MEDS: METOPROLOL ER 25 MG TABLET PO ×2 (09:00→20:12)
[2021-06-05] MEDS: FLUTICASONE 120 SPRAY/16 GM SPRAY.SUSP NASAL ×2 (09:00→20:17)
[2021-06-05] MEDS: SUMAtriptan 25 MG TABLET 100 MG PO (09:00)
[2021-06-05] MEDS: GABAPENTIN 600 MG TABLET PO ×3 (09:00→20:18)
[2021-06-05] MEDS: VALSARTAN 80 MG TABLET 20 MG PO ×2 (09:00→20:16)
[2021-06-05] MEDS: QUETIAPINE 25 MG TABLET 12.5 MG PO ×2 (09:00→20:12)
[2021-06-05] MEDS: dexAMETHasone 4 MG TABLET PO (09:00)
[2021-06-05] MEDS: OLOPATADINE 0.1% OPHTH DROPS 5 ML 1 DROPS EYE-BOTH ×2 (09:00→20:17)
[2021-06-05] MEDS: diphenhydrAMINE 25 MG TABLET 75 MG PO (09:00)
[2021-06-05] MEDS: PANTOPRAZOLE DR 40 MG TABLET PO ×2 (09:25→20:18)
[2021-06-05] MEDS: methocarbamoL 500 MG TABLET 750 MG PO (10:56)
[2021-06-05] MEDS: FUROSEMIDE 40 MG/4 ML VIAL IV (11:00)
--- NOTE | 2021-06-05 12:27 | CM.DANOTE ---
DCP: Case received, EMR reviewed and met with patient. Introduced self and role. Was able to obtain information regarding patient's baseline activity status at home prior to hospitalization. DCP assessment completed with information currently available. Patient is a 65 year old female who admitted yesterday afternoon to the care of the hospitalist team. PCP: Dr. Parks Payer: confirmed: [employer]. Patient came to the hospital via private vehicle secondary to increased shortness of breath. Patient had complained of increase in sputum production, and the use of multiple inhalers with minimal effect. Patient had noted hypoxia, in the ER, and was improved with oxygen. Patient holds diagnosis of acute asthma exacerbation. Met with patient in her room. She is alert and oriented, and was sitting up in bed. Patient indicated, she was starting to have migraine. She was given medication for this. Confirmed that she resides alone here in [place]. She has a local daughter, Maritza. She is independent at her baseline. Her current provider is in [place]. She is trying to get back to [facility], she has been in contact with senior escrow officer. P: DCP to continue to follow for any needs. Patient should be able to go home when she is deemed medically stable. Lily Cárdenas RN/Medical Customer Service Representative Discharge Planning/Care Management Advanced directive, confirm from FAMILY Start: 06/04/21 16:52 Freq: Q24H Status: Active Protocol: Document 06/04/21 16:52 HCW (Rec: 06/04/21 18:03 HCW [id number]) Advance Directive, confirm on record Time 18:03 Person contacted patient Copy received No CM Discharge Assessment Start: 06/05/21 12:26 Freq: Status: Active Protocol: Document 06/05/21 12:26 (Rec: 06/05/21 12:27 [id number]) Discharge Planning Assessment Assigned Deodorizer Operator Lily Cárdenas RN/Medical Customer Service Representative Advance Directives? No Advance Directives on File No History Provided By Patient,Medical Record Prior Living Arrangements House Household Members none Type of transporation used prior to Drives own vehicle admit Independent with ADL's Yes Is patient alert and oriented? Yes Caregiver for Another No Barriers to Discharge No Discharge Plan Home Transportation Arrangement Family Referrals Initiated None needed Whiteboard Updated in Patient Room with Yes name and ext. # of Deodorizer Operator Review Status In Process Next Review Type Continued Stay Review
--- NOTE | 2021-06-05 14:50 | PC.NURSE ---
Pt AOx4. VS stable. Pt concerned about her medications as to whether they were the exact (brand) of medication she takes at home, and if these medications could be on the same schedule she has at home. These medications were addressed this morning with Dr. Contreras and the appropriate changes were made. She was okay to take her medications after this conversation. Pt removed IV per the retail shift supervisor nurse. The pt was resistant to the insertion of a new IV. I mentioned that she did have IV lasix scheduled. She then stated that she was okay with a new IV if it was necessary for her meds. This afternoon, Agata assisted and gave the pt a new IV to administer the Lasix prescribed. Pt removed the IV after her shower today before her second dose of Lasix at 1700. She also stated that she would likely remove a new IV if it was placed in a spot that she felt uncomfortable with it. After two unsuccessful IV attempts, pt expressed anger and frustration about the IV insertion. Dr. Contreras was notified and pt was put on oral Lasix. Pt is currently sleeping. Bed in low position, call light within reach.
--- NOTE | 2021-06-05 15:02 | P.PN_ITS ---
Subjective Subjective Date Patient Seen: 06/05/21 Interval history: 65 F admitted with probable asthma exacerbation. Now improved but requiring small amount of oxygen still and remains quite dyspnic with minimal exertion. Denies chest pain, fever, chills, nausea, vomiting. Headache is improved today. She intentionally keeps removing her IV line. Exam Vital Signs (past 8 hours): - 06/05/21 08:36 06/05/21 09:00 06/05/21 10:56 Temperature 98.1 F Pulse Rate 68 85 85 Respiratory Rate 16 19 Blood Pressure 124/65 124/65 Pulse Oximetry 96 95 06/05/21 12:00 Temperature Pulse Rate 75 Respiratory Rate 20 Blood Pressure Pulse Oximetry 98 Oxygen Delivery Method Nasal Cannula Oxygen Flow Rate 2 Narrative Exam Narrative: General:? Patient is well developed and well nourished, in no distress at this time. HEENT:? Normocephalic, atraumatic, extraocular muscles intact, oral pharynx is clear and mucous membranes are moist. Neck: supple and symmetric, trachea is midline, no cervical adenopathy. Negative for JVD Chest:? Normal AP diameter and contour without kyphoscoliosis, no tachypnea, equal chest rise bilaterally. Lungs:? Bibasilar rales, no wheezing. Cardio:?RRR no m/r/g. Abdomen: S NT ND. No CVA tenderness. Musculoskeletal:? Muscle strength and tone are equal within normal limits, no deformity. Extremities: Trace pedal edema. No joint effusions. No cyanosis or clubbing. Skin:? Pale,? Warm to touch,dry and intact without rashes, ulcerations or petechiae.? Neuro:? Alert and orientated x3,? sensation to touch intact in all extremities, no gross deficits noted of cranial nerves. Psych:? Patient has a well-kept appearance, appropriate affect, mental status attitude thought context and judgment are appropriate for age. Objective Labs Result Diagrams: 06/05/21 05:51 06/05/21 05:51 Labs: Laboratory Results - last 24 hr 06/05/21 06/05/21 05:51 05:51 WBC 10.7 RBC 4.01 Hgb 11.2 L Hct 33.3 L MCV 83.0 MCH 27.8 MCHC 33.5 RDW 16.5 H Plt Count 279 Neut % (Auto) 84.0 H Lymph % (Auto) 10.7 L [place] % (Auto) 4.8 Eos % (Auto) 0.0 L Baso % (Auto) 0.5 Neut # (Auto) 9000 H Lymph # (Auto) 1100 [place] # (Auto) 500 Eos # (Auto) 0 Baso # (Auto) 100 Sodium 135 L Potassium 3.8 Chloride 100 Carbon Dioxide 26 BUN 25 H Creatinine 0.76 Estimated GFR > 60 BUN/Creatinine Ratio 32.9 H Glucose 134 H Calcium 9.3 PFSH Medical History Anemia Anxiety Asthma Chronic back pain Chronic cough Depression Femur fracture, left Fibromyalgia Fractures GERD (gastroesophageal reflux disease) Hiatal hernia Recurrent sinusitis Venous insufficiency (chronic) (peripheral) Surgical History Anesthesia History of eye surgery (~1973) History of foot surgery History of hysterectomy (~1979) History of shoulder surgery (~2011) History of tonsillectomy (~1975) Hx of bilateral cataract extraction Family History Mother Heart disease Sister Heart disease Social History marital status: number of children: 1 household members: none lives independently: Yes caregiver/support person: Yes (3 afternoons per week) pets and animals: Yes occupational status: disabled Smoking Status: Never smoker alcohol intake: never substance use type: does not use Assessment & Plan Assessment & Plan narrative: 1. Acute asthma exacerbation with acute respiratory failure with hypoxia ?-patient reports allergy to prednisone so will continue dexamethasone, her most recent exacerbation appears to be 3 weeks ago. ?-will replace home medications with formulary alternatives ?-RT evaluation and treatment ?-continue to wean from oxygen, goal oxygenation is greater than 90% and no greater than 96% while on supplemental therapy. ?-do not suspect pneumonia at this time, will monitor off abx. 2. Probable acute on chronic diastolic heart failure - planned for IV lasix BID today, patient kept pulling out IV lines. Rather than keep replacing these trial PO furosemide 80 mg BID. - TTE with normal EF, no significant change from prior. 2. migraine, chronic ?- imitrex prn 3. fibromyalgia,chronic ?- continue home medications 4. anxiety and depression, chronic ?- continue home medications 5. Obesity, BMI 39.7, present on admission. Code:? Full as discussed with the patient, surrogate decision maker is her daughter. DVT:? Lovenox daily Dispo:? probable discharge home in the next 1-2 days when improvement in oxygen and dyspnea. Time Spent With Patient Critical Care time: I spent a total of [] minutes of critical care time on this patient's care today; this time is exclusive of procedural time.
[2021-06-05] MEDS: FUROSEMIDE 40 MG TABLET 80 MG PO (17:26)
[2021-06-05] MEDS: PRAMIPEXOLE 0.25 MG TABLET 0.75 MG PO (20:13)
[2021-06-05] MEDS: QUETIAPINE 25 MG TABLET 50 MG PO (20:16)
[2021-06-05] MEDS: MELATONIN 3 MG TABLET 6 MG PO (21:34)
[2021-06-05] MEDS: VORTIOXETINE 20 MG 20 EACH PO (22:04)
--- NOTE | 2021-06-05 22:14 | PC.NURSE ---
Patient became distraught when informed their 2100 dose of Trintellix was not immediately available resulting in a thrown ceramic cup and locking themselves in the bathroom. Pharmacy called in to retrieve medication which was promptly administered. Patient education provided on appropriate means of expressing wants and needs. Currently tearful with a blanket over their head. Will continue to monitor closely.
[2021-06-06] VITALS (7 sets, daily range): BP systolic 104–124; BP diastolic 54–72; PULSE 61–77; RESP 18–19; TEMP 36.7–36.8; O2SAT 93–96
[2021-06-06] MEDS: ALBUTEROL/IPRATROPIUM 3 ML AMPUL INH ×3 (02:58→11:47)
[2021-06-06 04:56] LABS: Add Manual Diff / Slide Review NO; Basophils Absolute Auto 0 /uL (0-100); Basophils Percent Auto 0.5 % (0-2); Eosinophils Absolute Auto 0 /uL (0-450); Eosinophils Percent Auto 0.1 % (2-4); Hematocrit 29.9 % (36-46); Hemoglobin 10.1 g/dL (12.0-16.0); Lymphocytes Absolute Auto 2200 /uL (1100-4500); Lymphocytes Percent Auto 21.4 % (25-40); Mean Corpuscular HGB Conc 33.7 % (30-36); Mean Corpuscular Hemoglobin 28.1 PG (26-34); Mean Corpuscular Volume 83.4 fL (80-100); Monocytes Absolute Auto 800 /uL (0-900); Monocytes Percent Auto 7.4 % (3-14); Neutrophils Absolute Auto 7300 /uL (1500-7000); Neutrophils Percent Auto 70.6 % (50-75); Platelet Count 261 X10^3/uL (150-400); Red Blood Cell Count 3.58 X10^6/uL (4.0-5.2); Red Cell Distribution Width 17.1 % (11.6-14.8); White Blood Cell Count 10.3 X10^3/uL (4.5-11.0)
[2021-06-06] MEDS: ACETAMINOPHEN 325 MG TABLET 975 MG PO (05:11)
[2021-06-06] MEDS: IBUPROFEN 400 MG TABLET 800 MG PO (05:11)
[2021-06-06] MEDS: methocarbamoL 500 MG TABLET 750 MG PO (05:11)
[2021-06-06 05:17] LABS: BUN Creatinine Ratio 34.1 (6-22); Blood Urea Nitrogen 28 mg/dL (7-17); Calcium 8.8 mg/dL (8.4-10.2); Carbon Dioxide 30 mmol/L (22-32); Chloride 99 mmol/L (98-107); Estimated Glomerular Filt Rate > 60 mL/min (>60); Glucose 110 mg/dL (80-110); HEMOLYSIS < 15 (0-50); Potassium 3.2 mmol/L (3.4-5.1); Sodium 136 mmol/L (137-145)
[2021-06-06] MEDS: SUMAtriptan 25 MG TABLET 100 MG PO (06:13)
[2021-06-06] MEDS: BUDESONIDE 0.5 MG/2 ML NEB INH (07:58)
[2021-06-06] MEDS: FUROSEMIDE 40 MG TABLET 80 MG PO (08:25)
[2021-06-06] MEDS: PANTOPRAZOLE DR 40 MG TABLET PO (08:50)
[2021-06-06] MEDS: METOPROLOL ER 25 MG TABLET PO (08:51)
[2021-06-06] MEDS: guaiFENesin ER 600 MG TAB PO (08:51)
[2021-06-06] MEDS: dexAMETHasone 4 MG TABLET PO (08:52)
[2021-06-06] MEDS: GABAPENTIN 600 MG TABLET PO (08:53)
[2021-06-06] MEDS: diazePAM 5 MG TABLET PO (08:53)
[2021-06-06] MEDS: FLUTICASONE 120 SPRAY/16 GM SPRAY.SUSP NASAL (08:54)
[2021-06-06] MEDS: ENOXAPARIN 40 MG/0.4 ML SYRINGE SUBCUT (08:57)
[2021-06-06] MEDS: QUETIAPINE 25 MG TABLET 12.5 MG PO (09:01)
[2021-06-06] MEDS: OLOPATADINE 0.1% OPHTH DROPS 5 ML 1 DROPS EYE-BOTH (10:23)
[2021-06-06] MEDS: VALSARTAN 80 MG TABLET 20 MG PO (10:23)
[2021-06-06] MEDS: OXYCODONE IR 5 MG TABLET PO (10:25)
[2021-06-06] MEDS: POTASSIUM CHLORIDE 20 MEQ TAB 40 MEQ PO (10:25)
--- NOTE | 2021-06-06 10:44 | P.DS_ITS ---
History of Present Illness History of Present Illness Date Patient Seen: 06/06/21 Time Patient Seen: 10:44 Chief complaint: Trouble breathing Narrative: Patient is a 64-year-old female with history of chronic asthma, migraine, fibromyalgia, anxiety and depression who presents with shortness of breath for the past day. She also reports increase in sputum production and a color change from white to yellow. She denies any nasal congestion, runny nose, fever, sick contacts. She reports using multiple inhalers at home without significant improvement in her shortness of breath and she decided to come to the emergency room. She denied any chest pain or palpitations, nausea, vomiting, lower extremity edema, abdominal pain, dysuria, urinary frequency. In the emergency room, the patient was mildly hypoxic in the upper 80s on room air and improved with minimal supplemental oxygen. She was also quite tachypneic but the remainder of her vital signs were unremarkable. She was given multiple nebulizer therapies, methylprednisolone with improvement in her breathing. She was admitted for further management of asthma exacerbation. Discharge Providers Provider Date of admission: 06/05/21 09:50 Discharge Date: 06/06/21 Primary care physician: Maxim Parks MD Consults: 06/04/21 16:52 Consult to Respiratory Therapy Evaluate & Treat Comment: Physician Instructions: Evaluate and treat 06/05/21 23:00 Consult to Pastoral Services Routine Comment: Patient request Discharge provider: Rom Contreras DO Summary Hospital Course Discharge Diagnosis: 1. Acute asthma exacerbation with acute respiratory failure with hypoxia 2. acute on chronic diastolic heart failure 2. migraine, chronic 3. fibromyalgia,chronic 4. anxiety and depression, chronic 5. Obesity, BMI 39.7, present on admission. Hospital Course: Patient is a 64-year-old female with history of chronic asthma, migraine, fibromyalgia, anxiety and depression who presented with shortness of breath and was admitted for an acute asthma exacerbation and acute respiratory failure with hypoxia. She was started on dexamethasone therapy for her exacerbation as she reports allergy to prednisone. She remained significantly short of breath on HD#1, had some lower extremity edema and basilar crackles. She was given one dose of IV lasix, then converted to oral therapy as the patient kept removing her IV lines. Echocardiogram showed a normal ejection fraction without significant valvular pathologies. Patients obesity likely worsened her degree of respiratory failure and increases risk of complications. On HD#2 the patient had significantly improved dyspnea and was discharged home. No further furosemide was recommended as she appeared euvolemic. She will complete another couple days of dexamethasone at home. Time Spent with Patient Time spent: Greater than 30 minutes Exam Vital Signs (past 8 hours): - 06/06/21 03:00 06/06/21 03:10 06/06/21 05:00 Temperature 98.0 F Pulse Rate 67 Respiratory Rate 18 Blood Pressure 104/54 L Pulse Oximetry 94 93 95 06/06/21 07:59 06/06/21 08:00 Temperature 98.3 F Pulse Rate 61 77 Respiratory Rate 18 19 Blood Pressure 124/72 Pulse Oximetry 96 93 Oxygen Delivery Method Room Air Oxygen Flow Rate 0 Narrative Exam Narrative: General:? Patient is well developed and well nourished, in no distress at this time. HEENT:? Normocephalic, atraumatic, extraocular muscles intact, oral pharynx is clear and mucous membranes are moist. Neck: supple and symmetric, trachea is midline, no cervical adenopathy. Negative for JVD Chest:? Normal AP diameter and contour without kyphoscoliosis, no tachypnea, equal chest rise bilaterally. Lungs:? Bibasilar rales, no wheezing. Cardio:?RRR no m/r/g. Abdomen: S NT ND. No CVA tenderness. Musculoskeletal:? Muscle strength and tone are equal within normal limits, no deformity. Extremities: Trace pedal edema. No joint effusions. No cyanosis or clubbing. Skin:? Pale,? Warm to touch,dry and intact without rashes, ulcerations or petechiae.? Neuro:? Alert and orientated x3,? sensation to touch intact in all extremities, no gross deficits noted of cranial nerves. Psych:? Patient has a well-kept appearance, appropriate affect, mental status attitude thought context and judgment are appropriate for age. Objective Labs Result Diagrams: 06/06/21 04:18 06/06/21 04:18 Labs: Laboratory Results - last 24 hr 06/06/21 06/06/21 04:18 04:18 WBC 10.3 RBC 3.58 L Hgb 10.1 L Hct 29.9 L MCV 83.4 MCH 28.1 MCHC 33.7 RDW 17.1 H Plt Count 261 Neut % (Auto) 70.6 Lymph % (Auto) 21.4 L Crenshaw % (Auto) 7.4 Eos % (Auto) 0.1 L Baso % (Auto) 0.5 Neut # (Auto) 7300 H Lymph # (Auto) 2200 Crenshaw # (Auto) 800 Eos # (Auto) 0 Baso # (Auto) 0 Sodium 136 L Potassium 3.2 L Chloride 99 Carbon Dioxide 30 BUN 28 H Creatinine 0.82 Estimated GFR > 60 BUN/Creatinine Ratio 34.1 H Glucose 110 Calcium 8.8 PFSH Medical History Anemia Anxiety Asthma Chronic back pain Chronic cough Depression Femur fracture, left Fibromyalgia Fractures GERD (gastroesophageal reflux disease) Hiatal hernia Recurrent sinusitis Venous insufficiency (chronic) (peripheral) Surgical History Anesthesia History of eye surgery (~1973) History of foot surgery History of hysterectomy (~1979) History of shoulder surgery (~2011) History of tonsillectomy (~1975) Hx of bilateral cataract extraction Family History Mother Heart disease Sister Heart disease Social History marital status: number of children: 1 household members: none lives independently: Yes caregiver/support person: Yes (3 afternoons per week) pets and animals: Yes occupational status: disabled Smoking Status: Never smoker alcohol intake: never substance use type: does not use Discharge Plan Discharge Plan Patient Disposition: Home Provider Discharge Comment: You were admitted to the hospital with an asthma exacerbation. Dexamethasone added for a few more days at home. No other medication changes are recommended. Discharge orders & Medications Prescriptions: Continued Spiriva with HandiHaler 18 mcg capsule, w/inhalation device 1 cap inhalation DAILY 0RF Rx Instructions: puncture 1 cap using device; one dose = 2 inhalations pramipexole 0.75 mg tablet 0.75 mg PO DAILY 0RF ibuprofen 200 mg tablet 200 mg PO Q6H PRN (Reason: Pain (Scale Score 1-3)) 0RF gabapentin 600 mg tablet 600 mg PO TID 0RF Label Comments: 0700, 1400, 2100 acetaminophen 500 mg capsule 500 mg PO Q6H PRN (Reason: Pain (Scale Score 1-3)) 0RF Trintellix 20 mg tablet 20 mg PO DAILY Qty: 30 5RF mirtazapine 7.5 mg tablet 7.5 mg PO BEDTIME PRN (Reason: sleep) Qty: 30 2RF Hold Instructions: not currently taking valsartan 40 mg tablet 20 mg PO BID 0RF metoprolol succinate 25 mg tablet extended release 24 hr 25 mg PO BID 0RF quetiapine 25 mg tablet See Rx Instructions PO BID Qty: 75 0RF Rx Instructions: (12.5mg) 1/2 pill each morning; increase bedtime dose to (50mg) 2 pills at night diazepam 5 mg tablet 5 mg PO BID Qty: 60 1RF potassium chloride 20 mEq tablet extended release 10 meq PO DAILY PRN (Reason: Take w/lasix) 0RF Rx Instructions: Take w/lasix prn fluticasone propionate 50 mcg/actuation spray,suspension 1 spray intranasal BID 0RF Rx Instructions: administer into each nostril methocarbamol 750 mg tablet 750 mg PO TID PRN (Reason: Spasms) Qty: 90 3RF Rx Instructions: PRN epinephrine 0.3 mg/0.3 mL auto-injector 0.3 mg IM ONCE PRN (Reason: Allergic Reaction) Qty: 1 11RF montelukast 10 mg tablet See Rx Instructions .ROUTE .COMPLEX Qty: 90 0RF Dose Instruction: TAKE 1 TABLET BY MOUTH AT BEDTIME NEEDED FOR ALLERGY SYMPTOMS Rx Instructions: TAKE 1 TABLET BY MOUTH AT BEDTIME NEEDED FOR ALLERGY SYMPTOMS sumatriptan succinate 100 mg tablet 100 mg PO ONCE PRN (Reason: migraine headache) Qty: 14 3RF Rx Instructions: take at onset, may repeat in 2 hours if no relief, max daily dose 2 tabs lidocaine 5 % Ointment 1 applic TOPICAL TID PRN (Reason: pain) 0RF ketotifen fumarate [Zaditor] 0.025 % (0.035 %) Drops 1 drp OPHTHALMIC (EYE) BID 0RF sennosides [senna] 8.6 mg Tablet 17.2 mg PO BEDTIME PRN (Reason: Constipation) 0RF diphenhydramine HCl [Benadryl] 25 mg Capsule 75 mg PO DAILY PRN (Reason: Allergy Symptoms) 0RF omeprazole 40 mg Capsule,Delayed Release(Dr/Ec) 40 mg PO BID 0RF ondansetron 8 mg Tablet,Disintegrating 8 mg PO Q8H PRN (Reason: Nausea) 0RF methylprednisolone 4 mg tablet 4 mg PO DAILY 3 Days Qty: 3 0RF Follow up/Referrals: Maxim Parks MD [Primary Care Provider] - (*Appt on May @3:00pm w/ ( on leave) [phone].) Diet/Activity/Treatments Diet: Diet as Tolerated Activity: As tolerated Visit Report/Discharge Packet Instructions: DI for Asthma -- Adult Discharge Data Primary Care Provider: Maxim Parks
--- NOTE | 2021-06-06 12:18 | CM.DPC ---
DCP Discharge Home Per MD, pt is medically stable to d/c home today with no identified barriers to discharge. Per RN, pt had a difficulty night with strong emotions, crying, difficulty regulating her emotions in a productive/appropriate way with staff. But per RN, pt has been calm and cooperative today and planning to d/c home after lunch so she can get her dog back home. Epic Manager Doug arrived bedside and had been a big support to pt last night until late and has a good rapport with pt and decision made for SW not to visit pt bedside but allow Kuldip to visit as he would be available in the community for ongoing support and states relationship between pt and Dtr is strained and difficult. Per CANOE MAKER, pt has all of her stuff packed and RT just provided tx but pt complaining of some SOB and RN will monitor as likely over-exertion as well as possible anxiety. Plan: SW to follow for pt d/c home today via POV and outpt follow up and Chaplain Christiansen providing ongoing supports and resources. Reema Davis MSW
--- NOTE | 2021-06-06 13:11 | PC.NURSE ---
Patient d/c instructions reviewed and patient verbalizes understanding, denies any questions. Escorted out via wheelchair, no lines, tele has been d/c'd.
== END 2021-06-06 13:15 | disposition home or self-care (01) | DRG 202 ==
LOC: ED 14:43 → AC 14:50
PROVIDERS: Admitting Provider Internal Medicine; Emergency Provider Emergency Medicine; PCP Family Medicine; Referring Provider Emergency Medicine; Visit Provider Internal Medicine
DX: J45.901 Unspecified asthma with (acute) exacerbation (principal); J96.01 Acute respiratory failure with hypoxia; I50.33 Acute on chronic diastolic (congestive) heart failure; E66.2 Morbid (severe) obesity with alveolar hypoventilation; G43.909 Migraine, unspecified, not intractable, without status migrainosus; M79.7 Fibromyalgia; F41.9 Anxiety disorder, unspecified; E87.6 Hypokalemia; I11.0 Hypertensive heart disease with heart failure; F32.A Depression, unspecified; K21.9 Gastro-esophageal reflux disease without esophagitis; Z68.39 Body mass index [BMI] 39.0-39.9, adult; Z20.822 Contact with and (suspected) exposure to COVID-19
CPT/HCPCS: 36415; 71045; 80048; 80053; 82550; 82553; 83605; 83880; 84484; 85025; 87633; 87635; 93005; 93306; 94150; 94640; 94760; 96365; 96375; 99285; C9803; G0378; J1650; J1940; J2060; J2930; J3475; J7613

== ENCOUNTER → 2021-06-30 09:21 | Outpatient (CLI) | payer OTHER, MEDICAID, SELFPAY ==
[2021-06-04 16:30] VITALS: BMI 39.6
[2021-06-30 09:54] LABS: Add Manual Diff / Slide Review NO; Basophils Absolute Auto 100 /uL (0-100); Eosinophils Absolute Auto 300 /uL (0-450); Eosinophils Percent Auto 3.6 % (2-4); Hematocrit 34.2 % (36-46); Hemoglobin 11.4 g/dL (12.0-16.0); Lymphocytes Absolute Auto 2700 /uL (1100-4500); Lymphocytes Percent Auto 31.7 % (25-40); Mean Corpuscular HGB Conc 33.3 % (30-36); Mean Corpuscular Hemoglobin 27.5 PG (26-34); Mean Corpuscular Volume 82.6 fL (80-100); Monocytes Absolute Auto 700 /uL (0-900); Monocytes Percent Auto 8.7 % (3-14); Neutrophils Absolute Auto 4700 /uL (1500-7000); Platelet Count 309 X10^3/uL (150-400); Red Blood Cell Count 4.14 X10^6/uL (4.0-5.2); Red Cell Distribution Width 16.3 % (11.6-14.8); White Blood Cell Count 8.6 X10^3/uL (4.5-11.0)
[2021-06-30 09:59] LABS: Hemoglobin A1C% w Est Avg Glu 5.9 % (4.0-6.0)
[2021-06-30 10:10] LABS: Alanine Aminotransferase 23 IU/L (<35); Albumin 3.8 g/dL (3.5-5.0); Albumin Globulin Ratio 1.4 (1.0-2.8); Alkaline Phosphatase 106 U/L (38-126); Aspartate Aminotransferase 27 IU/L (14-36); BUN Creatinine Ratio 29.8 (6-22); Bilirubin Total 0.4 mg/dL (0.2-1.3); Blood Urea Nitrogen 31 mg/dL (7-17); Calcium 9.1 mg/dL (8.4-10.2); Carbon Dioxide 31 mmol/L (22-32); Chloride 101 mmol/L (98-107); Cholesterol 290 mg/dL (140-199); Estimated Glomerular Filt Rate 59 mL/min (>60); Globulin 2.8 g/dL (1.7-4.1); Glucose 102 mg/dL (80-110); HDL Cholesterol 72 mg/dL (40-60); HEMOLYSIS < 15 (0-50); LDL Cholesterol Calculated 192 mg/dL (<100); Potassium 3.5 mmol/L (3.4-5.1); Sodium 139 mmol/L (137-145); Total Protein 6.6 g/dL (6.3-8.2); Triglycerides 130 mg/dL (35-150)
[2021-06-30 10:36] LABS: TSH w/ Reflex to FT4 1.94 uIU/mL (0.47-4.68)
== END ==
PROVIDERS: PCP Family Medicine; Referring Provider Internal Medicine Cardiovascular Disease; Visit Provider Internal Medicine Cardiovascular Disease
DX: I10 Essential (primary) hypertension (principal); R73.9 Hyperglycemia, unspecified; E78.5 Hyperlipidemia, unspecified; I50.32 Chronic diastolic (congestive) heart failure; Z13.29 Encounter for screening for other suspected endocrine disorder
CPT/HCPCS: 36415; 80053; 80061; 83036; 84443; 85025

== ENCOUNTER 2021-07-17 23:33 | Emergency (ER) | payer OTHER, MEDICAID, SELFPAY ==
[2021-06-04 16:30] VITALS: BMI 39.6
[2021-07-17 23:44] VITALS: BP 130/73; PULSE 83; RESP 36; O2SAT 93; BMI 37.8
--- NOTE | 2021-07-18 00:48 | DI.RAD.S_ITS ---
PROCEDURE: XR ACUTE ABDOMEN SERIES INDICATIONS: cough, SOB, abdominal pain TECHNIQUE: One view chest and two views of the abdomen were acquired. COMPARISON: [facility], CR, XR CHEST 1V, 06/04/2021, 12:09. FINDINGS: Surgical changes and devices: Postsurgical changes partially visualized in the left humerus. Chest: There is pulmonary vascular prominence consistent with pulmonary edema. Heart size is enlarged. There is a large hiatal hernia. No pleural effusions. No pneumoperitoneum. Abdomen: Bowel gas pattern appears within normal limits. No suspicious calcifications. Bones: No suspicious bony lesions. IMPRESSION: 1. Bowel gas pattern appears within normal limits. 2. Pulmonary edema redemonstrated in the lungs. Dictated by: Abimael Lyon M.D. on 07/18/2021 at 2:45 Approved by: Abimael Lyon M.D. on 07/18/2021 at 2:46
--- NOTE | 2021-07-18 01:06 | PC.NURSE ---
see triage note, pt has some upper airway audible wheezing, just released from the hospital s/p surgery states she was breathing this way when she left the hospital
[2021-07-18 01:13] LABS: Add Manual Diff / Slide Review NO; Basophils Absolute Auto 100 /uL (0-100); Basophils Percent Auto 0.9 % (0-2); Eosinophils Absolute Auto 500 /uL (0-450); Hematocrit 30.7 % (36-46); Hemoglobin 10.3 g/dL (12.0-16.0); Lymphocytes Absolute Auto 3200 /uL (1100-4500); Lymphocytes Percent Auto 33.7 % (25-40); Mean Corpuscular HGB Conc 33.7 % (30-36); Mean Corpuscular Hemoglobin 27.7 PG (26-34); Mean Corpuscular Volume 82.3 fL (80-100); Monocytes Absolute Auto 800 /uL (0-900); Monocytes Percent Auto 8.2 % (3-14); Neutrophils Absolute Auto 4900 /uL (1500-7000); Neutrophils Percent Auto 52.2 % (50-75); Platelet Count 292 X10^3/uL (150-400); Red Blood Cell Count 3.73 X10^6/uL (4.0-5.2); Red Cell Distribution Width 16.2 % (11.6-14.8); White Blood Cell Count 9.4 X10^3/uL (4.5-11.0)
[2021-07-18] MEDS: PANTOPRAZOLE 40 MG VIAL IV (01:16)
[2021-07-18] MEDS: ONDANSETRON 4 MG/2 ML INJ IV (01:17)
[2021-07-18 01:23] LABS: Magnesium 1.9 mg/dL (1.6-2.3)
[2021-07-18 01:24] LABS: Alanine Aminotransferase 44 IU/L (<35); Albumin 3.8 g/dL (3.5-5.0); Albumin Globulin Ratio 1.3 (1.0-2.8); Alkaline Phosphatase 97 U/L (38-126); Aspartate Aminotransferase 59 IU/L (14-36); BUN Creatinine Ratio 21.7 (6-22); Bilirubin Total 0.2 mg/dL (0.2-1.3); Blood Urea Nitrogen 23 mg/dL (7-17); Carbon Dioxide 27 mmol/L (22-32); Chloride 105 mmol/L (98-107); Estimated Glomerular Filt Rate 58 mL/min (>60); Globulin 2.9 g/dL (1.7-4.1); Glucose 108 mg/dL (80-110); HEMOLYSIS 24 (0-50); Potassium 4.1 mmol/L (3.4-5.1); Sodium 137 mmol/L (137-145); Total Protein 6.7 g/dL (6.3-8.2)
[2021-07-18 01:40] LABS: Procalcitonin 0.07 ng/mL (<0.5)
--- NOTE | 2021-07-18 02:28 | DI.CT.S_ITS ---
PROCEDURE: CT CHEST ABD PEL W CON INDICATIONS: SOB, abdominal pain, recent hiatal hernia surgery TECHNIQUE: After the administration of intravenous contrast, 5 mm thick sections acquired from the lung apices to the symphysis. 5 mm coronal and sagittal reformats were performed, with additional 7 mm MIP reformats through the lungs. For radiation dose reduction, the following was used: automated exposure control, adjustment of mA and/or kV according to patient size. COMPARISON: [facility], CT, CT ABDOMEN PELVIS WO CON, 07/14/2020, 10:51. [facility], CT, CT ANGIO CHEST PE PROTOCOL, 09/07/2020, 13:02. [facility], CT, CT ANGIO CHEST PE PROTOCOL, 03/02/2021, 14:17. FINDINGS: Image quality: Excellent. CHEST: Lungs and pleura: Tiny right apical pulmonary nodules are stable, likely benign. No acute airspace opacities. Minimal left pleural effusion and mild left basilar atelectasis. Central and peripheral airways appear patent and normal in caliber. Mediastinum: Mild cardiomegaly. No pericardial effusion. Very mild coronary artery calcifications. No pericardial effusion. No mediastinal or hilar adenopathy by size criteria. Thoracic aorta and central pulmonary arteries are normal in size. Esophagus is normal in caliber. No hiatal hernia. Previously, there was a large hiatal hernia. There is recent postoperative appearance. There is fluid surrounding the distal esophagus, likely postsurgical in nature. There is a moderate hiatal hernia. Chest wall: No axillary or supraclavicular adenopathy by size criteria. Thyroid gland is unremarkable as visualized . ABDOMEN: Solid organs: Liver is normal in size and enhancement. Gallbladder is unremarkable . Biliary system is non dilated. Pancreas enhances normally. Spleen is normal in size and enhancement. No adrenal nodules. There is a anterior right middle pole mixed attenuation mass measuring 2.5 cm which is suspicious for a small right renal cell carcinoma. Left kidney unremarkable. No hydronephrosis. Peritoneum and bowel: Bowel loops demonstrate normal wall thickness and caliber. No free fluid or air. Nodes and vessels: No retroperitoneal or mesenteric adenopathy by size criteria. Aorta and inferior vena cava are normal in size. Miscellaneous: No ventral hernias. PELVIS: Genitourinary: Bladder wall thickness is normal. Miscellaneous: No inguinal hernias or adenopathy. Remote hysterectomy. Posterior pelvic floor relaxation with probable anterior rectocele. Bones: No suspicious bony lesions. No vertebral body compression fractures. IMPRESSION: 1. Recent hiatal hernia surgery with moderate hiatal hernia present and fluid surrounding the distal esophagus and hernia likely postsurgical in nature. 2. Minimal left pleural effusion and mild left basilar atelectasis. 3. 2.5 cm probable right renal cell carcinoma. 4. Remote hysterectomy. Posterior pelvic floor relaxation with probable anterior rectocele. Comment: Recommend further workup of 2.5 cm right renal mass, either by multiphase MRI or multiphase CT. Comment: Final report is concordant with preliminary interpretation provided by [facility]. Dictated by: Michael Serrato M.D. on 07/18/2021 at 7:51 Approved by: Michael Serrato M.D. on 07/18/2021 at 8:09
[2021-07-18] MEDS: FAMOTIDINE 20 MG/2 ML VIAL IV (02:50)
[2021-07-18] MEDS: methylPREDNISolone 125 MG/2 ML VIAL IV (02:51)
[2021-07-18] MEDS: diphenhydrAMINE 50 MG/ML VIAL 25 MG IV (02:51)
--- NOTE | 2021-07-18 04:21 | ED_ITS ---
HPI - SOB/Dyspnea General Chief Complaint: Shortness of Breath/Dyspnea Stated Complaint: SOB Time Seen by Provider: 07/17/21 23:40 Source: patient Mode of arrival: Wheelchair History of Present Illness HPI Narrative: 65-year-old female nonsmoker with history of recent hiatal hernia repair, iron deficiency anemia, anemia, depression presents with shortness of breath. She had been battling symptoms of a large hiatal hernia for quite some time and was recently repaired at [facility] in [place] and discharged earlier in the day. She states that she never really felt great but has been short of breath since being home. She denies any fever or chills. She has a poor appetite and complains of some abdominal an anterior chest discomfort. She is passing gas and has had bowel movements without difficulty. She denies any dysuria, frequency or urgency. She does have some mild wheeze but denies any cough little on hemoptysis. Related Data Home Medications Medication Instructions Recorded Confirmed sennosides 8.6 mg tablet (senna) 17.2 mg PO BEDTIME PRN 09/20/18 06/04/21 potassium chloride 20 mEq 10 meq PO DAILY PRN 10/29/18 06/04/21 tablet,extended release diphenhydramine HCl 25 mg capsule 75 mg PO DAILY PRN 10/26/19 06/04/21 (Benadryl) omeprazole 40 mg capsule,delayed 40 mg PO BID 02/10/20 06/04/21 release lidocaine 5 % topical ointment 1 applic TOPICAL TID PRN 02/24/20 06/04/21 ketotifen fumarate 0.025 % (0.035 1 drp OPHTHALMIC (EYE) BID 03/02/20 06/04/21 %) eye drops (Zaditor) fluticasone propionate 50 1 spray INTRANASAL BID 04/02/20 06/04/21 mcg/actuation nasal spray,suspension ondansetron 8 mg disintegrating 8 mg PO Q8H PRN 06/29/20 06/04/21 tablet metoprolol succinate 25 mg 25 mg PO BID 01/27/21 06/04/21 tablet,extended release 24 hr valsartan 40 mg tablet 20 mg PO BID 01/27/21 06/04/21 acetaminophen 500 mg capsule 500 mg PO Q6H PRN 04/11/21 06/04/21 gabapentin 600 mg tablet 600 mg PO TID 04/11/21 06/04/21 ibuprofen 200 mg tablet 200 mg PO Q6H PRN 04/11/21 06/04/21 pramipexole 0.75 mg tablet 0.75 mg PO DAILY 04/11/21 06/04/21 tiotropium bromide 18 mcg capsule 1 cap INHALATION DAILY 04/11/21 06/04/21 with inhalation device (Spiriva with HandiHaler) Previous Rx's Medication Instructions Recorded methocarbamol 750 mg tablet 750 mg PO TID PRN #90 tab 09/29/19 epinephrine 0.3 mg/0.3 mL 0.3 mg (0.3 mL) IM ONCE PRN #1 ea 01/01/20 injection, auto-injector sumatriptan succinate 100 mg tablet 100 mg PO ONCE PRN #14 tab 02/23/20 Trintellix 20 mg tablet 20 mg PO DAILY #30 tab NS 04/11/21 (vortioxetine) mirtazapine 7.5 mg tablet 7.5 mg PO BEDTIME PRN #30 tab 04/11/21 montelukast 10 mg tablet See Rx Instructions .ROUTE 04/22/21 .COMPLEX #90 tab diazepam 5 mg tablet 5 mg PO BID #60 tab 05/18/21 quetiapine 25 mg tablet See Rx Instructions PO BID #75 tab 05/18/21 methylprednisolone 4 mg tablet 4 mg PO DAILY 3 Days #3 tab 06/06/21 Allergies Allergy/AdvReac Type Severity Reaction Status Date / Time Iodinated Contrast Media Allergy Severe Difficulty Verified 06/04/21 12:15 Breathing iodine Allergy Severe Difficulty Verified 06/04/21 12:15 Breathing latex Allergy Severe Rash Verified 06/04/21 12:15 morphine [MORPHINE] Allergy Severe Anaphylaxis Verified 06/04/21 12:15 Penicillins [PENICILLINS] Allergy Severe Anaphylaxis Verified 06/04/21 12:15 Sulfa (Sulfonamide Allergy Severe RASH Verified 06/04/21 12:15 Antibiotics) [SULFA (SULFONAMIDE ANTIBIOTICS)] azithromycin Allergy Intermediate Rash Verified 06/04/21 12:15 [From ZITHROMAX Z-MARILYN] cefuroxime [From Ceftin] Allergy Intermediate Rash Verified 06/04/21 12:15 sulfamethoxazole Allergy Intermediate RASH Verified 06/04/21 12:15 [From SEPTRA] trimethoprim [From SEPTRA] Allergy Intermediate RASH Verified 06/04/21 12:15 ciprofloxacin [From Cipro] Allergy Pt does Verified 06/04/21 12:15 not remember reaction Corticosteroids Allergy Swelling Verified 06/04/21 12:15 (Glucocorticoids) of Lip/Tongue/Throat cephalexin [From Keflex] AdvReac Severe Fever, Verified 06/04/21 12:15 Asthma, Tachycardia prednisone AdvReac Severe nausea and Verified 06/04/21 12:15 feels very weak, and axious verapamil AdvReac Intermediate Asthma Verified 06/04/21 12:15 symptoms zonisamide AdvReac Intermediate Asthma Verified 06/04/21 12:15 symptoms Review of Systems Review of Systems Narrative: GENERAL: Denies chills, fatigue, malaise, fever, sweats. HEENT: Denies sinus pain, ear pain, sore throat, difficulty swallowing, dizziness. RESPIRATORY: See HPI CARDIOVASCULAR: Denies chest pain, palpitations, orthopnea, edema, GASTROINTESTINAL: Denies nausea, vomiting, abdominal pain, diarrhea, constipation, melena. : Denies dysuria, frequency, incontinence, hematuria, urinary retention. MUSCULOSKELETAL: denies weakness, joint pain, or bony pain SKIN: Denies rash, skin lesions, or other NEUROLOGIC: Denies weakness, headache, numbness, change in speech, confusion, seizures, incoordination. PSYCHIATRIC: No concerning psychosocial issues. 12 point review of systems is negative except for those stated above Patient History Medical History Anemia Anxiety Asthma Chronic back pain Chronic cough Depression Femur fracture, left Fibromyalgia Fractures GERD (gastroesophageal reflux disease) Hiatal hernia Recurrent sinusitis Venous insufficiency (chronic) (peripheral) Surgical History Anesthesia History of eye surgery (~1973) History of foot surgery History of hysterectomy (~1979) History of shoulder surgery (~2011) History of tonsillectomy (~1975) Hx of bilateral cataract extraction Family History Mother Heart disease Sister Heart disease Social History marital status: number of children: 1 household members: none lives independently: Yes caregiver/support person: Yes (3 afternoons per week) pets and animals: Yes occupational status: disabled Smoking Status: Never smoker alcohol intake: never substance use type: does not use Smoking Status: Never smoker alcohol intake frequency: holidays/special occasions only Substance Use Type: does not use Exam Narrative Exam Narrative: GENERAL: 65 ] year old patient appears stated age. Well-developed patient, in mild distress. HEAD: Atraumatic. Normocephalic. EYES: Pupils equal round and reactive. Extraocular motions intact. No scleral icterus. No injection or drainage. ENT: Nose without bleeding, purulent drainage. Throat without erythema, tonsi llar hypertrophy or exudate. Airway patent. NECK: Trachea midline. Non tender CARDIOVASCULAR: Regular rate and rhythm without murmurs, gallops, or rubs. RESPIRATORY: No evidence of respiratory distress, tachypnea, good effort, mild expiratory wheeze, no rales or rhonchi. No use of accessory muscles or need for supplemental oxygen GASTROINTESTINAL: Abdomen soft, with generalized tenderness, widespread ecchymosis, bowel sounds intact EXTREMITIES: No edema or joint tenderness. BACK: Nontender without deformity or crepitance. No flank tenderness. NEURO: AOx3. SKIN: No rash or erythema of visible areas Initial Vital Signs Initial Vital Signs: Vital Signs Pulse Rate 83 07/17/21 23:44 Respiratory Rate 36 H 07/17/21 23:44 Blood Pressure 130/73 07/17/21 23:44 Pulse Oximetry 93 07/17/21 23:44 Course Orders Ordered: ED Orders 07/18/21 EKG-12 Lead Routine 07/18/21 00:48 XR acute abdomen series Stat 07/18/21 01:00 Complete Blood Count AUTO DIFF Stat Comprehensive Metabolic Panel Stat Magnesium Stat Procalcitonin Stat 07/18/21 02:28 CT chest abd pel w con Stat Famotidine (Famotidine 20 Mg/2 Ml Vial) 20 mg IV NOW ZHANG Last Admin: 07/18/21 02:50 Dose: 20 mg Documented by: CIARRA Discontinued Medications Albuterol/Ipratropium (Albuterol/Ipratropium 3 Ml Ampul) 3 ml INH NOW ONE Stop: 07/18/21 04:32 Last Admin: 07/18/21 04:38 Dose: 3 ml Documented by: BRAYAN Diphenhydramine HCl (Diphenhydramine 50 Mg/Ml Vial) 25 mg IV NOW ONE Stop: 07/18/21 02:43 Last Admin: 07/18/21 02:51 Dose: 25 mg Documented by: CIARRA Methylprednisolone (Methylprednisolone 125 Mg/2 Ml Vial) 125 mg IV NOW ONE Stop: 07/18/21 02:43 Last Admin: 07/18/21 02:51 Dose: 125 mg Documented by: CIARRA Ondansetron HCl (Ondansetron 4 Mg/2 Ml Inj) 4 mg IV NOW ONE Stop: 07/18/21 00:48 Last Admin: 07/18/21 01:17 Dose: 4 mg Documented by: CIARRA Pantoprazole Sodium (Pantoprazole 40 Mg Vial) 40 mg IV NOW ONE Stop: 07/18/21 00:48 Last Admin: 07/18/21 01:16 Dose: 40 mg Documented by: CIARRA Reevaluation(s) Reevaluation #1: less wheeze after duoneb Consultations Consultation #1: discussed with consumer loan processor surgeon, we discussed history and physical, labs, imaging. Very reassuring, no need for further workup, will relay findings to patient surgeon. Vital Signs Vital signs: Vital Signs - 8 hr 07/17/21 23:44 07/18/21 04:38 Pulse Rate 83 72 Respiratory Rate 36 H 16 Blood Pressure 130/73 Pulse Oximetry 93 95 MDM - SOB/Dyspnea Lab Data Result diagrams: 07/18/21 01:00 07/18/21 01:00 Labs: Lab Results 07/18/21 07/18/21 07/18/21 Range/Units 01:00 01:00 01:00 WBC 9.4 (4.5-11.0) X10^3/uL RBC 3.73 L (4.0-5.2) X10^6/uL Hgb 10.3 L (12.0-16.0) g/dL Hct 30.7 L (36-46) % MCV 82.3 (80-100) fL MCH 27.7 (26-34) PG MCHC 33.7 (30-36) % RDW 16.2 H (11.6-14.8) % Plt Count 292 (150-400) X10^3/uL Neut % (Auto) 52.2 (50-75) % Lymph % (Auto) 33.7 (25-40) % [place] % (Auto) 8.2 (3-14) % Eos % (Auto) 5.0 H (2-4) % Baso % (Auto) 0.9 (0-2) % Neut # (Auto) 4900 (6695-3016) /uL Lymph # (Auto) 3200 (0223-5883) /uL [place] # (Auto) 800 (0-900) /uL Eos # (Auto) 500 H (0-450) /uL Baso # (Auto) 100 (0-100) /uL Sodium 137 (137-145) mmol/L Potassium 4.1 (3.4-5.1) mmol/L Chloride 105 (98-107) mmol/L Carbon Dioxide 27 (22-32) mmol/L BUN 23 H (7-17) mg/dL Creatinine 1.06 H (0.52-1.04) mg/dL Estimated GFR 58 L (>60) mL/min BUN/Creatinine Ratio 21.7 (6-22) Glucose 108 (80-110) mg/dL Calcium 9.0 (8.4-10.2) mg/dL Magnesium 1.9 (1.6-2.3) mg/dL Total Bilirubin 0.2 (0.2-1.3) mg/dL AST 59 H (14-36) IU/L ALT 44 H (<35) IU/L Alkaline Phosphatase 97 (38-126) U/L Total Protein 6.7 (6.3-8.2) g/dL Albumin 3.8 (3.5-5.0) g/dL Globulin 2.9 (1.7-4.1) g/dL Albumin/Globulin Ratio 1.3 (1.0-2.8) Procalcitonin 0.07 (<0.5) ng/mL Imaging Data CT scan - chest: Radiologist's Impression: Hiatal hernia now demonstrating wall thickening and surrounding fluid, known pneumomediastinum, cardiomegaly, small pericardial effusion Postsurgical changes from ventral abdominal wall hernia repair, no masses, lymphadenopathy or abnormal fluid collections. MDM Narrative Medical decision making narrative: Multiple etiologies for patient's symptoms considered including: [Pneumonia versus pulmonary embolism versus anemia versus sepsis versus other Patient's symptoms improved over duration of stay with above-stated therapies. Findings and discharge diagnosis discussed with patient/family followed by verbalization of understanding Return precautions discussed with patient/family whom verbalize understanding. Discharge Plan Departure Patient Disposition: Home Clinical Impression: Cough, Abdominal pain Activity Restrictions/Additional Instructions: *You have been diagnosed with [cough, post operative pain ] *What to do: *Please continue to take your regular medications as directed. [ ] New medication prescriptions sent to your pharmacy: [ ] [ ] New medication written as a paper prescription [x] No new medications given *Please follow up with your primary care provider in 2-3 days, call for an appointment. Let them know you were seen in the Emergency Department and that we ask that you be seen in follow up. We will electronically transmit a record of today's note if your PCP is in our system *If you do not have a primary care provider please contact the [facility] Resource line at [phone]. They will ask some questions about your medical history and help get you set up with a doctor in the community. *Return to Emergency Department if you should have any new, worsening or concerning symptoms, such as [fever greater than 101 F, shaking chills, worsening pain, persistent vomiting or other bothersome symptoms] Prescriptions: No Action Spiriva with HandiHaler 18 mcg capsule, w/inhalation device 1 cap inhalation DAILY 0RF Rx Instructions: puncture 1 cap using device; one dose = 2 inhalations pramipexole 0.75 mg tablet 0.75 mg PO DAILY 0RF ibuprofen 200 mg tablet 200 mg PO Q6H PRN (Reason: Pain (Scale Score 1-3)) 0RF gabapentin 600 mg tablet 600 mg PO TID 0RF Label Comments: 0700, 1400, 2100 acetaminophen 500 mg capsule 500 mg PO Q6H PRN (Reason: Pain (Scale Score 1-3)) 0RF Trintellix 20 mg tablet 20 mg PO DAILY Qty: 30 5RF mirtazapine 7.5 mg tablet 7.5 mg PO BEDTIME PRN (Reason: sleep) Qty: 30 2RF Hold Instructions: not currently taking valsartan 40 mg tablet 20 mg PO BID 0RF metoprolol succinate 25 mg tablet extended release 24 hr 25 mg PO BID 0RF quetiapine 25 mg tablet See Rx Instructions PO BID Qty: 75 0RF Rx Instructions: (12.5mg) 1/2 pill each morning; increase bedtime dose to (50mg) 2 pills at night diazepam 5 mg tablet 5 mg PO BID Qty: 60 1RF potassium chloride 20 mEq tablet extended release 10 meq PO DAILY PRN (Reason: Take w/lasix) 0RF Rx Instructions: Take w/lasix prn fluticasone propionate 50 mcg/actuation spray,suspension 1 spray intranasal BID 0RF Rx Instructions: administer into each nostril methocarbamol 750 mg tablet 750 mg PO TID PRN (Reason: Spasms) Qty: 90 3RF Rx Instructions: PRN epinephrine 0.3 mg/0.3 mL auto-injector 0.3 mg IM ONCE PRN (Reason: Allergic Reaction) Qty: 1 11RF montelukast 10 mg tablet See Rx Instructions .ROUTE .COMPLEX Qty: 90 0RF Dose Instruction: TAKE 1 TABLET BY MOUTH AT BEDTIME NEEDED FOR ALLERGY SYMPTOMS Rx Instructions: TAKE 1 TABLET BY MOUTH AT BEDTIME NEEDED FOR ALLERGY SYMPTOMS sumatriptan succinate 100 mg tablet 100 mg PO ONCE PRN (Reason: migraine headache) Qty: 14 3RF Rx Instructions: take at onset, may repeat in 2 hours if no relief, max daily dose 2 tabs lidocaine 5 % Ointment 1 applic TOPICAL TID PRN (Reason: pain) 0RF ketotifen fumarate [Zaditor] 0.025 % (0.035 %) Drops 1 drp OPHTHALMIC (EYE) BID 0RF sennosides [senna] 8.6 mg Tablet 17.2 mg PO BEDTIME PRN (Reason: Constipation) 0RF diphenhydramine HCl [Benadryl] 25 mg Capsule 75 mg PO DAILY PRN (Reason: Allergy Symptoms) 0RF omeprazole 40 mg Capsule,Delayed Release(Dr/Ec) 40 mg PO BID 0RF ondansetron 8 mg Tablet,Disintegrating 8 mg PO Q8H PRN (Reason: Nausea) 0RF methylprednisolone 4 mg tablet 4 mg PO DAILY 3 Days Qty: 3 0RF Referrals: Maxim Parks MD [Primary Care Provider] -
[2021-07-18 04:38] VITALS: PULSE 72; RESP 16; O2SAT 95
[2021-07-18] MEDS: ALBUTEROL/IPRATROPIUM 3 ML AMPUL INH (04:38)
--- NOTE | 2021-07-18 05:08 | PC.NURSE ---
pt stated since there were no significant findings there was no reason to stay, Dr De Jesus notified. pt wanting to leave with IV informed pt that it needed to be dc prior to her leaving, pt stated I do know how to take it out, pt did allow for the IV to be dc then left ambulatory with gait steady
== END 2021-07-18 05:28 | disposition home or self-care (01) ==
PROVIDERS: Emergency Provider Emergency Medicine; PCP Family Medicine
DX: R05.9 Cough, unspecified (principal); G89.18 Other acute postprocedural pain; R10.9 Unspecified abdominal pain
CPT/HCPCS: 36415; 71260; 74022; 74177; 80053; 83735; 84145; 85025; 93005; 93010; 94640; 96374; 96375; 99284; C9113; J1200; J2405; J2930; Q9967

== ENCOUNTER 2021-08-10 14:53 | Emergency (ER) | payer OTHER, MEDICAID, SELFPAY ==
[2021-06-04 16:30] VITALS: BMI 39.6
[2021-08-10 15:00] VITALS: PULSE 80; RESP 20; TEMP 36.4; O2SAT 95; BMI 38.0
--- NOTE | 2021-08-10 16:41 | ED_ITS ---
HPI - Anxiety <ILAN Castañeda - Last Filed: 08/10/21 18:53> General Chief Complaint: Anxiety Stated Complaint: EXTREME ANXIETY Time Seen by Provider: 08/10/21 16:41 Source: patient Mode of arrival: Ambulatory History of Present Illness HPI narrative: This is a 65-year-old female presents to the emergency department today for worsening anxiety related to a family member's illness over the last few days. Patient states that she cannot stop feeling anxious. She states that she takes diazepam at home twice a day but this has been insufficient to help treat her acute anxiety situation. She is a patient of Dr. Shital Aguilar psychiatrist and states she was unable to get in to be seen for an anxiety exacerbation today. She states that she was told to come to the emergency department because she could get into her psychiatrist or PCP. Patient endorses extreme anxiety, states that she was prescribed Haldol in the past which was helpful for her when she had panic attacks. Related Data Home Medications Medication Instructions Recorded Confirmed sennosides 8.6 mg tablet (senna) 17.2 mg PO BEDTIME PRN Constipation 09/20/18 potassium chloride 20 mEq 10 meq PO DAILY PRN Take w/lasix 10/29/18 06/04/21 tablet,extended release diphenhydramine HCl 25 mg capsule 75 mg PO DAILY PRN Allergy Symptoms 10/26/19 06/04/21 (Benadryl) omeprazole 40 mg capsule,delayed 40 mg PO BID 02/10/20 06/04/21 release lidocaine 5 % topical ointment 1 applic topical TID PRN pain 02/24/20 06/04/21 ketotifen fumarate 0.025 % (0.035 1 drp ophthalmic (eye) BID 03/02/20 06/04/21 %) eye drops (Zaditor) fluticasone propionate 50 1 spray intranasal BID 04/02/20 06/04/21 mcg/actuation nasal spray,suspension ondansetron 8 mg disintegrating 8 mg PO Q8H PRN Nausea 06/29/20 06/04/21 tablet metoprolol succinate 25 mg 25 mg PO BID 01/27/21 06/04/21 tablet,extended release 24 hr valsartan 40 mg tablet 20 mg PO BID 01/27/21 06/04/21 acetaminophen 500 mg capsule 500 mg PO Q6H PRN Pain (Scale 04/11/21 06/04/21 Score 1-3) gabapentin 600 mg tablet 600 mg PO TID 04/11/21 06/04/21 ibuprofen 200 mg tablet 200 mg PO Q6H PRN Pain (Scale 04/11/21 06/04/21 Score 1-3) pramipexole 0.75 mg tablet 0.75 mg PO DAILY 04/11/21 06/04/21 tiotropium bromide 18 mcg capsule 1 cap inhalation DAILY 04/11/21 06/04/21 with inhalation device (Spiriva with HandiHaler) Previous Rx's Medication Instructions Recorded methocarbamol 750 mg tablet 750 mg PO TID PRN Spasms #90 tabs 09/29/19 epinephrine 0.3 mg/0.3 mL 0.3 mg (0.3 mL) IM ONCE PRN 01/01/20 injection, auto-injector Allergic Reaction #1 ea Trintellix 20 mg tablet 20 mg PO DAILY #30 tabs 04/11/21 (vortioxetine) mirtazapine 7.5 mg tablet 7.5 mg PO BEDTIME PRN sleep #30 04/11/21 tabs methylprednisolone 4 mg tablet 4 mg PO DAILY 3 days #3 tabs 06/06/21 quetiapine 25 mg tablet See Rx Instructions PO BID #75 tabs 07/25/21 montelukast 10 mg tablet See Rx Instructions .Route 07/26/21 .COMPLEX #90 tabs sumatriptan succinate 100 mg tablet See Rx Instructions .Route 07/26/21 .COMPLEX #14 tabs diazepam 5 mg tablet 5 mg PO BID #60 tabs 08/08/21 haloperidol 2 mg tablet 2 mg PO BEDTIME PRN anxiety #10 08/10/21 tabs Allergies Allergy/AdvReac Type Severity Reaction Status Date / Time Iodinated Contrast Media Allergy Severe Difficulty Verified 06/04/21 12:15 Breathing iodine Allergy Severe Difficulty Verified 06/04/21 12:15 Breathing latex Allergy Severe Rash Verified 06/04/21 12:15 morphine [MORPHINE] Allergy Severe Anaphylaxis Verified 06/04/21 12:15 Penicillins [PENICILLINS] Allergy Severe Anaphylaxis Verified 06/04/21 12:15 Sulfa (Sulfonamide Allergy Severe RASH Verified 06/04/21 12:15 Antibiotics) [SULFA (SULFONAMIDE ANTIBIOTICS)] azithromycin Allergy Intermediate Rash Verified 06/04/21 12:15 [From ZITHROMAX Z-MARILYN] cefuroxime [From Ceftin] Allergy Intermediate Rash Verified 06/04/21 12:15 sulfamethoxazole Allergy Intermediate RASH Verified 06/04/21 12:15 [From SEPTRA] trimethoprim [From SEPTRA] Allergy Intermediate RASH Verified 06/04/21 12:15 ciprofloxacin [From Cipro] Allergy Pt does Verified 06/04/21 12:15 not remember reaction Corticosteroids Allergy Swelling Verified 06/04/21 12:15 (Glucocorticoids) of Lip/Tongue/Throat cephalexin [From Keflex] AdvReac Severe Fever, Verified 06/04/21 12:15 Asthma, Tachycardia prednisone AdvReac Severe nausea and Verified 06/04/21 12:15 feels very weak, and axious verapamil AdvReac Intermediate Asthma Verified 06/04/21 12:15 symptoms zonisamide AdvReac Intermediate Asthma Verified 06/04/21 12:15 symptoms Review of Systems <IALN Castañeda - Last Filed: 08/10/21 18:53> Review of Systems Narrative: General: denies fever, chills Head/Neck: denies headache, neck pain Eyes: denies visual changes, eye pain Cardio: denies chest pain, palpitations Respiratory: denies shortness of breath, cough GI: denies abdominal pain, nausea, vomiting, or diarrhea : denies dysuria, hematuria or flank pain MSK: denies new joint pain, muscle weakness or swelling Skin: denies rash, itching or wound Neuro: denies numbness, tingling, dizziness, states that she is still able to care for herself, states that she feels constantly anxious Patient History <ILAN Castañeda - Last Filed: 08/10/21 18:53> Medical History Anemia Anxiety Asthma Chronic back pain Chronic cough Depression Femur fracture, left Fibromyalgia Fractures GERD (gastroesophageal reflux disease) Hiatal hernia Recurrent sinusitis Venous insufficiency (chronic) (peripheral) Surgical History Anesthesia History of eye surgery (~1973) History of foot surgery History of hysterectomy (~1979) History of shoulder surgery (~2011) History of tonsillectomy (~1975) Hx of bilateral cataract extraction Family History Mother Heart disease Sister Heart disease Social History marital status: number of children: 1 household members: none lives independently: Yes caregiver/support person: Yes (3 afternoons per week) pets and animals: Yes occupational status: disabled Smoking Status: Never smoker alcohol intake: never substance use type: does not use Smoking Status: Never smoker alcohol intake frequency: holidays/special occasions only Substance Use Type: does not use Exam <ILAN Castañeda - Last Filed: 08/10/21 18:53> Narrative Exam Narrative: Independently reviewed vitals signs and nursing notes. General: Awake, alert, nontoxic, no cardiorespiratory distress Head/Neck: Atraumatic, neck supple Eyes: EOMI, conjunctiva normal Nose: nares patent, no rhinorrhea Mouth/Throat: moist mucus membranes, posterior pharynx without erythema or lesion Cardio: Regular rate and rhythm, S1-S2 without murmur, no peripheral edema, warm extremities Respiratory: respirations unlabored without wheezing, stridor, or rales. No retractions, hypoxia or tachypnea GI: Abdomen soft, nontender to palpation x4 quadrants, no guarding or rebound tenderness MSK: Moves all extremities, neurovascularly intact, range of motion without deficit without weakness Skin: Normal capillary refill, no rash Neuro: Normal speech and cognition, normal gait, patient is tremulous, anxious, frequently rubbing her hands, tearful, states that she needs help with her anxiety, alert and oriented x3, no gross neuro deficits, Initial Vital Signs Initial Vital Signs: Vital Signs Temperature 97.5 F L 08/10/21 15:00 Pulse Rate 80 08/10/21 15:00 Respiratory Rate 20 08/10/21 15:00 Pulse Oximetry 95 08/10/21 15:00 Oxygen Delivery Method 08/10/21 15:00 <Allyssa Limon DO - Last Filed: 08/11/21 07:49> Initial Vital Signs Initial Vital Signs: Vital Signs Temperature 97.5 F L 08/10/21 15:00 Pulse Rate 80 08/10/21 15:00 Respiratory Rate 20 08/10/21 15:00 Pulse Oximetry 95 08/10/21 15:00 Oxygen Delivery Method 08/10/21 15:00 Course <ILAN Castañeda - Last Filed: 08/10/21 18:53> Orders Ordered: Discontinued Medications Diazepam (Diazepam 5 Mg Tablet) 5 mg PO NOW ONE Stop: 08/10/21 16:51 Last Admin: 08/10/21 17:06 Dose: 5 mg Documented By: LYNN Vital Signs Vital signs: Vital Signs - 8 hr 08/10/21 15:00 08/10/21 17:17 Temperature 97.5 F L Pulse Rate 80 87 Respiratory Rate 20 18 Blood Pressure 170/100 H Pulse Oximetry 95 Oxygen Delivery Method Room Air <Allyssa Limon DO - Last Filed: 08/11/21 07:49> Orders Ordered: Discontinued Medications Diazepam (Diazepam 5 Mg Tablet) 5 mg PO NOW ONE Stop: 08/10/21 16:51 Last Admin: 08/10/21 17:06 Dose: 5 mg Documented By: LYNN Vital Signs Vital signs: Vital Signs - 8 hr 08/10/21 15:00 08/10/21 17:17 Temperature 97.5 F L Pulse Rate 80 87 Respiratory Rate 20 18 Blood Pressure 170/100 H Pulse Oximetry 95 Oxygen Delivery Method Room Air MDM - Anxiety <ILAN Castañeda - Last Filed: 08/10/21 18:53> ECG Data Interpretation: EKG independently reviewed by myself at 1710 reveals normal sinus rhythm at 78 bpm with regular axis and intervals. No STEMI, ST segment changes, arrhythmia, or acute ischemic changes. QT interval is 406, QTC is 462, no QT prolongation MDM Narrative Medical decision making narrative: This is a 65-year-old female well known to the Department, presents to the emergency department today for anxiety related to a family member's poor prognosis and health. She takes diazepam 5 mg b.i.d. at home baseline, states that this is not adequate for her a anxiety attack. She endorses that she has a history of taking Haldol for anxiety attacks in the past, and she was unable to get in to see Dr. Aguilar so she was told to go to the emergency department. [place] decision making between the patient and myself about how to manage her anxiety safely. She was treated in the emergency department with an additional dose of diazepam, states that this is helpful for her to go home. Discussed that she cannot take diazepam with Haldol, or gabapentin due to the sedating aff ects. She was given 2 mg tabs of Haldol to use as needed at night only for sleep at least 1 hour away from any other medications with this sedating side effects. Patient states understanding, she was given a short course of Haldol, encouraged to come to the emergency department if she is having any symptoms of extreme anxiety, depression, self-harm, suicidal or homicidal ideation. Patient wishes to follow-up with Dr. Aguilar at her scheduled appointment next week, and endorses that she will Uphold a safety contract and not take more than the scheduled amount at any given time. Patient's EKG is without QT prolongation, QT intervals 406, QTC is 462. Discussed that patient can use Haldol for extreme episodes of anxiety after trying her home medications, breathing exercises, and going for a walk 1st. She is encouraged to stay hydrated, and follow up accordingly. Patient is appropriate and amenable to discharge home. Vital signs are stable on repeat examination is unremarkable. Patient has been informed of results. Patient has been given strict return to ER precautions for any new or worsening symptoms. Patient understands to follow up closely with outpatient providers as instructed. Patient understands plan and agrees to discharge home. All questions and concerns answered at this time. Discharge Plan Departure Patient Disposition: Home Clinical Impression: Anxiety Instructions: Anxiety Disorders, Yoga May Help Reduce Anxiety and Stress Activity Restrictions/Additional Instructions: *You have been diagnosed with anxiety related to current life stressors. Please follow-up with Dr. Aguilar next week at your scheduled appointment. I have sent some helpful to [facility], please only take if you are having symptoms of extreme anxiety and cannot relax. Please do not take the diazepam and the Haldol together, this will be way too sedating. Please try to take the Haldol at night and use this only to go to sleep, this is a very strong medication that is why I am not giving you very many of them. I want you to try and use breathing exercises, go on a short walk, and try to deescalate anxious situations as best as you can without the need for an additional medication, only because this is very sedating. Do not take more than one at a time, do not combine with diazepam or gabapentin. Please take them at least 1 hour apart because they will have an increased effect if taken together. Please come back to the emergency department if you have any worsening of your symptoms and follow-up with Dr. Aguilar as scheduled. Try to schedule an appointment with a therapist. *What to do: *Please continue to take your regular medications as directed. [ x] New medication prescriptions sent to your pharmacy: [ Chances] [ ] New medication written as a paper prescription [ ] No new medications given *Please follow up with your primary care provider in 2-3 days, call for an appointment. Let them know you were seen in the Emergency Department and that we asked that you be seen for follow-up. We will electronically transmit a record of today's note if your PCP is in our system *If you do not have a primary care provider please contact [phone] to establish care with one of the [facility] primary care providers. *Return to Emergency Department if you should have any new, worsening or concerning symptoms, such as [fever greater than 101F, chills, worsening pain, persistent vomiting or other bothersome symptoms] Prescriptions: New haloperidol 2 mg tablet 2 mg PO BEDTIME PRN (Reason: anxiety) Qty: 10 0RF No Action Spiriva with HandiHaler 18 mcg capsule, w/inhalation device 1 cap inhalation DAILY Rx Instructions: puncture 1 cap using device; one dose = 2 inhalations pramipexole 0.75 mg tablet 0.75 mg PO DAILY ibuprofen 200 mg tablet 200 mg PO Q6H PRN (Reason: Pain (Scale Score 1-3)) gabapentin 600 mg tablet 600 mg PO TID Label Comments: 0700, 1400, 2100 acetaminophen 500 mg capsule 500 mg PO Q6H PRN (Reason: Pain (Scale Score 1-3)) Trintellix 20 mg tablet 20 mg PO DAILY Qty: 30 5RF mirtazapine 7.5 mg tablet 7.5 mg PO BEDTIME PRN (Reason: sleep) Qty: 30 2RF Hold Instructions: not currently taking valsartan 40 mg tablet 20 mg PO BID metoprolol succinate 25 mg tablet extended release 24 hr 25 mg PO BID potassium chloride 20 mEq tablet extended release 10 meq PO DAILY PRN (Reason: Take w/lasix) Rx Instructions: Take w/lasix prn fluticasone propionate 50 mcg/actuation spray,suspension 1 spray intranasal BID Rx Instructions: administer into each nostril methocarbamol 750 mg tablet 750 mg PO TID PRN (Reason: Spasms) Qty: 90 3RF Rx Instructions: PRN epinephrine 0.3 mg/0.3 mL auto-injector 0.3 mg IM ONCE PRN (Reason: Allergic Reaction) Qty: 1 11RF quetiapine 25 mg tablet See Rx Instructions PO BID Qty: 75 0RF Rx Instructions: (12.5mg) 1/2 pill each morning; increase bedtime dose to (50mg) 2 pills at night sumatriptan succinate 100 mg tablet See Rx Instructions .ROUTE .COMPLEX Qty: 14 0RF Dose Instruction: TAKE 1 TABLET BY MOUTH ONCE AT ONSET OF MIGRAINE HEADACHE. MAY REPEAT IN 2 HOURS IF NO RELIEF. MAX OF 2 TABLETS PER DAY. Rx Instructions: TAKE 1 TABLET BY MOUTH ONCE AT ONSET OF MIGRAINE HEADACHE. MAY REPEAT IN 2 HOURS IF NO RELIEF. MAX OF 2 TABLETS PER DAY. montelukast 10 mg tablet See Rx Instructions .ROUTE .COMPLEX Qty: 90 0RF Dose Instruction: TAKE 1 TABLET BY MOUTH AT BEDTIME NEEDED FOR ALLERGY SYMPTOMS Rx Instructions: TAKE 1 TABLET BY MOUTH AT BEDTIME NEEDED FOR ALLERGY SYMPTOMS diazepam 5 mg tablet 5 mg PO BID Qty: 60 1RF lidocaine 5 % Ointment 1 applic TOPICAL TID PRN (Reason: pain) ketotifen fumarate [Zaditor] 0.025 % (0.035 %) Drops 1 drp OPHTHALMIC (EYE) BID sennosides [senna] 8.6 mg Tablet 17.2 mg PO BEDTIME PRN (Reason: Constipation) diphenhydramine HCl [Benadryl] 25 mg Capsule 75 mg PO DAILY PRN (Reason: Allergy Symptoms) omeprazole 40 mg Capsule,Delayed Release(Dr/Ec) 40 mg PO BID ondansetron 8 mg Tablet,Disintegrating 8 mg PO Q8H PRN (Reason: Nausea) methylprednisolone 4 mg tablet 4 mg PO DAILY 3 Days Qty: 3 0RF Referrals: Maxim Parks MD [Primary Care Provider] - Shital Aguilar DO [Physician] - Visit Report Forms: Patient Portal/API <Allyssa Limon DO - Last Filed: 08/11/21 07:49> Cosign ED Attending Cosignature Attestation: I was immediately available in the department for consultation. Documentation has been reviewed. I agree with assessment and plan.
[2021-08-10] MEDS: diazePAM 5 MG TABLET PO (17:06)
[2021-08-10 17:17] VITALS: BP 170/100; PULSE 87; RESP 18
== END 2021-08-10 17:19 | disposition home or self-care (01) ==
PROVIDERS: Emergency Provider Nurse Practitioner Critical Care Medicine; PCP Family Medicine
DX: F41.9 Anxiety disorder, unspecified (principal)
CPT/HCPCS: 93005; 93010; 99283

== ENCOUNTER 2021-08-16 15:00 | Emergency (ER) | payer OTHER, MEDICAID, SELFPAY ==
[2021-06-04 16:30] VITALS: BMI 39.6
[2021-08-16 15:07] VITALS: BP 110/69; PULSE 79; RESP 16; TEMP 35.9; O2SAT 94; BMI 37.7
== END 2021-08-16 16:14 | disposition left against medical advice (07) ==
PROVIDERS: Emergency Provider Emergency Medicine; PCP Family Medicine
CPT/HCPCS: 99281

== ENCOUNTER 2021-08-25 21:08 | Emergency (ER) | payer OTHER, MEDICAID, SELFPAY ==
[2021-06-04 16:30] VITALS: BMI 39.6
[2021-08-25 21:19] VITALS: BP 124/66; PULSE 60; RESP 18; TEMP 36.3; O2SAT 96; BMI 35.4
[2021-08-25 21:51] LABS: Add Manual Diff / Slide Review NO; Basophils Absolute Auto 100 /uL (0-100); Basophils Percent Auto 1.4 % (0-2); Eosinophils Absolute Auto 200 /uL (0-450); Eosinophils Percent Auto 2.8 % (2-4); Hematocrit 32.2 % (36-46); Hemoglobin 10.8 g/dL (12.0-16.0); Lymphocytes Absolute Auto 2200 /uL (1100-4500); Mean Corpuscular HGB Conc 33.6 % (30-36); Mean Corpuscular Volume 80.2 fL (80-100); Monocytes Absolute Auto 900 /uL (0-900); Monocytes Percent Auto 10.5 % (3-14); Neutrophils Absolute Auto 5100 /uL (1500-7000); Neutrophils Percent Auto 59.3 % (50-75); Platelet Count 286 X10^3/uL (150-400); Red Blood Cell Count 4.02 X10^6/uL (4.0-5.2); Red Cell Distribution Width 16.7 % (11.6-14.8); White Blood Cell Count 8.6 X10^3/uL (4.5-11.0)
[2021-08-25 21:58] LABS: Alanine Aminotransferase 22 IU/L (<35); Albumin Globulin Ratio 1.3 (1.0-2.8); Alkaline Phosphatase 127 U/L (38-126); Aspartate Aminotransferase 34 IU/L (14-36); BUN Creatinine Ratio 31.7 (6-22); Bilirubin Total 0.4 mg/dL (0.2-1.3); Blood Urea Nitrogen 39 mg/dL (7-17); Calcium 8.7 mg/dL (8.4-10.2); Carbon Dioxide 27 mmol/L (22-32); Chloride 99 mmol/L (98-107); Estimated Glomerular Filt Rate 48 mL/min (>60); Glucose 99 mg/dL (80-110); HEMOLYSIS < 15 (0-50); Lipase 145 U/L (23-300); Potassium 2.8 mmol/L (3.4-5.1); Sodium 136 mmol/L (137-145)
[2021-08-25 22:14] LABS: Bacteria Urine Occasional (0-1); RBC Urine None Seen (0-5/HPF); WBC Urine 5-10/HPF (0-5/HPF)
[2021-08-25] MEDS: ONDANSETRON 4 MG/2 ML INJ IV (22:33)
[2021-08-25 22:47] VITALS: BP 107/56; RESP 18
[2021-08-25 23:32] VITALS: PULSE 61; RESP 18
[2021-08-25] MEDS: POTASSIUM CHLORIDE 20 MEQ/15 ML UDC 40 MEQ PO (23:55)
[2021-08-26] VITALS (9 sets, daily range): BP systolic 106–128; BP diastolic 54–60; PULSE 63–75; RESP 21–31; O2SAT 92
--- NOTE | 2021-08-26 00:09 | ED.ABDPAIN ---
HPI - Abdominal Pain General Chief Complaint: Abdominal Pain Stated Complaint: kidney and hernia pain Time Seen by Provider: 08/25/21 22:26 Source: patient Mode of arrival: Wheelchair Limitations: no limitations History of Present Illness HPI narrative: 65-year-old recent hiatal hernia repair, anemia, depression and known renal mass who presents with complaint of nausea but no persistent vomiting, generally feeling unwell increasing abdominal pain for the last several days but particularly worsened today, patient has had stools which he states have been normal sometimes soft. She denies any black or bloody stools. She denies any dysuria, urgency or frequency. She is noted decrease in her urine output. She denies fevers or chills. She denies any chest pain or shortness of breath. Patient states she did have surgery in July for hernia repair and states she is been doing well since then. Related Data Home Medications Medication Instructions Recorded Confirmed sennosides 8.6 mg tablet (senna) 17.2 mg PO BEDTIME PRN Constipation 09/20/18 08/19/21 potassium chloride 20 mEq 10 meq PO DAILY PRN Take w/lasix 10/29/18 08/19/21 tablet,extended release diphenhydramine HCl 25 mg capsule 75 mg PO DAILY PRN Allergy Symptoms 10/26/19 08/19/21 (Benadryl) omeprazole 40 mg capsule,delayed 40 mg PO BID 02/10/20 08/19/21 release lidocaine 5 % topical ointment 1 applic topical TID PRN pain 02/24/20 08/19/21 ketotifen fumarate 0.025 % (0.035 1 drp ophthalmic (eye) BID 03/02/20 08/19/21 %) eye drops (Zaditor) fluticasone propionate 50 1 spray intranasal BID 04/02/20 08/19/21 mcg/actuation nasal spray,suspension ondansetron 8 mg disintegrating 8 mg PO Q8H PRN Nausea 06/29/20 08/19/21 tablet metoprolol succinate 25 mg 25 mg PO BID 01/27/21 08/19/21 tablet,extended release 24 hr valsartan 40 mg tablet 20 mg PO BID 01/27/21 08/19/21 acetaminophen 500 mg capsule 500 mg PO Q6H PRN Pain (Scale 04/11/21 08/19/21 Score 1-3) gabapentin 600 mg tablet 600 mg PO TID 04/11/21 08/19/21 ibuprofen 200 mg tablet 200 mg PO Q6H PRN Pain (Scale 04/11/21 08/19/21 Score 1-3) pramipexole 0.75 mg tablet 0.75 mg PO DAILY 04/11/21 08/19/21 tiotropium bromide 18 mcg capsule 1 cap inhalation DAILY 04/11/21 08/19/21 with inhalation device (Spiriva with HandiHaler) torsemide 20 mg tablet 80 mg PO BID 08/19/21 08/19/21 Previous Rx's Medication Instructions Recorded methocarbamol 750 mg tablet 750 mg PO TID PRN Spasms #90 tabs 09/29/19 epinephrine 0.3 mg/0.3 mL 0.3 mg (0.3 mL) IM ONCE PRN 01/01/20 injection, auto-injector Allergic Reaction #1 ea Trintellix 20 mg tablet 20 mg PO DAILY #30 tabs 04/11/21 (vortioxetine) methylprednisolone 4 mg tablet 4 mg PO DAILY 3 days #3 tabs 06/06/21 montelukast 10 mg tablet See Rx Instructions .Route 07/26/21 .COMPLEX #90 tabs sumatriptan succinate 100 mg tablet See Rx Instructions .Route 07/26/21 .COMPLEX #14 tabs haloperidol 2 mg tablet 2 mg PO BEDTIME PRN anxiety #10 08/10/21 tabs quetiapine 25 mg tablet 25 mg PO BEDTIME #40 tabs 08/19/21 diazepam 5 mg tablet 5 mg PO TID PRN anxiety #42 tabs 08/29/21 Allergies Allergy/AdvReac Type Severity Reaction Status Date / Time Iodinated Contrast Media Allergy Severe Difficulty Verified 08/31/21 19:09 Breathing iodine Allergy Severe Difficulty Verified 08/31/21 19:09 Breathing latex Allergy Severe Rash Verified 08/31/21 19:09 morphine [MORPHINE] Allergy Severe Anaphylaxis Verified 08/31/21 19:09 Penicillins [PENICILLINS] Allergy Severe Anaphylaxis Verified 08/31/21 19:09 Sulfa (Sulfonamide Allergy Severe RASH Verified 08/31/21 19:09 Antibiotics) [SULFA (SULFONAMIDE ANTIBIOTICS)] azithromycin Allergy Intermediate Rash Verified 08/31/21 19:09 [From ZITHROMAX Z-MARILYN] cefuroxime [From Ceftin] Allergy Intermediate Rash Verified 08/31/21 19:09 sulfamethoxazole Allergy Intermediate RASH Verified 08/31/21 19:09 [From SEPTRA] trimethoprim [From SEPTRA] Allergy Intermediate RASH Verified 08/31/21 19:09 ciprofloxacin [From Cipro] Allergy Pt does Verified 08/31/21 19:09 not remember reaction Corticosteroids Allergy Swelling Verified 08/31/21 19:09 (Glucocorticoids) of Lip/Tongue/Throat cephalexin [From Keflex] AdvReac Severe Fever, Verified 08/31/21 19:09 Asthma, Tachycardia prednisone AdvReac Severe nausea and Verified 08/31/21 19:09 feels very weak, and axious verapamil AdvReac Intermediate Asthma Verified 08/31/21 19:09 symptoms zonisamide AdvReac Intermediate Asthma Verified 08/31/21 19:09 symptoms Review of Systems Review of Systems ROS Unobtainable: All systems reviewed & are unremarkable except as noted in HPI and below Patient History Medical History Anemia Anxiety Asthma Chronic back pain Chronic cough Depression Femur fracture, left Fibromyalgia Fractures GERD (gastroesophageal reflux disease) Hiatal hernia Recurrent sinusitis Venous insufficiency (chronic) (peripheral) Surgical History Anesthesia History of eye surgery (~1973) History of foot surgery History of hysterectomy (~1979) History of shoulder surgery (~2011) History of tonsillectomy (~1975) Hx of bilateral cataract extraction Family History Mother Heart disease Sister Heart disease Social History marital status: number of children: 1 household members: none lives independently: Yes caregiver/support person: Yes (3 afternoons per week) pets and animals: Yes occupational status: disabled Smoking Status: Never smoker alcohol intake: never substance use type: does not use Smoking Status: Never smoker alcohol intake frequency: holidays/special occasions only Substance Use Type: does not use Exam Narrative Exam Narrative: GENERAL: Alert and oriented x three, elderly female appears older than stated age. HEENT: Head normocephalic, atraumatic, EOMI, pupils reactive, face symmetric, moist mucous membranes NECK: Supple, full range of motion CARDIOVASCULAR: Regular rate and rhythm without murmurs, rubs or gallops. No JVD. Bilateral swelling lower extremities. RESPIRATORY: Breath sounds equal bilaterally, no wheezes rales or rhonchi. No tachypnea accessory muscle use. ABDOMEN: Soft, patient has generalized tenderness. Distended. Patient has healing incisions consistent with laparoscopic repair which are clean dry and intact. Normoactive bowel sounds all 4 quadrants. No guarding or rebound, rigidity, no mass, no pulsatile bruit : No CVA tenderness EXTREMITIES: Normal range of motion, no clubbing or edema. Neurovascularly intact NEUROLOGICAL: Cranial nerves II through XII grossly intact. Moving all extremities SKIN: Warm, dry, no petechiae, no rashes or lesions. Initial Vital Signs Initial Vital Signs: Vital Signs Temperature 97.4 F L 08/25/21 21:19 Pulse Rate 60 08/25/21 21:19 Respiratory Rate 18 08/25/21 21:19 Blood Pressure 124/66 08/25/21 21:19 Pulse Oximetry 96 08/25/21 21:19 Oxygen Delivery Method 08/25/21 21:19 Course Orders Ordered: Discontinued Medications Diphenhydramine HCl (Diphenhydramine 50 Mg/Ml Vial) 50 mg IV NOW ONE Stop: 08/26/21 00:38 Last Admin: 08/26/21 00:41 Dose: 50 mg Documented By: EB Fentanyl (Fentanyl 100 Mcg/2 Ml Inj) 25 mcg IV NOW ONE Stop: 08/26/21 00:23 Last Admin: 08/26/21 00:30 Dose: 25 mcg Documented By: EB Sodium Chloride (Normal Saline 0.9%) 1,000 mls @ 500 mls/hr IV BOLUS ONE Stop: 08/26/21 02:16 Last Infusion: 08/26/21 04:04 Dose: 0 mls/hr Documented By: Admin: 08/26/21 00:30 Dose: 500 mls/hr Documented By: EB Methylprednisolone (Methylprednisolone 125 Mg/2 Ml Vial) 125 mg IV NOW ONE Stop: 08/26/21 00:38 Last Admin: 08/26/21 00:41 Dose: 125 mg Documented By: EB Ondansetron HCl (Ondansetron 4 Mg/2 Ml Inj) 4 mg IV NOW ONE Stop: 08/25/21 21:39 Last Admin: 08/25/21 22:33 Dose: 4 mg Documented By: AT Potassium Chloride (Potassium Chloride 20 Meq/15 Ml Udc) 40 meq PO NOW ONE Stop: 08/25/21 23:28 Last Admin: 08/25/21 23:55 Dose: 40 meq Documented By: EB Consultations Consultation #1: Dr. Waters, General surgery, no acute intervention at this time. Time: 03:48 Consultation #2: ROSA ISELA Vidal, hospitalist. Is willing to accept patient for observation will discuss with patient. Vital Signs Vital signs: Vital Signs - 8 hr 08/25/21 21:19 08/25/21 22:47 08/25/21 23:32 Temperature 97.4 F L Pulse Rate 60 61 Respiratory Rate 18 18 18 Blood Pressure 124/66 107/56 L Pulse Oximetry 96 Oxygen Delivery Method Room Air 08/26/21 00:00 08/26/21 00:00 08/26/21 00:23 Temperature Pulse Rate 63 65 Respiratory Rate 25 H 21 Blood Pressure 106/59 L Pulse Oximetry Oxygen Delivery Method 08/26/21 00:36 08/26/21 00:37 08/26/21 01:00 Temperature Pulse Rate 75 70 Respiratory Rate 24 Blood Pressure 120/54 L Pulse Oximetry Oxygen Delivery Method 08/26/21 01:55 08/26/21 01:57 08/26/21 01:57 Temperature Pulse Rate 64 Respiratory Rate 29 H 22 Blood Pressure 128/60 Pulse Oximetry 92 Oxygen Delivery Method 08/26/21 02:00 08/26/21 02:30 Temperature Pulse Rate 64 69 Respiratory Rate 25 H 31 H Blood Pressure Pulse Oximetry 92 92 Oxygen Delivery Method MDM - Abdominal Pain Lab Data Result diagrams: 08/25/21 21:40 08/25/21 21:40 Labs: Lab Results 08/25/21 08/25/21 08/25/21 Range/Units 21:40 21:40 21:58 WBC 8.6 (4.5-11.0) X10^3/uL RBC 4.02 (4.0-5.2) X10^6/uL Hgb 10.8 L (12.0-16.0) g/dL Hct 32.2 L (36-46) % MCV 80.2 (80-100) fL MCH 27.0 (26-34) PG MCHC 33.6 (30-36) % RDW 16.7 H (11.6-14.8) % Plt Count 286 (150-400) X10^3/uL Neut % (Auto) 59.3 (50-75) % Lymph % (Auto) 26.0 (25-40) % [place] % (Auto) 10.5 (3-14) % Eos % (Auto) 2.8 (2-4) % Baso % (Auto) 1.4 (0-2) % Neut # (Auto) 5100 (0935-8548) /uL Lymph # (Auto) 2200 (0272-9467) /uL [place] # (Auto) 900 (0-900) /uL Eos # (Auto) 200 (0-450) /uL Baso # (Auto) 100 (0-100) /uL Sodium 136 L (137-145) mmol/L Potassium 2.8 L (3.4-5.1) mmol/L Chloride 99 (98-107) mmol/L Carbon Dioxide 27 (22-32) mmol/L BUN 39 H (7-17) mg/dL Creatinine 1.23 H (0.52-1.04) mg/dL Estimated GFR 48 L (>60) mL/min BUN/Creatinine Ratio 31.7 H (6-22) Glucose 99 (80-110) mg/dL Lactate (0.7-2.1) mmol/L Calcium 8.7 (8.4-10.2) mg/dL Total Bilirubin 0.4 (0.2-1.3) mg/dL AST 34 (14-36) IU/L ALT 22 (<35) IU/L Alkaline Phosphatase 127 H (38-126) U/L Total Protein 7.0 (6.3-8.2) g/dL Albumin 4.0 (3.5-5.0) g/dL Globulin 3.0 (1.7-4.1) g/dL Albumin/Globulin Ratio 1.3 (1.0-2.8) Lipase 145 (23-300) U/L Procalcitonin (<0.5) ng/mL Urine RBC None seen (0-5/HPF) Urine WBC 5-10/hpf H (0-5/HPF) Urine Bacteria Occasional (0-1) (None) Ur Culture Indicated? Culture not indicate SARS-CoV-2 (PCR) (Negative) 08/26/21 08/26/21 08/26/21 Range/Units 00:35 00:39 00:39 WBC (4.5-11.0) X10^3/uL RBC (4.0-5.2) X10^6/uL Hgb (12.0-16.0) g/dL Hct (36-46) % MCV (80-100) fL MCH (26-34) PG MCHC (30-36) % RDW (11.6-14.8) % Plt Count (150-400) X10^3/uL Neut % (Auto) (50-75) % Lymph % (Auto) (25-40) % [place] % (Auto) (3-14) % Eos % (Auto) (2-4) % Baso % (Auto) (0-2) % Neut # (Auto) (4544-7600) /uL Lymph # (Auto) (3408-3769) /uL [place] # (Auto) (0-900) /uL Eos # (Auto) (0-450) /uL Baso # (Auto) (0-100) /uL Sodium (137-145) mmol/L Potassium (3.4-5.1) mmol/L Chloride (98-107) mmol/L Carbon Dioxide (22-32) mmol/L BUN (7-17) mg/dL Creatinine (0.52-1.04) mg/dL Estimated GFR (>60) mL/min BUN/Creatinine Ratio (6-22) Glucose (80-110) mg/dL Lactate 1.6 (0.7-2.1) mmol/L Calcium (8.4-10.2) mg/dL Total Bilirubin (0.2-1.3) mg/dL AST (14-36) IU/L ALT (<35) IU/L Alkaline Phosphatase (38-126) U/L Total Protein (6.3-8.2) g/dL Albumin (3.5-5.0) g/dL Globulin (1.7-4.1) g/dL Albumin/Globulin Ratio (1.0-2.8) Lipase (23-300) U/L Procalcitonin 0.06 (<0.5) ng/mL Urine RBC (0-5/HPF) Urine WBC (0-5/HPF) Urine Bacteria (None) Ur Culture Indicated? SARS-CoV-2 (PCR) Negative (Negative) Point of care testing: Urine Dip Bedside Urine Glucose Negative Bedside Urine Bilirubin - Negative Bedside Urine Ketone - Negative Urine Specific [place] 1.010 Bedside Urine Occult Blood - Negative Bedside Urine pH 6.0 Bedside Urine Protein - Negative Bedside Urine Urobilinogen - Negative Bedside Urine Nitrite - Negative Bedside Urine Leukocytes + [address] scan - abdomen/pelvis: Radiologist's Impression: Hernia involving the right anterolateral abdominal wall, suspected represent a spigelian hernia has significantly increased in size mouth with a hernia 3.5 cm Speghlian hernia which contains fat addition to nonobstructed and non dilated loop of colon. Previously mouth measured 1.3 cm on prior study and only contained fat. There is also a new fat containing hernia in the left anterior lateral abdominal wall that measures 2.3 cm in diameter patient also a cystic and solid mass involving the right kidney measuring 2.5 cm does not appear significantly changed from prior evidence of appendicitis, no evidence of bowel obstruction. MDM Narrative Medical decision making narrative: This is a 65-year-old female who presents with abdominal pain, nausea, no obstructive symptoms but has had prior hernias and had surgery in July. Patient's labs show acute kidney injury, hypokalemia, stable anemia and signs of dehydration. Lactate negative, cultures were obtained. Patient had CT abdomen pelvis was delayed by Trauma. It does show spigelian hernia with bowel but no obstructive changes patient has not been having any clinically obstructive changes, new significant ileum hernia, renal mass appears unchanged. Case was discussed with General surgery who states no intervention at this time, patient case was also discussed with hospitalist who is open to keeping patient for observation. Patient findings were discussed with her. She is quite frustrated this evening she has requested for narcotic pain medication and not received it. She has taken out her IV on her own without notifying staff, dressed herself and states that she is leaving. Patient did drive herself, approximately 4-5 hours since she had any IV narcotic pain medications and states that she is driving herself home this evening. She is aware of her renal mass she has not followed up for biopsy was encouraged to see her primary care, reviewed her findings and terms of her hernia, her lab findings she does take oral potassium daily and was encouraged to take an extra dose and have her potassium rechecked. She took her papers with her for discharge but refused to sign. Discharge Plan Departure Patient Disposition: Home Clinical Impression: Spigelian hernia, Mass of right kidney, SILVIA (acute kidney injury), Hypokalemia Activity Restrictions/Additional Instructions: You do have a new hernia present on your CT findings today. You do need to follow-up with the general surgeon regarding hernia. You also need to follow-up with your primary care physician so they can have the mass on your kidney biopsied. Your kidney function is decreased and your potassium is lower than normal. Please take an extra dose of potassium at home. You should have her potassium rechecked in the next 24 hours. You can continue your home medications. Return for persistent vomiting, worsening symptoms, black or bloody stools, hernias that become hard or are not reducible, syncope or passing out, new chest pain or shortness of breath or other new symptoms. Prescriptions: No Action Spiriva with HandiHaler 18 mcg capsule, w/inhalation device 1 cap inhalation DAILY Rx Instructions: puncture 1 cap using device; one dose = 2 inhalations pramipexole 0.75 mg tablet 0.75 mg PO DAILY ibuprofen 200 mg tablet 200 mg PO Q6H PRN (Reason: Pain (Scale Score 1-3)) gabapentin 600 mg tablet 600 mg PO TID Label Comments: 0700, 1400, 2100 acetaminophen 500 mg capsule 500 mg PO Q6H PRN (Reason: Pain (Scale Score 1-3)) Trintellix 20 mg tablet 20 mg PO DAILY Qty: 30 5RF valsartan 40 mg tablet 20 mg PO BID metoprolol succinate 25 mg tablet extended release 24 hr 25 mg PO BID torsemide 20 mg tablet 80 mg PO BID Label Comments: TAKE 2 TABLETS BY MOUTH IN THE MORNING AND 1 TABLET AT NIGHT quetiapine 25 mg tablet 25 mg PO BEDTIME MDD 50MG Qty: 40 0RF Rx Instructions: OK to repeat dose if not sleeping within 1 hour diazepam 5 mg tablet 5 mg PO TID PRN (Reason: anxiety) Qty: 42 0RF Rx Instructions: Temporary increase to TID dosing. Fill on or after 09/02/21. potassium chloride 20 mEq tablet extended release 10 meq PO DAILY PRN (Reason: Take w/lasix) Rx Instructions: Take w/lasix prn fluticasone propionate 50 mcg/actuation spray,suspension 1 spray intranasal BID Rx Instructions: administer into each nostril methocarbamol 750 mg tablet 750 mg PO TID PRN (Reason: Spasms) Qty: 90 3RF Rx Instructions: PRN epinephrine 0.3 mg/0.3 mL auto-injector 0.3 mg IM ONCE PRN (Reason: Allergic Reaction) Qty: 1 11RF sumatriptan succinate 100 mg tablet See Rx Instructions .ROUTE .COMPLEX Qty: 14 0RF Dose Instruction: TAKE 1 TABLET BY MOUTH ONCE AT ONSET OF MIGRAINE HEADACHE. MAY REPEAT IN 2 HOURS IF NO RELIEF. MAX OF 2 TABLETS PER DAY. Rx Instructions: TAKE 1 TABLET BY MOUTH ONCE AT ONSET OF MIGRAINE HEADACHE. MAY REPEAT IN 2 HOURS IF NO RELIEF. MAX OF 2 TABLETS PER DAY. montelukast 10 mg tablet See Rx Instructions .ROUTE .COMPLEX Qty: 90 0RF Dose Instruction: TAKE 1 TABLET BY MOUTH AT BEDTIME NEEDED FOR ALLERGY SYMPTOMS Rx Instructions: TAKE 1 TABLET BY MOUTH AT BEDTIME NEEDED FOR ALLERGY SYMPTOMS lidocaine 5 % Ointment 1 applic TOPICAL TID PRN (Reason: pain) ketotifen fumarate [Zaditor] 0.025 % (0.035 %) Drops 1 drp OPHTHALMIC (EYE) BID sennosides [senna] 8.6 mg Tablet 17.2 mg PO BEDTIME PRN (Reason: Constipation) diphenhydramine HCl [Benadryl] 25 mg Capsule 75 mg PO DAILY PRN (Reason: Allergy Symptoms) omeprazole 40 mg Capsule,Delayed Release(Dr/Ec) 40 mg PO BID ondansetron 8 mg Tablet,Disintegrating 8 mg PO Q8H PRN (Reason: Nausea) methylprednisolone 4 mg tablet 4 mg PO DAILY 3 Days Qty: 3 0RF haloperidol 2 mg tablet 2 mg PO BEDTIME PRN (Reason: anxiety) Qty: 10 0RF Referrals: Maxim Parks MD [Primary Care Provider] - Visit Report Forms: Patient Portal/API
--- NOTE | 2021-08-26 00:17 | DI.CT.S_ITS ---
PROCEDURE: CT ABDOMEN PELVIS W CON INDICATIONS: +n/abd pain, hx renal mass, hernia TECHNIQUE: After the administration of oral and IV contrast, axial sections were acquired from the lung bases to the pubic symphysis. Coronal and sagittal reformats were performed. For radiation dose reduction, the following was used: automated exposure control, adjustment of mA and/or kV according to patient size. COMPARISON: [facility], CT, CT ABDOMEN PELVIS WO CON, 07/14/2020, 10:51. [facility], CT, CT CHEST ABD PEL W CON, 07/18/2021, 2:33. [facility], CT, CT ABDOMEN PELVIS WITH CONTRAST, 08/17/2021, 20:13. FINDINGS: Image quality: Excellent. Lung bases: Bibasilar atelectasis. Small hiatal hernia. Heart: Mildly enlarged. No pericardial effusion. ABDOMEN: Liver: Mild hepatomegaly. Gallbladder: Unremarkable. Biliary ducts: Unremarkable. Pancreas: Unremarkable. Spleen: Unremarkable. Adrenal Glands: Unremarkable. Kidneys and Ureters: There is a 2.1 cm heterogeneous mass in the anterior cortex of the superior pole of the right kidney, suspicious for renal cell carcinoma. Kidneys are normal in size and enhancement. No stones or hydronephrosis. Stomach and Bowel: Stomach, small bowel loops, and colon are unremarkable. Normal appendix. No findings to suggest small bowel obstruction. Peritoneum: No abnormal intraperitoneal fluid. No free air. Ventral Wall: There are spigelian hernias bilaterally. The right spigelian hernia contains part of hepatic flexure of colon and omental fat. It appears unchanged in size since 08/17/2021, but there is less bowel loop within the hernia sac, indicating that the hernia is partially reducible. The left spigelian hernia contains only omental fat and appears minimally changed in size compared to 08/17/2021. Abdominal Nodes: No retroperitoneal or mesenteric adenopathy by size criteria. Vessels: Aorta and inferior vena cava are normal in size. PELVIS: Pelvic Organs: Unremarkable. Bladder: Unremarkable. Pelvic Nodes: No enlarged lymph nodes. Miscellaneous: Small fat containing inguinal hernias are seen. Bones: Old left femoral neck fracture with internal fixation. Degenerative changes are noted in lumbar spine IMPRESSION: 1. Bilateral spigelian hernia containing a short segment of colon (right) and omentum (left). 2. Small hiatal hernia. 3. No acute inflammatory process in abdomen or pelvis. 4. A 2.1 cm heterogeneous mass in the right kidney, suspicious for renal cell carcinoma. Dictated by: Rosanne Alex M.D. on 08/26/2021 at 7:48 Approved by: Rosanne Alex M.D. on 08/26/2021 at 8:07
[2021-08-26] MEDS: SODIUM CHLORIDE 0.9% 1,000 ML 500 ML IV (00:30)
[2021-08-26] MEDS: fentaNYL 100 MCG/2 ML INJ 25 MCG IV (00:30)
[2021-08-26] MEDS: methylPREDNISolone 125 MG/2 ML VIAL IV (00:41)
[2021-08-26] MEDS: diphenhydrAMINE 50 MG/ML VIAL IV (00:41)
[2021-08-26 01:04] LABS: Lactate (Lactic Acid) 1.6 mmol/L (0.7-2.1)
--- NOTE | 2021-08-26 01:05 | PC.NURSE ---
Pt ambulated to and form the restroom independently, denies lightheadedness.
[2021-08-26 01:10] LABS: COVID19 -Nasal RAPID Negative (Negative)
[2021-08-26 01:21] LABS: Procalcitonin 0.06 ng/mL (<0.5)
--- NOTE | 2021-08-26 02:04 | PC.NURSE ---
Pt back from CT, now calls nurse into room for concern for anaphylaxis, it's hard to breath. No wheezing present on auscultation in upper airway, Pt has no retractions, O2 93% on RA, pt talking in full sentences. Pt then asking for more fentanyl and some water. Pt educated that if she is indeed having an anaphylaxis, it is not advised that she receive narcotic pain medication that can reduce her drive to breathe, and it is also not advised to drink anything. Provider notified of pt concern, provider to see pt when able. Pt then stating well it isn't all that bad, just a little chest pressure.
--- NOTE | 2021-08-26 03:04 | PC.NURSE ---
Pt made comment to EMERGENCY DEPARTMENT RN If I don't get somthing for pain, I'm leaving. Provider aware of this.
--- NOTE | 2021-08-26 04:04 | PC.NURSE ---
Pt not wanting to be on monitors at this time. Pt not plcaed on monitor so pt can get up and move around room if needed to help her fibromyalgias
--- NOTE | 2021-08-26 04:08 | PC.NURSE ---
Pt observed sleeping. Pt left alone at this time.
--- NOTE | 2021-08-26 04:40 | PC.NURSE ---
Pt ripped out her own IV. Site dressed.
--- NOTE | 2021-08-26 04:45 | PC.NURSE ---
Pt left ER and told front end developer javascript html css staff I didn't want to leave, but they wouldn't give me pain killers. Pt then ambulated without issue from the ER.
== END 2021-08-26 04:40 | disposition home or self-care (01) ==
PROVIDERS: Emergency Provider Emergency Medicine; PCP Family Medicine; Referring Provider Emergency Medicine
DX: K43.9 Ventral hernia without obstruction or gangrene (principal); N28.89 Other specified disorders of kidney and ureter; N17.9 Acute kidney failure, unspecified; E87.6 Hypokalemia; D64.9 Anemia, unspecified; E86.0 Dehydration; Z20.822 Contact with and (suspected) exposure to COVID-19
CPT/HCPCS: 36415; 74177; 80053; 81003; 81015; 83605; 83690; 84145; 85025; 87040; 87086; 87635; 96361; 96374; 96375; 99284; C9803; J1200; J2405; J2930; J3010; Q9967

== ENCOUNTER 2021-08-31 18:44 | Emergency (ER) | payer OTHER, MEDICAID, SELFPAY ==
[2021-06-04 16:30] VITALS: BMI 39.6
[2021-08-31 19:06] VITALS: BP 114/56; PULSE 73; RESP 22; TEMP 36.1; O2SAT 94; BMI 35.4
--- NOTE | 2021-08-31 19:17 | ED.ABDPAIN ---
HPI - Abdominal Pain General Chief Complaint: Abdominal Pain Stated Complaint: Hernia rt. lower abd. pain Time Seen by Provider: 08/31/21 19:14 Mode of arrival: Family Vehicle History of Present Illness HPI narrative: 65-year-old female nonsmoker with history known abdominal hernias, right kidney mass, kidney injury, anxiety presents for evaluation of worsening right lower quadrant pain. She apparently has been seen and evaluated by surgery and Heather Ahuja and is in the process of being scheduled for surgical repair. Her pain is sever and worsening and she states it is worse when she moves while it improves with rest. It is most severe in the right lower quadrant and she denies any radiation. She is had no fever or chills and denies nausea or vomiting. She denies any dysuria, frequency or urgency. Related Data Home Medications Medication Instructions Recorded Confirmed sennosides 8.6 mg tablet (senna) 17.2 mg PO BEDTIME PRN Constipation 09/20/18 08/19/21 potassium chloride 20 mEq 10 meq PO DAILY PRN Take w/lasix 10/29/18 08/19/21 tablet,extended release diphenhydramine HCl 25 mg capsule 75 mg PO DAILY PRN Allergy Symptoms 10/26/19 08/19/21 (Benadryl) omeprazole 40 mg capsule,delayed 40 mg PO BID 02/10/20 08/19/21 release lidocaine 5 % topical ointment 1 applic topical TID PRN pain 02/24/20 08/19/21 ketotifen fumarate 0.025 % (0.035 1 drp ophthalmic (eye) BID 03/02/20 08/19/21 %) eye drops (Zaditor) fluticasone propionate 50 1 spray intranasal BID 04/02/20 08/19/21 mcg/actuation nasal spray,suspension ondansetron 8 mg disintegrating 8 mg PO Q8H PRN Nausea 06/29/20 08/19/21 tablet metoprolol succinate 25 mg 25 mg PO BID 01/27/21 08/19/21 tablet,extended release 24 hr valsartan 40 mg tablet 20 mg PO BID 01/27/21 08/19/21 acetaminophen 500 mg capsule 500 mg PO Q6H PRN Pain (Scale 04/11/21 08/19/21 Score 1-3) gabapentin 600 mg tablet 600 mg PO TID 04/11/21 08/19/21 ibuprofen 200 mg tablet 200 mg PO Q6H PRN Pain (Scale 04/11/21 08/19/21 Score 1-3) pramipexole 0.75 mg tablet 0.75 mg PO DAILY 04/11/21 08/19/21 tiotropium bromide 18 mcg capsule 1 cap inhalation DAILY 04/11/21 08/19/21 with inhalation device (Spiriva with HandiHaler) torsemide 20 mg tablet 80 mg PO BID 08/19/21 08/19/21 Previous Rx's Medication Instructions Recorded methocarbamol 750 mg tablet 750 mg PO TID PRN Spasms #90 tabs 09/29/19 epinephrine 0.3 mg/0.3 mL 0.3 mg (0.3 mL) IM ONCE PRN 01/01/20 injection, auto-injector Allergic Reaction #1 ea Trintellix 20 mg tablet 20 mg PO DAILY #30 tabs 04/11/21 (vortioxetine) methylprednisolone 4 mg tablet 4 mg PO DAILY 3 days #3 tabs 06/06/21 montelukast 10 mg tablet See Rx Instructions .Route 07/26/21 .COMPLEX #90 tabs sumatriptan succinate 100 mg tablet See Rx Instructions .Route 07/26/21 .COMPLEX #14 tabs haloperidol 2 mg tablet 2 mg PO BEDTIME PRN anxiety #10 08/10/21 tabs quetiapine 25 mg tablet 25 mg PO BEDTIME #40 tabs 08/19/21 diazepam 5 mg tablet 5 mg PO TID PRN anxiety #42 tabs 08/29/21 Allergies Allergy/AdvReac Type Severity Reaction Status Date / Time Iodinated Contrast Media Allergy Severe Difficulty Verified 08/31/21 19:09 Breathing iodine Allergy Severe Difficulty Verified 08/31/21 19:09 Breathing latex Allergy Severe Rash Verified 08/31/21 19:09 morphine [MORPHINE] Allergy Severe Anaphylaxis Verified 08/31/21 19:09 Penicillins [PENICILLINS] Allergy Severe Anaphylaxis Verified 08/31/21 19:09 Sulfa (Sulfonamide Allergy Severe RASH Verified 08/31/21 19:09 Antibiotics) [SULFA (SULFONAMIDE ANTIBIOTICS)] azithromycin Allergy Intermediate Rash Verified 08/31/21 19:09 [From ZITHROMAX Z-MARILYN] cefuroxime [From Ceftin] Allergy Intermediate Rash Verified 08/31/21 19:09 sulfamethoxazole Allergy Intermediate RASH Verified 08/31/21 19:09 [From SEPTRA] trimethoprim [From SEPTRA] Allergy Intermediate RASH Verified 08/31/21 19:09 ciprofloxacin [From Cipro] Allergy Pt does Verified 08/31/21 19:09 not remember reaction Corticosteroids Allergy Swelling Verified 08/31/21 19:09 (Glucocorticoids) of Lip/Tongue/Throat cephalexin [From Keflex] AdvReac Severe Fever, Verified 08/31/21 19:09 Asthma, Tachycardia prednisone AdvReac Severe nausea and Verified 08/31/21 19:09 feels very weak, and axious verapamil AdvReac Intermediate Asthma Verified 08/31/21 19:09 symptoms zonisamide AdvReac Intermediate Asthma Verified 08/31/21 19:09 symptoms Review of Systems Review of Systems Narrative: GENERAL: Denies chills, fatigue, malaise, fever, sweats. HEENT: Denies sinus pain, ear pain, sore throat, difficulty swallowing, dizziness. RESPIRATORY: Denies dyspnea, cough, wheezing, hemoptysis, sputum. CARDIOVASCULAR: Denies chest pain, palpitations, orthopnea, edema, GASTROINTESTINAL: See HPI : Denies dysuria, frequency, incontinence, hematuria, urinary retention. MUSCULOSKELETAL: denies weakness, joint pain, or bony pain SKIN: Denies rash, skin lesions, or other NEUROLOGIC: Denies weakness, headache, numbness, change in speech, confusion, seizures, incoordination. PSYCHIATRIC: No concerning psychosocial issues. 12 point review of systems is negative except for those stated above Patient History Medical History Anemia Anxiety Asthma Chronic back pain Chronic cough Depression Femur fracture, left Fibromyalgia Fractures GERD (gastroesophageal reflux disease) Hiatal hernia Recurrent sinusitis Venous insufficiency (chronic) (peripheral) Surgical History Anesthesia History of eye surgery (~1973) History of foot surgery History of hysterectomy (~1979) History of shoulder surgery (~2011) History of tonsillectomy (~1975) Hx of bilateral cataract extraction Family History Mother Heart disease Sister Heart disease Social History marital status: number of children: 1 household members: none lives independently: Yes caregiver/support person: Yes (3 afternoons per week) pets and animals: Yes occupational status: disabled Smoking Status: Never smoker alcohol intake: never substance use type: does not use Smoking Status: Never smoker alcohol intake frequency: holidays/special occasions only Substance Use Type: does not use Exam Narrative Exam Narrative: GENERAL: [65] year old patient appears stated age. Well-developed patient, in mild distress. Obviously uncomfortable, rubbing her abdomen HEAD: Atraumatic. Normocephalic. EYES: Pupils equal round and reactive. Extraocular motions intact. No scleral icterus. No injection or drainage. ENT: Nose without bleeding, purulent drainage. Throat without erythema, tonsillar hypertrophy or exudate. Airway patent. NECK: Trachea midline. Non tender CARDIOVASCULAR: Regular rate and rhythm without murmurs, gallops, or rubs. RESPIRATORY: Clear to auscultation. Breath sounds equal bilaterally. No wheezes, rales, or rhonchi. GASTROINTESTINAL: Abdomen soft, tender in the right lower quadrant, nondistended. EXTREMITIES: No edema or joint tenderness. BACK: Nontender without deformity or crepitance. No flank tenderness. NEURO: AOx3. SKIN: No rash or erythema of visible areas Initial Vital Signs Initial Vital Signs: Vital Signs Temperature 97 F L 08/31/21 19:06 Pulse Rate 73 08/31/21 19:06 Respiratory Rate 22 08/31/21 19:06 Blood Pressure 114/56 L 08/31/21 19:06 Pulse Oximetry 94 08/31/21 19:06 Oxygen Delivery Method 08/31/21 19:06 Course Orders Ordered: ED Orders 08/31/21 20:56 CT abdomen pelvis w con Stat Discontinued Medications Diphenhydramine HCl (Diphenhydramine 50 Mg/Ml Vial) 25 mg IV NOW ONE Stop: 08/31/21 19:15 Last Admin: 08/31/21 20:48 Dose: 25 mg Documented By: MACEY Famotidine (Famotidine 20 Mg/2 Ml Vial) 20 mg IV NOW ZHANG Last Admin: 08/31/21 20:48 Dose: 20 mg Documented By: MACEY Hydromorphone HCl (Hydromorphone 0.5 Mg Inj) 0.5 mg IV NOW ONE Stop: 08/31/21 21:21 Last Admin: 08/31/21 21:30 Dose: 0.5 mg Documented By: MIRIAM Hydromorphone HCl (Hydromorphone 0.5 Mg Inj) 0.5 mg IV NOW ONE Stop: 08/31/21 23:36 Last Admin: 08/31/21 23:40 Dose: 0.5 mg Documented By: MIRIAM Sodium Chloride (Normal Saline 0.9%) 1,000 mls @ 150 mls/hr IV CONT ZHANG Last Admin: 08/31/21 20:47 Dose: 150 mls/hr Documented By: MACEY Methylprednisolone (Methylprednisolone 125 Mg/2 Ml Vial) 125 mg IV NOW ONE Stop: 08/31/21 19:15 Last Admin: 08/31/21 20:48 Dose: 125 mg Documented By: MACEY Ondansetron HCl (Ondansetron 4 Mg/2 Ml Inj) 4 mg IV NOW ONE Stop: 08/31/21 19:15 Last Admin: 08/31/21 20:48 Dose: 4 mg Documented By: MACEY Consultations Consultation #1: discussed with dish up person Gen Surg (Jt), no surgical indications. Able to review [facility] records and Dr. Louis states not surgical given BMI, but has referred to urology for evaluation of renal mass first. Vital Signs Vital signs: Vital Signs - 8 hr 09/01/21 00:35 Pulse Rate 77 Respiratory Rate 20 Blood Pressure 124/64 Pulse Oximetry 99 Oxygen Delivery Method Room Air MDM - Abdominal Pain Lab Data Result diagrams: 08/31/21 19:25 08/31/21 19:25 Labs: Lab Results 08/31/21 08/31/21 08/31/21 Range/Units 19:25 19:25 19:25 WBC 7.3 (4.5-11.0) X10^3/uL RBC 4.17 (4.0-5.2) X10^6/uL Hgb 11.1 L (12.0-16.0) g/dL Hct 34.0 L (36-46) % MCV 81.4 (80-100) fL MCH 26.6 (26-34) PG MCHC 32.6 (30-36) % RDW 16.6 H (11.6-14.8) % Plt Count 290 (150-400) X10^3/uL Neut % (Auto) 56.8 (50-75) % Lymph % (Auto) 30.9 (25-40) % [place] % (Auto) 8.2 (3-14) % Eos % (Auto) 2.7 (2-4) % Baso % (Auto) 1.4 (0-2) % Neut # (Auto) 4100 (1177-9418) /uL Lymph # (Auto) 2300 (8595-5764) /uL [place] # (Auto) 600 (0-900) /uL Eos # (Auto) 200 (0-450) /uL Baso # (Auto) 100 (0-100) /uL Sodium 136 L (137-145) mmol/L Potassium 3.4 (3.4-5.1) mmol/L Chloride 101 (98-107) mmol/L Carbon Dioxide 31 (22-32) mmol/L BUN 27 H (7-17) mg/dL Creatinine 1.13 H (0.52-1.04) mg/dL Estimated GFR 54 L (>60) mL/min BUN/Creatinine Ratio 23.9 H (6-22) Glucose 111 H (80-110) mg/dL Lactate 1.0 (0.7-2.1) mmol/L Calcium 9.2 (8.4-10.2) mg/dL Total Bilirubin 0.3 (0.2-1.3) mg/dL AST 34 (14-36) IU/L ALT 20 (<35) IU/L Alkaline Phosphatase 119 (38-126) U/L Total Protein 7.0 (6.3-8.2) g/dL Albumin 4.1 (3.5-5.0) g/dL Globulin 2.9 (1.7-4.1) g/dL Albumin/Globulin Ratio 1.4 (1.0-2.8) Lipase 135 (23-300) U/L Imaging Data CT scan - abdomen/pelvis: Radiologist's Impression: [address] [id number] Scan ReportSigned Patient: Sreekanth Paniagua [facility]#: [id number]: 1Acct:[id number]/Sex: 80 / MDate of Service: 08/31/21Loc: EDAccession Number: [id number] Procedure: CT angio chest PE protocol Ordering Provider: Gerson De Jesus D.O. PROCEDURE: CT ANGIO CHEST PE PROTOCOL INDICATIONS: chest pain, SOB, elevated Dimer, hospitalizations TECHNIQUE: After the administration of intravenous contrast, 2 mm thick sections acquired from the pulmonary apices to the posterior costophrenic angles. 3-dimensional maximum intensity projection (MIP) coronal and sagittal reformats were then acquired through the thorax. For radiation dose reduction, the following was used: automated exposure control, adjustment of mA and/or kV according to patient size. COMPARISON: None. FINDINGS: Image quality: Excellent. Pulmonary arteries: Pulmonary arteries are normal in size, and demonstrate no intraluminal filling defects to suggest central pulmonary embolism. Lower Neck: No lymphadenopathy by size criteria. Thyroid: Visualized thyroid demonstrates no discrete nodules. Axillae: No lymphadenopathy by size criteria. Chest Wall: Unremarkable. Bones: Visualized osseous structures demonstrate no suspicious lesions. Lungs and Airways: No acute consolidation. There is atelectasis and scarring in the lungs bilaterally. No suspicious pulmonary nodules. The trachea and central airways are patent. Pleura: No pneumothorax or pleural effusions. Heart: Heart size is markedly enlarged. No pericardial effusion. Thoracic Vessels: The aorta and pulmonary arteries are normal in size. Mediastinum and Bessie: No lymphadenopathy by size criteria. Esophagus: No wall thickening. No hiatal hernia. Abdomen: Visualized upper abdominal solid organs appear normal in the early arterial phase of enhancement. IMPRESSION: 1. No evidence of pulmonary embolism. 2. No acute airspace consolidation. 3. Marked cardiomegaly. Dictated by: Abimael Lyon M.D. on 08/31/2021 at 22:25 Approved by: Abimael Lyon M.D. on 08/31/2021 at 22:28 [facility] Narrative Medical decision making narrative: Patient's pain is well controlled, there is no evidence of strangulation or incarcerated hernia. She is not septic, pain is well controlled as stated and she is tolerating orals. She has been seen multiple times recently including within the last week at her surgeon in [place] who was encouraging the patient to follow with and submitted a referral to Urology to pursue the renal mass. At this point time she continues to be a non surgical candidate for her hernia given her BMI. Patient given return precautions and questions answered to her apparent satisfaction Discharge Plan Departure Patient Disposition: Home Clinical Impression: Hernia of anterior abdominal wall, Renal mass Instructions: Abdominal Hernia Activity Restrictions/Additional Instructions: *You have been diagnosed with [bilateral abdominal hernias without evidence of bowel obstruction or strangulation. This is essentially unchanged from recent CT scans. Additionally, there is a concerning mass on your kidney and it is important for you to follow with Urology as requested by your surgeon Dr. Louis] *What to do: *Please continue to take your regular medications as directed. [ ] New medication prescriptions sent to your pharmacy: [ ] [ ] New medication written as a paper prescription [ x] No new medications given *Please follow up with urology as previously discussed with Dr. Louis, call for an appointment. Let them know you were seen in the Emergency Department and that we ask that you be seen in follow up for evaluation of your renal mass. * please avoid situations that have the potential to worsen your hernia such as heavy lifting or straining on the toilet. *Return to Emergency Department if you should have any new, worsening or concerning symptoms Prescriptions: No Action Spiriva with HandiHaler 18 mcg capsule, w/inhalation device 1 cap inhalation DAILY Rx Instructions: puncture 1 cap using device; one dose = 2 inhalations pramipexole 0.75 mg tablet 0.75 mg PO DAILY ibuprofen 200 mg tablet 200 mg PO Q6H PRN (Reason: Pain (Scale Score 1-3)) gabapentin 600 mg tablet 600 mg PO TID Label Comments: 0700, 1400, 2100 acetaminophen 500 mg capsule 500 mg PO Q6H PRN (Reason: Pain (Scale Score 1-3)) Trintellix 20 mg tablet 20 mg PO DAILY Qty: 30 5RF valsartan 40 mg tablet 20 mg PO BID metoprolol succinate 25 mg tablet extended release 24 hr 25 mg PO BID torsemide 20 mg tablet 80 mg PO BID Label Comments: TAKE 2 TABLETS BY MOUTH IN THE MORNING AND 1 TABLET AT NIGHT quetiapine 25 mg tablet 25 mg PO BEDTIME MDD 50MG Qty: 40 0RF Rx Instructions: OK to repeat dose if not sleeping within 1 hour diazepam 5 mg tablet 5 mg PO TID PRN (Reason: anxiety) Qty: 42 0RF Rx Instructions: Temporary increase to TID dosing. Fill on or after 09/02/21. potassium chloride 20 mEq tablet extended release 10 meq PO DAILY PRN (Reason: Take w/lasix) Rx Instructions: Take w/lasix prn fluticasone propionate 50 mcg/actuation spray,suspension 1 spray intranasal BID Rx Instructions: administer into each nostril methocarbamol 750 mg tablet 750 mg PO TID PRN (Reason: Spasms) Qty: 90 3RF Rx Instructions: PRN epinephrine 0.3 mg/0.3 mL auto-injector 0.3 mg IM ONCE PRN (Reason: Allergic Reaction) Qty: 1 11RF sumatriptan succinate 100 mg tablet See Rx Instructions .ROUTE .COMPLEX Qty: 14 0RF Dose Instruction: TAKE 1 TABLET BY MOUTH ONCE AT ONSET OF MIGRAINE HEADACHE. MAY REPEAT IN 2 HOURS IF NO RELIEF. MAX OF 2 TABLETS PER DAY. Rx Instructions: TAKE 1 TABLET BY MOUTH ONCE AT ONSET OF MIGRAINE HEADACHE. MAY REPEAT IN 2 HOURS IF NO RELIEF. MAX OF 2 TABLETS PER DAY. montelukast 10 mg tablet See Rx Instructions .ROUTE .COMPLEX Qty: 90 0RF Dose Instruction: TAKE 1 TABLET BY MOUTH AT BEDTIME NEEDED FOR ALLERGY SYMPTOMS Rx Instructions: TAKE 1 TABLET BY MOUTH AT BEDTIME NEEDED FOR ALLERGY SYMPTOMS lidocaine 5 % Ointment 1 applic TOPICAL TID PRN (Reason: pain) ketotifen fumarate [Zaditor] 0.025 % (0.035 %) Drops 1 drp OPHTHALMIC (EYE) BID sennosides [senna] 8.6 mg Tablet 17.2 mg PO BEDTIME PRN (Reason: Constipation) diphenhydramine HCl [Benadryl] 25 mg Capsule 75 mg PO DAILY PRN (Reason: Allergy Symptoms) omeprazole 40 mg Capsule,Delayed Release(Dr/Ec) 40 mg PO BID ondansetron 8 mg Tablet,Disintegrating 8 mg PO Q8H PRN (Reason: Nausea) methylprednisolone 4 mg tablet 4 mg PO DAILY 3 Days Qty: 3 0RF haloperidol 2 mg tablet 2 mg PO BEDTIME PRN (Reason: anxiety) Qty: 10 0RF Referrals: Maxim Parks MD [Primary Care Provider] - Visit Report Forms: Patient Portal/API
[2021-08-31 19:45] LABS: Add Manual Diff / Slide Review NO; Basophils Absolute Auto 100 /uL (0-100); Basophils Percent Auto 1.4 % (0-2); Eosinophils Absolute Auto 200 /uL (0-450); Eosinophils Percent Auto 2.7 % (2-4); Hemoglobin 11.1 g/dL (12.0-16.0); Lymphocytes Absolute Auto 2300 /uL (1100-4500); Lymphocytes Percent Auto 30.9 % (25-40); Mean Corpuscular HGB Conc 32.6 % (30-36); Mean Corpuscular Hemoglobin 26.6 PG (26-34); Mean Corpuscular Volume 81.4 fL (80-100); Monocytes Absolute Auto 600 /uL (0-900); Monocytes Percent Auto 8.2 % (3-14); Neutrophils Absolute Auto 4100 /uL (1500-7000); Neutrophils Percent Auto 56.8 % (50-75); Platelet Count 290 X10^3/uL (150-400); Red Blood Cell Count 4.17 X10^6/uL (4.0-5.2); Red Cell Distribution Width 16.6 % (11.6-14.8); White Blood Cell Count 7.3 X10^3/uL (4.5-11.0)
[2021-08-31 19:51] LABS: Alanine Aminotransferase 20 IU/L (<35); Albumin 4.1 g/dL (3.5-5.0); Albumin Globulin Ratio 1.4 (1.0-2.8); Alkaline Phosphatase 119 U/L (38-126); Aspartate Aminotransferase 34 IU/L (14-36); BUN Creatinine Ratio 23.9 (6-22); Bilirubin Total 0.3 mg/dL (0.2-1.3); Blood Urea Nitrogen 27 mg/dL (7-17); Calcium 9.2 mg/dL (8.4-10.2); Carbon Dioxide 31 mmol/L (22-32); Chloride 101 mmol/L (98-107); Estimated Glomerular Filt Rate 54 mL/min (>60); Globulin 2.9 g/dL (1.7-4.1); Glucose 111 mg/dL (80-110); HEMOLYSIS < 15 (0-50); Lipase 135 U/L (23-300); Potassium 3.4 mmol/L (3.4-5.1); Sodium 136 mmol/L (137-145)
[2021-08-31] MEDS: SODIUM CHLORIDE 0.9% 1,000 ML 150 ML IV (20:47)
--- NOTE | 2021-08-31 20:47 | PC.NURSE ---
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
[2021-08-31] MEDS: diphenhydrAMINE 50 MG/ML VIAL 25 MG IV (20:48)
[2021-08-31] MEDS: FAMOTIDINE 20 MG/2 ML VIAL IV (20:48)
[2021-08-31] MEDS: methylPREDNISolone 125 MG/2 ML VIAL IV (20:48)
[2021-08-31] MEDS: ONDANSETRON 4 MG/2 ML INJ IV (20:48)
--- NOTE | 2021-08-31 20:56 | DI.CT.S_ITS ---
PROCEDURE: CT ABDOMEN PELVIS W CON INDICATIONS: severe pain, history of hernia, worse pain TECHNIQUE: After the administration of IV contrast, axial sections were acquired from the lung bases to the pubic symphysis. Coronal and sagittal reformats were performed. For radiation dose reduction, the following was used: automated exposure control, adjustment of mA and/or kV according to patient size. COMPARISON: [facility], CT, CT ABDOMEN PELVIS WITH CONTRAST, 08/17/2021, 20:13. [facility], CT, CT ABDOMEN PELVIS W CON, 08/26/2021, 1:23. FINDINGS: Image quality: There is mild motion artifact. Lung bases: There is mild dependent atelectasis bilaterally. Heart: Heart is normal in size. A small hiatal hernia is redemonstrated with associated minimal paraesophageal fluid. ABDOMEN: Liver: No mass lesion. Gallbladder: Within normal limits without calcified gallstones. Biliary ducts: No biliary ductal dilatation. Pancreas: Unremarkable. Spleen: Normal in size. Adrenal Glands: No adrenal nodules. Kidneys and Ureters: No hydronephrosis. A heterogeneous enhancing right renal masses redemonstrated measuring up to approximately 2.3 x 2.1 cm in transverse dimension. Findings again likely represent renal cell carcinoma. Stomach and Bowel: Stomach, small bowel loops, and colon are normal in caliber and wall thickness. The appendix is normal in appearance. There are few colonic diverticula without acute diverticulitis. Peritoneum: No abnormal intraperitoneal fluid. No free air. Ventral Wall: Bilateral spigelian hernias are redemonstrated with segmental herniation of the ascending colon again noted on the right. No evidence of associated bowel obstruction or strangulation. On the left, there is herniation of omental fat without bowel herniation. Abdominal Nodes: No retroperitoneal or mesenteric adenopathy by size criteria. Vessels: Aorta and inferior vena cava are normal in size. PELVIS: Pelvic Organs: Unremarkable. Bladder: Unremarkable. Pelvic Nodes: No enlarged lymph nodes. Miscellaneous: No inguinal hernias are seen. Bones: Postsurgical changes redemonstrated in the proximal left femur consistent with prior ORIF of a left femoral neck fracture. Visualized osseous structures demonstrate no suspicious focal lesions. IMPRESSION: 1. Bilateral spiculated hernias redemonstrated with a herniated segment of the ascending colon again noted on the right. No evidence of associated bowel obstruction or strangulation. 2. Small hiatal hernia with minimal associated fat stranding or fluid again noted. 3. Right renal mass again likely representing renal cell carcinoma redemonstrated. Dictated by: Abimael yLon M.D. on 08/31/2021 at 23:12 Approved by: Abimael Lyon M.D. on 08/31/2021 at 23:17
[2021-08-31] MEDS: HYDROMORPHONE 0.5 MG INJ IV ×2 (21:30→23:40)
[2021-09-01 00:35] VITALS: BP 124/64; PULSE 77; RESP 20; O2SAT 99
== END 2021-09-01 00:35 | disposition home or self-care (01) ==
PROVIDERS: Emergency Provider Emergency Medicine; PCP Family Medicine
DX: K43.9 Ventral hernia without obstruction or gangrene (principal); N28.89 Other specified disorders of kidney and ureter; R07.9 Chest pain, unspecified
CPT/HCPCS: 36415; 74177; 80053; 83605; 83690; 85025; 96361; 96374; 96375; 96376; 99284; J1170; J1200; J2405; J2930; Q9967

== ENCOUNTER 2021-09-07 12:23 | Emergency (ER) | payer MEDICARE, MEDICAID, SELFPAY ==
[2021-06-04 16:30] VITALS: BMI 39.6
[2021-09-07] VITALS (9 sets, daily range): BP systolic 124–128; BP diastolic 58–64; PULSE 71–87; RESP 17–24; TEMP 36.4; O2SAT 93–97; BMI 35.4
--- NOTE | 2021-09-07 15:34 | PC.NURSE ---
Expiratory wheezes throughout left posterior lung. Right side clear. Pt reports hx of asthma and recent inhaler use.
[2021-09-07] MEDS: ALBUTEROL/IPRATROPIUM 3 ML AMPUL INH (16:58)
--- NOTE | 2021-09-07 17:02 | ED.ABDPAIN ---
HPI - Abdominal Pain General Chief Complaint: Abdominal Pain Stated Complaint: 2 Large Hernias/Kidney Mass Time Seen by Provider: 09/07/21 16:44 Source: patient Mode of arrival: Ambulatory History of Present Illness HPI narrative: Patient is a 65-year-old female who is well known to this facility and myself. Usually her for breathing difficulties however she has bilateral abdominal hernias and a known renal mass. She was seen and evaluated here last week on 08/31/2021 is were she had an abdominal CT her 2nd for the month, which confirmed bilateral spiculated hernias the ascending colon without evidence of bowel obstruction and a right renal mass. Mom apparently records at [facility] states that she is being seen or least Dr. Louis has been consulted in regards to surgery however due to BMI she is not a surgical candidate. Patient is here today she states at the request of her primary care provider to see when she can have surgery. She has no increased abdominal pain she has no nausea vomiting she is having regular bowel movements she. She says she was not having regular bowel movements but started taking her herbs and now is having regular bowel movements. She frequently has respiratory issues but says she is not having chest pain or shortness of breath. However O2 sat started dropping she received an albuterol treatment and is now feeling better Related Data Home Medications Medication Instructions Recorded Confirmed sennosides 8.6 mg tablet (senna) 17.2 mg PO BEDTIME PRN Constipation 09/20/18 08/19/21 potassium chloride 20 mEq 10 meq PO DAILY PRN Take w/lasix 10/29/18 08/19/21 tablet,extended release diphenhydramine HCl 25 mg capsule 75 mg PO DAILY PRN Allergy Symptoms 10/26/19 08/19/21 (Benadryl) omeprazole 40 mg capsule,delayed 40 mg PO BID 02/10/20 08/19/21 release lidocaine 5 % topical ointment 1 applic topical TID PRN pain 02/24/20 08/19/21 ketotifen fumarate 0.025 % (0.035 1 drp ophthalmic (eye) BID 03/02/20 08/19/21 %) eye drops (Zaditor) fluticasone propionate 50 1 spray intranasal BID 04/02/20 08/19/21 mcg/actuation nasal spray,suspension ondansetron 8 mg disintegrating 8 mg PO Q8H PRN Nausea 06/29/20 08/19/21 tablet metoprolol succinate 25 mg 25 mg PO BID 01/27/21 08/19/21 tablet,extended release 24 hr valsartan 40 mg tablet 20 mg PO BID 01/27/21 08/19/21 acetaminophen 500 mg capsule 500 mg PO Q6H PRN Pain (Scale 04/11/21 08/19/21 Score 1-3) gabapentin 600 mg tablet 600 mg PO TID 04/11/21 08/19/21 ibuprofen 200 mg tablet 200 mg PO Q6H PRN Pain (Scale 04/11/21 08/19/21 Score 1-3) pramipexole 0.75 mg tablet 0.75 mg PO DAILY 04/11/21 08/19/21 tiotropium bromide 18 mcg capsule 1 cap inhalation DAILY 04/11/21 08/19/21 with inhalation device (Spiriva with HandiHaler) torsemide 20 mg tablet 80 mg PO BID 08/19/21 08/19/21 Previous Rx's Medication Instructions Recorded methocarbamol 750 mg tablet 750 mg PO TID PRN Spasms #90 tabs 09/29/19 epinephrine 0.3 mg/0.3 mL 0.3 mg (0.3 mL) IM ONCE PRN 01/01/20 injection, auto-injector Allergic Reaction #1 ea Trintellix 20 mg tablet 20 mg PO DAILY #30 tabs 04/11/21 (vortioxetine) methylprednisolone 4 mg tablet 4 mg PO DAILY 3 days #3 tabs 06/06/21 montelukast 10 mg tablet See Rx Instructions .Route 07/26/21 .COMPLEX #90 tabs sumatriptan succinate 100 mg tablet See Rx Instructions .Route 07/26/21 .COMPLEX #14 tabs haloperidol 2 mg tablet 2 mg PO BEDTIME PRN anxiety #10 08/10/21 tabs quetiapine 25 mg tablet 25 mg PO BEDTIME #40 tabs 08/19/21 diazepam 5 mg tablet 5 mg PO TID PRN anxiety #42 tabs 08/29/21 Allergies Allergy/AdvReac Type Severity Reaction Status Date / Time Iodinated Contrast Media Allergy Severe Difficulty Verified 09/07/21 12:25 Breathing iodine Allergy Severe Difficulty Verified 09/07/21 12:25 Breathing latex Allergy Severe Rash Verified 09/07/21 12:25 morphine [MORPHINE] Allergy Severe Anaphylaxis Verified 09/07/21 12:25 Penicillins [PENICILLINS] Allergy Severe Anaphylaxis Verified 09/07/21 12:25 Sulfa (Sulfonamide Allergy Severe RASH Verified 09/07/21 12:25 Antibiotics) [SULFA (SULFONAMIDE ANTIBIOTICS)] azithromycin Allergy Intermediate Rash Verified 09/07/21 12:25 [From ZITHROMAX Z-MARILYN] cefuroxime [From Ceftin] Allergy Intermediate Rash Verified 09/07/21 12:25 sulfamethoxazole Allergy Intermediate RASH Verified 09/07/21 12:25 [From SEPTRA] trimethoprim [From SEPTRA] Allergy Intermediate RASH Verified 09/07/21 12:25 ciprofloxacin [From Cipro] Allergy Pt does Verified 09/07/21 12:25 not remember reaction Corticosteroids Allergy Swelling Verified 09/07/21 12:25 (Glucocorticoids) of Lip/Tongue/Throat cephalexin [From Keflex] AdvReac Severe Fever, Verified 09/07/21 12:25 Asthma, Tachycardia prednisone AdvReac Severe nausea and Verified 09/07/21 12:25 feels very weak, and axious verapamil AdvReac Intermediate Asthma Verified 09/07/21 12:25 symptoms zonisamide AdvReac Intermediate Asthma Verified 09/07/21 12:25 symptoms Review of Systems Review of Systems Narrative: GENERAL: Denies chills, fatigue, malaise, fever, sweats, travel HEENT: Denies sinus pain, ear pain, sore throat, difficulty swallowing, neck pain RESPIRATORY: See HPI CARDIOVASCULAR: Denies chest pain, palpitations, orthopnea, edema GASTROINTESTINAL: See HPI : Denies dysuria, frequency, incontinence, hematuria, urinary retention, flank pain. MUSCULOSKELETAL: Denies weakness, joint pain, or bony pain SKIN: No rash, no erythema, no pruritus NEUROLOGIC: Denies weakness, dizziness, headache, numbness, change in speech, confusion PSYCHIATRIC: No concerning psychosocial issues. 12 point review of systems is negative except for those stated above and HPI Patient History Medical History Anemia Anxiety Asthma Chronic back pain Chronic cough Depression Femur fracture, left Fibromyalgia Fractures GERD (gastroesophageal reflux disease) Hiatal hernia Recurrent sinusitis Venous insufficiency (chronic) (peripheral) Surgical History Anesthesia History of eye surgery (~1973) History of foot surgery History of hysterectomy (~1979) History of shoulder surgery (~2011) History of tonsillectomy (~1975) Hx of bilateral cataract extraction Family History Mother Heart disease Sister Heart disease Social History marital status: number of children: 1 household members: none lives independently: Yes caregiver/support person: Yes (3 afternoons per week) pets and animals: Yes occupational status: disabled Smoking Status: Never smoker alcohol intake: never substance use type: does not use Smoking Status: Never smoker alcohol intake frequency: holidays/special occasions only Substance Use Type: does not use Exam Initial Vital Signs Initial Vital Signs: Vital Signs Temperature 97.5 F L 09/07/21 12:25 Pulse Rate 87 09/07/21 12:25 Respiratory Rate 17 09/07/21 12:25 Blood Pressure 124/64 09/07/21 12:25 Pulse Oximetry 95 09/07/21 12:25 Oxygen Delivery Method 09/07/21 12:25 GENERAL: Alert is a 5-year-old female HEENT: Head atraumatic,EOMI, pupils reactive, face symmetric, moist mucous membranes CARDIOVASCULAR: Regular rate and rhythm without murmurs, rubs or gallops. RESPIRATORY: Breath sounds equal bilaterally, no wheezes rales or rhonchi. ABDOMEN: Soft, nontender. Normoactive bowel sounds all 4 quadrants. No guarding or rebound. : No CVA tenderness EXTREMITIES: Normal range of motion, no clubbing or edema. Neurovascularly intact NEUROLOGICAL: Alert and oriented x4.Normal gait and speech. SKIN: Warm, dry, no laceration, no petechiae, no rashes or lesions. Course Orders Ordered: ED Orders 09/07/21 15:30 Complete Blood Count AUTO DIFF Stat Comprehensive Metabolic Panel Stat Lipase Stat NT-proBNP (BNP-Adult 18+) Stat Troponin & CK Cardiac Panel Stat 09/07/21 15:56 EKG-12 Lead Stat 09/07/21 16:44 RT Consult Eval and Treat NOW 09/07/21 16:45 COVID19 -Nasal RAPID/Pre-Proc Stat 09/07/21 17:03 XR chest 1V Stat EKG-12 Lead Stat Discontinued Medications Albuterol/Ipratropium (Albuterol/Ipratropium 3 Ml Ampul) 3 ml INH NOW ONE Stop: 09/07/21 16:56 Last Admin: 09/07/21 16:58 Dose: 3 ml Documented By: NEPTALI Hydromorphone HCl (Hydromorphone 0.5 Mg Inj) 0.5 mg IV NOW ONE Stop: 09/07/21 17:19 Last Admin: 09/07/21 17:26 Dose: 0.5 mg Documented By: FRANCISCO Vital Signs Vital signs: Vital Signs - 8 hr 09/07/21 12:25 09/07/21 15:19 09/07/21 15:30 Temperature 97.5 F L Pulse Rate 87 79 74 Respiratory Rate 17 17 20 Blood Pressure 124/64 Pulse Oximetry 95 96 96 Oxygen Delivery Method Room Air Oxygen Flow Rate 09/07/21 16:00 09/07/21 16:30 09/07/21 17:00 Temperature Pulse Rate 75 74 Respiratory Rate 22 22 Blood Pressure Pulse Oximetry 93 97 96 Oxygen Delivery Method Room Air Nasal Cannula Oxygen Flow Rate 1 09/07/21 17:00 09/07/21 17:30 09/07/21 18:00 Temperature Pulse Rate 71 79 83 Respiratory Rate 18 24 19 Blood Pressure Pulse Oximetry 96 95 94 Oxygen Delivery Method Oxygen Flow Rate MDM - Abdominal Pain Lab Data Result diagrams: 09/07/21 15:30 09/07/21 15:30 Labs: Lab Results 09/07/21 09/07/21 09/07/21 Range/Units 15:30 15:30 15:30 WBC 7.7 (4.5-11.0) X10^3/uL RBC 3.94 L (4.0-5.2) X10^6/uL Hgb 10.7 L (12.0-16.0) g/dL Hct 32.0 L (36-46) % MCV 81.2 (80-100) fL MCH 27.0 (26-34) PG MCHC 33.3 (30-36) % RDW 16.4 H (11.6-14.8) % Plt Count 246 (150-400) X10^3/uL Neut % (Auto) 64.3 (50-75) % Lymph % (Auto) 22.5 L (25-40) % Maverick % (Auto) 8.9 (3-14) % Eos % (Auto) 2.9 (2-4) % Baso % (Auto) 1.4 (0-2) % Neut # (Auto) 4900 (1416-8990) /uL Lymph # (Auto) 1700 (1915-0120) /uL Maverick # (Auto) 700 (0-900) /uL Eos # (Auto) 200 (0-450) /uL Baso # (Auto) 100 (0-100) /uL Sodium 138 (137-145) mmol/L Potassium 3.2 L (3.4-5.1) mmol/L Chloride 101 (98-107) mmol/L Carbon Dioxide 30 (22-32) mmol/L BUN 27 H (7-17) mg/dL Creatinine 0.90 (0.52-1.04) mg/dL Estimated GFR > 60 (>60) mL/min BUN/Creatinine Ratio 30.0 H (6-22) Glucose 107 (80-110) mg/dL Calcium 9.1 (8.4-10.2) mg/dL Total Bilirubin 0.3 (0.2-1.3) mg/dL AST 35 (14-36) IU/L ALT 21 (<35) IU/L Alkaline Phosphatase 123 (38-126) U/L Total Creatine Kinase 140 H (30-135) U/L CK-MB (CK-2) 1.69 (<2.37) ng/mL CK-MB (CK-2) Rel Index 1.2 L (1.5-5.0) % Troponin I < 0.012 (0.01-0.034) ng/mL NT-Pro-B Natriuret Pep 141 H (<125) pg/mL Total Protein 6.9 (6.3-8.2) g/dL Albumin 4.0 (3.5-5.0) g/dL Globulin 2.9 (1.7-4.1) g/dL Albumin/Globulin Ratio 1.4 (1.0-2.8) Lipase 87 (23-300) U/L SARS-CoV-2 (PCR) (Negative) 09/07/21 Range/Units 16:45 WBC (4.5-11.0) X10^3/uL RBC (4.0-5.2) X10^6/uL Hgb (12.0-16.0) g/dL Hct (36-46) % MCV (80-100) fL MCH (26-34) PG MCHC (30-36) % RDW (11.6-14.8) % Plt Count (150-400) X10^3/uL Neut % (Auto) (50-75) % Lymph % (Auto) (25-40) % Maverick % (Auto) (3-14) % Eos % (Auto) (2-4) % Baso % (Auto) (0-2) % Neut # (Auto) (3701-9246) /uL Lymph # (Auto) (6316-7722) /uL Maverick # (Auto) (0-900) /uL Eos # (Auto) (0-450) /uL Baso # (Auto) (0-100) /uL Sodium (137-145) mmol/L Potassium (3.4-5.1) mmol/L Chloride (98-107) mmol/L Carbon Dioxide (22-32) mmol/L BUN (7-17) mg/dL Creatinine (0.52-1.04) mg/dL Estimated GFR (>60) mL/min BUN/Creatinine Ratio (6-22) Glucose (80-110) mg/dL Calcium (8.4-10.2) mg/dL Total Bilirubin (0.2-1.3) mg/dL AST (14-36) IU/L ALT (<35) IU/L Alkaline Phosphatase (38-126) U/L Total Creatine Kinase (30-135) U/L CK-MB (CK-2) (<2.37) ng/mL CK-MB (CK-2) Rel Index (1.5-5.0) % Troponin I (0.01-0.034) ng/mL NT-Pro-B Natriuret Pep (<125) pg/mL Total Protein (6.3-8.2) g/dL Albumin (3.5-5.0) g/dL Globulin (1.7-4.1) g/dL Albumin/Globulin Ratio (1.0-2.8) Lipase (23-300) U/L SARS-CoV-2 (PCR) Negative (Negative) Imaging Data Chest x-ray: Radiologist's Impression: Abdifatah [id number] [id number] XRay Report Signed Patient: Sheryl Lennon MR#: [id number] : 1955 Acct:[id number] Age/Sex: 65 / F Date of Service: 09/07/21 Loc: ED Accession Number: [id number] ?? Procedure: XR chest 1V Ordering Provider: Allyssa Limon D.O. PROCEDURE:? XR CHEST 1V ? INDICATIONS:? short of breath ? TECHNIQUE:? One view of the chest was acquired.? ? COMPARISON:? [facility], CR, XR CHEST 1V, 06/04/2021, 12:09.? [facility], CR, XR CHEST 1V, 03/07/2021, 21:19.? [facility], CT, CT ANGIO CHEST PE PROTOCOL, 03/02/2021, 14:17. ? FINDINGS:? ? Surgical changes and devices:? Lower cervical spine fixation hardware is seen.? There is partial visualization left shoulder hardware. ? Lungs and pleura:? An incomplete inspiratory result is noted, causing a crowded appearance to the lung markings.? No focal infiltrates are seen.? No pneumothorax or significant pleural effusions are seen. ? Mild generalized interstitial prominence can be seen. ? Mediastinum:? The cardiac contours are mildly enlarged. The aorta demonstrates calcification and tortuosity. ? Bones and chest wall:? No suspicious bony lesions.? Age-appropriate bony degenerative changes are seen. ? Overlying soft tissues appear unremarkable.? ? ? IMPRESSION:? Mild cardiomegaly with mild interstitial prominence. Please correlate with patient presentation, physical examination findings, and laboratory values for congestive heart failure. ? ? Postoperative and degenerative changes are seen.? ? ? Dictated by: Iván Caceres M.D. on 09/07/2021 at 16:22 ? ? Approved by: Iván Caceres M.D. on 09/07/2021 at 16:23 ? ECG Data Interpretation: Normal sinus rhythm rate 73 NV interval 182 QRS [address] changes T-wave inversions noted in the to his EKG 2. Sinus rhythm previous T-wave inversion noted in V2 is now gone no ST changes is MDM Narrative Medical decision making narrative: The patient is really wanting her hernia is dressed. She had a CT last week her pain is not out of proportion her hernias are reducible every time she lays down his they are reduced. At this time I see absolutely no need for another CT. I have discussed with her that Dr. Louis is not going to fix her hernias. I have discussed with her that there is a high likelihood that she may have renal cancer she has a renal mass. She has follow-up appointments with many doctor she is not sure when they are but they are all coming up she says that she has it written down for which Is for what. She does become mildly hypoxic in the ED which is not uncommon for her. She received albuterol treatment. 1 EKG does show a new T-wave inversion in V2 only however her repeat EKG that has resolved. She is not having shortness of breath chest pain. His at this time patient can follow up with providers as scheduled. Discharge Plan Departure Patient Disposition: Home Clinical Impression: Kidney mass Instructions: Kidney Cancer Activity Restrictions/Additional Instructions: *You have been diagnosed with kidney mass *What to do: At this time your biggest concern should be the mass on your kidney which is concerning for cancer. Please be sure you are seeing an oncologist and in nephrologists in regards to this. Your hernia's can wait. Consider getting a hernia/abdominal binder to help with pain and keep the hernias in *Continue to take medications as directed *Follow up with your primary care provider in 2-3 days or call [phone] *Return to ER if you should have increasing weakness, vomiting or any new, worsening or concerning symptoms Prescriptions: No Action Spiriva with HandiHaler 18 mcg capsule, w/inhalation device 1 cap inhalation DAILY Rx Instructions: puncture 1 cap using device; one dose = 2 inhalations pramipexole 0.75 mg tablet 0.75 mg PO DAILY ibuprofen 200 mg tablet 200 mg PO Q6H PRN (Reason: Pain (Scale Score 1-3)) gabapentin 600 mg tablet 600 mg PO TID Label Comments: 0700, 1400, 2100 acetaminophen 500 mg capsule 500 mg PO Q6H PRN (Reason: Pain (Scale Score 1-3)) Trintellix 20 mg tablet 20 mg PO DAILY Qty: 30 5RF valsartan 40 mg tablet 20 mg PO BID metoprolol succinate 25 mg tablet extended release 24 hr 25 mg PO BID torsemide 20 mg tablet 80 mg PO BID Label Comments: TAKE 2 TABLETS BY MOUTH IN THE MORNING AND 1 TABLET AT NIGHT quetiapine 25 mg tablet 25 mg PO BEDTIME MDD 50MG Qty: 40 0RF Rx Instructions: OK to repeat dose if not sleeping within 1 hour diazepam 5 mg tablet 5 mg PO TID PRN (Reason: anxiety) Qty: 42 0RF Rx Instructions: Temporary increase to TID dosing. Fill on or after 09/02/21. potassium chloride 20 mEq tablet extended release 10 meq PO DAILY PRN (Reason: Take w/lasix) Rx Instructions: Take w/lasix prn fluticasone propionate 50 mcg/actuation spray,suspension 1 spray intranasal BID Rx Instructions: administer into each nostril methocarbamol 750 mg tablet 750 mg PO TID PRN (Reason: Spasms) Qty: 90 3RF Rx Instructions: PRN epinephrine 0.3 mg/0.3 mL auto-injector 0.3 mg IM ONCE PRN (Reason: Allergic Reaction) Qty: 1 11RF sumatriptan succinate 100 mg tablet See Rx Instructions .ROUTE .COMPLEX Qty: 14 0RF Dose Instruction: TAKE 1 TABLET BY MOUTH ONCE AT ONSET OF MIGRAINE HEADACHE. MAY REPEAT IN 2 HOURS IF NO RELIEF. MAX OF 2 TABLETS PER DAY. Rx Instructions: TAKE 1 TABLET BY MOUTH ONCE AT ONSET OF MIGRAINE HEADACHE. MAY REPEAT IN 2 HOURS IF NO RELIEF. MAX OF 2 TABLETS PER DAY. montelukast 10 mg tablet See Rx Instructions .ROUTE .COMPLEX Qty: 90 0RF Dose Instruction: TAKE 1 TABLET BY MOUTH AT BEDTIME NEEDED FOR ALLERGY SYMPTOMS Rx Instructions: TAKE 1 TABLET BY MOUTH AT BEDTIME NEEDED FOR ALLERGY SYMPTOMS lidocaine 5 % Ointment 1 applic TOPICAL TID PRN (Reason: pain) ketotifen fumarate [Zaditor] 0.025 % (0.035 %) Drops 1 drp OPHTHALMIC (EYE) BID sennosides [senna] 8.6 mg Tablet 17.2 mg PO BEDTIME PRN (Reason: Constipation) diphenhydramine HCl [Benadryl] 25 mg Capsule 75 mg PO DAILY PRN (Reason: Allergy Symptoms) omeprazole 40 mg Capsule,Delayed Release(Dr/Ec) 40 mg PO BID ondansetron 8 mg Tablet,Disintegrating 8 mg PO Q8H PRN (Reason: Nausea) methylprednisolone 4 mg tablet 4 mg PO DAILY 3 Days Qty: 3 0RF haloperidol 2 mg tablet 2 mg PO BEDTIME PRN (Reason: anxiety) Qty: 10 0RF Referrals: Maxim Parks MD [Primary Care Provider] - Visit Report Forms: Patient Portal/API
--- NOTE | 2021-09-07 17:03 | DI.RAD.S_ITS ---
PROCEDURE: XR CHEST 1V INDICATIONS: short of breath TECHNIQUE: One view of the chest was acquired. COMPARISON: [facility], CR, XR CHEST 1V, 06/04/2021, 12:09. [facility], CR, XR CHEST 1V, 03/07/2021, 21:19. [facility], CT, CT ANGIO CHEST PE PROTOCOL, 03/02/2021, 14:17. FINDINGS: Surgical changes and devices: Lower cervical spine fixation hardware is seen. There is partial visualization left shoulder hardware. Lungs and pleura: An incomplete inspiratory result is noted, causing a crowded appearance to the lung markings. No focal infiltrates are seen. No pneumothorax or significant pleural effusions are seen. Mild generalized interstitial prominence can be seen. Mediastinum: The cardiac contours are mildly enlarged. The aorta demonstrates calcification and tortuosity. Bones and chest wall: No suspicious bony lesions. Age-appropriate bony degenerative changes are seen. Overlying soft tissues appear unremarkable. IMPRESSION: Mild cardiomegaly with mild interstitial prominence. Please correlate with patient presentation, physical examination findings, and laboratory values for congestive heart failure. Postoperative and degenerative changes are seen. Dictated by: Iván Caceres M.D. on 09/07/2021 at 16:22 Approved by: Iván Caceres M.D. on 09/07/2021 at 16:23
[2021-09-07 17:19] LABS: Add Manual Diff / Slide Review NO; Basophils Absolute Auto 100 /uL (0-100); Basophils Percent Auto 1.4 % (0-2); Eosinophils Absolute Auto 200 /uL (0-450); Eosinophils Percent Auto 2.9 % (2-4); Hemoglobin 10.7 g/dL (12.0-16.0); Lymphocytes Absolute Auto 1700 /uL (1100-4500); Lymphocytes Percent Auto 22.5 % (25-40); Mean Corpuscular HGB Conc 33.3 % (30-36); Mean Corpuscular Volume 81.2 fL (80-100); Monocytes Absolute Auto 700 /uL (0-900); Monocytes Percent Auto 8.9 % (3-14); Neutrophils Absolute Auto 4900 /uL (1500-7000); Neutrophils Percent Auto 64.3 % (50-75); Platelet Count 246 X10^3/uL (150-400); Red Blood Cell Count 3.94 X10^6/uL (4.0-5.2); Red Cell Distribution Width 16.4 % (11.6-14.8); White Blood Cell Count 7.7 X10^3/uL (4.5-11.0)
[2021-09-07 17:23] LABS: Alanine Aminotransferase 21 IU/L (<35); Albumin Globulin Ratio 1.4 (1.0-2.8); Alkaline Phosphatase 123 U/L (38-126); Aspartate Aminotransferase 35 IU/L (14-36); Bilirubin Total 0.3 mg/dL (0.2-1.3); Blood Urea Nitrogen 27 mg/dL (7-17); Calcium 9.1 mg/dL (8.4-10.2); Carbon Dioxide 30 mmol/L (22-32); Chloride 101 mmol/L (98-107); Creatine Kinase 140 U/L (30-135); Estimated Glomerular Filt Rate > 60 mL/min (>60); Globulin 2.9 g/dL (1.7-4.1); Glucose 107 mg/dL (80-110); HEMOLYSIS 20 (0-50); Lipase 87 U/L (23-300); Potassium 3.2 mmol/L (3.4-5.1); Sodium 138 mmol/L (137-145); Total Protein 6.9 g/dL (6.3-8.2)
--- NOTE | 2021-09-07 17:24 | PC.NURSE ---
1645: Pt desated to 88% on RA. Place on 1 L oxygen via NC. Oxygen saturation quickly went to 95%.
[2021-09-07] MEDS: HYDROMORPHONE 0.5 MG INJ IV (17:26)
[2021-09-07 17:32] LABS: NT-proBNP (BNP-Adult 18+) 141 pg/mL (<125)
[2021-09-07 17:35] LABS: Troponin I < 0.012 ng/mL (0.01-0.034)
[2021-09-07 17:38] LABS: CKMB % Relative Index 1.2 % (1.5-5.0); Creatine Kinase MB 1.69 ng/mL (<2.37)
[2021-09-07 17:51] LABS: COVID19 -Nasal RAPID Negative (Negative)
== END 2021-09-07 19:25 | disposition home or self-care (01) ==
PROVIDERS: Emergency Provider Emergency Medicine; PCP Family Medicine
DX: N28.89 Other specified disorders of kidney and ureter (principal); R06.02 Shortness of breath; Z20.822 Contact with and (suspected) exposure to COVID-19
CPT/HCPCS: 36415; 71045; 80053; 82550; 82553; 83690; 83880; 84484; 85025; 87635; 93005; 94640; 96374; 99284; C9803; J1170

== ENCOUNTER 2021-10-01 14:11 | Emergency (ER) | payer OTHER, MEDICAID, SELFPAY ==
[2021-06-04 16:30] VITALS: BMI 39.6
[2021-10-01 14:15] VITALS: BP 125/57; PULSE 76; RESP 22; TEMP 36.7; O2SAT 94; BMI 33.6
[2021-10-01 14:42] VITALS: PULSE 73; O2SAT 95
--- NOTE | 2021-10-01 14:52 | DI.US.S_ITS ---
PROCEDURE: US RENAL COMPLETE INDICATIONS: Back pain and history of renal mass TECHNIQUE: Real-time scanning was performed of the kidneys and bladder, with image documentation. COMPARISON: [facility], CT, CT ABDOMEN PELVIS WITH CONTRAST, 09/27/2021, 23:18. [facility], US, US RENAL COMPLETE, 01/20/2021, 16:02. FINDINGS: Kidneys: Kidneys are normal in size. Right kidney measures 10.5 cm long; left kidney measures 9.6 cm long. Right renal cortical thickness is 1.3 cm; left renal cortical thickness is 1.4 cm. Hypoechoic mass lesion in the right renal cortex measures 2.5 x 1.9 x 2.3 cm, similar prior CT. No hydronephrosis or shadowing calculi. Bladder: Pre-void bladder volume is 505 mL. Post-void residual is 40 mL. Pre-void images demonstrate no intraluminal masses or stones. On pre-void images, bilateral ureteral jets are noted with color Doppler interrogation. (Of note, ureteral jets may not be detectable in up to 25% of cases due to insufficient differences in specific gravity between ureteral and bladder urine). Miscellaneous: No free pelvic fluid. IMPRESSION: 1. No acute findings. No renal calculi or hydronephrosis. 2. Stable right renal mass Approved by: Carlton Ashley M.D. on 10/01/2021 at 16:21
[2021-10-01 15:00] VITALS: PULSE 71; O2SAT 93
[2021-10-01 15:04] LABS: Add Manual Diff / Slide Review NO; Basophils Absolute Auto 100 /uL (0-100); Basophils Percent Auto 0.9 % (0-2); Eosinophils Absolute Auto 200 /uL (0-450); Eosinophils Percent Auto 3.2 % (2-4); Hematocrit 31.4 % (36-46); Hemoglobin 10.7 g/dL (12.0-16.0); Lymphocytes Absolute Auto 1600 /uL (1100-4500); Mean Corpuscular HGB Conc 33.9 % (30-36); Mean Corpuscular Hemoglobin 27.3 PG (26-34); Mean Corpuscular Volume 80.4 fL (80-100); Monocytes Absolute Auto 600 /uL (0-900); Monocytes Percent Auto 9.1 % (3-14); Neutrophils Absolute Auto 4600 /uL (1500-7000); Neutrophils Percent Auto 63.8 % (50-75); Platelet Count 263 X10^3/uL (150-400); Red Blood Cell Count 3.91 X10^6/uL (4.0-5.2); Red Cell Distribution Width 17.1 % (11.6-14.8); White Blood Cell Count 7.2 X10^3/uL (4.5-11.0)
[2021-10-01 15:15] LABS: Alanine Aminotransferase 24 IU/L (<35); Albumin 3.9 g/dL (3.5-5.0); Albumin Globulin Ratio 1.3 (1.0-2.8); Alkaline Phosphatase 128 U/L (38-126); Aspartate Aminotransferase 28 IU/L (14-36); BUN Creatinine Ratio 31.7 (6-22); Bilirubin Total 0.2 mg/dL (0.2-1.3); Blood Urea Nitrogen 33 mg/dL (7-17); Calcium 8.7 mg/dL (8.4-10.2); Carbon Dioxide 31 mmol/L (22-32); Chloride 100 mmol/L (98-107); Estimated Glomerular Filt Rate 59 mL/min (>60); Globulin 2.9 g/dL (1.7-4.1); Glucose 114 mg/dL (80-110); HEMOLYSIS < 15 (0-50); Potassium 3.5 mmol/L (3.4-5.1); Sodium 136 mmol/L (137-145); Total Protein 6.8 g/dL (6.3-8.2)
[2021-10-01] MEDS: HYDROMORPHONE 0.5 MG INJ IV ×2 (15:24→16:30)
--- NOTE | 2021-10-01 16:20 | PC.NURSE ---
Ultrasound here to do imaging on pt. Pt refuses to have ultrasound unless she gets more pain meds. Provider notified, new orders received.
--- NOTE | 2021-10-01 17:02 | ED_ITS ---
HPI - Back Pain/Injury <Christopher Vega PA-C - Last Filed: 10/02/21 12:03> General Chief Complaint: Back Pain/Injury Stated Complaint: Lower back pain Time Seen by Provider: 10/01/21 14:26 Source: patient History of Present Illness HPI Narrative: Patient is a 65-year-old female who presents to the emergency room today with complaint of right-sided kidney pain that started this morning. 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 Describes his pain as a dull ache to her bilateral lower back, but mainly on the right side. This patient is known to this ER to be a frequent visitor and known to have a kidney mass and bilateral abdominal hernias. Patient is also known to have pain management issues. Patient denies chest pain shortness of breath flank pain or concerns. Related Data Home Medications Medication Instructions Recorded Confirmed sennosides 8.6 mg tablet (senna) 17.2 mg PO BEDTIME PRN Constipation 09/20/18 08/19/21 potassium chloride 20 mEq 10 meq PO DAILY PRN Take w/lasix 10/29/18 08/19/21 tablet,extended release diphenhydramine HCl 25 mg capsule 75 mg PO DAILY PRN Allergy Symptoms 10/26/19 09/27/21 (Benadryl) omeprazole 40 mg capsule,delayed 40 mg PO BID 02/10/20 08/19/21 release lidocaine 5 % topical ointment 1 applic topical TID PRN pain 02/24/20 09/27/21 ketotifen fumarate 0.025 % (0.035 1 drp ophthalmic (eye) BID 03/02/20 09/27/21 %) eye drops (Zaditor) fluticasone propionate 50 1 spray intranasal BID 04/02/20 09/27/21 mcg/actuation nasal spray,suspension ondansetron 8 mg disintegrating 8 mg PO Q8H PRN Nausea 06/29/20 08/19/21 tablet metoprolol succinate 25 mg 25 mg PO BID 01/27/21 08/19/21 tablet,extended release 24 hr valsartan 40 mg tablet 20 mg PO BID 01/27/21 08/19/21 acetaminophen 500 mg capsule 500 mg PO Q6H PRN Pain (Scale 04/11/21 09/27/21 Score 1-3) gabapentin 600 mg tablet 600 mg PO TID 04/11/21 09/27/21 ibuprofen 200 mg tablet 200 mg PO Q6H PRN Pain (Scale 04/11/21 09/27/21 Score 1-3) pramipexole 0.75 mg tablet 0.75 mg PO DAILY 04/11/21 09/27/21 tiotropium bromide 18 mcg capsule 1 cap inhalation DAILY 04/11/21 08/19/21 with inhalation device (Spiriva with HandiHaler) torsemide 20 mg tablet 80 mg PO BID 08/19/21 08/19/21 Previous Rx's Medication Instructions Recorded methocarbamol 750 mg tablet 750 mg PO TID PRN Spasms #90 tabs 09/29/19 epinephrine 0.3 mg/0.3 mL 0.3 mg (0.3 mL) IM ONCE PRN 01/01/20 injection, auto-injector Allergic Reaction #1 ea methylprednisolone 4 mg tablet 4 mg PO DAILY 3 days #3 tabs 06/06/21 montelukast 10 mg tablet See Rx Instructions .Route 07/26/21 .COMPLEX #90 tabs sumatriptan succinate 100 mg tablet See Rx Instructions .Route 07/26/21 .COMPLEX #14 tabs Trintellix 20 mg tablet 20 mg PO DAILY 30 days #30 tabs 09/27/21 (vortioxetine) diazepam 5 mg tablet 5 mg PO BID PRN anxiety 30 days 09/27/21 #60 tabs quetiapine 25 mg tablet 25 mg PO BEDTIME #40 tabs 09/27/21 Allergies Allergy/AdvReac Type Severity Reaction Status Date / Time Iodinated Contrast Media Allergy Severe Difficulty Verified 10/01/21 14:15 Breathing iodine Allergy Severe Difficulty Verified 10/01/21 14:15 Breathing latex Allergy Severe Rash Verified 10/01/21 14:15 morphine [MORPHINE] Allergy Severe Anaphylaxis Verified 10/01/21 14:15 Penicillins [PENICILLINS] Allergy Severe Anaphylaxis Verified 10/01/21 14:15 Sulfa (Sulfonamide Allergy Severe RASH Verified 10/01/21 14:15 Antibiotics) [SULFA (SULFONAMIDE ANTIBIOTICS)] azithromycin Allergy Intermediate Rash Verified 10/01/21 14:15 [From ZITHROMAX Z-MARILYN] cefuroxime [From Ceftin] Allergy Intermediate Rash Verified 10/01/21 14:15 sulfamethoxazole Allergy Intermediate RASH Verified 10/01/21 14:15 [From SEPTRA] trimethoprim [From SEPTRA] Allergy Intermediate RASH Verified 10/01/21 14:15 ciprofloxacin [From Cipro] Allergy Pt does Verified 10/01/21 14:15 not remember reaction Corticosteroids Allergy Swelling Verified 10/01/21 14:15 (Glucocorticoids) of Lip/Tongue/Throat cephalexin [From Keflex] AdvReac Severe Fever, Verified 10/01/21 14:15 Asthma, Tachycardia prednisone AdvReac Severe nausea and Verified 10/01/21 14:15 feels very weak, and axious verapamil AdvReac Intermediate Asthma Verified 10/01/21 14:15 symptoms zonisamide AdvReac Intermediate Asthma Verified 10/01/21 14:15 symptoms Review of Systems <Christopher Vega PA-C - Last Filed: 10/02/21 12:03> Review of Systems Narrative: REVIEW OF SYSTEMS:. General: No weight change, generally healthy, no change in strength or exercise tolerance. No fever/chill. No fatigue. Head: No headaches, no vertigo, no injury. Eyes: Normal vision, no diplopia, no tearing, no scotomata, no pain. Ears: No change in hearing, no tinnitus, no bleeding, no vertigo. Nose: No epistaxis, no coryza, no obstruction, no discharge. Mouth: No dental difficulties, no gingival bleeding, no use of dentures. Neck: No stiffness, no pain, no tenderness, no noted masses. Chest: No dyspnea, no wheezing, no hemoptysis, no cough. Heart: No chest pains, no palpitations, no syncope, no orthopnea. Abdomen: No change in appetite, no dysphagia, no abdominal pains, no bowel habit changes, no emesis, no melena. Musculoskeletal: No pain in muscles or joints, no limitation of range of motion, no paresthesia or numbness. Neurologic: No weakness, no tremor, no seizures, no changes in mentation, no ataxia. Psychiatric: No depressive symptoms, no changes in sleep habits, no changes in thought content.. Back: Right sided and bilateral LBP. Patient History <Christopher Vega PA-C - Last Filed: 10/02/21 12:03> Medical History Anemia Anxiety Asthma Chronic back pain Chronic cough Depression Femur fracture, left Fibromyalgia Fractures GERD (gastroesophageal reflux disease) Hiatal hernia Recurrent sinusitis Venous insufficiency (chronic) (peripheral) Surgical History Anesthesia History of eye surgery (~1973) History of foot surgery History of hysterectomy (~1979) History of shoulder surgery (~2011) History of tonsillectomy (~1975) Hx of bilateral cataract extraction Family History Mother Heart disease Sister Heart disease Social History marital status: number of children: 1 household members: none lives independently: Yes caregiver/support person: Yes (3 afternoons per week) pets and animals: Yes occupational status: disabled Smoking Status: Never smoker alcohol intake: never substance use type: does not use Smoking Status: Never smoker alcohol intake frequency: holidays/special occasions only Substance Use Type: does not use Exam <Christopher Vega PA-C - Last Filed: 10/02/21 12:03> Narrative Exam Narrative: Physical Exam: General: Normal appearance, well developed, well nourished, alert, and awake. Not in acute distress. ? Head: Normocephalic, no lesions. ?? Eyes: PERRLA, EOM's full, conjunctivae clear. ? Ears: EAC's clear, TM's normal. ?? Throat: Clear, no exudates, no lesions. ?? Neck: Supple, no masses, no thyromegaly, no bruits. ?? Chest: Lungs clear, no rales, no rhonchi, no wheezes. ?? Heart: RR, no murmurs, no rubs, no gallops. ?? Neuro: Physiological, no localizing findings, CN2-12 intact. ?? Extremities: Warm, well perfused, FROM, no deformities, no edema, no erythema. ?? PSYCHIATRIC: The mood is good, no blunted affect. Speech is clear. Thought process is linear, thought content is appropriate. The voice is without significant inflection.. Back: Bilateral CVA tenderness. Initial Vital Signs Initial Vital Signs: Vital Signs Temperature 98.1 F 10/01/21 14:15 Pulse Rate 76 10/01/21 14:15 Respiratory Rate 22 10/01/21 14:15 Blood Pressure 125/57 L 10/01/21 14:15 Pulse Oximetry 94 10/01/21 14:15 Oxygen Delivery Method 10/01/21 14:15 <Gerson De Jesus DO - Last Filed: 10/04/21 11:51> Initial Vital Signs Initial Vital Signs: Vital Signs Temperature 98.1 F 10/01/21 14:15 Pulse Rate 76 10/01/21 14:15 Respiratory Rate 22 10/01/21 14:15 Blood Pressure 125/57 L 10/01/21 14:15 Pulse Oximetry 94 10/01/21 14:15 Oxygen Delivery Method 10/01/21 14:15 Course <Christopher Vega PA-C - Last Filed: 10/02/21 12:03> Orders Ordered: Discontinued Medications Hydromorphone HCl (Hydromorphone 0.5 Mg Inj) 0.5 mg IV NOW ONE Stop: 10/01/21 15:06 Last Admin: 10/01/21 15:24 Dose: 0.5 mg Documented By: PK Hydromorphone HCl (Hydromorphone 0.5 Mg Inj) 0.5 mg IV NOW ONE Stop: 10/01/21 16:28 Last Admin: 10/01/21 16:30 Dose: 0.5 mg Documented By: PK Vital Signs Vital signs: Vital Signs - 8 hr 10/01/21 14:15 10/01/21 14:42 10/01/21 15:00 Temperature 98.1 F Pulse Rate 76 73 71 Respiratory Rate 22 Blood Pressure 125/57 L Pulse Oximetry 94 95 93 Oxygen Delivery Method Room Air <Gerson De Jesus DO - Last Filed: 10/04/21 11:51> Orders Ordered: Discontinued Medications Hydromorphone HCl (Hydromorphone 0.5 Mg Inj) 0.5 mg IV NOW ONE Stop: 10/01/21 15:06 Last Admin: 10/01/21 15:24 Dose: 0.5 mg Documented By: PK Hydromorphone HCl (Hydromorphone 0.5 Mg Inj) 0.5 mg IV NOW ONE Stop: 10/01/21 16:28 Last Admin: 10/01/21 16:30 Dose: 0.5 mg Documented By: PK Vital Signs Vital signs: Vital Signs - 8 hr 10/01/21 14:15 10/01/21 14:42 10/01/21 15:00 Temperature 98.1 F Pulse Rate 76 73 71 Respiratory Rate 22 Blood Pressure 125/57 L Pulse Oximetry 94 95 93 Oxygen Delivery Method Room Air MDM - Back Pain/Injury <Christopher Vega PA-C - Last Filed: 10/02/21 12:03> Lab Data Result diagrams: 10/01/21 14:58 10/01/21 14:58 Labs: Lab Results 10/01/21 10/01/21 Range/Units 14:58 14:58 WBC 7.2 (4.5-11.0) X10^3/uL RBC 3.91 L (4.0-5.2) X10^6/uL Hgb 10.7 L (12.0-16.0) g/dL Hct 31.4 L (36-46) % MCV 80.4 (80-100) fL MCH 27.3 (26-34) PG MCHC 33.9 (30-36) % RDW 17.1 H (11.6-14.8) % Plt Count 263 (150-400) X10^3/uL Neut % (Auto) 63.8 (50-75) % Lymph % (Auto) 23.0 L (25-40) % [place] % (Auto) 9.1 (3-14) % Eos % (Auto) 3.2 (2-4) % Baso % (Auto) 0.9 (0-2) % Neut # (Auto) 4600 (3907-2590) /uL Lymph # (Auto) 1600 (6198-7293) /uL [place] # (Auto) 600 (0-900) /uL Eos # (Auto) 200 (0-450) /uL Baso # (Auto) 100 (0-100) /uL Sodium 136 L (137-145) mmol/L Potassium 3.5 (3.4-5.1) mmol/L Chloride 100 (98-107) mmol/L Carbon Dioxide 31 (22-32) mmol/L BUN 33 H (7-17) mg/dL Creatinine 1.04 (0.52-1.04) mg/dL Estimated GFR 59 L (>60) mL/min BUN/Creatinine Ratio 31.7 H (6-22) Glucose 114 H (80-110) mg/dL Calcium 8.7 (8.4-10.2) mg/dL Total Bilirubin 0.2 (0.2-1.3) mg/dL AST 28 (14-36) IU/L ALT 24 (<35) IU/L Alkaline Phosphatase 128 H (38-126) U/L Total Protein 6.8 (6.3-8.2) g/dL Albumin 3.9 (3.5-5.0) g/dL Globulin 2.9 (1.7-4.1) g/dL Albumin/Globulin Ratio 1.3 (1.0-2.8) Urine Dip Bedside Urine Glucose Negative Bedside Urine Bilirubin - Negative Bedside Urine Ketone - Negative Urine Specific [place] 1.005 Bedside Urine Occult Blood - Negative Bedside Urine pH 5.5 Bedside Urine Protein - Negative Bedside Urine Urobilinogen - Negative Bedside Urine Nitrite - Negative Bedside Urine Leukocytes - Negative Esterase Imaging Data US - renal: Radiologist's Impression: PROCEDURE:? US RENAL COMPLETE ? INDICATIONS:? Back pain and history of renal mass ? TECHNIQUE:? Real-time scanning was performed of the kidneys and bladder, with image documentation.? ? COMPARISON:? [facility], CT, CT ABDOMEN PELVIS WITH CONTRAST, 09/27/2021, 23:18.? [facility], US, US RENAL COMPLETE, 01/20/2021, 16:02. ? FINDINGS:? ? Kidneys:? Kidneys are normal in size.? Right kidney measures 10.5 cm long; left kidney measures 9.6 cm long.? Right renal cortical thickness is 1.3 cm; left renal cortical thickness is 1.4 cm.? ? Hypoechoic mass lesion in the right renal cortex measures 2.5 x 1.9 x 2.3 cm, similar prior CT.? No hydronephrosis or shadowing calculi. ? Bladder:? Pre-void bladder volume is 505 mL.? Post-void residual is 40 mL.? Pre- void images demonstrate no intraluminal masses or stones.? On pre-void images, bilateral ureteral jets are noted with color Doppler interrogation.? (Of note, ureteral jets may not be detectable in up to 25% of cases due to insufficient differences in specific gravity between ureteral and bladder urine).? ? Miscellaneous:? No free pelvic fluid.? ? IMPRESSION:? ? 1. No acute findings.? No renal calculi or hydronephrosis. ? 2. Stable right renal mass ? ? ? Approved by: Carlton Ashley M.D. on 10/01/2021 at 16:21? [facility] Narrative Medical decision making narrative: Patient is a 65-year-old female who presents to the emergency room today with complaint of right-sided low back pain that started this morning. 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 Main complaint today is pain and wanted to know what is going on. Admits to having this type of pain before but not to this magnitude. CBC CMP POC urine and kidney ultrasound ordered. Renal ultrasound had impression of?No acute findings & No renal calculi or hydronephrosis and Stable right renal mass. Plan to discharge patient and advise patient to follow up with her Urologist as scheduled and her PCP for any non Emergent concerns. Advised to return to the Emergency Room should any emergent concerns arise. <Gerson De Jesus, DO - Last Filed: 10/04/21 11:51> Lab Data Labs: Lab Results 10/01/21 10/01/21 Range/Units 14:58 14:58 WBC 7.2 (4.5-11.0) X10^3/uL RBC 3.91 L (4.0-5.2) X10^6/uL Hgb 10.7 L (12.0-16.0) g/dL Hct 31.4 L (36-46) % MCV 80.4 (80-100) fL MCH 27.3 (26-34) PG MCHC 33.9 (30-36) % RDW 17.1 H (11.6-14.8) % Plt Count 263 (150-400) X10^3/uL Neut % (Auto) 63.8 (50-75) % Lymph % (Auto) 23.0 L (25-40) % [place] % (Auto) 9.1 (3-14) % Eos % (Auto) 3.2 (2-4) % Baso % (Auto) 0.9 (0-2) % Neut # (Auto) 4600 (6430-6229) /uL Lymph # (Auto) 1600 (5181-6938) /uL [place] # (Auto) 600 (0-900) /uL Eos # (Auto) 200 (0-450) /uL Baso # (Auto) 100 (0-100) /uL Sodium 136 L (137-145) mmol/L Potassium 3.5 (3.4-5.1) mmol/L Chloride 100 (98-107) mmol/L Carbon Dioxide 31 (22-32) mmol/L BUN 33 H (7-17) mg/dL Creatinine 1.04 (0.52-1.04) mg/dL Estimated GFR 59 L (>60) mL/min BUN/Creatinine Ratio 31.7 H (6-22) Glucose 114 H (80-110) mg/dL Calcium 8.7 (8.4-10.2) mg/dL Total Bilirubin 0.2 (0.2-1.3) mg/dL AST 28 (14-36) IU/L ALT 24 (<35) IU/L Alkaline Phosphatase 128 H (38-126) U/L Total Protein 6.8 (6.3-8.2) g/dL Albumin 3.9 (3.5-5.0) g/dL Globulin 2.9 (1.7-4.1) g/dL Albumin/Globulin Ratio 1.3 (1.0-2.8) Urine Dip Bedside Urine Glucose Negative Bedside Urine Bilirubin - Negative Bedside Urine Ketone - Negative Urine Specific [place] 1.005 Bedside Urine Occult Blood - Negative Bedside Urine pH 5.5 Bedside Urine Protein - Negative Bedside Urine Urobilinogen - Negative Bedside Urine Nitrite - Negative Bedside Urine Leukocytes - Negative Esterase Discharge Plan Departure Patient Disposition: Home Clinical Impression: Low back pain, Mass of kidney Instructions: DI for Low Back Pain Activity Restrictions/Additional Instructions: *You have been diagnosed with [low back pain secondary to renal mass complications.] Labs and diagnostics test done today in the emergency room did not reveal any acute emergent concerns. I suggest you continue with your planned appointment with your urologist next Sunday and I also suggested follow- up with your primary care provider should any non emergent concerns arise. A suggestion return to the emergency room if any emergent concerns arise. *What to do: *Please continue to take your regular medications as directed. [ ] New medication prescriptions sent to your pharmacy: [ ] [ ] New medication written as a paper prescription [x] No new medications given *Please follow up with your primary care provider in 2-3 days, call for an appointment. Let them know you were seen in the Emergency Department and that we ask that you be seen in follow up. We will electronically transmit a record of today's note if your PCP is in our system *If you do not have a primary care provider please contact the [facility] Resource line at [phone]. They will ask some questions about your medical history and help get you set up with a doctor in the community. *Return to Emergency Department if you should have any new, worsening or concerning symptoms, such as [fever greater than 101 F, shaking chills, w orsening pain, persistent vomiting or other bothersome symptoms] Prescriptions: No Action Spiriva with HandiHaler 18 mcg capsule, w/inhalation device 1 cap inhalation DAILY Rx Instructions: puncture 1 cap using device; one dose = 2 inhalations pramipexole 0.75 mg tablet 0.75 mg PO DAILY ibuprofen 200 mg tablet 200 mg PO Q6H PRN (Reason: Pain (Scale Score 1-3)) gabapentin 600 mg tablet 600 mg PO TID Label Comments: 0700, 1400, 2100 acetaminophen 500 mg capsule 500 mg PO Q6H PRN (Reason: Pain (Scale Score 1-3)) valsartan 40 mg tablet 20 mg PO BID metoprolol succinate 25 mg tablet extended release 24 hr 25 mg PO BID torsemide 20 mg tablet 80 mg PO BID Label Comments: TAKE 2 TABLETS BY MOUTH IN THE MORNING AND 1 TABLET AT NIGHT quetiapine 25 mg tablet 25 mg PO BEDTIME MDD 50MG Qty: 40 5RF Rx Instructions: OK to repeat dose if not sleeping within 1 hour diazepam 5 mg tablet 5 mg PO BID PRN (Reason: anxiety) 30 Days Qty: 60 2RF Trintellix 20 mg tablet 20 mg PO DAILY 30 Days Qty: 30 5RF potassium chloride 20 mEq tablet extended release 10 meq PO DAILY PRN (Reason: Take w/lasix) Rx Instructions: Take w/lasix prn fluticasone propionate 50 mcg/actuation spray,suspension 1 spray intranasal BID Rx Instructions: administer into each nostril methocarbamol 750 mg tablet 750 mg PO TID PRN (Reason: Spasms) Qty: 90 3RF Rx Instructions: PRN epinephrine 0.3 mg/0.3 mL auto-injector 0.3 mg IM ONCE PRN (Reason: Allergic Reaction) Qty: 1 11RF sumatriptan succinate 100 mg tablet See Rx Instructions .ROUTE .COMPLEX Qty: 14 0RF Dose Instruction: TAKE 1 TABLET BY MOUTH ONCE AT ONSET OF MIGRAINE HEADACHE. MAY REPEAT IN 2 HOURS IF NO RELIEF. MAX OF 2 TABLETS PER DAY. Rx Instructions: TAKE 1 TABLET BY MOUTH ONCE AT ONSET OF MIGRAINE HEADACHE. MAY REPEAT IN 2 HOURS IF NO RELIEF. MAX OF 2 TABLETS PER DAY. montelukast 10 mg tablet See Rx Instructions .ROUTE .COMPLEX Qty: 90 0RF Dose Instruction: TAKE 1 TABLET BY MOUTH AT BEDTIME NEEDED FOR ALLERGY SYMPTOMS Rx Instructions: TAKE 1 TABLET BY MOUTH AT BEDTIME NEEDED FOR ALLERGY SYMPTOMS lidocaine 5 % Ointment 1 applic TOPICAL TID PRN (Reason: pain) ketotifen fumarate [Zaditor] 0.025 % (0.035 %) Drops 1 drp OPHTHALMIC (EYE) BID sennosides [senna] 8.6 mg Tablet 17.2 mg PO BEDTIME PRN (Reason: Constipation) diphenhydramine HCl [Benadryl] 25 mg Capsule 75 mg PO DAILY PRN (Reason: Allergy Symptoms) omeprazole 40 mg Capsule,Delayed Release(Dr/Ec) 40 mg PO BID ondansetron 8 mg Tablet,Disintegrating 8 mg PO Q8H PRN (Reason: Nausea) methylprednisolone 4 mg tablet 4 mg PO DAILY 3 Days Qty: 3 0RF Referrals: Maxim Parks MD [Primary Care Provider] - Visit Report Forms: Patient Portal/API <Gerson De Jesus DO - Last Filed: 10/04/21 11:51> Cosign ED Attending Cosignature Attestation: I was immediately available in the department for consultation. This documentation has been reviewed and I agree with assessment and plan. Supervised by Gerson De Jesus DO
[2021-10-01 19:13] VITALS: BP 116/65; PULSE 72; RESP 20; TEMP 36.6; O2SAT 95
== END 2021-10-01 19:15 | disposition home or self-care (01) ==
PROVIDERS: Emergency Provider Physician Assistant; PCP Family Medicine
DX: M54.50 Low back pain, unspecified (principal); N28.89 Other specified disorders of kidney and ureter
CPT/HCPCS: 36415; 76770; 80053; 81003; 85025; 96374; 96376; 99284; J1170

== ENCOUNTER 2021-10-11 16:44 | Emergency (ER) | payer OTHER, MEDICAID, SELFPAY ==
[2021-06-04 16:30] VITALS: BMI 39.6
[2021-10-11] VITALS (7 sets, daily range): BP systolic 123–132; BP diastolic 59–60; PULSE 74–82; RESP 20; TEMP 36.8; O2SAT 89–97
--- NOTE | 2021-10-11 20:04 | DI.RAD.S_ITS ---
PROCEDURE: XR KNEE RT 3V INDICATIONS: fall with twisting injury TECHNIQUE: 3 views of the knee were acquired. COMPARISON: [facility], CR, XR KNEE RT 1TO2V, 02/22/2021, 14:44. FINDINGS: Bones: No fractures or dislocations. A right knee prosthesis is redemonstrated. No new suspicious periprosthetic lucencies. No suspicious bony lesions. Soft tissues: There is a suspected small joint effusion. No suspicious soft tissue calcifications. There is a curvilinear metallic foreign body along the posterior soft tissues which appears external. IMPRESSION: 1. No acute fracture or dislocation. Dictated by: Abimael Lyon M.D. on 10/11/2021 at 22:27 Approved by: Abimael Lyon M.D. on 10/11/2021 at 22:37
--- NOTE | 2021-10-11 20:05 | ED.SKABFB ---
HPI - Skin/Abscess/Foreign Bdy General Chief complaint: Skin/Abscess/Foreign Body Stated complaint: Right leg injury Time Seen by Provider: 10/11/21 19:57 Source: patient Mode of arrival: Ambulatory History of Present Illness HPI narrative: 65-year-old female nonsmoker with history known abdominal hernias, right kidney mass, kidney injury, anxiety presents for evaluation of?right lower extremity injury suffered on Sunday. She states that she was walking on a sidewalk when her foot got caught and she fell forward, twisting her knee and scraping her lakhani on a concrete wall. Since then she is had ongoing pain which seems to be worse with ambulation and improves with rest. She denies any head neck or back pain. She denies any prodromal symptoms contributing to the fall such as dizziness, weakness or lightheadedness. She has a superficial rash and abrasion that seems to be draining some yellowish fluid. She denies any numbness, tingling or weakness Related Data Home Medications Medication Instructions Recorded Confirmed sennosides 8.6 mg tablet (senna) 17.2 mg PO BEDTIME PRN Constipation 09/20/18 08/19/21 potassium chloride 20 mEq 10 meq PO DAILY PRN Take w/lasix 10/29/18 08/19/21 tablet,extended release diphenhydramine HCl 25 mg capsule 75 mg PO DAILY PRN Allergy Symptoms 10/26/19 09/27/21 (Benadryl) omeprazole 40 mg capsule,delayed 40 mg PO BID 02/10/20 08/19/21 release lidocaine 5 % topical ointment 1 applic topical TID PRN pain 02/24/20 09/27/21 ketotifen fumarate 0.025 % (0.035 1 drp ophthalmic (eye) BID 03/02/20 09/27/21 %) eye drops (Zaditor) fluticasone propionate 50 1 spray intranasal BID 04/02/20 09/27/21 mcg/actuation nasal spray,suspension ondansetron 8 mg disintegrating 8 mg PO Q8H PRN Nausea 06/29/20 08/19/21 tablet metoprolol succinate 25 mg 25 mg PO BID 01/27/21 08/19/21 tablet,extended release 24 hr valsartan 40 mg tablet 20 mg PO BID 01/27/21 08/19/21 acetaminophen 500 mg capsule 500 mg PO Q6H PRN Pain (Scale 04/11/21 09/27/21 Score 1-3) gabapentin 600 mg tablet 600 mg PO TID 04/11/21 09/27/21 ibuprofen 200 mg tablet 200 mg PO Q6H PRN Pain (Scale 04/11/21 09/27/21 Score 1-3) pramipexole 0.75 mg tablet 0.75 mg PO DAILY 04/11/21 09/27/21 tiotropium bromide 18 mcg capsule 1 cap inhalation DAILY 04/11/21 08/19/21 with inhalation device (Spiriva with HandiHaler) torsemide 20 mg tablet 80 mg PO BID 08/19/21 08/19/21 Previous Rx's Medication Instructions Recorded methocarbamol 750 mg tablet 750 mg PO TID PRN Spasms #90 tabs 09/29/19 epinephrine 0.3 mg/0.3 mL 0.3 mg (0.3 mL) IM ONCE PRN 01/01/20 injection, auto-injector Allergic Reaction #1 ea methylprednisolone 4 mg tablet 4 mg PO DAILY 3 days #3 tabs 06/06/21 montelukast 10 mg tablet See Rx Instructions .Route 07/26/21 .COMPLEX #90 tabs sumatriptan succinate 100 mg tablet See Rx Instructions .Route 07/26/21 .COMPLEX #14 tabs Trintellix 20 mg tablet 20 mg PO DAILY 30 days #30 tabs 09/27/21 (vortioxetine) diazepam 5 mg tablet 5 mg PO BID PRN anxiety 30 days 09/27/21 #60 tabs quetiapine 25 mg tablet 25 mg PO BEDTIME #40 tabs 09/27/21 mupirocin 2 % topical ointment 1 applic topical BID #15 grams 10/12/21 Allergies Allergy/AdvReac Type Severity Reaction Status Date / Time Iodinated Contrast Media Allergy Severe Difficulty Verified 10/01/21 14:15 Breathing iodine Allergy Severe Difficulty Verified 10/01/21 14:15 Breathing latex Allergy Severe Rash Verified 10/01/21 14:15 morphine [MORPHINE] Allergy Severe Anaphylaxis Verified 10/01/21 14:15 Penicillins [PENICILLINS] Allergy Severe Anaphylaxis Verified 10/01/21 14:15 Sulfa (Sulfonamide Allergy Severe RASH Verified 10/01/21 14:15 Antibiotics) [SULFA (SULFONAMIDE ANTIBIOTICS)] azithromycin Allergy Intermediate Rash Verified 10/01/21 14:15 [From ZITHROMAX Z-MARILYN] cefuroxime [From Ceftin] Allergy Intermediate Rash Verified 10/01/21 14:15 sulfamethoxazole Allergy Intermediate RASH Verified 10/01/21 14:15 [From SEPTRA] trimethoprim [From SEPTRA] Allergy Intermediate RASH Verified 10/01/21 14:15 ciprofloxacin [From Cipro] Allergy Pt does Verified 10/01/21 14:15 not remember reaction Corticosteroids Allergy Swelling Verified 10/01/21 14:15 (Glucocorticoids) of Lip/Tongue/Throat cephalexin [From Keflex] AdvReac Severe Fever, Verified 10/01/21 14:15 Asthma, Tachycardia prednisone AdvReac Severe nausea and Verified 10/01/21 14:15 feels very weak, and axious verapamil AdvReac Intermediate Asthma Verified 10/01/21 14:15 symptoms zonisamide AdvReac Intermediate Asthma Verified 10/01/21 14:15 symptoms Review of Systems Review of Systems Narrative: GENERAL: Denies chills, fatigue, malaise, fever, sweats. HEENT: Denies sinus pain, ear pain, sore throat, difficulty swallowing, dizziness. RESPIRATORY: Denies dyspnea, cough, wheezing, hemoptysis, sputum. CARDIOVASCULAR: Denies chest pain, palpitations, orthopnea, edema, GASTROINTESTINAL: Denies nausea, vomiting, abdominal pain, diarrhea, constipation, melena. : Denies dysuria, frequency, incontinence, hematuria, urinary retention. MUSCULOSKELETAL: See HPI SKIN: See HPI NEUROLOGIC: Denies weakness, headache, numbness, change in speech, confusion, seizures, incoordination. PSYCHIATRIC: No concerning psychosocial issues. 12 point review of systems is negative except for those stated above Patient History Medical History Anemia Anxiety Asthma Chronic back pain Chronic cough Depression Femur fracture, left Fibromyalgia Fractures GERD (gastroesophageal reflux disease) Hiatal hernia Recurrent sinusitis Venous insufficiency (chronic) (peripheral) Surgical History Anesthesia History of eye surgery (~1973) History of foot surgery History of hysterectomy (~1979) History of shoulder surgery (~2011) History of tonsillectomy (~1975) Hx of bilateral cataract extraction Family History Mother Heart disease Sister Heart disease Social History marital status: number of children: 1 household members: none lives independently: Yes caregiver/support person: Yes (3 afternoons per week) pets and animals: Yes occupational status: disabled Smoking Status: Never smoker alcohol intake: never substance use type: does not use Smoking Status: Never smoker alcohol intake frequency: holidays/special occasions only Substance Use Type: does not use Exam Narrative Exam Narrative: GEN: AOx3 and in mild distress EYES: Pupils are equal, round, and reactive to light and accommodation. Extraoccular muscles are intact bilaterally. There is no subconjunctival hemorrhage or exudate. CHEST: Lungs are clear to auscultation bilaterally and free of wheezes, rales, or rhonchi. Heart rate is regular rhythm, there are no murmurs, clicks, rubs, or gallops. There is no chest wall tenderness. ABD: Abdomen is soft and nontender. There is no guarding or rebound. Bowel sounds are normal in all 4 quadrants. There is no mass or organomegaly. EXT: Some generalized tenderness to the right knee, pain on range of motion without any significant effusion or ligamentous laxity. No breaks in the skin at the knee. She does have superficial abrasions with some drainage of serous fluid of a right anterior lakhani, no repair indicated. SKIN: Warm, pink, and dry. No erythema or rash Initial Vital Signs Initial Vital Signs: Vital Signs Temperature 98.2 F 10/11/21 16:48 Pulse Rate 75 10/11/21 16:48 Respiratory Rate 20 10/11/21 16:48 Blood Pressure 132/60 10/11/21 16:48 Pulse Oximetry 97 10/11/21 16:48 Oxygen Delivery Method 10/11/21 16:48 Course Orders Ordered: ED Orders 10/11/21 20:04 XR knee RT 3V Stat 10/11/21 20:05 Wound Culture and Gram Stain Stat 10/11/21 22:19 Chest [XR chest 2V] Stat Discontinued Medications Albuterol (Albuterol 2.5 Mg/3 Ml Neb (Adult)) 2.5 mg INH NOW ONE Stop: 10/11/21 20:33 Last Admin: 10/11/21 20:36 Dose: 2.5 mg Documented By: PARKER Oxycodone/Acetaminophen (Oxycodone/Acetaminophen 5/325 Tablet) 1 tab PO NOW ONE Stop: 10/11/21 20:04 Last Admin: 10/11/21 20:10 Dose: 1 tab Documented By: CHANDA Vital Signs Vital signs: Vital Signs - 8 hr 10/11/21 20:37 10/11/21 21:04 10/11/21 21:30 Pulse Rate 80 82 Respiratory Rate Blood Pressure Pulse Oximetry 97 Oxygen Delivery Method Room Air 10/11/21 22:00 10/11/21 22:13 10/11/21 22:13 Pulse Rate 77 76 Respiratory Rate Blood Pressure 123/59 L Pulse Oximetry 94 Oxygen Delivery Method 10/12/21 00:18 10/11/21 22:30 10/11/21 23:00 Pulse Rate 63 74 76 Respiratory Rate 20 Blood Pressure 113/58 L Pulse Oximetry 97 93 89 L Oxygen Delivery Method Room Air MDM - Skin/Abscess/Foreign Bdy Imaging Data Extremity x-ray #1: Radiologist's Impression: Close Knee X-Ray (Signed) Abimael Lyon - 10/11/21 Launch?[place] [address] XRay Report Signed Patient: Sheryl Lennon MR#: [id number] : 1955 Acct:[id number] Age/Sex: 65 / F Date of Service: 10/11/21 Loc: ED Accession Number: [id number] ?? Procedure: XR knee RT 3V Ordering Provider: Gerson De Jesus D.O. PROCEDURE:? XR KNEE RT 3V ? INDICATIONS:? fall with twisting injury ? TECHNIQUE:? 3 views of the knee were acquired.? ? COMPARISON:? [facility], , XR KNEE RT 1TO2V, 02/22/2021, 14:44. ? FINDINGS:? ? Bones:? No fractures or dislocations.? A right knee prosthesis is redemonstrated.? No new suspicious periprosthetic lucencies.? No suspicious bony lesions.? ? Soft tissues:? There is a suspected small joint effusion.? No suspicious soft tissue calcifications.? There is a curvilinear metallic foreign body along the posterior soft tissues which appears external. ? ? IMPRESSION:? ? 1. No acute fracture or dislocation. ? ? Dictated by: Abimael Lyon M.D. on 10/11/2021 at 22:27 ? ? Approved by: Abimael Lyon M.D. on 10/11/2021 at 22:37 ? Discharge Plan Departure Patient Disposition: Home Clinical Impression: Right knee sprain Qualifiers: Encounter type: initial encounter Involved ligament of knee: unspecified ligament Qualified Code(s): S83.91XA - Sprain of unspecified site of right knee, initial encounter Abrasion of anterior right lower leg Qualifiers: Encounter type: initial encounter Qualified Code(s): S80.811A - Abrasion, right lower leg, initial encounter Instructions: DI for Wound Infection Activity Restrictions/Additional Instructions: *You have been diagnosed with [right knee sprain, right lower extremity abrasion, and mild possible CHF] *What to do: *Please take an extra Lasix each morning for each of the next 3 days and then resume normal dosing. Otherwise please continue to take your regular medications as directed. [x ] New medication prescriptions sent to your pharmacy: [ [facility]] [ ] New medication written as a paper prescription [ ] No new medications given *Please follow up with your primary care provider in 2-3 days, call for an appointment. Let them know you were seen in the Emergency Department and that we ask that you be seen in follow up. We will electronically transmit a record of today's note if your PCP is in our system *If you do not have a primary care provider please contact the [facility] Resource line at [phone]. They will ask some questions about your medical history and help get you set up with a doctor in the community. *Return to Emergency Department if you should have any new, worsening or concerning symptoms, such as [fever greater than 101 F, shaking chills, worsening pain, persistent vomiting or other bothersome symptoms] Prescriptions: New mupirocin 2 % ointment 1 applic topical BID Qty: 15 0RF No Action Spiriva with HandiHaler 18 mcg capsule, w/inhalation device 1 cap inhalation DAILY Rx Instructions: puncture 1 cap using device; one dose = 2 inhalations pramipexole 0.75 mg tablet 0.75 mg PO DAILY ibuprofen 200 mg tablet 200 mg PO Q6H PRN (Reason: Pain (Scale Score 1-3)) gabapentin 600 mg tablet 600 mg PO TID Label Comments: 0700, 1400, 2100 acetaminophen 500 mg capsule 500 mg PO Q6H PRN (Reason: Pain (Scale Score 1-3)) valsartan 40 mg tablet 20 mg PO BID metoprolol succinate 25 mg tablet extended release 24 hr 25 mg PO BID torsemide 20 mg tablet 80 mg PO BID Label Comments: TAKE 2 TABLETS BY MOUTH IN THE MORNING AND 1 TABLET AT NIGHT quetiapine 25 mg tablet 25 mg PO BEDTIME MDD 50MG Qty: 40 5RF Rx Instructions: OK to repeat dose if not sleeping within 1 hour diazepam 5 mg tablet 5 mg PO BID PRN (Reason: anxiety) 30 Days Qty: 60 2RF Trintellix 20 mg tablet 20 mg PO DAILY 30 Days Qty: 30 5RF potassium chloride 20 mEq tablet extended release 10 meq PO DAILY PRN (Reason: Take w/lasix) Rx Instructions: Take w/lasix prn fluticasone propionate 50 mcg/actuation spray,suspension 1 spray intranasal BID Rx Instructions: administer into each nostril methocarbamol 750 mg tablet 750 mg PO TID PRN (Reason: Spasms) Qty: 90 3RF Rx Instructions: PRN epinephrine 0.3 mg/0.3 mL auto-injector 0.3 mg IM ONCE PRN (Reason: Allergic Reaction) Qty: 1 11RF sumatriptan succinate 100 mg tablet See Rx Instructions .ROUTE .COMPLEX Qty: 14 0RF Dose Instruction: TAKE 1 TABLET BY MOUTH ONCE AT ONSET OF MIGRAINE HEADACHE. MAY REPEAT IN 2 HOURS IF NO RELIEF. MAX OF 2 TABLETS PER DAY. Rx Instructions: TAKE 1 TABLET BY MOUTH ONCE AT ONSET OF MIGRAINE HEADACHE. MAY REPEAT IN 2 HOURS IF NO RELIEF. MAX OF 2 TABLETS PER DAY. montelukast 10 mg tablet See Rx Instructions .ROUTE .COMPLEX Qty: 90 0RF Dose Instruction: TAKE 1 TABLET BY MOUTH AT BEDTIME NEEDED FOR ALLERGY SYMPTOMS Rx Instructions: TAKE 1 TABLET BY MOUTH AT BEDTIME NEEDED FOR ALLERGY SYMPTOMS lidocaine 5 % Ointment 1 applic TOPICAL TID PRN (Reason: pain) ketotifen fumarate [Zaditor] 0.025 % (0.035 %) Drops 1 drp OPHTHALMIC (EYE) BID sennosides [senna] 8.6 mg Tablet 17.2 mg PO BEDTIME PRN (Reason: Constipation) diphenhydramine HCl [Benadryl] 25 mg Capsule 75 mg PO DAILY PRN (Reason: Allergy Symptoms) omeprazole 40 mg Capsule,Delayed Release(Dr/Ec) 40 mg PO BID ondansetron 8 mg Tablet,Disintegrating 8 mg PO Q8H PRN (Reason: Nausea) methylprednisolone 4 mg tablet 4 mg PO DAILY 3 Days Qty: 3 0RF Referrals: Maxim Parks MD [Primary Care Provider] - Visit Report Forms: Patient Portal/API
[2021-10-11] MEDS: OXYCODONE/ACETAMINOPHEN 5/325 TABLET 1 TAB PO (20:10)
--- NOTE | 2021-10-11 20:29 | PC.NURSE ---
Pt called staff to room and this RN responded and asked what can be done for her. Pt responded with sarcastic tone well you can call respiratory therapy. Pt informed she doesn't need to speak so rudely to staff. Pt responded, still with sarcastic tone, I'm having an asthma attack so I need respiratory therapy. Pt appears in no acute distress, VSS on RA and pt speaking in full sentances without pausing to breathe. RT called to consult on pt.
[2021-10-11] MEDS: ALBUTEROL 2.5 MG/3 ML NEB (ADULT) INH (20:36)
--- NOTE | 2021-10-11 22:19 | DI.RAD.S_ITS ---
PROCEDURE: XR CHEST 2V INDICATIONS: SOB TECHNIQUE: 2 views of the chest were acquired. COMPARISON: , CR, XR CHEST 1V, 06/04/2021, 12:09. , CR, XR CHEST 1V, 09/07/2021, 17:05. FINDINGS: Surgical changes and devices: Postsurgical changes are partially visualized within proximal left humerus as prior ORIF. Lungs and pleura: There is mild pulmonary vascular prominence with a basilar predominance suggestive mild pulmonary edema. No pleural effusions or pneumothorax. Mediastinum: Mediastinal contours are unchanged. Heart size is borderline enlarged. Bones and chest wall: No suspicious bony abnormalities. Soft tissues appear unremarkable. IMPRESSION: 1. Pulmonary vascular prominence suggestive of mild pulmonary edema. Dictated by: Abimael Lyon M.D. on 10/11/2021 at 23:53 Approved by: Abimael Lyon M.D. on 10/11/2021 at 23:56
[2021-10-12 00:18] VITALS: BP 113/58; PULSE 63; RESP 20; O2SAT 97
== END 2021-10-12 00:21 | disposition home or self-care (01) ==
PROVIDERS: Emergency Provider Emergency Medicine; PCP Family Medicine
DX: S83.91XA Sprain of unspecified site of right knee, initial encounter (principal); S80.811A Abrasion, right lower leg, initial encounter; R06.02 Shortness of breath; X50.1XXA Overexertion from prolonged static or awkward postures, initial encounter
CPT/HCPCS: 71046; 73562; 87070; 87075; 87205; 94640; 99283; J7613

== ENCOUNTER 2021-11-22 21:33 | Emergency (ER) | payer OTHER, MEDICAID, SELFPAY ==
[2021-06-04 16:30] VITALS: BMI 39.6
[2021-11-22 21:49] VITALS: BP 130/64; PULSE 106; RESP 22; TEMP 36.3; O2SAT 96; BMI 35.0
[2021-11-22 22:13] LABS: Hematocrit 34.6 % (36-46); Hemoglobin 11.9 g/dL (12.0-16.0); Mean Corpuscular HGB Conc 34.4 % (30-36); Mean Corpuscular Hemoglobin 27.8 PG (26-34); Mean Corpuscular Volume 80.7 fL (80-100); Platelet Count 276 X10^3/uL (150-400); Red Blood Cell Count 4.29 X10^6/uL (4.0-5.2); Red Cell Distribution Width 16.8 % (11.6-14.8); White Blood Cell Count 9.8 X10^3/uL (4.5-11.0)
[2021-11-22 22:17] LABS: Add Manual Diff / Slide Review YES
[2021-11-22 22:20] LABS: Alanine Aminotransferase 23 IU/L (<35); Albumin 4.3 g/dL (3.5-5.0); Albumin Globulin Ratio 1.3 (1.0-2.8); Alkaline Phosphatase 131 U/L (38-126); Aspartate Aminotransferase 35 IU/L (14-36); Bilirubin Total 0.4 mg/dL (0.2-1.3); Blood Urea Nitrogen 23 mg/dL (7-17); Calcium 9.1 mg/dL (8.4-10.2); Carbon Dioxide 30 mmol/L (22-32); Chloride 97 mmol/L (98-107); Estimated Glomerular Filt Rate > 60 mL/min (>60); Globulin 3.4 g/dL (1.7-4.1); Glucose 147 mg/dL (80-110); HEMOLYSIS < 15 (0-50); Lipase 101 U/L (23-300); Sodium 138 mmol/L (137-145); Total Protein 7.7 g/dL (6.3-8.2)
[2021-11-22 22:33] LABS: Potassium 2.7 mmol/L (3.4-5.1)
--- NOTE | 2021-11-22 22:59 | DI.CT.S_ITS ---
PROCEDURE: CT ABDOMEN PELVIS W CON INDICATIONS: Abdominal pain and large hernia TECHNIQUE: After the administration of IV contrast, axial sections were acquired from the lung bases to the pubic symphysis. Coronal and sagittal reformats were performed. For radiation dose reduction, the following was used: automated exposure control, adjustment of mA and/or kV according to patient size. COMPARISON: [facility], CT, CT CHEST ABD PEL W CON, 07/18/2021, 2:33. [facility], CT, CT ABDOMEN PELVIS WITH CONTRAST, 09/27/2021, 23:18. [facility], CT, CT ABDOMEN PELVIS W CON, 08/31/2021, 21:31. FINDINGS: Image quality: Excellent. Lung bases: There is a small oval hypoattenuating focus in the right hepatic lobe which is too small to characterize Heart: Heart is normal in size. There is a moderate-sized hiatal hernia. ABDOMEN: Liver: There is a small hypoattenuating focus redemonstrated within the right hepatic lobe which is too small to characterize but likely represents a cyst. Gallbladder: Within normal limits without calcified gallstones. Biliary ducts: No biliary ductal dilatation. Pancreas: Unremarkable. Spleen: Normal in size. Adrenal Glands: No adrenal nodules. Kidneys and Ureters: No hydronephrosis. There is a heterogeneous solid right renal mass anteriorly within the right kidney measuring up to 2.3 cm which appears similar in size compared to the prior study of 07/18/2021. Stomach and Bowel: Stomach, small bowel loops, and colon are normal in caliber and wall thickness. Peritoneum: No abnormal intraperitoneal fluid. No free air. Ventral Wall: There is a right anterolateral ventral abdominal wall hernia containing a short segment of the colon. No associated bowel obstruction or strangulation. A minimal fat-containing left abdominal wall hernia is also noted. Wall Abdominal Nodes: No retroperitoneal or mesenteric adenopathy by size criteria. Vessels: Aorta and inferior vena cava are normal in size. PELVIS: Pelvic Organs: The uterus is surgically absent. Bladder: Unremarkable. Pelvic Nodes: No enlarged lymph nodes. Miscellaneous: No inguinal hernias are seen. Bones: Visualized osseous structures demonstrate no suspicious focal lesions. IMPRESSION: 1. Small right anterolateral hernia containing a segment of the colon. No definite associated bowel obstruction or strangulation. 2. Solid right renal mass redemonstrated again likely representing renal cell carcinoma. 3. Moderate size diaphragmatic hernia. Dictated by: Abimael Lyon M.D. on 11/23/2021 at 0:27 Approved by: Abimael Lyon M.D. on 11/23/2021 at 0:35
[2021-11-22] MEDS: diphenhydrAMINE 50 MG/ML VIAL 25 MG IV (23:20)
[2021-11-22] MEDS: methylPREDNISolone 125 MG/2 ML VIAL IV (23:20)
[2021-11-23 03:02] VITALS: BP 127/62
[2021-11-23 03:03] VITALS: PULSE 79; O2SAT 95
[2021-11-23 03:04] VITALS: BP 127/62; PULSE 82; RESP 20; O2SAT 95
--- NOTE | 2021-11-23 03:15 | ED_ITS ---
HPI - Abdominal Pain <Allyssa Kangsunshine, DO - Last Filed: 11/24/21 01:21> General Chief Complaint: Abdominal Pain Stated Complaint: states hernia has doubled in size Time Seen by Provider: 11/23/21 02:58 Source: patient Mode of arrival: Wheelchair History of Present Illness HPI narrative: Patient is a 66-year-old female who is well known to this facility and myself, she has known ventral hernia which previously was not operable he also has known renal mass is presents today with abdominal pain. She said she was in her kitchen she was wearing her abdominal binder but felt pain and then had sudden hardness in pain on her right side after she took her binder off. No nausea or vomiting no change in bowel habits. No fever or chills. She states that the kidney doctor let her go in said that it was not cancer however I am not sure I believe his that. She also states that she was at the [place] recently were she did get IV potassium. She does have low potassium she frequently has breathing problems she says she has not used her inhaler for some time. She was previously using it daily but does not needed daily and more. She has no chest pain. Record from [facility] have been received. She was actually seen there on November 19 for very similar symptoms she had a CT is which showed chronic hernias and renal cell carcinoma. She was also found to be hypokalemic is with a potassium 2.6. Apparently evaluated by surgery for repair of her hernias. She has a BMI of 38 it was thought that a 2nd opinion should be placed at [facility]. Related Data Home Medications Medication Instructions Recorded Confirmed sennosides 8.6 mg tablet (senna) 17.2 mg PO BEDTIME PRN Constipation 09/20/18 08/19/21 potassium chloride 20 mEq 10 meq PO DAILY PRN Take w/lasix 10/29/18 08/19/21 tablet,extended release diphenhydramine HCl 25 mg capsule 75 mg PO DAILY PRN Allergy Symptoms 10/26/19 09/27/21 (Benadryl) omeprazole 40 mg capsule,delayed 40 mg PO BID 02/10/20 08/19/21 release lidocaine 5 % topical ointment 1 applic topical TID PRN pain 02/24/20 09/27/21 ketotifen fumarate 0.025 % (0.035 1 drp ophthalmic (eye) BID 03/02/20 09/27/21 %) eye drops (Zaditor) fluticasone propionate 50 1 spray intranasal BID 04/02/20 09/27/21 mcg/actuation nasal spray,suspension ondansetron 8 mg disintegrating 8 mg PO Q8H PRN Nausea 06/29/20 08/19/21 tablet metoprolol succinate 25 mg 25 mg PO BID 01/27/21 08/19/21 tablet,extended release 24 hr valsartan 40 mg tablet 20 mg PO BID 01/27/21 08/19/21 acetaminophen 500 mg capsule 500 mg PO Q6H PRN Pain (Scale 04/11/21 09/27/21 Score 1-3) gabapentin 600 mg tablet 600 mg PO TID 04/11/21 09/27/21 ibuprofen 200 mg tablet 200 mg PO Q6H PRN Pain (Scale 04/11/21 09/27/21 Score 1-3) pramipexole 0.75 mg tablet 0.75 mg PO DAILY 04/11/21 09/27/21 tiotropium bromide 18 mcg capsule 1 cap inhalation DAILY 04/11/21 08/19/21 with inhalation device (Spiriva with HandiHaler) torsemide 20 mg tablet 80 mg PO BID 08/19/21 08/19/21 Previous Rx's Medication Instructions Recorded methocarbamol 750 mg tablet 750 mg PO TID PRN Spasms #90 tabs 09/29/19 epinephrine 0.3 mg/0.3 mL 0.3 mg (0.3 mL) IM ONCE PRN 01/01/20 injection, auto-injector Allergic Reaction #1 ea methylprednisolone 4 mg tablet 4 mg PO DAILY 3 days #3 tabs 06/06/21 montelukast 10 mg tablet See Rx Instructions .Route 07/26/21 .COMPLEX #90 tabs sumatriptan succinate 100 mg tablet See Rx Instructions .Route 07/26/21 .COMPLEX #14 tabs Trintellix 20 mg tablet 20 mg PO DAILY 30 days #30 tabs 09/27/21 (vortioxetine) diazepam 5 mg tablet 5 mg PO BID PRN anxiety 30 days 09/27/21 #60 tabs quetiapine 25 mg tablet 25 mg PO BEDTIME #40 tabs 09/27/21 mupirocin 2 % topical ointment 1 applic topical BID #15 grams 10/12/21 hydrocodone 5 mg-acetaminophen 325 1 tab PO Q6H PRN pain #7 tabs 11/23/21 mg tablet potassium chloride 20 mEq 40 meq PO DAILY #20 tabs 11/23/21 tablet,extended release Allergies Allergy/AdvReac Type Severity Reaction Status Date / Time Iodinated Contrast Media Allergy Severe Difficulty Verified 11/22/21 21:49 Breathing iodine Allergy Severe Difficulty Verified 11/22/21 21:49 Breathing latex Allergy Severe Rash Verified 11/22/21 21:49 morphine [MORPHINE] Allergy Severe Anaphylaxis Verified 11/22/21 21:49 Penicillins [PENICILLINS] Allergy Severe Anaphylaxis Verified 11/22/21 21:49 Sulfa (Sulfonamide Allergy Severe RASH Verified 11/22/21 21:49 Antibiotics) [SULFA (SULFONAMIDE ANTIBIOTICS)] azithromycin Allergy Intermediate Rash Verified 11/22/21 21:49 [From ZITHROMAX Z-MARILYN] cefuroxime [From Ceftin] Allergy Intermediate Rash Verified 11/22/21 21:49 sulfamethoxazole Allergy Intermediate RASH Verified 11/22/21 21:49 [From SEPTRA] trimethoprim [From SEPTRA] Allergy Intermediate RASH Verified 11/22/21 21:49 ciprofloxacin [From Cipro] Allergy Pt does Verified 11/22/21 21:49 not remember reaction Corticosteroids Allergy Swelling Verified 11/22/21 21:49 (Glucocorticoids) of Lip/Tongue/Throat cephalexin [From Keflex] AdvReac Severe Fever, Verified 11/22/21 21:49 Asthma, Tachycardia prednisone AdvReac Severe nausea and Verified 11/22/21 21:49 feels very weak, and axious verapamil AdvReac Intermediate Asthma Verified 11/22/21 21:49 symptoms zonisamide AdvReac Intermediate Asthma Verified 11/22/21 21:49 symptoms Review of Systems <Allyssa Limon, - Last Filed: 11/24/21 01:21> Review of Systems Narrative: GENERAL: Denies chills, fatigue, malaise, fever, sweats, travel HEENT: Denies sinus pain, ear pain, sore throat, difficulty swallowing, neck pain RESPIRATORY: Denies dyspnea, cough, wheezing, hemoptysis, sputum. CARDIOVASCULAR: Denies chest pain, palpitations, orthopnea, edema GASTROINTESTINAL: See HPI : Denies dysuria, frequency, incontinence, hematuria, urinary retention, flank pain. MUSCULOSKELETAL: Denies weakness, joint pain, or bony pain SKIN: No rash, no erythema, no pruritus NEUROLOGIC: Denies weakness, dizziness, headache, numbness, change in speech, confusion PSYCHIATRIC: No concerning psychosocial issues. 12 point review of systems is negative except for those stated above and HPI Patient History <Allyssa Limon DO - Last Filed: 11/24/21 01:21> Medical History Anemia Anxiety Asthma Chronic back pain Chronic cough Depression Femur fracture, left Fibromyalgia Fractures GERD (gastroesophageal reflux disease) Hiatal hernia Recurrent sinusitis Venous insufficiency (chronic) (peripheral) Surgical History Anesthesia History of eye surgery (~1973) History of foot surgery History of hysterectomy (~1979) History of shoulder surgery (~2011) History of tonsillectomy (~1975) Hx of bilateral cataract extraction Family History Mother Heart disease Sister Heart disease Social History marital status: number of children: 1 household members: none lives independently: Yes caregiver/support person: Yes (3 afternoons per week) pets and animals: Yes occupational status: disabled Smoking Status: Never smoker alcohol intake: never substance use type: does not use Smoking Status: Never smoker alcohol intake frequency: holidays/special occasions only Substance Use Type: does not use Exam <Allyssa Limon DO - Last Filed: 11/24/21 01:21> Initial Vital Signs Initial Vital Signs: Vital Signs Temperature 97.3 F L 11/22/21 21:49 Pulse Rate 106 H 11/22/21 21:49 Respiratory Rate 22 11/22/21 21:49 Blood Pressure 130/64 11/22/21 21:49 Pulse Oximetry 96 11/22/21 21:49 Oxygen Delivery Method 11/22/21 21:49 GENERAL: Alert pleasant 66-year-old female HEENT: Head atraumatic,EOMI, pupils reactive, face symmetric, moist mucous membranes CARDIOVASCULAR: Regular rate and rhythm without murmurs, rubs or gallops. RESPIRATORY: Breath sounds equal bilaterally, no wheezes rales or rhonchi. ABDOMEN: Soft, ventral hernia noted right side is slightly hard but is easily Laurie reducible normal bowel sounds EXTREMITIES: Normal range of motion, no clubbing or edema. Neurovascularly intact NEUROLOGICAL: Alert and oriented x4.Normal gait and speech. SKIN: Warm, dry, no laceration, no petechiae, no rashes or lesions. <Tara Galvez, DO - Last Filed: 11/23/21 20:07> Initial Vital Signs Initial Vital Signs: Vital Signs Temperature 97.3 F L 11/22/21 21:49 Pulse Rate 106 H 11/22/21 21:49 Respiratory Rate 22 11/22/21 21:49 Blood Pressure 130/64 11/22/21 21:49 Pulse Oximetry 96 11/22/21 21:49 Oxygen Delivery Method 11/22/21 21:49 Course <Allyssa Limon, DO - Last Filed: 11/24/21 01:21> Orders Ordered: Discontinued Medications Diphenhydramine HCl (Diphenhydramine 50 Mg/Ml Vial) 25 mg IV NOW ONE Stop: 11/22/21 23:15 Last Admin: 11/22/21 23:20 Dose: 25 mg Documented By: EUGENIA Hydromorphone HCl (Hydromorphone 0.5 Mg Inj) 0.5 mg IV NOW ONE Stop: 11/23/21 03:48 Last Admin: 11/23/21 03:51 Dose: 0.5 mg Documented By: CALVIN Hydromorphone HCl (Hydromorphone 0.5 Mg Inj) 0.5 mg IV NOW ONE Stop: 11/23/21 07:44 Last Admin: 11/23/21 08:26 Dose: 0.5 mg Documented By: TIESHA POTASSIUM CHLORIDE IN WATER (Potassium Cl 10 Meq/100 Ml Rebecca) 10 meq in 100 mls @ 100 mls/hr IV Q1H ZHANG Stop: 11/23/21 07:14 Last Infusion: 11/23/21 10:29 Dose: 0 mls/hr Documented By: Admin: 11/23/21 08:29 Dose: 100 mls/hr Documented By: Infusion: 11/23/21 07:51 Dose: 100 mls/hr Documented By: Admin: 11/23/21 06:51 Dose: 100 mls/hr Documented By: Infusion: 11/23/21 06:50 Dose: 0 mls/hr Documented By: Admin: 11/23/21 04:38 Dose: 100 mls/hr Documented By: Infusion: 11/23/21 04:37 Dose: 0 mls/hr Documented By: Admin: 11/23/21 03:29 Dose: 100 mls/hr Documented By: CALVIN Methylprednisolone (Methylprednisolone 125 Mg/2 Ml Vial) 125 mg IV NOW ONE Stop: 11/22/21 23:15 Last Admin: 11/22/21 23:20 Dose: 125 mg Documented By: EUGENIA Vital Signs Vital signs: Vital Signs - 8 hr 11/23/21 15:28 Pulse Rate 69 Respiratory Rate 16 Blood Pressure 128/76 Pulse Oximetry 99 Oxygen Delivery Method Room Air <Tara Galvez, - Last Filed: 11/23/21 20:07> Orders Ordered: Discontinued Medications Diphenhydramine HCl (Diphenhydramine 50 Mg/Ml Vial) 25 mg IV NOW ONE Stop: 11/22/21 23:15 Last Admin: 11/22/21 23:20 Dose: 25 mg Documented By: EUGENIA Hydromorphone HCl (Hydromorphone 0.5 Mg Inj) 0.5 mg IV NOW ONE Stop: 11/23/21 03:48 Last Admin: 11/23/21 03:51 Dose: 0.5 mg Documented By: CALVIN Hydromorphone HCl (Hydromorphone 0.5 Mg Inj) 0.5 mg IV NOW ONE Stop: 11/23/21 07:44 Last Admin: 11/23/21 08:26 Dose: 0.5 mg Documented By: TIESHA POTASSIUM CHLORIDE IN WATER (Potassium Cl 10 Meq/100 Ml Rebecca) 10 meq in 100 mls @ 100 mls/hr IV Q1H ZHANG Stop: 11/23/21 07:14 Last Infusion: 11/23/21 10:29 Dose: 0 mls/hr Documented By: Admin: 11/23/21 08:29 Dose: 100 mls/hr Documented By: Infusion: 11/23/21 07:51 Dose: 100 mls/hr Documented By: Admin: 11/23/21 06:51 Dose: 100 mls/hr Documented By: Infusion: 11/23/21 06:50 Dose: 0 mls/hr Documented By: Admin: 11/23/21 04:38 Dose: 100 mls/hr Documented By: Infusion: 11/23/21 04:37 Dose: 0 mls/hr Documented By: Admin: 11/23/21 03:29 Dose: 100 mls/hr Documented By: CALVIN Methylprednisolone (Methylprednisolone 125 Mg/2 Ml Vial) 125 mg IV NOW ONE Stop: 11/22/21 23:15 Last Admin: 11/22/21 23:20 Dose: 125 mg Documented By: EUGENIA Vital Signs Vital signs: Vital Signs - 8 hr 11/23/21 15:28 Pulse Rate 69 Respiratory Rate 16 Blood Pressure 128/76 Pulse Oximetry 99 Oxygen Delivery Method Room Air MDM - Abdominal Pain <Allyssa Limon DO - Last Filed: 11/24/21 01:21> Lab Data Result diagrams: 11/22/21 21:50 11/22/21 21:50 Labs: Lab Results 11/22/21 11/22/21 Range/Units 21:50 21:50 WBC 9.8 (4.5-11.0) X10^3/uL RBC 4.29 (4.0-5.2) X10^6/uL Hgb 11.9 L (12.0-16.0) g/dL Hct 34.6 L (36-46) % MCV 80.7 (80-100) fL MCH 27.8 (26-34) PG MCHC 34.4 (30-36) % RDW 16.8 H (11.6-14.8) % Plt Count 276 (150-400) X10^3/uL Neut % (Auto) Not Reportable Lymph % (Auto) Not Reportable [place] % (Auto) Not Reportable Eos % (Auto) Not Reportable Baso % (Auto) Not Reportable Lymph # (Auto) Not Reportable [place] # (Auto) Not Reportable Baso # (Auto) Not Reportable Total Counted 100 Seg Neutrophils % 64.0 (38-70) % Lymphocytes % (Manual) 23.0 L (25-45) % Atypical Lymphs % 2.0 H ( - 0) % Monocytes % (Manual) 10.0 (2-11) % Eosinophils % (Manual) 1.0 L (2-4) % Neutrophils # (Manual) 6272 H (7827-2899) /uL RBC Morphology Not Reportable Anisocytosis 2+ H Sodium 138 (137-145) mmol/L Potassium 2.7 L* (3.4-5.1) mmol/L Chloride 97 L (98-107) mmol/L Carbon Dioxide 30 (22-32) mmol/L BUN 23 H (7-17) mg/dL Creatinine 1.00 (0.52-1.04) mg/dL Estimated GFR > 60 (>60) mL/min BUN/Creatinine Ratio 23.0 H (6-22) Glucose 147 H (80-110) mg/dL Calcium 9.1 (8.4-10.2) mg/dL Total Bilirubin 0.4 (0.2-1.3) mg/dL AST 35 (14-36) IU/L ALT 23 (<35) IU/L Alkaline Phosphatase 131 H (38-126) U/L Total Protein 7.7 (6.3-8.2) g/dL Albumin 4.3 (3.5-5.0) g/dL Globulin 3.4 (1.7-4.1) g/dL Albumin/Globulin Ratio 1.3 (1.0-2.8) Lipase 101 (23-300) U/L Imaging Data CT scan - abdomen/pelvis: Radiologist's Impression: ?Sheryl Lennon MR#: [id number] : 1955 Acct:[id number] Age/Sex: 66 / F Date of Service: 11/22/21 Loc: ED Accession Number: [id number] ?? Procedure: CT abdomen pelvis w con Ordering Provider: Allyssa Limon D.O. PROCEDURE:? CT ABDOMEN PELVIS W CON ? INDICATIONS:? Abdominal pain and large hernia ? TECHNIQUE:? After the administration of IV contrast, axial sections were acquired from the lung bases to the pubic symphysis.? Coronal and sagittal reformats were performed.? For radiation dose reduction, the following was used:? automated exposure control, adjustment of mA and/or kV according to patient size. ? COMPARISON:? [facility], CT, CT CHEST ABD PEL W CON, 07/18/2021, 2:33.? Or [facility], CT, CT ABDOMEN PELVIS WITH CONTRAST, 09/27/2021, 23:18.? [facility], CT, CT ABDOMEN PELVIS W CON, 08/31/2021, 21:31. ? FINDINGS:? Image quality:? Excellent.? ? Lung bases:? There is a small oval hypoattenuating focus in the right hepatic lobe which is too small to characterize Heart:? Heart is normal in size.? There is a moderate-sized hiatal hernia. ? ? ABDOMEN: Liver:? There is a small hypoattenuating focus redemonstrated within the right hepatic lobe which is too small to characterize but likely represents a cyst. Gallbladder:? Within normal limits without calcified gallstones.? ? Biliary ducts:? No biliary ductal dilatation.? ? Pancreas:? Unremarkable.? ? Spleen:? Normal in size.? ? Adrenal Glands:? No adrenal nodules.? ? Kidneys and Ureters:? No hydronephrosis.? There is a heterogeneous solid right renal mass anteriorly within the right kidney measuring up to 2.3 cm which appears similar in size compared to the prior study of 07/18/2021. ? ? Stomach and Bowel:? Stomach, small bowel loops, and colon are normal in caliber and wall thickness.? Peritoneum:? No abnormal intraperitoneal fluid.? No free air.? ? Ventral Wall: ? There is a right anterolateral ventral abdominal wall hernia containing a short segment of the colon.? No associated bowel obstruction or strangulation.? A minimal fat-containing left abdominal wall hernia is also noted.? Wall Abdominal Nodes:? No retroperitoneal or mesenteric adenopathy by size criteria.? Vessels:? Aorta and inferior vena cava are normal in size.? ? PELVIS: Pelvic Organs:? The uterus is surgically absent.? ? Bladder:? Unremarkable.? ? Pelvic Nodes: No enlarged lymph nodes.? Miscellaneous: No inguinal hernias are seen. ? ? ? Bones:? Visualized osseous structures demonstrate no suspicious focal lesions. ? IMPRESSION:? ? 1. Small right anterolateral hernia containing a segment of the colon.? No definite associated bowel obstruction or strangulation. ? 2. Solid right renal mass redemonstrated again likely representing renal cell carcinoma. ? 3. Moderate size diaphragmatic hernia.? ? ? Dictated by: Abimael Lyon M.D. on 11/23/2021 at 0:27 ? ? Approved by: Abimael Lyon M.D. on 11/23/2021 at 0:3 MDM Narrative Medical decision making narrative: The patient has likely renal cell carcinoma and chronic hernias without sign of bowel obstruction or strangulation. Potassium today is 2.7 it is low frequently however it is usually above 3. Earlier this week at [facility] her potassium was 2.6 he received 10 mEq IVPB his and 40 p.o.. Today it is 2.7 she is receiving 40 mEq IVPB. She has potassium replacement at home. His at this point she has chronic ventral hernias which are not incarcerated or causing problems at this time. Patient does seem to be obsessed with her hernias which are not surgical. I have repeated to her that she has renal cell carcinoma and she needs to have this checked. Patient signed out to Dr. Galvez. Awaiting for potassium replacement and then probable discharge <Tara Galvez, - Last Filed: 11/23/21 20:07> Lab Data Labs: Lab Results 11/22/21 11/22/21 Range/Units 21:50 21:50 WBC 9.8 (4.5-11.0) X10^3/uL RBC 4.29 (4.0-5.2) X10^6/uL Hgb 11.9 L (12.0-16.0) g/dL Hct 34.6 L (36-46) % MCV 80.7 (80-100) fL MCH 27.8 (26-34) PG MCHC 34.4 (30-36) % RDW 16.8 H (11.6-14.8) % Plt Count 276 (150-400) X10^3/uL Neut % (Auto) Not Reportable Lymph % (Auto) Not Reportable [place] % (Auto) Not Reportable Eos % (Auto) Not Reportable Baso % (Auto) Not Reportable Lymph # (Auto) Not Reportable [place] # (Auto) Not Reportable Baso # (Auto) Not Reportable Total Counted 100 Seg Neutrophils % 64.0 (38-70) % Lymphocytes % (Manual) 23.0 L (25-45) % Atypical Lymphs % 2.0 H ( - 0) % Monocytes % (Manual) 10.0 (2-11) % Eosinophils % (Manual) 1.0 L (2-4) % Neutrophils # (Manual) 6272 H (8263-3853) /uL RBC Morphology Not Reportable Anisocytosis 2+ H Sodium 138 (137-145) mmol/L Potassium 2.7 L* (3.4-5.1) mmol/L Chloride 97 L (98-107) mmol/L Carbon Dioxide 30 (22-32) mmol/L BUN 23 H (7-17) mg/dL Creatinine 1.00 (0.52-1.04) mg/dL Estimated GFR > 60 (>60) mL/min BUN/Creatinine Ratio 23.0 H (6-22) Glucose 147 H (80-110) mg/dL Calcium 9.1 (8.4-10.2) mg/dL Total Bilirubin 0.4 (0.2-1.3) mg/dL AST 35 (14-36) IU/L ALT 23 (<35) IU/L Alkaline Phosphatase 131 H (38-126) U/L Total Protein 7.7 (6.3-8.2) g/dL Albumin 4.3 (3.5-5.0) g/dL Globulin 3.4 (1.7-4.1) g/dL Albumin/Globulin Ratio 1.3 (1.0-2.8) Lipase 101 (23-300) U/L [facility] Narrative Medical decision making narrative: The patient has likely renal cell carcinoma and chronic hernias without sign of bowel obstruction or strangulation. Potassium today is 2.7 it is low frequently however it is usually above 3. Earlier this week at [facility] her potassium was 2.6 he received 10 mEq IVPB his and 40 p.o.. Today it is 2.7 she is receiving 40 mEq IVPB. She has potassium replacement at home. His at this point she has chronic ventral hernias which are not incarcerated or causing problems at this time. Patient does seem to be obsessed with her hernias which are not surgical. I have repeated to her that she has renal cell carcinoma and she needs to have this checked. Patient signed out to Dr. Galvez. Awaiting for potassium replacement and then probable discharge 11/23/21 0572 Lenny: Patient signed out to myself with known likely renal cell carcinoma and chronic hernias no sign of bowel obstruction or strangulation. Patient is currently receiving potassium replacement. She was seen and inde pendently evaluated by myself. Patient is eating and drinking here in the department. Labs reviewed. Reviewed patient's findings today. Patient and I discussed increasing her potassium supplementation she states she is taking it daily. Patient and I reviewed hernia she says she has follow-up regarding the mass in her kidney but also told the nighttime doctor this was possibly for her hernia. There is no signs of incarceration on exam today. She states she will follow up she also expresses some interest in following up with the [place] [facility] and her information was relayed. Discharge Plan Departure Patient Disposition: Home Clinical Impression: Hypokalemia, Kidney mass Activity Restrictions/Additional Instructions: You have a large kidney mass that is probably cancer. It is important for you to follow-up with Oncology and Nephrology for this as discussed in the past. Your hernia maybe helped with an abdominal binder but your case has been discussed with surgery in the past and they have felt you are not a candidate for surgical intervention. Please continue your home medications. Increase your potassium supplementation to 40 meq daily and have your potassium level rechecked this week. Included is also a prescription for pain medication. Narcotic info Prescription sent to [facility] in [place]. Please come back for increasing weakness, passing out, chest pain, shortness of breath, vomiting, not having any stool, diarrhea or other new or concerning symptoms. Prescriptions: New potassium chloride 20 mEq tablet extended release 40 meq PO DAILY Qty: 20 0RF hydrocodone-acetaminophen 5-325 mg tablet 1 tab PO Q6H PRN (Reason: pain) Qty: 7 0RF No Action Spiriva with HandiHaler 18 mcg capsule, w/inhalation device 1 cap inhalation DAILY Rx Instructions: puncture 1 cap using device; one dose = 2 inhalations pramipexole 0.75 mg tablet 0.75 mg PO DAILY ibuprofen 200 mg tablet 200 mg PO Q6H PRN (Reason: Pain (Scale Score 1-3)) gabapentin 600 mg tablet 600 mg PO TID Label Comments: 0700, 1400, 2100 acetaminophen 500 mg capsule 500 mg PO Q6H PRN (Reason: Pain (Scale Score 1-3)) valsartan 40 mg tablet 20 mg PO BID metoprolol succinate 25 mg tablet extended release 24 hr 25 mg PO BID torsemide 20 mg tablet 80 mg PO BID Label Comments: TAKE 2 TABLETS BY MOUTH IN THE MORNING AND 1 TABLET AT NIGHT quetiapine 25 mg tablet 25 mg PO BEDTIME MDD 50MG Qty: 40 5RF Rx Instructions: OK to repeat dose if not sleeping within 1 hour diazepam 5 mg tablet 5 mg PO BID PRN (Reason: anxiety) 30 Days Qty: 60 2RF Trintellix 20 mg tablet 20 mg PO DAILY 30 Days Qty: 30 5RF potassium chloride 20 mEq tablet extended release 10 meq PO DAILY PRN (Reason: Take w/lasix) Rx Instructions: Take w/lasix prn fluticasone propionate 50 mcg/actuation spray,suspension 1 spray intranasal BID Rx Instructions: administer into each nostril methocarbamol 750 mg tablet 750 mg PO TID PRN (Reason: Spasms) Qty: 90 3RF Rx Instructions: PRN epinephrine 0.3 mg/0.3 mL auto-injector 0.3 mg IM ONCE PRN (Reason: Allergic Reaction) Qty: 1 11RF sumatriptan succinate 100 mg tablet See Rx Instructions .ROUTE .COMPLEX Qty: 14 0RF Dose Instruction: TAKE 1 TABLET BY MOUTH ONCE AT ONSET OF MIGRAINE HEADACHE. MAY REPEAT IN 2 HOURS IF NO RELIEF. MAX OF 2 TABLETS PER DAY. Rx Instructions: TAKE 1 TABLET BY MOUTH ONCE AT ONSET OF MIGRAINE HEADACHE. MAY REPEAT IN 2 HOURS IF NO RELIEF. MAX OF 2 TABLETS PER DAY. montelukast 10 mg tablet See Rx Instructions .ROUTE .COMPLEX Qty: 90 0RF Dose Instruction: TAKE 1 TABLET BY MOUTH AT BEDTIME NEEDED FOR ALLERGY SYMPTOMS Rx Instructions: TAKE 1 TABLET BY MOUTH AT BEDTIME NEEDED FOR ALLERGY SYMPTOMS lidocaine 5 % Ointment 1 applic TOPICAL TID PRN (Reason: pain) ketotifen fumarate [Zaditor] 0.025 % (0.035 %) Drops 1 drp OPHTHALMIC (EYE) BID sennosides [senna] 8.6 mg Tablet 17.2 mg PO BEDTIME PRN (Reason: Constipation) diphenhydramine HCl [Benadryl] 25 mg Capsule 75 mg PO DAILY PRN (Reason: Allergy Symptoms) omeprazole 40 mg Capsule,Delayed Release(Dr/Ec) 40 mg PO BID ondansetron 8 mg Tablet,Disintegrating 8 mg PO Q8H PRN (Reason: Nausea) methylprednisolone 4 mg tablet 4 mg PO DAILY 3 Days Qty: 3 0RF mupirocin 2 % ointment 1 applic topical BID Qty: 15 0RF Referrals: Bal,Indeep, MD [Primary Care Provider] - Visit Report Forms: Patient Portal/API
[2021-11-23] MEDS: POTASSIUM CHLORIDE IN WATER 10 MEQ/100 ML PIGGYBACK 100 MEQ IV ×4 (03:29→08:29)
[2021-11-23] MEDS: HYDROMORPHONE 0.5 MG INJ IV ×2 (03:51→08:26)
--- NOTE | 2021-11-23 03:58 | PC.NURSE ---
Patient placed on continuous awake overnight monitor, BP cuff and 02 probe prior to start of potassium.
[2021-11-23 06:09] VITALS: BP 128/70; PULSE 68; RESP 16; O2SAT 98
[2021-11-23 06:55] LABS: Anisocytosis 2+; Neutrophils Absolute Manual 6272 /uL (3000-5900); Total Cells Counted 100
--- NOTE | 2021-11-23 09:48 | PC.NURSE ---
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 Pt medicated with Dilaudid 0.5 mg @0836am. Provider made aware. Discussed my limitations as a non prescriber. Offered non pharmaceutical pain relieve w/ position change, cold packs & declined.
[2021-11-23 15:28] VITALS: BP 128/76; PULSE 69; RESP 16; O2SAT 99
== END 2021-11-23 12:40 | disposition home or self-care (01) ==
PROVIDERS: Emergency Medicine; Emergency Provider Emergency Medicine; PCP Family Medicine
DX: E87.6 Hypokalemia (principal); N28.89 Other specified disorders of kidney and ureter
CPT/HCPCS: 36415; 74177; 80053; 83690; 85007; 85025; 96365; 96366; 96375; 96376; 99284; J1170; J1200; J2930; Q9967

== ENCOUNTER 2021-12-08 15:03 | Emergency (ER) | payer OTHER, MEDICAID, SELFPAY ==
[2021-06-04 16:30] VITALS: BMI 39.6
[2021-12-08 15:11] VITALS: BP 125/61; PULSE 66; RESP 16; TEMP 36.1; O2SAT 97; BMI 33.6
--- NOTE | 2021-12-08 15:34 | ED.WEAKNESS ---
HPI - Weakness <Yo Griffith PA-C - Last Filed: 12/08/21 15:51> General Chief complaint: Weakness Stated complaint: weakness Time Seen by Provider: 12/08/21 15:11 Source: patient Mode of arrival: EMS History of Present Illness HPI Narrative: This is a 66-year-old female presents to the department due to worsening weakness while taking her dog on a walk. States that it took her 2 hours ago 6 blocks while walking. States she is a history of congestive heart failure has been taking her medications as prescribed. 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 Denies any chest pain, shortness of breath, nausea, vomiting, abdominal pain, or any other concerning signs or symptoms. Related Data Home Medications Medication Instructions Recorded Confirmed sennosides 8.6 mg tablet (senna) 17.2 mg PO BEDTIME PRN Constipation 09/20/18 08/19/21 potassium chloride 20 mEq 10 meq PO DAILY PRN Take w/lasix 10/29/18 08/19/21 tablet,extended release diphenhydramine HCl 25 mg capsule 75 mg PO DAILY PRN Allergy Symptoms 10/26/19 09/27/21 (Benadryl) omeprazole 40 mg capsule,delayed 40 mg PO BID 02/10/20 08/19/21 release lidocaine 5 % topical ointment 1 applic topical TID PRN pain 02/24/20 09/27/21 ketotifen fumarate 0.025 % (0.035 1 drp ophthalmic (eye) BID 03/02/20 09/27/21 %) eye drops (Zaditor) fluticasone propionate 50 1 spray intranasal BID 04/02/20 09/27/21 mcg/actuation nasal spray,suspension ondansetron 8 mg disintegrating 8 mg PO Q8H PRN Nausea 06/29/20 08/19/21 tablet metoprolol succinate 25 mg 25 mg PO BID 01/27/21 08/19/21 tablet,extended release 24 hr valsartan 40 mg tablet 20 mg PO BID 01/27/21 08/19/21 acetaminophen 500 mg capsule 500 mg PO Q6H PRN Pain (Scale 04/11/21 09/27/21 Score 1-3) gabapentin 600 mg tablet 600 mg PO TID 04/11/21 09/27/21 ibuprofen 200 mg tablet 200 mg PO Q6H PRN Pain (Scale 04/11/21 09/27/21 Score 1-3) pramipexole 0.75 mg tablet 0.75 mg PO DAILY 04/11/21 09/27/21 tiotropium bromide 18 mcg capsule 1 cap inhalation DAILY 04/11/21 08/19/21 with inhalation device (Spiriva with HandiHaler) torsemide 20 mg tablet 80 mg PO BID 08/19/21 08/19/21 Previous Rx's Medication Instructions Recorded methocarbamol 750 mg tablet 750 mg PO TID PRN Spasms #90 tabs 09/29/19 epinephrine 0.3 mg/0.3 mL 0.3 mg (0.3 mL) IM ONCE PRN 01/01/20 injection, auto-injector Allergic Reaction #1 ea methylprednisolone 4 mg tablet 4 mg PO DAILY 3 days #3 tabs 06/06/21 montelukast 10 mg tablet See Rx Instructions .Route 07/26/21 .COMPLEX #90 tabs sumatriptan succinate 100 mg tablet See Rx Instructions .Route 07/26/21 .COMPLEX #14 tabs Trintellix 20 mg tablet 20 mg PO DAILY 30 days #30 tabs 09/27/21 (vortioxetine) diazepam 5 mg tablet 5 mg PO BID PRN anxiety 30 days 09/27/21 #60 tabs quetiapine 25 mg tablet 25 mg PO BEDTIME #40 tabs 09/27/21 mupirocin 2 % topical ointment 1 applic topical BID #15 grams 10/12/21 hydrocodone 5 mg-acetaminophen 325 1 tab PO Q6H PRN pain #7 tabs 11/23/21 mg tablet potassium chloride 20 mEq 40 meq PO DAILY #20 tabs 11/23/21 tablet,extended release Allergies Allergy/AdvReac Type Severity Reaction Status Date / Time Iodinated Contrast Media Allergy Severe Difficulty Verified 12/08/21 15:11 Breathing iodine Allergy Severe Difficulty Verified 12/08/21 15:11 Breathing latex Allergy Severe Rash Verified 12/08/21 15:11 morphine [MORPHINE] Allergy Severe Anaphylaxis Verified 12/08/21 15:11 Penicillins [PENICILLINS] Allergy Severe Anaphylaxis Verified 12/08/21 15:11 Sulfa (Sulfonamide Allergy Severe RASH Verified 12/08/21 15:11 Antibiotics) [SULFA (SULFONAMIDE ANTIBIOTICS)] azithromycin Allergy Intermediate Rash Verified 12/08/21 15:11 [From ZITHROMAX Z-MARILYN] cefuroxime [From Ceftin] Allergy Intermediate Rash Verified 12/08/21 15:11 sulfamethoxazole Allergy Intermediate RASH Verified 12/08/21 15:11 [From SEPTRA] trimethoprim [From SEPTRA] Allergy Intermediate RASH Verified 12/08/21 15:11 ciprofloxacin [From Cipro] Allergy Pt does Verified 12/08/21 15:11 not remember reaction Corticosteroids Allergy Swelling Verified 12/08/21 15:11 (Glucocorticoids) of Lip/Tongue/Throat cephalexin [From Keflex] AdvReac Severe Fever, Verified 12/08/21 15:11 Asthma, Tachycardia prednisone AdvReac Severe nausea and Verified 12/08/21 15:11 feels very weak, and axious verapamil AdvReac Intermediate Asthma Verified 12/08/21 15:11 symptoms zonisamide AdvReac Intermediate Asthma Verified 12/08/21 15:11 symptoms Review of Systems <Yo Griffith PA-C - Last Filed: 12/08/21 15:51> Review of Systems Narrative: GENERAL: Reports weakness, Denies chills, fatigue, malaise, fever, sweats. HEENT: Denies sinus pain, ear pain, sore throat, difficulty swallowing, dizziness. RESPIRATORY: Denies dyspnea, cough, wheezing, hemoptysis, sputum. CARDIOVASCULAR: Denies chest pain, palpitations, orthopnea, edema, GASTROINTESTINAL: Denies nausea, vomiting, abdominal pain, diarrhea, constipation, melena. : Denies dysuria, frequency, incontinence, hematuria, urinary retention. MUSCULOSKELETAL: denies weakness, joint pain, or bony pain SKIN: Denies rash, skin lesions, or other NEUROLOGIC: Denies weakness, headache, numbness, change in speech, confusion, seizures, incoordination. PSYCHIATRIC: No concerning psychosocial issues. 12 point review of systems is negative except for those stated above Patient History <Yo Griffith PA-C - Last Filed: 12/08/21 15:51> Medical History Anemia Anxiety Asthma Chronic back pain Chronic cough Depression Femur fracture, left Fibromyalgia Fractures GERD (gastroesophageal reflux disease) Hiatal hernia Recurrent sinusitis Venous insufficiency (chronic) (peripheral) Surgical History Anesthesia History of eye surgery (~1973) History of foot surgery History of hysterectomy (~1979) History of shoulder surgery (~2011) History of tonsillectomy (~1975) Hx of bilateral cataract extraction Family History Mother Heart disease Sister Heart disease Social History marital status: number of children: 1 household members: none lives independently: Yes caregiver/support person: Yes (3 afternoons per week) pets and animals: Yes occupational status: disabled Smoking Status: Never smoker alcohol intake: never substance use type: does not use Smoking Status: Never smoker alcohol intake frequency: holidays/special occasions only Substance Use Type: does not use Exam <oY Griffith PA-C - Last Filed: 12/08/21 15:51> Narrative Exam Narrative: GENERAL: Well-developed patient, in mild distress. HEAD: Atraumatic. Normocephalic. EYES: Pupils equal round and reactive. Extraocular motions intact. No scleral icterus. No injection or drainage. ENT: Nose without bleeding, purulent drainage. Throat without erythema, tonsillar hypertrophy or exudate. Airway patent. NECK: Trachea midline. Non tender CARDIOVASCULAR: Regular rate and rhythm without murmurs, gallops, or rubs. RESPIRATORY: Clear to auscultation. Breath sounds equal bilaterally. No wheezes, rales, or rhonchi. GASTROINTESTINAL: Abdomen soft, non-tender, nondistended. EXTREMITIES: No edema or joint tenderness. BACK: Nontender without deformity or crepitance. No flank tenderness. NEURO: AOx3. SKIN: No rash or erythema of visible areas Initial Vital Signs Initial Vital Signs: Vital Signs Temperature 96.9 F L 12/08/21 15:11 Pulse Rate 66 12/08/21 15:11 Respiratory Rate 16 12/08/21 15:11 Blood Pressure 125/61 12/08/21 15:11 Pulse Oximetry 97 12/08/21 15:11 Oxygen Delivery Method 12/08/21 15:11 <Allyssa Limon DO - Last Filed: 12/09/21 07:26> Initial Vital Signs Initial Vital Signs: Vital Signs Temperature 96.9 F L 12/08/21 15:11 Pulse Rate 66 12/08/21 15:11 Respiratory Rate 16 12/08/21 15:11 Blood Pressure 125/61 12/08/21 15:11 Pulse Oximetry 97 12/08/21 15:11 Oxygen Delivery Method 12/08/21 15:11 Course <Yo Griffith PA-C - Last Filed: 12/08/21 15:51> Orders Ordered: ED Orders 12/08/21 15:18 EKG-12 Lead Stat Vital Signs Vital signs: Vital Signs - 8 hr 12/08/21 15:11 Temperature 96.9 F L Pulse Rate 66 Respiratory Rate 16 Blood Pressure 125/61 Pulse Oximetry 97 Oxygen Delivery Method Room Air <DO Shakeel Sen Last Filed: 12/09/21 07:26> Orders Ordered: ED Orders 12/08/21 15:18 EKG-12 Lead Stat Vital Signs Vital signs: Vital Signs - 8 hr 12/08/21 15:11 Temperature 96.9 F L Pulse Rate 66 Respiratory Rate 16 Blood Pressure 125/61 Pulse Oximetry 97 Oxygen Delivery Method Room Air MDM - Weakness <Yo Griffith PA-C - Last Filed: 12/08/21 15:51> MDM Narrative Medical decision making narrative: After initial interview with the patient informed by nursing that patient elected to leave the department although she also reportedly declined to sign an Against Medical Advice form. <DO Shakeel Sen Last Filed: 12/09/21 07:26> ECG Data Interpretation: Ashly-normal sinus rhythm rate 62 DE interval 160 QRS [address] changes or T-wave inversions similar to all previous EKG Discharge Plan Departure Patient Disposition: Left Without Being Seen Clinical Impression: Weakness, Patient left without being seen Stand Alone Forms: Against Medical Advice <DO Shakeel Sen Last Filed: 12/09/21 07:26> Cosign ED Attending Cosignature Attestation: I was immediately available in the department for consultation. Documentation has been reviewed. I agree with assessment and plan.
== END 2021-12-08 16:13 | disposition left against medical advice (07) ==
LOC: ED 15:53
PROVIDERS: Emergency Provider Physician Assistant Medical; PCP Family Medicine; Referring Provider Physician Assistant Medical
DX: R53.1 Weakness (principal); I50.9 Heart failure, unspecified
CPT/HCPCS: 93005; 99281

== ENCOUNTER → 2021-12-27 15:04 | Outpatient (CLI) | payer OTHER, MEDICAID, SELFPAY ==
[2021-06-04 16:30] VITALS: BMI 39.6
[2021-12-27 16:54] LABS: Hemoglobin 11.6 g/dL (12.0-16.0)
[2021-12-27 17:07] LABS: BUN Creatinine Ratio 18.4 (6-22); Blood Urea Nitrogen 16 mg/dL (7-17); Calcium 9.1 mg/dL (8.4-10.2); Carbon Dioxide 36 mmol/L (22-32); Chloride 95 mmol/L (98-107); Estimated Glomerular Filt Rate > 60 mL/min (>60); Glucose 110 mg/dL (80-110); HEMOLYSIS < 15 (0-50); Phosphorous 3.1 mg/dL (2.8-4.1); Potassium 2.8 mmol/L (3.4-5.1); Sodium 139 mmol/L (137-145)
[2021-12-27 17:27] LABS: Appearance Urine UA CLEAR; Bilirubin Urine UA NEGATIVE (NEGATIVE); Color Urine UA YELLOW; Glucose Urine UA NEGATIVE (Negative); Ketones Urine UA NEGATIVE (NEGATIVE); Leukocyte Esterase Urine UA TRACE (NEGATIVE); Nitrite Urine UA NEGATIVE (Negative); Occult Blood Urine UA NEGATIVE (Negative); Protein Urine UA NEGATIVE (Negative); Urobilinogen Urine UA 0.2 E.U./dL (0.2)
[2021-12-27 17:32] LABS: Bacteria Urine None Seen; RBC Urine None Seen (0-5/HPF); WBC Urine None Seen (0-5/HPF)
[2021-12-28 07:40] LABS: Parathyroid Hormone Int 87 pg/mL (15-65)
== END ==
PROVIDERS: PCP Family Medicine; Referring Provider Student in an Organized Health Care Education/Training Program; Visit Provider Student in an Organized Health Care Education/Training Program
DX: N05.9 Unspecified nephritic syndrome with unspecified morphologic changes (principal); D64.9 Anemia, unspecified; E83.30 Disorder of phosphorus metabolism, unspecified; N25.81 Secondary hyperparathyroidism of renal origin; N30.00 Acute cystitis without hematuria; R80.9 Proteinuria, unspecified
CPT/HCPCS: 36415; 80048; 81001; 83970; 84100; 85014; 85018; 87086

== ENCOUNTER 2021-12-28 15:02 | Emergency (ER) | payer OTHER, MEDICAID, SELFPAY ==
[2021-06-04 16:30] VITALS: BMI 39.6
[2021-12-28] VITALS (25 sets, daily range): BP systolic 86–132; BP diastolic 51–74; PULSE 70–104; RESP 12–40; TEMP 36.2; O2SAT 92–97; BMI 33.6
--- NOTE | 2021-12-28 15:27 | ED.RECABL ---
HPI - Recheck/Abnormal Lab/Rx <Gerson Pulidoan, DO - Last Filed: 01/01/22 07:16> General Chief Complaint: Recheck/Abnormal Lab/Rx Stated Complaint: needs iv potassium Time Seen by Provider: 12/28/21 15:07 Source: patient Mode of arrival: Ambulatory History of Present Illness HPI narrative: 66-year-old female nonsmoker with history of persistent hypokalemia, known kidney mass presents at the request of her model and dye person for IV potassium. She is been feeling weak and under the weather and generally fatigued. She denies any dizziness or lightheadedness. She denies chest pain but has ongoing shortness of breath. She states that they have been altering her diuretics somewhat. She had outpatient labs performed yesterday and found her potassium to be 2.7 or 2.8 and she is here for evaluation. She denies any nausea, vomiting or diarrhea. She is had no fever or chills. Related Data Home Medications Medication Instructions Recorded Confirmed sennosides 8.6 mg tablet (senna) 17.2 mg PO BEDTIME PRN Constipation 09/20/18 08/19/21 potassium chloride 20 mEq 10 meq PO DAILY PRN Take w/lasix 10/29/18 08/19/21 tablet,extended release diphenhydramine HCl 25 mg capsule 75 mg PO DAILY PRN Allergy Symptoms 10/26/19 09/27/21 (Benadryl) omeprazole 40 mg capsule,delayed 40 mg PO BID 02/10/20 08/19/21 release lidocaine 5 % topical ointment 1 applic topical TID PRN pain 02/24/20 09/27/21 ketotifen fumarate 0.025 % (0.035 1 drp ophthalmic (eye) BID 03/02/20 09/27/21 %) eye drops (Zaditor) fluticasone propionate 50 1 spray intranasal BID 04/02/20 09/27/21 mcg/actuation nasal spray,suspension ondansetron 8 mg disintegrating 8 mg PO Q8H PRN Nausea 06/29/20 08/19/21 tablet metoprolol succinate 25 mg 25 mg PO BID 01/27/21 08/19/21 tablet,extended release 24 hr valsartan 40 mg tablet 20 mg PO BID 01/27/21 08/19/21 acetaminophen 500 mg capsule 500 mg PO Q6H PRN Pain (Scale 04/11/21 09/27/21 Score 1-3) gabapentin 600 mg tablet 600 mg PO TID 04/11/21 09/27/21 ibuprofen 200 mg tablet 200 mg PO Q6H PRN Pain (Scale 04/11/21 09/27/21 Score 1-3) pramipexole 0.75 mg tablet 0.75 mg PO DAILY 04/11/21 09/27/21 tiotropium bromide 18 mcg capsule 1 cap inhalation DAILY 04/11/21 08/19/21 with inhalation device (Spiriva with HandiHaler) torsemide 20 mg tablet 80 mg PO BID 08/19/21 08/19/21 Previous Rx's Medication Instructions Recorded methocarbamol 750 mg tablet 750 mg PO TID PRN Spasms #90 tabs 09/29/19 epinephrine 0.3 mg/0.3 mL 0.3 mg (0.3 mL) IM ONCE PRN 01/01/20 injection, auto-injector Allergic Reaction #1 ea methylprednisolone 4 mg tablet 4 mg PO DAILY 3 days #3 tabs 06/06/21 montelukast 10 mg tablet See Rx Instructions .Route 07/26/21 .COMPLEX #90 tabs sumatriptan succinate 100 mg tablet See Rx Instructions .Route 07/26/21 .COMPLEX #14 tabs Trintellix 20 mg tablet 20 mg PO DAILY 30 days #30 tabs 09/27/21 (vortioxetine) diazepam 5 mg tablet 5 mg PO BID PRN anxiety 30 days 09/27/21 #60 tabs quetiapine 25 mg tablet 25 mg PO BEDTIME #40 tabs 09/27/21 mupirocin 2 % topical ointment 1 applic topical BID #15 grams 10/12/21 hydrocodone 5 mg-acetaminophen 325 1 tab PO Q6H PRN pain #7 tabs 11/23/21 mg tablet potassium chloride 20 mEq 40 meq PO DAILY #20 tabs 11/23/21 tablet,extended release Allergies Allergy/AdvReac Type Severity Reaction Status Date / Time Iodinated Contrast Media Allergy Severe Difficulty Verified 12/08/21 15:11 Breathing iodine Allergy Severe Difficulty Verified 12/08/21 15:11 Breathing latex Allergy Severe Rash Verified 12/08/21 15:11 morphine [MORPHINE] Allergy Severe Anaphylaxis Verified 12/08/21 15:11 Penicillins [PENICILLINS] Allergy Severe Anaphylaxis Verified 12/08/21 15:11 Sulfa (Sulfonamide Allergy Severe RASH Verified 12/08/21 15:11 Antibiotics) [SULFA (SULFONAMIDE ANTIBIOTICS)] azithromycin Allergy Intermediate Rash Verified 12/08/21 15:11 [From ZITHROMAX Z-MARILYN] cefuroxime [From Ceftin] Allergy Intermediate Rash Verified 12/08/21 15:11 sulfamethoxazole Allergy Intermediate RASH Verified 12/08/21 15:11 [From SEPTRA] trimethoprim [From SEPTRA] Allergy Intermediate RASH Verified 12/08/21 15:11 ciprofloxacin [From Cipro] Allergy Pt does Verified 12/08/21 15:11 not remember reaction Corticosteroids Allergy Swelling Verified 12/08/21 15:11 (Glucocorticoids) of Lip/Tongue/Throat cephalexin [From Keflex] AdvReac Severe Fever, Verified 12/08/21 15:11 Asthma, Tachycardia prednisone AdvReac Severe nausea and Verified 12/08/21 15:11 feels very weak, and axious verapamil AdvReac Intermediate Asthma Verified 12/08/21 15:11 symptoms zonisamide AdvReac Intermediate Asthma Verified 12/08/21 15:11 symptoms Review of Systems <Gerson De Jesus DO - Last Filed: 01/01/22 07:16> Review of Systems Narrative: GENERAL: See HPI HEENT: Denies sinus pain, ear pain, sore throat, difficulty swallowing, dizziness. RESPIRATORY: Denies dyspnea, cough, wheezing, hemoptysis, sputum. CARDIOVASCULAR: Denies chest pain, palpitations, orthopnea, edema, GASTROINTESTINAL: Denies nausea, vomiting, abdominal pain, diarrhea, constipation, melena. : Denies dysuria, frequency, incontinence, hematuria, urinary retention. MUSCULOSKELETAL: denies weakness, joint pain, or bony pain SKIN: Denies rash, skin lesions, or other NEUROLOGIC: Denies weakness, headache, numbness, change in speech, confusion, seizures, incoordination. PSYCHIATRIC: No concerning psychosocial issues. 12 point review of systems is negative except for those stated above Patient History <Gerson De Jesus DO - Last Filed: 01/01/22 07:16> Medical History Anemia Anxiety Asthma Chronic back pain Chronic cough Depression Femur fracture, left Fibromyalgia Fractures GERD (gastroesophageal reflux disease) Hiatal hernia Recurrent sinusitis Venous insufficiency (chronic) (peripheral) Surgical History Anesthesia History of eye surgery (~1973) History of foot surgery History of hysterectomy (~1979) History of shoulder surgery (~2011) History of tonsillectomy (~1975) Hx of bilateral cataract extraction Family History Mother Heart disease Sister Heart disease Social History marital status: number of children: 1 household members: none lives independently: Yes caregiver/support person: Yes (3 afternoons per week) pets and animals: Yes occupational status: disabled Smoking Status: Never smoker alcohol intake: never substance use type: does not use Smoking Status: Never smoker alcohol intake frequency: holidays/special occasions only Substance Use Type: does not use Exam <Gerson De Jesus DO - Last Filed: 01/01/22 07:16> Narrative Exam Narrative: GENERAL: [66] year old patient appears stated age. Well-developed patient, in mild distress. HEAD: Atraumatic. Normocephalic. EYES: Pupils equal round and reactive. Extraocular motions intact. No scleral icterus. No injection or drainage. ENT: Nose without bleeding, purulent drainage. Throat without erythema, tonsillar hypertrophy or exudate. Airway patent. NECK: Trachea midline. Non tender CARDIOVASCULAR: Regular rate and rhythm without murmurs, gallops, or rubs. RESPIRATORY: Clear to auscultation. Breath sounds equal bilaterally. No wheezes, rales, or rhonchi. GASTROINTESTINAL: Abdomen soft, non-tender, nondistended. EXTREMITIES: No edema or joint tenderness. BACK: Nontender without deformity or crepitance. No flank tenderness. NEURO: AOx3. SKIN: No rash or erythema of visible areas Initial Vital Signs Initial Vital Signs: Vital Signs Temperature 97.2 F L 12/28/21 15:11 Pulse Rate 73 12/28/21 15:11 Respiratory Rate 20 12/28/21 15:11 Blood Pressure 132/60 12/28/21 15:11 Pulse Oximetry 96 12/28/21 15:11 Oxygen Delivery Method 12/28/21 15:11 <Hank Delgado MD - Last Filed: 12/29/21 02:07> Initial Vital Signs Initial Vital Signs: Vital Signs Temperature 97.2 F L 12/28/21 15:11 Pulse Rate 73 12/28/21 15:11 Respiratory Rate 20 12/28/21 15:11 Blood Pressure 132/60 12/28/21 15:11 Pulse Oximetry 96 12/28/21 15:11 Oxygen Delivery Method 12/28/21 15:11 Course <Gerson De Jesus DO - Last Filed: 01/01/22 07:16> Orders Ordered: Discontinued Medications Albuterol (Albuterol 2.5 Mg/3 Ml Neb (Adult)) 2.5 mg INH NOW ONE Stop: 12/28/21 23:35 Last Admin: 12/28/21 23:58 Dose: Not Given Documented By: MLM Albuterol/Ipratropium (Albuterol/Ipratropium 3 Ml Ampul) 3 ml INH NOW ONE Stop: 12/28/21 18:38 Diazepam (Diazepam 5 Mg Tablet) 5 mg PO NOW ONE Stop: 12/28/21 20:06 Last Admin: 12/28/21 20:28 Dose: 5 mg Documented By: NR Gabapentin (Gabapentin 600 Mg Tablet) 600 mg PO NOW ONE Stop: 12/28/21 20:06 Last Admin: 12/28/21 20:28 Dose: 600 mg Documented By: NR Hydromorphone HCl (Hydromorphone 1 Mg Inj) 1 mg IV NOW ONE Stop: 12/28/21 22:18 Last Admin: 12/28/21 22:37 Dose: 1 mg Documented By: NR POTASSIUM CHLORIDE IN WATER (Potassium Cl 10 Meq/100 Ml Rebecca) 10 meq in 100 mls @ 100 mls/hr IV Q1H ZHANG Stop: 12/28/21 19:44 Last Infusion: 12/28/21 21:47 Dose: 0 mls/hr Documented By: Admin: 12/28/21 20:15 Dose: 100 mls/hr Documented By: Infusion: 12/28/21 19:47 Dose: 100 mls/hr Documented By: Admin: 12/28/21 18:47 Dose: 100 mls/hr Documented By: Infusion: 12/28/21 18:25 Dose: 100 mls/hr Documented By: Admin: 12/28/21 17:25 Dose: 100 mls/hr Documented By: Infusion: 12/28/21 17:01 Dose: 100 mls/hr Documented By: Admin: 12/28/21 16:01 Dose: 100 mls/hr Documented By: NR Ondansetron HCl (Ondansetron 4 Mg/2 Ml Inj) 4 mg IV NOW ONE Stop: 12/28/21 15:16 Last Admin: 12/28/21 15:59 Dose: 4 mg Documented By: NR Potassium Chloride (Potassium Chloride 20 Meq/15 Ml Udc) 40 meq PO NOW ONE Stop: 12/28/21 15:35 Last Admin: 12/28/21 16:00 Dose: 40 meq Documented By: RAVEN Vital Signs Vital signs: Vital Signs - 8 hr 12/28/21 18:30 12/28/21 18:30 12/28/21 19:00 Pulse Rate 91 H 86 Respiratory Rate 17 16 Blood Pressure 123/57 L Pulse Oximetry 12/28/21 19:01 12/28/21 19:01 12/28/21 19:30 Pulse Rate 86 Respiratory Rate 28 H Blood Pressure 102/55 L 98/53 L Pulse Oximetry 12/28/21 19:30 12/28/21 20:00 12/28/21 20:01 Pulse Rate 85 85 92 H Respiratory Rate 12 17 40 H Blood Pressure Pulse Oximetry 12/28/21 20:01 12/28/21 20:15 12/28/21 20:15 Pulse Rate 79 Respiratory Rate 20 Blood Pressure 89/52 L 118/59 L Pulse Oximetry 93 12/28/21 20:30 12/28/21 20:30 12/28/21 21:00 Pulse Rate 80 Respiratory Rate 23 Blood Pressure 98/53 L 105/55 L Pulse Oximetry 92 12/28/21 21:00 12/28/21 21:30 12/28/21 21:30 Pulse Rate 84 79 Respiratory Rate 15 21 Blood Pressure 102/56 L Pulse Oximetry 94 92 12/28/21 22:00 12/28/21 22:00 12/28/21 22:30 Pulse Rate 79 Respiratory Rate 26 H Blood Pressure 103/56 L 104/55 L Pulse Oximetry 95 12/28/21 22:30 12/28/21 23:00 12/28/21 23:00 Pulse Rate 79 71 Respiratory Rate 23 23 Blood Pressure 98/56 L Pulse Oximetry 94 97 12/28/21 23:30 12/28/21 23:30 Pulse Rate 86 Respiratory Rate 15 Blood Pressure 105/58 L Pulse Oximetry 95 <Hank Delgado MD - Last Filed: 12/29/21 02:07> Course Course Narrative: December 28, 2021 at 7:00 p.m.. Sign out from Dr. De Jesus, disposition likely discharge home. However will need potassium replacement. Repeat potassium 1 hour after infusion. Orders Ordered: Discontinued Medications Albuterol (Albuterol 2.5 Mg/3 Ml Neb (Adult)) 2.5 mg INH NOW ONE Stop: 12/28/21 23:35 Last Admin: 12/28/21 23:58 Dose: Not Given Documented By: MLM Albuterol/Ipratropium (Albuterol/Ipratropium 3 Ml Ampul) 3 ml INH NOW ONE Stop: 12/28/21 18:38 Diazepam (Diazepam 5 Mg Tablet) 5 mg PO NOW ONE Stop: 12/28/21 20:06 Last Admin: 12/28/21 20:28 Dose: 5 mg Documented By: NR Gabapentin (Gabapentin 600 Mg Tablet) 600 mg PO NOW ONE Stop: 12/28/21 20:06 Last Admin: 12/28/21 20:28 Dose: 600 mg Documented By: NR Hydromorphone HCl (Hydromorphone 1 Mg Inj) 1 mg IV NOW ONE Stop: 12/28/21 22:18 Last Admin: 12/28/21 22:37 Dose: 1 mg Documented By: NR POTASSIUM CHLORIDE IN WATER (Potassium Cl 10 Meq/100 Ml Rebecca) 10 meq in 100 mls @ 100 mls/hr IV Q1H ZHANG Stop: 12/28/21 19:44 Last Infusion: 12/28/21 21:47 Dose: 0 mls/hr Documented By: Admin: 12/28/21 20:15 Dose: 100 mls/hr Documented By: Infusion: 12/28/21 19:47 Dose: 100 mls/hr Documented By: Admin: 12/28/21 18:47 Dose: 100 mls/hr Documented By: Infusion: 12/28/21 18:25 Dose: 100 mls/hr Documented By: Admin: 12/28/21 17:25 Dose: 100 mls/hr Documented By: Infusion: 12/28/21 17:01 Dose: 100 mls/hr Documented By: Admin: 12/28/21 16:01 Dose: 100 mls/hr Documented By: NR Ondansetron HCl (Ondansetron 4 Mg/2 Ml Inj) 4 mg IV NOW ONE Stop: 12/28/21 15:16 Last Admin: 12/28/21 15:59 Dose: 4 mg Documented By: NR Potassium Chloride (Potassium Chloride 20 Meq/15 Ml Udc) 40 meq PO NOW ONE Stop: 12/28/21 15:35 Last Admin: 12/28/21 16:00 Dose: 40 meq Documented By: NR Reevaluation(s) Reevaluation #1: I did review with patient medications. She had inquired about why she did not get her pain medications since 5:30 p.m.. Patient states she takes Valium and oxycodone at home. She does drive with it as well. She states she is taken for years for fibromyalgia and does not affect her driving. I did inform her that we do not give pain medication here if patient will be driving after discharge. That would not be prudent. She states now she is able to find a ride she states she usually gets Dilaudid IV for pain medication Time: 22:19 Reevaluation #2: Reviewed results of repeat potassium and it is reassuring. Patient states she has prescription to car pick up driver tomorrow for potassium. She is appointment with her provider next week. Return precautions reviewed with her. She understands no driving operating machinery tonight. Time: 23:46 Vital Signs Vital signs: Vital Signs - 8 hr 12/28/21 18:30 12/28/21 18:30 12/28/21 19:00 Pulse Rate 91 H 86 Respiratory Rate 17 16 Blood Pressure 123/57 L Pulse Oximetry 12/28/21 19:01 12/28/21 19:01 12/28/21 19:30 Pulse Rate 86 Respiratory Rate 28 H Blood Pressure 102/55 L 98/53 L Pulse Oximetry 12/28/21 19:30 12/28/21 20:00 12/28/21 20:01 Pulse Rate 85 85 92 H Respiratory Rate 12 17 40 H Blood Pressure Pulse Oximetry 12/28/21 20:01 12/28/21 20:15 12/28/21 20:15 Pulse Rate 79 Respiratory Rate 20 Blood Pressure 89/52 L 118/59 L Pulse Oximetry 93 12/28/21 20:30 12/28/21 20:30 12/28/21 21:00 Pulse Rate 80 Respiratory Rate 23 Blood Pressure 98/53 L 105/55 L Pulse Oximetry 92 12/28/21 21:00 12/28/21 21:30 12/28/21 21:30 Pulse Rate 84 79 Respiratory Rate 15 21 Blood Pressure 102/56 L Pulse Oximetry 94 92 12/28/21 22:00 12/28/21 22:00 12/28/21 22:30 Pulse Rate 79 Respiratory Rate 26 H Blood Pressure 103/56 L 104/55 L Pulse Oximetry 95 12/28/21 22:30 12/28/21 23:00 12/28/21 23:00 Pulse Rate 79 71 Respiratory Rate 23 23 Blood Pressure 98/56 L Pulse Oximetry 94 97 12/28/21 23:30 12/28/21 23:30 Pulse Rate 86 Respiratory Rate 15 Blood Pressure 105/58 L Pulse Oximetry 95 MDM - Recheck/Abnormal Lab/Rx <Gerson De Jesus DO - Last Filed: 01/01/22 07:16> Lab Data Result diagrams: 12/28/21 15:44 12/28/21 22:56 Labs: Lab Results 12/28/21 12/28/21 12/28/21 Range/Units 15:44 15:44 17:22 WBC 9.1 (4.5-11.0) X10^3/uL RBC 4.14 (4.0-5.2) X10^6/uL Hgb 11.3 L (12.0-16.0) g/dL Hct 33.7 L (36-46) % MCV 81.4 (80-100) fL MCH 27.2 (26-34) PG MCHC 33.4 (30-36) % RDW 15.9 H (11.6-14.8) % Plt Count 278 (150-400) X10^3/uL Neut % (Auto) 66.0 (50-75) % Lymph % (Auto) 23.4 L (25-40) % Bonner % (Auto) 7.0 (3-14) % Eos % (Auto) 2.3 (2-4) % Baso % (Auto) 1.3 (0-2) % Neut # (Auto) 6000 (8706-9513) /uL Lymph # (Auto) 2100 (0245-4700) /uL Bonner # (Auto) 600 (0-900) /uL Eos # (Auto) 200 (0-450) /uL Baso # (Auto) 100 (0-100) /uL Sodium 135 L (137-145) mmol/L Potassium 2.8 L (3.4-5.1) mmol/L Chloride 96 L (98-107) mmol/L Carbon Dioxide 33 H (22-32) mmol/L BUN 24 H (7-17) mg/dL Creatinine 1.15 H (0.52-1.04) mg/dL Estimated GFR 52 L (>60) mL/min BUN/Creatinine Ratio 20.9 (6-22) Glucose 113 H (80-110) mg/dL Calcium 9.2 (8.4-10.2) mg/dL Magnesium 1.5 L (1.6-2.3) mg/dL Total Bilirubin 0.2 (0.2-1.3) mg/dL AST 28 (14-36) IU/L ALT 21 (<35) IU/L Alkaline Phosphatase 142 H (38-126) U/L NT-Pro-B Natriuret Pep 152 H (<125) pg/mL Total Protein 7.0 (6.3-8.2) g/dL Albumin 3.9 (3.5-5.0) g/dL Globulin 3.1 (1.7-4.1) g/dL Albumin/Globulin Ratio 1.3 (1.0-2.8) Urine RBC None seen (0-5/HPF) Urine WBC 1-5/hpf (0-5/HPF) Ur Squamous Epith Cells 0-1 /hpf (0-5/HPF) Urine Bacteria Occasional (0-1) (None) Ur Culture Indicated? Specimen cultured 12/28/21 Range/Units 22:56 WBC (4.5-11.0) X10^3/uL RBC (4.0-5.2) X10^6/uL Hgb (12.0-16.0) g/dL Hct (36-46) % MCV (80-100) fL MCH (26-34) PG MCHC (30-36) % RDW (11.6-14.8) % Plt Count (150-400) X10^3/uL Neut % (Auto) (50-75) % Lymph % (Auto) (25-40) % Bonner % (Auto) (3-14) % Eos % (Auto) (2-4) % Baso % (Auto) (0-2) % Neut # (Auto) (4656-9464) /uL Lymph # (Auto) (7452-8389) /uL Bonner # (Auto) (0-900) /uL Eos # (Auto) (0-450) /uL Baso # (Auto) (0-100) /uL Sodium 136 L (137-145) mmol/L Potassium 3.4 (3.4-5.1) mmol/L Chloride 100 (98-107) mmol/L Carbon Dioxide 31 (22-32) mmol/L BUN 21 H (7-17) mg/dL Creatinine 1.13 H (0.52-1.04) mg/dL Estimated GFR 53 L (>60) mL/min BUN/Creatinine Ratio 18.6 (6-22) Glucose 96 (80-110) mg/dL Calcium 8.7 (8.4-10.2) mg/dL Magnesium (1.6-2.3) mg/dL Total Bilirubin (0.2-1.3) mg/dL AST (14-36) IU/L ALT (<35) IU/L Alkaline Phosphatase (38-126) U/L NT-Pro-B Natriuret Pep (<125) pg/mL Total Protein (6.3-8.2) g/dL Albumin (3.5-5.0) g/dL Globulin (1.7-4.1) g/dL Albumin/Globulin Ratio (1.0-2.8) Urine RBC (0-5/HPF) Urine WBC (0-5/HPF) Ur Squamous Epith Cells (0-5/HPF) Urine Bacteria (None) Ur Culture Indicated? Urine Dip Bedside Urine Glucose Negative Bedside Urine Bilirubin - Negative Bedside Urine Ketone - Negative Urine Specific Jefferson 1.010 Bedside Urine Occult Blood - Negative Bedside Urine pH 6.0 Bedside Urine Protein - Negative Bedside Urine Urobilinogen - Negative Bedside Urine Nitrite - Negative Bedside Urine Leukocytes +/- 15 Esterase <Hank Delgado MD - Last Filed: 12/29/21 02:07> Lab Data Labs: Lab Results 12/28/21 12/28/21 12/28/21 Range/Units 15:44 15:44 17:22 WBC 9.1 (4.5-11.0) X10^3/uL RBC 4.14 (4.0-5.2) X10^6/uL Hgb 11.3 L (12.0-16.0) g/dL Hct 33.7 L (36-46) % MCV 81.4 (80-100) fL MCH 27.2 (26-34) PG MCHC 33.4 (30-36) % RDW 15.9 H (11.6-14.8) % Plt Count 278 (150-400) X10^3/uL Neut % (Auto) 66.0 (50-75) % Lymph % (Auto) 23.4 L (25-40) % Bonner % (Auto) 7.0 (3-14) % Eos % (Auto) 2.3 (2-4) % Baso % (Auto) 1.3 (0-2) % Neut # (Auto) 6000 (3627-4250) /uL Lymph # (Auto) 2100 (8100-2399) /uL Bonner # (Auto) 600 (0-900) /uL Eos # (Auto) 200 (0-450) /uL Baso # (Auto) 100 (0-100) /uL Sodium 135 L (137-145) mmol/L Potassium 2.8 L (3.4-5.1) mmol/L Chloride 96 L (98-107) mmol/L Carbon Dioxide 33 H (22-32) mmol/L BUN 24 H (7-17) mg/dL Creatinine 1.15 H (0.52-1.04) mg/dL Estimated GFR 52 L (>60) mL/min BUN/Creatinine Ratio 20.9 (6-22) Glucose 113 H (80-110) mg/dL Calcium 9.2 (8.4-10.2) mg/dL Magnesium 1.5 L (1.6-2.3) mg/dL Total Bilirubin 0.2 (0.2-1.3) mg/dL AST 28 (14-36) IU/L ALT 21 (<35) IU/L Alkaline Phosphatase 142 H (38-126) U/L NT-Pro-B Natriuret Pep 152 H (<125) pg/mL Total Protein 7.0 (6.3-8.2) g/dL Albumin 3.9 (3.5-5.0) g/dL Globulin 3.1 (1.7-4.1) g/dL Albumin/Globulin Ratio 1.3 (1.0-2.8) Urine RBC None seen (0-5/HPF) Urine WBC 1-5/hpf (0-5/HPF) Ur Squamous Epith Cells 0-1 /hpf (0-5/HPF) Urine Bacteria Occasional (0-1) (None) Ur Culture Indicated? Specimen cultured 12/28/21 Range/Units 22:56 WBC (4.5-11.0) X10^3/uL RBC (4.0-5.2) X10^6/uL Hgb (12.0-16.0) g/dL Hct (36-46) % MCV (80-100) fL MCH (26-34) PG MCHC (30-36) % RDW (11.6-14.8) % Plt Count (150-400) X10^3/uL Neut % (Auto) (50-75) % Lymph % (Auto) (25-40) % Bonner % (Auto) (3-14) % Eos % (Auto) (2-4) % Baso % (Auto) (0-2) % Neut # (Auto) (7419-9333) /uL Lymph # (Auto) (2152-7748) /uL Bonner # (Auto) (0-900) /uL Eos # (Auto) (0-450) /uL Baso # (Auto) (0-100) /uL Sodium 136 L (137-145) mmol/L Potassium 3.4 (3.4-5.1) mmol/L Chloride 100 (98-107) mmol/L Carbon Dioxide 31 (22-32) mmol/L BUN 21 H (7-17) mg/dL Creatinine 1.13 H (0.52-1.04) mg/dL Estimated GFR 53 L (>60) mL/min BUN/Creatinine Ratio 18.6 (6-22) Glucose 96 (80-110) mg/dL Calcium 8.7 (8.4-10.2) mg/dL Magnesium (1.6-2.3) mg/dL Total Bilirubin (0.2-1.3) mg/dL AST (14-36) IU/L ALT (<35) IU/L Alkaline Phosphatase (38-126) U/L NT-Pro-B Natriuret Pep (<125) pg/mL Total Protein (6.3-8.2) g/dL Albumin (3.5-5.0) g/dL Globulin (1.7-4.1) g/dL Albumin/Globulin Ratio (1.0-2.8) Urine RBC (0-5/HPF) Urine WBC (0-5/HPF) Ur Squamous Epith Cells (0-5/HPF) Urine Bacteria (None) Ur Culture Indicated? Urine Dip Bedside Urine Glucose Negative Bedside Urine Bilirubin - Negative Bedside Urine Ketone - Negative Urine Specific Jefferson 1.010 Bedside Urine Occult Blood - Negative Bedside Urine pH 6.0 Bedside Urine Protein - Negative Bedside Urine Urobilinogen - Negative Bedside Urine Nitrite - Negative Bedside Urine Leukocytes +/- 15 Esterase MDM Narrative Medical decision making narrative: Appropriate for discharge home. Potassium replacement complete here and was successful. Patient in no distress. Patient has appointment with her provider next week. She has potassium prescription to car pick up driver in the morning. Return precautions reviewed with her. She desires discharge home Discharge Plan Departure Patient Disposition: Home Clinical Impression: Acute hypokalemia Instructions: DI for Hypokalemia Activity Restrictions/Additional Instructions: No driving operating machinery tonight. Please see your family doctor and your model and dye person within the next week for re-evaluation and recheck your potassium levels. Please continue your potassium pills. Return if worse if any questions or concerns Prescriptions: No Action Spiriva with HandiHaler 18 mcg capsule, w/inhalation device 1 cap inhalation DAILY Rx Instructions: puncture 1 cap using device; one dose = 2 inhalations pramipexole 0.75 mg tablet 0.75 mg PO DAILY ibuprofen 200 mg tablet 200 mg PO Q6H PRN (Reason: Pain (Scale Score 1-3)) gabapentin 600 mg tablet 600 mg PO TID Label Comments: 0700, 1400, 2100 acetaminophen 500 mg capsule 500 mg PO Q6H PRN (Reason: Pain (Scale Score 1-3)) valsartan 40 mg tablet 20 mg PO BID metoprolol succinate 25 mg tablet extended release 24 hr 25 mg PO BID torsemide 20 mg tablet 80 mg PO BID Label Comments: TAKE 2 TABLETS BY MOUTH IN THE MORNING AND 1 TABLET AT NIGHT quetiapine 25 mg tablet 25 mg PO BEDTIME MDD 50MG Qty: 40 5RF Rx Instructions: OK to repeat dose if not sleeping within 1 hour diazepam 5 mg tablet 5 mg PO BID PRN (Reason: anxiety) 30 Days Qty: 60 2RF Trintellix 20 mg tablet 20 mg PO DAILY 30 Days Qty: 30 5RF potassium chloride 20 mEq tablet extended release 10 meq PO DAILY PRN (Reason: Take w/lasix) Rx Instructions: Take w/lasix prn fluticasone propionate 50 mcg/actuation spray,suspension 1 spray intranasal BID Rx Instructions: administer into each nostril methocarbamol 750 mg tablet 750 mg PO TID PRN (Reason: Spasms) Qty: 90 3RF Rx Instructions: PRN epinephrine 0.3 mg/0.3 mL auto-injector 0.3 mg IM ONCE PRN (Reason: Allergic Reaction) Qty: 1 11RF sumatriptan succinate 100 mg tablet See Rx Instructions .ROUTE .COMPLEX Qty: 14 0RF Dose Instruction: TAKE 1 TABLET BY MOUTH ONCE AT ONSET OF MIGRAINE HEADACHE. MAY REPEAT IN 2 HOURS IF NO RELIEF. MAX OF 2 TABLETS PER DAY. Rx Instructions: TAKE 1 TABLET BY MOUTH ONCE AT ONSET OF MIGRAINE HEADACHE. MAY REPEAT IN 2 HOURS IF NO RELIEF. MAX OF 2 TABLETS PER DAY. montelukast 10 mg tablet See Rx Instructions .ROUTE .COMPLEX Qty: 90 0RF Dose Instruction: TAKE 1 TABLET BY MOUTH AT BEDTIME NEEDED FOR ALLERGY SYMPTOMS Rx Instructions: TAKE 1 TABLET BY MOUTH AT BEDTIME NEEDED FOR ALLERGY SYMPTOMS lidocaine 5 % Ointment 1 applic TOPICAL TID PRN (Reason: pain) ketotifen fumarate [Zaditor] 0.025 % (0.035 %) Drops 1 drp OPHTHALMIC (EYE) BID potassium chloride 20 mEq tablet extended release 40 meq PO DAILY Qty: 20 0RF hydrocodone-acetaminophen 5-325 mg tablet 1 tab PO Q6H PRN (Reason: pain) Qty: 7 0RF sennosides [senna] 8.6 mg Tablet 17.2 mg PO BEDTIME PRN (Reason: Constipation) diphenhydramine HCl [Benadryl] 25 mg Capsule 75 mg PO DAILY PRN (Reason: Allergy Symptoms) omeprazole 40 mg Capsule,Delayed Release(Dr/Ec) 40 mg PO BID ondansetron 8 mg Tablet,Disintegrating 8 mg PO Q8H PRN (Reason: Nausea) methylprednisolone 4 mg tablet 4 mg PO DAILY 3 Days Qty: 3 0RF mupirocin 2 % ointment 1 applic topical BID Qty: 15 0RF Referrals: Maxim Parks MD [Primary Care Provider] - Visit Report Forms: Patient Portal/API ED Sign-out <Gerson De Jesus DO - Last Filed: 01/01/22 07:16> Cosign ED Attending Cosignature Attestation: I was immediately available in the department for consultation. This documentation has been reviewed and I agree with assessment and plan. Supervised by Gerson De Jesus DO
[2021-12-28 15:52] LABS: Add Manual Diff / Slide Review NO; Basophils Absolute Auto 100 /uL (0-100); Basophils Percent Auto 1.3 % (0-2); Eosinophils Absolute Auto 200 /uL (0-450); Eosinophils Percent Auto 2.3 % (2-4); Hematocrit 33.7 % (36-46); Hemoglobin 11.3 g/dL (12.0-16.0); Lymphocytes Absolute Auto 2100 /uL (1100-4500); Lymphocytes Percent Auto 23.4 % (25-40); Mean Corpuscular HGB Conc 33.4 % (30-36); Mean Corpuscular Hemoglobin 27.2 PG (26-34); Mean Corpuscular Volume 81.4 fL (80-100); Monocytes Absolute Auto 600 /uL (0-900); Neutrophils Absolute Auto 6000 /uL (1500-7000); Platelet Count 278 X10^3/uL (150-400); Red Blood Cell Count 4.14 X10^6/uL (4.0-5.2); Red Cell Distribution Width 15.9 % (11.6-14.8); White Blood Cell Count 9.1 X10^3/uL (4.5-11.0)
[2021-12-28] MEDS: ONDANSETRON 4 MG/2 ML INJ IV (15:59)
[2021-12-28] MEDS: POTASSIUM CHLORIDE 20 MEQ/15 ML UDC 40 MEQ PO (16:00)
[2021-12-28] MEDS: POTASSIUM CHLORIDE IN WATER 10 MEQ/100 ML PIGGYBACK 100 MEQ IV ×4 (16:01→20:15)
[2021-12-28 16:06] LABS: Alanine Aminotransferase 21 IU/L (<35); Albumin 3.9 g/dL (3.5-5.0); Albumin Globulin Ratio 1.3 (1.0-2.8); Alkaline Phosphatase 142 U/L (38-126); Aspartate Aminotransferase 28 IU/L (14-36); BUN Creatinine Ratio 20.9 (6-22); Bilirubin Total 0.2 mg/dL (0.2-1.3); Blood Urea Nitrogen 24 mg/dL (7-17); Calcium 9.2 mg/dL (8.4-10.2); Carbon Dioxide 33 mmol/L (22-32); Chloride 96 mmol/L (98-107); Estimated Glomerular Filt Rate 52 mL/min (>60); Globulin 3.1 g/dL (1.7-4.1); Glucose 113 mg/dL (80-110); HEMOLYSIS < 15 (0-50); Magnesium 1.5 mg/dL (1.6-2.3); Potassium 2.8 mmol/L (3.4-5.1); Sodium 135 mmol/L (137-145)
[2021-12-28 16:15] LABS: NT-proBNP (BNP-Adult 18+) 152 pg/mL (<125)
--- NOTE | 2021-12-28 16:16 | PC.NURSE ---
Asked patient about her dog. patient said her dog, Drew, first noticed her symptoms before her doctors even diagnosed her and then she was diagnosed with CHF. Drew would often pull on his leash and make her go back to her car when walking or cooking in the kitchen and make her sit down. he just knows when I am in danger. when asked about the training her dog had to go through, patient stated he did not have to go through any training, he was just born like this. patient then went on to say her doctor and vet had to write letters for her and then she was told that he is technically just a support pet. spoke with charge nurse about this conversation and was told that per policy we are not allowed to have support pets in the hospital. spoke with patient again about this subject, pt then said her dog is a service dog, when asked what task or service the dog provides she answered very vaguely that the dog just knows when I am in danger and other things, knows when she needs to rest and helps her with her CHF. informed patient that she is going to be here for possibly 5 more hours and that she will have to make arrangements for her dog as per policy we do not take care of service animals. informed charge nurse of this conversation.
[2021-12-28 18:11] LABS: Bacteria Urine Occasional (0-1); Culture Indicated Urine Specimen Cultured; RBC Urine None Seen (0-5/HPF); Squamous Epithelial Cell Urine 0-1 /HPF (0-5/HPF); WBC Urine 1-5/HPF (0-5/HPF)
[2021-12-28] MEDS: GABAPENTIN 600 MG TABLET PO (20:28)
[2021-12-28] MEDS: diazePAM 5 MG TABLET PO (20:28)
--- NOTE | 2021-12-28 22:20 | PC.NURSE ---
pt requested diazepam and gabapentin, doctor notified. patient given medications upon MD's order. Pt upset about time that occured between first asking and meds being given. apologized to patient for wait. pt then began requesting pain medications. notified. pt informed she could not have medications if she was driving herself home. pt upset, notified and went to speak to pt. pt requested to speak with charge nurse. pt then notified me of plan to take [employer] taxi home and requested pain medications. notified. new orders placed
--- NOTE | 2021-12-28 22:33 | PC.NURSE ---
prior to administration of dilaudid, pt states she is happy to get a voucher from us to take [employer] taxi home. informed charge nurse that pt does not have plan to get ride home that she is expecting a voucher for [employer] from us. Lindy Montemayor, ILIA explained to patient that she does not get a voucher tonight. pt is very upset that she is being made to call her daughter, who has cancer, to come and get her from the hospital. explained to patient that she needs a ride if she is going to have pain medications. pt called stated you are all idiots. pt states she will call her daughter and see if she can get ride home. Pts daughter says she will call [employer] for pt and pay for it when pt is ready to go home. when patient was being given pain medications she states she doesnt know why the other nurse came in to yell at her, she never said she wouldnt pay for the taxi, they were going to pay for it the whole time.
[2021-12-28] MEDS: HYDROMORPHONE 1 MG INJ IV (22:37)
[2021-12-28 23:22] LABS: BUN Creatinine Ratio 18.6 (6-22); Blood Urea Nitrogen 21 mg/dL (7-17); Calcium 8.7 mg/dL (8.4-10.2); Carbon Dioxide 31 mmol/L (22-32); Chloride 100 mmol/L (98-107); Estimated Glomerular Filt Rate 53 mL/min (>60); Glucose 96 mg/dL (80-110); HEMOLYSIS < 15 (0-50); Potassium 3.4 mmol/L (3.4-5.1); Sodium 136 mmol/L (137-145)
--- NOTE | 2021-12-28 23:42 | PC.NURSE ---
pt has inhaler. Will use for her chronic SOB.
== END 2021-12-29 00:28 | disposition home or self-care (01) ==
PROVIDERS: Emergency Medicine; Emergency Provider Emergency Medicine; PCP Family Medicine; Referring Provider Student in an Organized Health Care Education/Training Program
DX: E87.6 Hypokalemia (principal)
CPT/HCPCS: 36415; 80048; 80053; 81003; 81015; 83735; 83880; 85025; 87086; 96365; 96366; 96375; 99284; J1170; J2405

== ENCOUNTER 2022-01-23 16:42 | Emergency (ER) | payer OTHER, MEDICAID, SELFPAY ==
[2021-06-04 16:30] VITALS: BMI 39.6
[2022-01-23 17:33] VITALS: BP 125/66; PULSE 96; RESP 18; TEMP 36.7; O2SAT 97; BMI 34.5
--- NOTE | 2022-01-23 17:39 | DI.US.S_ITS ---
PROCEDURE: US [facility] VENOUS LOW EXTREM RT INDICATIONS: r leg edema and erythema TECHNIQUE: Real-time imaging, as well as color and pulse Doppler interrogation, were performed of the lower extremity deep veins from the inguinal ligament to the popliteal fossa. COMPARISON: [facility], [facility] VENOUS LOW EXTREM RT, 05/13/2020, 16:57. FINDINGS: The common femoral, femoral and popliteal veins are normally compressible, and free of intraluminal thrombus. Color and pulse Doppler demonstrate normal phasic intraluminal flow. There is normal augmentation response to distal compression maneuver. IMPRESSION: Negative study for DVT Dictated by: Gamaliel Bansal M.D. on 01/23/2022 at 19:05 Approved by: Gamaliel Bansal M.D. on 01/23/2022 at 19:06
[2022-01-23 18:21] LABS: Add Manual Diff / Slide Review NO; Basophils Absolute Auto 100 /uL (0-100); Basophils Percent Auto 0.9 % (0-2); Eosinophils Absolute Auto 200 /uL (0-450); Eosinophils Percent Auto 1.9 % (2-4); Hematocrit 34.1 % (36-46); Hemoglobin 11.6 g/dL (12.0-16.0); Lymphocytes Absolute Auto 1800 /uL (1100-4500); Lymphocytes Percent Auto 21.8 % (25-40); Mean Corpuscular HGB Conc 33.8 % (30-36); Mean Corpuscular Hemoglobin 27.5 PG (26-34); Mean Corpuscular Volume 81.4 fL (80-100); Monocytes Absolute Auto 500 /uL (0-900); Monocytes Percent Auto 6.1 % (3-14); Neutrophils Absolute Auto 5700 /uL (1500-7000); Neutrophils Percent Auto 69.3 % (50-75); Platelet Count 342 X10^3/uL (150-400); Red Cell Distribution Width 15.9 % (11.6-14.8); White Blood Cell Count 8.3 X10^3/uL (4.5-11.0)
[2022-01-23 18:31] LABS: Alanine Aminotransferase 21 IU/L (<35); Albumin 4.5 g/dL (3.5-5.0); Albumin Globulin Ratio 1.2 (1.0-2.8); Alkaline Phosphatase 170 U/L (38-126); Aspartate Aminotransferase 30 IU/L (14-36); BUN Creatinine Ratio 18.3 (6-22); Bilirubin Total 0.3 mg/dL (0.2-1.3); Blood Urea Nitrogen 20 mg/dL (7-17); Calcium 9.8 mg/dL (8.4-10.2); Carbon Dioxide 32 mmol/L (22-32); Chloride 98 mmol/L (98-107); Estimated Glomerular Filt Rate 56 mL/min (>60); Globulin 3.8 g/dL (1.7-4.1); Glucose 124 mg/dL (80-110); HEMOLYSIS < 15 (0-50); Sodium 140 mmol/L (137-145); Total Protein 8.3 g/dL (6.3-8.2)
--- NOTE | 2022-01-23 23:30 | ED.EXTPRO ---
HPI - Extremity Problem General Chief complaint: Extremity Problem,Nontraumatic Stated complaint: red, swollen leg, fever Time Seen by Provider: 01/23/22 22:56 Source: patient Mode of arrival: Wheelchair History of Present Illness HPI Narrative: Patient complains of right calf pain and redness and swelling for the past 3 or 4 weeks. No known injury to the skin or calf. Patient states she is had multiple allergies to antibiotics but she is had clindamycin before, she states she is had doxycycline Marita times and does not work as well. Denies any chest pain or dyspnea. Has had fever body aches and chills. At this time no fever. Laboratory studies are reassuring as well as ultrasound of the leg. Right knee to toes exposed. Related Data Home Medications Medication Instructions Recorded Confirmed sennosides 8.6 mg tablet (senna) 17.2 mg PO BEDTIME PRN Constipation 09/20/18 08/19/21 potassium chloride 20 mEq 10 meq PO DAILY PRN Take w/lasix 10/29/18 08/19/21 tablet,extended release diphenhydramine HCl 25 mg capsule 75 mg PO DAILY PRN Allergy Symptoms 10/26/19 09/27/21 (Benadryl) omeprazole 40 mg capsule,delayed 40 mg PO BID 02/10/20 08/19/21 release lidocaine 5 % topical ointment 1 applic topical TID PRN pain 02/24/20 09/27/21 ketotifen fumarate 0.025 % (0.035 1 drp ophthalmic (eye) BID 03/02/20 09/27/21 %) eye drops (Zaditor) fluticasone propionate 50 1 spray intranasal BID 04/02/20 09/27/21 mcg/actuation nasal spray,suspension ondansetron 8 mg disintegrating 8 mg PO Q8H PRN Nausea 06/29/20 08/19/21 tablet metoprolol succinate 25 mg 25 mg PO BID 01/27/21 08/19/21 tablet,extended release 24 hr valsartan 40 mg tablet 20 mg PO BID 01/27/21 08/19/21 acetaminophen 500 mg capsule 500 mg PO Q6H PRN Pain (Scale 04/11/21 09/27/21 Score 1-3) gabapentin 600 mg tablet 600 mg PO TID 04/11/21 09/27/21 ibuprofen 200 mg tablet 200 mg PO Q6H PRN Pain (Scale 04/11/21 09/27/21 Score 1-3) pramipexole 0.75 mg tablet 0.75 mg PO DAILY 04/11/21 09/27/21 tiotropium bromide 18 mcg capsule 1 cap inhalation DAILY 04/11/21 08/19/21 with inhalation device (Spiriva with HandiHaler) torsemide 20 mg tablet 80 mg PO BID 08/19/21 08/19/21 Previous Rx's Medication Instructions Recorded methocarbamol 750 mg tablet 750 mg PO TID PRN Spasms #90 tabs 09/29/19 epinephrine 0.3 mg/0.3 mL 0.3 mg (0.3 mL) IM ONCE PRN 01/01/20 injection, auto-injector Allergic Reaction #1 ea methylprednisolone 4 mg tablet 4 mg PO DAILY 3 days #3 tabs 06/06/21 montelukast 10 mg tablet See Rx Instructions .Route 07/26/21 .COMPLEX #90 tabs sumatriptan succinate 100 mg tablet See Rx Instructions .Route 07/26/21 .COMPLEX #14 tabs Trintellix 20 mg tablet 20 mg PO DAILY 30 days #30 tabs 09/27/21 (vortioxetine) diazepam 5 mg tablet 5 mg PO BID PRN anxiety 30 days 09/27/21 #60 tabs quetiapine 25 mg tablet 25 mg PO BEDTIME #40 tabs 09/27/21 mupirocin 2 % topical ointment 1 applic topical BID #15 grams 10/12/21 hydrocodone 5 mg-acetaminophen 325 1 tab PO Q6H PRN pain #7 tabs 11/23/21 mg tablet potassium chloride 20 mEq 40 meq PO DAILY #20 tabs 11/23/21 tablet,extended release clindamycin HCl 300 mg capsule 300 mg PO QID #28 caps 01/23/22 (Cleocin HCl) hydrocodone 5 mg-acetaminophen 325 1 tab PO Q6H PRN pain #10 tabs 01/23/22 mg tablet Allergies Allergy/AdvReac Type Severity Reaction Status Date / Time Iodinated Contrast Media Allergy Severe Difficulty Verified 01/23/22 17:36 Breathing iodine Allergy Severe Difficulty Verified 01/23/22 17:36 Breathing latex Allergy Severe Rash Verified 01/23/22 17:36 morphine [MORPHINE] Allergy Severe Anaphylaxis Verified 01/23/22 17:36 Penicillins [PENICILLINS] Allergy Severe Anaphylaxis Verified 01/23/22 17:36 Sulfa (Sulfonamide Allergy Severe RASH Verified 01/23/22 17:36 Antibiotics) [SULFA (SULFONAMIDE ANTIBIOTICS)] azithromycin Allergy Intermediate Rash Verified 01/23/22 17:36 [From ZITHROMAX Z-MARILYN] cefuroxime [From Ceftin] Allergy Intermediate Rash Verified 01/23/22 17:36 sulfamethoxazole Allergy Intermediate RASH Verified 01/23/22 17:36 [From SEPTRA] trimethoprim [From SEPTRA] Allergy Intermediate RASH Verified 01/23/22 17:36 ciprofloxacin [From Cipro] Allergy Pt does Verified 01/23/22 17:36 not remember reaction Corticosteroids Allergy Swelling Verified 01/23/22 17:36 (Glucocorticoids) of Lip/Tongue/Throat cephalexin [From Keflex] AdvReac Severe Fever, Verified 01/23/22 17:36 Asthma, Tachycardia prednisone AdvReac Severe nausea and Verified 01/23/22 17:36 feels very weak, and axious verapamil AdvReac Intermediate Asthma Verified 01/23/22 17:36 symptoms zonisamide AdvReac Intermediate Asthma Verified 01/23/22 17:36 symptoms Review of Systems Review of Systems Narrative: GENERAL: Positive chills, fatigue, malaise, fever, sweats. HEENT: negative sinus pain, ear pain, sore throat RESPIRATORY: negative dyspnea, cough CARDIOVASCULAR: negative chest pain, palpitations GASTROINTESTINAL: negative nausea, vomiting, abdominal pain : negative dysuria, frequency, hematuria MUSCULOSKELETAL: Positive muscle or bony pain SKIN: negative rash, skin lesions, positive color change NEUROLOGIC: negative weakness, numbness ROS Unobtainable: All systems reviewed & are unremarkable except as noted in HPI and below Patient History Medical History Anemia Anxiety Asthma Chronic back pain Chronic cough Depression Femur fracture, left Fibromyalgia Fractures GERD (gastroesophageal reflux disease) Hiatal hernia Recurrent sinusitis Venous insufficiency (chronic) (peripheral) Surgical History Anesthesia History of eye surgery (~1973) History of foot surgery History of hysterectomy (~1979) History of shoulder surgery (~2011) History of tonsillectomy (~1975) Hx of bilateral cataract extraction Family History Mother Heart disease Sister Heart disease Social History marital status: number of children: 1 household members: none lives independently: Yes caregiver/support person: Yes (3 afternoons per week) pets and animals: Yes occupational status: disabled Smoking Status: Never smoker alcohol intake: never substance use type: does not use Smoking Status: Never smoker alcohol intake frequency: holidays/special occasions only Substance Use Type: does not use Exam Narrative Exam Narrative: GENERAL: in no distress, not toxic not dyspneic HEAD: Normocephalic. EYES: Pupils equal round No scleral icterus. EXTREMITIES: No gross deformities. Examination right lower extremity need to toes exposed. There is edema/swelling of the right calf compared to the left. There is erythema of the medial half of the right calf. It is not circumferential. It does not go above the knee or past the ankle to the foot. No fluctuance. No red streaking. Erythema areas are tender to touch. Surgical pen used to outline the borders NEURO: AOx4. SKIN: Warm and dry PSYCH: Not anxious, is cooperative Initial Vital Signs Initial Vital Signs: Vital Signs Temperature 98.0 F 01/23/22 17:33 Pulse Rate 96 H 01/23/22 17:33 Respiratory Rate 18 01/23/22 17:33 Blood Pressure 125/66 01/23/22 17:33 Pulse Oximetry 97 01/23/22 17:33 Oxygen Delivery Method 01/23/22 17:33 Course Course Course Narrative: No new issues during course of stay Orders Ordered: Discontinued Medications Hydrocodone Bitart/Acetaminophen (Hydrocodone/Acet 5/325 Prepack) 1 bottle MISC SEEINSTR ONE Stop: 01/23/22 23:30 Last Admin: 01/24/22 00:15 Dose: 1 bottle Documented By: ARIEL Clindamycin HCl (Clindamycin 150 Mg Capsule) 300 mg PO NOW ONE Stop: 01/23/22 23:29 Last Admin: 01/24/22 00:15 Dose: 300 mg Documented By: ARIEL Reevaluation(s) Reevaluation #1: Reviewed results with patient, return precautions reviewed with her. She does desire trying outpatient antibiotics before admission. She is not been on antibiotics recently. Medications and allergies reviewed with her. She does agree with current regimen with clindamycin and hydrocodone Time: 23:39 Vital Signs Vital signs: Vital Signs - 8 hr 01/23/22 17:33 Temperature 98.0 F Pulse Rate 96 H Respiratory Rate 18 Blood Pressure 125/66 Pulse Oximetry 97 Oxygen Delivery Method Room Air MDM - Extremity (Nontraumatic) Differential Diagnosis Differential diagnosis: Likely gout, cellulitis, superficial thrombophlebitis and deep vein thrombosis of lower extremity Lab Data Result diagrams: 01/23/22 18:00 01/23/22 18:00 Labs: Lab Results 01/23/22 01/23/22 Range/Units 18:00 18:00 WBC 8.3 (4.5-11.0) X10^3/uL RBC 4.20 (4.0-5.2) X10^6/uL Hgb 11.6 L (12.0-16.0) g/dL Hct 34.1 L (36-46) % MCV 81.4 (80-100) fL MCH 27.5 (26-34) PG MCHC 33.8 (30-36) % RDW 15.9 H (11.6-14.8) % Plt Count 342 (150-400) X10^3/uL Neut % (Auto) 69.3 (50-75) % Lymph % (Auto) 21.8 L (25-40) % [place] % (Auto) 6.1 (3-14) % Eos % (Auto) 1.9 L (2-4) % Baso % (Auto) 0.9 (0-2) % Neut # (Auto) 5700 (2619-6694) /uL Lymph # (Auto) 1800 (1008-8637) /uL [place] # (Auto) 500 (0-900) /uL Eos # (Auto) 200 (0-450) /uL Baso # (Auto) 100 (0-100) /uL Sodium 140 (137-145) mmol/L Potassium 3.0 L (3.4-5.1) mmol/L Chloride 98 (98-107) mmol/L Carbon Dioxide 32 (22-32) mmol/L BUN 20 H (7-17) mg/dL Creatinine 1.09 H (0.52-1.04) mg/dL Estimated GFR 56 L (>60) mL/min BUN/Creatinine Ratio 18.3 (6-22) Glucose 124 H (80-110) mg/dL Calcium 9.8 (8.4-10.2) mg/dL Total Bilirubin 0.3 (0.2-1.3) mg/dL AST 30 (14-36) IU/L ALT 21 (<35) IU/L Alkaline Phosphatase 170 H (38-126) U/L Total Protein 8.3 H (6.3-8.2) g/dL Albumin 4.5 (3.5-5.0) g/dL Globulin 3.8 (1.7-4.1) g/dL Albumin/Globulin Ratio 1.2 (1.0-2.8) Imaging Data US - DVT: Radiologist's Impression: [address] [address] Ultrasound Report Signed Patient: Sheryl Lennon MR#: [id number] : 1955 Acct:[id number] Age/Sex: 66 / F Date of Service: 01/23/22 Loc: ED Accession Number: [id number] ?? Procedure: US periph venous low extrem rt Ordering Provider: Allyssa Limon D.O. PROCEDURE:? US PERIPH VENOUS LOW EXTREM RT ? INDICATIONS:? r leg edema and erythema ? TECHNIQUE:? Real-time imaging, as well as color and pulse Doppler interrogation, were performed of the lower extremity deep veins from the inguinal ligament to the popliteal fossa.? ? COMPARISON:? [facility], PERIP VENOUS LOW EXTREM RT, 05/13/2020, 16:57. ? FINDINGS:? The common femoral, femoral and popliteal veins are normally compressible, and free of intraluminal thrombus.? Color and pulse Doppler demonstrate normal phasic intraluminal flow.? There is normal augmentation response to distal compression maneuver. ? ? IMPRESSION:? Negative study for DVT ? ? Dictated by: Gamaliel Bansal M.D. on 01/23/2022 at 19:05 ? ? Approved by: Gamaliel Bansal M.D. on 01/23/2022 at 19:06 ? MDM Narrative Medical decision making narrative: Appropriate for discharge home. Exam and laboratory studies are reassuring. Patient is agree for outpatient trial of antibiotics. She is had clindamycin before. She is had hydrocodone without any allergic reaction before. She does have a family doctor to follow up with. Otherwise, return precautions reviewed with her. She does desire discharge home. Discharge Plan Departure Patient Disposition: Home Clinical Impression: Cellulitis Instructions: DI for Cellulitis -- Adult Activity Restrictions/Additional Instructions: See family doctor this week for re-evaluation of your skin infection on her right leg. No driving or operating machinery when taking prescribed pain medication. Return if worse or any questions or concerns. Prescription for antibiotics has been provided for you to continue for 7 days. Prescriptions: New clindamycin HCl [Cleocin HCl] 300 mg capsule 300 mg PO QID Qty: 28 0RF hydrocodone-acetaminophen 5-325 mg tablet 1 tab PO Q6H PRN (Reason: pain) Qty: 10 0RF No Action Spiriva with HandiHaler 18 mcg capsule, w/inhalation device 1 cap inhalation DAILY Rx Instructions: puncture 1 cap using device; one dose = 2 inhalations pramipexole 0.75 mg tablet 0.75 mg PO DAILY ibuprofen 200 mg tablet 200 mg PO Q6H PRN (Reason: Pain (Scale Score 1-3)) gabapentin 600 mg tablet 600 mg PO TID Label Comments: 0700, 1400, 2100 acetaminophen 500 mg capsule 500 mg PO Q6H PRN (Reason: Pain (Scale Score 1-3)) valsartan 40 mg tablet 20 mg PO BID metoprolol succinate 25 mg tablet extended release 24 hr 25 mg PO BID torsemide 20 mg tablet 80 mg PO BID Label Comments: TAKE 2 TABLETS BY MOUTH IN THE MORNING AND 1 TABLET AT NIGHT quetiapine 25 mg tablet 25 mg PO BEDTIME MDD 50MG Qty: 40 5RF Rx Instructions: OK to repeat dose if not sleeping within 1 hour diazepam 5 mg tablet 5 mg PO BID PRN (Reason: anxiety) 30 Days Qty: 60 2RF Trintellix 20 mg tablet 20 mg PO DAILY 30 Days Qty: 30 5RF potassium chloride 20 mEq tablet extended release 10 meq PO DAILY PRN (Reason: Take w/lasix) Rx Instructions: Take w/lasix prn fluticasone propionate 50 mcg/actuation spray,suspension 1 spray intranasal BID Rx Instructions: administer into each nostril methocarbamol 750 mg tablet 750 mg PO TID PRN (Reason: Spasms) Qty: 90 3RF Rx Instructions: PRN epinephrine 0.3 mg/0.3 mL auto-injector 0.3 mg IM ONCE PRN (Reason: Allergic Reaction) Qty: 1 11RF sumatriptan succinate 100 mg tablet See Rx Instructions .ROUTE .COMPLEX Qty: 14 0RF Dose Instruction: TAKE 1 TABLET BY MOUTH ONCE AT ONSET OF MIGRAINE HEADACHE. MAY REPEAT IN 2 HOURS IF NO RELIEF. MAX OF 2 TABLETS PER DAY. Rx Instructions: TAKE 1 TABLET BY MOUTH ONCE AT ONSET OF MIGRAINE HEADACHE. MAY REPEAT IN 2 HOURS IF NO RELIEF. MAX OF 2 TABLETS PER DAY. montelukast 10 mg tablet See Rx Instructions .ROUTE .COMPLEX Qty: 90 0RF Dose Instruction: TAKE 1 TABLET BY MOUTH AT BEDTIME NEEDED FOR ALLERGY SYMPTOMS Rx Instructions: TAKE 1 TABLET BY MOUTH AT BEDTIME NEEDED FOR ALLERGY SYMPTOMS lidocaine 5 % Ointment 1 applic TOPICAL TID PRN (Reason: pain) ketotifen fumarate [Zaditor] 0.025 % (0.035 %) Drops 1 drp OPHTHALMIC (EYE) BID potassium chloride 20 mEq tablet extended release 40 meq PO DAILY Qty: 20 0RF hydrocodone-acetaminophen 5-325 mg tablet 1 tab PO Q6H PRN (Reason: pain) Qty: 7 0RF sennosides [senna] 8.6 mg Tablet 17.2 mg PO BEDTIME PRN (Reason: Constipation) diphenhydramine HCl [Benadryl] 25 mg Capsule 75 mg PO DAILY PRN (Reason: Allergy Symptoms) omeprazole 40 mg Capsule,Delayed Release(Dr/Ec) 40 mg PO BID ondansetron 8 mg Tablet,Disintegrating 8 mg PO Q8H PRN (Reason: Nausea) methylprednisolone 4 mg tablet 4 mg PO DAILY 3 Days Qty: 3 0RF mupirocin 2 % ointment 1 applic topical BID Qty: 15 0RF Referrals: Maxim Parks MD [Primary Care Provider] - Visit Report Forms: Patient Portal/API
[2022-01-24] MEDS: CLINDAMYCIN 150 MG CAPSULE 300 MG PO (00:15)
[2022-01-24] MEDS: HYDROCODONE/ACET 5/325 PREPACK 1 BOTTLE MISC (00:15)
--- NOTE | 2022-01-24 00:16 | PC.NURSE ---
Pt seen and assessed by MD without RN involvement. First contact with pt is discharge.
== END 2022-01-24 00:16 | disposition home or self-care (01) ==
PROVIDERS: Emergency Medicine; Emergency Provider Emergency Medicine; PCP Family Medicine
DX: L03.115 Cellulitis of right lower limb (principal)
CPT/HCPCS: 36415; 80053; 85025; 87040; 93971; 99284

== ENCOUNTER 2022-02-03 13:27 | Emergency (ER) | payer OTHER, MEDICAID, SELFPAY ==
[2021-06-04 16:30] VITALS: BMI 39.6
[2022-02-03 13:34] VITALS: BP 126/58; PULSE 82; RESP 16; TEMP 36.6; O2SAT 96; BMI 33.6
[2022-02-03 17:10] VITALS: BP 118/64; PULSE 79; O2SAT 98
== END 2022-02-03 17:40 | disposition left against medical advice (07) ==
PROVIDERS: Emergency Provider Emergency Medicine; PCP Family Medicine
CPT/HCPCS: 99281

== ENCOUNTER 2022-02-08 15:16 | Emergency (ER) | payer OTHER, MEDICAID, SELFPAY ==
[2021-06-04 16:30] VITALS: BMI 39.6
[2022-02-08 15:36] VITALS: BP 118/67; PULSE 82; RESP 16; TEMP 36.8; O2SAT 98; BMI 33.6
== END 2022-02-09 00:07 | disposition left against medical advice (07) ==
PROVIDERS: Emergency Provider Emergency Medicine; PCP Family Medicine
CPT/HCPCS: 99281

== ENCOUNTER 2022-02-14 21:41 | Emergency (ER) | payer MEDICARE, MEDICAID, SELFPAY ==
[2021-06-04 16:30] VITALS: BMI 39.6
[2022-02-14 22:07] VITALS: BP 129/59; PULSE 85; RESP 28; O2SAT 96; BMI 34.5
[2022-02-14 22:45] VITALS: BP 127/57; PULSE 81; O2SAT 94
[2022-02-14 22:46] LABS: Alanine Aminotransferase 20 IU/L (<35); Albumin 4.3 g/dL (3.5-5.0); Albumin Globulin Ratio 1.2 (1.0-2.8); Alkaline Phosphatase 147 U/L (38-126); Aspartate Aminotransferase 27 IU/L (14-36); BUN Creatinine Ratio 29.5 (6-22); Bilirubin Total 0.4 mg/dL (0.2-1.3); Blood Urea Nitrogen 33 mg/dL (7-17); Calcium 9.2 mg/dL (8.4-10.2); Carbon Dioxide 31 mmol/L (22-32); Chloride 94 mmol/L (98-107); Estimated Glomerular Filt Rate 54 mL/min (>60); Globulin 3.5 g/dL (1.7-4.1); Glucose 103 mg/dL (80-110); HEMOLYSIS < 15 (0-50); Hematocrit 34.2 % (36-46); Hemoglobin 11.4 g/dL (12.0-16.0); Lipase 173 U/L (23-300); Mean Corpuscular HGB Conc 33.5 % (30-36); Mean Corpuscular Hemoglobin 27.5 PG (26-34); Mean Corpuscular Volume 82.3 fL (80-100); Platelet Count 313 X10^3/uL (150-400); Potassium 2.9 mmol/L (3.4-5.1); Red Blood Cell Count 4.16 X10^6/uL (4.0-5.2); Red Cell Distribution Width 15.9 % (11.6-14.8); Sodium 136 mmol/L (137-145); Total Protein 7.8 g/dL (6.3-8.2); White Blood Cell Count 9.3 X10^3/uL (4.5-11.0)
[2022-02-14 22:47] LABS: Add Manual Diff / Slide Review YES
[2022-02-14 23:00] VITALS: BP 120/60; PULSE 83; O2SAT 96
--- NOTE | 2022-02-14 23:01 | ED_ITS ---
HPI - General Adult General Chief complaint: Abdominal Pain Stated complaint: pain in abd, states double hernia Time Seen by Provider: 02/14/22 22:47 Source: patient Mode of arrival: Wheelchair Limitations: no limitations History of Present Illness HPI narrative: Patient is a 66-year-old female. Is known to myself. Is here in the emergency department because she states that the hernia that is on the right side of her abdomen has become larger and more painful. He also states there is a hernia on the left side of her abdomen. She has an appointment on the with the surgeon to have this evaluated. She denies vomiting. No change in bowel habits. No urinary symptoms. Related Data Home Medications Medication Instructions Recorded Confirmed sennosides 8.6 mg tablet (senna) 17.2 mg PO BEDTIME PRN Constipation 09/20/18 08/19/21 potassium chloride 20 mEq 10 meq PO DAILY PRN Take w/lasix 10/29/18 08/19/21 tablet,extended release diphenhydramine HCl 25 mg capsule 75 mg PO DAILY PRN Allergy Symptoms 10/26/19 09/27/21 (Benadryl) omeprazole 40 mg capsule,delayed 40 mg PO BID 02/10/20 08/19/21 release lidocaine 5 % topical ointment 1 applic topical TID PRN pain 02/24/20 09/27/21 ketotifen fumarate 0.025 % (0.035 1 drp ophthalmic (eye) BID 03/02/20 09/27/21 %) eye drops (Zaditor) fluticasone propionate 50 1 spray intranasal BID 04/02/20 09/27/21 mcg/actuation nasal spray,suspension ondansetron 8 mg disintegrating 8 mg PO Q8H PRN Nausea 06/29/20 08/19/21 tablet metoprolol succinate 25 mg 25 mg PO BID 01/27/21 08/19/21 tablet,extended release 24 hr valsartan 40 mg tablet 20 mg PO BID 01/27/21 08/19/21 acetaminophen 500 mg capsule 500 mg PO Q6H PRN Pain (Scale 04/11/21 09/27/21 Score 1-3) gabapentin 600 mg tablet 600 mg PO TID 04/11/21 09/27/21 ibuprofen 200 mg tablet 200 mg PO Q6H PRN Pain (Scale 04/11/21 09/27/21 Score 1-3) pramipexole 0.75 mg tablet 0.75 mg PO DAILY 04/11/21 09/27/21 tiotropium bromide 18 mcg capsule 1 cap inhalation DAILY 04/11/21 08/19/21 with inhalation device (Spiriva with HandiHaler) torsemide 20 mg tablet 80 mg PO BID 08/19/21 08/19/21 Previous Rx's Medication Instructions Recorded methocarbamol 750 mg tablet 750 mg PO TID PRN Spasms #90 tabs 09/29/19 epinephrine 0.3 mg/0.3 mL 0.3 mg (0.3 mL) IM ONCE PRN 01/01/20 injection, auto-injector Allergic Reaction #1 ea methylprednisolone 4 mg tablet 4 mg PO DAILY 3 days #3 tabs 06/06/21 montelukast 10 mg tablet See Rx Instructions .Route 07/26/21 .COMPLEX #90 tabs sumatriptan succinate 100 mg tablet See Rx Instructions .Route 07/26/21 .COMPLEX #14 tabs Trintellix 20 mg tablet 20 mg PO DAILY 30 days #30 tabs 09/27/21 (vortioxetine) quetiapine 25 mg tablet 25 mg PO BEDTIME #40 tabs 09/27/21 mupirocin 2 % topical ointment 1 applic topical BID #15 grams 10/12/21 hydrocodone 5 mg-acetaminophen 325 1 tab PO Q6H PRN pain #7 tabs 11/23/21 mg tablet potassium chloride 20 mEq 40 meq PO DAILY #20 tabs 11/23/21 tablet,extended release clindamycin HCl 300 mg capsule 300 mg PO QID #28 caps 01/23/22 (Cleocin HCl) hydrocodone 5 mg-acetaminophen 325 1 tab PO Q6H PRN pain #10 tabs 01/23/22 mg tablet diazepam 5 mg tablet 5 mg PO BID PRN anxiety 30 days 01/30/22 #60 tabs Allergies Allergy/AdvReac Type Severity Reaction Status Date / Time Iodinated Contrast Media Allergy Severe Difficulty Verified 02/03/22 13:34 Breathing iodine Allergy Severe Difficulty Verified 02/03/22 13:34 Breathing latex Allergy Severe Rash Verified 02/03/22 13:34 morphine [MORPHINE] Allergy Severe Anaphylaxis Verified 02/03/22 13:34 Penicillins [PENICILLINS] Allergy Severe Anaphylaxis Verified 02/03/22 13:34 Sulfa (Sulfonamide Allergy Severe RASH Verified 02/03/22 13:34 Antibiotics) [SULFA (SULFONAMIDE ANTIBIOTICS)] azithromycin Allergy Intermediate Rash Verified 02/03/22 13:34 [From ZITHROMAX Z-MARILYN] cefuroxime [From Ceftin] Allergy Intermediate Rash Verified 02/03/22 13:34 sulfamethoxazole Allergy Intermediate RASH Verified 02/03/22 13:34 [From SEPTRA] trimethoprim [From SEPTRA] Allergy Intermediate RASH Verified 02/03/22 13:34 ciprofloxacin [From Cipro] Allergy Pt does Verified 02/03/22 13:34 not remember reaction Corticosteroids Allergy Swelling Verified 02/03/22 13:34 (Glucocorticoids) of Lip/Tongue/Throat cephalexin [From Keflex] AdvReac Severe Fever, Verified 02/03/22 13:34 Asthma, Tachycardia prednisone AdvReac Severe nausea and Verified 02/03/22 13:34 feels very weak, and axious verapamil AdvReac Intermediate Asthma Verified 02/03/22 13:34 symptoms zonisamide AdvReac Intermediate Asthma Verified 02/03/22 13:34 symptoms Review of Systems Constitutional Constitutional: Reports system reviewed and no additional complaints, except as documented Respiratory Respiratory: Reports system reviewed and no additional complaints, except as documented Gastrointestinal Gastrointestinal: Reports system reviewed and no additional complaints, except as documented Genitourinary Genitourinary: Reports system reviewed and no additional complaints, except as documented Integumentary/Breasts Skin/Breast: Reports system reviewed and no additional complaints, except as documented Hematologic/Lymphatic On Anticoagulants: No Patient History Medical History Anemia Anxiety Asthma Chronic back pain Chronic cough Depression Femur fracture, left Fibromyalgia Fractures GERD (gastroesophageal reflux disease) Hiatal hernia Recurrent sinusitis Venous insufficiency (chronic) (peripheral) Surgical History Anesthesia History of eye surgery (~1973) History of foot surgery History of hysterectomy (~1979) History of shoulder surgery (~2011) History of tonsillectomy (~1975) Hx of bilateral cataract extraction Family History Mother Heart disease Sister Heart disease Social History (Reviewed 02/15/22 @ 02:02 by ANITA June marital status: number of children: 1 household members: none lives independently: Yes caregiver/support person: Yes (3 afternoons per week) pets and animals: Yes occupational status: disabled Smoking Status: Never smoker alcohol intake: never substance use type: does not use Smoking Status: Never smoker alcohol intake frequency: holidays/special occasions only Substance Use Type: does not use Exam Initial Vital Signs Initial Vital Signs: Vital Signs Pulse Rate 85 02/14/22 22:07 Respiratory Rate 28 H 02/14/22 22:07 Blood Pressure 129/59 L 02/14/22 22:07 Pulse Oximetry 96 02/14/22 22:07 Oxygen Delivery Method 02/14/22 22:07 HENMT Head: normal to inspection and normocephalic Resp Auscultation: clear to auscultation bilaterally Cardio Rate: regular rate GI Inspection: non-distended Palpation: soft, No firm and hernia Neuro General: patient alert, patient awake and moves all extremities Extrem General: normal to inspection and capillary refill normal Course Orders Ordered: ED Orders 02/14/22 22:22 EKG-12 Lead Stat 02/14/22 22:25 Complete Blood Count AUTO DIFF Stat Comprehensive Metabolic Panel Stat Lipase Stat 02/14/22 23:03 CT abdomen pelvis w con Stat Ondansetron HCl (Ondansetron 4 Mg Odt) 4 mg PO NOW PRN PRN Reason: Nausea And Vomiting Ondansetron HCl (Ondansetron 4 Mg/2 Ml Inj) 4 mg IV NOW PRN PRN Reason: Nausea And Vomiting Discontinued Medications Diphenhydramine HCl (Diphenhydramine 50 Mg/Ml Vial) 25 mg IV NOW ONE Stop: 02/14/22 23:23 Last Admin: 02/14/22 23:31 Dose: 25 mg Documented By: GC Hydromorphone HCl (Hydromorphone 0.5 Mg Inj) 0.5 mg IV NOW ONE Stop: 02/14/22 23:04 Last Admin: 02/14/22 23:30 Dose: 0.5 mg Documented By: GC POTASSIUM CHLORIDE IN WATER (Potassium Cl 10 Meq/100 Ml Rebecca) 10 meq in 100 mls @ 100 mls/hr IV Q1H ZHANG Stop: 02/15/22 01:14 Last Admin: 02/15/22 00:57 Dose: 100 mls/hr Documented By: Infusion: 02/15/22 00:56 Dose: 0 mls/hr Documented By: Admin: 02/14/22 23:55 Dose: 100 mls/hr Documented By: NURIA Sodium Chloride (Normal Saline 0.9%) 1,000 mls @ 1,000 mls/hr IV BOLUS ONE Stop: 02/15/22 00:02 Last Infusion: 02/15/22 01:11 Dose: 0 mls/hr Documented By: Admin: 02/14/22 23:53 Dose: 1,000 mls/hr Documented By: NURIA Methylprednisolone (Methylprednisolone 125 Mg/2 Ml Vial) 125 mg IV NOW ONE Stop: 02/14/22 23:23 Last Admin: 02/14/22 23:31 Dose: 125 mg Documented By: NURIA Vital Signs Vital signs: Vital Signs - 8 hr 02/14/22 22:07 02/14/22 22:45 02/14/22 22:45 Pulse Rate 85 81 Respiratory Rate 28 H Blood Pressure 129/59 L 127/57 L Pulse Oximetry 96 94 Oxygen Delivery Method Room Air 02/14/22 23:00 02/14/22 23:00 02/14/22 23:30 Pulse Rate 83 Respiratory Rate Blood Pressure 120/60 116/62 Pulse Oximetry 96 Oxygen Delivery Method 02/14/22 23:30 02/15/22 00:04 02/15/22 00:30 Pulse Rate 82 99 H 79 Respiratory Rate Blood Pressure Pulse Oximetry 94 94 92 Oxygen Delivery Method 02/15/22 01:00 Pulse Rate 79 Respiratory Rate Blood Pressure Pulse Oximetry 93 Oxygen Delivery Method Medical Decision Making Medical Records Medical records reviewed: Yes I reviewed the patient's medical records. Lab Data Lab results reviewed: Yes I reviewed the patient's lab results. Result diagrams: 02/14/22 22:25 02/14/22 22:25 Labs: Lab Results 02/14/22 02/14/22 Range/Units 22:25 22:25 WBC 9.3 (4.5-11.0) X10^3/uL RBC 4.16 (4.0-5.2) X10^6/uL Hgb 11.4 L (12.0-16.0) g/dL Hct 34.2 L (36-46) % MCV 82.3 (80-100) fL MCH 27.5 (26-34) PG MCHC 33.5 (30-36) % RDW 15.9 H (11.6-14.8) % Plt Count 313 (150-400) X10^3/uL Neut % (Auto) Not Reportable Lymph % (Auto) Not Reportable [place] % (Auto) Not Reportable Eos % (Auto) Not Reportable Baso % (Auto) Not Reportable Lymph # (Auto) Not Reportable [place] # (Auto) Not Reportable Baso # (Auto) Not Reportable Sodium 136 L (137-145) mmol/L Potassium 2.9 L (3.4-5.1) mmol/L Chloride 94 L (98-107) mmol/L Carbon Dioxide 31 (22-32) mmol/L BUN 33 H (7-17) mg/dL Creatinine 1.12 H (0.52-1.04) mg/dL Estimated GFR 54 L (>60) mL/min BUN/Creatinine Ratio 29.5 H (6-22) Glucose 103 (80-110) mg/dL Calcium 9.2 (8.4-10.2) mg/dL Total Bilirubin 0.4 (0.2-1.3) mg/dL AST 27 (14-36) IU/L ALT 20 (<35) IU/L Alkaline Phosphatase 147 H (38-126) U/L Total Protein 7.8 (6.3-8.2) g/dL Albumin 4.3 (3.5-5.0) g/dL Globulin 3.5 (1.7-4.1) g/dL Albumin/Globulin Ratio 1.2 (1.0-2.8) Lipase 173 (23-300) U/L Imaging Data CT scan - abdomen/pelvis: Radiologist's Impression: [address] [address] [address] Scan Report Signed Patient: Sheryl Lennon MR#: [id number] : 1955 Acct:[id number] Age/Sex: 66 / F Date of Service: 02/14/22 Loc: ED Accession Number: [id number] ?? Procedure: CT abdomen pelvis w con Ordering Provider: Kin Carrion D.O. PROCEDURE:? CT ABDOMEN PELVIS W CON ? INDICATIONS:? Ventral hernia, eval for strangulation ? TECHNIQUE:? After the administration of IV contrast, axial sections were acquired from the lung bases to the pubic symphysis.? Coronal and sagittal reformats were performed.? For radiation dose reduction, the following was used:? automated exposure control, adjustment of mA and/or kV according to patient size. ? COMPARISON:? [facility], CT, CT ABDOMEN PELVIS WO CON, 07/14/2020, 10:51.? [facility], CT, CT BIOPSY RENAL, 09/26/2021, 13:10.? [facility], CT, CT ABDOMEN PELVIS WITH CONTRAST, 09/27/2021, 23:18.? [facility], CT, CT ABDOMEN PELVIS W CON, 11/22/2021, 23:12. ? FINDINGS:? Image quality:? There is metallic streak artifact from patient's surgical hardware in the proximal left femur.? ? Lung bases:? There is mild atelectasis and scarring in the lung bases.? ? Heart:? Heart is normal in size.? There is a small hiatal hernia. ? ? ABDOMEN: Liver:? No mass lesion. Gallbladder:? Within normal limits without calcified gallstones.? ? Biliary ducts:? No biliary ductal dilatation.? ? Pancreas:? Unremarkable.? ? Spleen:? Normal in size.? ? Adrenal Glands:? No adrenal nodules.? ? Kidneys and Ureters:? No hydronephrosis.? A heterogeneously enhancing oval right renal mass is redemonstrated, measuring up to 2.3 x 2.2 cm, progressively increased in size compared to the prior studies.? This previously measured 1.6 x 1.5 cm on the 07/14/2020 study.? The mass abuts the posterior aspect of the right hepatic lobe.? No evidence of renal vein invasion. Stomach and Bowel:? Stomach, small bowel loops, and colon are normal in caliber and wall thickness.? Peritoneum:? No abnormal intraperitoneal fluid.? No free air.? ? Ventral Wall: ? There is a right anterolateral spigelian hernia redemonstrated with a herniated segment of the distal ascending and proximal transverse colon.? No associated bowel wall thickening or obstruction. Abdominal Nodes:? No retroperitoneal or mesenteric adenopathy by size criteria.? Vessels:? Aorta and inferior vena cava are normal in size.? ? PELVIS: Pelvic Organs:? The uterus is surgically absent.? ? Bladder:? Unremarkable.? ? Pelvic Nodes: No enlarged lymph nodes.? Miscellaneous: No inguinal hernias are seen. ? ? ? Bones:? Visualized osseous structures demonstrate no suspicious focal lesions. ? IMPRESSION:? ? 1. Right anterolateral spigelian hernia with associated herniated colonic segment redemonstrated.? No evidence of associated bowel obstruction or definite bowel strangulation. ? 2. Heterogeneous enhancing solid right renal mass demonstrates progressive increase in size compared to the prior studies.? Although the previous biopsy did not demonstrate a neoplasm, imaging findings remain suspicious for a probable renal cell carcinoma.? Given the possibility of sampling error from prior biopsy, recommend urologic follow- up and possible repeat biopsy.? ? ? Dictated by: Abimael Lyon M.D. on 02/15/2022 at 0:21 ? ? Approved by: Abimael Lyon M.D. on 02/15/2022 at 0:31?? MDM Narrative Medical decision making narrative: CT scan today does show the ventral hernias but no new findings to include i ncarceration or strangulation. I did inform the patient of this. Is told her that she needs to follow-up with general surgeon that she already has scheduled for the . I once again informed her of the finding of mass on her kidney. I explicitly told her that this is concerning for cancer and that she needs follow-up with Urology. She stated that her primary doctor will not put in a referral for her to see Urology. I told her that it is important for her to do so to get further evaluation of this despite already having a biopsy of it in the past. No indication for admission the hospital today. Her potassium was replaced. She has potassium at home. Will discharge patient home with return precautions. Discharge Plan Departure Patient Disposition: Home Clinical Impression: Ventral hernia, Hypokalemia, Mass of right kidney Activity Restrictions/Additional Instructions: You do have hernias today however they are unchanged from prior and showed no signs of strangulation or herniation. I recommend that you keep your appointment that you have with the surgeon that is coming up in a couple days. Continue to take your home potassium supplements. Like we discussed there ta nues to be a mass on your right kidney. This is a very concerning finding and you do need to talk with your primary doctor about referral to see Urology to have this re-evaluated. I recommend that you contact your primary doctor tomorrow to start this process. Continue the rest of your medications as directed. Prescriptions: No Action Spiriva with HandiHaler 18 mcg capsule, w/inhalation device 1 cap inhalation DAILY Rx Instructions: puncture 1 cap using device; one dose = 2 inhalations pramipexole 0.75 mg tablet 0.75 mg PO DAILY ibuprofen 200 mg tablet 200 mg PO Q6H PRN (Reason: Pain (Scale Score 1-3)) gabapentin 600 mg tablet 600 mg PO TID Label Comments: 0700, 1400, 2100 acetaminophen 500 mg capsule 500 mg PO Q6H PRN (Reason: Pain (Scale Score 1-3)) valsartan 40 mg tablet 20 mg PO BID metoprolol succinate 25 mg tablet extended release 24 hr 25 mg PO BID torsemide 20 mg tablet 80 mg PO BID Label Comments: TAKE 2 TABLETS BY MOUTH IN THE MORNING AND 1 TABLET AT NIGHT quetiapine 25 mg tablet 25 mg PO BEDTIME MDD 50MG Qty: 40 5RF Rx Instructions: OK to repeat dose if not sleeping within 1 hour Trintellix 20 mg tablet 20 mg PO DAILY 30 Days Qty: 30 5RF potassium chloride 20 mEq tablet extended release 10 meq PO DAILY PRN (Reason: Take w/lasix) Rx Instructions: Take w/lasix prn fluticasone propionate 50 mcg/actuation spray,suspension 1 spray intranasal BID Rx Instructions: administer into each nostril methocarbamol 750 mg tablet 750 mg PO TID PRN (Reason: Spasms) Qty: 90 3RF Rx Instructions: PRN epinephrine 0.3 mg/0.3 mL auto-injector 0.3 mg IM ONCE PRN (Reason: Allergic Reaction) Qty: 1 11RF sumatriptan succinate 100 mg tablet See Rx Instructions .ROUTE .COMPLEX Qty: 14 0RF Dose Instruction: TAKE 1 TABLET BY MOUTH ONCE AT ONSET OF MIGRAINE HEADACHE. MAY REPEAT IN 2 HOURS IF NO RELIEF. MAX OF 2 TABLETS PER DAY. Rx Instructions: TAKE 1 TABLET BY MOUTH ONCE AT ONSET OF MIGRAINE HEADACHE. MAY REPEAT IN 2 HOURS IF NO RELIEF. MAX OF 2 TABLETS PER DAY. montelukast 10 mg tablet See Rx Instructions .ROUTE .COMPLEX Qty: 90 0RF Dose Instruction: TAKE 1 TABLET BY MOUTH AT BEDTIME NEEDED FOR ALLERGY SYMPTOMS Rx Instructions: TAKE 1 TABLET BY MOUTH AT BEDTIME NEEDED FOR ALLERGY SYMPTOMS diazepam 5 mg tablet 5 mg PO BID PRN (Reason: anxiety) 30 Days Qty: 60 0RF lidocaine 5 % Ointment 1 applic TOPICAL TID PRN (Reason: pain) ketotifen fumarate [Zaditor] 0.025 % (0.035 %) Drops 1 drp OPHTHALMIC (EYE) BID potassium chloride 20 mEq tablet extended release 40 meq PO DAILY Qty: 20 0RF hydrocodone-acetaminophen 5-325 mg tablet 1 tab PO Q6H PRN (Reason: pain) Qty: 7 0RF sennosides [senna] 8.6 mg Tablet 17.2 mg PO BEDTIME PRN (Reason: Constipation) diphenhydramine HCl [Benadryl] 25 mg Capsule 75 mg PO DAILY PRN (Reason: Allergy Symptoms) omeprazole 40 mg Capsule,Delayed Release(Dr/Ec) 40 mg PO BID ondansetron 8 mg Tablet,Disintegrating 8 mg PO Q8H PRN (Reason: Nausea) methylprednisolone 4 mg tablet 4 mg PO DAILY 3 Days Qty: 3 0RF mupirocin 2 % ointment 1 applic topical BID Qty: 15 0RF clindamycin HCl [Cleocin HCl] 300 mg capsule 300 mg PO QID Qty: 28 0RF hydrocodone-acetaminophen 5-325 mg tablet 1 tab PO Q6H PRN (Reason: pain) Qty: 10 0RF Referrals: Maxim Parks MD [Primary Care Provider] - Stand Alone Forms: Patient Portal/API
--- NOTE | 2022-02-14 23:03 | DI.CT.S_ITS ---
PROCEDURE: CT ABDOMEN PELVIS W CON INDICATIONS: Ventral hernia, eval for strangulation TECHNIQUE: After the administration of IV contrast, axial sections were acquired from the lung bases to the pubic symphysis. Coronal and sagittal reformats were performed. For radiation dose reduction, the following was used: automated exposure control, adjustment of mA and/or kV according to patient size. COMPARISON: [facility], CT, CT ABDOMEN PELVIS WO CON, 07/14/2020, 10:51. [facility], CT, CT BIOPSY RENAL, 09/26/2021, 13:10. [facility], CT, CT ABDOMEN PELVIS WITH CONTRAST, 09/27/2021, 23:18. [facility], CT, CT ABDOMEN PELVIS W CON, 11/22/2021, 23:12. FINDINGS: Image quality: There is metallic streak artifact from patient's surgical hardware in the proximal left femur. Lung bases: There is mild atelectasis and scarring in the lung bases. Heart: Heart is normal in size. There is a small hiatal hernia. ABDOMEN: Liver: No mass lesion. Gallbladder: Within normal limits without calcified gallstones. Biliary ducts: No biliary ductal dilatation. Pancreas: Unremarkable. Spleen: Normal in size. Adrenal Glands: No adrenal nodules. Kidneys and Ureters: No hydronephrosis. A heterogeneously enhancing oval right renal mass is redemonstrated, measuring up to 2.3 x 2.2 cm, progressively increased in size compared to the prior studies. This previously measured 1.6 x 1.5 cm on the 07/14/2020 study. The mass abuts the posterior aspect of the right hepatic lobe. No evidence of renal vein invasion. Stomach and Bowel: Stomach, small bowel loops, and colon are normal in caliber and wall thickness. Peritoneum: No abnormal intraperitoneal fluid. No free air. Ventral Wall: There is a right anterolateral spigelian hernia redemonstrated with a herniated segment of the distal ascending and proximal transverse colon. No associated bowel wall thickening or obstruction. Abdominal Nodes: No retroperitoneal or mesenteric adenopathy by size criteria. Vessels: Aorta and inferior vena cava are normal in size. PELVIS: Pelvic Organs: The uterus is surgically absent. Bladder: Unremarkable. Pelvic Nodes: No enlarged lymph nodes. Miscellaneous: No inguinal hernias are seen. Bones: Visualized osseous structures demonstrate no suspicious focal lesions. IMPRESSION: 1. Right anterolateral spigelian hernia with associated herniated colonic segment redemonstrated. No evidence of associated bowel obstruction or definite bowel strangulation. 2. Heterogeneous enhancing solid right renal mass demonstrates progressive increase in size compared to the prior studies. Although the previous biopsy did not demonstrate a neoplasm, imaging findings remain suspicious for a probable renal cell carcinoma. Given the possibility of sampling error from prior biopsy, recommend urologic follow-up and possible repeat biopsy. Dictated by: Abimael Lyon M.D. on 02/15/2022 at 0:21 Approved by: Abimael Lyon M.D. on 02/15/2022 at 0:31
[2022-02-14 23:30] VITALS: BP 116/62; PULSE 82; O2SAT 94
[2022-02-14] MEDS: HYDROMORPHONE 0.5 MG INJ IV (23:30)
[2022-02-14] MEDS: diphenhydrAMINE 50 MG/ML VIAL 25 MG IV (23:31)
[2022-02-14] MEDS: methylPREDNISolone 125 MG/2 ML VIAL IV (23:31)
[2022-02-14] MEDS: SODIUM CHLORIDE 0.9% 1,000 ML 1000 ML IV (23:53)
[2022-02-14] MEDS: POTASSIUM CHLORIDE IN WATER 10 MEQ/100 ML PIGGYBACK 100 MEQ IV (23:55)
[2022-02-15 00:04] VITALS: PULSE 99; O2SAT 94
[2022-02-15 00:30] VITALS: PULSE 79; O2SAT 92
[2022-02-15] MEDS: POTASSIUM CHLORIDE IN WATER 10 MEQ/100 ML PIGGYBACK 100 MEQ IV (00:57)
[2022-02-15 01:00] VITALS: PULSE 79; O2SAT 93
[2022-02-15 01:30] VITALS: PULSE 82; O2SAT 96
[2022-02-15 02:00] VITALS: BP 116/62; PULSE 78; TEMP 36.3; O2SAT 95
[2022-02-15 02:16] VITALS: BP 116/62; PULSE 74; RESP 16; TEMP 36.3; O2SAT 96
[2022-02-15 02:38] LABS: Total Cells Counted 100
[2022-02-15 02:39] LABS: Neutrophils Absolute Manual 5673 /uL (3000-5900)
[2022-02-15 02:40] LABS: Anisocytosis 1+
== END 2022-02-15 02:18 | disposition home or self-care (01) ==
PROVIDERS: Emergency Provider Emergency Medicine; PCP Family Medicine
DX: K43.9 Ventral hernia without obstruction or gangrene (principal); E87.6 Hypokalemia; N28.89 Other specified disorders of kidney and ureter; Z79.899 Other long term (current) drug therapy
CPT/HCPCS: 36415; 74177; 80053; 83690; 85007; 85025; 96365; 96366; 96375; 99284; J1170; J1200; J2930; Q9967

== ENCOUNTER → 2022-04-21 14:45 | Outpatient (CLI) | payer MEDICARE, MEDICAID, SELFPAY ==
[2021-06-04 16:30] VITALS: BMI 39.6
--- NOTE | 2022-04-21 | DI.ECHO.S_ITS ---
[place] [facility]---------+ [facility] +---------+ : : [address] : : : : [id number] : : : : Phone: [phone]+ Echocardiogram Report + + :Name: YADIRA HAN Study Date: 04/21/2022 Height: 63 in : :[facility] ReadingLocation: Weight: 190 lb : : Gender: Female BSA: 1.9 m2 : :: 1955 Age: 66 yrs BP: 138/85 mmHg: :Reason For Study: Pre-op : :Ordering Physician: RITA, : :RAMON Performed By: Honey Mercado : :Referring: RAMON SALINAS : + + Interpretation Summary 1) Normal left ventricular thickness, size, wall motion, and systolic function (EF 65-70%). 2) Normal chamber sizes 3) No significant valvular abnormalities. 4) The right ventricular systolic pressure is estimated to be 33 mm Hg assuming RA pressure of 3 mm Hg 5) Compared to the Echo done 06/05/2021, elevated PA systolic pressure of 47 mm Hg is no longer appreciated. Procedure: A two-dimensional transthoracic echocardiogram with color flow and Doppler was performed. The study quality was technically adequate. There has been no significant change since the previous study. Left Ventricle: The left ventricle is normal in size and wall thickness. Right Ventricle: The right ventricle is normal in size and function. Atria: The left atrial size is normal. Right atrial size is normal. There is no Doppler evidence for an interatrial shunt. Mitral Valve: The mitral valve is normal in structure and function. There is no mitral regurgitation noted. Aortic Valve: The aortic valve is normal in structure and function. There is trace aortic regurgitation. Tricuspid Valve: The tricuspid valve is normal in structure and function. There is a trace or physiologic amount of tricuspid regurgitation. Pulmonic Valve: The pulmonic valve leaflets are thin and pliable; valve motion is normal. There is no pulmonic valvular regurgitation. Great Vessels: The aortic root is normal size. The ascending aorta is normal in size. The pulmonary artery is normal size. The IVC is of normal diameter and collapses greater than 50% with a sniff. This suggests a low right atrial pressure of 3 mm Hg. Pericardium/ Pleura There is no pericardial effusion. There is no pleural effusion. MMode/2D Measurements & Calculations LVIDd: 4.1 cm LVOT diam: 2.0 cm LVIDs: 3.0 cm Ao root diam: 2.9 cm FS: 26.8 % asc Aorta Diam: 3.2 cm EPSS: 0.40 cm IVSd: 1.1 cm LVPWd: 1.0 cm LV daniels. diameter/BSA (cm/m^2): 2.2 LV sys. diameter/BSA (cm/m^2): 1.6 LA dimension: 3.5 cm RA long axis: 4.7 cm LA A2 area: 14.4 cm2 RA area: 15.8 cm2 LA A4 area: 17.8 cm2 RA vol: 45.1 ml LA length (vol): 4.4 cm RA : 23.9 ml/m2 LA vol: 49.7 ml LA vol index: 26.3 ml/m2 RVD1 (basal): 3.4 cm LVLs ap4: 4.2 cm LVLd ap2: 6.7 cm TAPSE_phl: 2.7 cm LVLs ap2: 5.3 cm Doppler Measurements & Calculations Ao V2 max: 133.0 cm/sec LVOT Max Vic: 121.0 cm/sec Ao V2 mean: 101.0 cm/sec LV V1 max P.9 mmHg Ao max P.0 mmHg LV V1 VTI: 23.7 cm Ao mean P.0 mmHg JEREMIE(I,D): 2.7 cm2 Ao V2 VTI: 27.3 cm JEREMIE(V,D): 2.9 cm2 sev ratio: 0.87 JEREMIE indexed to BSA (cm^2/m^2): 1.4 MV E max vic: 74.3 cm/sec TR max vic: 277.0 cm/sec MV A max vic: 112.4 cm/sec TR max P.7 mmHg MV E/A: 0.66 PA V2 max: 94.8 cm/sec MV dec time: 0.18 sec PA V2 mean: 70.8 cm/sec MVA(VTI): 3.6 cm2 PA mean P.0 mmHg MV V2 mean: 60.1 cm/sec SV(LVOT): 74.5 ml MV mean P.7 mmHg MV V2 VTI: 20.5 cm AV VR_phl: 0.91 JEREMIE(VTI)/BSA_phl: 1.4 Electronically signed by: Leidy Strange M.D. on Reading Physician:04/22/2022 02:22 AM
== END ==
PROVIDERS: PCP Family Medicine; Referring Provider Internal Medicine; Visit Provider Internal Medicine
DX: I50.32 Chronic diastolic (congestive) heart failure (principal)
CPT/HCPCS: 93306

== ENCOUNTER 2022-04-30 20:31 | Emergency (ER) | payer MEDICARE, MEDICAID, SELFPAY ==
[2021-06-04 16:30] VITALS: BMI 39.6
[2022-04-30 20:57] VITALS: BP 133/101; PULSE 110; RESP 20; TEMP 37.1; O2SAT 95; BMI 34.0
--- NOTE | 2022-04-30 21:02 | ED_ITS ---
HPI - Abdominal Pain General Chief Complaint: Abdominal Pain Stated Complaint: surgery 04/25/22 abd pain Time Seen by Provider: 04/30/22 20:53 Source: patient Mode of arrival: Wheelchair History of Present Illness HPI narrative: 66-year-old female nonsmoker with history of hypokalemia, kidney mass presents complaining of severe right-sided pain after recent surgery. She is had no fever chills and denies any chest pain, shortness of breath but does complain of severe pain thought to be related to her surgery. She denies any vomiting but has been nauseated. Related Data Home Medications Medication Instructions Recorded Confirmed sennosides 8.6 mg tablet (senna) 17.2 mg PO BEDTIME PRN Constipation 09/20/18 08/19/21 potassium chloride 20 mEq 10 meq PO DAILY PRN Take w/lasix 10/29/18 08/19/21 tablet,extended release diphenhydramine HCl 25 mg capsule 75 mg PO DAILY PRN Allergy Symptoms 10/26/19 09/27/21 (Benadryl) omeprazole 40 mg capsule,delayed 40 mg PO BID 02/10/20 08/19/21 release lidocaine 5 % topical ointment 1 applic topical TID PRN pain 02/24/20 09/27/21 ketotifen fumarate 0.025 % (0.035 1 drp ophthalmic (eye) BID 03/02/20 09/27/21 %) eye drops (Zaditor) fluticasone propionate 50 1 spray intranasal BID 04/02/20 09/27/21 mcg/actuation nasal spray,suspension ondansetron 8 mg disintegrating 8 mg PO Q8H PRN Nausea 06/29/20 08/19/21 tablet metoprolol succinate 25 mg 25 mg PO BID 01/27/21 08/19/21 tablet,extended release 24 hr valsartan 40 mg tablet 20 mg PO BID 01/27/21 08/19/21 acetaminophen 500 mg capsule 500 mg PO Q6H PRN Pain (Scale 04/11/21 09/27/21 Score 1-3) gabapentin 600 mg tablet 600 mg PO TID 04/11/21 09/27/21 ibuprofen 200 mg tablet 200 mg PO Q6H PRN Pain (Scale 04/11/21 09/27/21 Score 1-3) pramipexole 0.75 mg tablet 0.75 mg PO DAILY 04/11/21 09/27/21 tiotropium bromide 18 mcg capsule 1 cap inhalation DAILY 04/11/21 08/19/21 with inhalation device (Spiriva with HandiHaler) torsemide 20 mg tablet 80 mg PO BID 08/19/21 08/19/21 Previous Rx's Medication Instructions Recorded methocarbamol 750 mg tablet 750 mg PO TID PRN Spasms #90 tabs 09/29/19 epinephrine 0.3 mg/0.3 mL 0.3 mg (0.3 mL) IM ONCE PRN 01/01/20 injection, auto-injector Allergic Reaction #1 ea methylprednisolone 4 mg tablet 4 mg PO DAILY 3 days #3 tabs 06/06/21 montelukast 10 mg tablet See Rx Instructions .Route 07/26/21 .COMPLEX #90 tabs sumatriptan succinate 100 mg tablet See Rx Instructions .Route 07/26/21 .COMPLEX #14 tabs Trintellix 20 mg tablet 20 mg PO DAILY 30 days #30 tabs 09/27/21 (vortioxetine) mupirocin 2 % topical ointment 1 applic topical BID #15 grams 10/12/21 hydrocodone 5 mg-acetaminophen 325 1 tab PO Q6H PRN pain #7 tabs 11/23/21 mg tablet potassium chloride 20 mEq 40 meq PO DAILY #20 tabs 11/23/21 tablet,extended release clindamycin HCl 300 mg capsule 300 mg PO QID #28 caps 01/23/22 (Cleocin HCl) hydrocodone 5 mg-acetaminophen 325 1 tab PO Q6H PRN pain #10 tabs 01/23/22 mg tablet diazepam 5 mg tablet 5 mg PO BID PRN anxiety 30 days 04/24/22 #60 tabs quetiapine 25 mg tablet 25 mg PO BEDTIME #40 tabs 04/24/22 Allergies Allergy/AdvReac Type Severity Reaction Status Date / Time Iodinated Contrast Media Allergy Severe Difficulty Verified 02/03/22 13:34 Breathing iodine Allergy Severe Difficulty Verified 02/03/22 13:34 Breathing latex Allergy Severe Rash Verified 02/03/22 13:34 morphine [MORPHINE] Allergy Severe Anaphylaxis Verified 02/03/22 13:34 Penicillins [PENICILLINS] Allergy Severe Anaphylaxis Verified 02/03/22 13:34 Sulfa (Sulfonamide Allergy Severe RASH Verified 02/03/22 13:34 Antibiotics) [SULFA (SULFONAMIDE ANTIBIOTICS)] azithromycin Allergy Intermediate Rash Verified 02/03/22 13:34 [From ZITHROMAX Z-MARILYN] cefuroxime [From Ceftin] Allergy Intermediate Rash Verified 02/03/22 13:34 sulfamethoxazole Allergy Intermediate RASH Verified 02/03/22 13:34 [From SEPTRA] trimethoprim [From SEPTRA] Allergy Intermediate RASH Verified 02/03/22 13:34 ciprofloxacin [From Cipro] Allergy Pt does Verified 02/03/22 13:34 not remember reaction Corticosteroids Allergy Swelling Verified 02/03/22 13:34 (Glucocorticoids) of Lip/Tongue/Throat cephalexin [From Keflex] AdvReac Severe Fever, Verified 02/03/22 13:34 Asthma, Tachycardia prednisone AdvReac Severe nausea and Verified 02/03/22 13:34 feels very weak, and axious verapamil AdvReac Intermediate Asthma Verified 02/03/22 13:34 symptoms zonisamide AdvReac Intermediate Asthma Verified 02/03/22 13:34 symptoms Review of Systems Review of Systems Narrative: GENERAL: See HPI HEENT: Denies sinus pain, ear pain, sore throat, difficulty swallowing, dizziness. RESPIRATORY: Denies dyspnea, cough, wheezing, hemoptysis, sputum. CARDIOVASCULAR: Denies chest pain, palpitations, orthopnea, edema, GASTROINTESTINAL: See HPI : Denies dysuria, frequency, incontinence, hematuria, urinary retention. MUSCULOSKELETAL: denies weakness, joint pain, or bony pain SKIN: Denies rash, skin lesions, or other NEUROLOGIC: Denies weakness, headache, numbness, change in speech, confusion, seizures, incoordination. PSYCHIATRIC: No concerning psychosocial issues. 12 point review of systems is negative except for those stated above Patient History Medical History Anemia Anxiety Asthma Chronic back pain Chronic cough Depression Femur fracture, left Fibromyalgia Fractures GERD (gastroesophageal reflux disease) Hiatal hernia Recurrent sinusitis Venous insufficiency (chronic) (peripheral) Surgical History Anesthesia History of eye surgery (~1973) History of foot surgery History of hysterectomy (~1979) History of shoulder surgery (~2011) History of tonsillectomy (~1975) Hx of bilateral cataract extraction Family History Mother Heart disease Sister Heart disease Social History marital status: number of children: 1 household members: none lives independently: Yes caregiver/support person: Yes (3 afternoons per week) pets and animals: Yes occupational status: disabled Smoking Status: Never smoker alcohol intake: never substance use type: does not use Smoking Status: Never smoker alcohol intake frequency: holidays/special occasions only Substance Use Type: does not use Exam Narrative Exam Narrative: GEN: AOx3 and in obvious distress, sitting forward in wheelchair and rubbing her abdomen and side EYES: Pupils are equal, round, and reactive to light and accommodation. Extraoccular muscles are intact bilaterally. There is no subconjunctival hemorrhage or exudate. CHEST: Lungs are clear to auscultation bilaterally and free of wheezes, rales, or rhonchi. Heart rate is regular rhythm, there are no murmurs, clicks, rubs, or gallops. There is no chest wall tenderness. ABD: Abdomen is tender, unable to perform complete exam as she is in wheelchair wearing a jacket and fully clothed EXT: Full painless ROM of all extremities with no loss of sensation or strength. SKIN: Warm, pink, and dry. No erythema or rash Initial Vital Signs Initial Vital Signs: Vital Signs Temperature 98.7 F 04/30/22 20:57 Pulse Rate 110 H 04/30/22 20:57 Respiratory Rate 20 04/30/22 20:57 Blood Pressure 133/101 H 04/30/22 20:57 Pulse Oximetry 95 04/30/22 20:57 Oxygen Delivery Method Room Air 04/30/22 20:57 Course Orders Ordered: Discontinued Medications Diphenhydramine HCl (Diphenhydramine 50 Mg/Ml Vial) 25 mg IV NOW ONE Stop: 04/30/22 21:03 Famotidine (Famotidine 20 Mg/2 Ml Vial) 20 mg IV NOW ZHANG Hydromorphone HCl (Hydromorphone 0.5 Mg Inj) 0.5 mg IV NOW ONE Stop: 04/30/22 21:03 Sodium Chloride (Normal Saline 0.9%) 500 mls @ 1,000 mls/hr IV BOLUS ONE Stop: 04/30/22 21:31 Methylprednisolone (Methylprednisolone 125 Mg/2 Ml Vial) 125 mg IV NOW ONE Stop: 04/30/22 21:03 Ondansetron HCl (Ondansetron 4 Mg/2 Ml Inj) 4 mg IV NOW ONE Stop: 04/30/22 21:03 Vital Signs Vital signs: Vital Signs - 8 hr 04/30/22 20:57 Temperature 98.7 F Pulse Rate 110 H Respiratory Rate 20 Blood Pressure 133/101 H Pulse Oximetry 95 Oxygen Delivery Method Room Air MDM - Abdominal Pain MDM Narrative Medical decision making narrative: I was only able to see the patient briefly to perform medical screening exam at the registration desk. She was clearly uncomfortable and having abdominal pain. Full workup including IV, labs and medications to prep for CT of abdomen and pelvis were ordered. Patient signed out Against Medical Advice and refused any of our efforts, stating that she wanted to go home. She understands the risks and benefits of this decision and was encouraged to wait for room so we could be sure there was no serious complication of her surgery that can be life- threatening or leave her with permanent disability. She is able to demonstrate capacity to make her own decisions, she understands these risks and chooses to leave nonetheless. She understands that she may return immediately for any change of heart Discharge Plan Departure Patient Disposition: Left Against Medical Advice Clinical Impression: Abdominal pain Prescriptions: No Action Spiriva with HandiHaler 18 mcg capsule, w/inhalation device 1 cap inhalation DAILY Rx Instructions: puncture 1 cap using device; one dose = 2 inhalations pramipexole 0.75 mg tablet 0.75 mg PO DAILY ibuprofen 200 mg tablet 200 mg PO Q6H PRN (Reason: Pain (Scale Score 1-3)) gabapentin 600 mg tablet 600 mg PO TID Patient Comments: 0700, 1400, 2100 acetaminophen 500 mg capsule 500 mg PO Q6H PRN (Reason: Pain (Scale Score 1-3)) valsartan 40 mg tablet 20 mg PO BID metoprolol succinate 25 mg tablet extended release 24 hr 25 mg PO BID torsemide 20 mg tablet 80 mg PO BID Patient Comments: TAKE 2 TABLETS BY MOUTH IN THE MORNING AND 1 TABLET AT NIGHT Trintellix 20 mg tablet 20 mg PO DAILY 30 Days Qty: 30 5RF potassium chloride 20 mEq tablet extended release 10 meq PO DAILY PRN (Reason: Take w/lasix) Rx Instructions: Take w/lasix prn fluticasone propionate 50 mcg/actuation spray,suspension 1 spray intranasal BID Rx Instructions: administer into each nostril methocarbamol 750 mg tablet 750 mg PO TID PRN (Reason: Spasms) Qty: 90 3RF Rx Instructions: PRN epinephrine 0.3 mg/0.3 mL auto-injector 0.3 mg IM ONCE PRN (Reason: Allergic Reaction) Qty: 1 11RF sumatriptan succinate 100 mg tablet See Rx Instructions .ROUTE .COMPLEX Qty: 14 0RF Dose Instruction: TAKE 1 TABLET BY MOUTH ONCE AT ONSET OF MIGRAINE HEADACHE. MAY REPEAT IN 2 HOURS IF NO RELIEF. MAX OF 2 TABLETS PER DAY. Rx Instructions: TAKE 1 TABLET BY MOUTH ONCE AT ONSET OF MIGRAINE HEADACHE. MAY REPEAT IN 2 HOURS IF NO RELIEF. MAX OF 2 TABLETS PER DAY. montelukast 10 mg tablet See Rx Instructions .ROUTE .COMPLEX Qty: 90 0RF Dose Instruction: TAKE 1 TABLET BY MOUTH AT BEDTIME NEEDED FOR ALLERGY SYMPTOMS Rx Instructions: TAKE 1 TABLET BY MOUTH AT BEDTIME NEEDED FOR ALLERGY SYMPTOMS quetiapine 25 mg tablet 25 mg PO BEDTIME MDD 50MG Qty: 40 2RF Rx Instructions: OK to repeat dose if not sleeping within 1 hour diazepam 5 mg tablet 5 mg PO BID PRN (Reason: anxiety) 30 Days Qty: 60 0RF lidocaine 5 % Ointment 1 applic TOPICAL TID PRN (Reason: pain) ketotifen fumarate [Zaditor] 0.025 % (0.035 %) Drops 1 drp OPHTHALMIC (EYE) BID potassium chloride 20 mEq tablet extended release 40 meq PO DAILY Qty: 20 0RF hydrocodone-acetaminophen 5-325 mg tablet 1 tab PO Q6H PRN (Reason: pain) Qty: 7 0RF sennosides [senna] 8.6 mg Tablet 17.2 mg PO BEDTIME PRN (Reason: Constipation) diphenhydramine HCl [Benadryl] 25 mg Capsule 75 mg PO DAILY PRN (Reason: Allergy Symptoms) omeprazole 40 mg Capsule,Delayed Release(Dr/Ec) 40 mg PO BID ondansetron 8 mg Tablet,Disintegrating 8 mg PO Q8H PRN (Reason: Nausea) methylprednisolone 4 mg tablet 4 mg PO DAILY 3 Days Qty: 3 0RF mupirocin 2 % ointment 1 applic topical BID Qty: 15 0RF clindamycin HCl [Cleocin HCl] 300 mg capsule 300 mg PO QID Qty: 28 0RF hydrocodone-acetaminophen 5-325 mg tablet 1 tab PO Q6H PRN (Reason: pain) Qty: 10 0RF Stand Alone Forms: Against Medical Advice
--- NOTE | 2022-05-01 14:18 | PC.NURSE ---
late entry from 04/30/2022 at 21:40. patient pushed herself in the wheelchair over to the registration desk to let them know that she wanted to leave. I went out to talk with the patient and told her that we had no beds and that she was next to come back. she reports i just cant sit anymore I need to lay down. patient reports i do not want to leave but i have to, I have no choice and I responded to the patient that if you leave this is 100% your choice. patient said okay and left the ER. charge and Dr. De Jesus aware.
== END 2022-04-30 21:40 | disposition left against medical advice (07) ==
PROVIDERS: Emergency Provider Emergency Medicine; PCP Family Medicine
DX: R10.9 Unspecified abdominal pain (principal); Z53.29 Procedure and treatment not carried out because of patient's decision for other reasons
CPT/HCPCS: 99281

== ENCOUNTER 2022-06-18 15:24 | Emergency (ER) | payer MEDICARE, MEDICAID, SELFPAY ==
[2021-06-04 16:30] VITALS: BMI 39.6
[2022-06-18 15:31] VITALS: BP 146/64; PULSE 74; RESP 22; TEMP 37.4; O2SAT 98; BMI 34.5
[2022-06-18 18:38] VITALS: PULSE 86; O2SAT 98
[2022-06-18 18:39] VITALS: BP 166/104; PULSE 86; O2SAT 97
[2022-06-18 18:42] VITALS: BP 156/76; PULSE 79; RESP 16; O2SAT 95
--- NOTE | 2022-06-18 19:20 | PC.NURSE ---
Pt w/ multiple phone calls to department, multiple interactions w/ staff where she was verbally abusive to nursing staff. c/o shortness of breath but able to yell at staff in long sentences. When observed with pt at rest, has easy work of breathing w/o noticeable strider. When yelling at staff demonstrates wheezing. Discussed expectation that she will not yell at or be abusive in any way toward staff. She then said YOU WANT TO GO AGAINST ME??? I told her I did not want to go against her but had an obligation to keep my staff safe. Pt Requested door shut however discussed that if she was having resp distress it would be best for us to be able to see her. She got up and pulled curtain closed in an aggressive manor and slammed door shut. Viet RN witness to interaction. BS noted in all aquino with mild wheezing. RT called for eval and neb. Dr. De Jesus aware.
[2022-06-18 19:32] VITALS: PULSE 76; RESP 14; O2SAT 98
[2022-06-18] MEDS: ALBUTEROL/IPRATROPIUM 3 ML AMPUL INH (19:32)
--- NOTE | 2022-06-18 19:37 | ED_ITS ---
HPI - Allergic Reaction General Chief complaint: Allergic Reaction Stated complaint: allergic reaction Time Seen by Provider: 06/18/22 18:41 Source: patient Mode of arrival: Family Vehicle History of Present Illness HPI narrative: 66-year-old female nonsmoker with history of hypokalemia, asthma, anxiety presents with the chief complaint of allergic reaction yesterday after gardening. She had itchy rash and some wheezing and took benadryl yesterday. She denies any face, tongue, lip or throat swelling. She is had no GI symptoms such as vomiting or diarrhea. She presents today stating that her primary care physician suggested she come in for access to steroids, stating that she has an allergy to prednisone. Related Data Home Medications Medication Instructions Recorded Confirmed sennosides 8.6 mg tablet (senna) 17.2 mg PO BEDTIME PRN Constipation 09/20/18 08/19/21 potassium chloride 20 mEq 10 meq PO DAILY PRN Take w/lasix 10/29/18 08/19/21 tablet,extended release diphenhydramine HCl 25 mg capsule 75 mg PO DAILY PRN Allergy Symptoms 10/26/19 09/27/21 (Benadryl) omeprazole 40 mg capsule,delayed 40 mg PO BID 02/10/20 08/19/21 release lidocaine 5 % topical ointment 1 applic topical TID PRN pain 02/24/20 09/27/21 ketotifen fumarate 0.025 % (0.035 1 drp ophthalmic (eye) BID 03/02/20 09/27/21 %) eye drops (Zaditor) fluticasone propionate 50 1 spray intranasal BID 04/02/20 09/27/21 mcg/actuation nasal spray,suspension ondansetron 8 mg disintegrating 8 mg PO Q8H PRN Nausea 06/29/20 08/19/21 tablet metoprolol succinate 25 mg 25 mg PO BID 01/27/21 08/19/21 tablet,extended release 24 hr valsartan 40 mg tablet 20 mg PO BID 01/27/21 08/19/21 acetaminophen 500 mg capsule 500 mg PO Q6H PRN Pain (Scale 04/11/21 09/27/21 Score 1-3) gabapentin 600 mg tablet 600 mg PO TID 04/11/21 09/27/21 ibuprofen 200 mg tablet 200 mg PO Q6H PRN Pain (Scale 04/11/21 09/27/21 Score 1-3) pramipexole 0.75 mg tablet 0.75 mg PO DAILY 04/11/21 09/27/21 tiotropium bromide 18 mcg capsule 1 cap inhalation DAILY 04/11/21 08/19/21 with inhalation device (Spiriva with HandiHaler) torsemide 20 mg tablet 80 mg PO BID 08/19/21 08/19/21 Previous Rx's Medication Instructions Recorded methocarbamol 750 mg tablet 750 mg PO TID PRN Spasms #90 tabs 09/29/19 epinephrine 0.3 mg/0.3 mL 0.3 mg (0.3 mL) IM ONCE PRN 01/01/20 injection, auto-injector Allergic Reaction #1 ea methylprednisolone 4 mg tablet 4 mg PO DAILY 3 days #3 tabs 06/06/21 montelukast 10 mg tablet See Rx Instructions .Route 07/26/21 .COMPLEX #90 tabs sumatriptan succinate 100 mg tablet See Rx Instructions .Route 07/26/21 .COMPLEX #14 tabs mupirocin 2 % topical ointment 1 applic topical BID #15 grams 10/12/21 hydrocodone 5 mg-acetaminophen 325 1 tab PO Q6H PRN pain #7 tabs 11/23/21 mg tablet potassium chloride 20 mEq 40 meq PO DAILY #20 tabs 11/23/21 tablet,extended release clindamycin HCl 300 mg capsule 300 mg PO QID #28 caps 01/23/22 (Cleocin HCl) hydrocodone 5 mg-acetaminophen 325 1 tab PO Q6H PRN pain #10 tabs 01/23/22 mg tablet quetiapine 25 mg tablet 25 mg PO BEDTIME #40 tabs 04/24/22 Trintellix 20 mg tablet 20 mg PO DAILY 30 days #30 tabs 05/25/22 (vortioxetine) diazepam 5 mg tablet 5 mg PO BID PRN anxiety 30 days 05/25/22 #60 tabs methylprednisolone 4 mg tablets in See Rx Instructions PO .COMPLEX 06/18/22 a dose pack (Medrol (Juliocesar)) #21 ea Allergies Allergy/AdvReac Type Severity Reaction Status Date / Time Iodinated Contrast Media Allergy Severe Difficulty Verified 02/03/22 13:34 Breathing iodine Allergy Severe Difficulty Verified 02/03/22 13:34 Breathing latex Allergy Severe Rash Verified 02/03/22 13:34 morphine [MORPHINE] Allergy Severe Anaphylaxis Verified 02/03/22 13:34 Penicillins [PENICILLINS] Allergy Severe Anaphylaxis Verified 02/03/22 13:34 Sulfa (Sulfonamide Allergy Severe RASH Verified 02/03/22 13:34 Antibiotics) [SULFA (SULFONAMIDE ANTIBIOTICS)] azithromycin Allergy Intermediate Rash Verified 02/03/22 13:34 [From ZITHROMAX Z-JULIOCESAR] cefuroxime [From Ceftin] Allergy Intermediate Rash Verified 02/03/22 13:34 sulfamethoxazole Allergy Intermediate RASH Verified 02/03/22 13:34 [From SEPTRA] trimethoprim [From SEPTRA] Allergy Intermediate RASH Verified 02/03/22 13:34 ciprofloxacin [From Cipro] Allergy Pt does Verified 02/03/22 13:34 not remember reaction Corticosteroids Allergy Swelling Verified 02/03/22 13:34 (Glucocorticoids) of Lip/Tongue/Throat cephalexin [From Keflex] AdvReac Severe Fever, Verified 02/03/22 13:34 Asthma, Tachycardia prednisone AdvReac Severe nausea and Verified 02/03/22 13:34 feels very weak, and axious verapamil AdvReac Intermediate Asthma Verified 02/03/22 13:34 symptoms zonisamide AdvReac Intermediate Asthma Verified 02/03/22 13:34 symptoms Review of Systems Review of Systems Narrative: GENERAL: Denies chills, fatigue, malaise, fever, sweats. HEENT: See HPI RESPIRATORY: See HPI. CARDIOVASCULAR: Denies chest pain, palpitations, orthopnea, edema, GASTROINTESTINAL: Denies nausea, vomiting, abdominal pain, diarrhea, constipation, melena. : Denies dysuria, frequency, incontinence, hematuria, urinary retention. MUSCULOSKELETAL: denies weakness, joint pain, or bony pain SKIN: Denies rash, skin lesions, or other NEUROLOGIC: Denies weakness, headache, numbness, change in speech, confusion, seizures, incoordination. PSYCHIATRIC: See HPI 12 point review of systems is negative except for those stated above Patient History Medical History Anemia Anxiety Asthma Chronic back pain Chronic cough Depression Femur fracture, left Fibromyalgia Fractures GERD (gastroesophageal reflux disease) Hiatal hernia Recurrent sinusitis Venous insufficiency (chronic) (peripheral) Surgical History Anesthesia History of eye surgery (~1973) History of foot surgery History of hysterectomy (~1979) History of shoulder surgery (~2011) History of tonsillectomy (~1975) Hx of bilateral cataract extraction Family History Mother Heart disease Sister Heart disease Social History marital status: number of children: 1 household members: none lives independently: Yes caregiver/support person: Yes (3 afternoons per week) pets and animals: Yes occupational status: disabled Smoking Status: Never smoker alcohol intake: never substance use type: does not use Smoking Status: Never smoker alcohol intake frequency: holidays/special occasions only Substance Use Type: does not use Exam Narrative Exam Narrative: GENERAL: [66] year old patient appears stated age. Well-developed patient, in mild distress. Visibly anxious HEAD: Atraumatic. Normocephalic. EYES: Pupils equal round and reactive. Extraocular motions intact. No scleral icterus. No injection or drainage. ENT: Nose without bleeding, purulent drainage. Throat without erythema, tonsillar hypertrophy or exudate. Airway patent. No facial swelling, tongue, lip, throat swelling. Guarding her airway and controlling secretions NECK: Trachea midline. Non tender CARDIOVASCULAR: Regular rate and rhythm without murmurs, gallops, or rubs. RESPIRATORY: Clear to auscultation. Breath sounds equal bilaterally. No wheezes, rales, or rhonchi. GASTROINTESTINAL: Abdomen soft, non-tender, nondistended. EXTREMITIES: No edema or joint tenderness. BACK: Nontender without deformity or crepitance. No flank tenderness. NEURO: AOx3. SKIN: No rash or erythema of visible areas Initial Vital Signs Initial Vital Signs: Vital Signs Temperature 99.3 F 06/18/22 15:31 Pulse Rate 74 06/18/22 15:31 Respiratory Rate 22 06/18/22 15:31 Blood Pressure 146/64 H 06/18/22 15:31 Pulse Oximetry 98 06/18/22 15:31 Oxygen Delivery Method Room Air 06/18/22 15:31 Course Orders Ordered: Discontinued Medications Albuterol/Ipratropium (Albuterol/Ipratropium 3 Ml Ampul) 3 ml INH NOW ONE Stop: 06/18/22 19:21 Last Admin: 06/18/22 19:32 Dose: 3 ml Documented By: ELVIRA Diphenhydramine HCl (Diphenhydramine 50 Mg/Ml Vial) 25 mg IV NOW ONE Stop: 06/18/22 19:44 Last Admin: 06/18/22 20:02 Dose: 25 mg Documented By: MARIAM Famotidine (Famotidine 20 Mg/2 Ml Vial) 20 mg IV NOW ZHANG Last Admin: 06/18/22 20:02 Dose: 20 mg Documented By: RL Methylprednisolone (Methylprednisolone 125 Mg/2 Ml Vial) 125 mg IV NOW ONE Stop: 06/18/22 19:44 Last Admin: 06/18/22 20:02 Dose: 125 mg Documented By: MARIAM Vital Signs Vital signs: Vital Signs - 8 hr 06/18/22 21:17 Pulse Rate 77 Respiratory Rate 18 Blood Pressure 134/63 Pulse Oximetry 100 Oxygen Delivery Method Room Air MDM - Allergic Reaction MDM Narrative Medical decision making narrative: [66] year old patient presents with concern about allergic reaction after exposure in her garden yesterday Multiple etiologies for patient's symptoms considered including, but not limited to: [Allergic reaction versus anaphylaxis versus other] Prior Charts reviewed in our EMR Primary Historian: patient Patient's symptoms improved over duration of stay with above-stated therapies. No signs of anaphylaxis, very minimal if any symptoms while here. After above-stated therapies she does report she feels much better and is no longer anxious. Prescription sent to her pharmacy, questions answered to her apparent satisfaction Findings and discharge diagnosis discussed with patient/family followed by verbalization of understanding Return precautions discussed with patient/family whom verbalize understanding of diagnosis and plan Discharge Plan Departure Patient Disposition: Home Clinical Impression: Allergic reaction Instructions: DI for General Allergic Reactions Activity Restrictions/Additional Instructions: *You have been diagnosed with [allergic reaction] *What to do: *Please continue to take your regular medications as directed. [x ] New medication prescriptions sent to your pharmacy: [[facility] ] [ ] New medication written as a paper prescription [ ] No new medications given *Please consider the routine use of over the counter antihistamines over the next few days 1. H1 blockers: Benadryl (Diphenhydramine), Zyrtec (Cetirizine), Aleksandra (Fexofenadine) or Claritin (Loratadine) along with, 2. H2 blockers: Famotidine or Cimetidine *If you can please avoid what triggered your reaction today *Please follow up with your primary care provider in 2-3 days, call for an appointment. Let them know you were seen in the Emergency Department and that we ask that you be seen in follow up. We will electronically transmit a record of today's note if your PCP is in our system *If you do not have a primary care provider please contact the [facility] Resource line at [phone]. They will ask some questions about your medical history and help get you set up with a doctor in the community. *Return to Emergency Department if you should have any new, worsening or concerning symptoms, such as swelling of tongue, throat, trouble breathing, or other concerning symptoms Prescriptions: New methylprednisolone [Medrol (Juliocesar)] 4 mg tablets,dose pack See Rx Instructions .ROUTE .COMPLEX Qty: 21 0RF Rx Instructions: orally per package directions No Action Spiriva with HandiHaler 18 mcg capsule, w/inhalation device 1 cap inhalation DAILY Rx Instructions: puncture 1 cap using device; one dose = 2 inhalations pramipexole 0.75 mg tablet 0.75 mg PO DAILY ibuprofen 200 mg tablet 200 mg PO Q6H PRN (Reason: Pain (Scale Score 1-3)) gabapentin 600 mg tablet 600 mg PO TID Patient Comments: 0700, 1400, 2100 acetaminophen 500 mg capsule 500 mg PO Q6H PRN (Reason: Pain (Scale Score 1-3)) valsartan 40 mg tablet 20 mg PO BID metoprolol succinate 25 mg tablet extended release 24 hr 25 mg PO BID torsemide 20 mg tablet 80 mg PO BID Patient Comments: TAKE 2 TABLETS BY MOUTH IN THE MORNING AND 1 TABLET AT NIGHT potassium chloride 20 mEq tablet extended release 10 meq PO DAILY PRN (Reason: Take w/lasix) Rx Instructions: Take w/lasix prn fluticasone propionate 50 mcg/actuation spray,suspension 1 spray intranasal BID Rx Instructions: administer into each nostril methocarbamol 750 mg tablet 750 mg PO TID PRN (Reason: Spasms) Qty: 90 3RF Rx Instructions: PRN epinephrine 0.3 mg/0.3 mL auto-injector 0.3 mg IM ONCE PRN (Reason: Allergic Reaction) Qty: 1 11RF sumatriptan succinate 100 mg tablet See Rx Instructions .ROUTE .COMPLEX Qty: 14 0RF Dose Instruction: TAKE 1 TABLET BY MOUTH ONCE AT ONSET OF MIGRAINE HEADACHE. MAY REPEAT IN 2 HOURS IF NO RELIEF. MAX OF 2 TABLETS PER DAY. Rx Instructions: TAKE 1 TABLET BY MOUTH ONCE AT ONSET OF MIGRAINE HEADACHE. MAY REPEAT IN 2 HOURS IF NO RELIEF. MAX OF 2 TABLETS PER DAY. montelukast 10 mg tablet See Rx Instructions .ROUTE .COMPLEX Qty: 90 0RF Dose Instruction: TAKE 1 TABLET BY MOUTH AT BEDTIME NEEDED FOR ALLERGY SYMPTOMS Rx Instructions: TAKE 1 TABLET BY MOUTH AT BEDTIME NEEDED FOR ALLERGY SYMPTOMS quetiapine 25 mg tablet 25 mg PO BEDTIME MDD 50MG Qty: 40 2RF Rx Instructions: OK to repeat dose if not sleeping within 1 hour Trintellix 20 mg tablet 20 mg PO DAILY 30 Days Qty: 30 2RF diazepam 5 mg tablet 5 mg PO BID PRN (Reason: anxiety) 30 Days Qty: 60 0RF lidocaine 5 % Ointment 1 applic TOPICAL TID PRN (Reason: pain) ketotifen fumarate [Zaditor] 0.025 % (0.035 %) Drops 1 drp OPHTHALMIC (EYE) BID potassium chloride 20 mEq tablet extended release 40 meq PO DAILY Qty: 20 0RF hydrocodone-acetaminophen 5-325 mg tablet 1 tab PO Q6H PRN (Reason: pain) Qty: 7 0RF sennosides [senna] 8.6 mg Tablet 17.2 mg PO BEDTIME PRN (Reason: Constipation) diphenhydramine HCl [Benadryl] 25 mg Capsule 75 mg PO DAILY PRN (Reason: Allergy Symptoms) omeprazole 40 mg Capsule,Delayed Release(Dr/Ec) 40 mg PO BID ondansetron 8 mg Tablet,Disintegrating 8 mg PO Q8H PRN (Reason: Nausea) methylprednisolone 4 mg tablet 4 mg PO DAILY 3 Days Qty: 3 0RF mupirocin 2 % ointment 1 applic topical BID Qty: 15 0RF clindamycin HCl [Cleocin HCl] 300 mg capsule 300 mg PO QID Qty: 28 0RF hydrocodone-acetaminophen 5-325 mg tablet 1 tab PO Q6H PRN (Reason: pain) Qty: 10 0RF Referrals: Maxim Parks MD [Primary Care Provider] - Stand Alone Forms: Patient Portal/API
--- NOTE | 2022-06-18 19:37 | PC.NURSE ---
Per RT reports patient's lung sounds and clear pre and post treatment.
[2022-06-18] MEDS: methylPREDNISolone 125 MG/2 ML VIAL IV (20:02)
[2022-06-18] MEDS: FAMOTIDINE 20 MG/2 ML VIAL IV (20:02)
[2022-06-18] MEDS: diphenhydrAMINE 50 MG/ML VIAL 25 MG IV (20:02)
[2022-06-18 21:17] VITALS: BP 134/63; PULSE 77; RESP 18; O2SAT 100
== END 2022-06-18 21:20 | disposition home or self-care (01) ==
PROVIDERS: Emergency Provider Emergency Medicine; PCP Family Medicine
DX: T78.40XA Allergy, unspecified, initial encounter (principal)
CPT/HCPCS: 94640; 96374; 96375; 99284; J1200; J2930

== ENCOUNTER → 2022-06-23 12:20 | Outpatient (CLI) | payer MEDICARE, MEDICAID, SELFPAY ==
[2021-06-04 16:30] VITALS: BMI 39.6
--- NOTE | 2022-06-23 | DI.MRI.S_ITS ---
PROCEDURE: MR ABDOMEN WO/W CON INDICATIONS: RENAL CYST TECHNIQUE: Coronal HASTE through abdomen and pelvis; axial 2D FLASH in- and [id number] (with and without fat saturation), and breath-hold T2 FSE from the hepatic dome to the bottom of the kidneys. Coronal HASTE MR urogram of kidneys and bladder. Dynamic coronal VIBE during IV gadolinium administration; postgadolinium axial VIBE or 2D FLASH with fat saturation from the hepatic dome through the kidneys. COMPARISON: [facility], CT, CT ANGIO CHEST PE PROTOCOL, 03/02/2021, 14:17. [facility], CT, CT ABDOMEN PELVIS WO CON, 07/14/2020, 10:51. [facility], CT, CT CHEST ABD PEL W CON, 07/18/2021, 2:33. [facility], CT, CT ABDOMEN PELVIS W CON, 02/14/2022, 23:37. FINDINGS: Image quality: Good Lower chest: No pleural effusions. Lower lungs are not well evaluated on this study. Small hiatal hernia. Solid organs: The liver is unremarkable. Gallbladder is unremarkable. No pathologic dilation of the biliary tree or pancreatic duct. No splenomegaly. No adrenal nodules. No hydronephrosis. Solid cystic enhancing right anterior renal mass measures 2.6 x 2.3 cm on 1 axial slice (). In September of 2021, this measured 2.5 x 2.1 cm, not significantly changed. In July of 2021, this was 2.5 x 2.0 cm. Craniocaudal dimension is 2.6 cm (17/49), also stable. The right renal vein is patent. This is in close proximity to the anterior pararenal fascia. The left kidney is unremarkable. Vessels and lymph nodes: No aneurysmal dilation or pathologic adenopathy by size criteria. Bowel and peritoneum: No bowel obstruction or pathologic ascites. Body wall: Right spigelian hernia repair material. Bones: No acute or suspicious osseous finding. IMPRESSION: Stable solid cystic right renal mass dating back to July of 2021. Consider continued surveillance if intervention is not pursued. Dictated by: Gamaliel Bansal M.D. on 06/23/2022 at 15:55 Approved by: Gamaliel Bansal M.D. on 06/23/2022 at 16:04
== END ==
PROVIDERS: PCP Family Medicine; Referring Provider Urology; Visit Provider Urology
DX: N28.89 Other specified disorders of kidney and ureter (principal)
CPT/HCPCS: 74183

== ENCOUNTER 2022-06-23 15:40 | Emergency (ER) | payer MEDICARE, MEDICAID, SELFPAY ==
[2021-06-04 16:30] VITALS: BMI 39.6
[2022-06-23] VITALS (10 sets, daily range): BP systolic 117–139; BP diastolic 58–76; PULSE 58–75; RESP 17–19; TEMP 36.6; O2SAT 92–99; BMI 33.6
--- NOTE | 2022-06-23 16:00 | DI.RAD.S_ITS ---
PROCEDURE: XR CHEST 1V INDICATIONS: chest pain TECHNIQUE: One view of the chest was acquired. COMPARISON: [facility], CR, XR CHEST 2V, 10/11/2021, 22:33. [facility], CR, XR CHEST 1V, 09/07/2021, 17:05. FINDINGS: Surgical changes and devices: None. Lungs and pleura: Lungs are clear. No pleural effusions or pneumothorax. Mediastinum: Mediastinal contours appear normal. Heart size is normal. Bones and chest wall: No suspicious bony lesions. Overlying soft tissues appear unremarkable. IMPRESSION: Normal for age, source of current chest pain symptoms is not seen. Dictated by: Gonzalez Dsouza M.D. on 06/23/2022 at 16:25 Approved by: Gonzalez Dsouza M.D. on 06/23/2022 at 16:26
[2022-06-23 16:18] LABS: Prothrombin Time 11.5 SECONDS (10.1-12.7)
[2022-06-23 16:21] LABS: PTT Partial Thromboplastin Tim 29 SECONDS (26-36)
[2022-06-23 16:23] LABS: Alanine Aminotransferase 29 IU/L (<35); Albumin 4.2 g/dL (3.5-5.0); Albumin Globulin Ratio 1.3 (1.0-2.8); Alkaline Phosphatase 135 U/L (38-126); Aspartate Aminotransferase 28 IU/L (14-36); BUN Creatinine Ratio 31.4 (6-22); Bilirubin Total 0.4 mg/dL (0.2-1.3); Blood Urea Nitrogen 48 mg/dL (7-17); Calcium 8.8 mg/dL (8.4-10.2); Carbon Dioxide 29 mmol/L (22-32); Chloride 91 mmol/L (98-107); Creatine Kinase 49 U/L (30-135); Estimated Glomerular Filt Rate 37 mL/min (>60); Globulin 3.3 g/dL (1.7-4.1); Glucose 95 mg/dL (80-110); HEMOLYSIS < 15 (0-50); Lipase 143 U/L (23-300); Magnesium 1.9 mg/dL (1.6-2.3); Potassium 3.5 mmol/L (3.4-5.1); Sodium 129 mmol/L (137-145); Total Protein 7.5 g/dL (6.3-8.2)
[2022-06-23 16:24] LABS: Add Manual Diff / Slide Review NO; Basophils Absolute Auto 100 /uL (0-100); Basophils Percent Auto 0.8 % (0-2); Eosinophils Absolute Auto 400 /uL (0-450); Hematocrit 35.8 % (36-46); Hemoglobin 12.3 g/dL (12.0-16.0); Lymphocytes Absolute Auto 3000 /uL (1100-4500); Lymphocytes Percent Auto 28.4 % (25-40); Mean Corpuscular HGB Conc 34.4 % (30-36); Mean Corpuscular Hemoglobin 28.4 PG (26-34); Mean Corpuscular Volume 82.7 fL (80-100); Monocytes Absolute Auto 700 /uL (0-900); Neutrophils Absolute Auto 6300 /uL (1500-7000); Neutrophils Percent Auto 59.8 % (50-75); Platelet Count 314 X10^3/uL (150-400); Red Blood Cell Count 4.34 X10^6/uL (4.0-5.2); Red Cell Distribution Width 16.3 % (11.6-14.8); White Blood Cell Count 10.6 X10^3/uL (4.5-11.0)
[2022-06-23 16:28] LABS: COVID19 -Nasal RAPID Negative (Negative)
[2022-06-23 16:34] LABS: NT-proBNP (BNP-Adult 18+) 53 pg/mL (<125); Troponin I < 0.012 ng/mL (0.01-0.034)
--- NOTE | 2022-06-23 18:46 | ED.SOB ---
HPI - SOB/Dyspnea General Chief Complaint: Weakness Stated Complaint: Vertigo, Chest pains, Heart racing Time Seen by Provider: 06/23/22 18:00 Source: patient Mode of arrival: Ambulatory Limitations: no limitations History of Present Illness HPI Narrative: Patient 66-year-old female history of asthma anxiety frequent allergic reactions presenting today with increasing shortness of breath with exertion. She reports that she usually walks a miles home mi and half however over the last couple of weeks she reports only being able to walk a couple of blocks before getting short of breath and needing to stop. She denies any fever chills or cough. She just finished a course of methylprednisolone yesterday she has multiple prescriptions. She thought maybe her congestive heart failure was acting up. Yesterday she had quite a bad asthma attack required multiple nebulizers but is clear today. She also reports that she has difficulty walking just kind of walks off in his maybe unsteady. That has been going on for a few weeks as well. She is here today because she was getting an outpatient abdominal MRI renal cyst and she was here all day and decided to come and get checked out. Related Data Home Medications Medication Instructions Recorded Confirmed sennosides 8.6 mg tablet (senna) 17.2 mg PO BEDTIME PRN Constipation 09/20/18 08/19/21 potassium chloride 20 mEq 10 meq PO DAILY PRN Take w/lasix 10/29/18 08/19/21 tablet,extended release diphenhydramine HCl 25 mg capsule 75 mg PO DAILY PRN Allergy Symptoms 10/26/19 09/27/21 (Benadryl) omeprazole 40 mg capsule,delayed 40 mg PO BID 02/10/20 08/19/21 release lidocaine 5 % topical ointment 1 applic topical TID PRN pain 02/24/20 09/27/21 ketotifen fumarate 0.025 % (0.035 1 drp ophthalmic (eye) BID 03/02/20 09/27/21 %) eye drops (Zaditor) fluticasone propionate 50 1 spray intranasal BID 04/02/20 09/27/21 mcg/actuation nasal spray,suspension ondansetron 8 mg disintegrating 8 mg PO Q8H PRN Nausea 06/29/20 08/19/21 tablet metoprolol succinate 25 mg 25 mg PO BID 01/27/21 08/19/21 tablet,extended release 24 hr valsartan 40 mg tablet 20 mg PO BID 01/27/21 08/19/21 acetaminophen 500 mg capsule 500 mg PO Q6H PRN Pain (Scale 04/11/21 09/27/21 Score 1-3) gabapentin 600 mg tablet 600 mg PO TID 04/11/21 09/27/21 ibuprofen 200 mg tablet 200 mg PO Q6H PRN Pain (Scale 04/11/21 09/27/21 Score 1-3) pramipexole 0.75 mg tablet 0.75 mg PO DAILY 04/11/21 09/27/21 tiotropium bromide 18 mcg capsule 1 cap inhalation DAILY 04/11/21 08/19/21 with inhalation device (Spiriva with HandiHaler) torsemide 20 mg tablet 80 mg PO BID 08/19/21 08/19/21 Previous Rx's Medication Instructions Recorded methocarbamol 750 mg tablet 750 mg PO TID PRN Spasms #90 tabs 09/29/19 epinephrine 0.3 mg/0.3 mL 0.3 mg (0.3 mL) IM ONCE PRN 01/01/20 injection, auto-injector Allergic Reaction #1 ea methylprednisolone 4 mg tablet 4 mg PO DAILY 3 days #3 tabs 06/06/21 montelukast 10 mg tablet See Rx Instructions .Route 07/26/21 .COMPLEX #90 tabs sumatriptan succinate 100 mg tablet See Rx Instructions .Route 07/26/21 .COMPLEX #14 tabs mupirocin 2 % topical ointment 1 applic topical BID #15 grams 10/12/21 hydrocodone 5 mg-acetaminophen 325 1 tab PO Q6H PRN pain #7 tabs 11/23/21 mg tablet potassium chloride 20 mEq 40 meq PO DAILY #20 tabs 11/23/21 tablet,extended release clindamycin HCl 300 mg capsule 300 mg PO QID #28 caps 01/23/22 (Cleocin HCl) hydrocodone 5 mg-acetaminophen 325 1 tab PO Q6H PRN pain #10 tabs 01/23/22 mg tablet quetiapine 25 mg tablet 25 mg PO BEDTIME #40 tabs 04/24/22 Trintellix 20 mg tablet 20 mg PO DAILY 30 days #30 tabs 05/25/22 (vortioxetine) diazepam 5 mg tablet 5 mg PO BID PRN anxiety 30 days 05/25/22 #60 tabs methylprednisolone 4 mg tablets in See Rx Instructions PO .COMPLEX 06/18/22 a dose pack (Medrol (Juliocesar)) #21 ea Allergies Allergy/AdvReac Type Severity Reaction Status Date / Time Iodinated Contrast Media Allergy Severe Difficulty Verified 06/23/22 16:00 Breathing iodine Allergy Severe Difficulty Verified 06/23/22 16:00 Breathing latex Allergy Severe Rash Verified 06/23/22 16:00 morphine [MORPHINE] Allergy Severe Anaphylaxis Verified 06/23/22 16:00 Penicillins [PENICILLINS] Allergy Severe Anaphylaxis Verified 06/23/22 16:00 Sulfa (Sulfonamide Allergy Severe RASH Verified 06/23/22 16:00 Antibiotics) [SULFA (SULFONAMIDE ANTIBIOTICS)] azithromycin Allergy Intermediate Rash Verified 06/23/22 16:00 [From ZITHROMAX Z-JULIOCESAR] cefuroxime [From Ceftin] Allergy Intermediate Rash Verified 06/23/22 16:00 sulfamethoxazole Allergy Intermediate RASH Verified 06/23/22 16:00 [From SEPTRA] trimethoprim [From SEPTRA] Allergy Intermediate RASH Verified 06/23/22 16:00 ciprofloxacin [From Cipro] Allergy Pt does Verified 06/23/22 16:00 not remember reaction Corticosteroids Allergy Swelling Verified 06/23/22 16:00 (Glucocorticoids) of Lip/Tongue/Throat cephalexin [From Keflex] AdvReac Severe Fever, Verified 06/23/22 16:00 Asthma, Tachycardia prednisone AdvReac Severe nausea and Verified 06/23/22 16:00 feels very weak, and axious verapamil AdvReac Intermediate Asthma Verified 06/23/22 16:00 symptoms zonisamide AdvReac Intermediate Asthma Verified 06/23/22 16:00 symptoms Review of Systems Review of Systems ROS Unobtainable: All systems reviewed & are unremarkable except as noted in HPI and below Patient History Medical History Anemia Anxiety Asthma Chronic back pain Chronic cough Depression Femur fracture, left Fibromyalgia Fractures GERD (gastroesophageal reflux disease) Hiatal hernia Recurrent sinusitis Venous insufficiency (chronic) (peripheral) Surgical History Anesthesia History of eye surgery (~1973) History of foot surgery History of hysterectomy (~1979) History of shoulder surgery (~2011) History of tonsillectomy (~1975) Hx of bilateral cataract extraction Family History Mother Heart disease Sister Heart disease Social History marital status: number of children: 1 household members: none lives independently: Yes caregiver/support person: Yes (3 afternoons per week) pets and animals: Yes occupational status: disabled Smoking Status: Never smoker alcohol intake: never substance use type: does not use Smoking Status: Never smoker alcohol intake frequency: holidays/special occasions only Substance Use Type: does not use Exam Initial Vital Signs Initial Vital Signs: Vital Signs Temperature 98 F 06/23/22 15:57 Pulse Rate 75 06/23/22 15:57 Respiratory Rate 18 06/23/22 15:57 Blood Pressure 139/58 L 06/23/22 15:57 Pulse Oximetry 95 06/23/22 15:57 Oxygen Delivery Method Room Air 06/23/22 15:57 GENERAL: Alert generally well-appearing 66-year-old female HEENT: Head atraumatic,EOMI, pupils reactive, face symmetric, [moist] mucous membranes CARDIOVASCULAR: Regular rate and rhythm without murmurs, rubs or gallops. RESPIRATORY: Breath sounds equal bilaterally, no wheezes rales or rhonchi. ABDOMEN: Soft, nontender. Normoactive bowel sounds all 4 quadrants. No guarding or rebound. EXTREMITIES: Normal range of motion, no clubbing or edema. Left leg is mildly more swollen than the right no significant calf pain or erythema. Distal pulse intact. Neurovascularly intact NEUROLOGICAL: Alert and oriented x4.Normal gait and speech. SKIN: Warm, dry, no laceration, no petechiae, no rashes or lesions. Course Orders Ordered: Discontinued Medications Aspirin (Aspirin 81 Mg Chew Tab) 324 mg PO NOW ONE Stop: 06/23/22 16:01 Last Admin: 06/23/22 19:18 Dose: Not Given Documented By: REG Vital Signs Vital signs: Vital Signs - 8 hr 06/23/22 21:24 Pulse Rate 73 Respiratory Rate 19 Blood Pressure 128/76 Pulse Oximetry 99 Oxygen Delivery Method Room Air MDM - SOB/Dyspnea Lab Data 06/23/22 15:55 06/23/22 15:55 Labs: Lab Results 06/23/22 06/23/22 06/23/22 Range/Units 15:55 15:55 15:55 WBC 10.6 (4.5-11.0) X10^3/uL RBC 4.34 (4.0-5.2) X10^6/uL Hgb 12.3 (12.0-16.0) g/dL Hct 35.8 L (36-46) % MCV 82.7 (80-100) fL MCH 28.4 (26-34) PG MCHC 34.4 (30-36) % RDW 16.3 H (11.6-14.8) % Plt Count 314 (150-400) X10^3/uL Neut % (Auto) 59.8 (50-75) % Lymph % (Auto) 28.4 (25-40) % [place] % (Auto) 7.0 (3-14) % Eos % (Auto) 4.0 (2-4) % Baso % (Auto) 0.8 (0-2) % Neut # (Auto) 6300 (5523-9758) /uL Lymph # (Auto) 3000 (5202-7354) /uL [place] # (Auto) 700 (0-900) /uL Eos # (Auto) 400 (0-450) /uL Baso # (Auto) 100 (0-100) /uL PT 11.5 (10.1-12.7) SECONDS INR 1.0 (0.9-1.3) APTT 29 (26-36) SECONDS Sodium (137-145) mmol/L Potassium (3.4-5.1) mmol/L Chloride (98-107) mmol/L Carbon Dioxide (22-32) mmol/L BUN (7-17) mg/dL Creatinine (0.52-1.04) mg/dL Estimated GFR (>60) mL/min BUN/Creatinine Ratio (6-22) Glucose (80-110) mg/dL Calcium (8.4-10.2) mg/dL Magnesium (1.6-2.3) mg/dL Total Bilirubin (0.2-1.3) mg/dL AST (14-36) IU/L ALT (<35) IU/L Alkaline Phosphatase (38-126) U/L Total Creatine Kinase (30-135) U/L CK-MB (CK-2) CK-MB (CK-2) Rel Index Troponin I (0.01-0.034) ng/mL NT-Pro-B Natriuret Pep (<125) pg/mL Total Protein (6.3-8.2) g/dL Albumin (3.5-5.0) g/dL Globulin (1.7-4.1) g/dL Albumin/Globulin Ratio (1.0-2.8) Lipase (23-300) U/L SARS-CoV-2 (PCR) Negative (Negative) 06/23/22 Range/Units 15:55 WBC (4.5-11.0) X10^3/uL RBC (4.0-5.2) X10^6/uL Hgb (12.0-16.0) g/dL Hct (36-46) % MCV (80-100) fL MCH (26-34) PG MCHC (30-36) % RDW (11.6-14.8) % Plt Count (150-400) X10^3/uL Neut % (Auto) (50-75) % Lymph % (Auto) (25-40) % [place] % (Auto) (3-14) % Eos % (Auto) (2-4) % Baso % (Auto) (0-2) % Neut # (Auto) (7248-8690) /uL Lymph # (Auto) (7565-8603) /uL [place] # (Auto) (0-900) /uL Eos # (Auto) (0-450) /uL Baso # (Auto) (0-100) /uL PT (10.1-12.7) SECONDS INR (0.9-1.3) APTT (26-36) SECONDS Sodium 129 L (137-145) mmol/L Potassium 3.5 (3.4-5.1) mmol/L Chloride 91 L (98-107) mmol/L Carbon Dioxide 29 (22-32) mmol/L BUN 48 H (7-17) mg/dL Creatinine 1.53 H (0.52-1.04) mg/dL Estimated GFR 37 L (>60) mL/min BUN/Creatinine Ratio 31.4 H (6-22) Glucose 95 (80-110) mg/dL Calcium 8.8 (8.4-10.2) mg/dL Magnesium 1.9 (1.6-2.3) mg/dL Total Bilirubin 0.4 (0.2-1.3) mg/dL AST 28 (14-36) IU/L ALT 29 (<35) IU/L Alkaline Phosphatase 135 H (38-126) U/L Total Creatine Kinase 49 (30-135) U/L CK-MB (CK-2) TNP CK-MB (CK-2) Rel Index TNP Troponin I < 0.012 (0.01-0.034) ng/mL NT-Pro-B Natriuret Pep 53 (<125) pg/mL Total Protein 7.5 (6.3-8.2) g/dL Albumin 4.2 (3.5-5.0) g/dL Globulin 3.3 (1.7-4.1) g/dL Albumin/Globulin Ratio 1.3 (1.0-2.8) Lipase 143 (23-300) U/L SARS-CoV-2 (PCR) (Negative) Urine Dip Bedside Urine Glucose Negative Bedside Urine Bilirubin - Negative Bedside Urine Ketone - Negative Urine Specific [place] 1.01 Bedside Urine Occult Blood - Negative Bedside Urine pH 6 Bedside Urine Protein - Negative Bedside Urine Urobilinogen - Negative Bedside Urine Nitrite - Negative Bedside Urine Leukocytes - Negative Esterase Imaging Data Chest x-ray: Radiologist's Impression: PROCEDURE:? XR CHEST 1V ? INDICATIONS:? chest pain ? TECHNIQUE:? One view of the chest was acquired.? ? COMPARISON:? [facility], , XR CHEST 2V, 10/11/2021, 22:33.? [facility], , XR CHEST 1V, 09/07/2021, 17:05. ? FINDINGS:? ? Surgical changes and devices:? None.? ? Lungs and pleura:? Lungs are clear.? No pleural effusions or pneumothorax.? ? Mediastinum:? Mediastinal contours appear normal.? Heart size is normal.? ? Bones and chest wall:? No suspicious bony lesions.? Overlying soft tissues appear unremarkable.? ? IMPRESSION:? Normal for age, source of current chest pain symptoms is not seen. ? ? Dictated by: Gonzalez Dsouza M.D. on 06/23/2022 at 16:25 ? ? Approved by: Gonzalez Dsouza M.D. on 06/23/2022 at 16:26 ? CT scan - head: Radiologist's Impression: PROCEDURE:? CT HEAD/BRAIN WO CON ? INDICATIONS:? weakness ? TECHNIQUE:? Noncontrast 4.5 mm thick angled axial sections acquired from the foramen magnum to the vertex, with coronal and sagittal reformats.? For radiation dose reduction, the following was used:? automated exposure control, adjustment of mA and/or kV according to patient size.? ? COMPARISON:? [facility], CT, CT HEAD/BRAIN WO CON, 02/22/2021, 15:04. ? FINDINGS:? Image quality:? Excellent.? ? CSF spaces:? Basal cisterns are patent.? No extra-axial fluid collections.? The ventricles are symmetric in size and shape.? ? Brain:? No intracranial bleeds or masses.? There is cerebral volume loss for age, with resultant ventricular and sulcal prominence.? There are periventricular and deep white matter chronic small vessel ischemic changes.? There is intracranial internal carotid artery atherosclerosis.? ? Skull and face:? Calvarium and visualized facial bones appear intact, without suspicious lesions.? Incidental note is made of hyperostosis frontalis. This is not considered to be pathologic in a woman of this age. ? Sinuses:? Visualized sinuses and mastoids are clear.? ? ? IMPRESSION:? Noncontrast head CT within normal limits for age.? ? If there is strong clinical suspicion for an acute stroke, please consider a brain MRI for further evaluation, as it is more sensitive (assuming that there is no contraindication to MRI). ? ? Dictated by: Iván Caceres M.D. on 06/23/2022 at 18:16 ? ? Approved by: Iván Caceres M.D. on 06/23/2022 at 18:17 ? US - DVT: Radiologist's Impression: PROCEDURE:? US PERIPH VENOUS LOW EXTREM LT ? INDICATIONS:? dvt r/o ? TECHNIQUE:? Real-time imaging, as well as color and pulse Doppler interrogation, were performed of the lower extremity deep veins from the inguinal ligament to the popliteal fossa.? ? COMPARISON:? None. ? FINDINGS:? The common femoral, femoral and popliteal veins are normally compressible, and free of intraluminal thrombus.? Color and pulse Doppler demonstrate normal phasic intraluminal flow.? There is normal augmentation response to distal compression maneuver. ? ? There is a suspected joint effusion in the left knee. ? IMPRESSION:? ? 1. No evidence of deep venous thrombosis in the left lower extremity. ? ? Dictated by: Abimael Lyon M.D. on 06/23/2022 at 20:59 ? ? ECG Data Interpretation: Sinus rhythm rate he VA interval 140 QRS [address] changes similar to previous EKGs MDM Narrative Medical decision making narrative: Patient is a 66-year-old female history of asthma anxiety presenting today with Sunday of symptoms. She reports being unsteady on her feet and having increasing shortness of breath with exertion. Sounds as though she put herself on methylprednisolone Dosepak and finished it yesterday and then had significant asthma exacerbation yesterday. Today she is absolutely no wheezing lungs are clear x-ray is negative blood work is overall reassuring. She was concerned about possible congestive heart failure however her BNP is under 100 she does not have any crackles or wheezing in her lungs. No appreciable pitting edema in her lower extremities. Although the left leg is mildly more swollen than the right rules out for DVT. Low suspicion for DVT and pulmonary embolism. Head CT is negative she has no significant focal deficits. The bone work shows mild sodium of 129, creatinine is 1.53 slightly increased from previous at 1.1. Potassium is 3.5. She is a negative troponin. At this time I do not think that she needs to retake her methylprednisolone she is having no signs of an acute asthma exacerbation. No evidence evidence of congestive heart failure pneumonia other causes of shortness of breath. Acute coronary syndrome was considered EKG does not show any changes and a negative troponin. At this time reasonable to discharge home. Discharge Plan Departure Patient Disposition: Home Clinical Impression: Asthma, Acute hyponatremia Instructions: Asthma -- Adult Activity Restrictions/Additional Instructions: *You have been diagnosed with asthma, low sodium *What to do: At this time please have your electrolytes and her sodium rechecked next week by her primary care provider. There is no evidence of congestive heart failure or significant asthma exacerbation. I do not think that you need to start a methylprednisolone pack, in fact I would hold off. *Continue to take medications as directed Use albuterol inhaler only as needed *Follow up with your primary care provider in 2-3 days or call [phone] *Return to ER if you should have increasing chest pain shortness of breath fever or any new, worsening or concerning symptoms Prescriptions: No Action Spiriva with HandiHaler 18 mcg capsule, w/inhalation device 1 cap inhalation DAILY Rx Instructions: puncture 1 cap using device; one dose = 2 inhalations pramipexole 0.75 mg tablet 0.75 mg PO DAILY ibuprofen 200 mg tablet 200 mg PO Q6H PRN (Reason: Pain (Scale Score 1-3)) gabapentin 600 mg tablet 600 mg PO TID Patient Comments: 0700, 1400, 2100 acetaminophen 500 mg capsule 500 mg PO Q6H PRN (Reason: Pain (Scale Score 1-3)) valsartan 40 mg tablet 20 mg PO BID metoprolol succinate 25 mg tablet extended release 24 hr 25 mg PO BID torsemide 20 mg tablet 80 mg PO BID Patient Comments: TAKE 2 TABLETS BY MOUTH IN THE MORNING AND 1 TABLET AT NIGHT potassium chloride 20 mEq tablet extended release 10 meq PO DAILY PRN (Reason: Take w/lasix) Rx Instructions: Take w/lasix prn fluticasone propionate 50 mcg/actuation spray,suspension 1 spray intranasal BID Rx Instructions: administer into each nostril methocarbamol 750 mg tablet 750 mg PO TID PRN (Reason: Spasms) Qty: 90 3RF Rx Instructions: PRN epinephrine 0.3 mg/0.3 mL auto-injector 0.3 mg IM ONCE PRN (Reason: Allergic Reaction) Qty: 1 11RF sumatriptan succinate 100 mg tablet See Rx Instructions .ROUTE .COMPLEX Qty: 14 0RF Dose Instruction: TAKE 1 TABLET BY MOUTH ONCE AT ONSET OF MIGRAINE HEADACHE. MAY REPEAT IN 2 HOURS IF NO RELIEF. MAX OF 2 TABLETS PER DAY. Rx Instructions: TAKE 1 TABLET BY MOUTH ONCE AT ONSET OF MIGRAINE HEADACHE. MAY REPEAT IN 2 HOURS IF NO RELIEF. MAX OF 2 TABLETS PER DAY. montelukast 10 mg tablet See Rx Instructions .ROUTE .COMPLEX Qty: 90 0RF Dose Instruction: TAKE 1 TABLET BY MOUTH AT BEDTIME NEEDED FOR ALLERGY SYMPTOMS Rx Instructions: TAKE 1 TABLET BY MOUTH AT BEDTIME NEEDED FOR ALLERGY SYMPTOMS quetiapine 25 mg tablet 25 mg PO BEDTIME MDD 50MG Qty: 40 2RF Rx Instructions: OK to repeat dose if not sleeping within 1 hour Trintellix 20 mg tablet 20 mg PO DAILY 30 Days Qty: 30 2RF diazepam 5 mg tablet 5 mg PO BID PRN (Reason: anxiety) 30 Days Qty: 60 0RF lidocaine 5 % Ointment 1 applic TOPICAL TID PRN (Reason: pain) ketotifen fumarate [Zaditor] 0.025 % (0.035 %) Drops 1 drp OPHTHALMIC (EYE) BID potassium chloride 20 mEq tablet extended release 40 meq PO DAILY Qty: 20 0RF hydrocodone-acetaminophen 5-325 mg tablet 1 tab PO Q6H PRN (Reason: pain) Qty: 7 0RF sennosides [senna] 8.6 mg Tablet 17.2 mg PO BEDTIME PRN (Reason: Constipation) diphenhydramine HCl [Benadryl] 25 mg Capsule 75 mg PO DAILY PRN (Reason: Allergy Symptoms) omeprazole 40 mg Capsule,Delayed Release(Dr/Ec) 40 mg PO BID ondansetron 8 mg Tablet,Disintegrating 8 mg PO Q8H PRN (Reason: Nausea) methylprednisolone 4 mg tablet 4 mg PO DAILY 3 Days Qty: 3 0RF mupirocin 2 % ointment 1 applic topical BID Qty: 15 0RF clindamycin HCl [Cleocin HCl] 300 mg capsule 300 mg PO QID Qty: 28 0RF hydrocodone-acetaminophen 5-325 mg tablet 1 tab PO Q6H PRN (Reason: pain) Qty: 10 0RF methylprednisolone [Medrol (Juliocesar)] 4 mg tablets,dose pack See Rx Instructions .ROUTE .COMPLEX Qty: 21 0RF Rx Instructions: orally per package directions Referrals: Maxim Parks MD [Primary Care Provider] - Stand Alone Forms: Patient Portal/API
--- NOTE | 2022-06-23 18:55 | DI.US.S_ITS ---
PROCEDURE: US PERIPH VENOUS LOW EXTREM LT INDICATIONS: dvt r/o TECHNIQUE: Real-time imaging, as well as color and pulse Doppler interrogation, were performed of the lower extremity deep veins from the inguinal ligament to the popliteal fossa. COMPARISON: None. FINDINGS: The common femoral, femoral and popliteal veins are normally compressible, and free of intraluminal thrombus. Color and pulse Doppler demonstrate normal phasic intraluminal flow. There is normal augmentation response to distal compression maneuver. There is a suspected joint effusion in the left knee. IMPRESSION: 1. No evidence of deep venous thrombosis in the left lower extremity. Dictated by: Abimael Lyon M.D. on 06/23/2022 at 20:59 Approved by: Abimael Lyon M.D. on 06/23/2022 at 21:00
--- NOTE | 2022-06-23 18:55 | DI.CT.S_ITS ---
PROCEDURE: CT HEAD/BRAIN WO CON INDICATIONS: weakness TECHNIQUE: Noncontrast 4.5 mm thick angled axial sections acquired from the foramen magnum to the vertex, with coronal and sagittal reformats. For radiation dose reduction, the following was used: automated exposure control, adjustment of mA and/or kV according to patient size. COMPARISON: [facility], CT, CT HEAD/BRAIN WO CON, 02/22/2021, 15:04. FINDINGS: Image quality: Excellent. CSF spaces: Basal cisterns are patent. No extra-axial fluid collections. The ventricles are symmetric in size and shape. Brain: No intracranial bleeds or masses. There is cerebral volume loss for age, with resultant ventricular and sulcal prominence. There are periventricular and deep white matter chronic small vessel ischemic changes. There is intracranial internal carotid artery atherosclerosis. Skull and face: Calvarium and visualized facial bones appear intact, without suspicious lesions. Incidental note is made of hyperostosis frontalis. This is not considered to be pathologic in a woman of this age. Sinuses: Visualized sinuses and mastoids are clear. IMPRESSION: Noncontrast head CT within normal limits for age. If there is strong clinical suspicion for an acute stroke, please consider a brain MRI for further evaluation, as it is more sensitive (assuming that there is no contraindication to MRI). Dictated by: Iván Caceres M.D. on 06/23/2022 at 18:16 Approved by: Iván Caceres M.D. on 06/23/2022 at 18:17
== END 2022-06-23 21:25 | disposition home or self-care (01) ==
PROVIDERS: Emergency Medicine; Emergency Provider Emergency Medicine; PCP Family Medicine
DX: J45.909 Unspecified asthma, uncomplicated (principal); E87.1 Hypo-osmolality and hyponatremia; R07.9 Chest pain, unspecified; R53.1 Weakness; Z79.899 Other long term (current) drug therapy; Z20.822 Contact with and (suspected) exposure to COVID-19; N28.89 Other specified disorders of kidney and ureter
CPT/HCPCS: 36415; 70450; 71045; 74183; 80053; 81003; 82550; 83690; 83735; 83880; 84484; 85025; 85610; 85730; 87635; 93005; 93971; 99284; C9803

== ENCOUNTER 2022-06-28 12:27 | Emergency (ER) | payer MEDICARE, MEDICAID, SELFPAY ==
[2021-06-04 16:30] VITALS: BMI 39.6
[2022-06-28] VITALS (17 sets, daily range): BP systolic 106–148; BP diastolic 49–67; PULSE 70–99; RESP 11–23; TEMP 36.9; O2SAT 91–97; BMI 38.2
--- NOTE | 2022-06-28 13:00 | DI.RAD.S_ITS ---
PROCEDURE: XR CHEST 1V INDICATIONS: Shortness of breath TECHNIQUE: One view of the chest was acquired. COMPARISON: [facility], CR, XR CHEST 1V, 06/23/2022, 16:13. FINDINGS: Surgical changes and devices: None. Lungs and pleura: Lungs are clear. No pleural effusions or pneumothorax. Mediastinum: Mediastinal contours appear normal. Heart size is enlarged. Bones and chest wall: No suspicious bony lesions. Overlying soft tissues appear unremarkable. IMPRESSION: No acute cardiopulmonary pathology. Dictated by: Rafat Hall M.D. on 06/28/2022 at 12:36 Approved by: Rafat Hall M.D. on 06/28/2022 at 12:37
[2022-06-28 13:09] LABS: Prothrombin Time 11.9 SECONDS (10.1-12.7)
[2022-06-28 13:12] LABS: Add Manual Diff / Slide Review NO; Basophils Absolute Auto 100 /uL (0-100); Basophils Percent Auto 0.6 % (0-2); Eosinophils Absolute Auto 500 /uL (0-450); Eosinophils Percent Auto 5.9 % (2-4); Hematocrit 32.4 % (36-46); Lymphocytes Absolute Auto 2900 /uL (1100-4500); Lymphocytes Percent Auto 34.2 % (25-40); Mean Corpuscular HGB Conc 33.9 % (30-36); Mean Corpuscular Hemoglobin 28.6 PG (26-34); Mean Corpuscular Volume 84.5 fL (80-100); Monocytes Absolute Auto 700 /uL (0-900); Monocytes Percent Auto 8.1 % (3-14); Neutrophils Absolute Auto 4400 /uL (1500-7000); Neutrophils Percent Auto 51.2 % (50-75); Platelet Count 260 X10^3/uL (150-400); Red Blood Cell Count 3.83 X10^6/uL (4.0-5.2); White Blood Cell Count 8.6 X10^3/uL (4.5-11.0)
[2022-06-28 13:14] LABS: Lactate (Lactic Acid) 1.8 mmol/L (0.7-2.1)
[2022-06-28 13:19] LABS: Alanine Aminotransferase 24 IU/L (<35); Albumin 3.8 g/dL (3.5-5.0); Albumin Globulin Ratio 1.3 (1.0-2.8); Alkaline Phosphatase 119 U/L (38-126); Aspartate Aminotransferase 26 IU/L (14-36); BUN Creatinine Ratio 24.1 (6-22); Bilirubin Total 0.2 mg/dL (0.2-1.3); Blood Urea Nitrogen 28 mg/dL (7-17); Calcium 8.9 mg/dL (8.4-10.2); Carbon Dioxide 27 mmol/L (22-32); Chloride 103 mmol/L (98-107); Creatine Kinase 80 U/L (30-135); Estimated Glomerular Filt Rate 52 mL/min (>60); Glucose 160 mg/dL (80-110); HEMOLYSIS < 15 (0-50); Lipase 116 U/L (23-300); Potassium 2.8 mmol/L (3.4-5.1); Sodium 137 mmol/L (137-145); Total Protein 6.8 g/dL (6.3-8.2)
[2022-06-28] MEDS: IPRATROPIUM 0.5 MG/2.5 ML NEB INH (13:27)
[2022-06-28 13:28] LABS: NT-proBNP (BNP-Adult 18+) 97 pg/mL (<125)
--- NOTE | 2022-06-28 13:28 | ED.GENADULT ---
HPI - General Adult General Chief complaint: Shortness of Breath/Dyspnea Stated complaint: Allergic reaction Time Seen by Provider: 06/28/22 12:40 Source: patient Mode of arrival: EMS History of Present Illness HPI narrative: Patient is a 66-year-old female who arrived by EMS for evaluation of a reported allergic reaction. He states that this morning at approximately 0800 hours she started to use a new soap. Afterwards she started to feel like her chest was tightening. No rashes. No vomiting. She took some Benadryl. She then used an EpiPen. Her symptoms are not improving so she took some more Benadryl and another EpiPen. Her symptoms were still not improving so she contacted EMS. During this time she also did her nebulizer treatments. Here in the emergency department she states she does feel like her chest is tight. She also feels very shaky and just generally does not feel very well. She has had some chest pain recently but not currently. Related Data Home Medications Medication Instructions Recorded Confirmed sennosides 8.6 mg tablet (senna) 17.2 mg PO BEDTIME PRN Constipation 09/20/18 08/19/21 potassium chloride 20 mEq 10 meq PO DAILY PRN Take w/lasix 10/29/18 08/19/21 tablet,extended release diphenhydramine HCl 25 mg capsule 75 mg PO DAILY PRN Allergy Symptoms 10/26/19 09/27/21 (Benadryl) omeprazole 40 mg capsule,delayed 40 mg PO BID 02/10/20 08/19/21 release lidocaine 5 % topical ointment 1 applic topical TID PRN pain 02/24/20 09/27/21 ketotifen fumarate 0.025 % (0.035 1 drp ophthalmic (eye) BID 03/02/20 09/27/21 %) eye drops (Zaditor) fluticasone propionate 50 1 spray intranasal BID 04/02/20 09/27/21 mcg/actuation nasal spray,suspension ondansetron 8 mg disintegrating 8 mg PO Q8H PRN Nausea 06/29/20 08/19/21 tablet metoprolol succinate 25 mg 25 mg PO BID 01/27/21 08/19/21 tablet,extended release 24 hr valsartan 40 mg tablet 20 mg PO BID 01/27/21 08/19/21 acetaminophen 500 mg capsule 500 mg PO Q6H PRN Pain (Scale 04/11/21 09/27/21 Score 1-3) gabapentin 600 mg tablet 600 mg PO TID 04/11/21 09/27/21 ibuprofen 200 mg tablet 200 mg PO Q6H PRN Pain (Scale 04/11/21 09/27/21 Score 1-3) pramipexole 0.75 mg tablet 0.75 mg PO DAILY 04/11/21 09/27/21 tiotropium bromide 18 mcg capsule 1 cap inhalation DAILY 04/11/21 08/19/21 with inhalation device (Spiriva with HandiHaler) torsemide 20 mg tablet 80 mg PO BID 08/19/21 08/19/21 Previous Rx's Medication Instructions Recorded methocarbamol 750 mg tablet 750 mg PO TID PRN Spasms #90 tabs 09/29/19 epinephrine 0.3 mg/0.3 mL 0.3 mg (0.3 mL) IM ONCE PRN 01/01/20 injection, auto-injector Allergic Reaction #1 ea methylprednisolone 4 mg tablet 4 mg PO DAILY 3 days #3 tabs 06/06/21 montelukast 10 mg tablet See Rx Instructions .Route 07/26/21 .COMPLEX #90 tabs sumatriptan succinate 100 mg tablet See Rx Instructions .Route 07/26/21 .COMPLEX #14 tabs mupirocin 2 % topical ointment 1 applic topical BID #15 grams 10/12/21 hydrocodone 5 mg-acetaminophen 325 1 tab PO Q6H PRN pain #7 tabs 11/23/21 mg tablet potassium chloride 20 mEq 40 meq PO DAILY #20 tabs 11/23/21 tablet,extended release clindamycin HCl 300 mg capsule 300 mg PO QID #28 caps 01/23/22 (Cleocin HCl) hydrocodone 5 mg-acetaminophen 325 1 tab PO Q6H PRN pain #10 tabs 01/23/22 mg tablet quetiapine 25 mg tablet 25 mg PO BEDTIME #40 tabs 04/24/22 Trintellix 20 mg tablet 20 mg PO DAILY 30 days #30 tabs 05/25/22 (vortioxetine) diazepam 5 mg tablet 5 mg PO BID PRN anxiety 30 days 05/25/22 #60 tabs methylprednisolone 4 mg tablets in See Rx Instructions PO .COMPLEX 06/18/22 a dose pack (Medrol (Juliocesar)) #21 ea budesonide-formoterol HFA 80 1 puff inhalation BID #10.2 grams 06/28/22 mcg-4.5 mcg/actuation aerosol inhaler (Symbicort) epinephrine 0.3 mg/0.3 mL 0.3 mg (0.3 mL) IM Q5-15M PRN 06/28/22 injection, auto-injector (EpiPen anaphylaxis #2 ea 2-Juliocesar) Allergies Allergy/AdvReac Type Severity Reaction Status Date / Time Iodinated Contrast Media Allergy Severe Difficulty Verified 06/28/22 12:59 Breathing iodine Allergy Severe Difficulty Verified 06/28/22 12:59 Breathing latex Allergy Severe Rash Verified 06/28/22 12:59 morphine [MORPHINE] Allergy Severe Anaphylaxis Verified 06/28/22 12:59 Penicillins [PENICILLINS] Allergy Severe Anaphylaxis Verified 06/28/22 12:59 Sulfa (Sulfonamide Allergy Severe RASH Verified 06/28/22 12:59 Antibiotics) [SULFA (SULFONAMIDE ANTIBIOTICS)] azithromycin Allergy Intermediate Rash Verified 06/28/22 12:59 [From ZITHROMAX Z-JULIOCESAR] cefuroxime [From Ceftin] Allergy Intermediate Rash Verified 06/28/22 12:59 sulfamethoxazole Allergy Intermediate RASH Verified 06/28/22 12:59 [From SEPTRA] trimethoprim [From SEPTRA] Allergy Intermediate RASH Verified 06/28/22 12:59 ciprofloxacin [From Cipro] Allergy Pt does Verified 06/28/22 12:59 not remember reaction Corticosteroids Allergy Swelling Verified 06/28/22 12:59 (Glucocorticoids) of Lip/Tongue/Throat cephalexin [From Keflex] AdvReac Severe Fever, Verified 06/28/22 12:59 Asthma, Tachycardia prednisone AdvReac Severe nausea and Verified 06/28/22 12:59 feels very weak, and axious verapamil AdvReac Intermediate Asthma Verified 06/28/22 12:59 symptoms zonisamide AdvReac Intermediate Asthma Verified 06/28/22 12:59 symptoms Review of Systems Review of Systems ROS Unobtainable: All systems reviewed & are unremarkable except as noted in HPI and below Patient History Medical History Anemia Anxiety Asthma Chronic back pain Chronic cough Depression Femur fracture, left Fibromyalgia Fractures GERD (gastroesophageal reflux disease) Hiatal hernia Recurrent sinusitis Venous insufficiency (chronic) (peripheral) Surgical History Anesthesia History of eye surgery (~1973) History of foot surgery History of hysterectomy (~1979) History of shoulder surgery (~2011) History of tonsillectomy (~1975) Hx of bilateral cataract extraction Family History Mother Heart disease Sister Heart disease Social History marital status: number of children: 1 household members: none lives independently: Yes caregiver/support person: Yes (3 afternoons per week) pets and animals: Yes occupational status: disabled Smoking Status: Never smoker alcohol intake: never substance use type: does not use Smoking Status: Never smoker alcohol intake frequency: holidays/special occasions only Substance Use Type: marijuana Exam Initial Vital Signs Initial Vital Signs: Vital Signs Temperature 98.4 F 06/28/22 12:51 Pulse Rate 84 06/28/22 12:51 Respiratory Rate 20 06/28/22 12:51 Blood Pressure 148/67 H 06/28/22 12:51 Pulse Oximetry 96 06/28/22 12:51 Oxygen Delivery Method Room Air 06/28/22 12:51 Const General: cooperative, comfortable and No ill appearing HENUT Head: normal to inspection and normocephalic Resp Effort & Inspection: normal respiratory effort Auscultation: clear to auscultation bilaterally Cardio Rate: regular rate Rhythm: regular rhythm GI Inspection: normal to inspection and non-distended Skin General: no rashes or lesions noted Neuro General: patient alert, patient awake and moves all extremities Speech: speech normal Extrem General: normal to inspection Psych Appearance: grossly normal and well kempt Course Orders Ordered: ED Orders 06/28/22 12:50 Complete Blood Count AUTO DIFF Stat Comprehensive Metabolic Panel Stat Lactate (Lactic Acid) Stat Lipase Stat NT-proBNP (BNP-Adult 18+) Stat Prothrombin Time INR Stat Troponin & CK Cardiac Panel Stat 06/28/22 13:00 XR chest 1V Stat Measure peak expiratory flow ONCE RT Consult Eval and Treat NOW 06/28/22 13:21 EKG-12 Lead Stat Famotidine (Famotidine 20 Mg/2 Ml Vial) 20 mg IV NOW ZHANG Last Admin: 06/28/22 13:40 Dose: 20 mg Documented By: ISADORA Discontinued Medications Albuterol/Ipratropium (Albuterol/Ipratropium 3 Ml Ampul) 3 ml INH NOW ONE Stop: 06/28/22 15:06 Last Admin: 06/28/22 15:41 Dose: Not Given Documented By: AT Ipratropium [place] (Ipratropium 0.5 Mg/2.5 Ml Neb) 0.5 mg INH NOW ONE Stop: 06/28/22 13:14 Last Admin: 06/28/22 13:27 Dose: 0.5 mg Documented By: NEPTALI Methylprednisolone (Methylprednisolone 125 Mg/2 Ml Vial) 125 mg IV NOW ONE Stop: 06/28/22 13:29 Last Admin: 06/28/22 13:40 Dose: 125 mg Documented By: ISADORA Ondansetron HCl (Ondansetron 4 Mg/2 Ml Inj) 4 mg IV NOW ONE Stop: 06/28/22 13:29 Last Admin: 06/28/22 13:40 Dose: 4 mg Documented By: ISDAORA Sumatriptan Succinate (Sumatriptan 6 Mg/0.5 Ml Vial) 6 mg SUBCUT NOW ONE Stop: 06/28/22 16:38 Vital Signs Vital signs: Vital Signs - 8 hr 06/28/22 12:51 06/28/22 13:29 Temperature 98.4 F Pulse Rate 84 Respiratory Rate 20 Blood Pressure 148/67 H Pulse Oximetry 96 97 Oxygen Delivery Method Room Air Room Air Medical Decision Making Medical Records Medical records reviewed: Yes I reviewed the patient's medical records. Lab Data Lab results reviewed: Yes I reviewed the patient's lab results. 06/28/22 12:50 06/28/22 12:50 Labs: Lab Results 06/28/22 06/28/22 06/28/22 Range/Units 12:50 12:50 12:50 WBC (4.5-11.0) X10^3/uL RBC (4.0-5.2) X10^6/uL Hgb (12.0-16.0) g/dL Hct (36-46) % MCV (80-100) fL MCH (26-34) PG MCHC (30-36) % RDW (11.6-14.8) % Plt Count (150-400) X10^3/uL Neut % (Auto) (50-75) % Lymph % (Auto) (25-40) % Emmet % (Auto) (3-14) % Eos % (Auto) (2-4) % Baso % (Auto) (0-2) % Neut # (Auto) (6857-9185) /uL Lymph # (Auto) (7174-7745) /uL Emmet # (Auto) (0-900) /uL Eos # (Auto) (0-450) /uL Baso # (Auto) (0-100) /uL PT 11.9 (10.1-12.7) SECONDS INR 1.0 (0.9-1.3) Sodium (137-145) mmol/L Potassium (3.4-5.1) mmol/L Chloride (98-107) mmol/L Carbon Dioxide (22-32) mmol/L BUN (7-17) mg/dL Creatinine (0.52-1.04) mg/dL Estimated GFR (>60) mL/min BUN/Creatinine Ratio (6-22) Glucose (80-110) mg/dL Lactate 1.8 (0.7-2.1) mmol/L Calcium (8.4-10.2) mg/dL Total Bilirubin (0.2-1.3) mg/dL AST (14-36) IU/L ALT (<35) IU/L Alkaline Phosphatase (38-126) U/L Total Creatine Kinase (30-135) U/L CK-MB (CK-2) CK-MB (CK-2) Rel Index Troponin I (0.01-0.034) ng/mL NT-Pro-B Natriuret Pep 97 (<125) pg/mL Total Protein (6.3-8.2) g/dL Albumin (3.5-5.0) g/dL Globulin (1.7-4.1) g/dL Albumin/Globulin Ratio (1.0-2.8) Lipase (23-300) U/L 06/28/22 06/28/22 Range/Units 12:50 12:50 WBC 8.6 (4.5-11.0) X10^3/uL RBC 3.83 L (4.0-5.2) X10^6/uL Hgb 11.0 L (12.0-16.0) g/dL Hct 32.4 L (36-46) % MCV 84.5 (80-100) fL MCH 28.6 (26-34) PG MCHC 33.9 (30-36) % RDW 16.0 H (11.6-14.8) % Plt Count 260 (150-400) X10^3/uL Neut % (Auto) 51.2 (50-75) % Lymph % (Auto) 34.2 (25-40) % Emmet % (Auto) 8.1 (3-14) % Eos % (Auto) 5.9 H (2-4) % Baso % (Auto) 0.6 (0-2) % Neut # (Auto) 4400 (2480-2473) /uL Lymph # (Auto) 2900 (9034-1634) /uL Emmet # (Auto) 700 (0-900) /uL Eos # (Auto) 500 H (0-450) /uL Baso # (Auto) 100 (0-100) /uL PT (10.1-12.7) SECONDS INR (0.9-1.3) Sodium 137 (137-145) mmol/L Potassium 2.8 L (3.4-5.1) mmol/L Chloride 103 (98-107) mmol/L Carbon Dioxide 27 (22-32) mmol/L BUN 28 H (7-17) mg/dL Creatinine 1.16 H (0.52-1.04) mg/dL Estimated GFR 52 L (>60) mL/min BUN/Creatinine Ratio 24.1 H (6-22) Glucose 160 H (80-110) mg/dL Lactate (0.7-2.1) mmol/L Calcium 8.9 (8.4-10.2) mg/dL Total Bilirubin 0.2 (0.2-1.3) mg/dL AST 26 (14-36) IU/L ALT 24 (<35) IU/L Alkaline Phosphatase 119 (38-126) U/L Total Creatine Kinase 80 (30-135) U/L CK-MB (CK-2) TNP CK-MB (CK-2) Rel Index TNP Troponin I < 0.012 (0.01-0.034) ng/mL NT-Pro-B Natriuret Pep (<125) pg/mL Total Protein 6.8 (6.3-8.2) g/dL Albumin 3.8 (3.5-5.0) g/dL Globulin 3.0 (1.7-4.1) g/dL Albumin/Globulin Ratio 1.3 (1.0-2.8) Lipase 116 (23-300) U/L Imaging Data Chest x-ray: Radiologist's Impression: PROCEDURE:? XR CHEST 1V ? INDICATIONS:? Shortness of breath ? TECHNIQUE:? One view of the chest was acquired.? ? COMPARISON:? [facility], CR, XR CHEST 1V, 06/23/2022, 16:13. ? FINDINGS:? ? Surgical changes and devices:? None.? ? Lungs and pleura:? Lungs are clear.? No pleural effusions or pneumothorax.? ? Mediastinum:? Mediastinal contours appear normal.? Heart size is enlarged.? ? Bones and chest wall:? No suspicious bony lesions.? Overlying soft tissues appear unremarkable.? ? IMPRESSION:? No acute cardiopulmonary pathology.? ECG Data Attestation: I personally reviewed and interpreted this ECG as follows: Interpretation: Sinus rhythm Ventricular rate 80 Normal axis Normal QRS Normal QTC No ST T wave changes MDM Narrative Medical decision making narrative: Patient has been observed for greater than 4 hours after her 2nd dose of epi. She has no other indication of a allergic reaction/anaphylactic reaction. As tolerated oral intake. Has been ambulatory. Did develop a migraine headache after arrival for which she was given Imitrex. Will discharge patient home with refills of her epi and also Symbicort. She was advised that she contact her primary doctor for follow-up. She was given return precautions. Despite her stated allergies the patient states she can take steroids. It is actually prednisone that she has reactions with. She also states she can take albuterol but it causes her ?heart to race? Discharge Plan Departure Patient Disposition: Home Clinical Impression: Allergic reaction Instructions: DI for General Allergic Reactions Activity Restrictions/Additional Instructions: I recommend that you avoid using the soap again that potentially cause your reaction from this morning. I recommend that you contact your primary doctor for follow-up. Return to the emergency department for new or worsening symptoms. Continue the rest of your medications as directed. Prescriptions: New epinephrine [EpiPen 2-Juliocesar] 0.3 mg/0.3 mL auto-injector 0.3 mg IM Q5-15M PRN (Reason: anaphylaxis) Qty: 2 2RF Rx Instructions: do not exceed 3 doses per episode budesonide-formoterol [Symbicort] 80-4.5 mcg/actuation HFA aerosol inhaler 1 puff inhalation BID Qty: 10.2 0RF No Action Spiriva with HandiHaler 18 mcg capsule, w/inhalation device 1 cap inhalation DAILY Rx Instructions: puncture 1 cap using device; one dose = 2 inhalations pramipexole 0.75 mg tablet 0.75 mg PO DAILY ibuprofen 200 mg tablet 200 mg PO Q6H PRN (Reason: Pain (Scale Score 1-3)) gabapentin 600 mg tablet 600 mg PO TID Patient Comments: 0700, 1400, 2100 acetaminophen 500 mg capsule 500 mg PO Q6H PRN (Reason: Pain (Scale Score 1-3)) valsartan 40 mg tablet 20 mg PO BID metoprolol succinate 25 mg tablet extended release 24 hr 25 mg PO BID torsemide 20 mg tablet 80 mg PO BID Patient Comments: TAKE 2 TABLETS BY MOUTH IN THE MORNING AND 1 TABLET AT NIGHT potassium chloride 20 mEq tablet extended release 10 meq PO DAILY PRN (Reason: Take w/lasix) Rx Instructions: Take w/lasix prn fluticasone propionate 50 mcg/actuation spray,suspension 1 spray intranasal BID Rx Instructions: administer into each nostril methocarbamol 750 mg tablet 750 mg PO TID PRN (Reason: Spasms) Qty: 90 3RF Rx Instructions: PRN epinephrine 0.3 mg/0.3 mL auto-injector 0.3 mg IM ONCE PRN (Reason: Allergic Reaction) Qty: 1 11RF sumatriptan succinate 100 mg tablet See Rx Instructions .ROUTE .COMPLEX Qty: 14 0RF Dose Instruction: TAKE 1 TABLET BY MOUTH ONCE AT ONSET OF MIGRAINE HEADACHE. MAY REPEAT IN 2 HOURS IF NO RELIEF. MAX OF 2 TABLETS PER DAY. Rx Instructions: TAKE 1 TABLET BY MOUTH ONCE AT ONSET OF MIGRAINE HEADACHE. MAY REPEAT IN 2 HOURS IF NO RELIEF. MAX OF 2 TABLETS PER DAY. montelukast 10 mg tablet See Rx Instructions .ROUTE .COMPLEX Qty: 90 0RF Dose Instruction: TAKE 1 TABLET BY MOUTH AT BEDTIME NEEDED FOR ALLERGY SYMPTOMS Rx Instructions: TAKE 1 TABLET BY MOUTH AT BEDTIME NEEDED FOR ALLERGY SYMPTOMS quetiapine 25 mg tablet 25 mg PO BEDTIME MDD 50MG Qty: 40 2RF Rx Instructions: OK to repeat dose if not sleeping within 1 hour Trintellix 20 mg tablet 20 mg PO DAILY 30 Days Qty: 30 2RF diazepam 5 mg tablet 5 mg PO BID PRN (Reason: anxiety) 30 Days Qty: 60 0RF lidocaine 5 % Ointment 1 applic TOPICAL TID PRN (Reason: pain) ketotifen fumarate [Zaditor] 0.025 % (0.035 %) Drops 1 drp OPHTHALMIC (EYE) BID potassium chloride 20 mEq tablet extended release 40 meq PO DAILY Qty: 20 0RF hydrocodone-acetaminophen 5-325 mg tablet 1 tab PO Q6H PRN (Reason: pain) Qty: 7 0RF sennosides [senna] 8.6 mg Tablet 17.2 mg PO BEDTIME PRN (Reason: Constipation) diphenhydramine HCl [Benadryl] 25 mg Capsule 75 mg PO DAILY PRN (Reason: Allergy Symptoms) omeprazole 40 mg Capsule,Delayed Release(Dr/Ec) 40 mg PO BID ondansetron 8 mg Tablet,Disintegrating 8 mg PO Q8H PRN (Reason: Nausea) methylprednisolone 4 mg tablet 4 mg PO DAILY 3 Days Qty: 3 0RF mupirocin 2 % ointment 1 applic topical BID Qty: 15 0RF clindamycin HCl [Cleocin HCl] 300 mg capsule 300 mg PO QID Qty: 28 0RF hydrocodone-acetaminophen 5-325 mg tablet 1 tab PO Q6H PRN (Reason: pain) Qty: 10 0RF methylprednisolone [Medrol (Juliocesar)] 4 mg tablets,dose pack See Rx Instructions .ROUTE .COMPLEX Qty: 21 0RF Rx Instructions: orally per package directions Referrals: Maxim Parks MD [Primary Care Provider] - Stand Alone Forms: Patient Portal/API
[2022-06-28 13:33] LABS: Troponin I < 0.012 ng/mL (0.01-0.034)
[2022-06-28] MEDS: ONDANSETRON 4 MG/2 ML INJ IV (13:40)
[2022-06-28] MEDS: methylPREDNISolone 125 MG/2 ML VIAL IV (13:40)
[2022-06-28] MEDS: FAMOTIDINE 20 MG/2 ML VIAL IV (13:40)
[2022-06-28] MEDS: SUMAtriptan 6 MG/0.5 ML VIAL SUBCUT (16:49)
== END 2022-06-28 17:16 | disposition home or self-care (01) ==
PROVIDERS: Emergency Provider Emergency Medicine; PCP Family Medicine
DX: R06.02 Shortness of breath (principal); T78.40XA Allergy, unspecified, initial encounter
CPT/HCPCS: 36415; 71045; 80053; 82550; 83605; 83690; 83880; 84484; 85025; 85610; 93005; 94640; 96372; 96374; 96375; 99284; J2405; J2930; J3030

== ENCOUNTER 2022-07-14 14:45 | Emergency (ER) | payer MEDICARE, MEDICAID, SELFPAY ==
[2021-06-04 16:30] VITALS: BMI 39.6
[2022-07-14 14:57] VITALS: BP 119/63; PULSE 74; RESP 18; TEMP 36.7; O2SAT 96; BMI 33.6
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
[2022-07-14] MEDS: HYDROCODONE/ACET 5/325 TABLET 1 TAB PO (16:22)
--- NOTE | 2022-07-14 17:51 | PC.NURSE ---
Patient visualized walking around patient waiting room without assistive device. Called back from waiting room requesting more pain meds.
[2022-07-14 19:24] VITALS: PULSE 77; O2SAT 97
[2022-07-14 19:25] VITALS: BP 124/69; PULSE 75; O2SAT 97
[2022-07-14 19:30] VITALS: BP 121/63; PULSE 73; TEMP 36.8; O2SAT 97
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
[2022-07-14 20:00] VITALS: BP 133/75; PULSE 74; O2SAT 97
[2022-07-14] MEDS: DOXYCYCLINE HYCLATE 100 MG TABLET PO (20:02)
[2022-07-14] MEDS: HYDROCODONE/ACET 5/325 PREPACK 1 BOTTLE MISC (20:03)
== END 2022-07-14 20:13 | disposition home or self-care (01) ==
PROVIDERS: Emergency Provider Emergency Medicine; PCP Family Medicine
DX: L03.116 Cellulitis of left lower limb (principal); V19.3XXA Pedal cyclist (driver) (passenger) injured in unspecified nontraffic accident, initial encounter
CPT/HCPCS: 73030; 73502; 73590; 81003; 99283

== ENCOUNTER 2022-07-20 14:15 | Emergency (ER) | payer MEDICARE, MEDICAID, SELFPAY ==
[2021-06-04 16:30] VITALS: BMI 39.6
[2022-07-20 14:17] VITALS: BP 126/59; PULSE 71; RESP 18; TEMP 36.4; O2SAT 95; BMI 33.6
--- NOTE | 2022-07-20 15:28 | PC.NURSE ---
1st attempt made to bring pt into ED,unable to locate her in the lobby
== END 2022-07-20 15:36 | disposition left against medical advice (07) ==
PROVIDERS: Emergency Provider Emergency Medicine; PCP Family Medicine
DX: M79.89 Other specified soft tissue disorders (principal)
CPT/HCPCS: 99281

== ENCOUNTER 2022-07-20 23:10 | Emergency (ER) | payer MEDICARE, MEDICAID, SELFPAY ==
[2021-06-04 16:30] VITALS: BMI 39.6
[2022-07-20 23:16] VITALS: BP 101/56; PULSE 73; RESP 18; TEMP 36.3; O2SAT 95; BMI 74.2
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
[2022-07-21] MEDS: HYDROCODONE/ACET 5/325 TABLET 1 TAB PO (02:51)
[2022-07-21] MEDS: CLINDAMYCIN 150 MG CAPSULE 300 MG PO (02:51)
[2022-07-21 03:12] VITALS: BP 112/59; PULSE 68; RESP 16; O2SAT 97
== END 2022-07-21 03:13 | disposition home or self-care (01) ==
PROVIDERS: Emergency Provider Emergency Medicine; PCP Family Medicine
DX: L03.116 Cellulitis of left lower limb (principal)
CPT/HCPCS: 99283

== ENCOUNTER 2022-07-27 11:57 | Emergency (ER) | payer MEDICARE, MEDICAID, SELFPAY ==
[2021-06-04 16:30] VITALS: BMI 39.6
[2022-07-27 12:00] VITALS: BP 117/59; PULSE 76; RESP 17; TEMP 37; O2SAT 97; BMI 33.6
--- NOTE | 2022-07-27 12:07 | DI.RAD.S_ITS ---
PROCEDURE: XR TIBIA FIBULA LT 2V INDICATIONS: r/o fx TECHNIQUE: 2 views of the tibia and fibula were acquired. COMPARISON: [facility], CR, XR TIBIA FIBULA LT 2V, 07/14/2022, 15:19. FINDINGS: Bones: No fractures or dislocations. No suspicious bony lesions. Fixation hardware is noted overlying the 1st 2nd and 3rd metatarsals. Partially visualized femoral cindy is present. Soft tissues: No suspicious soft tissue calcifications or masses. IMPRESSION: No visualized acute fracture or dislocation. However, if clinical concern and/or pain persist, short interval imaging followup in 7-10 days is recommended, as occult injury cannot be definitively excluded. Dictated by: Gretchen Painter M.D. on 07/27/2022 at 12:43 Approved by: Gretchen Painter M.D. on 07/27/2022 at 12:55
[2022-07-27] MEDS: BACITRACIN OINT 0.9 GM PCKT 1 APPLIC TOP (12:12)
[2022-07-27] MEDS: KETOROLAC 30 MG/ML VIAL 15 MG IM (12:12)
[2022-07-27] MEDS: TET,DIPH,PERTUSS(ACELL),VAC/PF 0.5 ML SYRINGE IM (12:13)
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
[2022-07-27] MEDS: DOXYCYCLINE HYCLATE 100 MG TABLET PO (12:29)
--- NOTE | 2022-07-27 13:12 | DI.RAD.S_ITS ---
PROCEDURE: XR SHOULDER RT MIN 2V INDICATIONS: fall, worsening pain, no impact TECHNIQUE: 3 views of the shoulder were acquired. COMPARISON: [facility], CR, XR SHOULDER LT MIN 2V, 07/14/2022, 15:19. FINDINGS: Bones: No fractures or dislocations. No suspicious bony lesions. Visualized ribs appear intact. Soft tissues: No suspicious soft tissue calcifications. IMPRESSION: No visualized acute fracture or dislocation. However, if clinical concern and/or pain persist, short interval imaging followup in 7-10 days is recommended, as occult injury cannot be definitively excluded. Dictated by: Gretchen Painter M.D. on 07/27/2022 at 15:34 Approved by: Gretchen Painter M.D. on 07/27/2022 at 15:35
--- NOTE | 2022-07-27 13:12 | DI.RAD.S_ITS ---
PROCEDURE: XR KNEE RT 3V INDICATIONS: fall on to knee, hx arthroplasty TECHNIQUE: 3 views of the knee were acquired. COMPARISON: [facility], CR, XR KNEE RT 3V, 10/11/2021, 20:04. FINDINGS: Bones: No fractures or dislocations. No suspicious bony lesions. Knee arthroplasty is present. Hardware is intact without are fracture or periprosthetic lucency to suggest loosening. Soft tissues: No joint effusion. No suspicious soft tissue calcifications. IMPRESSION: Stable appearance of knee arthroplasty. Dictated by: Gretchen Painter M.D. on 07/27/2022 at 15:35 Approved by: Gretchen Painter M.D. on 07/27/2022 at 15:36
[2022-07-27] MEDS: OXYCODONE/ACETAMINOPHEN 5/325 TABLET 1 TAB PO (14:00)
[2022-07-27 15:10] VITALS: BP 120/64; PULSE 81; RESP 16; TEMP 36.6; O2SAT 98
== END 2022-07-27 15:37 | disposition home or self-care (01) ==
PROVIDERS: Emergency Provider Nurse Practitioner Critical Care Medicine; PCP Family Medicine
DX: S81.812A Laceration without foreign body, left lower leg, initial encounter (principal); S49.91XA Unspecified injury of right shoulder and upper arm, initial encounter; S89.91XA Unspecified injury of right lower leg, initial encounter; V19.9XXA Pedal cyclist (driver) (passenger) injured in unspecified traffic accident, initial encounter; Z79.899 Other long term (current) drug therapy; Z23 Encounter for immunization; Z96.651 Presence of right artificial knee joint
CPT/HCPCS: 12001; 73030; 73562; 73590; 90471; 96372; 99283; 99284; 90715; J1885

== ENCOUNTER 2022-08-04 11:20 | Observation (INO) | payer MEDICARE, MEDICAID, SELFPAY ==
[2021-06-04 16:30] VITALS: BMI 39.6
[2022-08-04] VITALS (11 sets, daily range): BP systolic 115–128; BP diastolic 55–86; PULSE 65–94; RESP 12–26; TEMP 36.4–36.9; O2SAT 94–99; BMI 33.6; BMI 34.9
--- NOTE | 2022-08-04 12:53 | DI.RAD.S_ITS ---
PROCEDURE: XR TIBIA FIBULA LT 2V INDICATIONS: left leg wound with necrosis, cellulitis TECHNIQUE: 2 views of the tibia and fibula were acquired. COMPARISON: [facility], CR, XR TIBIA FIBULA LT 2V, 07/27/2022, 12:15. FINDINGS: Bones: No fractures or dislocations. No suspicious bony lesions. Partially visualized femoral fixation cindy is present. Soft tissues: No suspicious soft tissue calcifications or masses. Slight appearance subcutaneous fat prominence. IMPRESSION: Slight appearance of subcutaneous fat prominence. Recommend correlation potential cellulitis. Dictated by: Gretchen Painter M.D. on 08/04/2022 at 13:38 Approved by: Gretchen Painter M.D. on 08/04/2022 at 13:38
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
[2022-08-04] MEDS: HYDROMORPHONE 0.5 MG INJ IV ×4 (13:20→23:59)
[2022-08-04] MEDS: CLINDAMYCIN 900 MG/50 ML PIGGYBACK 50 MG IV (13:20)
[2022-08-04 13:28] LABS: Add Manual Diff / Slide Review NO; Basophils Absolute Auto 100 /uL (0-100); Basophils Percent Auto 0.9 % (0-2); Eosinophils Absolute Auto 500 /uL (0-450); Eosinophils Percent Auto 6.5 % (2-4); Hematocrit 35.1 % (36-46); Lymphocytes Absolute Auto 2300 /uL (1100-4500); Lymphocytes Percent Auto 27.4 % (25-40); Mean Corpuscular HGB Conc 34.3 % (30-36); Mean Corpuscular Volume 84.5 fL (80-100); Monocytes Absolute Auto 500 /uL (0-900); Monocytes Percent Auto 5.6 % (3-14); Neutrophils Absolute Auto 5000 /uL (1500-7000); Neutrophils Percent Auto 59.6 % (50-75); Platelet Count 316 X10^3/uL (150-400); Red Blood Cell Count 4.15 X10^6/uL (4.0-5.2); Red Cell Distribution Width 15.8 % (11.6-14.8); White Blood Cell Count 8.4 X10^3/uL (4.5-11.0)
[2022-08-04 13:38] LABS: Lactate (Lactic Acid) 0.6 mmol/L (0.7-2.1)
[2022-08-04 13:39] LABS: Alanine Aminotransferase 28 IU/L (<35); Albumin 4.7 g/dL (3.5-5.0); Albumin Globulin Ratio 1.3 (1.0-2.8); Alkaline Phosphatase 147 U/L (38-126); Aspartate Aminotransferase 36 IU/L (14-36); Bilirubin Total 0.4 mg/dL (0.2-1.3); Blood Urea Nitrogen 42 mg/dL (7-17); Calcium 9.9 mg/dL (8.4-10.2); Carbon Dioxide 32 mmol/L (22-32); Chloride 97 mmol/L (98-107); Estimated Glomerular Filt Rate 58 mL/min (>60); Globulin 3.6 g/dL (1.7-4.1); Glucose 117 mg/dL (80-110); HEMOLYSIS < 15 (0-50); Potassium 3.7 mmol/L (3.4-5.1); Sodium 138 mmol/L (137-145); Total Protein 8.3 g/dL (6.3-8.2)
[2022-08-04 13:54] LABS: Procalcitonin 0.06 ng/mL (<0.5)
--- NOTE | 2022-08-04 15:10 | PC.NURSE ---
IV placed by another nurse
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
[2022-08-04] MEDS: VANCOMYCIN 1,500 MG/300 ML PIGGYBACK 200 MG IV (17:04)
[2022-08-04] MEDS: diphenhydrAMINE 25 MG TABLET 75 MG PO ×2 (18:06→22:37)
[2022-08-04] MEDS: ALBUTEROL 2.5 MG/3 ML NEB (ADULT) INH ×2 (18:35→22:46)
--- NOTE | 2022-08-04 18:54 | PC.NURSE ---
Pt arrived from ED this evening A&Ox4, VSS, afebrle. Wound to LLE, IAN with stiches, surrounded by redness, blanchable. MD Patel at bedside this evening assessing wound. Pt reports feeling she had been exposed to an allergen with MRSA nare swab, reporting runny nose, generalized itching and airway irritation. Benadryl dose of 75mg given per orders per patient request and prn albuterol nebulizer. Patient is able to ambulate independently in room, eating 100% of dinner. She tolerates vancomycin well this evening. Continuous monitoring.
[2022-08-04 18:56] LABS: MRSA (Nasal) PCR Not Detected (Not Detect)
[2022-08-04] MEDS: OXYCODONE IR 5 MG TABLET PO ×2 (19:35→23:19)
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
[2022-08-04] MEDS: SODIUM CHLORIDE 0.9% 1,000 ML 100 ML IV (19:40)
[2022-08-04 20:23] LABS: Magnesium 1.7 mg/dL (1.6-2.3)
[2022-08-04] MEDS: ACETAMINOPHEN 325 MG TABLET 650 MG PO (22:36)
[2022-08-04] MEDS: SENNOSIDES 8.6 MG TABLET PO (23:58)
[2022-08-05] MEDS: hydrOXYzine pamoate 25 MG CAPSULE 50 MG PO (03:30)
[2022-08-05] MEDS: ALBUTEROL 2.5 MG/3 ML NEB (ADULT) INH ×2 (03:32→15:24)
[2022-08-05 04:32] VITALS: BP 126/65; PULSE 92; RESP 26; TEMP 37.1; O2SAT 92
--- NOTE | 2022-08-05 05:02 | DI.RAD.S_ITS ---
PROCEDURE: XR CHEST 1V INDICATIONS: sob TECHNIQUE: One view of the chest was acquired. COMPARISON: [facility], CR, XR CHEST 1V, 06/28/2022, 13:05. FINDINGS: Surgical changes and devices: Left proximal humerus fixation hardware. Partially imaged cervical spine fusion hardware. Lungs and pleura: Low lung volumes. No visible consolidation, pleural effusion, or pneumothorax. Mediastinum: Mediastinal contours appear normal. Heart size is normal. Bones and chest wall: No suspicious bony lesions. Overlying soft tissues appear unremarkable. IMPRESSION: No acute cardiopulmonary disease. Dictated by: Altagracia Rodríguez M.D. on 08/05/2022 at 7:29 Approved by: Altagracia Rodríguez M.D. on 08/05/2022 at 7:30
[2022-08-05] MEDS: diphenhydrAMINE 25 MG TABLET 75 MG PO (05:10)
--- NOTE | 2022-08-05 05:13 | PC.NURSE ---
Overnight shift [id number] Took over care for Pt for overnight shift. Pain management provided to Pt at 730p(oxy), 8pm(dil), 10pm(tylenol), 11pm(oxy), 12am(dil) New IV was placed for Pt on right forearm. Spoke to overnight provider on why NS running, Provider advised due to order from day shift. Pt had 3 breathing treatments during shift. Pt wanting 100mg of benadryl every 4 hours. Complaints of itching. Pt states she takes this amount at home as prescribed from a provider. I do not see this in chart. Called to provider after second dose of 75mg of benadryl/first on my shift without relief, hydrozine was give. 1 hour later still complaints requesting benadryl. Pt stated she was SOB. RT returned to bedside. Pt stated she was struggling to breath, was lying in about 30degree position with washcloth over her face. Asked her to remove washcloth and placed her in a 90degree angle. Asked at 433am about itching, states she needs the 100mg of benadryl to breath and her at home inhaler which was not brought to the hospital with her. Provider called to assess. Orders placed to further evaluate. Patient did get up twice to close door while I was monitoring from hallway of 02 sats. Did not hear any breathing concerns from outside the door when the door was shut vs. when I was present in the room. Pt was provided with benadryl. She did state she was unhappy since it was not the 100mg. Advised of what was ordered and plan of care for rest of shift. Vitals/symptoms being monitored
[2022-08-05 07:24] LABS: Add Manual Diff / Slide Review NO; Basophils Absolute Auto 100 /uL (0-100); Basophils Percent Auto 1.3 % (0-2); Eosinophils Absolute Auto 600 /uL (0-450); Eosinophils Percent Auto 6.3 % (2-4); Hemoglobin 10.3 g/dL (12.0-16.0); Lymphocytes Absolute Auto 2700 /uL (1100-4500); Lymphocytes Percent Auto 31.1 % (25-40); Mean Corpuscular HGB Conc 34.5 % (30-36); Mean Corpuscular Hemoglobin 29.3 PG (26-34); Mean Corpuscular Volume 84.9 fL (80-100); Monocytes Absolute Auto 700 /uL (0-900); Monocytes Percent Auto 7.9 % (3-14); Neutrophils Absolute Auto 4600 /uL (1500-7000); Neutrophils Percent Auto 53.4 % (50-75); Platelet Count 260 X10^3/uL (150-400); Red Blood Cell Count 3.53 X10^6/uL (4.0-5.2); Red Cell Distribution Width 16.2 % (11.6-14.8); White Blood Cell Count 8.7 X10^3/uL (4.5-11.0)
[2022-08-05 07:40] LABS: BUN Creatinine Ratio 35.4 (6-22); Blood Urea Nitrogen 34 mg/dL (7-17); Calcium 8.9 mg/dL (8.4-10.2); Carbon Dioxide 29 mmol/L (22-32); Chloride 95 mmol/L (98-107); Estimated Glomerular Filt Rate > 60 mL/min (>60); Glucose 116 mg/dL (80-110); HEMOLYSIS < 15 (0-50); Sodium 132 mmol/L (137-145)
[2022-08-05 07:47] LABS: NT-proBNP (BNP-Adult 18+) 68 pg/mL (<125)
[2022-08-05 07:55] LABS: Potassium 2.6 mmol/L (3.4-5.1)
[2022-08-05] MEDS: OXYCODONE IR 5 MG TABLET PO ×2 (08:19→13:50)
[2022-08-05] MEDS: ACETAMINOPHEN 325 MG TABLET 650 MG PO (08:20)
[2022-08-05 09:19] VITALS: BP 124/72; PULSE 96; RESP 19; TEMP 35.7; O2SAT 95
[2022-08-05] MEDS: POTASSIUM CHLORIDE 20 MEQ TAB 40 MEQ PO ×2 (10:04→13:21)
[2022-08-05] MEDS: MAGNESIUM SULFATE 2 GM/50 ML PIGGYBACK IV (10:04)
[2022-08-05] MEDS: TORSEMIDE 10 MG TABLET 80 MG PO (10:41)
[2022-08-05] MEDS: IBUPROFEN 400 MG TABLET 800 MG PO (10:42)
[2022-08-05] MEDS: methocarbamoL 500 MG TABLET 750 MG PO (10:42)
[2022-08-05] MEDS: diazePAM 5 MG TABLET PO (10:42)
[2022-08-05 10:43] VITALS: BP 124/72; PULSE 101
[2022-08-05] MEDS: GABAPENTIN 600 MG TABLET PO (10:43)
[2022-08-05] MEDS: PANTOPRAZOLE DR 40 MG TABLET PO (10:43)
[2022-08-05] MEDS: METOPROLOL ER 25 MG TABLET PO (10:43)
[2022-08-05] MEDS: VALSARTAN 80 MG TABLET 20 MG PO (10:44)
[2022-08-05 12:00] VITALS: BP 138/56; PULSE 87; RESP 22; TEMP 35.7; O2SAT 100
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
--- NOTE | 2022-08-05 14:02 | PC.NURSE ---
drsng changed at 1400. demonstrated to patient how to do wet to dry dressing. gave patients supplies. pt understood the instructions.
[2022-08-05 14:17] VITALS: BP 94/58; PULSE 87; RESP 18; TEMP 35.7; O2SAT 96
[2022-08-05 14:27] LABS: BUN Creatinine Ratio 29.9 (6-22); Blood Urea Nitrogen 29 mg/dL (7-17); Calcium 8.8 mg/dL (8.4-10.2); Carbon Dioxide 27 mmol/L (22-32); Chloride 96 mmol/L (98-107); Estimated Glomerular Filt Rate > 60 mL/min (>60); Glucose 111 mg/dL (80-110); HEMOLYSIS < 15 (0-50); Potassium 3.7 mmol/L (3.4-5.1); Sodium 132 mmol/L (137-145)
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
[2022-08-05 15:24] VITALS: PULSE 87; O2SAT 97
--- NOTE | 2022-08-05 16:33 | PC.NURSE ---
Patient teaching done at bedside, all questions and concerns addressed with nurse. Patient's ride was unable to come at last minute, [employer] was called and patient was escorted down taxi by staff member. Patient to ask Taxi service about picking up meds from pharmacy. Patient's VSS, was walking and talking outside of room prior to d/c. Patient in stable condition at time of departure. Information, instructions and materials provided for wet to dry drg. changes. Patient states I know what I am doing (regarding home dressing changes). States understanding of the urgency in sched. with Wound Care for further treatment plan regarding wound on leg.
[2022-08-07 01:13] LABS: x Labcorp Estim. Avg Glu (eAG) 126 mg/dL (.)
== END 2022-08-05 16:25 | disposition home or self-care (01) ==
LOC: ED 14:44 → AC 14:45
PROVIDERS: Internal Medicine; Admitting Provider Student in an Organized Health Care Education/Training Program; Emergency Provider Emergency Medicine; PCP Family Medicine; Referring Provider Emergency Medicine; Visit Provider Student in an Organized Health Care Education/Training Program
DX: S81.812A Laceration without foreign body, left lower leg, initial encounter (principal); Y93.55 Activity, bike riding; F41.9 Anxiety disorder, unspecified; F32.A Depression, unspecified; J45.909 Unspecified asthma, uncomplicated
CPT/HCPCS: 36415; 71045; 73590; 80048; 80053; 83036; 83605; 83735; 83880; 84145; 85025; 87040; 87797; 94640; 96365; 96366; 96367; 96375; 96376; 99284; G0378; J1170; J3475; J7613

== ENCOUNTER → 2022-08-08 14:12 | Outpatient (CLI) | payer MEDICARE, MEDICAID, SELFPAY ==
[2022-08-04 16:38] VITALS: BMI 34.9
== END ==
PROVIDERS: PCP Internal Medicine; Referring Provider Nurse Practitioner Critical Care Medicine; Visit Provider Surgery
DX: S81.812A Laceration without foreign body, left lower leg, initial encounter (principal)
CPT/HCPCS: 11042; 11045; 87070; 87075; 87205; 99203; 99213

== ENCOUNTER → 2022-08-17 10:29 | Outpatient (CLI) | payer MEDICARE, MEDICAID, SELFPAY ==
[2022-08-04 16:38] VITALS: BMI 34.9
== END ==
PROVIDERS: PCP Internal Medicine; Referring Provider Nurse Practitioner Critical Care Medicine; Visit Provider Surgery
DX: S81.812A Laceration without foreign body, left lower leg, initial encounter (principal); R60.0 Localized edema; L53.9 Erythematous condition, unspecified; L03.116 Cellulitis of left lower limb
CPT/HCPCS: 11042; 11045; 87070; 87075; 87077; 87186; 87205; 99213

== ENCOUNTER → 2022-08-22 10:08 | Outpatient (CLI) | payer MEDICARE, MEDICAID, SELFPAY ==
[2022-08-04 16:38] VITALS: BMI 34.9
== END ==
PROVIDERS: PCP Internal Medicine; Referring Provider Nurse Practitioner Critical Care Medicine; Visit Provider Surgery
DX: S81.812A Laceration without foreign body, left lower leg, initial encounter (principal); V18.0XXA Pedal cycle driver injured in noncollision transport accident in nontraffic accident, initial encounter
CPT/HCPCS: 11042; 11045

== ENCOUNTER → 2022-08-24 09:46 | Outpatient (CLI) | payer MEDICARE, MEDICAID, SELFPAY ==
[2022-08-04 16:38] VITALS: BMI 34.9
== END ==
PROVIDERS: PCP Internal Medicine; Referring Provider Nurse Practitioner Critical Care Medicine; Visit Provider Surgery
DX: S81.812A Laceration without foreign body, left lower leg, initial encounter (principal); R60.0 Localized edema; L53.9 Erythematous condition, unspecified
CPT/HCPCS: 29581

== ENCOUNTER → 2022-08-25 12:49 | Outpatient (CLI) | payer MEDICARE, MEDICAID, SELFPAY ==
[2022-08-04 16:38] VITALS: BMI 34.9
== END ==
PROVIDERS: PCP Internal Medicine; Referring Provider Internal Medicine; Visit Provider Physician Assistant
DX: S81.812A Laceration without foreign body, left lower leg, initial encounter (principal); R60.0 Localized edema
CPT/HCPCS: 29581

== ENCOUNTER → 2022-08-29 10:00 | Outpatient (CLI) | payer MEDICARE, MEDICAID, SELFPAY ==
[2022-08-04 16:38] VITALS: BMI 34.9
== END ==
PROVIDERS: PCP Internal Medicine; Referring Provider Nurse Practitioner Critical Care Medicine; Visit Provider Surgery
DX: S81.812A Laceration without foreign body, left lower leg, initial encounter (principal); R60.0 Localized edema; L53.9 Erythematous condition, unspecified
CPT/HCPCS: 11042; 11045

== ENCOUNTER → 2022-09-05 10:07 | Outpatient (CLI) | payer MEDICARE, MEDICAID, SELFPAY ==
[2022-08-04 16:38] VITALS: BMI 34.9
== END ==
PROVIDERS: PCP Internal Medicine; Referring Provider Nurse Practitioner Critical Care Medicine; Visit Provider Surgery
DX: S81.812A Laceration without foreign body, left lower leg, initial encounter (principal); R60.0 Localized edema; L53.9 Erythematous condition, unspecified
CPT/HCPCS: 97607

== ENCOUNTER → 2022-09-08 11:43 | Outpatient (CLI) | payer MEDICARE, MEDICAID, SELFPAY ==
[2022-08-04 16:38] VITALS: BMI 34.9
== END ==
PROVIDERS: PCP Internal Medicine; Referring Provider Nurse Practitioner Critical Care Medicine; Visit Provider Physician Assistant
DX: S81.812A Laceration without foreign body, left lower leg, initial encounter (principal); R60.0 Localized edema; L53.9 Erythematous condition, unspecified
CPT/HCPCS: 29581

== ENCOUNTER → 2022-09-12 11:01 | Outpatient (CLI) | payer OTHER, MEDICAID, SELFPAY ==
[2022-08-04 16:38] VITALS: BMI 34.9
== END ==
PROVIDERS: PCP Internal Medicine; Referring Provider Nurse Practitioner Critical Care Medicine; Visit Provider Surgery
DX: S81.802A Unspecified open wound, left lower leg, initial encounter (principal)
CPT/HCPCS: 11042; 99212; 99213

== ENCOUNTER 2022-09-12 18:03 | Emergency (ER) | payer OTHER, MEDICAID, SELFPAY ==
[2022-08-04 16:38] VITALS: BMI 34.9
[2022-09-12 18:32] VITALS: BP 109/59; PULSE 75; RESP 16; TEMP 36.6; O2SAT 97; BMI 33.8
== END 2022-09-13 00:37 | disposition left against medical advice (07) ==
PROVIDERS: Emergency Provider Emergency Medicine; PCP Internal Medicine
CPT/HCPCS: 99281

== ENCOUNTER → 2022-09-19 10:15 | Outpatient (CLI) | payer OTHER, MEDICAID, SELFPAY ==
[2022-08-04 16:38] VITALS: BMI 34.9
== END ==
PROVIDERS: PCP Internal Medicine; Referring Provider Nurse Practitioner Critical Care Medicine; Visit Provider Surgery
DX: S81.812A Laceration without foreign body, left lower leg, initial encounter (principal); R60.0 Localized edema
CPT/HCPCS: 11042

== ENCOUNTER → 2022-09-26 10:24 | Outpatient (CLI) | payer OTHER, MEDICAID, SELFPAY ==
[2022-08-04 16:38] VITALS: BMI 34.9
== END ==
PROVIDERS: PCP Internal Medicine; Referring Provider Nurse Practitioner Critical Care Medicine; Visit Provider Surgery
DX: S81.812A Laceration without foreign body, left lower leg, initial encounter (principal); M79.7 Fibromyalgia; R60.0 Localized edema
CPT/HCPCS: 11042

== ENCOUNTER → 2022-10-03 13:15 | Outpatient (CLI) | payer OTHER, MEDICAID, SELFPAY ==
[2022-08-04 16:38] VITALS: BMI 34.9
== END ==
PROVIDERS: PCP Internal Medicine; Referring Provider Nurse Practitioner Critical Care Medicine; Visit Provider Surgery
DX: S81.812A Laceration without foreign body, left lower leg, initial encounter (principal); R60.0 Localized edema
CPT/HCPCS: 11042

== ENCOUNTER 2022-10-06 18:07 | Emergency (ER) | payer OTHER, MEDICAID, SELFPAY ==
[2022-08-04 16:38] VITALS: BMI 34.9
[2022-10-06] VITALS (10 sets, daily range): BP systolic 112–121; BP diastolic 53–67; PULSE 68–81; RESP 13–23; TEMP 36.7; O2SAT 93–98; BMI 35.8
--- NOTE | 2022-10-06 18:09 | DI.RAD.S_ITS ---
PROCEDURE: XR CHEST 1V INDICATIONS: SOB TECHNIQUE: One view of the chest was acquired. COMPARISON: [facility], CR, XR CHEST 1V, 08/05/2022, 7:02. [facility], CR, XR CHEST 1V, 06/28/2022, 13:05. FINDINGS: Surgical changes and devices: None. Lungs and pleura: Low lung volumes. No dense consolidation or pleural effusion. Mediastinum: Borderline cardiomegaly. Bones and chest wall: Degenerative changes. IMPRESSION: No acute radiographic abnormality. Low lung volumes, limiting evaluation. Dictated by: Gamaliel Bansal M.D. on 10/06/2022 at 19:29 Approved by: Gamaliel Bansal M.D. on 10/06/2022 at 19:29
[2022-10-06 18:21] LABS: Add Manual Diff / Slide Review NO; Basophils Absolute Auto 100 /uL (0-100); Basophils Percent Auto 0.9 % (0-2); Eosinophils Absolute Auto 300 /uL (0-450); Eosinophils Percent Auto 3.3 % (2-4); Hematocrit 39.5 % (36-46); Hemoglobin 13.5 g/dL (12.0-16.0); Lymphocytes Absolute Auto 2300 /uL (1100-4500); Lymphocytes Percent Auto 26.4 % (25-40); Mean Corpuscular HGB Conc 34.2 % (30-36); Mean Corpuscular Hemoglobin 28.7 PG (26-34); Monocytes Absolute Auto 400 /uL (0-900); Monocytes Percent Auto 4.4 % (3-14); Neutrophils Absolute Auto 5700 /uL (1500-7000); Platelet Count 319 X10^3/uL (150-400); Red Cell Distribution Width 15.2 % (11.6-14.8); White Blood Cell Count 8.7 X10^3/uL (4.5-11.0)
--- NOTE | 2022-10-06 18:32 | ED_ITS ---
HPI - General Adult General Chief complaint: Chest Pain Stated complaint: Lethargic/SOB Time Seen by Provider: 10/06/22 18:09 Source: patient and EMS Mode of arrival: EMS Limitations: no limitations History of Present Illness HPI narrative: Patient is a 66-year-old female. Has a history of CHF, chronic left lower extremity wound who is here for evaluation of chest discomfort and fatigue and shortness of breath. She states that for the past 2 nights she has had left- sided chest discomfort and pressure. It was difficult for her to describe it more than that. She states that currently she just does not feel very good. Was short of breath earlier today and took some of her inhalers and this improved her shortness of breath but her chest pain has been persistent. She can not give a specific time as to when it started but it was sometime this evening. Not worse with palpation or movement. She does describe it as a pressure. She does have some lower extremity swelling but this is not necessarily new for her. She contacted her receptionist telephone operator who thought she should come to the emergency department for evaluation. Related Data Home Medications Medication Instructions Recorded Confirmed sennosides 8.6 mg tablet (senna) 17.2 mg PO BEDTIME PRN Constipation 09/20/18 08/04/22 diphenhydramine HCl 25 mg capsule 75 mg PO DAILY PRN Allergy Symptoms 10/26/19 08/04/22 (Benadryl) omeprazole 40 mg capsule,delayed 40 mg PO BID 02/10/20 08/04/22 release lidocaine 5 % topical ointment 1 applic topical TID PRN pain 02/24/20 08/04/22 ketotifen fumarate 0.025 % (0.035 1 drp ophthalmic (eye) DAILY 03/02/20 08/04/22 %) eye drops (Zaditor) fluticasone propionate 50 1 spray intranasal DAILY 04/02/20 08/04/22 mcg/actuation nasal spray,suspension metoprolol succinate 25 mg 25 mg PO BID 01/27/21 08/04/22 tablet,extended release 24 hr valsartan 40 mg tablet 20 mg PO BID 01/27/21 08/04/22 acetaminophen 500 mg capsule 1,000 mg PO Q6H PRN Pain (Scale 04/11/21 08/04/22 Score 1-3) gabapentin 600 mg tablet 600 mg PO TID 04/11/21 08/04/22 ibuprofen 200 mg tablet 800 mg PO DAILY 04/11/21 08/04/22 pramipexole 0.75 mg tablet 0.75 mg PO BEDTIME 04/11/21 08/04/22 tiotropium bromide 18 mcg capsule 1 cap inhalation DAILY 04/11/21 08/04/22 with inhalation device (Spiriva with HandiHaler) torsemide 20 mg tablet 80 mg PO BID 08/19/21 08/04/22 methylprednisolone 4 mg tablet 4 mg PO PRN PRN Shortness Of Breath 08/04/22 08/04/22 Previous Rx's Medication Instructions Recorded methocarbamol 750 mg tablet 750 mg PO TID PRN Spasms #90 tabs 09/29/19 epinephrine 0.3 mg/0.3 mL 0.3 mg (0.3 mL) IM ONCE PRN 01/01/20 injection, auto-injector Allergic Reaction #1 ea sumatriptan succinate 100 mg tablet See Rx Instructions .Route 07/26/21 .COMPLEX #14 tabs potassium chloride 20 mEq 40 meq PO DAILY #20 tabs 11/23/21 tablet,extended release diazepam 5 mg tablet 5 mg PO BID PRN anxiety 30 days 05/25/22 #60 tabs budesonide-formoterol HFA 80 1 puff inhalation BID #10.2 grams 06/28/22 mcg-4.5 mcg/actuation aerosol inhaler (Symbicort) epinephrine 0.3 mg/0.3 mL 0.3 mg (0.3 mL) IM Q5-15M PRN 06/28/22 injection, auto-injector (EpiPen anaphylaxis #2 ea 2-Juliocesar) bismuth tribrom-petrolatum,wh 5 X #50 ea 08/05/22 9 bandage (Xeroform Petrolatum Dressing) dextromethorphan 5 mg-guaifenesin 20 ml PO Q4-6H PRN cough #118 mL 08/05/22 50 mg/5 mL oral liquid hydrocodone 5 mg-acetaminophen 325 1 tab PO Q4-6H PRN pain #20 tabs 08/05/22 mg tablet Trintellix 20 mg tablet 20 mg PO DAILY 30 days #30 tabs 08/23/22 (vortioxetine) quetiapine 25 mg tablet 25 mg PO BEDTIME #40 tabs 09/18/22 Allergies Allergy/AdvReac Type Severity Reaction Status Date / Time Iodinated Contrast Media Allergy Severe Difficulty Verified 09/12/22 18:37 Breathing iodine Allergy Severe Difficulty Verified 09/12/22 18:37 Breathing latex Allergy Severe Rash Verified 09/12/22 18:37 morphine [MORPHINE] Allergy Severe Anaphylaxis Verified 09/12/22 18:37 Penicillins [PENICILLINS] Allergy Severe Anaphylaxis Verified 09/12/22 18:37 Sulfa (Sulfonamide Allergy Severe RASH Verified 09/12/22 18:37 Antibiotics) [SULFA (SULFONAMIDE ANTIBIOTICS)] azithromycin Allergy Intermediate Rash Verified 09/12/22 18:37 [From ZITHROMAX Z-JULIOCESAR] cefuroxime [From Ceftin] Allergy Intermediate Rash Verified 09/12/22 18:37 sulfamethoxazole Allergy Intermediate RASH Verified 09/12/22 18:37 [From SEPTRA] trimethoprim [From SEPTRA] Allergy Intermediate RASH Verified 09/12/22 18:37 ciprofloxacin [From Cipro] Allergy Pt does Verified 09/12/22 18:37 not remember reaction Corticosteroids Allergy Swelling Verified 09/12/22 18:37 (Glucocorticoids) of Lip/Tongue/Throat cephalexin [From Keflex] AdvReac Severe Fever, Verified 09/12/22 18:37 Asthma, Tachycardia prednisone AdvReac Severe nausea and Verified 09/12/22 18:37 feels very weak, and axious verapamil AdvReac Intermediate Asthma Verified 09/12/22 18:37 symptoms zonisamide AdvReac Intermediate Asthma Verified 09/12/22 18:37 symptoms Review of Systems Review of Systems ROS Unobtainable: All systems reviewed & are unremarkable except as noted in HPI and below Patient History Medical History Anemia Anxiety Asthma Chronic back pain Chronic cough Depression Femur fracture, left Fibromyalgia Fractures GERD (gastroesophageal reflux disease) Hiatal hernia Recurrent sinusitis Venous insufficiency (chronic) (peripheral) Surgical History Anesthesia History of eye surgery (~1973) History of foot surgery History of hysterectomy (~1979) History of shoulder surgery (~2011) History of tonsillectomy (~1975) Hx of bilateral cataract extraction Family History Mother Heart disease Sister Heart disease Social History marital status: number of children: 1 household members: none lives independently: Yes caregiver/support person: Yes (3 afternoons per week) pets and animals: Yes occupational status: disabled Smoking Status: Never smoker alcohol intake: current substance use type: does not use Smoking Status: Never smoker alcohol intake frequency: holidays/special occasions only Substance Use Type: marijuana Exam Initial Vital Signs Initial Vital Signs: Vital Signs Temperature 98.0 F 10/06/22 18:26 Pulse Rate 75 10/06/22 18:26 Respiratory Rate 18 10/06/22 18:26 Blood Pressure 121/57 L 10/06/22 18:26 Pulse Oximetry 95 10/06/22 18:26 Oxygen Delivery Method Room Air 10/06/22 18:26 Const General: cooperative, comfortable and No ill appearing HENMT Head: normal to inspection and normocephalic Resp Effort & Inspection: normal respiratory effort Auscultation: clear to auscultation bilaterally Cardio Rate: regular rate Rhythm: regular rhythm GI Inspection: normal to inspection Palpation: soft and No tender Skin General: no rashes or lesions noted Neuro General: patient alert and moves all extremities Extrem General: normal to inspection and capillary refill normal Psych Appearance: grossly normal Scores HEART Score Heart Score history: Slightly Suspicious Heart Score EKG: Normal Heart Score Age: > or = 65 years old Heart Score risk factors: 1-2 risk factors Heart Score troponin: < or = to normal limit Heart Score Total: 3 Course Orders Ordered: ED Orders 10/06/22 18:09 XR chest 1V Stat 10/06/22 18:10 Complete Blood Count AUTO DIFF Stat Comprehensive Metabolic Panel Stat Lipase Stat Troponin & CK Cardiac Panel Stat EKG-12 Lead Stat 10/06/22 18:34 Consult to [employer] SECRETARY - Experimental Machinist Stat 10/06/22 18:52 Respiratory Panel (Film Array) Stat 10/06/22 21:00 Troponin & CK Cardiac Panel Stat Discontinued Medications Acetaminophen (Acetaminophen 325 Mg Tablet) 650 mg PO NOW ONE Stop: 10/06/22 19:10 Last Admin: 10/06/22 19:23 Dose: 650 mg Documented By: SB Sodium Chloride (Normal Saline 0.9%) 1,000 mls @ 1,000 mls/hr IV BOLUS ONE Stop: 10/06/22 19:08 Last Infusion: 10/06/22 20:59 Dose: 0 mls/hr Documented By: Admin: 10/06/22 19:04 Dose: 1,000 mls/hr Documented By: RAVEN Ibuprofen (Ibuprofen 400 Mg Tablet) 800 mg PO NOW ONE Stop: 10/06/22 19:10 Last Admin: 10/06/22 19:24 Dose: 800 mg Documented By: FRANCISCO Oxycodone/Acetaminophen (Oxycodone/Acetaminophen 5/325 Tablet) 1 tab PO NOW ONE Stop: 10/06/22 19:10 Last Admin: 10/06/22 19:24 Dose: 1 tab Documented By: FRANCISCO Vital Signs Vital signs: Vital Signs - 8 hr 10/06/22 18:26 10/06/22 18:46 10/06/22 18:48 Temperature 98.0 F Pulse Rate 75 75 75 Respiratory Rate 18 16 Blood Pressure 121/57 L Pulse Oximetry 95 96 96 Oxygen Delivery Method Room Air 10/06/22 18:48 10/06/22 19:23 10/06/22 19:23 Temperature Pulse Rate 76 Respiratory Rate 14 Blood Pressure 121/56 L 121/58 L Pulse Oximetry 98 Oxygen Delivery Method Room Air 10/06/22 19:30 10/06/22 19:30 10/06/22 20:00 Temperature Pulse Rate 80 Respiratory Rate 17 Blood Pressure 121/57 L 119/67 Pulse Oximetry 97 Oxygen Delivery Method 10/06/22 20:00 10/06/22 20:30 10/06/22 20:30 Temperature Pulse Rate 81 75 Respiratory Rate 23 23 Blood Pressure 112/56 L Pulse Oximetry 96 93 Oxygen Delivery Method Room Air 10/06/22 21:00 10/06/22 21:00 10/06/22 21:30 Temperature Pulse Rate 68 Respiratory Rate 20 Blood Pressure 115/58 L 112/53 L Pulse Oximetry 96 Oxygen Delivery Method 10/06/22 21:30 10/06/22 22:00 10/06/22 22:00 Temperature Pulse Rate 69 69 Respiratory Rate 13 16 Blood Pressure 121/58 L Pulse Oximetry 96 94 Oxygen Delivery Method Room Air Room Air Medical Decision Making Medical Records Medical records reviewed: Yes I reviewed the patient's medical records. Lab Data Lab results reviewed: Yes I reviewed the patient's lab results. 10/06/22 18:10 10/06/22 18:10 Labs: Lab Results 10/06/22 10/06/22 10/06/22 Range/Units 18:10 18:10 18:52 WBC 8.7 (4.5-11.0) X10^3/uL RBC 4.70 (4.0-5.2) X10^6/uL Hgb 13.5 (12.0-16.0) g/dL Hct 39.5 (36-46) % MCV 84.0 (80-100) fL MCH 28.7 (26-34) PG MCHC 34.2 (30-36) % RDW 15.2 H (11.6-14.8) % Plt Count 319 (150-400) X10^3/uL Neut % (Auto) 65.0 (50-75) % Lymph % (Auto) 26.4 (25-40) % Foster % (Auto) 4.4 (3-14) % Eos % (Auto) 3.3 (2-4) % Baso % (Auto) 0.9 (0-2) % Neut # (Auto) 5700 (2127-0783) /uL Lymph # (Auto) 2300 (5303-8224) /uL Foster # (Auto) 400 (0-900) /uL Eos # (Auto) 300 (0-450) /uL Baso # (Auto) 100 (0-100) /uL Sodium 136 L (137-145) mmol/L Potassium 3.2 L (3.4-5.1) mmol/L Chloride 97 L (98-107) mmol/L Carbon Dioxide 27 (22-32) mmol/L BUN 29 H (7-17) mg/dL Creatinine 1.16 H (0.52-1.04) mg/dL Estimated GFR 52 L (>60) mL/min BUN/Creatinine Ratio 25.0 H (6-22) Glucose 113 H (80-110) mg/dL Calcium 9.7 (8.4-10.2) mg/dL Total Bilirubin 0.4 (0.2-1.3) mg/dL AST 34 (14-36) IU/L ALT 26 (<35) IU/L Alkaline Phosphatase 132 H (38-126) U/L Total Creatine Kinase 96 (30-135) U/L Troponin I < 0.012 (0.01-0.034) ng/mL Total Protein 8.9 H (6.3-8.2) g/dL Albumin 4.8 (3.5-5.0) g/dL Globulin 4.1 (1.7-4.1) g/dL Albumin/Globulin Ratio 1.2 (1.0-2.8) Lipase 127 (23-300) U/L Chlamy pneumoniae PCR Not detected (Not Detect) Adenovirus (PCR) Not detected (Not Detect) B. pertussis DNA (PCR) Not detected (Not Detecte) B.parapertussis DNA PCR Not detected (Not Detecte) Coronavirus OC43 (PCR) Not detected (Not Detect) Coronavirus HKU1 (PCR) Not detected (Not Detect) Coronavirus 229E (PCR) Not detected (Not Detect) SARS-CoV-2 (PCR) Not detected (Not Detecte) Coronavirus NL63 (PCR) Not detected (Not Detect) Human Metapneumovir PCR Not detected (Not Detect) Influenza Type A (PCR) Not detected (Not Detect) Influenza Type B (PCR) Not detected (Not Detect) M. pneumoniae (PCR) Not detected (Not Detect) Parainfluenza 1 (PCR) Not detected (Not Detect) Parainfluenza 2 (PCR) Not detected (Not Detect) Parainfluenza 3 (PCR) Not detected (Not Detect) Parainfluenza 4 (PCR) Not detected (Not Detect) RSV (PCR) Not detected (Not Detect) Entero/Rhino (PCR) Not detected (Not Detect) 10/06/22 Range/Units 21:00 WBC (4.5-11.0) X10^3/uL RBC (4.0-5.2) X10^6/uL Hgb (12.0-16.0) g/dL Hct (36-46) % MCV (80-100) fL MCH (26-34) PG MCHC (30-36) % RDW (11.6-14.8) % Plt Count (150-400) X10^3/uL Neut % (Auto) (50-75) % Lymph % (Auto) (25-40) % Foster % (Auto) (3-14) % Eos % (Auto) (2-4) % Baso % (Auto) (0-2) % Neut # (Auto) (1631-2482) /uL Lymph # (Auto) (5793-1459) /uL Foster # (Auto) (0-900) /uL Eos # (Auto) (0-450) /uL Baso # (Auto) (0-100) /uL Sodium (137-145) mmol/L Potassium (3.4-5.1) mmol/L Chloride (98-107) mmol/L Carbon Dioxide (22-32) mmol/L BUN (7-17) mg/dL Creatinine (0.52-1.04) mg/dL Estimated GFR (>60) mL/min BUN/Creatinine Ratio (6-22) Glucose (80-110) mg/dL Calcium (8.4-10.2) mg/dL Total Bilirubin (0.2-1.3) mg/dL AST (14-36) IU/L ALT (<35) IU/L Alkaline Phosphatase (38-126) U/L Total Creatine Kinase 72 (30-135) U/L Troponin I < 0.012 (0.01-0.034) ng/mL Total Protein (6.3-8.2) g/dL Albumin (3.5-5.0) g/dL Globulin (1.7-4.1) g/dL Albumin/Globulin Ratio (1.0-2.8) Lipase (23-300) U/L Chlamy pneumoniae PCR (Not Detect) Adenovirus (PCR) (Not Detect) B. pertussis DNA (PCR) (Not Detecte) B.parapertussis DNA PCR (Not Detecte) Coronavirus OC43 (PCR) (Not Detect) Coronavirus HKU1 (PCR) (Not Detect) Coronavirus 229E (PCR) (Not Detect) SARS-CoV-2 (PCR) (Not Detecte) Coronavirus NL63 (PCR) (Not Detect) Human Metapneumovir PCR (Not Detect) Influenza Type A (PCR) (Not Detect) Influenza Type B (PCR) (Not Detect) M. pneumoniae (PCR) (Not Detect) Parainfluenza 1 (PCR) (Not Detect) Parainfluenza 2 (PCR) (Not Detect) Parainfluenza 3 (PCR) (Not Detect) Parainfluenza 4 (PCR) (Not Detect) RSV (PCR) (Not Detect) Entero/Rhino (PCR) (Not Detect) Urine Dip Bedside Urine Glucose Negative Bedside Urine Bilirubin - Negative Bedside Urine Ketone - Negative Urine Specific [place] 1.005 Bedside Urine Occult Blood - Negative Bedside Urine pH 6.0 Bedside Urine Protein - Negative Bedside Urine Urobilinogen - Negative Bedside Urine Nitrite - Negative Bedside Urine Leukocytes - Negative Esterase Point of care testing: Urine Dip Bedside Urine Glucose Negative Bedside Urine Bilirubin - Negative Bedside Urine Ketone - Negative Urine Specific [place] 1.005 Bedside Urine Occult Blood - Negative Bedside Urine pH 6.0 Bedside Urine Protein - Negative Bedside Urine Urobilinogen - Negative Bedside Urine Nitrite - Negative Bedside Urine Leukocytes - Negative Esterase Imaging Data Chest x-ray: Radiologist's Impression: PROCEDURE:? XR CHEST 1V ? INDICATIONS:? SOB ? TECHNIQUE:? One view of the chest was acquired.? ? COMPARISON:? [facility], CR, XR CHEST 1V, 08/05/2022, 7:02.? [facility], CR, XR CHEST 1V, 06/28/2022, 13:05. ? FINDINGS:? ? Surgical changes and devices:? None.? ? Lungs and pleura:? Low lung volumes.? No dense consolidation or pleural effusion. ? Mediastinum:? Borderline cardiomegaly. ? Bones and chest wall:? Degenerative changes. ? IMPRESSION:? No acute radiographic abnormality.? Low lung volumes, limiting evaluation. ECG Data Attestation: I personally reviewed and interpreted this ECG as follows: Interpretation: Sinus rhythm Ventricular rate is 74 Normal axis Normal QRS Normal QTC No ST T wave changes MDM Narrative Medical decision making narrative: Patient has a low risk heart score. Chest x-ray, troponin, EKG unremarkable. Patient not clinically in heart failure. She is afebrile. No signs of pneumonia. Electrolytes unremarkable. Not anemic. No indication for ant ibiotics. No indication for admission to the hospital. Will discharge patient home with instructions that she needs to contact her primary doctor and also her receptionist telephone operator for follow-up. Discharge Plan Departure Patient Disposition: Home Clinical Impression: Chest pain, Shortness of breath Instructions: DI for Chest Pain Activity Restrictions/Additional Instructions: I do recommend you continue to take all of your medications as directed. I do recommend you contact your primary doctor for a follow-up. Also recommend you contact your receptionist telephone operator for follow-up. Return to the emergency department for new symptoms Prescriptions: No Action Spiriva with HandiHaler 18 mcg capsule, w/inhalation device 1 cap inhalation DAILY Rx Instructions: puncture 1 cap using device; one dose = 2 inhalations pramipexole 0.75 mg tablet 0.75 mg PO BEDTIME ibuprofen 200 mg tablet 800 mg PO DAILY gabapentin 600 mg tablet 600 mg PO TID Patient Comments: 0700, 1400, 2100 acetaminophen 500 mg capsule 1,000 mg PO Q6H PRN (Reason: Pain (Scale Score 1-3)) valsartan 40 mg tablet 20 mg PO BID metoprolol succinate 25 mg tablet extended release 24 hr 25 mg PO BID torsemide 20 mg tablet 80 mg PO BID Patient Comments: TAKE 2 TABLETS BY MOUTH IN THE MORNING AND 1 TABLET AT NIGHT fluticasone propionate 50 mcg/actuation spray,suspension 1 spray intranasal DAILY Rx Instructions: administer into each nostril methocarbamol 750 mg tablet 750 mg PO TID PRN (Reason: Spasms) Qty: 90 3RF Rx Instructions: PRN epinephrine 0.3 mg/0.3 mL auto-injector 0.3 mg IM ONCE PRN (Reason: Allergic Reaction) Qty: 1 11RF sumatriptan succinate 100 mg tablet See Rx Instructions .ROUTE .COMPLEX Qty: 14 0RF Dose Instruction: TAKE 1 TABLET BY MOUTH ONCE AT ONSET OF MIGRAINE HEADACHE. MAY REPEAT IN 2 HOURS IF NO RELIEF. MAX OF 2 TABLETS PER DAY. Rx Instructions: TAKE 1 TABLET BY MOUTH ONCE AT ONSET OF MIGRAINE HEADACHE. MAY REPEAT IN 2 HOURS IF NO RELIEF. MAX OF 2 TABLETS PER DAY. diazepam 5 mg tablet 5 mg PO BID PRN (Reason: anxiety) 30 Days Qty: 60 0RF Trintellix 20 mg tablet 20 mg PO DAILY 30 Days Qty: 30 2RF quetiapine 25 mg tablet 25 mg PO BEDTIME MDD 50MG Qty: 40 0RF Rx Instructions: OK to repeat dose if not sleeping within 1 hour lidocaine 5 % Ointment 1 applic TOPICAL TID PRN (Reason: pain) ketotifen fumarate [Zaditor] 0.025 % (0.035 %) Drops 1 drp OPHTHALMIC (EYE) DAILY potassium chloride 20 mEq tablet extended release 40 meq PO DAILY Qty: 20 0RF sennosides [senna] 8.6 mg Tablet 17.2 mg PO BEDTIME PRN (Reason: Constipation) Rx Instructions: 1-2 tabs diphenhydramine HCl [Benadryl] 25 mg Capsule 75 mg PO DAILY PRN (Reason: Allergy Symptoms) omeprazole 40 mg Capsule,Delayed Release(Dr/Ec) 40 mg PO BID epinephrine [EpiPen 2-Juliocesar] 0.3 mg/0.3 mL auto-injector 0.3 mg IM Q5-15M PRN (Reason: anaphylaxis) Qty: 2 2RF Rx Instructions: do not exceed 3 doses per episode budesonide-formoterol [Symbicort] 80-4.5 mcg/actuation HFA aerosol inhaler 1 puff inhalation BID Qty: 10.2 0RF methylprednisolone 4 mg tablet 4 mg PO PRN PRN (Reason: Shortness Of Breath) hydrocodone-acetaminophen 5-325 mg tablet 1 tab PO Q4-6H PRN (Reason: pain) Qty: 20 0RF dextromethorphan-guaifenesin 5-50 mg/5 mL liquid 20 ml PO Q4-6H PRN (Reason: cough) Qty: 118 0RF (DME) Xeroform Petrolatum Dressing 5 X 9 bandage See Rx Instructions .Route Qty: 50 0RF Rx Instructions: As directed Referrals: Casimiro Parks MD [Primary Care Provider] - Stand Alone Forms: Patient Portal/API
[2022-10-06 18:37] LABS: Alanine Aminotransferase 26 IU/L (<35); Albumin 4.8 g/dL (3.5-5.0); Albumin Globulin Ratio 1.2 (1.0-2.8); Alkaline Phosphatase 132 U/L (38-126); Aspartate Aminotransferase 34 IU/L (14-36); Bilirubin Total 0.4 mg/dL (0.2-1.3); Blood Urea Nitrogen 29 mg/dL (7-17); Calcium 9.7 mg/dL (8.4-10.2); Carbon Dioxide 27 mmol/L (22-32); Chloride 97 mmol/L (98-107); Creatine Kinase 96 U/L (30-135); Estimated Glomerular Filt Rate 52 mL/min (>60); Globulin 4.1 g/dL (1.7-4.1); Glucose 113 mg/dL (80-110); HEMOLYSIS < 15 (0-50); Lipase 127 U/L (23-300); Potassium 3.2 mmol/L (3.4-5.1); Sodium 136 mmol/L (137-145); Total Protein 8.9 g/dL (6.3-8.2)
[2022-10-06 18:49] LABS: Troponin I < 0.012 ng/mL (0.01-0.034)
--- NOTE | 2022-10-06 19:00 | PC.NURSE ---
pt up to commode with stand by assist, pt fell gently back onto commode after removing pants. second nurse utilized for getting up off commode and back into bed.
[2022-10-06] MEDS: SODIUM CHLORIDE 0.9% 1,000 ML 1000 ML IV (19:04)
[2022-10-06] MEDS: ACETAMINOPHEN 325 MG TABLET 650 MG PO (19:23)
[2022-10-06] MEDS: OXYCODONE/ACETAMINOPHEN 5/325 TABLET 1 TAB PO (19:24)
[2022-10-06] MEDS: IBUPROFEN 400 MG TABLET 800 MG PO (19:24)
[2022-10-06 20:11] LABS: Adenovirus Not Detected (Not Detect); B. parapertussis Not Detected (Not Detecte); Bordetella pertussis Not Detected (Not Detecte); Chlamydophila pneumoniae Not Detected (Not Detect); Coronavirus 229E Not Detected (Not Detect); Coronavirus HKU1 Not Detected (Not Detect); Coronavirus NL 63 Not Detected (Not Detect); Coronavirus OC43 Not Detected (Not Detect); Human Metapneumovirus Not Detected (Not Detect); Human Rhinovirus/Enterovirus Not Detected (Not Detect); Influenza A Not Detected (Not Detect); Influenza B Not Detected (Not Detect); Mycoplasma pneumoniae Not Detected (Not Detect); Parainfluenza Virus 1 Not Detected (Not Detect); Parainfluenza Virus 2 Not Detected (Not Detect); Parainfluenza Virus 3 Not Detected (Not Detect); Parainfluenza Virus 4 Not Detected (Not Detect); Respiratory Syncytial Virus Not Detected (Not Detect); SARS- CoV-2 Not Detected (Not Detecte)
[2022-10-06 21:20] LABS: Creatine Kinase 72 U/L (30-135)
[2022-10-06 21:33] LABS: Troponin I < 0.012 ng/mL (0.01-0.034)
== END 2022-10-06 22:45 | disposition home or self-care (01) ==
PROVIDERS: Emergency Provider Emergency Medicine; PCP Internal Medicine
DX: R07.9 Chest pain, unspecified (principal); R06.02 Shortness of breath; Z79.899 Other long term (current) drug therapy; Z20.822 Contact with and (suspected) exposure to COVID-19
CPT/HCPCS: 36415; 71045; 80053; 81003; 82550; 83690; 84484; 85025; 87633; 93005; 99284

== ENCOUNTER → 2022-10-10 12:59 | Outpatient (CLI) | payer OTHER, MEDICAID, SELFPAY ==
[2022-08-04 16:38] VITALS: BMI 34.9
== END ==
PROVIDERS: PCP Internal Medicine; Referring Provider Nurse Practitioner Critical Care Medicine; Visit Provider Surgery
DX: S81.812A Laceration without foreign body, left lower leg, initial encounter (principal)
CPT/HCPCS: 11042

== ENCOUNTER 2022-12-09 14:07 | Emergency (ER) | payer OTHER, MEDICAID, SELFPAY ==
[2022-08-04 16:38] VITALS: BMI 34.9
[2022-12-09 14:33] VITALS: BP 128/60; PULSE 67; RESP 18; TEMP 36.8; O2SAT 99; BMI 31.8
--- NOTE | 2022-12-09 14:39 | DI.RAD.S_ITS ---
PROCEDURE: XR KNEE LT 3V INDICATIONS: fall/pain TECHNIQUE: The 3 views of the knee were acquired. COMPARISON: [facility], CR, XR KNEE RT 3V, 07/27/2022, 13:45. FINDINGS: Bones: Partially visualized intramedullary nail fixation of the humerus. Screw fixation anchor within the medial distal femur. Osteoarthritic changes of the patellofemoral compartment with osteophyte formation. Small knee effusion. IMPRESSION: No fracture. Mild osteoarthritic changes of the knee most prominent in the patellofemoral compartment. Dictated by: Hank Olivo M.D. on 12/09/2022 at 14:41 Approved by: Hank Olivo M.D. on 12/09/2022 at 14:44
--- NOTE | 2022-12-09 14:39 | DI.RAD.S_ITS ---
PROCEDURE: XR KNEE RT 3V INDICATIONS: fall/pain TECHNIQUE: 3 views of the knee were acquired. COMPARISON: [facility], , XR KNEE RT 3V, 07/27/2022, 13:45. FINDINGS: Bones: Total knee prosthesis with patellar resurfacing without evidence of hardware complication. No fractures or dislocations. No suspicious bony lesions. Soft tissues: No joint effusion. No suspicious soft tissue calcifications. IMPRESSION: No fracture. Total knee prosthesis without evidence of hardware complication. Dictated by: Hank Olivo M.D. on 12/09/2022 at 14:44 Approved by: Hank Olivo M.D. on 12/09/2022 at 14:45
--- NOTE | 2022-12-09 14:40 | DI.RAD.S_ITS ---
PROCEDURE: XR CHEST 2V INDICATIONS: recent pneumonia TECHNIQUE: 2 views of the chest were acquired. COMPARISON: [facility], CR, XR CHEST 1 VIEW, 12/04/2022, 12:19. [facility], CR, XR CHEST 1V, 10/06/2022, 18:22. FINDINGS: Surgical changes and devices: None. Lungs and pleura: Lungs are clear. No pleural effusions or pneumothorax. Mediastinum: Mediastinal contours are normal. Heart size is normal. Bones and chest wall: No suspicious bony abnormalities. Soft tissues appear unremarkable. Partially visualized left humeral internal fixation. IMPRESSION: Resolution of previously seen opacities. Dictated by: Hank Olivo M.D. on 12/09/2022 at 14:38 Approved by: Hank Olivo M.D. on 12/09/2022 at 14:41
--- NOTE | 2022-12-09 18:22 | PC.NURSE ---
Pt was wheeled into room 5. Pt was using many swear words and dregrading all staff she came in contact with. Pt attempted to get up to the recliner without assistance and I asked her to wait a moment for me to assist her and she refused and called me a bitch and to move out of her way and walked to the recliner unassisted. Pt continued to use fowl language, I told her again that we only have one provider and that he will be with her as soon as he can and I left the room.
--- NOTE | 2022-12-09 18:52 | ED.GENADULT ---
HPI - General Adult General Chief complaint: Upper Respiratory Symptoms Stated complaint: had pneumonia nt feeling better/o/of antibiotic Time Seen by Provider: 12/09/22 18:01 Source: patient Mode of arrival: Ambulatory History of Present Illness HPI narrative: 59-year-old female who is here for evaluation of what she thinks is minimal improvement a pneumonia for which she was diagnosed last week. States she was placed on steroids and also Levaquin. She completed the course of this medication and states she is still feeling very congested. She also stated that she ?fell? out of an ambulance last evening and injured both of her knees. HPI is somewhat limited as the patient seems very irritated by having to answer questions related to her presentation today. She is upset that she is had to wait in order to be seen. Related Data Home Medications Medication Instructions Recorded Confirmed sennosides 8.6 mg tablet (senna) 17.2 mg PO BEDTIME PRN Constipation 09/20/18 08/04/22 diphenhydramine HCl 25 mg capsule 75 mg PO DAILY PRN Allergy Symptoms 10/26/19 08/04/22 (Benadryl) omeprazole 40 mg capsule,delayed 40 mg PO BID 02/10/20 08/04/22 release lidocaine 5 % topical ointment 1 applic topical TID PRN pain 02/24/20 08/04/22 ketotifen fumarate 0.025 % (0.035 1 drp ophthalmic (eye) DAILY 03/02/20 08/04/22 %) eye drops (Zaditor) fluticasone propionate 50 1 spray intranasal DAILY 04/02/20 08/04/22 mcg/actuation nasal spray,suspension metoprolol succinate 25 mg 25 mg PO BID 01/27/21 08/04/22 tablet,extended release 24 hr valsartan 40 mg tablet 20 mg PO BID 01/27/21 08/04/22 acetaminophen 500 mg capsule 1,000 mg PO Q6H PRN Pain (Scale 04/11/21 08/04/22 Score 1-3) gabapentin 600 mg tablet 600 mg PO TID 04/11/21 08/04/22 ibuprofen 200 mg tablet 800 mg PO DAILY 04/11/21 08/04/22 pramipexole 0.75 mg tablet 0.75 mg PO BEDTIME 04/11/21 08/04/22 tiotropium bromide 18 mcg capsule 1 cap inhalation DAILY 04/11/21 08/04/22 with inhalation device (Spiriva with HandiHaler) torsemide 20 mg tablet 80 mg PO BID 08/19/21 08/04/22 methylprednisolone 4 mg tablet 4 mg PO PRN PRN Shortness Of Breath 08/04/22 08/04/22 Previous Rx's Medication Instructions Recorded methocarbamol 750 mg tablet 750 mg PO TID PRN Spasms #90 tabs 09/29/19 epinephrine 0.3 mg/0.3 mL 0.3 mg (0.3 mL) IM ONCE PRN 01/01/20 injection, auto-injector Allergic Reaction #1 ea sumatriptan succinate 100 mg tablet See Rx Instructions .Route 07/26/21 .COMPLEX #14 tabs potassium chloride 20 mEq 40 meq (2 x 20 mEq) PO DAILY #20 11/23/21 tablet,extended release tabs diazepam 5 mg tablet 5 mg PO BID PRN anxiety 30 days 05/25/22 #60 tabs budesonide-formoterol HFA 80 1 puff inhalation BID #10.2 grams 06/28/22 mcg-4.5 mcg/actuation aerosol inhaler (Symbicort) epinephrine 0.3 mg/0.3 mL 0.3 mg (0.3 mL) IM Q5-15M PRN 06/28/22 injection, auto-injector (EpiPen anaphylaxis #2 ea 2-Juliocesar) bismuth tribrom-petrolatum,wh 5 X #50 ea 08/05/22 9 bandage (Xeroform Petrolatum Dressing) dextromethorphan 5 mg-guaifenesin 20 ml PO Q4-6H PRN cough #118 mL 08/05/22 50 mg/5 mL oral liquid hydrocodone 5 mg-acetaminophen 325 1 tab PO Q4-6H PRN pain #20 tabs 08/05/22 mg tablet Trintellix 20 mg tablet 20 mg PO DAILY 30 days #30 tabs 08/23/22 (vortioxetine) quetiapine 25 mg tablet 25 mg PO BEDTIME #40 tabs 09/18/22 Allergies Allergy/AdvReac Type Severity Reaction Status Date / Time Iodinated Contrast Media Allergy Severe Difficulty Verified 09/12/22 18:37 Breathing iodine Allergy Severe Difficulty Verified 09/12/22 18:37 Breathing latex Allergy Severe Rash Verified 09/12/22 18:37 morphine [MORPHINE] Allergy Severe Anaphylaxis Verified 09/12/22 18:37 Penicillins [PENICILLINS] Allergy Severe Anaphylaxis Verified 09/12/22 18:37 Sulfa (Sulfonamide Allergy Severe RASH Verified 09/12/22 18:37 Antibiotics) [SULFA (SULFONAMIDE ANTIBIOTICS)] azithromycin Allergy Intermediate Rash Verified 09/12/22 18:37 [From ZITHROMAX Z-JULIOCESAR] cefuroxime [From Ceftin] Allergy Intermediate Rash Verified 09/12/22 18:37 sulfamethoxazole Allergy Intermediate RASH Verified 09/12/22 18:37 [From SEPTRA] trimethoprim [From SEPTRA] Allergy Intermediate RASH Verified 09/12/22 18:37 ciprofloxacin [From Cipro] Allergy Pt does Verified 09/12/22 18:37 not remember reaction Corticosteroids Allergy Swelling Verified 09/12/22 18:37 (Glucocorticoids) of Lip/Tongue/Throat cephalexin [From Keflex] AdvReac Severe Fever, Verified 09/12/22 18:37 Asthma, Tachycardia prednisone AdvReac Severe nausea and Verified 09/12/22 18:37 feels very weak, and axious verapamil AdvReac Intermediate Asthma Verified 09/12/22 18:37 symptoms zonisamide AdvReac Intermediate Asthma Verified 09/12/22 18:37 symptoms Review of Systems Constitutional Constitutional: Reports system reviewed and no additional complaints, except as documented Cardiovascular Cardiovascular: Reports system reviewed and no additional complaints, except as documented Respiratory Respiratory: Reports system reviewed and no additional complaints, except as documented Integumentary/Breasts Skin/Breast: Reports system reviewed and no additional complaints, except as documented Patient History Medical History Venous insufficiency (chronic) (peripheral) Hiatal hernia Femur fracture, left Chronic cough Asthma Depression Anxiety Fractures Fibromyalgia Chronic back pain Anemia Recurrent sinusitis GERD (gastroesophageal reflux disease) Surgical History Anesthesia History of eye surgery (~1973) History of foot surgery History of hysterectomy (~1979) History of shoulder surgery (~2011) History of tonsillectomy (~1975) Hx of bilateral cataract extraction Family History Mother Heart disease Sister Heart disease Social History marital status: number of children: 1 household members: none lives independently: Yes caregiver/support person: Yes (3 afternoons per week) pets and animals: Yes occupational status: disabled Smoking Status: Never smoker alcohol intake: current substance use type: does not use Smoking Status: Never smoker alcohol intake frequency: holidays/special occasions only Substance Use Type: marijuana Exam Initial Vital Signs Initial Vital Signs: Vital Signs Temperature 98.2 F 12/09/22 14:33 Pulse Rate 67 12/09/22 14:33 Respiratory Rate 18 12/09/22 14:33 Blood Pressure 128/60 12/09/22 14:33 Pulse Oximetry 99 12/09/22 14:33 Oxygen Delivery Method Room Air 12/09/22 14:33 Const General: No ill appearing HENMT Head: normal to inspection Resp Effort & Inspection: normal respiratory effort Cardio Rate: regular rate Neuro Gait: normal gait Extrem Other: No gross deformities, patient is able to ambulate Course Orders Ordered: ED Orders 12/09/22 14:38 Consult to ENVIRONMENTAL PERMITTING SPECIALIST - Sr. Manager Marketing Stat 12/09/22 14:39 XR knee LT 3V Stat XR knee RT 3V Stat 12/09/22 14:40 Chest [XR chest 2V] Stat Vital Signs Vital signs: Vital Signs - 8 hr 12/09/22 14:33 Temperature 98.2 F Pulse Rate 67 Respiratory Rate 18 Blood Pressure 128/60 Pulse Oximetry 99 Oxygen Delivery Method Room Air Medical Decision Making Imaging Data Extremity x-ray #1: Radiologist's Impression: PROCEDURE: XR KNEE LT 3V INDICATIONS: fall/pain TECHNIQUE: The 3 views of the knee were acquired. COMPARISON: [facility], XR KNEE RT 3V, 07/27/2022, 13:45. FINDINGS: Bones: Partially visualized intramedullary nail fixation of the humerus. Screw fixation anchor within the medial distal femur. Osteoarthritic changes of the patellofemoral compartment with osteophyte formation. Small knee effusion. IMPRESSION: No fracture. Mild osteoarthritic changes of the knee most prominent in the patellofemoral compartment. Extremity x-ray #2: Radiologist's Impression: PROCEDURE: XR KNEE RT 3V INDICATIONS: fall/pain TECHNIQUE: 3 views of the knee were acquired. COMPARISON: [facility], CR, XR KNEE RT 3V, 07/27/2022, 13:45. FINDINGS: Bones: Total knee prosthesis with patellar resurfacing without evidence of hardware complication. No fractures or dislocations. No suspicious bony lesions. Soft tissues: No joint effusion. No suspicious soft tissue calcifications. IMPRESSION: No fracture. Total knee prosthesis without evidence of hardware complication. Chest x-ray: Radiologist's Impression: PROCEDURE: XR CHEST 2V INDICATIONS: recent pneumonia TECHNIQUE: 2 views of the chest were acquired. COMPARISON: [facility], CR, XR CHEST 1 VIEW, 12/04/2022, 12:19. [facility], CR, XR CHEST 1V, 10/06/2022, 18:22. FINDINGS: Surgical changes and devices: None. Lungs and pleura: Lungs are clear. No pleural effusions or pneumothorax. Mediastinum: Mediastinal contours are normal. Heart size is normal. Bones and chest wall: No suspicious bony abnormalities. Soft tissues appear unremarkable. Partially visualized left humeral internal fixation. IMPRESSION: Resolution of previously seen opacities. MDM Narrative Medical decision making narrative: X-ray show no acute fractures. Chest x-ray shows resolution of prior pneumonia. There was no indication for further antibiotics. No indication for further steroids. Patient is very upset as to how long she had to wait. She was very rude to the staff telling the nurse then discharged her ? you are a horrible nurse?. There was no indication for admission to the hospital. Discharge Plan Departure Patient Disposition: Home Clinical Impression: Chest congestion, Bilateral knee pain Activity Restrictions/Additional Instructions: Your x-rays of the knees today did not show any signs of fractures. You can walk as tolerated. The x-ray of your chest today shows resolution of the prior pneumonia. There was no indication for further antibiotics or steroids. Prescriptions: No Action Spiriva with HandiHaler 18 mcg capsule, w/inhalation device 1 cap inhalation DAILY Rx Instructions: puncture 1 cap using device; one dose = 2 inhalations pramipexole 0.75 mg tablet 0.75 mg PO BEDTIME ibuprofen 200 mg tablet 800 mg PO DAILY gabapentin 600 mg tablet 600 mg PO TID Patient Comments: 0700, 1400, 2100 acetaminophen 500 mg capsule 1,000 mg PO Q6H PRN (Reason: Pain (Scale Score 1-3)) valsartan 40 mg tablet 20 mg PO BID metoprolol succinate 25 mg tablet extended release 24 hr 25 mg PO BID torsemide 20 mg tablet 80 mg PO BID Patient Comments: TAKE 2 TABLETS BY MOUTH IN THE MORNING AND 1 TABLET AT NIGHT fluticasone propionate 50 mcg/actuation spray,suspension 1 spray intranasal DAILY Rx Instructions: administer into each nostril methocarbamol 750 mg tablet 750 mg PO TID PRN (Reason: Spasms) Qty: 90 3RF Rx Instructions: PRN epinephrine 0.3 mg/0.3 mL auto-injector 0.3 mg IM ONCE PRN (Reason: Allergic Reaction) Qty: 1 11RF sumatriptan succinate 100 mg tablet See Rx Instructions .ROUTE .COMPLEX Qty: 14 0RF Dose Instruction: TAKE 1 TABLET BY MOUTH ONCE AT ONSET OF MIGRAINE HEADACHE. MAY REPEAT IN 2 HOURS IF NO RELIEF. MAX OF 2 TABLETS PER DAY. Rx Instructions: TAKE 1 TABLET BY MOUTH ONCE AT ONSET OF MIGRAINE HEADACHE. MAY REPEAT IN 2 HOURS IF NO RELIEF. MAX OF 2 TABLETS PER DAY. diazepam 5 mg tablet 5 mg PO BID PRN (Reason: anxiety) 30 Days Qty: 60 0RF Trintellix 20 mg tablet 20 mg PO DAILY 30 Days Qty: 30 2RF quetiapine 25 mg tablet 25 mg PO BEDTIME MDD 50MG Qty: 40 0RF Rx Instructions: OK to repeat dose if not sleeping within 1 hour lidocaine 5 % Ointment 1 applic TOPICAL TID PRN (Reason: pain) ketotifen fumarate [Zaditor] 0.025 % (0.035 %) Drops 1 drp OPHTHALMIC (EYE) DAILY potassium chloride 20 mEq tablet extended release 40 meq PO DAILY Qty: 20 0RF sennosides [senna] 8.6 mg Tablet 17.2 mg PO BEDTIME PRN (Reason: Constipation) Rx Instructions: 1-2 tabs diphenhydramine HCl [Benadryl] 25 mg Capsule 75 mg PO DAILY PRN (Reason: Allergy Symptoms) omeprazole 40 mg Capsule,Delayed Release(Dr/Ec) 40 mg PO BID epinephrine [EpiPen 2-Juliocesar] 0.3 mg/0.3 mL auto-injector 0.3 mg IM Q5-15M PRN (Reason: anaphylaxis) Qty: 2 2RF Rx Instructions: do not exceed 3 doses per episode budesonide-formoterol [Symbicort] 80-4.5 mcg/actuation HFA aerosol inhaler 1 puff inhalation BID Qty: 10.2 0RF methylprednisolone 4 mg tablet 4 mg PO PRN PRN (Reason: Shortness Of Breath) hydrocodone-acetaminophen 5-325 mg tablet 1 tab PO Q4-6H PRN (Reason: pain) Qty: 20 0RF dextromethorphan-guaifenesin 5-50 mg/5 mL liquid 20 ml PO Q4-6H PRN (Reason: cough) Qty: 118 0RF (DME) Xeroform Petrolatum Dressing 5 X 9 bandage See Rx Instructions .Route Qty: 50 0RF Rx Instructions: As directed Referrals: Casimiro Parks MD [Primary Care Provider] - Stand Alone Forms: Patient Portal/API
== END 2022-12-09 19:03 | disposition home or self-care (01) ==
PROVIDERS: Emergency Provider Emergency Medicine; PCP Internal Medicine
DX: R09.89 Other specified symptoms and signs involving the circulatory and respiratory systems (principal); M25.562 Pain in left knee; M25.561 Pain in right knee; W18.30XA Fall on same level, unspecified, initial encounter
CPT/HCPCS: 71046; 73562; 99281; 99283

== ENCOUNTER 2022-12-23 11:05 | Emergency (ER) | payer OTHER, MEDICAID, SELFPAY ==
[2022-08-04 16:38] VITALS: BMI 34.9
[2022-12-23] VITALS (7 sets, daily range): BP systolic 121–143; BP diastolic 59–66; PULSE 72–91; RESP 20; TEMP 36.8; O2SAT 93–98; BMI 31.8
--- NOTE | 2022-12-23 11:13 | DI.RAD.S_ITS ---
PROCEDURE: XR CHEST 1V INDICATIONS: cough TECHNIQUE: One view of the chest was acquired. COMPARISON: [facility], CR, XR CHEST 2V, 12/09/2022, 14:44. FINDINGS: Surgical changes and devices: Left humeral and lower lumbar spine instrumentation Lungs and pleura: Lungs are clear. No pleural effusions or pneumothorax. Mediastinum: Mediastinal contours appear normal. Heart size is normal. Bones and chest wall: No suspicious bony lesions. Overlying soft tissues appear unremarkable. IMPRESSION: No acute cardiopulmonary findings Approved by: Carlton Ashley M.D. on 12/23/2022 at 10:40
--- NOTE | 2022-12-23 11:40 | ED_ITS ---
HPI - SOB/Dyspnea <Yo Griffith PA-C - Last Filed: 12/23/22 15:16> General Chief Complaint: Shortness of Breath/Dyspnea Stated Complaint: pneumonia T-4 Time Seen by Provider: 12/23/22 11:40 Source: patient Mode of arrival: Ambulatory Limitations: no limitations History of Present Illness HPI Narrative: This is a 67-year-old female presents emergency department due to mildly increased shortness of breath and fatigue for the last 4 days since she was released from the [facility]. Please see the record review below regarding the course of the hospitalization. In brief she was admitted due to Tylenol overdose shock and hypoxic respiratory failure. Was also found have bilateral pneumonia. She was hospitalized for a total of 7 days and discharged 4 days ago. She states that she is continued to feel some shortness breath as well as fatigue. Denies any significant chest pain, nausea, vomiting, abdominal pain, back pain, or any other concerning signs or symptoms. History of History of pulmonary hypertension, CAD, congestive heart failure, hypertension, fibromyalgia, asthma, COPD, depression, anxiety Related Data Home Medications Medication Instructions Recorded Confirmed sennosides 8.6 mg tablet (senna) 17.2 mg PO BEDTIME PRN Constipation 09/20/18 08/04/22 diphenhydramine HCl 25 mg capsule 75 mg PO DAILY PRN Allergy Symptoms 10/26/19 08/04/22 (Benadryl) omeprazole 40 mg capsule,delayed 40 mg PO BID 02/10/20 08/04/22 release lidocaine 5 % topical ointment 1 applic topical TID PRN pain 02/24/20 08/04/22 ketotifen fumarate 0.025 % (0.035 1 drp ophthalmic (eye) DAILY 03/02/20 08/04/22 %) eye drops (Zaditor) fluticasone propionate 50 1 spray intranasal DAILY 04/02/20 08/04/22 mcg/actuation nasal spray,suspension metoprolol succinate 25 mg 25 mg PO BID 01/27/21 08/04/22 tablet,extended release 24 hr valsartan 40 mg tablet 20 mg PO BID 01/27/21 08/04/22 acetaminophen 500 mg capsule 1,000 mg PO Q6H PRN Pain (Scale 04/11/21 08/04/22 Score 1-3) gabapentin 600 mg tablet 600 mg PO TID 04/11/21 08/04/22 ibuprofen 200 mg tablet 800 mg PO DAILY 04/11/21 08/04/22 pramipexole 0.75 mg tablet 0.75 mg PO BEDTIME 04/11/21 08/04/22 tiotropium bromide 18 mcg capsule 1 cap inhalation DAILY 04/11/21 08/04/22 with inhalation device (Spiriva with HandiHaler) torsemide 20 mg tablet 80 mg PO BID 08/19/21 08/04/22 methylprednisolone 4 mg tablet 4 mg PO PRN PRN Shortness Of Breath 08/04/22 08/04/22 Previous Rx's Medication Instructions Recorded methocarbamol 750 mg tablet 750 mg PO TID PRN Spasms #90 tabs 09/29/19 epinephrine 0.3 mg/0.3 mL 0.3 mg (0.3 mL) IM ONCE PRN 01/01/20 injection, auto-injector Allergic Reaction #1 ea sumatriptan succinate 100 mg tablet See Rx Instructions .Route 07/26/21 .COMPLEX #14 tabs potassium chloride 20 mEq 40 meq (2 x 20 mEq) PO DAILY #20 11/23/21 tablet,extended release tabs diazepam 5 mg tablet 5 mg PO BID PRN anxiety 30 days 05/25/22 #60 tabs budesonide-formoterol HFA 80 1 puff inhalation BID #10.2 grams 06/28/22 mcg-4.5 mcg/actuation aerosol inhaler (Symbicort) epinephrine 0.3 mg/0.3 mL 0.3 mg (0.3 mL) IM Q5-15M PRN 06/28/22 injection, auto-injector (EpiPen anaphylaxis #2 ea 2-Juliocesar) bismuth tribrom-petrolatum,wh 5 X #50 ea 08/05/22 9 bandage (Xeroform Petrolatum Dressing) dextromethorphan 5 mg-guaifenesin 20 ml PO Q4-6H PRN cough #118 mL 08/05/22 50 mg/5 mL oral liquid hydrocodone 5 mg-acetaminophen 325 1 tab PO Q4-6H PRN pain #20 tabs 08/05/22 mg tablet Trintellix 20 mg tablet 20 mg PO DAILY 30 days #30 tabs 08/23/22 (vortioxetine) quetiapine 25 mg tablet 25 mg PO BEDTIME #40 tabs 09/18/22 Allergies Allergy/AdvReac Type Severity Reaction Status Date / Time Iodinated Contrast Media Allergy Severe Difficulty Verified 12/23/22 11:11 Breathing iodine Allergy Severe Difficulty Verified 12/23/22 11:11 Breathing latex Allergy Severe Rash Verified 12/23/22 11:11 morphine [MORPHINE] Allergy Severe Anaphylaxis Verified 12/23/22 11:11 Penicillins [PENICILLINS] Allergy Severe Anaphylaxis Verified 12/23/22 11:11 Sulfa (Sulfonamide Allergy Severe RASH Verified 12/23/22 11:11 Antibiotics) [SULFA (SULFONAMIDE ANTIBIOTICS)] azithromycin Allergy Intermediate Rash Verified 12/23/22 11:11 [From ZITHROMAX Z-JULIOCESAR] cefuroxime [From Ceftin] Allergy Intermediate Rash Verified 12/23/22 11:11 sulfamethoxazole Allergy Intermediate RASH Verified 12/23/22 11:11 [From SEPTRA] trimethoprim [From SEPTRA] Allergy Intermediate RASH Verified 12/23/22 11:11 ciprofloxacin [From Cipro] Allergy Pt does Verified 12/23/22 11:11 not remember reaction Corticosteroids Allergy Swelling Verified 12/23/22 11:11 (Glucocorticoids) of Lip/Tongue/Throat cephalexin [From Keflex] AdvReac Severe Fever, Verified 12/23/22 11:11 Asthma, Tachycardia prednisone AdvReac Severe nausea and Verified 12/23/22 11:11 feels very weak, and axious verapamil AdvReac Intermediate Asthma Verified 12/23/22 11:11 symptoms zonisamide AdvReac Intermediate Asthma Verified 12/23/22 11:11 symptoms Review of Systems <Yo Griffith PA-C - Last Filed: 12/23/22 15:16> Review of Systems Narrative: GENERAL: Denies chills, fatigue, malaise, fever, sweats. HEENT: Denies sinus pain, ear pain, sore throat, difficulty swallowing, dizziness. RESPIRATORY: Denies dyspnea, cough, wheezing, hemoptysis, sputum. CARDIOVASCULAR: Denies chest pain, palpitations, orthopnea, edema, GASTROINTESTINAL: Denies nausea, vomiting, abdominal pain, diarrhea, constipation, melena. : Denies dysuria, frequency, incontinence, hematuria, urinary retention. MUSCULOSKELETAL: denies weakness, joint pain, or bony pain SKIN: Denies rash, skin lesions, or other NEUROLOGIC: Denies weakness, headache, numbness, change in speech, confusion, seizures, incoordination. PSYCHIATRIC: No concerning psychosocial issues. 12 point review of systems is negative except for those stated above Patient History <Yo Griffith PA-C - Last Filed: 12/23/22 15:16> Medical History Venous insufficiency (chronic) (peripheral) Hiatal hernia Femur fracture, left Chronic cough Asthma Depression Anxiety Fractures Fibromyalgia Chronic back pain Anemia Recurrent sinusitis GERD (gastroesophageal reflux disease) Surgical History Anesthesia History of eye surgery (~1973) History of foot surgery History of hysterectomy (~1979) History of shoulder surgery (~2011) History of tonsillectomy (~1975) Hx of bilateral cataract extraction Family History Mother Heart disease Sister Heart disease Social History marital status: number of children: 1 household members: none lives independently: Yes caregiver/support person: Yes (3 afternoons per week) pets and animals: Yes occupational status: disabled Smoking Status: Never smoker alcohol intake: current substance use type: does not use Smoking Status: Never smoker alcohol intake frequency: holidays/special occasions only Substance Use Type: marijuana Exam <Yo Griffith PA-C - Last Filed: 12/23/22 15:16> Narrative Exam Narrative: GENERAL: Well-developed patient, in mild distress. HEAD: Atraumatic. Normocephalic. EYES: Pupils equal round and reactive. Extraocular motions intact. No scleral icterus. No injection or drainage. ENT: Nose without bleeding, purulent drainage. Throat without erythema, tonsillar hypertrophy or exudate. Airway patent. NECK: Trachea midline. Non tender CARDIOVASCULAR: Regular rate and rhythm without murmurs, gallops, or rubs. RESPIRATORY: Clear to auscultation. Breath sounds equal bilaterally. No wheezes, rales, or rhonchi. GASTROINTESTINAL: Abdomen soft, non-tender, nondistended. EXTREMITIES: No edema or joint tenderness. BACK: Nontender without deformity or crepitance. No flank tenderness. NEURO: AOx3. SKIN: No rash or erythema of visible areas Initial Vital Signs Initial Vital Signs: Vital Signs Temperature 98.2 F 12/23/22 11:07 Pulse Rate 91 H 12/23/22 11:07 Respiratory Rate 20 12/23/22 11:07 Blood Pressure 125/59 L 12/23/22 11:07 Pulse Oximetry 97 12/23/22 11:07 Oxygen Delivery Method Room Air 12/23/22 11:07 <Allyssa Limon DO - Last Filed: 12/24/22 07:14> Initial Vital Signs Initial Vital Signs: Vital Signs Temperature 98.2 F 12/23/22 11:07 Pulse Rate 91 H 12/23/22 11:07 Respiratory Rate 20 12/23/22 11:07 Blood Pressure 125/59 L 12/23/22 11:07 Pulse Oximetry 97 12/23/22 11:07 Oxygen Delivery Method Room Air 12/23/22 11:07 Course <Yo Griffith PA-C - Last Filed: 12/23/22 15:16> Orders Ordered: Discontinued Medications Diphenhydramine HCl (Diphenhydramine 50 Mg/Ml Vial) 50 mg IV NOW ONE Stop: 12/23/22 12:57 Last Admin: 12/23/22 13:14 Dose: 50 mg Documented By: RAAD Methylprednisolone (Methylprednisolone 125 Mg/2 Ml Vial) 125 mg IV NOW ONE Stop: 12/23/22 12:57 Last Admin: 12/23/22 13:14 Dose: 125 mg Documented By: RAAD Vital Signs Vital signs: Vital Signs - 8 hr 12/23/22 11:07 12/23/22 13:32 12/23/22 13:33 Temperature 98.2 F Pulse Rate 91 H 79 79 Respiratory Rate 20 Blood Pressure 125/59 L Pulse Oximetry 97 98 98 Oxygen Delivery Method Room Air 12/23/22 13:33 12/23/22 14:00 12/23/22 14:00 Temperature Pulse Rate 75 Respiratory Rate Blood Pressure 122/62 121/60 Pulse Oximetry 98 Oxygen Delivery Method <Allyssa Limon DO - Last Filed: 12/24/22 07:14> Orders Ordered: Discontinued Medications Diphenhydramine HCl (Diphenhydramine 50 Mg/Ml Vial) 50 mg IV NOW ONE Stop: 12/23/22 12:57 Last Admin: 12/23/22 13:14 Dose: 50 mg Documented By: RAAD Methylprednisolone (Methylprednisolone 125 Mg/2 Ml Vial) 125 mg IV NOW ONE Stop: 12/23/22 12:57 Last Admin: 12/23/22 13:14 Dose: 125 mg Documented By: RAAD Vital Signs Vital signs: Vital Signs - 8 hr 12/23/22 11:07 12/23/22 13:32 12/23/22 13:33 Temperature 98.2 F Pulse Rate 91 H 79 79 Respiratory Rate 20 Blood Pressure 125/59 L Pulse Oximetry 97 98 98 Oxygen Delivery Method Room Air 12/23/22 13:33 12/23/22 14:00 12/23/22 14:00 Temperature Pulse Rate 75 Respiratory Rate Blood Pressure 122/62 121/60 Pulse Oximetry 98 Oxygen Delivery Method MDM - SOB/Dyspnea <Yo Griffith PA-C - Last Filed: 12/23/22 15:16> Lab Data 12/23/22 12:23 12/23/22 12:23 Labs: Lab Results 12/23/22 Range/Units 12:23 WBC 6.1 (4.5-11.0) X10^3/uL RBC 3.72 L (4.0-5.2) X10^6/uL Hgb 10.7 L (12.0-16.0) g/dL Hct 31.4 L (36-46) % MCV 84.4 (80-100) fL MCH 28.8 (26-34) PG MCHC 34.2 (30-36) % RDW 17.5 H (11.6-14.8) % Plt Count 267 (150-400) X10^3/uL Neut % (Auto) 58.0 (50-75) % Lymph % (Auto) 24.0 L (25-40) % [place] % (Auto) 10.5 (3-14) % Eos % (Auto) 5.9 H (2-4) % Baso % (Auto) 1.6 (0-2) % Neut # (Auto) 3500 (5927-9102) /uL Lymph # (Auto) 1500 (0065-5038) /uL [place] # (Auto) 600 (0-900) /uL Eos # (Auto) 400 (0-450) /uL Baso # (Auto) 100 (0-100) /uL D-Dimer 2577 H (<500) ng/ml Sodium 138 (137-145) mmol/L Potassium 5.3 H (3.4-5.1) mmol/L Chloride 105 (98-107) mmol/L Carbon Dioxide 27 (22-32) mmol/L BUN 32 H (7-17) mg/dL Creatinine 1.16 H (0.52-1.04) mg/dL Estimated GFR 51 L (>60) mL/min BUN/Creatinine Ratio 27.6 H (6-22) Glucose 109 (80-110) mg/dL Calcium 9.9 (8.4-10.2) mg/dL Total Bilirubin 0.4 (0.2-1.3) mg/dL AST 28 (14-36) IU/L ALT 27 (<35) IU/L Alkaline Phosphatase 93 (38-126) U/L Troponin I < 0.012 (0.01-0.034) ng/mL NT-Pro-B Natriuret Pep 41 (<125) pg/mL Total Protein 6.9 (6.3-8.2) g/dL Albumin 4.0 (3.5-5.0) g/dL Globulin 2.9 (1.7-4.1) g/dL Albumin/Globulin Ratio 1.4 (1.0-2.8) Imaging Data Chest x-ray: Radiologist's Impression: [address] [address] XRay Report Signed Patient: Sheryl Lennon MR#: [id number] : 1955 Acct:[id number] Age/Sex: 67 / F Date of Service: 12/23/22 Loc: ED Accession Number: [id number] Procedure: XR chest 1V Ordering Provider: Allyssa Limon D.O. PROCEDURE: XR CHEST 1V INDICATIONS: cough TECHNIQUE: One view of the chest was acquired. COMPARISON: [facility], PAULINA, XR CHEST 2V, 12/09/2022, 14:44. FINDINGS: Surgical changes and devices: Left humeral and lower lumbar spine instrumentation Lungs and pleura: Lungs are clear. No pleural effusions or pneumothorax. Mediastinum: Mediastinal contours appear normal. Heart size is normal. Bones and chest wall: No suspicious bony lesions. Overlying soft tissues appear unremarkable. IMPRESSION: No acute cardiopulmonary findings Approved by: Carlton Ashley, M.D. on 12/23/2022 at 10:40 CT scan - chest: Radiologist's Impression: [address] [address] [address] Scan Report Signed Patient: Sheryl Lennon MR#: [id number] : 1955 Acct:[id number] Age/Sex: 67 / F Date of Service: 12/23/22 Loc: ED Accession Number: [id number] Procedure: CT angio chest PE protocol Ordering Provider: Yo Griffith P.A-C PROCEDURE: CT ANGIO CHEST PE PROTOCOL INDICATIONS: Elevated d-dimer and SOB TECHNIQUE: After the administration of intravenous contrast, 2 mm thick sections acquired from the pulmonary apices to the posterior costophrenic angles. MIP reformats of the arterial vasculature were utilized. For radiation dose reduction, the following was used: automated exposure control, adjustment of mA and/or kV according to patient size. COMPARISON: [facility], CT, CT ANGIO CHEST PE PROTOCOL, 03/02/2021, 14:17. FINDINGS: Image quality: Excellent. Pulmonary arteries: Pulmonary arteries are normal in size, and demonstrate no intraluminal filling defects to suggest central pulmonary embolism. Lungs and pleura: Mild peripheral atelectasis and infiltrate noted in the right lower lobe and middle lobe. Mediastinum: Heart size is normal, without pericardial effusion. No mediastinal or hilar adenopathy. Thoracic aorta is normal in caliber and enhancement. Small hiatal hernia Bones and chest wall: Left humeral instrumentation. Normal thyroid. Abdomen: Visualized upper abdominal solid organs appear normal in the early arterial phase of enhancement. IMPRESSION: No evidence of pulmonary embolism, aortic dissection or aneurysm. Small peripheral atelectasis and or infiltrate right lower and middle lobes. Small hiatal hernia Approved by: Carlton Ashley M.D. on 12/23/2022 at 13:58 ECG Data Interpretation: EKG is normal sinus rhythm rate 77 and free of any signs of ischemia or ectopy. No ST segmental elevation or depression. No T wave inversions MDM Narrative Medical decision making narrative: MDM * differential diagnosis includes but not limited to pneumonia, COPD, URI, PE, ACS * Prior records reviewed: Patient was seen here 2 weeks ago for evaluation of what she thinks is minimal improvement of the pneumonia which was diagnosed the week prior. She was placed on steroids and Levaquin prior to coming in. Still feeling very congested. Also happened to have bilateral knee pain. History of asthma, depression, anxiety, fibromyalgia. Chest x-ray showed resolution of previously seen opacities. No further steroids or antibiotics given. Patient was recently hospitalized at [facility]. She was hospitalized for 5 days. History of pulmonary hypertension, CAD, congestive heart failure, hypertension, fibromyalgia, asthma, COPD, depression, anxiety. Patient was initially hospitalized on December 10 for shock of unclear etiology. Then elected to leave Against Medical Advice 3 days later. Then was brought back in by EMS due to altered mental status later that day. It appears that patient may have attempted suicide secondary to Tylenol overdose. Was found to have pneumonia bilateral lower lobes. This was treated during the hospitalization. * My lab interpretation: CBC showed mild anemia although this appears baseline for the the patient. No leukocytosis. Troponin within normal limits. BNP within normal limits. CMP showed mild hyperkalemia 5.3. D-dimer elevated CT PE ordered. * My imgaing interpretation: Chest x-ray unremarkable, no evidence of pneumonia. CT PE negative for pneumonia, did show mild atelectasis. * Clinical Decision Rules/Scores evaluated: None * Independent discussions with: None ED Course: This is a 67-year-old female presents emergency department due to slightly worsening shortness of breath as well as fatigue after being discharged from her hospitalization at [facility] 4 days ago. She was hospitalized for approximately a week as noted in the record review above. Due to recent hospitalization and mild shortness of breath a D-dimer was ordered which was positive. CT PE was negative for pulmonary embolism. It did show mild atelectasis which maybe the cause of the patient's slight shortness of breath. Recommended IS. Patient has a IS device. All other lab work unremarkable. CMP did show mild hyperkalemia of 5.3 but no EKG changes. Troponin within normal limits. Shared Decision Making: Discussed plan with the patient who is comfortable with the plan. Social Considerations: None Disposition: Discharged to home <Allyssa Limon DO - Last Filed: 12/24/22 07:14> Lab Data Labs: Lab Results 12/23/22 Range/Units 12:23 WBC 6.1 (4.5-11.0) X10^3/uL RBC 3.72 L (4.0-5.2) X10^6/uL Hgb 10.7 L (12.0-16.0) g/dL Hct 31.4 L (36-46) % MCV 84.4 (80-100) fL MCH 28.8 (26-34) PG MCHC 34.2 (30-36) % RDW 17.5 H (11.6-14.8) % Plt Count 267 (150-400) X10^3/uL Neut % (Auto) 58.0 (50-75) % Lymph % (Auto) 24.0 L (25-40) % [place] % (Auto) 10.5 (3-14) % Eos % (Auto) 5.9 H (2-4) % Baso % (Auto) 1.6 (0-2) % Neut # (Auto) 3500 (0226-1670) /uL Lymph # (Auto) 1500 (9829-4435) /uL [place] # (Auto) 600 (0-900) /uL Eos # (Auto) 400 (0-450) /uL Baso # (Auto) 100 (0-100) /uL D-Dimer 2577 H (<500) ng/ml Sodium 138 (137-145) mmol/L Potassium 5.3 H (3.4-5.1) mmol/L Chloride 105 (98-107) mmol/L Carbon Dioxide 27 (22-32) mmol/L BUN 32 H (7-17) mg/dL Creatinine 1.16 H (0.52-1.04) mg/dL Estimated GFR 51 L (>60) mL/min BUN/Creatinine Ratio 27.6 H (6-22) Glucose 109 (80-110) mg/dL Calcium 9.9 (8.4-10.2) mg/dL Total Bilirubin 0.4 (0.2-1.3) mg/dL AST 28 (14-36) IU/L ALT 27 (<35) IU/L Alkaline Phosphatase 93 (38-126) U/L Troponin I < 0.012 (0.01-0.034) ng/mL NT-Pro-B Natriuret Pep 41 (<125) pg/mL Total Protein 6.9 (6.3-8.2) g/dL Albumin 4.0 (3.5-5.0) g/dL Globulin 2.9 (1.7-4.1) g/dL Albumin/Globulin Ratio 1.4 (1.0-2.8) ECG Data Interpretation: EKG is normal sinus rhythm rate 77 and free of any signs of ischemia or ectopy. No ST segmental elevation or depression. No T wave inversions Ashly sinus rhythm rate 77 WI 46 QRS 80 QTC 414 T-wave inversions noted in lead [address] changes elevation no depression similar to previous EKGs Discharge Plan Departure Patient Disposition: Home Clinical Impression: Atelectasis Activity Restrictions/Additional Instructions: Thank you for coming to the [facility] Emergency Department today. As we discussed your lab work and workup today was reassuring. Your chest x-ray showed no evidence of pneumonia. Your CT of your lungs showed no evidence of any kind pneumonia or blood clot. It did show something called atelectasis as we discussed. Your lab work today was also reassuring. There was no evidence of infection. The EKG and blood work we took today to check for a ?heart attack? were also negative. I hope you feel better soon. Please follow up with your primary care provider within a week if your symptoms continue. If you do not have a primary care provider please contact the [facility] Resource line at [phone]. They will ask some questions about your medical history and help you get set up with a provider in the community. Prescriptions: No Action Spiriva with HandiHaler 18 mcg capsule, w/inhalation device 1 cap inhalation DAILY Rx Instructions: puncture 1 cap using device; one dose = 2 inhalations pramipexole 0.75 mg tablet 0.75 mg PO BEDTIME ibuprofen 200 mg tablet 800 mg PO DAILY gabapentin 600 mg tablet 600 mg PO TID Patient Comments: 0700, 1400, 2100 acetaminophen 500 mg capsule 1,000 mg PO Q6H PRN (Reason: Pain (Scale Score 1-3)) valsartan 40 mg tablet 20 mg PO BID metoprolol succinate 25 mg tablet extended release 24 hr 25 mg PO BID torsemide 20 mg tablet 80 mg PO BID Patient Comments: TAKE 2 TABLETS BY MOUTH IN THE MORNING AND 1 TABLET AT NIGHT fluticasone propionate 50 mcg/actuation spray,suspension 1 spray intranasal DAILY Rx Instructions: administer into each nostril methocarbamol 750 mg tablet 750 mg PO TID PRN (Reason: Spasms) Qty: 90 3RF Rx Instructions: PRN epinephrine 0.3 mg/0.3 mL auto-injector 0.3 mg IM ONCE PRN (Reason: Allergic Reaction) Qty: 1 11RF sumatriptan succinate 100 mg tablet See Rx Instructions .ROUTE .COMPLEX Qty: 14 0RF Dose Instruction: TAKE 1 TABLET BY MOUTH ONCE AT ONSET OF MIGRAINE HEADACHE. MAY REPEAT IN 2 HOURS IF NO RELIEF. MAX OF 2 TABLETS PER DAY. Rx Instructions: TAKE 1 TABLET BY MOUTH ONCE AT ONSET OF MIGRAINE HEADACHE. MAY REPEAT IN 2 HOURS IF NO RELIEF. MAX OF 2 TABLETS PER DAY. diazepam 5 mg tablet 5 mg PO BID PRN (Reason: anxiety) 30 Days Qty: 60 0RF Trintellix 20 mg tablet 20 mg PO DAILY 30 Days Qty: 30 2RF quetiapine 25 mg tablet 25 mg PO BEDTIME MDD 50MG Qty: 40 0RF Rx Instructions: OK to repeat dose if not sleeping within 1 hour lidocaine 5 % Ointment 1 applic TOPICAL TID PRN (Reason: pain) ketotifen fumarate [Zaditor] 0.025 % (0.035 %) Drops 1 drp OPHTHALMIC (EYE) DAILY potassium chloride 20 mEq tablet extended release 40 meq PO DAILY Qty: 20 0RF sennosides [senna] 8.6 mg Tablet 17.2 mg PO BEDTIME PRN (Reason: Constipation) Rx Instructions: 1-2 tabs diphenhydramine HCl [Benadryl] 25 mg Capsule 75 mg PO DAILY PRN (Reason: Allergy Symptoms) omeprazole 40 mg Capsule,Delayed Release(Dr/Ec) 40 mg PO BID epinephrine [EpiPen 2-Juliocesar] 0.3 mg/0.3 mL auto-injector 0.3 mg IM Q5-15M PRN (Reason: anaphylaxis) Qty: 2 2RF Rx Instructions: do not exceed 3 doses per episode budesonide-formoterol [Symbicort] 80-4.5 mcg/actuation HFA aerosol inhaler 1 puff inhalation BID Qty: 10.2 0RF methylprednisolone 4 mg tablet 4 mg PO PRN PRN (Reason: Shortness Of Breath) hydrocodone-acetaminophen 5-325 mg tablet 1 tab PO Q4-6H PRN (Reason: pain) Qty: 20 0RF dextromethorphan-guaifenesin 5-50 mg/5 mL liquid 20 ml PO Q4-6H PRN (Reason: cough) Qty: 118 0RF (DME) Xeroform Petrolatum Dressing 5 X 9 bandage See Rx Instructions .Route Qty: 50 0RF Rx Instructions: As directed Referrals: Casimiro Parks MD [Primary Care Provider] - Stand Alone Forms: Patient Portal/API ED Sign-out <Allyssa Limon DO - Last Filed: 12/24/22 07:14> Cosign ED Attending Coscurlyature Attestation: I was immediately available in the department for consultation. Documentation has been reviewed.
[2022-12-23 12:42] LABS: Add Manual Diff / Slide Review NO; Alanine Aminotransferase 27 IU/L (<35); Albumin Globulin Ratio 1.4 (1.0-2.8); Alkaline Phosphatase 93 U/L (38-126); Aspartate Aminotransferase 28 IU/L (14-36); BUN Creatinine Ratio 27.6 (6-22); Basophils Absolute Auto 100 /uL (0-100); Basophils Percent Auto 1.6 % (0-2); Bilirubin Total 0.4 mg/dL (0.2-1.3); Blood Urea Nitrogen 32 mg/dL (7-17); Calcium 9.9 mg/dL (8.4-10.2); Carbon Dioxide 27 mmol/L (22-32); Chloride 105 mmol/L (98-107); Eosinophils Absolute Auto 400 /uL (0-450); Eosinophils Percent Auto 5.9 % (2-4); Estimated Glomerular Filt Rate 51 mL/min (>60); Globulin 2.9 g/dL (1.7-4.1); Glucose 109 mg/dL (80-110); HEMOLYSIS < 15 (0-50); Hematocrit 31.4 % (36-46); Hemoglobin 10.7 g/dL (12.0-16.0); Lymphocytes Absolute Auto 1500 /uL (1100-4500); Mean Corpuscular HGB Conc 34.2 % (30-36); Mean Corpuscular Hemoglobin 28.8 PG (26-34); Mean Corpuscular Volume 84.4 fL (80-100); Monocytes Absolute Auto 600 /uL (0-900); Monocytes Percent Auto 10.5 % (3-14); Neutrophils Absolute Auto 3500 /uL (1500-7000); Platelet Count 267 X10^3/uL (150-400); Potassium 5.3 mmol/L (3.4-5.1); Red Blood Cell Count 3.72 X10^6/uL (4.0-5.2); Red Cell Distribution Width 17.5 % (11.6-14.8); Sodium 138 mmol/L (137-145); Total Protein 6.9 g/dL (6.3-8.2); White Blood Cell Count 6.1 X10^3/uL (4.5-11.0)
[2022-12-23 12:43] LABS: D Dimer 2577 ng/ml (<500)
[2022-12-23 12:54] LABS: NT-proBNP (BNP-Adult 18+) 41 pg/mL (<125); Troponin I < 0.012 ng/mL (0.01-0.034)
--- NOTE | 2022-12-23 12:58 | PC.NURSE ---
ambulatory to room 10
[2022-12-23] MEDS: methylPREDNISolone 125 MG/2 ML VIAL IV (13:14)
[2022-12-23] MEDS: diphenhydrAMINE 50 MG/ML VIAL IV (13:14)
--- NOTE | 2022-12-23 13:30 | DI.CT.S_ITS ---
PROCEDURE: CT ANGIO CHEST PE PROTOCOL INDICATIONS: Elevated d-dimer and SOB TECHNIQUE: After the administration of intravenous contrast, 2 mm thick sections acquired from the pulmonary apices to the posterior costophrenic angles. MIP reformats of the arterial vasculature were utilized. For radiation dose reduction, the following was used: automated exposure control, adjustment of mA and/or kV according to patient size. COMPARISON: [facility], CT, CT ANGIO CHEST PE PROTOCOL, 03/02/2021, 14:17. FINDINGS: Image quality: Excellent. Pulmonary arteries: Pulmonary arteries are normal in size, and demonstrate no intraluminal filling defects to suggest central pulmonary embolism. Lungs and pleura: Mild peripheral atelectasis and infiltrate noted in the right lower lobe and middle lobe. Mediastinum: Heart size is normal, without pericardial effusion. No mediastinal or hilar adenopathy. Thoracic aorta is normal in caliber and enhancement. Small hiatal hernia Bones and chest wall: Left humeral instrumentation. Normal thyroid. Abdomen: Visualized upper abdominal solid organs appear normal in the early arterial phase of enhancement. IMPRESSION: No evidence of pulmonary embolism, aortic dissection or aneurysm. Small peripheral atelectasis and or infiltrate right lower and middle lobes. Small hiatal hernia Approved by: Carlton Ashley M.D. on 12/23/2022 at 13:58
--- NOTE | 2022-12-23 13:30 | PC.NURSE ---
care assumed prior to medications given; pt awake, alert, oriented, no acute medical distress noted.
--- NOTE | 2022-12-23 15:03 | PC.NURSE ---
ambulatory to and from [facility] in no acute distress
--- NOTE | 2022-12-23 15:32 | PC.NURSE ---
cab called for patient since she cannot contact her granddaughter. pt states she is homless living in a hotel and does not have any money. [facility] voucher provided. [facility] HOUSE [phone]. Pt ambulatory. sitting in waiting area vestibule. NAD.
== END 2022-12-23 15:30 | disposition home or self-care (01) ==
PROVIDERS: Emergency Provider Physician Assistant Medical; PCP Internal Medicine
DX: J98.11 Atelectasis (principal); E87.5 Hyperkalemia; R05.9 Cough, unspecified
CPT/HCPCS: 36415; 71045; 71275; 80053; 83880; 84484; 85025; 85379; 93005; 93010; 96374; 96375; 99284; J1200; J2930

== ENCOUNTER 2022-12-28 00:22 | Emergency (ER) | payer OTHER, MEDICAID, SELFPAY ==
[2022-08-04 16:38] VITALS: BMI 34.9
--- NOTE | 2022-12-28 00:51 | PC.NURSE ---
Pt checked into department, and immediately started yelling at the front office spec lady telling her we needed to get her back immediately or she was going to lay on the floor. Went to get patient for triage and she started following into the triage room, than she sat in a chair in the [place] refusing to continue into triage room. I waited a couple minutes at door waiting for patient to come to room. Pt refused. Went to check chart. Walked out patient laying on floor. At this time grabbed a second nurse, Tia RN, to stand by. Pt with eyes closed and refusing to open them. Tia informed her she was going touch her and touched her face, she immediately responded and demanded we get her off the floor. We asked her to help and she immediately started yelling at us that she did want our help and not to touch her. She was told if we still needed to get her into the triage room so we could help her. Both CNAs came out to assist, one asked to help and she told him go away don't touch me. The other asked pt has her how she could help in a calm voice. Pt immediately turned on dough mixing machine operator and Dont be sassy then when IT ANALYST started to walk away and pt yelled Don't smile at me again, bitch, or else Pt was told multiple times to not yell at staff that we were there to help her. She than got on the phone and called 911 and turned I am going to get you all in trouble [facility] arrived will pt was still yelling at staff and stating she wanted to leave. [facility] assisted pt from floor and into w/c, Talked to patient without nursing staff. [facility] offered pt cold weather longterm or to be continue to be seen in the Emergency department. Pt immediately walked away from [facility] refusing every thing.
== END 2022-12-28 01:42 | disposition left against medical advice (07) ==
PROVIDERS: Emergency Provider Emergency Medicine; PCP Internal Medicine
DX: R68.89 Other general symptoms and signs (principal)